=== PATIENT | male | born 1975 | race Caucasian/White ===

== ENCOUNTER → 2017-11-20 16:45 | Outpatient (CLI) | payer OTHER, SELFPAY ==
[2017-11-20 16:48] LABS: Microscopic, Urine URINE MICROSCOPIC (MICROSCOPIC)
[2017-11-20 17:12] LABS: Appearance,Urine CLEAR (Clear); Bilirubin,Urine Negative (Negative); Blood, Urine TRACE-L (Negative); Color,Urine YELLOW (Yellow); Glucose,Urine (UA) TRACE (Negative); Ketones,Urine Negative (Negative); Leukocyte Esterase,Urine 1+ (Negative); Nitrate,Urine Negative (Negative); Protein,Urine Negative (Negative); Specific Gravity, Urine 1.025 (1.005-1.030); Urobilinogen,Urine 0.2 EU/dl (0.2)
[2017-11-20 18:12] LABS: Bacteria,Urine 1+ /lpf
== END ==
PROVIDERS: PCP Family Medicine; Visit Provider Family Medicine
DX: R30.0 Dysuria (principal)
CPT/HCPCS: 81001; 87086

== ENCOUNTER → 2018-11-13 09:45 | Outpatient (CLI) | payer OTHER, SELFPAY ==
--- NOTE | 2018-11-13 | ECG_ITS ---
APPROVED REPORT Exam: Resting ECG HR:80 bpm ECG Measurements Heart Rate 80 AXES WV 170 P 9 QRSd 92 QRS 219 QT 378 T 0 QTc 435 <Conclusion> Normal sinus rhythm Right superior axis deviation Isolated q in iii Abnormal ECG Electronically signed by : Chris Abarca, 11/13/2018 17:39:16
--- NOTE | 2018-11-13 09:54 | CT_ITS ---
PROCEDURE: CT ABDOMEN PELVIS WO/W CON CLINICAL INDICATION: NEOPLASM LT KIDNEY Possible left renal mass COMPARISON: CT ABDOMEN PELVIS W CON from 11/08/2018 TECHNIQUE: IV Contrast: 75ML OPTIRAY 350 Oral Contrast none Axial images obtained with sagittal and coronal reformats. All CT scans at the facility use one or more dose reduction, viz: automated exposure control, ma/kV adjustment per patient size (including targeted exams where dose is matched to indication, i.e. head), or iterative reconstruction technique. FINDINGS: Patient came back for repeat scanning with delayed imaging for possible left renal mass. Once again there is noted some cortical lobularity of the left kidney with some faint calcification along the lower pole laterally and at least 2 stones in the lower pole of the left kidney measuring 7 and 8 mm. The exam is somewhat limited secondary to patient's body habitus. The there is contour deformity involving the left kidney that may only be secondary to scarring. A definite renal mass is not demonstrated. There is some scattered areas of decreased attenuation within the lower pole of the left kidney secondary to some mild caliectasis which does fill in on the delayed images. IMPRESSION: There is some scarring of the left kidney with some cortical calcification laterally and left nephrolithiasis. Low-density changes present in the lower pole of the left kidney are somewhat felt to be related to caliectasis. Would recommend a 3 month follow-up without and with contrast with delayed images to confirm short term stability. Dictated by: Rico Brown MD 11/13/2018 11:04 Signed by: <Electronically signed by Rico Brown MD in [facility]> 11/19/2018 07:27
[2018-11-13 10:45] LABS: Basophils # 0.1 K/mm3 (0-0.2); Basophils % 0.9 % (0.1-2.0); Eosinophils # 0.1 K/mm3 (0.0-0.4); Hematocrit 48.6 % (42.0-52.0); Hemoglobin 16.2 g/dL (14.1-18.0); Lymphocytes % 28.1 % (10-50); Mean Corpuscular HGB Conc 33.4 g/dL (31.8-35.4); Mean Corpuscular Volume 92.6 fl (80-94); Mean Platelet Volume 7.7 fl (7.4-10.4); Monocytes # 0.4 K/mm3 (0.1-1.0); Neutrophils # 4.5 K/mm3 (1.8-7.8); Neutrophils % 64.1 % (37.0-80.0); Platelet Count 271 K/mm3 (142-424); Red Blood Count 5.24 M/mm3 (4.60-6.20); Red Cell Distribution Width 13.9 % (11.5-17.5); White Blood Count 7.1 K/mm3 (4.8-10.8)
[2018-11-13 11:47] LABS: Alanine Aminotransferase 49 U/L (12-78); Albumin Level 3.5 gm/dL (3.4-5.0); Albumin/Globulin Ratio 0.9 (1.1-1.8); Alkaline Phosphatase 85 U/L (46-116); Anion Gap 11.4 mEq/L (5-15); Aspartate Amino Transferase 34 U/L (15-37); Blood Urea Nitrogen 17 mg/dL (7-18); Calcium 9.1 mg/dL (8.5-10.1); Carbon Dioxide 27 mmol/L (21.0-32.0); Chloride 98 mmol/L (98-107); Creatinine,Serum 0.93 mg/dL (0.70-1.30); Estimated Glomerular Filt Rate 88 ml/min (>60); GFR (African American) 107 ML/MIN (>60); Globulin 3.9 gm/dl (1.3-3.2); Glucose 228 mg/dL (74-106); Potassium 4.4 mmoL/L (3.5-5.1); Sodium 132 mmol/L (136-145); Total Protein,Serum 7.4 gm/dL (6.4-8.2)
== END ==
PROVIDERS: Otolaryngology; PCP Family Medicine; Visit Provider Family Medicine
DX: Z01.818 Encounter for other preprocedural examination (principal); D41.02 Neoplasm of uncertain behavior of left kidney
CPT/HCPCS: 36415; 74178; 80053; 85025; 93005; Q9967

== ENCOUNTER → 2018-11-26 14:32 | Outpatient (CLI) | payer OTHER, SELFPAY ==
--- NOTE | 2018-11-26 14:42 | CT_ITS ---
PROCEDURE: CT SOFT TISSUE NECK W CON CLINICAL HISTORY: lipoma- left neck Soft tissue mass behind the left ear at the base of the skull enlarging. Lip cancer COMPARISON: No exams were available for comparison TECHNIQUE: Oral Contrast: None IV Contrast: 75 mL Optiray 350 Axial images obtained with sagittal and coronal reformats. All CT scans at the facility use one or more dose reduction, viz: automated exposure control, ma/kV adjustment per patient size (including targeted exams where dose is matched to indication, i.e. head), or iterative reconstruction technique. FINDINGS: A BB is placed along the lateral aspect of the left neck posterior in inferior to the external ear. This velez the area of clinical concern. At this region there is some asymmetric prominence of the subcutaneous fat suggesting lipomatosis involvement. A discrete mass which is well outlined however is not identified. No adenopathy evident at this region. No soft tissue mass. There are some scattered small nodes in the neck. No abscess. The visualized parotid and submandibular glands are prominent but symmetric with no obvious mass. The epiglottis and glottic region have an unremarkable appearance. The nasopharynx is unremarkable. IMPRESSION: 1. Asymmetric prominence of the subcutaneous fat corresponding to the area of clinical concern in the left neck below and posterior to the ear suggesting lipomatosis involvement without discrete margin. 2. No dominant adenopathy, mass or abscess. Dictated by: Rico Brown MD 11/27/2018 08:03 Electronically signed by Rico Brown MD in [facility] 11/27/2018 08:03
[2018-11-26 15:18] LABS: Blood Urea Nitrogen 12 mg/dL (7-18); Creatinine,Serum 1.04 mg/dL (0.70-1.30); Estimated Glomerular Filt Rate 78 ml/min (>60); GFR (African American) 94 ML/MIN (>60)
== END ==
PROVIDERS: PCP Family Medicine; Visit Provider Otolaryngology
DX: Z01.818 Encounter for other preprocedural examination (principal); D17.0 Benign lipomatous neoplasm of skin and subcutaneous tissue of head, face and neck
CPT/HCPCS: 36415; 70491; 82565; 84520; Q9967

== ENCOUNTER → 2019-09-24 13:21 | Outpatient (CLI) | payer OTHER, SELFPAY ==
[2019-09-24 13:52] LABS: Blood Urea Nitrogen 10 mg/dl (9-20); Estimated Glomerular Filt Rate 122 ml/min (>60); GFR (African American) 148 ML/MIN (>60)
== END ==
PROVIDERS: Visit Provider Otolaryngology
DX: I89.0 Lymphedema, not elsewhere classified (principal)
CPT/HCPCS: 36415; 82565; 84520

== ENCOUNTER → 2019-09-24 13:29 | Outpatient (CLI) | payer OTHER, SELFPAY ==
--- NOTE | 2019-09-24 13:30 | CT_ITS ---
PROCEDURE: CT SOFT TISSUE NECK W CON CLINICAL HISTORY: hx malignant neoplasm Soft tissue nodule left neck, history of lip cancer COMPARISON: CT SOFT TISSUE NECK W CON from 11/26/2018 TECHNIQUE: Oral Contrast: None IV Contrast: 75 mL Optiray 350 Axial images obtained with sagittal and coronal reformats. All CT scans at the facility use one or more dose reduction, viz: automated exposure control, ma/kV adjustment per patient size (including targeted exams where dose is matched to indication, i.e. head), or iterative reconstruction technique. FINDINGS: The nasopharynx has an unremarkable appearance. There is mild prominence of the soft tissues of the hypopharynx possibly due to nondistention. This did have a similar appearance on the previous exam. Direct visualization suggested. The epiglottis and glottic region has an unremarkable appearance. There is a 3.2 x 2 cm lobulated the lesion in the left submandibular region. This is anterior to the submandibular gland. The internal density approaches that of water. There is a thin peripheral capsule/rim. This may represent a necrotic lymph node.. No other areas of adenopathy are identified. The thyroid gland has an unremarkable appearance. The lung apices are clear. There is mild mucosal thickening of the left maxillary sinus. There is a lucency in the right maxilla at the alveolar ridge measuring 7 mm and an additional lucency in the left maxilla at the alveolar ridge measuring 4 mm. These may be due to small periapical abscesses. An additional small lucency noted in the left maxilla at 3 mm. There are multiple caries IMPRESSION: Palpable abnormality corresponds to a 3 x 2 cm lobulated lesion in the left submandibular gland with internal hypodensity and a thin peripheral capsule/rim. This may represent a necrotic lymph node. Mild prominence of the soft tissues of the hypopharynx possibly due to nondistention and may be better evaluated with direct visualization. Suspect periapical abscesses of the maxilla with multiple caries Dictated by: Rico Brown MD 09/25/2019 10:56 Electronically signed by Rico Brown MD in [place] 09/25/2019 10:56
== END ==
PROVIDERS: PCP Family Medicine; Visit Provider Otolaryngology
DX: K11.20 Sialoadenitis, unspecified (principal)
CPT/HCPCS: 70491; Q9967

== ENCOUNTER → 2019-10-13 09:23 | Outpatient (CLI) | payer OTHER, SELFPAY ==
--- NOTE | 2019-10-13 09:55 | ECG_ITS ---
APPROVED REPORT Exam: Resting ECG HR:92 bpm ECG Measurements Heart Rate 92 AXES AL 162 P 20 QRSd 92 QRS 205 QT 380 T 2 QTc 469 <Conclusion> Normal sinus rhythm Right superior axis deviation Incomplete right bundle branch block Abnormal ECG Electronically signed by : Shahram Epperson, 10/15/2019 20:09:23
[2019-10-13 10:24] LABS: Basophils # 0.1 K/mm3 (0-0.2); Basophils % 1.6 % (0.1-2.0); Eosinophils # 0.2 K/mm3 (0.0-0.4); Eosinophils % 2.3 % (0.1-12.0); Hematocrit 50.2 % (42.0-52.0); Hemoglobin 17.7 g/dL (14.1-18.0); Lymphocytes # 2.3 K/mm3 (0.7-4.5); Lymphocytes % 28.5 % (10-50); Mean Corpuscular HGB Conc 35.3 g/dL (31.8-35.4); Mean Corpuscular Hemoglobin 32.2 pg (27.0-31.2); Mean Corpuscular Volume 91.3 fl (80-94); Mean Platelet Volume 8.6 fl (7.4-10.4); Monocytes # 0.4 K/mm3 (0.1-1.0); Monocytes % 4.7 % (1.7-9.3); Neutrophils # 5.2 K/mm3 (1.8-7.8); Neutrophils % 62.9 % (37.0-80.0); Platelet Count 271 K/mm3 (142-424); Red Cell Distribution Width 14.1 % (11.5-17.5); White Blood Count 8.2 K/mm3 (4.8-10.8)
[2019-10-13 11:19] LABS: Chloride 100 mmol/L (98-107); Potassium 4.2 mmoL/L (3.5-5.1); Sodium 135 mmol/L (136-145)
[2019-10-13 11:22] LABS: Anion Gap 16.2 mEq/L (5-15); Blood Urea Nitrogen 13 mg/dl (9-20); Calcium 9.5 mg/dl (8.4-10.2); Carbon Dioxide 23 mmol/L (22.0-30.0); Estimated Glomerular Filt Rate 91 ml/min (>60); GFR (African American) 110 ML/MIN (>60); Glucose 162 mg/dl (74-100)
[2019-10-13 12:53] LABS: Coronavirus 19 IgG Antibody Negative (Negative); Coronavirus 19 IgM Antibody Negative (Negative)
== END ==
LOC: LAB 09:28 → RT 09:41
PROVIDERS: PCP Family Medicine; Visit Provider Otolaryngology
DX: Z01.818 Encounter for other preprocedural examination (principal); C79.9 Secondary malignant neoplasm of unspecified site
CPT/HCPCS: 36415; 80048; 85025; 86328; 93005

== ENCOUNTER 2019-10-14 11:02 | Observation (INO) | payer OTHER, SELFPAY ==
[2019-10-12 10:13] VITALS: BMI 53.4
[2019-10-14] VITALS (19 sets, daily range): BP systolic 101–175; BP diastolic 58–88; PULSE 78–104; RESP 10–20; TEMP 36.4–36.7; O2SAT 89–98
[2019-10-14 08:19] LABS: POC Glucose,Bedside 174 (70-110)
--- NOTE | 2019-10-14 09:31 | P.PN_ITS ---
[facility] Anesthesia Checklist - Structural Data Admitted From: Home Planned Operative Procedure/s: excision neoplasm neck Consent for Planned Operative Procedure(s) Verified: Yes - Additional verifications Anesthesia Reactions: No Hx Blood Transfusions: No Blood Transfusion Reaction: No - Airway Assessment C-Spine Mobility Assessed: Yes TMJ Mobility Assessed: Yes Dentition: Poor Dentition - Neurological Assessment Level of Consciousness: Awake, Alert, Appropriate - Anesthesia Plan Anesthesia Risk discussed: Yes Anesthesia Plan: Verified ASA Class: III Anesthesia Type: General [facility] History I have reviewed the patient's past medical history: Yes Medical History: Reports:: Diabetes Mellitus Type 2, Hyperlipidemia, Hypertension, Kidney Stones Denies:: Cancer, Diabetes Mellitus Type 1, Internal Pacemaker, MRSA, Seizures *Have you ever received a pneumonia vaccine?: No *Have you received a flu vaccine this season?: No Other Medical History: Denies: Blood Transfusion Reaction Anesthesia experience/problems:: none Other Surgeries: Yes: Hernia Repair, Skin Cancer Excision, Other. No: Pacemaker Amputation: No Fractures: No - *Social History Last grade of school completed: 9th or 10th Smoking Status: Never smoker Alcohol Intake: never Substance Use Type: denies use *Occupational Status:: employed Housing: house Household Members: spouse *Travel in the last 8 weeks: None Family Hx:: Hyperlipidemia, Hypertension, No significant family history
--- NOTE | 2019-10-14 10:43 | HMH.ANESI ---
[facility] Anesthesia Record Part I Intake, IV Amount: 1,800 Estimated blood loss (mL): 0 Urine output (mL): 0 Blood Pressure: 101/62 SaO2: 92 Pulse Rate: 92 Respiratory Rate: 18 Temperature: 98 F Patient is:: Awake, Stable Stable to PACU at:: 10:40
--- NOTE | 2019-10-14 11:59 | HMH.HP ---
*Admission Date: 10/14/19 <Saadia Rees 10/14/19 12:02> *Chief complaint: left neck mass removal <Saadia Rees 10/14/19 12:02> *History of present illness: Mr. 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 He subsequently developed a swollen left submandibular gland that was concerning d/t his history of cancer of the lip. Dr. Meyers removed this gland today and pathology is pending. He wanted him admitted overnight for monitoring. <Saadia Rees 10/14/19 13:08> [facility] History I have reviewed the patient's past medical history: Yes <Saadia Rees 10/14/19 12:02> Medical History: Reports:: Cancer (squamous cell carcinoma of the lip), Diabetes Mellitus Type 2, Hyperlipidemia, Hypertension, Kidney Stones Denies:: Diabetes Mellitus Type 1, Internal Pacemaker, MRSA, Seizures <Saadia Rees 10/14/19 12:02> *Have you ever received a pneumonia vaccine?: No <Saadia Rees 10/14/19 12:02> *Have you received a flu vaccine this season?: No <Saadia Rees 10/14/19 12:02> Other Medical History: Denies: Blood Transfusion Reaction <Saadia Rees 10/14/19 12:02> Anesthesia experience/problems:: none <Saadia Rees 10/14/19 12:02> Other Surgeries: Yes: Hernia Repair, Skin Cancer Excision, Other. No: Pacemaker <Saadia Rees 10/14/19 12:02> Amputation: No <Saadia Rees 10/14/19 12:02> Fractures: No <Saadia Rees 10/14/19 12:02> - *Social History Last grade of school completed: 9th or 10th <Saadia Rees 10/14/19 12:02> Smoking Status: Never smoker <Saadia Rees 10/14/19 12:02> Alcohol Intake: never <Saadia Rees 10/14/19 12:02> Substance Use Type: denies use <Saadia Rees 10/14/19 12:02> *Occupational Status:: employed <Saadia Rees 10/14/19 12:02> Housing: house <Saadia Rees 10/14/19 12:02> Household Members: spouse <NegritaSaadia 10/14/19 12:02> *Travel in the last 8 weeks: None <BenrigoSaadia 10/14/19 12:02> Family Hx:: Hyperlipidemia, Hypertension <NegritaSaadia 10/14/19 12:02> Review of Systems - Constitutional Denies fever(s), Denies weakness <BenrigoSaadia 10/14/19 13:08> - Eyes Denies blurry vision, Denies double vision <NegritaSaadia 10/14/19 13:08> - ENT Denies nasal congestion, Denies sore throat <NegritaSaadia 10/14/19 13:08> - *Cardiovascular Denies chest pain, Denies shortness of breath, Denies rapid, pounding, or irregular heartbeat <NegritaSaadia 10/14/19 13:08> - *Respiratory Denies cough, Denies shortness of breath <NegritaSaadia 10/14/19 13:08> - *Gastrointestinal Reports nausea, Reports vomiting, Denies abdominal pain, Denies loose stools <NegritaSaadia 10/14/19 13:08> - *Genitourinary Denies difficulty urinating, Denies painful urination <NegritaSaadia 10/14/19 13:08> - *Musculoskeletal Denies joint pain <NegritaSaadia 10/14/19 13:08> - *Neurologic Denies headache(s), Denies dizziness, Denies weakness <NegritaSaadia 10/14/19 13:08> Meds Home Medications Medication Instructions Recorded Confirmed Type Glimepiride 4 mg PO DAILY 11/08/18 10/12/19 History Lisinopril/Hydrochlorothiazide 1 tab PO DAILY 11/08/18 10/14/19 History [Lisinopril-Hctz 20-25 mg Tab] Metformin HCl [Metformin HCl ER] 2,000 mg PO DAILY 11/08/18 10/14/19 History Ertugliflozin Pidolate [Steglatro] 15 mg PO DAILY 10/14/19 10/14/19 History <PatriceCarson - 10/14/19 17:20> Allergies Allergy/AdvReac Type Severity Reaction Status Date / Time Penicillins Allergy Verified 10/14/19 08:02 <Carson Ibrahim - 10/14/19 17:20> Exam Vital signs and Labs for Last 24 Hours: Temp Pulse Resp BP Pulse Ox 97.6 F 91 H 20 160/88 H 96 10/14/19 14:25 10/14/19 14:25 10/14/19 14:25 10/14/19 14:25 10/14/19 14:25 Laboratory Results - last 24 hr 10/14/19 08:10: POC Glucose 174 H 10/14/19 16:29: POC Glucose 243 H
--- NOTE | 2019-10-14 12:42 | P.OP_ITS ---
Date of procedure: 10/14/19 Pre-op Diagnosis:: 1. Morbid obesity 2. 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 Left submandibular triangle swelling 4. Diabetes type 2 5. Hypertension Post-op Diagnosis:: Same Procedure performed:: Left submandibular gland excision Surgeon:: Ramírez Meyers MD SUPERVISOR BLAST FURNACE:: Mike Najera Anesthesia: GETA Estimated blood loss (mL): 15 Operative findings:: Same Operative note:: With the patient under general anesthesia he was positioned so that access could be obtained to the left side of the neck and the left lower face. Given his morbid obesity he was very very difficult to position also extend his neck however it was done adequately and a left upper neck incision was marked out 3 cm below the mandible. The Tez was incised there was an extensive amount of adipose tissue overlying the lump in the left submandibular triangle. There was significant enlargement of the left submandibular gland as well. A lesion could be palpated in the left submandibular triangle and dissection was commenced lateral to the left submandibular gland. The anterior belly of the sternomastoid muscle was identified. The left facial artery was identified and ligated. The lump was contained within the submandibular gland and the gland was gradually mobilized. The mass was contained within the anterior middle portion of the gland. It was a cystic lesion and it was mobilized and resected along with the anterior and middle portions of the left submandibular gland. The lingual nerve was identified and preserved. All bleeding was stopped with bipolar cautery and/or ligation and blood loss was less than 20 cc. The specimen was removed and submitted. The wound was thoroughly irrigated. All the bleeding was stopped with cautery. Surgicel snow was placed in the anterior and deep component of the defect. The incision was then closed with 2-0 Vicryl on the platysma and subcutaneous layer. 2-0 Vicryl was used in a subcuticular fashion to close the subdermal area and a Dermabond dressing was applied. A 10 Tone-Jeff drain was placed before the final closure and hooked to suction. There was no active bleeding at the end of the procedure. Dressings were applied and the patient was sent to recovery in good general condition. The patient tolerated the procedure well and was sent to the floor for recovery. Condition: stable Disposition: PACU Complications:: None
--- NOTE | 2019-10-14 13:20 | HMH.PHAINT ---
HOME MEDICATION RECONCILIATION COMPLETED USING LIST FROM HOME PHARMACY
--- NOTE | 2019-10-14 13:21 | HMH.PHAVTE ---
[facility] Pharmacy VTE Monitoring - Patient Demographics Admission date: 10/14/19 Report Date: 10/14/19 Time: 13:21 Allergies/Adverse Reactions: Patient Allergies Penicillins Allergy (Verified 10/14/19 08:02) Height: 1.75 m Weight: 164.2 kg Patient Problems: Current Active Problems History of submandibular gland removal (Acute) Hypertension (Chronic) Hyperlipidemia (Chronic) Type 2 diabetes mellitus (Chronic) - VTE Risk Was VTE Risk Assessment Performed: No VTE Score: 4 VTE Risk Level: Low Risk Clinical Trial Participant: No - Prophylaxis VTE Prophylaxis Ordered?: Yes Types of VTE Prophylaxis: TEDS Knee High Location of Applied Device: Not Applicable
[2019-10-14 16:44] LABS: POC Glucose,Bedside 243 (70-110)
--- NOTE | 2019-10-14 17:23 | PC.NURSE ---
New admit today from PACU. Pt had a left resection of submandibular lymph gland. Dr. Meyers reports that it appears to be a benign cyst. Left neck RACHNA drain to high wall suction noted. Small amount of sanguenous drainage noted. Pain and nausea are his biggest issues. Pt has had 3 episodes of vomiting this shift. Attempted a full liquid diet but immediately got nauseated. Left neck dressing is CDI. LR infusing @ 25mL/hr. Will sit on side of bed to use urinal.
[2019-10-14 20:58] LABS: POC Glucose,Bedside 220 (70-110)
--- NOTE | 2019-10-14 22:20 | PC.NURSE ---
275 ML URINE OUTPUT NOTED DARK YELLOW AND CLEAR, PER URINAL. 200 ML GREEN EMESIS NOTED PER EMESIS BAG.
[2019-10-15] VITALS: BP 122/70; PULSE 100; RESP 16; TEMP 36.4; O2SAT 92
[2019-10-15 05:04] VITALS: BP 120/70; PULSE 92; RESP 18; TEMP 36.4; O2SAT 96
[2019-10-15 05:06] VITALS: BMI 52.2
--- NOTE | 2019-10-15 05:46 | HMH.ANESII ---
[facility] Anesthesia Record Part II Discharge Time: 11:10 Destination: Medical Surgical Department PACU nurse assessment reviewed?: Yes Patient Condition:: Good Anesthesia Complications:: None Swallowing reflex intact?: Yes Cyanosis?: No Blood Pressure: 111/67 Pulse Rate: 85 Temperature: 98 F Mental Status: Alert & Oriented Pain level:: 0 Nausea and/or vomitting:: None Intake, IV Amount: 0
[2019-10-15 05:47] VITALS: BP 111/67; PULSE 85; TEMP 36.6
--- NOTE | 2019-10-15 06:51 | PC.NURSE ---
0645-RACHNA drain pulled at this time. No bleeding noted. telfa/tegaderm dressing applied.
[2019-10-15 08:00] VITALS: BP 142/98; PULSE 90; RESP 20; TEMP 36.4; O2SAT 94
--- NOTE | 2019-10-15 08:17 | HMH.ACPN2 ---
<Saadia Rees - Last Filed: 10/15/19 08:17> Internal Medicine - PN: Subj *Date: 10/15/19 *Time: 08:17 Interval history: Patient is feeling better this morning. He slept decently last night after getting Phenergan. He states Phenergan works much better for nausea and vomiting than Zofran. His pain is controlled. His drain was removed this morning and is anxious to go home. Exam Vital signs and Labs for Last 24 Hours: Temp Pulse Resp BP Pulse Ox 98 F 85 18 111/67 96 10/15/19 05:47 10/15/19 05:47 10/15/19 05:04 10/15/19 05:47 10/15/19 05:04 Laboratory Results - last 24 hr 10/14/19 08:10: POC Glucose 174 H 10/14/19 16:29: POC Glucose 243 H 10/14/19 20:39: POC Glucose 220 H I & O for Last 24 hours: Intake & Output 10/12/19 10/13/19 10/14/19 10/15/19 11:59 11:59 11:59 11:59 Intake Total 1800 / 1800 413 / 413 Output Total 2481 / 2481 Balance 1800 / 1800 -2067 / -2067 Weight 362 lb 352 lb 6 oz - Constitutional no acute distress - *Routine Respiratory Exam Present: CTA bilaterally - *Routine Cardiovascular Exam Present: RRR - *Routine Abdominal Exam Present: soft, normoactive bowel sounds. Absent: tenderness - *Routine Skin Exam Present: warm. Absent: rash Comments: dressing in place on left side of neck, drain has been removed - *Routine Neurological Exam Present: alert, oriented X3 Assessment and Plan (1) History of submandibular gland removal Current visit: Yes Status: Acute Category: Surgical Code(s): Z98.890 - Other specified postprocedural states; Z90.89 - Acquired absence of other organs (2) Hypertension Current visit: Yes Status: Chronic Category: Medical Code(s): I10 - Essential (primary) hypertension (3) Hyperlipidemia Current visit: Yes Status: Chronic Category: Medical Code(s): E78.5 - Hyperlipidemia, unspecified (4) Type 2 diabetes mellitus Current visit: Yes Status: Chronic Category: Medical Code(s): E11.9 - Type 2 diabetes mellitus without complications (5) Morbid obesity Current visit: Yes Status: Acute Category: Medical Code(s): E66.01 - Morbid (severe) obesity due to excess calories (6) Vomiting Current visit: Yes Status: Acute Category: Medical Code(s): R11.10 - Vomiting, unspecified - Assessment and plan all Dx Assessment and Plan for all problems:: Patient has done well postop. Possible discharge home today. <Carson Ibrahim - Last Filed: 10/15/19 08:31> Internal Medicine - PN: Subj *Date: 10/15/19 *Time: 08:31 Exam Vital signs and Labs for Last 24 Hours: Temp Pulse Resp BP Pulse Ox 98 F 85 18 111/67 96 10/15/19 05:47 10/15/19 05:47 10/15/19 05:04 10/15/19 05:47 10/15/19 05:04 Laboratory Results - last 24 hr 10/14/19 16:29: POC Glucose 243 H 10/14/19 20:39: POC Glucose 220 H I & O for Last 24 hours: Intake & Output 10/12/19 10/13/19 10/14/19 10/15/19 23:59 23:59 23:59 23:59 Intake Total 1937 / 1937 276 / 276 Output Total 1579 / 1829 902 / 902 Balance 358 / 108 -626 / -626 Weight 362 lb 352 lb 6 oz Assessment and Plan (1) History of submandibular gland removal Current visit: Yes Status: Acute Category: Surgical Code(s): Z98.890 - Other specified postprocedural states; Z90.89 - Acquired absence of other organs (2) Hypertension Current visit: Yes Status: Chronic Category: Medical Code(s): I10 - Essential (primary) hypertension (3) Hyperlipidemia Current visit: Yes Status: Chronic Category: Medical Code(s): E78.5 - Hyperlipidemia, unspecified (4) Type 2 diabetes mellitus Current visit: Yes Status: Chronic Category: Medical Code(s): E11.9 - Type 2 diabetes mellitus without complications (5) Morbid obesity Current visit: Yes Status: Acute Category: Medical Code(s): E66.01 - Morbid (severe) obesity due to excess calories (6) Vomiting Current visit: Yes Status: Acute Naomi
--- NOTE | 2019-10-15 10:37 | HMH.DCSUM ---
General - General Admission date:: 10/14/19 Discharge date: 10/15/19 HPI HPI: Mr. 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 He subsequently developed a swollen left submandibular gland that was concerning d/t his history of cancer of the lip. Dr. Meyers removed this gland today and pathology is pending. He wanted him admitted overnight for monitoring. Hospital Course Hospital Course: The patient was initially started on Lortab for pain and began vomiting after taking this. He received some Zofran and was started on morphine. His pain improved. He was able to eat a full liquid diet without difficulty. He remained slightly nauseated and received some Phenergan. He stated this worked much better than the Zofran. He was kept overnight and his drain was removed on 10/15/2019. He was stable to be discharged home with a new prescription for Phenergan. He will follow-up with Dr. Meyers for pathology results. Objective Vital signs: Temp Pulse Resp BP Pulse Ox 97.5 F L 90 20 142/98 H 94 L 10/15/19 08:00 10/15/19 08:00 10/15/19 08:00 10/15/19 08:00 10/15/19 08:00 Narrative: - Constitutional no acute distress - *Routine HEENT Exam Head: Present: normocephalic Eye: Present: EOMI, PERRL ENT: Present: mucous membranes dry - *Routine Neck Exam Present: supple. Absent: lymphadenopathy Comments: clean dry dressing over the left side of the neck with drain tube in place - *Routine Respiratory Exam Present: CTA bilaterally - *Routine Cardiovascular Exam Present: RRR - *Routine Abdominal Exam Present: soft, normoactive bowel sounds. Absent: tenderness - *Routine Extremities Exam Absent: cyanosis, clubbing, edema - *Routine Skin Exam Present: warm. Absent: rash - *Routine Neurological Exam Present: alert, oriented X3 Results Labs on day of discharge: Labs from last 24 hours 10/14/19 10/14/19 20:39 16:29 POC Glucose 220 H 243 H DS: Diagnosis - Discharge Diagnosis (1) History of submandibular gland removal Status: Acute (2) Hypertension Status: Chronic (3) Hyperlipidemia Status: Chronic (4) Type 2 diabetes mellitus Status: Chronic (5) Morbid obesity Status: Acute (6) Vomiting Status: Acute Discharge Plan - Patient Discharge Instructions ACTIVITY: Continue current activity DIET: continue same diet Patient Instructions: How to Care for a Surgical Wound, High Cholesterol, Type 2 Diabetes, DI for Skin Lesion Removal, DI for High Blood Pressure, DI for Surgical Site Infection - Follow up Plan Follow up with: Ramírez Meyers MD [Staff Physician] - 10/21/19 3:15 pm Disposition: Home, Self-Half-Way Medications: Home Medications Medication Instructions Recorded Confirmed Type Glimepiride 4 mg PO DAILY 11/08/18 10/12/19 History Lisinopril/Hydrochlorothiazide 1 tab PO DAILY 11/08/18 10/14/19 History [Lisinopril-Hctz 20-25 mg Tab] Metformin HCl [Metformin HCl ER] 2,000 mg PO DAILY 11/08/18 10/14/19 History Ertugliflozin Pidolate [Steglatro] 15 mg PO DAILY 10/14/19 10/14/19 History Promethazine HCl 12.5 mg PO Q6HP PRN #12 tab 10/15/19 Rx Prescriptions/Medication Reconciliation: New Promethazine HCl 12.5 mg PO Q6HP PRN #12 tab PRN Reason: Nausea And Vomiting Continued Metformin HCl [Metformin HCl ER] 2,000 mg PO DAILY Lisinopril/Hydrochlorothiazide [Lisinopril-Hctz 20-25 mg Tab] 1 tab PO DAILY Glimepiride 4 mg PO DAILY Ertugliflozin Pidolate [Steglatro] 15 mg PO DAILY - Problem Reconciliation Problems Reviewed?: Yes
[2019-10-19 08:28] LABS: POC Glucose,Bedside 524 (70-110)
[2019-10-19 08:28] LABS: POC Glucose,Bedside 183 (70-110)
== END 2019-10-15 09:30 | disposition home or self-care (01) ==
LOC: 2ND 11:05
PROVIDERS: Admitting Provider Family Medicine; PCP Family Medicine; Visit Provider Otolaryngology
PROC: (CPT 42440; principal; 2019-10-14 08:45)
DX: C08.0 Malignant neoplasm of submandibular gland (principal); E11.9 Type 2 diabetes mellitus without complications; I10 Essential (primary) hypertension; E66.01 Morbid (severe) obesity due to excess calories; Z68.43 Body mass index [BMI] 50.0-59.9, adult
CPT/HCPCS: 42440; 82962; 96374; 96375; G0378; J2405

== ENCOUNTER → 2019-12-06 15:42 | Outpatient (CLI) | payer OTHER, SELFPAY ==
[2019-12-06 16:02] LABS: Basophils # 0.1 K/mm3 (0-0.2); Basophils % 1.3 % (0.1-2.0); Eosinophils # 0.3 K/mm3 (0.0-0.4); Eosinophils % 2.7 % (0.1-12.0); Hematocrit 52.2 % (42.0-52.0); Lymphocytes # 2.7 K/mm3 (0.7-4.5); Lymphocytes % 27.1 % (10-50); Mean Corpuscular HGB Conc 34.5 g/dL (31.8-35.4); Mean Corpuscular Hemoglobin 31.5 pg (27.0-31.2); Mean Corpuscular Volume 91.1 fl (80-94); Mean Platelet Volume 8.6 fl (7.4-10.4); Monocytes # 0.6 K/mm3 (0.1-1.0); Monocytes % 5.7 % (1.7-9.3); Neutrophils # 6.3 K/mm3 (1.8-7.8); Neutrophils % 63.2 % (37.0-80.0); Platelet Count 269 K/mm3 (142-424); Red Blood Count 5.74 M/mm3 (4.60-6.20)
[2019-12-06 17:27] LABS: Alanine Aminotransferase 55 U/L (12-78); Albumin Level 4.5 g/dl (3.5-5.0); Albumin/Globulin Ratio 1.3 (1.1-1.8); Alkaline Phosphatase 109 U/L (38-126); Anion Gap 17.9 mEq/L (5-15); Aspartate Amino Transferase 64 U/L (17-59); Bilirubin,Total 1.3 mg/dl (0.2-1.3); Blood Urea Nitrogen 12 mg/dl (9-20); Carbon Dioxide 25 mmol/L (22.0-30.0); Chloride 98 mmol/L (98-107); Estimated Glomerular Filt Rate 105 ml/min (>60); GFR (African American) 126 ML/MIN (>60); Globulin 3.6 g/dL (1.3-3.2); Glucose 114 mg/dl (74-100); Potassium 3.9 mmoL/L (3.5-5.1); Sodium 137 mmol/L (136-145); Total Protein,Serum 8.1 g/dl (6.3-8.2)
[2019-12-06 20:57] LABS: Hemoglobin 18.1 g/dL (14.1-18.0)
== END ==
PROVIDERS: Visit Provider Internal Medicine Medical Oncology
DX: Z85.828 Personal history of other malignant neoplasm of skin (principal)
CPT/HCPCS: 36415; 80053; 85025

== ENCOUNTER 2019-12-08 09:35 | Outpatient (CLI) | payer OTHER, SELFPAY ==
[2019-12-08] VITALS (13 sets, daily range): BP systolic 122–157; BP diastolic 70–89; PULSE 84–91; RESP 18; TEMP 36.2; O2SAT 97–98
== END 2019-12-08 16:47 | disposition home or self-care (01) ==
LOC: INF 09:39
PROVIDERS: Visit Provider Internal Medicine Medical Oncology
DX: C76.0 Malignant neoplasm of head, face and neck (principal)
CPT/HCPCS: 96413; 96415; J9060; Q0166

== ENCOUNTER → 2019-12-15 14:27 | Outpatient (CLI) | payer OTHER, SELFPAY ==
[2019-12-15 14:45] LABS: Basophils % 0.3 % (0.1-2.0); Eosinophils # 0.2 K/mm3 (0.0-0.4); Eosinophils % 1.5 % (0.1-12.0); Hematocrit 50.7 % (42.0-52.0); Lymphocytes # 1.9 K/mm3 (0.7-4.5); Lymphocytes % 16.5 % (10-50); Mean Corpuscular HGB Conc 35.5 g/dL (31.8-35.4); Mean Corpuscular Hemoglobin 31.9 pg (27.0-31.2); Mean Corpuscular Volume 89.8 fl (80-94); Mean Platelet Volume 8.7 fl (7.4-10.4); Monocytes # 0.4 K/mm3 (0.1-1.0); Monocytes % 3.1 % (1.7-9.3); Neutrophils % 78.5 % (37.0-80.0); Platelet Count 280 K/mm3 (142-424); Red Blood Count 5.65 M/mm3 (4.60-6.20); White Blood Count 11.5 K/mm3 (4.8-10.8)
[2019-12-15 15:30] LABS: Chloride 96 mmol/L (98-107); Potassium 3.7 mmoL/L (3.5-5.1); Sodium 130 mmol/L (136-145)
[2019-12-15 15:33] LABS: Alanine Aminotransferase 103 U/L (12-78); Albumin Level 3.9 g/dl (3.5-5.0); Albumin/Globulin Ratio 1.3 (1.1-1.8); Alkaline Phosphatase 85 U/L (38-126); Anion Gap 15.7 mEq/L (5-15); Aspartate Amino Transferase 59 U/L (17-59); Blood Urea Nitrogen 20 mg/dl (9-20); Carbon Dioxide 22 mmol/L (22.0-30.0); Estimated Glomerular Filt Rate 105 ml/min (>60); GFR (African American) 126 ML/MIN (>60); Total Protein,Serum 6.9 g/dl (6.3-8.2)
[2019-12-15 15:34] LABS: Calcium 9.8 mg/dl (8.4-10.2); Glucose 294 mg/dl (74-100)
== END ==
PROVIDERS: Visit Provider Internal Medicine Medical Oncology
DX: C76.0 Malignant neoplasm of head, face and neck (principal)
CPT/HCPCS: 36415; 80053; 85025

== ENCOUNTER → 2019-12-28 15:45 | Outpatient (CLI) | payer OTHER, SELFPAY ==
[2019-12-28 16:13] LABS: Basophils # 0.1 K/mm3 (0-0.2); Eosinophils # 0.2 K/mm3 (0.0-0.4); Eosinophils % 3.4 % (0.1-12.0); Hematocrit 50.9 % (42.0-52.0); Hemoglobin 17.2 g/dL (14.1-18.0); Lymphocytes # 1.4 K/mm3 (0.7-4.5); Lymphocytes % 29.6 % (10-50); Mean Corpuscular HGB Conc 33.8 g/dL (31.8-35.4); Mean Corpuscular Hemoglobin 31.4 pg (27.0-31.2); Mean Corpuscular Volume 92.8 fl (80-94); Mean Platelet Volume 7.7 fl (7.4-10.4); Monocytes # 0.5 K/mm3 (0.1-1.0); Monocytes % 9.9 % (1.7-9.3); Neutrophils # 2.6 K/mm3 (1.8-7.8); Platelet Count 218 K/mm3 (142-424); Red Blood Count 5.48 M/mm3 (4.60-6.20); White Blood Count 4.6 K/mm3 (4.8-10.8)
[2019-12-28 17:01] LABS: Chloride 99 mmol/L (98-107); Sodium 137 mmol/L (136-145)
[2019-12-28 17:04] LABS: Alanine Aminotransferase 81 U/L (12-78); Albumin Level 4.3 g/dl (3.5-5.0); Albumin/Globulin Ratio 1.3 (1.1-1.8); Alkaline Phosphatase 85 U/L (38-126); Aspartate Amino Transferase 79 U/L (17-59); Blood Urea Nitrogen 12 mg/dl (9-20); Carbon Dioxide 27 mmol/L (22.0-30.0); Estimated Glomerular Filt Rate 105 ml/min (>60); GFR (African American) 126 ML/MIN (>60); Globulin 3.2 g/dL (1.3-3.2); Total Protein,Serum 7.5 g/dl (6.3-8.2)
[2019-12-28 17:05] LABS: Calcium 9.6 mg/dl (8.4-10.2); Glucose 107 mg/dl (74-100)
== END ==
PROVIDERS: Visit Provider Internal Medicine Medical Oncology
DX: C00.1 Malignant neoplasm of external lower lip (principal); C00-D49 Neoplasms; K11.8 Other diseases of salivary glands
CPT/HCPCS: 36415; 80053; 85025

== ENCOUNTER 2019-12-29 09:25 | Outpatient (CLI) | payer OTHER, SELFPAY ==
[2019-12-29] VITALS (16 sets, daily range): BP systolic 98–124; BP diastolic 59–78; PULSE 70–81; RESP 18–20; TEMP 36.2; O2SAT 95
== END 2019-12-29 16:19 | disposition home or self-care (01) ==
LOC: INF 09:27
PROVIDERS: Visit Provider Internal Medicine Medical Oncology
DX: Z51.11 Encounter for antineoplastic chemotherapy (principal); C76.0 Malignant neoplasm of head, face and neck
CPT/HCPCS: 96413; 96415; J9060; Q0166

== ENCOUNTER → 2020-01-06 11:30 | Outpatient (CLI) | payer OTHER, SELFPAY ==
[2020-01-06 11:49] LABS: Basophils # 0.1 K/mm3 (0-0.2); Basophils % 1.5 % (0.1-2.0); Eosinophils # 0.1 K/mm3 (0.0-0.4); Eosinophils % 1.2 % (0.1-12.0); Hematocrit 50.8 % (42.0-52.0); Hemoglobin 17.3 g/dL (14.1-18.0); Lymphocytes # 1.3 K/mm3 (0.7-4.5); Lymphocytes % 18.3 % (10-50); Mean Corpuscular Hemoglobin 31.2 pg (27.0-31.2); Mean Corpuscular Volume 91.9 fl (80-94); Mean Platelet Volume 8.5 fl (7.4-10.4); Monocytes # 0.4 K/mm3 (0.1-1.0); Monocytes % 6.2 % (1.7-9.3); Neutrophils # 5.2 K/mm3 (1.8-7.8); Neutrophils % 72.8 % (37.0-80.0); Platelet Count 223 K/mm3 (142-424); Red Blood Count 5.53 M/mm3 (4.60-6.20); Red Cell Distribution Width 13.9 % (11.5-17.5); White Blood Count 7.1 K/mm3 (4.8-10.8)
[2020-01-06 11:56] LABS: Potassium 3.6 mmoL/L (3.5-5.1); Sodium 136 mmol/L (136-145)
[2020-01-06 11:58] LABS: Blood Urea Nitrogen 48 mg/dl (9-20)
[2020-01-06 11:59] LABS: Alanine Aminotransferase 122 U/L (12-78); Albumin Level 4.6 g/dl (3.5-5.0); Albumin/Globulin Ratio 1.4 (1.1-1.8); Alkaline Phosphatase 72 U/L (38-126); Aspartate Amino Transferase 81 U/L (17-59); Bilirubin,Total 1.3 mg/dl (0.2-1.3); Carbon Dioxide 22 mmol/L (22.0-30.0); Estimated Glomerular Filt Rate 31 ml/min (>60); GFR (African American) 37 ML/MIN (>60); Globulin 3.3 g/dL (1.3-3.2); Glucose 86 mg/dl (74-100); Total Protein,Serum 7.9 g/dl (6.3-8.2)
[2020-01-06 13:43] LABS: Anion Gap 18.6 mEq/L (5-15); Chloride 99 mmol/L (98-107)
== END ==
PROVIDERS: Visit Provider Internal Medicine Medical Oncology
DX: C76.0 Malignant neoplasm of head, face and neck (principal)
CPT/HCPCS: 36415; 80053; 85025

== ENCOUNTER 2020-01-07 11:25 | Outpatient (CLI) | payer OTHER, SELFPAY ==
[2020-01-07 11:45] VITALS: BP 105/67; PULSE 78; RESP 18; TEMP 35.8; O2SAT 100
[2020-01-07 12:45] VITALS: BP 114/64; PULSE 74; RESP 20
== END 2020-01-07 12:50 | disposition home or self-care (01) ==
LOC: INF 11:26
PROVIDERS: Visit Provider Internal Medicine Medical Oncology
DX: C76.0 Malignant neoplasm of head, face and neck (principal)
CPT/HCPCS: 96360

== ENCOUNTER 2020-01-10 11:34 | Outpatient (CLI) | payer OTHER, SELFPAY ==
[2020-01-10 11:36] VITALS: BMI 48.4
[2020-01-10 11:55] VITALS: BP 110/65; PULSE 79; RESP 18; TEMP 36.6; O2SAT 97
[2020-01-10 12:06] LABS: Chloride 94 mmol/L (98-107); Potassium 3.8 mmoL/L (3.5-5.1); Sodium 130 mmol/L (136-145)
[2020-01-10 12:09] LABS: Blood Urea Nitrogen 35 mg/dl (9-20); Creatinine Clearance Estimated 82 mL/min (50-200); Estimated Glomerular Filt Rate 72 ml/min (>60); GFR (African American) 88 ML/MIN (>60)
[2020-01-10 12:10] LABS: Anion Gap 18.8 mEq/L (5-15); Calcium 9.7 mg/dl (8.4-10.2); Carbon Dioxide 21 mmol/L (22.0-30.0); Glucose 141 mg/dl (74-100)
[2020-01-10 12:25] VITALS: BP 105/68; PULSE 80; RESP 16; O2SAT 97
[2020-01-10 12:55] VITALS: BP 112/64; PULSE 74; RESP 16; TEMP 36.6; O2SAT 98
== END 2020-01-10 13:00 | disposition home or self-care (01) ==
LOC: INF 11:34
PROVIDERS: Visit Provider Internal Medicine Medical Oncology
DX: C76.0 Malignant neoplasm of head, face and neck (principal)
CPT/HCPCS: 80048; 96360

== ENCOUNTER → 2020-02-02 15:28 | Outpatient (CLI) | payer OTHER, SELFPAY ==
[2020-02-02 16:00] LABS: Basophils % 0.7 % (0.1-2.0); Eosinophils # 0.1 K/mm3 (0.0-0.4); Eosinophils % 2.2 % (0.1-12.0); Hemoglobin 13.4 g/dL (14.1-18.0); Lymphocytes % 25.4 % (10-50); Mean Corpuscular HGB Conc 33.4 g/dL (31.8-35.4); Mean Corpuscular Hemoglobin 30.4 pg (27.0-31.2); Monocytes # 0.2 K/mm3 (0.1-1.0); Neutrophils # 2.6 K/mm3 (1.8-7.8); Neutrophils % 65.7 % (37.0-80.0); Platelet Count 188 K/mm3 (142-424); Red Blood Count 4.39 M/mm3 (4.60-6.20); Red Cell Distribution Width 16.2 % (11.5-17.5)
[2020-02-02 17:00] LABS: Alanine Aminotransferase 58 U/L (12-78); Albumin/Globulin Ratio 1.3 (1.1-1.8); Alkaline Phosphatase 73 U/L (38-126); Anion Gap 13.7 mEq/L (5-15); Aspartate Amino Transferase 47 U/L (17-59); Blood Urea Nitrogen 15 mg/dl (9-20); Calcium 9.7 mg/dl (8.4-10.2); Carbon Dioxide 24 mmol/L (22.0-30.0); Chloride 104 mmol/L (98-107); Estimated Glomerular Filt Rate 72 ml/min (>60); GFR (African American) 88 ML/MIN (>60); Glucose 124 mg/dl (74-100); Potassium 3.7 mmoL/L (3.5-5.1); Sodium 138 mmol/L (136-145)
== END ==
PROVIDERS: Visit Provider Internal Medicine Medical Oncology
DX: C76.0 Malignant neoplasm of head, face and neck (principal)
CPT/HCPCS: 36415; 80053; 85025

== ENCOUNTER → 2020-03-30 11:32 | Outpatient (CLI) | payer OTHER, SELFPAY ==
[2020-03-30 12:02] LABS: Basophils # 0.1 K/mm3 (0-0.2); Basophils % 1.4 % (0.1-2.0); Eosinophils # 0.2 K/mm3 (0.0-0.4); Hematocrit 40.7 % (42.0-52.0); Hemoglobin 12.9 g/dL (14.1-18.0); Lymphocytes # 1.2 K/mm3 (0.7-4.5); Lymphocytes % 25.2 % (10-50); Mean Corpuscular HGB Conc 31.6 g/dL (31.8-35.4); Mean Corpuscular Hemoglobin 31.1 pg (27.0-31.2); Mean Corpuscular Volume 98.5 fl (80-94); Mean Platelet Volume 7.2 fl (7.4-10.4); Monocytes # 0.2 K/mm3 (0.1-1.0); Monocytes % 4.3 % (1.7-9.3); Neutrophils # 2.9 K/mm3 (1.8-7.8); Neutrophils % 64.1 % (37.0-80.0); Platelet Count 362 K/mm3 (142-424); Red Blood Count 4.13 M/mm3 (4.60-6.20); Red Cell Distribution Width 16.2 % (11.5-17.5); White Blood Count 4.6 K/mm3 (4.8-10.8)
[2020-03-30 12:32] LABS: Alanine Aminotransferase 22 U/L (12-78); Albumin Level 3.9 g/dl (3.5-5.0); Albumin/Globulin Ratio 1.2 (1.1-1.8); Alkaline Phosphatase 75 U/L (38-126); Anion Gap 11.7 mEq/L (5-15); Aspartate Amino Transferase 35 U/L (17-59); Bilirubin,Total 1.2 mg/dl (0.2-1.3); Blood Urea Nitrogen 8 mg/dl (9-20); Calcium 9.2 mg/dl (8.4-10.2); Carbon Dioxide 26 mmol/L (22.0-30.0); Chloride 103 mmol/L (98-107); Estimated Glomerular Filt Rate 104 ml/min (>60); GFR (African American) 126 ML/MIN (>60); Globulin 3.3 g/dL (1.3-3.2); Glucose 130 mg/dl (74-100); Potassium 3.7 mmoL/L (3.5-5.1); Sodium 137 mmol/L (136-145); Total Protein,Serum 7.2 g/dl (6.3-8.2)
== END ==
PROVIDERS: Visit Provider Internal Medicine Medical Oncology
DX: C76.0 Malignant neoplasm of head, face and neck (principal)
CPT/HCPCS: 36415; 80053; 85025

== ENCOUNTER 2020-05-11 15:00 | Outpatient (RCR) | payer OTHER, SELFPAY ==
--- NOTE | 2020-04-06 15:22 | HMH.PTOPWND ---
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 He reports no c/o pain currently, but does have intermittent sharp, shooting pains in the L side of his jaw . He reports 28 radiation treatments, and 2 chemo treatments. He reports no c/o difficulty with swallowing or breathing. Subjective Subjective No tenderness to palpation at this time, but noticable puffy edema to L side of the jaw line and chin. Lymphedema Eval Classification of Lymphedema Secondary Lymphedema Yes Stemmer's sign Stemmer's Sign no Stage of Lymphedema Lymphedema stages Stage I (Pitting edema, reduces w/ elevation, no fibrosis) Skin Changes Dry Skin Yes Redness Yes Other Changes Yes: decreased hair growth Radiation Therapy Has received radiation therapy yes Chemo Therapy Has received chemo therapy yes Affected Extremities Areas Affected by Lymphedema/Edema Head/Neck Manual Lymphatic Drainage Treatment Area MLD Treatment Area Head/Neck Wound Problems/Impairments Impairments Problems/Impairmments Increased Edema,Lymphedema Present,Subjective C/O Pain, Impaired Self Care/Self Management Prognosis Rehab Potential Good Clinical Impression Consistent with Diagnosis Yes Short Term Goals Number of Weeks 4 Decrease Edema Yes Patient to Understand Lymphedema Yes Treatment and Exercises [employer] Goals Number of Weeks 8 Decrease Lymphedema Yes Decrease Subjective C/O Pain Yes: 0/10 Patient to be Ind w/ HEP Yes Patient to be Ind w/ [place] Yes Compression Garments Patient to Adhere Lymphedema Precautions Yes Outpatient Therapy Plan of Care Treatment Plan May Include Therapeutic Exercise Including Home Yes
== END 2020-05-11 15:05 | disposition home or self-care (01) ==
LOC: PT 15:00
PROVIDERS: PCP Family Medicine; Visit Provider Internal Medicine Medical Oncology
DX: C76.0 Malignant neoplasm of head, face and neck (principal)
CPT/HCPCS: 97110; 97140; 97162; 97760

== ENCOUNTER → 2020-06-08 13:20 | Outpatient (CLI) | payer OTHER, SELFPAY ==
[2020-06-08 13:56] LABS: Basophils # 0.1 K/mm3 (0-0.2); Eosinophils # 0.2 K/mm3 (0.0-0.4); Eosinophils % 2.2 % (0.1-12.0); Hematocrit 49.1 % (42.0-52.0); Hemoglobin 16.7 g/dL (14.1-18.0); Lymphocytes # 1.6 K/mm3 (0.7-4.5); Lymphocytes % 23.3 % (10-50); Mean Corpuscular Hemoglobin 30.8 pg (27.0-31.2); Mean Corpuscular Volume 90.6 fl (80-94); Mean Platelet Volume 8.4 fl (7.4-10.4); Monocytes # 0.3 K/mm3 (0.1-1.0); Monocytes % 4.9 % (1.7-9.3); Neutrophils # 4.8 K/mm3 (1.8-7.8); Neutrophils % 68.5 % (37.0-80.0); Platelet Count 205 K/mm3 (142-424); Red Blood Count 5.42 M/mm3 (4.60-6.20); Red Cell Distribution Width 13.9 % (11.5-17.5)
[2020-06-08 14:34] LABS: Alanine Aminotransferase 22 U/L (12-78); Albumin Level 4.4 g/dl (3.5-5.0); Albumin/Globulin Ratio 1.3 (1.1-1.8); Alkaline Phosphatase 91 U/L (38-126); Anion Gap 14.2 mEq/L (5-15); Aspartate Amino Transferase 27 U/L (17-59); Bilirubin,Total 0.9 mg/dl (0.2-1.3); Blood Urea Nitrogen 13 mg/dl (9-20); Calcium 9.8 mg/dl (8.4-10.2); Carbon Dioxide 24 mmol/L (22.0-30.0); Chloride 101 mmol/L (98-107); Estimated Glomerular Filt Rate 104 ml/min (>60); GFR (African American) 126 ML/MIN (>60); Globulin 3.3 g/dL (1.3-3.2); Glucose 235 mg/dl (74-100); Potassium 4.2 mmoL/L (3.5-5.1); Sodium 135 mmol/L (136-145); Total Protein,Serum 7.7 g/dl (6.3-8.2)
[2020-06-08 15:03] LABS: Thyroid Stimulating Hormone 1.84 uIU/mL (0.465-4.68)
[2020-06-08 15:38] LABS: Vitamin B12 403 pg/mL (239-931)
== END ==
PROVIDERS: Visit Provider Internal Medicine Medical Oncology
DX: C76.0 Malignant neoplasm of head, face and neck (principal)
CPT/HCPCS: 36415; 80053; 82607; 82746; 84443; 85025

== ENCOUNTER → 2020-09-04 10:22 | Outpatient (CLI) | payer OTHER, SELFPAY ==
[2020-09-04 10:35] LABS: Basophils # 0.1 K/mm3 (0-0.2); Basophils % 0.9 % (0.1-2.0); Eosinophils # 0.2 K/mm3 (0.0-0.4); Eosinophils % 2.4 % (0.1-12.0); Hematocrit 49.4 % (42.0-52.0); Hemoglobin 17.2 g/dL (14.1-18.0); Lymphocytes # 1.5 K/mm3 (0.7-4.5); Lymphocytes % 17.2 % (10-50); Mean Corpuscular HGB Conc 34.8 g/dL (31.8-35.4); Mean Corpuscular Hemoglobin 31.3 pg (27.0-31.2); Mean Platelet Volume 8.4 fl (7.4-10.4); Monocytes # 0.4 K/mm3 (0.1-1.0); Monocytes % 4.8 % (1.7-9.3); Neutrophils # 6.4 K/mm3 (1.8-7.8); Neutrophils % 74.7 % (37.0-80.0); Platelet Count 238 K/mm3 (142-424); Red Blood Count 5.48 M/mm3 (4.60-6.20); Red Cell Distribution Width 14.8 % (11.5-17.5); White Blood Count 8.5 K/mm3 (4.8-10.8)
[2020-09-04 10:45] LABS: Chloride 103 mmol/L (98-107); Potassium 4.4 mmoL/L (3.5-5.1); Sodium 135 mmol/L (136-145)
[2020-09-04 10:47] LABS: Blood Urea Nitrogen 15 mg/dl (9-20)
[2020-09-04 10:48] LABS: Alanine Aminotransferase 46 U/L (12-78); Albumin Level 4.6 g/dl (3.5-5.0); Albumin/Globulin Ratio 1.3 (1.1-1.8); Alkaline Phosphatase 97 U/L (38-126); Anion Gap 14.4 mEq/L (5-15); Aspartate Amino Transferase 44 U/L (17-59); Carbon Dioxide 22 mmol/L (22.0-30.0); Estimated Glomerular Filt Rate 80 ml/min (>60); GFR (African American) 97 ML/MIN (>60); Globulin 3.5 g/dL (1.3-3.2); Total Protein,Serum 8.1 g/dl (6.3-8.2)
[2020-09-04 10:49] LABS: Calcium 9.3 mg/dl (8.4-10.2); Glucose 181 mg/dl (74-100)
--- NOTE | 2020-09-04 11:05 | CT_ITS ---
PROCEDURE: CT CHEST W CON CT soft tissue neck with IV contrast CLINCAL INDICATION: MAGLINANT NEOPLASM HEAD,FACE AND NECK COMPARISON: CT CT SOFT TISSUE NECK W CON from 09/24/2019 and 11/26/2018 TECHNIQUE: IV Contrast: 75ml Isovue 370 Axial images obtained with sagittal and coronal reformats. All CT scans at the facility use one or more dose reduction, viz: automated exposure control, ma/kV adjustment per patient size (including targeted exams where dose is matched to indication, i.e. head), or iterative reconstruction technique. FINDINGS: CT soft tissue neck shows a few small nonspecific bilateral cervical chain lymph nodes. The previously noted cystic lesion in the left submandibular region has substantially decreased in size, now measuring about 1.3 centimeters x 7 millimeters. No other areas of adenopathy are noted. Skull base is normal. Mastoid air cells are patent. No intracranial abnormality. Orbits and globes are normal. Paranasal sinuses are patent. Salivary glands are normal. Epiglottis and aryepiglottic fold regions are normal. No evidence of peritonsillar or retropharyngeal fluid collection to suggest abscess. Thyroid gland is normal. Lung apices are normal. Mild diffuse degenerative changes of the cervical spine are noted. CT chest shows a few small non-specific middle mediastinal lymph nodes not pathologically enlarged. Hilar regions grossly appear normal. No enlarged axillary nodes. Thoracic inlet is normal. Thoracic aorta is normal. No pleural effusion or pneumothorax. Heart is not enlarged. No pericardial effusion or thickening. There is a small sub centimeter partially calcified nodule in the left lung base. There is a small subcentimeter pulmonary nodule along the left major fissure. No other discrete pulmonary nodules are noted. Repeat chest CT in 6 months recommended for close follow-up. Images of the upper abdomen show some diffuse fatty infiltration of the visualized liver. No adrenal mass. Several small calcifications noted in the spleen. There are some diffuse degenerative changes of the thoracic spine. No acute bony abnormality. IMPRESSION: Substantial interval decrease in size of the cystic lesion in the left submandibular region now measuring 1.3 centimeters x 7 millimeters. No new areas of lymphadenopathy noted. A few small subcentimeter bilateral cervical chain lymph nodes similar to prior CT. A few small non-specific middle mediastinal lymph nodes. Small subcentimeter pulmonary nodule along the left major fissure. Small partially calcified subcentimeter nodule in the left lung base. Repeat chest CT in 6 months recommended for close follow-up. No adrenal mass. Diffuse fatty infiltration of the visualized liver. Dictated by: Vickey Cintron 09/04/2020 12:19 Vickey Cintron in [facility] 09/04/2020 12:19
== END ==
PROVIDERS: PCP Family Medicine; Visit Provider Internal Medicine Medical Oncology
DX: C76.0 Malignant neoplasm of head, face and neck (principal); C08.0 Malignant neoplasm of submandibular gland
CPT/HCPCS: 36415; 70491; 71260; 80053; 85025; Q9967

== ENCOUNTER → 2021-02-16 11:51 | Outpatient (CLI) | payer OTHER, SELFPAY ==
[2021-02-16 12:07] LABS: Basophils # 0.1 K/mm3 (0-0.2); Basophils % 1.1 % (0.1-2.0); Eosinophils # 0.2 K/mm3 (0.0-0.4); Eosinophils % 2.3 % (0.1-12.0); Hematocrit 49.3 % (42.0-52.0); Hemoglobin 17.3 g/dL (14.1-18.0); Lymphocytes # 1.6 K/mm3 (0.7-4.5); Lymphocytes % 24.5 % (10-50); Mean Corpuscular HGB Conc 35.1 g/dL (31.8-35.4); Mean Corpuscular Hemoglobin 31.8 pg (27.0-31.2); Mean Corpuscular Volume 90.7 fl (80-94); Mean Platelet Volume 8.8 fl (7.4-10.4); Monocytes # 0.3 K/mm3 (0.1-1.0); Monocytes % 5.1 % (1.7-9.3); Neutrophils # 4.4 K/mm3 (1.8-7.8); Neutrophils % 66.9 % (37.0-80.0); Platelet Count 239 K/mm3 (142-424); Red Blood Count 5.44 M/mm3 (4.60-6.20); Red Cell Distribution Width 14.4 % (11.5-17.5); White Blood Count 6.6 K/mm3 (4.8-10.8)
--- NOTE | 2021-02-16 12:11 | CT_ITS ---
PROCEDURE: CT HEAD/BRAIN WO/W CON CLINICAL INDICATION: HEAD AND NECK CANCER COMPARISON: No exams were available for comparison TECHNIQUE: IV Contrast: 100ML Isovue 370 Axial images obtained. All CT scans at the facility use one or more dose reduction, viz: automated exposure control, ma/kV adjustment per patient size (including targeted exams where dose is matched to indication, i.e. head), or iterative reconstruction technique. FINDINGS: No midline shift, mass effect, intracranial hemorrhage, hydrocephalus, or extra-axial fluid collection is evident. No enhancing lesions. The calvarium has an unremarkable appearance. No mastoid effusion or sinus air-fluid level. A BB is placed along the area of palpable concern along the left neck laterally posterior to the ear. No discrete mass evident deep to the BB. In this general region within the deep subcutaneous fat there is a 3 mm nodular density. This is of uncertain clinical significance. Other small nodular densities also present in the neck not at this region possibly due to small lymph nodes.. IMPRESSION: Negative CT head without and with contrast. Dictated by: Rico Brown MD 02/16/2021 14:40 Rico Brown MD in [facility] 02/16/2021 14:40
--- NOTE | 2021-02-16 12:11 | CT_ITS ---
PROCEDURE INFORMATION: Exam: CT Chest Without and With Contrast; Diagnostic Exam date and time: 02/16/2021 12:11 PM Age: 46 years old Clinical indication: Abnormal findings; Lung mass or nodule; Single or solitary nodule; Patient HX: Lt lung nodule 6 months ago; Additional info: Head and neck cancer TECHNIQUE: Imaging protocol: Diagnostic computed tomography of the chest without and with contrast. Radiation optimization: All CT scans at this facility use at least one of these dose optimization techniques: automated exposure control; mA and/or kV adjustment per patient size (includes targeted exams where dose is matched to clinical indication); or iterative reconstruction. Contrast material: ISOVUE; Contrast volume: 75 ml; Contrast route: IV; COMPARISON: CT CHEST W CON 09/04/2020 11:18 AM FINDINGS: Lungs: No pulmonary nodule identified. Calcified granuloma in the left lower lobe Pleural spaces: Unremarkable. No pneumothorax. No pleural effusion. Heart: Unremarkable. No cardiomegaly. No pericardial effusion. Aorta: Unremarkable. No aortic aneurysm. Lymph nodes: Unremarkable. No enlarged lymph nodes. Liver: There is a diffuse increase in hepatic parenchymal echogenicity, consistent with fatty infiltration. Bones/joints: Unremarkable. No acute fracture. Soft tissues: Unremarkable. IMPRESSION: No pulmonary nodule identified.
[2021-02-16 12:25] LABS: Chloride 103 mmol/L (98-107)
[2021-02-16 12:26] LABS: Potassium 4.2 mmoL/L (3.5-5.1); Sodium 136 mmol/L (136-145)
[2021-02-16 12:28] LABS: Alanine Aminotransferase 43 U/L (12-78); Alkaline Phosphatase 106 U/L (38-126); Anion Gap 11.2 mEq/L (5-15); Aspartate Amino Transferase 44 U/L (17-59); Bilirubin,Total 0.9 mg/dl (0.2-1.3); Blood Urea Nitrogen 14 mg/dl (9-20); Carbon Dioxide 26 mmol/L (22.0-30.0); Estimated Glomerular Filt Rate 72 ml/min (>60); GFR (African American) 87 ML/MIN (>60)
[2021-02-16 12:29] LABS: Albumin Level 4.2 g/dl (3.5-5.0); Albumin/Globulin Ratio 1.4 (1.1-1.8); Calcium 9.3 mg/dl (8.4-10.2); Globulin 3.1 g/dL (1.3-3.2); Glucose 304 mg/dl (74-100); Total Protein,Serum 7.3 g/dl (6.3-8.2)
== END ==
PROVIDERS: PCP Family Medicine; Visit Provider Internal Medicine Medical Oncology
DX: C76.0 Malignant neoplasm of head, face and neck (principal)
CPT/HCPCS: 36415; 70470; 71270; 80053; 85025; Q9967

== ENCOUNTER 2024-06-29 11:37 | Emergency (ER) | payer OTHER, SELFPAY ==
[2024-06-29] VITALS (15 sets, daily range): BP systolic 110–136; BP diastolic 47–97; PULSE 67–114; RESP 14–24; TEMP 36.6–36.8; O2SAT 96–98; BMI 29.8
--- NOTE | 2024-06-29 11:45 | PC.NURSE ---
DR CESAR AT BEDSIDE
--- NOTE | 2024-06-29 11:52 | CT_ITS ---
FINAL REPORT TECHNIQUE: Noncontrast exam This study was performed with techniques to keep radiation doses as low as reasonably achievable, (ALARA). Individualized dose reduction techniques using automated exposure control or adjustment of mA and/or kV according to the patient''s size were employed. CLINICAL HISTORY: R flank/low back pain, h/o cancer, h/o stones FINDINGS: Abdomen: There is elevation of the left hemidiaphragm. Mild left basilar atelectasis is identified. There is a small right effusion. Liver, spleen, pancreas and adrenal glands have a normal CT appearance in their limited unenhanced state. Nonobstructing left renal stones are noted, largest measures up to 7 mm. There is mild left renal scarring. No obvious renal mass is present. No ureteral stones are present. There is fluid-filled mildly distended large and small bowel which may be seen with enterocolitis. There is a malpositioned PEG tube. PEG tube is within the abdominal wall. Fibrous track is seen extending from the PEG tube towards the stomach. There is no free air or free fluid. There are surgical changes from lower abdominal hernia repair. Trace free fluid is identified. Pelvis: No distal ureteral stones are seen. The bladder is unremarkable. There is a nonvisualized appendix. IMPRESSION: Mildly distended large and small bowel with fluid and air, may represent enterocolitis or ileus. Malpositioned PEG tube within the abdominal wall. Reviewed, Interpreted and Dictated by Lynn Cha MD Transcribed by Jessica Wharton Authenticated and [facility]
--- NOTE | 2024-06-29 11:52 | CT_ITS ---
FINAL REPORT CLINICAL HISTORY: R flank/low back pain, h/o cancer, h/o stones FINDINGS: CT LUMBAR SPINE TECHNIQUE: Thin section noncontrast axial CT with sagittal reconstructions No fracture is present. Alignment is normal. T12-L1: No canal stenosis. L1-L2: Mild annular disc bulge without canal stenosis. Mild neuroforaminal narrowing. L2-L3: Unremarkable. L3-L4: Mild annular disc bulge. Moderate facet arthropathy. Borderline central canal stenosis and moderate bilateral neuroforaminal narrowing. L4-L5: Moderate annular disc bulge. Advanced facet overgrowth. Severe central canal stenosis and severe neuroforaminal narrowing. L5-S1: Moderate annular disc bulge, partially calcified. Mild central canal stenosis and severe bilateral neuroforaminal narrowing. IMPRESSION: No fracture. Degenerative changes with canal stenosis and neuroforaminal narrowing at L4-5 and L5-S1. This study was performed using automated techniques to achieve radiation exposure as low as reasonably achievable Reviewed, Interpreted and Dictated by Lynn Cha MD Transcribed by Jessica Wharton Authenticated and [facility]
--- NOTE | 2024-06-29 11:59 | ED_ITS ---
Discharge Plan Disposition Patient Disposition: Home, Self-Care Prescriptions Prescriptions: New methocarbamol 500 mg tablet 1,000 mg PO Q8H PRN (Reason: muscle pain and spasm) Qty: 30 0RF levofloxacin 750 mg tablet 750 mg PO DAILY 5 Days Qty: 5 0RF No Action gabapentin 400 mg capsule 400 mg feeding tube TID Qty: 90 2RF docusate sodium 50 mg/5 mL liquid 50 mg PO DAILY Qty: 150 4RF famotidine 20 mg tablet 20 mg PO BID Qty: 60 2RF Trijardy XR 12.5-2.5-1,000 mg tablet, IR - ER, biphasic 24hr PO zolpidem [Ambien] 5 mg tablet 5 mg PO HS PRN (Reason: insomnia) Qty: 30 1RF oxycodone 5 mg tablet See Rx Instructions feeding tube Q6H PRN (Reason: pain) Qty: 60 0RF Rx Instructions: 1-2 via feeding tube every 6 hours PRN; lisinopril-hydrochlorothiazide 1 EACH tablet 1 tab PO DAILY Referrals Follow up/Referrals: Provider,Referral, MD [Referring] - See instructions Activity Restrictions/Add. Instructions Additional Instructions/Restrictions: At this time it was felt you are safe to be discharged home. If new or worsening symptoms please do not hesitate to return the emergency department. You have a possible urinary tract infection which we are treating with an antibiotic called levofloxacin. If you do not pass gas tomorrow presented for continued evaluation. Otherwise please call and schedule appoint with Dr. Ibrahim tell them that you were seen in the emergency department any close follow-up on Friday if possible and Friday at the latest. Please take your medications as prescribed. Clinical Impressions Clinical Impression: Dilated bowel, Acute UTI, PEG tube malfunction Print Language Print Language: Arabic Discharge ED Provider: Mara Schofield General Adult HPI <Mara Schofield DO - Last Filed: 06/29/24 15:08> General Chief complaint: PAIN Stated complaint: BACK PAIN Time Seen by Provider: 06/29/24 11:45 Mode of Arrival: EMS Source of Information: Patient and EMS Description of Symptoms (Recalled from ER Triage Doc. by RN): PT REPORTS LOW BACK PAIN/RIGHT SIDED INTERMITTENTLY X 1 WEEK. EVALUATED BY PCP ON 06/23/24, RECEIVED MUSCLE RELAXER BUT HAS NOT HAD ANY RELIEF. History of Present Illness HPI narrative: This patient is a 49-year-old male with a history of head neck cancer status post resection and radiation, not currently on treatment, PEG tube in place but he has not used it since February, hypertension, hyperlipidemia, type 2 diabetes presenting to the emergency department for evaluation with concern for right- sided low back/flank pain. Patient reports that is been going on for about a week intermittently, and he saw his PCP for this 06/23/2024 and got a muscle relaxer but has not been helping. He notes that he is also had a poor appetite and has been eating or drinking very much. He notes that he cannot use his PEG tube because anytime he put something in it, it comes on around the tube. He notes that he told his doctor that this a long time ago, as it has been going on since February, but he notes that nothing has been done about this. He states that the right flank pain is intermittent, not changed by movement. He notes that he thinks it might be a kidney stone, as it feels similar to when he had a kidney stone in the past. No fevers, nausea, vomiting, changes bowel movements, or urinary symptoms noted. No falls or injuries, no new numbness, tingling, saddle anesthesia, or incontinence. Related Data Home Medications ?Medication ?Instructions ?Recorded ?Confirmed lisinopril 20 1 tab PO DAILY High blood pressure 11/08/18 02/12/24 mg-hydrochlorothiazide 25 mg tablet empagliflozin 12.5 mg-linaglipt PO 11/13/23 02/12/24 2.5 mg-metform ER 1,000 mg tablet,24hr (Trijardy XR) Previous Rx's ?Medication ?Instructions ?Recorded gabapentin 400 mg capsule 400 mg feeding tube TID #90 caps 02/12/24 docusate sodium 50 mg/5 mL oral 50 mg (5 mL) PO DAILY #150 mL 02/13/24 liquid famotidine 20 mg tablet 20 mg PO BID #60 tabs 02/13/24 zolpidem 5 mg tablet (Ambien) 5 mg PO HS PRN insomnia #30 tabs 02/17/24 oxycodone 5 mg tablet See Rx Instructions feeding tube 03/19/24 Q6H PRN pain #60 tabs levofloxacin 750 mg tablet 750 mg PO DAILY UTI 5 days #5 tabs 06/29/24 methocarbamol 500 mg tablet 1,000 mg (2 x 500 mg) PO Q8H PRN 06/29/24 muscle pain and spasm #30 tabs Allergies Allergy/AdvReac Type Severity Reaction Status Date / Time Penicillins Allergy Unknown Verified 06/29/24 11:47 allergy reaction PFSH <Mara Schofield DO - Last Filed: 06/29/24 15:08> [facility] Disclaimer: The information contained in this section may have been updated after the patient was seen, as this information can be updated by other users. 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 current occupational exposures/hazards: No caffeine: Yes Have you lived/traveled outside [place] in past 30 days?: No Contact w/someone who lives/traveled outside US past 30 days?: No Exposure to someone with infectious disease in past 14 days?: No Do you have a fever (greater than 100.4 F or 38 C)?: No Have you tested positive for COVID-19: No Exposed to someone with COVID-19 in past 14 days?: No Do you have a sore throat?: No Do you have a cough?: No Do you have any weakness?: No Do you have any diarrhea?: No Are you experiencing any unusual bleeding?: No Do you have any muscle aches/pain?: No Do you have any abdominal pain?: No Are you experiencing loss of taste or smell?: No Other Medical History Have you received the Flu Vaccine for this season: No Have you received the Pneumonia Vaccine: No <Mara Schofield DO - Last Filed: 06/29/24 15:08> ROS Obtained: Yes All systems reviewed & no additional complaints except as documented Physical Exam <Mara Schofield DO - Last Filed: 06/29/24 15:08> General General appearance: alert and in no apparent distress Head Head exam: atraumatic and normocephalic Eye Eye exam: Present normal appearance, PERRL and EOMI ENT ENT exam: Present normal exam, normal oropharynx, mucous membranes moist and normal external ear exam Neck Neck exam: Present normal inspection, full ROM and trachea midline; Absent tenderness Chest Chest inspection: Present normal inspection and symmetric chest wall rise; Absent tenderness Respiratory Respiratory exam: Present normal lung sounds bilaterally; Absent respiratory distress, wheezes, stridor or accessory muscle use Cardiovascular Cardiovascular exam: Present regular rate and normal rhythm Abdominal Exam Abdominal exam: Present distention and tenderness (mild generalized); Absent guarding or rebound Comment: PEG tube in place with no significant skin changes around site Extremities Exam Extremities exam: Present normal inspection, full ROM and normal capillary refill; Absent tenderness or edema Back Exam Back exam: Present full ROM and CVA tenderness (R) Neurological Exam Neurological exam: Present alert, oriented X3, CN II-XII intact and normal gait; Absent motor sensory deficit Psychiatric Psychiatric exam: Present normal affect and normal mood Skin Skin exam: Present warm and dry Medical Decision Making <Mara Schofield, DO - Last Filed: 06/29/24 15:08> Medical Records Medical records reviewed: Yes I reviewed the patient's medical records. Screening: Per USPSTF and CDC recommendations, given the prevalence of disease in our region, it is our hospital?s policy to screen for HIV and viral Hepatitis for all patients aged 18 and over and those with ongoing risk factors. Sebastien Inquiry Pt receiving controlled substance: No Vital Signs: 06/29/24 11:37 06/29/24 12:35 06/29/24 14:05 Temperature 98.2 F Temperature Source Oral Pulse Rate 82 67 Pulse Rate [Radial] 114 H Respiratory Rate 18 Blood Pressure 114/67 110/92 H Blood Pressure [Right Arm] 121/73 Blood Pressure Mean Blood Pressure Mean [Right Arm] 89 Blood Pressure Source [Right Arm] Automatic Cuff Blood Pressure Position [Right Arm] Sitting 02 Sat by Pulse Oximetry 98 96 98 Oxygen Delivery Method Room Air Room Air Room Air 06/29/24 14:30 06/29/24 15:00 06/29/24 15:30 Temperature Temperature Source Pulse Rate 88 Pulse Rate [Radial] Respiratory Rate 24 14 Blood Pressure 133/87 116/60 112/74 Blood Pressure [Right Arm] Blood Pressure Mean 79 Blood Pressure Mean [Right Arm] Blood Pressure Source [Right Arm] Blood Pressure Position [Right Arm] 02 Sat by Pulse Oximetry 96 97 96 Oxygen Delivery Method Room Air Room Air Room Air 06/29/24 16:01 06/29/24 17:00 06/29/24 17:31 Temperature Temperature Source Pulse Rate Pulse Rate [Radial] Respiratory Rate 18 Blood Pressure 119/61 116/63 119/73 Blood Pressure [Right Arm] Blood Pressure Mean 84 93 100 Blood Pressure Mean [Right Arm] Blood Pressure Source [Right Arm] Blood Pressure Position [Right Arm] 02 Sat by Pulse Oximetry 96 Oxygen Delivery Method Room Air Lab Data Lab results reviewed: Yes I reviewed the patient's lab results. Lab Results 06/29/24 12:05: WBC 10.2, RBC 4.23 L, Hgb 12.0 L, Hct 35.6 L, MCV 84.2, MCH 28.4, MCHC 33.7, RDW 19.0 H, Plt Count 468 H, MPV 10.4, Neut % (Auto) 86.1 H, L ymph % (Auto) 6.2 L, [place] % (Auto) 5.6, Eos % (Auto) 0.5, Baso % (Auto) 0.5, N eut # (Auto) 8.8 H, Lymph # (Auto) 0.6 L, [place] # (Auto) 0.6, Eos # (Auto) 0.1, Baso # (Auto) 0.1, Sodium 134 L, Potassium 3.1 L, Chloride 92 L, Carbon Dioxide 33 H, Anion Gap 12.1, BUN 13, Creatinine 0.70, Estimated Creat Clear 168, Estimated GFR 119, Est GFR ( Amer) 144, Glucose 164 H, Lactate 1.1, Calcium 8.9, Total Bilirubin 1.2, AST 38, ALT 24, Alkaline Phosphatase 75, C- Reactive Protein 180.7 H, Total Protein 7.8, Albumin 3.3 L, Globulin 4.5 H, A lbumin/Globulin Ratio 0.7 L, Lipase 38, Procalcitonin 0.235, HCV Ab HANSA w/Rflx PCR Qn Negative, HIV Ag/Ab Combo Qual Negative 06/29/24 14:05: Urine Color Yellow, Urine Appearance Clear, Urine pH 6.0, Ur Specific Normal 1.020, Urine Protein 1+ A, Urine Glucose (UA) Negative, Urine Ketones 1+, Urine Blood Trace-i, Urine Nitrate Negative, Urine Bilirubin 1+ A, Urine Urobilinogen 0.2, Ur Leukocyte Esterase 2+ A, Urine RBC Occasional, Urine WBC 10-20, Ur Squamous Epith Cells 3-5, Amorphous Sediment Trace, Urine Bacteria Trace 06/29/24 12:05 06/29/24 12:05 Orders (Tests/Meds): ED MEDICATIONS Generic Name Dose Route Start Last Admin Trade Name Frelisbeth PRN Reason Stop Dose Admin Sodium Chloride 10 ml 06/29/24 16:36 06/29/24 16:37 Sodium Chloride 0.9% 10ml Syr (Rad Only) IV 07/29/24 16:35 10 ml NEEDED PRN Administration Maintain IV Site Discontinued Medications Generic Name Dose Route Start Last Admin Trade Name Freq PRN Reason Stop Dose Admin Diatrizoate Meglum/Diatrizoate Sod 30 ml 06/29/24 14:19 06/29/24 14:30 Diatrizoate Flor 66% & Diatrizoate Na 10% 30ml Udc PO 06/29/24 14:20 30 ml ONCE ONE Administration Lactated Ringer's 1,000 mls @ 999 mls/hr 06/29/24 11:52 06/29/24 12:06 Lactated Ringer's 1000 Ml Bag IV 06/29/24 12:52 999 mls/hr .Q1H1M ONE Administration Potassium Chloride/Water 100 mls @ 100 mls/hr 06/29/24 12:41 06/29/24 13:31 Potassium Chloride 10meq/100ml Ivpb IV 06/29/24 13:40 100 mls/hr ONCE ONE Administration Levofloxacin/Dextrose 750 mg in 150 mls @ 100 mls/hr 06/29/24 14:47 06/29/24 15:17 Levofloxacin 750mg/150ml Premix IV 06/29/24 16:16 100 mls/hr ONCE ONE Administration Iopamidol 75 ml 06/29/24 16:36 06/29/24 16:37 Iopamidol-370 (76%);100ml Bottle IV 06/29/24 16:37 75 ml ONCE ONE Administration Ketorolac Tromethamine 15 mg 06/29/24 11:52 06/29/24 12:06 Ketorolac 30mg/Ml Vial IV 06/29/24 11:53 15 mg ONCE ONE Administration Morphine Sulfate 4 mg 06/29/24 11:52 06/29/24 12:07 Morphine 4mg/Ml Syringe IV 06/29/24 11:53 4 mg ONCE ONE Administration Morphine Sulfate 4 mg 06/29/24 15:14 06/29/24 15:17 Morphine 4mg/Ml Syringe IV 06/29/24 15:15 4 mg ONCE ONE Administration Ondansetron HCl 4 mg 06/29/24 11:52 06/29/24 12:06 Ondansetron 4mg/2ml Vial IV 06/29/24 11:53 4 mg ONCE ONE Administration Potassium Chloride 40 meq 06/29/24 12:41 06/29/24 13:30 Potassium Chloride 20meq Tab PO 06/29/24 12:42 40 meq ONCE ONE Administration ORDERS Category Date Time Status CT abdomen pelvis w con Stat Cat Scan 06/29/24 14:[address] abdomen pelvis wo con Stat Cat Scan 06/29/24 11:[address] lumbar spine wo con Stat Cat Scan 06/29/24 11:52 Completed General Surgery Consult [Consult to General Surgery] [ Cons 06/29/24 13:56 Ordered CONS] Stat CRP [C-Reactive Protein] Stat Lab 06/29/24 12:05 Completed Complete Blood Count Auto Diff Stat Lab 06/29/24 12:05 Completed Comprehensive Metabolic Panel Stat Lab 06/29/24 12:05 Completed HIV Combo Stat Lab 06/29/24 12:05 Completed Hepatitis C Ab Qual. W/ RFX Stat Lab 06/29/24 12:05 Completed Lactic Acid Stat Lab 06/29/24 12:05 Completed Lipase Stat Lab 06/29/24 12:05 Completed Procalcitonin Stat Lab 06/29/24 12:05 Completed UA [Urinalysis and Microscopic] Stat Lab 06/29/24 14:05 Completed Blood Culture Stat Micro 06/29/24 15:26 Received Urine Culture Stat Micro 06/29/24 14:10 Received Medical Decision Narrative: In summary, this patient is a 49-year-old male presenting to the Emergency Department for evaluation of right-sided low back pain, poor appetite. Differential diagnoses considered include but are not limited to ureterolithiasis, malignancy, metastatic disease, bowel obstruction, colitis, constipation, intra-abdominal fluid collection musculoskeletal strain/sprain, disc herniation. Ruling out the most morbid conditions drove assessment. It should be noted patient's history includes head and neck cancer as well as hypertension and hyperlipidemia which may not be at goal therapy. This complicates all aspects of care by increasing patient's risk for morbidity. I reviewed patient's past medical records and noted previous oncology evaluations for head neck cancer in the past. I reviewed patient's medical records from and noted he had PEG placed at in January endoscopically by general surgery. On exam, the patient is sitting upright in no acute distress. He notes issues with his PEG tube, but he states that his issues are chronic. He has right CVA tenderness, mild abdominal distention and tenderness, remainder of exam is benign. He is mildly tachycardic but vitals are otherwise reassuring on cardiac telemetry, he is afebrile and nontoxic-appearing. He arrives by EMS who notes that he was stable en route. Workup included CBC, CMP, lipase, CRP, procalcitonin, lactic acid, urinalysis, CT lumbar spine, CT abdomen pelvis without contrast. He was given IV morphine, Zofran, Toradol, and a bolus of IV fluids. I independently interpreted CT scan prior to the radiologist read and noted significant bowel dilatation and distention concerning for possible obstruction. His PEG tube is in his abdominal wall. Please see their read for final interpretation. On further questioning, the patient states that has been having liquid bowel movements every day for the past week. He notes his last solid bowel movement was about 3 to 4 days ago. He notes that he feels like he is bloated with a lot of gas, but he states he is still passing gas. No nausea or vomiting. Labs were obtained that demonstrated reassuring CBC with no significant leukocytosis. He does have very mild anemia but not transfuse well. Chemistry demonstrates mild hyponatremia, hypokalemia with a potassium of 3.1, hypochloremia, elevated CO2. He has a significant elevated CRP. IV potassium repletion was ordered as well as oral potassium. He also was given a bolus of IV fluids. Urinalysis is concerning for infection, so he was given IV Rocephin. Urine culture and blood cultures pending. On reassessment, he is lying in bed in no acute distress. Overall, I was concerned for obstructive process on CT scan with significant bowel dilatation, as well as his passage of only liquid stools, abdominal distention, right flank pain. I also am concerned about his dislodged PEG tube. I had extensive discussion with the patient regarding this, and I advised that complications of procedures are typically managed by the team who performed the procedure, but he adamantly does not want another feeding tube placed and does not want transfer to . He states he would like to have this dealt with here and would just like the tube removed. He has feeding difficulties with decreased oral intake secondary to difficulty swallowing after all of his treatments for head and neck cancer, but he is adamant against no feeding tube and wishes for removal of the feeding tube. I had an interactive discussion with Dr. Gordon who came and pulled the PEG tube at bedside. He recommended CT with oral and IV contrast for follow-through to see if he has an acute obstructive process given the bowel dilatation. This was ordered. Patient care signed out to the oncoming provider, Dr. Rodriguez, pending CT and dispo. <Leander Rodriguez MD - Last Filed: 06/29/24 19:41> Vital Signs: 06/29/24 11:37 06/29/24 12:35 06/29/24 14:05 Temperature 98.2 F Temperature Source Oral Pulse Rate 82 67 Pulse Rate [Radial] 114 H Respiratory Rate 18 Blood Pressure 114/67 110/92 H Blood Pressure [Right Arm] 121/73 Blood Pressure Mean Blood Pressure Mean [Right Arm] 89 Blood Pressure Source [Right Arm] Automatic Cuff Blood Pressure Position [Right Arm] Sitting 02 Sat by Pulse Oximetry 98 96 98 Oxygen Delivery Method Room Air Room Air Room Air 06/29/24 14:30 06/29/24 15:00 06/29/24 15:30 Temperature Temperature Source Pulse Rate 88 Pulse Rate [Radial] Respiratory Rate 24 14 Blood Pressure 133/87 116/60 112/74 Blood Pressure [Right Arm] Blood Pressure Mean 79 Blood Pressure Mean [Right Arm] Blood Pressure Source [Right Arm] Blood Pressure Position [Right Arm] 02 Sat by Pulse Oximetry 96 97 96 Oxygen Delivery Method Room Air Room Air Room Air 06/29/24 16:01 06/29/24 17:00 06/29/24 17:31 Temperature Temperature Source Pulse Rate Pulse Rate [Radial] Respiratory Rate 18 Blood Pressure 119/61 116/63 119/73 Blood Pressure [Right Arm] Blood Pressure Mean 84 93 100 Blood Pressure Mean [Right Arm] Blood Pressure Source [Right Arm] Blood Pressure Position [Right Arm] 02 Sat by Pulse Oximetry 96 Oxygen Delivery Method Room Air Lab Data Lab Results 06/29/24 12:05: WBC 10.2, RBC 4.23 L, Hgb 12.0 L, Hct 35.6 L, MCV 84.2, MCH 28.4, MCHC 33.7, RDW 19.0 H, Plt Count 468 H, MPV 10.4, Neut % (Auto) 86.1 H, L ymph % (Auto) 6.2 L, [place] % (Auto) 5.6, Eos % (Auto) 0.5, Baso % (Auto) 0.5, N eut # (Auto) 8.8 H, Lymph # (Auto) 0.6 L, [place] # (Auto) 0.6, Eos # (Auto) 0.1, Baso # (Auto) 0.1, Sodium 134 L, Potassium 3.1 L, Chloride 92 L, Carbon Dioxide 33 H, Anion Gap 12.1, BUN 13, Creatinine 0.70, Estimated Creat Clear 168, Estimated GFR 119, Est GFR ( Amer) 144, Glucose 164 H, Lactate 1.1, Calcium 8.9, Total Bilirubin 1.2, AST 38, ALT 24, Alkaline Phosphatase 75, C- Reactive Protein 180.7 H, Total Protein 7.8, Albumin 3.3 L, Globulin 4.5 H, A lbumin/Globulin Ratio 0.7 L, Lipase 38, Procalcitonin 0.235, HCV Ab HANSA w/Rflx PCR Qn Negative, HIV Ag/Ab Combo Qual Negative 06/29/24 14:05: Urine Color Yellow, Urine Appearance Clear, Urine pH 6.0, Ur Specific Normal 1.020, Urine Protein 1+ A, Urine Glucose (UA) Negative, Urine Ketones 1+, Urine Blood Trace-i, Urine Nitrate Negative, Urine Bilirubin 1+ A, Urine Urobilinogen 0.2, Ur Leukocyte Esterase 2+ A, Urine RBC Occasional, Urine WBC 10-20, Ur Squamous Epith Cells 3-5, Amorphous Sediment Trace, Urine Bacteria Trace Orders (Tests/Meds): ED MEDICATIONS Generic Name Dose Route Start Last Admin Trade Name Freq PRN Reason Stop Dose Admin Sodium Chloride 10 ml 06/29/24 16:36 06/29/24 16:37 Sodium Chloride 0.9% 10ml Syr (Rad Only) IV 07/29/24 16:35 10 ml NEEDED PRN Administration Maintain IV Site Discontinued Medications Generic Name Dose Route Start Last Admin Trade Name Boyq PRN Reason Stop Dose Admin Diatrizoate Meglum/Diatrizoate Sod 30 ml 06/29/24 14:19 06/29/24 14:30 Diatrizoate Flor 66% & Diatrizoate Na 10% 30ml Udc PO 06/29/24 14:20 30 ml ONCE ONE Administration Lactated Ringer's 1,000 mls @ 999 mls/hr 06/29/24 11:52 06/29/24 12:06 Lactated Ringer's 1000 Ml Bag IV 06/29/24 12:52 999 mls/hr .Q1H1M ONE Administration Potassium Chloride/Water 100 mls @ 100 mls/hr 06/29/24 12:41 06/29/24 13:31 Potassium Chloride 10meq/100ml Ivpb IV 06/29/24 13:40 100 mls/hr ONCE ONE Administration Levofloxacin/Dextrose 750 mg in 150 mls @ 100 mls/hr 06/29/24 14:47 06/29/24 15:17 Levofloxacin 750mg/150ml Premix IV 06/29/24 16:16 100 mls/hr ONCE ONE Administration Iopamidol 75 ml 06/29/24 16:36 06/29/24 16:37 Iopamidol-370 (76%);100ml Bottle IV 06/29/24 16:37 75 ml ONCE ONE Administration Ketorolac Tromethamine 15 mg 06/29/24 11:52 06/29/24 12:06 Ketorolac 30mg/Ml Vial IV 06/29/24 11:53 15 mg ONCE ONE Administration Morphine Sulfate 4 mg 06/29/24 11:52 06/29/24 12:07 Morphine 4mg/Ml Syringe IV 06/29/24 11:53 4 mg ONCE ONE Administration Morphine Sulfate 4 mg 06/29/24 15:14 06/29/24 15:17 Morphine 4mg/Ml Syringe IV 06/29/24 15:15 4 mg ONCE ONE Administration Ondansetron HCl 4 mg 06/29/24 11:52 06/29/24 12:06 Ondansetron 4mg/2ml Vial IV 06/29/24 11:53 4 mg ONCE ONE Administration Potassium Chloride 40 meq 06/29/24 12:41 06/29/24 13:30 Potassium Chloride 20meq Tab PO 06/29/24 12:42 40 meq ONCE ONE Administration ORDERS Category Date Time Status CT abdomen pelvis w con Stat Cat Scan 06/29/24 14:[address] abdomen pelvis wo con Stat Cat Scan 06/29/24 11:[address] lumbar spine wo con Stat Cat Scan 06/29/24 11:52 Completed General Surgery Consult [Consult to General Surgery] [ Cons 06/29/24 13:56 Ordered CONS] Stat CRP [C-Reactive Protein] Stat Lab 06/29/24 12:05 Completed Complete Blood Count Auto Diff Stat Lab 06/29/24 12:05 Completed Comprehensive Metabolic Panel Stat Lab 06/29/24 12:05 Completed HIV Combo Stat Lab 06/29/24 12:05 Completed Hepatitis C Ab Qual. W/ RFX Stat Lab 06/29/24 12:05 Completed Lactic Acid Stat Lab 06/29/24 12:05 Completed Lipase Stat Lab 06/29/24 12:05 Completed Procalcitonin Stat Lab 06/29/24 12:05 Completed UA [Urinalysis and Microscopic] Stat Lab 06/29/24 14:05 Completed Blood Culture Stat Micro 06/29/24 15:26 Received Urine Culture Stat Micro 06/29/24 14:10 Received Medical Decision Narrative: In summary, this patient is a 49-year-old male presenting to the Emergency Department for evaluation of right-sided low back pain, poor appetite. Differential diagnoses considered include but are not limited to ureterolithiasis, malignancy, metastatic disease, bowel obstruction, colitis, constipation, intra-abdominal fluid collection musculoskeletal strain/sprain, disc herniation. Ruling out the most morbid conditions drove assessment. It should be noted patient's history includes head and neck cancer as well as hypertension and hyperlipidemia which may not be at goal therapy. This complicates all aspects of care by increasing patient's risk for morbidity. I reviewed patient's past medical records and noted previous oncology evaluations for head neck cancer in the past. I reviewed patient's medical records from and noted he had PEG placed at in January endoscopically by general surgery. On exam, the patient is sitting upright in no acute distress. He notes issues with his PEG tube, but he states that his issues are chronic. He has right CVA tenderness, mild abdominal distention and tenderness, remainder of exam is benign. He is mildly tachycardic but vitals are otherwise reassuring on cardiac telemetry, he is afebrile and nontoxic-appearing. He arrives by EMS who notes that he was stable en route. Workup included CBC, CMP, lipase, CRP, procalcitonin, lactic acid, urinalysis, CT lumbar spine, CT abdomen pelvis without contrast. He was given IV morphine, Zofran, Toradol, and a bolus of IV fluids. I independently interpreted CT scan prior to the radiologist read and noted significant bowel dilatation and distention concerning for possible obstruction. His PEG tube is in his abdominal wall. Please see their read for final interpretation. On further questioning, the patient states that has been having liquid bowel movements every day for the past week. He notes his last solid bowel movement was about 3 to 4 days ago. He notes that he feels like he is bloated with a lot of gas, but he states he is still passing gas. No nausea or vomiting. Labs were obtained that demonstrated reassuring CBC with no significant leukocytosis. He does have very mild anemia but not transfuse well. Chemistry demonstrates mild hyponatremia, hypokalemia with a potassium of 3.1, hypochloremia, elevated CO2. He has a significant elevated CRP. IV potassium repletion was ordered as well as oral potassium. He also was given a bolus of IV fluids. Urinalysis is concerning for infection, so he was given IV Rocephin. Urine culture and blood cultures pending. On reassessment, he is lying in bed in no acute distress. Overall, I was concerned for obstructive process on CT scan with significant bowel dilatation, as well as his passage of only liquid stools, abdominal distention, right flank pain. I also am concerned about his dislodged PEG tube. I had extensive discussion with the patient regarding this, and I advised that complications of procedures are typically managed by the team who performed the procedure, but he adamantly does not want another feeding tube placed and does not want transfer to . He states he would like to have this dealt with here and would just like the tube removed. He has feeding difficulties with decreased oral intake secondary to difficulty swallowing after all of his treatments for head and neck cancer, but he is adamant against no feeding tube and wishes for removal of the feeding tube. I had an interactive discussion with Dr. Gordon who came and pulled the PEG tube at bedside. He recommended CT with oral and IV contrast for follow-through to see if he has an acute obstructive process given the bowel dilatation. This was ordered. Patient care signed out to the oncoming provider, Dr. Rodriguez, pending CT and dispo. Leander Rodriguez: Upon assumption of care patient was hemodynamically stable. Workup reviewed by me, patient has elevated CRP in the setting of previous cancer and nonfunctioning PEG tube that has been evaluated and removed by surgery. No significant leukocytosis, mild anemia, no critical electrolyte abnormality however he does have hypokalemia which is have been repleted. Patient does not have any significant dysuria and urinalysis is equivocal but can be indicative of ascending ureteritis where his location of pain is on his right flank which will be treated with levofloxacin on an outpatient basis. CT imaging patient has distended large and small bowel oral contrast in the mid to distal small bowel without contrast in the terminal ileum or large bowel at this time, differential includes enterocolitis versus ileus. Given that patient has diarrhea I would favor enteric colitis. Upon repeat evaluation patient underwent p.o. multiple rounds and was successful. Given this he is appropriate for discharge at this time was given multiple return precautions and verbalized understanding. With respect to his right back pain it seems that he pulled his left back while lifting something that it extended into his right back recently and given that he does not have any other significant findings on his CT scan that could represent this other than referred pain from his bowels I think that essentially all emergent conditions have been ruled out and he is appropriate for outpatient management. He was given a muscle relaxer here will be discharged with a course of muscle relaxers will follow-up with Dr. Ibrahim 48 hours to make sure things are headed in the right direction. Critical Care <Mara Schofield, DO - Last Filed: 06/29/24 15:08> Critical Care Time Critical Care Time: No
[2024-06-29] MEDS: KETOROLAC 30MG/ML VIAL 15 MG IV (12:06)
[2024-06-29] MEDS: ONDANSETRON 4MG/2ML VIAL 4 MG IV (12:06)
[2024-06-29] MEDS: LACTATED RINGERS 1000ML 1,000 ML 999 ML IV (12:06)
[2024-06-29] MEDS: MORPHINE 4MG/ML SYRINGE 4 MG IV ×2 (12:07→15:17)
--- NOTE | 2024-06-29 12:15 | PC.NURSE ---
PT MEDICATED PER EMAR, UPDATED ON PC. NO NEEDS AT THIS TIME. CALL LIGHT WITHIN REACH
[2024-06-29 12:18] LABS: Basophils # 0.1 K/mm3 (0-0.2); Basophils % 0.5 % (0.1-2.0); Eosinophils # 0.1 K/mm3 (0.0-0.4); Eosinophils % 0.5 % (0.1-12.0); Hematocrit 35.6 % (42.0-52.0); Lymphocytes # 0.6 K/mm3 (0.7-4.5); Lymphocytes % 6.2 % (10-50); Mean Corpuscular HGB Conc 33.7 g/dL (31.8-35.4); Mean Corpuscular Hemoglobin 28.4 pg (27.0-31.2); Mean Corpuscular Volume 84.2 fl (80-94); Mean Platelet Volume 10.4 fl (7.4-10.4); Monocytes # 0.6 K/mm3 (0.1-1.0); Monocytes % 5.6 % (1.7-9.3); Neutrophils # 8.8 K/mm3 (1.8-7.8); Neutrophils % 86.1 % (37.0-80.0); Platelet Count 468 K/mm3 (142-424); Red Blood Count 4.23 M/mm3 (4.60-6.20); White Blood Count 10.2 K/mm3 (4.8-10.8)
[2024-06-29 12:27] LABS: Alanine Aminotransferase 24 U/L (12-78); Albumin Level 3.3 g/dl (3.5-5.0); Albumin/Globulin Ratio 0.7 (1.1-1.8); Alkaline Phosphatase 75 U/L (38-126); Anion Gap 12.1 mEq/L (5-15); Aspartate Amino Transferase 38 U/L (17-59); Bilirubin,Total 1.2 mg/dl (0.2-1.3); Blood Urea Nitrogen 13 mg/dl (9-20); Calcium 8.9 mg/dl (8.4-10.2); Carbon Dioxide 33 mmol/L (22.0-30.0); Chloride 92 mmol/L (98-107); Creatinine Clearance Estimated 168 mL/min (50-200); Estimated Glomerular Filt Rate 119 ml/min (>60); GFR (African American) 144 ML/MIN (>60); Globulin 4.5 g/dL (1.3-3.2); Glucose 164 mg/dl (74-100); Lactic Acid 1.1 mmol/L (0.7-2.1); Lipase 38 U/L (23-300); Potassium 3.1 mmoL/L (3.5-5.1); Sodium 134 mmol/L (136-145); Total Protein,Serum 7.8 g/dl (6.3-8.2)
[2024-06-29 12:32] LABS: C-Reactive Protein 180.7 mg/L (0-4)
[2024-06-29 12:45] LABS: Procalcitonin 0.235 ng/mL (0.0-2.0)
[2024-06-29] MEDS: POTASSIUM CHLORIDE 20MEQ TAB 40 MEQ PO (13:30)
[2024-06-29] MEDS: KCl 10mEq/100ml 100 ML 100 MEQ IV (13:31)
[2024-06-29 13:40] LABS: HIV Combo NEGATIVE (Negative)
[2024-06-29 13:47] LABS: Hepatitis C Ab Qual. W/ RFX NEGATIVE (Negative)
[2024-06-29 14:12] LABS: Microscopic, Urine URINE MICROSCOPIC (MICROSCOPIC)
--- NOTE | 2024-06-29 14:19 | CT_ITS ---
PROCEDURE INFORMATION: Exam: CT Abdomen And Pelvis With Contrast Exam date and time: 06/29/2024 4:30 PM Age: 49 years old Clinical indication: Abdominal pain; Additional info: Gen abd pain/distension, poor po, R flank pain TECHNIQUE: Imaging protocol: Computed tomography of the abdomen and pelvis with contrast. Radiation optimization: All CT scans at this facility use at least one of these dose optimization techniques: automated exposure control; mA and/or kV adjustment per patient size (includes targeted exams where dose is matched to clinical indication); or iterative reconstruction. Contrast material: ISOVUE; Contrast volume: 75 ml; Contrast route: IV; COMPARISON: CT ABDOMEN PELVIS WO CON 06/29/2024 1:04 PM FINDINGS: Tubes, catheters and devices: Peg tube has been intervally removed. Lungs: [id number]-right atelectasis/scarring. Pleural spaces: Small right pleural effusion is again seen. Heart: Base of heart is unremarkable as visualized. Coronary arteries: Heavy coronary calcified atherosclerotic disease. Diaphragm: Left diaphragm eventration. Liver: Normal. No mass. Gallbladder and biliary ducts: Normal. No calcified stones. No ductal dilation. Pancreas: Atrophy without ductal prominence. Spleen: Normal. No splenomegaly. Adrenal glands: Normal. No mass. Kidneys and ureters: Left nephrolithiasis without obstruction. Peripherally calcified left renal masses are again seen. Stable appearance of the bilateral kidneys with notable regions of cortical non enhancement/atrophy. Right lower renal pole cyst. Stomach and bowel: Oral contrast is noted in the mid to distal small bowel. No oral contrast is present within the terminal ileum or large bowel. Large bowel and demonstrates dilation by predominantly gas. A few notable air-fluid levels are again seen. Appendix: Multiple appendicoliths are seen. No evidence for appendicitis. Intraperitoneal space: Scattered partially calcified omental infarcts. Vasculature: Mild atherosclerotic disease of the distal abdominal aorta. Lymph nodes: Unremarkable. No enlarged lymph nodes. Urinary bladder: Unremarkable as visualized. Reproductive: Unremarkable as visualized. Bones/joints: Diffuse degenerative change of the visualized osseous structures. Soft tissues: Anterior abdominal wall postsurgical change with mesh placement. IMPRESSION: Again demonstrated distended large and small bowel with notable oral contrast in the mid to distal small bowel. No contrast is seen within the terminal ileum or of the large bowel at this time. Differentials include enterocolitis/ileus. Resident COMMENTS: Consistent with the [employer]'s Incidental Findings Committee white paper (J Am Jace Radiol 2018): Any incidental renal lesion less than 1 cm or classified as too small to characterize, or any incidental cystic renal lesion characterized as simple-appearing, is likely benign. No follow-up imaging is recommended for these lesions per consensus recommendations based on imaging criteria.
[2024-06-29 14:20] LABS: Appearance,Urine CLEAR (Clear); Blood, Urine TRACE-I (Negative); Color,Urine YELLOW (Yellow); Glucose,Urine (UA) Negative (Negative); Ketones,Urine 1+ (Negative); Leukocyte Esterase,Urine 2+ (Negative); Nitrate,Urine Negative (Negative); Protein,Urine 1+ (Negative); Urobilinogen,Urine 0.2 EU/dl (0.2)
--- NOTE | 2024-06-29 14:21 | PC.NURSE ---
DR ALMEIDA AT BEDSIDE
[2024-06-29] MEDS: DIATRIZOATE MEG 66% & DIATRIZOATE NA 10% 30ML UDC 30 ML PO (14:30)
[2024-06-29 14:36] LABS: Bilirubin,Urine 1+ (Negative)
--- NOTE | 2024-06-29 14:37 | PC.NURSE ---
Oral contrast finished @ 1435. Rad made aware.
[2024-06-29 14:40] LABS: RBC,Urine Occasional #/hpf (0-3)
[2024-06-29 14:41] LABS: Amorphous Sediment,Urine Trace /lpf; Bacteria,Urine Trace /lpf
--- NOTE | 2024-06-29 14:47 | P.CONS_ITS ---
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 He did undergo traditional pull- type PEG tube placement at [facility] in late January. Patient states that he has had trouble with it being dysfunctional since February. He has stated that it has occasionally become clogged . He has had leakage of any flush around the site. He denies becoming snagged and dislodged knowingly. He presented to the emergency department today with some complaints of right posterior flank pain. He wondered if he had a kidney stone. He had a noncontrast CT performed which revealed mildly distended large and small bowel which was felt to represent either enterocolitis or ileus. There was malpositioned PEG tube within the abdominal wall. Surgical consultation was obtained. [facility] Disclaimer: The information contained in this section may have been updated after the patient was seen, as this information can be updated by other users. 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 current occupational exposures/hazards: No caffeine: Yes Have you lived/traveled outside [place] in past 30 days?: No Contact w/someone who lives/traveled outside US past 30 days?: No Exposure to someone with infectious disease in past 14 days?: No Do you have a fever (greater than 100.4 F or 38 C)?: No Have you tested positive for COVID-19: No Exposed to someone with COVID-19 in past 14 days?: No Do you have a sore throat?: No Do you have a cough?: No Do you have any weakness?: No Do you have any diarrhea?: No Are you experiencing any unusual bleeding?: No Do you have any muscle aches/pain?: No Do you have any abdominal pain?: No Are you experiencing loss of taste or smell?: No Meds Home Medications and Allergies Home Medications ?Medication ?Instructions ?Recorded ?Confirmed ?Type lisinopril 20 1 tab PO DAILY High blood pressure 11/08/18 02/12/24 History mg-hydrochlorothiazide 25 mg tablet empagliflozin 12.5 mg-linaglipt PO 11/13/23 02/12/24 History 2.5 mg-metform ER 1,000 mg tablet,24hr (Trijardy XR) gabapentin 400 mg capsule 400 mg feeding tube TID #90 caps 02/12/24 02/12/24 Rx docusate sodium 50 mg/5 mL oral 50 mg (5 mL) PO DAILY #150 mL 02/13/24 02/13/24 Rx liquid famotidine 20 mg tablet 20 mg PO BID #60 tabs 02/13/24 02/13/24 Rx zolpidem 5 mg tablet (Ambien) 5 mg PO HS PRN insomnia #30 tabs 02/17/24 Rx oxycodone 5 mg tablet See Rx Instructions feeding tube 03/19/24 Rx Q6H PRN pain #60 tabs New Prescriptions to Start Prescriptions: Allergies Allergy/AdvReac Type Severity Reaction Status Date / Time Penicillins Allergy Unknown Verified 06/29/24 11:47 allergy reaction Exam (Inpt) Vital signs and Labs for Last 24 Hours: Temp Pulse Resp BP Pulse Ox O2 Del Method 98.2 F 67 18 110/92 H 98 Room Air 06/29/24 11:37 06/29/24 14:05 06/29/24 11:37 06/29/24 14:05 06/29/24 14:05 06/29/24 14:05 Laboratory Results - last 24 hr 06/29/24 12:05: WBC 10.2, RBC 4.23 L, Hgb 12.0 L, Hct 35.6 L, MCV 84.2, MCH 28.4, MCHC 33.7, RDW 19.0 H, Plt Count 468 H, MPV 10.4, Neut % (Auto) 86.1 H, L ymph % (Auto) 6.2 L, [place] % (Auto) 5.6, Eos % (Auto) 0.5, Baso % (Auto) 0.5, N eut # (Auto) 8.8 H, Lymph # (Auto) 0.6 L, [place] # (Auto) 0.6, Eos # (Auto) 0.1, Baso # (Auto) 0.1, Sodium 134 L, Potassium 3.1 L, Chloride 92 L, Carbon Dioxide 33 H, Anion Gap 12.1, BUN 13, Creatinine 0.70, Estimated Creat Clear 168, Estimated GFR 119, Est GFR ( Amer) 144, Glucose 164 H, Lactate 1.1, Calcium 8.9, Total Bilirubin 1.2, AST 38, ALT 24, Alkaline Phosphatase 75, C- Reactive Protein 180.7 H, Total Protein 7.8, Albumin 3.3 L, Globulin 4.5 H, A lbumin/Globulin Ratio 0.7 L, Lipase 38, Procalcitonin 0.235, HCV Ab HANSA w/Rflx PCR Qn Negative, HIV Ag/Ab Combo Qual Negative 06/29/24 14:05: Urine Color Yellow, Urine Appearance Clear, Urine pH 6.0, Ur Specific [place] 1.020, Urine Protein 1+ A, Urine Glucose (UA) Negative, Urine Ketones 1+, Urine Blood Trace-i, Urine Nitrate Negative, Urine Bilirubin 1+ A, Urine Urobilinogen 0.2, Ur Leukocyte Esterase 2+ A, Urine RBC Occasional, Urine WBC 10-20, Ur Squamous Epith Cells 3-5, Amorphous Sediment Trace, Urine Bacteria Trace I & O for Labs for Last 24 Hours: Intake & Output 06/27/24 06/28/24 06/29/24 06/30/24 11:59 11:59 11:59 11:59 Weight 208 lb Constitutional: no acute distress GI: Present soft; Absent tenderness Comments:: Pull-type gastrostomy tube left upper abdomen. Immobile and unable to advance consistent with distal gastrostomy tube in the soft tissues of the abdominal wall. Results Labs 06/29/24 12:05 06/29/24 12:05 Labs: Laboratory Results - last 24 hr 06/29/24 12:05: WBC 10.2, RBC 4.23 L, Hgb 12.0 L, Hct 35.6 L, MCV 84.2, MCH 28.4, MCHC 33.7, RDW 19.0 H, Plt Count 468 H, MPV 10.4, Neut % (Auto) 86.1 H, L ymph % (Auto) 6.2 L, [place] % (Auto) 5.6, Eos % (Auto) 0.5, Baso % (Auto) 0.5, N eut # (Auto) 8.8 H, Lymph # (Auto) 0.6 L, [place] # (Auto) 0.6, Eos # (Auto) 0.1, Baso # (Auto) 0.1, Sodium 134 L, Potassium 3.1 L, Chloride 92 L, Carbon Dioxide 33 H, Anion Gap 12.1, BUN 13, Creatinine 0.70, Estimated Creat Clear 168, Estimated GFR 119, Est GFR ( Amer) 144, Glucose 164 H, Lactate 1.1, Calcium 8.9, Total Bilirubin 1.2, AST 38, ALT 24, Alkaline Phosphatase 75, C- Reactive Protein 180.7 H, Total Protein 7.8, Albumin 3.3 L, Globulin 4.5 H, A lbumin/Globulin Ratio 0.7 L, Lipase 38, Procalcitonin 0.235, HCV Ab HANSA w/Rflx PCR Qn Negative, HIV Ag/Ab Combo Qual Negative 06/29/24 14:05: Urine Color Yellow, Urine Appearance Clear, Urine pH 6.0, Ur Specific [place] 1.020, Urine Protein 1+ A, Urine Glucose (UA) Negative, Urine Ketones 1+, Urine Blood Trace-i, Urine Nitrate Negative, Urine Bilirubin 1+ A, Urine Urobilinogen 0.2, Ur Leukocyte Esterase 2+ A, Urine RBC Occasional, Urine WBC 10-20, Ur Squamous Epith Cells 3-5, Amorphous Sediment Trace, Urine Bacteria Trace Assessment and Plan *Assessment and plan (1) Gastrostomy tube dysfunction: Status: Acute Category: Medical Code(s): K94.23 - Gastrostomy malfunction Plan Gastrostomy tube has been dislodged from the gastric lumen with the distal end in the abdominal wall subcutaneous tissues. This was confirmed on CT imaging and on clinical examination. With minimal gentle traction this was able to be removed the remaining bit as the umbrella of the tube was in the superficial abdominal wall subcutaneous tissues. Nursing instructed on dressings. Unclear as to the etiology of the patient's findings on imaging consistent with ileus. Would recommend CT with oral contrast.
[2024-06-29] MEDS: LEVOFLOXACIN/D5W 750 MG/150 ML 750 MG/150 ML PIGGYBACK 100 MG IV (15:17)
[2024-06-29] MEDS: SODIUM CHLORIDE 0.9% 10ML SYR (RAD ONLY) 10 ML IV (16:37)
[2024-06-29] MEDS: IOPAMIDOL-370 (76%);100ML BOTTLE 75 ML IV (16:37)
--- NOTE | 2024-06-29 18:24 | PC.NURSE ---
PT PROVIDED ICE CREAM
[2024-06-29] MEDS: METHOCARBAMOL 500MG TABLET 1000 MG PO (19:53)
--- NOTE | 2024-06-30 14:57 | PC.NURSE ---
Dr. Schofield consulted pt on positive blood cultures and the need to have labs redrawn.
--- NOTE | 2024-06-30 14:58 | PC.NURSE ---
Dr Schofield called pt to review preliminary blood culture results and recommended to pt that he return to ER for re-evaluation and possible admission/treatment of bacteremia. Pt educated on risks of not returning to ER for evaluation and treatment. He also reports he has not picked up his ABX yet. He was encouraged to pick these up if he choose not to return to ER.
== END 2024-06-29 20:18 | disposition home or self-care (01) ==
PROVIDERS: Emergency Provider Emergency Medicine; PCP Family Medicine
DX: N39.0 Urinary tract infection, site not specified (principal); K94.23 Gastrostomy malfunction; K59.89 Other specified functional intestinal disorders; M54.50 Low back pain, unspecified; R63.8 Other symptoms and signs concerning food and fluid intake; C76.0 Malignant neoplasm of head, face and neck
CPT/HCPCS: 72131; 74176; 74177; 80053; 81001; 83605; 83690; 84145; 85025; 86140; 86803; 87040; 87077; 87086; 87186; 87389; 96361; 96365; 96366; 96367; 96374; 96375; 96376; 99285; J1885; J1956; J2270; J2405; J3480; J7120; Q9963; Q9967

== ENCOUNTER 2024-06-30 16:11 | Emergency (ER) | payer OTHER, SELFPAY ==
--- NOTE | 2024-06-30 16:14 | XR_ITS ---
PROCEDURE INFORMATION: Exam: XR Chest Exam date and time: 06/30/2024 4:38 PM Age: 49 years old Clinical indication: Fever; Additional info: Fevers, positve cultures TECHNIQUE: Imaging protocol: Radiologic exam of the chest. Views: 1 view. COMPARISON: PT P.E.T./CT SKULL BASE TO MID-THIGH 11/07/2023 9:30 AM FINDINGS: Lungs: Mild left basilar discoid and subsegmental atelectasis. Lungs otherwise clear. Pleural spaces: Unremarkable. No pleural effusion. No pneumothorax. Heart/Mediastinum: Unremarkable. No cardiomegaly. Bones/joints: Unremarkable. IMPRESSION: Mild left basilar atelectasis.
[2024-06-30 16:21] VITALS: BP 138/81; PULSE 107; RESP 20; TEMP 36.9; O2SAT 100; BMI 29.8
--- NOTE | 2024-06-30 16:33 | HMH.EDGENADL ---
Discharge Plan Disposition Patient Disposition: Home, Self-Care Chief Complaint: Recheck/Abnormal Lab/Rx Prescriptions Prescriptions: No Action gabapentin 400 mg capsule 400 mg feeding tube TID Qty: 90 2RF docusate sodium 50 mg/5 mL liquid 50 mg PO DAILY Qty: 150 4RF famotidine 20 mg tablet 20 mg PO BID Qty: 60 2RF Trijardy XR 12.5-2.5-1,000 mg tablet, IR - ER, biphasic 24hr PO zolpidem [Ambien] 5 mg tablet 5 mg PO HS PRN (Reason: insomnia) Qty: 30 1RF oxycodone 5 mg tablet See Rx Instructions feeding tube Q6H PRN (Reason: pain) Qty: 60 0RF Rx Instructions: 1-2 via feeding tube every 6 hours PRN; methocarbamol 500 mg tablet 1,000 mg PO Q8H PRN (Reason: muscle pain and spasm) Qty: 30 0RF levofloxacin 750 mg tablet 750 mg PO DAILY 5 Days Qty: 5 0RF lisinopril-hydrochlorothiazide 1 EACH tablet 1 tab PO DAILY Referrals Follow up/Referrals: Carson Ibrahim MD [Primary Care Provider] - See instructions Activity Restrictions/Add. Instructions Additional Instructions/Restrictions: Call your family doctor to establish care for this visit to the emergency department and schedule follow-up within 48 hours to ensure improvement. If you have any worsening of your condition or any other concerning signs or symptoms, return to the emergency department or your primary care doctor for further evaluation. Begin taking Levaquin once daily either tonight or tomorrow morning. You will be contacted if blood cultures are positive again. Clinical Impressions Clinical Impression: Encounter for medical assessment, Blood bacterial culture positive Print Language Print Language: Irish Discharge ED Provider: Fernando Fuller General Adult HPI General Chief complaint: Recheck/Abnormal Lab/Rx Stated complaint: labs where bad Time Seen by Provider: 06/30/24 16:13 Mode of Arrival: Ambulatory Source of Information: Patient Description of Symptoms (Recalled from ER Triage Doc. by RN): pt was called by ER MD for positive cultures,plus he had not picked up any antiobiotics that he was prescribed for urine infection two days ago History of Present Illness HPI narrative: Please note that above description of symptoms, in this electronic medical record under categorization of recalled from ER triage doctor by RN are reflective of an initial nursing assessment, however, is not reflective of my full history and physical exam that was personally taken and clarified. Consequentially, this preceding description of symptoms, which may include the patient's categorized chief complaint in the EMR, do not reflect my personal clinical impression, and the ultimate description of history of present illness and patient stated complaints should be deferred to this section of the note. Unless stated otherwise or congruent with this section of the note, additional signs, symptoms, or incongruence should be interpreted as inaccurate with my clinical impression. Related Data Home Medications ?Medication ?Instructions ?Recorded ?Confirmed lisinopril 20 1 tab PO DAILY High blood pressure 11/08/18 02/12/24 mg-hydrochlorothiazide 25 mg tablet empagliflozin 12.5 mg-linaglipt PO 11/13/23 02/12/24 2.5 mg-metform ER 1,000 mg tablet,24hr (Trijardy XR) Previous Rx's ?Medication ?Instructions ?Recorded gabapentin 400 mg capsule 400 mg feeding tube TID #90 caps 02/12/24 docusate sodium 50 mg/5 mL oral 50 mg (5 mL) PO DAILY #150 mL 02/13/24 liquid famotidine 20 mg tablet 20 mg PO BID #60 tabs 02/13/24 zolpidem 5 mg tablet (Ambien) 5 mg PO HS PRN insomnia #30 tabs 02/17/24 oxycodone 5 mg tablet See Rx Instructions feeding tube 03/19/24 Q6H PRN pain #60 tabs levofloxacin 750 mg tablet 750 mg PO DAILY UTI 5 days #5 tabs 06/29/24 methocarbamol 500 mg tablet 1,000 mg (2 x 500 mg) PO Q8H PRN 06/29/24 muscle pain and spasm #30 tabs Allergies Allergy/AdvReac Type Severity Reaction Status Date / Time Penicillins Allergy Unknown Verified 06/29/24 11:47 allergy reaction PFSH [facility] Disclaimer: The information contained in this section may have been updated after the patient was seen, as this information can be updated by other users. 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 current occupational exposures/hazards: No caffeine: Yes Have you lived/traveled outside US in past 30 days?: No Contact w/someone who lives/traveled outside US past 30 days?: No Exposure to someone with infectious disease in past 14 days?: No Do you have a fever (greater than 100.4 F or 38 C)?: No Have you tested positive for COVID-19: No Exposed to someone with COVID-19 in past 14 days?: No Do you have a sore throat?: No Do you have a cough?: No Do you have any weakness?: No Do you have any diarrhea?: No Are you experiencing any unusual bleeding?: No Do you have any muscle aches/pain?: No Do you have any abdominal pain?: No Are you experiencing loss of taste or smell?: No Other Medical History Have you received the Flu Vaccine for this season: No Have you received the Pneumonia Vaccine: No ROS Obtained: Yes All systems reviewed & no additional complaints except as documented Physical Exam General General appearance: alert and in no apparent distress Head Head exam: atraumatic and normocephalic Eye Eye exam: Present normal appearance, PERRL and EOMI Neck Neck exam: Present normal inspection, full ROM and trachea midline Respiratory Respiratory exam: Absent respiratory distress, wheezes, stridor, accessory muscle use or prolonged expiratory phase Cardiovascular Cardiovascular exam: Present other (Pulses equal symmetric in upper and lower extremities) Abdominal Exam Abdominal exam: Present soft; Absent distention, tenderness or pulsatile mass Extremities Exam Extremities exam: Absent edema Neurological Exam Neurological exam: Present alert, oriented X3 and CN II-XII intact; Absent motor sensory deficit Skin Skin exam: Present warm and dry; Absent diaphoresis or erythema Medical Decision Making Medical Records Medical records reviewed: Yes I reviewed the patient's medical records. Screening: Per USPSTF and CDC recommendations, given the prevalence of disease in our region, it is our hospital?s policy to screen for HIV and viral Hepatitis for all patients aged 18 and over and those with ongoing risk factors. Sebastien Inquiry Pt receiving controlled substance: No Sebastien was queried for this patient: No Vital Signs: 06/30/24 16:21 Temperature 98.5 F Temperature Source Oral Pulse Rate [Left Radial] 107 H Respiratory Rate 20 Blood Pressure [Right Arm] 138/81 Blood Pressure Mean [Right Arm] 100 02 Sat by Pulse Oximetry 100 Oxygen Delivery Method Room Air Lab Data Lab Results 06/30/24 16:38: WBC 7.7, RBC 4.01 L, Hgb 11.3 L, Hct 34.1 L, MCV 85.0, MCH 28.2, MCHC 33.1, RDW 18.8 H, Plt Count 461 H, MPV 10.1, Neut % (Auto) 78.0, Lymph % (Auto) 13.3, Cl[place] % (Auto) 6.3, Eos % (Auto) 0.8, Baso % (Auto) 0.6, Neut # (Auto) 6.0, Lymph # (Auto) 1.0, Clinch # (Auto) 0.5, Eos # (Auto) 0.1, Baso # (Auto) 0.1, PT 11.8, INR 1.06, APTT 26.6, VBG pH 7.45 H, VBG pCO2 42.2, VBG pO2 34.2, VBG HCO3 28.7, VBG Total CO2 30.0 H, VBG O2 Saturation 65.7, VBG Base Excess 4.8 H, VBG Lactic Acid 2.1 H, Sodium 135 L, Potassium 3.2 L, Chloride 94 L, Carbon Dioxide 30, Anion Gap 14.2, BUN 11, Creatinine 0.60 L, Estimated Creat Clear 197, Estimated GFR 143, Est GFR ( Amer) 173 D, Glucose 103 H, Calcium 9.1, Total Bilirubin 1.2, AST 36, ALT 24, Alkaline Phosphatase 79, Total Protein 8.3 H, Albumin 3.6, Globulin 4.7 H, Albumin/Globulin Ratio 0.8 L, Procalcitonin 0.187 06/30/24 18:00: Urine Color Yellow, Urine Appearance Clear, Urine pH 6.0, Ur Specific [place] 1.015, Urine Protein Negative, Urine Glucose (UA) Negative, Urine Ketones 1+, Urine Blood Negative, Urine Nitrate Negative, Urine Bilirubin Negative, Urine Urobilinogen 0.2, Ur Leukocyte Esterase 1+ A, Urine RBC 10-20, Urine WBC Tntc, Ur Squamous Epith Cells 5-10, Urine Bacteria 4+, Urine Mucus 4+, Urine Yeast 1+ 06/30/24 16:38 06/30/24 16:38 Orders (Tests/Meds): ED MEDICATIONS Discontinued Medications Generic Name Dose Route Start Last Admin Trade Name Margie PRN Reason Stop Dose Admin Ceftriaxone Sodium 1 gm/ 50 mls @ 100 mls/hr 06/30/24 16:25 06/30/24 17:42 Sodium Chloride IV 06/30/24 16:54 100 mls/hr ONCE ONE Administration ORDERS Category Date Time Status XR chest portable Stat Exams 06/30/24 16:14 Completed Complete Blood Count Auto Diff Stat Lab 06/30/24 16:38 Completed Comprehensive Metabolic Panel Stat Lab 06/30/24 16:38 Completed Lactic Acid Stat Lab 06/30/24 16:14 Ordered PT INR [Prothrombin Time INR] Stat Lab 06/30/24 16:38 Completed PTT [Activated Partial Thrombo Time] Stat Lab 06/30/24 16:38 Completed Procalcitonin Stat Lab 06/30/24 16:38 Completed Urinalysis and Microscopic Stat Lab 06/30/24 18:00 Completed Blood Culture Stat Micro 06/30/24 16:30 Received Urine Culture Stat Micro 06/30/24 18:00 Received Venous Blood Gas Stat RT 06/30/24 16:38 Completed Medical Decision Narrative: This is a 49-year-old male history of hypertension, hyperlipidemia, obesity, type 2 diabetes, 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 Patient was seen yesterday, seen for right flank pain. Diagnosed with urinary tract infection. States that he did not crab picker his antibiotics for the urinary tract infection. States that he does not think he has been having fevers or chills. No night sweats. No abdominal pain, nausea, vomiting, chest pain, cough, shortness of breath, weakness, or any other concerns. Back pain is about the same as it was with no change. No neurologic deficits, urinary or bowel incontinence, or saddle anesthesia. History was obtained via conversation with patient and chart review, discussion with previous provider. On arrival, patient hemodynamically stable, alert, oriented x4, appropriate, GCS 15, moving all extremities spontaneously, pupils equal and reactive to light. Full physical exam performed and significant for chronically ill-appearing male no acute distress. Abdomen is soft, nontender, nondistended. Dressing overlying previous PEG tube removal appears normal and nontender. No drainage. Nontachycardic on my exam, normotensive. No lower extremity edema. Pulses equal and symmetric in upper and lower extremities. Speaking full sentences and clinically well. Differential includes contamination, bacteremia, sepsis, urinary tract infection, pyelonephritis, among others. Patient placed on continuous cardiac monitoring and continuous pulse ox with initial blood pressure 138/81, heart rate 107, saturation 100% on room air.Patient was given Rocephin 1 g for symptomatic management and correction of underlying abnormalities. Workup independently interpreted and significant for nonactionable CBC with downtrending white count. Patient's neutrophils have also normalized. Patient's VBG nonactionable, lactate falsely elevated in the setting of VBG not being transported on ice. Chemistry with improving potassium, urinalysis with improved signs of infection. I had a conversation with patient regarding need for admission versus home-going, patient agreeable for home-going. Appropriate on Levaquin, he picked it up on his way to the hospital today. Given patient presentation, workup, history, this most likely represents likely contaminated blood cultures. Because patient's blood culture still could be positive, close return precautions were discussed and patient is agreeable to home-going given that he is feeling better and his labs are improving. Because patient at baseline without signs or symptoms of clinical decompensation, deemed appropriate for discharge. Results were relayed to patient who voiced understanding and were agreeable to outpatient management and follow up. I discussed my clinical impression with patient and answered all questions. At this time, the evidence for any other entities in the differential is insufficient to warrant any further testing or ED observation. This was explained as well. Advisory was given that persistent or worsening symptoms require further evaluation. I confirmed the understanding of this discussion. Synthetic Plasterer disclaimer Much of this encounter note is an electronic electric organ inspector and repairer spoken language to printed text. Electronic electric organ inspector and repairer of the spoken language may permit errors. Although I have reviewed the note, some errors may still exist. Critical Care Critical Care Time Critical Care Time: No
[2024-06-30 16:53] LABS: Basophils # 0.1 K/mm3 (0-0.2); Basophils % 0.6 % (0.1-2.0); Eosinophils # 0.1 K/mm3 (0.0-0.4); Eosinophils % 0.8 % (0.1-12.0); Hematocrit 34.1 % (42.0-52.0); Hemoglobin 11.3 g/dL (14.1-18.0); Lymphocytes % 13.3 % (10-50); Mean Corpuscular HGB Conc 33.1 g/dL (31.8-35.4); Mean Corpuscular Hemoglobin 28.2 pg (27.0-31.2); Mean Platelet Volume 10.1 fl (7.4-10.4); Monocytes # 0.5 K/mm3 (0.1-1.0); Monocytes % 6.3 % (1.7-9.3); Nucleated Red Blood Cells # 0 10^3/uL; Nucleated Red Blood Cells % 0 %; Platelet Count 461 K/mm3 (142-424); Red Blood Count 4.01 M/mm3 (4.60-6.20); Red Cell Distribution Width 18.8 % (11.5-17.5); Red Cell Distribution Width-SD 58.4 fL; VBG Base Excess 4.8 mmol/L (-2.4-2.3); VBG HCO3 28.7 mmol/L (23-30); VBG Oxygen Saturation 65.7 % (50-70); VBG PCO2 42.2 mmol/L (35-51); VBG PH 7.45 mmol/L (7.31-7.41); VBG PO2 34.2 mmol/L (28-40); White Blood Count 7.7 K/mm3 (4.8-10.8)
[2024-06-30 16:57] LABS: Lactate Venous 2.1 mmol/L (0.4-2.0)
[2024-06-30 17:00] LABS: Alanine Aminotransferase 24 U/L (12-78); Albumin Level 3.6 g/dl (3.5-5.0); Albumin/Globulin Ratio 0.8 (1.1-1.8); Alkaline Phosphatase 79 U/L (38-126); Anion Gap 14.2 mEq/L (5-15); Aspartate Amino Transferase 36 U/L (17-59); Bilirubin,Total 1.2 mg/dl (0.2-1.3); Blood Urea Nitrogen 11 mg/dl (9-20); Calcium 9.1 mg/dl (8.4-10.2); Carbon Dioxide 30 mmol/L (22.0-30.0); Chloride 94 mmol/L (98-107); Creatinine Clearance Estimated 197 mL/min (50-200); Estimated Glomerular Filt Rate 143 ml/min (>60); GFR (African American) 173 ML/MIN (>60); Globulin 4.7 g/dL (1.3-3.2); Glucose 103 mg/dl (74-100); Potassium 3.2 mmoL/L (3.5-5.1); Sodium 135 mmol/L (136-145); Total Protein,Serum 8.3 g/dl (6.3-8.2)
[2024-06-30 17:01] LABS: Activated Partial Thrombo Time 26.6 seconds (22.8-30.6); INR 1.06 (0.9-1.1); Prothrombin Time 11.8 seconds (10.1-12.5)
[2024-06-30 17:16] LABS: Procalcitonin 0.187 ng/mL (0.0-2.0)
[2024-06-30] MEDS: CEFTRIAXONE 1 GM 1 GM in 0.9 % SODIUM CHLORIDE 50 ML IV (17:42)
[2024-06-30 18:01] LABS: Microscopic, Urine URINE MICROSCOPIC (MICROSCOPIC)
[2024-06-30 18:08] LABS: Appearance,Urine CLEAR (Clear); Bilirubin,Urine Negative (Negative); Blood, Urine Negative (Negative); Color,Urine YELLOW (Yellow); Glucose,Urine (UA) Negative (Negative); Ketones,Urine 1+ (Negative); Leukocyte Esterase,Urine 1+ (Negative); Nitrate,Urine Negative (Negative); Protein,Urine Negative (Negative); Specific Gravity, Urine 1.015 (1.005-1.030); Urobilinogen,Urine 0.2 EU/dl (0.2)
[2024-06-30 18:41] LABS: Bacteria,Urine 4+ /lpf; Mucus,Urine 4+ /lpf; WBC,Urine TNTC #/hpf (0-3); Yeast,Urine 1+ /lpf
--- NOTE | 2024-06-30 19:51 | PC.NURSE ---
shift change report given to barry hernandez
[2024-06-30 20:17] VITALS: BP 135/87; PULSE 89; RESP 20; TEMP 36.9; O2SAT 100
--- NOTE | 2024-07-01 22:37 | PC.NURSE ---
this RN made aware of positive blood cultures, MD notified. MD requested to call patient. This RN attempted to reach the patient, a message was left. Patient did call back, this RN spoke with the patient and informed him of the results and encouraged him to come back in. Patient stated he would be coming back in [facility].
== END 2024-06-30 20:14 | disposition home or self-care (01) ==
PROVIDERS: Emergency Provider Emergency Medicine; PCP Family Medicine
DX: R78.81 Bacteremia (principal)
CPT/HCPCS: 71045; 80053; 81001; 82803; 84145; 85025; 85610; 85730; 87040; 87077; 87086; 87186; 96365; 99283; J0696

== ENCOUNTER 2024-07-01 14:16 | Outpatient (RCR) | payer OTHER, SELFPAY | END 2024-07-01 23:59 | disposition home or self-care (01) | LOC: PT 14:16 | DX: M43.6 Torticollis (principal); C44.42 Squamous cell carcinoma of skin of scalp and neck; C00.1 Malignant neoplasm of external lower lip | CPT/HCPCS: 97110; 97163; 97530 ==

== ENCOUNTER 2024-07-01 23:50 | Inpatient (IN) | payer OTHER, SELFPAY ==
[2024-07-01 23:59] VITALS: BP 130/75; PULSE 50; RESP 20; TEMP 36.8; O2SAT 99; BMI 29.4
[2024-07-02] VITALS (10 sets, daily range): BP systolic 113–149; BP diastolic 57–95; PULSE 55–94; RESP 16–18; TEMP 36.8–37.1; O2SAT 97–100; BMI 29.9
--- NOTE | 2024-07-02 00:22 | HMH.EDGENADL ---
Discharge Plan Disposition Patient Disposition: Admitted Clinical Impressions Clinical Impression: MRSA bacteremia Discharge ED Provider: Danny Butcher General Adult HPI General Chief complaint: Recheck/Abnormal Lab/Rx Stated complaint: positive blood culture for infection Time Seen by Provider: 07/01/24 23:54 Mode of Arrival: Ambulatory Source of Information: Patient Description of Symptoms (Recalled from ER Triage Doc. by RN): Patient presents to ED after being called to come back to the ED since blood cultures were positive for MRSA. Pt denies fever/chills. Patient states some pain to right lower leg and neck. Wound vac in place to the lower right leg. History of Present Illness HPI narrative: 49-year-old male with history of head neck cancer status post reconstructive surgery in December of last year presents for positive blood cultures. He was seen here on June 29 and diagnosed with a urinary tract infection. His blood cultures at that time grew MRSA within about a day. He returned and was seen on the in the ER but was well-appearing, repeat cultures were ordered and patient was again discharged. One of his repeat cultures is again positive for MRSA. Patient was called back and he returns to the ER. He has a wound on the right lower extremity from where his bone graft was obtained. The wound is being managed with a wound VAC and home health. He denies any recent changes or worsening pain or redness. He denies any significant changes around his mandible where he had the reconstructive surgery performed. Overall, patient reports he just feels generally weak and ill but denies fever at home. Related Data Home Medications ?Medication ?Instructions ?Recorded ?Confirmed lisinopril 20 1 tab PO DAILY High blood pressure 11/08/18 02/12/24 mg-hydrochlorothiazide 25 mg tablet empagliflozin 12.5 mg-linaglipt PO 11/13/23 02/12/24 2.5 mg-metform ER 1,000 mg tablet,24hr (Trijardy XR) Previous Rx's ?Medication ?Instructions ?Recorded gabapentin 400 mg capsule 400 mg feeding tube TID #90 caps 02/12/24 docusate sodium 50 mg/5 mL oral 50 mg (5 mL) PO DAILY #150 mL 02/13/24 liquid famotidine 20 mg tablet 20 mg PO BID #60 tabs 02/13/24 zolpidem 5 mg tablet (Ambien) 5 mg PO HS PRN insomnia #30 tabs 02/17/24 oxycodone 5 mg tablet See Rx Instructions feeding tube 03/19/24 Q6H PRN pain #60 tabs levofloxacin 750 mg tablet 750 mg PO DAILY UTI 5 days #5 tabs 06/29/24 methocarbamol 500 mg tablet 1,000 mg (2 x 500 mg) PO Q8H PRN 06/29/24 muscle pain and spasm #30 tabs Allergies Allergy/AdvReac Type Severity Reaction Status Date / Time Penicillins Allergy Unknown Verified 06/29/24 11:47 allergy reaction PFSH [facility] Disclaimer: The information contained in this section may have been updated after the patient was seen, as this information can be updated by other users. 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 current occupational exposures/hazards: No caffeine: Yes Have you lived/traveled outside US in past 30 days?: No Contact w/someone who lives/traveled outside US past 30 days?: No Exposure to someone with infectious disease in past 14 days?: No Do you have a fever (greater than 100.4 F or 38 C)?: No Have you tested positive for COVID-19: No Exposed to someone with COVID-19 in past 14 days?: No Do you have a sore throat?: No Do you have a cough?: No Do you have any weakness?: No Do you have any diarrhea?: No Are you experiencing any unusual bleeding?: No Do you have any muscle aches/pain?: No Do you have any abdominal pain?: No Are you experiencing loss of taste or smell?: No Other Medical History Have you received the Flu Vaccine for this season: No Have you received the Pneumonia Vaccine: No ROS Obtained: Yes All systems reviewed & no additional complaints except as documented Physical Exam General General appearance: alert and in no apparent distress Head Head exam: atraumatic and other (Status post reconstructive head neck surgery, no evidence of soft tissue infection on exam) Eye Eye exam: Present normal appearance, PERRL and EOMI ENT ENT exam: Present normal oropharynx and normal external ear exam Neck Neck exam: Present normal inspection and full ROM Chest Chest inspection: Present normal inspection and symmetric chest wall rise; Absent tenderness Respiratory Respiratory exam: Present normal lung sounds bilaterally; Absent respiratory distress Cardiovascular Cardiovascular exam: Present regular rate and normal rhythm Abdominal Exam Abdominal exam: Present soft; Absent distention, tenderness or guarding Extremities Exam Extremities exam: Present other (Right lower extremity wound VAC in place, no significant surrounding erythema or tenderness) Back Exam Back exam: Present normal inspection; Absent tenderness Neurological Exam Neurological exam: Present alert and oriented X3; Absent motor sensory deficit Psychiatric Psychiatric exam: Present normal affect and normal mood Skin Skin exam: Present warm, dry and normal color Lymphatic Lymphatic Findings: no adenopathy Medical Decision Making Medical Records Medical records reviewed: Yes I reviewed the patient's medical records. Screening: Per USPSTF and CDC recommendations, given the prevalence of disease in our region, it is our hospital?s policy to screen for HIV and viral Hepatitis for all patients aged 18 and over and those with ongoing risk factors. Sebastien Inquiry Pt receiving controlled substance: No Sebastien was queried for this patient: No Vital Signs: 07/01/24 23:59 07/02/24 00:10 07/02/24 00:46 Temperature 98.3 F Temperature Source Oral Pulse Rate 83 83 Pulse Rate [Right Brachial] 50 L Respiratory Rate 20 Blood Pressure 149/95 H 125/85 Blood Pressure [Right Arm] 130/75 Blood Pressure Mean Blood Pressure Mean [Right Arm] 93 Blood Pressure Source [Right Arm] Automatic Cuff Blood Pressure Position [Right Arm] Supine 02 Sat by Pulse Oximetry 99 98 99 Oxygen Delivery Method Room Air 07/02/24 01:15 07/02/24 01:30 07/02/24 02:09 Temperature 98.4 F Temperature Source Pulse Rate 81 80 88 Pulse Rate [Right Brachial] Respiratory Rate 16 Blood Pressure 140/88 134/80 131/82 Blood Pressure [Right Arm] Blood Pressure Mean 105 103 Blood Pressure Mean [Right Arm] Blood Pressure Source [Right Arm] Blood Pressure Position [Right Arm] 02 Sat by Pulse Oximetry 100 100 Oxygen Delivery Method Room Air Lab Data Lab results reviewed: Yes I reviewed the patient's lab results. Lab Results 07/02/24 00:34: WBC 8.1, RBC 3.49 L, Hgb 9.9 L, Hct 29.8 L, MCV 85.4, MCH 28.4, MCHC 33.2, RDW 18.8 H, Plt Count 352, MPV 9.9, Neut % (Auto) 79.0, Lymph % (Auto) 11.1, [place] % (Auto) 8.1, Eos % (Auto) 0.5, Baso % (Auto) 0.4, Neut # (Auto) 6.4, Lymph # (Auto) 0.9, [place] # (Auto) 0.7, Eos # (Auto) 0.0, Baso # (Auto) 0.0, Sodium 132 L, Potassium 3.3 L, Chloride 93 L, Carbon Dioxide 31 H, Anion Gap 11.3, BUN 12, Creatinine 0.70, Estimated Creat Clear 166, Estimated GFR 119, Est GFR ( Amer) 144, Glucose 102 H, Calcium 8.8, Total Bilirubin 1.1, AST 25 D, ALT 17 D, Alkaline Phosphatase 63, Total Protein 7.2, Albumin 3.0 L D, Globulin 4.2 H, Albumin/Globulin Ratio 0.7 L 07/02/24 00:34 07/02/24 00:34 Orders (Tests/Meds): ED MEDICATIONS Generic Name Dose Route Start Last Admin Trade Name Freq PRN Reason Stop Dose Admin Acetaminophen 650 mg 07/02/24 01:38 Acetaminophen 325mg Tab PO 08/01/24 01:37 Q6HP PRN Fever or Mild Pain (1-3) Vancomycin HCl 2,250 mg/ 250 mls @ 125 mls/hr 07/02/24 00:30 07/02/24 00:50 Sodium Chloride IV 07/02/24 02:29 125 mls/hr ONCE ONE Administration Miscellaneous 1 each 07/02/24 00:30 07/02/24 00:50 Vancomycin Consult Request NOTAPPLIC 08/01/24 00:29 Not Given CONSULT PHARMACY [facility] ORDERS Category Date Time Status CBC w/Auto Diff [Complete Blood Count Auto Diff] Stat Lab 07/02/24 00:34 Completed CMP [Comprehensive Metabolic Panel] Stat Lab 07/02/24 00:34 Completed UA [Urinalysis and Microscopic] Stat Lab 07/02/24 00:20 Ordered Blood Culture Stat Micro 07/02/24 00:20 Received Medical Decision Narrative: 49-year-old male with history of head neck reconstructive surgery in December, recent ED visit for urinary tract infection, returns to the ER after positive blood cultures. History was obtained via interactive discussion with patient, chart review. On arrival, patient is [afebrile, hemodynamically stable, satting appropriately, alert, oriented x4, GCS 15], moving all extremities spontaneously. Full physical exam performed and significant for no obvious skin source of infection. Differential includes but is not limited to MRSA bacteremia, urinary tract infection, blood culture contaminant. Patient was given vancomycin for symptomatic management and correction of underlying abnormalities. Workup initiated including CBC CMP blood cultures urinalysis. On re-evaluation, patient [remains afebrile, HD stable.] Laboratory workup independently interpreted by me and significant for no significant leukocytosis, mild anemia, mild hyponatremia and hypokalemia. Urinalysis not yet back. Given patient history, exam and workup, patient's presentation most likely represents MRSA bacteremia. Interactive discussion was had with Dr. Vazquez who accepted the patient on behalf of of Dr. Ibrahim. Procedures Risk/Benefits of Procedure(s) Were Explained: Yes Critical Care Critical Care Time Critical Care Time: No
[2024-07-02] MEDS: VANCOMYCIN HCL 2,250 MG in 0.9 % SODIUM CHLORIDE 250 ML 125 MG IV (00:50)
[2024-07-02 00:56] LABS: Alanine Aminotransferase 17 U/L (12-78); Albumin/Globulin Ratio 0.7 (1.1-1.8); Alkaline Phosphatase 63 U/L (38-126); Anion Gap 11.3 mEq/L (5-15); Aspartate Amino Transferase 25 U/L (17-59); Bilirubin,Total 1.1 mg/dl (0.2-1.3); Blood Urea Nitrogen 12 mg/dl (9-20); Calcium 8.8 mg/dl (8.4-10.2); Carbon Dioxide 31 mmol/L (22.0-30.0); Chloride 93 mmol/L (98-107); Creatinine Clearance Estimated 166 mL/min (50-200); Estimated Glomerular Filt Rate 119 ml/min (>60); GFR (African American) 144 ML/MIN (>60); Globulin 4.2 g/dL (1.3-3.2); Glucose 102 mg/dl (74-100); Potassium 3.3 mmoL/L (3.5-5.1); Sodium 132 mmol/L (136-145); Total Protein,Serum 7.2 g/dl (6.3-8.2)
[2024-07-02 01:08] LABS: Basophils % 0.4 % (0.1-2.0); Eosinophils % 0.5 % (0.1-12.0); Hematocrit 29.8 % (42.0-52.0); Hemoglobin 9.9 g/dL (14.1-18.0); Lymphocytes # 0.9 K/mm3 (0.7-4.5); Lymphocytes % 11.1 % (10-50); Mean Corpuscular HGB Conc 33.2 g/dL (31.8-35.4); Mean Corpuscular Hemoglobin 28.4 pg (27.0-31.2); Mean Corpuscular Volume 85.4 fl (80-94); Mean Platelet Volume 9.9 fl (7.4-10.4); Monocytes # 0.7 K/mm3 (0.1-1.0); Monocytes % 8.1 % (1.7-9.3); Neutrophils # 6.4 K/mm3 (1.8-7.8); Nucleated Red Blood Cells # 0 10^3/uL; Nucleated Red Blood Cells % 0 %; Platelet Count 352 K/mm3 (142-424); Red Blood Count 3.49 M/mm3 (4.60-6.20); Red Cell Distribution Width 18.8 % (11.5-17.5); Red Cell Distribution Width-SD 58.4 fL; White Blood Count 8.1 K/mm3 (4.8-10.8)
[2024-07-02] MEDS: OXYCODONE 5MG IMMEDIATE RELEASE TABLET 10 MG PO ×4 (03:16→20:41)
--- NOTE | 2024-07-02 04:31 | PC.NURSE ---
Alert and oriented. Ambulates to restroom independently. Wound vac in place to RLE, home health nurse cares for this, patient brought supplies, states it is due for a dressing change tomorrow. Small dressing noted to lower right extremity, patient states this was blister that opened and home health nurse covered. PEG tube removed per patient, scab noted, dressing in place. Room air. Complained of pain one time, treated per may. Call light in reach.
[2024-07-02 07:27] LABS: Microscopic, Urine URINE MICROSCOPIC (MICROSCOPIC)
[2024-07-02 07:53] LABS: Appearance,Urine CLEAR (Clear); Bilirubin,Urine Negative (Negative); Blood, Urine Negative (Negative); Color,Urine YELLOW (Yellow); Glucose,Urine (UA) Negative (Negative); Ketones,Urine Negative (Negative); Leukocyte Esterase,Urine TRACE (Negative); Nitrate,Urine Negative (Negative); Protein,Urine Negative (Negative); Specific Gravity, Urine 1.025 (1.005-1.030)
--- NOTE | 2024-07-02 08:05 | HMH.PHAINT1 ---
Pharmacy Intervention Comments: home medication list verified using list from outpatient pharmacy
[2024-07-02 08:37] LABS: Bacteria,Urine Trace /lpf; Yeast,Urine Occasional /lpf
--- NOTE | 2024-07-02 08:38 | EXP.HP ---
History of Present Illness *Admission Date: 07/01/24 *Reason for visit:: bacteremia *History of present illness: 49-year-old male with history of head neck cancer status post reconstructive surgery in December of last year presents for positive blood cultures. He was seen here on June 29 and diagnosed with a urinary tract infection. His blood cultures at that time grew MRSA within about a day. He returned and was seen on the in the ER but was well-appearing, repeat cultures were ordered and patient was again discharged. One of his repeat cultures is again positive for MRSA. Patient was called back and he returns to the ER. He has a wound on the right lower extremity from where his bone graft was obtained. The wound is being managed with a wound VAC and home health. He denies any recent changes or worsening pain or redness. He denies any significant changes around his mandible where he had the reconstructive surgery performed. Overall, patient reports he just feels generally weak and ill but denies fever at home. (above as per ER physician) [facility] Disclaimer: The information contained in this section may have been updated after the patient was seen, as this information can be updated by other users. 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 Hypertension Hyperlipidemia Type 2 diabetes mellitus Open wound of right lower leg Kidney stones Hernia, umbilical Surgical History (Updated 07/02/24 @ 11:07 by Carson Ibrahim MD) Status post skin graft History of radical dissection of left side of neck S/P partial glossectomy Status post tracheostomy History of submandibular gland removal History of ureter stent Family History (Updated 07/02/24 @ 08:40 by LUL Plunkett) Other Coronary artery disease Social History (Updated 07/02/24 @ 02:49 by Debora Davidson RN) Smoking Status: Never smoker second hand exposure: No alcohol intake: never substance use type: denies use current occupational status: employed Travel in the last 8 weeks: None household members: spouse housing: house 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 current occupational exposures/hazards: No caffeine: Yes Have you lived/traveled outside [place] in past 30 days?: No Contact w/someone who lives/traveled outside US past 30 days?: No Exposure to someone with infectious disease in past 14 days?: No Do you have a fever (greater than 100.4 F or 38 C)?: No Have you tested positive for COVID-19: No Exposed to someone with COVID-19 in past 14 days?: No Do you have a sore throat?: No Do you have a cough?: No Do you have any weakness?: No Are you experiencing any nausea/vomitting?: No Do you have any diarrhea?: No Are you experiencing any unusual bleeding?: No Do you have any muscle aches/pain?: No Do you have any abdominal pain?: No Are you experiencing loss of taste or smell?: No Other Medical History Have you received the Flu Vaccine for this season: No Have you received the Pneumonia Vaccine: No Review of Systems Constitutional Constitutional: Denies fatigue, Denies headache(s) and Reports weakness Eyes Eyes: Denies blurry vision and Denies diplopia ENT Ears, Nose, Mouth, and Throat: Denies headache(s), Denies nasal congestion, Denies sore throat and Denies vertigo *Cardiovascular Cardiovascular: Denies chest pain, Denies dyspnea and Denies leg edema *Respiratory Respiratory: Denies cough and Denies dyspnea *Gastrointestinal Gastrointestinal: Reports abdominal pain, Reports loose stools, Denies nausea and Denies vomiting *Genitourinary Genitourinary: Denies difficulty urinating and Denies dysuria *Musculoskeletal Musculoskeletal: Denies arthralgias and Denies myalgias *Neurologic Neurologic: Denies headache(s), Denies vertigo and Reports weakness Endocrine Endocrine: Denies fatigue Meds Home Medications and Allergies Home Medications ?Medication ?Instructions ?Recorded ?Confirmed ?Type famotidine 20 mg tablet 20 mg PO HSP PRN Heartburn 07/02/24 07/02/24 History gabapentin 600 mg tablet 600 mg PO TID 07/02/24 07/02/24 History oxycodone 10 mg tablet 10 mg PO Q4HP PRN Severe Pain 07/02/24 07/02/24 History (Scale Score 7-10) polyethylene glycol 3350 17 17 g PO DAILY 07/02/24 07/02/24 History gram/dose oral powder trazodone 100 mg tablet 100 mg PO HS 07/02/24 07/02/24 History New Prescriptions to Start Prescriptions: Allergies Allergy/AdvReac Type Severity Reaction Status Date / Time Penicillins Allergy Unknown Verified 06/29/24 11:47 allergy reaction Exam Data for Last 24 hours Vital signs and Labs for Last 24 Hours: Temp Pulse Resp BP Pulse Ox O2 Del Method 98.2 F 57 L 16 143/69 H 97 Room Air 07/02/24 04:00 07/02/24 04:00 07/02/24 04:00 07/02/24 04:00 07/02/24 04:00 07/02/24 06:43 Laboratory Results - last 24 hr 07/02/24 00:34: WBC 8.1, RBC 3.49 L, Hgb 9.9 L, Hct 29.8 L, MCV 85.4, MCH 28.4, MCHC 33.2, RDW 18.8 H, Plt Count 352, MPV 9.9, Neut % (Auto) 79.0, Lymph % (Auto) 11.1, [place] % (Auto) 8.1, Eos % (Auto) 0.5, Baso % (Auto) 0.4, Neut # (Auto) 6.4, Lymph # (Auto) 0.9, [place] # (Auto) 0.7, Eos # (Auto) 0.0, Baso # (Auto) 0.0, Sodium 132 L, Potassium 3.3 L, Chloride 93 L, Carbon Dioxide 31 H, Anion Gap 11.3, BUN 12, Creatinine 0.70, Estimated Creat Clear 166, Estimated GFR 119, Est GFR ( Amer) 144, Glucose 102 H, Calcium 8.8, Total Bilirubin 1.1, AST 25 D, ALT 17 D, Alkaline Phosphatase 63, Total Protein 7.2, Albumin 3.0 L D, Globulin 4.2 H, Albumin/Globulin Ratio 0.7 L 07/02/24 07:20: Urine Color Yellow, Urine Appearance Clear, Urine pH 6.0, Ur Specific [place] 1.025, Urine Protein Negative, Urine Glucose (UA) Negative, Urine Ketones Negative, Urine Blood Negative, Urine Nitrate Negative, Urine Bilirubin Negative, Urine Urobilinogen 1.0, Ur Leukocyte Esterase Trace, Urine RBC None, Urine WBC 5-10, Ur Squamous Epith Cells 3-5, Urine Bacteria Trace, Urine Yeast Occasional I & O for Last 24 hours: Intake & Output 06/29/24 06/30/24 07/01/2425 11:59 11:59 11:59 11:59 Weight 209 lb 9.6 oz Constitutional Constitutional: no acute distress *Routine HEENT Exam Head: Present normocephalic and atraumatic Eye: Present EOMI and PERRL ENT: Present mucous membranes dry *Routine Neck Exam Neck: Present supple and full ROM *Routine Respiratory Exam Respiratory: Present CTA bilaterally *Routine Cardiovascular Exam Cardiovascular: Present RRR *Routine Abdominal Exam Abdominal: Present soft and normoactive bowel sounds; Absent tenderness *Routine Rectal Exam Rectal:: deferred *Routine Genitalia Exam Genitalia:: deferred *Routine Extremities Exam Extremities: Absent cyanosis, clubbing or edema *Routine Skin Exam Skin: Present intact; Absent erythema *Routine Neurological Exam Neurological: Present alert and oriented X3 Assessment and Plan *Assessment and plan (1) MRSA bacteremia: Status: Acute Category: Medical Code(s): R78.81 - Bacteremia; B95.62 - Methicillin resistant Staphylococcus aureus infection as the cause of diseases classified elsewhere (2) Diarrhea: Status: Acute Category: Medical Code(s): R19.7 - Diarrhea, unspecified (3) History of head or neck cancer: Status: Acute Category: Medical Code(s): Z85.89 - Personal history of malignant neoplasm of other organs and systems (4) Type 2 diabetes mellitus: Status: Chronic Category: Medical Code(s): E11.9 - Type 2 diabetes mellitus without complications (5) Hyperlipidemia: Status: Chronic Category: Medical Code(s): E78.5 - Hyperlipidemia, unspecified (6) Hypertension: Status: Chronic Category: Medical Code(s): I10 - Essential (primary) hypertension (7) Acute UTI: Status: Acute Category: Medical Code(s): N39.0 - Urinary tract infection, site not specified (8) Open wound of right lower leg: Status: Acute Category: Medical Code(s): S81.801A - Unspecified open wound, right lower leg, initial encounter Plan Patient has been started on IV abx. Will get a stool panel and discuss further care with Dr. Ibrahim. Dr. Ibrahim entry - Saw patient, agree with above note. Continue antibiotics as started in the ER, consult PT for wound vac change, await stool panel results.
--- NOTE | 2024-07-02 09:01 | EXP.PHA.CONS ---
Pharmacy Consult Date: 07/02/24 Time: 09:02 Referring provider: DR LOPEZ Reason for Consult:: VANCOMYCIN DOSING CONSULT Allergies Allergy/AdvReac Type Severity Reaction Status Date / Time Penicillins Allergy Unknown Verified 06/29/24 11:47 allergy reaction Home Medications ?Medication ?Instructions ?Recorded ?Confirmed ?Type famotidine 20 mg tablet 20 mg PO HSP PRN Heartburn 07/02/24 07/02/24 History gabapentin 600 mg tablet 600 mg PO TID 07/02/24 07/02/24 History oxycodone 10 mg tablet 10 mg PO Q4HP PRN Severe Pain 07/02/24 07/02/24 History (Scale Score 7-10) polyethylene glycol 3350 17 17 g PO DAILY 07/02/24 07/02/24 History gram/dose oral powder trazodone 100 mg tablet 100 mg PO HS 07/02/24 07/02/24 History New Prescriptions to Start Prescriptions: Height: 1.78 m Weight: 95.073 kg Laboratory Results:: Laboratory Results - last 24 hr 07/02/24 00:34: WBC 8.1, RBC 3.49 L, Hgb 9.9 L, Hct 29.8 L, MCV 85.4, MCH 28.4, MCHC 33.2, RDW 18.8 H, Plt Count 352, MPV 9.9, Neut % (Auto) 79.0, Lymph % (Auto) 11.1, [place] % (Auto) 8.1, Eos % (Auto) 0.5, Baso % (Auto) 0.4, Neut # (Auto) 6.4, Lymph # (Auto) 0.9, [place] # (Auto) 0.7, Eos # (Auto) 0.0, Baso # (Auto) 0.0, Sodium 132 L, Potassium 3.3 L, Chloride 93 L, Carbon Dioxide 31 H, Anion Gap 11.3, BUN 12, Creatinine 0.70, Estimated Creat Clear 166, Estimated GFR 119, Est GFR ( Amer) 144, Glucose 102 H, Calcium 8.8, Total Bilirubin 1.1, AST 25 D, ALT 17 D, Alkaline Phosphatase 63, Total Protein 7.2, Albumin 3.0 L D, Globulin 4.2 H, Albumin/Globulin Ratio 0.7 L 07/02/24 07:20: Urine Color Yellow, Urine Appearance Clear, Urine pH 6.0, Ur Specific [place] 1.025, Urine Protein Negative, Urine Glucose (UA) Negative, Urine Ketones Negative, Urine Blood Negative, Urine Nitrate Negative, Urine Bilirubin Negative, Urine Urobilinogen 1.0, Ur Leukocyte Esterase Trace, Urine RBC None, Urine WBC 5-10, Ur Squamous Epith Cells 3-5, Urine Bacteria Trace, Urine Yeast Occasional Medical History: Medical History (Updated 07/02/24 @ 08:43 by LUL Plunkett) Kidney stones Hernia, umbilical Cancer of jaw bone Assessment and Plan Assessment and plan all Dx Assessment and Plan for all problems:: Pharmacokinetic dosing service Objective: Age: 49 yo Serum creatinine: 0.7 mg/dL Height: 70.1 Inches Weight (kg): 95.073 Diagnosis: BACTEREMIA Assessment: IBW (kg): 73.23 Dosing wt(kg): 95.073 Estimated Creatinine clearance (ml/min): 130 Clearance limited to 130 ml/min to reduce risk of overdosing. CRCL method: Cockcroft and Gault using ibw(default). Drug selected: Vancomycin Loading dose (mg): 2250 MG Vd (liters): 61.8 (factor used: 0.65 L/kg) Kartik (hr-1): 0.112 Half life (hrs): 6.19 CLvanco=?? 6.922 L/hr Recommended dose: 1750 mg Interval: 12 hrs Infusion time (hrs): 2.0 Predicted peak (mcg/mL): 34.3 Predicted trough (mcg/mL): 11.19 Total body weight is being used for vancomycin dosing. Recommendations: Give Vancomycin 1750 mg q 12 hrs with an expected Cpeak of 34.3 mcg/ml and an expected Ctrough of 11.19 mcg/ml AUC 0-24 /SABINA Data: SABINA 0.5 mcg/mL:?? AUC/SABINA:? 1011.3 SABINA 1.0 mcg/mL:?? AUC/SABINA:? 505.6 --------- SABINA 1.5 mcg/mL:?? AUC/SABINA:? 337.1 SABINA 2.0 mcg/mL:?? AUC/SABINA:? 252.8 Thank you for the consult
--- NOTE | 2024-07-02 09:03 | SW/DCPLANNER ---
Addendum entered by Dee Mcneal 07/05/24 13:33: Per [facility] patient does not have an out of pocket expense and medication will be delivered to patient's home this evening. I will update MD and patient. Addendum entered by Dee Mcneal 07/05/24 10:39: Per [facility] services will begin tomorrow morning at 8AM. I am waiting to hear back from [facility] regarding IV medication. Addendum entered by Dee Mcneal 07/05/24 08:40: Patient will require IV Vanc Q12 at time of discharge. Patient stated that he is currently established / [facility]. Patient prefers to return home and administer IV antibiotics w/ [facility] to follow three days a week. I will fax patient information to [facility] for IV antibiotics. I will follow up w/ patient once I know out of pocket expense for IV antibiotic. Patient will discharge home today. Original Note: This patient is currently established [facility]. I will follow up w/ [facility] once patient is medically stable for discharge. Discharge date is unknown at this time.
[2024-07-02 09:48] LABS: Hepatitis C Ab Qual. W/ RFX NEGATIVE (Negative)
[2024-07-02] MEDS: VANCOMYCIN/WATER FOR INJ (PEG) 1.75 GM/350 ML PIGGYBACK IV (12:49)
[2024-07-02] MEDS: GABAPENTIN 600MG TABLET 600 MG PO ×2 (12:49→20:41)
--- NOTE | 2024-07-02 13:03 | HMH.PTWOUND ---
Rehab Inpt Wound Evaluation Rehab IP Wound Evaluation Start: 07/02/24 08:59 Freq: ONCE Status: Active Protocol: Document 07/02/24 12:52 JESSICA (Rec: 07/02/24 13:03 PHOSARIAH [id number]) Rehab PT Wound Assessment Subjective Subjective 49-year-old male with history of head neck cancer status post reconstructive surgery in December of last year presents for positive blood cultures. He was seen here on June 29 and diagnosed with a urinary tract infection. His blood cultures at that time grew MRSA within about a day. He returned and was seen on the in the ER but was well- appearing, repeat cultures were ordered and patient was again discharged. One of his repeat cultures is again positive for MRSA. Patient was called back and he returns to the ER. He has a wound on the right lower extremity from where his bone graft was obtained. The wound is being managed with a wound VAC and home health. He denies any recent changes or worsening pain or redness. He denies any significant changes around his mandible where he had the reconstructive surgery performed. Overall, patient reports he just feels generally weak and ill but denies fever at home. He reports wound VAC dressing changes were being performed -- via home health prior to adm. Wound Right Lateral Calf Wound Type graft removal site Is This a Chronic Wound Yes Wound Length (cm) 10.9 Wound Width (cm) 7.0 Wound Depth (cm) 0.1 Wound Bed Appearance Beefy Red Percentage Granulated (%) 100 Wound Margins Description Well Defined Surrounding Tissue Appearance [place] Wound Drainage Description Serosanguineous Drainage Amount Scant Drainage Odor No Odor Packing Type Woundvac Sponge Primary Dressing Transparent Drape Wound Debridement Method Gauze,Mechanical Wound Debridement Amount of Tissue None Removed Dressing Change Patient Tolerance Tolerated Well Plan/Recommendation Comment Will continue wound VAC dressing change 3 days per week as indicate until pt is ready for d/c. Eval Complexity Eval Charge Codes 65320 - High Complexity PHYSICIAN CERTIFICATION: I certify the specified therapy services for Henny Daniels JR are required, authorized, and reviewed every 30 days.
--- NOTE | 2024-07-02 17:42 | PC.NURSE ---
patient is alert and oriented x4, remains on room air tolerating well. wound vac changed this shift per PT. has c/o lower back pain and states that the pain is from the bed. treated per MAY. new IV placed in the right wrist due to previous IV leaking. patient has not had a BM this shift but it aware that a sample is needed, hat placed in toilet. continuing IV abx. call light within reach, no further requests at this time.
[2024-07-02] MEDS: TRAZODONE 50MG TABLET 100 MG PO (20:41)
[2024-07-02] MEDS: MORPHINE 2MG/ML SYRINGE 2 MG IV (22:29)
[2024-07-03] MEDS: VANCOMYCIN/WATER FOR INJ (PEG) 1.75 GM/350 ML PIGGYBACK IV ×2 (01:26→13:01)
[2024-07-03] MEDS: OXYCODONE 5MG IMMEDIATE RELEASE TABLET 10 MG PO ×4 (01:31→19:26)
--- NOTE | 2024-07-03 02:02 | PC.NURSE ---
notified Yonis SANCHEZ of positive blood cultures at this time.
[2024-07-03 04:00] VITALS: BP 118/74; PULSE 58; RESP 18; TEMP 36.7; O2SAT 92; BMI 30.2
[2024-07-03] MEDS: MORPHINE 2MG/ML SYRINGE 2 MG IV (06:19)
--- NOTE | 2024-07-03 06:35 | PC.NURSE ---
Pt A&OX4 and has tolerated room air. Lung sounds clear and bowel sounds active. Pt has received Iv abx. Wound vac has remained in place. Pt has complained of lower back pain multiple times and was medicated per MAY. Pt still unable to produce stool sample. He is aware needed sample. Currently resting with call light within reach.
[2024-07-03 07:24] LABS: Alanine Aminotransferase 12 U/L (12-78); Albumin Level 2.6 g/dl (3.5-5.0); Albumin/Globulin Ratio 0.7 (1.1-1.8); Alkaline Phosphatase 64 U/L (38-126); Anion Gap 9.4 mEq/L (5-15); Aspartate Amino Transferase 24 U/L (17-59); Bilirubin,Total 0.9 mg/dl (0.2-1.3); Blood Urea Nitrogen 5 mg/dl (9-20); Calcium 8.4 mg/dl (8.4-10.2); Carbon Dioxide 30 mmol/L (22.0-30.0); Chloride 99 mmol/L (98-107); Creatinine Clearance Estimated 239 mL/min (50-200); Estimated Glomerular Filt Rate 176 ml/min (>60); GFR (African American) 213 ML/MIN (>60); Globulin 3.9 g/dL (1.3-3.2); Glucose 104 mg/dl (74-100); Potassium 3.4 mmoL/L (3.5-5.1); Sodium 135 mmol/L (136-145); Total Protein,Serum 6.5 g/dl (6.3-8.2)
[2024-07-03 08:00] VITALS: BP 111/65; PULSE 87; RESP 18; TEMP 37.1; O2SAT 95
[2024-07-03] MEDS: GABAPENTIN 600MG TABLET 600 MG PO ×3 (08:10→20:27)
--- NOTE | 2024-07-03 08:54 | P.PN_ITS ---
Subjective *Date: 07/03/24 *Time: 08:54 Interval history: Patient reports increased low back pain overnight. He thinks it may be due to the bed. He has not had a bowel movement. Medical Exam Vital signs and Labs for Last 24 Hours: Vital Signs Temp Pulse Resp BP Pulse Ox O2 Del Method 07/03/24 08:00 98.8 F 87 18 111/65 95 Room Air 07/03/24 08:00 Room Air 07/03/24 06:55 Room Air 07/03/24 05:00 Room Air 07/03/24 04:00 98.1 F 58 L 18 118/74 92 L Room Air 07/03/24 03:00 Room Air 07/03/24 01:00 Room Air 07/02/24 23:00 Room Air 07/02/24 21:00 Room Air 07/02/24 20:00 Room Air 07/02/24 20:00 98.6 F 81 17 136/87 100 Room Air 07/02/24 18:41 Room Air 07/02/24 17:00 Room Air 07/02/24 16:00 98.3 F 55 L 18 113/57 L 98 Room Air 07/02/24 15:00 Room Air 07/02/24 13:00 Room Air 07/02/24 09:00 Room Air Intake and Output 07/02/24 07/03/24 07/03/24 23:59 07:59 15:59 Intake Total 730 / 1680 350 / 710 360 / 710 Output Total 275 / 1425 1250 / 1625 375 / 1625 Balance 455 / 255 -900 / -915 -15 / -915 Intake: Intake, Oral Amount 480 / 1080 360 / 360 Intake, Total IV Amount 250 / 600 350 / 350 Vancomycin/Water For Inj (Peg) 250 / 600 350 / 350 1.75 gm In 350 ml @ 175 mls/hr IV Q12H [facility] Rx#:[id number] Output: Output, Urine Amount 275 / 1425 1250 / 1625 375 / 1625 Other: Number of Unmeasured Voids 0 Weight 211 lb 1.6 oz Patient Weight 07/03/24 23:59 Weight 211 lb 1.6 oz Laboratory Results - last 24 hr 07/02/24 00:34: HCV Ab HANSA w/Rflx PCR Qn Negative 07/03/24 06:25: Sodium 135 L, Potassium 3.4 L, Chloride 99, Carbon Dioxide 30, Anion Gap 9.4, BUN 5 L D, Creatinine 0.50 L D, Estimated Creat Clear 239, Estimated GFR 176, Est GFR ( Amer) 213 D, Glucose 104 H, Calcium 8.4, Total Bilirubin 0.9, AST 24, ALT 12 D, Alkaline Phosphatase 64, Total Protein 6.5, Albumin 2.6 L D, Globulin 3.9 H, Albumin/Globulin Ratio 0.7 L I & O for Labs for Last 24 Hours: Intake & Output 06/30/24 07/01/24 07/02/24 07/03/24 23:59 23:59 23:59 23:59 Intake Total 1330 / 1680 710 / 710 Output Total 1025 / 1425 1625 / 1625 Balance 305 / 255 -915 / -915 Weight 205 lb 209 lb 9.6 oz 211 lb 1.6 oz Microbiology Reports for the Last 24 Hours: Microbiology 07/02/24 01:09 Blood Blood Culture - Preliminary NO GROWTH AFTER 24 HOURS 07/02/24 00:34 Blood Blood Culture - Preliminary NO GROWTH AFTER 24 HOURS Constitutional: Present no acute distress Respiratory: Present normal respiratory effort Cardiac: Present Reg Rate and Rhythm GI: Present normal bowel sounds; Absent tenderness Extremities: Present normal inspection and full ROM Skin: Present wounds (right lateral leg, wound vac in place); Absent erythema Neuro: Present Grossly Intact and moves all extremities Assessment and Plan *Assessment and plan (1) MRSA bacteremia: Status: Acute Category: Medical Code(s): R78.81 - Bacteremia; B95.62 - Methicillin resistant Staphylococcus aureus infection as the cause of diseases classified elsewhere (2) Diarrhea: Status: Acute Category: Medical Code(s): R19.7 - Diarrhea, unspecified (3) History of head or neck cancer: Status: Acute Category: Medical Code(s): Z85.89 - Personal history of malignant neoplasm of other organs and systems (4) Type 2 diabetes mellitus: Status: Chronic Category: Medical Code(s): E11.9 - Type 2 diabetes mellitus without complications (5) Hyperlipidemia: Status: Chronic Category: Medical Code(s): E78.5 - Hyperlipidemia, unspecified (6) Hypertension: Status: Chronic Category: Medical Code(s): I10 - Essential (primary) hypertension (7) Acute UTI: Status: Acute Category: Medical Code(s): N39.0 - Urinary tract infection, site not specified (8) Open wound of right lower leg: Status: Acute Category: Medical Code(s): S81.801A - Unspecified open wound, right lower leg, initial encounter Plan Continue current treatment, OK to resume MiraLax. H/H is pending.
[2024-07-03 09:36] LABS: Adenovirus F 40/41, stool Not Detected (NotDetected); Astrovirus Not Detected (NotDetected); Campylobacter Not Detected (NotDetected); Cryptosporidium Not Detected (NotDetected); Cyclospora Cayetanesis Not Detected (NotDetected); Entamoeba histolytica Not Detected (NotDetected); Enteroaggregative E coli Not Detected (NotDetected); Enteropathogenic E coli Not Detected (NotDetected); Enterotoxigenic E coli Not Detected (NotDetected); Giardia lamblia Not Detected (NotDetected); Norovirus Not Detected (NotDetected); Plesimonas Shigalloides, PCR Not Detected (NotDetected); Rotavirus A Not Detected (NotDetected); Salmonella, PCR Not Detected (NotDetected); Sapovirus Not Detected (NotDetected); Shiga-like toxin E coli Not Detected (NotDetected); Shigella Enterovasive E coli Not Detected (NotDetected); Vibrio Cholerae Not Detected (NotDetected); Vibrio, PCR Not Detected (NotDetected); Yersinia Entercolitica, PCR Not Detected (NotDetected)
[2024-07-03 11:52] LABS: Clostridium Difficile A/B, PCR Detected (NotDetected)
[2024-07-03] MEDS: METRONIDAZ/SOD CHL 500 MG/100 ML PIGGYBACK 100 MG IV ×2 (12:29→20:27)
[2024-07-03 12:38] LABS: Vancomycin,Trough 15.5 ug/mL (5.0-10.0)
[2024-07-03 16:00] VITALS: BP 137/68; PULSE 77; RESP 18; TEMP 36.5; O2SAT 98
--- NOTE | 2024-07-03 16:48 | PC.NURSE ---
a&ox4. resting supine in bed. wound vac in place to RLE. dressing to R tai and abdomen changed this shift. IV abx given per may. pt stool collected this shift and tested positive for C.Diff. notified and verbal order for IV Flagyl TID given and order sent to pharmacy. pt placed in contact enteric precautions and educated on the diagnosis. pt treated per may for back/neck pain this shift. no needs at this time. call light within reach.
[2024-07-03 17:40] LABS: Vancomycin,Peak 32.1 ug/ml (11-39)
[2024-07-03 19:39] VITALS: BP 130/70; PULSE 84; RESP 17; TEMP 36.5; O2SAT 99
[2024-07-03] MEDS: TRAZODONE 50MG TABLET 100 MG PO (20:27)
[2024-07-04] MEDS: MORPHINE 2MG/ML SYRINGE 2 MG IV (00:13)
[2024-07-04] MEDS: VANCOMYCIN/WATER FOR INJ (PEG) 1.75 GM/350 ML PIGGYBACK IV ×2 (00:13→13:01)
[2024-07-04] MEDS: METRONIDAZ/SOD CHL 500 MG/100 ML PIGGYBACK 100 MG IV ×3 (03:46→20:29)
[2024-07-04 04:00] VITALS: BP 119/79; PULSE 74; RESP 16; TEMP 36.6; O2SAT 94
[2024-07-04] MEDS: OXYCODONE 5MG IMMEDIATE RELEASE TABLET 10 MG PO ×5 (04:50→20:58)
[2024-07-04 08:00] VITALS: BP 123/76; PULSE 108; RESP 18; TEMP 36.4; O2SAT 98
[2024-07-04 08:14] VITALS: BMI 29.9
--- NOTE | 2024-07-04 08:36 | EXP.PHA.CONS ---
Pharmacy Consult Date: 07/04/24 Time: 08:36 Referring provider: DR. IBRAHIM Reason for Consult:: VANCOMYCIN LEVELS Allergies Allergy/AdvReac Type Severity Reaction Status Date / Time Penicillins Allergy Unknown Verified 06/29/24 11:47 allergy reaction Home Medications ?Medication ?Instructions ?Recorded ?Confirmed ?Type famotidine 20 mg tablet 20 mg PO HSP PRN Heartburn 07/02/24 07/02/24 History gabapentin 600 mg tablet 600 mg PO TID 07/02/24 07/02/24 History oxycodone 10 mg tablet 10 mg PO Q4HP PRN Severe Pain 07/02/24 07/02/24 History (Scale Score 7-10) polyethylene glycol 3350 17 17 g PO DAILY 07/02/24 07/02/24 History gram/dose oral powder trazodone 100 mg tablet 100 mg PO HS 07/02/24 07/02/24 History New Prescriptions to Start Prescriptions: Height: 1.78 m Weight: 95 kg Laboratory Results:: Laboratory Results - last 24 hr 07/02/24 09:21: Stl Aeromonas (PCR) Not detected, Stl C. cayetanensis PCR Not detected, Stool Rotavirus (PCR) Not detected, Stl Adenov F 40/41 PCR Not detected, Stool Astrovirus (PCR) Not detected, Stool Campylobacter PCR Not detected, Stl C.difficile Tox PCR Detected A, Stool Cryptosporidium PCR Not detected, Stl E.coli Shiga Tox PCR Not detected, Stool E coli O157 PCR Not detected, Stl Enterotoxigenic E PCR Not detected, Stool EPEC (PCR) Not detected, Stool EAEC (PCR) Not detected, Stl E. histolytica PCR Not detected, Stool Giardia Lamblia PCR Not detected, Stool Salmonella PCR Not detected, Stool Sapovirus (PCR) Not detected, Stl P. 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 PHARMACY WILL CONTINUE TO MONITOR AND WILL ADJUST DOSE APPROPRIATE. -GAMA MASON, DEVIND
[2024-07-04] MEDS: GABAPENTIN 600MG TABLET 600 MG PO ×3 (08:45→20:30)
[2024-07-04] MEDS: POTASSIUM CHLORIDE 10MEQ CAPSULE.ER 10 MEQ PO (08:45)
[2024-07-04] MEDS: POLYETHYLENE GLYCOL 3350 17 GM PACKET PO (08:46)
--- NOTE | 2024-07-04 08:48 | EXP.ACUTE.PN ---
Subjective *Date: 07/04/24 *Time: 08:48 Interval history: Patient reports more right sided back pain today. Rates it at 10/10 in intensity. Stool was positive for C. diff. Medical Exam Vital signs and Labs for Last 24 Hours: Vital Signs Temp Pulse Resp BP Pulse Ox O2 Del Method 07/04/24 08:00 97.5 F L 108 H 18 123/76 98 Room Air 07/04/24 06:47 Room Air 07/04/24 05:00 Room Air 07/04/24 04:00 97.8 F 74 16 119/79 94 L Room Air 07/04/24 03:00 Room Air 07/04/24 01:00 Room Air 07/03/24 23:00 Room Air 07/03/24 21:00 Room Air 07/03/24 20:00 Room Air 07/03/24 19:39 97.7 F 84 17 130/70 99 Room Air 07/03/24 18:52 Room Air 07/03/24 17:00 Room Air 07/03/24 16:00 97.7 F 77 18 137/68 98 Room Air 07/03/24 15:00 Room Air 07/03/24 13:00 Room Air 07/03/24 11:00 Room Air 07/03/24 09:00 Room Air Intake and Output 07/03/24 07/04/24 07/04/24 23:59 07:59 15:59 Intake Total 360 / 2380 500 / 740 240 / 740 Output Total 300 / 2145 1300 / 1575 275 / 1575 Balance 60 / 235 -800 / -835 -35 / -835 Intake: Intake, Oral Amount 360 / 1080 240 / 240 Intake, Total IV Amount 500 / 500 Metronidaz/Sod Chl 500 mg In 200 / 200 100 ml @ 100 mls/hr IV Q8H [facility] Rx#:[id number] Vancomycin/Water For Inj (Peg) 300 / 300 1.75 gm In 350 ml @ 175 mls/hr IV Q12H [facility] Rx#:[id number] Output: Output, Urine Amount 300 / 2145 1300 / 1575 275 / 1575 Other: Number of Unmeasured Voids 1 0 0 Weight 209 lb 12.8 oz 209 lb 7.026 oz Patient Weight 07/04/24 23:59 Weight 209 lb 7.026 oz Laboratory Results - last 24 hr 07/02/24 09:21: Stl Aeromonas (PCR) Not detected, Stl C. cayetanensis PCR Not detected, Stool Rotavirus (PCR) Not detected, Stl Adenov F 40/41 PCR Not detected, Stool Astrovirus (PCR) Not detected, Stool Campylobacter PCR Not detected, Stl C.difficile Tox PCR Detected A, Stool Cryptosporidium PCR Not detected, Stl E.coli Shiga Tox PCR Not detected, Stool E coli O157 PCR Not detected, Stl Enterotoxigenic E PCR Not detected, Stool EPEC (PCR) Not detected, Stool EAEC (PCR) Not detected, Stl E. histolytica PCR Not detected, Stool Giardia Lamblia PCR Not detected, Stool Salmonella PCR Not detected, Stool Sapovirus (PCR) Not detected, Stl P. shigelloides PCR Not detected, Stl Shigella/EIEC PCR Not detected, St Y.enterocolitica PCR Not detected, Stool Vibrio (PCR) Not detected, Stl Vibrio cholerae PCR Not detected, Stl Norovirus GI/GII PCR Not detected 07/03/24 12:06: Vancomycin Trough 15.5 H 07/03/24 16:55: Vancomycin Peak 32.1 I & O for Labs for Last 24 Hours: Intake & Output 07/01/24 07/02/24 07/03/24 07/04/24 23:59 23:59 23:59 23:59 Intake Total 1330 / 1680 1880 / 2380 740 / 740 Output Total 1025 / 1425 2145 / 2145 1575 / 1575 Balance 305 / 255 -265 / 235 -835 / -835 Weight 205 lb 209 lb 9.6 oz 211 lb 1.6 oz 209 lb 7.026 oz Microbiology Reports for the Last 24 Hours: Microbiology 07/02/24 01:09 Blood Blood Culture - Preliminary NO GROWTH AFTER 48 HOURS 07/02/24 00:34 Blood Blood Culture - Preliminary NO GROWTH AFTER 48 HOURS Constitutional: Present no acute distress Comment:: Uncomfortable to due back pain Respiratory: Present normal respiratory effort Cardiac: Present Reg Rate and Rhythm GI: Present normal bowel sounds; Absent tenderness Extremities: Present normal inspection and full ROM Skin: Present wounds (right lateral leg, wound vac in place); Absent erythema Neuro: Present Grossly Intact and moves all extremities Assessment and Plan *Assessment and plan (1) MRSA bacteremia: Status: Acute Category: Medical Code(s): R78.81 - Bacteremia; B95.62 - Methicillin resistant Staphylococcus aureus infection as the cause of diseases classified elsewhere (2) Diarrhea: Status: Acute Category: Medical Code(s): R19.7 - Diarrhea, unspecified (3) History of head or neck cancer: Status: Acute Category: Medical Code(s): Z85.89 - Personal history of malignant neoplasm of other organs and systems (4) Type 2 diabetes mellitus: Status: Chronic Category: Medical Code(s): E11.9 - Type 2 diabetes mellitus without complications (5) Hyperlipidemia: Status: Chronic Category: Medical Code(s): E78.5 - Hyperlipidemia, unspecified (6) Hypertension: Status: Chronic Category: Medical Code(s): I10 - Essential (primary) hypertension (7) Acute UTI: Status: Acute Category: Medical Code(s): N39.0 - Urinary tract infection, site not specified (8) Open wound of right lower leg: Status: Acute Category: Medical Code(s): S81.801A - Unspecified open wound, right lower leg, initial encounter (9) Low back pain: Status: Acute Category: Medical Code(s): M54.50 - Low back pain, unspecified (10) Lumbar degenerative disc disease: Status: Acute Category: Medical Code(s): M51.369 - Other intervertebral disc degeneration, lumbar region without mention of lumbar back pain or lower extremity pain (11) Lumbar facet arthropathy: Status: Acute Category: Medical Code(s): M47.816 - Spondylosis without myelopathy or radiculopathy, lumbar region (12) Lumbar spinal stenosis: Status: Acute Category: Medical Code(s): M48.061 - Spinal stenosis, lumbar region without neurogenic claudication Plan IV flagyl started for C. diff, will add Flexeril for back pain, am labs pending.
[2024-07-04] MEDS: CYCLOBENZAPRINE 10MG TABLET 10 MG PO ×2 (09:34→20:30)
[2024-07-04 09:35] LABS: Basophils % 0.7 % (0.1-2.0); Eosinophils # 0.1 K/mm3 (0.0-0.4); Eosinophils % 2.2 % (0.1-12.0); Hematocrit 33.2 % (42.0-52.0); Hemoglobin 10.8 g/dL (14.1-18.0); Lymphocytes # 0.6 K/mm3 (0.7-4.5); Lymphocytes % 9.4 % (10-50); Mean Corpuscular HGB Conc 32.5 g/dL (31.8-35.4); Mean Corpuscular Hemoglobin 28.1 pg (27.0-31.2); Mean Corpuscular Volume 86.5 fl (80-94); Mean Platelet Volume 9.4 fl (7.4-10.4); Monocytes # 0.4 K/mm3 (0.1-1.0); Monocytes % 6.8 % (1.7-9.3); Neutrophils # 4.7 K/mm3 (1.8-7.8); Neutrophils % 80.2 % (37.0-80.0); Nucleated Red Blood Cells # 0 10^3/uL; Nucleated Red Blood Cells % 0 %; Platelet Count 458 K/mm3 (142-424); Red Blood Count 3.84 M/mm3 (4.60-6.20); Red Cell Distribution Width 18.4 % (11.5-17.5); Red Cell Distribution Width-SD 58.4 fL; White Blood Count 5.9 K/mm3 (4.8-10.8)
[2024-07-04 09:38] LABS: Anion Gap 10.7 mEq/L (5-15); Blood Urea Nitrogen 6 mg/dl (9-20); Calcium 8.5 mg/dl (8.4-10.2); Carbon Dioxide 28 mmol/L (22.0-30.0); Chloride 101 mmol/L (98-107); Creatinine Clearance Estimated 198 mL/min (50-200); Estimated Glomerular Filt Rate 143 ml/min (>60); GFR (African American) 173 ML/MIN (>60); Glucose 158 mg/dl (74-100); Potassium 3.7 mmoL/L (3.5-5.1); Sodium 136 mmol/L (136-145)
[2024-07-04 16:00] VITALS: BP 137/71; PULSE 72; RESP 18; TEMP 36.4; O2SAT 97
--- NOTE | 2024-07-04 17:19 | PC.NURSE ---
a&ox4. resting supine in bed. wound vac in place to RLE. IV abx given per may. pt remains in contact enteric precautions for c. diff. pt treated per mar for back/neck pain this shift. no needs at this time. call light within reach.
[2024-07-04 19:54] VITALS: BP 134/67; PULSE 53; RESP 17; TEMP 36.6; O2SAT 99
[2024-07-04] MEDS: TRAZODONE 50MG TABLET 100 MG PO (20:30)
[2024-07-05] MEDS: OXYCODONE 5MG IMMEDIATE RELEASE TABLET 10 MG PO ×3 (01:48→10:42)
[2024-07-05] MEDS: VANCOMYCIN/WATER FOR INJ (PEG) 1.75 GM/350 ML PIGGYBACK IV ×2 (01:48→16:04)
[2024-07-05] MEDS: CYCLOBENZAPRINE 10MG TABLET 10 MG PO (03:49)
[2024-07-05] MEDS: METRONIDAZ/SOD CHL 500 MG/100 ML PIGGYBACK 100 MG IV ×2 (03:49→12:36)
[2024-07-05 04:00] VITALS: BP 137/81; PULSE 74; RESP 16; TEMP 36.6; O2SAT 99; BMI 30.4
--- NOTE | 2024-07-05 04:35 | PC.NURSE ---
Pt A&OX4 and has tolerated room air. Lung sounds clear air bowel sounds active. Wound vac has remained in place to right lower extremity. Pt was assisted in emptying wound vac container. He has complained of lower back pain multiple times this shift and was medicated per May. He has received IV antibiotics. Currently resting in bed with call light within reach.
[2024-07-05 08:00] VITALS: BP 123/69; PULSE 80; RESP 16; TEMP 36.7; O2SAT 95
[2024-07-05] MEDS: POLYETHYLENE GLYCOL 3350 17 GM PACKET PO (08:16)
[2024-07-05] MEDS: POTASSIUM CHLORIDE 10MEQ CAPSULE.ER 10 MEQ PO (08:16)
[2024-07-05] MEDS: GABAPENTIN 600MG TABLET 600 MG PO (08:16)
--- NOTE | 2024-07-05 08:33 | EXP.PHA.PN ---
Subjective *Date: 07/05/24 *Time: 08:33 Medical Exam Vital signs and Labs for Last 24 Hours: Vital Signs Temp Pulse Resp BP Pulse Ox O2 Del Method 07/05/24 06:54 Room Air 07/05/24 05:00 Room Air 07/05/24 04:00 97.9 F 74 16 137/81 99 Room Air 07/05/24 03:00 Room Air 07/05/24 01:00 Room Air 07/04/24 23:00 Room Air 07/04/24 21:00 Room Air 07/04/24 20:00 Room Air 07/04/24 19:54 97.8 F 53 L 17 134/67 99 07/04/24 18:47 Room Air 07/04/24 16:56 Room Air 07/04/24 16:00 97.6 F 72 18 137/71 97 Room Air 07/04/24 15:00 Room Air 07/04/24 13:00 Room Air 07/04/24 11:00 Room Air 07/04/24 09:00 Room Air Intake and Output 07/04/24 07/05/24 07/05/24 23:59 07:59 15:59 Intake Total 690 / 1890 100 / 100 Output Total 300 / 1875 400 / 400 Balance 390 / 15 -300 / -300 Intake: Intake, Oral Amount 240 / 840 Intake, Total IV Amount 450 / 1050 100 / 100 Metronidaz/Sod Chl 500 mg In 100 / 400 100 / 100 100 ml @ 100 mls/hr IV Q8H [facility] Rx#:[id number] Vancomycin/Water For Inj (Peg) 350 / 650 1.75 gm In 350 ml @ 175 mls/hr IV Q12H [facility] Rx#:[id number] Output: Output, Urine Amount 300 / 1875 400 / 400 Other: Number of Unmeasured Voids 0 0 Weight 96.479 kg Patient Weight 07/05/24 23:59 Weight 96.479 kg Laboratory Results - last 24 hr 07/04/24 09:20: WBC 5.9 D, RBC 3.84 L, Hgb 10.8 L, Hct 33.2 L, MCV 86.5, MCH 28.1, MCHC 32.5, RDW 18.4 H, Plt Count 458 H D, MPV 9.4, Neut % (Auto) 80.2 H, Lymph % (Auto) 9.4 L, [place] % (Auto) 6.8, Eos % (Auto) 2.2, Baso % (Auto) 0.7, Neut # (Auto) 4.7, Lymph # (Auto) 0.6 L, [place] # (Auto) 0.4, Eos # (Auto) 0.1, Baso # (Auto) 0.0, Sodium 136, Potassium 3.7, Chloride 101, Carbon Dioxide 28, Anion Gap 10.7, BUN 6 L, Creatinine 0.60 L, Estimated Creat Clear 198, Estimated GFR 143, Est GFR ( Amer) 173, Glucose 158 H, Calcium 8.5 I & O for Labs for Last 24 Hours: Intake & Output 07/02/24 07/03/24 07/04/24 07/05/24 23:59 23:59 23:59 23:59 Intake Total 1330 / 1680 1880 / 2380 1790 / 1890 100 / 100 Output Total 1025 / 1425 2145 / 2145 1875 / 1875 400 / 400 Balance 305 / 255 -265 / 235 -85 / 15 -300 / -300 Weight 95.073 kg 95.753 kg 95 kg 96.479 kg The patient's infection will respond to the chosen ABx?: Yes (REPEAT BLOOD AND URINE CX = NO GROWTH, INITIAL WAS MRSA, AFEBRILE OVER 24HR) Is the patient receiving the right drug, dose, and route?: Yes Could a more targeted ABx be ordered?: No How long ABx needed (days)?: 7
--- NOTE | 2024-07-05 08:47 | XR_ITS ---
FINAL REPORT CLINICAL HISTORY: Confirm PICC line placement COMPARISON: 06/30/2024 FINDINGS: A single view of the chest was obtained. The heart is at the upper limits of normal in size. The lungs are underinflated. There is no acute pulmonary abnormality. There has been interval placement of a left PICC line. Several images were obtained. Earlier images demonstrate the PICC tip directed superiorly the later images show the PICC tip to be directed inferiorly and in proper position. Surgical clips are noted at the base of the neck. IMPRESSION: Interval placement of left PICC line in proper position. Reviewed, Interpreted and Dictated by Luis F Mccauley MD Transcribed by Iesha Centeno Authenticated and . [facility]
--- NOTE | 2024-07-05 09:05 | EXP.ACUTE.PN ---
Subjective *Date: 07/05/24 *Time: 09:05 Interval history: Back pain is better today, no diarrhea overnight. Medical Exam Vital signs and Labs for Last 24 Hours: Vital Signs Temp Pulse Resp BP Pulse Ox O2 Del Method 07/05/24 08:00 98.1 F 80 16 123/69 95 Room Air 07/05/24 06:54 Room Air 07/05/24 05:00 Room Air 07/05/24 04:00 97.9 F 74 16 137/81 99 Room Air 07/05/24 03:00 Room Air 07/05/24 01:00 Room Air 07/04/24 23:00 Room Air 07/04/24 21:00 Room Air 07/04/24 20:00 Room Air 07/04/24 19:54 97.8 F 53 L 17 134/67 99 07/04/24 18:47 Room Air 07/04/24 16:56 Room Air 07/04/24 16:00 97.6 F 72 18 137/71 97 Room Air 07/04/24 15:00 Room Air 07/04/24 13:00 Room Air 07/04/24 11:00 Room Air Intake and Output 07/04/24 07/05/24 07/05/24 23:59 07:59 15:59 Intake Total 690 / 1890 100 / 100 Output Total 300 / 1875 400 / 675 275 / 675 Balance 390 / 15 -300 / -575 -275 / -575 Intake: Intake, Oral Amount 240 / 840 Intake, Total IV Amount 450 / 1050 100 / 100 Metronidaz/Sod Chl 500 mg In 100 / 400 100 / 100 100 ml @ 100 mls/hr IV Q8H [facility] Rx#:[id number] Vancomycin/Water For Inj (Peg) 350 / 650 1.75 gm In 350 ml @ 175 mls/hr IV Q12H [facility] Rx#:[id number] Output: Output, Urine Amount 300 / 1875 400 / 675 275 / 675 Other: Number of Unmeasured Voids 0 0 Weight 212 lb 11.2 oz Patient Weight 07/05/24 23:59 Weight 212 lb 11.2 oz Laboratory Results - last 24 hr 07/04/24 09:20: WBC 5.9 D, RBC 3.84 L, Hgb 10.8 L, Hct 33.2 L, MCV 86.5, MCH 28.1, MCHC 32.5, RDW 18.4 H, Plt Count 458 H D, MPV 9.4, Neut % (Auto) 80.2 H, Lymph % (Auto) 9.4 L, [place] % (Auto) 6.8, Eos % (Auto) 2.2, Baso % (Auto) 0.7, Neut # (Auto) 4.7, Lymph # (Auto) 0.6 L, [place] # (Auto) 0.4, Eos # (Auto) 0.1, Baso # (Auto) 0.0, Sodium 136, Potassium 3.7, Chloride 101, Carbon Dioxide 28, Anion Gap 10.7, BUN 6 L, Creatinine 0.60 L, Estimated Creat Clear 198, Estimated GFR 143, Est GFR ( Amer) 173, Glucose 158 H, Calcium 8.5 I & O for Labs for Last 24 Hours: Intake & Output 07/02/24 07/03/24 07/04/24 07/05/24 23:59 23:59 23:59 23:59 Intake Total 1330 / 1680 1880 / 2380 1790 / 1890 100 / 100 Output Total 1025 / 1425 2145 / 2145 1875 / 1875 675 / 675 Balance 305 / 255 -265 / 235 -85 / 15 -575 / -575 Weight 209 lb 9.6 oz 211 lb 1.6 oz 209 lb 7.026 oz 212 lb 11.2 oz Constitutional: Present no acute distress Respiratory: Present normal respiratory effort Cardiac: Present Reg Rate and Rhythm GI: Present normal bowel sounds; Absent tenderness Extremities: Present normal inspection and full ROM Skin: Present wounds (right lateral leg, wound vac in place); Absent erythema Neuro: Present Grossly Intact and moves all extremities Assessment and Plan *Assessment and plan (1) MRSA bacteremia: Status: Acute Category: Medical Code(s): R78.81 - Bacteremia; B95.62 - Methicillin resistant Staphylococcus aureus infection as the cause of diseases classified elsewhere (2) Diarrhea: Status: Acute Category: Medical Code(s): R19.7 - Diarrhea, unspecified (3) History of head or neck cancer: Status: Acute Category: Medical Code(s): Z85.89 - Personal history of malignant neoplasm of other organs and systems (4) Type 2 diabetes mellitus: Status: Chronic Category: Medical Code(s): E11.9 - Type 2 diabetes mellitus without complications (5) Hyperlipidemia: Status: Chronic Category: Medical Code(s): E78.5 - Hyperlipidemia, unspecified (6) Hypertension: Status: Chronic Category: Medical Code(s): I10 - Essential (primary) hypertension (7) Acute UTI: Status: Acute Category: Medical Code(s): N39.0 - Urinary tract infection, site not specified (8) Open wound of right lower leg: Status: Acute Category: Medical Code(s): S81.801A - Unspecified open wound, right lower leg, initial encounter (9) Low back pain: Status: Acute Category: Medical Code(s): M54.50 - Low back pain, unspecified (10) Lumbar degenerative disc disease: Status: Acute Category: Medical Code(s): M51.369 - Other intervertebral disc degeneration, lumbar region without mention of lumbar back pain or lower extremity pain (11) Lumbar facet arthropathy: Status: Acute Category: Medical Code(s): M47.816 - Spondylosis without myelopathy or radiculopathy, lumbar region (12) Lumbar spinal stenosis: Status: Acute Category: Medical Code(s): M48.061 - Spinal stenosis, lumbar region without neurogenic claudication (13) C. difficile diarrhea: Status: Acute Category: Medical Code(s): A04.72 - Enterocolitis due to Clostridium difficile, not specified as recurrent Plan Patient has improved, will order a PICC line today, possible discharge home later today on IV Vanc and oral Flagyl.
--- NOTE | 2024-07-06 10:01 | SW/DCPLANNER ---
Spoke with patient on the phone. Patient stated that he is doing ok. Patient stated that he was able to get his medicine picked up from [facility]. Patient stated that he is aware of his upcoming appointment. Patient stated that he has no concerns or questions at this time. Serafin Rao
[2024-07-07 02:14] LABS: POC Glucose,Bedside 159 (70-110)
--- NOTE | 2024-07-14 08:29 | P.DS_ITS ---
General Admission date:: 07/02/24 Discharge date: 07/05/24 HPI HPI HPI: 49-year-old male with history of head neck cancer status post reconstructive surgery in December of last year presents for positive blood cultures. He was seen here on June 29 and diagnosed with a urinary tract infection. His blood cultures at that time grew MRSA within about a day. He returned and was seen on the in the ER but was well-appearing, repeat cultures were ordered and patient was again discharged. One of his repeat cultures is again positive for MRSA. Patient was called back and he returns to the ER. He has a wound on the right lower extremity from where his bone graft was obtained. The wound is being managed with a wound VAC and home health. He denies any recent changes or worsening pain or redness. He denies any significant changes around his mandible where he had the reconstructive surgery performed. Overall, patient reports he just feels generally weak and ill but denies fever at home. (above as per ER physician) Hospital Course Hospital Course Hospital Course: Patient was started on antibiotics and a stool panel was ordered. He continued to complain of some back pain. His stool was positive for C. difficile. His blood culture showed no growth. He was started on IV Flagyl and Flexeril was added for his back pain. By, he was feeling better. His back pain had improved and he had no further diarrhea. A PICC line was ordered and he was discharged home on IV Vanco and oral Flagyl Exam Data for Last 24 hours Vital signs and Labs for Last 24 Hours: Temp Pulse Resp BP Pulse Ox O2 Del Method 98.1 F 80 16 123/69 95 Room Air 07/05/24 08:00 07/05/24 08:00 07/05/24 08:00 07/05/24 08:00 07/05/24 08:00 07/05/24 17:00 Narrative: Constitutional Constitutional: no acute distress *Routine HEENT Exam Head: Present normocephalic and atraumatic Eye: Present EOMI and PERRL ENT: Present mucous membranes dry *Routine Neck Exam Neck: Present supple and full ROM *Routine Respiratory Exam Respiratory: Present CTA bilaterally *Routine Cardiovascular Exam Cardiovascular: Present RRR *Routine Abdominal Exam Abdominal: Present soft and normoactive bowel sounds; Absent tenderness *Routine Rectal Exam Rectal:: deferred *Routine Genitalia Exam Genitalia:: deferred *Routine Extremities Exam Extremities: Absent cyanosis, clubbing or edema *Routine Skin Exam Skin: Present intact; Absent erythema *Routine Neurological Exam Neurological: Present alert and oriented X3 DS: Diagnosis Discharge Diagnosis (1) MRSA bacteremia: Status: Acute Code(s): R78.81 - Bacteremia; B95.62 - Methicillin resistant Staphylococcus aureus infection as the cause of diseases classified elsewhere (2) Diarrhea: Status: Acute Code(s): R19.7 - Diarrhea, unspecified (3) History of head or neck cancer: Status: Acute Code(s): Z85.89 - Personal history of malignant neoplasm of other organs and systems (4) Type 2 diabetes mellitus: Status: Chronic Code(s): E11.9 - Type 2 diabetes mellitus without complications (5) Hyperlipidemia: Status: Chronic Code(s): E78.5 - Hyperlipidemia, unspecified (6) Hypertension: Status: Chronic Code(s): I10 - Essential (primary) hypertension (7) Acute UTI: Status: Acute Code(s): N39.0 - Urinary tract infection, site not specified (8) Open wound of right lower leg: Status: Acute Code(s): S81.801A - Unspecified open wound, right lower leg, initial encounter (9) Low back pain: Status: Acute Code(s): M54.50 - Low back pain, unspecified (10) Lumbar degenerative disc disease: Status: Acute Code(s): M51.369 - Other intervertebral disc degeneration, lumbar region without mention of lumbar back pain or lower extremity pain (11) Lumbar facet arthropathy: Status: Acute Code(s): M47.816 - Spondylosis without myelopathy or radiculopathy, lumbar region (12) Lumbar spinal stenosis: Status: Acute Code(s): M48.061 - Spinal stenosis, lumbar region without neurogenic claudication (13) C. difficile diarrhea: Status: Acute Code(s): A04.72 - Enterocolitis due to Clostridium difficile, not specified as recurrent Meds Home Medications and Allergies Home Medications ?Medication ?Instructions ?Recorded ?Confirmed ?Type famotidine 20 mg tablet 20 mg PO HSP PRN Heartburn 07/02/24 07/02/24 History gabapentin 600 mg tablet 600 mg PO TID 07/02/24 07/02/24 History oxycodone 10 mg tablet 10 mg PO Q4HP PRN Severe Pain 07/02/24 07/02/24 History (Scale Score 7-10) polyethylene glycol 3350 17 17 g PO DAILY 07/02/24 07/02/24 History gram/dose oral powder trazodone 100 mg tablet 100 mg PO HS 07/02/24 07/02/24 History cyclobenzaprine 10 mg tablet 10 mg PO TIDP PRN Back Pain #30 07/05/24 Rx tabs metronidazole 500 mg tablet 500 mg PO Q8H #30 tabs 07/05/24 Rx vancomycin 1.75 gram/350 mL in 1.75 g (350 mL) IV Q12H #1 mL 07/05/24 Rx diluent combination IV piggyback New Prescriptions to Start Prescriptions: cyclobenzaprine Mine Ibrahimian metronidazole Patrice,Carson vancomycin-diluent combo no.1 Carson Ibrahim Allergies Allergy/AdvReac Type Severity Reaction Status Date / Time Penicillins Allergy Unknown Verified 06/29/24 11:47 allergy reaction Discharge Plan Disposition Patient Disposition: Home Health Service Condition: Fair Discharge Order Discharge Orders: Discharge Order (Routine); Ordered 07/05/24 Ordered By: Carsno Ibrahim Follow up Plan Follow up with: Carson Ibrahim MD [Primary Care Provider] - 07/19/24 9:30 am Prescriptions/Medication Reconciliation: New cyclobenzaprine 10 mg Tablet 10 mg PO TIDP PRN (Reason: Back Pain) Qty: 30 0RF vancomycin-diluent combo no.1 1.75 gram/350 mL Piggyback 1.75 g IV Q12H Qty: 1 0RF metronidazole 500 mg tablet 500 mg PO Q8H Qty: 30 0RF Continued trazodone 100 mg tablet 100 mg PO HS Patient Comments: TAKE 1 TABLET BY MOUTH ONCE DAILY AT NIGHT polyethylene glycol 3350 17 gram/dose powder 17 g PO DAILY famotidine 20 mg tablet 20 mg PO HSP PRN (Reason: Heartburn) Rx Instructions: Patient states he only takes this medication when he feels heart burn gabapentin 600 mg tablet 600 mg PO TID Patient Comments: TAKE 1 TABLET BY MOUTH IN THE MORNING. THEN TAKE 1 TABLET BY MOUTH IN THE EVENING. THEN TAKE 1 TABLET BY MOUTH AT BEDTIME. oxycodone 10 mg tablet 10 mg PO Q4HP PRN (Reason: Severe Pain (Scale Score 7-10)) Patient Comments: TAKE 1 TO 2 TABLETS BY MOUTH EVERY 4 HOURS NEEDED FOR SEVERE PAIN Problem Reconciliation Problems Reviewed?: Yes Patient Discharge Instructions ACTIVITY: Limited activity DIET: continue same diet Additional Instructions: Home health for antibiotics and PICC line care, pharmacy to dose Vancomycin Patient Instructions: DI for Bacteremia-Adult Print Language: New Zealander Providers Primary Care Provider: Carson Ibrahim Admit Provider: Chris Abarca Attending Provider: Carson Ibrahim
== END 2024-07-05 18:14 | disposition home health service (06) | DRG 920 ==
LOC: ER 23:56 → 2ND 07-02 02:10
PROVIDERS: Physician Assistant; Admitting Provider Internal Medicine Adolescent Medicine; Emergency Provider Emergency Medicine; PCP Family Medicine; Visit Provider Family Medicine
DX: T86.832 Bone graft infection (principal); A04.72 Enterocolitis due to Clostridium difficile, not specified as recurrent; R78.81 Bacteremia; N39.0 Urinary tract infection, site not specified; B95.62 Methicillin resistant Staphylococcus aureus infection as the cause of diseases classified elsewhere; I10 Essential (primary) hypertension; S81.801A Unspecified open wound, right lower leg, initial encounter; E11.9 Type 2 diabetes mellitus without complications; R53.1 Weakness; M51.369 Other intervertebral disc degeneration, lumbar region without mention of lumbar back pain or lower extremity pain; E78.5 Hyperlipidemia, unspecified; M47.816 Spondylosis without myelopathy or radiculopathy, lumbar region; M43.6 Torticollis; C44.42 Squamous cell carcinoma of skin of scalp and neck; C00.1 Malignant neoplasm of external lower lip; Z85.89 Personal history of malignant neoplasm of other organs and systems; Z79.899 Other long term (current) drug therapy; Z79.891 Long term (current) use of opiate analgesic; Z82.49 Family history of ischemic heart disease and other diseases of the circulatory system; Z88.0 Allergy status to penicillin
CPT/HCPCS: 36410; 36415; 36569; 71045; 80048; 80053; 80202; 81001; 82962; 85025; 86803; 87040; 87507; 99285; C1751; J1836; J2270; J3370; J3372; J7050

== ENCOUNTER 2024-08-25 07:26 | Outpatient (CLI) | payer OTHER, SELFPAY ==
--- NOTE | 2024-08-25 | CA_ITS ---
APPROVED REPORT Exam: Pharmacologic Technologist: Tamia Avalos Ht: 5 ft 10 in Wt: 197 lbs BSA: 2.07 m2 Medical History Medications: cyclobenzaprine, daptomycin, famotidine, metoprolol succinate ER, metronidazile, oxycodone, polyethylene glycol, trazodone Stress Test Details Test: Lexiscan Reason for pharmacologic stress test: physical limitation. HR Resting HR: 83 bpm Max Heart Rate (APMHR): 170.554994 bpm Max HR Achieved: 99 bpm Target HR (85% APMHR): 144.107313 bpm % of APMHR: 58.24 Recovery HR: 92 bpm BP Resting BP: 112.0/66.0 mmHg Max BP: 123.0/82.0 mmHg Recovery BP: 119.0/79.0 mmHg ECG Stress ECG Conclusion Symptoms: None. Arrhythmias/Ectopy: Rare PVC. ST-T Changes: Nondiagnostic-Nichole Electronically signed by : Mildred Martin MD 08/29/2024 20:54:26
--- NOTE | 2024-08-25 07:30 | NM_ITS ---
APPROVED REPORT Exam: Nuclear Stress Test Indication: Family history, Heart Failure, Abnromal EKG Patient Location: Outpatient Stress Tech: Tamia Ram [place] Tech:Kourtney Solitario, ARRT, RT (R)(N) Ht: 5 ft 10 in Wt: 195 lbs HR: 84 bpm BP: 112/66 mmHg BSA: 2.07 m2 TID: 1.11 BMI: 27.9 History: Family history, Heart Failure, Abnromal EKG Procedure: Patient received 0.4 mg of intravenous Lexiscan, resting heart rate 84 bpm, resting blood pressure 112/66 mmHg, with Lexiscan maximum heart rate achieved was 100 bpm which is % of the maximum predicted heart rate and blood pressure was 123/82 mmHg. With Lexiscan, patient denied any complaint of chest pain. Cardiac Stress and Resting SPECT Images: Cardiac Stress and Resting SPECT images were obtained using technetium 99m Myoview 30.0 mCi stress and 10.09 mCi at rest. Resting and stress imaging in supine and prone positions demonstrate no evidence of fixed or reversible perfusion defects. Gated imaging demonstrates severe global hypokinesis. LVEF is calculated at 22%. Note, however, that the LVEF may be inaccurate due to technical difficulties. Correlation with new or recent TTE is suggested. Conclusion: no evidence of fixed or reversible perfusion defects. Gated imaging demonstrates severe global hypokinesis. LVEF is calculated at 22%. Note, however, that the LVEF may be inaccurate due to technical difficulties. Correlation with new or recent TTE is suggested. Electronically signed by : Mildred Martin MD 08/25/2024 13:27:14
--- NOTE | 2024-08-25 08:08 | CA_ITS ---
APPROVED REPORT EXAM: Comprehensive 2D, Doppler, and color-flow Echocardiogram Cloth Edge Singer: Yelitza Stephens RT(R) Ht: 5 ft 10 in Wt: 195lbs BSA: 2.07 BP: 148/98 mmHg Indications: HFrEF seen on echo at outside hospital. Ordered with definity. Echo Enhancing Agent Indication: Endocardial border delineation Agent(s) / Amount(s) Used: Definity 2 cc 2D Dimensions LVEF (Yanez's) 50.50 % M: 52 - 72 LV Volume 174.50 mL M: 62 - 150 LV Volume Index 84.3 mL/m2 M: 34 - 74 LA Volume 42.60 mL LA Volume Index 20.58 mL/m2 (M/F) 16-34 EF AP4 61.20 % EF AP2 40.2 % EF BP 50.5 % GL Strain -17.2 % M-Mode Dimensions RVDd 2.55 cm (0.9-2.6) LA Diam 5.11 cm (1.9-4.0) LVDd 5.49 cm (3.5-5.7) LVDs 4.47 cm (3.5-5.7) IVSd 0.94 cm (0.6-1.1) PWd 0.94 cm (0.6-1.1) EF (Teich) 38.00% FS 18.60% EDV (Teich) 146.80 mL ESV (Teich) 91.00 mL LV Diastology E Decel Time 260 (160-240 msec) E/A Ratio 0.7 Mitral Valve MV E Max Roland. 68.0 (40-130 cm/s) MV A Velocity 96.0 (40-130 cm/s) E/A Ratio 0.70 MV PHT 76.0 ms Left Ventricle The left ventricle is normal size. Left ventricular systolic function is mildly decreased. There is increased LV wall thickness. There is mild global hypokinesis present. Diastolic function is indeterminate. LVEF is 45%. Right Ventricle The right ventricle is mildly dilated. The right ventricular systolic function is normal. Atria Left atrium is mildly dilated. Right atrium is mildly dilated. There is no Doppler evidence of interatrial shunt. Aortic Valve The aortic valve is mildly thickened. There is no aortic valvular stenosis. Trace aortic regurgitation. Mitral Valve The mitral valve is normal in structure. No evidence of mitral valve stenosis. Mild mitral regurgitation. Tricuspid Valve Tricuspid valve is grossly normal in structure and function. Trace tricuspid regurgitation. There is insufficient TR jet to estimate RVSP. Pulmonic Valve The pulmonary valve is normal in structure. Mild pulmonic regurgitation. Great Vessels The aortic root is normal in size. Pericardium There is no pericardial effusion. Incidental finding of anechoic echodensity in the vicinity of the liver. This likely represents either hepatic cyst vs dilated mesenteric lumen. Other Information Study Quality: Fair Conclusion Mild reduction in LV systolic function (LVEF 45%). Mild RV dilation with normal RV function. Biatrial dilation. Mild MR, mild CO. Incidental finding of anechoic echodensity in the vicinity of the liver. This likely represents either hepatic cyst vs dilated mesenteric lumen. Correlation with your recent CT abdomen/pelvis is suggested. Electronically signed by : Mildred Martin MD 09/01/2024 23:34:24
[2024-08-25] MEDS: ISOTOPE MYOVIEW (PER STUDY) 1 DOSE IV (09:17)
[2024-08-25] MEDS: REGADENOSON 0.4MG/5ML SYRINGE 0.4 MG IV (09:17)
[2024-08-25] MEDS: SODIUM CHLORIDE 0.9% 10ML SYR (RAD ONLY) 10 ML IV ×2 (09:17)
[2024-08-25] MEDS: DEFINITY US ECHO CONTRAST 2ML INJ 2 MG IV (10:02)
[2024-08-25 11:03] LABS: Basophils # 0.1 K/mm3 (0-0.2); Basophils % 0.9 % (0.1-2.0); Eosinophils # 0.1 Kmm3 (0.0-0.4); Eosinophils % 1.6 % (0.1-12.0); Hematocrit 39.3 % (42.0-52.0); Immature Granulocytes # 0.01 10^3uL; Immature Granulocytes % 0.2 %; Lymphocytes # 1.2 K/mm3 (0.7-4.5); Lymphocytes % 18.8 % (10-50); Mean Corpuscular HGB Conc 33.1 g/dL (31.8-35.4); Mean Corpuscular Hemoglobin 29.1 pg (27.0-31.2); Mean Corpuscular Volume 88.1 fl (80-94); Mean Platelet Volume 10.3 fl (7.4-10.4); Monocytes # 0.5 K/mm3 (0.1-1.0); Monocytes % 7.5 % (1.7-9.3); Neutrophils # 4.5 K/mm3 (1.8-7.8); Nucleated Red Blood Cells # 0 10^3/uL; Nucleated Red Blood Cells % 0 %; Platelet Count 263 K/mm3 (142-424); Red Blood Count 4.46 M/mm3 (4.60-6.20); Red Cell Distribution Width 13.7 % (11.5-17.5); Red Cell Distribution Width-SD 44.1 fL; White Blood Count 6.4 K/mm3 (4.8-10.8)
[2024-08-25 11:37] LABS: Albumin Level 4.4 g/dl (3.5-5.0); Chloride 101 mmol/L (98-107); Potassium 4.3 mmoL/L (3.5-5.1); Sodium 138 mmol/L (136-145)
[2024-08-25 11:39] LABS: Blood Urea Nitrogen 20 mg/dl (9-20); Estimated Glomerular Filt Rate 119 ml/min (>60); GFR (African American) 144 ML/MIN (>60)
[2024-08-25 11:40] LABS: Alanine Aminotransferase 14 U/L (12-78); Alkaline Phosphatase 79 U/L (38-126); Anion Gap 12.3 mEq/L (5-15); Aspartate Amino Transferase 30 U/L (17-59); Bilirubin,Direct 0.4 mg/dl (0.0-0.4); Bilirubin,Indirect 0.9 mg/dL (0.0-0.9); Bilirubin,Total 1.3 mg/dl (0.2-1.3); Bilirubin,Unconjugated 0.9 mg/dL (0.0-1.1); Calcium 9.7 mg/dl (8.4-10.2); Carbon Dioxide 29 mmol/L (22.0-30.0); Cholesterol 203 mg/dl (140-200); Glucose 107 mg/dl (74-100); Total Protein,Serum 8.2 g/dl (6.3-8.2); Triglycerides 116 mg/dl (30-150); VLDL Cholesterol 23 mg/dL (0-40)
[2024-08-25 11:41] LABS: Chol/HDL Ratio 5.6 (1-3.5); HDL Cholesterol 36 mg/dl (40-60)
[2024-08-25 11:50] LABS: NT Pro Brain Natriuretic Pep. 1060 pg/mL (0-125)
[2024-08-25 11:52] LABS: Direct LDL Cholesterol 129.25 mg/dL (100-129)
[2024-08-25 11:56] LABS: Free T4 (Free Thyroxine) 0.77 ng/dl (0.78-2.19)
[2024-08-25 12:11] LABS: Thyroid Stimulating Hormone 0.93 uIU/mL (0.465-4.68)
== END 2024-08-25 23:59 | disposition home or self-care (01) ==
LOC: RAD 07:27
PROVIDERS: PCP Family Medicine; Visit Provider Internal Medicine
DX: I08.8 Other rheumatic multiple valve diseases (principal); I49.3 Ventricular premature depolarization; I11.0 Hypertensive heart disease with heart failure; I50.20 Unspecified systolic (congestive) heart failure; E78.5 Hyperlipidemia, unspecified; R93.2 Abnormal findings on diagnostic imaging of liver and biliary tract; R94.31 Abnormal electrocardiogram [ECG] [EKG]; Z85.89 Personal history of malignant neoplasm of other organs and systems
CPT/HCPCS: 36415; 78452; 80048; 80061; 80076; 83880; 84439; 84443; 85025; 93017; 93018; 93306; A9502; J2785; Q9957

== ENCOUNTER 2024-09-15 10:59 | Outpatient (POV) | payer OTHER, SELFPAY ==
--- OUTSIDE RECORDS SUMMARY | 2024-07-07 16:00 | XMS_ITS | Encounter Summary ---
Author Organization Healthcare Address [address] [place] [address] Care Team Providers Care Retort Firer Name Role Phone Carson Ibrahim MD Primary Care Provider + [phone] Imer Sevilla MD Unavailable Viky Menon MD Unavailable [phone] Amelia Freeman RN Unavailable Unavailable Reason for Referral * Consultation (Routine) - Authorized Specialty Diagnoses / Procedures Referred By Contact Referred To Contact Prosthodontics / Dentistry Diagnoses Edentulism Virgie Ortega DMD [address] [place] [address] Phone: tel: fax: [facility] [address] [address] Phone: tel: fax: Referral ID Status Reason Start Date Expiration Date Visits Requested Visits Authorized [id number] Authorized Specialty Services Required 07/07/2024 01/06/2026 1 1 Encounter Details Date Type Department Care Team (Late st Contact Info) Description 07/07/2024 4:00 PM EDT [facility] [address] [place] [address] Yayo Stone A [address] [phone] Edentulism (Primary Dx) Social History Tobacco Use Types Packs/Day Years Used Date Smoking Tobacco: Never Passive Smoke Exposure: Never Smokeless Tobacco: Never Alcohol Use Standard Drinks/Week Comments Yes 0 (1 standard drink = 0.6 oz pur e alcohol) social. Humiliation, Afraid, Rape, and Kick questionnair e Answer Date Recorded Within the last year, have y ou been afraid of your partner or ex-partner? No 01/08/2024 Within the last year, have y ou been humiliated or emotionally abused in other ways by your partner or ex-partner? No Within the last year, have y ou been kicked, hit, slapped, or otherwise physically hurt by your partner or ex-partner? No 01/08/2024 Within the last year, have y ou been raped or forced to have any kind of sexual activity by your partner or ex-partner? No 01/08/2024 PHQ-2 Answer Date Recorded Patient Health Questionnaire-2 Score 0 05/13/2024 Hunger Vital Sign Answer Date Recorded Within the past 12 months, y ou worried that your food would run out before you got the money to buy more. Never true 01/08/20 24 Within the past 12 months, t he food you bought just didn't last and you didn't have money to get more. Never true 01/08/2024 PRAPARE - Transportation Answer Date Re corded In the past 12 months, has l ack of transportation kept you from medical appointments or from getting medications? No 12/22 In the past 12 months, has l ack of transportation kept you from meetings, work, or from getting things needed for daily living? No 01/08/2024 Housing Stability Vital Sign Answer Preet e Recorded In the last 12 months, was t here a time when you were not able to pay the mortgage or rent on time? No 01/08/2024 In the last 12 months, how many places have you lived? 1 01/08/2024 In the last 12 months, was t here a time when you did not have a steady place to sleep or slept in a long term (including now)? No 01/08/2024 CAGE ASSESSMENT Answer Date Recorded Cage unable to access Not on file 07/22/2024 Maximum number of drinks you had on a given occasion in the last month? 0 drinks 07/22/2024 How many alcoholic Beverages do you typically drink in a week? 0 - 7 per week 07/22/2024 Have you ever felt you should CUT down on your d rinking? 0 07/22/2024 Have you been ANNOYED by peo ple criticizing your drinking? 0 07/22/2024 Have you felt GUILTY about your drinking? 0 07/22/2024 Have you had a drink first t idalia in the morning (EYE-BRUSH [employer] BROOM CLIPPER) to steady your nerves or to get rid of a hangover? 0 07/22/2024 CAGE Questionnaire Score 0 025 Utilities Answer Date Recorded In the past 12 months has th e electric, gas, oil, or water company threatened to shut off services in your home? No 01/08/2024 Sex and Gender Information Value Date Recorded Sex Assigned at Male 01/06/2024 6:14 AM EDT Legal Sex Male 7:47 PM EDT Gender Identity Male 01/06/2024 6:14 AM EDT Sexual Orientation Not on file documented as of this encounter Miscellaneous Notes * Progress Notes - Yayo Stone - 07/07/2024 4:00 PM EDT Adult Dentistry [facility] Subjective: 49 y.o. male presents to clinic for for upper lower CD fabrication. Pt last dose of radiation was two months ago. 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 In September2019, he was found to have a left submandibular node that was positive for SCCa without evidence ofprimary site recurrence or distant metastasis. Objective: Visit Vitals Smoking Status Never Medical and dental hx reviewed. No changes Medications Ordered Prior to Encounter[1] Medical History[2] Surgical History[3] Social Drivers of Health Food Insecurity: No Food Insecurity (01/08/2024) Hunger Vital Sign Worried About Running Out of Food in the Last Year: Never true Ran Out of Food in the Last Year: Never true Alcohol Use: Low Risk (02/16/2024) CAGE ASSESSMENT Cage unable to access: Not on file Cage max number of drinks: 3 drinks Cage Beverages a week: 0 - 7 per week Cage Questionnaire cut down: 0 Cage questionnaire annoyed: 0 Cage questionnaire guilty: 0 Cage questionnaire eye fruit room hand: 0 Cage Overall score: 0 Housing Stability: Low Risk (01/08/2024) Housing Stability Vital Sign Unable to Pay for Housing in the Last Year: No Number of Places Lived in the Last Year: 1 Unstable Housing in the Last Year: No Tobacco Use: Low Risk (06/17/2024) Patient History Smoking Tobacco Use: Never Smokeless Tobacco Use: Never Passive Exposure: Never Transportation Needs: No Transportation Needs (01/08/2024) PRAPARE - Transportation Lack of Transportation (Medical): No Lack of Transportation (Non-Medical): No Depression: Not at risk (05/13/2024) PHQ-2 PHQ-2 Score: 0 Recent Concern: Depression - At risk (04/22/2024) PHQ-2 PHQ-2 Score: 6 Utilities: Not At Risk (01/08/2024) Utilities Threatened with loss of utilities: No Stress: Not on file Intimate Partner Violence: Not At Risk (01/08/2024) Humiliation, Afraid, Rape, and Kick questionnaire Fear of Current or Ex-Partner: No Emotionally Abused: No Physically Abused: No Sexually Abused: No Physical Activity: Not on file Social Connections: Low Risk (11/07/2023) [facility] Family and Community Support Help with Day to Day Activities: Not on file Feeling Lonely or Isolated: Not on file Financial Resource Strain: Not on file Allergies[4] Edentulous pt Panorex: No teeth present Lower left side ridge reconstruction with fixation pins and wire Assessment: ASA Class: ASA 3 - Patient with moderate systemic disease with functional limitations Edentulous Tx-Rendered today: Completed limited oral exam. Panorex acquired and reviewed. Findings documented in objective and assessment sections above. Findings discussed with patient, radiographs reviewed. Procedure, risks, benefits, alternatives andcomplications discussed. Opportunity was given for patient to ask questions. All questions answeredto patients apparent satisfaction. Explained to the patient the extension of their dental diseases.and having dentures at this time isnot recommended, 6 months at least after last radiation dose,also due to the reconstruction surgerythat he had dentures fabrication is recommended to be done by a specialist,due to lack of ridge support and retention. Patient agreed to the proposed tx plan Pt was referred to pros department for eval for dentures. NV: RTC for prn [1] Current Outpatient Medications on File Prior to Visit Medication Sig Dispense Refill gabapentin (Neurontin) 600 MG tablet Take 1 tablet (600 mg) by mouth in the morning and 1 tablet (600 mg) in the evening and 1 tablet (600 mg) before bedtime. 45 tablet 2 ondansetron ODT (Zofran-ODT) 8 MG disintegrating tablet Take 1 tablet (8 mg) by mouth every 8 hoursas needed for nausea or vomiting. 30 tablet 3 oxyCODONE (Roxicodone) 10 MG immediate release tablet Take 1-2 tablets by mouth every 4 (four) hours as needed for severe pain (g89.3). 180 tablet 0 polyethylene glycol (Miralax) 17 GM/SCOOP powder MIX 17 GRAMS OF POWDER IN 8 OUNCES OF LIQUID AND DRINK ONCE DAILY 510 g 0 [DISCONTINUED] oxyCODONE (Roxicodone) 10 MG immediate release tablet Take 1-2 tablets (10-20 mg) bymouth every 4 (four) hours as needed for severe pain (g89.3). 180 tablet 0 No current facility-administered medications on file prior to visit. [2] Past Medical History: Diagnosis Date Diabetes ([facility]) High blood pressure Lip cancer Morbid obesity ([facility]) 01/07/2024 PONV (postoperative nausea and vomiting) Type 2 diabetes mellitus ([facility]) 01/07/2024 UTI (urinary tract infection) 01/07/2024 [3] Past Surgical History: Procedure Laterality Date HERNIA REPAIR 1999 umbilical KIDNEY STONE SURGERY ORAL SURGERY Left 01/06/2024 left composite resection of L FOM, left 1A, left 1B OTHER SURGICAL HISTORY 2019 lip surgery SALIVARY GLAND SURGERY 2019 [4] Allergies Allergen Reactions Penicillins Rash and Swelling A CHILD Cosigned by Virgie Ortega DMD at 07/22/2024 9:42 PM EDT Associated attestation - Yin Ortegalamont Guevara DMD - 07/22/2024 9:42 PM EDT I have reviewed the resident's dental note. I was physically present in the clinic and immediately available throughout the entire procedure to provide direct supervision. documented in this encounter Plan of Treatment Upcoming Encounters Date Type Department Care Team (Late st Contact Info) Description 09/23/2024 1:45 PM EDT Evaluation [facility] [address] [facility] [address] [place] [phone] Kelsey Cerda, DMD [address] [facility] [address] [place] [address] 10/06/2024 11:45 AM EDT Office Visit [facility] [address] [facility]nd [place] [phone] Matias Eldridge MD [address] [facility] [address] [place] [address] 12/13/2024 10:00 AM EDT Office Visit [facility] [address] [facility]nd [place] [phone] Viky Menon MD [address] [facility] [address] [place] [address] 12/13/2024 1:00 PM EDT Appointment [facility] Radiation [address] [id number] [place] [phone] Imer Sevilla MD [address] [facility] [address] [place] [address] Scheduled Procedures Name Priority Associated Diagnoses Date/Ti me APPLICATION, GRAFT, SKIN, SPLIT-THICKNESS Wound of right lower extremity PREPARATION, WOUND, PRIOR TO SKIN GRAFT APPLICATION Wound of right lower extremity Scheduled Referrals Name Type Priority Associated Diagnoses Order Schedule Ambulatory referral to Dentistry Outpatient Referral Routine Edentulism Expected: 07/07/2024 (Approximate), Expires: 01/06/2026 documented as of this encounter Procedures Procedure Name Priority Date/Time Associated Diagnosis Comments LIMITED ORAL EVALUATION - PROBLEM FOCUSED Routine 07/07/2024 4:00 PM EDT Edentulism documented in this encounter Visit Diagnoses Diagnosis Edentulism- Primary documented in this encounter Additional Health Concerns Infection Onset Date 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 02/19/2024 Assessment Noted Time A fall risk assessment has been complete d for the patient 06/17/2024 9:31 AM EDT A Body Mass Index follow-up plan has been documented for the patient 07/15/2024 2:51 PM EDT documented as of this encounter Care Teams Retort Firer Relationship Specialty Start Date End Date Carson Ibrahim MD [address] [place] [address] PCP - General 11/20/23 Imer Sevilla MD [address] [facility] [address] [place] [address] Consulting Physician Radiation Oncology 02/27/24 Viky Menon MD [address] [facility] [address] [place] [address] Consulting Physician Medical Oncology 04/21/24 Amelia Freeman, RN Registered Nurse Hematology and Oncology 05/13/24 documented as of this encounter
--- OUTSIDE RECORDS SUMMARY | 2024-07-19 05:30 | XMS_ITS ---
Author Organization [facility] Address [address] [place], [place] [id number] Care Team Providers Care Instructional Support Services Director Name Role Phone WaxahachieMine funesian Primary Care Provider Allergies Allergen (clinical drug ingredient) Drug/Non Drug Allergy documented on EMR Reaction Allergy Type Onset Date Status Penicillin Rash Drug Allergy Active Results Component Value Reference Range Notes CBC Venipuncture (in house) Reviewed date:07/20/2024 09:38:09 AM Interpretation:Normal Performing Lab: Notes/Report: Normal wbc 6.1 3.5 - 10 lymph 14.8% 15 - 50 mid 6.5% 2 - 15 gran 78.7% 35 - 80 rbc 4.37 3.5 - 5.5 hgb 12.7 11.5 - 16.5 hct 38.5 35 - 55 mcv 88.1 75 - 100 mch 29.2 25 - 35 mchc 33.1 31 - 38 platlet 446 100 - 400 P-Comprehensive Metabolic Pa emani (CMP) Reviewed date:07/22/2024 11:07:25 AM Interpretation:glu 143, leslee 8.2, a/g 0.9 Performing Lab: Notes/Report: Test performed by [employer] [facility] , [address], [place] [address] Calos Chacon MD, Sheet Music Salesperson CLIA: [id number] Sodium 139 135-145 mmol/L Potassium 4.5 3.5-5.3 mmol/L Chloride 99 97-108 mmol/L CO2 30 22-32 mmol/L Glucose 143 65-99 mg/dL BUN 12 6-20 mg/dL Creatinine 0.75 0.70-1.30 mg/dL Calcium 8.2 8.6-10.4 mg/dL eGFR by Creatinine 110 >59 mL/min/1.73m2 Protein 7.6 6.0-8.3 g/dL Albumin 3.6 3.5-5.3 g/dL Alkaline Phosphatase 66 40-129 IU/L ALT (SGPT) <5 <5-55 IU/L AST (SGOT) 13 <5-46 IU/L Bilirubin, Total 0.5 <0.2-1.2 mg/dL A/G Ratio 0.9 1.1-2.5 P-Culture, Blood Reviewed date:07/26/2024 05:35:40 PM Interpretation:No Growth Performing Lab: Notes/Report: Test performed by [facility] [address] [place], [place] [address] [employer] , [address], [place] [address] Calos Chacon MD, Sheet Music Salesperson CLIA: [id number] Specimen Source Blood Culture, Blood See Below No Growth at 24 hours No Growth at 5 Days P-TSH reflex to FT4 Reviewed date:07/22/2024 11:07:25 AM Interpretation:Normal Performing Lab: Notes/Report: Test performed by [facility] [address] [place] [address] , [address], [place] [address] Calos Chacon MD, Sheet Music Salesperson CLIA: [id number] TSH reflex to FT4 1.59 0.43-5.25 mU/L REASON FOR VISIT f/u from [facility] Medications Medication SIG (Take, Route, Frequency, Duration) Notes Start Date End Date Status oxyCODONE HCl 15 MG 1 tablet Orally every 4 hrs Active Gabapentin 400 MG 1 capsule Orally Onc e a day for 30 day(s) Active Wheelchair - as directed 01/28/2024 Acti ve Famotidine 20 MG 1 tablet at bedtime as needed Orally Twice a day for 30 day(s) Active Cyclobenzaprine HCl 5 MG 1 tablet as nee ded Orally Three times a day 06/23/2024 Active Problems Problem Type SNOMED Code ICD Code Onset Dates Problem Status W/U Status Risk Notes Problem 625048707 Anemia, unspecified type (D64.9) Active confirmed Vital Signs Blood pressure systolic 110 mm Hg 07/20/19 25 Blood pressure diastolic 66 mm Hg 025 Heart Rate 78 /min 07/19/2024 Height 69.5 in 07/19/2024 Weight 204 lbs 07/19/2024 BMI 29.69 kg/m2 07/19/2024 Encounters Encounter Location Date Provider Diagnosis [facility] [address] [facility] [address] [facility] [address] [place], [place] [id number] 07/19/2024 Carsontitus MeléndezWaxahachie Bacteremia R78.81 ; Methicillin resistant Staphylococcus aureus infection as the cause of diseases classified elsewhere B95.62 ; Acute UTI N39.0 ; C. difficile colitis A04.72 ; Generalized weakness R53.1 ; Anemia, unspecified type D64.9 and Right-sided low back pain without sciatica, unspecified chronicity M54.50 Assessments Encounter Date Diagnosis (ICD Code) Assessment Notes Treatment Notes Treatment Clinical Notes Section Notes 07/19/2024 Bacteremia (ICD-10 - R78.81) Patient has completed his IV antibiotics 07/19/2024 Methicillin resistant Staphylococcus aureus infection as the cause of diseases classified elsewhere (ICD-10 - B95.62) 07/19/2024 Acute UTI (ICD-10 - N39.0) 07/19/2024 C. difficile colitis (ICD-10 - A04.72) 07/19/2024 Generalized weakness (ICD-10 - R53.1) 07/19/2024 Anemia, unspecified type (ICD-10 - D64.9) 07/19/2024 Right-sided low back pain without sciatica, unspecified chronicity (ICD-10 - M54.50) Plan Of Treatment Medication Medication Name Sig Start Date Stop Date Notes Cyclobenzaprine HCl 5 MG 1 tablet as nee ded Orally Three times a day 06/23/2024 Treatment Notes Assessment Notes Bacteremia Patient has complete d his IV antibiotics Next Appt Details Follow Up: via phone to repo rt test results, Reason: Provider Name:Carson Esteban ry, 12/02/2024 09:30:00 AM, [address] [facility] [address] [facility], [address], [place], [id number], Progress Notes * NOE DANIELSOB:1975 (49 yo M)Acc No.[id number]:07/19/2024 Progress Notes Patient: PERRY JOHNSON Provider: Mila Ibrahim M.D. :1975 A ge:49 Y S ex:Male Date:07/19/2024 Address:[address] [place] [address], [place] [address] Subjective: * Chief Complaints: * 1 . f/u from [facility]. * HPI: H PI: 49 year old male presents with c/o Here for follow up on: 0 07/02- [facility] hospitalization. Pt was admitted for positive MRSA blood cultures. Pt states he is doing well . * ROS: D ERMATOLOGY: no R elaine. n o H donald. G ASTROENTEROLOGY: no N ausea. n o V omiting. U ROLOGY: no D ifficulty urinating. n o B lood in urine. 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 * Hospitalization/Major Diagno stic Procedure: k idney stone surgery , [facility] ER - UTI 11/08/2018, [facility] - Neck Surgery 10/13-. * Family History: F ather: 62 yrs, diagnosed with Heart Disease. M other: alive, diagnosed with Mental Illness. S iblings: alive, family history unknown . C hildren: alive. 1 sister(s) . 3 son(s) - healthy. . COPD,. * Social History: C URRENT TOBACCO USE S moking Status: P atient does NOT smoke, F ormer Smoker:?Yes, Q uit smoking: a ge 25 started smoking at age 15. * Medications: T aking oxyCODONE HCl 15 MG Tablet 1 tablet Orally every 4 hrs , Taking Gabapentin 400 MG Capsule 1 capsule Orally Once a day , Taking Wheelchair - Miscellaneous as directed , Taking Famotidine 20 MG Tablet 1 tablet at bedtime as needed Orally Twice a day , Taking Cyclobenzaprine HCl 5 MG Tablet 1 tablet as needed Orally Three times a day , Medication List reviewed and reconciled with the patient * Allergies: P enicillin: Rash. Objective: * Vitals: W t: 204, Temp: 97.8, BP: 110/66, HR: 78, Nurse: jovanny, Ht: 69.5, BMI:29.69. * Examination: G eneral Examination: General Appearance: N AD. Heart: R SR. Lungs: c lear to auscultation. Abdomen: b owel sounds present , soft and nontender. Skin: w ound vac in place over right lower leg site. Extremities: n o leg edema. Assessment: * Assessment: 1. B acteremia - R78.81 (Primary) 2 . M ethicillin resistant Staphylococcus aureus infection as the cause of diseases classified elsewhere - B95.62 3 . A cute UTI - N39.0 4 . C . difficile colitis - A04.72 5 . G eneralized weakness - R53.1 6 . A nemia, unspecified type - D64.9 7 . R ight-sided low back pain without sciatica, unspecified chronicity - M54.50 Plan: * Treatment: Value Reference Range C ulture, Blood See Below - * S pecimen Source Blood - * Liz Jaimes 07/26/2024 05:3 5:29 PM > See phone encounter Notes: Patient has completed his IV antibiotics??2.?Generalized weakness?LAB: P-Comprehensive Metabolic Panel (CMP) (Collection Date & Time - 07/19/2024 09:06 AM)?glu 143, leslee 8.2, a/g 0.9* Value Reference Range A /G Ratio 0.9 L 1.1-2.5 - * A lbumin 3.6 3.5-5.3 - g/dL * A lkaline Phosphatase 66 40-129 - IU/L * A LT (SGPT) <5 <5-55 - IU/L * A ST (SGOT) 13 <5-46 - IU/L * B ilirubin, Total 0.5 <0.2-1.2 - mg/dL * B UN 12 6-20 - mg/dL * C alcium 8.2 L 8.6-10.4 - mg/dL * C hloride 99 97-108 - mmol/L * C O2 30 22-32 - mmol/L * C reatinine 0.75 0.70-1.30 - mg/dL * G lucose 143 H 65-99 - mg/dL * P otassium 4.5 3.5-5.3 - mmol/L * S odium 139 135-145 - mmol/L * P rotein 7.6 6.0-8.3 - g/dL * e GFR by Creatinine 110 >59 - mL/min/1.73m2 * Liz Jaimes 07/20/2024 01: 21:52 PM > awaiting blood culture results Liz Jaimes 07/22/2024 10:54:53 AM > See phone encounter ?LAB: P-TSH reflex to FT4 (Collection Date & Time - 07/19/2024 09:06 AM)? Normal* Value Reference Range T SH reflex to FT4 1.59 0.43-5.25 - mU/L * Liz Jaimes 07/20/2024 01: 21:52 PM > awaiting blood culture results Liz Jaimes 07/22/2024 10:54:53 AM > See phone encounter 3.?Anemia, unspecified type?LAB: CBC Venipuncture (in house) (Collection Date & Time - 07/19/2024)? Normal* Value Reference Range w bc 6.1 3.5 - 10 * l ymph 14.8% 15 - 50 * m id 6.5% 2 - 15 * g ran 78.7% 35 - 80 * r bc 4.37 3.5 - 5.5 * h gb 12.7 11.5 - 16.5 * h ct 38.5 35 - 55 * m cv 88.1 75 - 100 * m ch 29.2 25 - 35 * m chc 33.1 31 - 38 * p latlet 446 100 - 400 * Mavis William 07/19/2024 12:48: 15 PM > 4.?Right-sided low back pain without sciatica, unspecified chronicity? Refill Cyclobenzaprine HCl Tablet, 5 MG, 1 tablet as needed, Orally, Three times a day, 30, Refills1.?? * Procedure Codes: 8 5025 CBC WITH AUTO DIFF, 3074F SYST BP LT 130 MM HG, 3078F DIAST BP < 80 MM HG * Follow Up: v ia phone to report test results * Billing Information: * Visit Code: 21130 Office Visit, Est Pt., Level 4. * Procedure Codes: 77408 CBC WITH AUTO DIFF. 3074F SYST BP LT 130 MM HG. 3078F DIAST BP < 80 MM HG. * Electronic signature of Alia Ibrahim MD on 09/15/2024 at 11:17 AM EDT Sign off status: Pending * Provider: Mila Ibrahim M.D. Date: 0 07/19/2024 Generated for Cristhian louis/Constanza/Dipakitting on: 0 09/15/2024 11:17 AM EDT History and Physical Notes * HPI (History of Present Illness) Category Sub-Category Detail Notes Category Not es HPI Here for follow up on: 07/02-[address] [facility] hospitalization. Pt was admitted for positive MRSA blood cultures. Pt states he is doing well Examination Category Sub-Category Detail Notes Category Not es General Examination Heart: RSR Lungs: clear to auscultatio n Abdomen: bowel sounds present , soft and nontender Extremities: no leg edema General Appearance: NAD Skin: wound vac in place o niru right lower leg site
--- OUTSIDE RECORDS SUMMARY | 2024-07-21 14:02 | XMS_ITS | Encounter Summary ---
Author Organization [facility] Address 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, face and neck (CMS/HCC) Dysphagia, oropharyngeal phase Procedures CT Soft Tissue Neck w IV Contrast Willie Penaloza MD [address] [address] Phone: tel: fax: Referral ID Status Reason Start Date Expiration Date Visits Re quested Visits Authorized [id number] Closed 04/27/2024 10/27/2025 1 1 * Imaging (Routine) - Closed Specialty Diagnoses / Procedures Referred By Kameron Referred To Contact Radiology Diagnoses Squamous cell carcinoma, 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, face and neck (CMS/HCC) Dysphagia, oropharyngeal phase Procedures CT Chest w IV Contrast Willie Penaloza MD [address] [address] Phone: tel: fax: Referral ID Status Reason Start Date Expiration Date Visits Re quested Visits Authorized [id number] Closed 04/27/2024 10/27/2025 1 1 Reason for Visit * Auth/Cert (Routine) Specialty Diagnoses / Procedures Referred By Contac t Referred To Contact Diagnoses Squamous cell carcinoma, lip Acute osteomyelitis of sternum (CMS/HCC) Secondary malignant neoplasm lymph nodes of head, face and neck (CMS/HCC) Acute osteomyelitis of left clavicle (CMS/HCC) ostemoyelitis, bacteremia, [facility] Reji Daly MD [address] [place] [address] Phone: tel: fax: [facility] Inpatient [address] [place] [address] Phone: tel: Referral ID Status Reason Start Date Expiration Date Visits Re quested Visits Authorized [id number] 1 1 Encounter Details Date Type Department Care Team (Latest Contact Info) Description 07/21/2024 2:02 PM EDT - 07/21/2024 11:59 PM EDT Hospital Encounter [facility] Radiology [address] [place] [address] Squamous cell carcinoma, lip; Secondary malignant neoplasm lymph nodes of head, face and neck (CMS/HCC); Dysphagia, oropharyngeal phase Discharge Disposition: Home or Self Care Social History Tobacco Use Types Packs/Day Years Used Date Smoking Tobacco: Never Passive Smoke Exposure: Never Smokeless Tobacco: Never Alcohol Use Standard Drinks/Week Comments Yes 0 (1 standard drink = 0.6 oz pur e alcohol) social. Humiliation, Afraid, Rape, and Kick questionnair e Answer Date Recorded Within the last year, have y ou been afraid of your partner or ex-partner? No 07/28/2024 Within the last year, have y ou been humiliated or emotionally abused in other ways by your partner or ex-partner? No Within the last year, have y ou been kicked, hit, slapped, or otherwise physically hurt by your partner or ex-partner? No 07/28/2024 Within the last year, have y ou been raped or forced to have any kind of sexual activity by your partner or ex-partner? No 07/28/2024 PHQ-2 Answer Date Recorded Patient Health Questionnaire-2 Score 0 05/13/2024 Hunger Vital Sign Answer Date Recorded Within the past 12 months, y ou worried that your food would run out before you got the money to buy more. Sometimes true Within the past 12 months, t he food you bought just didn't last and you didn't have money to get more. Sometimes true 09/2024 PRAPARE - Transportation Answer Date Re corded In the past 12 months, has l ack of transportation kept you from medical appointments or from getting medications? Yes 09/2024 In the past 12 months, has l ack of transportation kept you from meetings, work, or from getting things needed for daily living? Yes 07/28/2024 Housing Stability Vital Sign Answer Preet e [...] place to sleep or slept in a correction (including now)? No 01/08/2024 Housing Stability Vital Sign Answer Preet e Recorded In the last 12 months, was t here a time when you were not able to pay the mortgage or rent on time? No 07/28/2024 In the past 12 months, how m any times have you moved where you were living? 1 07/28/2024 At any time in the past 12 m [facility], were you homeless or living in a correction (including now)? No 07/28/2024 CAGE ASSESSMENT Answer Date Recorded Cage unable [...] drink first t idalia in the morning ([employer]) to steady your nerves or to get rid of a hangover? 0 07/22/2024 CAGE Questionnaire Score 0 025 Utilities Answer Date Recorded In the past 12 months has e [employer], [employer], oil, or water [employer] threatened to shut off services in your home? No 07/28/2024 Sex and Gender Information Value Date Recorded Sex Assigned at Male 01/06/2024 6:14 AM EDT Legal Sex Male 7:47 PM EDT Gender Identity Male 01/06/2024 6:14 AM EDT Sexual Orientation Not on file documented as of this encounter Functional Status * Calculated C-SSRS Risk Score (Lifetime/Recent) Answer Date of Assessment Author No Risk Indicated 07/27/2024 8:00 PM EDT Corie Andersen RN * Question Answer Date of Assessment Author 1. Wish to be (Past 1 Month) No 025 8:00 PM EDT Corie Andersen RN 2. Non-Specific Active Suici luis m Thoughts (Past 1 Month) No 07/27/2024 8:00 PM EDT Arielle Andersen RN 6. Suicidal Behavior (Lifetime) No 5 8:00 PM EDT Corie Andersen RN documented as of this encounter Medications at Time of Discharge methocarbamol (Robaxin) 500 MG tablet TAKE 2 TABLETS BY MOUTH EVERY 8 HOURS NEEDED FOR MUSCLE PAIN AND SPASM 06/30/2024 metroNIDAZOLE (Flagyl) 500 MG tablet 07/05/2024 ondansetron ODT (Zofran-ODT) 8 MG disintegrating tablet Take 1 tablet (8 mg) by mouth every 8 hours as needed for nausea or vomiting. 30 tablet 3 05/13/2024 sodium chloride 0.9 % solution 07/05/2024 vancomycin (Vancocin) 10 g reconstituted solution 07/05/2024 gabapentin (Neurontin) 600 MG tablet Take 1 tablet (600 mg) by mouth in the morning and 1 tablet (600 mg) in the evening and 1 tablet (600 mg) before bedtime. 45 tablet 2 06/09/2024 metroNIDAZOLE (Flagyl) 500 MG tablet Take 1 tablet by mouth every 8 hours. 07/05/2024 5 oxyCODONE (Roxicodone) 10 MG immediate release tablet Take 1-2 tablets by mouth every 4 (four) hours as needed for severe pain (g89.3). 180 tablet 07/06/2024 5 polyethylene glycol (Miralax) 17 GM/SCOOP powder MIX 17 GRAMS OF POWDER IN 8 OUNCES OF LIQUID AND DRINK ONCE DAILY 510 g 06/21/2024 5 documented as of this encounter Miscellaneous Notes * Progress Notes - Aundrea Collazo - 07/21/2024 2:50 PM EDT Date and Time of Extravasation: 07/21/24 1440 Patient Contact Number(s):[phone] Location/Modality: PAV A CT Intravascular (IV) Access Gauge and Site: 22g LAC Age of IV: a few hours Angle/Position of Site During Extravasation (Example: Arm Bent During Injection):arm down by side Was a [place] used to obtain a photo of the affected area? Yes If No, reason: Was the affected area marked with a skin marker? Yes If No, reason: What are the dimensions (shape/size/measurement) of the affected area? 7x5 inches Estimated Amount of Contrast Extravasated: 10 mL Name of Contrast : Iohexol 300 Name of Technologist Injecting:Crystal Collazo Physician who Assessed the Patient:Jaylen Deng Patient Disposition prior to Leaving Department:[facility] Physician Initial Note: Cosigned by Jaylen Deng DO at 07/21/2024 3:48 PM EDT Associated attestation - Jaylen Deng DO - 07/21/2024 3:48 PM EDT Called to CT room for extravasation of contrast to patients left antecubital region. Patient reported pain when the extravasation initially occurred but reported that the pain has improved at the time of exam. He denies any numbness or tingling of his left arm. On physical exam, patient lying on CT table. There is a focal area of swelling above the IV site in the left antecubital soft tissues. Sensation and movement of left upper extremity is intact. Radial and pulses are 2+. Hand is well perfused with capillary refill less than 2 seconds. No change in skin color or ulceration.No concern for compartment syndrome at this time. Patient counseled to return to the Emergency Room if develops any increased pain or develops any numbness or tingling of left upper extremity, or any skin color changes. Recommended to apply a warm or cool compress to the area and elevate left upper extremity to help with the swelling. Patient agrees to plan and any questions were answered. * Progress Notes - Avril Hallman RN - 07/21/2024 2:50 PM EDT Document condition of area affected after Extravasation, noting any increased or decreased swelling, blisters, pain, temperature, sensation in extremity, and/or decreased mobility in extremity. Any concerning issues or decline in condition identified during this call shall be discussed with a Radiology Physician. 24-Hour Follow Up: calling to follow up on patient's LAC IV extravasation site; pt has some swelling to site but it has improved from yesterday; pt denies any issues with redness, pain, or ROM. * Progress Notes - Avril Hallman RN - 07/21/2024 2:50 PM EDT Document condition of area affected after Extravasation, noting any increased or decreased swelling, blisters, pain, temperature, sensation in extremity, and/or decreased mobility in extremity. Any concerning issues or decline in condition identified during this call shall be discussed with a Radiology Physician. 4-5 Day Follow Up: calling to follow up on patient's LAC IV extravasation site; pt denies any issues with redness, swelling, pain, or ROM. * Kristin Degroot - Juan C Thomson T - 07/21/2024 2:11 PM EDT Images from the original note were not included. 1639 Caring for Yourself after Contrast Imaging If you had ORAL contrast: ?? You can go back to your normal diet and activities as tolerated. ?? Drink plenty of fluids, unless told otherwise. If you had IV contrast: ?? You can go back to your normal diet and activities as tolerated. ?? Drink plenty of fluids, unless told otherwise. ?? Leave a bandage on the site for 30 minutes (where the IV was inserted or blood was drawn). If you had Intravesical (bladder) contrast: ?? Return to normal diet and activity. What you need to know about delayed reaction to IV contrast What is IV Contrast? ?? Contrast is a dye that is put into your body through an IV. ?? It is used for imaging scans such as CT scans and MRIs. ?? The contrast makes blood vessels, organs and other parts of your body show up better on the scan. What do I need to do after IV contrast? ?? Drink lots of fluids. This will help flush the contrast out of your system. ?? Drink 2-3 extra glasses or bottles of water within 4 hours of your scan. What is a contrast reaction? ?? A contrast reaction is a bad side effect from the contrast dye. ?? It is rare but it does happen. ?? They can be mild - such as sneezing, itching, or hives. ?? They can be severe - such as trouble breathing, throat swelling, and irregular heart beat. When do these reactions happen? ?? They often happen right after the contrast is injected. ?? Some happen hours after going home. Go to the nearest Emergency Department right away if you have any of these symptoms after you leavethe clinic or hospital. ?? Sneezing ?? Itching in your mouth, throat, eyes, ears, or skin ?? Rash or hives ?? Throwing up or stomach sickness ?? High heart rate or ?racing? of your heart ?? Feeling dizzy or woozy ?? Feeling short of breath or like you can?t take a deep breath ?? Feeling very anxious for no other reason It is very important that these reactions be treated. Tell the doctor or nurse that you are having a reaction to IV contrast dye. Do not ignore any sign of a reaction! All reactions must be assessed by a doctor. Call 911 if you are alone and your reaction is more than mild sneezing or itching. If you have a mild reaction, call to speak with a Radiologist, explain that you havehad a contrast reaction, as this needs to be added to your medical record. documented in this encounter Plan of Treatment Upcoming Encounters Date Type Department Care Team (Late st Contact Info) Description 09/23/2024 1:45 PM EDT Evaluation [facility] [address] [facility] [address] [place] [phone] Kelsey Cerda, DMD [address] [facility] [address] [place] [address] 10/06/2024 11:45 AM EDT Office Visit [facility] [address] [facility]nd [place] [phone] Matias Eldridge MD [address] [facility] [address] [place] [phone] 12/13/2024 10:00 AM EDT Office Visit [facility] [address] [facility], [address]nd [place] [address] Willie Penaloza MD [address] [facility] [address] [place] [phone] 12/13/2024 1:00 PM EDT Appointment [facility] Radiation [address] 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, face and neck (CMS/HCC) Dysphagia, oropharyngeal phase CT SOFT TISSUE NECK W IV CONTRAST Routine 07/21/2024 2:39 PM EDT Squamous cell carcinoma, 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 No new masses are identified in the neck soft tissues. Mural thickening in the pharynx and larynx is consistent with treatment effects. Stable distortion of the posterior oral tongue and left tongue base, also attributed to treatment. Superficial enhancement in the left tongue base defect likely represents post-surgical/treatment changes; correlation with direct visualization is recommended. No significant cervical adenopathy. Multiple nonspecific small mediastinal lymph nodes are present. Erosive osseous changes of the left sternoclavicular joint are compatible with treated osteomyelitis. RECOMMENDATIONS: Clinical Correlation with Direct Visualization: recommend correlation of the superficial enhancement in the left tongue base defect with direct visualization to assess for any signs of residual or recurrent disease. Review Chest CT: Review the separate chest CT report for a comprehensive evaluation of the mediastinal lymph nodes and overall assessment of thoracic treatment response. Consider PET/CT if Clinically Indicated: If clinical suspicion for recurrence is high or if the mediastinal lymph nodes are concerning on the chest CT, a PET/CT scan may be beneficial to evaluate for metabolically active disease. Continue Clinical Follow-up: Ongoing clinical follow-up is essential to monitor for any signs or symptoms of recurrence. CRITICAL RESULT: No. COMMUNICATION: Per this written report. Drafted by Jamir Sow MD on 07/28/2024 10:54 AM Final report signed by Jamir Sow MD on 07/28/2024 11:12 AM Narrative 07/28/2024 11:12 AM EDT CLINICAL INDICATION: Head/neck cancer, assess treatment response TECHNIQUE: Helical images were obtained through the neck, and reconstructed in the axial plane on bone and soft tissue algorithm at multiple slice thicknesses. Coronal and sagittal reformatted images were created. 100 mL of Omnipaque 300 were administered intravenously. Total DLP (Dose-Length Product): 1549.04 mGy.cm. Please note: The reported value represents the total of one or more individual components during the CT acquisition on this date and at this time, and as such, the same value may appear in more than one CT report depending on the interpreting/reporting physicians. COMPARISON: Prior CT exam from December 10, 2023. FINDINGS: Diagnostic Quality: Adequate. Soft Tissues: The patient is status post left mandibulectomy with flap reconstruction, resection of previously noted necrotic cystic mass in the left submandibular space and the adjacent soft tissues of the neck. There are also the expected postoperative/treatment changes in bilateral neck dissections. No new masses are present within the soft tissues of the neck. Lymph Nodes: No significant cervical adenopathy is present. There are clusters of multiple small mediastinal lymph nodes. Pharynx/Larynx: There is mural thickening in the pharynx and larynx compatible with treatment effects. There is unchanged appearance of the distortion of the posterior oral tongue and the left tongue base thought to be treatment effects. There is superficial enhancement within the defect in the left tongue base that is thought to postsurgical or treatment related but can be be correlated with direct visualization. There is adduction of the true vocal folds that limits evaluation of the glottis. No definite laryngeal masses are present. Oral Cavity: No large masses are present within the oral cavity within the limitations of the study. Parapharyngeal Space: No lesions are present within the parapharyngeal space. Salivary Glands: The submandibular glands are surgically absent. There are also noted postoperative changes of the left parotid gland. The right parotid gland is normal in size without definite focal lesions. Thyroid: No focal thyroid lesions are present, within the limitations of the study. Orbits/Paranasal Sinuses/Skull Base/Posterior Fossa: No orbital masses are present within the visualized portions of the orbits. The visualized paranasal sinuses are grossly clear. Within the skull base, there is no focal lesion or destructive process. No abnormality is identified within the posterior fossa. Bones/Spine: Mild spondylotic change of the visualized spine. Status post left mandibulectomy and flap reconstruction. Erosive changes of the bones of the left sternoclavicular joint is compatible with treated osteomyelitis (image 17, series 3). Thoracic Inlet and Lung Apices: Within the limitations of the study, no large masses are present at the thoracic inlet. The lung apices are grossly clear. Please see the separate report for the chest CT scan for further discussion of intrathoracic findings. Other Findings: None. Procedure Note Jamir Sow MD - 07/28/2024 CLINICAL INDICATION: Head/neck cancer, assess treatment response TECHNIQUE: Helical images were obtained through the neck, and reconstructed in theaxial plane on bone and soft tissue algorithm at multiple slicethicknesses. Coronal and sagittal reformatted images were created. 100 mLof Omnipaque 300 were administered intravenously. Total DLP (Dose-Length Product): 1549.04 mGy.cm. Please note: The reportedvalue represents the total of one or more individual components during theCT acquisition on this date and at this time, and as such, the same valuemay appear in more than one CT report depending on theinterpreting/reporting physicians. COMPARISON: Prior CT exam from December 10, 2023. FINDINGS: Diagnostic Quality: Adequate. Soft Tissues: The patient is status post left mandibulectomy with flapreconstruction, resection of previously noted necrotic cystic mass in theleft submandibular space and the adjacent soft tissues of the neck. Thereare also the expected postoperative/treatment changes in bilateral neckdissections. No new masses are present within the soft tissues of theneck. Lymph Nodes: No significant cervical adenopathy is present. There areclusters of multiple small mediastinal lymph nodes. Pharynx/Larynx: There is mural thickening in the pharynx and larynxcompatible with treatment effects. There is unchanged appearance of thedistortion of the posterior oral tongue and the left tongue base thoughtto be treatment effects. There is superficial enhancement within thedefect in the left tongue base that is thought to postsurgical ortreatment related but can be be correlated with direct visualization.There is adduction of the true vocal folds that limits evaluation of theglottis. No definite laryngeal masses are present. Oral Cavity: No large masses are present within the oral cavity within thelimitations of the study. Parapharyngeal Space: No lesions are present within the parapharyngealspace. Salivary Glands: The submandibular glands are surgically absent. There arealso noted postoperative changes of the left parotid gland. The rightparotid gland is normal in size without definite focal lesions. Thyroid: No focal thyroid lesions are present, within the limitations ofthe study. Orbits/Paranasal Sinuses/Skull Base/Posterior Fossa: No orbital masses arepresent within the visualized portions of the orbits. The visualizedparanasal sinuses are grossly clear. Within the skull base, there is nofocal lesion or destructive process. No abnormality is identified withinthe posterior fossa. Bones/Spine: Mild spondylotic change of the visualized spine. Status postleft mandibulectomy and flap reconstruction. Erosive changes of the bonesof the left sternoclavicular joint is compatible with treatedosteomyelitis (image 17, series 3). Thoracic Inlet and Lung Apices: Within the limitations of the study, nolarge masses are present at the thoracic inlet. The lung apices aregrossly clear. Please see the separate report for the chest CT scan forfurther discussion of intrathoracic findings. Other Findings: None. IMPRESSION: Stable post-treatment changes in the neck following left mandibulectomywith flap reconstruction, resection of a left submandibular cystic mass,and bilateral neck dissections. No new masses are identified in the necksoft tissues. Mural thickening in the pharynx and larynx is consistent with treatmenteffects. Stable distortion of the posterior oral tongue and left tonguebase, also attributed to treatment. Superficial enhancement in the lefttongue base defect likely represents post-surgical/treatment changes;correlation with direct visualization is recommended. No significant cervical adenopathy. Multiple nonspecific small mediastinallymph nodes are present. Erosive osseous changes of the left sternoclavicular joint are compatiblewith treated osteomyelitis. RECOMMENDATIONS: Clinical Correlation with Direct Visualization: recommend correlation ofthe superficial enhancement in the left tongue base defect with directvisualization to assess for any signs of residual or recurrent disease. Review Chest CT: Review the separate chest CT report for a comprehensiveevaluation of the mediastinal lymph nodes and overall assessment ofthoracic treatment response. Consider PET/CT if Clinically Indicated: If clinical suspicion forrecurrence is high or if the mediastinal lymph nodes are concerning on thechest CT, a PET/CT scan may be beneficial to evaluate for metabolicallyactive disease. Continue Clinical Follow-up: Ongoing clinical follow-up is essential tomonitor for any signs or symptoms of recurrence. CRITICAL RESULT: No. COMMUNICATION: Per this written report. Drafted by Jamir Sow MD on 07/28/2024 10:54 AM Final report signed by Jamir Sow MD on 07/28/2024 11:12 AM us Willie Penaloza MD IMG CT PROCEDURES Final Resu lt * CT Chest w IV Contrast (07/21/2024 2:39 PM EDT) Anatomical Region Laterality Modality Chest Computed Tomogra phy Impressions 07/21/2024 3:14 PM EDT No acute pulmonary process. No new focal consolidation Interval development of asymmetric soft tissue thickening and inflammation adjacent to the left sternoclavicular joint along with new small lytic changes in the medial head of the left clavicle and left side of the manubrium. The constellation of findings concerning for soft tissue infection/osteomyelitis with septic arthritis. Clinical correlation and joint aspiration is recommended. CRITICAL RESULT: Yes COMMUNICATION: These findings were discussed via secure chat with WILLIE PENALOZA on 07/21/2024 3:10 PM by Elise Adams MD with acknowledgment of the results. Drafted by Elise Adams MD on 07/21/2024 3:04 PM Final report signed by Elise Adams MD on 07/21/2024 3:14 PM Narrative 07/21/2024 3:14 PM EDT CLINICAL INDICATION: Aspiration TECHNIQUE: Multiple CT helical images were obtained from thoracic inlet through upper abdomen without administration of IV contrast. Total DLP (Dose-Length Product): 1549.04 mGy.cm. Please note: The reported value represents the total of one or more individual components during the CT acquisition on this date and at this time, and as such, the same value may appear in more than one CT report depending on the interpreting/reporting physicians. COMPARISON: 12/18/2023 FINDINGS: Mediastinum and Pleura: Coronary arteriosclerosis. No pericardial or pleural effusion. No enlarged mediastinal or hilar lymph nodes. Lungs: Central airways are patent. No focal consolidation. A 4 mm right lower lobe nodule (series 2 image 52) is stable. Cluster of tiny nodules in the left lower lobe are stable (series 2 image 58). Upper Abdomen: Stable tiny hypodensity in the right hepatic lobe. Musculoskeletal: There is asymmetric soft tissue thickening and inflammation surrounding the left sternoclavicular joint with small lytic changes in the medial head of the left clavicle as well as the posterior aspect of the left manubrium. Procedure Note Elise Adams MD - 07/21/2024 CLINICAL INDICATION: Aspiration TECHNIQUE: Multiple CT helical images were obtained from thoracic inlet through upperabdomen without administration of IV contrast. Total DLP (Dose-Length Product): 1549.04 mGy.cm. Please note: The reportedvalue represents the total of one or more individual components during theCT acquisition on this date and at this time, and as such, the same valuemay appear in more than one CT report depending on theinterpreting/reporting physicians. COMPARISON: 12/18/2023 FINDINGS: Mediastinum and Pleura: Coronary arteriosclerosis. No pericardial orpleural effusion. No enlarged mediastinal or hilar lymph nodes. Lungs: Central airways are patent. No focal consolidation. A 4 mm rightlower lobe nodule (series 2 image 52) is stable. Cluster of tiny nodulesin the left lower lobe are stable (series 2 image 58). Upper Abdomen: Stable tiny hypodensity in the right hepatic lobe. Musculoskeletal: There is asymmetric soft tissue thickening andinflammation surrounding the left sternoclavicular joint with small lyticchanges in the medial head of the left clavicle as well as the posterioraspect of the left manubrium. IMPRESSION: No acute pulmonary process. No new focal consolidation Interval development of asymmetric soft tissue thickening and inflammationadjacent to the left sternoclavicular joint along with new small lyticchanges in the medial head of the left clavicle and left side of themanubrium. The constellation of findings concerning for soft tissueinfection/osteomyelitis with septic arthritis. Clinical correlation andjoint aspiration is recommended. CRITICAL RESULT: Yes COMMUNICATION: These findings were discussed via secure chat with WILLIE PENALOZA on07/21/2024 3:10 PM by Elise Adams MD with acknowledgment of theresults. 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, face and neck (CMS/HCC) Dysphagia, oropharyngeal phase documented in this encounter Administered Medications Inactive Administered Medications - up to 3 most recent administrations Medication Order MAR Action Action Date Dose Rate Site iohexol (OMNIPaque) 300 MG/ML injection 100 mL 100 mL, Intravenous, Once in imaging, 1 dose, Starting on Fri07/21/24 at 1411, Until Fri07/21/24 at 1428, Routine, Imaging Protocol Orders Given 07/21/2024 2:28 PM EDT 100 mL documented in this encounter Additional Health Concerns Infection Onset Date 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 02/19/2024 Assessment Noted Time A fall risk assessment has been complete d for the patient 06/17/2024 9:31 AM EDT A Body Mass Index follow-up plan has been documented for the patient 07/20/2024 12:57 PM EDT documented as of this encounter Care Teams Oracle Business Intelligence Developer Relationship Specialty Start Date End Date Carson Ibrahim MD [address] [facility] [address] [place] [address] PCP - General 11/20/23 Imer Sevilla MD [address] [facility] [address] [place] [phone] Consulting Physician Radiation Oncology 02/27/24 Willie Penaloza MD [address] [facility] [address] [place] [address] Consulting Physician Medical Oncology 04/21/24 Amelia Freeman, RN Registered Nurse Hematology and Oncology 05/13/24 documented as of this encounter
--- OUTSIDE RECORDS SUMMARY | 2024-07-22 09:15 | XMS_ITS | Encounter Summary ---
Author Organization Healthcare Address [address] [place] [address] Care Team Providers Care Market President Name Role Phone Carson Ibrahim MD Primary Care Provider + [phone] Imer Sevilla MD Unavailable Viky Menon MD Unavailable +[phone] Amelia Freeman RN Unavailable Unavailable Reason for Visit * Reason Comments Labs * Auth/Cert (Routine) Specialty Diagnoses / Procedures Referred By Kameron santana Referred To Contact Diagnoses Squamous cell carcinoma, lip Acute osteomyelitis of sternum (CMS/HCC) Secondary malignant neoplasm lymph nodes of head, face and neck (CMS/HCC) Acute osteomyelitis of left clavicle (CMS/HCC) ostemoyelitis, bacteremia, [facility] Reji Daly MD [address] [place] [address] Phone: tel: fax: P[facility] H Inpatient [address] [place] [address] Phone: tel: Referral ID Status Reason Start Date Expiration Date Visits Re quested Visits Authorized [id number] 1 1 Encounter Details Date Type Department Care Team (Latest Contact Info) Description 07/22/2024 9:15 AM EDT Clinical Support Pav [facility] Head, Neck & Respiratory [address] [facility] [place] [address] Squamous cell carcinoma, lip; Secondary malignant neoplasm lymph nodes of head, face and neck (CMS/HCC); Dysphagia, oropharyngeal phase Social History Tobacco Use Types Packs/Day Years [...] place to sleep or slept in a retirement (including now)? 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 Wish to be (Past 1 Month) No 025 8:50 AM EDT [place], [place] R 2. Non-Specific Active Suici luis m Thoughts (Past 1 Month) No 07/22/2024 8:50 AM EDT Torrey Halina enix R 6. Suicidal Behavior (Lifetime) No 8:50 AM EDT [place], [place] R documented as of this encounter Plan of Treatment Upcoming Encounters Date Type Department Care Team (Late st Contact Info) Description 09/23/2024 1:45 PM EDT Evaluation [facility] [address] [place] [address] Kelsey Cerda, DMD [address] [place] [phone] 10/06/2024 11:45 AM EDT Office Visit [facility] Head[facility] Ne[facility] Res[facility] [address] [facility] [place] [phone] Matias Eldridge MD [address] [facility] [address] [place] [address] 12/13/2024 10:00 AM EDT Office Visit [facility] Head[facility] Neck [facility] Res[facility] [address] [facility] [place] [phone] Viky Menon MD [address] [facility] [address] [place] [address] 12/13/2024 1:00 PM EDT Appointment [facility] CC Radiation [address] 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, face and neck (CMS/HCC) Dysphagia, oropharyngeal phase TSH Routine 07/22/2024 8:57 AM EDT Squamous cell carcinoma, 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, face and neck (CMS/HCC) Dysphagia, oropharyngeal phase COMPREHENSIVE METABOLIC PANEL, PLASMA Routine 07/22/2024 8:57 AM EDT Squamous cell carcinoma, 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, face and neck (CMS/HCC) Dysphagia, oropharyngeal phase documented in this encounter Results * (ABNORMAL) CBC and Differential (07/22/2024 8:57 AM EDT) WBC Count 4.71 3.70 - 10.30 10*3/uL LAB HEMATOLOGY METHOD 07/22/2024 9:15 AM EDT [facility] RBC Count 3.93(L) 4.60 - 6.10 10*6/uL LAB HEMATOLOGY METHOD 07/22/2024 9:15 AM EDT [facility] HGB 11.4(L) 13.7 - 17.5 g/dL LAB HEMATOLOGY METHOD 07/22/2024 9:15 AM EDT [facility] HCT 35.1(L) 40.0 - 51.0 % LAB HEMATOLOGY METHOD 07/22/2024 9:15 AM EDT [facility] Platelet Count 327 155 - 369 10*3/uL LAB HEMATOLOGY METHOD 07/22/2024 9:15 AM EDT [facility] MCV 89 79 - 98 fL LAB HEMATOLOGY METHOD 07/22/2024 9:15 AM EDT [facility] MCH 29.0 26.0 - 32.0 pg LAB HEMATOLOGY METHOD 07/22/2024 9:15 AM EDT [facility] MCHC 32.5 30.7 - 35.5 g/dL LAB HEMATOLOGY METHOD 07/22/2024 9:15 AM EDT [facility] RDW 17.0(H) 11.5 - 14.5 % LAB HEMATOLOGY METHOD 07/22/2024 9:15 AM EDT [facility] MPV 10.1 8.8 - 12.5 fL LAB HEMATOLOGY METHOD 07/22/2024 9:15 AM EDT [facility] nRBC 0.0 <=0.0 per 100 WBCs LAB HEMATOLOGY METHOD 07/22/2024 9:15 AM EDT [facility] Differential Type Automated LAB HEMATOLOGY METHOD 07/22/2024 9:15 AM EDT [facility] Neutrophils % 69 % LAB HEMATOLOGY METHOD 07/22/2024 9:15 AM EDT [facility] Lymphocytes % 16 % LAB HEMATOLOGY METHOD 07/22/2024 9:15 AM EDT [facility] Monocytes % 11 % LAB HEMATOLOGY METHOD 07/22/2024 9:15 AM EDT [facility] Eosinophils % 3 % LAB HEMATOLOGY METHOD 07/22/2024 9:15 AM EDT [facility] Basophils % 1 % LAB HEMATOLOGY METHOD 07/22/2024 9:15 AM EDT [facility] Immature Granulocytes % 0 % LAB HEMATOLOGY METHOD 07/22/2024 9:15 AM EDT [facility] Neutrophils Absolute 3.22 1.60 - 6.10 10*3/uL LAB HEMATOLOGY METHOD 07/22/2024 9:15 AM EDT [facility] Lymphocytes Absolute 0.77(L) 1.20 - 3.90 10*3/uL LAB HEMATOLOGY METHOD 07/22/2024 9:15 AM EDT [facility] Monocytes Absolute 0.51 0.30 - 0.90 10*3/uL LAB HEMATOLOGY METHOD 07/22/2024 9:15 AM EDT [facility] Eosinophils Absolute 0.16 0.00 - 0.50 10*3/uL LAB HEMATOLOGY METHOD 07/22/2024 9:15 AM EDT [facility] Basophils Absolute 0.04 0.00 - 0.10 10*3/uL LAB HEMATOLOGY METHOD 07/22/2024 9:15 AM EDT [facility] Immature Granulocytes Absolute 0.01 0.00 - 0.06 10*3/uL LAB HEMATOLOGY METHOD 07/22/2024 9:15 AM EDT [facility] Blood Venous blood specimen / Unknown Venipuncture / Unknown 07/22/2024 8:57 AM EDT 07/22/2024 9:06 AM EDT Narrative [facility] - 07/22/2024 9:15 AM EDT Therapeutic decision making should be based on absolute values, rather than percentages. us Viky Menon MD LAB BLOOD ORDERABLES Final R esult [facility] [address] [place] [address] * (ABNORMAL) Comprehensive Metabolic Panel, Plasma (07/22/2024 8:57 AM EDT) Glucose, Plasma 109(H) 74 - 99 mg/dL 07/22/2024 9:45 AM EDT [facility] BUN, Plasma 10 7 - 21 mg/dL 07/22/2024 9:45 AM EDT [facility] Creatinine, Plasma 0.75 0.70 - 1.20 mg/dL 07/22/2024 9:45 AM EDT [facility] BUN/Creatinine Ratio 13 07/22/2024 9:45 AM EDT [facility] Sodium, Plasma 134(L) 136 - 145 mmol/L 07/22/2024 9:45 AM EDT [facility] Potassium, Plasma 3.9 3.6 - 4.9 mmol/L 07/22/2024 9:45 AM EDT [facility] Chloride, Plasma 99 97 - 107 mmol/L 07/22/2024 9:45 AM EDT [facility] CO2, Plasma 24 22 - 29 mmol/L 07/22/2024 9:45 AM EDT [facility] Anion Gap 11 6 - 16 mmol/L 07/22/2024 9:45 AM EDT [facility] Total Calcium, Plasma 9.3 8.9 - 10.2 mg/dL 07/22/2024 9:45 AM EDT [facility] Total Protein 7.9 6.3 - 7.9 g/dL 07/22/2024 9:45 AM EDT [facility] Albumin, Plasma 3.3(L) 3.5 - 5.2 g/dL 07/22/2024 9:45 AM EDT [facility] AST, Plasma 25 10 - 50 U/L 07/22/2024 9:45 AM EDT [facility] Comment:Hemolyzed, result ma y be falsely increased. ALT, Plasma 7(L) 10 - 50 U/L 07/22/2024 9:45 AM EDT [facility] Alkaline Phosphatase, Plasma 57 40 - 115 U/L 07/22/2024 9:45 AM EDT [facility] Total Bilirubin, Plasma 0.6 0.2 - 1.1 mg/dL 07/22/2024 9:45 AM EDT [facility] eGFRcr 109.9 mL/min/1.7 3m*2 07/22/2024 9:45 AM EDT [facility] Comment:Reported eGFRcr in m L/min/1.73m2 is based the CKD-EPI 2020 equation that does not use a race coefficient. Blood Venous blood specimen / Unknown Venipuncture / Unknown 07/22/2024 8:57 AM EDT 07/22/2024 9:05 AM EDT Viky Menon MD LAB BLOOD ORDERABLES Final R esult Performing Organization Address City/[facility]/ZIP Co de Phone Number [facility] [address] [place] [address] * Thyroid Stimulating Hormone, Plasma (07/22/2024 8:57 AM EDT) Thyroid Stimulating Hormone, Plasma 2.46 0.40 - 4.20 uIU/mL 07/22/2024 9:45 AM EDT [facility] Blood Venous blood specimen / Unknown Venipuncture / Unknown 07/22/2024 8:57 AM EDT 07/22/2024 9:05 AM EDT Viky Menon MD LAB BLOOD ORDERABLES Final R esult Performing Organization Address City/[facility]/ZIP Co de Phone Number [facility] [address] [place] [phone] documented in this encounter Visit Diagnoses Diagnosis Squamous cell carcinoma, 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, face and neck (CMS/HCC) Dysphagia, oropharyngeal phase documented in this encounter Additional Health Concerns Infection Onset Date 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 02/19/2024 Assessment Noted Time A fall risk assessment has been complete d for the patient 07/22/2024 8:50 AM EDT A Body Mass Index follow-up plan has been documented for the patient 07/28/2024 3:32 PM EDT documented as of this encounter Care Teams Market President Relationship Specialty Start Date End Date Carson Ibrahim MD [address] [facility] [address] [place] [address] PCP - General 11/20/23 Imer Sevilla MD [address] [address] Consulting Physician Radiation Oncology 02/27/24 Viky Menon MD [address] [facility] [address] [phone] Consulting Physician Medical Oncology 04/21/24 Amelia Freeman, RN Registered Nurse Hematology and Oncology 05/13/24 documented as of this encounter
--- OUTSIDE RECORDS SUMMARY | 2024-07-22 09:30 | XMS_ITS | Encounter Summary ---
Author Organization Healthcare Address [address] [place] [id number] Care Team Providers Care Dress Operator Name Role Phone Carson Ibrahim MD Primary Care Provider + [phone] Imer Sevilla MD Unavailable Viky Menon MD Unavailable [phone] Amelia Freeman RN Unavailable Unavailable Reason for Referral * Consultation (Urgent) - Closed Specialty Diagnoses / Procedures Referred By Contac t Referred To Contact Infectious Diseases Diagnoses Bacteremia Other acute osteomyelitis, other site ([facility]) Viky Menon MD [address] [address] Phone: tel: fax: Referral ID Status Reason Start Date Expiration Date V isits Requested Visits Authorized [id number] Closed Specialty Services Required 07/22/2024 01/21/2026 1 1 * Imaging (Routine) - Authorized Specialty Diagnoses / Procedures Referred By Contmartin t Referred To Contact Cardiology Diagnoses Bacteremia Procedures Echo, Adult Transthoracic Complete Viky Menon MD [address] [address] Phone: tel: fax: Referral ID Status Reason Start Date Expiration Date Visits Requested Visits Authorized [id number] Authorized Perform Procedure 07/22/2024 01/21/2026 1 3 Reason for Visit * Reason Comments Follow-up * Auth/Cert (Routine) Specialty Diagnoses / Procedures Referred By Contmartin t Referred To Contact Diagnoses Squamous cell carcinoma, lip Acute osteomyelitis of sternum (CMS/HCC) Secondary malignant neoplasm lymph nodes of head, face and neck (CMS/HCC) Acute osteomyelitis of left clavicle (CMS/HCC) ostemoyelitis, bacteremia, [facility] Reji Daly MD [address] [place] [address] Phone: tel: fax: P[facility] H Inpatient [address] [place] [address] Phone: tel: Referral ID Status Reason Start Date Expiration Date Visits Re quested Visits Authorized [id number] 1 1 Encounter Details Date Type Department Care Team ([facility] st Contact Info) Description 07/22/2024 9:30 AM EDT Office Visit Pav CC Head, Neck & Respiratory [address] [facility], [address] [place] [address] Viky Menon MD 800 [facility] [address] [place] [address] Bacteremia (Primary Dx); Malignant neoplasm of external lower lip; Other acute osteomyelitis, other site (CMS/HCC); Cancer related pain; CINV (chemotherapy-induce d nausea and vomiting) Social History Tobacco Use Types Packs/Day Years Used Date Smoking Tobacco: Never Passive Smoke Exposure: Never Smokeless Tobacco: Never Tobacco Cessation:Counseling Given: Not Answered Alcohol Use Standard Drinks/Week Comments Yes 0 [...] place to sleep or slept in a penitentiary (including now)? No 01/08/2024 CAGE ASSESSMENT Answer [...] drink first t idalia in the morning ([employer]) to steady your nerves or to get [...] on file documented as of this encounter Last Filed Vital Signs Vital Sign Reading Time Taken Comments Blood Pressure 117/81 07/22/2024 8:48 AM EDT Pulse 62 07/22/2024 8:48 AM EDT Temperature 36.3 C (97.4 F) 07/22/2024 8:48 AM EDT Respiratory Rate 16 07/22/2024 8:48 AM EDT Oxygen Saturation 99% 07/22/2024 8:48 AM EDT Inhaled Oxygen Concentration - - Weight 90.5 kg (199 lb 8.3 oz) 07/22/2024 8:48 A M EDT Height - - Body Mass Index 29.46 07/14/2024 8:57 AM EDT documented in this encounter Functional Status * Calculated C-SSRS Risk Score (Lifetime/Recent) Answer Date of Assessment Author No Risk Indicated 07/22/2024 12:46 PM EDT Amelia Rocha RN * Question Answer Date of Assessment Author 1. Wish to be (Past 1 Month) No 025 12:46 PM EDT Amelia Vazquez RN 2. Non-Specific Active Suici luis m Thoughts (Past 1 Month) No 07/22/2024 12:46 PM EDT Dulce Vazquez RN 6. Suicidal Behavior (Lifetime) No 12:46 PM EDT Amelia Vazquez RN documented as of this encounter Miscellaneous Notes * Progress Notes - Viky Menon MD - 07/22/2024 9:30 AM EDT MEDICAL ONCOLOGY FOLLOW-UP NOTE Patient Information Patient Name: Henny Daniels Jr. 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 is a 49 y.o. 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 he returns for followup after treatment of head and neck cancer. He recently was admitted to [facility] after 3 ER visits for MRSA bacteremia, MSSA UTI and also c. Difficile colitis. Francisco Javier presents with worsening Oncology History Overview Note His oncologic history is as follows: History of early stage left lower lip cancer in 2019, resected by Dr. Meyers. In 2019, he developed a left neck mass, and underwent a thyroidectomy and neck dissection with post-operative chemotherapy given by [place] by Dr. Cruz and radiation therapy given in [place]. CT Neck and Face 12-10-23 CT face with contrast: Infiltrating dominant necrotic/cystic soft tissue process centered in the left submandibular space and directly involving the floor of the mouth region and portions of the intrinsic tongue musculature on the left concerning for localized disease recurrence given reported history. Multiple concerning lymph nodes. Please corroborate these with most recent PET CT results.mmAt this time, the above described cystic abnormality extends along the inferior margin of the patient's left mandibular body. I do not see gross bony destruction or periosteal reaction on this study. CT neck with contrast: Multiple concerning cervical lymph nodes. Please correl ate these with most recent PET CT imaging results. CT Chest on 12/18/23 - NO EVIDENCE OF Distant DISEASE On January 06, 2024 he underwent composite resection of oral cavity malignancy with fibular free flap reconstruction, by Dr. Eldridge. Pathology has returned demonstrating metastatic squamous cell carcinoma within the left composite resection. The patient demonstrated extranodal extension, lymphovascular invasion, and perineural invasion. He underwent esophagram on 01/28/24 which revealed: Dysfunctional swallow with aspiration of thin barium. Apparent esophageal narrowing with minimal contrast passage through the esophagus. Within the limits of this incomplete evaluation, there is questionable linear opacity at the left proximal hypopharynx, didn't change or increase with time during the exam, could be artifactual or less likely a contained leak. Recommend repeat/follow-up exam after improvement of the patient's ability to swallow and tolerate larger sips of contrast. Delayed initiation of chemotherapy-radiation therapy due to right leg wound. Initiated weekly cisplatin and radiation therapy on 03/31/24. Developed tinnitus and slow wound healing and was switched to weekly carboplatin.Completed radiation therapy on 05/17/24 Squamous cell carcinoma, lip 01/01/2024 Initial Diagnosis Squamous cell carcinoma, lip 01/06/2024 Cancer Staged Staging form: Oral Cavity, AJCC 8th Edition, Pathologic stage from 01/06/2024: Stage IVB (rpTX, pN3b, cM0) - Signed by Viky Menon MD on 02/02/2024 03/31/2024 - 04/15/2024 Chemotherapy CISplatin (Platinol) 90 mg in sodium chloride 0.9 % 500 mL chemo IV, 40 mg/m2 = 90 mg, Intravenous,Once, 2 of 6 cycles Dose modification: 30 mg/m2 (original dose 40 mg/m2, Cycle 4) Administration: 90 mg (03/31/2024), 90 mg (04/08/2024) aprepitant (Cinvanti) 130 MG/18ML IV 130 mg, 130 mg, Intravenous, Once, 3 of 7 cycles Administration: 130 mg (03/31/2024), 130 mg (04/08/2024) 04/29/2024 - Chemotherapy CARBOplatin (Paraplatin) 300 mg in sodium chloride 0.9 % 500 mL chemo IVPB, 300 mg, Intravenous, Once, 1 of 1 cycle Administration: 300 mg (04/29/2024), 300 mg (05/06/2024), 300 mg (05/13/2024) Squamous cell carcinoma of neck 01/06/2024 Initial Diagnosis Squamous cell carcinoma of neck 03/10/2024 - Radiation Therapy The patient saw Imer Sevilla MD for radiation treatment. This is the current list of radiation treatment: No treatments are associated with the selected episodes (VMAT: Left Neck). Malignant neoplasm of external lower lip 03/18/2024 Initial Diagnosis Malignant neoplasm of external lower lip 03/18/2024 - Radiation Therapy The patient saw Imer Sevilla MD for radiation treatment. This is the current list of radiation treatment: VMAT: Bilateral Head and neck Treatment Period Fraction Dose Fractions Total Dose Course IMRT QA 03/26/2024-03/26/2024 (days elapsed: 0) Plans Planned H&N A1A4 03/26/2024-03/26/2024 200 cGy 0 / 1 200 cGy Reference Points Delivered Verification 03/26/2024-03/26/2024 -- -- 0 cGy Course C2 03/31/2024-05/17/2024 (days elapsed: 47) Plans Planned H&N A1A4 03/31/2024-05/17/2024 200 cGy 33 / 33 6,600 cGy Reference Points Delivered H&N 03/31/2024-05/17/2024 -- -- 6,600 cGy Secondary malignant neoplasm lymph nodes of head, face and neck (CMS/HCC) 03/18/2024 - Radiation Therapy The patient saw Imer Sevilla MD for radiation treatment. This is the current list of radiation treatment: VMAT: Bilateral Head and neck Treatment Period Fraction Dose Fractions Total Dose Course IMRT QA 03/26/2024-03/26/2024 (days elapsed: 0) Plans Planned H&N A1A4 03/26/2024-03/26/2024 200 cGy 0 / 1 200 cGy Reference Points Delivered Verification 03/26/2024-03/26/2024 -- -- 0 cGy Course C2 03/31/2024-05/17/2024 (days elapsed: 47) Plans Planned H&N A1A4 03/31/2024-05/17/2024 200 cGy 33 / 33 6,600 cGy Reference Points Delivered H&N 03/31/2024-05/17/2024 -- -- 6,600 cGy 03/18/2024 Initial Diagnosis Secondary malignant neoplasm lymph nodes of head, face and neck (CMS/HCC) Currently, he denies fever, or chills, nausea, vomiting, but it has increased debility suddenly over the last few days, left anterior chest pain, and has some erythema and swelling of left clavicularhead, as well as dry mouth, throat pain, dysphagia, and some tinnitus. Pertinent outside records are reviewed today from recent hospitalization - see scanned media. Problem List and Medications Reviewed and updated in this encounter by me personally Objective Performance Status 2: Ambulatory and capable of all self-care but unable to work. Up & about >50% waking hours Blood pressure 117/81, pulse 62, temperature 36.3 ??C (97.4 ??F), temperature source Axillary, resp. rate 16, weight 90.5 kg (199 lb 8.3 oz), SpO2 99%. EXAM Physical Exam Constitutional: General: He is not in acute distress. Appearance: He is ill-appearing. HENT: Head: Normocephalic and atraumatic. Comments: Left neck radiation induced stage 1-2 skin breakdown with scabbing Right Ear: External ear normal. Left Ear: External ear normal. Nose: Nose normal. Eyes: Extraocular Movements: Extraocular movements intact. Pupils: Pupils are equal, round, and reactive to light. Cardiovascular: Rate and Rhythm: Normal rate and regular rhythm. Heart sounds: No murmur heard. No friction rub. No gallop. Pulmonary: Effort: Pulmonary effort is normal. No respiratory distress. Breath sounds: Normal breath sounds. No stridor. No wheezing, rhonchi or rales. Abdominal: General: Bowel sounds are normal. There is no distension. Palpations: There is no mass. Tenderness: There is no abdominal tenderness. Musculoskeletal: Cervical back: Tenderness (lef clavicular head) present. Right lower leg: Edema present. Left lower leg: No edema. Lymphadenopathy: Cervical: No cervical adenopathy. Skin: Findings: Lesion present. Neurological: Mental Status: He is alert and oriented to person, place, and time. Cranial Nerves: No cranial nerve deficit (subjective tinnitus) or dysarthria. Sensory: No sensory deficit. Psychiatric: Mood and Affect: Mood normal. Behavior: Behavior normal. LABORATORIES STUDIES: reviewed by me personally today to monitor for cancer related drug toxicity and treatment related medical terminologist toxicity CBC WBC 4.71 Hgb 11.4 PLT 327 HCT 35.1 Lab Results Component Value Date NEUTROABS 3.22 07/22/2024 BMPL Na 134 Cl 99 BUN 10 Gluc 109 K 3.9 Co2 24 Creat 0.75 LIVER FUNCTION TESTING Tot Prot 7.9 AST 25 Tot bili 0.6 ALT 7 Alkphos 57 Ca 9.3 Mg 1.8 Phos 1.8 Lab Results Component Value Date TSH 2.46 07/22/2024 RADIOLOGY: I independently visualized the recent imaging below based on the patient's symptoms and oncologic history. CT Chest w IV Contrast Result Date: 07/21/2024 Impression: No acute pulmonary process. No new focal consolidation Interval development of asymmetric soft tissue thickening and inflammation adjacent to the left sternoclavicular joint along with new small lytic changes in the medial head of the left clavicle and left side of the manubrium. The constellation of findings concerning for soft tissue infection/osteomyelitis with septic arthritis. Clinical correlation and joint aspiration is recommended. Final report signed by Elise Adams MD on 07/21/2024 3:[address] neck pending reading by radiology, but reviewed by me and shows good response to treatment, no adenopathy but a new left clavicular head with erosive changes and soft tissue swelling, c/w possibleseptic arthritis and less likely metastatic disease. Assessment/Plan Cancer management: Cancer Staging Squamous cell carcinoma, lip Staging form: Oral Cavity, AJCC 8th Edition - Pathologic stage from 01/06/2024: Stage IVB (rpTX, rpN3b, rcM0) - Signed by Viky Menon MDon 02/02/2024 locally advanced recurrent lip cancer s/p resection followed by adjuvant chemotherapy and reirradiation therapy w/weekly cisplatin with re-irradiation C1 03/31/24 completed 05/17/24. - I reviewed liver and renal function as well as bone marrow function in relationship to this patient's ability to tolerate systemic cancer treatment. - I independently visualized the recent imaging given the patient's symptoms and oncologic history and discussed the current radiology findings with the patient in detail and answered all questions. I agree that this shows left clavicular head osteomyelitis. No evidence of active cancer. - Due to the clavicular head infection, will admit in discussions with Dr. Ibrahim, (PCP), Dr. Eldridge, this is likely going to need multidisciplinary care. See below. - RTC in 4.5M with labs/scans; RTC in 6W to see ENT with PET and/or after hospitalization 2. Recent admisstion to [facility] for MRSA bacteremia MSSA UTI and C. Diff, and now with osteomyelitis seen on CT, as well as slowly healing right LE skin graft site. - He developed symptoms of a urinary tract infection June 29 with blood cultures that day that werepositive for MRSA . He had several repeat blood cultures but eventually was admitted and received vancomycin intravenously from July 02 to a total of 10 days of IV antibiotics according to his primary care doctor. He was also given oral Flagyl for his C difficile colitis but it is unclear the length of time that he had Flagyl. Repeat cultures have been obtained on July 19 and it is unknown ifhe has cleared his bloodstream infection. - received 2 weeks of an unknown AB, and now presents with worsening left clavicular pain, osteomyelitis and slowly healing right leg wound Admit with the plans as follows: - Consult CT surgery for possible debridement and/or clavicular head resection - Consult Dr. Eldridge to manage the RLE flap issues - ECHO - Consult ID for appropriate antibiotics, and length of these. (I have drawn blood cultures today) 3. Pain related to neoplasm: - I have evaluated the prescription pain medications currently in use and recommended continuing the current regimen gabapentin 600 and oxycodone. 4. 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 Monitoring for the emergence of hypothyroidism - TSH is WITHIN NORMAL LIMITS at recent check - This will be periodically monitored as we continue therapy, due to the potential for worsening ofthyroid function from radiation and systemic cancer therapy. 6. Chemotherapy Induced Nausea: - ondansetron, compazine and close monitoring for nausea and vomiting. 7. Wound healing - wearing a wound vac and planned for skin graft next week - likely will have to delay this, but please consult Dr. Eldridge for this decision-making Viky Menon MD Orders Placed This Encounter Procedures Blood Culture (Aerobic/Anaerobet Set) Ambulatory referral to Infectious Disease Echo, Adult Transthoracic Complete * Progress Notes - Amelia Freeman RN - 07/22/2024 9:30 AM EDT I called report to Liss the ED charge nurse. documented in this encounter Plan of Treatment Upcoming Encounters Date Type Department Care Team (Late st Contact Info) Description 09/23/2024 1:45 PM EDT Evaluation [facility] [address] [facility] [address] [place] [address] Kelsey Cerda, DMD [address] [place] [address] 10/06/2024 11:45 AM EDT Office Visit Pav CC Head, Neck & Respiratory [address] [facility] [place] [address] Matisa Eldridge MD 800 [facility] [address] [place] [address] 12/13/2024 10:00 AM EDT Office Visit Pav CC Head, Neck & Respiratory [address] [facility], [address] [place] [address] Viky Menon MD [address] [facility] [address] [place] [address] 12/13/2024 1:00 PM EDT Appointment PAV CC Radiation [address] [facility]. [id number] [place] [phone] Imer Sevilla MD [address] [facility] [address] [place] [address] Scheduled Orders Name Type Priority Associated Diagnoses Order Schedule Echo, Adult Transthoracic Complete Echocardiography Routine Bacteremia Expected: 07/22/2024 (Approximate), Expires: 07/22/2026 Blood Culture (Aerobic/Anaerobet Set) Microbiology Routine Bacteremia Other acute osteomyelitis, other site ([facility]/HCC) Expected: 07/22/2024 (Approximate), Expires: 01/22/2026 Scheduled Procedures Name Priority Associated Diagnoses Date/Ti me APPLICATION, GRAFT, SKIN, SPLIT-THICKNESS Wound of right lower extremity PREPARATION, WOUND, PRIOR TO SKIN GRAFT APPLICATION Wound of right lower extremity Scheduled Referrals Name Type Priority Associated Diagnoses Order Schedule Ambulatory referral to Infectious Disease Outpatient Referral Routine Bacteremia Other acute osteomyelitis, other site ([facility]) Expected: 07/22/2024 (Approximate), Expires: 01/22/2026 documented as of this encounter Visit Diagnoses Diagnosis Bacteremia- Primary Malignant neoplasm of external lower lip Malignant neoplasm of lower lip, vermil[place] border Other acute osteomyelitis, other site (CMS/HCC) Cancer related pain CINV (chemotherapy-induced nausea and vomiting) documented in this encounter Additional Health Concerns Infection Onset Date 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 02/19/2024 Assessment Noted Time A fall risk assessment has been complete d for the patient 07/22/2024 8:50 AM EDT A Body Mass Index follow-up plan has been documented for the patient 07/28/2024 3:32 PM EDT documented as of this encounter Care Teams Dress Operator Relationship Specialty Start Date End Date Carson Ibrahim MD [facility] [address] [address] PCP - General 11/20/23 Imer Sevilla MD 800 [facility] [address] [place] [phone] Consulting Physician Radiation Oncology 02/27/24 Viky Menon MD [address] [facility] [address] [place] [address] Consulting Physician Medical Oncology 04/21/24 Amelia Freeman, RN Registered Nurse Hematology and Oncology 05/13/24 documented as of this encounter
--- OUTSIDE RECORDS SUMMARY | 2024-07-22 12:28 | XMS_ITS | Encounter Summary ---
Author Organization [facility] Address [address] [id number] Care Team Providers Care Polishing Machine Tender Name Role Phone Carson Ibrahim MD Primary Care Provider + [phone] Imer Sevilla MD Unavailable Viky Menon MD Unavailable [phone] Amelia Freeman RN Unavailable Unavailable Reason for Referral * Consultation (Routine) - Authorized Specialty Diagnoses / Procedures Referred By Contac t Referred To Contact Family Medicine Diagnoses HFrEF (heart failure with reduced ejection fraction) (CMS/HCC) Jennifer Vallejo MD [address] [place] [address] Phone: tel: fax: Referral ID Status Reason Start Date Expiration Date V isits Requested Visits Authorized [id number] Authorized 07/28/2024 01/27/2026 1 1 * Home Health (Routine) - Authorized Specialty Diagnoses / Procedures Referred By Contac t Referred To Contact Home Health Services / Case Management Diagnoses Acute osteomyelitis of sternum (CMS/HCC) Jennifer Vallejo MD [address] [place] [address] Phone: tel: fax: Referral ID Status Reason Start Date Expiration Date Visits Requested Visits Authorized [id number] Authorized Specialty Services Required 07/28/2024 01/27/2026 999 999 * Consultation (Routine) - Authorized Specialty Diagnoses / Procedures Referred By Kameron santana Referred To Contact Cardiology Diagnoses HFrEF (heart failure with reduced ejection fraction) (CMS/HCC) Jennifer Vallejo MD [address] [place] [address] Phone: tel: fax: Referral ID Status Reason Start Date Expiration Date Visits Requested Visits Authorized [id number] Authorized Specialty Services Required 07/28/2024 01/27/2026 1 1 Reason for Visit * Reason Comments Shoulder Pain * Auth/Cert (Routine) Specialty Diagnoses / Procedures Referred By Kameron santana Referred To Contact Diagnoses Squamous cell carcinoma, lip Acute osteomyelitis of sternum (CMS/HCC) Secondary malignant neoplasm lymph nodes of head, face and neck (CMS/HCC) Acute osteomyelitis of left clavicle (CMS/HCC) ostemoyelitis, bacteremia, [facility] Susannah Arevalo MD [address] [place] [address] Phone: tel: fax: [facility] Inpatient [address] [place] [address] Phone: tel: Referral ID Status Reason Start Date Expiration Date Visits Re quested Visits Authorized [id number] 1 1 Encounter Details Date Type Department Care Team (Late st Contact Info) Description 07/22/2024 12:28 PM EDT - 07/28/2024 4:19 PM EDT Hospital Encounter [facility] [address] [place] [address] Tripp Avalos MD [address] [place] [address] Susannah Arevalo MD [address] [place] [address] Dedrick So MD [address] [place] [address] Jennifer Vallejo MD [address] [place] [address] Acute osteomyelitis of sternum (CMS/HCC) (Primary Dx); Squamous cell carcinoma, lip; Secondary malignant neoplasm lymph nodes of head, face and neck (CMS/HCC); Acute osteomyelitis of left clavicle (CMS/HCC); HFrEF (heart failure with reduced ejection fraction) (CMS/HCC) Discharge Disposition: Home-Health Care c Social History Tobacco Use Types Packs/Day Years [...] place to sleep or slept in a intermediate (including now)? No 01/08/2024 Housing Stability Vital Sign Answer Preet e Recorded In the last 12 months, was t here a time when you were not able to pay the mortgage or rent on time? No 07/28/2024 In the past 12 months, how m any times have you moved where you were living? 1 07/28/2024 At any time in the past 12 m [facility], were you homeless or living in a intermediate (including now)? No 07/28/2024 CAGE ASSESSMENT Answer [...] drink first t idalia in the morning (EYE-INVASIVE MANAGER) to steady your nerves or to get [...] Sign Reading Time Taken Comments Blood Pressure 131/81 07/28/2024 4:03 PM EDT Pulse 68 07/28/2024 4:03 PM EDT Temperature 36.4 C (97.5 F) 07/28/2024 4:03 PM EDT Respiratory Rate 16 07/28/2024 12:24 AM EDT Oxygen Saturation 97% 07/28/2024 4:03 PM EDT Inhaled Oxygen Concentration - - Weight 90.3 kg (199 lb) 07/22/2024 11:31 AM EDT Height 177.8 cm (5' 10 ) 07/22/2024 11:31 AM EDT Body Mass Index 28.55 07/22/2024 11:31 AM EDT documented in this encounter Functional [...] Andersen RN 6. Suicidal Behavior (Lifetime) No 8:00 PM EDT Corie Andersen RN documented as of this encounter Discharge Instructions * Discharge Instructions* Brad Kerr MD - 07/28/2024 12:34 PM EDT -Call primary care doctor for a followup appointment regarding newly diagnosed heart failure and local cardiology referral . documented in this encounter Medications at Time of Discharge acetaminophen (Tylenol) 500 MG tablet Take 2 tablets by mouth every 6 hours as needed for pain. cyclobenzaprine (Flexeril) 5 MG tablet Take 1 tablet by mouth 3 times a day as needed for muscle spasms. famotidine (Pepcid) 20 MG tablet Take 1 tablet by mouth at night as needed for heartburn. methocarbamol (Robaxin) 500 MG tablet TAKE 2 TABLETS BY MOUTH EVERY 8 HOURS NEEDED FOR MUSCLE PAIN AND SPASM 06/30/2024 metoprolol succinate XL (Toprol-XL) 25 MG 24 hr tablet Take 1 tablet by mouth daily. Do not crush or chew. 90 tablet 3 07/28/2024 metroNIDAZOLE (Flagyl) 500 MG tablet 07/05/2024 Multiple Vitamin (multivitamin) tablet Take 1 tablet by mouth daily. ondansetron ODT (Zofran-ODT) 8 MG disintegrating tablet Take 1 tablet (8 mg) by mouth every 8 hours as needed for nausea or vomiting. 30 tablet 3 05/13/2024 sodium chloride 0.9 % solution 07/05/2024 traZODone (Desyrel) 100 MG tablet Take 1 tablet by mouth nightly. vancomycin (Vancocin) 10 g reconstituted solution 07/05/2024 DAPTOmycin (Cubicin) injectionIndication s:Acute osteomyelitis of left clavicle (CMS/HCC) Infuse 18 mL into a venous catheter 1 (one) time each day at the same time over 3 minutes. Inpatient/[place] specific directions only. Mix and deliver per institution/fac ility policy. 1 each 07/28/2024 5 oxyCODONE (Roxicodone) 10 MG immediate release tablet Take 1-2 tablets by mouth every 4 (four) hours as needed for severe pain (g89.3). 180 tablet 07/06/2024 polyethylene glycol (Miralax) 17 GM/SCOOP powder MIX 17 GRAMS OF POWDER IN 8 OUNCES OF LIQUID AND DRINK ONCE DAILY 510 g 06/21/2024 5 documented as of this encounter Miscellaneous Notes * Progress Notes - Mary Kate Hodges RN - 07/28/2024 1:12 PM EDT Case Management Discharge Note Henny Daniels 49 y.o. male CSN: [id number] Admission: 07/22/2024 12:28 PM Primary Problem: Acute osteomyelitis of left clavicle (CMS/HCC) Primary Temperature Inspector: Primary Caregiver: Self Assistance Available at Discharge: Current Outpatient/Agency/Support Group: homecare agency Availability of Care Givers (#Hours): No assistance available Housing Circumstances-Z Codes: Housing Circumstances (select all that apply): Low Income (101-300% Federal Poverty Guidlines) - Z596 Patient Referred to Financial or Community Resources: Community Resources: Transportation/Parking Discharge Facility/Level of Care Needs: Discharge Facility/Level of Care Needs: 2-Qdyl-[facility]epft[facility] [place]'s Choice of Community Agency(s): Patient's Choice of Community Agency(s): [facility] Patient/Family Anticipated Services at Transition: Patient/Family Anticipated Services at Transition: home health care DME/Equipment Needed after Discharge: Equipment Needed After Discharge: none Readmission Within the Last 30 Days: Readmission Within the Last 30 Days: no previous admission in last 30 days Medicare Documentation: Follow-up: [facility] [address] [place] [address] Follow up Home IV abx [facility] [address] [facility] [address] Follow up Discharge Transportation: Transportation Anticipated: health plan transportation Transportation Home at Discharge: Public Transportation Has discharge transport been arranged?: Yes What day is the transport expected?: 07/28/24 Follow Up Transport: Transportation Needed to Follow up Appoinments: Public Transportation Additional Comments: Patient to be discharged home today. He has wound vac in place. He will be receiving IV abx at home. [facility] to provide services. Patient is current with [facility]. Cm sent updated notes and orders. Patient states he receives food stamps and attempting to obtain disability. He uses [employer] transportation. Patient meets the 300% FPG for assistance. Patient will return home via Uber. Mary Kate Hodges RN * Discharge Summary - Brad Kerr MD - 07/28/2024 11:46 AM EDT Hospitalization Admit Date/Time: 07/22/2024 12:28 PM Admitting Attending: Susannah Arevalo Discharge Date: 07/28/2024 Discharge Attending Physician: Jennifer Vallejo MD PCP name and Address: Carson Ibrahim MD [address] [facility] [address] / [place] [address] Referring provider name and address: Viky Menon MD [address] [facility] [address] [place] [address] Chief Concern, Brief History of Present Illness, and Hospital Course Henny Daniels Jr. is a 49 y.o. 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 Had clinic visit with oncology on 07/22 for follow up of squamous cell cancer of lip s/p and had staging CT scan which showed osteomyelitis vs septic arthritis of L sternoclavicular joint. He was sent as direct admission for further management. Osteomyelitis and septic arthritis of L sternoclavicular joint -Patient reports 3 weeks of worsening L arm pain with movement he attributed to post-operative painafter head and neck surgery -Recently completed 14 days of IV vancomycin for uncomplicated MRSA bacteremia found at OSH. -Found to have L clavicle and manubrium osteomyelitis vs. septic arthritis on CT scan for cancer staging -Blood cultures drawn in clinic on day of admission -Echo performed on 07/26 showed no signs of valvular vegetations but did show LVEF 25-40% -ID consulted for appropriate abx and treatment duration -IR consulted for CT guided joint aspiration, no organism growth on aspirate. Switched to daptomycin on 07/27 - PICC line placed -Continue daptomycin IV until 09/02. Weekly labs ordered on daptomycin -Follow up in ID clinic Poor wound healing -S/p debridement of fibular wound graft site. Underwent debridement w/ Dr. Eldridge 02/16/2024 -Has wound vac, last changed 2 weeks ago at [facility] -Had revision and flap formation scheduled with Dr. Eldridge on 07/27 -ENT consulted. Wound vac changed. They deferred surgical management of chronic wound until acute infection is resolved Plan: -Weekly wound vac change while inpatient -Outpatient follow up with ENT in 09/2024 HFrEF (EF 25-40%) -Echo 07/26 showed reduced LVEF 25-40% -NO previous diagnosis of HFrEF -Patient denies any symptoms including dyspnea on exertion, edema. -Was previously on ACEi but did not tolerate d/t hypotension -Initiated metoprolol tartrate and tolerated. Will DC on metoprolol succinate 25. 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 Showed aspiration of thin liquids. Patient also reports difficulty eating solid foods -Patient has loss of muscle mass, bitemporal wasting, bmi <19 indicating malnutrition, moderate -Had PEG tube but it was dislodged about 2 weeks ago -Reports he has been drinking Ensure at home and soft foods since PEG tube fell out -Initially NPO pending surgical recs -BUSINESS IMPROVEMENT MANAGER consulted, recommended MBS -Nutrition consulted per oncology recs. Decided not to do MBS as patient had one 06/2024 which showed aspiration but patient declined soft diet. 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 Eldridge. Pathology showed metastatic carcinoma w/ extranodal extension, lymphovascular invasion, perineural invasion -Chemotherapy delayed due to R leg wound. Underwent cisplatin and radiation from 03/31/2024-05/17/24 -Per oncology and radiology interpretation of staging CT scan 07/22, there is not concern for recurrence of cancer. Plan: -Continue to follow with oncology outpatient Surgeries and Procedures Procedures performed in this encounter Procedures Wound Vac Placement Proximal;Right Pretibial Medication List .. acetaminophen 500 MG tablet Commonly known as: Tylenol Take 2 tablets by mouth every 6 hours as needed for pain. cyclobenzaprine 5 MG tablet Commonly known as: Flexeril Take 1 tablet by mouth 3 times a day as needed for muscle spasms. DAPTOmycin injection Commonly known as: Cubicin Infuse 18 mL into a venous catheter 1 (one) time each day at the same time over 3 minutes. Inpatient/[place] specific directions only. Mix and deliver per institution/facility policy. famotidine 20 MG tablet Commonly known as: Pepcid Take 1 tablet by mouth at night as needed for heartburn. metoprolol succinate XL 25 MG 24 hr tablet Commonly known as: Toprol-XL Take 1 tablet by mouth daily. Do not crush or chew. multivitamin tablet Take 1 tablet by mouth daily. ondansetron ODT 8 MG disintegrating tablet Commonly known as: Zofran-ODT Take 1 tablet (8 mg) by mouth every 8 hours as needed for nausea or vomiting. oxyCODONE 10 MG immediate release tablet Commonly known as: Roxicodone Take 1-2 tablets by mouth every 4 (four) hours as needed for severe pain (g89.3). polyethylene glycol 17 GM/SCOOP powder Commonly known as: Miralax MIX 17 GRAMS OF POWDER IN 8 OUNCES OF LIQUID AND DRINK ONCE DAILY traZODone 100 MG tablet Commonly known as: Desyrel Take 1 tablet by mouth nightly. . methocarbamol 500 MG tablet Commonly known as: Robaxin TAKE 2 TABLETS BY MOUTH EVERY 8 HOURS NEEDED FOR MUSCLE PAIN AND SPASM Where to Get Your Medications These medications were sent to [facility] [place] [address] [facility] [address] [facility] [address] DAPTOmycin injection These medications were sent to [facility] [address] [place] [id number] metoprolol succinate XL 25 MG 24 hr tablet Discharge Diagnosis Medical Problems Active and Resolved Hospital Problems Hospital * (Principal) Acute osteomyelitis of left clavicle (CMS/HCC) Post Discharge Instructions Continue IV antibiotics through 09/02/2024. You will need to get labs every Friday while on IV antibiotics. You will be scheduled for a follow up with the Infectious Disease clinic. We have also referred you to the Cardiology clinic to follow up on the new findings seen on your echocardiogram. Outpatient Follow-Up Future Appointments Date Time Provider Department Center [facility] [place] 08/10/2024 2:30 PM [facility] [place] 08/12/2024 8:30 AM Brittney Johnson MD IDBCCLX [place] 08/12/2024 10:00 AM Imer Sevilla MD [place] [facility] [place] 09/02/2024 9:30 AM Brittney Johnson MD IDBCCLX [place] 09/08/2024 10:40 AM Matias Eldridge MD [facility] [place] Test Results Pending At Discharge Pending Labs Order Current Status Body Fluid Culture and Gram Stain Preliminary result Fungal Culture, Sterile Body Fluid (NOT CSF) and JESUS Preliminary result Pertinent Physical Exam At Time of Discharge Physical Exam Constitutional: General: He is not in acute distress. Appearance: Normal appearance. HENT: Head: Normocephalic and atraumatic. Eyes: Conjunctiva/sclera: Conjunctivae normal. Pulmonary: Effort: Pulmonary effort is normal. Comments: Breathing comfortably on room air Musculoskeletal: General: Normal range of motion. Cervical back: Normal range of motion. Skin: General: Skin is warm and dry. Neurological: General: No focal deficit present. Mental Status: He is alert and oriented to person, place, and time. Psychiatric: Mood and Affect: Mood normal. Behavior: Behavior normal. Discharge Disposition/Condition Disposition: Home with Home Health Condition: Stable (s/sx potential problems absent or manageable) Cosigned by Jennifer Vallejo MD at 07/28/2024 7:15 PM EDT Associated attestation - Jennifer Vallejo MD - 07/28/2024 7:15 PM EDT I saw and evaluated the patient with the resident/fellow. I discussed the case with the resident/fellow and agree with the findings and plan as documented. I spent >30 minutes of patient care and instruction time in preparation for this discharge. * Procedures - Garcia Lan RN - 07/28/2024 10:31 AM EDTAssociated Order(s): Insert PICC line Insert PICC line Date/Time: 07/28/2024 10:31 AM Performed by: Garcia Lan RN Authorized by: Jennifer Vallejo MD [place] Protocol: Written consent obtained?: Yes Risks and benefits: Risks, benefits and alternatives were discussed Consent given by: Patient Patient states understanding of procedure being performed: Yes Patient's understanding of procedure matches consent: Yes Procedure consent matches procedure scheduled: Yes Relevant documents present and verified: Yes Test results available and properly labeled: Yes Site marked: Yes Imaging studies available: Yes Patient identity confirmed: Verbally with patient Time out: Immediately prior to the procedure a time out was called Indications: Vascular access Local anesthetic: Lidocaine 1% without epinephrine Sedation: Patient sedated: No Preparation: Skin prepped with 2% chlorhexidine Skin prep agent dried: Skin prep agent completely dried prior to procedure Sterile barriers: All five maximal sterile barriers used - gloves, gown, cap, mask and large sterile sheet Hand hygiene: Hand hygiene performed prior to catheter insertion Orientation: Right Location (Adult): Basilic vein Site selection rationale: Previous PICC on left arm. Removed about 2 weeks ago. Left clavicle infection Patient position: Supine Catheter Lot #: [id number] Catheter manager pricing: HiConversion Catheter placed: Single lumen Catheter size: 4 Fr Catheter trimmed length: 44 Catheter threaded length: 43 Vein placed in: SVC Catheter cm indwellin Catheter cm outside: 1 Placement confirmed by: Kaitlin 3CG technology Pre-procedure: Landmarks identified Ultrasound guidance: Yes Sterile ultrasound techniques: Sterile gel and sterile probe covers were used Number of attempts: 1 Post-procedure: Adhesive securement device and sterile access caps placed on each lumen Dressing applied: CHG tegaderm Assessment: Blood return through all ports and free fluid flow Patient tolerated the procedure well with no immediate complications.: Yes PICC kit educational material was given to the patient.: Yes Comments: All images downloaded to and verified in PACS. Limb alert bracelet applied to right wrist. * Consults - Jodi Lainez RD - 07/28/2024 9:24 AM EDT Adult Nutrition Evaluation Note Henny Daniels Jr. 49 y.o. male CSN: [id number] Room/Bed 208/208D Nutrition evaluation type: follow-up Reason for evaluation: Hospital course: 49 y.o. male presents with worsening left clavicular pain, osteomyelitis, and slowly healing right leg wound. BUSINESS IMPROVEMENT MANAGER has signed off, as pt not agreeable to any diet modifications despite aspiration concerns with thin liquids. 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 Discussed wanting to stay on Regular diet, but difficulty eating meat- discussed adding gravy to all meats to prevent dryness. Did have boost pile at bedside, drinking occasionally whenthey are cold. Vitals and Basic Assessment: BP: (!) 139/92 Temp: 36.3 ??C (97.4 ??F) Oxygen Therapy: None (Room air) Justo Coma Scale Score: 15 Sumanth Scale Score: 20 Tone/Cubbin Pressure Risk Score: 43 Most Recent BM Date: 07/26/24 Allergies: NKFA Medications: Meds were reviewed: Yes Labs: Lab Results Component Value Date GLUCOSE 89 07/28/2024 CALCIUM 9.7 07/28/2024 NA 137 07/28/2024 K 3.8 07/28/2024 CO2 26 07/28/2024 CL 102 07/28/2024 BUN 9 07/28/2024 CREATININE 0.71 07/28/2024 PHOS 1.8 (L) 02/23/2024 MG 1.8 (L) 05/13/2024 HGBA1C 5.3 07/22/2024 POCT Glu: 101, 133, 105, 94, 76, 153 Anthropometrics: Height: 177.8 cm (5' 10 ) Weight: 90.3 kg (199 lb) BMI (Calculated): 28.55 Weight Evaluation: Overweight (BMI 25-29.9) Newton Body Weight (kg): 75.5 Percent Newton Body Weight: 120 Wt Readings from Last 10 Encounters: 07/22/24 90.3 kg (199 lb) 07/22/24 90.5 kg (199 lb 8.3 oz) 07/14/24 95.4 kg (210 lb 5.1 oz) 06/17/24 98.5 kg (217 lb 2.5 oz) 06/10/24 100 kg (221 lb 5.5 oz) 06/10/24 101 kg (222 lb 3.6 oz) 05/17/24 101 kg (223 lb 12.3 oz) 05/13/24 104 kg (229 lb 0.9 oz) 05/13/24 103 kg (227 lb 15.3 oz) 05/07/24 105 kg (230 lb 9.6 oz) 11/20/23 141 kg (311 lb 1.1 oz) EMR reflects 36% wt loss in the past 1 year. Estimated Needs: Current Nutrition Intake: Diet Supplements: Boost Glucose Control Diet Order: Adult Diet Diet Texture: Soft and Bite Sized 6 Adult Carbohydrate Restriction: Consistent CHO 2 ([id number] Brett, 80 g/meal) Percent Meals Eaten (%): avg 50% of meals Diet Experience and Nutrition History: Diet Education Provided: Will monitor Pertinent home medications: Miralax Alevism needs: Nutrition Focused Physical Exam: Physical exam performed on (date): 07/23/2024 Temples (muscles): Mild Clavicle (muscle): None Shoulder (muscle): Mild Interosseous (muscle): Mild Thigh (muscle): Moderate Calf (muscle): Mild Orbital (fat): Mild Triceps (fat): Mild Weight Loss: 35% wt loss in 1 year Assessment of Malnutrition: Malnutrition Identified: Yes Meets Criteria For: Moderate malnutrition In Context Of: Chronic illness/ injury Based On: Severe weight loss, Mild muscle mass loss Present on Admission: Yes Nutrition Problem: Increased nutrient needs protein, calories related to acute osteomyelitis as evidenced by increasedmetabolic demands of wound healing. Status of Nutrition Diagnosis: Ongoing Nutrition Interventions and Recommendations: Continue Regular diet with no modifications per pt Continue Boost Glucose Control BID Recommend obtaining weight weekly Please document meal intake in flowsheet Nutrition Monitoring and Goals: - Will monitor PO intake/EN infusion, weight, skin, labs, nutrition status - Pt will consume >75% of meal intake - Pt will maintain body weight throughout hospital admission Acuity Level: [address] [1] Past Medical History: Diagnosis Date Blood infection hospitalized from 07/01/24 to 07/05/24, UTI, last IV antibiotic 07/15/24, PO antbiotics Diabetes (CMS/HCC) High blood pressure Lip cancer Morbid obesity (CMS/HCC) 01/07/2024 PONV (postoperative nausea and vomiting) Type 2 diabetes mellitus 01/07/2024 UTI (urinary tract infection) 01/07/2024 [2] Past Surgical History: Procedure Laterality Date HERNIA REPAIR 1999 umbilical KIDNEY STONE SURGERY ORAL SURGERY Left 01/06/2024 left composite resection of L FOM, left 1A, left 1B OTHER SURGICAL HISTORY 2019 lip surgery SALIVARY GLAND SURGERY 2019 * Care Plan - Corie Andersen RN - 07/27/2024 9:43 PM EDT Problem: Adult Inpatient Plan of Care Goal: Plan of Care Review Outcome: Ongoing, Progressing Flowsheets (Taken 07/26/20242013) Progress: no change Plan of Care Reviewed With: patient Goal: Patient-Specific Goal (Individualized) Outcome: Ongoing, Progressing Goal: Absence of Hospital-Acquired Illness or Injury Outcome: Ongoing, Progressing Goal: Optimal Comfort and Wellbeing Outcome: Ongoing, Progressing Goal: Readiness for Transition of Care Outcome: Ongoing, Progressing Problem: Infection Goal: Absence of Infection Signs and Symptoms Outcome: Ongoing, Progressing * Progress Notes - Fatoumata Wayne RN - 07/27/2024 5:32 PM EDT OPAT Enrollment Progress Note Patient: Henny Daniels Jr. : 1975 Referring ID Team: Transplant ID Indications for Use: Osteoarticular Infection, non-prosthetic (Additional Indications for Use comments may be attached to the order. To view those comments, please review the order in Chart Review) Evaluation Start Date: 07/27/24 Evaluation Status: Complete Enrollment Status: Standard OPAT Appropriate Standard Enrollment Plan: Home Infusion Number of IV Medications: 1 Delivery Method: IV Push OPAT Nurse Navigator Eligibility and Assessment Note(Standard OPAT) Patient has met all established OPAT criteria to safely and successfully administer IV antibiotics at home via a central venous access device. It is the opinion of the ID team that the patient can bedischarged home to complete their IV antibiotic course. Patient Name: Henny Daniels Jr. Primary ID Diagnosis: Osteoarticular Infection, non-prosthetic Referring ID Provider: Brittney Johnson MD IV Antimicrobial Therapy Plan: See OPAT MD intake note for final recommendations IV Access:Single Lumen PICC Pending Patient Specific Outpatient Circumstances: [address] [facility] [id number] Family Support: Extended Emergency Contact Information Primary Emergency Contact: Ed Daniels Mobile Relation: Son Preferred language: [place] Linen Room Attendant needed? No Contact information: Henny Daniels Jr. [phone] (home) Outpatient services (including home infusion, home health, facility referral: See recent case management/social work note for finalization of services ID follow up appointment: Future Appointments Date Time Provider Department Center 08/10/2024 1:30 PM [facility] 08/10/2024 2:30 PM [facility] PET [facility] 08/12/2024 8:30 AM Brittney Johnson MD [facility] [place] 08/12/2024 10:00 AM Imer Sevilla MD [facility] 09/02/2024 9:30 AM Brittney Johnson MD [facility] [place] 09/08/2024 10:40 AM [facility] Patient Assessment I spoke with patient at bedside and completed an initial assessment with regards to OPAT eligibility. I explained the OPAT program and its service (IV antimicrobial management, lab monitoring, followup appointments reminders, etc.) to the patient and son. Patient states Ed Daniels (Son)[phone] can help with IV antimicrobial administration at home. I have reached out to the patients' recognized support and son confirmed he will be able to assist this patient in IV antimicrobial administration when the patient is discharged home. Patient is able to self-administer. Transportation was also identified and confirmed with help of [facility] transportation . After this discussion, the patient appeared to be a good candidate for the Standard OPAT program. Patient was re-educated about how PICC line is placed, s/s of infection at the PICC line insertion site, how to keep the PICC line dressing dry while bathing, weight lifting limitations of 10 pounds or more, avoiding intense physical work and any repetitive motion within arm the PICC line was placed and how the PICC line dressing must be changed each week, weekly lab monitoring, and OPAT availability. Patient was given information about IV antimicrobials including possible administration options (continuous infusion, IV push, number of infusions, [place] Method and IV Pump ) and estimated duration of therapy. Treatment of medications and delivery method may change based on culture results. Patient verbalized understanding and provide teachback on assessment discussion stated above. Patient was provided the PICC agreement and signed prior to ending the discussion by the nurse navigator.Patient agreed for the OPAT team to leave messages on their cell phone. OPAT program packet including contacts were left with patient in the event they would have questions or concerns. The OPAT nurse navigator will continue to follow the patient peripherally for any changes in the discharge plan. Please direct questions to myself, another member of the OPAT team, or the ID consulting provider via secure chat or staff messaging in [employer]. Thank you for allowing us to participate in this patient's care. This note is not the final recommendations from the infectious diseases team, please refer to the most recent note for this information. *If patient is discharged Home, [facility] needs to Educate patient/ spouse/family/friend/significant other, prior to discharge.* Fatoumata COLBY, RN 07/27/2024 * Clinician Note - Delfina Lobato - 07/27/2024 10:49 AM EDT Speech Language Pathology Spoke w/ pt re: MBS. Pt completed MBS 06/10/24 w/ aspiration of thin liquids and pt elected to continue thin liquids at that time despite aspiration and possible risks. Pt noted choice to again continue thin liquid despite potential findings from a repeat MBS that could be done today. He has been consuming thin liquids since MBS 06/10 w/ WNL WBC, no O2 needs, and CT chest 07/21 w/ no acute pulmonary process. Will cancel MBS and sign off at this time. Please re-consult pending any change or concern. * Care Plan - Tamy Hoff RN - 07/27/2024 9:26 AM EDT Problem: Adult Inpatient Plan of Care Goal: Plan of Care Review Outcome: Ongoing, Progressing Problem: Adult Inpatient Plan of Care Goal: Absence of Hospital-Acquired Illness or Injury Outcome: Ongoing, Progressing Problem: Adult Inpatient Plan of Care Goal: Optimal Comfort and Wellbeing Outcome: Ongoing, Progressing * Significant Event - Brittney Johnson MD - 07/27/2024 8:46 AM EDT ID OPAT INTAKE NOTE: Transitions of Care Summary OPAT Category: Standard OPAT, pending nurse navigator evaluation If patient enrolled into Modified OPAT Program list reason (ONLY if no Nurse Navigator assessment required): Not applicable Patient lives out of state: No If yes, is ID provider able to provide orders in destination state: No Referring ID Physician (Fellow/Attending): Brittney Johnson MD Diagnosis: Osteoarticular Infection, non-prosthetic IV Access: Single Lumen PICC Antimicrobial Regimen: Antimicrobials (including doses): IV daptomycin 10mg/kg every 24 hours (950mg) Start date: 07/22/24 Projected End Date: 09/02/24 Transition to oral therapy: No Future Imaging: No; Lab Monitoring (weekly, preferably on Mondays unless otherwise specified): CBC w/ differential *CRP for patients with bone/joint infections and endocarditis or endovascular infections Antimicrobial specific labs: Daptomycin: BUN, SrCr, LFTs, and CPK Please fax all labs to: ID OPAT Team Attn: Brittney Johnson MD (insert ID provider) Fax #: [phone] Appointments: (Brittney Johnson MD - 08/12/24 and 09/02/24) at: [facility]: [address] [place] [address] (Select Option 3 for IV Antibiotic / PICC line related issues) For questions regarding OPAT prior to discharge, reach out to the OPAT team via Play[employer] Secure Chat (Group: OPAT Referral Team). For all questions regarding OPAT after discharge should be directed to the OPAT Team at (Select Option 3 for IV Antibiotics/PICC Issues) between 8am-5pm. After 5 pm, or during weekends/[place] holidays, please call the paging flaring machine operator at to reach the on-call ID fellow. PLEASE NOTIFY THE ID CONSULTING SERVICE OF ANY QUESTIONS REGARDING THESE RECOMMENDATIONS OR WITH ANY ANTIMICROBIAL CHANGES THAT OCCUR AFTER THE DATE/TIME OF THIS OPAT INTAKE NOTE. * Progress Notes - Brittney Johnson MD - 07/27/2024 8:38 AM EDT Images from the original note were not included. Infectious Diseases Follow-up Note Chief Complaint: Left clavicle pain Subjective/IE: Pt notes clavicular pain is stable but persistent. Tolerating antibiotics well. TTE without concerning findings. Planned for OPAT evaluation today Abx: Vancomycin 07/22-date Completed 14 day course of IV therapy (? Vancomycin) 07/01-07/15/24 MEDICATIONS: Current Medications[1] Visit Vitals BP (!) 145/78 Pulse 75 Temp 36.4 ??C (97.6 ??F) Resp 18 Ht 1.778 m (5' 10 ) Wt 90.3 kg (199 lb) SpO2 98% BMI 28.55 kg/m?? Smoking Status Never BSA 2.11 m?? EXAM: Physical Exam Vitals and nursing note reviewed. Constitutional: General: He is not in acute distress. Appearance: Normal appearance. He is not ill-appearing. HENT: Head: Normocephalic and atraumatic. Nose: Nose normal. Eyes: General: No scleral icterus. Right eye: No discharge. Left eye: No discharge. Conjunctiva/sclera: Conjunctivae normal. Pulmonary: Effort: Pulmonary effort is normal. No respiratory distress. Musculoskeletal: General: Normal range of motion. Comments: Dressing over clavicular aspiration site Skin: General: Skin is warm and dry. Neurological: Mental Status: He is alert. Mental status is at baseline. Psychiatric: Mood and Affect: Mood normal. Behavior: Behavior normal. Thought Content: Thought content normal. Judgment: Judgment normal. LABS Labs in last 18 hours CBC WBC ?? Hb ?? Plt ?? Hct ?? ANC ?? INR ??, PTT ??, Anti-Xa ?? BMP Na ?? Cl ?? BUN ?? Glu ?? K ?? Co2 ?? Cr ?? Ca ?? iCa ?? Mg ??, Phos ?? Lactate ?? LFT AST ?? AlkPhos ?? T Prot ?? ALK ?? Bili ?? Alb ?? D.Bili ?? MICRO Antimicrobials Glycopeptides Disp Start End Vancomycin HCl in NaCl (Vancocin) IVPB 1,000 mg -- 07/24/2024 -- 1,000 mg, Intravenous, Every 12 hours @ 250 mL/hr IMAGING: Reviewed 07/21 CT Chest with IV contrast IMPRESSION: No acute pulmonary process. No new focal consolidation Interval development of asymmetric soft tissue thickening and inflammation adjacent to the left sternoclavicular joint along with new small lytic changes in the medial head of the left clavicle and left side of the manubrium. The constellation of findings concerning for soft tissue infection/osteomyelitis with septic arthritis. Clinical correlation and joint aspiration is recommended. ASSESSMENT: Henny Daniels Jr. is a 49 y.o. 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 Patient recently admitted at [facility] from 07/01 -> 07/08 for MRSA bacteremia, where he notes left clavicle/shoulder pain first started. Patient presented to his appointment with Oncology on 07/22; imaging showed asymmetric soft tissue thickening and inflammation adjacent to the left sternoclavicular joint along with new small lytic changes in the medial head of the left clavicle and left side of the manubrium. Patient was admitted for further management of left SCJ septic arthritis and adjacent osteomyelitis. Underwent IR-guided aspiration 07/26, cultures NGTD. Etiology of current osteoarticular infection likely from seeding duringrecent MRSA bacteremia Problem List - Left supraclavicular joint septic arthritis, adjacent osteomyelitis - Recent MRSA bloodstream infection - History of neck SCC Recommendations: - Can transition IV Vancomycin to IV daptomycin 10mg/kg every 24 hours (susceptibilities confirmed from OSH; will ask to have copy uploaded for our records) - Noted admission blood cultures are NGTD - TTE without evidence of vegetations - Plan for a 6-week duration of therapy given findings of osteomyelitis adjacent to the supraclavicular joint septic arthritis. Planned end-date is 09/02/24 - OPAT enrollment orders placed. Clinic follow-ups scheduled - Can plan for PICC placement today if admission blood cultures remain negative We will sign off at this time Brittney Johnson MD Pager [phone] [facility] attestation - Today, I am treating the patient for septic arthritis/osteomyelitis which can cause sepsis in theshort-term future in the absence of appropriate treatment, as described in the note. - Discussed management of septic arthritis/osteomyelitis with primary team and consulting services. - Discussed test interpretation of imaging, culture data with primary team - Reviewed notes by primary team and consulting services to determine appropriate plan of care as in the note. - Estimated Creatinine Clearance: 125 mL/min (A) (by C-G formula based on SCr of 0.6 mg/dL (L)).reviewed; antibiotics recommended above are dosed accordingly. - The patient is being intensively monitored for antimicrobial toxicity from vancomycin with the following tests: CBC, CMP. The following complex inpatient infectious disease services were performed today: Complex antimicrobial therapy counseling and treatment [1] Current Facility-Administered Medications: acetaminophen (Tylenol) tablet 650 mg, 650 mg, Oral, q6h [facility], Cassie Luevano MD, 650 mg at 07/27/24 0531 cyclobenzaprine (Flexeril) tablet 5 mg, 5 mg, Oral, TID PRN, Clemente Sears MD, 5 mg at 07/26/24 210 enoxaparin (Lovenox) syringe 40 mg, 40 mg, Subcutaneous, Daily, Cassie Luevano MD, 40 mg at 07/27/24 0819 famotidine (Pepcid) tablet 20 mg, 20 mg, Oral, Nightly PRN, Clemente Sears MD ondansetron ODT (Zofran-ODT) disintegrating tablet 4 mg, 4 mg, Oral, q6h PRN OR ondansetron (Zofran) injection 4 mg, 4 mg, Intravenous, q6h PRN, Cassie Luevano MD oxyCODONE (Roxicodone) immediate release tablet 20 mg, 20 mg, Oral, q4h PRN, Clemente Sears MD,20 mg at 07/27/24 0819 polyethylene glycol (Miralax) packet 17 g, 17 g, Oral, Daily, Cassie Luevano MD, 17 g at 0 Insert peripheral IV, , , Once AND Saline lock IV, , , Once AND sodium chloride 0.9 % flush10 mL, 10 mL, Intravenous, q12h, 10 mL at 07/27/24 0820 AND sodium chloride 0.9 % flush 10 mL, 10 mL, Intravenous, PRN, Cassie Luevano MD traZODone (Desyrel) tablet 100 mg, 100 mg, Oral, Nightly, Zacarias Dietrich MD, 100 mg at 07/26/247 Vancomycin HCl in NaCl (Vancocin) IVPB 1,000 mg, 1,000 mg, Intravenous, q12h, Susannah Arevalo MD, 1,000 mg at 07/27/24 0419 * Progress Notes - Cassie Luevano MD - 07/27/2024 7:59 AM EDT Subjective Patient reports feeling ok this morning. Has some pain at site of shoulder aspiration but generallycontrolled with PRN oxycodone. Would like to switch to regular diet as he does not like the soft diet food. He is curious about when he will be able to leave the hospital. No other acute concerns Objective Last Recorded Vitals Blood pressure (!) 145/78, pulse 75, temperature 36.4 ??C (97.6 ??F), resp. rate 18, height 1.778 m(5' 10 ), weight 90.3 kg (199 lb), SpO2 98%. Physical Exam Vitals reviewed. Constitutional: General: He is not in acute distress. Appearance: He is not ill-appearing or diaphoretic. HENT: Head: Comments: L lower lip s/p surgical resection. 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 Eyes: General: No scleral icterus. Conjunctiva/sclera: Conjunctivae normal. Cardiovascular: Comments: Bandage on aspiration site is clean and dry Pulmonary: Effort: Pulmonary effort is normal. Abdominal: General: Abdomen is flat. Palpations: Abdomen is soft. Musculoskeletal: Right lower leg: No edema. Left lower leg: No edema. Comments: No erythema, warmth, or fluctuance to L sternoclavicular joint Skin: General: Skin is warm and dry. Comments: RLE with wound vac in place Neurological: General: No focal deficit present. Mental Status: He is alert and oriented to person, place, and time. Echo 07/26: Left Ventricle The left ventricle is normal size. There is normal left ventricular myocardial thickness and mass. No left ventricular mass or thrombus is seen. The LVEF is variable due to arrhythmia but is visually estimated at 25 - 40%. The diastolic function is abnormal but cannot be graded. The septal motion is most consistent with a conduction abnormality. Right Ventricle The right ventricle is normal in size. The right ventricular systolic function is normal. The spectral Doppler envelope of TR is not adequate for calculating the right ventricular systolic pressure (RVSP). Based upon other 2D and Doppler features, the RVSP is probably normal or at most mildly elevated. Left Atrium The left atrial size is normal with an indexed volume of 16-34 mL/m2. The interatrial septum is intact with no evidence for an atrial septal defect. Right Atrium The right atrial size is normal. Aortic Valve The aortic valve appears to be trileaflet. There is calcification of the aortic valve leaflets. There is no aortic valve vegetation. There is no valvular regurgitation. There is no hemodynamically significant valvular aortic stenosis. Mitral Valve The mitral valve leaflets are normal in appearance with no evidence of mitral valve prolapse. There is no mitral valve vegetation. There is mild mitral regurgitation. There is no mitral stenosis. Tricuspid Valve The tricuspid valve is normal in appearance. There is no tricuspid valve vegetation. There is trace tricuspid regurgitation. There is no tricuspid stenosis. Pulmonic Valve The pulmonic valve is grossly normal. There is no pulmonic valve vegetation. There is trace pulmonic regurgitation. There is no pulmonic stenosis. Great Vessels The aortic root is normal in size. The main pulmonary artery is normal in size. IVC/SVC Based on the IVC size and respiratory variation, the estimated right atrial pressure is 3mmHg. Pericardium No pericardial effusion. Assessment/Plan Principal Problem: Acute osteomyelitis of left clavicle (CMS/HCC) Henny Daniels Jr. is a 49 y.o. 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 Septic arthritis and osteomyelitis of L sternoclavicular joint - Recent admission at OSH for MRSA bacteremia completed 14 day course of IV vanc. Presented to Med Onc clinic for routine follow-up. CT findings concerning for L sternoclavicular septic arthritis vs OM. - Afebrile. Hemodynamically stable. No leukocytosis. - Bcx NGTD > 48 hrs - Thoracic Surgery consulted, no plan for surgical intervention/debridement - ID consulted, appreciate recs - CT guided aspiration of L sternoclavicular joint 07/26, fluid cell diff and culture pending -Echo showed no signs of valvular vegetations concerning for endocarditis PLAN: - Continuing home oxycodone 20 mg q4 PRN + Tylenol q6 - Continue IV vanc, anticipate several weeks of IV abx - Vascular access consulted for PICC line placement given negative Bcs > 48 hours -Follow up joint aspirate cultures, ID recs for final abx plan HFrEF (EF 25-40%) -Echo 07/26 showed reduced LVEF 25-40% -NO previous diagnosis of HFrEF -Patient denies any symptoms including dyspnea on exertion, edema. -Was previously on ACEi but did not tolerate d/t hypotension Plan: -initiate Toprol 12.5 mg BID -Will consider adding additional GDMT prior to discharge -Follow up with cardiology for further evaluation/ possible cath Chronic Non-healing RLE Wound - L neck dissection with fibular free flap 12/2023 c/b RLE non-healing wound and infection s/p surgical debridement and wound vac. 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 Recurrence with mets s/p surgery, chemo, radiation. Completed chemoradiation 04/2024. Currently on active surveillance. - Opioid tolerant. Continue home opioids. - Prior PEG, removed within past 1 month. Unsure at this time if intentional or unintentional removal - Currently on PO diet. BUSINESS IMPROVEMENT MANAGER following -MBS canceled as patient had one 06/2024 which showed aspiration. Patient declined to change diet. Plan: -Monitor for signs of aspiration Chronic Medical Conditions: HTN- not currently on medication. Monitoring BP T2DM- A1c 5.3, has not required correction dose insulin this admission, will discontinue Diet: Regular VTE ppx: pLov Dispo: Awaiting final antimicrobial regimen and duration. Anticipate several weeks IV abx. Cassie Luevano, PGY1 Internal Medicine/Pediatrics Cosigned by Jennifer Vallejo MD at 07/27/2024 9:09 PM EDT Associated attestation - Jennifer Vallejo MD - 07/27/2024 9:09 PM EDT I saw and evaluated the patient. I discussed the case with the resident/fellow and agree with the findings and plan as documented. Additional documentation for billing/coding: -Switching vancomycin to daptomycin in anticipation of discharge on long-term IV antibiotics. Daptomycin will require CK monitoring * Fatoumata Ojeda RN - 07/27/2024 7:22 AM EDT Images from the original note were not included. [id number] * Kristin Degroot Xavi Fatoumata Wayne RN - 07/27/2024 7:22 AM EDT Images from the original note were not included. [id number] Frequently Asked Questions about OPAT - Outpatient Parental Antimicrobial Therapy What is OPAT? Antibiotics are used to treat infections. They are often given either as pill to take by mouth or as a fluid to inject into a vein. Injecting medicines is called IV (intravenous) therapy or parenteral therapy. When IV antibiotic therapy is given at home, it?s called OPAT (Outpatients Parental Antibiotic therapy). To qualify for OPAT, you must: (1) be ready to leave the hospital, and (2) still need antibiotics. The OPAT team will also need to make sure you?ll be safe at home. What types of long-term IV lines are there? Peripherally Inserted Central Catheter (PICC)/Midline Central Venous Catheter (CVC) Port-a-Cath (PORT) After I leave the hospital, who will give me the IV antibiotics and care for my central line? 1. Before you leave the hospital, an OPAT Nurse Navigator will assess you. Then the nurse will teach you or a caregiver how to safely give IV antibiotics and care for the line. 2. You will receive supplies from the infusion company. The company will teach you about the IV antibiotics and delivery system. 3. At least once a week, you will need labs and PICC line care (dressing change). This will be doneby a home health nurse at your house or a medical facility. The rehabilitation case coordinator/addiction social worker will setthat up based on your insurance. Your infectious disease provider will check these labs. 4. The OPAT team may call to review your lab results. It?s important to answer your phone or returnthe phone call within 24 hours. How long will my antibiotic treatment last? This will depend on your infection and your infectious disease provider. Is it important to show up for OPAT clinic follow-up appointments? Yes. It is very important. During your appointment, the infectious disease provider will go over your labs and check for responses to the antibiotics. The provider will make sure the PICC line is safe and the antibiotics are working. What if I have questions or concerns about OPAT treatment? ?? Call the OPAT team at (Select Option 3 for IV Antibiotics/PICC Issues) between 8 a.m.-5 p.m. ?? After 5 p.m. or during weekends/ holidays, call the paging flaring machine operator at . Ask forthe infectious disease fellow immigration associate. Call the clinic if you have any of these: ?? Fevers greater than 100.5??F ?? An allergic reaction, such as rash ?? Nausea, vomiting, or diarrhea ?? New or returning redness near the IV line ?? Redness, pain, swelling, or pus around the IV line * Kristin Degroot - Fatoumata Wayne RN - 07/27/2024 7:21 AM EDT Images from the original note were not included. [id number] Discharge Instructions: Caring for Your Peripherally Inserted Central Catheter (PICC) You are going home with a peripherally inserted central catheter (PICC). This small, soft tube has been placed in a vein in your arm. The tube was passed through a vein that leads to a larger vein near the heart (superior vena cava). A PICC is often used when treatment needs I.V. medicines, fluids,or nutrition for weeks or months. At home, you need to take care of your PICC to keep it working. APICC line has a high infection risk. So take extra care washing your hands and preventing the spread of germs. This sheet will help you remember what to do to care for your PICC at home. Understanding your role A nurse or other health care provider will teach you and your caregivers how to care for the PICC. Before leaving the hospital, make sure you understand what to do at home. Also ask how long you may need the PICC and when to have a follow- up visit. Write down important details about caring for your PICC, including: Follow-up visit date: PICC dressing change due date: Health care provider in charge of PICC care and their phone number: Who to contact with concerns about your PICC line and their phone number: Any other important information: Protecting the PICC If the PICC gets damaged, it won?t work right and could raise your chance of infection. Contact your care team right away if any damage occurs. To protect the PICC at home: ?? Prevent infection. Use good hand hygiene by following the guidelines on this sheet. Don?t touch the catheter or dressing unless you need to. Always clean your hands before and after you come in contact with any part of the PICC. Your caregivers, family members, and any visitors should use good hand hygiene, too. ?? Keep the PICC dry. The catheter and dressing must stay dry. Don?t take baths, go swimming, use ahot tub, or do other things that could get the PICC wet. Take a sponge bath to prevent getting yourcatheter wet, unless your health care provider tells you otherwise. Ask your provider about the best way to keep your catheter dry when bathing or showering. If the dressing does get wet, change it only if you have been shown how. Otherwise, contact your care team right away for help. ?? Don't damage the catheter. Don?t use any sharp or pointy objects around the catheter. This includes scissors, pins, knives, razors, or anything else that could cut it or put a hole in it (punctureit). Also, don?t let anything pull or rub on the catheter, such as clothing. Keep pets away from the PICC catheter. ?? Watch for signs of problems. Pay attention to how much of the catheter sticks out from your skin. If this changes at all, let your provider know. Also watch for cracks, leaks, or other damage. If the dressing becomes dirty, loose, or wet, change it (if you have been directed to). Or contact yourcare team right away. ?? Tell your care team if you vomit or have severe coughing. Although uncommon, coughing or vomiting may move your catheter from its place. If a catheter moves, it may need to be inserted again. Protecting your arm The arm with the PICC is at risk for developing blood clots (thrombosis). This is a serious problem. To help prevent it: ?? As much as possible, use the arm with the PICC in it for normal daily activities. Lack of movement can lead to blood clots. It?s important to move your arm as you normally would. Your care team may suggest light arm exercises. ?? Don't do activities or exercises that need major use of your arm, such as sports, unless your health care provider says it?s OK. ?? Don't do any activities that cause pain in your arm. Talk to your care team if you have concernsabout pain or range of motion. ?? Don?t lift anything heavier than 10 pounds with the affected arm. ?? Drink plenty of water. Staying hydrated helps keep clots from forming. Prevent infection with good hand hygiene A PICC can let germs into your body. This can lead to serious and sometimes deadly infections. To prevent infection, you, your caregivers, and others around you must practice good hand hygiene. This means washing your hands well with soap and water and cleaning them with an alcohol-based hand gel as directed. Never touch the PICC or dressing without first using one of these methods. To wash your hands with soap and water: ?? Wet your hands with clean water. (Don't use hot water. It can irritate your skin when you wash your hands often.) ?? Apply enough soap to cover the whole surface of your hands, including your fingers. ?? Rub your hands together vigorously (using a lot of energy) for at least 20 seconds. Make sure torub the front and back of each hand up to the wrist. Also rub your fingers and fingernails, betweenthe fingers, and each thumb. ?? Rinse your hands with clean water. ?? Dry your hands completely with a new, unused paper towel. Don?t use a cloth towel or other reusable towel. These can harbor germs. ?? Use the paper towel to turn off the faucet. Then throw it away. If you are in a bathroom, also use a paper towel to open the door instead of touching the handle. When you don?t have access to soap and water: Use an alcohol-based hand gel to clean your hands. The gel should have at least 60% alcohol. Let the alcohol fully dry. Follow the directions on the package. Your care team can answer any questions you have about when to use hand gel, or when it?s better to wash with soap and water. When to contact your doctor Contact your health care provider right away if you have: ?? Pain or burning in your shoulder, chest, back, arm, or leg. ?? A fever of 100.4??F ( 38??C) or higher, or as directed by your provider. ?? Chills. ?? Signs of infection at the catheter site (pain, redness, drainage, burning, or stinging). ?? Coughing, wheezing, or shortness of breath. ?? A racing or irregular heartbeat. ?? Muscle stiffness or trouble moving. ?? Tightness in your arm, above the catheter site. ?? Gurgling noises coming from the catheter. ?? A catheter that falls out, breaks, cracks, leaks, or has other damage. Last Reviewed Date: 2024 00:00:00 ?? [id number] [employer]. All rights reserved. This information is not intended as a substitute for professional medical care. Always follow your healthcare professional's instructions. * Kristin Degroot - Fatoumata Wayne RN - 07/27/2024 7:21 AM EDT Images from the original note were not included. 13224 Central Line Infections You need a central line as part of your treatment. It?s also called a central venous access device (CVAD) or central venous catheter (CVC). A small, soft tube called a catheter is put in a vein that leads to your heart. The central line is used instead of a standard IV (intravenous) line. It does not need to be replaced as often as a standard IV. This means less pain and fewer needlesticks duringtreatment. But central lines come with a risk of infection. This sheet tells you more about centralline infections and what hospitals are doing to prevent them. And it explains how an infection is treated if one occurs. Types of central lines With a central line, a catheter is inserted into your body through a vein that leads to the large vein near the heart (vena cava). Types of central lines and their risk of infection are listed below.Which type is best for you depends on your needs and your overall health. Your healthcare provider will talk with you which type of line you need, and why. ?? Peripherally inserted central catheter (PICC). This is placed in a large vein in the upper arm, or near the bend of the elbow. ?? Subclavian line. This is placed in a vein that runs behind the collarbone. ?? Internal jugular line. This is placed in a large vein in the neck. Infection risk is higher thanwith a PICC or subclavian line, but lower than with a femoral line. ?? Femoral line. This may be placed in a large vein in the groin. This site is generally not used because of an increased risk for infection. ?? Tunneled catheter. This is run through the soft tissue under the skin before it enters a vein. Asmall cuff helps hold the catheter in place. Both the tunnel and the cuff help lower your chances for infection. This type of catheter may be placed in any of the above locations. ?? Port. This small device is placed completely under the skin on the arm or chest. It?s connected to a catheter that is threaded into the vena cava. Types of infections A central line provides a direct path into your bloodstream. This gives germs possible access into your body. All types of central lines are associated with some risk of infection. Often, the germs that cause a central line infection come from your own skin. There are two possible types of infection: ?? Local infection. This can occur where the central line enters your body. Symptoms include redness, pain, or swelling at or near the catheter site. This is the area where the catheter enters your body. You may also have pain or tenderness along the path of the catheter, and drainage from the skinaround the catheter. ?? Systemic infection (also called bacteremia). This can occur if germs get into the bloodstream. This is very serious and can be fatal. Symptoms include sudden fever, shaking chills, a racing heartbeat, confusion, changes in behavior, and a skin rash. Risk factors for infection Anyone who has a central line can get an infection. Your risk is higher if you: ?? Are in the intensive care unit (ICU) ?? Have a weak immune system or serious illness ?? Are getting bone marrow or chemotherapy ?? Have the line in for an extended time ?? Have a central line in your neck or groin ?? Have the catheter used often to draw blood or give you medicines How central line infections are treated Treatment depends on the type of central line placed, how severe the infection is, and your overallhealth. Your healthcare provider will prescribe antibiotics to fight the infection. The line may also need to be removed. In some cases, the line may be flushed with high doses of antibiotics. This may kill the germs causing the infection, so the line doesn?t have to be removed. What hospitals do to prevent infection Hospitals have a plan to reduce central line infections. This plan includes: ?? Using good hand hygiene. Hospital staff clean their hands before and after touching the line. They wash their hands with soap and water. Or they use an alcohol-based hand tobacco cloth reclaimer containing at least 60% alcohol. ?? Using sterile practices during placement. The healthcare provider who places the line wears germ-free (sterile) clothing including a long-sleeved gown, a mask, hat, and gloves. Before the line is placed, your skin is cleaned with an antiseptic solution. During placement, you are fully covered with a large sterile sheet (a sterile drape). Only the spot where the line is being placed is exposed.After placement, the site where the line enters the body is covered with a sterile bandage (dressing). Whenever the dressing is soiled or loose, they change it right away. ?? Choosing a lower-risk vein. Whenever possible, the line is placed in a vein that's right for your treatment and has the lowest infection risk. Some hospitals use lines coated with an antimicrobialsubstance to reduce the chance of infection. An antibiotic patch may also be placed over the line. ?? Limiting how often blood is drawn from your central line. Each time your line is used, the risk for infection increases. ?? Scrubbing the cap (hub) of your catheter vigorously with an antiseptic, such as a 70% alcohol swab, before each use. ?? Checking for infection. The line is checked often for infection. It's removed as soon as you no longer need it. ?? Cleaning your body every day with a soap called chlorhexidine gluconate (CHG). This soap helps reduce the risk for infection. What you can do to prevent infection Good handwashing helps prevent central line infections. Before you get a central line, ask questions. Find out why you need the line and where it will be placed. Learn what steps the hospital is taking to reduce your infection risk. Once the line has beenplaced, you, your caregivers, and any visitors can help prevent infection by doing the following: ?? Use good hand hygiene. Wash your hands often with soap and clean, running water (warm or cold), and use alcohol-based hand tobacco cloth reclaimer with at least 60% alcohol as directed. To clean your hands well, follow the guidelines on this sheet. Visitors should wash their hands well when they arrive and when they leave. ?? Make sure healthcare staff and your visitors clean their hands. They should use soap and clean, running water or an alcohol-based hand tobacco cloth reclaimer before and after checking the line. Don?t be afraidto remind them. ?? Follow your hospital team's personal hygiene instructions. This may include bathing every day with CHG soap. ?? Talk with your healthcare team about how often your line needs to be used for drawing blood. If possible, have them draw blood from lower risk veins in your arm. ?? Keep the line dry. Follow your healthcare provider?s guidelines for bathing. If the dressing does get wet, tell your healthcare provider right away. ?? Limit touching your line. Even when your hands are clean, try not to touch the catheter or dressing. Remind visitors not to touch your line. ?? Learn the sterile dressing technique. This is important if you will be caring for the line at home. Your healthcare team will show you how to use sterile method to change your dressing. Tell your healthcare team if the dressing or area around it gets wet, dirty, or if the bandage is loose. ?? At home, follow all instructions from your healthcare team about how to care for your line and dressing. Change your dressing right away if it's loose or gets dirty. Risk for blood clot If a blood clot forms, it can block blood flow through the vein where the catheter is placed. Signsof a blood clot include pain or swelling in the neck, face, chest, or arm. If you have any of thesesymptoms, call your healthcare provider right away. You may need an ultrasound exam to locate the blood clot and receive treatment. Handwashing To protect the central line from germs, it?s very important to wash your hands often and clean themwell. You and anyone who comes in contact with you should follow these steps: ?? Wet your hands with clean, running water (cold or warm). Don't use hot water. It can cause skin irritation when you wash your hands often. ?? Apply enough soap to cover the entire surface of your hands, including your fingers. ?? Rub your hands together briskly for at least 20 seconds. Make sure to rub the front and back of each hand up to the wrist, your fingers and fingernails, between the fingers, and each thumb. ?? Rinse your hands with clean, running water. ?? Dry your hands completely with a new, unused paper towel. Don?t use a cloth towel or other reusable towel. These can harbor germs. ?? Use the paper towel to turn off the faucet, then throw it away. If you?re in a bathroom, also use a paper towel to open the door instead of touching the handle. When you can't use soap and water, alcohol-based hand sanitizers are a good choice for cleaning your hands. The tobacco cloth reclaimer should have at least 60% alcohol. Note that some germs can't be killed by alcohol. Your healthcare team can answer any questions you have about when to use a hand tobacco cloth reclaimer, or when it?s better to wash with soap and water. Follow these steps: ?? Spread the hand tobacco cloth reclaimer in the palm of one hand. (Check the package for specific guidelines.) ?? Rub your hands together briskly. Clean the backs of your hands, the palms, between your fingers,and up your wrists. ?? Rub until the tobacco cloth reclaimer is gone and your hands are completely dry. When to seek medical care Call your healthcare provider right away if you have a central line and develop any of the following: ?? Pain or burning in your shoulder, chest, back, arm, or leg ?? Fever of 100.4?? F ( 38??C) or higher, or as advised by your healthcare provider ?? Chills ?? Pain, redness, drainage, burning, or stinging at the catheter site ?? Coughing, wheezing, or shortness of breath ?? A racing or irregular heartbeat ?? Muscle stiffness or trouble moving ?? Gurgling noises coming from the catheter ?? Catheter falling out, breaking, cracking, leaking, or other damage ?? Bleeding from the catheter or where it enters the skin Last Reviewed Date: 2022 00:00:00 ?? [id number] [employer]. All rights reserved. This information is not intended as a substitute for professional medical care. Always follow your healthcare professional's instructions. * Kristin Degroot - Fatoumata Wayne RN - 07/27/2024 7:21 AM EDT Images from the original note were not included. [id number] PICC Line Care PICC stands for peripherally inserted central catheter. This is a short-term (temporary) tube that's used instead of a regular I.V. (intravenous) line. Reasons for using a PICC line A PICC line may be used because: ?? It reduces the discomfort of putting in a new I.V. every time it's needed. ?? Medicine or nutrition needs to be given over a period of weeks or even months. ?? A PICC can stay in place longer than an I.V., so it reduces needle sticks. ?? It reduces damage to small veins, where an I.V. is normally inserted. This can allow some substances that damage small veins to be infused safely and comfortably. ?? A PICC may have more than one channel, so different fluids or medicines can be given at the sametime. ?? A PICC line allows for home therapy. Your PICC will need some care to keep it clean and working. This care includes: ?? Changing the bandage (dressing). ?? Flushing the catheter with fluids. ?? Changing the cap on the end of the catheter. A nurse or other health care provider will teach you how to do each of these things. If you have any questions, contact your care team. Home care The following are general care guidelines that will help you care for your PICC line at home: ?? You can use your arm. But stay away from any activity that causes pain. ?? Don't pick at it or pull on the tubing. ?? Don?t lift anything heavier than 10 pounds with the arm on the side of the PICC line. ?? The PICC line and dressing should not get wet. When you bathe or shower, tape plastic wrap over the site to keep it dry. ?? Don't put the PICC site under water. No swimming or hot tubs. If the dressing gets wet, change it right away if you've been trained to do so. If not, contact your care team. ?? Always wash your hands with soap and clean, running water before and after touching any part of your PICC. ?? Don't allow the tubing to hang freely. Make sure to keep the tubing covered and secured to your arm to prevent the PICC line from being pulled out by accident. ?? Don?t use any sharp or pointy objects around the catheter. This includes scissors, pins, knives,and razors. The following tips will help you with dressing changes: ?? Change the dressing over the site as directed. This is usually once a week. Change it sooner if the dressing gets wet or soiled. Check the dressing daily. ?? You or a family member may be able to do the dressing change at home. Or you may be instructed to return to the office or clinic for dressing changes. ?? Sterile technique must be used for PICC dressing change. If your dressing is changed at home, besure you or your family member knows the sterile dressing technique. Contact your health care provider for instructions if you need them. Follow-up care Follow up as advised by your health care provider. When to get medical care Contact your health care provider right away if any of these occur: ?? Fever of 100.4??F (38??C) or higher, or as advised by your provider ?? Drainage from the PICC site ?? Swelling or bulging around the PICC site, or anywhere above the insertion site ?? Bleeding from the PICC site ?? Skin pulling away from the PICC site ?? Redness, warmth, or pus at the PICC site ?? Tubing breaks, splits, or leaks ?? More exposed tubing (tubing seems longer), or the tubing is pulled out completely ?? Medicine or fluids don't drain from the bag into your PICC ?? Coughing, wheezing, or shortness of breath ?? A racing or irregular heartbeat ?? Muscle stiffness or trouble moving the arm Last Reviewed Date: 2024 00:00:00 ?? [id number] [employer]. All rights reserved. This information is not intended as a substitute for professional medical care. Always follow your healthcare professional's instructions. * Kristin Degroot - Fatoumata Wayne RN - 07/27/2024 7:20 AM EDT Images from the original note were not included. 09001 Flushing Your PICC Line at Home Your peripherally inserted central catheter (PICC) line is used to deliver medicine or feedings. It?s a long, flexible tube (catheter) that goes into your vein, runs into larger veins, and ends up with the tip near where the superior vena cava enters your heart. To care for your PICC line, you willneed to flush it. This means you?ll need to clean it with a solution as directed by your health care provider. This keeps it from getting clogged or blocked. A clogged or blocked PICC line will need to be taken out and replaced. When to flush your PICC line You?ll need to flush your PICC line as often as directed by your health care provider. You may needto flush it after each use. If the PICC line is not in active use, you may need to flush it once a day. Or you may only need to flush it once a week. Talk with your provider about how often you should do this. What you?ll need ?? Flushing solution. This is the liquid that you will send through the PICC line. Your health careprovider will tell you what kind to use. In most cases, it is saline solution. This is a sterile mix of water and a tiny amount of salt. Your provider will also tell you how much to use. You may alsoneed to flush with a heparin solution after the saline. Heparin is a medicine that thins the blood.It helps prevent blood from clotting in and around the catheter. ?? A syringe. This is the device used to give an injection, or shot. A syringe is used to flush your PICC line with the solution. You will probably use prefilled syringes. ?? Alcohol wipes or rubbing alcohol and cotton balls. You?ll use these to clean some of the tools used to flush your line. This helps to prevent germs from going into your PICC line. ?? Clean medical gloves. How to flush your PICC line Repeat these steps as often as your health care provider has instructed. Skip steps 2 and 3 if you are using prefilled syringes. Step 1. Wash your hands ?? Wash your hands well with soap and clean running water for at least 20 seconds. Scrub them well,including the backs of your hands and between your fingers. ?? If you don?t have access to soap and water, use an alcohol-based hand tobacco cloth reclaimer. The gel should have at least 60% alcohol. Let the hands dry. ?? Put on clean medical gloves. ?? Only touch your PICC line with clean hands and when wearing clean gloves. This is to protect youfrom infection and to keep the line free from germs. Step 2. Fill the syringe ?? Open a new bottle of the flushing solution. If you?re using a bottle that?s already open, use the alcohol to clean the top of the bottle. ?? Remove the cap from the needle or tip of the syringe. Push the plunger of the syringe down all the way. ?? Put the needle or tip of the syringe into the flushing solution. ?? Pull the syringe plunger out. Stop when you have the right amount of flushing solution in the syringe. Your health care provider will tell you how much to use. Step 3. Remove air from the syringe ?? Hold the syringe with the tip pointing up. ?? Flick or tap the syringe with your finger. This will cause any large air bubbles to rise into the tip. ?? Slowly push on the plunger until a tiny drop of flushing solution comes out of the needle or tip. ?? Put the cap back on the needle or tip of the syringe. This will keep it germ- free until you use it. Step 4. Inject the flushing solution ?? Scrub the top and sides of the port (end of the catheter) with an alcohol wipe for 15 seconds. Scrub using a twisting motion as if juicing an orange. Let it dry completely. Prevent it from touching anything while drying. Don't blow on it. Don't reuse the alcohol wipe. Keep the port from touchinganything until you connect the syringe. If you accidentally touch the port, clean it again. ?? Open the clamp, if there is one. ?? Take the cap off the needle or tip of the syringe. Insert the needle or tip into the port. Make sure you know if your PICC has a needleless connector. Ask your health care provider if you aren't sure. ?? Push the plunger in slowly and smoothly. Don?t force the plunger. You shouldn?t feel any pressure when you push the fluid into the PICC line. If you do, stop and call your provider right away. Step 5. Finish flushing ?? If there is a clamp, close it just before the syringe is empty. This stops blood from flowing back into the catheter. ?? Remove the needle or tip of the syringe from the port. ?? Put the syringe into a special container (sharps container). When to contact your doctor Contact your health care provider right away if you have: ?? A fever of 100.4??F (38??C) or higher, or as directed by your provider. ?? Chills during or after flushing your line. ?? Swelling, redness, drainage, or pain around the PICC site. ?? Bleeding from the PICC site. ?? Tubing that leaks or is pulling out. ?? A feeling of new resistance when flushing the PICC line, or you can't flush it at all. ?? Medicine or fluids that don't drain from the bag into your PICC. Last Reviewed Date: 2024 00:00:00 ?? 4304-5200 [employer]. All rights reserved. This information is not intended as a substitute for professional medical care. Always follow your healthcare professional's instructions. * Kristin Degroot - Fatoumata Wayne RN - 07/27/2024 7:19 AM EDT Images from the original note were not included. Flushing Your Peripherally Inserted Central Catheter - Video Watch how regularly and safely cleaning your PICC line helps to keep your device working properly and prevent infection. To view the video go to this web address: https://bit.ly/[email or web address] Or, scan this QR code with your smart phone ?? [facility] * Fatoumata Ojeda RN - 07/27/2024 7:19 AM EDT Images from the original note were not included. Living With Your Peripherally Inserted Central Catheter - Video Watch these tips to keeping your long-term PICC line infection-free and in good working order, and how to recognize infections and serious health complications. To view the video go to this web address: https://bit.ly/4bphfmv Or, scan this QR code with your smart phone ?? [facility] * Fatoumata Ojeda RN - 07/27/2024 7:18 AM EDT Images from the original note were not included. What is a Peripherally Inserted Central Catheter? - Video Learn how a peripherally inserted central catheter device is used to safely deliver long-term medications and draw blood samples. To view the video go to this web address: https://bit.ly/3UPNVjA Or, scan this QR code with your smart phone ?? [facility] * Care Plan - Corie Andersen RN - 07/26/2024 8:14 PM EDT Problem: Adult Inpatient Plan of Care Goal: Plan of Care Review Outcome: Ongoing, Progressing Flowsheets (Taken 07/26/20242013) Progress: no change Plan of Care Reviewed With: patient Goal: Patient-Specific Goal (Individualized) Outcome: Ongoing, Progressing Goal: Absence of Hospital-Acquired Illness or Injury Outcome: Ongoing, Progressing Goal: Optimal Comfort and Wellbeing Outcome: Ongoing, Progressing Goal: Readiness for Transition of Care Outcome: Ongoing, Progressing Problem: Infection Goal: Absence of Infection Signs and Symptoms Outcome: Ongoing, Progressing * Care Plan - Chidi Munguia RN - 07/26/2024 5:50 PM EDT Problem: Adult Inpatient Plan of Care Goal: Plan of Care Review Outcome: Ongoing, Progressing Goal: Patient-Specific Goal (Individualized) Outcome: Ongoing, Progressing Goal: Absence of Hospital-Acquired Illness or Injury Outcome: Ongoing, Progressing Goal: Optimal Comfort and Wellbeing Outcome: Ongoing, Progressing Goal: Readiness for Transition of Care Outcome: Ongoing, Progressing Problem: Infection Goal: Absence of Infection Signs and Symptoms Outcome: Ongoing, Progressing * Post-Procedure Note - Jennifer Clemens MD - 07/26/2024 9:23 AM EDT Radiology Brief Postprocedure Note Attending: Dr. Clemens Analog Circuit Designer: Jolie Technologist: Sudeep Bueno Pre-operative Diagnosis: left sternoclavicular joint infection Post-operative Diagnosis: same Technical/Surgical Procedures Used: CT-guided aspiration of the left sternoclavicular joint. Scant serosanguinous fluid and clot was aspirated and diluted in 1.5-2 mL of sterile saline. Complications: None Estimated Blood Loss: none Medications As of 07/26/24 0923 oxyCODONE (Roxicodone) immediate release tablet 10 mg (mg) Total dose: 50 mg Dosing weight: 90.3 Date/Time Rate/Dose/Volume Action 07/22/24 1255 10 mg Given 1629 10 mg Given 2103 10 mg Given 07/23/24 0412 10 mg Given 0840 10 mg Given oxyCODONE (Roxicodone) immediate release tablet 20 mg (mg) Total dose: 180 mg Dosing weight: 90.3 Date/Time Rate/Dose/Volume Action 07/24/24 1311 20 mg Given 1823 20 mg Given 2233 20 mg Given 07/25/24 0350 20 mg Given 0921 20 mg Given 1340 20 mg Given 1727 20 mg Given 2142 20 mg Given 07/26/24 0333 20 mg Given sodium chloride 0.9 % flush 10 mL (mL) Total volume: 50 mL Dosing weight: 90.3 Date/Time Rate/Dose/Volume Action 07/22/24 1624 10 mL Given 07/23/24 Canceled Entry 0843 10 mL Given Canceled Entry 07/24/24 0848 10 mL Given Canceled Entry 07/25/24 0921 10 mL Given 214 10 mL Given polyethylene glycol (Miralax) packet 17 g (g) Total dose: 68 g Dosing weight: 90.3 Date/Time Rate/Dose/Volume Action 07/22/24 1629 17 g Given 07/23/24 0840 17 g Given 07/24/24 0847 17 g Given 07/25/24 0921 17 g Given vancomycin IVPB 1750 mg in 250 mL NS IVPB (mL/hr) Total volume: Not documented* Dosing weight: 90.3 *Total volume has not been documented. View each administration to see the amount administered. Date/Time Rate/Dose/Volume Action 07/22/24 1624 1,750 mg - 167.4 mL/hr (over 105 min) New Bag 1840 (over 105 min) Stopped vancomycin in NS (Vancocin) IVPB 1,500 mg (mL/hr) Total dose: 1,500 mg* Dosing weight: 90.3 *From user-documented volume Date/Time Rate/Dose/Volume Action 07/23/24 0404 1,500 mg - 166.7 mL/hr (over 90 min) - 250 mL New Bag 1750 1,500 mg - 166.7 mL/hr (over 90 min) New Bag 07/24/24 0448 1,500 mg - 166.7 mL/hr (over 90 min) New Bag traZODone (Desyrel) tablet 100 mg (mg) Total dose: 400 mg Dosing weight: 90.3 Date/Time Rate/Dose/Volume Action 07/22/242103 100 mg Given 07/23/242053 100 mg Given 07/24/242018 100 mg Given 05/04/25 2059 100 mg Given insulin lispro (Admelog) 100 units/mL injection - Correction - Standard Dose (Units) Total dose: Cannot be calculated* Dosing weight: 90.3 *Administration dose not documented Date/Time Rate/Dose/Volume Action 07/23/24 0939 *Not included in total Missed 1226 *Not included in total Missed 1748 *Not included in total Missed 07/24/24 0848 *Not included in total Missed 1300 *Not included in total Missed insulin lispro (Admelog) injection - Correction - Nighttime Dose (Units) Total dose: Cannot be calculated* Dosing weight: 90.3 *Administration dose not documented Date/Time Rate/Dose/Volume Action 07/22/242023 *Not included in total Missed 07/23/24 Canceled Entry 2051 *Not included in total Missed 07/24/24 Canceled Entry mupirocin (Bactroban) 2 % ointment 1 Application (Application) Total dose: 7 Application Dosing weight: 90.3 Date/Time Rate/Dose/Volume Action 07/22/242103 1 Application Given 07/23/24 0840 1 Application Given 2053 1 Application Given 07/24/24 0847 1 Application Given 2018 1 Application Given 07/25/24 0921 1 Application Given 2104 1 Application Given enoxaparin (Lovenox) syringe 40 mg (mg) Total dose: 120 mg Dosing weight: 90.3 Date/Time Rate/Dose/Volume Action 07/23/24 0840 40 mg Given 07/24/24 0847 40 mg Given 07/25/24 0921 40 mg Given 1200 *Not included in total Held by provider 07/26/24 0900 *Not included in total Automatically Held acetaminophen (Tylenol) tablet 650 mg (mg) Total dose: 5,850 mg* Dosing weight: 90.3 *Administration not included in total Date/Time Rate/Dose/Volume Action 07/23/24 1114 650 mg Given 1747 650 mg Given 07/24/24 0107 *650 mg Missed 0515 650 mg Given 1300 650 mg Given 1823 650 mg Given 07/25/24 0106 *650 mg Missed 0500 *650 mg Missed 1253 650 mg Given 1727 650 mg Given 07/26/24 0011 650 mg Given 0510 650 mg Given HYDROmorphone (Dilaudid) injection 1 mg (mg) Total dose: 1 mg Dosing weight: 90.3 Date/Time Rate/Dose/Volume Action 07/23/24 1147 1 mg Given oxyCODONE (Roxicodone) immediate release tablet 15 mg (mg) Total volume: Not documented* Dosing weight: 90.3 *Total volume has not been documented. View each administration to see the amount administered. Date/Time Rate/Dose/Volume Action 07/23/24 1241 15 mg Given 1747 15 mg Given 2205 15 mg Given 07/24/24 0344 15 mg Given 0847 15 mg Given lidocaine (Lidoderm) 5 % patch 1 patch (patch) Total dose: 2 patch* Dosing weight: 90.3 *Administration not included in total Date/Time Rate/Dose/Volume Action 07/23/24 1747 *1 patch (over 720 min) Missed 07/24/24 1613 1 patch (over 720 min) Medication Applied 07/25/24 0327 (over 720 min) Medication Removed 1615 1 patch (over 720 min) Medication Applied 07/26/24 0335 (over 720 min) Medication Removed potassium chloride CR (Klor-Con) ER tablet 40 mEq (mEq) Total dose: 40 mEq Dosing weight: 90.3 Date/Time Rate/Dose/Volume Action 07/24/24 0515 40 mEq Given Vancomycin HCl in NaCl (Vancocin) IVPB 1,000 mg (mL/hr) Total dose: 1,000 mg* Dosing weight: 90.3 *From user-documented volume Date/Time Rate/Dose/Volume Action 07/24/24 1613 1,000 mg - 250 mL/hr (over 60 min) Given 07/25/24 0322 1,000 mg - 250 mL/hr (over 60 min) - 250 mL Given 1630 1,000 mg - 250 mL/hr (over 60 min) Given 07/26/24 0400 1,000 mg - 250 mL/hr (over 60 min) Given cyclobenzaprine (Flexeril) tablet 5 mg (mg) Total dose: 5 mg Dosing weight: 90.3 Date/Time Rate/Dose/Volume Action 07/25/24 2059 5 mg Given lidocaine PF (Xylocaine) 1 % injection 300 mg (mL) Total volume: 2 mL Dosing weight: 90.3 Date/Time Rate/Dose/Volume Action 07/26/24 0849 2 mL Given See detailed result report with images in PACS. The patient tolerated the procedure well without incident or complication and is in stable condition. * Progress Notes - Brittney Johnson MD - 07/26/2024 9:21 AM EDT Infectious Diseases Follow-up Note Chief Complaint: Left clavicle pain Subjective/IE: Planned for a CT-guided left sternoclavicular joint aspiration today. Maintained on IV vancomycin at present. Admission blood cultures remain negative. Pt notes clavicular pain is stable but persistent. Notes pain initially started around the same time as the bloodstream infection but continued afterwards. No systemic complaints at present Abx: Vancomycin 07/22-date Completed 14 day course of IV therapy (? Vancomycin) 07/01-07/15/24 MEDICATIONS: Current Medications[1] Visit Vitals BP 126/85 Pulse 58 Temp 36.4 ??C (97.6 ??F) Resp 18 Ht 1.778 m (5' 10 ) Wt 90.3 kg (199 lb) SpO2 97% BMI 28.55 kg/m?? Smoking Status Never BSA 2.11 m?? EXAM: Physical Exam Vitals and nursing note reviewed. Constitutional: General: He is not in acute distress. Appearance: Normal appearance. He is not ill-appearing. HENT: Head: Normocephalic and atraumatic. Nose: Nose normal. Eyes: General: No scleral icterus. Right eye: No discharge. Left eye: No discharge. Conjunctiva/sclera: Conjunctivae normal. Pulmonary: Effort: Pulmonary effort is normal. No respiratory distress. Musculoskeletal: General: Normal range of motion. Comments: Dressing over clavicular aspiration site Skin: General: Skin is warm and dry. Neurological: Mental Status: He is alert. Mental status is at baseline. Psychiatric: Mood and Affect: Mood normal. Behavior: Behavior normal. Thought Content: Thought content normal. Judgment: Judgment normal. LABS Labs in last 18 hours CBC WBC 4.16 Hb 11.1 (L) Plt 253 Hct 32.9 (L) ANC 2.25 INR ??, PTT ??, Anti-Xa ?? BMP Na 139 Cl 103 BUN 8 Glu 96 K 3.7 Co2 26 Cr 0.60 (L) Ca 9.1 iCa ?? Mg ??, Phos ?? Lactate ?? LFT AST ?? AlkPhos ?? T Prot ?? ALK ?? Bili ?? Alb ?? D.Bili ?? MICRO Antimicrobials Glycopeptides Disp Start End Vancomycin HCl in NaCl (Vancocin) IVPB 1,000 mg -- 07/24/2024 -- 1,000 mg, Intravenous, Every 12 hours @ 250 mL/hr IMAGING: Reviewed 07/21 CT Chest with IV contrast IMPRESSION: No acute pulmonary process. No new focal consolidation Interval development of asymmetric soft tissue thickening and inflammation adjacent to the left sternoclavicular joint along with new small lytic changes in the medial head of the left clavicle and left side of the manubrium. The constellation of findings concerning for soft tissue infection/osteomyelitis with septic arthritis. Clinical correlation and joint aspiration is recommended. ASSESSMENT: Henny Daniels Jr. is a 49 y.o. 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 Patient recently admitted at [facility] from 07/01 -> 07/08 for MRSA bacteremia, where he notes left clavicle/shoulder pain first started. Patient presented to his appointment with Oncology on 07/22; imaging showed asymmetric soft tissue thickening and inflammation adjacent to the left sternoclavicular joint along with new small lytic changes in the medial head of the left clavicle and left side of the manubrium. Patient was admitted for further management of left SCJ septic arthritis and adjacent osteomyelitis. Underwent IR-guided aspiration today. Etiology of current osteoarticular infection likely from seeding during recent MRSA bacteremia Problem List - Left supraclavicular joint septic arthritis, adjacent osteomyelitis - Recent MRSA bloodstream infection - History of neck SCC Recommendations: - Continue IV Vancomycin PTD at present - Noted admission blood cultures are NGTD - TTE ordered, will follow results - Likely plan for a 6-week duration of therapy given findings of osteomyelitis adjacent to the supraclavicular joint finding of septic arthritis - Tentatively, will plan for an eventual transition to IV daptomycin 10mg/kg q24 hours for ease of OPAT administration - Will place OPAT enrollment orders - Can plan for PICC placement tomorrow if admission blood cultures remain negative ID will follow Brittney Johnson MD Pager [phone] [facility] attestation - Today, I am treating the patient for septic arthritis/osteomyelitis which can cause sepsis in theshort-term future in the absence of appropriate treatment, as described in the note. - Discussed management of septic arthritis/osteomyelitis with primary team and consulting services. - Discussed test interpretation of imaging, culture data with primary team - Reviewed notes by primary team and consulting services to determine appropriate plan of care as in the note. - Estimated Creatinine Clearance: 125 mL/min (A) (by C-G formula based on SCr of 0.6 mg/dL (L)).reviewed; antibiotics recommended above are dosed accordingly. - The patient is being intensively monitored for antimicrobial toxicity from vancomycin with the following tests: CBC, CMP. The following complex inpatient infectious disease services were performed today: Complex antimicrobial therapy counseling and treatment [1] Current Facility-Administered Medications: acetaminophen (Tylenol) tablet 650 mg, 650 mg, Oral, q6h [facility], Cassie Luevano MD, 650 mg at 07/26/24 0510 cyclobenzaprine (Flexeril) tablet 5 mg, 5 mg, Oral, TID PRN, Clemente Sears MD, 5 mg at 07/25/242058 [Held by provider] enoxaparin (Lovenox) syringe 40 mg, 40 mg, Subcutaneous, Daily, Cassie Luevano MD, 40 mg at 07/25/24 0921 famotidine (Pepcid) tablet 20 mg, 20 mg, Oral, Nightly PRN, Clemente Sears MD lidocaine (Lidoderm) 5 % patch 1 patch, 1 patch, Apply externally, q24h, Cassie Luevano MD, 1 patch at 07/25/24 1615 mupirocin (Bactroban) 2 % ointment 1 Application, 1 Application, Each Nostril, BID, Susannah Arevalo MD, 1 Application at 07/25/24 2105 ondansetron ODT (Zofran-ODT) disintegrating tablet 4 mg, 4 mg, Oral, q6h PRN OR ondansetron (Zofran) injection 4 mg, 4 mg, Intravenous, q6h PRN, Cassie Luevano MD oxyCODONE (Roxicodone) immediate release tablet 20 mg, 20 mg, Oral, q4h PRN, Clemente Sears MD,20 mg at 07/26/24 0333 polyethylene glycol (Miralax) packet 17 g, 17 g, Oral, Daily, Cassie Luevano MD, 17 g at 1 Insert peripheral IV, , , Once AND Saline lock IV, , , Once AND sodium chloride 0.9 % flush10 mL, 10 mL, Intravenous, q12h, 10 mL at 07/25/242141 AND sodium chloride 0.9 % flush 10 mL, 10 mL, Intravenous, PRN, Cassie Luevano MD traZODone (Desyrel) tablet 100 mg, 100 mg, Oral, Nightly, Zacarias Dietrich MD, 100 mg at 07/25/242058 Vancomycin HCl in NaCl (Vancocin) IVPB 1,000 mg, 1,000 mg, Intravenous, q12h, Susannah Arevalo MD, 1,000 mg at 07/26/24 040 * Progress Notes - Herb-Dee Prabhakar, PharmD - 07/26/2024 8:09 AM EDT Pharmacokinetic Consult - Therapeutic Drug Monitoring HPI and Hospital Course: Henny Daniels Jr. is a 49 y.o. male admitted for acute osteomyelitis of L clavicle. Pharmacy consulted to assist with management of vancomycin therapy for osteomyelitis. Creatinine, Plasma (mg/dL) Date/Time Value 07/26/2024 0326 0.60 (L) Vancomycin Pharmacokinetic Evaluation: Current vancomycin dose (mg): 1000 mg Current vancomycin frequency (hr): 12 hr Current vancomycin administer over (min): 60 min Date of the most recent dose: 07/26/24 Start time of the most recent dose: 399 C1 random (ug/mL): 24.3 mcg/mL C2 trough (ug/mL): 17.5 mcg/mL Vancomycin ke (hr ^-1): 0.0374 Vancomycin half-life (hr): 18.5 Cmax, actual (ug/mL): 25.83 Ctrough, actual (ug/mL): 17.12 Vancomycin AUC 24hr (mg??hr/L): 509 Vancomycin Vd (L): Steady state Vd : 105.086 Vancomycin Vd (L/kg): Steady state Vd : 1.164 AUC goal (24 hr): 500 mg??hr/L Assessment and Recommendations: 1. Levels drawn appropriately 2. Recommend to continue with current regimen of vancomycin 1000 mg every 12 hours. 3) Monitor renal function (SCr and BUN) and UOP at least 2-3x/week or more frequently if renal function changes. 4) Obtain repeat AUC levels within 7 days or sooner if renal function changes. Pharmacy will continue to follow, Submitted by: Dee Patterson PharmD 8:07 AM * H&P - Jennifer Clemens MD - 07/26/2024 7:39 AM EDT Images from the original note were not included. Chief Concern & History Of Present Illness Henny Daniels Jr. is a 49 y.o. male presenting with findings concerning for left sternoclavicular septic arthritis. [facility] radiology was consulted for image-guided aspiration. Past Medical History He has a past medical history of Blood infection, Diabetes ([facility]), High blood pressure, Lip cancer, Morbid obesity (CMS/HCC) (01/07/2024), PONV (postoperative nausea and vomiting), Type 2 diabetesmellitus (01/07/2024), and UTI (urinary tract infection) (01/07/2024). He has no past medical history of Malignant hyperthermia or Pseudocholinesterase deficiency. Surgical History He has a past surgical history that includes Kidney stone surgery; Hernia repair (1999); Other surgical history (2018); Salivary gland surgery; and oral surgery (Left, 01/06/2024). Family History Family History[1] Social History He reports that he has never smoked. He has never been exposed to tobacco smoke. He has never used smokeless tobacco. He reports current alcohol use. He reports that he does not use drugs. Occupational History Occupational history[2] Employer: [employer] Travel History Relevant International Travel History: Travel Screening Question Response Have you been in contact with someone who was sick? No / Unsure Do you have any of the following new or worsening symptoms? None of these Have you traveled internationally or domestically in the last month? No Travel History Travel since 06/26/24 No documented travel since 06/26/24 Relevant Domestic Travel History: N/A Immunizations not reviewed VACCINE/DOSE DATE Flu 01/11/2020 Tetanus Pneumovax Shingles Allergies Penicillins Medications Current Medications[3] Review of Systems Negative except for HPI Physical Exam GEN: NAD. HEENT: EOMI, MMM. Trachea midline. Neck supple CVS: Regular rate PULM: Non-labored breathing ABD: Soft, non-tender, non-distended MSK: spontaneous movement x4; No CCE NEURO: CN grossly intact PSYCH: Euthymic. Full affect Last Recorded Vitals Blood pressure 126/85, pulse 58, temperature 36.4 ??C (97.6 ??F), resp. rate 18, height 1.778 m (5'10 ), weight 90.3 kg (199 lb), SpO2 97%. Relevant Results Relevant imaging reviewed. Assessment/Plan Principal Problem: Acute osteomyelitis of left clavicle (CMS/HCC) Will perform CT-guided left sternoclavicular aspiration. Medically Ready for Discharge: per primary team [1] Family History Problem Relation Name Age of Onset Lung cancer Mother Cancer Other Brain cancer Cousin Lung cancer Father's Brother Stomach cancer Mother's Brother Anesthesia problems Neg Hx Malig Hyperthermia Neg Hx [2] [3] Current Facility-Administered Medications Medication Dose Route Frequency Provider Last Rate Last Admin acetaminophen (Tylenol) tablet 650 mg 650 mg Oral q6h [facility] Cassie Luevano MD 650 mg at 07/26/24509 cyclobenzaprine (Flexeril) tablet 5 mg 5 mg Oral TID PRN Clemente Sears MD 5 mg at 07/25/242058 [Held by provider] enoxaparin (Lovenox) syringe 40 mg 40 mg Subcutaneous Daily Cassie Luevano MD 40 mg at 07/25/24 0921 famotidine (Pepcid) tablet 20 mg 20 mg Oral Nightly PRN Clemente Sears MD lidocaine (Lidoderm) 5 % patch 1 patch 1 patch Apply externally q24h Cassie Luevano MD 1 patch at07/25/24 1615 mupirocin (Bactroban) 2 % ointment 1 Application 1 Application Each Nostril BID Susannah Arevalo MD 1 Application at 07/25/24 2105 ondansetron ODT (Zofran-ODT) disintegrating tablet 4 mg 4 mg Oral q6h PRN Cassie Luevano MD Or ondansetron (Zofran) injection 4 mg 4 mg Intravenous q6h PRN Cassie Luevano MD oxyCODONE (Roxicodone) immediate release tablet 20 mg 20 mg Oral q4h PRN Clemente Sears MD 20 mg at 07/26/24 0333 polyethylene glycol (Miralax) packet 17 g 17 g Oral Daily Cassie Luevano MD 17 g at 07/25/24 0921 sodium chloride 0.9 % flush 10 mL 10 mL Intravenous q12h Cassie Luevano MD 10 mL at 07/25/24 2142 And sodium chloride 0.9 % flush 10 mL 10 mL Intravenous PRN Cassie Luevano MD traZODone (Desyrel) tablet 100 mg 100 mg Oral Nightly Zacarias Dietrich MD 100 mg at 07/25/242058 Vancomycin HCl in NaCl (Vancocin) IVPB 1,000 mg 1,000 mg Intravenous q12h Susannah Arevalo MD 1,000 mg at 07/26/24 0400 * Progress Notes - Cassie Luevano MD - 07/26/2024 7:39 AM EDT Subjective NAEO. Patient reports L shoulder pain is tolerable with current pain management regiment. He is scheduled for CT guided IR aspiration of the left sternoclavicular joint, for which he was NPO and his lovenox was held. Pt denies fever, chills, N/V/D/C, chest pain, SOB. Checked in after procedure and patient reported he was feeling well. Has some back pain but no painat aspiration site. Denies any other new symptoms. Objective Last Recorded Vitals Blood pressure 126/85, pulse 58, temperature 36.4 ??C (97.6 ??F), resp. rate 18, height 1.778 m (5'10 ), weight 90.3 kg (199 lb), SpO2 97%. Physical Exam Vitals reviewed. Constitutional: General: He is not in acute distress. Appearance: He is not ill-appearing or diaphoretic. HENT: Head: Comments: L lower lip s/p surgical resection. 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 Eyes: General: No scleral icterus. Conjunctiva/sclera: Conjunctivae normal. Cardiovascular: Rate and Rhythm: Normal rate and regular rhythm. Pulmonary: Effort: Pulmonary effort is normal. No respiratory distress. Breath sounds: Normal breath sounds. Musculoskeletal: Right lower leg: No edema. Left lower leg: No edema. Comments: No erythema, warmth, or fluctuance to L sternoclavicular joint Skin: General: Skin is warm and dry. Comments: RLE with wound vac in place Neurological: General: No focal deficit present. Mental Status: He is alert and oriented to person, place, and time. Assessment/Plan Principal Problem: Acute osteomyelitis of left clavicle (CMS/HCC) Henny Daniels Jr. is a 49 y.o. 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 Suspected septic arthritis vs osteomyelitis of L sternoclavicular joint - Recent admission at OSH for MRSA bacteremia completed 14 day course of IV vanc. Presented to Med Onc clinic for routine follow-up. CT findings concerning for L sternoclavicular septic arthritis vs OM. - Afebrile. Hemodynamically stable. No leukocytosis. - Bcx NGTD > 48 hrs - Thoracic Surgery consulted, no plan for surgical intervention/debridement - ID consulted, appreciate recs - CT guided aspiration of L sternoclavicular joint 07/26, fluid cell diff and culture pending PLAN: - Continuing home oxycodone 20 mg q4 PRN + Tylenol q6 - Echo ordered, pending - Continue IV vanc, anticipate several weeks of IV abx - Plan for PICC placement given negative Bcs -Follow up joint aspirate cultures for final abx plan Chronic Non-healing RLE Wound - L neck dissection with fibular free flap 12/2023 c/b RLE non-healing wound and infection s/p surgical debridement and wound vac. 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 Recurrence with mets s/p surgery, chemo, radiation. Completed chemoradiation 04/2024. Currently on active surveillance. - Opioid tolerant. Continue home opioids. - Prior PEG, removed within past 1 month. Unsure at this time if intentional or unintentional removal - Currently on PO diet. BUSINESS IMPROVEMENT MANAGER following Plan: -MBS per BUSINESS IMPROVEMENT MANAGER recs Chronic Medical Conditions: HTN- not currently on medication. Monitoring BP T2DM- A1c 5.3, has not required correction dose insulin this admission, will discontinue Diet: Regular VTE ppx: pLov Dispo: Awaiting final antimicrobial regimen and duration. Anticipate several weeks IV abx. Radha Browning MS3 07/26/2024 I saw and evaluated the patient with the medical student. I discussed the case with the medical student and agree with the findings and plan as documented. I personally performed the Exam and MedicalDecision Making. Cosigned by Susannah Arevalo MD at 07/26/2024 11:19 AM EDT Associated attestation - Susannah Arevalo MD - 07/26/2024 11:19 AM EDT I saw and evaluated the patient with the resident/fellow. I discussed the case with the resident/fellow and agree with the findings and plan as documented. * Significant Event - Karine Estevez MD - 07/25/2024 6:38 PM EDT ENT contacted that patients wound vac had blockage. Attempted to use different machine and new canister, but blockage remained. Decision was made to replace wound vac foam. Patient was in agreement with plan. VAC Indication: Other: post surgical infection right lower extremity donor site requiring prolong wound management Consent Obtained: Yes Patient Hand Hygiene: Hand hygiene performed. Clean prep and drape was performed per hospital policy. Sedation: was not administered Local Anesthetic: was not administered Foam Removed: 1 Piece(s) Wound Appearance: clean, good granulation tissue, healing Wound Dimensions: 10 cm x 5 cm x .25 cm Foam Applied: Silver Foam Therapy: continuous negative pressure at 125 mmHg. Disposition: Procedure completed without difficulty Patient tolerated the procedure well no complications Karine Estevez MD Otolaryngology Resident, PGY-1 Pager: [phone] * Care Plan - Chidi Munguia RN - 07/25/2024 5:23 PM EDT Problem: Adult Inpatient Plan of Care Goal: Plan of Care Review Outcome: Ongoing, Progressing Goal: Patient-Specific Goal (Individualized) Outcome: Ongoing, Progressing Goal: Absence of Hospital-Acquired Illness or Injury Outcome: Ongoing, Progressing Goal: Optimal Comfort and Wellbeing Outcome: Ongoing, Progressing Goal: Readiness for Transition of Care Outcome: Ongoing, Progressing Problem: Infection Goal: Absence of Infection Signs and Symptoms Outcome: Ongoing, Progressing * Progress Notes - Karine Estevez MD - 07/25/2024 9:49 AM EDT Otolaryngology-Head and Neck Surgery Progress Note Hospital Day: 4 Subjective NAEON. Doing well this AM. Reports his leg is not painful and feels it is healing with wound vac. Objective Physical Exam GEN: no apparent distress, well appearing male HEAD: Normocephalic, atraumatic EYES: No scleral icterus, no conjunctival injection EARS: Pinnae without laceration or deformity, no drainage NOSE: Nares patent, no drainage MOUTH: Mucous membranes pink and moist, tongue with full ROM NECK: Soft, supple, no palpable masses RESP: Symmetric chest rise, unlabored breathing CV: no cyanosis, no edema MSK/EXT: RLE wound dressed with continuous wound vac appliance, no surrounding erythema or erythema. TTP of the left clavicle and sternum SKIN: Warm, well perfused NEURO: alert and oriented, no focal deficits PSYCH: Appropriate mood and affect Edited by: Karine Estevez MD at 07/25/2024 0949 Vitals: Temp: [36.3 ??C (97.3 ??F)-36.5 ??C (97.7 ??F)] 36.3 ??C (97.3 ??F) Heart Rate: [61-84] 76 Resp: [15-17] 17 BP: (133-158)/(88-108) 138/88 Temp (24hrs), Av.4 ??C (97.5 ??F), Min:36.3 ??C (97.3 ??F), Max:36.5 ??C (97.7 ??F) Wt Readings from Last 1 Encounters: 07/22/24 90.3 kg (199 lb) I/O: Intake/Output Summary (Last 24 hours) at 07/25/2024 0949 Last data filed at 07/25/2024 0924 Gross per 24 hour Intake 1390 ml Output 2900 ml Net -1510 ml Diagnostic Studies Reviewed: Results Procedure Component Value Units Date/Time Sheri auris Surveillance by PCR [[id number]] (Normal) Collected: 07/22/242109 Order Status: Completed Specimen: Swab from Axilla and Groin Updated: 07/25/24818 Sheri auris PCR Result Not Detected Narrative: This PCR assay was developed and its performance characteristics determined by [facility] as appropriate for clinical purposes. This assay has not been cleared or approved bythe FDA, but is performed in a CLIA regulated laboratory that is qualified to perform high-complexity testing. Blood Culture (Aerobic/Anaerobet Set) [[id number]] Collected: 07/22/24 1523 Order Status: Completed Specimen: Blood from Hand, Right Updated: 07/24/24 1602 Culture No growth at day 2 Narrative: Low blood volume submitted, results may be compromised Body Fluid Culture and Gram Stain [[id number]] Order Status: Sent Specimen: Joint Fluid (specify site) Fungal Culture, Sterile Body Fluid (NOT CSF) and JESUS [[id number]] Order Status: Sent Specimen: Joint Fluid (specify site) Blood Culture (Aerobic/Anaerobet Set) [[id number]] Collected: 07/22/24 1300 Order Status: Completed Specimen: Blood from Wrist, Right Updated: 07/24/24 1402 Culture No growth at day 2 Narrative: Low blood volume submitted, results may be compromised Multi Drug Resistance Test [[id number]] Collected: 07/22/24 1630 Order Status: Completed Specimen: Swab from Nares and Jannette Rectal Updated: 07/23/24 1323 Culture No growth at day 1 Medications: acetaminophen, 650 mg, Oral, q6h MARLENA enoxaparin, 40 mg, Subcutaneous, Daily lidocaine, 1 patch, Apply externally, q24h mupirocin, 1 Application, Each Nostril, BID polyethylene glycol, 17 g, Oral, Daily sodium chloride, 10 mL, Intravenous, q12h traZODone, 100 mg, Oral, Nightly vancomycin, 1,000 mg, Intravenous, q12h PRN Meds: PRN medications: cyclobenzaprine, famotidine, ondansetron ODT OR ondansetron, oxyCODONE, Insert peripheral IV AND Saline lock IV AND sodium chloride AND sodium chloride Results: No new labs. Assessment/Plan Henny Daniels Jr. is a 49 y.o. male with PMHx notable for recurrent SCC of lip s/p chemotherapy, resection, fibula free flap reconstruction (01/06/24) c/b RLE donor site wound infection s/p debridement and wound vac placement, T2DM, HTN, obesity who presented to [facility] 07/22/24 with concern for L SCM arthritis vs osteomyelitis. ENT/HNS is consulted for management of RLE wound. - Continue wound vac changes weekly while inpatient > next wound vac change 07/30/24 w/ silver sponge > We can change this weekly while inpatient, and he can switch back to MWF black sponge changes at home when discharged > We will hold off on any plans to skin graft the right leg wound until current infection abx are completed - outpatient follow up re-scheduled for Anabella - IV antibiotics per primary team Edited by: Karine Estevez MD at 07/25/2024 0955 Karine Estevez MD Otolaryngology Resident, PGY-1 Pager: [phone] Cosigned by Matias Eldridge MD at 07/27/2024 8:47 PM EDT Associated attestation - Matias Eldridge MD - 07/27/2024 8:47 PM EDT I saw and evaluated the patient with the resident/fellow. I discussed the case with the resident/fellow and agree with the findings and plan as documented. Will forego skin grafting as the defect given infection of the sternoclavicular joint and the lowerextremity donor site defect appears to be healing well with the wound vac in place. This was discussed at length with Shannan Jeremiah and he verbalized understanding and agreement with the plan. Matias Eldridge MD, FACS Head & Neck Surgical Oncology, Transoral Robotic Surgery (TORS), Thyroid & Parathyroid Surgery and Microvascular Reconstruction Department of Otolaryngology-Head & Neck Surgery [facility] Head, Neck, [facility] Respiratory [facility] * Progress Notes - Cassie Luevano MD - 07/25/2024 7:55 AM EDT Subjective Patient reports L shoulder pain well controlled with 20 mg oxycodone q4 PRN. Refused scheduled Tylenol this morning. Discussed importance of multimodal pain control. His appetite is good. Had BM yesterday. Objective Last Recorded Vitals Blood pressure 138/88, pulse 76, temperature 36.3 ??C (97.3 ??F), temperature source Oral, resp. rate 17, height 1.778 m (5' 10 ), weight 90.3 kg (199 lb), SpO2 97%. Physical Exam Vitals reviewed. Constitutional: General: He is not in acute distress. Appearance: He is not ill-appearing or diaphoretic. HENT: Head: Comments: L lower lip s/p surgical resection. 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 Eyes: General: No scleral icterus. Conjunctiva/sclera: Conjunctivae normal. Cardiovascular: Rate and Rhythm: Normal rate and regular rhythm. Pulmonary: Effort: Pulmonary effort is normal. No respiratory distress. Breath sounds: Normal breath sounds. Musculoskeletal: Right lower leg: No edema. Left lower leg: No edema. Comments: No erythema, warmth, or fluctuance to L sternoclavicular joint Skin: General: Skin is warm and dry. Comments: RLE with wound vac in place Neurological: General: No focal deficit present. Mental Status: He is alert and oriented to person, place, and time. Assessment/Plan Principal Problem: Acute osteomyelitis of left clavicle (CMS/HCC) Henny Daniels Jr. is a 49 y.o. male with recurrent head and neck cancer s/p surgery, chemo, and radiation, chronic RLE wound from poorly healed donor graft, and recent hospitalization for MRSA bacteremia direct admit from Med Onc clinic for suspected septic arthritis vs osteomyelitis. Suspected septic arthritis vs osteomyelitis of L sternoclavicular joint - Recent admission at OSH for MRSA bacteremia completed 14 day course of IV vanc. Presented to Med Onc clinic for routine follow-up. CT findings concerning for L sternoclavicular septic arthritis vs OM. - Afebrile. Hemodynamically stable. No leukocytosis. - Bcx NGTD > 48 hrs - Thoracic Surgery consulted, no plan for surgical intervention/debridement PLAN: -Continuing home oxycodone 20 mg q4 PRN + Tylenol q6 - ID consulted, recommend continuing vanc and IR consult for joint sampling - Echo ordered, pending - Continue IV vanc, anticipate several weeks of IV abx - Plan for PICC placement given negative Bcs - Plan for CT guided aspiration of L sternoclavicular joint 07/26 @ 8am. Will hold lovenox Chronic Non-healing RLE Wound - L neck dissection with fibular free flap 12/2023 c/b RLE non-healing wound and infection s/p surgical debridement and wound vac. Follows with ENT, considering split thickness skin graft - Head and Neck Surgery consulted, managing RLE wound, currently has wound vac Recurrent Metastatic Head and Neck SCC - Initial dx 2019 s/p surgical resection. Recurrence with mets s/p surgery, chemo, radiation. Completed chemoradiation 04/2024. Currently on active surveillance. - Opioid tolerant. Continue home opioids. - Prior PEG, removed within past 1 month. Unsure at this time if intentional or unintentional removal - Currently on PO diet. BUSINESS IMPROVEMENT MANAGER following Chronic Medical Conditions: HTN- not currently on medication. BP is normal on admission T2DM- A1c 5.3, has not required correction dose insulin this admission, will discontinue Diet: Regular VTE ppx: pLov Dispo: Awaiting final antimicrobial regimen and duration. Anticipate several weeks IV abx. Cassie Luevano, PGY1 Internal Medicine/Pediatrics Cosigned by Susannah Arevalo MD at 07/25/2024 10:25 AM EDT Associated attestation - Susannah Arevalo MD - 07/25/2024 10:25 AM EDT I saw and evaluated the patient with the resident/fellow. I discussed the case with the resident/fellow and agree with the findings and plan as documented. * Care Plan - Tripp Palacio RN - 07/24/2024 8:05 PM EDT Problem: Adult Inpatient Plan of Care Goal: Plan of Care Review Outcome: Ongoing, Progressing Goal: Patient-Specific Goal (Individualized) Outcome: Ongoing, Progressing Goal: Absence of Hospital-Acquired Illness or Injury Outcome: Ongoing, Progressing Goal: Optimal Comfort and Wellbeing Outcome: Ongoing, Progressing Goal: Readiness for Transition of Care Outcome: Ongoing, Progressing Problem: Infection Goal: Absence of Infection Signs and Symptoms Outcome: Ongoing, Progressing * Consults - Jennifer Clemens MD - 07/24/2024 2:51 PM EDT Will plan for CT-guided aspiration of left sternoclavicular joint on FridayJuly 26 at 8:00am. Do not give morning dose of lovenox prior to procedure. Jennifer Clemens MD MDK Radiology [facility] * Progress Notes - Clemente Sears MD - 07/24/2024 1:29 PM EDT Subjective No acute events overnight. Patient reports pain in L sternoclavicular and shoulder region. Tolerating PO intake. Having regular bowel movements. Denies chest pain or dyspnea. Objective Last Recorded Vitals Blood pressure (!) 141/94, pulse 62, temperature 36.3 ??C (97.4 ??F), resp. rate 16, height 1.778 m(5' 10 ), weight 90.3 kg (199 lb), SpO2 99%. Physical Exam Vitals reviewed. Constitutional: General: He is not in acute distress. Appearance: He is not ill-appearing or diaphoretic. HENT: Head: Comments: L lower lip s/p surgical resection. 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 Eyes: General: No scleral icterus. Conjunctiva/sclera: Conjunctivae normal. Cardiovascular: Rate and Rhythm: Normal rate and regular rhythm. Pulmonary: Effort: Pulmonary effort is normal. No respiratory distress. Abdominal: General: There is no distension. Palpations: Abdomen is soft. Tenderness: There is no abdominal tenderness. There is no guarding or rebound. Musculoskeletal: Right lower leg: No edema. Left lower leg: No edema. Comments: No erythema, warmth, or fluctuance to L sternoclavicular joint Skin: General: Skin is warm and dry. Neurological: Mental Status: He is alert. Assessment/Plan Principal Problem: Acute osteomyelitis of left clavicle (CMS/HCC) Henny Daniels Jr. is a 49 y.o. male with recurrent head and neck cancer s/p surgery, chemo, and radiation, chronic RLE wound from poorly healed donor graft, and recent hospitalization for MRSA bacteremia direct admit from Med Onc clinic for suspected septic arthritis vs osteomyelitis. Suspected septic arthritis vs osteomyelitis of L sternoclavicular joint - Recent admission at OSH for MRSA bacteremia completed 14 day course of IV vanc. Presented to Med Onc clinic for routine follow-up. CT findings concerning for L sternoclavicular septic arthritis vs OM. - Afebrile. Hemodynamically stable. No leukocytosis. - Bcx NGTD PLAN: - Thoracic Surgery consulted, no plan for surgical intervention/debridement - ID consulted, recommend continuing vanc and IR consult for joint sampling - Echo ordered, pending - Will consult [facility] IR for consideration of joint aspirate or bone biopsy - Continue IV vanc, anticipate several weeks of IV abx - Defer PICC until Bcx NG 48h Chronic Non-healing RLE Wound - L neck dissection with fibular free flap 12/2023 c/b RLE non-healing wound and infection s/p surgical debridement and wound vac. 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 Recurrence with mets s/p surgery, chemo, radiation. Completed chemoradiation 04/2024. Currently on active surveillance. - Opioid tolerant. Continue home opioids. - Prior PEG, removed within past 1 month. Unsure at this time if intentional or unintentional removal - Currently on PO diet. BUSINESS IMPROVEMENT MANAGER following Chronic Medical Conditions: HTN- not currently on medication. BP is normal on admission T2DM- A1c 5.3, has not required correction dose insulin this admission, will discontinue Diet: Regular VTE ppx: pLov Dispo: Awaiting final antimicrobial regimen and duration. Anticipate several weeks IV abx. Clemente Sears MD Internal Medicine PGY-3 Cosigned by Susannah Arevalo MD at 07/25/2024 10:25 AM EDT Associated attestation - Susannah Arevalo MD - 07/25/2024 10:25 AM EDT I saw and evaluated the patient with the resident/fellow. I discussed the case with the resident/fellow and agree with the findings and plan as documented. * Progress Notes - Fredy Carlos PharmD - 07/24/2024 10:01 AM EDT Pharmacokinetic Consult - Therapeutic Drug Monitoring HPI and Hospital Course: Henny Daniels Jr. is a 49 y.o. male admitted for Acute osteomyelitis of left clavicle ([facility]). Pharmacy consulted to assist with management of vancomycin therapy for MRSA bacteremia/SCJ septic arthritis /OM Serum creatinine: 0.62 mg/dL (L) 07/24/24 0339 Estimated creatinine clearance: 125 mL/min (A) Vancomycin, Trough, Plasma (ug/mL) Date/Time Value 07/24/2024 0339 20.5 (H) Vancomycin, Peak, Plasma (ug/mL) Date/Time Value 07/24/2024 0903 28.1 Vancomycin Pharmacokinetic Evaluation: Current dosing regimen: 1500 mg IV Q12hr Ke:0.048 T1/2 (hr): 14.5 C max, actual ( micrograms/ml): 31.6 C trough, actual (micrograms/ml) : 18.6 VD (L): 104.7 AUC: 600 New dosing regimen: 1000 mg IV Q12hr Assessment and Recommendations: 1. With a goal AUC of 400-600, AUC of 600 is Supratherapeutic - Pharmacy will decrease the dose to 1000 mg IV Q12hr with an anticipated AUC of 400 and trough of 12.9 mcg/ml 2) Recommend to repeat 2 level kinetics on Wednesday 07/26 to assess the need for dosage adjustments 3) Monitor renal function including SCr, BUN and UOP at least 2-3x/week in addition to clinical status. Pharmacy will continue to follow, Fredy Carlos PharmD, RACHEL, BCPS,BCGP Internal Medicine Clinical Pharmacist Available via [employer] secure chat * Care Plan - Tripp Palacio RN - 07/23/2024 9:33 PM EDT Problem: Adult Inpatient Plan of Care Goal: Plan of Care Review Outcome: Ongoing, Progressing Goal: Patient-Specific Goal (Individualized) Outcome: Ongoing, Progressing Goal: Absence of Hospital-Acquired Illness or Injury Outcome: Ongoing, Progressing Goal: Optimal Comfort and Wellbeing Outcome: Ongoing, Progressing Goal: Readiness for Transition of Care Outcome: Ongoing, Progressing Problem: Infection Goal: Absence of Infection Signs and Symptoms Outcome: Ongoing, Progressing * Progress Notes - Cassie Luevano MD - 07/23/2024 12:59 PM EDT Images from the original note were not included. Hospital Medicine Progress Note Subjective Length of stay: 1 day Brief Patient Summary: Henny Daniels Jr. is a 49 y.o. male with a PMH of recurrent squamous cell carcinoma of lip s/p chemotherapy, resection and skin grafting, chronic infection of RLE wound, T2DM, HTN, obesity who presented to the ED on 07/[address] imaging at his oncologist's office showed concerns for septic arthritisvs osteomyelitis of left clavicular pain. Subjective NAEO. On interview he states that his shoulder pain is still present and is not being well managed with the current pain regiment. Takes 20 mg oxycodone at home for pain. Other than that pt is doing well. ENT is following with wound care. CT surgery states no surgical intervention warranted. Deniedfever, chills, N/V/D/C, CP/SOB. Review of Systems Review of Systems ROS negative unless otherwise specified above. Objective Objective Last Recorded Vitals Blood pressure 127/76, pulse 53, temperature 36.6 ??C (97.9 ??F), temperature source Oral, resp. rate 18, height 1.778 m (5' 10 ), weight 90.3 kg (199 lb), SpO2 100%. Physical Exam Vitals reviewed. Constitutional: General: He is not in acute distress. Appearance: Normal appearance. He is not toxic-appearing. HENT: Head: Normocephalic and atraumatic. Mouth/Throat: Mouth: Mucous membranes are moist. Pharynx: Oropharynx is clear. Eyes: Extraocular Movements: Extraocular movements intact. Conjunctiva/sclera: Conjunctivae normal. Pupils: Pupils are equal, round, and reactive to light. Cardiovascular: Rate and Rhythm: Normal rate and regular rhythm. Pulses: Normal pulses. Pulmonary: Effort: Pulmonary effort is normal. No respiratory distress. Abdominal: General: Abdomen is flat. Palpations: Abdomen is soft. Tenderness: There is no abdominal tenderness. Comments: Has well healed scar at the location of his previous PEG tube. Musculoskeletal: Cervical back: Normal range of motion. Comments: Left shoulder has no pain on palpation, no erythema, no swelling. Pt has decreased ROM ofleft arm where he cannot lift the arm above 90 degrees, limited by pain. Has wound vac on lateral aspect of his right lower extremity. Wound site is non- erythematous, has no edema, no pain on palpation. Skin: General: Skin is warm and dry. Capillary Refill: Capillary refill takes less than 2 seconds. Neurological: General: No focal deficit present. Mental Status: He is alert and oriented to person, place, and time. Psychiatric: Mood and Affect: Mood normal. Behavior: Behavior normal. Relevant Results Labs in last 18 hours CBC WBC ?? Hb ?? Plt ?? Hct ?? ANC ?? INR ??, PTT ??, Anti-Xa ?? BMP Na ?? Cl ?? BUN ?? Glu ?? K ?? Co2 ?? Cr ?? Ca ?? iCa ?? Mg ??, Phos ?? Lactate ?? LFT AST ?? AlkPhos ?? T Prot ?? ALK ?? Bili ?? Alb ?? D.Bili ?? - A1c 5.3 (norm) - Blood culture in lab, pending results - Multidrug resistance test in process - Sheri PCR in process IMAGING (past 24h): No new imaging in the past 24 hrs. Assessment/Plan Assessment & Plan Henny Daniels Jr. is a 49 y.o. male with PMH as per above who presents with L clavicle and manubriumosteomyelitis vs septic arthritis found incidentally on staging CT scan for squamous cell carcinomaof head and neck. Principal Problem: Acute osteomyelitis of left clavicle (CMS/HCC) Osteomyelitis vs SSTI of clavicle and manubrium -Patient reports 3 weeks of worsening L arm pain with movement he attributed to post-operative painafter head and neck surgery -Recent completed 14 days of IV vancomycin for uncomplicated MRSA bacteremia found at OSH. -Found to have L clavicle and manubrium osteomyelitis vs. septic arthritis on CT scan for cancer staging -No erythema, tenderness, or swelling of L clavicle/shoulder -No signs of sepsis. No leukocytosis. Mildly elevated ESR/CRP -No hx of valvular heart disease. No exam findings suggestive of endocarditis. - Blood culture in lab, pending results - CT surgery consulted, no indication for surgical intervention at this time Plan: - Continue Vancomycin - Echo ordered, pending - Transplant ID consulted today, appreciate recs Pain related to neoplasm - On oxycodone 10-20 mg q4 at home - Previously on gabapentin but not taking - on interview 07/23 pt endorsed continued pain Plan: -Pain escalated to scheduled Tylenol 650 q6, 5% lidocaine patch daily, & Oxycodone 15 mg q4 PRN -Miralax daily Poor wound healing -S/p debridement of fibular wound graft site. Underwent debridement w/ Dr. Eldridge 02/16/2024, Had revision and flap formation scheduled with Dr. Eldridge on 07/27 -Has wound vac, last change prior to admission was 07/21 Plan: - Head and neck surgery following, today exchanged wound vac to silver sponge, documenting wound progression in media tab Malnutrition secondary to cancer -Had swallow study 01/2025 due to dysphagia following oral surgery. Showed aspiration of thin liquids. 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 Eldridge. Pathology showed metastatic carcinoma w/ extranodal extension, lymphovascular invasion, perineural invasion -Chemotherapy delayed due to R leg wound. Underwent cisplatin and radiation from 03/31/2024-05/17/24 -Per oncology and radiology interpretation of staging CT scan 07/22, there is not concern for recurrence of cancer. Plan: -Continue to follow with oncology outpatient Chronic Medical Conditions: HTN- not currently on medication. BP is normal on admission T2DM- A1c 5.3, BG 119 today (07/23); pt on sliding scale insulin & diet carbohydrate restriction Fluids: PO DVT Ppx: SQH Diet: Regular diet, easy to chew diet w/ carbohydrate restriction Code status: Full Code Discharge Planning: Anticipated discharge to: Home with Home Health Anticipated discharge needs: None Family Contact: JeremiahEd Follow-up: PCP ENT Future Appointments Date Time Provider Department Center 08/04/2024 11:20 AM Matias Eldridge MD [facility] 08/10/2024 1:30 PM [facility] 08/10/2024 2:30 PM [facility] 08/12/2024 10:00 AM Imer Sevilla MD [facility] [place] Raymondamber Bellayadiranazia MS3 07/23/2024 I saw and evaluated the patient with the medical student. I discussed the case with the medical student and agree with the findings and plan as documented. I personally performed the Exam and MedicalDecision Making. Cosigned by Susannah Arevalo MD at 07/24/2024 9:15 AM EDT Associated attestation - Susannah Arevalo MD - 07/24/2024 9:15 AM EDT I saw and evaluated the patient with the resident/fellow. I discussed the case with the resident/fellow and agree with the findings and plan as documented. * Significant Event - Juani Jones PA - 07/23/2024 12:41 PM EDT Associated Order(s): Wound Vac Placement Proximal;Right Pretibial Henny Daniels : 1975 Wound Vac Placement Proximal;Right Pretibial Performed by: Juani Jones PA Authorized by: Juani Jones PA Associated wounds: Wound 02/23/24 Pretibial Proximal;Right Consent: Consent obtained: Verbal Consent given by: Patient Risks discussed: Yes Indications: 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 DME Vac: No Procedure details: Foam Removed (Pieces): 1 Foam Placed (Pieces): 0 Wound Appearance: Clean, good granulation tissue, small amount of serosanguinous drainage Length (cm): 11 Width (cm): 7 Depth (cm): 2 Calc Area (square cm): 77 Foam Applied: Silver Foam Therapy: Continuous Pressure (mmHg): 125 Patient tolerance of procedure: Tolerated well, no immediate complications Wound vac black sponge changed to silver 07/23/24, and will require weekly changes while inpatient. Juani Jones PA-C Otolaryngology Head & Neck Surgery * Consults - Jodi Gamboa MD - 07/23/2024 11:13 AM EDTAssociated Order(s): Inpatient consult to Infectious Diseases Inpatient consult to Infectious Diseases Consult performed by: Jodi Gamboa MD Consult ordered by: Susannah Arevalo MD Reason for consult: SCJ septic arthritis Requesting Service: MILTON Luque 4 Requested Date/Time: 07/23/2024 History Of Present Illness Henny Daniels Jr. is a 49 y.o. male with past medical history of SCC of neck status post composite resection of oral cavity with segmental mandibulectomy, left radical neck dissection, right modified neck dissection and superficial parotidectomy with right fibular free flap reconstruction on 01/06/2024. Patient follows with oncology for locally advanced recurrent lip cancer s/p resection followed by adjuvant chemotherapy and reirradiation therapy w/weekly cisplatin with re-irradiation C1 03/31/24 completed 05/17/24. Patient recently admitted at [facility] for MRSA bacteremia from 07/01 until 07/08, initially admitted with possible UTI, blood cultures were collected, they contacted him with positiveresults, repeated blood cultures on 07/02 were negative, he was started on Vancomycin and completed 14 day course, PICC line was removed last . Patient presented to his appointment with Oncology on 07/22, he had a CT chest with IV contrast showing no malignancy recurrence but asymmetric soft tissue thickening and inflammation adjacent to the left sternoclavicular joint along with new small lytic changes in the medial head of the left clavicle and left side of the manubrium. Patient was admitted for further management of left SCJ septic arthritis. Since admission, he has been afebrile, and stable, labs showed wbc 4.71, Hb 11.4, plt 327. CRP 24.4. repeated blood cultures remains negative. ID consulted for antibiotic recommendations Past Medical History He has a past medical history of Blood infection, Diabetes ([facility]), High blood pressure, Lip cancer, Morbid obesity ([facility]/HCC) (01/07/2024), PONV (postoperative nausea and vomiting), Type 2 diabetesmellitus (01/07/2024), and UTI (urinary tract infection) (01/07/2024). He has no past medical history of Malignant hyperthermia or Pseudocholinesterase deficiency. Surgical History He has a past surgical history that includes Kidney stone surgery; Hernia repair (1999); Other surgical history (2018); Salivary gland surgery; and oral surgery (Left, 01/06/2024). Family History Family History[1] Social History He reports that he has never smoked. He has never been exposed to tobacco smoke. He has never used smokeless tobacco. He reports current alcohol use. He reports that he does not use drugs. Allergies Penicillins Medications Current Medications[2] Review of Systems Review of Systems Constitutional: Positive for fatigue. Negative for fever. Respiratory: Negative. Cardiovascular: Negative. Gastrointestinal: Negative. Musculoskeletal: Positive for arthralgias and joint swelling. Skin: Positive for rash. Allergic/Immunologic: Positive for immunocompromised state. Neurological: Negative. Psychiatric/Behavioral: Negative. All other systems reviewed and are negative. Physical Exam Physical Exam Vitals and nursing note reviewed. Constitutional: Appearance: Normal appearance. He is obese. HENT: Head: Normocephalic and atraumatic. Right Ear: External ear normal. Left Ear: External ear normal. Nose: Nose normal. Mouth/Throat: Mouth: Mucous membranes are dry. Eyes: Conjunctiva/sclera: Conjunctivae normal. Cardiovascular: Rate and Rhythm: Normal rate. Pulmonary: Effort: Pulmonary effort is normal. No respiratory distress. Comments: trach Abdominal: General: Abdomen is flat. Comments: DHT Musculoskeletal: General: Swelling present. Normal range of motion. Cervical back: Normal range of motion. Skin: General: Skin is dry. Findings: Erythema (left SCJ) and lesion (wound covered - wound vac right leg - lateral aspect) present. Comments: Facial/neck surgical site with redness, swelling Neurological: General: No focal deficit present. Mental Status: He is alert and oriented to person, place, and time. Psychiatric: Mood and Affect: Mood normal. Behavior: Behavior normal. Thought Content: Thought content normal. Judgment: Judgment normal. Last Recorded Vitals Blood pressure 122/87, pulse 70, temperature 36.3 ??C (97.3 ??F), temperature source Oral, resp. rate 17, height 1.778 m (5' 10 ), weight 90.3 kg (199 lb), SpO2 98%. Relevant Results Labs in last 18 hours CBC WBC ?? Hb ?? Plt ?? Hct ?? ANC ?? INR ??, PTT ??, Anti-Xa ?? BMP Na ?? Cl ?? BUN ?? Glu ?? K ?? Co2 ?? Cr ?? Ca ?? iCa ?? Mg ??, Phos ?? Lactate ?? LFT AST ?? AlkPhos ?? T Prot ?? ALK ?? Bili ?? Alb ?? D.Bili ?? Results Procedure Component Value Units Date/Time Sheri auris Surveillance by PCR [[id number]] Collected: 07/22/24 2110 Order Status: Sent Specimen: Swab from Axilla and Groin Updated: 07/23/24 0028 Blood Culture (Aerobic/Anaerobet Set) [[id number]] Collected: 07/22/24 1523 Order Status: Completed Specimen: Blood from Hand, Right Updated: 07/22/24 1753 Culture Culture in lab Narrative: Low blood volume submitted, results may be compromised Multi Drug Resistance Test [[id number]] Collected: 07/22/24 1630 Order Status: Sent Specimen: Swab from Nares and Jannette Rectal Updated: 07/22/24 1652 Blood Culture (Aerobic/Anaerobet Set) [[id number]] Collected: 07/22/24 1300 Order Status: Completed Specimen: Blood from Wrist, Right Updated: 07/22/24 1522 Culture Culture in lab Narrative: Low blood volume submitted, results may be compromised Imaging: CT Chest w IV Contrast [[id number]] Resulted: 07/21/24 FINDINGS: Mediastinum and Pleura: Coronary arteriosclerosis. No pericardial or pleural effusion. No enlarged mediastinal or hilar lymph nodes. Lungs: Central airways are patent. No focal consolidation. A 4 mm right lower lobe nodule (series 2image 52) is stable. Cluster of tiny nodules [...] the posterior aspect of the left manubrium. Impression: No acute pulmonary process. No new focal consolidation Interval development of asymmetric soft tissue thickening and inflammation adjacent to the left sternoclavicular joint along with new small lytic changes in the medial head of the left clavicle and left side of the manubrium. The constellation of findings concerning for soft tissue infection/osteomyelitis with septic arthritis. Clinical correlation and joint aspiration is recommended. Antimicrobials- date Vancomycin 07/22 - c Assessment/Plan Principal Problem: Acute osteomyelitis of left clavicle (CMS/HCC) Henny Daniels Jr. is a 49 y.o. male with past medical history of SCC of neck status post composite resection of oral cavity with segmental mandibulectomy, left radical neck dissection, right modified neck dissection and superficial parotidectomy with right fibular free flap reconstruction on 01/06/2024. Patient follows with oncology for locally advanced recurrent lip cancer s/p resection followed by adjuvant chemotherapy and reirradiation therapy w/weekly cisplatin with re-irradiation C1 03/31/24 completed 05/17/24. Patient recently admitted at [facility] from 07/01 -> 07/08, repeated blood cultures on 07/02 were negative, completed 14 day course, PICC line was removed last . Patient presented to his appointment with Oncology on 07/22, he had a CT chest with IV contrast showing no malignancy recurrence but asymmetric soft tissue thickening and inflammation adjacent to the left sternoclavicular joint along with new small lytic changes in the medial head of the left clavicle and left side of the manubrium. Patient was admitted for further management of left SCJ septic arthritis. Since admission, he has been afebrile, and stable, labs showed wbc 4.71, Hb 11.4, plt 327. CRP 24.4. repeated blood cultures remains negative. # Recent MRSA bacteremia # Left SCJ septic arthritis /OM # history of SCC of neck Recommendations: - At this time, continue with IV vancomycin PTD, thoracic surgery recommend against debridement. - Recommend getting IR involved for possible sampling of the SCJ. - Called [facility] medical records, blood cultures positive on 06/30, repeated on 07/02 and 07/07, these ones were negative. Asked to get those records. - Please, obtain ECHO TTE for further evaluation of cardiac valves. - Monitor kidney function while patient receives high dose antibiotics Thank you for allowing us to participate in this patient's care. ID will follow. MDM attestation - Today, I am treating the patient for left SCJ septic arthritis which can cause multiorgan failurein the short-term future in the absence of appropriate treatment, as described in the note. - Assessment required an independent historian, additional information obtained from chart review - Reviewed notes by primary team and consulting services to determine appropriate plan of care as in the note. - Estimated Creatinine Clearance: 125 mL/min (by C-G formula based on SCr of 0.77 mg/dL).reviewed; antibiotics recommended above are dosed accordingly. - The patient is being intensively monitored for antimicrobial toxicity from Vancomycin with the following tests: CBC, CMP. The following complex inpatient infectious disease services were performed today: Complex antimicrobial therapy counseling and treatment [1] Family History Problem Relation Name Age of Onset Lung cancer Mother Cancer Other Brain cancer Cousin Lung cancer Father's Brother Stomach cancer Mother's Brother Anesthesia problems Neg Hx Malig Hyperthermia Neg Hx [2] Current Facility-Administered Medications Medication Dose Route Frequency Provider Last Rate Last Admin acetaminophen (Tylenol) tablet 650 mg 650 mg Oral q6h [facility] Cassie Luevano MD glucose (Glutose) 40 % oral gel 15 grams of glucose 15 grams of glucose Sublingual q15 min PRZacarias Mclain MD Or dextrose 50 % solution 12.5 g 12.5 g Intravenous q15 min PRZacarias Mclain MD Or glucagon (human recombinant) injection 1 mg 1 mg Intramuscular q15 min PRZacarias Mclain MD enoxaparin (Lovenox) syringe 40 mg 40 mg Subcutaneous Daily Cassie Luevano MD 40 mg at 07/23/24 0840 HYDROmorphone (Dilaudid) injection 1 mg 1 mg Intravenous Once Cassie Luevano MD insulin lispro (Admelog) 100 units/mL injection - Correction - Standard Dose 0-5 Units SubcutaneousTID with meals Zacarias Dietrich MD insulin lispro (Admelog) injection - Correction - Nighttime Dose 0-3 Units Subcutaneous Twice at night Zacarias Dietrich MD mupirocin (Bactroban) 2 % ointment 1 Application 1 Application Each Nostril BID Susannah Arevalo MD 1 Application at 07/23/24 0840 ondansetron ODT (Zofran-ODT) disintegrating tablet 4 mg 4 mg Oral q6h PRN Cassie Luevano MD Or ondansetron (Zofran) injection 4 mg 4 mg Intravenous q6h PRN Cassie Luevano MD oxyCODONE (Roxicodone) immediate release tablet 15 mg 15 mg Oral q4h PRN Cassie Luevano MD polyethylene glycol (Miralax) packet 17 g 17 g Oral Daily Cassie Luevano MD 17 g at 07/23/24 0840 sodium chloride 0.9 % flush 10 mL 10 mL Intravenous q12h Cassie Luevano MD 10 mL at 07/23/24 0843 And sodium chloride 0.9 % flush 10 mL 10 mL Intravenous PRN Cassie Luevano MD traZODone (Desyrel) tablet 100 mg 100 mg Oral Nightly Zacarias Dietrich MD 100 mg at 07/22/24 2104 vancomycin in NS (Vancocin) IVPB 1,500 mg 1,500 mg Intravenous q12h Susannah Arevalo MD 166.7 mL/hr at 07/23/24 0404 1,500 mg at 07/23/24 0404 * Progress Notes - Loren Maharaj CF-BUSINESS IMPROVEMENT MANAGER - 07/23/2024 10:00 AM EDT Speech Language Pathology Clinical Swallow Initial Evaluation Patient Name: Henny Daniels Jr. Age: 49 y.o. Today's Date: 07/23/2024 Recommendations: Pt verbally acknowledged risk factors for dysphagia / aspiration and politely declined safest diet recommendation of NPO at this time. OK for up to Easy to chew (IDDSI Level 7) diet w/ thin liquids (Level 0) and meds as able, per pt request and per MD's discretion. [place] [facility] function. History/Background Information Henny Daniels Jr. is a 49 y.o. male with PMHx significant for recurrent SCC of lip s/p chemotherapy,resection, fibula free flap reconstruction (01/06/24) c/b donor site wound infection s/p debridement and wound vac placement T2DM, HTN, obesity who presented to the [facility] on 07/22/2024 with worsening left clavicular pain and c/f septic arthritis versus osteomyelitis of the left sternoclavicular joint seen on imaging. Problem List[1] Medical History[2] Surgical History[3] Subjective Henny Daniels Jr. was alert and cooperative. Identified by name and . RN provided verbal consent for evaluation. Pt endorses decreased appetite and weight loss recently secondary to difficulty swallowing solid foods given edentulism. Pt reports his PEG tube was removed ~3 weeks ago. He reports drinking thin liquids and consuming regular diet w/o difficulty. He did report some difficulty w/ pills, requiring him to cough pills back up and re-swallow with liquid wash. Objective Current diet: Adult diet Diet texture: Soft & Bite Sized 6; Carbohydrate restriction: Consistent Carb 2 (80 gm max/meal) Respiratory Status: room air WBC: 4.42, WNL Relevant Imaging: CT Chest 07/21/24 IMPRESSION: No acute pulmonary process. No new focal consolidation Interval development of asymmetric soft tissue thickening and inflammation adjacent to the left sternoclavicular joint along with new small lytic changes in the medial head of the left clavicle and left side of the manubrium. The constellation of findings concerning for soft tissue infection/osteomyelitis with septic arthritis. Clinical correlation and joint aspiration is recommended. MBS 06/10/24: Henny Daniels Jr. presents with moderate oropharyngeal dysphagia. Overall, improvement of swallow safety and efficiency was noted when compared to his previous MBS on 03/05/2024. Reduced tongue base retraction resulted in a collection of vallecular residue across all consistencies. Patient required m ultiple swallows to clear the majority of the residue. Consistent penetration of thin and nectar thick liquids occurred during the swallow due to incoordination between timing of bolus flow and timing of maximum laryngeal vestibule closure. Penetrated material consistently eventually spilled to thelevel of the true vocal folds during subsequent swallows with thin liquids. Left head turn and effortful swallow did not improve swallow safety or efficiency. A left head turn resulted in silent aspiration of thin liquids. Scales: GCS: 15 Direction Following: Follows 1 step directions and Independently Oral Mechanism Report: Dentition: edentulous Oral hygiene: WFL Focused Cranial Nerve Exam: Trigeminal Nerve (V): mandible strength/ROM impaired and hyolaryngeal elevation seemingly impaired Facial Nerve (VII): asymmetrical retraction, impaired protrusion left, intact/symmetrical eyebrow raise, and buccinator strength seemingly impaired Vagus Nerve (X): intact palate elevation Spinal Accessory (XI): WFL Hypoglossal Nerve (XII): reduced lateralization, seemingly reduced strength and deviation Function Exam: Secretion Management: adequate Vocal Quality: adequate Cough: - Volitional adequate - Reflexive unable to elicit Oral Feeding Trials: Positionin degrees, upright Feeding assistance: independent, self-fed Consistencies Administered: thin liquid via cup, thin liquid via straw, puree via teaspoon, and drysolid consistency Risk Factors: GERD, hx oropharyngeal dysphagia w/ silent aspiration, squamous cell carcinoma of lipand neck, Subjective complaints of swallowing difficulties and severe protein-calorie malnutrition [place] Swallow Protocol (Monica and Olya, 2014) - 3 Oz water challenge: pass Assessment Pt presents w/ risk factors for aspiration vs. dysphagia, including GERD, hx oropharyngeal dysphagia w/ silent aspiration, squamous cell carcinoma of lip and neck, Subjective complaints of swallowingdifficulties and severe protein- calorie malnutrition. Oral phase c/b anterior loss of thin liquids and prolonged mastication of solids. Pharyngeal phase c/b no overt s/sx aspiration w/ trials presented at bedside, though throat clearing appreciated following thin via cup. Pt passed 3oz water test. Given risk factors, hx silent aspiration, and bedside presentation, safest diet recommendation is NPO pending instrumental assessment; however, pt politely declined recommendation and requested PO diet. Given GCS 15, pt on RA, unremarkable CT Chest, WBC/O2/Temp WNL, and pt report of tolerating regular diet, ok for up to Easy to chew (IDDSI Level 7) diet w/ thin liquids (Level 0) and meds as able, per MD's discretion. Recommend MBS to further assess swallow function. Prognosis: Good for improved function with skilled speech pathology services focusing on stated goals. Patient Education was provided via verbal instruction to patient regarding risk factors for dysphagia, clinical indicators of dysphagia following evaluation, and plan of care . Will continue to provide education in subsequent sessions as warranted. Results and recommendations of this evaluation were communicated to: RN/Team Plan / Recommendations Diet recommendations: Pt verbally acknowledged risk factors for dysphagia / aspiration and politelydeclined safest diet recommendation of NPO at this time. OK for up to Easy to chew (IDDSI Level 7) diet w/ thin liquids (Level 0) and meds as able, per pt request and per MD's discretion. Recommend MBS to further assess swallow function. Follow-up Assessment: MBS Goals Pt will tolerate PO diet w/o overt s/sx aspiration or aspiration-related pulmonary compromise. Pt will participate in MBS to further assess swallowing fx. [1] Patient Active Problem List Diagnosis Type 2 diabetes mellitus with hyperglycemia, without long-term current use of insulin (CMS/HCC) Squamous cell carcinoma, lip Class III obesity with body mass index (BMI) of 40.0 or higher ([facility]/HCC) Squamous cell carcinoma of neck Hypertension Frequent PVCs Electrolyte abnormality Feeding difficulties GERD (gastroesophageal reflux disease) Dysphagia, oropharyngeal Hyperlipidemia Right flank pain Vomiting Cancer related pain Severe obesity (BMI 35.0-39.9) with comorbidity (CMS/HCC) Severe protein-calorie malnutrition (CMS/HCC) CINV (chemotherapy-induced nausea and vomiting) Malignant neoplasm of external lower 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, face and neck (CMS/HCC) Acute osteomyelitis of left clavicle (CMS/HCC) [2] Past Medical History: Diagnosis Date Blood infection hospitalized from 07/01/24 to 07/05/24, UTI, last IV antibiotic 07/15/24, PO antbiotics Diabetes (CMS/HCC) High blood pressure Lip cancer Morbid obesity (CMS/HCC) 01/07/2024 PONV (postoperative nausea and vomiting) Type 2 diabetes mellitus 01/07/2024 UTI (urinary tract infection) 01/07/2024 [3] Past Surgical History: Procedure Laterality Date HERNIA REPAIR 1999 umbilical KIDNEY STONE SURGERY ORAL SURGERY Left 01/06/2024 left composite resection of L FOM, left 1A, left 1B OTHER SURGICAL HISTORY 2019 lip surgery [facility] 2019 * Progress Notes - Deanne Rosa RN - 07/23/2024 9:54 AM EDT New consult for wound vac with low battery, per chart review pt s/p fibula free flap reconstruction(01/06/24) c/b donor site wound infection s/p debridement and wound vac placement, last changed 07/21 at OSH, with Otolaryngology/[facility] planning to see pt today for vac dressing change and to manage vacwhile inpatient. Messaged primary RN Andrea Frye to advise to get a hospital vac from [employer] and a cannister from materials if not already done. Will defer to [facility], please re- consult with concerns. * Consults - Corie Wills RD - 07/23/2024 9:34 AM EDTAssociated Order(s): IP CONSULT TO NUTRITION SERVICES Adult Nutrition Evaluation Note Henny Daniels Jr. 49 y.o. male CSN: [id number] Room/Bed 208/208D Nutrition evaluation type: assessment Reason for evaluation: nurse consult Hospital course: 49 y.o. male presents with worsening left clavicular pain, osteomyelitis, and slowly healing right leg wound. Past medical/ surgical history: Medical History[1] Surgical History[2] Social history: Additional comments: Per chart review, consuming 100% of meals but patient expressed frustrations with diet texture, states they do not need chopped up foods. Diet advanced to EC7 today, patient states it has been better. Took order for dinner and breakfast. Vitals and Basic Assessment: BP: 122/87 Temp: 36.3 ??C (97.3 ??F) Oxygen Therapy: None (Room air) [place] Coma Scale Score: 15 Tone/Cubbin Pressure Risk Score: 39 Allergies: NKFA Medications: acetaminophen, 650 mg, Oral, q6h MARLENA enoxaparin, 40 mg, Subcutaneous, Daily HYDROmorphone, 1 mg, Intravenous, Once insulin lispro, 0-5 Units, Subcutaneous, TID with meals insulin lispro, 0-3 Units, Subcutaneous, Twice at night mupirocin, 1 Application, Each Nostril, BID polyethylene glycol, 17 g, Oral, Daily Insert peripheral IV, , , Once AND Saline lock IV, , , Once AND sodium chloride, 10 mL, Intravenous, q12h AND sodium chloride, 10 mL, Intravenous, PRN traZODone, 100 mg, Oral, Nightly vancomycin, 1,500 mg, Intravenous, q12h Meds were reviewed: Yes Labs: Lab Results Component Value Date GLUCOSE 103 (H) 07/22/2024 CALCIUM 9.7 07/22/2024 NA 132 (L) 07/22/2024 K 3.9 07/22/2024 CO2 27 07/22/2024 CL 97 07/22/2024 BUN 10 07/22/2024 CREATININE 0.77 07/22/2024 PHOS 1.8 (L) 02/23/2024 MG 1.8 (L) 05/13/2024 HGBA1C 5.3 07/22/2024 Anthropometrics: Height: 177.8 cm (5' 10 ) Weight: 90.3 kg (199 lb) BMI (Calculated): 28.55 Weight Evaluation: Overweight (BMI 25-29.9) Newton Body Weight (kg): 75.5 Percent Newton Body Weight: 120 Wt Readings from Last 10 Encounters: 07/22/24 90.3 kg (199 lb) 07/22/24 90.5 kg (199 lb 8.3 oz) 07/14/24 95.4 kg (210 lb 5.1 oz) 06/17/24 98.5 kg (217 lb 2.5 oz) 06/10/24 100 kg (221 lb 5.5 oz) 06/10/24 101 kg (222 lb 3.6 oz) 05/17/24 101 kg (223 lb 12.3 oz) 05/13/24 104 kg (229 lb 0.9 oz) 05/13/24 103 kg (227 lb 15.3 oz) 05/07/24 105 kg (230 lb 9.6 oz) 11/20/23 141 kg (311 lb 1.1 oz) EMR reflects 36% wt loss in the past 1 year. Estimated Needs: Metabolic Cart Study Results: Current Nutrition Intake: Diet Order: Adult Diet Diet Texture: Soft and Bite Sized 6 Adult Carbohydrate Restriction: Consistent CHO 2 ([id number] Brett, 80 g/meal) Diet Experience and Nutrition History: Diet Education Provided: Will monitor Pertinent home medications: Miralax Alevism needs: Nutrition Focused Physical Exam: Physical exam performed on (date): 07/23/2024 Assessment of Malnutrition: Nutrition Problem: Increased nutrient needs protein, calories related to acute osteomyelitis as evidenced by increasedmetabolic demands of wound healing. Status of Nutrition Diagnosis: New Nutrition Interventions and Recommendations: - Adjust current diet -EC7 -Change to CC3, monitor glucose - Continue Boost Glucose Control BID - Recommend obtaining weight weekly - Please document meal intake in flowsheet Nutrition Monitoring and Goals: - Will monitor PO intake/EN infusion, weight, skin, labs, nutrition status - Pt will consume >75% of meal intake - Pt will maintain body weight throughout hospital admission Acuity Level: [address] [1] Past Medical History: Diagnosis Date Blood infection hospitalized from 07/01/24 to 07/05/24, UTI, last IV antibiotic 07/15/24, PO antbiotics Diabetes ([facility]) High blood pressure Lip cancer Morbid obesity ([facility]) 01/07/2024 PONV (postoperative nausea and vomiting) Type 2 diabetes mellitus 01/07/2024 UTI (urinary tract infection) 01/07/2024 [2] Past Surgical History: Procedure Laterality Date HERNIA REPAIR 1999 umbilical KIDNEY STONE SURGERY ORAL SURGERY Left 01/06/2024 left composite resection of L FOM, left 1A, left 1B OTHER SURGICAL HISTORY 2019 lip surgery SALIVARY GL[facility] SURGERY 2019 * Care Plan - Tripp Palacio RN - 07/22/2024 10:41 PM EDT Problem: Adult Inpatient Plan of Care Goal: Plan of Care Review Outcome: Ongoing, Progressing Goal: Patient-Specific Goal (Individualized) Outcome: Ongoing, Progressing Goal: Absence of Hospital-Acquired Illness or Injury Outcome: Ongoing, Progressing Goal: Optimal Comfort and Wellbeing Outcome: Ongoing, Progressing Goal: Readiness for Transition of Care Outcome: Ongoing, Progressing Problem: Infection Goal: Absence of Infection Signs and Symptoms Outcome: Ongoing, Progressing * Consults - Zachary Finney MD - 07/22/2024 5:15 PM EDTAssociated Order(s): Inpatient consult to ENT Otolaryngology-Head and Neck Surgery History & Physical Note 07/22/24 Inpatient consult to ENT Consult performed by: Randolph Mahmood MD Consult ordered by: Susannah Arevalo MD Reason for consult: chronic fibula donor site wound Requesting Service: Hospital Medicine HISTORY OF PRESENT ILLNESS Henny Daniels Jr. is a 49 y.o. male with PMHx significant for recurrent SCC of lip s/p chemotherapy,resection, fibula free flap reconstruction (01/06/24) c/b donor site wound infection s/p debridement and wound vac placement T2DM, HTN, obesity who presented to the [facility] on 07/22/2024 with worsening left clavicular pain and c/f septic arthritis versus osteomyelitis of the left sternoclavicular joint seen imaging. Per chart review he was recently admitted to [facility] from 07/02-07/05after 3 ED visits for MRSA bacteremia, MSSA UTI and c diff colitis. Patient was sent from Dr. Menon's clinic today for concern for septic arthritis vs osteomyelitis of left SCM joint. In regards to h is right leg wound, his wound vac is changed MWF with a black foam (last changed yesterday, 07/21/24). He was tentatively scheduled to get a skin graft placement and removal of wound vac on 07/27/24. History Obtained From: Patient and Primary team PAST MEDICAL HISTORY Medical History[1] PAST SURGICAL HISTORY Surgical History[2] ALLERGIES Allergies[3] FAMILY HISTORY Reviewed and non-contributory Family History[4] SOCIAL HISTORY Alcohol: Denies Tobacco: Denies Illicit Drugs: Denies MEDICATIONS: Current Medications[5] Antithrombotic medications: Is this patient taking warfarin, new oral anti-coagulant, or anti-platelet medication? No If Yes, What Medication: N/A PHYSICAL EXAMINATION: Visit Vitals BP 127/86 (BP Location: Left arm, Patient Position: Sitting) Pulse 72 Temp 36.4 ??C (97.5 ??F) (Oral) Ht 1.778 m (5' 10 ) Wt 90.3 kg (199 lb) SpO2 99% BMI 28.55 kg/m?? BMI: Body mass index is 28.55 kg/m??. Physical Exam GEN: no apparent distress, well appearing male HEAD: Normocephalic, atraumatic EYES: No scleral icterus, no conjunctival injection EARS: Pinnae without laceration or deformity, no drainage NOSE: Nares patent, no drainage MOUTH: Mucous membranes pink and moist, tongue with full ROM NECK: Soft, supple, no palpable masses RESP: Symmetric chest rise, unlabored breathing CV: no cyanosis, no edema MSK/EXT: RLE wound dressed with continuous wound vac appliance, no surrounding erythema or erythema. TTP of the left clavicle and sternum SKIN: Warm, well perfused NEURO: alert and oriented, no focal deficits PSYCH: Appropriate mood and affect LABS CBC WBC 4.42 Hb 12.0 (L) Plt 338 Hct 36.7 (L) ANC 2.96 INR ??, PTT ??, Anti-Xa ?? BMP Na 132 (L) Cl 97 BUN 10 Glu 103 (H) K 3.9 Co2 27 Cr 0.77 Ca 9.7 iCa ?? Mg ??, Phos ?? Lactate ?? IMAGING Radiographic Interpretation: No relevant imaging to review ASSESSMENT/PLAN Henny Daniels JrShannan is a 49 y.o. male with PMHx notable for recurrent SCC of lip s/p chemotherapy, resection, fibula free flap reconstruction (01/06/24) c/b RLE donor site wound infection s/p debridement and wound vac placement, T2DM, HTN, obesity who presented to [facility] 07/22/24 with concern for L SCM arthritis vs osteomyelitis. ENT/HNS is consulted for management of RLE wound. - Please provide wound vac machine to supervisor char house to his current tubing, as his machine's battery is dying - HNS to exchange wound vac tomorrow (07/23/24) to silver sponge and take pictures to document the wound > We can change this weekly while inpatient, and he can switch back to MWF black sponge changes at home when discharged > We will hold off on any plans to skin graft the right leg wound until other infections are addressed - Thoracic Surgery consulted regarding left sternoclavicular osteomyelitis - IV antibiotics per primary team Dispo: per primary This Consult, Assessment, and Plan has been discussed with Dr. Eldridge, Attending Physician. Thank you for involving us in the care of this patient. Please call with any questions or concerns. Randolph Mahmood MD [1] Past Medical History: Diagnosis Date Blood infection hospitalized from 07/01/24 to 07/05/24, UTI, last IV antibiotic 07/15/24, PO antbiotics Diabetes (CMS/HCC) High blood pressure Lip cancer Morbid obesity (CMS/HCC) 01/07/2024 PONV (postoperative nausea and vomiting) Type 2 diabetes mellitus 01/07/2024 UTI (urinary tract infection) 01/07/2024 [2] Past Surgical History: Procedure Laterality Date HERNIA REPAIR 1999 umbilical KIDNEY STONE SURGERY ORAL SURGERY Left 01/06/2024 left composite resection of L FOM, left 1A, left 1B OTHER SURGICAL HISTORY 2018 lip surgery [facility] GL[facility] SURGERY 2019 [3] Allergies Allergen Reactions Penicillins Rash and Swelling A CHILD [4] Family History Problem Relation Name Age of Onset Lung cancer Mother Cancer Other Brain cancer Cousin Lung cancer Father's Brother Stomach cancer Mother's Brother Anesthesia problems Neg Hx Malig Hyperthermia Neg Hx [5] Current Facility-Administered Medications: ondansetron ODT (Zofran-ODT) disintegrating tablet 4 mg, 4 mg, Oral, q6h PRN OR ondansetron (Zofran) injection 4 mg, 4 mg, Intravenous, q6h PRN, Cassie Luevano MD oxyCODONE (Roxicodone) immediate release tablet 10 mg, 10 mg, Oral, q4h PRN, Cassie Luevano MD, 10 mg at 07/22/241628 polyethylene glycol (Miralax) packet 17 g, 17 g, Oral, Daily, Cassie Luevano MD, 17 g at 629 Insert peripheral IV, , , Once AND Saline lock IV, , , Once AND sodium chloride 0.9 % flush10 mL, 10 mL, Intravenous, q12h, 10 mL at 07/22/24 1624 AND sodium chloride 0.9 % flush 10 mL, 10 mL, Intravenous, PRN, Cassie Luevano MD [START ON 07/23/2024] vancomycin in NS (Vancocin) IVPB 1,500 mg, 1,500 mg, Intravenous, q12h, Susannah Arevalo MD vancomycin IVPB 1750 mg in 250 mL NS IVPB, 20 mg/kg, Intravenous, Once, Susannah Arevalo MD, Last Rate: 167.4 mL/hr at 07/22/24 1624, 1,750 mg at 07/22/24 1624 Current Outpatient Medications: ondansetron ODT (Zofran-ODT) 8 MG disintegrating tablet, Take 1 tablet (8 mg) by mouth every 8 hours as needed for nausea or vomiting. (Patient not taking: Reported on 07/22/2024), Disp: 30 tablet, Rfl: 3 oxyCODONE (Roxicodone) 10 MG immediate release tablet, Take 1-2 tablets by mouth every 4 (four) hours as needed for severe pain (g89.3)., Disp: 180 tablet, Rfl: 0 polyethylene glycol (Miralax) 17 GM/SCOOP powder, MIX 17 GRAMS OF POWDER IN 8 OUNCES OF LIQUID AND DRINK ONCE DAILY, Disp: 510 g, Rfl: 0 Cosigned by Matias Eldridge MD at 07/27/2024 8:56 PM EDT Associated attestation - Matias Eldridge MD - 07/27/2024 8:56 PM EDT I saw and evaluated the patient with the resident/fellow. I discussed the case with the resident/fellow and agree with the findings and plan as documented. Will assess donor site at next wound vac change to ensure no evidence of infection. Will confer with primary team and consulting services regarding management of likely osteomyelitis of the sternoclavicular joint and determine if he will still benefit from STSG to the right lower extremity donor site. Matias Eldridge MD, FACS Head & Neck Surgical Oncology, Transoral Robotic Surgery (TORS), Thyroid & Parathyroid Surgery and Microvascular Reconstruction Department of Otolaryngology-Head & Neck Surgery [facility] [place] [facility] * Hospital Course - [facility], Jennifer Raphael MD - 07/22/2024 4:58 PM EDT Henny Daniels Jr. is a 49 y.o. 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 Had clinic visit with oncology on 07/22 for follow up of squamous cell cancer of lip s/p and had staging CT scan which showed osteomyelitis vs septic arthritis of L sternoclavicular joint. He was sent as direct admission for further management. Osteomyelitis and septic arthritis of L sternoclavicular joint -Patient reports 3 weeks of worsening L arm pain with movement he attributed to post-operative painafter head and neck surgery -Recently completed 14 days of IV vancomycin for uncomplicated MRSA bacteremia found at OSH. -Found to have L clavicle and manubrium osteomyelitis vs. septic arthritis on CT scan for cancer staging -Blood cultures drawn in clinic on day of admission -Echo performed on 07/26 showed no signs of valvular vegetations but did show LVEF 25-40% -ID consulted for appropriate abx and treatment duration -IR consulted for CT guided joint aspiration, no organism growth on aspirate. Switched to daptomycin on 07/27 - PICC line placed -Continue daptomycin IV until 09/02. Weekly labs ordered on daptomycin -Follow up in ID clinic Poor wound healing -S/p debridement of fibular wound graft site. Underwent debridement w/ Dr. Eldridge 02/16/2024 -Has wound vac, last changed 2 weeks ago at [facility] -Had revision and flap formation scheduled with Dr. Eldridge on 07/27 -ENT consulted. Wound vac changed. They deferred surgical management of chronic wound until acute infection is resolved Plan: -Weekly wound vac change while inpatient -Outpatient follow up with ENT in 09/2024 HFrEF (EF 25-40%) -Echo 07/26 showed reduced LVEF 25-40% -NO previous diagnosis of HFrEF -Patient denies any symptoms including dyspnea on exertion, edema. -Was previously on ACEi but did not tolerate d/t hypotension -Initiated metoprolol tartrate and tolerated. Will DC on metoprolol succinate 25. 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 Showed aspiration of thin liquids. Patient also reports difficulty eating solid foods -Patient has loss of muscle mass, bitemporal wasting, bmi <19 indicating malnutrition, moderate -Had PEG tube but it was dislodged about 2 weeks ago -Reports he has been drinking Ensure at home and soft foods since PEG tube fell out -Initially NPO pending surgical recs -BUSINESS IMPROVEMENT MANAGER consulted, recommended MBS -Nutrition consulted per oncology recs. Decided not to do MBS as patient had one 06/2024 which showed aspiration but patient declined soft diet. 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 Eldridge. Pathology showed metastatic carcinoma w/ extranodal extension, lymphovascular invasion, perineural invasion -Chemotherapy delayed due to R leg wound. Underwent cisplatin and radiation from 03/31/2024-05/17/24 -Per oncology and radiology interpretation of staging CT scan 07/22, there is not concern for recurrence of cancer. Plan: -Continue to follow with oncology outpatient * Progress Notes - Catherine Shelby, PharmD - 07/22/2024 3:39 PM EDT PHARMACOKINETIC CONSULT: VANCOMYCIN Henny Daniels Jr. is a 49 y.o. male admitted with acute osteomyelitis of L clavicle. Pharmacist consulted for initiation and management of vancomycin therapy. Recent Vitals & Labs: Visit Vitals BP 127/86 (BP Location: Left arm, Patient Position: Sitting) Pulse 72 Temp 36.4 ??C (97.5 ??F) (Oral) Resp 20 Patient Weight 07/22/24 90.3 kg (199 lb) Newton body weight: 73 kg (160 lb 15 oz) Adjusted ideal body weight: 79.9 kg (176 lb 2.6 oz) Body mass index is 28.55 kg/m??. Recent Labs 07/22/24 0857 07/22/24 1225 WBC 4.71 4.42 BUN 10 10 CREATININE 0.75 0.77 CRP -- 24.4* Estimated Creatinine Clearance: 125 mL/min (by C-G formula based on SCr of 0.77 mg/dL). Antimicrobial History: Vancomycin: 07/22/24 - now Vancomycin Pharmacokinetic Evaluation: Goal: AUC24h: 400-600 mg.hr/L; Ctrough: 10-20 mcg/mL; Crandom: >10-20 mcg/mL Estimated creatinine clearance (mL/min): 125 mL/min Estimated vancomycin Vd (0.7 L/kg typically): 0.7 L/kg (Typical) Estimated Ke (hr ^-1): 0.1082 hr^-1 Estimated half-life (hr): 6.41 hr Estimated vancomycin CL (L/hr): 6.839 Enter vancomycin dose (mg): 1500 mg Choose frequency: q12h Predicted AUC 24hr (mg??hr/L): 439 mg??hr/L ASSESSMENT & PLAN Will initiate vancomycin therapy with 1750 mg (~20 mg/kg) IVPB x 1. Based on previous dosing and therapeutic monitoring, will schedule vancomycin 1500 mg (~17 mg/kg) IVPB every 12 hours to achieve a predicted 24h AUC of 439 mg.hr/L (goal 24h AUC: 400-600 mg.hr/L). If vancomycin therapy is continued, will plan on checking levels around the 4th or 5th dose. Monitor renal function (BUN, Scr, UOP) at least 2-3x/week. De-escalate therapy as guided by micro labs, source control, and clinical status. Pharmacy will continue to follow. Catherien Shelby, Tr[place], [facility] Clinical Pharmacist - Internal Medicine Available via SecureChat * Consults - Clemente Huang MD - 07/22/2024 2:43 PM EDTAssociated Order(s): Inpatient consult to Thoracic Surgery Images from the original note were not included. [facility] Department of Surgery Section of Thoracic Surgery History & Physical Note Reason for Consult: Left sternoclavicular joint septic arthritis Requesting Service: Emergency Department Consult Date and Time: 07/22/2024 Inpatient consult to Thoracic Surgery Consult performed by: Clemente Huang MD Consult ordered by: Susannah Arevalo MD History of Present Illness: Chief Complaint: Shoulder pain Henny Daniels Jr. is a 49 y.o. 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 Patient states that he was recently admitted to [facility] from 07/02-07/05 after 3 ED visits for MRSA bacteremia, MSSA UTI and c diff colitis. Patient was discharged on IV vanc and oral flagyl for 10 days. Patient was seen in Oncology clinic this am where routine follow up CT chest was obtained in regards to recurrent SCC of the lip which wasconcerning for soft tissue infection/osteomyelitis with septic arthritis of the left SCV joint . Oncology team instructed patient to be seen in ED. In the ED, patient was HDS with vitals all WNL, afebrile. Labs showed WBC of 4.42, CRP 24.4, and sed rate of 86. Patient has limited mobility of the left SVC joint with pain when he left shoulder is raised past 90 degrees. Review of Systems: Relevant review of systems was obtained as able and is negative unless stated above in HPI. Past Medical History: Medical History[1] Past Surgical History: Surgical History[2] Allergies And Reactions: Allergies[3] Family Medical History: Family History[4] Social History: Tobacco: Tobacco Use: Low Risk (07/22/2024) Patient History Smoking Tobacco Use: Never Smokeless Tobacco Use: Never Passive Exposure: Never Alcohol: None Illicit drug use: None Travel History: Travel Screening Question Response In the last 10 days, have you been in contact with someone who was confirmed or suspected to have Coronavirus/COVID-19? N/a Have you had a COVID-19 viral test in the last 10 days? N/a Do you have any of the following new or worsening symptoms? N/a Have you traveled internationally or domestically in the last month? N/a Immunizations: Immunization History Administered Date(s) Administered Influenza, injectable, quadrivalent 01/11/2020 Gurpreet COVID-19 Vaccine (Blue Cap) 18+ 06/27/2020 I have updated and confirmed the past medical, surgical, family and social history. Home Medications: Prior to Admission medications Medication Sig Start Date End Date Taking? Authorizing Provider ondansetron ODT (Zofran-ODT) 8 MG disintegrating tablet Take 1 tablet (8 mg) by mouth every 8 hoursas needed for nausea or vomiting. Patient not taking: Reported on 07/22/2024 05/13/24 Bonilla Soliman APRN oxyCODONE (Roxicodone) 10 MG immediate release tablet Take 1-2 tablets by mouth every 4 (four) hours as needed for severe pain (g89.3). 07/06/24 08/05/24 Viky Menon MD polyethylene glycol (Miralax) 17 GM/SCOOP powder MIX 17 GRAMS OF POWDER IN 8 OUNCES OF LIQUID AND DRINK ONCE DAILY 06/21/24 Viky Menon MD gabapentin (Neurontin) 600 MG tablet Take 1 tablet (600 mg) by mouth in the morning and 1 tablet (600 mg) in the evening and 1 tablet (600 mg) before bedtime. Patient not taking: Reported on 07/22/2024 06/09/24 07/22/24 Viky Menon MD Anti-Thrombotic Medications: Is this patient taking warfarin, new oral anti-coagulant, or anti-platelet medication? No If Yes, What Medication: N/A Current Hospital Medications: Current Medications[5] Objective: Visit Vitals BP 127/86 (BP Location: Left arm, Patient Position: Sitting) Pulse 72 Temp 36.4 ??C (97.5 ??F) (Oral) Ht 1.778 m (5' 10 ) Wt 90.3 kg (199 lb) SpO2 99% BMI 28.55 kg/m?? Physical Exam: GENERAL: WD, WN, NAD EYES: No scleral icterus or conjunctivitis HENT: Atraumatic, normocephalic, nares patent, mucus membranes moist NECK: Supple, no JVD, no evidence of bruit bilaterally RESP/CHEST: CTA bilaterally CARD: regular rate and rhythm, normal S1 and S2, no murmur, rub, or gallop Extremities: No lower extremity edema present. No cyanosis or clubbing. Pedal pulses palpable +2. Left SVC joint with increased edema compared to left GI: No organomegaly or masses. Soft, Nontender, nondistended. BS present and normoactive x 4 quadrants SKIN: No rash, sores, lesions or subcutaneous nodules. NEURO: AAOx4. Motor intact and no focal deficits PSYCH: Mood and affect congruent and appropriate to situation. Laboratory: CBC WBC 4.42 Hb 12.0 (L) Plt 338 Hct 36.7 (L) INR ??, PTT ?? BMP Na 132 (L) Cl 97 BUN 10 Glu 103 (H) K 3.9 Co2 27 Cr 0.77 Ca 9.7 Mg ??, Phos ?? Imaging: CT chest W IV contrast TECHNIQUE: Multiple CT helical images were obtained from thoracic inlet through upper abdomen without administration of IV contrast. Total DLP (Dose-Length Product): 1549.04 mGy.cm. Please note: The reported value represents the total of one or more individual components during the CT acquisition on this date and at this time, andas such, the same value may appear in more than one CT report depending on the interpreting/reporting physicians. COMPARISON: 12/18/2023 FINDINGS: Mediastinum and Pleura: Coronary arteriosclerosis. No pericardial or pleural effusion. No enlarged mediastinal or hilar lymph nodes. Lungs: Central airways are patent. No focal consolidation. A 4 mm right lower lobe nodule (series 2image 52) is stable. Cluster of tiny nodules [...] the posterior aspect of the left manubrium. IMPRESSION: No acute [...] Clinical correlation and joint aspiration is recommended. Assessment & Plan: Henny Daniels Jr. is a 49 y.o. 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 CT shows soft tissue infection/osteomyelitis with septic arthritis of left SVC joint. On exam, patient is non-tender over the left SVC joint. Labs are largely unremarkable. We recommend admission to for termite treater IV antibiotics per infectious disease, likely 6 weeks or greater. No surgical intervention indicated for infection given overall clinical picture. Please reach out to Thoracic surgery with any questions or concerns. Plan -No surgical intervention - admit and infectious disease consult for termite treater IV abx -Rest per primary team -Please reach out with any questions or concerns Dispo: Per the Emergency Department CODE STATUS: full code This Consult, Assessment, and Plan has been discussed with Dr. Wen, Attending Physician Clemente Huang MD 07/22/24 6:02 PM [1] Past Medical History: Diagnosis Date Blood infection hospitalized from 4/10/25 to 07/05/24, UTI, last IV antibiotic 07/15/24, PO antbiotics Diabetes ([facility]) High blood pressure Lip cancer Morbid obesity ([facility]) 01/07/2024 PONV (postoperative nausea and vomiting) Type 2 diabetes mellitus 01/07/2024 UTI (urinary tract infection) 01/07/2024 [2] Past Surgical History: Procedure Laterality Date HERNIA REPAIR 1999 umbilical KIDNEY STONE SURGERY ORAL SURGERY Left 01/06/2024 left composite resection of L FOM, left 1A, left 1B OTHER SURGICAL HISTORY 2019 lip surgery SALIVARY GLAND SURGERY 2019 [3] Allergies Allergen Reactions Penicillins Rash and Swelling A CHILD [4] Family History Problem Relation Name Age of Onset Lung cancer Mother Cancer Other Brain cancer Cousin Lung cancer Father's Brother Stomach cancer Mother's Brother Anesthesia problems Neg Hx Malig Hyperthermia Neg Hx [5] Current Facility-Administered Medications Medication Dose Route Frequency Provider Last Rate Last Admin ondansetron ODT (Zofran-ODT) disintegrating tablet 4 mg 4 mg Oral q6h PRN Cassie Luevano MD Or ondansetron (Zofran) injection 4 mg 4 mg Intravenous q6h PRN Cassie Luevano MD oxyCODONE (Roxicodone) immediate release tablet 10 mg 10 mg Oral q4h PRN Cassie Luevano MD 10 mg at 07/22/24 1629 polyethylene glycol (Miralax) packet 17 g 17 g Oral Daily Cassie Luevano MD 17 g at 07/22/24 1629 sodium chloride 0.9 % flush 10 mL 10 mL Intravenous q12h Cassie Luevano MD 10 mL at 07/22/24 1624 And sodium chloride 0.9 % flush 10 mL 10 mL Intravenous PRN Cassie Luevano MD [START ON 07/23/2024] vancomycin in NS (Vancocin) IVPB 1,500 mg 1,500 mg Intravenous q12h Susannah Arevalo MD vancomycin IVPB 1750 mg in 250 mL NS IVPB 20 mg/kg Intravenous Once Susannah Arevalo MD 167.4 mL/hr at 07/22/24 1624 1,750 mg at 07/22/24 1624 Current Outpatient Medications Medication Sig Dispense Refill ondansetron ODT (Zofran-ODT) 8 MG disintegrating tablet Take 1 tablet (8 mg) by mouth every 8 hoursas needed for nausea or vomiting. (Patient not taking: Reported on 07/22/2024) 30 tablet 3 oxyCODONE (Roxicodone) 10 MG immediate release tablet Take 1-2 tablets by mouth every 4 (four) hours as needed for severe pain (g89.3). 180 tablet 0 polyethylene glycol (Miralax) 17 GM/SCOOP powder MIX 17 GRAMS OF POWDER IN 8 OUNCES OF LIQUID AND DRINK ONCE DAILY 510 g 0 Cosigned by Elke Faria MD at 07/23/2024 10:25 AM EDT Associated attestation - Elke Faria MD - 07/23/2024 10:25 AM EDT Attending Addendum: Patient interviewed and examined personally and with the resident/fellow/SENIOR PRIVATE CLIENT ADVISOR. I reviewed the patient's history, exam, diagnosis, and the plan of treatment. I agree with the plan of care as follows: no indication for debridement given lack of abscess and sternoclavicular joint resection is quite morbid. We have seen good results with usp antibiotics, and therefore this would be my recommendation. Elke Wen MD paraprofessional education assistant Thoracic Surgery * H&P - Cassie Luevano MD - 07/22/2024 2:02 PM EDTAssociated Order(s): Consult to [facility] Images from the original note were not included. Hospital Medicine History & Physical Consult to [facility] Consult performed by: Cassie Luevano MD Consult ordered by: Yanira Farley PA Reason for consult: Osteomyelitis of L clavicle Subjective 07/22/2024 Chief Complaint: Chief Complaint Patient presents with Shoulder Pain History Of Present Illness Henny Daniels Jr. is a 49 y.o. 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 Patient has a hx of recurrent stage Ivb squamous cell carcinoma of lip. On January 06, 2024 he underwent composite resection of oral cavity malignancy with fibular free flap reconstruction with Dr. Eldridge complicated by wound infection of fibular graft site and underwent debridement on 02/15 followed by chemotherapy and radiation due to positive margins from 03/31/2024-05/17/2024. Patient was recently admitted at [facility] from 07/02-07/05 after 3 ED visits for MRSA bacteremia, MSSAUTI and also c. Difficile colitis. Completed 14 days IV vancomycin outpatient via PICC line for uncomplicated MRSA bacteremia. Discharged with home health for care of chronic leg wound. Wound vac waschanged at [facility]. He was scheduled to have revision with skin flap on 07/27. Patient endorses L shoulder and neck pain with elevation for past few weeks. Thought it was due to recent head and neck surgery. He saw oncologist (Dr. Menon) today for follow up of squamous cell cancer of lip s/p and had staging CT scan which showed osteomyelitis vs septic arthritis of L clavicleand L manubrium. Patient reports feeling well today and was surprised by CT findings. He endorses decreased appetite and weight loss recently secondary to difficulty swallowing solid foods in addition to shoulder pain. He denies any recent fever/chills, headaches, nausea, vomiting, chest pain, SOA,abdominal pain, changes in urination or bowel movements. Denies any numbness, tingling or weakness of L arm. ED labs notable for normal WBC count, Na 132, CRP 24.4, ESR 86. I reviewed prior records including his most recent discharge summary, most recent oncology social worker note, and operative note which documented hospital course at [facility], oncologic hx, surgical management of squamous cell carcinoma of lip and post-operative complications. Past Medical History Medical History[1] Surgical History Surgical History[2] Family History Family History[3] Social History Social History[4] Home Medications Current Outpatient Medications Medication Instructions ondansetron ODT (ZOFRAN-ODT) 8 mg, Oral, Every 8 hours PRN oxyCODONE (ROXICODONE) 10-20 mg, Oral, Every 4 hours PRN polyethylene glycol (Miralax) 17 GM/SCOOP powder MIX 17 GRAMS OF POWDER IN 8 OUNCES OF LIQUID AND DRINK ONCE DAILY Objective Blood pressure 127/86, pulse 72, temperature 36.4 ??C (97.5 ??F), temperature source Oral, resp. rate 20, height 1.778 m (5' 10 ), weight 90.3 kg (199 lb), SpO2 99%. Physical Exam Constitutional: General: He is not in acute distress. Appearance: Normal appearance. He is not ill-appearing. HENT: Head: Normocephalic and atraumatic. Nose: Nose normal. Eyes: Extraocular Movements: Extraocular movements intact. Conjunctiva/sclera: Conjunctivae normal. Cardiovascular: Rate and Rhythm: Normal rate and regular rhythm. Pulmonary: Effort: Pulmonary effort is normal. Chest: Chest wall: No tenderness. Abdominal: General: Abdomen is flat. There is no distension. Palpations: Abdomen is soft. Tenderness: There is no abdominal tenderness. Musculoskeletal: General: No tenderness or deformity. Normal range of motion. Cervical back: Normal range of motion and neck supple. No tenderness. Right lower leg: Edema present. Left lower leg: Edema present. Comments: Pain with elevation of L arm >90 degrees.Trace edema of BLE Lymphadenopathy: Cervical: No cervical adenopathy. Skin: General: Skin is warm and dry. Comments: R fibular wound vac in place Neurological: General: No focal deficit present. Mental Status: He is alert and oriented to person, place, and time. Cranial Nerves: No cranial nerve deficit. Motor: No weakness. Data Labs personally reviewed CBC WBC 4.42 Hb 12.0 (L) Plt 338 Hct 36.7 (L) ANC 2.96 INR ??, PTT ??, Anti-Xa ?? BMP Na 132 (L) Cl 97 BUN 10 Glu 103 (H) K 3.9 Co2 27 Cr 0.77 Ca 9.7 iCa ?? Mg ??, Phos ?? Lactate ?? LFT AST 25 AlkPhos 57 T Prot 7.9 ALK 7 (L) Bili 0.6 Alb ?? D.Bili ?? Imaging CT Soft Tissue neck and chest w/ IV contrast 07/21: Interval development of asymmetric soft tissue thickening and inflammation adjacent to the left sternoclavicular joint along with new small lytic changes in the medial head of the left clavicle and left side of the manubrium. The constellation of findings concerning for soft tissue infection/osteomyelitis with septic arthritis. Clinical correlation and joint aspiration is recommended Assessment/Plan Assessment/ Plan Principal Problem: Acute osteomyelitis of left clavicle (CMS/HCC) Henny Daniels Jr. is a 49 y.o. male with PMH as per above who presents with L clavicle and manubriumosteomyelitis vs septic arthritis found incidentally on staging CT scan for squamous cell carcinomaof head and neck. He was recently treated with 14 days of IV vancomycin for uncomplicated MRSA bacteremia which was likely secondary to osteomyelitis. He is hemodynamically stable and shows no signs of sepsis. This condition poses an acute threat to life/bodily function. Osteomyelitis vs SSTI of clavicle and manubrium -Patient reports 3 weeks of worsening L arm pain with movement he attributed to post-operative painafter head and neck surgery -Recent completed 14 days of IV vancomycin for uncomplicated MRSA bacteremia found at OSH. -Found to have L clavicle and manubrium osteomyelitis vs. septic arthritis on CT scan for cancer staging -No erythema, tenderness, or swelling of L clavicle/shoulder -No signs of sepsis. No leukocytosis. Mildly elevated ESR/CRP -No hx of valvular heart disease. No exam findings suggestive of endocarditis. -Blood cultures drawn in clinic today Plan: - Consult CT surgery for possible debridement and/or clavicular head resection - Restart vancomycin, pharmacy to dose - ECHO - Consult ID for appropriate antibiotics and treatment duration Poor wound healing -S/p debridement of fibular wound graft site. Underwent debridement w/ Dr. Eldridge 02/16/2024 -Has wound vac, last changed 2 weeks ago at [facility] -Had revision and flap formation scheduled with Dr. Eldridge on 07/27 Plan: - Consult head and neck surgery to manage the RLE flap issues Pain related to neoplasm -On oxycodone 10-20 mg q4 at home -Previously on gabapentin but not taking Plan: -Oxycodone 10 mg q4 PRN -Miralax daily -Will likely need more aggressive multimodal pain control pending surgical intervention Malnutrition secondary to cancer -Had swallow study 01/2025 due to dysphagia following oral surgery. Showed aspiration of thin liquids. 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 Eldridge. Pathology showed metastatic carcinoma w/ extranodal extension, lymphovascular invasion, perineural invasion -Chemotherapy delayed due to R leg wound. Underwent cisplatin and radiation from 03/31/2024-05/17/24 -Per oncology and radiology interpretation of staging CT scan 07/22, there is not concern for recurrence of cancer. Plan: -Continue to follow with oncology outpatient Chronic Medical Conditions: HTN-not currently on medication. BP is normal on admission T2DM- last A1c was 8.9 12/2023. Not currently on medication. BG 132 today. Will add sliding scale insulin if uncontrolled hyperglycemia Care today included: HIGHRISK: Discussion of management/test with another provider: CT surgery, ENT Diet: NPO pending CT surgery recs Anticoagulation: holding lovenox iso possible procedure Lines: PIV Dispo: Acute care Cassie Luevano MD PGY1, Internal Medicine/Pediatrics Electronically Signed by: Cassie Luevano MD - 07/22/2024 - 2:02 PM [1] Past Medical History: Diagnosis Date Blood infection hospitalized from 07/01/24 to 07/05/24, UTI, last IV antibiotic 07/15/24, PO antbiotics Diabetes (CMS/HCC) High blood pressure Lip cancer Morbid obesity (CMS/HCC) 01/07/2024 PONV (postoperative nausea and vomiting) Type 2 diabetes mellitus 01/07/2024 UTI (urinary tract infection) 01/07/2024 [2] Past Surgical History: Procedure Laterality Date HERNIA REPAIR 1999 umbilical KIDNEY STONE SURGERY ORAL SURGERY Left 01/06/2024 left composite resection of L FOM, left 1A, left 1B OTHER SURGICAL HISTORY 2018 lip surgery SALIVARY GLAND SURGERY 2019 [3] Family History Problem Relation Name Age of Onset Lung cancer Mother Cancer Other Brain cancer Cousin Lung cancer Father's Brother Stomach cancer Mother's Brother Anesthesia problems Neg Hx Malig Hyperthermia Neg Hx [4] Social History Tobacco Use Smoking status: Never Passive exposure: Never Smokeless tobacco: Never Vaping Use Vaping status: Never Used Substance Use Topics Alcohol use: Yes Comment: social. Drug use: Never Cosigned by Susannah Arevalo MD at 07/22/2024 5:05 PM EDT Associated attestation - Susannah Arevalo MD - 07/22/2024 5:05 PM EDT I saw and evaluated the patient with the resident/fellow. I discussed the case with the resident/fellow and agree with the findings and plan as documented. * ED Provider Notes - Yanira Farley PA - 07/22/2024 11:15 AM EDT Images from the original note were not included. - HPI Chief Complaint Patient presents with Shoulder Pain PIT Note Henny Daniels Jr. is a 49 y.o. male who presents to ED with Shoulder Pain. Pt states he was at oncologist today for follow up about oral cancer when he was informed about infection in left clavicle and possibly left shoulder. States recently admitted at [facility] for MRSA bacteremia. Sent from hem onc clinic for further workup today. Patient denies fever, chills, cough, chest pain, shortness of breath, nausea, vomiting, and diarrhea. Brody: Pt reports generalized weakness that has developed over the past few days, and pain withright shoulder movement for a few weeks, but did not know about the infection until the CT on Friday, during his hospital follow up visit. History provided by: Patient steel finisher used: No Patient History Medical History[1] Surgical History[2] Family History[3] Social History[4] Allergies: Allergies[5] Physical Exam ED Triage Vitals [07/22/24 1131] Temp Heart Rate Resp BP 36.4 ??C (97.5 ??F) 95 20 127/89 SpO2 Temp Source Heart Rate Source Patient Position 100 % Oral -- Sitting BP Location FiO2 (%) Left arm -- Physical Exam Vitals and nursing note reviewed. Constitutional: General: He is not in acute distress. Appearance: He is ill-appearing (chronically). HENT: Head: Normocephalic. Mouth/Throat: Mouth: Mucous membranes are moist. Comments: Mouth, lip, and left neck deformities consistent with surgical history Eyes: Extraocular Movements: Extraocular movements intact. Cardiovascular: Rate and Rhythm: Normal rate. Pulmonary: Effort: Pulmonary effort is normal. No respiratory distress. Breath sounds: Normal air entry. Comments: Speaking full sentences. Symmetric chest rise Abdominal: General: There is no distension. Musculoskeletal: General: Swelling (mild, over left sternoclavicular joint) and tenderness (over left sternoclavicular joint, diffusely to left shoulder) present. No deformity. Normal range of motion. Cervical back: Neck supple. Comments: Atraumatic, moves all extremities spontaneously Skin: General: Skin is warm and dry. Neurological: Mental Status: He is alert and oriented to person, place, and time. Comments: Awake Psychiatric: Mood and Affect: Mood normal. Behavior: Behavior normal. No data recorded ED Course & MDM PIT Date: 07/22/2024 Scribe Attestation: This note was dictated to me, Amparo Salguero, acting as a scribe for Dr. Carson Dykes. Attending Attestation: The documentation was recorded by Amparo Salguero acting as scribe in my presence at the time of the encounter and accurately reflects the service I personally performed. - Assessment: Henny Daniels Jr. is a 49 y.o. male with history of squamous cell carcinoma of the lip, status post multiple surgeries, adjuvant chemoradiation, as well as recent hospitalization for MRSA bacteremia presenting from oncology clinic for admission due to suspected septic arthritis and osteomyelitis of the left sternoclavicular joint, identified incidentally on CT imaging performed earlier this week at a follow up appointment. On initial exam, patient is hemodynamically stable, nontoxic in appearance, in no acute distress. Patient does have some tenderness over the area in question, but there are no overlying skin changes correlating, just some mild swelling. He was able to fully range his left shoulder, though it does cause pain. Differential Diagnosis: Acute versus chronic osteomyelitis, septic arthritis, occult fracture, metastatic disease, among others In order to fully explore the differential diagnosis the following treatments and tests were ordered: ED Medication Administration from 07/22/2024 1031 to 07/22/2024 1527 Date/Time Order Dose Route Action 07/22/2024 1255 EDT oxyCODONE (Roxicodone) immediate release tablet 10 mg 10 mg Oral Given All Other Orders Ordered Status Ordering Provider 07/22/24 1527 Vital Signs Every 4 hours Placed in And Linked Group Acknowledged CASSIE LUEVANO 07/22/24 1527 Pulse Oximetry Every 4 hours Placed in And Linked Group Acknowledged CASSIE LUEVANO 07/22/24 1527 BUSINESS IMPROVEMENT MANAGER eval and treat Until therapy completed Acknowledged CASSIE LUEVANO 07/22/24 1527 Sequential compression device Until discontinued Comments: SCDs must be in place and turned on EXCEPT when ACTIVELY ambulating. Acknowledged CASSIE LUEVANO 07/22/24 1527 Okay To Give Nicotine Replacement Until discontinued Acknowledged CASSIE LUEVANO 07/22/24 1527 Full code Continuous Acknowledged CASSIE LUEVANO 07/22/24 1527 NPO diet NPO except: Ice chips, Sips with meds, Sips of clear liquids Diet effective now Acknowledged CASSIE LUEVANO 07/22/24 1527 Mobility Orders Until discontinued Acknowledged CASSIE LUEVANO 07/22/24 1527 Notify physician (specify parameters) Until discontinued Acknowledged CASSIE LUEVANO 07/22/24 1527 Insert peripheral IV Once Placed in And Linked Group Acknowledged CASSIE LUEVANO 07/22/24 1527 Saline lock IV Once Placed in And Linked Group Acknowledged CASSIE LUEVANO 07/22/24 1527 Multi Drug Resistance Test Once Acknowledged CASSIE LUEVANO 07/22/24 1527 Admit to inpatient Once Acknowledged CASSIE LUEVANO 07/22/24 1408 Once Canceled YANIRA FARLEY 07/22/24 1407 Consult to [facility] Medicine [facility] Once Specialty: Internal Medicine Provider: (Not yet assigned) Acknowledged YANIRA FARLEY 07/22/24 1407 ED to floor bed request Once Completed YANIRA FARLEY 07/22/24 1215 Sed rate, automated STAT Final result TRIPP AVALOS 07/22/24 1215 Blood Culture (Aerobic/Anaerobet Set) STAT Preliminary result TRIPP AVALOS 07/22/24 1215 Blood Culture (Aerobic/Anaerobet Set) STAT In process TRIPP AVALOS 07/22/24 1215 BMP STAT Final result TRIPP AVALOS 07/22/24 1215 CBC w/diff STAT Final result TRIPP AVALOS 07/22/24 1215 C-Reactive protein STAT Final result TRIPP AVALOS Records reviewed from clinic visit earlier today, where Dr. Menon has written out recommendations for inpatient workup. I consulted Internal Medicine, who will admit to their service, as well as thoracic surgery, who will evaluate the patient for the suspected infection. Patient was agreeable to plan for admission. Clinical Impressions as of 07/22/24 1554 Acute osteomyelitis of sternum (CMS/HCC) Squamous cell carcinoma, 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, face and neck (CMS/HCC) Social Determinates of Health Risks (including Economic Stability, Education and level of understanding, Healthcare access and quality and concerning social factors): Lives far away Ultimately, this patient was Was admitted (Admission) The primary encounter diagnosis was Acute osteomyelitis of sternum (CMS/HCC). Diagnosesof Squamous cell carcinoma, lip and Secondary malignant neoplasm lymph nodes of head, face and neck(CMS/HCC) were also pertinent to this visit.. Patient believed to require admission for the listed diagnoses. The Internal Medicine service was consulted for admission and was agreeable to admit to Acute Floor (Med/Surg). ED Prescriptions None Disposition Admit Admitting/Attending Physician: SUSANNAH AREVALO [[id number]] Provider Care Team: MILTON LUQUE 4 [[id number]] Are they the primary team?: Yes [1] - [1] Past Medical History: Diagnosis Date Blood infection hospitalized from 07/01/24 to 07/05/24, UTI, last IV antibiotic 07/15/24, PO antbiotics Diabetes (CMS/HCC) High blood pressure Lip cancer Morbid obesity (CMS/HCC) 01/07/2024 PONV (postoperative nausea and vomiting) Type 2 diabetes mellitus 01/07/2024 UTI (urinary tract infection) 01/07/2024 [2] Past Surgical History: Procedure Laterality Date HERNIA REPAIR 1999 umbilical KIDNEY STONE SURGERY ORAL SURGERY Left 01/06/2024 left composite resection of L FOM, left 1A, left 1B OTHER SURGICAL HISTORY 2018 lip surgery SALIVARY GLAND SURGERY 2019 [3] Family History Problem Relation Name Age of Onset Lung cancer Mother Cancer Other Brain cancer Cousin Lung cancer Father's Brother Stomach cancer Mother's Brother Anesthesia problems Neg Hx Malig Hyperthermia Neg Hx [4] Tobacco Use Smoking status: Never Passive exposure: Never Smokeless tobacco: Never Vaping Use Vaping status: Never Used Substance Use Topics Alcohol use: Yes Comment: social. Drug use: Never [5] Allergies Allergen Reactions Penicillins Rash and Swelling A CHILD Yanira Farley PA 07/22/24 1554 Cosigned by Tripp Avalos MD at 07/26/2024 10:11 AM EDT Associated attestation - Tripp Avalos MD - 07/26/2024 10:11 AM EDT I attest to being involved in more than half the total time in patient care. * ED Triage Notes - Juan C Lei, RN - 07/22/2024 11:15 AM EDT Pt states he was at oncologist today for follow up about oral cancer when he was informed about infection in left clavicle and possibly left shoulder. documented in this encounter Plan of Treatment Upcoming Encounters Date Type Department Care Team (Late st Contact Info) Description 09/23/2024 1:45 PM EDT Evaluation [facility] [address] [facility] [address] [place] [id number] Kelsey Cerda, DMD [address] [place] [id number] 10/06/2024 11:45 AM EDT Office Visit [facility] [address] [facility] [place] [phone] Matias Eldridge MD [address] [facility] [address] [place] [address] 12/13/2024 10:00 AM EDT Office Visit [facility] [address] [place] [address] Viky Menon MD [address] [place] [address] 12/13/2024 1:00 PM EDT Appointment [facility] [id number] [place] [address] Imer Sevilla MD [id number] [place] [address] Scheduled Procedures Name Priority Associated Diagnoses Date/Ti me APPLICATION, GRAFT, SKIN, SPLIT-THICKNESS Wound of right lower extremity PREPARATION, WOUND, PRIOR TO SKIN GRAFT APPLICATION Wound of right lower extremity Scheduled Referrals Name Type Priority Associated Diagnoses Orde r Schedule Discharge Ambulatory referral to Cardiology Outpatient Referral Routine HFrEF (heart failure with reduced ejection fraction) ([facility]) 1 Occurrences starting 07/28/2024 until 01/28/2026 Discharge Ambulatory referral to [facility] Outpatient Referral Routine Acute osteomyelitis of sternum ([facility]) 1 Occurrences starting 07/28/2024 until 01/28/2026 Ambulatory referral to External PCP Outpatient Referral Routine HFrEF (heart failure with reduced ejection fraction) ([facility]) 1 Occurrences starting 07/28/2024 until 01/28/2026 documented as of this encounter Procedures Procedure Name Priority Date/Time Associated Diagnosis Comments POCT GLUCOSE METER UNSOLICITED RESULTS Routine 07/28/2024 11:38 AM EDT INSERT PICC LINE Routine 07/28/2024 10:3 1 AM EDT POCT GLUCOSE METER UNSOLICITED RESULTS Routine 07/28/2024 8:31 AM EDT POCT GLUCOSE METER UNSOLICITED RESULTS Routine 07/28/2024 7:31 AM EDT CREATINE KINASE, TOTAL, PLASMA Routine 07/28/2024 3:55 AM EDT CBC WITH AUTO DIFFERENTIAL Routine 07/28/2024 3:55 AM EDT BASIC METABOLIC PANEL, PLASMA Routine 07/28/2024 3:55 AM EDT POCT GLUCOSE METER UNSOLICITED RESULTS Routine 07/27/2024 8:12 PM EDT POCT GLUCOSE METER UNSOLICITED RESULTS Routine 07/27/2024 4:13 PM EDT POCT GLUCOSE METER UNSOLICITED RESULTS Routine 07/27/2024 11:38 AM EDT POCT GLUCOSE METER UNSOLICITED RESULTS Routine 07/27/2024 7:45 AM EDT POCT GLUCOSE METER UNSOLICITED RESULTS Routine 07/26/2024 8:10 PM EDT POCT GLUCOSE METER UNSOLICITED RESULTS Routine 07/26/2024 4:48 PM EDT ECHO, ADULT TRANSTHORACIC COMPLETE Routine 07/26/2024 3:28 PM EDT POCT GLUCOSE METER UNSOLICITED RESULTS Routine 07/26/2024 11:35 AM EDT FUNGAL CULTURE, STERILE BODY FLUID (NOT CSF) AND JESUS Routine 07/26/2024 9:25 AM EDT BODY FLUID CULTURE AND GRAM STAIN Routine 07/26/2024 9:[address] GUIDED INJ ASP INTERMEDIATE JOINT OR BURSA LEFT Routine 07/26/2024 9:16 AM EDT BODY FLUID CELL COUNT W/ MANUAL DIFFERENTIAL Routine 07/26/2024 7:56 AM EDT BODY FLUID, CYTOSPIN, PATHOLOGIST INTERPRETATION Routine 07/26/2024 7:56 AM EDT VANCOMYCIN, PEAK, PLASMA Timed 07/26/2024 6:38 AM EDT CBC WITH AUTO DIFFERENTIAL Routine 07/26/2024 3:26 AM EDT BASIC METABOLIC PANEL, PLASMA Routine 07/26/2024 3:26 AM EDT VANCOMYCIN, TROUGH, PLASMA Timed 07/26/2024 3:25 AM EDT POCT GLUCOSE METER UNSOLICITED RESULTS Routine 07/25/2024 7:55 PM EDT POCT GLUCOSE METER UNSOLICITED RESULTS Routine 07/25/2024 3:59 PM EDT POCT GLUCOSE METER UNSOLICITED RESULTS Routine 07/25/2024 11:14 AM EDT POCT GLUCOSE METER UNSOLICITED RESULTS Routine 07/25/2024 7:26 AM EDT POCT GLUCOSE METER UNSOLICITED RESULTS Routine 07/24/2024 7:25 PM EDT POCT GLUCOSE METER UNSOLICITED RESULTS Routine 07/24/2024 4:00 PM EDT POCT GLUCOSE METER UNSOLICITED RESULTS Routine 07/24/2024 11:20 AM EDT VANCOMYCIN, PEAK, PLASMA Timed 07/24/2024 9:03 AM EDT POCT GLUCOSE METER UNSOLICITED RESULTS Routine 07/24/2024 7:45 AM EDT MORPHOLOGY Routine 07/24/2024 3:39 AM EDT MANUAL DIFFERENTIAL Routine 07/24/2024 3 :39 AM EDT CBC WITH AUTO DIFFERENTIAL Routine 07/24/2024 3:39 AM EDT VANCOMYCIN, TROUGH, PLASMA Timed 07/24/2024 3:39 AM EDT BASIC METABOLIC PANEL, PLASMA Routine 07/24/2024 3:39 AM EDT POCT GLUCOSE METER UNSOLICITED RESULTS Routine 07/23/2024 7:44 PM EDT POCT GLUCOSE METER UNSOLICITED RESULTS Routine 07/23/2024 4:36 PM EDT MN NEG PRESSURE WOUND THERAPY NON DME >50 SQ CM Routine 07/23/2024 12:41 PM EDT POCT GLUCOSE METER UNSOLICITED RESULTS Routine 07/23/2024 11:47 AM EDT POCT GLUCOSE METER UNSOLICITED RESULTS Routine 07/23/2024 8:44 AM EDT POCT GLUCOSE METER UNSOLICITED RESULTS Routine 07/22/2024 9:35 PM EDT SHERI AURIS SURVEILLANCE BY PCR Routine 07/22/2024 9:10 PM EDT POCT GLUCOSE METER UNSOLICITED RESULTS Routine 07/22/2024 8:21 PM EDT WOUND OSTOMY EVAL AND TREAT Routine 07/22/2024 4:49 PM EDT MULTI DRUG RESISTANCE TEST Routine 07/22/2024 4:30 PM EDT BLOOD CULTURE (AEROBIC/ANAEROBIC SET) STAT 07/22/2024 3:23 PM EDT BLOOD CULTURE (AEROBIC/ANAEROBIC SET) STAT 07/22/2024 1:00 PM EDT SEDIMENTATION RATE, AUTOMATED STAT 07/22/2024 12:25 PM EDT CBC WITH AUTO DIFFERENTIAL STAT 07/22/2024 12:25 PM EDT C-REACTIVE PROTEIN, PLASMA STAT 07/22/2024 12:25 PM EDT HEMOGLOBIN A1C Add-On 07/22/2024 12:25 PM EDT BASIC METABOLIC PANEL, PLASMA STAT 07/22/2024 12:25 PM EDT documented in this encounter Results * (ABNORMAL) POCT glucose meter (07/28/2024 11:38 AM EDT) POCT Glucose 123(H) 74 - 99 mg/dL 07/28/2024 11:42 AM EDT [facility] Comment:Accuracy of a glucos e result obtained from a capillary whole blood specimen relies upon adequate, non-compromised capillary blood flow. If the capillary glucose result is not consistent with the patient's clinical signs and symptoms, glucose testing should be repeated with either an arterial or venous sample on the glucometer or sent to the main labortory for testing. Comment 07/28/2024 11:42 AM EDT [facility]ALTHCARE LAB Tour Sales Representative ID Gaye Hodges 07/28/2024 11:42 AM EDT [facility] Device ID [id number] 07/28/2024 11:42 AM EDT [facility] Specimen Type POC Capillary 07/28/2024 11:42 AM EDT [facility] Blood Capillary blood specimen / Unknown 07/28/2024 11:38 AM EDT 07/28/2024 11:42 AM EDT us Jennifer Vallejo MD LAB POINT OF CAR E TEST DOCKED DEVICE UNSOLICITED RESULTS Final Result [facility] [address] [place] [address] * PICC SINGLE LUMEN (SMARTFORM LINK) (07/28/2024 10:31 AM EDT) Narrative Garcia Lan RN - 07/28/2024 10:31 AM EDT Garcia Lan RN 07/28/2024 10:34 AM Insert PICC line Date/Time: 07/28/2024 10:31 AM Performed by: Garcia Lan RN Authorized by: Jennifer Vallejo MD [place] Protocol: Written consent obtained?: Yes Risks and benefits: Risks, benefits and alternatives were discussed Consent given by: Patient Patient states understanding of procedure being performed: Yes Patient's understanding of procedure matches consent: Yes Procedure consent matches procedure scheduled: Yes Relevant documents present and verified: Yes Test results available and properly labeled: Yes Site marked: Yes Imaging studies available: Yes Patient identity confirmed: Verbally with patient Time out: Immediately prior to the procedure a time out was called Indications: Vascular access Local anesthetic: Lidocaine 1% without epinephrine Sedation: Patient sedated: No Preparation: Skin prepped with 2% chlorhexidine Skin prep agent dried: Skin prep agent completely dried prior to procedure Sterile barriers: All five maximal sterile barriers used - gloves, gown, cap, mask and large sterile sheet Hand hygiene: Hand hygiene performed prior to catheter insertion Orientation: Right Location (Adult): Basilic vein Site selection rationale: Previous PICC on left arm. Removed about 2 weeks ago. Left clavicle infection Patient position: Supine Catheter Lot #: [id number] Catheter manager pricing: [employer] Catheter placed: Single lumen Catheter size: 4 Fr Catheter trimmed length: 44 Catheter threaded length: 43 Vein placed in: SVC Catheter cm indwellin Catheter cm outside: 1 Placement confirmed by: Kaitlin 3CG technology Pre-procedure: Landmarks identified Ultrasound guidance: Yes Sterile ultrasound techniques: Sterile gel and sterile probe covers were used Number of attempts: 1 Post-procedure: Adhesive securement device and sterile access caps placed on each lumen Dressing applied: CHG tegaderm Assessment: Blood return through all ports and free fluid flow Patient tolerated the procedure well with no immediate complications.: Yes PICC kit educational material was given to the patient.: Yes Comments: All images downloaded to and verified in PACS. Limb alert bracelet applied to right wrist. Jennifer Vallejo MD IV THERAPY ORDERABLES Fi nal Result * (ABNORMAL) POCT glucose meter (07/28/2024 8:31 AM EDT) POCT Glucose 153(H) 74 - 99 mg/dL 07/28/2024 8:33 AM EDT [facility] Comment:Accuracy of a glucos e result obtained from a capillary whole blood specimen relies upon adequate, non-compromised capillary blood flow. If the capillary glucose result is not consistent with the patient's clinical signs and symptoms, glucose testing should be repeated with either an arterial or venous sample on the glucometer or sent to the main labortory for testing. Comment 07/28/2024 8:33 AM EDT [facility] Tour Sales Representative ID Gaye Hodges 07/28/2024 8:33 AM EDT [facility] Device ID [id number] 07/28/2024 8:33 AM EDT [facility]ALTH[facility]ARE LAB Specimen Type POC Capillary 07/28/2024 8:33 AM EDT [facility] Blood Capillary blood specimen / Unknown 07/28/2024 8:31 AM EDT 07/28/2024 8:33 AM EDT us Jennifer Vallejo MD LAB POINT OF CAR E TEST DOCKED DEVICE UNSOLICITED RESULTS Final Result Performing Organization Address City/State/[facility] Co de Phone Number [facility] [address] [place] [address] * POCT glucose meter (07/28/2024 7:31 AM EDT) [facility] POCT Glucose 76 74 - 99 mg/dL 07/28/2024 8:11 AM EDT [facility] Comment:Accuracy of a glucos e result obtained from a capillary whole blood specimen relies upon adequate, non-compromised capillary blood flow. If the capillary glucose result is not consistent with the patient's clinical signs and symptoms, glucose testing should be repeated with either an arterial or venous sample on the glucometer or sent to the main labortory for testing. Comment 07/28/2024 8:11 AM EDT [facility] Tour Sales Representative ID Gaye Hodges 07/28/2024 8:11 AM EDT [facility] Device ID [id number] 07/28/2024 8:11 AM EDT [facility]ARE LAB Specimen Type POC Capillary 07/28/2024 8:11 AM EDT [facility] Blood Capillary blood specimen / Unknown 07/28/2024 7:31 AM EDT 07/28/2024 8:11 AM EDT us Jennifer Vallejo MD LAB POINT OF CAR E TEST DOCKED DEVICE UNSOLICITED RESULTS Final Result Performing Organization Address City/[facility]/ZIP Co de Phone Number [facility] [address] [place] [address] * (ABNORMAL) Creatine Kinase (CK), Total (07/28/2024 3:55 AM EDT) Creatine Kinase, Plasma 24(L) 49 - 320 U/L 07/28/2024 4:39 AM EDT [facility] Blood Venous blood specimen / Unknown Venipuncture / Unknown 07/28/2024 3:55 AM EDT 07/28/2024 4:06 AM EDT us Jennifer Vallejo MD LAB BLOOD ORDERABLES Fin al Result Performing Organization Address City/[facility] Co de Phone Number [facility] [address] [place] [address] * Basic metabolic panel (07/28/2024 3:55 AM EDT) Glucose, Plasma 89 74 - 99 mg/dL 07/28/2024 4:39 AM EDT [facility] BUN, Plasma 9 7 - 21 mg/dL 07/28/2024 4:39 AM EDT [facility] Creatinine, Plasma 0.71 0.70 - 1.20 mg/dL 07/28/2024 4:39 AM EDT [facility] BUN/Creatinine Ratio 13 07/28/2024 4:39 AM EDT [facility] Sodium, Plasma 137 136 - 145 mmol/L 07/28/2024 4:39 AM EDT [facility] Potassium, Plasma 3.8 3.6 - 4.9 mmol/L 07/28/2024 4:39 AM EDT [facility] Chloride, Plasma 102 97 - 107 mmol/L 07/28/2024 4:39 AM EDT [facility] CO2, Plasma 26 22 - 29 mmol/L 07/28/2024 4:39 AM EDT [facility] Anion Gap 9 6 - 16 mmol/L 07/28/2024 4:39 AM EDT [facility] Total Calcium, Plasma 9.7 8.9 - 10.2 mg/dL 07/28/2024 4:39 AM EDT [facility] eGFRcr 111.8 mL/min/1.7 3m*2 07/28/2024 4:39 AM EDT [facility] Comment:Reported eGFRcr in m L/min/1.73m2 is based the CKD-EPI 2020 equation that does not use a race coefficient. Blood Venous blood specimen / Unknown Venipuncture / Unknown 07/28/2024 3:55 AM EDT 07/28/2024 4:06 AM EDT us Jennifer Vallejo MD LAB BLOOD ORDERABLES Fin al Result [facility] [address] [place] [address] * (ABNORMAL) CBC and differential (07/28/2024 3:55 AM EDT) WBC Count 4.71 3.70 - 10.30 10*3/uL LAB HEMATOLOGY METHOD 07/28/2024 4:18 AM EDT [facility] RBC Count 4.08(L) 4.60 - 6.10 10*6/uL LAB HEMATOLOGY METHOD 07/28/2024 4:18 AM EDT [facility] HGB 11.8(L) 13.7 - 17.5 g/dL LAB HEMATOLOGY METHOD 07/28/2024 4:18 AM EDT [facility] HCT 36.2(L) 40.0 - 51.0 % LAB HEMATOLOGY METHOD 07/28/2024 4:18 AM EDT [facility] Platelet Count 289 155 - 369 10*3/uL LAB HEMATOLOGY METHOD 07/28/2024 4:18 AM EDT [facility] MCV 89 79 - 98 fL LAB HEMATOLOGY METHOD 07/28/2024 4:18 AM EDT [facility] MCH 28.9 26.0 - 32.0 pg LAB HEMATOLOGY METHOD 07/28/2024 4:18 AM EDT [facility] MCHC 32.6 30.7 - 35.5 g/dL LAB HEMATOLOGY METHOD 07/28/2024 4:18 AM EDT [facility] RDW 16.0(H) 11.5 - 14.5 % LAB HEMATOLOGY METHOD 07/28/2024 4:18 AM EDT [facility] MPV 10.3 8.8 - 12.5 fL LAB HEMATOLOGY METHOD 07/28/2024 4:18 AM EDT [facility] nRBC 0.0 <=0.0 per 100 WBCs LAB HEMATOLOGY METHOD 07/28/2024 4:18 AM EDT [facility] Differential Type Automated LAB HEMATOLOGY METHOD 07/28/2024 4:18 AM EDT [facility] Neutrophils % 58 % LAB HEMATOLOGY METHOD 07/28/2024 4:18 AM EDT [facility] Lymphocytes % 28 % LAB HEMATOLOGY METHOD 07/28/2024 4:18 AM EDT [facility] Monocytes % 8 % LAB HEMATOLOGY METHOD 07/28/2024 4:18 AM EDT [facility] Eosinophils % 5 % LAB HEMATOLOGY METHOD 07/28/2024 4:18 AM EDT [facility] Basophils % 1 % LAB HEMATOLOGY METHOD 07/28/2024 4:18 AM EDT [facility] Immature Granulocytes % 0 % LAB HEMATOLOGY METHOD 07/28/2024 4:18 AM EDT [facility] Neutrophils Absolute 2.77 1.60 - 6.10 10*3/uL LAB HEMATOLOGY METHOD 07/28/2024 4:18 AM EDT [facility] Lymphocytes Absolute 1.30 1.20 - 3.90 10*3/uL LAB HEMATOLOGY METHOD 07/28/2024 4:18 AM EDT [facility] Monocytes Absolute 0.36 0.30 - 0.90 10*3/uL LAB HEMATOLOGY METHOD 07/28/2024 4:18 AM EDT [facility] Eosinophils Absolute 0.21 0.00 - 0.50 10*3/uL LAB HEMATOLOGY METHOD 07/28/2024 4:18 AM EDT [facility] Basophils Absolute 0.05 0.00 - 0.10 10*3/uL LAB HEMATOLOGY METHOD 07/28/2024 4:18 AM EDT [facility] Immature Granulocytes Absolute 0.02 0.00 - 0.06 10*3/uL LAB HEMATOLOGY METHOD 07/28/2024 4:18 AM EDT [facility] Blood Venous blood specimen / Unknown Venipuncture / Unknown 07/28/2024 3:55 AM EDT 07/28/2024 4:08 AM EDT Narrative [facility] - 07/28/2024 4:18 AM EDT Therapeutic decision making should be based on absolute values, rather than percentages. us Jennifer Vallejo MD LAB BLOOD ORDERABLES Fin al Result Performing Organization Address City/[facility]/ZIP Co de Phone Number [facility] [address] [place] [address] * POCT glucose meter (07/27/2024 8:12 PM EDT) POCT Glucose 94 74 - 99 mg/dL 07/27/2024 8:14 PM EDT [facility] Comment:Accuracy of a glucos e result obtained from a capillary whole blood specimen relies upon adequate, non-compromised capillary blood flow. If the capillary glucose result is not consistent with the patient's clinical signs and symptoms, glucose testing should be repeated with either an arterial or venous sample on the glucometer or sent to the main labortory for testing. Comment 07/27/2024 8:14 PM EDT [facility]ARE LAB Tour Sales Representative ID Criselda Freitas 07/27/2024 8:14 PM EDT [facility] Device ID [id number] 07/27/2024 8:14 PM EDT [facility] Specimen Type POC Capillary 07/27/2024 8:14 PM EDT [facility] Blood Capillary blood specimen / Unknown 07/27/2024 8:12 PM EDT 07/27/2024 8:14 PM EDT us Jennifer Vallejo MD LAB POINT OF CAR E TEST DOCKED DEVICE UNSOLICITED RESULTS Final Result Performing Organization Address City/[facility]/ZIP Co de Phone Number [facility] [address] [place] [address] * (ABNORMAL) POCT glucose meter (07/27/2024 4:13 PM EDT) POCT Glucose 105(H) 74 - 99 mg/dL 07/27/2024 4:17 PM EDT [facility] Comment:Accuracy of a glucos e result obtained from a capillary whole blood specimen relies upon adequate, non-compromised capillary blood flow. If the capillary glucose result is not consistent with the patient's clinical signs and symptoms, glucose testing should be repeated with either an arterial or venous sample on the glucometer or sent to the main labortory for testing. Comment 07/27/2024 4:17 PM EDT [facility] Tour Sales Representative ID Gaye Hodges 07/27/2024 4:17 PM EDT [facility] Device ID [id number] 07/27/2024 4:17 PM EDT [facility] Specimen Type POC Capillary 07/27/2024 4:17 PM EDT [facility] Blood Capillary blood specimen / Unknown 07/27/2024 4:13 PM EDT 07/27/2024 4:17 PM EDT Jennifer Vallejo MD LAB POINT OF CAR E TEST DOCKED DEVICE UNSOLICITED RESULTS Final Result Performing Organization Address City/State/[facility] Co de Phone Number [facility] [address] [place] [address] * (ABNORMAL) POCT glucose meter (07/27/2024 11:38 AM EDT) [facility] POCT Glucose 133(H) 74 - 99 mg/dL 07/27/2024 11:40 AM EDT [facility] Comment:Accuracy of a glucos e result obtained from a capillary whole blood specimen relies upon adequate, non-compromised capillary blood flow. If the capillary glucose result is not consistent with the patient's clinical signs and symptoms, glucose testing should be repeated with either an arterial or venous sample on the glucometer or sent to the main labortory for testing. Comment 07/27/2024 11:40 AM EDT [facility] Tour Sales Representative ID Gaye Hodges 07/27/2024 11:40 AM EDT [facility] Device ID [id number] 07/27/2024 11:40 AM EDT [facility] Specimen Type POC Capillary 07/27/2024 11:40 AM EDT [facility] Blood Capillary blood specimen / Unknown 07/27/2024 11:38 AM EDT 07/27/2024 11:40 AM EDT us Jennifer Vallejo MD LAB POINT OF CAR E TEST DOCKED DEVICE UNSOLICITED RESULTS Final Result Performing Organization Address [facility] Co de Phone Number [facility] [address] [place] [address] * (ABNORMAL) POCT glucose meter (07/27/2024 7:45 AM EDT) POCT Glucose 101(H) 74 - 99 mg/dL 07/27/2024 7:48 AM EDT [facility] Comment:Accuracy of a glucos e result obtained from a capillary whole blood specimen relies upon adequate, non-compromised capillary blood flow. If the capillary glucose result is not consistent with the patient's clinical signs and symptoms, glucose testing should be repeated with either an arterial or venous sample on the glucometer or sent to the main labortory for testing. Comment 07/27/2024 7:48 AM EDT [facility] Tour Sales Representative ID Gaye Hodges 07/27/2024 7:48 AM EDT [facility] Device ID [id number] 07/27/2024 7:48 AM EDT [facility] Specimen Type POC Capillary 07/27/2024 7:48 AM EDT [facility] Blood Capillary blood specimen / Unknown 07/27/2024 7:45 AM EDT 07/27/2024 7:48 AM EDT us Susannah Arevalo MD LAB POINT OF CARE TE ST DOCKED DEVICE UNSOLICITED RESULTS Final Result Performing Organization Address City/[facility] Co de Phone Number [facility] [address] [place] [address] * (ABNORMAL) POCT glucose meter (07/26/2024 8:10 PM EDT) POCT Glucose 111(H) 74 - 99 mg/dL 07/26/2024 8:11 PM EDT [facility] Comment:Accuracy of a glucos e result obtained from a capillary whole blood specimen relies upon adequate, non-compromised capillary blood flow. If the capillary glucose result is not consistent with the patient's clinical signs and symptoms, glucose testing should be repeated with either an arterial or venous sample on the glucometer or sent to the main labortory for testing. Comment 07/26/2024 8:11 PM EDT [facility] Tour Sales Representative ID Kraen Victor 8:11 PM EDT [facility] Device ID [id number] 07/26/2024 8:11 PM EDT [facility] Specimen Type POC Capillary 07/26/2024 8:11 PM EDT [facility] Blood Capillary blood specimen / Unknown 07/26/2024 8:10 PM EDT 07/26/2024 8:11 PM EDT Susannah Arevalo MD LAB POINT OF CARE TE ST DOCKED DEVICE UNSOLICITED RESULTS Final Result Performing Organization Address City/[facility] Co de Phone Number [facility] [address] [place] [address] * (ABNORMAL) POCT glucose meter (07/26/2024 4:48 PM EDT) [facility] POCT Glucose 109(H) 74 - 99 mg/dL 07/26/2024 4:56 PM EDT [facility] Comment:Accuracy of a glucos e result obtained from a capillary whole blood specimen relies upon adequate, non-compromised capillary blood flow. If the capillary glucose result is not consistent with the patient's clinical signs and symptoms, glucose testing should be repeated with either an arterial or venous sample on the glucometer or sent to the main labortory for testing. Comment 07/26/2024 4:56 PM EDT [facility] Tour Sales Representative ID Meghann Davidson 07/27/19 4:56 PM EDT [facility] Device ID [id number] 07/26/2024 4:56 PM EDT [facility] Specimen Type POC Capillary 07/26/2024 4:56 PM EDT [facility] Blood Capillary blood specimen / Unknown 07/26/2024 4:48 PM EDT 07/26/2024 4:56 PM EDT us Susannah Arevalo MD LAB POINT OF CARE TE ST DOCKED DEVICE UNSOLICITED RESULTS Final Result Performing Organization Address City/[facility]/ZIP Co de Phone Number [facility] [address] [place] [address] * ECHO, ADULT TRANSTHORACIC COMPLETE (07/26/2024 3:28 PM EDT) BSA 2.08 m2 [facility] Height 177.8 [facility] Weight 90.3 [facility] PA acc time 100 msec [facility] mean PAP 34 mmHg [facility] PA MN(ACCEL) 36.2 mmHg [facility] PA acc slope 793.8 cm/s2 [facility] MV E Vmax 71.8 cm/s [facility] MV A Vmax 119.5 cm/s [facility] MV E/A 0.6 cm/s [facility] RV s' Roland 15.9 cm/s [facility] LAV(MOD-2ch) 77 mL [facility] LAV(MOD-bp) Indexed 32 mL/m2 [facility] LAV(MOD-4ch) 58 mL [facility] LVIDd 42 mm [facility] IVSd 12 mm [facility] LVPWd 9 mm [facility] LV MASS(C)D 146 g [facility] ISCV [facility] CV ECHO LV MASS INDEX 70 g/m2 [facility] LV RWT 0.50 mm [facility] ISCV LVIDs 38 mm [facility] LA dimension 41 mm [facility] Ao Root Diam 33 mm [facility] LV EDV(MOD-4ch) 120 mL [facility] LV ESV(MOD4ch) 76 mL [facility] EF(MOD-sp4) 37 % [facility] Anatomical Region Laterality Modality Echocardiography Narrative 07/26/2024 4:15 PM EDT The left ventricle is normal size. The LVEF is variable due to arrhythmia (frequent ectopy) but is visually estimated at 25 - 40%. The diastolic function is abnormal but cannot be graded. The septal motion is most consistent with a conduction abnormality. No pericardial effusion. All cardiac valves were reasonably well interrogated with 2D imaging and/or Doppler assessment and no significant valve regurgitation or stenosis is seen. There is no recent study available for direct [id number] comparison. Left Ventricle The left ventricle is normal size. There is normal left ventricular myocardial thickness and mass. No left ventricular mass or thrombus is seen. The LVEF is variable due to arrhythmia but is visually estimated at 25 - 40%. The diastolic function is abnormal but cannot be graded. The septal motion is most consistent with a conduction abnormality. Right Ventricle The right ventricle is normal in size. The right ventricular systolic function is normal. The spectral Doppler envelope of TR is not adequate for calculating the right ventricular systolic pressure (RVSP). Based upon other 2D and Doppler features, the RVSP is probably normal or at most mildly elevated. Left Atrium The left atrial size is normal with an indexed volume of 16-34 mL/m2. The interatrial septum is intact with no evidence for an atrial septal defect. Right Atrium The right atrial size is normal. IVC/SVC Based on the IVC size and respiratory variation, the estimated right atrial pressure is 3mmHg. Mitral Valve The mitral valve leaflets are normal in appearance with no evidence of mitral valve prolapse. There is no mitral valve vegetation. There is mild mitral regurgitation. There is no mitral stenosis. Tricuspid Valve The tricuspid valve is normal in appearance. There is no tricuspid valve vegetation. There is trace tricuspid regurgitation. There is no tricuspid stenosis. Aortic Valve The aortic valve appears to be trileaflet. There is calcification of the aortic valve leaflets. There is no aortic valve vegetation. There is no valvular regurgitation. There is no hemodynamically significant valvular aortic stenosis. Pulmonic Valve The pulmonic valve is grossly normal. There is no pulmonic valve vegetation. There is trace pulmonic regurgitation. There is no pulmonic stenosis. Pericardium No pericardial effusion. Great Vessels The aortic root is normal in size. The main pulmonary artery is normal in size. Study Details A complete transthoracic echocardiogram using two-dimensional (2D), m-mode, color and spectral flow Doppler imaging was performed. The study was technically difficult due to patient's clinical status. Height: 177.8 cm. Weight: 90.3 kg. BSA: 2.08 m2. Study Recommendation All cardiac valves were reasonably well interrogated with 2D imaging and/or Doppler assessment and no significant valve regurgitation or stenosis is seen. There is no recent study available for direct [id number] comparison. us Susannah Arevalo MD CV ECHO PROCEDURES Final Result * (ABNORMAL) POCT glucose meter (07/26/2024 11:35 AM EDT) [facility] POCT Glucose 105(H) 74 - 99 mg/dL 07/26/2024 11:41 AM EDT [facility] Comment:Accuracy of a glucos e result obtained from a capillary whole blood specimen relies upon adequate, non-compromised capillary blood flow. If the capillary glucose result is not consistent with the patient's clinical signs and symptoms, glucose testing should be repeated with either an arterial or venous sample on the glucometer or sent to the main labortory for testing. Comment 07/26/2024 11:41 AM EDT [facility] Tour Sales Representative ID Meghann Davidson 07/27/19 11:41 AM EDT [facility] LAB Device ID [id number] 07/26/2024 11:41 AM EDT [facility] Specimen Type POC Capillary 07/26/2024 11:41 AM EDT [facility] Blood Capillary blood specimen / Unknown 07/26/2024 11:35 AM EDT 07/26/2024 11:41 AM EDT us Susannah Arevalo MD LAB POINT OF CARE TE ST DOCKED DEVICE UNSOLICITED RESULTS Final Result Performing Organization Address City/[facility]/ZIP Co de Phone Number [facility] [address] [place] [address] * Fungal Culture, Sterile Body Fluid (NOT CSF) and JESUS (07/26/2024 9:25 AM EDT) Culture No Fungal Growth at 3 Weeks 08/17/2024 7:00 AM EDT [facility] JESUS No fungal elements seen 08/17/2024 7:00 AM EDT [facility] Joint Fluid Joint fluid specimen / Unknown Non-blood Collection / Unknown 07/26/2024 9:25 AM EDT 07/26/2024 9:25 AM EDT us Susannah Arevalo MD [facility] Final Result [facility] [address] [place] [address] * Body Fluid Culture and Gram Stain (07/26/2024 9:25 AM EDT) Culture No growth at day 4 2024 9:13 AM EDT [facility] Gram Stain Result Rare Polymorphonuclear leukocytes 07/29/2024 9:13 AM EDT [facility] Gram Stain Result No organisms seen 07/29/2024 9:13 AM EDT [facility] Joint Fluid Joint fluid specimen / Unknown Non-blood Collection / Unknown 07/26/2024 9:25 AM EDT 07/26/2024 9:25 AM EDT Susannah Arevalo MD LAB [facility] Final Result [facility] [address] [place] [address] * CT Guided Inj Asp Intermediate Joint or Bursa Left (07/26/2024 9:16 AM EDT) Anatomical Region Laterality Modality Left Computed Tomogra phy Impressions 07/26/2024 9:31 AM EDT Technically successful CT-guided aspiration of the left sternoclavicular joint. A scant amount of serosanguineous fluid and small clots were aspirated, and diluted with 1.5 to 2 mL of sterile saline. CRITICAL RESULT: No. COMMUNICATION: Per this written report. Drafted by Jennifer Clemens MD on 07/26/2024 9:27 AM Final report signed by Jennifer Clemens MD on 07/26/2024 9:31 AM Narrative 07/26/2024 9:31 AM EDT CLINICAL INDICATION: JOINT INFECTION COMPARISON: CT chest from 07/21/2024 FINDINGS: Irregularity of the left sternoclavicular joint with overlying mild soft tissue edema. Coronary calcifications. No acute finding the partially imaged lungs. PROCEDURE: Non Contrast CT guided aspiration of the left sternoclavicular joint. Potential benefits, alternatives and risks (including bleeding, infection and possible damage to the adjacent soft tissues) were explained to the patient. The patient voiced understanding and agreed to give verbal and written consent for the procedure to be completed. Informed consent was then signed and placed into the patient's medical chart. Appropriate time out was performed to confirm patient identity and planned procedure and side. 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 The patient was prepped and draped in the usual sterile fashion. Local anesthetic with 1% lidocaine was provided and the subcutaneous tissues were infiltrated. Under CT guidance, an 18-gauge guide needle was advanced to the left sternoclavicular joint. A scant amount of serosanguineous fluid and small clots were aspirated. Upon completion of the procedure, the needle was removed and hemostasis was achieved at the procedural site. The patient tolerated the procedure well, and was transferred to the recovery area in good condition. Total DLP (Dose-Length Product): 393.44 mGy.cm. Please note: The reported value represents the total of one or more individual components during the CT acquisition on this date and at this time, and as such, the same value may appear in more than one CT report depending on the interpreting/reporting physicians. Procedure Note Jennifer Clemens MD - 07/26/2024 CLINICAL INDICATION: JOINT INFECTION COMPARISON: CT chest from 07/21/2024 FINDINGS: Irregularity of the left sternoclavicular joint with overlying mild softtissue edema. Coronary calcifications. No acute finding the partiallyimaged lungs. PROCEDURE: Non Contrast CT guided aspiration of the left sternoclavicular joint.Potential benefits, alternatives and risks (including bleeding, infectionand possible damage to the adjacent soft tissues) were explained to thepatient. The patient voiced understanding and agreed to give verbal andwritten consent for the procedure to be completed. Informed consent wasthen signed and placed into the patient's medical chart. Appropriate timeout was performed to confirm patient identity and planned procedure andside. TECHNIQUE: The patient was placed on the CT table in the supine position, and scoutCT images were obtained to evaluate for planning. The patient was preppedand draped in the usual sterile fashion. Local anesthetic with 1%lidocaine was provided and the subcutaneous tissues were infiltrated.Under CT guidance, an 18-gauge guide needle was advanced to the leftsternoclavicular joint. A scant amount of serosanguineous fluid and smallclots were aspirated. Upon completion of the procedure, the needle wasremoved and hemostasis was achieved at the procedural site. The patient tolerated the procedure well, and was transferred to therecovery area in good condition. Total DLP (Dose-Length Product): 393.44 mGy.cm. Please note: The reportedvalue represents the total of one or more individual components during theCT acquisition on this date and at this time, and as such, the same valuemay appear in more than one CT report depending on theinterpreting/reporting physicians. IMPRESSION: Technically successful CT-guided aspiration of the left sternoclavicularjoint. A scant amount of serosanguineous fluid and small clots were aspirated,and diluted with 1.5 to 2 mL of sterile saline. CRITICAL RESULT: No. COMMUNICATION: Per this written report. 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 Recent MRSA bacteremia. Hx of SCC of neck s/p segmental mandibulectomy, left radical neck dissection LAB HEMATOLOGY METHOD 07/27/2024 5:59 PM EDT [facility] Interpretation , Body Fluid Bloody fluid with no evidence of malignancy. A resident was involved in the service. I attest I examined the relevant preparations for the specimens and confirmed the diagnosis or interpretation. 07/27/2024 5:59 PM EDT [facility] Pathologist Signature, Body Fluid 07/27/2024 5:59 PM EDT [facility] Comment:Reviewed by: Evangelista Sosa MD LAB CP ASR DISCLAIMER Yes 07/27/2024 5:59 PM EDT [facility] Joint Fluid Drainage fluid specimen / Unknown 07/26/2024 7:56 AM EDT 07/26/2024 9:18 AM EDT Susannah Arevalo MD LAB BODY FLUIDS AND STOOLS JIMENEZ VERMA Final Result [facility] [address] [place] [address] * (ABNORMAL) Body Fluid Cell Count w/ Diff (07/26/2024 7:56 AM EDT) Color, Body fluid Red LAB HEMATOLOGY METHOD 07/26/2024 3:16 PM EDT [facility] Appearance, Body fluid Cloudy(A) LAB HEMATOLOGY METHOD 07/26/2024 3:16 PM EDT [facility] Volume, Body fluid 0.2 cc LAB HEMATOLOGY METHOD 07/26/2024 3:16 PM EDT [facility] Fluid Container Specimen received in miscellaneous container LAB HEMATOLOGY METHOD 07/26/2024 3:16 PM EDT [facility] Red Blood Cell Count, Body fluid 36,000 uL LAB HEMATOLOGY METHOD 07/26/2024 3:16 PM EDT [facility] Total Nucleated Cell Count, Body fluid 79 uL LAB HEMATOLOGY METHOD 07/26/2024 3:16 PM EDT [facility] Neutrophils %, Body fluid 88 % LAB HEMATOLOGY METHOD 07/26/2024 3:16 PM EDT [facility] Lymphocytes %, Body fluid 5 % LAB HEMATOLOGY METHOD 07/26/2024 3:16 PM EDT [facility] Monocytes/Macr ophages %, Body fluid 5 % LAB HEMATOLOGY METHOD 07/26/2024 3:16 PM EDT [facility] Eosinophils %, Body fluid 2 % LAB HEMATOLOGY METHOD 07/26/2024 3:16 PM EDT [facility] Lining/Mesothe lial Cells %, Body fluid 0 % LAB HEMATOLOGY METHOD 07/26/2024 3:16 PM EDT [facility] Neutrophils Absolute (PMN), Body fluid 70 uL LAB HEMATOLOGY METHOD 07/26/2024 3:16 PM EDT [facility] Lymphocytes Absolute, Body fluid 4 uL LAB HEMATOLOGY METHOD 07/26/2024 3:16 PM EDT [facility] Monocytes/Macr ophages Absolute, Body fluid 4 uL LAB HEMATOLOGY METHOD 07/26/2024 3:16 PM EDT [facility] Eosinophils Absolute, Body fluid 2 uL LAB HEMATOLOGY METHOD 07/26/2024 3:16 PM EDT [facility] Basophils Absolute, Body fluid 0 uL LAB HEMATOLOGY METHOD 07/26/2024 3:16 PM EDT [facility] Lining/Mesothe lial Cells Absolute, Body fluid 0 uL LAB HEMATOLOGY METHOD 07/26/2024 3:16 PM EDT [facility] Comment, Body fluid None LAB HEMATOLOGY METHOD 07/26/2024 3:16 PM EDT [facility] Basophils %, Body fluid 0 % LAB HEMATOLOGY METHOD 07/26/2024 3:16 PM EDT [facility] Joint Fluid Drainage fluid specimen / Unknown 07/26/2024 7:56 AM EDT 07/26/2024 9:18 AM EDT Susannah Arevalo MD LAB BODY FLUIDS AND STOOLS ORDERABLES NO SPECIMEN TYPE/SOURCE Final Result Performing Organization Address City/[facility]/ZIP Co de Phone Number [facility] [address] [place] [address] * Vancomycin, Peak, Plasma Please draw ~2 hours after 0400 dose of vancomycin finishes infusing on Wednesday 07/26. Consider obtaining level via peripheral stick. If peripheral stick is not feasible, pleaseensure that line is flushed well prior to drawi... (07/26/2024 6:38 AM EDT) Vancomycin, Peak, Plasma 24.3 20.0 - 40.0 ug/mL 07/26/2024 7:17 AM EDT [facility] Blood Venous blood specimen / Unknown Venipuncture / Unknown 07/26/2024 6:38 AM EDT 07/26/2024 6:43 AM EDT Narrative [facility] - 07/26/2024 7:17 AM EDT Therapeutic Peak level: 20-40ug/mL Supra-therapeutic Peak level: >40 ug/mL us Susannah Arevalo MD LAB BLOOD ORDERABLES Final Resu lt [facility] [address] [place] [address] * (ABNORMAL) Basic metabolic panel (07/26/2024 3:26 AM EDT) Glucose, Plasma 96 74 - 99 mg/dL 07/26/2024 4:01 AM EDT [facility] BUN, Plasma 8 7 - 21 mg/dL 07/26/2024 4:01 AM EDT [facility] Creatinine, Plasma 0.60(L) 0.70 - 1.20 mg/dL 07/26/2024 4:01 AM EDT [facility] BUN/Creatinine Ratio 13 07/26/2024 4:01 AM EDT [facility] Sodium, Plasma 139 136 - 145 mmol/L 07/26/2024 4:01 AM EDT [facility] Potassium, Plasma 3.7 3.6 - 4.9 mmol/L 07/26/2024 4:01 AM EDT [facility] Chloride, Plasma 103 97 - 107 mmol/L 07/26/2024 4:01 AM EDT [facility] CO2, Plasma 26 22 - 29 mmol/L 07/26/2024 4:01 AM EDT [facility] Anion Gap 10 6 - 16 mmol/L 07/26/2024 4:01 AM EDT [facility] Total Calcium, Plasma 9.1 8.9 - 10.2 mg/dL 07/26/2024 4:01 AM EDT [facility] eGFRcr 117.6 mL/min/1.7 3m*2 07/26/2024 4:01 AM EDT [facility] Comment:Reported eGFRcr in m L/min/1.73m2 is based the CKD-EPI 2020 equation that does not use a race coefficient. Blood Venous blood specimen / Unknown Venipuncture / Unknown 07/26/2024 3:26 AM EDT 07/26/2024 3:32 AM EDT us Susannah Arevalo MD LAB BLOOD ORDERABLES Final Resu lt [facility] [address] [place] [address] * (ABNORMAL) CBC and differential (07/26/2024 3:26 AM EDT) WBC Count 4.16 3.70 - 10.30 10*3/uL LAB HEMATOLOGY METHOD 07/26/2024 3:43 AM EDT [facility] RBC Count 3.77(L) 4.60 - 6.10 10*6/uL LAB HEMATOLOGY METHOD 07/26/2024 3:43 AM EDT [facility] HGB 11.1(L) 13.7 - 17.5 g/dL LAB HEMATOLOGY METHOD 07/26/2024 3:43 AM EDT [facility] HCT 32.9(L) 40.0 - 51.0 % LAB HEMATOLOGY METHOD 07/26/2024 3:43 AM EDT [facility] Platelet Count 253 155 - 369 10*3/uL LAB HEMATOLOGY METHOD 07/26/2024 3:43 AM EDT [facility] MCV 87 79 - 98 fL LAB HEMATOLOGY METHOD 07/26/2024 3:43 AM EDT [facility] MCH 29.4 26.0 - 32.0 pg LAB HEMATOLOGY METHOD 07/26/2024 3:43 AM EDT [facility] MCHC 33.7 30.7 - 35.5 g/dL LAB HEMATOLOGY METHOD 07/26/2024 3:43 AM EDT [facility] RDW 16.2(H) 11.5 - 14.5 % LAB HEMATOLOGY METHOD 07/26/2024 3:43 AM EDT [facility] MPV 10.4 8.8 - 12.5 fL LAB HEMATOLOGY METHOD 07/26/2024 3:43 AM EDT [facility] nRBC 0.0 <=0.0 per 100 WBCs LAB HEMATOLOGY METHOD 07/26/2024 3:43 AM EDT [facility] Differential Type Automated LAB HEMATOLOGY METHOD 07/26/2024 3:43 AM EDT [facility] Neutrophils % 54 % LAB HEMATOLOGY METHOD 07/26/2024 3:43 AM EDT [facility] Lymphocytes % 27 % LAB HEMATOLOGY METHOD 07/26/2024 3:43 AM EDT [facility] Monocytes % 10 % LAB HEMATOLOGY METHOD 07/26/2024 3:43 AM EDT [facility] Eosinophils % 8 % LAB HEMATOLOGY METHOD 07/26/2024 3:43 AM EDT [facility] Basophils % 1 % LAB HEMATOLOGY METHOD 07/26/2024 3:43 AM EDT [facility] Immature Granulocytes % 0 % LAB HEMATOLOGY METHOD 07/26/2024 3:43 AM EDT [facility] Neutrophils Absolute 2.25 1.60 - 6.10 10*3/uL LAB HEMATOLOGY METHOD 07/26/2024 3:43 AM EDT [facility] Lymphocytes Absolute 1.11(L) 1.20 - 3.90 10*3/uL LAB HEMATOLOGY METHOD 07/26/2024 3:43 AM EDT [facility] Monocytes Absolute 0.43 0.30 - 0.90 10*3/uL LAB HEMATOLOGY METHOD 07/26/2024 3:43 AM EDT [facility] Eosinophils Absolute 0.33 0.00 - 0.50 10*3/uL LAB HEMATOLOGY METHOD 07/26/2024 3:43 AM EDT [facility] Basophils Absolute 0.03 0.00 - 0.10 10*3/uL LAB HEMATOLOGY METHOD 07/26/2024 3:43 AM EDT [facility] Immature Granulocytes Absolute 0.01 0.00 - 0.06 10*3/uL LAB HEMATOLOGY METHOD 07/26/2024 3:43 AM EDT [facility] Blood Venous blood specimen / Unknown Venipuncture / Unknown 07/26/2024 3:26 AM EDT 07/26/2024 3:32 AM EDT Narrative [facility] - 07/26/2024 3:43 AM EDT Therapeutic decision making should be based on absolute values, rather than percentages. us Susannah Arevalo MD LAB BLOOD ORDERABLES Final Resu lt [facility] [address] [place] [address] * Vancomycin, Trough, Plasma Please draw ~30 minutes prior to dose due at 0400 on Wednesday 07/26. Please do NOT hold dose awaiting level to return.Consider obtaining level via peripheral stick. If peripheral stick is not feasible, please ensure that li... (07/26/2024 3:25 AM EDT) Pathologist [facility] Vancomycin, Trough, Plasma 17.5 10.0 - 20.0 ug/mL 07/26/2024 4:10 AM EDT [facility] Blood Venous blood specimen / Unknown Venipuncture / Unknown 07/26/2024 3:25 AM EDT 07/26/2024 3:32 AM EDT Narrative [facility] - 07/26/2024 4:10 AM EDT Therapeutic Trough level: 10-20ug/mL Supra-therapeutic Trough level: >20 ug/mL us Susannah Arevalo MD LAB BLOOD ORDERABLES Final Resu lt Performing Organization Address City/[facility]/ZIP Co de Phone Number [facility] [address] [place] [address] * (ABNORMAL) POCT glucose meter (07/25/2024 7:55 PM EDT) POCT Glucose 102(H) 74 - 99 mg/dL 07/25/2024 7:57 PM EDT [facility] Comment:Accuracy of a glucos e result obtained from a capillary whole blood specimen relies upon adequate, non-compromised capillary blood flow. If the capillary glucose result is not consistent with the patient's clinical signs and symptoms, glucose testing should be repeated with either an arterial or venous sample on the glucometer or sent to the main labortory for testing. Comment 07/25/2024 7:57 PM EDT [facility]ALTH[facility]ARE LAB Tour Sales Representative ID Karen Victor 7:57 PM EDT [facility] Device ID [id number] 07/25/2024 7:57 PM EDT [facility]ALTH[facility]ARE LAB Specimen Type POC Capillary 07/25/2024 7:57 PM EDT [facility] Blood Capillary blood specimen / Unknown 07/25/2024 7:55 PM EDT 07/25/2024 7:57 PM EDT us Susannah Arevalo MD LAB POINT OF CARE TE ST DOCKED DEVICE UNSOLICITED RESULTS Final Result Performing Organization Address City/[facility]/ZIP Co de Phone Number [facility] [address] [place] [address] * (ABNORMAL) POCT glucose meter (07/25/2024 3:59 PM EDT) [facility] POCT Glucose 111(H) 74 - 99 mg/dL 07/25/2024 7:37 PM EDT [facility] Comment:Accuracy of a glucos e result obtained from a capillary whole blood specimen relies upon adequate, non-compromised capillary blood flow. If the capillary glucose result is not consistent with the patient's clinical signs and symptoms, glucose testing should be repeated with either an arterial or venous sample on the glucometer or sent to the main labortory for testing. Comment 07/25/2024 7:37 PM EDT [facility] Tour Sales Representative ID Anselmo Alvarez 07/26/19 7:37 PM EDT [facility]ALTH[facility]ARE LAB Device ID [id number] 07/25/2024 7:37 PM EDT [facility]ALTH[facility]ARE LAB Specimen Type POC Capillary 07/25/2024 7:37 PM EDT [facility] Blood Capillary blood specimen / Unknown 07/25/2024 3:59 PM EDT 07/25/2024 7:37 PM EDT Susannah Arevalo MD LAB POINT OF CARE TE ST DOCKED DEVICE UNSOLICITED RESULTS Final Result Performing Organization Address City/State/[facility] Co de Phone Number [facility] [address] [place] [address] * POCT glucose meter (07/25/2024 11:14 AM EDT) [facility] POCT Glucose 86 74 - 99 mg/dL 07/25/2024 7:34 PM EDT [facility] Comment:Accuracy of a glucos e result obtained from a capillary whole blood specimen relies upon adequate, non-compromised capillary blood flow. If the capillary glucose result is not consistent with the patient's clinical signs and symptoms, glucose testing should be repeated with either an arterial or venous sample on the glucometer or sent to the main labortory for testing. Comment 07/25/2024 7:34 PM EDT [facility] Tour Sales Representative ID Anselmo Alvarez 07/26/19 7:34 PM EDT [facility] Device ID [id number] 07/25/2024 7:34 PM EDT [facility] Specimen Type POC Capillary 07/25/2024 7:34 PM EDT [facility] Blood Capillary blood specimen / Unknown 07/25/2024 11:14 AM EDT 07/25/2024 7:34 PM EDT us Susannah Arevalo MD LAB POINT OF CARE TE ST DOCKED DEVICE UNSOLICITED RESULTS Final Result Performing Organization Address [facility] de Phone Number [facility] [address] [place] [address] * POCT glucose meter (07/25/2024 7:26 AM EDT) [facility] POCT Glucose 74 74 - 99 mg/dL 07/25/2024 7:18 PM EDT [facility] Comment:Accuracy of a glucos e result obtained from a capillary whole blood specimen relies upon adequate, non-compromised capillary blood flow. If the capillary glucose result is not consistent with the patient's clinical signs and symptoms, glucose testing should be repeated with either an arterial or venous sample on the glucometer or sent to the main labortory for testing. Comment 07/25/2024 7:18 PM EDT [facility]ALTH[facility]ARE LAB Tour Sales Representative ID Anselmo Alvarez 07/26/19 7:18 PM EDT HEALTH[facility]ARE LAB Device ID [id number] 07/25/2024 7:18 PM EDT [facility]ALTH[facility]ARE LAB Specimen Type POC Capillary 07/25/2024 7:18 PM EDT [facility] Blood Capillary blood specimen / Unknown 07/25/2024 7:26 AM EDT 07/25/2024 7:18 PM EDT us Susannah Arevalo MD LAB POINT OF CARE TE ST DOCKED DEVICE UNSOLICITED RESULTS Final Result Performing Organization Address [facility] [facility] Co de Phone Number [facility] [address] [place] [address] * POCT glucose meter (07/24/2024 7:25 PM EDT) [facility] POCT Glucose 93 74 - 99 mg/dL 07/24/2024 7:26 PM EDT [facility] Comment:Accuracy of a glucos e result obtained from a capillary whole blood specimen relies upon adequate, non-compromised capillary blood flow. If the capillary glucose result is not consistent with the patient's clinical signs and symptoms, glucose testing should be repeated with either an arterial or venous sample on the glucometer or sent to the main labortory for testing. Comment 07/24/2024 7:26 PM EDT [facility]ARE [facility] Tour Sales Representative ID Veronica Peralta 07/24/2024 7:26 PM EDT [facility]ALTH[facility]ARE LAB Device ID [id number] 07/24/2024 7:26 PM EDT [facility]ALTH[facility]ARE LAB Specimen Type POC Capillary 07/24/2024 7:26 PM EDT [facility]ALTH[facility] Blood Capillary blood specimen / Unknown 07/24/2024 7:25 PM EDT 07/24/2024 7:26 PM EDT us Susannah Arevalo MD LAB POINT OF CARE TE ST DOCKED DEVICE UNSOLICITED RESULTS Final Result Performing Organization Address City/[facility]/ZIP Co de Phone Number [facility] [address] [place] [address] * POCT glucose meter (07/24/2024 4:00 PM EDT) [facility] POCT Glucose 95 74 - 99 mg/dL 07/24/2024 4:06 PM EDT [facility] Comment:Accuracy of a glucos e result obtained from a capillary whole blood specimen relies upon adequate, non-compromised capillary blood flow. If the capillary glucose result is not consistent with the patient's clinical signs and symptoms, glucose testing should be repeated with either an arterial or venous sample on the glucometer or sent to the main labortory for testing. Comment 07/24/2024 4:06 PM EDT [facility]ALTH[facility]ARE LAB Tour Sales Representative ID Anselmo Alvarez 07/25/19 4:06 PM EDT [facility]ALTHCARE LAB Device ID [id number] 07/24/2024 4:06 PM EDT [facility]ALTH[facility]ARE LAB Specimen Type POC Capillary 07/24/2024 4:06 PM EDT [facility] Blood Capillary blood specimen / Unknown 07/24/2024 4:00 PM EDT 07/24/2024 4:06 PM EDT us Susannah Arevalo MD LAB POINT OF CARE TE ST DOCKED DEVICE UNSOLICITED RESULTS Final Result [facility] [address] [place] [address] * POCT glucose meter (07/24/2024 11:20 AM EDT) POCT Glucose 85 74 - 99 mg/dL 07/24/2024 11:24 AM EDT [facility] Comment:Accuracy of a glucos e result obtained from a capillary whole blood specimen relies upon adequate, non-compromised capillary blood flow. If the capillary glucose result is not consistent with the patient's clinical signs and symptoms, glucose testing should be repeated with either an arterial or venous sample on the glucometer or sent to the main labortory for testing. Comment 07/24/2024 11:24 AM EDT [facility]ALTHCARE [facility] Tour Sales Representative ID Anselmo Alvarez 07/25/19 11:24 AM EDT [facility]ALTHCARE LAB Device ID [id number] 07/24/2024 11:24 AM EDT [facility]ALTHCARE LAB Specimen Type POC Capillary 07/24/2024 11:24 AM EDT [facility] Blood Capillary blood specimen / Unknown 07/24/2024 11:20 AM EDT 07/24/2024 11:24 AM EDT us Susannah Arevalo MD LAB POINT OF CARE TE ST DOCKED DEVICE UNSOLICITED RESULTS Final Result [facility] [address] [place] [address] * Vancomycin, Peak, Plasma Level 2 of 2. Please draw ~2 hours after 07/24 0400 dose of vancomycin finishes infusing. Consider obtaining level via peripheral stick. If peripheral stick is not feasible, please ensure that line is flushed well prior to... (07/24/2024 9:03 AM EDT) Vancomycin, Peak, Plasma 28.1 20.0 - 40.0 ug/mL 07/24/2024 9:51 AM EDT [facility] Blood Venous blood specimen / Unknown Venipuncture / Unknown 07/24/2024 9:03 AM EDT 07/24/2024 9:12 AM EDT Narrative [facility] - 07/24/2024 9:51 AM EDT Therapeutic Peak level: 20-40ug/mL Supra-therapeutic Peak level: >40 ug/mL us Susannah Arevalo MD LAB BLOOD ORDERABLES Final Resu lt Performing Organization Address [facility] Co de Phone Number [facility] [address] [place] [address] * POCT glucose meter (07/24/2024 7:45 AM EDT) Pathologist [facility] POCT Glucose 81 74 - 99 mg/dL 07/24/2024 7:51 AM EDT [facility] Comment:Accuracy of a glucos e result obtained from a capillary whole blood specimen relies upon adequate, non-compromised capillary blood flow. If the capillary glucose result is not consistent with the patient's clinical signs and symptoms, glucose testing should be repeated with either an arterial or venous sample on the glucometer or sent to the main labortory for testing. Comment 07/24/2024 7:51 AM EDT [facility]ALTHCARE LAB Tour Sales Representative ID Anselmo Alvarez 07/25/19 7:51 AM EDT HEALTHCARE LAB Device ID [id number] 07/24/2024 7:51 AM EDT [facility] Specimen Type POC Capillary 07/24/2024 7:51 AM EDT [facility] Blood Capillary blood specimen / Unknown 07/24/2024 7:45 AM EDT 07/24/2024 7:51 AM EDT us Susannah Arevalo MD LAB POINT OF CARE TE ST DOCKED DEVICE UNSOLICITED RESULTS Final Result Performing Organization Address [facility] Co de Phone Number [facility] [address] [place] [address] * Morphology (07/24/2024 3:39 AM EDT) RBC Morphology RBC Morphology Consistent with Indices and RDW LAB HEMATOLOGY METHOD 07/24/2024 5:27 AM EDT [facility] Platelet Estimate Platelet smear estimate consistent with automated count LAB HEMATOLOGY METHOD 07/24/2024 5:27 AM EDT [facility] Blood Venous blood specimen / Unknown Venipuncture / Unknown 07/24/2024 3:39 AM EDT 07/24/2024 3:44 AM EDT us Susannah Arevalo MD LAB BLOOD ORDERABLES Final Resu lt [facility] [address] [place] [address] * (ABNORMAL) Manual Differential (07/24/2024 3:39 AM EDT) Blasts % 0 % LAB HEMATOLOGY METHOD 07/24/2024 5:27 AM EDT [facility] Promyelocytes % 0 % LAB HEMATOLOGY METHOD 07/24/2024 5:27 AM EDT [facility] Myelocytes % 0 % LAB HEMATOLOGY METHOD 07/24/2024 5:27 AM EDT [facility] Metamyelocytes % 0 % LAB HEMATOLOGY METHOD 07/24/2024 5:27 AM EDT [facility] Neutrophils % 58 % LAB HEMATOLOGY METHOD 07/24/2024 5:27 AM EDT [facility] Lymphocytes % 20 % LAB HEMATOLOGY METHOD 07/24/2024 5:27 AM EDT [facility] Reactive Lymphocytes % 1 % LAB HEMATOLOGY METHOD 07/24/2024 5:27 AM EDT [facility] Monocytes % 5 % LAB HEMATOLOGY METHOD 07/24/2024 5:27 AM EDT [facility] Eosinophils % 14 % LAB HEMATOLOGY METHOD 07/24/2024 5:27 AM EDT [facility] Basophils % 2 % LAB HEMATOLOGY METHOD 07/24/2024 5:27 AM EDT [facility] Blasts Absolute 0.00 10*3/UL LAB HEMATOLOGY METHOD 07/24/2024 5:27 AM EDT [facility] Promyelocytes Absolute 0.00 10*3/uL LAB HEMATOLOGY METHOD 07/24/2024 5:27 AM EDT [facility] Myelocytes Absolute 0.00 10*3/uL LAB HEMATOLOGY METHOD 07/24/2024 5:27 AM EDT [facility] Metamyelocytes Absolute 0.00 10*3/uL LAB HEMATOLOGY METHOD 07/24/2024 5:27 AM EDT [facility] Neutrophils Absolute 2.04 1.60 - 6.10 10*3/uL LAB HEMATOLOGY METHOD 07/24/2024 5:27 AM EDT [facility] Lymphocytes Absolute 0.70(L) 1.20 - 3.90 10*3/uL LAB HEMATOLOGY METHOD 07/24/2024 5:27 AM EDT [facility] Reactive Lymphocytes Absolute 0.04 10*3/uL LAB HEMATOLOGY METHOD 07/24/2024 5:27 AM EDT [facility] Monocytes Absolute 0.18(L) 0.30 - 0.90 10*3/uL LAB HEMATOLOGY METHOD 07/24/2024 5:27 AM EDT [facility] Eosinophils Absolute 0.49 0.00 - 0.50 10*3/uL LAB HEMATOLOGY METHOD 07/24/2024 5:27 AM EDT [facility] Basophils Absolute 0.07 0.00 - 0.10 10*3/uL LAB HEMATOLOGY METHOD 07/24/2024 5:27 AM EDT [facility] Blood Venous blood specimen / Unknown Venipuncture / Unknown 07/24/2024 3:39 AM EDT 07/24/2024 3:44 AM EDT us Susannah Arevalo MD LAB BLOOD ORDERABLES Final Resu lt [facility] [address] [place] [address] * (ABNORMAL) Vancomycin, Trough, Plasma Level 1 of 2. Please draw ~30 minutes prior to dose due at 0400 on 07/24/2024. Please do NOT hold dose awaiting level to return. Consider obtaining level via peripheral stick. If peripheral stick is not feasible, please en... (07/24/2024 3:39 AM EDT) Pathologist [facility] Vancomycin, Trough, Plasma 20.5(H) 10.0 - 20.0 ug/mL 07/24/2024 4:13 AM EDT [facility] Blood Venous blood specimen / Unknown Venipuncture / Unknown 07/24/2024 3:39 AM EDT 07/24/2024 3:44 AM EDT Narrative [facility] - 07/24/2024 4:13 AM EDT Therapeutic Trough level: 10-20ug/mL Supra-therapeutic Trough level: >20 ug/mL us Susannah Arevalo MD LAB BLOOD ORDERABLES Final Resu lt [facility] [address] [place] [address] * (ABNORMAL) Basic metabolic panel (07/24/2024 3:39 AM EDT) Glucose, Plasma 83 74 - 99 mg/dL 07/24/2024 4:14 AM EDT [facility] BUN, Plasma 8 7 - 21 mg/dL 07/24/2024 4:14 AM EDT [facility] Creatinine, Plasma 0.62(L) 0.70 - 1.20 mg/dL 07/24/2024 4:14 AM EDT [facility] BUN/Creatinine Ratio 13 07/24/2024 4:14 AM EDT [facility] Sodium, Plasma 137 136 - 145 mmol/L 07/24/2024 4:14 AM EDT [facility] Potassium, Plasma 3.6 3.6 - 4.9 mmol/L 07/24/2024 4:14 AM EDT [facility] Chloride, Plasma 102 97 - 107 mmol/L 07/24/2024 4:14 AM EDT [facility] CO2, Plasma 26 22 - 29 mmol/L 07/24/2024 4:14 AM EDT [facility] Anion Gap 9 6 - 16 mmol/L 07/24/2024 4:14 AM EDT [facility] Total Calcium, Plasma 8.9 8.9 - 10.2 mg/dL 07/24/2024 4:14 AM EDT [facility] eGFRcr 116.4 mL/min/1.7 3m*2 07/24/2024 4:14 AM EDT [facility] Comment:Reported eGFRcr in m L/min/1.73m2 is based the CKD-EPI 2020 equation that does not use a race coefficient. Blood Venous blood specimen / Unknown Venipuncture / Unknown 07/24/2024 3:39 AM EDT 07/24/2024 3:44 AM EDT us Susannah Arevalo MD LAB BLOOD ORDERABLES Final Resu lt [facility] [address] [place] [address] * (ABNORMAL) CBC and differential (07/24/2024 3:39 AM EDT) WBC Count 3.51(L) 3.70 - 10.30 10*3/uL LAB HEMATOLOGY METHOD 07/24/2024 5:27 AM EDT [facility] RBC Count 3.58(L) 4.60 - 6.10 10*6/uL LAB HEMATOLOGY METHOD 07/24/2024 5:27 AM EDT [facility] HGB 10.5(L) 13.7 - 17.5 g/dL LAB HEMATOLOGY METHOD 07/24/2024 5:27 AM EDT [facility] HCT 31.4(L) 40.0 - 51.0 % LAB HEMATOLOGY METHOD 07/24/2024 5:27 AM EDT [facility] Platelet Count 236 155 - 369 10*3/uL LAB HEMATOLOGY METHOD 07/24/2024 5:27 AM EDT [facility] MCV 88 79 - 98 fL LAB HEMATOLOGY METHOD 07/24/2024 5:27 AM EDT [facility] MCH 29.3 26.0 - 32.0 pg LAB HEMATOLOGY METHOD 07/24/2024 5:27 AM EDT [facility] MCHC 33.4 30.7 - 35.5 g/dL LAB HEMATOLOGY METHOD 07/24/2024 5:27 AM EDT [facility] RDW 16.4(H) 11.5 - 14.5 % LAB HEMATOLOGY METHOD 07/24/2024 5:27 AM EDT [facility] MPV 10.2 8.8 - 12.5 fL LAB HEMATOLOGY METHOD 07/24/2024 5:27 AM EDT [facility] nRBC 0.0 <=0.0 per 100 WBCs LAB HEMATOLOGY METHOD 07/24/2024 5:27 AM EDT [facility] Differential Type Manual LAB HEMATOLOGY METHOD 07/24/2024 5:27 AM EDT [facility] Blood Venous blood specimen / Unknown Venipuncture / Unknown 07/24/2024 3:39 AM EDT 07/24/2024 3:44 AM EDT Narrative [facility] - 07/24/2024 5:27 AM EDT Therapeutic decision making should be based on absolute values, rather than percentages. The previously reported component Neutrophils % is no longer being reported.The previously reported component Lymphocytes % is no longer being reported.The previously reported component Monocytes % is no longer being reported.The previously reported component Eosinophils % is no longer being reported.The previously reported component Basophils % is no longer being reported.The previously reported component Immature Granulocytes % is no longer being reported.The previously reported component Absolute Neutrophils is no longer being reported.The previously reported component Absolute Lymphocytes is no longer being reported.The previously reported component Absolute Monocytes is no longer being reported.The previously reported component Absolute Eosinophils is no longer being reported.The previously reported component Absolute Basophils is no longer being reported.The previously reported component Absolute Immature Granulocytes is no longer being reported. us Susannah Arevalo MD LAB BLOOD ORDERABLES Final Resu lt [facility] [address] [place] [address] * POCT glucose meter (07/23/2024 7:44 PM EDT) [facility] POCT Glucose 82 74 - 99 mg/dL 07/23/2024 7:46 PM EDT [facility] Comment:Accuracy of a glucos e result obtained from a capillary whole blood specimen relies upon adequate, non-compromised capillary blood flow. If the capillary glucose result is not consistent with the patient's clinical signs and symptoms, glucose testing should be repeated with either an arterial or venous sample on the glucometer or sent to the main labortory for testing. Comment 07/23/2024 7:46 PM EDT [facility] Tour Sales Representative ID Talisha Humphrey 07/23/2024 7:46 PM EDT [facility] Device ID [id number] 07/23/2024 7:46 PM EDT [facility] Specimen Type POC Capillary 07/23/2024 7:46 PM EDT [facility] Blood Capillary blood specimen / Unknown 07/23/2024 7:44 PM EDT 07/23/2024 7:46 PM EDT us Susannah Arevalo MD LAB POINT OF CARE TE ST DOCKED DEVICE UNSOLICITED RESULTS Final Result Performing Organization Address [facility] de Phone Number [facility] [address] [place] [address] * (ABNORMAL) POCT glucose meter (07/23/2024 4:36 PM EDT) POCT Glucose 106(H) 74 - 99 mg/dL 07/23/2024 4:38 PM EDT [facility] Comment:Accuracy of a glucos e result obtained from a capillary whole blood specimen relies upon adequate, non-compromised capillary blood flow. If the capillary glucose result is not consistent with the patient's clinical signs and symptoms, glucose testing should be repeated with either an arterial or venous sample on the glucometer or sent to the main labortory for testing. Comment 07/23/2024 4:38 PM EDT [facility] Tour Sales Representative ID Sonia Camacho 4:38 PM EDT [facility]ALTH[facility] LAB Device ID [id number] 07/23/2024 4:38 PM EDT [facility] Specimen Type POC Capillary 07/23/2024 4:38 PM EDT [facility] Blood Capillary blood specimen / Unknown 07/23/2024 4:36 PM EDT 07/23/2024 4:38 PM EDT us Susannah Arevalo MD LAB POINT OF CARE TE ST DOCKED DEVICE UNSOLICITED RESULTS Final Result Performing Organization Address [facility] de Phone Number [facility] [address] [place] [address] * [place] NEG PRESSURE WOUND THERAPY NON DME >50 SQ CM (07/23/2024 12:41 PM EDT) Narrative Juani Jones PA - 07/23/2024 12:41 PM EDT Juani Jones PA 07/23/2024 12:45 PM Wound Vac Placement Proximal;Right Pretibial Performed by: Juani Jones PA Authorized by: Juani Jones PA Associated wounds: Wound 02/23/24 Pretibial Proximal;Right Consent: Consent obtained: Verbal Consent given by: Patient Risks discussed: Yes Indications: 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 DME Vac: No Procedure details: Foam Removed (Pieces): 1 Foam Placed (Pieces): 0 Wound Appearance: Clean, good granulation tissue, small amount of serosanguinous drainage Length (cm): 11 Width (cm): 7 Depth (cm): 2 Calc Area (square cm): 77 Foam Applied: Silver Foam Therapy: Continuous Pressure (mmHg): 125 Patient tolerance of procedure: Tolerated well, no immediate complications us Juani MCCARTY IN CLINIC/BEDSIDE ORDER WHITNEY Final Result * (ABNORMAL) POCT glucose meter (07/23/2024 11:47 AM EDT) Pathologist [facility] POCT Glucose 119(H) 74 - 99 mg/dL 07/23/2024 11:48 AM EDT [facility] Comment:Accuracy of a glucos e result obtained from a capillary whole blood specimen relies upon adequate, non-compromised capillary blood flow. If the capillary glucose result is not consistent with the patient's clinical signs and symptoms, glucose testing should be repeated with either an arterial or venous sample on the glucometer or sent to the main labortory for testing. Comment 07/23/2024 11:48 AM EDT [facility]ALTH[facility]ARE [facility] Tour Sales Representative ID Sonia Camacho 11:48 AM EDT [facility]ALTH[facility] Device ID [id number] 07/23/2024 11:48 AM EDT [facility]ALTH[facility] Specimen Type POC Capillary 07/23/2024 11:48 AM EDT [facility] Blood Capillary blood specimen / Unknown 07/23/2024 11:47 AM EDT 07/23/2024 11:48 AM EDT us Susannah Arevalo MD LAB POINT OF CARE TE ST DOCKED DEVICE UNSOLICITED RESULTS Final Result [facility] [address] [place] [address] * POCT glucose meter (07/23/2024 8:44 AM EDT) Pathologist [facility] POCT Glucose 85 74 - 99 mg/dL 07/23/2024 8:46 AM EDT [facility] Comment:Accuracy of a glucos e result obtained from a capillary whole blood specimen relies upon adequate, non-compromised capillary blood flow. If the capillary glucose result is not consistent with the patient's clinical signs and symptoms, glucose testing should be repeated with either an arterial or venous sample on the glucometer or sent to the main labortory for testing. Comment 07/23/2024 8:46 AM EDT [facility] Tour Sales Representative ID Sonia Camacho 8:46 AM EDT [facility]ALTH[facility] LAB Device ID [id number] 07/23/2024 8:46 AM EDT [facility] Specimen Type POC Capillary 07/23/2024 8:46 AM EDT [facility] Blood Capillary blood specimen / Unknown 07/23/2024 8:44 AM EDT 07/23/2024 8:46 AM EDT Susannah Arevalo MD LAB POINT OF CARE TE ST DOCKED DEVICE UNSOLICITED RESULTS Final Result [facility] [address] [place] [address] * (ABNORMAL) POCT glucose meter (07/22/2024 9:35 PM EDT) [facility] POCT Glucose 128(H) 74 - 99 mg/dL 07/22/2024 9:37 PM EDT [facility] Comment:Accuracy of a glucos e result obtained from a capillary whole blood specimen relies upon adequate, non-compromised capillary blood flow. If the capillary glucose result is not consistent with the patient's clinical signs and symptoms, glucose testing should be repeated with either an arterial or venous sample on the glucometer or sent to the main labortory for testing. Comment 07/22/2024 9:37 PM EDT [facility] Tour Sales Representative ID Leti Calvillo 07/23/19 9:37 PM EDT [facility] Device ID [id number] 07/22/2024 9:37 PM EDT [facility] Specimen Type POC Capillary 07/22/2024 9:37 PM EDT [facility] Blood Capillary blood specimen / Unknown 07/22/2024 9:35 PM EDT 07/22/2024 9:37 PM EDT us Susannah Arevalo MD LAB POINT OF CARE TE ST DOCKED DEVICE UNSOLICITED RESULTS Final Result Performing Organization Address [facility] Co de Phone Number [facility] [address] [place] [address] * Sheri auris Surveillance by PCR (07/22/2024 9:10 PM EDT) [facility] Sheri auris PCR Result Not Detected Not Detected 07/25/2024 8:19 AM EDT [facility] Swab (Axilla and Groin) Non-blood Collection / Unknown 07/22/2024 9:10 PM EDT 07/23/2024 12:28 AM EDT Narrative [facility] - 07/25/2024 8:19 AM EDT This PCR assay was developed and its performance characteristics determined by [facility] as appropriate for clinical purposes. This assay has not been cleared or approved by the FDA, but is performed in a CLIA regulated laboratory that is qualified to perform high-complexity testing. us Susannah Arevalo MD LAB MICROBIOLOGY - GENERAL JIMENEZ VERMA Final Result Performing Organization Address [facility] Co de Phone Number [facility] [address] [place] [address] * POCT glucose meter (07/22/2024 8:21 PM EDT) [facility] POCT Glucose 76 74 - 99 mg/dL 07/22/2024 8:23 PM EDT [facility] Comment:Accuracy of a glucos e result obtained from a capillary whole blood specimen relies upon adequate, non-compromised capillary blood flow. If the capillary glucose result is not consistent with the patient's clinical signs and symptoms, glucose testing should be repeated with either an arterial or venous sample on the glucometer or sent to the main labortory for testing. Comment 07/22/2024 8:23 PM EDT [facility] Tour Sales Representative ID Tripp Palacio 07/23/19 8:23 PM EDT [facility] Device ID [id number] 07/22/2024 8:23 PM EDT [facility] Specimen Type POC Capillary 07/22/2024 8:23 PM EDT [facility] Blood Capillary blood specimen / Unknown 07/22/2024 8:21 PM EDT 07/22/2024 8:23 PM EDT us Susannah Arevalo MD LAB POINT OF CARE TE ST DOCKED DEVICE UNSOLICITED RESULTS Final Result [facility] [address] [place] [address] * Multi Drug Resistance Test (07/22/2024 4:30 PM EDT) Culture No growth at day 1 07/23/2024 1:23 PM EDT [facility] Swab (Nares and Jannette Rectal) Non-blood Collection / Unknown 07/22/2024 4:30 PM EDT 07/22/2024 4:52 PM EDT us Susannah Arevalo MD LAB MICROBIOLOGY - GENERAL ORDE RABLES Final Result Performing Organization Address City/[facility]/ZIP Co de Phone Number [facility] [address] [place] [address] * Blood Culture (Aerobic/Anaerobet Set) (07/22/2024 3:23 PM EDT) Culture No growth at day 5 07/27/2024 4:01 PM EDT [facility] Blood Structure of right hand / Unknown Venipuncture / Unknown 07/22/2024 3:23 PM EDT 07/22/2024 3:48 PM EDT Narrative [facility] - 07/27/2024 4:01 PM EDT Low blood volume submitted, results may be compromised us Tripp Avalos MD LAB MICROBIOLOGY - GENERAL ORDERABLES Final Result [facility] [address] [place] [address] * Blood Culture (Aerobic/Anaerobet Set) (07/22/2024 1:00 PM EDT) Culture No growth at day 5 07/27/2024 2:01 PM EDT [facility] Blood Structure of right wrist region / Unknown Venipuncture / Unknown 07/22/2024 1:00 PM EDT 07/22/2024 1:14 PM EDT Narrative [facility] - 07/27/2024 2:01 PM EDT Low blood volume submitted, results may be compromised us Tripp Avalos MD LAB MICROBIOLOGY - GENERAL ORDERABLES Final Result Performing Organization Address City/[facility]/ZIP Co de Phone Number [facility] [address] [place] [address] * Hemoglobin A1c (07/22/2024 12:25 PM EDT) Hemoglobin A1c 5.3 <5.7 % 07/22/2024 7:12 PM EDT [facility] Blood Venous blood specimen / Unknown Venipuncture / Unknown 07/22/2024 12:25 PM EDT 07/22/2024 12:27 PM EDT Narrative [facility] - 07/22/2024 7:12 PM EDT HA1C Interpretive Data: Diagnosis of Diabetes: Diabetic > or = 6.5% Pre-diabetic 5.7 to 6.4% Non-diabetic < or = 5.6% Glycemic Targets for Type I and Type II Diabetics: Non- Adults <7.0% Adults <6.0% Children and Adolescents <7.5% Source: [place] [employer]. Standards of medical care in diabetes,2017. Diabetes Care.2017:40 (suppl 1):S1-S135. us Susannah Arevalo MD LAB BLOOD ORDERABLES Final Resu lt Performing Organization Address City/[facility] Care [facility]/ZIP Co de Phone Number [facility] [address] [place] [address] * (ABNORMAL) Sed rate, automated (07/22/2024 12:25 PM EDT) Sedimentation Rate 86(H) <20 mm/hr 2024 1:19 PM EDT [facility] Blood Venous blood specimen / Unknown Venipuncture / Unknown 07/22/2024 12:25 PM EDT 07/22/2024 12:27 PM EDT Tripp Avalos MD LAB BLOOD ORDERABLES Final Result Performing Organization Address [facility]/ZIP Co de Phone Number [facility] [address] [place] [address] * (ABNORMAL) C-Reactive protein (07/22/2024 12:25 PM EDT) CRP, Plasma 24.4(H) <=8.0 mg/L 07/22/2024 12:49 PM EDT [facility] Blood Venous blood specimen / Unknown Venipuncture / Unknown 07/22/2024 12:25 PM EDT 07/22/2024 12:27 PM EDT Narrative [facility] - 07/22/2024 12:49 PM EDT This CRP test is appropriate for assessment of infection, systemic inflammation and/or tissue injury. To assess cardiovascular disease risk order high sensitivity CRP (CRPH). Tripp Avalos MD LAB BLOOD ORDERABLES Final Result Performing Organization Address [facility] Co de Phone Number [facility] [address] [place] [address] * (ABNORMAL) CBC w/diff (07/22/2024 12:25 PM EDT) WBC Count 4.42 3.70 - 10.30 10*3/uL LAB HEMATOLOGY METHOD 07/22/2024 12:31 PM EDT [facility] RBC Count 4.15(L) 4.60 - 6.10 10*6/uL LAB HEMATOLOGY METHOD 07/22/2024 12:31 PM EDT [facility] HGB 12.0(L) 13.7 - 17.5 g/dL LAB HEMATOLOGY METHOD 07/22/2024 12:31 PM EDT [facility] HCT 36.7(L) 40.0 - 51.0 % LAB HEMATOLOGY METHOD 07/22/2024 12:31 PM EDT [facility] Platelet Count 338 155 - 369 10*3/uL LAB HEMATOLOGY METHOD 07/22/2024 12:31 PM EDT [facility] MCV 88 79 - 98 fL LAB HEMATOLOGY METHOD 07/22/2024 12:31 PM EDT [facility] MCH 28.9 26.0 - 32.0 pg LAB HEMATOLOGY METHOD 07/22/2024 12:31 PM EDT [facility] MCHC 32.7 30.7 - 35.5 g/dL LAB HEMATOLOGY METHOD 07/22/2024 12:31 PM EDT [facility] RDW 17.1(H) 11.5 - 14.5 % LAB HEMATOLOGY METHOD 07/22/2024 12:31 PM EDT [facility] MPV 10.1 8.8 - 12.5 fL LAB HEMATOLOGY METHOD 07/22/2024 12:31 PM EDT [facility] nRBC 0.0 <=0.0 per 100 WBCs LAB HEMATOLOGY METHOD 07/22/2024 12:31 PM EDT [facility] Differential Type Automated LAB HEMATOLOGY METHOD 07/22/2024 12:31 PM EDT [facility] Neutrophils % 68 % LAB HEMATOLOGY METHOD 07/22/2024 12:31 PM EDT [facility] Lymphocytes % 18 % LAB HEMATOLOGY METHOD 07/22/2024 12:31 PM EDT [facility] Monocytes % 10 % LAB HEMATOLOGY METHOD 07/22/2024 12:31 PM EDT [facility] Eosinophils % 3 % LAB HEMATOLOGY METHOD 07/22/2024 12:31 PM EDT [facility] Basophils % 1 % LAB HEMATOLOGY METHOD 07/22/2024 12:31 PM EDT [facility] Immature Granulocytes % 0 % LAB HEMATOLOGY METHOD 07/22/2024 12:31 PM EDT [facility] Neutrophils Absolute 2.96 1.60 - 6.10 10*3/uL LAB HEMATOLOGY METHOD 07/22/2024 12:31 PM EDT [facility] Lymphocytes Absolute 0.81(L) 1.20 - 3.90 10*3/uL LAB HEMATOLOGY METHOD 07/22/2024 12:31 PM EDT [facility] Monocytes Absolute 0.46 0.30 - 0.90 10*3/uL LAB HEMATOLOGY METHOD 07/22/2024 12:31 PM EDT [facility] Eosinophils Absolute 0.14 0.00 - 0.50 10*3/uL LAB HEMATOLOGY METHOD 07/22/2024 12:31 PM EDT [facility] Basophils Absolute 0.04 0.00 - 0.10 10*3/uL LAB HEMATOLOGY METHOD 07/22/2024 12:31 PM EDT [facility] Immature Granulocytes Absolute 0.01 0.00 - 0.06 10*3/uL LAB HEMATOLOGY METHOD 07/22/2024 12:31 PM EDT [facility] Blood Venous blood specimen / Unknown Venipuncture / Unknown 07/22/2024 12:25 PM EDT 07/22/2024 12:27 PM EDT Narrative [facility] - 07/22/2024 12:31 PM EDT Therapeutic decision making should be based on absolute values, rather than percentages. us Tripp Avalos MD LAB BLOOD ORDERABLES Final Result [facility] [address] [place] [address] * (ABNORMAL) BMP (07/22/2024 12:25 PM EDT) Glucose, Plasma 103(H) 74 - 99 mg/dL 07/22/2024 12:49 PM EDT [facility] BUN, Plasma 10 7 - 21 mg/dL 07/22/2024 12:49 PM EDT [facility] Creatinine, Plasma 0.77 0.70 - 1.20 mg/dL 07/22/2024 12:49 PM EDT [facility] BUN/Creatinine Ratio 13 07/22/2024 12:49 PM EDT [facility] Sodium, Plasma 132(L) 136 - 145 mmol/L 07/22/2024 12:49 PM EDT [facility] Potassium, Plasma 3.9 3.6 - 4.9 mmol/L 07/22/2024 12:49 PM EDT [facility] Chloride, Plasma 97 97 - 107 mmol/L 07/22/2024 12:49 PM EDT [facility] CO2, Plasma 27 22 - 29 mmol/L 07/22/2024 12:49 PM EDT [facility] Anion Gap 8 6 - 16 mmol/L 07/22/2024 12:49 PM EDT [facility] Total Calcium, Plasma 9.7 8.9 - 10.2 mg/dL 07/22/2024 12:49 PM EDT [facility] eGFRcr 109.1 mL/min/1.7 3m*2 07/22/2024 12:49 PM EDT [facility] Comment:Reported eGFRcr in m L/min/1.73m2 is based the CKD-EPI 2020 equation that does not use a race coefficient. 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, face and neck (CMS/HCC) Acute osteomyelitis of left clavicle (CMS/HCC) HFrEF (heart failure with reduced ejection fraction) (CMS/HCC) documented in this encounter Admitting Diagnoses Diagnosis Acute osteomyelitis of left clavicle (CMS/HCC) documented in this encounter Administered Medications Inactive Administered Medications - up to 3 most recent administrations Medication Order MAR Action Action Date Dose Rate Site acetaminophen (Tylenol) tablet 1,000 mg 1,000 mg, Oral, Once, 1 dose, On Fri07/28/24 at 0000, Routine Given 07/28/2024 12:04 AM EDT 1,000 mg acetaminophen (Tylenol) tablet 650 mg 650 mg, Oral, Every 6 hours scheduled, First dose on Fri07/23/24 at 1200, Until Discontinued, Routine Given 07/28/2024 12:06 PM EDT 650 mg Given 07/28/2024 5:21 AM EDT 650 mg Given 07/27/2024 5:06 PM EDT 650 mg cyclobenzaprine (Flexeril) tablet 5 mg 5 mg, Oral, 3 times daily PRN, Starting on 07/24/24 at 1601, Until 07/28/24 at 1819, Routine, muscle spasms Given 07/26/2024 9:07 PM EDT 5 mg Given 07/26/2024 12:18 PM EDT 5 mg Given 07/25/2024 8:59 PM EDT 5 mg DAPTOmycin (Cubicin) 950 mg in sodium chloride 0.9 % 100 mL IVPB 950 mg (rounded from 903 mg = 10 mg/kg 90.3 kg), Intravenous, Every 24 hours, First dose on Fri07/27/24 at 2100, Until Discontinued, Routine New Bag 07/27/2024 8:49 PM EDT 950 mg 258 mL/hr enoxaparin (Lovenox) syringe 40 mg 40 mg, Subcutaneous, Daily, First dose on Fri07/23/24 at 0900, Until Discontinued, Routine Given 07/28/2024 9:31 AM EDT 40 mg Left Lower Abdomen Given 07/27/2024 8:19 AM EDT 40 mg Le ft Lower Abdomen Given 07/25/2024 9:21 AM EDT 40 mg Le ft Lower Abdomen HYDROmorphone (Dilaudid) injection 1 mg 1 mg, Intravenous, Once, 1 dose, On Fri07/23/24 at 1145, Routine Given 07/23/2024 11:47 AM EDT 1 mg lidocaine (Lidoderm) 5 % patch 1 patch 1 patch, Apply externally, Every 24 hours, First dose on Fri07/23/24 at 1515, Until Discontinued, Administer over 12 Hours, Routine Medication Applied 07/25/2024 4:15 PM EDT 1 patch Left Arm Medication Applied 07/24/2024 4:13 PM EDT 1 patch Left Arm lidocaine PF (Xylocaine) 1 % injection 300 mg 300 mg (30 mL), Injection, Once, 1 dose, On Fri07/26/24 at 0845, Routine, Imaging Protocol OrdersIndications:Local Anesthesia Given 07/26/2024 8:49 AM EDT 2 mL metoprolol tartrate (Lopressor) split tablet 12.5 mg 12.5 mg, Oral, 2 times daily, First dose on Fri07/27/24 at 1415, Until Discontinued, Routine Given 07/28/2024 9:31 AM EDT 12.5 mg Given 07/27/2024 8:49 PM EDT 12.5 mg Given 07/27/2024 1:22 PM EDT 12.5 mg mupirocin (Bactroban) 2 % ointment 1 Application Each Nostril, 2 times daily, 10 doses, First dose on Fri07/22/24 at 2115, Last dose on Fri07/27/24 at 0900, Routine Given 07/27/2024 8:20 AM EDT 1 Applic ation Given 07/26/2024 9:07 PM EDT 1 Application Given 07/26/2024 9:51 AM EDT 1 Application ondansetron (Zofran) injection 4 mg 4 mg, Intravenous, Every 6 hours PRN, Starting on Fri07/22/24 at 1510, Until Fri07/28/24 at 1819, Routine, If unable to tolerate PO ondansetron ODT (Zofran-ODT) disintegrating tablet 4 mg 4 mg, Oral, Every 6 hours PRN, Starting on Fri07/22/24 at 1510, Until Fri07/28/24 at 1819, Routine, nausea, vomiting oxyCODONE (Roxicodone) immediate release tablet 10 mg 10 mg, Oral, Once, 1 dose, On Fri07/22/24 at 1220, STAT Given 07/22/2024 12:55 PM EDT 10 mg oxyCODONE (Roxicodone) immediate release tablet 10 mg 10 mg, Oral, Every 4 hours PRN, Starting on Fri07/22/24 at 1527, Until Fri07/23/24 at 1051, Routine, moderate pain Given 07/23/2024 8:40 AM EDT 10 mg Given 07/23/2024 4:12 AM EDT 10 mg Given 07/22/2024 9:03 PM EDT 10 mg oxyCODONE (Roxicodone) immediate release tablet 15 mg 15 mg, Oral, Every 4 hours PRN, Starting on Fri07/23/24 at 1050, Until Fri07/24/24 at 1230, Routine, moderate pain Given 07/24/2024 8:47 AM EDT 15 mg Given 07/24/2024 3:44 AM EDT 15 mg Given 07/23/2024 10:05 PM EDT 15 mg oxyCODONE (Roxicodone) immediate release tablet 20 mg 20 mg, Oral, Every 4 hours PRN, Starting on 07/24/24 at 1230, Until Fri07/28/24 at 1819, Routine, moderate pain Given 07/28/2024 2:21 PM EDT 20 mg Given 07/28/2024 9:32 AM EDT 20 mg Given 07/28/2024 3:47 AM EDT 20 mg polyethylene glycol (Miralax) packet 17 g 17 g, Oral, Daily, First dose on Phuong 07/22/24 at 1530, Until Discontinued, Routine Given 07/28/2024 9:31 AM EDT 17 g Given 07/27/2024 8:20 AM EDT 17 g Given 07/26/2024 9:50 AM EDT 17 g potassium chloride CR (Klor-Con) ER tablet 40 mEq 40 mEq, Oral, Once, 1 dose, On 07/24/24 at 0545, Routine Given 07/24/2024 5:15 AM EDT 40 mEq sodium chloride 0.9 % flush 10 mL 10 mL, Intravenous, Every 12 hours, First dose on Fri07/22/24 at 1530, Until Discontinued, Routine Given 07/28/2024 9:31 AM EDT 10 mL Given 07/27/2024 8:49 PM EDT 10 mL Given 07/27/2024 8:20 AM EDT 10 mL sodium chloride 0.9 % flush 10 mL 10 mL, Intravenous, As needed, Starting on Phuong 07/22/24 at 1505, Until Fri07/28/24 at 1819, Routine, line care sodium chloride 0.9 % flush 10 mL 10 mL, Intravenous, Every 12 hours, First dose on Fri07/28/24 at 1130, Until Discontinued, Routine Given 07/28/2024 12:07 PM EDT 10 mL sodium chloride 0.9 % flush 10 mL 10 mL, Intravenous, Every 1 hour PRN, Starting on Fri07/28/24 at 1035, Until Fri07/28/24 at 181, Routine, Flush Before and After EVERY dose of medication. sodium chloride 0.9 % flush 20 mL 20 mL, Intravenous, Every 1 hour PRN, Starting on Fri07/28/24 at 1035, Until Fri07/28/24 at 1819, Routine, After blood draws and if any blood seen in tubing. traZODone (Desyrel) tablet 100 mg 100 mg, Oral, Nightly, First dose on Fri07/22/24 at 2100, Until Discontinued, Routine Given 07/27/2024 8:49 PM E DT 100 mg Given 07/26/2024 9:07 PM EDT 100 mg Given 07/25/2024 8:59 PM EDT 100 mg Vancomycin HCl in NaCl (Vancocin) IVPB 1,000 mg 1,000 mg, Intravenous, Every 12 hours, First dose (after last modification) on Fri07/24/24 at 1600, Until Discontinued, at 250 mL/hr, Routine Given 07/27/2024 4:19 AM EDT 1,000 mg 250 mL/hr Given 07/26/2024 4:13 PM EDT 1,000 mg 250 mL/hr Given 07/26/2024 4:00 AM EDT 1,000 mg 250 mL/hr vancomycin in NS (Vancocin) IVPB 1,500 mg 1,500 mg, Intravenous, Every 12 hours, First dose on Fri07/23/24 at 0400, Until Discontinued, at 166.7 mL/hr, Routine New Bag 07/24/2024 4:48 AM EDT 1,500 mg 166.7 mL/h r New Bag 07/23/2024 5:50 PM EDT 1,500 mg 166.7 mL/hr New Bag 07/23/2024 4:04 AM EDT 1,500 mg 166.7 mL/hr vancomycin IVPB 1750 mg in 250 mL NS IVPB 1,750 mg (rounded from 1,806 mg = 20 mg/kg 90.3 kg), Intravenous, Once, 1 dose, On Fri07/22/24 at 1540, at 167.4 mL/hr, STAT New Bag 07/22/2024 4:24 PM EDT 1,750 mg 167.4 mL/hr documented in this encounter Active and Recently Administered Medications Times are shown in EDT. Scheduled Medication Order 07/26/2024 07/27/2024 07/28/2024 acetaminophen (Tylenol) tablet 1,000 mg (COMPLETED) 1,000 mg, Oral, Once, 1 dose, On Fri07/28/24 at 0000, Routine 0004 (Given - Provid er: Corie Andersen, DANIEL) acetaminophen (Tylenol) tablet 650 mg 650 mg, Oral, Every 6 hours scheduled, First dose on Fri07/23/24 at 1200, Until Discontinued, Routine 0011 (Given - Provider: Jessica Magdaleno RN)0510 (Given - Provider: Jessica Magdaleno, RN)1217 (Given - Provider: Chidi Munguia, DANIEL)1839 (Given - Provider: Chidi Munguia, DANIEL)2313 (Given - Provider: Corie Andersen, DANIEL) 0531 (Given - Provider: Corie Andersen, DANIEL)1158 (Given - Provider: Tamy Hoff, DANIEL)1706 (Given - Provider: Tamy Hoff, DANIEL)2336 (Not Given - Provider: Corie Andersen RN - Reason: Order changed) 0521 (Given - Provider: Corie Andersen RN)1206 (Given - Provider: Tamy Hoff RN)1800 (Canceled Entry - Provider: Automatic Discharge Provider - Comment: Automatically canceled at discontinue of medication order) DAPTOmycin (Cubicin) 950 mg in sodium chloride 0.9 % 100 mL IVPB 950 mg (rounded from 903 mg = 10 mg/kg 90.3 kg), Intravenous, Every 24 hours, First dose on Fri07/27/24 at 2100, Until Discontinued, Routine 204 (New Bag - Provider: Corie Andersen RN) enoxaparin (Lovenox) syringe 40 mg 40 mg, Subcutaneous, Daily, First dose on Fri07/23/24 at 0900, Until Discontinued, Routine 0900 (Dose Auto Held - Provider: Clemente Sears MD)1026 (Unheld by provider - Provider: Cassie Luevano MD) 0819 (Given - Provider: Tamy Hoff, DANIEL) 0931 (Given - Provider: Beverly Frye RN) lidocaine PF (Xylocaine) 1 % injection 300 mg (COMPLETED) 300 mg (30 mL), Injection, Once, 1 dose, On Fri07/26/24 at 0845, Routine, Imaging Protocol Orders 0849 (Given - Provider: Jennifer Clemens MD) metoprolol tartrate (Lopressor) split tablet 12.5 mg 12.5 mg, Oral, 2 times daily, First dose on Fri07/27/24 at 1415, Until Discontinued, Routine 1322 (Given - Provider: Tamy Hoff RN)204 (Given - Provider: Corie Andersen, DANIEL) 0931 (Given - Provider: Beverly Frye RN) mupirocin (Bactroban) 2 % ointment 1 Application (COMPLETED) Each Nostril, 2 times daily, 10 doses, First dose on Fri07/22/24 at 2115, Last dose on Fri07/27/24 at 0900, Routine 0951 (Given - Provider: Chidi Munguia RN)210 (Given - Provider: Corie Andersen RN) 0820 (Given - Provider: Tamy Hoff, DANIEL) polyethylene glycol (Miralax) packet 17 g 17 g, Oral, Daily, First dose on Fri07/22/24 at 1530, Until Discontinued, Routine 0950 (Given - Provider: Chidi Munguia RN) 0820 (Given - Provider: Tamy Hoff, DANIEL) 0931 (Given - Provider: Beverly Frye RN) sodium chloride 0.9 % flush 10 mL(Linked Group 1) 10 mL, Intravenous, Every 12 hours, First dose on Fri07/22/24 at 1530, Until Discontinued, Routine 0954 (Given - Provider: Chidi Munguia RN)210 (Given - Provider: Corie Andersen RN) 0820 (Given - Provider: Tamy Hoff, DANIEL)2048 (Given - Provider: Corie Andersen RN) 0931 (Given - Provider: Beverly Frye RN) sodium chloride 0.9 % flush 10 mL 10 mL, Intravenous, Every 12 hours, First dose on Fri07/28/24 at 1130, Until Discontinued, Routine 1207 (Given - Provid er: Tamy Hoff RN) traZODone (Desyrel) tablet 100 mg 100 mg, Oral, Nightly, First dose on Fri07/22/24 at 2100, Until Discontinued, Routine 210 (Given - Provider: Corie Andersen, DANIEL) 2048 (Given - Provider: Corie Andersen, DANIEL) Vancomycin HCl in NaCl (Vancocin) IVPB 1,000 mg (CANCELED) 1,000 mg, Intravenous, Every 12 hours, First dose (after last modification) on 07/24/24 at 1600, Until Discontinued, at 250 mL/hr, Routine 0400 (Given - Provider: Jessica Magdaleno RN)1613 (Given - Provider: Chidi Munguia RN) 0419 (Given - Provider: Corie Andersen RN) PRN Medication Order 07/26/2024 07/27/2024 07/28/2024 cyclobenzaprine (Flexeril) tablet 5 mg 5 mg, Oral, 3 times daily PRN, Starting on 07/24/24 at 1601, Until 07/28/24 at 1819, Routine, muscle spasms 1218 (Given - Provider: Chidi Munguia, DANIEL)2107 (Given - Provider: Corie Andersen RN) 0932 (Not Given - Provider: Beverly Frye RN - Reason: Patient/family refused) famotidine (Pepcid) tablet 20 mg 20 mg, Oral, Nightly PRN, Starting on 07/24/24 at 1601, Until Fri07/28/24 at 1819, Routine, heartburn ondansetron (Zofran) injection 4 mg(Linked Group 2) 4 mg, Intravenous, Every 6 hours PRN, Starting on Phuong 07/22/24 at 1510, Until Fri07/28/24 at 1819, Routine, If unable to tolerate PO ondansetron ODT (Zofran-ODT) disintegrating tablet 4 mg(Linked Group 2) 4 mg, Oral, Every 6 hours PRN, Starting on Phuong 07/22/24 at 1510, Until Fri07/28/24 at 1819, Routine, nausea, vomiting oxyCODONE (Roxicodone) immediate release tablet 20 mg 20 mg, Oral, Every 4 hours PRN, Starting on 07/24/24 at 1230, Until Fri07/28/24 at 1819, Routine, moderate pain 0333 (Given - Provider: Jessica Magdaleno RN)0951 (Given - Provider: Chidi Munguia, DANIEL)1426 (Given - Provider: Awais Meehan)1838 (Given - Provider: Chidi Munguia, RN)2313 (Given - Provider: Corie Andersen, DANIEL) 0415 (Given - Provider: Corie Andersen, DANIEL)0819 (Given - Provider: Tamy Hoff, RN)1320 (Given - Provider: Tamy Hoff, RN)1809 (Given - Provider: Tamy Hoff, RN)2211 (Given - Provider: Corie Andersen, DANIEL) 0347 (Given - Provider: Corie Andersen, DANIEL)0932 (Given - Provider: Beverly Frye RN)1421 (Given - Provider: Beverly Frye RN) sodium chloride 0.9 % flush 10 mL(Linked Group 1) 10 mL, Intravenous, As needed, Starting on Phuong 07/22/24 at 1505, Until 07/28/24 at 1819, Routine, line care sodium chloride 0.9 % flush 10 mL 10 mL, Intravenous, Every 1 hour PRN, Starting on 07/28/24 at 1035, Until 07/28/24 at 1819, Routine, Flush Before and After EVERY dose of medication. sodium chloride 0.9 % flush 20 mL 20 mL, Intravenous, Every 1 hour PRN, Starting on 07/28/24 at 1035, Until 07/28/24 at 1819, Routine, After blood draws and if any blood seen in tubing. Linked Groups Order Group 1: Insert peripheral IV (CANCELED) Once, On Phuong 07/22/24 at 1506, For 1 occurrence And Saline lock IV (CANCELED) Once, On Phuong 07/22/24 at 1506, For 1 occurrence And sodium chloride 0.9 % flush 10 mLJump to med 10 mL, Intravenous, Every 12 hours, First dose on Phuong 07/22/24 at 1530, Until Discontinued, Routine And sodium chloride 0.9 % flush 10 mLJump to med 10 mL, Intravenous, As needed, Starting on Phuong 07/22/24 at 1505, Until Fri07/28/24 at 1819, Routine, line care Group 2: ondansetron ODT (Zofran-ODT) disintegrating tablet 4 mgJump to med 4 mg, Oral, Every 6 hours PRN, Starting on Phuong 07/22/24 at 1510, Until 07/28/24 at 1819, Routine, nausea, vomiting Or ondansetron (Zofran) injection 4 mgJump to med 4 mg, Intravenous, Every 6 hours PRN, Starting on Phuong 07/22/24 at 1510, Until 07/28/24 at 1819, Routine, If unable to tolerate PO documented in this encounter Additional Health Concerns Infection Onset Date 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 02/19/2024 Assessment Noted Time A fall risk assessment has been complete d for the patient 07/22/2024 8:50 AM EDT A Body Mass Index follow-up plan has been documented for the patient 07/28/2024 3:32 PM EDT documented as of this encounter Care Teams 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
--- OUTSIDE RECORDS SUMMARY | 2024-08-04 06:15 | XMS_ITS ---
Author Organization [facility] Address [address] [facility] [address] [place] [phone] Care Team Providers Care Lining Maker Hand Name Role Phone Carson Ibrahim Primary Care Provider Allergies Allergen (clinical drug ingredient) Drug/Non Drug Allergy documented on EMR Reaction Allergy Type Onset Date Status Penicillin Rash Drug Allergy Active Reason For Referral Reason Echo done at Diagnosis 1 HFrEF (heart failure with reduced ejection fraction) (I50.20) Referral Organization [facility] Referring Provider First Name Carson Referring Provider Last Name Patrice Referring Provider Speciality Family Pra ctice Referred Provider Mildred Martin Referred Provider Specialty Cardiovascul ar Disease General Notes Eliana Najera 2024 01:16:57 PM > faxed to [facility] Scheduling, Eliana Najera 08/06/2024 03:35:45 PM > 08/17/2024 at 02:15pm Referral Priority Routine REASON FOR VISIT Discharge Follow Up from Medications Medication SIG (Take, Route, Frequency, Duration) Notes Start Date End Date Status Cyclobenzaprine HCl 5 MG 1 tablet as nee ded Orally Three times a day 06/23/2024 Not-Taking Famotidine 20 MG 1 tablet at bedtime as needed Orally Twice a day for 30 day(s) Active Wheelchair - as directed 01/28/2024 Acti ve Gabapentin 400 MG 1 capsule Orally Onc e a day for 30 day(s) Not-Taking oxyCODONE HCl 15 MG 1 tablet Orally ever y 4 hrs Active Metoprolol Succinate 25 MG 1 capsule Ora lly Once a day Active Problems Problem Type SNOMED Code ICD Code Onset Dates Problem Status W/U Status Risk Notes Problem [id number] HFrEF (heart failure with reduced ejection fraction) (I50.20) Active confirmed Vital Signs Blood pressure systolic 124 mm Hg 08/05/19 25 Blood pressure diastolic 82 mm Hg 025 Heart Rate 68 /min 08/04/2024 Height 69.5 in 08/04/2024 Weight 200.6 lbs 08/04/2024 BMI 29.2 kg/m2 08/04/2024 Encounters Encounter Location Date Provider Diagnosis [facility] [address] [facility] [address] [facility] [address] [place] [phone] 08/04/2024 Carson Ibrahim Infection of clavicl e M86.9 ; HFrEF (heart failure with reduced ejection fraction) I50.20 and BMI 29.0-29.9,adult Z68.29 Assessments Encounter Date Diagnosis (ICD Code) Assessment Notes Treatment Notes Treatment Clinical Notes Section Notes 08/04/2024 Infection of clavicle (ICD-10 - M86.9) Continue IV Daptomycin, keep f/u appt. with ID at 08/04/2024 HFrEF (heart failure with reduced ejection fraction) (ICD-10 - I50.20) 08/04/2024 BMI 29.0-29.9,adult (ICD-10 - Z68.29) Plan Of Treatment Treatment Notes Assessment Notes Infection of clavicle Continue IV Daptom ycin, keep f/u appt. with ID at Referrals Referral Date Details 08/04/2024 08/04/2024, Echo don e at , Mildred Martin Next Appt Details Follow Up: 4 Weeks, Reason: Provider Name:Carson Esteban ry, 12/02/2024 09:30:00 AM, [address] [facility] [address] [facility], [address], [place], [phone], Progress Notes * NOE DANIELSOB:1975 (49 yo M)Acc No.[id number]:08/04/2024 Patient: PERRY JOHNSON Provider: Mila Ibrahim M.D. :1975 A ge:49 Y S ex:Male Date:08/04/2024 Address:[address] [place] [address], [id number] Subjective: * Chief Complaints: * 1 . Discharge Follow Up from . * HPI: H PI: 49 year old male presents with c/o Here for follow up on: h ospitalization at due to an abscess around his left clavicle. He states the abscess was aspirated and drained with a needle and he was started on IV antibiotics and now has a PICC line in his right arm. Pt states he is doing about the same. Pt states he is needing a referral to cardiology due to a new diagnosis of heart failure that was seen on an echo done while at . Pt denies any chest pain or shortness of breath. * ROS: D ERMATOLOGY: no R elaine. n o H donald. G ASTROENTEROLOGY: no N ausea. n o V omiting. n o D iarrhea.? U ROLOGY: no D ifficulty urinating. n o B lood in urine. 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 * Hospitalization/Major Diagno stic Procedure: aiyana crow stone surgery , [facility] ER - UTI 11/08/2018, [facility] - Neck Surgery 10/13-. * Family [...] at age 15. * Medications: T aking Metoprolol Succinate 25 MG Capsule ER 24 Hour Sprinkle 1 capsule Orally Once a day , Taking oxyCODONE HCl 15 MG Tablet 1 tablet Orally every 4 hrs , Taking Wheelchair - Miscellaneous as directed , Taking Famotidine 20 MG Tablet 1 tablet at bedtime as needed Orally Twice a day , Not-Taking Gabapentin 400 MG Capsule 1 capsule Orally Once a day , Not-Taking Cyclobenzaprine HCl 5 MG Tablet 1 tablet as needed Orally Three times a day , Medication List reviewed and reconciled with the patient * Allergies: P enicillin: Rash. Objective: * Vitals: W t: 200.6, Temp: 98.2, BP: 124/82, HR: 68, Nurse: FERNIE, Ht: 69.5, BMI:29.2. * Examination: G eneral Examination: General Appearance: N AD. Heart: R SR. Lungs: c lear to auscultation. Skin: w ound vac in place over right lower leg site. Extremities: n o leg edema, PICC line in right upper extremity. Assessment: * Assessment: 1. I nfection of clavicle - M86.9 (Primary) 2 . H FrEF (heart failure with reduced ejection fraction) - I50.20 3 . B SC 29.0-29.9,adult - Z68.29 Plan: * Treatment: 2. H FrEF (heart failure with reduced ejection fraction) Referral To:[facility] Martin [facility] Reason:Echo done at * Procedure Codes: 3 074F SYST BP LT 130 MM HG, 3079F DIAST BP 80-89 MM HG * Follow Up: 4 Weeks * Billing Information: * Visit Code: 73631 Office Visit, Est Pt., Level 3. * Procedure Codes: 3074F SYST BP LT 130 MM HG. 3079F DIAST BP 80-89 MM HG. * Electronic signature of Alia Ibrahim MD on 09/15/2024 at 11:17 AM EDT Sign off status: Pending * Provider: Mila Ibrahim M.D. Date: 08/04/2024 Generated for Cristhian louis/Constanza/[place] on: 09/15/2024 11:17 AM EDT History and Physical Notes * HPI (History of Present Illness) Category Sub-Category Detail Notes Category Not es HPI Here for follow up on: hospitali blanca at due to an abscess around his left clavicle. He states the abscess was aspirated and drained with a needle and he was started on IV antibiotics and now has a PICC line in his right arm. Pt states he is doing about the same. Pt states he is needing a referral to cardiology due to a new diagnosis of heart failure that was seen on an echo done while at . Pt denies any chest pain or shortness of breath Examination Category Sub-Category Detail Notes Category Not es General Examination Heart: RSR Lungs: clear to auscultatio n Extremities: no leg edema, PICC l ine in right upper extremity General Appearance: NAD Skin: wound vac in place o niru right lower leg site Consultation Request Notes Referral Date Referring Provider Referred Provider Not es 08/04/2024 Carson Ibrahim Yaz Echo done at
--- OUTSIDE RECORDS SUMMARY | 2024-08-10 11:48 | XMS_ITS | Encounter Summary ---
Author Organization [facility] Address [address] 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 Procedures PET/CT FDG Skull Base To Mid Thigh PET/CT FDG Skull Base To Mid Thigh Matias Eldrdige MD 800 [facility] [address] [address] Phone: tel: fax: Referral ID Status Reason Start Date Expiration Date Visits Re quested Visits Authorized [id number] Closed 06/10/2024 12/10/2025 2 2 Encounter Details Date Type Department Care Team (Latest Contact Info) Description 08/10/2024 11:48 AM EDT - 08/10/2024 11:59 PM EDT Hospital Encounter [facility] PET Scan 800 [place] [phone] Discharge Disposition: Home or Self Care Social [...] place to sleep or slept in a fci (including now)? No 01/08/2024 Housing Stability Vital Sign Answer Preet e Recorded In the last 12 months, was t here a time when you were not able to pay the mortgage or rent on time? No 07/28/2024 In the past 12 months, how m any times have you moved where you were living? 1 07/28/2024 At any time in the past 12 m [facility], were you homeless or living in a fci (including now)? No 07/28/2024 CAGE ASSESSMENT Answer [...] drink first t idalia in the morning (EYE-DOBIE MAN) to steady your nerves or to get rid of a hangover? 0 07/22/2024 CAGE Questionnaire Score 0 025 Utilities Answer Date Recorded In the past 12 months has th e [employer], gas, oil, or water [employer] threatened to shut off services in your [...] Description 09/23/2024 1:45 PM EDT Evaluation [facility] 800 [facility] [address] [place] [address] Kelsey Cerda, DMD [address] [facility] [address] [place] [address] 10/06/2024 11:45 AM EDT Office Visit Pav CC Head, Neck & Respiratory 800 [facility], 2nd [place] [address] Matias Eldridge MD 800 [facility] [address] [place] [address] 12/13/2024 10:00 AM EDT Office Visit Pav CC Head, Neck & Respiratory 800 [facility], 2nd [place] [address] Viky Menon MD 800 [facility] Liz Hester [facility] [address] [place] [address] 12/13/2024 1:00 PM EDT Appointment PAV CC Radiation [address] [place] [address] Imer Sevilla MD [address] [facility] [address] [place] [address] Scheduled Procedures Name Priority Associated [...] scanner: Siemens Biograph 40 mCT. PET/CT acquisition: Upycfc-kb-hbr-thighs, plus magnification (zoomed) neck. Standardized uptake value (SUV): Corrected for body weight only. CT: Low-dose, oyn-wjjxna-jyzv, without intravenous contrast. TOTAL DLP (Dose Length [...] scanner: Siemens Biograph 40 mCT. PET/CT acquisition: Msysxv-ji-qqj-thighs, plus magnification (zoomed)neck. Standardized uptake value (SUV): Corrected for body weight only. CT: Low-dose, zft-yeemhg-qxam, without intravenous contrast. TOTAL DLP (Dose Length [...] documented as of this encounter Care Teams Grease Worker Relationship Specialty Start Date End Date Carson Ibrahim MD [address] [facility] [address] [address] PCP - General 11/20/23 Imer Sevilla MD [address] [facility] [address] [place] [phone] Consulting Physician Radiation Oncology 02/27/24 Viky Menon MD [address] [facility] [address] [place] [address] Consulting Physician Medical Oncology 04/21/24 Amelia Freeman, RN Registered Nurse Hematology and Oncology 05/13/24 documented as of this encounter
--- OUTSIDE RECORDS SUMMARY | 2024-08-10 11:48 | XMS_ITS | Encounter Summary ---
Author Organization [facility] Address 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 Procedures PET/CT FDG Skull Base To Mid Thigh PET/CT FDG Skull Base To Mid Thigh Matias Eldridge MD [address] [address] Phone: tel: fax: Referral ID Status Reason Start Date Expiration Date Visits Re quested Visits Authorized [id number] Closed 06/10/2024 12/10/2025 2 2 Reason for Visit * Imaging (Routine) - Closed Specialty Diagnoses / Procedures Referred By Kameron santana Referred To Contact Radiology Diagnoses 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 No 01/08/2024 Housing Stability Vital [...] time in the past 12 m [facility], were you homeless or living in a long-term (including now)? No 07/28/2024 CAGE ASSESSMENT Answer [...] drink first t idalia in the morning (EYE-LEADERSHIP INTERN) to steady your nerves or to get rid of a hangover? 0 07/22/2024 CAGE Questionnaire Score 0 025 Utilities Answer Date Recorded In the past 12 months has th e [employer], gas, oil, or water [employer] threatened to shut off services in your [...] specific directions only. Mix and deliver per institution/[facility] ility policy. 1 each 07/28/2024 5 oxyCODONE [...] Description 09/23/2024 1:45 PM EDT Evaluation [facility] [address] [place] [address] Kelsey Cerda, DMD [address] [place] [address] 10/06/2024 11:45 AM EDT Office Visit Pav CC Head, Neck & Respiratory 800 [facility], 2nd [place] [phone] Matias Eldridge MD 800 [facility] 2nd [place] [phone] 12/13/2024 10:00 AM EDT Office Visit Pav CC Head, Neck & Respiratory 800 [facility], 2nd [place] [phone] Viky Menon MD 800 [facility] K[address] [place] [phone] 12/13/2024 1:00 PM EDT Appointment PAV CC Radiation 800 [facility]. [address] [place] [address] Imer Sevilla MD 800 [facility] [address] [place] [phone] Scheduled Procedures Name Priority Associated Diagnoses Date/Ti [...] sides for neck scan. PET/CT scanner: Siemens PE INTERNATIONALgraph 40 mCT. PET/CT acquisition: Vxuims-fa-eaz-thighs, plus magnification (zoomed) neck. Standardized uptake value (SUV): Corrected for body weight only. CT: Low-dose, fhs-spctel-tqbf, without intravenous contrast. TOTAL DLP (Dose Length [...] scanner: Siemens Biograph 40 mCT. PET/CT acquisition: Jjxqky-ml-kkl-thighs, plus magnification (zoomed)neck. Standardized uptake value (SUV): Corrected for body weight only. CT: Low-dose, nbf-octyad-mzhl, without intravenous contrast. TOTAL DLP (Dose Length [...] signing this report, I, the attending physician, attestthat I have personally reviewed the images/data for [...] 10 millicurie, Intravenous, Once, 1 dose, On Fri08/10/24 at 1415, Routine, Imaging NM Protocol Orders [...] documented as of this encounter Care Teams Sas Programmer Analyst Relationship Specialty Start Date End Date Carson Ibrahim MD 1210 [facility] [address] [place] [address] PCP - General 11/20/23 Imer Sevilla MD 800 [facility] [address] [place] [address] Consulting Physician Radiation Oncology 02/27/24 Viky Menon MD 800 [facility] [address] [place] [address] Consulting Physician Medical Oncology 04/21/24 Amelia Freeman, RN Registered Nurse Hematology and Oncology 05/13/24 documented as of this encounter
--- OUTSIDE RECORDS SUMMARY | 2024-08-12 08:30 | XMS_ITS | Encounter Summary ---
Author Organization [facility] Address [address] [place] [address] Care Team Providers Care Sped Teacher Name Role Phone Carson Ibrahim MD Primary Care Provider + [phone] Imer Sevilla MD Unavailable iVky Menon MD Unavailable [phone] Amelia Freeman RN Unavailable Unavailable Reason for Visit * Reason Comments Osteomyelitis * Consultation (Urgent) - Closed Specialty Diagnoses / Procedures Referred By Kameron santana Referred To Contact Infectious Diseases Diagnoses Bacteremia Other acute osteomyelitis, other site ([facility] Viky Menon MD [address] [place] [address] [address] [place] [address] Phone: tel: fax: Referral ID Status Reason Start Date Expiration Date V isits Requested Visits Authorized [id number] Closed Specialty Services Required 07/22/2024 01/21/2026 1 1 Encounter Details Date Type Department Care Team (Late st Contact Info) Description 08/12/2024 8:30 AM EDT Office Visit [address] [address] [place] [address] [place] [address] [address] [place] [address] Acute osteomyelitis of left clavicle (CMS/HCC) (Primary Dx); Squamous cell carcinoma, lip; MRSA bacteremia; Bacteremia; Other acute osteomyelitis, other site ([facility]) Social History Tobacco Use Types Packs/Day Years [...] place to sleep or slept in a alf (including now)? No 01/08/2024 Housing Stability Vital Sign Answer Preet e Recorded In the last 12 months, was t here a time when you were not able to pay the mortgage or rent on time? No 07/28/2024 In the past 12 months, how m any times have you moved where you were living? 1 07/28/2024 At any time in the past 12 m [facility], were you homeless or living in a alf (including now)? 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) to steady your nerves or to get [...] Sign Reading Time Taken Comments Blood Pressure 138/82 08/12/2024 8:06 AM EDT man ual Pulse 63 08/12/2024 8:06 AM EDT Temperature 36.6 C (97.9 F) 08/12/2024 8:06 AM EDT Respiratory Rate 16 08/12/2024 8:06 AM EDT Oxygen Saturation 96% 08/12/2024 8:06 AM EDT Inhaled Oxygen Concentration - - Weight 90.7 kg (199 lb 15.3 oz) 08/12/2024 8:06 AM EDT Height 177.8 cm (5' 10 ) 08/12/2024 8:06 AM EDT Body Mass Index 28.69 08/12/2024 8:06 AM EDT documented in this encounter Miscellaneous Notes * Patient Instructions - Brittney Johnson MD - 08/12/2024 8:30 AM EDT - Start topical diclofenac (brand name: Voltaren) twice a day to the affected area * Progress Notes - Brittney Johnson MD - 08/12/2024 8:30 AM EDT Infectious Diseases Outpatient Follow-Up Chief Complaint: MRSA bacteremia, sternoclavicular joint pain and osteomyelitis HPI Henny Daniels Jr. is a 49 y.o. male presenting for ID follow-up. History notable for neck SCC of neck s/p composite resection of oral cavity with segmental mandibulectomy, left radical neck dissection, right modified neck dissection and superficial parotidectomy with right fibular free flap reconstruction on 01/06/2024. 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 Patient recently admitted at [facility] from 07/01 -> 07/08 for MRSA [...] adjacent osteomyelitis. Underwent IR-guided aspiration 07/26, cultures negative. Etiology of current osteoarticular infection likely from seeding during recent MRSA bacteremia for which an appropriate duration of therapy was planned. Pt was discharged 07/28 on IV daptomycin to complete a 6-week duration of therapy, ending 09/02/24 Interval history: Reports pain to the chest has overall lessened, rates it an 8/10 from a 10/10 previously. His regular oxycodone PRN has helped, as have local patches. PICC line working well. Has a wound vac to the RLE wound which is also regressing in size. ROS 14 point review of symptoms negative except as documented in the HPI. Objective Vitals: 08/12/24 0806 BP: 138/82 Pulse: 63 Resp: 16 Temp: 36.6 ??C (97.9 ??F) SpO2: 96% Physical Exam Constitutional: General: He is not in acute distress. Appearance: Normal appearance. He is not ill-appearing. HENT: Head: Normocephalic and atraumatic. Mouth/Throat: Mouth: Mucous membranes are moist. Eyes: General: No scleral icterus. Right eye: No discharge. Left eye: No discharge. Conjunctiva/sclera: Conjunctivae normal. Cardiovascular: Rate and Rhythm: Normal rate and regular rhythm. Pulmonary: Effort: Pulmonary effort is normal. Breath sounds: Normal breath sounds. Abdominal: General: Bowel sounds are normal. Palpations: Abdomen is soft. Musculoskeletal: Cervical back: Normal range of motion. Skin: General: Skin is warm and dry. Neurological: General: No focal deficit present. Mental Status: He is alert and oriented to person, place, and time. Psychiatric: Mood and Affect: Mood normal. Labs: Lab Results Component Value Date WBC 3.6 (A) 08/09/2024 HGB 11.10 (A) 08/09/2024 HCT 36.2 (L) 07/28/2024 MCV 89 07/28/2024 PLT 315 08/09/2024 Chemistry Lab Results Component Value Date/Time NA 137 07/28/2024 0355 K 3.8 07/28/2024 0355 CL 102 07/28/2024 0355 CO2 26 07/28/2024 0355 BUN 15 08/09/2024 0000 BUN 9 07/28/2024 0355 CREATININE 0.71 08/09/2024 0000 CREATININE 0.71 07/28/2024 0355 Lab Results Component Value Date/Time CALCIUM 9.7 07/28/2024 0355 ALKPHOS 73 08/09/2024 0000 ALKPHOS 57 07/22/2024 0857 AST 18 08/09/2024 0000 AST 25 07/22/2024 0857 ALT 11 (A) 08/09/2024 0000 ALT 7 (L) 07/22/2024 0857 BILITOT 0.6 08/09/2024 0000 BILITOT 0.6 07/22/2024 0857 06/29 BCX MRSA (OSH, see Media) 07/22 Bcx, 07/26 Bcx no growth 07/21 CT Chest with IV contrast IMPRESSION: [...] Clinical correlation and joint aspiration is recommended. Assessment/Plan Henny Daniels Jr. is a 49 y.o. male presenting for ID follow-up. History notable for neck SCC of neck s/p composite resection of oral cavity with segmental mandibulectomy, left radical neck dissection, right modified neck dissection and superficial parotidectomy with right fibular free flap reconstruction on 01/06/2024. 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 Thereafter admitted to [facility] for further management after a 07/21 CT Chest showed concern for left clavicular head OM, and adjacent potential septic arthritis/soft tissue infection. Ultimately discharged on IV daptomycin to complete a 6-week duration of therapy Problem List - Left supraclavicular joint septic arthritis, adjacent osteomyelitis - Recent MRSA bloodstream infection - History of neck SCC Plan - Continue IV daptomycin 10mg/kg q24 hours as dosed. End date is 09/02/24 - OPAT labs reviewed and without concerns at this time - Sent script for topical Voltaren twice daily to the affected joint given the ongoing pain. Discussed that some pain is expected given the joint destruction and adjacent osteomyelitis/soft tissue infection - Will plan for PICC removal after completion of IV therapy at next appt Return to clinic on 09/02/24 as scheduled Brittney Johnson MD I spent 35 minutes in this encounter, including time for history taking, physical exam, counseling,coordination of care documented in this encounter Plan of Treatment Upcoming Encounters Date Type Department Care Team (Late st Contact Info) Description 09/23/2024 1:45 PM EDT Evaluation [facility] operator [facility] 800 [facility] [address] [place] [address] Kelsey Cerda, DMD [address] [facility] [address] [place] [address] 10/06/2024 11:45 AM EDT Office Visit Pav CC Head, Neck & Respiratory 800 [facility], 2nd [place] [address] Matias Eldridge MD 800 [facility] [address] [place] [address] 12/13/2024 10:00 AM EDT Office Visit Pav CC Head, Neck & Respiratory 800 [facility], [address]nd [place] [address] Viky Menon MD 800 [facility] [address] [place] [address] 12/13/2024 1:00 PM EDT Appointment PAV CC Radiation 800 [id number] [place] [address] Imer Sevilla MD [address] [facility] [address] [place] [address] Scheduled Procedures Name Priority Associated Diagnoses Date/Ti me APPLICATION, GRAFT, SKIN, SPLIT-THICKNESS Wound of right lower extremity PREPARATION, WOUND, PRIOR TO SKIN GRAFT APPLICATION Wound of right lower extremity documented as of this encounter Visit Diagnoses Diagnosis Acute osteomyelitis of left clavicle (CMS/HCC)- Primary Squamous cell carcinoma, lip Other malignant neoplasm of skin of lip MRSA bacteremia Bacteremia Other acute osteomyelitis, other site (CMS/HCC) documented in this encounter Additional Health Concerns Infection Onset Date 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 02/19/2024 Assessment Noted Time A fall risk assessment has been complete d for the patient 08/12/2024 9:47 AM EDT A Body Mass Index follow-up plan has been documented for the patient 08/12/2024 8:35 AM EDT documented as of this encounter Care Teams Sped Teacher Relationship Specialty Start Date End Date Carson Ibrahim MD [address] [facility] [address] [place] [address] PCP - General 11/20/23 Imer Sevilla MD [address] [facility] [address] [place] [phone] Consulting Physician Radiation Oncology 02/27/24 Viky Menon MD 800 [facility] Liz Hester [facility] [address] [place] [phone] Consulting Physician Medical Oncology 04/21/24 Amelia Freeman, RN Registered Nurse Hematology and Oncology 05/13/24 documented as of this encounter
--- OUTSIDE RECORDS SUMMARY | 2024-08-12 08:53 | XMS_ITS | Encounter Summary ---
Author Organization [facility] Address [address] [place] [address] Care Team Providers Care Bridge Maintenance Worker Name Role Phone Carson Ibrahim MD Primary Care Provider + [phone] Imer Sevilla MD Unavailable Viky Menon MD Unavailable +[phone] Amelia Freeman RN Unavailable Unavailable Reason for Referral * Consultation (Routine) - Authorized Specialty Diagnoses / Procedures Referred By Kameron santana Referred To Contact Oral Surgery Diagnoses Malignant neoplasm of external lower lip Imer Sevilla MD [address] [place] [address] Phone: tel: fax: [facility] [address] [place] [address] [address] [place] [address] Phone: tel: Referral ID Status Reason Start Date Expiration Date Visits Requested Visits Authorized [id number] Authorized Specialty Services Required 08/12/2024 02/11/2026 1 1 Reason for Visit * Reason Comments Follow-up Encounter Details Date Type Department Care Team (Latest Contact Info) Description 08/12/2024 8:53 AM EDT - 08/12/2024 11:59 PM EDT Hospital Encounter [facility] Radiation [id number] [place] [address] Imer Sevlila MD [address] [place] [address] Malignant neoplasm of external lower lip (Primary [...] any time in the past 12 m [facility], were you homeless or living [...] drink first t idalia in the morning (EYE-CLOTHES SHAKER) to steady your nerves or to get [...] Gastelum MD - 08/12/2024 10:00 AM EDT [facility] RADIATION MEDICINE RADIATION ONCOLOGY HOME SERVICE DIRECTOR FOLLOW UP NOTE Henny Daniels Jr. is [...] ill-appearing. HENT: Nose: Nose normal. Mouth/Throat: Lips: [place]. No lesions. Mouth: Mucous membranes are dry. [...] 09/02/2024 9:30 AM Abel Johnson MD [id number] Felicity 09/08/2024 10:40 AM Matias Eldridge MD HNRCHROACH [...] II, MD, PGY-5 Resident Physician, Radiation Oncology [facility] Pager: [phone] [1] Social History Tobacco Use Smoking status: [...] Description 09/23/2024 1:45 PM EDT Evaluation [facility] [address] [place] [phone] Kelsey Cerda, DMD [address] [place] [address] 10/06/2024 11:45 AM EDT Office Visit [facility] Head, Neck & Respiratory [address] [facility], 2nd [place] [address] Matias Eldridge MD [address] [facility] 2nd [place] [address] 12/13/2024 10:00 AM EDT Office Visit [facility] Head, Neck & Respiratory [address] [facility], 2nd [place] [address] Viky Menon MD [address] [facility] [address] [place] [address] 12/13/2024 1:00 PM EDT Appointment [facility] Radiation [address] [facility]. [id number] [place] [address] Imer Sevilla MD [address] [facility] [address] [place] [address] Scheduled Procedures Name Priority Associated [...] documented as of this encounter Care Teams Bridge Maintenance Worker Relationship Specialty Start Date End Date Carson Ibrahim MD [address] [facility] [address] [place] [address] PCP - General 11/20/23 Imer Sevilla MD [address] [facility] [address] [place] [id number] Consulting Physician Radiation Oncology 02/27/24 Viky Menon MD [address] [facility] [address] [facility] [address] [place] [address] Consulting Physician Medical Oncology 04/21/24 Amelia Freeman, RN Registered Nurse Hematology and Oncology 05/13/24 documented as of this encounter
--- OUTSIDE RECORDS SUMMARY | 2024-09-01 06:30 | XMS_ITS ---
Author [facility] Address [address] [facility] [address] [address] [facility] [address] [place] [phone] Care Team Providers Care Data Control Clerk Supervisor Name Role Phone Carson Ibrahim Primary Care Provider Allergies Allergen (clinical drug ingredient) Drug/Non Drug Allergy documented on EMR Reaction Allergy Type Onset Date Status Penicillin Rash Drug Allergy Active Reason For Referral Diagnosis 1 Foraminal stenosis o f lumbar region (M48.061) Diagnosis 2 Lumbar facet arthrop athy (M47.816) Diagnosis 3 Spinal stenosis of l umbar region without neurogenic claudication (M48.061) Diagnosis 4 Degeneration of inte rvertebral disc of lumbar region with discogenic back pain (M51.360) Diagnosis 5 Bulging lumbar disc (M51.369) Diagnosis 6 Low back pain, unspe cified (M54.50) Referral Organization [facility] Referring Provider First Name Carson Referring Provider Last Name Patrice Referring Provider Speciality Family Pra ctice Referred Provider Jarvis Dasilva Referred Provider Specialty Pain Managem ent General Notes Eliana Najera 2024 11:09:01 AM > faxed to [facility] Pain Management Referral Priority Routine REASON FOR VISIT 4 weeks Medications Medication SIG (Take, Route, Fr equency, Duration) Notes Start Date End Date Status oxyCODONE HCl 15 MG 1 tablet Orally every 4 hrs Active Wheelchair - as directed 01/28/2024 Acti ve Famotidine 20 MG 1 tablet at bedtime as needed Orally Twice a day for 30 day(s) Active Problems Problem Type SNOMED Code ICD Code Onset Dates Problem Status W/U Status Risk Notes Problem 93224492 Other chronic pain (G89.29) Active confirmed Problem 121681656 Lumbar foraminal stenosis (M48.061) Active confirmed Problem 49128298 Spinal stenosis of lumbar region without neurogenic claudication (M48.061) Active confirmed Vital Signs Blood pressure systolic 130 mm Hg 09/02/19 25 Blood pressure diastolic 80 mm Hg 025 Heart Rate 64 /min 09/01/2024 Height 69.5 in 09/01/2024 Weight 197 lbs 09/01/2024 BMI 28.67 kg/m2 09/01/2024 Encounters Encounter Location Date Provider Diagnosis [facility] [address] [place], [place] [phone] 09/01/2024 Carson Ibrahim HFrEF (heart failure with reduced ejection fraction) I50.20 ; Other chronic pain G89.29 ; Low back pain, unspecified M54.50 ; 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 ; Lumbar foraminal stenosis M48.061 ; Spinal stenosis of lumbar region without neurogenic claudication M48.061 ; Bulging lumbar disc M51.369 and BMI 28.0-28.9,adult Z68.28 Assessments Encounter Date Diagnosis (ICD Code) Assessment Notes Treatment Notes Treatment Clinical Notes Section Notes 09/01/2024 HFrEF (heart failure with reduced ejection fraction) (ICD-10 - I50.20) Recent Echo from and stress test from [facility] reviewed with patient in office today. Patient is asymptomatic at this point. He stopped metoprolol due to bradycardia. He with keep follow up with cardiology in a few weeks 09/01/2024 Other chronic pain (ICD-10 - G89.29) 09/01/2024 Low back pain, unspecified (ICD-10 - M54.50) 09/01/2024 Degeneration of intervertebral disc of lumbar region with discogenic back pain (ICD-10 - M51.360) 09/01/2024 Lumbar foraminal stenosis (ICD-10 - M48.061) 09/01/2024 Spinal stenosis of lumbar region without neurogenic claudication (ICD-10 - M48.061) 09/01/2024 Bulging lumbar disc (ICD-10 - M51.369) 09/01/2024 BMI 28.0-28.9,adult (ICD-10 - Z68.28) Plan Of Treatment Treatment Notes Assessment Notes HFrEF (heart failure with re duced ejection fraction) Recent Echo from and stress test from [facility] reviewed with patient in office today. Patient is asymptomatic at this point. He stopped metoprolol due to bradycardia. He with keep follow up with cardiology in a few weeks Referrals Referral Date Details 09/01/2024 09/01/2024, Jarvis Elizondo x Next Appt Details Follow Up: 3 Months fasting, Reason: Provider Name:Carson Esteban ry, 12/02/2024 09:30:00 AM, [address], [place], [place], [id number], Progress Notes * NOE DANIELSOB:1975 (49 yo M)Acc No.[id number]:09/01/2024 Progress Notes Patient: PERRY JOHNSON Provider: Mila Ibrahim M.D. :1975 A ge:49 Y S ex:Male Date:09/01/2024 Address:[address] [place] [address], [place] [address] Subjective: * Chief Complaints: * 1 . 4 weeks. * HPI: H PI: 49 year old male presents with c/o Here for follow up on: o n CHF. He recently had an Echo and stress test. Pt states he is doing well and does not have any concerns today. * ROS: D ERMATOLOGY: no R elaine. [...] and bilateral neck dissection and tracheostomy - 2023, Congestive Heart Failure, Dx: 2024. 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 * Hospitalization/Major Diagno stic Procedure: aiyana crow stone surgery , [facility] ER - UTI 11/08/2018, [facility] - Neck Surgery 10/13-. * Family History: F ather: 62 yrs, diagnosed with Heart Disease. M other: alive, diagnosed with Mental Illness. S iblings: alive, family history unknown . C daniel: alive. 1 sister(s) . 3 son(s) - [...] as needed Orally Twice a day , Discontinued Metoprolol Succinate 25 MG Capsule ER 24 Hour Sprinkle 1 capsule Orally Once a day , Discontinued Gabapentin 400 MG Capsule 1 capsule Orally Once a day , Discontinued Cyclobenzaprine HCl 5 MG Tablet 1 tablet as needed Orally Three times a day , Medication List reviewed and reconciled with the patient * Allergies: P enicillin: Rash. Objective: * Vitals: W t: 197, Temp: 98.0, BP: 130/80, HR: 64, Nurse: jovanny, Ht: 69.5, BMI:28.67. * Examination: G eneral Examination: General Appearance: N AD. Heart: R SR. Lungs: c lear to auscultation. Skin: w ound vac in place over right lower leg site. Extremities: n o leg edema, PICC line in right upper extremity. Assessment: * Assessment: 1. H FrEF (heart failure with reduced ejection fraction) - I50.20 (Primary) 2 .?Other chronic pain - G89.29 3 . L ow back pain, unspecified - M54.50 ? 4 . D egeneration of intervertebral disc of lumbar region with discogenic back pain - M51.360 5 . L umbar foraminal stenosis - M48.061 6 . S lalita stenosis of lumbar region without neurogenic claudication - M48.061 7 . B ulging lumbar disc - M51.369 8 . B WI 28.0-28.9,adult - Z68.28 Plan: * Treatment: 2. L ow back pain, unspecified Referral To:[facility] Reason: 3. D egeneration of intervertebral disc of lumbar region with discogenic back pain Referral To:[facility] Reason: 4. S lalita stenosis of lumbar region without neurogenic claudication Referral To:[facility] Reason: 5. B ulging lumbar disc Referral To:[facility] Reason: 6. O thers Referral To:[facility] Reason: * Procedure Codes: 1 036F TOBACCO NON-USER, G8420 BMI<30 AND >=22 CALC & DOCU, G8783 BP SCR PRFRM RCMDD DEFIND SCR INTVL, G8752 MOST RECENT SYSTOLIC BP < 140MM HG, G8754 MOST RECENT DIASTOLIC BP < 90MM HG * Follow Up: 3 Months fasting * Billing Information: * Visit Code: 27973 Office Visit, Est Pt., Level 4. * Procedure Codes: 1036F TOBACCO NON-USER. G8420 BMI<30 AND >=22 CALC & DOCU. G8783 BP SCR PRFRM RCMDD DEFIND SCR INTVL. G8752 MOST RECENT SYSTOLIC BP < 140MM HG. G8754 MOST RECENT DIASTOLIC BP < 90MM HG. * Electronic signature of Alia Ibrahim MD on 09/15/2024 at 11:14 AM EDT Sign off status: Pending * Provider: Mila Ibrahim M.D. Date: 0 09/01/2024 Generated for Cristhian louis/Constanza/Karinsmitting on: 0 09/15/2024 11:14 AM EDT History and Physical Notes * HPI (History of Present Illness) Category Sub-Category Detail Notes Category Not es HPI Here for follow up on: on CHF. H e recently had an Echo and stress test. Pt states he is doing well and does not have any concerns today Examination Category Sub-Category Detail Notes Category Not es General Examination Heart: RSR Lungs: clear to auscultatio n Extremities: no leg edema, PICC l ine in right upper extremity General Appearance: NAD Skin: wound vac in place o niru right lower leg site Consultation Request Notes Referral Date Referring Provider Referred Provider Not es 09/01/2024 Carson Ibrahim Anjum
--- OUTSIDE RECORDS SUMMARY | 2024-09-02 09:30 | XMS_ITS | Encounter Summary ---
Author Organization Healthcare Address [address] [place] [address] Care Team Providers Care Car Mechanic Name Role Phone Carson Ibrahim MD Primary Care Provider + [phone] Imer Sevilla MD Unavailable Viky Menon MD Unavailable [phone] Amelia Freeman RN Unavailable Unavailable Encounter Details Date Type Department Care Team (Late st Contact Info) Description 09/02/2024 9:30 AM EDT Office Visit [facility] [address] [place] [address] Abel Johnson MD 3101 [facility] [address] [place] [address] MRSA bacteremia (Primary Dx); Acute [...] in a fci (including now)? No 01/08/2024 PHQ-9 Answer Date [...] time in the past 12 m [facility], were you homeless or living [...] drink first t idalia in the morning (EYE-PERCOLATOR OPERATOR) to steady your nerves or to get rid of a hangover? 0 07/22/2024 CAGE Questionnaire Score 0 025 Utilities Answer Date Recorded In the past 12 months has e [employer], gas, oil, or water [employer] threatened to shut off services in your [...] Notes * Progress Notes - Michael Bailey, CONTROL ROOM AGENT - 09/02/2024 9:30 AM EDT Infectious Diseases [...] chemotherapy and XRT. Patient recently admitted at [facility] from 07/01 -> 07/08 for MRSA [...] and XRT and was recently admitted at [facility] from 07/01 -> 07/08 for MRSA bacteremia, where he notes left clavicle/shoulder pain first started. Thereafter admitted to [facility] for further management after a [...] to clinic as needed Michael Bailey APRN [address] [address] Cosigned by Abel Johnson MD at 09/02/2024 [...] Description 09/23/2024 1:45 PM EDT Evaluation DSB control room agent Clinic [address] [facility] [address] [place] [address] Kelsey Cerda, DMD [address] [facility] [address] [place] [address] 10/06/2024 11:45 AM EDT Office Visit [facility] [address] [facility], 2nd [place] [phone] Matias Eldridge MD [address] [facility] [address] [place] [address] 12/13/2024 10:00 AM EDT Office Visit [facility] [address] [facility], 2nd [place] [address] Viky Menon MD [address] [facility] [address] [place] [address] 12/13/2024 1:00 PM EDT Appointment [facility] [address] [facility]. [address] [place] [phone] Imer Sevilla MD 800 [facility] [address] [place] [address] Scheduled Orders Name Type Priority Associated Diagnoses Orde r Schedule PICC Removal (Clinic-Performed) Procedures Routine Acute osteomyelitis of left clavicle (CMS/HCC) MRSA bacteremia 1 Occurrences starting 09/02/2024 until 03/06/2026 Scheduled Procedures Name Priority Associated Diagnoses Date/Ti [...] documented as of this encounter Care Teams Car Mechanic Relationship Specialty Start Date End Date Carson Ibrahim MD [address] [facility] [address] [place] [address] PCP - General 11/20/23 Imer Sevilla MD 800 [facility] [address] [place] [address] Consulting Physician Radiation Oncology 02/27/24 Viky Menon MD 800 [facility] [address] [place] [address] Consulting Physician Medical Oncology 04/21/24 Amelia Freeman, RN Registered Nurse Hematology and Oncology 05/13/24 documented as of this encounter
--- OUTSIDE RECORDS SUMMARY | 2024-09-08 10:45 | XMS_ITS | Encounter Summary ---
Author Organization Healthcare Address [address] [place] [address] Care Team Providers Care Pickle Maker Name Role Phone Carson Ibrahim MD Primary Care Provider + [phone] Imer Sevilla MD Unavailable Viky Menon MD Unavailable [phone] Amelia Freeman RN Unavailable Unavailable Reason for Visit * Reason Comments Follow-up Encounter Details Date Type Department Care Team (Latest Contact Info) Description 09/08/2024 10:45 AM EDT Office Visit [facility] Head[facility] Neck [facility] Respiratory [address] [facility], 2nd [place] [address] Matias Eldridge MD 800 [facility] [address] [place] [address] Squamous cell carcinoma, lip (Primary Dx); Malignant neoplasm of external lower lip; Dysphagia, oropharyngeal Social History Tobacco Use Types Packs/Day Years [...] place to sleep or slept in a halfway (including now)? No 01/08/2024 PHQ-9 Answer Date [...] any time in the past 12 m [facility], were you homeless or living in a halfway (including now)? No 07/28/2024 CAGE ASSESSMENT Answer [...] drink first t idalia in the morning (EYE-COKE WHEELER) to steady your nerves or to get rid of a hangover? 0 07/22/2024 CAGE Questionnaire Score 0 025 Utilities Answer Date Recorded In the past 12 months has th e [employer], gas, oil, or water company threatened to [...] Sign Reading Time Taken Comments Blood Pressure 118/73 09/08/2024 9:51 AM EDT Pulse 68 09/08/2024 9:51 AM EDT Temperature 36.6 C (97.8 F) 09/08/2024 9:51 AM EDT Respiratory Rate 16 09/08/2024 9:51 AM EDT Oxygen Saturation 96% 09/08/2024 9:51 AM EDT Inhaled Oxygen Concentration - - Weight 88.6 kg (195 lb 5.2 oz) 09/08/2024 9:51 A M EDT Height - - Body Mass Index 28.03 09/02/2024 8:45 AM EDT documented in this encounter Plan of Treatment Upcoming Encounters Date Type Department Care Team (Late st Contact Info) Description 09/23/2024 1:45 PM EDT Evaluation [facility] [address] [place] [address] Kelsey Cerda, DMD [address] [place] [address] 10/06/2024 11:45 AM EDT Office Visit [facility] Head[facility] Neck [facility] Respiratory [address] [facility], 2nd [place] [address] Matias Eldridge MD [address] [facility] 2nd [place] [address] 12/13/2024 10:00 AM EDT Office Visit [facility] Head[facility] Neck & Respiratory [address] [facility], 2nd [place] [address] Viky Menon MD [address] [facility] [address] [place] [address] 12/13/2024 1:00 PM EDT Appointment [facility] Radiation [address] [facility]. [address] [place] [address] Imer Sevilla MD [address] [facility] [address] [place] [address] Scheduled Procedures Name Priority Associated Diagnoses Date/Ti me APPLICATION, GRAFT, SKIN, SPLIT-THICKNESS Wound of right lower extremity PREPARATION, WOUND, PRIOR TO SKIN GRAFT APPLICATION Wound of right lower extremity documented as of this encounter Visit Diagnoses Diagnosis Squamous cell carcinoma, lip- Primary Other malignant neoplasm of skin of 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 Malignant neoplasm of lower lip, [place] border Dysphagia, oropharyngeal Dysphagia, oropharyngeal phase documented in this encounter Additional Health Concerns Infection Onset Date 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 02/19/2024 Assessment Noted Time PHQ-9 Depression Total Score: 0 09/03/19 25 8:44 AM EDT A fall risk assessment has been complete d for the patient 09/08/2024 9:52 AM EDT A Body Mass Index follow-up plan has been documented for the patient 09/02/2024 9:56 AM EDT documented as of this encounter Care Teams Pickle Maker Relationship Specialty Start Date End Date Carson Ibrahim MD [address] [facility] [place] [address] [place] [address] PCP - General 11/20/23 Imer Sevilla MD [address] [facility] [address] [place] [address] Consulting Physician Radiation Oncology 02/27/24 Viky Menon MD [address] [facility] [address] [place] [address] Consulting Physician Medical Oncology 04/21/24 Amelia Freeman, RN Registered Nurse Hematology and Oncology 05/13/24 documented as of this encounter
--- OUTSIDE RECORDS SUMMARY | 2024-09-10 09:13 | XMS_ITS | Encounter Summary ---
Author Organization [facility] Address [address] [id number] Care Team Providers Care Police Detention Attendant Name Role Phone Carson Ibrahim MD Primary Care Provider + [phone] Imer Sevilla MD Unavailable Viky Menon MD Unavailable +[phone] Amelia Freeman RN Unavailable Unavailable Reason for Referral * Imaging (Routine) - Pending Review Specialty Diagnoses / Procedures Referred By Contac t Referred To Contact Radiology Diagnoses Secondary malignant neoplasm lymph nodes of head, face and neck (CMS/HCC) Procedures CT Chest w IV Contrast Imer Sevilla MD [address] [address] Phone: tel: fax: Referral ID Status Reason Start Date Expiration Date V isits Requested Visits Authorized [id number] Pending Review 09/12/2024 03/14/2026 1 1 * Imaging (Routine) - Pending Review Specialty Diagnoses / Procedures Referred By Kameron t Referred To Contact Radiology Diagnoses Secondary malignant neoplasm lymph nodes of head, face and neck (CMS/HCC) Procedures CT Soft Tissue Neck w IV Contrast Imer Sevilla MD [address] [address] Phone: tel: fax: Referral ID Status Reason Start Date Expiration Date V isits Requested Visits Authorized [id number] Pending Review 09/12/2024 03/14/2026 1 1 Reason for Visit * Reason Comments Follow-up Encounter Details Date Type Department Care Team (Latest Contact Info) Description 09/10/2024 9:13 AM EDT Hospital Encounter [facility] Radiation [id number] [place] [address] Imer Sevilla MD [address] [place] [address] Secondary malignant neoplasm lymph nodes of head, face and neck (CMS/HCC) (Primary Dx) Social History Tobacco Use Types [...] a long term (including now)? No 01/08/2024 PHQ-9 Answer Date [...] any time in the past 12 m [facility], were you homeless or living in a long term (including now)? No 07/28/2024 CAGE ASSESSMENT Answer [...] first t idalia in the morning (EYE-SENIOR ADVISOR) to steady your nerves or to [...] Sign Reading Time Taken Comments Blood Pressure 108/69 09/10/2024 9:53 AM EDT Pulse 52 09/10/2024 9:53 AM EDT Temperature - - Respiratory Rate 18 09/10/2024 9:47 AM EDT Oxygen Saturation 97% 09/10/2024 9:53 AM EDT Inhaled Oxygen Concentration - - Weight 88.6 kg (195 lb 5.2 oz) 09/10/2024 9:47 A M EDT Height - - Body Mass Index 28.03 09/02/2024 8:45 AM EDT documented in this encounter Miscellaneous Notes * Progress Notes - Vickey Mehta MD - 09/10/2024 10:15 AM EDT [facility] RADIATION MEDICINE RADIATION ONCOLOGY SKI PATROL DIRECTOR FOLLOW UP NOTE Henny Daniels Jr. [...] unfortunately lost to follow-up after February 2021 untilJuly 2023 when he presented to medical oncology [...] managed medically and dysgeusia as well. He had skin toxicities managed with Aquaphor and xerostomia managed with magic mouthwash. Recently, Mr. 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 He recently completed a 6-week course of Daptomycin on 09/02/24. He had a repeat PET/CT on 08/11/24, which showed a small right station VIIb LN that was indeterminate. Additionally, there was some mild uptake in the left paraspinal muscle that was also indeterminate. Finally, there was intense uptake at the L clavicular head and at T10/T11. It was unclear whether the thoracic lesion represents malignancy or spread of his infection. Most recently, Mr. Daniels was seen by Dr. Eldridge on 09/09/24, who performed flexible laryngoscopy and found no evidence of mal ignancy. At our last evaluation 1 month ago, Mr. Daniels was planned to have his case discussed at tumor board to determine how to proceed. He presents today for his scheduled follow up. Interval History: Mr. Daniels returns to clinic in stable condition. He denies any new symptoms or medical conditions since his last evaluation a month ago. KPS: 80: Normal activity with effort, some [...] (FLEXERIL) 5 mg, 3 times daily PRN diclofenac (Voltaren) 1 % topical gel Transdermal, 2 times daily, Apply as directed to the chest atthe area of pain famotidine (PEPCID) 20 mg, Nightly PRN methocarbamol (Robaxin) 500 MG tablet TAKE 2 TABLETS BY MOUTH EVERY 8 HOURS NEEDED FOR MUSCLE PAIN AND SPASM metoprolol succinate XL (TOPROL-XL) 25 mg, Oral, Daily, Do not crush or chew. metroNIDAZOLE (Flagyl) 500 MG tablet Multiple Vitamin (multivitamin) tablet 1 tablet, Daily ondansetron ODT (ZOFRAN-ODT) 8 mg, Oral, Every 8 hours PRN oxyCODONE (ROXICODONE) 10-20 mg, Oral, Every 4 hours PRN polyethylene glycol (MIRALAX) 17 g, Oral, Daily PRN sodium chloride 0.9 % solution traZODone (DESYREL) 100 mg, Nightly vancomycin (Vancocin) 10 g reconstituted solution Allergies: Penicillins Physical Exam: There were no vitals taken for this visit. Wt Readings from Last 3 Encounters: 09/08/24 88.6 kg (195 lb 5.2 oz) 09/02/24 90 kg (198 lb 6.6 oz) 08/12/24 90.3 kg (199 lb 1.2 oz) Physical Exam Constitutional: Appearance: Normal appearance. He is not ill-appearing. HENT: Nose: Nose normal. Mouth/Throat: Lips: [place]. No lesions. Mouth: Mucous membranes are dry. [...] hyperpigmentation to xrt treatment area. RLE with clean, dry dressings Neurological: Mental Status: He is alert. DATA: [...] post resection and chemoradiation completed on 05/18/2024. Plan -RTC in 3-month with repeat CT Chest and Neck -Case to be discussed in multi-disciplinary tumor board Post-Radiation Therapy : Today he is stable though has continued weight . There are no signs of acute complications or radiation toxicities at this time. -Encouraged improved oral hygiene, use of salt/soda mouth wash in am with OTC mouth wash brand for dry mouth as needed. (Handout recipe provided) -Encouraged oral intake of water. -Brushing of tongue. ROM Neck: provided education on the importance [...] Future Appointments Date Time Provider Department Center 09/10/2024 10:15 AM [facility] 09/23/2024 1:45 PM Kelsey Cerda DMD [facility] 10/06/2024 11:45 AM Matias Eldridge MD [facility] 12/13/2024 10:00 AM Viky Menon MD [facility] Please coordinate Jazmyn or Sinan visit(s) with other Chidi visits and or imaging. A total of 30 minutes was spent preparing, performing an examination, counseling, educating the patient, and care coordination. Vickey Mehta II, MD, PGY-5 Resident Physician, Radiation Oncology [facility] Pager: [phone] [1] Social History Tobacco Use Smoking status: Never Passive exposure: Never Smokeless tobacco: Never Vaping Use Vaping status: Never Used Substance Use Topics Alcohol use: Yes Comment: social. Drug use: Never Cosigned by Imer Sevilla MD at 09/13/2024 9:14 AM EDT Associated attestation - Imer Sevilla MD - 09/13/2024 9:14 AM EDT I saw and evaluated the patient with the resident/fellow. I discussed the case with the resident/fellow and agree with the findings and plan as documented. documented in this encounter Plan of Treatment Upcoming Encounters Date Type Department Care Team (Late st Contact Info) Description 09/23/2024 1:45 PM EDT Evaluation [facility] [address] [address] Kelsey Cerda, DMD [address] [place] [address] 10/06/2024 11:45 AM EDT Office Visit [facility] Head[facility] Neck & Respiratory 800 [facility], 2nd [place] [address] Matias Eldridge MD 800 [facility] 2nd [place] [address] 12/13/2024 10:00 AM EDT Office Visit [facility] Head, Neck & Respiratory 800 [facility], 2nd [place] [address] Viky Menon MD 800 [facility] [address] [place] [address] 12/13/2024 1:00 PM EDT Appointment [facility] Radiation 800 [facility]. [id number] [place] [address] Imer Sevilla MD 800 [facility] [address] [place] [address] Scheduled Orders Name Type Priority Associated Diagnoses Orde r Schedule CT Soft Tissue Neck w IV Contrast Imaging Routine Secondary malignant neoplasm lymph nodes of head, face and neck (CMS/HCC) Expected: 12/13/2024 (Approximate), Expires: 03/16/2026 CT Chest w IV Contrast Imaging Routine Secondary malignant neoplasm lymph nodes of head, face and neck (CMS/HCC) Expected: 12/13/2024 (Approximate), Expires: 03/16/2026 Scheduled Procedures Name Priority Associated Diagnoses Date/Ti me APPLICATION, GRAFT, SKIN, SPLIT-THICKNESS Wound of right lower extremity PREPARATION, WOUND, PRIOR TO SKIN GRAFT APPLICATION Wound of right lower extremity documented as of this encounter Visit Diagnoses Diagnosis Secondary malignant neoplasm lymph nodes of head, face and neck (CMS/HCC)- Primary documented in this encounter Additional Health Concerns Infection Onset Date 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 02/19/2024 Assessment Noted Time PHQ-9 Depression Total Score: 0 09/03/19 8:44 AM EDT A fall risk assessment has been complete d for the patient 09/10/2024 9:52 AM EDT A Body Mass Index follow-up plan has been documented for the patient 09/02/2024 9:56 AM EDT documented as of this encounter Care Teams Police Detention Attendant Relationship Specialty Start Date End Date Carson Ibrahim MD [address] [address] PCP - General 11/20/23 Imer Sevilla MD 800 [facility] [address] [place] [address] Consulting Physician Radiation Oncology 02/27/24 Viky Menon MD 800 [facility] [address] [facility] [address] [place] [address] Consulting Physician Medical Oncology 04/21/24 Amelia Freeman, RN Registered Nurse Hematology and Oncology 05/13/24 documented as of this encounter
--- OUTSIDE RECORDS SUMMARY | 2024-09-15 11:15 | XMS_ITS | Encounter Summary ---
Author Organization [facility] Address 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, face and neck (CMS/HCC) Procedures CT Soft Tissue Neck w IV Contrast Viky Menon MD [address] [address] Phone: tel: fax: Referral ID Status Reason Start Date Expiration Date V isits Requested Visits Authorized [id number] Pending Review 07/26/2024 01/25/2026 1 1 * Imaging (Routine) - Pending Review Specialty Diagnoses / Procedures Referred By Kameron santana Referred To Contact Radiology Diagnoses 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, 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, face and neck (CMS/HCC) Procedures CT Chest w IV Contrast Viky Menon MD [address] [address] Phone: tel: fax: Referral ID Status Reason Start Date Expiration Date V isits Requested Visits Authorized [id number] Pending Review 07/26/2024 01/25/2026 1 1 Encounter Details Date Type Department Care Team (Late st Contact Info) Description 07/26/2024 Orders Only Pav CC Head, Neck & Respiratory 800 [facility], [address]nd [place] [address] Viky Menon MD 800 [facility] [address] [place] [address] 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); Squamous cell carcinoma, lip; Squamous cell carcinoma of neck; Secondary malignant neoplasm lymph nodes of head, face and neck (CMS/HCC) Social History Tobacco Use Types Packs/Day [...] place to sleep or slept in a care home (including now)? No 01/08/2024 Housing Stability [...] in the past 12 m [facility], were you homeless or living in a care home (including now)? No 07/28/2024 CAGE ASSESSMENT [...] drink first t idalia in the morning (EYE-ENVIRONMENTAL MAINTENANCE WORKER) to steady your nerves or to get rid of a hangover? 0 07/22/2024 CAGE Questionnaire Score 0 025 Utilities Answer Date Recorded In the past 12 months has th e adSage, gas, oil, or water company threatened to [...] Andersen RN documented as of this encounter Plan of Treatment Upcoming Encounters Date Type Department Care Team (Late st Contact Info) Description 09/23/2024 1:45 PM EDT Evaluation [facility] crop farmer [facility] 800 [facility] [address] [place] [address] Kelsey Cerda, DMD [address] [facility] [address] [place] [address] 10/06/2024 11:45 AM EDT Office Visit Pav [facility] Head, Neck & Respiratory 800 [facility], [address]nd [place] [address] Matias Eldridge MD 800 [facility] [address] [place] [address] 12/13/2024 10:00 AM EDT Office Visit [facility] Head, Neck & Respiratory 800 [facility], [address]nd [place] [address] Viky Menon MD 800 [facility] Liz Hester [facility] [address] [place] [address] 12/13/2024 1:00 PM EDT Appointment PAV CC Radiation [address] [place] [address] Imer Sevilla MD [address] [place] [address] Scheduled Orders Name Type Priority Associated Diagnoses Orde r Schedule CT Chest w IV Contrast Imaging Routine 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, 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, face and neck (CMS/HCC) Expected: 12/06/2024, Expires: 01/26/2026 CT Soft Tissue Neck w IV Contrast Imaging Routine 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, 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, face and neck (CMS/HCC) Expected: 12/06/2024, Expires: 01/26/2026 Thyroid Stimulating Hormone, Plasma Lab Routine 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, 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, face and neck (CMS/HCC) Expected: 12/06/2024, Expires: 07/26/2025 CBC and Differential Lab Routine 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, 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, face and neck (CMS/HCC) Expected: 12/06/2024, Expires: 01/26/2026 Comprehensive Metabolic Panel, Plasma Lab Routine 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, 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, face and neck (CMS/HCC) Expected: 12/06/2024, Expires: 01/26/2026 Scheduled Procedures Name Priority Associated Diagnoses Date/Ti me APPLICATION, GRAFT, SKIN, SPLIT-THICKNESS Wound of right lower extremity PREPARATION, WOUND, PRIOR TO SKIN GRAFT APPLICATION Wound of right lower extremity documented as of this encounter Visit Diagnoses Diagnosis Malignant neoplasm of external lower lip- Primary Malignant neoplasm of lower lip, vermilion border Squamous cell carcinoma, lip Other malignant neoplasm of skin of 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, face and neck (CMS/HCC) documented in this encounter Additional Health Concerns Infection Onset Date 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 02/19/2024 Assessment Noted Time A fall risk assessment has been complete d for the patient 07/22/2024 8:50 AM EDT A Body Mass Index follow-up plan has been documented for the patient 07/28/2024 3:32 PM EDT documented as of this encounter Care Teams Document Control Specialist Relationship Specialty Start Date End Date Carson Ibrahim MD [address] [address] PCP - General 11/20/23 Imer Sevilla MD 800 [facility] [address] [place] [address] Consulting Physician Radiation Oncology 02/27/24 Viky Menon MD 800 [facility] Liz Hester [facility] [address] [place] [address] Consulting Physician Medical Oncology 04/21/24 Amelia Freeman, RN Registered Nurse Hematology and Oncology 05/13/24 documented as of this encounter
--- OUTSIDE RECORDS SUMMARY | 2024-09-15 11:15 | XMS_ITS | Encounter Summary ---
Author Organization [facility] Address [address] [place] [address] Care Team Providers Care Flight Operation Coordinator Name Role Phone Carson Ibrahim MD Primary Care Provider + [phone] Imer Sevilla MD Unavailable Viky Menon MD Unavailable [phone] Amelia Freeman RN Unavailable Unavailable Encounter Details Date Type Department Care Team (Latest Contact Info) Description 07/22/2024 Travel Social History Tobacco Use Types Packs/Day Years [...] place to sleep or slept in a prison (including now)? No 01/08/2024 CAGE ASSESSMENT Answer [...] drink first t idalia in the morning (EYE-PICCOLO MECHANIC) to steady your nerves or to get [...] of Assessment Author No Risk Indicated 07/22/2024 8:00 PM EDT Rashad Palacio, DANIEL * Question Answer Date of Assessment Author 1. Wish to be (Past 1 Month) No 025 8:00 PM EDT Rashad Palacio, DANIEL 2. Non-Specific Active Suici luis m Thoughts (Past 1 Month) No 07/22/2024 8:00 PM EDT Santana Palacio RN 6. Suicidal Behavior (Lifetime) No 8:00 PM EDT Rashad Palacio, DANIEL documented as of this encounter Plan of Treatment Upcoming Encounters Date Type Department Care Team (Late st Contact Info) Description 09/23/2024 1:45 PM EDT Evaluation [facility] offset printer [facility] 800 [facility] [address] [place] [address] Kelsey Cerda, DMD [address] [facility] [address] [place] [address] 10/06/2024 11:45 AM EDT Office Visit Pav CC Head, Neck & Respiratory 800 [facility], 2nd [place] [address] Matias Eldridge MD 800 [facility] [address] [place] [address] 12/13/2024 10:00 AM EDT Office Visit Pav CC Head, Neck & Respiratory 800 [facility], [address]nd [place] [address] Viky Menon MD 800 [facility] [address] [place] [address] 12/13/2024 1:00 PM EDT Appointment PAV CC Radiation [address] [facility]. [id number] [place] [address] Imer Sevilla MD 800 [facility] [address] [place] [address] Scheduled Procedures Name Priority Associated Diagnoses Date/Ti me APPLICATION, GRAFT, SKIN, SPLIT-THICKNESS Wound of right lower extremity PREPARATION, WOUND, PRIOR TO SKIN GRAFT APPLICATION Wound of right lower extremity documented as of this encounter Visit Diagnoses Not on filedocumented [...] documented as of this encounter Care Teams Flight Operation Coordinator Relationship Specialty Start Date End Date Carson Ibrahim MD [facility] [place] [address] PCP - General 11/20/23 Imer Sevilla MD 800 [facility] [address] [place] [address] Consulting Physician Radiation Oncology 02/27/24 Viky Menon MD 800 [facility] [address] [place] [address] Consulting Physician Medical Oncology 04/21/24 Amelia Freeman, RN Registered Nurse Hematology and Oncology 05/13/24 documented as of this encounter
--- OUTSIDE RECORDS SUMMARY | 2024-09-15 11:15 | XMS_ITS | Encounter Summary ---
Author Organization [facility] Address [address] [place] [address] Care Team Providers Care Airplane Pilot Chief Name Role Phone Carson Ibrahim MD Primary Care Provider + [phone] Imer Sevilla MD Unavailable Viky Menon MD Unavailable [phone] Amelia Freeman RN Unavailable Unavailable Encounter Details Date Type Department Care Team (Latest Contact Info) Description 07/26/2024 Travel Social History Tobacco Use Types Packs/Day [...] place to sleep or slept in a fpc (including now)? No 01/08/2024 CAGE ASSESSMENT Answer [...] drink first t idalia in the morning (EYE-INSPECTION MANAGER) to steady your nerves or to [...] Date of Assessment Author No Risk Indicated 07/26/2024 8:00 PM EDT Corie Andersen RN * Question Answer Date of Assessment Author 1. Wish to be (Past 1 Month) No 025 8:00 PM EDT Corie Andersen, DANIEL 2. Non-Specific Active Suici luis m Thoughts (Past 1 Month) No 07/26/2024 8:00 PM EDT Arielle Andersen RN 6. Suicidal Behavior (Lifetime) No 8:00 PM EDT Corie Andersen RN documented as of this encounter Plan of Treatment Upcoming Encounters Date Type Department Care Team (Late st Contact Info) Description 09/23/2024 1:45 PM EDT Evaluation [facility] brim presser [facility] 800 [facility] [address] [place] [address] Kelsey Cerda, DMD [address] [place] [address] 10/06/2024 11:45 AM EDT Office Visit Pav CC Head, Neck & Respiratory 800 [facility], [address]nd [place] [address] Matias Eldridge MD 800 [facility] 2nd [place] [address] 12/13/2024 10:00 AM EDT Office Visit Pav CC Head, Neck & Respiratory 800 [facility], [address]nd [place] [address] Viky Menon MD 800 [facility] [address] [place] [address] 12/13/2024 1:00 PM EDT Appointment PAV CC Radiation 800 [facility]. [id number] [place] [address] Imer Sevilla MD 800 [facility] [address] [place] [address] Scheduled Procedures Name Priority Associated Diagnoses Date/Ti [...] documented as of this encounter Care Teams Airplane Pilot Chief Relationship Specialty Start Date End Date Carson Ibrahim MD [facility] [place] [address] PCP - General 11/20/23 Imer eSvilla MD 800 [facility] [address] [place] [address] Consulting Physician Radiation Oncology 02/27/24 Viky Menon MD 800 [facility] [address] [place] [address] Consulting Physician Medical Oncology 04/21/24 Amelia Freeman, RN Registered Nurse Hematology and Oncology 05/13/24 documented as of this encounter
--- OUTSIDE RECORDS SUMMARY | 2024-09-15 11:15 | XMS_ITS | Encounter Summary ---
Author Organization [facility] Address [address] [place] [address] Care Team Providers Care Farm Products Shipper Name Role Phone Carson Ibrahim MD Primary Care Provider + [phone] Imer Sevilla MD Unavailable Viky Menon MD Unavailable [phone] Amelia Freeman RN Unavailable Unavailable Encounter Details Date Type Department Care Team (Latest Contact Info) Description 08/12/2024 Travel Social History Tobacco Use Types Packs/Day [...] place to sleep or slept in a detention (including now)? No 01/08/2024 Housing Stability Vital Sign Answer Preet e Recorded In the last 12 months, was t here a time when you were not able to pay the mortgage or rent on time? No 07/28/2024 In the past 12 months, how m any times have you moved where you were living? 1 07/28/2024 At any time in the past 12 m [facility], were you homeless or living in a detention (including now)? No 07/28/2024 CAGE ASSESSMENT Answer [...] drink first t idalia in the morning (EYE-LAP MAKER) to steady your nerves or to get rid of a hangover? 0 07/22/2024 CAGE Questionnaire Score 0 025 Utilities Answer Date Recorded In the past 12 months has th e electric, gas, oil, or water [employer] threatened to shut off services in your home? No 07/28/2024 Sex and Gender Information Value Date Recorded Sex Assigned at Male 01/06/2024 6:14 AM EDT Legal Sex Male 7:47 PM EDT Gender Identity Male 01/06/2024 6:14 AM EDT Sexual Orientation Not on file documented as of this encounter Plan of Treatment Upcoming Encounters Date Type Department Care Team (Late st Contact Info) Description 09/23/2024 1:45 PM EDT Evaluation [facility] clinical support associate Clinic [address] [facility] [address] [place] [address] Kelsey Cerda, DMD [address] [place] [facility] [address] [place] [address] 10/06/2024 11:45 AM EDT Office Visit Pav CC Head, Neck & Respiratory [address] [facility], 2nd [place] [address] Matias Eldridge MD 800 [facility] [address] [place] [address] 12/13/2024 10:00 AM EDT Office Visit Pav CC Head, Neck & Respiratory [address] [facility], 2nd [place] [address] Viky Menon MD [address] [facility] Liz Hester [facility] [address] [place] [address] 12/13/2024 1:00 PM EDT Appointment PAV CC Radiation [address] [facility]. [id number] [place] [address] Imer Sevilla MD 800 [facility] [address] [place] [address] Scheduled Procedures Name Priority Associated Diagnoses Date/Ti [...] documented as of this encounter Care Teams Farm Products Shipper Relationship Specialty Start Date End Date Carson Ibrahim MD [address] [id number] PCP - General 11/20/23 Imer Sevilla MD 800 [facility] [address] [place] [address] Consulting Physician Radiation Oncology 02/27/24 Viky Menon MD [address] [facility] [address]ester [facility] [address] [place] [address] Consulting Physician Medical Oncology 04/21/24 Amelia Freeman, RN Registered Nurse Hematology and Oncology 05/13/24 documented as of this encounter
--- OUTSIDE RECORDS SUMMARY | 2024-09-15 11:15 | XMS_ITS | Encounter Summary ---
Author Organization [facility] Address [address] [place] [address] Care Team Providers Care Junior Electrical Engineer Name Role Phone Carson Ibrahim MD Primary Care Provider + [phone] Imer Sevilla MD Unavailable Viky Menon MD Unavailable [phone] Amelia Freeman RN Unavailable Unavailable Encounter Details Date Type Department Care Team (Late st Contact Info) Description 07/30/2024 External Documentati on Encounter [facility] [address] [place] [address] Tanya Hamilton, RN [facility] Social History Tobacco Use Types Packs/Day Years [...] any time in the past 12 m [facility], were you homeless or living [...] drink first t idalia in the morning (EYE-QUALITY LEAD) to steady your nerves or to get [...] Description 09/23/2024 1:45 PM EDT Evaluation [facility] commissioned defence force officer Clinic 800 [facility] [address] [place] [address] Kelsey Cerda, DMD [address] [facility] [address] [place] [address] 10/06/2024 11:45 AM EDT Office Visit Pav CC Head, Neck & Respiratory 800 [facility], [address]nd [place] [address] Matias Eldridge MD 800 [facility] [address] [place] [address] 12/13/2024 10:00 AM EDT Office Visit Pav CC Head, Neck & Respiratory 800 [facility], [address]nd [place] [address] Viky Menon MD 800 [facility] [address] [place] [address] 12/13/2024 1:00 PM EDT Appointment PAV CC Radiation [address] [facility]. [id number] [place] [address] Imer Sevilla MD 800 [facility] [address] [place] [address] Scheduled Procedures Name Priority Associated Diagnoses Date/Ti [...] documented as of this encounter Care Teams Junior Electrical Engineer Relationship Specialty Start Date End Date Carson Ibrahim MD [facility] [place] [address] PCP - General 11/20/23 Imer Sevilla MD 800 [facility] [address] [place] [address] Consulting Physician Radiation Oncology 02/27/24 Viky Menon MD 800 [facility] [address] [place] [address] Consulting Physician Medical Oncology 04/21/24 Amelia Freeman, RN Registered Nurse Hematology and Oncology 05/13/24 documented as of this encounter
--- OUTSIDE RECORDS SUMMARY | 2024-09-15 11:15 | XMS_ITS | Encounter Summary ---
Author Organization [facility] Address [address] [place] [address] Care Team Providers Care Refrigerating Oiler Name Role Phone Carson Ibrahim MD Primary Care Provider + [phone] Imer Sevilla MD Unavailable Viky Menon MD Unavailable [phone] Amelia Freeman RN Unavailable Unavailable Reason for Visit * Reason Comments Social Work/navigation Follow-up Encounter Details Date Type Department Care Team (Late st Contact Info) Description 07/22/2024 Social Work Psych Oncology [address] [place] [address] Tamar Cruz Social History Tobacco Use Types Packs/Day Years [...] drink first t idalia in the morning (EYE-HOTBED TRANSFER OPERATOR) to steady your nerves or to [...] encounter Miscellaneous Notes * Progress Notes - Tamar Cruz - 07/22/2024 3:03 PM EDT Encounter Type: Phone Call Disease Status: Established Patient Clinic Location: [facility] Disease Type: Head & Neck Services Provided: Psychosocial Monitoring Intervention Level: 2 Units (1 unit = 15 minutes): 1 Narrative: REPAIRER MAINTENANCE BUILDING received call from pt stating that he was currently in the ED for an infection in his shoulder.REPAIRER MAINTENANCE BUILDING empathized with pt and expressed well wishes. Pt stated he did not expect to be admitted today and did not bring anything with him and was worried about how long he would be in the hospital. REPAIRER MAINTENANCE BUILDING encouraged pt to inquire of typical length of stay for this type of infection and encouraged him to contact a family member to request they bring him some personal belongings. Pt was agreeable to thisplan and committed to contacting a family member. Pt stated that his surgery on 07/27 would be rescheduled. REPAIRER MAINTENANCE BUILDING expressed understanding and encouraged pt to follow up once new date was received if transportation assistance was needed. Pt was appreciative for the support and stated that he was going into triage at this time. REPAIRER MAINTENANCE BUILDING encouraged pt to follow up should he need anything. REPAIRER MAINTENANCE BUILDING remains available ongoing prn. Tamar Cruz MSW, REPAIRER MAINTENANCE BUILDING [phone] documented in this encounter Plan of Treatment Upcoming Encounters Date Type Department Care Team (Late st Contact Info) Description 09/23/2024 1:45 PM EDT Evaluation [facility] supervising architect Clinic 800 [facility] [address] [place] [address] Kelsey Cerda, DMD [address] [place] [address] 10/06/2024 11:45 AM EDT Office Visit Pav CC Head, Neck & Respiratory 800 [facility], 2nd [place] [address] Matias Eldridge MD 800 [facility] [address] [place] [address] 12/13/2024 10:00 AM EDT Office Visit Pav CC Head, Neck & Respiratory 800 [facility], 2nd [place] [address] Viky Menon MD 800 [facility] [address] [place] [address] 12/13/2024 1:00 PM EDT Appointment PAV CC Radiation 800 [facility]. [id number] [place] [address] Imer Sevilla MD 800 [facility] [address] [place] [address] Scheduled Procedures Name Priority Associated [...] documented as of this encounter Care Teams Refrigerating Oiler Relationship Specialty Start Date End Date Carson Ibrahim MD [address] [facility] [address] [place] [address] PCP - General 11/20/23 Imer Sevilla MD 800 [facility] [address] [place] [address] Consulting Physician Radiation Oncology 02/27/24 Viky Meonn MD 800 [facility] Liz Hester [facility] [address] [place] [address] Consulting Physician Medical Oncology 04/21/24 Amelia Freeman, RN Registered Nurse Hematology and Oncology 05/13/24 documented as of this encounter
--- OUTSIDE RECORDS SUMMARY | 2024-09-15 11:15 | XMS_ITS | Encounter Summary ---
Author Organization Healthcare Address [address] [id number] Care Team Providers Care Principal Technical Writer Name Role Phone Carson Ibrahim MD Primary Care Provider + [phone] Imer Sevilla MD Unavailable Viky Menon MD Unavailable [phone] Amelia Freeman RN Unavailable Unavailable Encounter Details Date Type Department Care Team (Late st Contact Info) Description 08/04/2024 Refill Pav CC Head, Neck & Respiratory 800 [facility], [address]nd [place] [id number] Viky Menon MD 800 [facility] [address] [place] [address] Social History Tobacco Use Types Packs/Day Years [...] drink first t idalia in the morning (EYE-GRIZZLY WORKER) to steady your nerves or to get rid of a hangover? 0 07/22/2024 CAGE Questionnaire Score 0 025 Utilities Answer Date Recorded In the past 12 months has th e [employer], gas, oil, or water company threatened to shut off services in your home? No 07/28/2024 Sex and Gender Information Value Date Recorded Sex Assigned at Male 01/06/2024 6:14 AM EDT Legal Sex Male 7:47 PM EDT Gender Identity Male 01/06/2024 6:14 AM EDT Sexual Orientation Not on file documented as of this encounter Miscellaneous Notes * Telephone Encounter - Fidelia Alexander - 08/04/2024 1:23 PM EDT Patient Phone Message Reason for Call:Patient called to talk to the nurse Best contact number and optimal time of day to reach caller:[phone] Note: Please do not reply to this message. Follow-up communication and further actions as a result of this message need to be communicated with the patient directly, if the patient is not active onMyChart. If the patient is active on MyChart, they will receive notification of the communication/outcome via MyChart. * Telephone Encounter - Altagracia Hogan - 08/04/2024 1:07 PM EDT Patient Phone Message Reason for Call: Per pt call to [facility], pt needs a refill of prescriptions. Preferred pharmacy is [facility]. Best contact number and optimal time of day to reach caller: [phone] Note: Please do not reply to this message. Follow-up communication and further actions as a result of this message need to be communicated with the patient directly, if the patient is not active onMyChart. If the patient is active on MyChart, they will receive notification of the communication/outcome via MyChart. documented in this encounter Plan of Treatment Upcoming Encounters Date Type Department Care Team (Late st Contact Info) Description 09/23/2024 1:45 PM EDT Evaluation [facility] [address] [facility] [address] [place] [address] Kelsey Cerda, DMD [address] [facility] [address] [place] [address] 10/06/2024 11:45 AM EDT Office Visit Pav CC Head, Neck & Respiratory [address] [facility], 2nd [place] [address] Matias Eldridge MD 800 [facility] [address] [place] [address] 12/13/2024 10:00 AM EDT Office Visit Pav CC Head, Neck & Respiratory [address] [facility], 2nd [place] [address] Viky Menon MD 800 [facility] [address] [place] [address] 12/13/2024 1:00 PM EDT Appointment PAV CC Radiation [address] [facility]. [id number] [place] [address] Imer Sevilla MD 800 [facility] [address] [place] [address] Scheduled Procedures Name Priority Associated [...] documented as of this encounter Care Teams Principal Technical Writer Relationship Specialty Start Date End Date Carson Ibrahim MD [address] [facility] [address] [place] [address] PCP - General 11/20/23 Imer Sevilla MD 800 [facility] [address] [place] [address] Consulting Physician Radiation Oncology 02/27/24 Viky Menon MD 800 [facility] [address] [place] [address] Consulting Physician Medical Oncology 04/21/24 Amelia Freeman, RN Registered Nurse Hematology and Oncology 05/13/24 documented as of this encounter
--- OUTSIDE RECORDS SUMMARY | 2024-09-15 11:15 | XMS_ITS | Encounter Summary ---
Author Organization Healthcare Address [address] [place] [address] Care Team Providers Care Character Actress Name Role Phone Carson Ibrahim MD Primary Care Provider + [phone] Imer Sevilla MD Unavailable Viky Menon MD Unavailable [phone] Amelia Freeman RN Unavailable Unavailable Reason for Visit * Reason Comments Resource Navigation Encounter Details Date Type Department Care Team (Late st Contact Info) Description 07/29/2024 Social Work Psych Oncology [address] [place] [address] Tamar Cruz Social History Tobacco Use Types [...] a long term (including now)? No 01/08/2024 Housing Stability Vital Sign Answer Preet e Recorded In the last 12 months, was t here a time when you were not able to pay the mortgage or rent on time? No 07/28/2024 In the past 12 months, how m any times have you moved where you were living? 1 07/28/2024 At any time in the past 12 m [facility], were you homeless or living [...] drink first t idalia in the morning (EYE-SITE RELIABILITY ENGINEER) to steady your nerves or to get [...] Notes * Progress Notes - Tamar Cruz Nik - 07/29/2024 10:23 AM EDT Encounter Type: Phone Call Disease Status: Established Patient Clinic Location: [facility] Disease Type: Head & Neck Services Provided: Transportation Assistance Education Provided: Transportation Community Referrals: Medicaid Travel Reimbursement Intervention Level: 3 Units (1 unit = 15 minutes): 2 Narrative: TRANSMISSION LINE ENGINEER received call from pt stating that he was now discharged from the hospital and home. Pt stated that he will be doing IV antibiotics over the next few weeks. Pt additionally stated that he was found to have concerns with his heart and will need to follow up with his PCP and cardiology over the next couple of weeks and would need assistance with scheduling medicaid transportation. TRANSMISSION LINE ENGINEER expressedunderstanding and was able to scheduled pt transportation for upcoming appts on 08/04 with PCP (pickup at 915AM/confirmation [id number]), 08/10 (lease picker 11AM/ confirmation [id number]), and 08/12 (lease picker 6AM/confirmation [id number]). TRANSMISSION LINE ENGINEER provided pt with confirmations and lease picker times. Pt was appreciative for the assistance. Pt disclosed that he most likely would not be moving forward with surgery on his leg as his provider was pleased with its healing. TRANSMISSION LINE ENGINEER expressed gladness in this and discussed with pt the positive aspect of not having to have a surgery. Pt was agreeable to this and glad. Pt expressed that he was anxious regarding his current heart complications and was unsure what was going on or what will happen. TRANSMISSION LINE ENGINEER validated pts feelings and discussed with pt the positive aspect that his providers are aware of what is going on and that he is taking steps to get it taken care of. Pt was understanding and agreeable of this. TRANSMISSION LINE ENGINEER offered ongoing support to pt and encouraged him to follow up should additional needs arise. TRANSMISSION LINE ENGINEER encouraged pt to be mindful of how he was feeling and to follow up with his providers as needed. Pt was appreciative for the support and denied additional questions or needs at this time and was agreeable to following up as needed. TRANSMISSION LINE ENGINEER remains available ongoing prn. Tamar Cruz VACUUM PLASTIC FORMING MACHINE OPERATOR, TRANSMISSION LINE ENGINEER [phone] documented in this encounter Plan of Treatment Upcoming Encounters Date Type Department Care Team (Late st Contact Info) Description 09/23/2024 1:45 PM EDT Evaluation [facility] compacting machine operator/tender Clinic 800 [facility] [address] [place] [address] Kelsey Cerda, DMD [address] [facility] [address] [place] [address] 10/06/2024 11:45 AM EDT Office Visit Pav CC Head, Neck & Respiratory 800 [facility], [address]nd [place] [phone] Matias Eldridge MD 800 [facility] Cancer [facility] 2nd [place] [address] 12/13/2024 10:00 AM EDT Office Visit Pav CC Head, Neck & Respiratory 800 [facility], [address]nd [place] [address] Viky Menon MD 800 [facility] [address] [place] [address] 12/13/2024 1:00 PM EDT Appointment PAV CC Radiation 800 [facility]. [id number] [place] [address] Imer Sevilla MD 800 [facility] [address] [place] [address] Scheduled Procedures Name Priority Associated Diagnoses Date/Ti [...] documented as of this encounter Care Teams Character Actress Relationship Specialty Start Date End Date Carson Ibrahim MD [address] [id number] PCP - General 11/20/23 Imer Sevilla MD 800 [facility] [address] [place] [phone] Consulting Physician Radiation Oncology 02/27/24 Viky Menon MD [address] [facility] [address] [place] [address] Consulting Physician Medical Oncology 04/21/24 Amelia Freeman, RN Registered Nurse Hematology and Oncology 05/13/24 documented as of this encounter
--- OUTSIDE RECORDS SUMMARY | 2024-09-15 11:15 | XMS_ITS | Encounter Summary ---
Author Organization Healthcare Address [address] [place] [address] Care Team Providers Care Lemon Picker Name Role Phone Carson Ibrahim MD Primary Care Provider + [phone] Imer Sevilla MD Unavailable Viky Menon MD Unavailable [phone] Amelia Freeman RN Unavailable Unavailable Encounter Details Date Type Department Care Team (Late st Contact Info) Description 07/29/2024 Clinical Support [facility] [address] [place] [address] Joe Sepulveda, PharmD [address] [facility] [address] [place] [address] Social History Tobacco Use Types Packs/Day Years [...] drink first t idalia in the morning (EYE-COMPLIANCE ENGINEER PRODUCTS) to steady your nerves or to get rid of a hangover? 0 07/22/2024 CAGE Questionnaire Score 0 025 Utilities Answer Date Recorded In the past 12 months has e electric, gas, oil, or water company [...] Description 09/23/2024 1:45 PM EDT Evaluation [facility] 800 [facility] [address] [place] [address] Kelsey Cerda, DMD [address] [place] [address] 10/06/2024 11:45 AM EDT Office Visit Pav CC Head, Neck & Respiratory 800 [facility], [address]nd [place] [address] Matias Eldridge MD 800 [facility] Cancer [address] [address] 12/13/2024 10:00 AM EDT Office Visit Pav CC Head, Neck & Respiratory 800 [facility], [address]nd [place] [address] Viky Menon MD 800 [facility] [address] [facility] [address] [place] [address] 12/13/2024 1:00 PM EDT Appointment PAV CC Radiation 800 [facility]. [id number] [place] [address] Imer Sevilla MD [id number] [place] [address] Scheduled Procedures Name Priority Associated Diagnoses Date/Ti [...] documented as of this encounter Care Teams Lemon Picker Relationship Specialty Start Date End Date Carson Ibrahim MD [address] [place] [address] PCP - General 11/20/23 Imer Sevilla MD [address] [phone] Consulting Physician Radiation Oncology 02/27/24 Viky Menon MD [address] [address] Consulting Physician Medical Oncology 04/21/24 Amelia Freeman, RN Registered Nurse Hematology and Oncology 05/13/24 documented as of this encounter
--- OUTSIDE RECORDS SUMMARY | 2024-09-15 11:16 | XMS_ITS | Encounter Summary ---
Author Organization [facility] Address [address] [place] [address] Care Team Providers Care Lean Six Sigma Senior Specialist Name Role Phone Carson Ibrahim MD Primary Care Provider + [phone] mIer Sevilla MD Unavailable Viky Menon MD Unavailable [phone] Amelia Freeman RN Unavailable Unavailable Encounter Details Date Type Department Care Team (Latest Contact Info) Description 07/21/2024 Travel Social History Tobacco Use Types Packs/Day [...] in a fci (including now)? No 01/08/2024 CAGE ASSESSMENT Answer [...] drink first t idalia in the morning (EYE-ACTING INSTRUCTOR) to steady your nerves or to [...] Upcoming Encounters Date Type Department Care Team (Sharri mittal Contact Info) Description 09/23/2024 1:45 PM EDT Evaluation [facility] donor relations officer Clinic 800 [facility] [address] [place] [address] Kelsey Cerda, DMD [address] [facility] [address] [place] [address] 10/06/2024 11:45 AM EDT Office Visit Pav CC Head, Neck & Respiratory 800 [facility], [address]nd [place] [address] Matias Eldridge MD 800 [facility] [address] [place] [address] 12/13/2024 10:00 AM EDT Office Visit Pav CC Head, Neck & Respiratory [address] [facility], [address]nd [place] [address] Viky Menon MD 800 [facility] [address] [place] [address] 12/13/2024 1:00 PM EDT Appointment PAV CC Radiation [address] [facility]. [id number] [place] [address] Imer Sevilla MD 800 [facility] [address] [place] [address] Scheduled Procedures Name Priority Associated [...] documented as of this encounter Care Teams Lean Six Sigma Senior Specialist Relationship Specialty Start Date End Date Carson Ibrahim MD [address] [facility] [address] [place] [address] PCP - General 11/20/23 Imer Sevilla MD 800 [facility] [address] [place] [address] Consulting Physician Radiation Oncology 02/27/24 Viky Menon MD [address] [facility] [address] [place] [address] Consulting Physician Medical Oncology 04/21/24 Amelia Freeman, RN Registered Nurse Hematology and Oncology 05/13/24 documented as of this encounter
--- OUTSIDE RECORDS SUMMARY | 2024-09-15 11:16 | XMS_ITS | Patient Health Record ---
Author Organization [facility] Address [address] [facility] [address] [facility] [address] [place] [phone] Care Team Providers Care Health Care Assistant Name Role Phone Mine Ibrahimian Primary Care Provider Allergies Allergen (clinical drug ingredient) Drug/Non Drug Allergy documented on EMR Reaction Allergy Type Onset Date Status Penicillin Rash Drug Allergy Active Results Component Value Reference Range Notes P-TSH reflex to FT4 Reviewed date:07/22/2024 11:07:25 AM Interpretation:Normal Performing Lab: Notes/Report: Test performed by [facility] [address] [place] [address] , [address], [place] [address] Calos Chacon MD, Ferris Wheel Operator CLIA: [id number] TSH reflex to FT4 1.59 0.43-5.25 mU/L P-Culture, Blood Reviewed date:07/26/2024 05:35:40 PM Interpretation:No Growth Performing Lab: Notes/Report: Test performed by [facility] [address] [place] [address] , [address], [place] [address] Calos Chacon MD, Ferris Wheel Operator CLIA: [id number] Specimen Source Blood Culture, Blood See Below No Growth at 24 hours No Growth at 5 Days P-Comprehensive Metabolic Pa emani (CMP) Reviewed date:07/22/2024 11:07:25 AM Interpretation:glu 143, leslee 8.2, a/g 0.9 Performing Lab: Notes/Report: Test performed by [facility] [address] [place] [address] , [address], [place] [address] Calos Chacon MD, Ferris Wheel Operator CLIA: [id number] Sodium 139 135-145 mmol/L Potassium 4.5 3.5-5.3 [...] 0.5 <0.2-1.2 mg/dL A/G Ratio 0.9 1.1-2.5 CBC Venipuncture (in house) Reviewed date:07/20/2024 09:38:09 [...] - 38 platlet 446 100 - 400 H-BMP Reviewed date:07/05/2024 03:03:52 PM Interpretation: Performing Lab: Notes/Report: NA 136 136-145 mmol/L K 3.7 3.5-5.1 mmoL/L CL 101 98-107 mmol/L CO2 28 22.0-30.0 mmol/L GAP 10.7 5-15 mEq/L BUN 6 9-20 mg/dl CREATT 0.60 0.66-1.25 mg/dl CRCLE 198 50-200 mL/min GFRAA 173 >60 ML/MIN EGFR 143 >60 ml/min GLU 158 74-100 mg/dl CA 8.5 8.4-10.2 mg/dl H-CBC Reviewed date:07/05/2024 03:03:52 PM Interpretation: Performing Lab: Notes/Report: WBC 5.9 4.8-10.8 K/mm3 Delta: 8.1 on 07/02/24 RBC 3.84 4.60-6.20 M/mm3 HGB 10.8 14.1-18.0 g/dL HCT 33.2 42.0-52.0 % MCV 86.5 80-94 fl MCH 28.1 27.0-31.2 pg MCHC 32.5 31.8-35.4 g/dL RDW-SD 58.4 RDW 18.4 11.5-17.5 % PLT 458 142-424 K/mm3 Delta: 352 on 07/02/24 MPV 9.4 7.4-10.4 fl NE% 80.2 37.0-80.0 % LY% 9.4 10-50 % MO% 6.8 1.7-9.3 % EO% 2.2 0.1-12.0 % BA% 0.7 0.1-2.0 % NRBC% 0 NE# 4.7 1.8-7.8 K/mm3 LY# 0.6 0.7-4.5 K/mm3 MO# 0.4 0.1-1.0 K/mm3 EO# 0.1 0.0-0.4 K/mm3 BA# 0.0 0-0.2 K/mm3 NRBC# 0 H-Vancomycin, Peak Reviewed date:07/05/2024 03:03:52 PM Interpretation: Performing Lab: Notes/Report: VANCP 32.1 11-39 ug/ml H-Vancomycin, Trough Reviewed date:07/05/2024 03:03:52 PM Interpretation: Performing Lab: Notes/Report: VANCT 15.5 5.0-10.0 ug/mL H-CMP Reviewed date:07/05/2024 03:03:52 PM Interpretation: Performing Lab: Notes/Report: NA 135 136-145 mmol/L K 3.4 3.5-5.1 mmoL/L CL 99 98-107 mmol/L CO2 30 22.0-30.0 mmol/L GAP 9.4 5-15 mEq/L BUN 5 9-20 mg/dl Delta: 12 on 07/02/24 CREATT 0.50 0.66-1.25 mg/dl Delta: 0.70 on 07/02/24 CRCLE 239 50-200 mL/min GFRAA 213 >60 ML/MIN Delta: 144 on 07/02/24 EGFR 176 >60 ml/min GLU 104 74-100 mg/dl CA 8.4 8.4-10.2 mg/dl BILIT 0.9 0.2-1.3 mg/dl AST 24 17-59 U/L ALT 12 12-78 U/L Delta: 17 on 07/02/24 TP 6.5 6.3-8.2 g/dl ALB 2.6 3.5-5.0 g/dl Delta: 3.0 on 07/02/24 GLOB 3.9 1.3-3.2 g/dL AGRATIO 0.7 1.1-1.8 ALP 64 38-126 U/L HCVAB Reviewed date:07/02/2024 02:34:15 PM Interpretation: Performing Lab: Notes/Report: HCVAB NEGATIVE Negative All initial positives will be confirmed by 2 retests, if still positive they will be confirmed by [facility] Sendout. H-DIARRHEA PANEL Reviewed date:07/05/2024 03:03:52 PM Interpretation: Performing Lab: Notes/Report: AEROMONAS Not Detected NotDetected CAMPYLOBACTER Not Detected NotDetected CLOSTR DIFFICIL Detected NotDetected NOTIFICATION RESULT Results called to: DAYNE on 07/03/24 at 1151 By MIREYA KaurT PLESIOMONAS Not Detected NotDetected SALMONELLA, PCR Not Detected NotDetected YERSINIA Not Detected NotDetected VIBRIO, PCR Not Detected NotDetected VIBRIO CHOLERAE Not Detected NotDetected ECOLI (EAEC) Not Detected NotDetected ECOLI (EPEC) Not Detected NotDetected ECOLI (ETEC) Not Detected NotDetected SHIGATOXIN Not Detected NotDetected ECOLI O157 Not Detected NotDetected SHIG-INVAS ECOL Not Detected NotDetected CRYPTO Not Detected NotDetected CYCLOSPORA Not Detected NotDetected EHISTOLYTICA Not Detected NotDetected GIARDIA Not Detected NotDetected ADENO STOOL Not Detected NotDetected ASTROVIRUS Not Detected NotDetected NOROVIRUS Not Detected NotDetected ROTOVIRUS A Not Detected NotDetected SAPOVIRUS Not Detected NotDetected Urinalysis - Inhouse Reviewed date:05/25/2024 02:35:18 PM Interpretation: Performing Lab: Notes/Report: Color/Clarity dark yellow/clear Leuk 2+ Nitrite Neg Urobili 3.2 Protein 2+ pH 6.0 Blood 1+ Sp. Gr. 1.015 Ketone Neg Bili Neg Gluc Neg Glucose (In-House) Reviewed date:05/25/2024 11:47:12 AM Interpretation: Performing Lab: Notes/Report: blood glucose 120 74 - 106 mg/dL Glycohemoglobin A1c (in hous e) Reviewed date:05/25/2024 11:47:41 AM Interpretation: Performing Lab: Notes/Report: glycohemoglobin 5.8% 5 - 6.5 % TEN-UTI panel Reviewed date:05/28/2024 11:11:02 AM Interpretation:Negative Performing Lab: Notes/Report: Negative Reason For Referral Reason Echo done at Diagnosis 1 HFrEF (heart failure with reduced ejection fraction) (I50.20) [facility] Referring Provider First Name Carson Referring Provider Last Name Patrice Referring Provider [facility] Referred Provider Mildred Martin Referred Provider Specialty Cardiovascul ar Disease General Notes Eliana Najera 2024 01:16:57 PM > faxed to [facility] Scheduling, Eliana Najera 08/06/2024 03:35:45 PM > 08/17/2024 at 02:15pm Referral Priority Routine Diagnosis 1 Foraminal stenosis o f lumbar [...] Referring Provider Last Name Patrice Referring Provider [facility] Referred Provider Jarvis Dasilva Referred Provider Specialty Pain Managem ent General Notes Eliana Najera 2024 11:09:01 AM > faxed to [facility] Pain Management Referral Priority Routine Medications Medication SIG (Take, Route, Fr equency, Duration) Notes Start Date End Date Status oxyCODONE HCl 15 MG 1 tablet Orally every 4 hrs Active Wheelchair - as directed 01/28/2024 Acti ve Famotidine 20 MG 1 tablet at bedtime as needed Orally Twice a day for 30 day(s) Active Immunizations Vaccine Route Administration Date Status Comme nts Fluzone Quad (6months&older) IM Intramuscular 01/11/2020 Administered COVID 19 Gurpreet Unknown 06/27/2020 Administered Problems Problem Type SNOMED Code ICD Code Onset Dates Problem Status W/U Status Risk Notes Problem 10970540 Essential hypertension (I10) Active confirmed Problem 155704523 Morbid obesity (E66.01) Active confirmed Problem 886409433 Lumbar facet arthropathy (M47.816) Active confirmed Problem 642519521 Other obesity du e to excess calories (E66.09) Active confirmed Problem 322091727 Mixed hyperlipidemia (E78.2) Active confirmed Problem 11727239 Other chronic pa in (G89.29) Active confirmed Problem 871785083 Anemia, unspecif ied type (D64.9) Active confirmed Problem 182600890 Type 2 diabetes mellitus without complication, without long-term current use of insulin (E11.9) Active confirmed Problem 06306871 Spinal stenosis of lumbar region without neurogenic claudication (M48.061) Active confirmed Problem 511086735 Lumbar foraminal stenosis (M48.061) Active confirmed Problem 399908209 Foraminal stenos is of lumbar region (M48.061) Active confirmed Problem 606872476 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) Active confirmed Problem 007769477 HFrEF (heart failure with reduced ejection fraction) (I50.20) Active confirmed Vital Signs Heart Rate 64 /min 09/01/2024 Blood pressure diastolic 80 mm Hg 09/01/2024 Height 69.5 in 09/01/2024 Blood pressure systolic 130 mm Hg 09/01/2024 Weight 197 lbs 09/01/2024 BMI 28.67 kg/m2 09/01/2024 Encounters Encounter Location Date Provider Diagnosis [facility] [address] [place] [id number] 01/23/2024 [place] 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 C79.89 [facility] [address] [place] [id number] 05/25/2024 Carson [place] Dysuria R30.0 ; Pyur ia R82.81 ; Heartburn R12 and Type 2 diabetes mellitus without complication, without long-term current use of insulin E11.9 [facility] [address] [place], [place] [id number] 06/23/2024 Carson [place] Acute bilateral low back pain without sciatica M54.50 and Muscle spasm of back M62.830 [facility] [address] [place], [place] [id number] 07/19/2024 Carson [place] Bacteremia R78.81 ; Methicillin resistant Staphylococcus aureus infection as the cause of diseases classified elsewhere B95.62 ; Acute UTI N39.0 ; C. difficile colitis A04.72 ; Generalized weakness R53.1 ; Anemia, unspecified type D64.9 and Right-sided low back pain without sciatica, unspecified chronicity M54.50 [facility] [address] [place], [place] [id number] 08/04/2024 Carson [place] Infection of clavicl e M86.9 ; HFrEF (heart failure with reduced ejection fraction) I50.20 and BMI 29.0-29.9,adult Z68.29 [facility] [address] [place] [id number] 09/01/2024 Carson [place] HFrEF (heart failure with reduced ejection fraction) I50.20 ; Other chronic pain G89.29 ; Low back pain, unspecified M54.50 ; 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 ; Lumbar foraminal stenosis M48.061 ; Spinal stenosis of lumbar region without neurogenic claudication M48.061 ; Bulging lumbar disc M51.369 and BMI 28.0-28.9,adult Z68.28 [facility] [address] [place], [place] [id number] 10/22/2023 Carson [place] [facility] [address] [place], [place] [id number] 01/19/2024 Carson [place] [facility] [address] [place], [place] [id number] 01/20/2024 Carson [place] [facility] [address] [place], [place] [id number] 01/28/2024 Carson [place] [facility] [address] [place], [place] [id number] 02/05/2024 Carson [place] [facility] [address] [place], [place] [id number] 03/04/2024 Carson [place] [facility] [address] [place], [place] [id number] 06/29/2024 Acrson [place] [facility] [address] [place], [place] [id number] 07/22/2024 Carson [place] [facility] [address] [place], [place] [id number] 09/09/2024 Carson [place] Assessments Encounter Date Diagnosis (ICD Code) Assessment Notes Treatment Notes Treatment Clinical Notes Section Notes 01/23/2024 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 (ICD-10 - C79.89) Need discharge summary from , keep follow up appt. next week at 05/25/2024 Dysuria (ICD-10 - R30.0) 05/25/2024 Pyuria (ICD-10 - R82.81) 06/23/2024 Muscle spasm of back (ICD-10 - M62.830) 06/23/2024 Acute bilateral low back pain without sciatica (ICD-10 - M54.50) Home exercise program provided to patient 07/19/2024 Methicillin resistant Staphylococcus aureus infection as the cause of diseases classified elsewhere (ICD-10 - B95.62) 07/19/2024 Bacteremia (ICD-10 - R78.81) Patient has completed his IV antibiotics 08/04/2024 HFrEF (heart failure with reduced ejection fraction) (ICD-10 - I50.20) 08/04/2024 Infection of clavicle (ICD-10 - M86.9) Continue IV Daptomycin, keep f/u appt. with ID at [facility] 09/01/2024 Other chronic pain (ICD-10 - G89.29) 09/01/2024 HFrEF (heart failure with reduced ejection fraction) (ICD-10 - I50.20) Recent Echo from and stress test from [facility] reviewed with patient in office today. Patient is asymptomatic at this point. He stopped metoprolol due to bradycardia. He with keep follow up with cardiology in a few weeks 07/19/2024 Acute UTI (ICD-10 - N39.0) 08/04/2024 BMI 29.0-29.9,adult (ICD-10 - Z68.29) 05/25/2024 Heartburn (ICD-10 - R12) 09/01/2024 Low back pain, unspecified (ICD-10 - M54.50) 09/01/2024 Degeneration of intervertebral disc of lumbar region with discogenic back pain (ICD-10 - M51.360) 05/25/2024 Type 2 diabetes mellitus without complication, without long-term current use of insulin (ICD-10 - E11.9) 07/19/2024 C. difficile colitis (ICD-10 - A04.72) 07/19/2024 Generalized weakness (ICD-10 - R53.1) 09/01/2024 Lumbar foraminal stenosis (ICD-10 - M48.061) 09/01/2024 Spinal stenosis of lumbar region without neurogenic claudication (ICD-10 - M48.061) 07/19/2024 Anemia, unspecified type (ICD-10 - D64.9) 07/19/2024 Right-sided low back pain without sciatica, unspecified chronicity (ICD-10 - M54.50) 09/01/2024 Bulging lumbar disc (ICD-10 - M51.369) 09/01/2024 BMI 28.0-28.9,adult (ICD-10 - Z68.28) Plan Of Treatment Next Appt Details Provider Name:Carson riley, 12/02/2024 09:30:00 AM, [address], [place], [id number], Insurance Providers Payer Name Payer Address Payer Phone Subscriber Number Group Number Insured Name Patient Relationship to Insured Coverage Start Date Coverage End Date [facility] [address] [place] [id number] [phone] [id number] PERRY DANIELS Self - patient is the insured Medical (General) History Medical History History ICD Code Hypertension, Dx: 2001 Type 2 Diabetes Hyperlipidemia Squamous cell carcinoma of l ower lip - 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 Cruz Kidney Stones Squamous cell carcinoma neck ,s/p oral cavity and bilateral neck dissection and tracheostomy - 2023 Congestive Heart Failure, Dx: 2024 Surgical History Surgery Date(Month/Year) Kidney stone removal umbilical hernia repair Kidney Stone Removal 03/12/2019 LT Lower Lip Squamous Cell Carcinoma Rem oval 10/2018 LT Salivary Gland Squamous Cell Carcinom a 10/14/2019 Hospitalization History Reason Date(Month/Year) [facility] - Neck Surgery 10/13- [facility] - UTI 11/08/2018 kidney stone surgery
--- OUTSIDE RECORDS SUMMARY | 2024-09-15 11:16 | XMS_ITS | Encounter Summary ---
Author Organization Healthcare Address [address] [place] [address] Care Team Providers Care Special Police Name Role Phone Carson Ibrahim MD Primary Care Provider + [phone] Imer Sevilla MD Unavailable Viky Menon MD Unavailable [phone] Amelia Freeman RN Unavailable Unavailable Reason for Visit * Reason Comments Social Work/navigation Follow-up Encounter Details Date Type Department Care Team (Late st Contact Info) Description 08/04/2024 Social Work Psych Oncology [address] [place] [address] Tamar Cruz Social History Tobacco Use Types [...] any time in the [facility], were you homeless or living [...] 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 Pt requested fax number for clinic. ANALYTICS DEVELOPER provided pt with fax number for [facility] and made provider RN aware of incoming paperwork. Pt was appreciative for the assistance. ANALYTICS DEVELOPER inquired further of pt wellbeing and additional needs. Pt stated he was doing well at this time and denied additional needs. ANALYTICS DEVELOPER encouraged pt to follow up should additional needs arise. ANALYTICS DEVELOPER remains available ongoing prn. Tamar Cruz CORN DETASSELER, ANALYTICS DEVELOPER [phone] documented in this encounter Plan of Treatment Upcoming Encounters Date Type Department Care Team ([facility] Contact Info) Description 09/23/2024 1:45 PM EDT Evaluation DSB service delivery analyst Clinic [address] [facility] [address] [place] [address] Kelsey Cerda, DMD [address] [place] [address] 10/06/2024 11:45 AM EDT Office Visit [facility] Head[facility] Neck [facility] Respiratory [address] [place] [address] Matias Eldridge MD [address] [facility] [address] [place] [address] 12/13/2024 10:00 AM EDT Office Visit [facility] Res[facility] [address] [facility], [address]nd [place] [address] Viky Menon MD [address] [facility] [address] [facility] [address] [place] [address] 12/13/2024 1:00 PM EDT Appointment [facility] Radiation [address] [facility]. [id number] [place] [address] Imer Sevilla MD [address] [facility] [address] [place] [address] Scheduled Procedures Name Priority Associated [...] documented as of this encounter Care Teams Special Police Relationship Specialty Start Date End Date Carson Ibrahim MD [facility] [address] [address] PCP - General 11/20/23 Imer Sevilla MD [address] [facility] [address] [place] [address] Consulting Physician Radiation Oncology 02/27/24 Viky Menon MD [address] [facility] Liz H[address] [address] Consulting Physician Medical Oncology 04/21/24 Amelia Freeman, RN Registered Nurse Hematology and Oncology 05/13/24 documented as of this encounter
--- OUTSIDE RECORDS SUMMARY | 2024-09-15 11:16 | XMS_ITS | Encounter Summary ---
Author Organization Healthcare Address [address] [place] [address] Care Team Providers Care Curing Supervisor Name Role Phone Carson Ibrahim MD Primary Care Provider + [phone] Imer Sevilla MD Unavailable Viky Menon MD Unavailable [phone] Amelia Freeman RN Unavailable Unavailable Encounter Details Date Type Department Care Team (Late st Contact Info) Description 06/30/2024 Orders Only External Location [address] [place] [address] Provider, External Social History Tobacco Use Types Packs/Day Years [...] in a mcc (including now)? No 01/08/2024 CAGE ASSESSMENT Answer Date Recorded Cage unable to access Not on file 02/16/2024 Maximum number of drinks you had on a given occasion in the last month? 3 drinks 02/16/2024 How many alcoholic Beverages do you typically drink in a week? 0 - 7 per week 02/16/2024 Have you ever felt you should CUT down on your d rinking? 0 02/16/2024 Have you been ANNOYED by peo ple criticizing your drinking? 0 02/16/2024 Have you felt GUILTY about your drinking? 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 0 02/16/2024 CAGE Questionnaire Score 0 024 Utilities Answer Date Recorded In the past 12 months has th e mAPPn, gas, oil, or water company threatened to [...] 09/23/2024 1:45 PM EDT Evaluation [facility]SB clinical informaticist Clinic 800 [facility] [address] [place] [phone] Kelsey Cerda, DMD [address] [facility] [address] [place] [address] 10/06/2024 11:45 AM EDT Office Visit [facility] Head[facility] Neck [facility] Respiratory [address] [facility], [address]nd [place] [address] Matias Eldridge MD [address] [facility] [address] [place] [address] 12/13/2024 10:00 AM EDT Office Visit [facility] Head[facility] Neck [facility] Respiratory [address] [facility], [address] [place] [phone] Viky Menon MD [address] [facility] [address] [place] [address] 12/13/2024 1:00 PM EDT Appointment [facility] CC Radiation [address] [facility]. [id number] [place] [address] Imer Sevilla MD [address] [facility] [address] [place] [address] Scheduled Procedures Name Priority Associated Diagnoses Date/Ti me APPLICATION, GRAFT, SKIN, SPLIT-THICKNESS Wound of right lower extremity PREPARATION, WOUND, PRIOR TO SKIN GRAFT APPLICATION Wound of right lower extremity documented as of this encounter Procedures Procedure Name Priority Date/Time Associated Diagnosis Comments XR OUTSIDE IMAGES 06/30/2024 4:38 PM EDT documented in this encounter Results * XR OUTSIDE IMAGES (06/30/2024 4:38 PM EDT) Anatomical Region Laterality Modality Radiographic Rebecca ging 06/30/2024 4:38 PM EDT us External Provider IMG XR PROCEDURES Final Result documented in this encounter Visit Diagnoses Not on filedocumented in this encounter Additional Health Concerns Infection Onset Date 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 02/19/2024 Assessment Noted Time A fall risk assessment has been complete d for the patient 06/17/2024 9:31 AM EDT A Body Mass Index follow-up plan has been documented for the patient 05/13/2024 11:53 AM EST documented as of this encounter Care Teams Curing Supervisor Relationship Specialty Start Date End Date Carson Ibrahim MD [address] [facility] [address], [place] [address] PCP - General 11/20/23 Imer Sevilla MD [address] [facility] [address] [place] [phone] Consulting Physician Radiation Oncology 02/27/24 Viky Menon MD 800 [facility] Liz Barkleyrickson [facility] [address] [place] [address] Consulting Physician Medical Oncology 04/21/24 Amelia Freeman, RN Registered Nurse Hematology and Oncology 05/13/24 documented as of this encounter
--- OUTSIDE RECORDS SUMMARY | 2024-09-15 11:16 | XMS_ITS | Encounter Summary ---
Author Organization Healthcare Address [address] [place] [address] Care Team Providers Care Lead Case Manager Name Role Phone Carson Ibrahim MD Primary Care Provider + [phone] Imer Sevilla MD Unavailable Viky Menon MD Unavailable +[phone] Amelia Freeman RN Unavailable Unavailable Reason for Visit * Reason Comments Social Work/navigation Follow-up Encounter Details Date Type Department Care Team (Late st Contact Info) Description 07/20/2024 Social Work Psych Oncology [address] [place] [address] Tamar Cruz Social History Tobacco Use Types [...] money to buy more. Never true 01/08/20 Within the past 12 months, t he [...] place to sleep or slept in a half-way (including now)? 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 Pt was pleasant and engaging and inquired of the location for his upcoming scan. LAY OUT WORKER briefly informed pt location of [facility]. Pt was understanding and appreciative for the information. LAY OUT WORKER inquired if pt had spoken with family members regarding transportation for upcoming procedure. Pt disclosed that his brother in law or sister should be able to bring him. LAY OUT WORKER expressed understanding and encouraged pt to follow up should plans change and transportation be needed. Pt stated that his provider previously informed him that he would have to weara boot for approximately 2 weeks following his procedure and inquired if he needed to bring the boot he already has. LAY OUT WORKER followed up with RN to inquire further and was informed that ideally pt shouldget a new boot following his procedure but encouraged he bring his old boot and keep it in the carejust incase. LAY OUT WORKER relayed information to pt. Pt was appreciative for the assistance and denied additional questions or needs at this time. LAY OUT WORKER encouraged pt to follow up should additional needs arise.LAY OUT WORKER remains available ongoing prn. KIMBERLY Romo [phone] documented in this encounter Plan of Treatment Upcoming Encounters Date Type Department Care Team (Late st Contact Info) Description 09/23/2024 1:45 PM EDT Evaluation [facility] [address] [place] [address] Kelsey Cerda, DMD [address] [place] [id number] 10/06/2024 11:45 AM EDT Office Visit [facility] [address] [facility] [place] [address] Matias Eldridge MD [address] [facility] [address] [place] [address] 12/13/2024 10:00 AM EDT Office Visit [facility] [address] [facility] [place] [address] Viky Menon MD [address] [facility] Liz Hester [facility] [address] [place] [address] 12/13/2024 1:00 PM EDT Appointment [facility] Radiation [address] [id number] [place] [address] Imer Sevilla MD [address] [facility] [id number] [place] [address] Scheduled Procedures Name Priority Associated [...] documented as of this encounter Care Teams Lead Case Manager Relationship Specialty Start Date End Date Carson Ibrahim MD [address] [address] PCP - General 11/20/23 Imer Sevilla MD [address] [facility] [id number] [place] [address] Consulting Physician Radiation Oncology 02/27/24 Viky Menon MD [address] [place] [phone] Consulting Physician Medical Oncology 04/21/24 Amelia Freeman, RN Registered Nurse Hematology and Oncology 05/13/24 documented as of this encounter
--- OUTSIDE RECORDS SUMMARY | 2024-09-15 11:16 | XMS_ITS | Data Portability ---
Author Organization [facility] Address [address] [place] [address] Assessment Encounter Date Assessment Date Assessment LastModified by Organization Details LastModified Time 02/06/2024 02/06/2024 7.4% a1c [email or web address] Not available 01/23 22:24:41 Plan of Treatment Reminders Order Date Submit Date Provider Last Modified By Organization Details Last Modified Time Details Appointments None recorded. Lab CMP, serum or plasma 2023 024 [facility], [address], [place] F, [place], [address], 4 10:08:33 CBC w/ auto diff 2023 024 [facility], [address], [place] F, [place], [address], 4 10:08:33 renal function panel, serum 2023 024 [facility], [address], [place] F, [place], [address], 4 07:37:54 urinalysis , dipstick 2023 024 [facility], [address] [place], [address], 4 18:22:36 urinalysis complete, reflex culture 2023 024 [facility], [address], [address] F, [place], [address], 4 06:37:31 surgical pathology study 2023 024 [email or web address], [address], [place], [place], [address], 4 14:07:02 urinalysis , dipstick [address], [address] [place], [address], 4 18:38:09 microalbum in/creatin ine, mass ratio, urine [address], [address] [place], [address], 4 18:38:09 culture, urine 2023 024 [facility], [address], Manuel F, [place], [address], 4 03:35:42 HbA1c (hemoglobi n A1c), blood [address], [address] [place], [address], 4 22:25:18 RPR (rapid plasma reagin), serum 2023 024 [facility], [address], [place] [address], [place], [address], 4 03:36:19 ferritin, serum or plasma 2023 024 [facility], [address], [place] F, [place], [address], 4 03:36:23 iron + total iron-cristal ng capacity (TIBC), serum 2023 [facility], [address], [place] F, [place], [address], 4 03:36:15 borrelia burgdorfer i IgG + IgM + total panel, IA, serum 2023 [facility], [address], [place] [address], [place], [address], 4 03:36:19 iga, quantitati ve, serum 2023 [facility], [address], [place] [address], [place], [address], 4 03:36:23 erythrocyt e sedimentat ion rate by westergren method 2023 [facility], [address], [place] [address], [place], [address], 4 03:36:22 ccp (cyclic citrullina obdulia peptide) iga+igg, serum 2023 024 [facility], [address], Manuel F, [place], [address], 4 03:36:20 unlisted lab - C-anca+P-a nca w/reflex 2023 [facility], [address], [place], [place], [address], 4 03:36:17 C reactive protein, QN, serum or plasma 2023 [facility], [address], [place] [address], [place], [address], 4 03:36:24 HIMA (antinucle ar antibodies ) screen, serum 2023 024 [facility], [address], [address] F, [place], [address], 4 03:36:21 CBC w/ auto diff 2023 [facility], [address], [place], [place], [address], 4 03:36:13 CMP, serum or plasma 2023 [facility], [address], [place] F, [place], [address], 4 03:36:14 C3 + C4 (complemen t), serum 2023 [facility], [address], [place] [address], [place], [address], 4 03:36:16 rf (rheumatoi d factor), serum 2023 [facility] [facility], [address], [place] [address], [place], [address], 4 03:36:18 PT/PTT, plasma 2023 [facility], [address], [place] [address], [place], [address], 4 03:36:15 Referral community health worker referral 2023 024 [email or web address] Not available 5 11:04:[address] referral 2023 024 [email or web address] Juan C Ferraro, [address] [place] [address] , [address], [place], [address], 5 15:17:02 Procedures None recorded. Surgeries None recorded. Imaging None recorded. Medication Orders insulin glargine (U-100) 100 unit/mL (3 mL) subcutaneo us pen 2023 024 [facility], [address] [place] [address], [place], [address], 4 14:50:37 prednisone 20 mg tablet 2023 [facility], [address] [place] [address], [place], [address], 4 14:50:37 doxycyclin e monohydrat e 100 mg tablet 2023 [facility], [address] [place] [address], [place], [address], 4 14:50:37 Patient TargetsNo targets recorded. Patient Instructions Encounter Date Encounter Id Patient Instructions Last Modified By Organization Details Last Modified Time 02/06/2024 [id number] learning about healthy weight [email or web address] Not available 02/06/2024 14:13:09 body mass index: care instructions [email or web address] Not available 02/06/2024 14:13:09 learning about type 2 diabetes Not available 02/06/2024 14:45:50 type 2 diabetes: care instructions [email or web address] Not available 02/06/2024 14:45:50 rash: care instructions [email or web address] Not available 02/06/2024 14:23:30 All questions answered and pt/guardian satisfied with treatment plan. Call with changes RTC or ED if symptoms change or worsen Keep next interval checkup Cont. chronic meds as prescribed Chronic conditions are stable Discussed natural and expected course of this diagnosis and need to alert the office if symptoms do not follow expected course or if any worsens [email or web address] Not available 02/15/2024 22:25:26 02/11/2024 [id number] learning about type 2 diabetes Not available 02/11/2024 13:25:32 type 2 diabetes: care instructions [email or web address] Not available 02/11/2024 13:25:32 acute kidney injury: care instructions Not available 02/11/2024 13:25:32 All questions answered and pt/guardian satisfied with treatment plan. Call with changes RTC or ED if symptoms change or worsen Keep next interval checkup Cont. chronic meds as prescribed Chronic conditions are stable Discussed natural and expected course of this diagnosis and need to alert the office if symptoms do not follow expected course or if any worsens [email or web address] Not available 02/15/2024 22:29:31 03/08/2024 [id number] learning about type 2 diabetes [email or web address] Not available 03/18/2024 20:35:20 type 2 diabetes: care instructions [email or web address] Not available 03/18/2024 20:35:20 acute kidney injury: care instructions [email or web address] Not available 03/08/2024 11:07:04 All questions answered and pt/guardian satisfied with treatment plan. Call with changes RTC or ED if symptoms change or worsen Keep next interval checkup Cont. 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 Referral for Ac dasha kidney injury Referring Physician: [facility], Encounter Date: 02/11/2024 Community Health Worker Refe rral for Lack of access to transportation Referring Physician: [facility], Encounter Date: 03/08/2024 Results Created Date Observation Date Name Description Value Unit Range Abnormal Flag Note LastModifiedBy Organization Detail LastModifiedTime 02/06/2002/07/2024 URINE CULTU REPOLA NE urine culture, routine Final report Not Available [facility] ([facility]) [address] [place], [address], 02/08/2024 03:35:41 02/06/2002/07/2024 URINE CULTU RE ROUTI NE result 1 COMMEN T Mixed uroge nital kavin 25,00 0-50, 000 colon y formi ng units per mL Not Available [facility] ([facility]) [address] [place], [address], 02/08/2024 03:35:41 02/06/2002/07/2024 CBC WITH DIFFE RENTI AL/PL ATELE T WBC 12.5 x10e3 /uL 3.4-10 .8 above high normal Not Available [facility] ([facility]) [address] [place], [address], 02/10/2024 03:36:13 02/06/20 24 02/07/2024 CBC WITH DIFFE RENTI AL/PL ATELE T RBC 4.59 x10e6 /uL 4.14-5 .80 normal Not Available [facility] ([facility]) [address] [place], [address], 02/10/2024 03:36:13 02/06/20 24 02/07/2024 CBC WITH DIFFE RENTI AL/PL ATELE T hemoglobin 13.2 g/dL 13.0-1 7.7 normal Not Available [facility] ([facility]) [address] [place], [address], 02/10/2024 03:36:13 02/06/20 24 02/07/2024 CBC WITH DIFFE RENTI AL/PL ATELE T hematocrit 40.2 % 37.5-5 1.0 normal Not Available [facility] ([facility]) [address] [place], [address], 02/10/2024 03:36:13 02/06/20 24 02/07/2024 CBC WITH DIFFE RENTI AL/PL ATELE T MCV 88 fL 79-97 normal Not Available [facility] ([facility]) [address] [place], [address], 02/10/2024 03:36:13 02/06/20 24 02/07/2024 CBC WITH DIFFE RENTI AL/PL ATELE T MCH 28.8 pg 26.6-3 3.0 normal Not Available [facility] ([facility]) [address] [place], [address], 02/10/2024 03:36:13 02/06/20 24 02/07/2024 CBC WITH DIFFE RENTI AL/PL ATELE T MCHC 32.8 g/dL 31.5-3 5.7 normal Not Available [facility] ([facility]) [address] [facility], [place], [address], 02/10/2024 03:36:13 02/06/20 24 02/07/2024 CBC WITH DIFFE RENTI AL/PL ATELE T RDW 13.1 % 11.6-1 5.4 Not Available [facility] ([facility]) [address] [facility], [place], [address], 02/10/2024 03:36:13 02/06/20 24 02/07/2024 CBC WITH DIFFE RENTI AL/PL ATELE T platelets 668 x10e3 /uL 150-45 0 above high normal Not Available [facility] ([facility]) [address] [facility], [place], [address], 02/10/2024 03:36:13 02/06/20 24 02/07/2024 CBC WITH DIFFE RENTI AL/PL ATELE T neutrophils 71 % not estab. normal Not Available [facility] ([facility]) [address] [facility], [place], [address], 02/10/2024 03:36:13 02/06/20 24 02/07/2024 CBC WITH DIFFE RENTI AL/PL ATELE T lymphs 17 % not estab. normal Not Available [facility] ([facility]) [address] [facility], [place], [address], 02/10/2024 03:36:13 02/06/20 24 02/07/2024 CBC WITH DIFFE RENTI AL/PL ATELE T monocytes 8 % not estab. normal Not Available [facility] ([facility]) [address] [facility], [place], [address], 02/10/2024 03:36:13 02/06/20 24 02/07/2024 CBC WITH DIFFE RENTI AL/PL ATELE T eos 2 % not estab. normal Not Available [facility] ([facility]) [address] [facility], [place], [address], 02/10/2024 03:36:13 02/06/20 24 02/07/2024 CBC WITH DIFFE RENTI AL/PL ATELE T basos 1 % not estab. normal Not Available [facility] ([facility]) [address] [facility], [place], [address], 02/10/2024 03:36:13 02/06/20 24 02/07/2024 CBC WITH DIFFE RENTI AL/PL ATELE T immature cells TELEMETRY REGISTERED NURSE Not Available [facility] ([facility]) [address] [facility], [place], [address], 02/10/2024 03:36:13 02/06/20 24 02/07/2024 CBC WITH DIFFE RENTI AL/PL ATELE T neutrophils (absolute) 9.1 x10e3 /uL 1.4-7. 0 above high normal Not Available [facility] ([facility]) [address] [place], [address], 02/10/2024 03:36:13 02/06/20 24 02/07/2024 CBC WITH DIFFE RENTI AL/PL ATELE T lymphs (absolute) 2.1 x10e3 /uL 0.7-3. 1 normal Not Available [facility] ([facility]) [address] [place], [address], 02/10/2024 03:36:13 02/06/20 24 02/07/2024 CBC WITH DIFFE RENTI AL/PL ATELE T monocytes(ab solute) 0.9 x10e3 /uL 0.1-0. 9 normal Not Available [facility] ([facility]) [address] [place], [address], 02/10/2024 03:36:13 02/06/20 24 02/07/2024 CBC WITH DIFFE RENTI AL/PL ATELE T eos (absolute) 0.2 x10e3 /uL 0.0-0. 4 normal Not Available [facility] ([facility]) [address] [facility], [place], [address], 02/10/2024 03:36:13 02/06/20 24 02/07/2024 CBC WITH DIFFE RENTI AL/PL ATELE T baso (absolute) 0.1 x10e3 /uL 0.0-0. 2 normal Not Available [facility] ([facility]) [address] [facility], [place], [address], 02/10/2024 03:36:13 02/06/20 24 02/07/2024 CBC WITH DIFFE RENTI AL/PL ATELE T immature granulocytes 1 % not estab. Not Available [facility] ([facility]) [address] [facility], [place], [address], 02/10/2024 03:36:13 02/06/20 24 02/07/2024 CBC WITH DIFFE RENTI AL/PL ATELE T immature grans (abs) 0.1 x10e3 /uL 0.0-0. 1 Not Available [facility] ([facility]) [address] [facility], [place], [address], 02/10/2024 03:36:13 02/06/20 24 02/07/2024 CBC WITH DIFFE RENTI AL/PL ATELE T NRBC TELEMETRY REGISTERED NURSE Not Available [facility] ([facility]) [address] [place], [address], 02/10/2024 03:36:13 02/06/20 24 02/07/2024 CBC WITH DIFFE RENTI AL/PL ATELE T hematology comments: TELEMETRY REGISTERED NURSE Not Available [facility] ([facility]) [address] [facility], [place], [address], 02/10/2024 03:36:13 02/06/20 24 02/07/2024 COMP. METAB OLIC PANEL (14) glucose 164 mg/dL 70-99 above high normal Not Available [facility] ([facility]) [address] [facility] [place], [address], 02/10/2024 03:36:14 02/06/20 24 02/07/2024 COMP. METAB OLIC PANEL (14) BUN 61 mg/dL 6-24 above high normal Not Available [facility] ([facility]) [address] [place], [address], 02/10/2024 03:36:14 02/06/20 24 02/07/2024 COMP. METAB OLIC PANEL (14) creatinine 2.18 mg/dL 0.76-1 .27 above high normal Not Available [facility] ([facility]) [address] [facility] [place], [address], 02/10/2024 03:36:14 02/06/20 24 02/07/2024 COMP. METAB OLIC PANEL (14) eGFR 36 mL/mi n/1.7 3 >59 below low normal Not Available [facility] ([facility]) [address] [place], [address], 02/10/2024 03:36:14 02/06/20 24 02/07/2024 COMP. METAB OLIC PANEL (14) BUN/creatini ne ratio 28 9-20 above high normal Not Available [facility] ([facility]) [address] [place], [address], 02/10/2024 03:36:14 02/06/20 24 02/07/2024 COMP. METAB OLIC PANEL (14) sodium 136 mmol/ L 134-14 4 normal Not Available [facility] ([facility]) [address] [place], [address], 02/10/2024 03:36:14 02/06/20 24 02/07/2024 COMP. METAB OLIC PANEL (14) potassium 4.6 mmol/ L 3.5-5. 2 normal Not Available [facility] ([facility]) [address] [place], [address], 02/10/2024 03:36:14 02/06/20 24 02/07/2024 COMP. METAB OLIC PANEL (14) chloride 94 mmol/ L 96-106 below low normal Not Available [facility] ([facility]) [address] [place], [address], 02/10/2024 03:36:14 02/06/20 24 02/07/2024 COMP. METAB OLIC PANEL (14) carbon dioxide, total 24 mmol/ L 20-29 normal Not Available [facility] ([facility]) [address] [place], [address], 02/10/2024 03:36:14 02/06/20 24 02/07/2024 COMP. METAB OLIC PANEL (14) calcium 9.9 mg/dL 8.7-10 .2 normal Not Available [facility] ([facility]) [address] [place], [address], 02/10/2024 03:36:14 02/06/20 24 02/07/2024 COMP. METAB OLIC PANEL (14) protein, total 8.0 g/dL 6.0-8. 5 normal Not Available [facility] ([facility]) [address] [place], [address], 02/10/2024 03:36:14 02/06/20 24 02/07/2024 COMP. METAB OLIC PANEL (14) albumin 3.9 g/dL 4.1-5. 1 below low normal Not Available [facility] ([facility]) [address] [place], [address], 02/10/2024 03:36:14 02/06/20 24 02/07/2024 COMP. METAB OLIC PANEL (14) globulin, total 4.1 g/dL 1.5-4. 5 Not Available [facility] ([facility]) [address] [facility] [place], [address], 02/10/2024 03:36:14 02/06/20 24 02/07/2024 COMP. METAB OLIC PANEL (14) bilirubin, total 0.7 mg/dL 0.0-1. 2 normal Not Available [facility] ([facility]) [address] [facility] [place], [address], 02/10/2024 03:36:14 02/06/20 24 02/07/2024 COMP. METAB OLIC PANEL (14) alkaline phosphatase 91 IU/L 44-121 normal Not Available [facility]) [address] [facility] [place], [address], 02/10/2024 03:36:14 02/06/20 24 02/07/2024 COMP. METAB OLIC PANEL (14) AST (SGOT) 23 IU/L 0-40 normal Not Available [facility] ([facility]) [address] [facility] [place], [address], 02/10/2024 03:36:14 02/06/20 24 02/07/2024 COMP. METAB OLIC PANEL (14) ALT (SGPT) 24 IU/L 0-44 normal Not Available [facility] ([facility]) [address] [place], [address], 02/10/2024 03:36:14 02/06/20 24 02/07/2024 IRON AND TIBC iron bind.cap.(TI BC) 212 ug/dL 250-45 0 below low normal Not Available [facility] ([facility]) [address] [place], [address], 02/10/2024 03:36:14 02/06/20 24 02/07/2024 IRON AND TIBC UIBC 179 ug/dL 111-34 3 normal Not Available [facility] ([facility]) [address] [place], [address], 02/10/2024 03:36:14 02/06/20 24 02/07/2024 IRON AND TIBC iron 33 ug/dL 38-169 below low normal Not Available [facility] ([facility]) [address] [place], [address], 02/10/2024 03:36:14 02/06/20 24 02/07/2024 IRON AND TIBC iron saturation 16 % 15-55 normal Not Available [facility]) [address] [place], [address], 02/10/2024 03:36:14 02/06/20 24 02/07/2024 PT AND PTT INR 1.0 0.9-1. 2 Refer ence inter jennifer is for non-a ntico agula obdulia patie nts. Sugge sted INR thera peuti c range for Vitam in K antag onist thera py: Stand kelley Dose (mode rate inten sity thera peuti c range ): 2.0 - 3.0 Highe r inten sity thera peuti c range 2.5 - 3.5 Not Available [facility] ([facility]) [address] [place], [address], 02/10/2024 03:36:15 02/06/20 24 02/07/2024 PT AND PTT prothrombin time 11.4 sec 9.1-12 .0 normal Not Available [facility] ([facility]) [address] [place], [address], 02/10/2024 03:36:15 02/06/20 24 02/07/2024 PT AND PTT APTT 29 sec 24-33 normal This test has not been valid ated for monit oring unfra ction ated hepar in thera py. aPTT- based thera peuti c range s for unfra ction ated hepar in thera py have not been estab thom cantrell For gener al guide lines on Hepar in monit oring , refer to the [facility] Servi carlo. Not Available [facility] ([facility]) [address] [facility], [place], [address], 02/10/2024 03:36:15 02/06/20 24 02/07/2024 C4+C3 complement C3, serum 194 mg/dL 82-167 above high normal Not Available [facility] ([facility]) [address] [facility], [place], [address], 02/10/2024 03:36:16 02/06/20 24 02/07/2024 C4+C3 complement C4, serum 33 mg/dL 12-38 Not Available [facility] ([facility]) [address] [facility], [place], [address], 02/10/2024 03:36:16 02/06/20 24 02/09/2024 C-ANC A+P-A NCA W/REF MELISSA cytoplasmic (C-anca) <1:20 titer neg:<1 :20 Not Available [facility] ([facility]) [address] [facility], [place], [address], 02/10/2024 03:36:17 02/06/20 24 02/09/2024 C-ANC A+P-A NCA W/REF MELISSA perinuclear (P-anca) <1:20 titer neg:<1 :20 The prese nce of posit nat fluor escen ce exhib iting P-ANC A or C-ANC A patte rns alone is not speci fic for the diagn osis of Wegen er's Granu lomat osis (WG) or micro scopi c polya ngiit is. Decis ions about treat ment shoul d not be based solel y on ANCA IFA resul ts. The Inter natio nal ANCA [employer] Conse nsus recom mends follo w up testi ng of posit nat sera with both MA-3 and MPO-A NCA enzym e immun oassa ys. As many as 5% serum sampl es are posit nat only by EIA. Ref. AM J Clin Patho l 1999; 111:5 07-51 3. Not Available [facility] ([facility]) [address] [facility], [place], [address], 02/10/2024 03:36:17 02/06/20 24 02/07/2024 RHEUM ATOID FACTO R (RF) rheumatoid factor (rf) 34.4 IU/mL <14.0 above high normal Not Available [facility] ([facility]) [address] [facility], [place], [address], 02/10/2024 03:36:18 02/06/20 24 02/07/2024 RPR, RFX QN RPR/C ONFIR M TP RPR Non Reacti ve non reacti ve Not Available [facility] ([facility]) [address] [facility], [place], [address], 02/10/2024 03:36:19 02/06/20 24 02/07/2024 LYME DISEA SE SEROL OGY W/REF MELISSA lyme total antibody jameel Negati ve negati ve Lyme antib odies not detec obdulia. Refle x testi ng is not indic ated. No labor atory evide nce of infec tion with B. burgd orfer i (Lyme disea se). Negat nat resul ts may occur in patie nts recen tly infec obdulia (less than or equal to 14 days) with B. burgd orfer i. If recen t infec tion is suspe cted, repea t testi ng on a new sampl e colle cted in 7 to 14 days is recom chantell d. Not Available [facility] ([facility]) [address] [facility], [place], [address], 02/10/2024 03:36:19 02/06/20 24 02/09/2024 CCP ANTIB ODIES IGG/I GA ccp antibodies IgG/IgA 10 units 0-19 Negat nat <20 Weak posit nat 20 - 39 Moder ate posit nat 40 - 59 Stron g posit nat >59 Value s above 250 units are repor obdulia at the reque st of the clien t. Such value s are beyon d the linea rity range of the assay . Not Available [facility] ([facility]) [address] [place], [address], 02/10/2024 03:36:20 02/06/20 24 02/09/2024 ANTIN UCLEA R AB MULTI PLEX RFX 9 HIMA direct Negati ve negati ve Not Available [facility] ([facility]) [address] [facility], [place], [address], 02/10/2024 03:36:21 02/06/20 24 02/07/2024 SEDIM ENTAT ION RATE- WESTE RGREN sedimentatio n rate-westerg michelle 119 mm/HR 0-30 above high normal Not Available [facility] ([facility]) [address] [facility], [place], [address], 02/10/2024 03:36:22 02/06/20 24 02/07/2024 IMMUN OGLOB ULIN A, QN, SERUM immunoglobul in A, qn, serum 743 mg/dL 90-386 above high normal Not Available [facility] ([facility]) [address] [place], [address], 02/10/2024 03:36:23 02/06/20 24 02/07/2024 MEL TIN ferritin 800 NG/mL 30-400 above high normal Not Available [facility] ([facility]) [address] [place], [address], 02/10/2024 03:36:23 02/06/20 24 02/07/2024 C-ALEAH CTIVE PROTE IN, QUANT C-reactive protein, quant 54 mg/L 0-10 above high normal Not Available [facility] ([facility]) [address] [place], [address], 02/10/2024 03:36:24 02/06/20 24 02/06/2024 micro album in/cr eatin ine, mass ratio , urine Microalbumin 80 Not Available [address] [place], [address], 02/06/2024 15:04:46 02/06/20 24 02/06/2024 micro album in/cr eatin ine, mass ratio , urine Creatinine 300 Not Available [address] [place], [address], 02/06/2024 15:04:46 02/06/20 24 02/06/2024 micro album in/cr eatin ine, mass ratio , urine Ratio 30-300 Not Available [address] [place], [address], 02/06/2024 15:04:46 02/06/20 24 02/06/2024 urina lysis , dipst ick Leukocytes Small Not Available [address] [place], [address], 02/06/2024 15:04:45 02/06/20 24 02/06/2024 urina lysis , dipst ick Nitrite negati ve Not Available [address] [place], [address], 02/06/2024 15:04:45 02/06/20 24 02/06/2024 urina lysis , dipst ick Urobilinogen .2 Not Available [address] [place], [address], 02/06/2024 15:04:45 02/06/20 24 02/06/2024 urina lysis , dipst ick Protein 30 Not Available [address] [place], [address], 02/06/2024 15:04:45 02/06/20 24 02/06/2024 urina lysis , dipst ick pH 5.5 Not Available [address] [place], [address], 02/06/2024 15:04:45 02/06/20 24 02/06/2024 urina lysis , dipst ick Blood Non-He molyze d: Trace Not Available [address] [place], [address], 02/06/2024 15:04:45 02/06/2002/06/2024 urina lysis , dipst ick Specific Williamson 1.020 Not Available [address] [place], [address], 02/06/2024 15:04:45 02/06/20 24 02/06/2024 urina lysis , dipst ick Ketone Negati ve Not Available [address] [place], [address], 02/06/2024 15:04:45 02/06/20 24 02/06/2024 urina lysis , dipst ick Bilirubin Small Not Available [address] [place], [address], 02/06/2024 15:04:45 02/06/20 24 02/06/2024 urina lysis , dipst ick Glucose Negati ve Not Available [address] [place], [address], 02/06/2024 15:04:45 02/06/20 24 02/06/2024 urina lysis , dipst ick Appearance Clear Not Available [address] [place], [address], 02/06/2024 15:04:45 02/06/20 24 02/06/2024 urina lysis , dipst ick Color Dark Yellow Not Available [facility] [address] [place], [address], 02/06/2024 15:04:45 02/11/20 24 02/12/2024 RENAL PANEL (10) glucose 198 mg/dL 70-99 above high normal Not Available [facility] ([facility]) [address] [place], [address], 02/12/2024 07:37:54 02/11/20 24 02/12/2024 RENAL PANEL (10) BUN 49 mg/dL 6-24 above high normal Not Available [facility] ([facility]) [address] [place], [address], 02/12/2024 07:37:54 02/11/20 24 02/12/2024 RENAL PANEL (10) creatinine 1.63 mg/dL 0.76-1 .27 above high normal Not Available [facility] ([facility]) [address] [place], [address], 02/12/2024 07:37:54 02/11/20 24 02/12/2024 RENAL PANEL (10) eGFR 51 mL/mi n/1.7 3 >59 below low normal Not Available [facility] ([facility]) [address] [place], [address], 02/12/2024 07:37:54 02/11/20 24 02/12/2024 RENAL PANEL (10) BUN/creatini ne ratio 30 9-20 above high normal Not Available [facility] ([facility]) [address] [place], [address], 02/12/2024 07:37:54 02/11/20 24 02/12/2024 RENAL PANEL (10) sodium 135 mmol/ L 134-14 4 normal Not Available [facility] ([facility]) [address] [facility] [place], [address], 02/12/2024 07:37:54 02/11/20 24 02/12/2024 RENAL PANEL (10) potassium 4.6 mmol/ L 3.5-5. 2 normal Not Available [facility] ([facility]) [address] [facility] [place], [address], 02/12/2024 07:37:54 02/11/20 24 02/12/2024 RENAL PANEL (10) chloride 98 mmol/ L 96-106 normal Not Available [facility] ([facility]) [address] [facility] [place], [address], 02/12/2024 07:37:54 02/11/20 24 02/12/2024 RENAL PANEL (10) carbon dioxide, total 20 mmol/ L 20-29 normal Not Available [facility] ([facility]) [address] [facility] [place], [address], 02/12/2024 07:37:54 02/11/20 24 02/12/2024 RENAL PANEL (10) calcium 9.6 mg/dL 8.7-10 .2 normal Not Available [facility] ([facility]) [address] [facility] [place], [address], 02/12/2024 07:37:54 02/11/20 24 02/12/2024 RENAL PANEL (10) phosphorus 2.8 mg/dL 2.8-4. 1 normal Not Available [facility] ([facility]) [address] [facility] [place], [address], 02/12/2024 07:37:54 02/11/20 24 02/12/2024 RENAL PANEL (10) albumin 3.9 g/dL 4.1-5. 1 below low normal Not Available [facility] ([facility]) [address] [place], [address], 02/12/2024 07:37:54 02/11/20 24 02/12/2024 UA/M W/RFL X CULTU RE, COMP specific gravity 1.028 1.005- 1.030 normal Not Available [facility] ([facility]) [address] [facility], [place], [address], 02/13/2024 06:37:31 02/11/20 24 02/12/2024 UA/M W/RFL X CULTU RE, COMP pH 5.5 5.0-7. 5 normal Not Available [facility] ([facility]) [address] [facility], [place], [address], 02/13/2024 06:37:31 02/11/20 24 02/12/2024 UA/M W/RFL X CULTU RE, COMP urine-color Yellow yellow Not Available [facility] ([facility]) [address] [facility], [place], [address], 02/13/2024 06:37:31 02/11/20 24 02/12/2024 UA/M W/RFL X CULTU RE, COMP appearance Cloudy clear abnormal Not Available [facility] ([facility]) [address] [facility], [place], [address], 02/13/2024 06:37:31 02/11/20 24 02/12/2024 UA/M W/RFL X CULTU RE, COMP WBC esterase 3+ negati ve abnormal Not Available [facility] ([facility]) [address] [place], [address], 02/13/2024 06:37:31 02/11/20 24 02/12/2024 UA/M W/RFL X CULTU RE, COMP protein 1+ negati ve/tra ce abnormal Not Available [facility] ([facility]) [address] [place], [address], 02/13/2024 06:37:31 02/11/20 24 02/12/2024 UA/M W/RFL X CULTU RE, COMP glucose Negati ve negati ve Not Available [facility] ([facility]) [address] [place], [address], 02/13/2024 06:37:31 02/11/20 24 02/12/2024 UA/M W/RFL X CULTU RE, COMP ketones Negati ve negati ve Not Available [facility] ([facility]) [address] [place], [address], 02/13/2024 06:37:31 02/11/20 24 02/12/2024 UA/M W/RFL X CULTU RE, COMP occult blood Negati ve negati ve Not Available [facility] ([facility]) [address] [place], [address], 02/13/2024 06:37:31 02/11/20 24 02/12/2024 UA/M W/RFL X CULTU RE, COMP bilirubin Negati ve negati ve Not Available [facility] ([facility]) [address] [place], [address], 02/13/2024 06:37:31 02/11/20 24 02/12/2024 UA/M W/RFL X CULTU RE, COMP urobilinogen ,semi-qn 0.2 mg/dL 0.2-1. 0 normal Not Available [facility] ([facility]) [address] [place], [address], 02/13/2024 06:37:31 02/11/20 24 02/12/2024 UA/M W/RFL X CULTU RE, COMP nitrite, urine Negati ve negati ve Not Available [facility] ([facility]) [address] [place], [address], 02/13/2024 06:37:31 02/11/20 24 02/12/2024 UA/M W/RFL X CULTU RE, COMP microscopic examination See below: Micro scopi c was indic ated and was perfo rmed. Not Available [facility] ([facility]) [address] [facility], [place], [address], 02/13/2024 06:37:31 02/11/20 24 02/12/2024 UA/M W/RFL X CULTU RE, COMP WBC >30 /hpf 0 - 5 abnormal Not Available [facility] ([facility]) [address] [facility], [place], [address], 02/13/2024 06:37:31 02/11/20 24 02/12/2024 UA/M W/RFL X CULTU RE, COMP RBC None seen /hpf 0 - 2 Not Available [facility] ([facility]) [address] [facility], [place], [address], 02/13/2024 06:37:31 02/11/20 24 02/12/2024 UA/M W/RFL X CULTU RE, COMP epithelial cells (non renal) None seen /hpf 0 - 10 Not Available [facility] ([facility]) [address] [facility], [place], [address], 02/13/2024 06:37:31 02/11/20 24 02/12/2024 UA/M W/RFL X CULTU RE, COMP epithelial cells (renal) TELEMETRY REGISTERED NURSE Not Available [facility] ([facility]) [address] [facility], [place], [address], 02/13/2024 06:37:31 02/11/20 24 02/12/2024 UA/M W/RFL X CULTU RE, COMP casts None seen /lpf none seen Not Available [facility] ([facility]) [address] [place], [address], 02/13/2024 06:37:31 02/11/20 24 02/12/2024 UA/M W/RFL X CULTU RE, COMP cast type TELEMETRY REGISTERED NURSE Not Available [facility] ([facility]) [address] [place], [address], 02/13/2024 06:37:31 02/11/20 24 02/12/2024 UA/M W/RFL X CULTU RE, COMP crystals TELEMETRY REGISTERED NURSE Not Available [facility] ([facility]) [address] [facility], [place], [address], 02/13/2024 06:37:31 02/11/20 24 02/12/2024 UA/M W/RFL X CULTU RE, COMP crystal type TELEMETRY REGISTERED NURSE Not Available [facility] ([facility]) [address] [facility], [place], [address], 02/13/2024 06:37:31 02/11/20 24 02/12/2024 UA/M W/RFL X CULTU RE, COMP mucus threads TELEMETRY REGISTERED NURSE Not Available [facility] ([facility]) [address] [facility], [place], [address], 02/13/2024 06:37:31 02/11/20 24 02/12/2024 UA/M W/RFL X CULTU RE, COMP bacteria None seen none seen/f ew Not Available [facility] ([facility]) [address] [facility], [place], [address], 02/13/2024 06:37:31 02/11/20 24 02/12/2024 UA/M W/RFL X CULTU RE, COMP yeast Presen t none seen abnormal Not Available [facility] ([facility]) [address] [facility], [place], [address], 02/13/2024 06:37:31 02/11/20 24 02/12/2024 UA/M W/RFL X CULTU RE, COMP trichomonas TELEMETRY REGISTERED NURSE Not Available [facility] ([facility]) [address] [facility], [place], [address], 02/13/2024 06:37:31 02/11/20 24 02/12/2024 UA/M W/RFL X CULTU RE, COMP comment TELEMETRY REGISTERED NURSE Not Available [facility] ([facility]) [address] [facility], [place], [address], 02/13/2024 06:37:31 02/11/20 24 02/12/2024 UA/M W/RFL X CULTU RE, COMP microscopic examination TELEMETRY REGISTERED NURSE Not Available [facility] ([facility]) [address] [facility], [place], [address], 02/13/2024 06:37:31 02/11/20 24 02/12/2024 UA/M W/RFL X CULTU RE, COMP urinalysis reflex Commen t This speci men has refle xed to a Urine Cultu re. Not Available [facility] ([facility]) [address] [facility], [place], [address], 02/13/2024 06:37:31 02/11/20 24 02/13/2024 UA/M W/RFL X CULTU RE, COMP urine culture,comp rehensive Final report Not Available [facility] ([facility]) [address] [facility], [place], [address], 02/13/2024 06:37:31 02/11/20 24 02/13/2024 UA/M W/RFL X CULTU RE, COMP result 1 COMMEN T Mixed uroge nital kavin 50,00 0-100 ,000 colon y formi ng units per mL Not Available [facility] ([facility]) [address] [facility], [place], [address], 02/13/2024 06:37:31 02/11/20 24 02/16/2024 PATHO LOGY REPOR T . Commen t Mater ial submi tted: . leg - LEFT LEG. Modif iers: left Not Available [facility] ([facility]) [address] [facility], [place], [address], 02/16/2024 12:36:42 02/11/20 24 02/16/2024 PATHO LOGY REPOR T . 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 SEE DESCR IPTIO N. BXS 02/15 0811 Local Not Available [facility] ([facility]) [address] [place], [address], 02/16/2024 12:36:42 02/11/20 24 02/16/2024 PATHO LOGY REPOR T . Commen t Elect jermaine goodwin d: . Garcia pereyra MD, [place] topat holog ist Not Available [facility] ([facility]) [address] [place], [address], 02/16/2024 12:36:42 02/11/20 24 02/16/2024 PATHO LOGY REPOR T . Commen t Gross descr iptio n: . RECEI LAVERN IN FORMA ASYA LABEL ED WITH THE PATIE NTS NAME AND LEFT LEG IS A 5 X 5 X 2 MM PORTI ON OF WHITE SKIN DISPL AYING A CENTR AL 2 X 2 MM BROWN PAPUL E. THE SAMUEL N IS INKED BLACK . KWAN FINN AND SONJA HARRINGTON SUBMI TTED IN ONE CASSE TTE. BCO/B XS 02/11 0843 Local Not Available [facility] ([facility]) [address] [place], [address], 02/16/2024 12:36:42 02/11/2002/16/2024 PATHO LOGY REPOR T . Commen t Micro scopi c: . THERE IS AN INTRA CORNE AL COLLE CTION OF SERUM , DYSKE RATOT IC CELLS AND CELLU LAR DEBRI S. GRAM AND PAS STAIN S ARE NEGAT NAT FOR BACTE CANDY AND FUNGA L ORGAN ISMS, RESPE CTIVE LY. DIREC TLY BENEA TH THIS AREA THERE IS SEPAR ATION OF THE EPIDE RMIS FROM THE DERMI S. THERE IS NO SIGNI FICAN T INFLA MMATI ON OR EVIDE NCE OF VASCU LITIS . THE HISTO LOGIC FINDI NGS SUGGE ST END-S TAGES OF RESOL UTION OF AN INTRA EPIDE RMAL/ INTRA CORNE AL VESIC ULAR DERMA TITIS . THE PRESE NCE OF DYSKE RATOT IC CELLS IN THE CRUST RAISE S THE POSSI BILIT Y OF A VIRAL EXANT HEM. CLINI PATTI CORRE LATIO N IS NEEDE D. Not Available [facility] ([facility]) [address] [facility], [place], [address], 02/16/2024 12:36:42 02/11/2002/16/2024 PATHO LOGY REPOR T . Commen t Patho logis t provi ded ICD-1 0: L30.9 Not Available [facility] ([facility]) [address] [facility], [place], [address], 02/16/2024 12:36:42 02/11/2002/16/2024 PATHO LOGY REPOR T . Commen t CPT . 44279 1, 69867 1, 47449 2 Not Available [facility] ([facility]) [address] [facility], [place], [address], 02/16/2024 12:36:42 02/11/20 24 02/11/2024 urina lysis , dipst ick Leukocytes Large Not Available [facility] [address] [place], [address], 02/11/2024 11:57:37 11/20/20 24 02/11/2024 urina lysis , dipst ick Nitrite negati ve Not Available [address] [place], [address], 02/11/2024 11:57:37 02/11/20 24 02/11/2024 urina lysis , dipst ick Urobilinogen 1 Not Available [address] [place], [address], 02/11/2024 11:57:37 02/11/2002/11/2024 urina lysis , dipst ick Protein 30 Not Available [address] [place], [address], 02/11/2024 11:57:37 02/11/2002/11/2024 urina lysis , dipst ick pH 5.5 Not Available [address] [place], [address], 02/11/2024 11:57:37 02/11/20 24 02/11/2024 urina lysis , dipst ick Blood Non-He molyze d: Trace Not Available [address] [place], [address], 02/11/2024 11:57:37 02/11/20 24 02/11/2024 urina lysis , dipst ick Specific Williamson 1.025 Not Available [address] [place], [address], 02/11/2024 11:57:37 02/11/20 24 02/11/2024 urina lysis , dipst ick Ketone Negati ve Not Available [address] [place], [address], 02/11/2024 11:57:37 02/11/20 24 02/11/2024 urina lysis , dipst ick Bilirubin Small Not Available [facility] [address] [place], [address], 02/11/2024 11:57:37 02/11/20 24 02/11/2024 urina lysis , dipst ick Glucose Negati ve Not Available [address] [place], [address], 02/11/2024 11:57:37 02/11/20 24 02/11/2024 urina lysis , dipst ick Appearance Clear Not Available [address] [place], [address], 02/11/2024 11:57:37 02/11/20 24 02/11/2024 urina lysis , dipst ick Color Dark Yellow Not Available [address] [place], [address], 02/11/2024 11:57:37 02/15/20 24 02/15/2024 HbA1c (hemo globi n A1c), blood HbA1C 7.4 % Not Available [address] [place], [address], 02/15/2024 22:25:01 03/08/20 24 03/09/2024 CBC WITH DIFFE RENTI AL/PL ATELE T WBC 4.9 x10e3 /uL 3.4-10 .8 normal Not Available [facility] ([facility]) [address] [facility], [place], [address], 03/09/2024 10:08:33 03/08/20 24 03/09/2024 CBC WITH DIFFE RENTI AL/PL ATELE T RBC 4.19 x10e6 /uL 4.14-5 .80 normal Not Available [facility] ([facility]) [address] [place], [address], 03/09/2024 10:08:33 03/08/20 24 03/09/2024 CBC WITH DIFFE RENTI AL/PL ATELE T hemoglobin 12.0 g/dL 13.0-1 7.7 below low normal Not Available [facility] ([facility]) [address] [place], [address], 03/09/2024 10:08:33 03/08/20 24 03/09/2024 CBC WITH DIFFE RENTI AL/PL ATELE T hematocrit 36.8 % 37.5-5 1.0 below low normal Not Available [facility] ([facility]) [address] [place], [address], 03/09/2024 10:08:33 03/08/20 24 03/09/2024 CBC WITH DIFFE RENTI AL/PL ATELE T MCV 88 fL 79-97 normal Not Available [facility] ([facility]) [address] [place], [address], 03/09/2024 10:08:33 03/08/20 24 03/09/2024 CBC WITH DIFFE RENTI AL/PL ATELE T MCH 28.6 pg 26.6-3 3.0 normal Not Available [facility] ([facility]) [address] [place], [address], 03/09/2024 10:08:33 03/08/20 24 03/09/2024 CBC WITH DIFFE RENTI AL/PL ATELE T MCHC 32.6 g/dL 31.5-3 5.7 normal Not Available [facility] ([facility]) [address] [place], [address], 03/09/2024 10:08:33 03/08/20 24 03/09/2024 CBC WITH DIFFE RENTI AL/PL ATELE T RDW 15.3 % 11.6-1 5.4 Not Available [facility] ([facility]) [address] [facility], [place], [address], 03/09/2024 10:08:33 03/08/20 24 03/09/2024 CBC WITH DIFFE RENTI AL/PL ATELE T platelets 462 x10e3 /uL 150-45 0 above high normal Not Available [facility] ([facility]) [address] [facility], [place], [address], 03/09/2024 10:08:33 03/08/20 24 03/09/2024 CBC WITH DIFFE RENTI AL/PL ATELE T neutrophils 65 % not estab. normal Not Available [facility] ([facility]) [address] [facility], [place], [address], 03/09/2024 10:08:33 03/08/20 24 03/09/2024 CBC WITH DIFFE RENTI AL/PL ATELE T lymphs 19 % not estab. normal Not Available [facility] ([facility]) [address] [facility], [place], [address], 03/09/2024 10:08:33 03/08/20 24 03/09/2024 CBC WITH DIFFE RENTI AL/PL ATELE T monocytes 12 % not estab. normal Not Available [facility] ([facility]) [address] [facility], [place], [address], 03/09/2024 10:08:33 03/08/20 24 03/09/2024 CBC WITH DIFFE RENTI AL/PL ATELE T eos 3 % not estab. normal Not Available [facility] ([facility]) [address] [facility], [place], [address], 03/09/2024 10:08:33 03/08/20 24 03/09/2024 CBC WITH DIFFE RENTI AL/PL ATELE T basos 1 % not estab. normal Not Available [facility] ([facility]) [address] [facility], [place], [address], 03/09/2024 10:08:33 03/08/20 24 03/09/2024 CBC WITH DIFFE RENTI AL/PL ATELE T immature cells TELEMETRY REGISTERED NURSE Not Available [facility] ([facility]) [address] [facility], [place], [address], 03/09/2024 10:08:33 03/08/20 24 03/09/2024 CBC WITH DIFFE RENTI AL/PL ATELE T neutrophils (absolute) 3.2 x10e3 /uL 1.4-7. 0 normal Not Available [facility] ([facility]) [address] [facility], [place], [address], 03/09/2024 10:08:33 03/08/20 24 03/09/2024 CBC WITH DIFFE RENTI AL/PL ATELE T lymphs (absolute) 0.9 x10e3 /uL 0.7-3. 1 normal Not Available [facility] ([facility]) [address] [place], [address], 03/09/2024 10:08:33 03/08/20 24 03/09/2024 CBC WITH DIFFE RENTI AL/PL ATELE T monocytes(ab solute) 0.6 x10e3 /uL 0.1-0. 9 normal Not Available [facility] ([facility]) [address] [place], [address], 03/09/2024 10:08:33 03/08/20 24 03/09/2024 CBC WITH DIFFE RENTI AL/PL ATELE T eos (absolute) 0.1 x10e3 /uL 0.0-0. 4 normal Not Available [facility] ([facility]) [address] [facility], [place], [address], 03/09/2024 10:08:33 03/08/20 24 03/09/2024 CBC WITH DIFFE RENTI AL/PL ATELE T baso (absolute) 0.0 x10e3 /uL 0.0-0. 2 normal Not Available [facility] ([facility]) [address] [facility], [place], [address], 03/09/2024 10:08:33 03/08/20 24 03/09/2024 CBC WITH DIFFE RENTI AL/PL ATELE T immature granulocytes 0 % not estab. Not Available [facility] ([facility]) [address] [facility], [place], [address], 03/09/2024 10:08:33 03/08/20 24 03/09/2024 CBC WITH DIFFE RENTI AL/PL ATELE T immature grans (abs) 0.0 x10e3 /uL 0.0-0. 1 Not Available [facility] ([facility]) [address] [facility], [place], [address], 03/09/2024 10:08:33 03/08/20 24 03/09/2024 CBC WITH DIFFE RENTI AL/PL ATELE T NRBC TELEMETRY REGISTERED NURSE Not Available [facility] ([facility]) [address] [facility], [place], [address], 03/09/2024 10:08:33 03/08/20 24 03/09/2024 CBC WITH DIFFE RENTI AL/PL ATELE T hematology comments: TELEMETRY REGISTERED NURSE Not Available [facility] ([facility]) [address] [facility], [place], [address], 03/09/2024 10:08:33 03/08/20 24 03/09/2024 COMP. METAB OLIC PANEL (14) glucose 63 mg/dL 70-99 below low normal Not Available [facility] ([facility]) [address] [facility], [place], [address], 03/09/2024 10:08:33 03/08/20 24 03/09/2024 COMP. METAB OLIC PANEL (14) BUN 9 mg/dL 6-24 normal Not Available [facility] ([facility]) [address] [place], [address], 03/09/2024 10:08:33 03/08/20 24 03/09/2024 COMP. METAB OLIC PANEL (14) creatinine 1.00 mg/dL 0.76-1 .27 normal Not Available [facility] ([facility]) [address] [place], [address], 03/09/2024 10:08:33 03/08/20 24 03/09/2024 COMP. METAB OLIC PANEL (14) eGFR 92 mL/mi n/1.7 3 >59 normal Not Available [facility] ([facility]) [address] [facility] [place], [address], 03/09/2024 10:08:33 03/08/20 24 03/09/2024 COMP. METAB OLIC PANEL (14) BUN/creatini ne ratio 9 9-20 normal Not Available [facility] ([facility]) [address] [facility] [place], [address], 03/09/2024 10:08:33 03/08/20 24 03/09/2024 COMP. METAB OLIC PANEL (14) sodium 135 mmol/ L 134-14 4 normal Not Available [facility] ([facility]) [address] [facility] [place], [address], 03/09/2024 10:08:33 03/08/20 24 03/09/2024 COMP. METAB OLIC PANEL (14) potassium 4.9 mmol/ L 3.5-5. 2 normal Not Available [facility] ([facility]) [address] [facility] [place], [address], 03/09/2024 10:08:33 03/08/20 24 03/09/2024 COMP. METAB OLIC PANEL (14) chloride 98 mmol/ L 96-106 normal Not Available [facility] ([facility]) [address] [facility], [place], [address], 03/09/2024 10:08:33 03/08/20 24 03/09/2024 COMP. METAB OLIC PANEL (14) carbon dioxide, total TNP mmol/ L Test not perfo rmed. Due to a lack of repro ducib ility with this patie nt sampl e, a valid resul t could not be obtai lani. Not Available [facility] ([facility]) [address] [place] [address], [place], [address], 03/09/2024 10:08:33 03/08/20 24 03/09/2024 COMP. METAB OLIC PANEL (14) calcium 9.1 mg/dL 8.7-10 .2 normal Not Available [facility] ([facility]) [address] [place], [address], 03/09/2024 10:08:33 03/08/20 24 03/09/2024 COMP. METAB OLIC PANEL (14) protein, total 6.8 g/dL 6.0-8. 5 normal Not Available [facility] ([facility]) [address] [place], [address], 03/09/2024 10:08:33 03/08/20 24 03/09/2024 COMP. METAB OLIC PANEL (14) albumin 3.7 g/dL 4.1-5. 1 below low normal Not Available [facility] ([facility]) [address] [facility] [place], [address], 03/09/2024 10:08:33 03/08/20 24 03/09/2024 COMP. METAB OLIC PANEL (14) globulin, total 3.1 g/dL 1.5-4. 5 Not Available [facility] ([facility]) [address] [facility] [place], [address], 03/09/2024 10:08:33 03/08/20 24 03/09/2024 COMP. METAB OLIC PANEL (14) bilirubin, total 1.5 mg/dL 0.0-1. 2 above high normal Not Available [facility] ([facility]) [address] [facility] [place], [address], 03/09/2024 10:08:33 03/08/20 24 03/09/2024 COMP. METAB OLIC PANEL (14) alkaline phosphatase 133 IU/L 44-121 above high normal Not Available [facility] ([facility]) [address] [facility] [place], [address], 03/09/2024 10:08:33 03/08/20 24 03/09/2024 COMP. METAB OLIC PANEL (14) AST (SGOT) 35 IU/L 0-40 normal Not Available [facility] ([facility]) [address] [facility] [place], [address], 03/09/2024 10:08:33 03/08/20 24 03/09/2024 COMP. METAB OLIC PANEL (14) ALT (SGPT) 12 IU/L 0-44 normal Not Available [facility] ([facility]) [address] [facility], [place], [address], 03/09/2024 10:08:33 03/08/20 24 03/09/2024 PLEAS E NOTE please note Commen t The date and/o r time of colle ction was not indic ated on the requi sitio n as requi red by state and erik al law. The date of recei pt of the speci men was used as the colle ction date if not suppl ied. Not Available [facility] ([facility]) [address] [facility] [facility], [place], [address], 03/09/2024 10:08:34 Result Notes None recorded. 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 024 Von Crawford PA-C [address], [place], [address], [place] - [facility] 11/15/202 4 14:07:50 Obesity 894359910 Active 024 Von Crawford PA-C [address], [place], [address], [place] - [facility] 4 14:10:09 Eruption 959710939 Active 024 Von Crawford PA-C [address], [place] , [place], [address], [place] [facility] 4 14:22:36 Petechiae of skin 047922364 Active 024 Von Crawford PA-C [address], [place], [address], [place] [facility] 4 14:23:11 Type 2 diabetes mellitus 63747960 Active 024 Von Crawford PA-C [address], [place], [address], [place] [facility] 4 14:30:44 Acute kidney injury 56434502 Active 024 Von Crawford PA-C [address], [place], [address], [place] [facility] 4 11:55:56 Nephrotic syndrome 75157486 Active 024 Von Crawford PA-C [address], [place], [address], [place] [facility] 4 11:56:09 Skin lesion 09299773 Active 024 Von Crawford PA-C [address], [place], [address], [place] [facility] 4 18:52:02 Leukocytes in urine 931185630 Active 024 Von Crawford PA-C [address], [place], [address], [place] [facility] 4 22:29:25 Problem Notes None recorded. Procedures Surgical History Date Name Laterality Status Provider Name and Address Organization Details Recorded Time 02/11/2024 Punch Biopsy completed Von Crawford PA-C [address], [place], [address], [place] [facility] 02/15/2024 22:28:42 Imaging Results None recorded. Procedure Notes None recorded. Medical Equipment None Reported. Allergies Allergen ID Allergen Name Allergen Category Reaction Reaction Severity Criticality Documentation Date Start Date Code Code System Note Provider Name and Address Organization Details Recorded Time 292896 Product containin g penicilli n (product) medicatio n rash moderate high 02/06/2024 94707 8001 SNOMED Leatha Arriaga [facility], [place] - [facility] 4 13:21:34 Medications Name Sig Start Date Stop Date Status Note LastModified by Organization Details LastModified Time prednisone 20 mg tablet Take one tablet 3 times daily for 5 days, then take one tablet 2 times daily for 5 days, then take one tablet 1 times daily for 5 days, then take 0.5 tablet once daily for 4 days 2023 active Not Available Not Available Not Avai lable doxycycline monohydrate 100 mg tablet Take 1 tablet twice a day by oral route for 10 days. 2023 active Not Available Not Available Not Avai lable insulin glargine (U-100) 100 unit/mL (3 mL) subcutaneous pen Inject 15 units every day by subcutaneou s route as directed, for can increase by 3 units every 2-3 days to acheive fasting blood sugars below target. 2023 active Not Available Not Available Not Avai lable Vitals Date Recorded Body weight Heart rate Oxygen saturation Oxygen saturation in Arterial blood by Pulse oximetry Systolic blood pressure Diastolic blood pressure Provider Name and Address Organization Details Last Updated DateTime 4 435168. 94 g 102 /min 95 % 95 % 118 mm[Hg] 72 mm[Hg] Leatha Arriaga [place] - [facility] 4 13:28:55 Date Recorded Body weight Body temperature Heart rate Oxygen saturation Oxygen saturation in Arterial blood by Pulse oximetry Systolic blood pressure Diastolic blood pressure Provider Name and Address Organization Details Last Updated DateTime 4 413863. 57 g 97.5 [degF] 90 /min 96 % 96 % 118 mm[Hg] 74 mm[Hg] Leatha Arriaga [place] - [facility] 4 10:52:34 Date Recorded Heart rate Oxygen saturation Oxygen saturation in Arterial blood by Pulse oximetry Provider Name and Address Organization Details Last Updated DateTime 03/08/2024 82 /min 96 % 96 % Leatha Hurley [facility] 03/08/2024 10:29:31 Social History Question Answer Notes LastModified by Organizat ion Details LastModified Time Tobacco Smoking Status Never Smoker KOMAL Medina [facility] 02/06/2024 13:22:04 What Was The Date Of Your Most Recent Tobacco Screening? 02/06/2024 [email or web address] Information not available 02/06/2024 What Is Your Relationship Status? [email or web address] Information not available 02/06/2024 Has Tobacco Cessation Counseling Been Provided? Yes [email or web address] Information not available 02/06/2024 On What Date Was Tobacco Cessation Counseling Provided? 02/06/2024 [email or web address] Information not available 02/06/2024 Sex: Male Functional Status None recorded. Mental Status None recorded. Family History Nothing Reported. Medical History No medical history recorded. Immunizations Vaccine Type Date Status Note Provider Nam e and Address Organization Details Recorded Time Influenza, split virus, quadrivalent, preservative 0 completed KOMAL Medina [facility] 02/06/2024 13:20:40 COVID-19 vaccine, vector-nr, rS-Ad26, PF, 0.5 mL 1 completed KOMAL Medina [facility] 02/06/2024 13:20:41 Past Encounters Encounter ID Performer Location Encounter Start Date Encounter Closed Date Diagnosis/Indication Diagnosis SNOMED-CT Code Diagnosis ICD10 Code Diagnosis Note [id number] Von Crawford PA-C [facility] [address] [place] [address] 02/06/2024 12:54:36 02/06/2024 15:12:49 Vasculitis of the skin 56697118 L95.9 Discussed supportive care with patient. Advised to drink plenty of fluids and fluids containing electrolyt es. Try to get plenty of rest. Can take OTC pain medication such as tylenol or ibuprofen (dosed based on weight for pediatric patients) as needed to relieve fever, headache, or body aches. If patient should get worse call clinic or go to emergency room. Discussed expected course and cautioned signs and sxs to seek further treatment. Obesity 287803020 E66.9 Eruption 646274993 R21 Petechiae of skin 604090 004 R23.3 Type 2 jace betes mellitus 13576518 E11.9 7.4% a1cPT instructed to watch for high and/or low blood sugars. Monitor fingerstic k BS at home and try to keep a log. Bring log of blood sugar readings to next appointmen t appointmen t if able. Any concerns please call. Cautioned symptoms of hypoglycem ia and advised to keep glucose on hand. Avoid excess carbs and sugary drinks. Attempt to get daily exercise or follow an exercise plan as discussed. Stressed the importance of taking medication s as prescribed . [id number] Von Crawford PA-C [facility] [address] [place] [address] 02/11/2024 10:35:05 02/11/2024 12:44:33 Petechiae of skin 065732372 R23.3 Vasculitis of the skin 54205176 L95.9 Type 2 jace betes mellitus 47988231 E11.9 PT instructed to watch for high and/or low blood sugars. Monitor fingerstic k BS at home and try to keep a log. Bring log of blood sugar readings to next appointmen t appointmen t if able. Any concerns please call. Cautioned symptoms of hypoglycem ia and advised to keep glucose on hand. Avoid excess carbs and sugary drinks. Attempt to get daily exercise or follow an exercise plan as discussed. Stressed the importance of taking medication s as prescribed . Acute kidney injury 1466 9001 N17.9 Discussed supportive care with patient. Discussed expected course and cautioned signs and sxs to seek further treatment. Nephrotic syndrome 31796 009 N04.9 Leukocytes in urine 2757 67093 R82.79 rflx to culture, prior culture negative [id number] Von Crawford PA-C [facility] [address] [place] [address] 03/08/2024 10:23:58 03/08/2024 11:21:25 Acute kidney injury 05172443 N17.9 --improved per hospital records Vasculitis of the skin 11667449 L95.9 --improved Lack of ac cess to transportation 379678354 Z59.82 Type 2 jace betes mellitus 45386889 E11.9 Controlled by diet (PEG tube feedings) Health Concerns Section Related Observation LastModified by Organization Detai ls LastModified Time None Recorded Concern Status LastModified by Organization Details LastModified Time None Recorded Advance Directives Directive None Recorded Payers Insurance Date Sequence Insurance Name Policy Number Policy [place] Covered Member ID Hargroev Member ID Guarantor Name 04/03/2024 [place] [facility] [place]MEDICAID[place] [id number] Henny Daniels [id number] Henny Daniels 03/01/2024 1 [facility] STANLEY Daniels [id number] Henny Daniels 06/21/2024 1 [place] [id number] 02 Henny Daniels [id number] Henny Daniels 03/19/2024 [facility] [place] STANLEY Daniels [id number] Henny Daniels 03/01/2024 [place] [facility] WR[place]ILLING (MEDICAID) STANLEY Daniels [id number] Henny Daniels 06/21/2024 1 [facility] (MEDICAID HMO) Henny Daniels [id number] Henny Daniels Notes Date Note Type Note Provider Name and Address Organization Details Recorded Time 02/06/2024 text/html Patient presents to office accompanied by friend as new patient to establish care. 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 Patient currently with NG tune for feedings. Patient current complaint of rash to bilateral lower extremities, upper extremities. Patient complains of itching and pain at sites of rash. Rash present for almost one week. Did see surgeon approximtely a week ago near onset of rash, surgeon did not recommend intervention for rash at that time. Reports has had insulin, blood pressure medication, and blood thinner stopped recently. no new medication initiated.Had been followed by Dr. Ibrahim but needing new provider due to insurance. Dr. Eldridge surgeon at [facility] has seen leg and did not recommend intervention currently. Original surgery was january 05 where bone graft taken from RLE to use in mandible (as well as artery), skin grafting of RLE performed at that time. Graft has not taken. Has FU with Dr. Eldridge Feb 22. Dr. Cole/Stephanie [facility] oncology Reports last CT scan done on leg was performed the week before surgery, at , no further CT performed. Pt denies chest pain, SOA, difficulty eating or drinking, changes in bathroom habits, syncope/presyncope, or any other concerns. Von Crawford PA-C [address], [place], [address], [facility] - [facility] 02/15/2024 22:25:33 02/11/2024 text/html Patient presents to office for one week follow up. Patient states has been compliant with abx and steroid prescribed. Patient states pain to lower extremities, no longer utilizing walker for ambulating. Patient states odor to lower extremities has improved. Patient denies any new issues/concerns this visit. BS at home: ~low 200s Dr. Eldridge surgeon at [facility] has seen leg and did not recommend intervention currently. Original surgery was january 05 where bone graft taken from RLE to use in mandible (as well as artery), skin grafting of RLE performed at that time. Graft has not taken. Has FU with Dr. Eldridge Feb 22. Dr. Cole/Stephanie [facility] oncology Reports last CT scan done on leg was performed the week before surgery, at , no further CT performed.No other symptoms or concerns reported. Von Crawford PA-C [address], [place], [address], [facility] - [facility] 02/18/2024 20:47:30 03/08/2024 text/html Patient presents to office for follow up. Patient was admitted 8 days at hospital. Patient with wound vac in place, has changed 3x/week. Patient to begin radiation at due to [place] unable to accommodate. PEG placed 02.17. Debridement of lower extremity 02/16/24Dr Jazmyn FU 03/05/24 scheduled.Plans for chemo in [facility] for swallow study planned for cchtzjUIs74/4/2024 Dorcas Phamc03/05/2024 Donna Gregory EEDMVVSNOF78/13/2024 Matias Eldridge PIOJTSXPJR74/2WBC 7.63RBC 2.82GFR 117.6Cr 0.6 Reprots does have social worker palliative care helping (from [facility])Taking amoxicillin and bactrimfinishing bactrim todayNo other symptoms or concerns reported. Von Crawford PA-C [address], [place], [address], [place] - [facility] 03/18/2024 20:35:23
--- OUTSIDE RECORDS SUMMARY | 2024-09-15 11:16 | XMS_ITS | Encounter Summary ---
Author Organization Healthcare Address [address] [place] [address] Care Team Providers Care Regulator Inspector Name Role Phone Carson Ibrahim MD Primary Care Provider [phone] Imer Sevilla MD Unavailable Viky Menon MD Unavailable [phone] Amelia Freeman RN Unavailable Unavailable Encounter Details Date Type Department Care Team (Late st Contact Info) Description 07/05/2024 Orders Only External Location [address] [place] [address] Carson Ibrahim MD [address] [facility] [address] [place] [address] Social History Tobacco Use Types Packs/Day Years [...] place to sleep or slept in a residential (including now)? No 01/08/2024 CAGE ASSESSMENT Answer [...] drink first t idalia in the morning (EYE-BILINGUAL NANNY) to steady your nerves or to get [...] Description 09/23/2024 1:45 PM EDT Evaluation [facility] fingernail [facility] [address] [facility] [address] [place] [address] Kelsey Cerda, DMD [address] [facility] [address] [place] [address] 10/06/2024 11:45 AM EDT Office Visit [facility] [address] [facility] [place] [address] Matias Eldridge MD [address] [facility] [address] [place] [address] 12/13/2024 10:00 AM EDT Office Visit [facility] [address] [facility] [place] [address] Viky Menon MD [address] [facility] [address] [place] [address] 12/13/2024 1:00 PM EDT Appointment [facility] Radiation [address] [facility] [place] [address] Imer Sevilla MD [address] [facility] [address] [place] [address] Scheduled Procedures Name Priority Associated Diagnoses Date/Ti me APPLICATION, GRAFT, SKIN, SPLIT-THICKNESS Wound of right lower extremity PREPARATION, WOUND, PRIOR TO SKIN GRAFT APPLICATION Wound of right lower extremity documented as of this encounter Procedures Procedure Name Priority Date/Time Associated Diagnosis Comments XR OUTSIDE IMAGES 07/05/2024 11:54 AM EDT documented in this encounter Results * XR OUTSIDE IMAGES (07/05/2024 11:54 AM EDT) Anatomical Region Laterality Modality Radiographic Rebecca ging 07/05/2024 11:5 4 AM EDT Carson Ibrahim MD IMG XR PROCEDURES Final Resu lt documented in this encounter Visit Diagnoses Not [...] documented as of this encounter Care Teams Regulator Inspector Relationship Specialty Start Date End Date Carson Ibrahim MD [address] [phone] PCP - General 11/20/23 Imer Sevilla MD [address] [facility] [address] [place] [address] Consulting Physician Radiation Oncology 02/27/24 Viky Menon MD [address] [facility] [address] [place] [address] Consulting Physician Medical Oncology 04/21/24 Amelia Freeman, RN Registered Nurse Hematology and Oncology 05/13/24 documented as of this encounter
--- OUTSIDE RECORDS SUMMARY | 2024-09-15 11:16 | XMS_ITS | Data Portability ---
Author Organization [facility] DARSHAN Cueto [place] CLOSED Address [address] [place] [address] Care Team Providers Care Flower Picker Name Role Phone DANIEL LOPEZ Primary Care Provider Assessment No assessment recorded. Plan of Treatment Reminders Order Date Submit Date Provider Last Modified By Organization Details Last Modified Time Details Appointments None record ed. Lab urinal ysis, dipsti ck, auto 020 04/19/19 20 [email or web address] [facility], [address] [address], [place], [address], 0 11:26:53 Referral None record ed. Procedures None record ed. Surgeries None record ed. Imaging None record ed. Medication Orders None record ed. Patient TargetsNo targets recorded. Patient Instructions Encounter Date Encounter Id Patient Instructions Last Modified By Organization Details Last Modified Time 03/19/2019 [id number] kidney stone: care instructions [email or web address] Not available 03/19/2019 09:34:18 learning about diet for kidney stone prevention Not available 03/19/2019 09:34:18 Reason for Referral None Reported. Results Created Date Observation Date Name Description Value Unit Range Abnormal Flag Note LastModifiedBy Organization Detail LastModifiedTime 04/19/19 20 04/19/2019 urina lysis , dipst ick, auto Unknown Analyte Yellow Not Available [facility] [address], [place], [address], 04/19/2019 11:15:00 04/19/19 20 04/19/2019 urina lysis , dipst ick, auto Unknown Analyte Clear Not Available [facility] [address] [facility] [facility] [address], [place], [address], 04/19/2019 11:15:00 04/19/19 20 04/19/2019 urina lysis , dipst ick, auto Unknown Analyte 1.020 Not Available [facility] [address] [place] [address] [address], [place], [address], 04/19/2019 11:15:00 04/19/19 20 04/19/2019 urina lysis , dipst ick, auto Unknown Analyte 1.003 - 1.035 Not Available [facility] [address] [facility] [address], [place], [address], 04/19/2019 11:15:00 04/19/19 20 04/19/2019 urina lysis , dipst ick, auto Unknown Analyte 5.0 Not Available [facility] [address] [place] [address] [address], [place], [address], 04/19/2019 11:15:00 04/19/19 20 04/19/2019 urina lysis , dipst ick, auto Unknown Analyte 5.0 - 8.0 Not Available [facility] [address] [place] [address] [address], [place], [address], 04/19/2019 11:15:00 04/19/19 20 04/19/2019 urina lysis , dipst ick, auto Unknown Analyte 75 Shawanda/ul (+) Not Available [facility] [address] [facility] [address], [place], [address], 04/19/2019 11:15:00 04/19/19 20 04/19/2019 urina lysis , dipst ick, auto Unknown Analyte Negati ve Not Available [facility] [address], [place], [address], 04/19/2019 11:15:00 04/19/19 20 04/19/2019 urina lysis , dipst ick, auto Unknown Analyte Negati ve Not Available [facility] [address], [place], [address], 04/19/2019 11:15:00 04/19/19 20 04/19/2019 urina lysis , dipst ick, auto Unknown Analyte Negati ve Not Available [facility] [address], [place], [address], 04/19/2019 11:15:00 04/19/19 20 04/19/2019 urina lysis , dipst ick, auto Unknown Analyte Negtiv e Not Available [facility] [address], [place], [address], 04/19/2019 11:15:00 04/19/19 20 04/19/2019 urina lysis , dipst ick, auto Unknown Analyte Negati ve - Trace Not Available [facility] [address], [place], [address], 04/19/2019 11:15:00 04/19/19 20 04/19/2019 urina lysis , dipst ick, auto Unknown Analyte 250 mg/dl Not Available [facility] [address], [place], [address], 04/19/2019 11:15:00 04/19/19 20 04/19/2019 urina lysis , dipst ick, auto Unknown Analyte Normal Not Available [facility] [address], [place], [address], 04/19/2019 11:15:00 04/19/19 20 04/19/2019 urina lysis , dipst ick, auto Unknown Analyte Negati ve Not Available [facility] [address], [place], [address], 04/19/2019 11:15:00 04/19/19 20 04/19/2019 urina lysis , dipst ick, auto Unknown Analyte Negati ve Not Available [facility] [address], [place], [address], 04/19/2019 11:15:00 04/19/19 20 04/19/2019 urina lysis , dipst ick, auto Unknown Analyte Normal Not Available [facility] [address], [place], [address], 04/19/2019 11:15:00 04/19/19 20 04/19/2019 urina lysis , dipst ick, auto Unknown Analyte Normal - 1mg/dl Not Available [facility] [address], [place], [address], 04/19/2019 11:15:00 04/19/19 20 04/19/2019 urina lysis , dipst ick, auto Unknown Analyte Negati ve Not Available [facility] [address], [place], [address], 04/19/2019 11:15:00 04/19/19 20 04/19/2019 urina lysis , dipst ick, auto Unknown Analyte Negati ve Not Available [facility] [address], [place], [address], 04/19/2019 11:15:00 04/19/19 20 04/19/2019 urina lysis , dipst ick, auto Unknown Analyte 50 Germain/ul Not Available [facility] [address], [place], [address], 04/19/2019 11:15:00 04/19/19 20 04/19/2019 urina lysis , dipst ick, auto Unknown Analyte Negati ve Not Available [facility] [address], [place], [address], 04/19/2019 11:15:00 04/19/19 20 04/19/2019 urina lysis , dipst ick, auto Unknown Analyte Clean Catch Not Available [facility] [address], [place], [address], 04/19/2019 11:15:00 04/19/19 20 04/19/2019 urina lysis , dipst ick, auto Unknown Analyte Automa obdulia Not Available [facility] [address], [place], [address], 04/19/2019 11:15:00 03/12/20 19 03/12/2019 fluor oscop y (PROC ) No observ ation record ed. [email or web address] [facility] [address], [place], [address], 03/15/2019 13:37:50 03/12/20 19 03/12/2019 elect alexis robertsongr am No observ ation record ed. [email or web address] [facility] [address], [place], [address], 03/15/2019 13:37:22 03/16/20 19 11/13/2018 CT, abdom en + pelvi s, w/wo contr ast No observ ation record ed. [facility] [address], [place], [address], 03/16/2019 12:09:04 Result Notes None recorded. Procedures Surgical History Date Name Laterality Status Provider Name and Address Organization Details Recorded Time Hernia Repair completed [facility] 03/19/2019 09:14:56 Kidney Stone Removal completed [facility] 03/19/2019 09:15:02 Imaging Results None recorded. Procedure Notes None recorded. Medical Equipment None Reported. Allergies Allergen ID Allergen Name Allergen Category Reaction Reaction Severity Criticality Documentation Date Start Date Code Code System Note Provider Name and Address Organization Details Recorded Time 744957 Product containin g penicilli n (product) medicatio n Not available Not available Not available 03/19/2019 35903 8001 SNOMED [facility] 9 09:12:39 Medications Name Sig Start Date Stop Date Status Note LastModified by Organization Details LastModified Time metformin 500 mg tablet Take 1 tablet twice a day by oral route. active Not Available Not Available No t Available glimepiride 4 mg tablet Take 1 tablet every day by oral route. active Not Available Not Available No t Available lisinopril 20 mg-hydrochlor othiazide 25 mg tablet Take 1 tablet every day by oral route. active Not Available Not Available No t Available Tylenol active Not Available Not Avail able Not Available Vitals Date Recorded Body height Body mass index (BMI) Body weight Heart rate Systolic blood pressure Diastolic blood pressure Provider Name and Address Organization Details Last Updated DateTime 0 172.72 cm 54.3 kg/m2 760670. 48 g 83 /min 127 mm[Hg] 88 mm[Hg] [facility] 0 11:14:40 Date Recorded Body height Body mass index (BMI) Body weight Provider Name and Address Organization Details Last Updated DateTime 03/19/2019 172.72 cm 54.7 kg/m2 342066.25 g Holley Fowler [facility] 03/19/2019 09:11:14 Social History Question Answer Notes LastModified by Organizat ion Details LastModified Time Tobacco Smoking Status Never Smoker Holley Fowler [facility] 03/19/2019 09:14:37 How Much Tobacco Do You Chew? None Information not available 03/19/2019 Marital Status Informatio n not available 03/19/2019 Sex: Unknown Functional Status Question Answer Note LastModified by Organizat ion Details LastModified Time What is your level of alcohol consumption? 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 Family History Relationship Description Onset Age of this Age Resolved Age Notes LastModified by Organization Details LastModified Time Father No current problems or disability Not available 03/19 09:14:32 Mother No current problems or disability Not available 03/19 09:14:32 Medical History Condition Response Diabetes Y Hypertension Y Kidney Stones Y Past Encounters Encounter ID Performer Location Encounter Start Date Encounter Closed Date Diagnosis/Indication Diagnosis SNOMED-CT Code Diagnosis ICD10 Code Diagnosis Note [id number] MD VANESA DIAZ [facility] [address] [place] [address] 03/19/2019 09:02:30 03/19/2019 09:30:22 Urethral stricture 79648903 N99.12 follow-up in one month ,hope that this will resolve his chronic prostatiti s. He will complete his Bactrim Kidney stone 74683772 N2 0.0 [id number] MD VANESA DIAZ [facility] [address] [place] [address] 04/19/2019 10:41:18 04/19/2019 11:26:07 Urethral stricture 77518271 N99.12 is chronic prostatiti s pain has completely resolved. Follow-up 6 weeks Primary er ectile dysfunction 917359362 N52.9 plan as above Health Concerns Section Related Observation LastModified by Organization Detai ls LastModified Time None Recorded Concern Status LastModified by Organization Details LastModified Time None Recorded Advance Directives Directive None Recorded Payers Insurance Date Sequence Insurance Name Policy Number Policy Hargrove Covered Member ID Hargrove Member ID Guarantor Name 05/28/2019 1 [facility] Henny Daniels [id number] Henny Daniels Notes Date Note Type Note Provider Name and Address Organization Details Recorded Time 03/19/2019 text/html patient is here 1 week postop from DVIU of bulbous urethral stricture disease as well as left flexible diagnostic nephroscopy. He had a 7 mm stone lower pole calyx which looked to be mostly intraparenchymal. It was accessible for treatment with laser. He has a ureteral stent in place as well and is here today for Prater catheter as well as enteral stent removal. Both were removed without difficulty. We discussed possibility of recurrence of stricture disease discussed that a recurrent problem that he may benefit from urethraplasty. CLAUS LIU MD [facility] [place], [address], [facility] 03/19/2019 09:34:43 04/19/2019 text/html patient's follow-up of DVIU 1 month ago. He states that he continues to void well. He has chronic issues with frequency and urgency but his nocturia is markedly improved and he go several hours without voiding. He still has a nice caliber and flow. We discussed again observation. If he has quick recurrence of stricture disease we will consider referring him for urethroplasty. He also has erectile dysfunction and is tried sildenafil 40 mg. Her exam to try to get better control of his diabetes. He will increase his dosage to 100 mg of sildenafil and he was given a new prescription[place], [address], [facility] 04/19/2019 11:27:22
--- OUTSIDE RECORDS SUMMARY | 2024-09-15 11:16 | XMS_ITS | Clinical Summary ---
Author Organization [employer] Address [address] [place] [address] Care Team Providers Care Station Cashier Name Role Phone Unavailable Primary Care Provider Unavailabl e Social History Tobacco Use Types Packs/Day Years Used Date Smoking Tobacco: Never Assessed Interpersonal Safety Answer Date Record ed Family or friends hurt you Not on file 11/06 Family or friends insult you Not on file Family or friends threaten you Not on file 0 11/07/2023 Family or friends scream or curse at you Not on file 11/07/2023 Food Insecurity Answer Date Recorded Food run out past 12 months Not on file 10/22 Food did not last past 12 months Not on file 11/07/2023 Employment Answer Date Recorded Help finding and keeping a job Not on file 0 11/07/2023 Family and Community Support Answer Preet e Recorded Help with Day to Day Activities Not on file 11/07/2023 Feeling Lonely or Isolated Not on file 11/06 Educational Attainment Answer Date Mckay rded Speak language other than Indonesian at home Not on file 11/07/2023 Want help with school or training Not on file 11/07/2023 Depression Answer Date Recorded PHQ-2 Risk Not on file 11/07/2023 Disabilities Answer Date Recorded Difficulty concentrating Not on file 024 Difficulty doing errands alone Not on file 0 11/07/2023 Substance Use Answer Date Recorded Used prescription meds for non-medical reasons N ot on file 11/07/2023 Used illegal drugs past 12 months Not on file 11/07/2023 Sex and Gender Information Value Date Recorded Sex Assigned at Not on file Legal Sex Male 4:11 PM CDT Gender Identity Not on file Sexual Orientation Not on file Plan of Treatment Health Maintenance Due Date Last Done Comments CT Colonography 1974 Colonoscopy 1974 Colorectal Cancer Screening 1974 FOBT/FIT 1974 Fit-DNA (Cologuard) 1974 Sigmoidoscopy 1974 Depression Screening (12+) 1986 Tobacco Cessation Counseling and Screening (12+) 02/03 HIV Screening 1989 Hepatitis C Screening 02/04/1992 DTAP/TDAP/TD VACCINES (1 - Tdap) 1993 Lipid Panel 2009 COVID-19 VACCINE (2 - season) 11/23/202308/2020 Pneumococcal 50+ years (1 of 1 - PCV) 02/04/2024 Shingles Vaccine (Zoster) (1 of 2) 02/04/2024 Influenza Vaccine (Season Ended) 2024
--- OUTSIDE RECORDS SUMMARY | 2024-09-15 11:16 | XMS_ITS | Referral Summary ---
Author Organization [employer] Address [address] [place] [address] Care Team Providers Care Self Rising Flour Mixer Name Role Phone Unavailable Primary Care Provider [...] Date Mckay rded Speak language other than Guinean at home Not on file 11/07/2023 Want [...] Orientation Not on file Plan of Treatment Not on file
--- OUTSIDE RECORDS SUMMARY | 2024-09-15 11:16 | XMS_ITS | Encounter Summary ---
Author Organization Healthcare Address [address] [place] [address] Care Team Providers Care Journeyman Welder Name Role Phone Carson Ibrahim MD Primary Care Provider + [phone] Imer Sevilla MD Unavailable Viky Menon MD Unavailable [phone] Amelia Freeman RN Unavailable Unavailable Encounter Details Date Type Department Care Team (Late st Contact Info) Description 08/09/2024 Telephone [facility] Radiation [id number] [place] [address] Imer Sevilla MD [address] [place] [address] Social History Tobacco Use Types Packs/Day Years [...] place to sleep or slept in a chcf (including now)? No 01/08/2024 Housing Stability Vital [...] time in the past 12 m [facility], were you homeless or living in a chcf (including now)? No 07/28/2024 CAGE ASSESSMENT Answer [...] drink first t idalia in the morning (EYE-SCOOTER MECHANIC) to steady your nerves or to [...] Description 09/23/2024 1:45 PM EDT Evaluation [facility] [address] [facility] [address] [place] [address] Kelsey Cerda, DMD [address] [facility] [address] [place] [address] 10/06/2024 11:45 AM EDT Office Visit Pav [facility] Head, Neck & Respiratory [address] [facility], 2nd [place] [address] Matias Eldridge MD [address] [facility] [address] [place] [address] 12/13/2024 10:00 AM EDT Office Visit [facility] Head[facility] Neck & Respiratory [address] [facility], 2nd [place] [address] Viky Menon MD [address] [facility] Liz Hester [facility] [address] [place] [address] 12/13/2024 1:00 PM EDT Appointment P[facility] CC Radiation [address] [facility]. [address] [place] [address] Imer Sevilla MD [address] [facility] [address] [place] [address] Scheduled Procedures Name Priority Associated Diagnoses Date/Ti [...] documented as of this encounter Care Teams Journeyman Welder Relationship Specialty Start Date End Date Carson Ibrahim MD [address] [address] PCP - General 11/20/23 Imer Sevilla MD [address] [facility] [address] [place] [address] Consulting Physician Radiation Oncology 02/27/24 Viky Menon MD [address] [facility] [address] [place] [address] Consulting Physician Medical Oncology 04/21/24 Amelia Freeman, RN Registered Nurse Hematology and Oncology 05/13/24 documented as of this encounter
--- OUTSIDE RECORDS SUMMARY | 2024-09-15 11:16 | XMS_ITS | Encounter Summary ---
Author Organization Healthcare Address [address] [place] [address] Care Team Providers Care Classifications Officer Cc/Cm Name Role Phone Carson Ibrahim MD Primary Care Provider + [phone] Imer Sevilla MD Unavailable Viky Menon MD Unavailable [phone] Amelia Freeman RN Unavailable Unavailable Encounter Details Date Type Department Care Team (Late st Contact Info) Description 06/29/2024 Orders Only External Location [address] [place] [address] Mara Schofield, DO [address] [place] [address] Social History Tobacco Use Types Packs/Day Years [...] in a assisted (including now)? No 01/08/2024 CAGE ASSESSMENT Answer [...] drink first t idalia in the morning (EYE-STORE STOCKER) to steady your nerves or to get [...] Description 09/23/2024 1:45 PM EDT Evaluation [facility] marketing analytics analyst [facility] [address] [facility] [address] [place] [address] Kelsey Cerda, DMD [address] [facility] [address] [place] [address] 10/06/2024 11:45 AM EDT Office Visit [facility] Head[facility] Neck & Respiratory [address] [facility], [address] [place] [address] Matias Eldridge MD [address] [facility] [address] [place] [address] 12/13/2024 10:00 AM EDT Office Visit [facility] Head[facility] Neck [facility] Respiratory [address] [facility], [address] [place] [address] Viky Menon MD [address] [facility] [address] [place] [address] 12/13/2024 1:00 PM EDT Appointment [facility] Radiation [address] [facility]. [id number] [place] [address] Imer Sevilla MD [address] [facility] [address] [place] [address] Scheduled Procedures Name Priority Associated Diagnoses Date/Ti me APPLICATION, GRAFT, SKIN, SPLIT-THICKNESS Wound of right lower extremity PREPARATION, WOUND, PRIOR TO SKIN GRAFT APPLICATION Wound of right lower extremity documented as of this encounter Procedures Procedure Name Priority Date/Time Associated Diagnosis Comments CT OUTSIDE IMAGES 06/29/2024 4:30 PM EDT documented in this encounter Results * CT OUTSIDE IMAGES (06/29/2024 4:30 PM EDT) Anatomical Region Laterality Modality Computed Tomogra phy 06/29/2024 4:30 PM EDT Mara Landas IMG CT PROCEDURES Final Result documented in this encounter [...] documented as of this encounter Care Teams Classifications Officer Cc/Cm Relationship Specialty Start Date End Date Carson Ibrahim MD [id number] PCP - General 11/20/23 Imer Sevilla MD [address] [facility] [address] [place] [address] Consulting Physician Radiation Oncology 02/27/24 Viky Menon MD [address] [facility] [address] [place] [address] Consulting Physician Medical Oncology 04/21/24 Amelia Freeman, RN Registered Nurse Hematology and Oncology 05/13/24 documented as of this encounter
--- OUTSIDE RECORDS SUMMARY | 2024-09-15 11:16 | XMS_ITS | Encounter Summary ---
Author Organization Healthcare Address [address] [place] [address] Care Team Providers Care Backing In Machine Tender Name Role Phone Carson Ibrahim MD Primary Care Provider + [phone] Imer Sevilla MD Unavailable Viky Menon MD Unavailable [phone] Amelia Freeman RN Unavailable Unavailable Reason for Visit * Reason Comments Resource Navigation Encounter Details Date Type Department Care Team (Late st Contact Info) Description 08/09/2024 Social Work Psych Oncology [address] [place] [address] Tamar Cruz Social History Tobacco Use Types [...] in a prison (including now)? No 01/08/2024 Housing Stability Vital Sign Answer Preet e Recorded In the last 12 months, was t here a time when you were not able to pay the mortgage or rent on time? No 07/28/2024 In the past 12 months, how m any times have you moved where you were living? 1 07/28/2024 At any time in the past 12 m [facility], were you homeless or living in a prison (including now)? No 07/28/2024 CAGE ASSESSMENT Answer [...] drink first t idalia in the morning (EYE-ARC WELDING MACHINE OPERATOR) to steady your nerves or to [...] * Progress Notes - Tamar Cruz - 08/09/2024 11:56 AM EDT Encounter Type: Phone Call Disease Status: Established Patient Clinic Location: [facility] Disease Type: Head & Neck Services Provided: Transportation Assistance Intervention Level: 2 Units (1 unit = 15 minutes): 2 Narrative: LABORATORY TECHNOLOGIST received call from pt stating that he received a call from clinic requesting he come to clinic earlier than originally planned. Pt stated new arrival time is 1230. LABORATORY TECHNOLOGIST was able to contact [employer] transportation and update pt arrival time and obtain new metal pickling equipment operator time at 1030AM. LABORATORY TECHNOLOGIST followed up with pt to confirm this change. Pt was appreciative for the assistance and denied additional questions or needs at this time. LABORATORY TECHNOLOGIST remains available ongoing prn. Tamar Cruz SPIKEMAKING SUPERVISOR, LABORATORY TECHNOLOGIST [phone] documented in this encounter Plan of Treatment Upcoming Encounters Date Type Department Care Team (Late st Contact Info) Description 09/23/2024 1:45 PM EDT Evaluation DSB criminal investigator customs Clinic 800 [facility] [address] [place] [address] Kelsey Cerda, DMD [address] [place] [address] 10/06/2024 11:45 AM EDT Office Visit Pav CC Head, Neck & Respiratory 800 [facility], 2nd [place] [address] Matias Eldridge MD 800 [facility] 2nd [place] [address] 12/13/2024 10:00 AM EDT Office Visit Pav CC Head, Neck & Respiratory 800 [facility], 2nd [place] [address] Viky Menon MD 800 [facility] [address] [place] [address] 12/13/2024 1:00 PM EDT Appointment PAV CC Radiation 800 [facility]. [id number] [place] [address] Imer Sevilla MD 800 [facility] [address] [place] [address] Scheduled Procedures Name Priority Associated [...] documented as of this encounter Care Teams Backing In Machine Tender Relationship Specialty Start Date End Date Carson Ibrahim MD [address] [address] PCP - General 11/20/23 Imer Sevilla MD [address] [phone] Consulting Physician Radiation Oncology 02/27/24 Viky Menon MD [address] [place] [address] [address] [address] Consulting Physician Medical Oncology 04/21/24 Amelia Freeman, RN Registered Nurse Hematology and Oncology 05/13/24 documented as of this encounter
--- OUTSIDE RECORDS SUMMARY | 2024-09-15 11:16 | XMS_ITS | Encounter Summary ---
Author Organization [facility] Address [address] [place] [address] Care Team Providers Care Manager Business Information Name Role Phone Carson Ibrahim MD Primary Care Provider + [phone] Imer Sevilla MD Unavailable Viky Menon MD Unavailable [phone] Amelia Freeman RN Unavailable Unavailable Encounter Details Date Type Department Care Team (Latest Contact Info) Description 08/10/2024 Travel Social History Tobacco Use Types Packs/Day [...] place to sleep or slept in a snf (including now)? No 01/08/2024 Housing Stability Vital Sign Answer Preet e Recorded In the last 12 months, was t here a time when you were not able to pay the mortgage or rent on time? No 07/28/2024 In the past 12 months, how m any times have you moved where you were living? 1 07/28/2024 At any time in the past 12 m [facility], were you homeless or living in a snf (including now)? No 07/28/2024 CAGE ASSESSMENT Answer [...] drink first t idalia in the morning (EYE-LANDSCAPE CREW LEADER) to steady your nerves or to get rid of a hangover? 0 07/22/2024 CAGE Questionnaire Score 0 025 Utilities Answer Date Recorded In the past 12 months has th e electric, gas, oil, or water [employer] threatened to shut off services in your [...] Description 09/23/2024 1:45 PM EDT Evaluation DSB crossing guard Clinic 800 [facility] [address] [place] [address] Kelsey Cerda, DMD [address] [facility] [address] [place] [address] 10/06/2024 11:45 AM EDT Office Visit Pav CC Head, Neck & Respiratory 800 [facility], 2nd [place] [address] Matias Eldridge MD 800 [facility] 2nd [place] [address] 12/13/2024 10:00 AM EDT Office Visit Pav CC Head, Neck & Respiratory 800 [facility], 2nd [place] [address] Viky Menon MD 800 [facility] Liz Hester [facility] [address] [place] [address] 12/13/2024 1:00 PM EDT Appointment PAV CC Radiation 800 [facility]. [id number] [place] [address] Imer Sevilla MD 800 [facility] [address] [place] [address] Scheduled Procedures Name Priority Associated Diagnoses Date/Ti [...] documented as of this encounter Care Teams Manager Business Information Relationship Specialty Start Date End Date Carson Ibrahim MD [address] [place] [id number] PCP - General 11/20/23 Imer Sevilla MD 800 [facility] [address] [place] [address] Consulting Physician Radiation Oncology 02/27/24 Viky Menon MD 800 [facility] Liz Hester [facility] [address] [place] [address] Consulting Physician Medical Oncology 04/21/24 Amelia Freeman, RN Registered Nurse Hematology and Oncology 05/13/24 documented as of this encounter
--- OUTSIDE RECORDS SUMMARY | 2024-09-15 11:17 | XMS_ITS | Encounter Summary ---
Author Organization Healthcare Address [address] [place] [address] Care Team Providers Care Quality Systems Engineer Name Role Phone Carson Ibrahim MD Primary Care Provider + [phone] Imer Sevilla MD Unavailable Viky Menon MD Unavailable [phone] Amelia Freeman RN Unavailable Unavailable Reason for Visit * Reason Comments Social Work/navigation Follow-up Encounter Details Date Type Department Care Team (Late st Contact Info) Description 09/10/2024 Social Work Psych Oncology [address] [place] [address] Tamar Cruz Social History Tobacco Use Types [...] in a residential (including now)? No 01/08/2024 PHQ-9 Answer Date [...] any time in the past 12 m [facility], were you homeless or living in a residential (including now)? No 07/28/2024 CAGE ASSESSMENT Answer [...] drink first t idalia in the morning (EYE-DISTANCE LEARNING PROGRAM COORDINATOR) to steady your nerves or to [...] * Progress Notes - Tamar Cruz - 09/10/2024 8:24 AM EDT Encounter Type: Phone Call Disease Status: Established Patient Clinic Location: [facility] Disease Type: Head & Neck Education Provided: Lodging, Financial Support/Aid Intervention Level: 2 Units (1 unit = 15 minutes): 2 Narrative: DOUGH MOLDER followed up on missed call from pt inquiring of his seed cone picker time for his appt today. DOUGH MOLDER followed up with pt to ensure that he had been picked up by medicaid transportation this morning. Pt was appreciative for the call back and informed DOUGH MOLDER that he was on his way. DOUGH MOLDER expressed gladness in this and further informed pt that Famliia Holman was able to provide assistance with requested bills. Pt was appreciative for the assistance and denied additional questions or needs at this time. DOUGH MOLDER encouraged pt to follow up should additional needs arise. DOUGH MOLDER remains available ongoing prn. Tamar Cruz ROUTE SALES PERSON, DOUGH MOLDER [phone] documented in this encounter Plan of Treatment Upcoming Encounters Date Type Department Care Team (Late st Contact Info) Description 09/23/2024 1:45 PM EDT Evaluation DSB petroleum analyst Clinic [address] [place] [address] Kelsey Cerda, DMD [address] [place] [address] 10/06/2024 11:45 AM EDT Office Visit Pav CC Head, Neck & Respiratory 800 [facility], 2nd [place] [address] Matias Eldridge MD 800 [facility] 2nd [place] [address] 12/13/2024 10:00 AM EDT Office Visit Pav CC Head, Neck & Respiratory 800 [facility], 2nd [place] [address] Viky Menon MD 800 [facility] [address] [place] [address] 12/13/2024 1:00 PM EDT Appointment PAV CC Radiation 800 [facility]. [id number] [place] [address] Imer Sevilla MD 800 [facility] [address] [place] [address] Scheduled Procedures Name Priority Associated Diagnoses Date/Ti [...] documented as of this encounter Care Teams Quality Systems Engineer Relationship Specialty Start Date End Date Carson Ibrahim MD 1210 [facility] [address] [place] [address] PCP - General 11/20/23 Imer Sevilla MD [address] [facility] [address] [place] [address] Consulting Physician Radiation Oncology 02/27/24 Viky Menon MD [address] [facility] [address] [place] [address] Consulting Physician Medical Oncology 04/21/24 Amelia Freeman, RN Registered Nurse Hematology and Oncology 05/13/24 documented as of this encounter
--- OUTSIDE RECORDS SUMMARY | 2024-09-15 11:17 | XMS_ITS | Encounter Summary ---
Author Organization [facility] Address [address] [place] [address] Care Team Providers Care Merchandise Presentation Manager Name Role Phone Carson Ibrahim MD Primary Care Provider + [phone] Imer Sevilla MD Unavailable Viky Menon MD Unavailable [phone] Amelia Fereman RN Unavailable Unavailable Encounter Details Date Type Department Care Team (Latest Contact Info) Description 09/08/2024 Travel Social History Tobacco Use Types Packs/Day [...] any time in the past 12 m [facility], were you homeless or living [...] drink first t idalia in the morning (EYE-MECHANICAL INTEGRITY ENGINEER) to steady your nerves or to [...] Description 09/23/2024 1:45 PM EDT Evaluation DSB chip crusher operator Clinic 800 [facility] [address] [place] [address] Kelsey Cerda, DMD [address] [place] [address] 10/06/2024 11:45 AM EDT Office Visit Pav CC Head, Neck & Respiratory 800 [facility], 2nd [place] [address] Matias Eldridge MD [address] [facility] 2[address] [place] [address] 12/13/2024 10:00 AM EDT Office Visit Pav CC Head, Neck & Respiratory 800 [facility], 2nd [place] [address] Viky Menon MD 800 [facility] [address] [place] [address] 12/13/2024 1:00 PM EDT Appointment PAV CC Radiation 800 [facility]. [id number] [place] [address] Imer Sevilla MD 800 [facility] [address] [place] [address] Scheduled Procedures Name Priority Associated Diagnoses Date/Ti [...] documented as of this encounter Care Teams Merchandise Presentation Manager Relationship Specialty Start Date End Date Carson Ibrahim MD [address] [address] PCP - General 11/20/23 Imer Sevilla MD 800 [facility] [address] [place] [address] Consulting Physician Radiation Oncology 02/27/24 Viky Menon MD 800 [facility] Liz Hester [facility] [address] [place] [address] Consulting Physician Medical Oncology 04/21/24 Amelia Freeman, RN Registered Nurse Hematology and Oncology 05/13/24 documented as of this encounter
--- OUTSIDE RECORDS SUMMARY | 2024-09-15 11:17 | XMS_ITS | Encounter Summary ---
Author Organization [facility] Address [address] [place] [address] Care Team Providers Care Digital Account Director Name Role Phone Carson Ibrahim MD Primary Care Provider + [phone] Imer Sevilla MD Unavailable Viky Menon MD Unavailable [phone] Amelia Freeman RN Unavailable Unavailable Encounter Details Date Type Department Care Team (Latest Contact Info) Description 09/02/2024 Travel Social History Tobacco Use Types Packs/Day [...] place to sleep or slept in a senior care (including now)? No 01/08/2024 PHQ-9 Answer Date [...] any time in the past 12 m [facility], were you homeless or living in a senior care (including now)? No 07/28/2024 CAGE ASSESSMENT Answer [...] drink first t idalia in the morning (EYE-AIR DEFENSE ARTILLERY SENIOR SERGEANT) to steady your nerves or to get [...] as of this encounter Functional Status * Over the past 2 weeks, how often have you been bothered by any of the following problems? Question Answer Date of Assessment Author Little interest or pleasure in doing things Not at all 09/02/2024 8:44 AM Juanpablo Oh Feeling down, depressed, or hopeless Not at all 09/02/2024 8:44 AM Juanpablo Oh Patient Health Questionnaire -2 Score 0 09/02/2024 [...] down Not at all 09/02/2024 8:44 AM EDT Juanpablo Jaimes Trouble concentrating on thi ngs, such as [...] Questionnaire -9 Score 0 09/02/2024 8:44 AM EDT Juanpablo Fowler * If you checked off any problems on this questionnaire so far, Question Answer Date of Assessment Author How difficult have these problems made it for you to do your work, take care of things at home, or get along with other people? Not difficult at all 09/02/2024 8:44 AM EDT Juanpablo Fowler documented as of this encounter Plan of Treatment Upcoming Encounters Date Type Department Care Team ([facility] st Contact Info) Description 09/23/2024 1:45 PM EDT Evaluation DSB sleep technologist Clinic 800 [facility] [address] [place] [address] Kelsey Cerda, DMD [address] [facility] [address] [place] [address] 10/06/2024 11:45 AM EDT Office Visit Pav CC Head, Neck & Respiratory 800 [facility], 2nd [place] [address] Matias Eldridge MD [address] [place] [address] Cancer Ctr 2nd [place] [address] 12/13/2024 10:00 AM EDT Office Visit Pav CC Head, Neck & Respiratory 800 [facility], 2nd [place] [address] Viky Menon MD [address] [place] [address] Liz Hester [facility] [address] [place] [address] 12/13/2024 1:00 PM EDT Appointment PAV CC Radiation 800 [facility]. [id number] [place] [address] Imer Sevilla MD [address] [place] [address] [address] [place] [address] Scheduled Procedures Name Priority Associated Diagnoses Date/Ti [...] documented as of this encounter Care Teams Digital Account Director Relationship Specialty Start Date End Date Carson Ibrahim MD [address] [address] PCP - General 11/20/23 Imer Sevilla MD 800 [facility] [address] [place] [address] Consulting Physician Radiation Oncology 02/27/24 Viky Menon MD 800 [facility] [address] [place] [address] Consulting Physician Medical Oncology 04/21/24 Amelia Freeman, RN Registered Nurse Hematology and Oncology 05/13/24 documented as of this encounter
--- OUTSIDE RECORDS SUMMARY | 2024-09-15 11:17 | XMS_ITS | Encounter Summary ---
Author Organization Healthcare Address [address] [place] [address] Care Team Providers Care Multi Punch Operator Name Role Phone Carson Ibrahim MD Primary Care Provider + [phone] Imer Sevilla MD Unavailable Viky Menon MD Unavailable [phone] Amelia Freeman RN Unavailable Unavailable Reason for Visit * Reason Comments Resource Navigation Encounter Details Date Type Department Care Team (Late st Contact Info) Description 08/31/2024 Social Work Psych Oncology [address] [place] [address] Tamar Cruz Social History Tobacco Use Types [...] in a residential (including now)? No 01/08/2024 Housing Stability Vital [...] time in the past 12 m [facility], were you homeless [...] drink first t idalia in the morning (EYE-UNIFORM ATTENDANT) to steady your nerves or to get [...] * Progress Notes - Tamar Cruz - 08/31/2024 3:24 PM EDT Encounter Type: Phone Call Disease Status: Established Patient Clinic Location: [facility] Disease Type: Head & Neck Services Provided: Transportation Assistance Education Provided: Transportation Community Referrals: Medicaid Transportation Program Intervention Level: 3 Units (1 unit = 15 minutes): 2 Narrative: HEMATOLOGY ONCOLOGY CONSULTANT received call from pt stating that he had an appt scheduled for 09/10 and is in need of transportation assistance for this date. HEMATOLOGY ONCOLOGY CONSULTANT was able to schedule medicaid transportation for 09/10 with 8AM turkey picker time (confirmation [id number]). HEMATOLOGY ONCOLOGY CONSULTANT informed pt of confirmation and turkey picker time. Pt was appreciative for the assistance and denied additional questions or needs at this time. HEMATOLOGY ONCOLOGY CONSULTANT remains available ongoing prn. Tamar Cruz RACE CAR DRIVER, HEMATOLOGY ONCOLOGY CONSULTANT [phone] documented in this encounter Plan of Treatment Upcoming Encounters Date Type Department Care Team (Late st Contact Info) Description 09/23/2024 1:45 PM EDT Evaluation DSB behavior support specialist Clinic 800 [facility] [address] [place] [address] Kelsey Cerda, DMD [address] [place] [address] 10/06/2024 11:45 AM EDT Office Visit Pav CC Head, Neck & Respiratory 800 [facility], 2nd [place] [address] Matias Eldridge MD 800 [facility] 2[address] [place] [address] 12/13/2024 10:00 AM EDT Office Visit Pav CC Head, Neck & Respiratory 800 [facility], 2nd [place] [address] Viky Menon MD 800 [facility] [address] [place] [address] 12/13/2024 1:00 PM EDT Appointment PAV CC Radiation 800 [facility]. [id number] [place] [address] Imer Sevilla MD 800 [facility] [address] [place] [address] Scheduled Procedures Name Priority Associated [...] documented as of this encounter Care Teams Multi Punch Operator Relationship Specialty Start Date End Date Carson Ibrahim MD 1210 [facility] [address] [place] [address] PCP - General 11/20/23 Imer Sevilla MD 800 [facility] [address] [place] [address] Consulting Physician Radiation Oncology 02/27/24 Viky Menon MD [address] [place] [address] St Liz Hester [facility] [address] [place] [address] Consulting Physician Medical Oncology 04/21/24 Amelia Freeman, RN Registered Nurse Hematology and Oncology 05/13/24 documented as of this encounter
--- OUTSIDE RECORDS SUMMARY | 2024-09-15 11:17 | XMS_ITS | Encounter Summary ---
Author Organization Healthcare Address [address] [place] [place] [id number] Care Team Providers Care Reference Investigator Name Role Phone Carson Ibrahim MD Primary Care Provider + [phone] Imer Sevilla MD Unavailable Viky Menon MD Unavailable [phone] Amelia Freeman RN Unavailable Unavailable Encounter Details Date Type Department Care Team (Late st Contact Info) Description 09/02/2024 Refill Pav CC Head, Neck & Respiratory 800 [facility], 2nd [place] [address] Viky Menon MD 800 [facility] [address] [place] [address] Social History Tobacco Use Types [...] place to sleep or slept in a [place] health care facility (including now)? No 01/08/2024 PHQ-9 Answer Date [...] any time in the past 12 m [facility], were you homeless or living in a [place] health care facility (including now)? No 07/28/2024 CAGE ASSESSMENT Answer [...] drink first t idalia in the morning (EYE-BUTCHER HEAD) to steady your nerves or to get rid of a hangover? 0 07/22/2024 CAGE Questionnaire Score 0 025 Utilities Answer Date Recorded In the past 12 months has th e [email or web address], gas, oil, or water [employer] threatened to shut off services in your [...] things Not at all 09/02/2024 8:44 AM SHANIT Juanpablo Fowler Feeling down, depressed, or hopeless Not at all 09/02/2024 8:44 AM SHANIT Juanpablo Fowler Patient Health Questionnaire -2 Score [...] usual. Not at all 09/02/2024 8:44 AM EDT Juanpablo Fowler Thoughts that you would be b rogers off or hurting yourself in some way Not at all 09/02/2024 8:44 AM EDT Juanpablo Fowler Patient Health Questionnaire -9 Score 0 09/02/2024 [...] Juanpablo Fowler documented as of this encounter Miscellaneous Notes * Telephone Encounter - Amelia Freeman RN - 09/02/2024 3:40 PM EDT He just needed refills on his meds, which I processed. * Telephone Encounter - Fidelia Alexander - 09/02/2024 1:29 PM EDT Patient Phone Message Reason for Call:Patient is needing to talk to the nurse about his medication Best contact number and optimal time of day to reach caller:[phone] Note: Please do not reply to this [...] Description 09/23/2024 1:45 PM EDT Evaluation DSB waiter and cashier Clinic [address] [address] Kelsey Cerda, DMD [address] [place] [address] 10/06/2024 11:45 AM EDT Office Visit Pav CC Head, Neck & Respiratory 800 [facility], 2nd [place] [address] Matias Eldridge MD 800 [facility] 2nd [place] [address] 12/13/2024 10:00 AM EDT Office Visit Pav CC Head, Neck & Respiratory 800 [facility], 2nd [place] [address] Viky Menon MD 800 [facility] [address] [place] [address] 12/13/2024 1:00 PM EDT Appointment PAV CC Radiation 800 [facility]. [id number] [place] [address] Imer Sevilla MD 800 [facility] [address] [place] [address] Scheduled Procedures Name Priority Associated [...] documented as of this encounter Care Teams Reference Investigator Relationship Specialty Start Date End Date Carson Ibrahim MD [address] [facility] [address] [place] [address] PCP - General 11/20/23 Imer Sevilla MD [address] [facility] [address] [place] [address] Consulting Physician Radiation Oncology 02/27/24 Viky Menon MD [address] Liz Hester [facility] [address] [place] [address] Consulting Physician Medical Oncology 04/21/24 Amelia Freeman, RN Registered Nurse Hematology and Oncology 05/13/24 documented as of this encounter
--- OUTSIDE RECORDS SUMMARY | 2024-09-15 11:17 | XMS_ITS | Encounter Summary ---
Author Organization Healthcare Address [address] [place] [address] Care Team Providers Care Church Supervisor Name Role Phone Carson Ibrahim MD Primary Care Provider + [phone] Imer Sevilla MD Unavailable Viky Menon MD Unavailable +[phone] Amelia Freeman RN Unavailable Unavailable Reason for Visit * Reason Comments Resource Navigation Encounter Details Date Type Department Care Team (Late st Contact Info) Description 08/23/2024 Social Work Psych Oncology [address] [place] [address] Tamar Cruz Social History Tobacco Use Types [...] in a retirement (including now)? No 01/08/2024 Housing Stability Vital Sign Answer Preet e Recorded In the last 12 months, was t here a time when you were not able to pay the mortgage or rent on time? No 07/28/2024 In the past 12 months, how m any times have you moved where you were living? 1 07/28/2024 At any time in the past 12 m [facility], were you homeless or living in a retirement (including now)? No 07/28/2024 CAGE ASSESSMENT Answer [...] drink first t idalia in the morning (EYE-SMT MACHINE OPERATOR) to steady your nerves or [...] Progress Notes - Tamar Cruz Nik - 08/23/2024 9:21 AM EDT Encounter Type: Phone Call Disease Status: Established Patient Clinic Location: [facility] Disease Type: Head & Neck Services Provided: Clinical Navigation, Transportation Assistance Education Provided: Transportation Community Referrals: Medicaid Transportation Program Intervention Level: 3 Units (1 unit = 15 minutes): 2 Narrative: LINE BUILDER contacted pt regarding scheduled transportation for 09/02 (7AM miner pick/confirmation [id number]) and 09/08 (830AM miner pick/confirmation [id number]). Pt was appreciative for the assistance. Pt stated that hissister might bring him to his appts on 09/08, however, requested to keep transportation scheduled until this was confirmed. LINE BUILDER expressed understanding and encouraged pt to follow up should changes beneeded. LINE BUILDER inquired of pt wellbeing. Pt stated he was doing ok and felt the same as he has been.Pt stated that his recent PET appt did not go as he anticipated and there were a couple places thatshowed up on his scan. Pt stated that he and his provider believed it could be from the infection in his body and would do a repeat scan after pt completed his 6 weeks of antibiotics. LINE BUILDER expressed understanding and encouraged pt to be mindful of how he was feeling and to discuss this with his providers as needed. Pt inquired of next steps to receive dentures. Pt stated that he was referred to general dentistry and was informed that they were unable to assist. LINE BUILDER informed pt that a referral tooral surgery was placed on 08/12 and that he should receive follow up soon for an appt. LINE BUILDER additionally committed to relaying this question to provider RN to ensure this is a topic of conversation for pts upcoming clinic appt. Pt was appreciative for the assistance. Pt denied additional questions or needs at this time. LINE BUILDER encouraged pt to follow up should additional needs arise. LINE BUILDER remains available ongoing prn. Tamar Cruz LINE INSTALLER REPAIRER, LINE BUILDER [phone] documented in this encounter Plan of Treatment Upcoming Encounters Date Type Department Care Team (Late st Contact Info) Description 09/23/2024 1:45 PM EDT Evaluation DSB case finishing machine adjuster Clinic 800 [facility] [address] [place] [phone] Kelsey Cerda, DMD [address] [facility] [address] [place] [address] 10/06/2024 11:45 AM EDT Office Visit Pav CC Head, Neck & Respiratory 800 [facility], 2nd [place] [phone] Matias Eldridge MD 800 [facility] 2nd [place] [address] 12/13/2024 10:00 AM EDT Office Visit Pav CC Head, Neck & Respiratory 800 [facility], 2nd [place] [phone] Viky Menon MD 800 [facility] Liz Hester [facility] [address] [place] [address] 12/13/2024 1:00 PM EDT Appointment PAV CC Radiation 800 [facility]. [id number] [place] [phone] Imer Sevilla MD [address] [place] [address] [address] [place] [phone] Scheduled Procedures Name Priority Associated Diagnoses Date/Ti [...] documented as of this encounter Care Teams Church Supervisor Relationship Specialty Start Date End Date Carson Ibrahim MD [facility] [address] [address] PCP - General 11/20/23 Imer Sevilla MD 800 [facility] [address] [place] [phone] Consulting Physician Radiation Oncology 02/27/24 Viky Menon MD 800 [facility] Liz Hester [facility] [address] [place] [address] Consulting Physician Medical Oncology 04/21/24 Amelia Freeman, RN Registered Nurse Hematology and Oncology 05/13/24 documented as of this encounter
--- OUTSIDE RECORDS SUMMARY | 2024-09-15 11:17 | XMS_ITS | Encounter Summary ---
Author Organization Healthcare Address [address] [place] [address] Care Team Providers Care Associate Attorney Name Role Phone Carson Ibrahim MD Primary Care Provider + [phone] Imer Sevilla MD Unavailable Viky Menon MD Unavailable [phone] Amelia Freeman RN Unavailable Unavailable Reason for Visit * Reason Comments Resource Navigation Encounter Details Date Type Department Care Team (Late st Contact Info) Description 09/07/2024 Social Work Psych Oncology [address] [place] [address] Tamar Cruz Social History Tobacco Use Types [...] in a snf (including now)? No 01/08/2024 PHQ-9 Answer Date [...] any time in the past 12 m [facility], were you homeless or living [...] drink first t idalia in the morning (EYE-SCRUBBER SYSTEM ATTENDANT) to steady your nerves or to [...] * Progress Notes - Tamar Cruz - 09/07/2024 2:03 PM EDT Encounter Type: Phone Call Disease Status: Established Patient Clinic Location: [facility] Disease Type: Head & Neck Services Provided: Transportation Assistance Education Provided: Transportation, SSDI/SSI, Financial Support/Aid Community Referrals: Medicaid Transportation Program, Second Sight Intervention Level: 3 Units (1 unit = 15 minutes): 2 Narrative: SHOPFITTER received call from pt requesting transportation assistance for upcoming appt. Pt disclosed thathe had an appt for 09/23 to see dentistry and would need medicaid transportation. SHOPFITTER was able to scheduled transportation for 09/23 with 11:30 AM poultry picking machine tender time (confirmation [id number]). SHOPFITTER relayed this information to the pt. Pt was appreciative for the assisitance. Pt disclosed that he recently was told he had heart failure. Pt stated that he planned to inform his provider of this during his appt tomorrow. SHOPFITTER encouraged pt to talk to his provider for additional guidance on how this may affect his care. Pt disclosed due to this dx he will not be able to return to work and has filed for SSDI. Pt stated he filed approximately 2 months ago and has yet to hear of his approval status. SHOPFITTER informed pt that sometimes individuals are denied and encouraged pt to appeal this if needed. SHOPFITTER encouraged pt to follow up should any documents be needed regarding his care. Pt was understanding and agreed to follow up as needed. Pt expressed that he was hopeful to get to go back to work and expressed sadness over not being able to. SHOPFITTER discussed prioritizing his health and care at this time. SHOPFITTER additionally highlighted some positive aspects in that he will be discussing dentures during his upcoming dental appt. Pt expressed gladness in this and was hopeful he could get them. Pt worried if his insurance would cover this. SHOPFITTER encouraged pt to work with his providers regarding the orders for his dentalcare. SHOPFITTER additionally educated pt of [facility] Living that he might be eligible for that could assist with dental care and dentures if needed. Pt was appreciative for the information. Pt lastly inquired offinancial assistance for bills until he is approved for SSDI. SHOPFITTER discussed with pt additional moes way referral and encouraged him to email bills he is needing assistance with. Pt emailed current bills to SHOPFITTER. SHOPFITTER was able to submit SW referral on pt behalf and SHOPFITTER committed to following up with updates as they are received. Pt was appreciative for the assistance and denied additional needs at this time. SHOPFITTER encouraged pt to follow up should needs or questions arise. SHOPFITTER remains available ongoing prn. Electronically Signed by: Tamar Cruz - 09/07/2024 - 4:49 PM documented in this encounter Plan of Treatment Upcoming Encounters Date Type Department Care Team (Late st Contact Info) Description 09/23/2024 1:45 PM EDT Evaluation DSB shade cutter Clinic [address] [phone] Kelsey Cerda, DMD [address] [facility] [address] [place] [phone] 10/06/2024 11:45 AM EDT Office Visit Pav CC Head, Neck & Respiratory 800 [facility], 2nd [place] [phone] Matias Eldridge MD 800 [facility] [address] [place] [phone] 12/13/2024 10:00 AM EDT Office Visit Pav CC Head, Neck & Respiratory 800 [facility], 2nd [place] [phone] Viky Menon MD 800 [facility] [address] [place] [address] 12/13/2024 1:00 PM EDT Appointment PAV CC Radiation 800 [facility]. [id number] [place] [address] Imer Sevilla MD 800 [facility] [address] [place] [address] Scheduled Procedures Name Priority Associated Diagnoses [...] documented as of this encounter Care Teams Associate Attorney Relationship Specialty Start Date End Date Carson Ibrahim MD [address] [place], [place] [phone] PCP - General 11/20/23 Imer Sevilla MD [address] [phone] Consulting Physician Radiation Oncology 02/27/24 Viky Menon MD 800 [facility] [address] [place] [phone] Consulting Physician Medical Oncology 04/21/24 Amelia Freeman, RN Registered Nurse Hematology and Oncology 05/13/24 documented as of this encounter
--- OUTSIDE RECORDS SUMMARY | 2024-09-15 11:18 | XMS_ITS | Encounter Summary ---
Author Organization Healthcare Address [address] [place] [address] Care Team Providers Care Picker Name Role Phone Carson Ibrahim MD Primary Care Provider + [phone] Imer Sevilla MD Unavailable Viky Menon MD Unavailable [phone] Amelia Freeman RN Unavailable Unavailable Encounter Details Date Type Department Care Team (Late st Contact Info) Description 09/14/2024 Telephone Pav CC Head, Neck & Respiratory 800 [facility], 2nd [place] [phone] Matias Eldridge MD 800 [facility] 2nd [place] [address] Social History Tobacco Use Types Packs/Day Years [...] place to sleep or slept in a custodial (including now)? No 01/08/2024 PHQ-9 Answer Date [...] time in the past 12 m [facility], were you homeless or living in a custodial (including now)? No 07/28/2024 CAGE ASSESSMENT Answer [...] drink first t idalia in the morning (EYE-RETORT LOADER) to steady your nerves or to get rid of a hangover? 0 07/22/2024 CAGE Questionnaire Score 0 025 Utilities Answer Date Recorded In the past 12 months has th e [employer], gas, oil, or water company threatened to shut off services in your home? No 07/28/2024 Sex and Gender Information Value Date Recorded Sex Assigned at Male 01/06/2024 6:14 AM EDT Legal Sex Male 7:47 PM EDT Gender Identity Male 01/06/2024 6:14 AM EDT Sexual Orientation Not on file documented as of this encounter Miscellaneous Notes * Telephone Encounter - Syl Isaac - 09/14/2024 4:08 PM EDT [employer] called to ask about a continuation prescription for a wound vac. [phone] ext [phone] documented in this encounter Plan of Treatment Upcoming Encounters Date Type Department Care Team (Late st Contact Info) Description 09/23/2024 1:45 PM EDT Evaluation DSB manager presentation Clinic [address] [phone] Kelsey Cerda, DMD [address] [place] [phone] 10/06/2024 11:45 AM EDT Office Visit Pav CC Head, Neck & Respiratory 800 [facility], 2nd [place] [phone] Matias Eldridge MD 800 [facility] [address] [place] [phone] 12/13/2024 10:00 AM EDT Office Visit Pav CC Head, Neck & Respiratory 800 [facility], 2nd [place] [phone] Viky Menon MD 800 [facility] Liz Hester [facility] [address] [place] [address] 12/13/2024 1:00 PM EDT Appointment PAV CC Radiation 800 [facility]. [id number] [place] [phone] Imer Sevilla MD [address] [address] Scheduled Procedures Name Priority Associated Diagnoses [...] documented as of this encounter Care Teams Picker Relationship Specialty Start Date End Date Carson Ibrahim MD [address] [place] [address] PCP - General 11/20/23 Imer Sevilla MD [address] [phone] Consulting Physician Radiation Oncology 02/27/24 Viky Menon MD 800 [facility] Liz Hester [facility] [address] [place] [address] Consulting Physician Medical Oncology 04/21/24 Amelia Freeman, RN Registered Nurse Hematology and Oncology 05/13/24 documented as of this encounter
--- OUTSIDE RECORDS SUMMARY | 2024-09-15 11:18 | XMS_ITS | Encounter Summary ---
Author Organization Healthcare Address [address] [place] [address] Care Team Providers Care Toll Line Inspector Name Role Phone Carson Ibrahim MD Primary Care Provider + [phone] Imer Sevilla MD Unavailable Viky Menon MD Unavailable [phone] Amelia Freeman RN Unavailable Unavailable Reason for Visit * Reason Comments Resource Navigation Encounter Details Date Type Department Care Team (Late st Contact Info) Description 09/13/2024 Social Work Psych Oncology [address] [place] [address] Tamar Cruz Social History Tobacco Use Types [...] place to sleep or slept in a skilled nursing (including now)? No 01/08/2024 PHQ-9 Answer Date [...] any time in the past 12 m [facility], were you homeless or living in a skilled nursing (including now)? No 07/28/2024 CAGE ASSESSMENT Answer [...] drink first t idalia in the morning (EYE-DENTAL PROFESSIONAL) to steady your nerves or to get [...] * Progress Notes - Tamar Cruz - 09/13/2024 11:38 AM EDT Encounter Type: Email / MyChart Disease Status: Established Patient Clinic Location: [facility] Disease Type: Head & Neck Services Provided: Financial Support Community Referrals: Gina Holman Intervention Level: 3 Units (1 unit = 15 minutes): 2 Narrative: DEPARTMENT STORE MANAGER received email from pt requesting financial assistance via lianet holman for an additional bill this month. DEPARTMENT STORE MANAGER submitted requested bill to lianet holman and will follow up as updates are received.There were no additional questions or needs at this time. DEPARTMENT STORE MANAGER remains available ongoing prn. Tamar Cruz SALES ATTENDANT, DEPARTMENT STORE MANAGER [phone] documented in this encounter Plan of Treatment Upcoming Encounters Date Type Department Care Team ([facility] st Contact Info) Description 09/23/2024 1:45 PM EDT Evaluation DSB global engineering manager Clinic 800 [facility] [address] [place] [address] Kelsey Cerda, DMD [address] [place] [phone] 10/06/2024 11:45 AM EDT Office Visit Pav CC Head, Neck & Respiratory 800 [facility], 2nd [place] [address] Matias Eldridge MD 800 [facility] 2nd [place] [address] 12/13/2024 10:00 AM EDT Office Visit Pav CC Head, Neck & Respiratory 800 [facility], 2nd [place] [address] Viky Menon MD 800 [facility] [address] [place] [address] 12/13/2024 1:00 PM EDT Appointment PAV CC Radiation 800 [facility]. [id number] [place] [address] Imer Sevilla MD 800 [facility] [address] [place] [address] Scheduled Procedures Name Priority Associated [...] documented as of this encounter Care Teams Toll Line Inspector Relationship Specialty Start Date End Date Carson Ibrahim MD [facility] [address] [address] PCP - General 11/20/23 Imer Sevilla MD 800 [facility] [address] [place] [address] Consulting Physician Radiation Oncology 02/27/24 Viky Menon MD 800 [facility] Liz Hester [address] [address] Consulting Physician Medical Oncology 04/21/24 Amelia Freeman, RN Registered Nurse Hematology and Oncology 05/13/24 documented as of this encounter
--- OUTSIDE RECORDS SUMMARY | 2024-09-15 11:18 | XMS_ITS | Encounter Summary ---
Author Organization [facility] Address [address] [place] [address] Care Team Providers Care Adult Basic Education Instructor Name Role Phone Carson Ibrahim MD Primary Care Provider + [phone] Imer Sevilla MD Unavailable Viky Menon MD Unavailable [phone] Amelia Freeman RN Unavailable Unavailable Encounter Details Date Type Department Care Team (Latest Contact Info) Description 09/10/2024 Travel Social History Tobacco Use Types Packs/Day [...] any time in the past 12 m [facility], were you homeless or living [...] drink first t idalia in the morning (EYE-DERMATOLOGY NURSE) to steady your nerves or to get [...] Description 09/23/2024 1:45 PM EDT Evaluation DSB public relations senior associate Clinic 800 [facility] [address] [place] [address] Kelsey Cerda, DMD [address] [place] [phone] 10/06/2024 11:45 AM EDT Office Visit Pav CC Head, Neck & Respiratory 800 [facility], 2nd [place] [phone] Matias Eldridge MD 800 [facility] 2nd [place] [address] 12/13/2024 10:00 AM EDT Office Visit Pav CC Head, Neck & Respiratory [address] [facility], 2nd [place] [phone] Viky Menon MD 800 [facility] [address] [place] [phone] 12/13/2024 1:00 PM EDT Appointment PAV CC Radiation [address] [facility]. [id number] [place] [phone] Imer Sevilla MD 800 [facility] [address] [place] [address] Scheduled Procedures Name Priority Associated Diagnoses Date/Ti [...] documented as of this encounter Care Teams Adult Basic Education Instructor Relationship Specialty Start Date End Date Carson Ibrahim MD [address] [address] PCP - General 11/20/23 Imer Sevilla MD 800 [facility] [address] [place] [phone] Consulting Physician Radiation Oncology 02/27/24 Viky Menon MD 800 [facility] Liz Hester [facility] [address] [place] [address] Consulting Physician Medical Oncology 04/21/24 Amelia Freeman, RN Registered Nurse Hematology and Oncology 05/13/24 documented as of this encounter
--- OUTSIDE RECORDS SUMMARY | 2024-09-15 11:18 | XMS_ITS ---
Author Organization [facility] Address [address] 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 CINV (chemotherapy-induced nausea and vomiting) 02/18/2024 Severe obesity (BMI 35.0-39.9) with comorbidity 02/17/2024 Severe protein-calorie malnutrition 02/17/2024 Dysphagia, oropharyngeal 02/02/2024 Hyperlipidemia 02/02/2024 Right flank pain 02/02/2024 Vomiting 02/02/2024 Cancer related pain 02/02/2024 Hypertension 01/07/2024 Overview (01/07/2024): SBP goal < 180 PRN hydralazine and labetalol Resume home medications as appropriate (Lisinopril 20 / hydrochlorothiazide 25mg) Frequent PVCs 01/07/2024 Overview (01/08/2024): Resolved, none noted in previous 12 hours EKG, Labs, CXR WNL No acute chest pain or s/sx distress Electrolyte abnormality 01/07/2024 Overview (01/07/2024): Replace per ICU sliding scale policy Continue close assessment Feeding difficulties 01/07/2024 Overview (01/07/2024): DHT in place from OR TF ongoing per dietary recs MEDICAL OFFICE ASSISTANT consulted GERD (gastroesophageal reflux disease) Overview (01/07/2024): Takes PRN at home Continue PPI 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 Past Treatment and Therapy Plans Oncology Treatment Plan Name Start Date Discontinue Date Treatment Medications Discontinue Reason Plan Provider Cycles CARBOplatin + XRT Every 7 Days 04/29/2024 07/22/2024 CARBOplatin (Paraplatin) chemo IVPB (by AUC: GOG-COCKCROFT GAULT) Therapy Complete Viky Menon MD 1 of 1 cycle started CISplatin + XRT Every 7 Days 03/31/2024 04/22/2024 CISplatin (Platinol)CISp latin (Platinol) IVPB Toxicity/Compl ication Viky Menon MD 3 of 7 cycles started Current Radiation Episodes * VMAT: Bilateral Head and neckOverview* First Treatment Date Latest Treatment Date Treatment Site Technique Goal Episode Provider 03/26/2024 05/17/2024 Bilateral Head and neck VMAT Prophylactic * Linked Problems Cancer of external lower 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, face and neck Treatment Courses* Course C2 03/31/2024 - 05/17/2024 Treatment Period Fraction Dose Fractions Total Dose Plans Planned H&N A1A4 03/31/2024 - 05/17/2024 200 cGy 33 / 33 6 ,600 cGy Reference Points Delivered H&N 03/31/2024 - 05/17/2024 6,600 cGy * Course IMRT QA 03/26/2024 - 03/26/2024 Treatment Period Fraction Dose Fractions Total Dose Plans Planned H&N A1A4 03/26/2024 - 03/26/2024 200 cGy 0 / 1 2 00 cGy Reference Points Delivered Verification 03/26/2024 - 03/26/2024 0 cGy Lifetime Dose Tracking * Chemical Lifetime Dose Automatic Entry Manual Entr y Fluoro Time 10.3 minutes 10.3 minutes 0 minutes Air Kerma 137.3 mGy 137.3 mGy 0 mGy Resolved Problems Problem Noted Date Diagnosed Date Resolved Date Wound infection after surgery 02/17/2024 02/23/2024 Morbid obesity 01/07/2024 01/07/2024 UTI (urinary tract infection) 01/07/2024 01/07/2024 Type 2 diabetes mellitus 01/07/2024 High blood pressure 01/01/2024 01/07/20 24
--- OUTSIDE RECORDS SUMMARY | 2024-09-15 11:18 | XMS_ITS | Clinical Summary ---
Author Organization [facility] Address [address] [place] [address] Care Team Providers Care Charge Nurse Name Role Phone Carson Ibrahim MD Primary Care Provider + [phone] Imer Sevilla MD Unavailable Willie Penaloza MD Unavailable +[phone] Amelia Freeman RN Unavailable Unavailable Allergies Active Allergy Reactions Criticality Noted Date Comments Penicillins Rash,Swelling High 03/12/2019 A CHILD Medications ondansetron ODT (Zofran-ODT) 8 MG disintegrating tablet Take 1 tablet (8 mg) by mouth every 8 hours as needed for nausea or vomiting. 30 tablet 3 05/13/19 25 Active Additional Information Patient not taking.Reported on 09/10/2024 cyclobenzaprine (Flexeril) 5 MG tablet Take 1 tablet by mouth 3 times a day as needed for muscle spasms. Active methocarbamol (Robaxin) 500 MG tablet TAKE 2 TABLETS BY MOUTH EVERY 8 HOURS NEEDED FOR MUSCLE PAIN AND SPASM 07/01/19 25 Active famotidine (Pepcid) 20 MG tablet Take 1 tablet by mouth at night as needed for heartburn. Active traZODone (Desyrel) 100 MG tablet Take 1 tablet by mouth nightly. Active Multiple Vitamin (multivitamin) tablet Take 1 tablet by mouth daily. Active acetaminophen (Tylenol) 500 MG tablet Take 2 tablets by mouth every 6 hours as needed for pain. Active metoprolol succinate XL (Toprol-XL) 25 MG 24 hr tablet Take 1 tablet by mouth daily. Do not crush or chew. 90 tablet 3 07/29/19 25 Active Additional Information Patient not taking.Reported on 09/10/2024 diclofenac (Voltaren) 1 % topical gel Place on the skin 2 times a day. Apply as directed to the chest at the area of pain 50 g 2 08/13/19 25 Active metroNIDAZOLE (Flagyl) 500 MG tablet 07/06/19 Active sodium chloride 0.9 % solution 07/06/19 Active vancomycin (Vancocin) 10 g reconstituted solution 07/06/19 Active oxyCODONE (Roxicodone) 10 MG immediate release tablet Take 1-2 tablets by mouth every 4 hours as needed for severe pain (g89.3). 180 tablet 09/03/19 25 025 Active polyethylene glycol (Miralax) 17 GM/SCOOP powder Take 17 g by mouth daily as needed (constipation) . 510 g 3 09/03/19 25 Active polyethylene glycol (Miralax) 17 GM/SCOOP powder MIX 17 GRAMS OF POWDER IN 8 OUNCES OF LIQUID AND DRINK ONCE DAILY 510 g 06/22/19 25 025 Discontinu ed(Reorder ) DAPTOmycin (Cubicin) injectionIndicatio ns:Acute osteomyelitis of left clavicle (CMS/HCC) Infuse 18 mL into a venous catheter 1 (one) time each day at the same time over 3 minutes. Inpatient/[place] specific directions only. Mix and deliver per institution/ cility policy. 1 each 07/29/19 25 025 Additional Information Patient not taking.Reported on 09/10/2024 oxyCODONE (Roxicodone) 10 MG immediate release tablet Take 1-2 tablets by mouth every 4 hours as needed for severe pain (g89.3). 180 tablet 08/05/19 25 025 Discontinu ed(Reorder ) Active Problems Problem Noted Date Diagnosed Date [...] from OR TF ongoing per dietary recs [employer] consulted GERD (gastroesophageal reflux disease) Overview (01/07/2024): [...] 01/06/2024:Stage IVB(rpTX, rpN3b, rcM0) - Signed by Willie Penaloza MD on 02/02/2024 Resolved Problems Problem Noted Date Diagnosed Date Resolved Date Wound infection after surgery 02/17/2024 02/23/2024 Morbid obesity 01/07/2024 01/07/2024 UTI (urinary tract infection) 01/07/2024 01/07/2024 Type 2 diabetes mellitus 01/07/2024 High blood pressure 01/01/2024 01/07/20 Encounters Date Type Department Care Team Description 09/14/2024 Telephone [facility] [address] [facility], 2nd [place] [address] Matias Eldridge MD 09/13/2024 Social Work Psych Oncology [address] [place] [phone] Cruz, Tamar L 09/10/2024 9:13 AM EDT Hospital Encounter [facility] Radiation [address] [id number] [place] [phone] Imer Sevilla MD Secondary malignant neoplasm lymph nodes of head, face and neck (CMS/HCC) (Primary Dx) 09/10/2024 Travel 09/10/2024 Social Work Psych Oncology [address] [place] [phone] Cruz, Tamar L 09/08/2024 10:45 AM EDT Office Visit [facility] Neck [facility] Res[facility] [address] [facility] 2nd [place] [phone] Matias Eldridge MD Squamous cell carcinoma, lip (Primary Dx); Malignant neoplasm of external lower lip; Dysphagia, oropharyngeal 09/08/2024 Travel 09/07/2024 Social Work Psych Oncology [address] [place] [phone] Cruz, Tamar L 09/02/2024 9:30 AM EDT Office Visit [facility] [address] [place] [phone] Susana Johnson MD MRSA bacteremia (Primary Dx); Acute osteomyelitis of left clavicle (CMS/HCC) 09/02/2024 Refill [facility] Head[facility] Neck [facility] Respiratory [address] [facility]nd [place] [phone] Willie Penaloza MD 09/02/2024 Travel 08/31/2024 Social Work Psych Oncology [address] [place] [phone] Cruz, Tamar L 08/23/2024 Social Work Psych Oncology [address] [place] [phone] Cruz, Tamar L 08/12/2024 8:53 AM EDT - 08/12/2024 11:59 PM EDT Hospital Encounter [facility] Radiation [address] [place] [phone] Imer Sevilla MD 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) Discharge Disposition: Still a Patient 08/12/2024 8:30 AM EDT Office Visit [facility] [address] [place] [phone] Susana Johnson MD Acute osteomyelitis of left clavicle (CMS/HCC) (Primary Dx); Squamous cell carcinoma, lip; MRSA bacteremia; Bacteremia; Other acute osteomyelitis, other site (CMS/HCC) 08/12/2024 Travel 08/10/2024 11:48 AM EDT - 08/10/2024 11:59 PM EDT Hospital Encounter [facility] PET Scan [address] [place] [phone] Discharge Disposition: Home or Self Care 08/10/2024 11:48 AM EDT - 08/10/2024 11:59 PM EDT Hospital Encounter [facility] PET Scan [address] [place] [phone] Squamous cell carcinoma of neck; Malignant neoplasm of external lower lip Discharge Disposition: Home or Self Care 08/10/2024 Travel 08/09/2024 Telephone [facility] Radiation [address] [place] [phone] Imer Sevilla MD 08/09/2024 Social Work Psych Oncology [address] [place] [phone] Cruz, Tamar L 08/04/2024 Social Work Psych Oncology [address] [place] [phone] Tamar Cruz 08/04/2024 Refill [facility] Res[facility] [address] [phone] Willie Penaloza MD 07/30/2024 External Documentation Encounter [address] [address] Tanya Hamilton, DANIEL 07/29/2024 Social Work Psych Oncology [address] [place] [phone] Tamar Cruz Nik 07/29/2024 Clinical Support [address] [address] Joe Sepulveda, PharmD 07/26/2024 Orders Only [facility] Respiratory [address] [place] [phone] Willie Penaloza MD 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); Squamous cell carcinoma, lip; Squamous cell carcinoma of neck; Secondary malignant neoplasm lymph nodes of head, face and neck (CMS/HCC) 07/26/2024 Travel 07/22/2024 12:28 PM EDT - 07/28/2024 4:19 PM EDT Hospital Encounter [facility] Inpatient [address] [place] [address] Rashad Avalos MD Dweik, Anass G, MD Humphries, Roger L, MD Wimberly, Katherine E, MD Acute osteomyelitis of sternum (CMS/HCC) (Primary Dx); Squamous cell carcinoma, lip; Secondary malignant neoplasm lymph nodes of head, face and neck (CMS/HCC); Acute osteomyelitis of left clavicle (CMS/HCC); HFrEF (heart failure with reduced ejection fraction) (CMS/HCC) Discharge Disposition: Home-Health Care [facility] 07/22/2024 9:30 AM EDT Office Visit [facility] Ne[facility] Respiratory [address] [phone] Willie Penaloza MD Bacteremia (Primary Dx); Malignant neoplasm of external lower lip; Other acute osteomyelitis, other site (CMS/HCC); Cancer related pain; CINV (chemotherapy-induce d nausea and vomiting) 07/22/2024 9:15 AM EDT Clinical Support [facility]ck [facility] Respiratory [address] [facility]nd [place] [address] Squamous cell carcinoma, lip; Secondary malignant neoplasm lymph nodes of head, face and neck (CMS/HCC); Dysphagia, oropharyngeal phase 07/22/2024 Social Work Psych Oncology [address] [place] [address] Tamar Cruz 07/22/2024 Travel 07/21/2024 2:02 PM EDT - 07/21/2024 11:59 PM EDT Hospital Encounter [facility] Radiology [address] [place] [address] Squamous cell carcinoma, lip; Secondary malignant neoplasm lymph nodes of head, face and neck (CMS/HCC); Dysphagia, oropharyngeal phase Discharge Disposition: Home or Self Care 07/21/2024 Travel 07/20/2024 Social Work Psych Oncology [address] [place] [address] Tamar Cruz 07/16/2024 3:15 PM EDT Pre-Admission Testing [facility] Pre-op Clinic [address], [address] [place] [address] 07/16/2024 Travel 07/14/2024 9:10 AM EDT Consult [facility] Otolaryngology [address] [place] [address] Charmaine Romo MD Subjective tinnitus of left ear (Primary Dx) 07/14/2024 8:30 AM EDT Office Visit [facility] Audiology [address] [place] [address] Holley Bonilla AuD Sensorineural hearing loss (SNHL) of both ears (Primary Dx); Tinnitus of left ear 07/14/2024 Travel 07/12/2024 Social Work Psych Oncology [address] [place] [phone] Cruz, Tamar L 07/08/2024 Social Work Psych Oncology [address] [place] [phone] Cruz, Tamar L 07/07/2024 4:00 PM EDT Office Visit [facility] Adult Dentistry [address] [place], [place] [phone] Yayo Stone A Edentulism (Primary Dx) 07/07/2024 Travel 07/07/2024 Social Work Psych Oncology [address] [place] [address] Cruz, Tamar L 07/06/2024 Social Work Psych Oncology [address] [place] [address] Cruz, Tamar L 07/06/2024 Refill [facility] [address] [phone] Amelia Freeman RN 07/05/2024 Orders Only External Location [address] [place] [address] Carson Ibrahim MD 07/05/2024 Social Work Psych Oncology [address] [place] [address] Julieta Price 07/05/2024 Telephone [facility] Res[facility] [address] [phone] Willie Penaloza MD 07/05/2024 Telephone [facility] Res[facility] [address] [phone] Matias Eldridge MD 07/02/2024 Social Work Psych Oncology [address] [place] [address] Cruz, Tamar L 07/02/2024 Telephone [facility] Res[facility] [address] [phone] Matias Eldridge MD 06/30/2024 Orders Only External Location [address] [place] [address] Provider, External 06/29/2024 Orders Only External Location [address] [place] [phone] Mara Schofield, 06/29/2024 Orders Only External Location [address] [place] [phone] Provider, External 06/29/2024 Orders Only External Location [address] [place] [phone] Provider, External 06/22/2024 Social Work Psych Oncology [address] [place] [phone] Cruz, Tamar L 06/21/2024 Refill [facility] [address] [phone] Willie Penaloza MD 06/18/2024 Social Work Psych Oncology [address] [place] [phone] Cruz, Tamar L 06/17/2024 10:00 AM EDT Office Visit [facility] [address] [phone] Matias Eldridge MD 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); Secondary malignant neoplasm lymph nodes of head, face and neck (CMS/HCC); Squamous cell carcinoma of neck; Stiffness of neck; Squamous cell carcinoma, lip 06/17/2024 Social Work Psych Oncology [address] [place] [phone] Cruz, Tamar L 06/17/2024 Travel 06/16/2024 Telephone [facility] Respiratory [address] [phone] Matias Eldridge MD 06/16/2024 Social Work Psych Oncology [address] [place] [phone] Cruz, Tamar L 06/15/2024 Social Work Psych Oncology [address] [place] [phone] Cruz, Tamar L from Last 3 Months Immunizations Immunization Administration Dates Next Due Influenza, injectable, quadrivalent 01/11/2020 Family History Medical History Relation Name Comments Brain cancer Cousin Lung cancer Father's Brother Lung cancer Mother Stomach cancer Mother's Brother Cancer Other Anesthesia problems Neg Hx Malig Hyperthermia Neg Hx Relation Name Status Comments Cousin Alive Father's Brother Alive Mother Mother's Brother Alive Other Social History Tobacco Use Types Packs/Day Years [...] place to sleep or slept in a usp (including now)? No 01/08/2024 PHQ-9 Answer Date [...] any time in the past 12 m [facility], were you homeless or living in a usp (including now)? No 07/28/2024 CAGE ASSESSMENT Answer [...] drink first t idalia in the morning (EYE-DRILLER BRAKE LINING) to steady your nerves or to get [...] AM EDT Sexual Orientation Not on file Last Filed Vital Signs Vital Sign Reading Time Taken Comments Blood Pressure 108/69 09/10/2024 9:53 AM EDT Pulse 52 09/10/2024 9:53 AM EDT Temperature 36.6 C (97.8 F) 09/08/2024 9:51 AM EDT Respiratory Rate 18 09/10/2024 9:47 AM EDT Oxygen Saturation 97% 09/10/2024 9:53 AM EDT Inhaled Oxygen Concentration - - Weight 88.6 kg (195 lb 5.2 oz) 09/10/2024 9:47 A M EDT Height 177.8 cm (5' 10 ) 09/02/2024 8:45 AM EDT Body Mass Index 28.03 09/02/2024 8:45 AM EDT Plan of Treatment Upcoming Encounters Date Type Department Care Team (Late st Contact Info) Description 09/23/2024 1:45 PM EDT Evaluation [facility] [address] [facility] [address] [place] [phone] Kelsey Cerda, DMD [address] [facility] [address] [place] [address] 10/06/2024 11:45 AM EDT Office Visit [facility] Head[facility] Neck [facility] Respiratory [address] [facility]nd [place] [phone] Matias Eldridge MD [address] [facility] 2nd [place] [phone] 12/13/2024 10:00 AM EDT Office Visit [facility] Head[facility] Neck [facility] Respiratory [address] [facility]nd [place] [phone] Willie Penaloza MD [address] [facility] [address] [place] [phone] 12/13/2024 1:00 PM EDT Appointment [facility] Radiation [address] [facility] [place] [phone] Imer Sevilla MD [address] [facility] [address] [place] [phone] Scheduled Procedures Name Priority Associated Diagnoses Date/Ti me APPLICATION, GRAFT, SKIN, SPLIT-THICKNESS Wound of right lower extremity PREPARATION, WOUND, PRIOR TO SKIN GRAFT APPLICATION Wound of right lower extremity Health Maintenance Due Date Last Done Comments Dental Oral Exam 1974 Dental Prophylaxis 1974 Dental X-Ray: Bitewings 1974 Dental X-Ray: Full Mouth 1974 [facility]-Infant/Child/Adol SDOH Screenings 1974 Diabetes: Dental Exam 02/04/1984 [facility]-DTaP,Tdap,and Td Vaccines (1 - Tdap) 1993 [facility]-Hepatitis B Vaccines (1 of 3 - 19+ 3-dose series) 1993 [facility]-Pneumococcal Vaccine: 50+ Years (1 of 2 - PCV) 1993 [facility]-Zoster Vaccines (1 of 2) 1993 CT Colonography 2019 Colonoscopy 2019 FIT-DNA 2019 FIT 2019 FOBT 2019 Sigmoidoscopy 2019 [facility]-Colorectal Cancer Screening 2019 [id number] Vaccine (2 - Gurpreet risk series) 07/25/2020 06/27/2020 [facility]-Influenza Vaccine (Season Ended) 2024 01/11/2020 [facility]-Diabetes: Hemoglobin A1C 01/19/2025 07/22/2024, 01/07/2024 [facility]- SDOH Screenings 01/28/2025 [facility]-Adult SDOH Screenings 01/28/2025 07/28/2024 [facility]-Depression Screening 09/02/2025 09/02/2024, 08/22 [facility]-HIV Screening Completed 01/16/2024 [facility]-Hepatitis C Screening Completed 01/16/2024 [facility]-Obesity Intervention Completed 025, 08/12/2024, 07/29/2024, Additional history exists HPV Vaccines Aged Out No longer eligi ble based on patient's age to complete this topic [facility]-HIB Vaccines Aged Out No longer e ligible based on patient's age to complete this topic [facility]-Hepatitis A Vaccines Aged Out No longer eligible based on patient's age to complete this topic [facility]-IPV Vaccines Aged Out No longer e ligible based on patient's age to complete this topic [facility]-Rotavirus Vaccines Aged Out No lo nger eligible based on patient's age to complete this topic Medical Devices Implanted Type Area Motorcycle Sales Associate Device Identifier Shelf Expiration Date Model / Serial / Lot Model Anatomical Mandible White - [id number] Implanted:Qty: 1 on 01/06/2024 by Jyothi Vega MD at [facility]01/05/2025 [id number] / / Plate Ti Pspc Matrixmand Ang Recon 7x23h/2mm Lt - [id number] Implanted:Qty: 1 on 01/06/2024 by Jyothi Vega MD at [id number] 01/05/2025 [id number] / / Screw 2.0mm Matrix[employer] St 8mm - [id number] Implanted:Qty: 3 on 01/06/2024 by Jyothi Vega MD at [facility]01/05/2025 [id number] .01 / / Screw 2.0mm [employer] [address] 6mm - [id number] Implanted:Qty: 2 on 01/06/2024 by Jyothi Vega MD at [facility]01/05/2025 [id number] .01 / / Screw 2.4mm [employer] St 8mm - [id number] Implanted:Qty: 2 on 01/06/2024 by Jyothi Vega MD at [facility]01/05/2025 [id number] .01 / / Screw 2.4mm [employer] St 10mm - [id number] Implanted:Qty: 2 on 01/06/2024 by Jyothi Vega MD at [facility]01/05/2025 [id number] .01 / / Screw 2.4mm [employer] St 12mm - [id number] Implanted:Qty: 2 on 01/06/2024 by Jyothi Vega MD at [facility]01/05/2025 [id number] .01 / / Screw 2.4mm [employer] St 14mm - [id number] Implanted:Qty: 2 on 01/06/2024 by Jyothi Vega MD at [facility]01/05/2025 [id number] .01 / / Procedures Procedure Name Priority Date/Time Associated Diagnosis Comments PICC REMOVAL (CLINIC-PERFORMED) Routine 09/02/2024 9:05 AM EDT Acute osteomyelitis of left clavicle (CMS/HCC) MRSA bacteremia CK Routine 08/30/2024 CBC WITH AUTO DIFFERENTIAL Routine 08/30/2024 C-REACTIVE PROTEIN, PLASMA Routine 08/30/2024 UREA NITROGEN, PLASMA Routine 08/30/2024 CREATININE, PLASMA Routine 08/30/2024 HEPATIC FUNCTION PANEL Routine 08/30/2024 CK Routine 08/23/2024 CBC WITH AUTO DIFFERENTIAL Routine 08/23/2024 COMPREHENSIVE METABOLIC PANEL, PLASMA Routine 08/23/2024 C-REACTIVE PROTEIN, PLASMA Routine 08/23/2024 CK Routine 08/18/2024 CBC WITH AUTO DIFFERENTIAL Routine 08/18/2024 C-REACTIVE PROTEIN, PLASMA Routine 08/18/2024 UREA NITROGEN, PLASMA Routine 08/18/2024 CREATININE, PLASMA Routine 08/18/2024 HEPATIC FUNCTION PANEL Routine 08/18/2024 PET/CT FDG SKULL BASE TO MID THIGH Routine 08/10/2024 2:07 PM EDT 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 CK Routine 08/09/2024 CBC WITH AUTO DIFFERENTIAL Routine 08/09/2024 C-REACTIVE PROTEIN, PLASMA Routine 08/09/2024 UREA NITROGEN, PLASMA Routine 08/09/2024 CREATININE, PLASMA Routine 08/09/2024 HEPATIC FUNCTION PANEL Routine 08/09/2024 CK Routine 08/02/2024 CBC WITH AUTO DIFFERENTIAL Routine 08/02/2024 C-REACTIVE PROTEIN, PLASMA Routine 08/02/2024 UREA NITROGEN, PLASMA Routine 08/02/2024 CREATININE, PLASMA Routine 08/02/2024 HEPATIC FUNCTION PANEL Routine 08/02/2024 POCT GLUCOSE METER UNSOLICITED RESULTS Routine 07/28/2024 11:38 AM EDT INSERT PICC LINE Routine 07/28/2024 10:3 1 AM EDT POCT GLUCOSE METER UNSOLICITED RESULTS Routine 07/28/2024 8:31 AM EDT POCT GLUCOSE METER UNSOLICITED RESULTS Routine 07/28/2024 7:31 AM EDT CREATINE KINASE, TOTAL, PLASMA Routine 07/28/2024 3:55 AM EDT BASIC METABOLIC PANEL, PLASMA Routine 07/28/2024 3:55 AM EDT CBC WITH AUTO DIFFERENTIAL Routine 07/28/2024 3:55 AM EDT POCT GLUCOSE [...] LEFT Routine 07/26/2024 9:16 AM EDT BODY FLUID, CYTOSPIN, PATHOLOGIST INTERPRETATION Routine 07/26/2024 7:56 AM EDT BODY FLUID CELL COUNT W/ MANUAL DIFFERENTIAL Routine 07/26/2024 7:56 AM EDT VANCOMYCIN, PEAK, PLASMA Timed 07/26/2024 6:38 AM EDT BASIC METABOLIC PANEL, PLASMA Routine 07/26/2024 3:26 AM EDT CBC WITH AUTO DIFFERENTIAL Routine 07/26/2024 3:26 AM EDT VANCOMYCIN, TROUGH, [...] DIFFERENTIAL Routine 07/24/2024 3 :39 AM EDT VANCOMYCIN, TROUGH, PLASMA Timed 07/24/2024 3:39 AM EDT BASIC METABOLIC PANEL, PLASMA Routine 07/24/2024 3:39 AM EDT CBC WITH AUTO DIFFERENTIAL Routine 07/24/2024 3:39 AM EDT POCT GLUCOSE METER UNSOLICITED RESULTS Routine 07/23/2024 7:44 PM EDT POCT GLUCOSE METER UNSOLICITED RESULTS Routine 07/23/2024 4:36 PM EDT IA NEG PRESSURE WOUND THERAPY NON DME >50 SQ CM Routine 07/23/2024 12:41 PM EDT POCT GLUCOSE METER UNSOLICITED RESULTS Routine 07/23/2024 11:47 AM EDT POCT GLUCOSE METER UNSOLICITED RESULTS Routine 07/23/2024 8:44 AM EDT POCT GLUCOSE METER UNSOLICITED RESULTS Routine 07/22/2024 9:35 PM EDT CHARLEEN AURIS SURVEILLANCE BY PCR Routine 07/22/2024 9:10 PM EDT POCT GLUCOSE METER UNSOLICITED RESULTS Routine 07/22/2024 8:21 PM EDT WOUND OSTOMY EVAL AND TREAT Routine 07/22/2024 4:49 PM EDT MULTI DRUG RESISTANCE TEST Routine 07/22/2024 4:30 PM EDT BLOOD CULTURE (AEROBIC/ANAEROBIC SET) STAT 07/22/2024 3:23 PM EDT BLOOD CULTURE (AEROBIC/ANAEROBIC SET) STAT 07/22/2024 1:00 PM EDT HEMOGLOBIN A1C Add-On 07/22/2024 12:25 PM EDT SEDIMENTATION RATE, AUTOMATED STAT 07/22/2024 12:25 PM EDT C-REACTIVE PROTEIN, PLASMA STAT 07/22/2024 12:25 PM EDT CBC WITH AUTO DIFFERENTIAL STAT 07/22/2024 12:25 PM EDT BASIC METABOLIC PANEL, PLASMA STAT 07/22/2024 12:25 PM EDT CBC WITH AUTO DIFFERENTIAL Routine 07/22/2024 8:57 [...] and neck (CMS/HCC) Dysphagia, oropharyngeal phase CT CHEST W IV CONTRAST Routine 2:39 PM EDT Squamous cell carcinoma, 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, face and neck (CMS/HCC) Dysphagia, oropharyngeal phase LIMITED ORAL EVALUATION - PROBLEM FOCUSED Routine 07/07/2024 4:00 PM EDT Edentulism XR OUTSIDE IMAGES 07/05/2024 11: 54 AM EDT XR OUTSIDE IMAGES 06/30/2024 4:[address] OUTSIDE IMAGES 06/29/2024 4:[address] MSK OUTSIDE IMAGES 06/29/2024 1:[address] NEURO OUTSIDE IMAGES 06/30/19 1:00 PM EDT HEPATITIS C ANTIBODY - ED W/REFLEX TO HCV QUANT PCR STAT 01/16/2024 1:23 AM EDT ED HIV 1/2 ANTIBODY/ANTIGEN SCREEN WITH REFLEX TO HIV I/II DIFFERENTIATION STAT 01/16/2024 1:23 AM EDT from Last 3 Months or Most Recently Relevant to Health Maintenance Results * PICC Removal (Clinic-Performed) (09/02/2024 9:05 [...] take BP meds today. Patient ambulated independently. Result [facility] Abel Johnson MD IN CLINIC/BEDSIDE O RDERABLES Final Result * Creatinine, Plasma (08/30/2024) Only the most recent of4 resultswithin the time period is included. Pathologist [facility] External Creatinine Blood 0.71 mg/dL Blood Venous blood specimen / Unknown 08/30/2024 Result [facility] Provider LAB BLOOD ORDERABLES Neda l Result * CBC and Differential (08/30/2024) Only the most recent of10 resultswithin the time period is included. Pathologist [facility] External WBC 6.2 4.5 - 13.0 10e3/uL External Red Blood Cell (RBC) 4.26 External Hemoglobin (Hgb) 12.50 External Hematocrit (Hct) 36.7 External Platelet Count (Plt) 260 External Neutrophil Abs 4.44 External Lymphocyte-Absol levelock 1.08 External Monocyte Absolute 0.35 External Eos-Absolute 0.22 0.00 - 0.50 x1000/uL Blood Venous blood specimen / Unknown 08/30/2024 Result [facility] Provider LAB BLOOD ORDERABLES Neda l Result * C-Reactive Protein, Plasma (08/30/2024) Only the most recent of6 resultswithin the time period is included. Pathologist [facility] External C-Reactive Protein(CRP) 11.6 <5.0 mg/L Blood Venous blood specimen / Unknown 08/30/2024 Result [facility] Provider MD LAB BLOOD ORDERABLES Neda l Result * Urea Nitrogen, Plasma (08/30/2024) Only the most recent of4 resultswithin the time period is included. External BUN 15 Blood Venous blood specimen / Unknown 08/30/2024 Result [facility] MD LAB BLOOD ORDERABLES Neda l Result * CK (08/30/2024) Only the most recent of5 resultswithin the time period is included. External Creatine Kinase 63 39 - 308 U/L Blood Venous blood specimen / Unknown 08/30/2024 Result [facility] MD LAB BLOOD ORDERABLES Neda l Result * Hepatic Function Panel (08/30/2024) Only the most recent of4 resultswithin the time period is included. External Alkaline Phosphatase 78 External Bilirubin Total 0.9 mg/dL External ALT (SGPT) 14 External AST (SGOT) 18 Blood Venous blood specimen / Unknown 08/30/2024 Result [facility] MD LAB BLOOD ORDERABLES Neda l Result * Comprehensive Metabolic Panel, Plasma (08/23/2024) Only the most recent of2 resultswithin the time period is included. External BUN 20 External Creatinine Blood 0.95 mg/dL External AST (SGOT) 19 External ALT (SGPT) 16 External Alkaline Phosphatase 77 External Bilirubin Total 0.9 mg/dL Blood Venous blood specimen / Unknown 08/23/2024 Result [facility] MD LAB BLOOD ORDERABLES Neda l Result * PET/CT FDG Skull Base To Mid [...] scanner: Siemens Biograph 40 mCT. PET/CT acquisition: Jieiog-pi-ucy-thighs, plus magnification (zoomed) neck. Standardized uptake value (SUV): Corrected for body weight only. CT: Low-dose, gzz-qhecdp-zrlz, without intravenous contrast. TOTAL DLP (Dose Length [...] scanner: Siemens Biograph 40 mCT. PET/CT acquisition: Corcgs-oa-wzo-thighs, plus magnification (zoomed)neck. Standardized uptake value (SUV): Corrected for body weight only. CT: Low-dose, zmr-pvuezj-tdnq, without intravenous contrast. TOTAL DLP (Dose Length [...] activity is unchanged from prior PET/CT dated 11/07/2023nd of uncertain significance. Postoperative changes are seen [...] Eldridge MD IMG NM PROCEDURES Final Result * (ABNORMAL) POCT glucose meter (07/28/2024 11:38 AM EDT) Only the most recent of24 resultswithin the time period is included. POCT Glucose 123(H) 74 - 99 mg/dL [...] Comment 07/28/2024 11:42 AM EDT [facility] Corporate Law Assistant ID Gaye Hodges 07/28/2024 11:42 AM EDT [facility] Device ID [id number] 07/28/2024 11:42 AM EDT [facility] Specimen Type POC Capillary 07/28/2024 11:42 AM EDT [facility] Blood Capillary blood specimen / Unknown 07/28/2024 11:38 AM EDT 07/28/2024 11:42 AM EDT us Jennifer Vallejo MD LAB POINT OF CAR E TEST DOCKED DEVICE UNSOLICITED RESULTS Final Result [facility] [address] [place] [address] * PICC SINGLE LUMEN (SMARTFORM LINK) (07/28/2024 10:31 AM EDT) Narrative Garcia Lan RN - 07/28/2024 10:31 AM EDT Garcia Lan RN 07/28/2024 10:34 AM Insert PICC line Date/Time: 07/28/2024 10:31 AM Performed by: Garcia Lan RN Authorized by: Jennifer Vallejo MD [place] Protocol: Written consent obtained?: Yes Risks and [...] infection Patient position: Supine Catheter Lot #: [id number] Catheter 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 us Jennifer Vallejo MD IV THERAPY ORDERABLES Fi nal Result * (ABNORMAL) Creatine Kinase (CK), Total (07/28/2024 3:55 AM EDT) Creatine Kinase, Plasma 24(L) 49 - 320 U/L 07/28/2024 4:39 AM EDT [facility] Blood Venous blood specimen / Unknown Venipuncture / Unknown 07/28/2024 3:55 AM EDT 07/28/2024 4:06 AM EDT us Jennifer Vallejo MD LAB BLOOD ORDERABLES Fin al Result [facility] [address] [place] [address] * Basic metabolic panel (07/28/2024 3:55 AM EDT) Only the most recent of4 resultswithin the time period is included. Glucose, Plasma 89 74 - 99 mg/dL 07/28/2024 4:39 AM EDT [facility] BUN, Plasma 9 7 - 21 mg/dL 07/28/2024 4:39 AM EDT [facility] Creatinine, Plasma 0.71 0.70 - 1.20 mg/dL 07/28/2024 4:39 AM EDT [facility] BUN/Creatinine Ratio 13 07/28/2024 4:39 AM EDT [facility] Sodium, Plasma 137 136 - 145 mmol/L 07/28/2024 4:39 AM EDT [facility] Potassium, Plasma 3.8 3.6 - 4.9 mmol/L 07/28/2024 4:39 AM EDT [facility] Chloride, Plasma 102 97 - 107 mmol/L 07/28/2024 4:39 AM EDT [facility] CO2, Plasma 26 22 - 29 mmol/L 07/28/2024 4:39 AM EDT [facility] Anion Gap 9 6 - 16 mmol/L 07/28/2024 4:39 AM EDT [facility] Total Calcium, Plasma 9.7 8.9 - 10.2 mg/dL 07/28/2024 4:39 AM EDT [facility] eGFRcr 111.8 mL/min/1.7 3m*2 07/28/2024 4:39 AM EDT [facility] Comment:Reported eGFRcr in m L/min/1.73m2 is based the CKD-EPI 2020 equation that does not use a race coefficient. Blood Venous blood specimen / Unknown Venipuncture / Unknown 07/28/2024 3:55 AM EDT 07/28/2024 4:06 AM EDT us Jennifer Vallejo MD LAB BLOOD ORDERABLES Fin al Result [facility] [address] [place] [address] * ECHO, ADULT TRANSTHORACIC COMPLETE (07/26/2024 3:28 PM EDT) BSA 2.08 m2 JHON ISCV Height 177.8 JHON ISCV Weight 90.3 JHON ISCV PA acc time 100 msec JHON ISCV mean PAP 34 mmHg JHON ISCV PA IA(ACCEL) 36.2 mmHg JHON ISCV PA acc slope [...] ISCV LV MASS(C)D 146 g JHON ISCV [facility] CV ECHO LV MASS INDEX 70 g/m2 [...] is no recent study available for direct byde-hd-rszf comparison. Left Ventricle The left ventricle is [...] is no recent study available for direct pdgc-hf-kiql comparison. us Reji Daly MD CV ECHO PROCEDURES Final Result * Fungal Culture, Sterile Body Fluid (NOT CSF) and JESUS (07/26/2024 9:25 AM EDT) Culture No Fungal Growth at 3 Weeks 08/17/2024 7:00 AM EDT [facility] JESUS No fungal elements seen 08/17/2024 7:00 AM EDT [facility] Joint Fluid Joint fluid specimen / Unknown Non-blood Collection / Unknown 07/26/2024 9:25 AM EDT 07/26/2024 9:25 AM EDT us Reji Daly MD LAB MICROBIOLOGY - GENERAL JIMENEZ VERMA Final Result Performing Organization Address [facility] Co de Phone Number [facility] [address] [place] [address] * Body Fluid Culture and Gram Stain (07/26/2024 9:25 AM EDT) Culture No growth at day 4 2024 9:13 AM EDT [facility] Gram Stain Result Rare Polymorphonuclear leukocytes 07/29/2024 9:13 AM EDT [facility] Gram Stain Result No organisms seen 07/29/2024 9:13 AM EDT [facility] Joint Fluid Joint fluid specimen / Unknown Non-blood Collection / Unknown 07/26/2024 9:25 AM EDT 07/26/2024 9:25 AM EDT us Reji Daly MD LAB MICROBIOLOGY - GENERAL JIMENEZ VERMA Final Result Performing Organization Address [facility] Co de Phone Number [facility] [address] [place] [address] * CT Guided Inj Asp Intermediate Joint [...] CT table in the supine position, and programmer developer CT images were obtained to evaluate for [...] procedure well, and was transferred to the rehabilitation institute in good condition. Total DLP (Dose-Length Product): [...] Jennifer Clemens MD on 07/26/2024 9:31 AM Reji Daly MD [facility] [place]EDURES Final Result * (ABNORMAL) Body Fluid Cell Count w/ Diff (07/26/2024 7:56 AM EDT) Color, Body fluid Red LAB HEMATOLOGY METHOD 07/26/2024 3:16 PM EDT [facility] Appearance, Body fluid Cloudy(A) LAB HEMATOLOGY METHOD 07/26/2024 3:16 PM EDT [facility] Volume, Body fluid 0.2 cc LAB HEMATOLOGY METHOD 07/26/2024 3:16 PM EDT [facility] Fluid Container Specimen received in miscellaneous container LAB HEMATOLOGY METHOD 07/26/2024 3:16 PM EDT [facility] Red Blood Cell Count, Body fluid 36,000 uL LAB HEMATOLOGY METHOD 07/26/2024 3:16 PM EDT [facility] Total Nucleated Cell Count, Body fluid 79 uL LAB HEMATOLOGY METHOD 07/26/2024 3:16 PM EDT [facility] Neutrophils %, Body fluid 88 % LAB HEMATOLOGY METHOD 07/26/2024 3:16 PM EDT [facility] Lymphocytes %, Body fluid 5 % LAB HEMATOLOGY METHOD 07/26/2024 3:16 PM EDT [facility] Monocytes/Macr ophages %, Body fluid 5 % LAB HEMATOLOGY METHOD 07/26/2024 3:16 PM EDT [facility] Eosinophils %, Body fluid 2 % LAB HEMATOLOGY METHOD 07/26/2024 3:16 PM EDT [facility] Lining/Mesothe lial Cells %, Body fluid 0 % LAB HEMATOLOGY METHOD 07/26/2024 3:16 PM EDT [facility] Neutrophils Absolute (PMN), Body fluid 70 uL LAB HEMATOLOGY METHOD 07/26/2024 3:16 PM EDT [facility] Lymphocytes Absolute, Body fluid 4 uL LAB HEMATOLOGY METHOD 07/26/2024 3:16 PM EDT [facility] Monocytes/Macr ophages Absolute, Body fluid 4 uL LAB HEMATOLOGY METHOD 07/26/2024 3:16 PM EDT [facility] Eosinophils Absolute, Body fluid 2 uL LAB HEMATOLOGY METHOD 07/26/2024 3:16 PM EDT [facility] Basophils Absolute, Body fluid 0 uL LAB HEMATOLOGY METHOD 07/26/2024 3:16 PM EDT [facility] Lining/Mesothe lial Cells Absolute, Body fluid 0 uL LAB HEMATOLOGY METHOD 07/26/2024 3:16 PM EDT [facility] Comment, Body fluid None LAB HEMATOLOGY METHOD 07/26/2024 3:16 PM EDT [facility] Basophils %, Body fluid 0 % LAB HEMATOLOGY METHOD 07/26/2024 3:16 PM EDT [facility] Joint Fluid Drainage fluid specimen / Unknown 07/26/2024 7:56 AM EDT 07/26/2024 9:18 AM EDT Reji Daly MD LAB BODY FLUIDS AND STOOLS ORDERABLES NO SPECIMEN TYPE/SOURCE Final Result Performing Organization Address [facility] Co de Phone Number [facility] [address] [place] [address] * Body fluid, cytospin, pathologist interpretation (07/26/2024 7:56 AM EDT) Specimen Type Joint Fluid LAB HEMATOLOGY METHOD 07/27/2024 5:59 PM EDT [facility] Specimen Source, Body Fluid Drainage Fluid LAB HEMATOLOGY METHOD 07/27/2024 5:59 PM EDT [facility] Clinical Diagnosis, Body Fluid Concern for left sternoclavicular septic arthritis and adjacent osteomyelitis. Recent MRSA bacteremia. Hx of SCC of neck s/p segmental mandibulectomy, left radical neck dissection LAB HEMATOLOGY METHOD 07/27/2024 5:59 PM EDT [facility] Interpretation , Body Fluid Bloody fluid with no evidence of malignancy. A resident was involved in the service. I attest I examined the relevant preparations for the specimens and confirmed the diagnosis or interpretation. 07/27/2024 5:59 PM EDT [facility] Pathologist Signature, Body Fluid 07/27/2024 5:59 PM EDT [facility] Comment:Reviewed by: Evangelista Sosa MD LAB CP ASR DISCLAIMER Yes 07/27/2024 5:59 PM EDT [facility] Joint Fluid Drainage fluid specimen / Unknown 07/26/2024 7:56 AM EDT 07/26/2024 9:18 AM EDT Reji Daly MD LAB BODY FLUIDS AND STOOLS ORDE RABLES Final Result Performing Organization Address [facility]/ZIP Co de Phone Number [facility] [address] [place] [address] * Vancomycin, Peak, Plasma Please draw ~2 hours after 0400 dose of vancomycin finishes infusing on Wednesday 07/26. Consider obtaining level via peripheral stick. If peripheral stick is not feasible, pleaseensure that line is flushed well prior to drawi... (07/26/2024 6:38 AM EDT) Only the most recent of2 resultswithin the time period is included. Vancomycin, Peak, Plasma 24.3 20.0 - 40.0 ug/mL 07/26/2024 7:17 AM EDT [facility] Blood Venous blood specimen / Unknown Venipuncture / Unknown 07/26/2024 6:38 AM EDT 07/26/2024 6:43 AM EDT Narrative [facility] - 07/26/2024 7:17 AM EDT Therapeutic Peak level: 20-40ug/mL Supra-therapeutic Peak level: >40 ug/mL us Reji Daly MD LAB BLOOD ORDERABLES Final Resu lt [facility] [address] [place] [address] * Vancomycin, Trough, Plasma Please draw ~30 minutes prior to dose due at 0400 on Wednesday 07/26. Please do NOT hold dose awaiting level to return.Consider obtaining level via peripheral stick. If peripheral stick is not feasible, please ensure that li... (07/26/2024 3:25 AM EDT) Only the most recent of2 resultswithin the time period is included. Vancomycin, Trough, Plasma 17.5 10.0 - 20.0 ug/mL 07/26/2024 4:10 AM EDT [facility] Blood Venous blood specimen / Unknown Venipuncture / Unknown 07/26/2024 3:25 AM EDT 07/26/2024 3:32 AM EDT Narrative [facility] - 07/26/2024 4:10 AM EDT Therapeutic Trough level: 10-20ug/mL Supra-therapeutic Trough level: >20 ug/mL us Reji Daly MD LAB BLOOD ORDERABLES Final Resu lt [facility] [address] [place] [address] * Morphology (07/24/2024 3:39 AM EDT) RBC Morphology RBC Morphology Consistent with Indices and RDW LAB HEMATOLOGY METHOD 07/24/2024 5:27 AM EDT [facility] Platelet Estimate Platelet smear estimate consistent with automated count LAB HEMATOLOGY METHOD 07/24/2024 5:27 AM EDT [facility] Blood Venous blood specimen / Unknown Venipuncture / Unknown 07/24/2024 3:39 AM EDT 07/24/2024 3:44 AM EDT us Reji Daly MD LAB BLOOD ORDERABLES Final Resu lt Performing Organization Address City/[facility]/ZIP Co de Phone Number [facility] [address] [place] [address] * (ABNORMAL) Manual Differential (07/24/2024 3:39 AM EDT) Blasts % 0 % LAB HEMATOLOGY METHOD 07/24/2024 5:27 AM EDT [facility] Promyelocytes % 0 % LAB HEMATOLOGY METHOD 07/24/2024 5:27 AM EDT [facility] Myelocytes % 0 % LAB HEMATOLOGY METHOD 07/24/2024 5:27 AM EDT [facility] Metamyelocytes % 0 % LAB HEMATOLOGY METHOD 07/24/2024 5:27 AM EDT [facility] Neutrophils % 58 % LAB HEMATOLOGY METHOD 07/24/2024 5:27 AM EDT [facility] Lymphocytes % 20 % LAB HEMATOLOGY METHOD 07/24/2024 5:27 AM EDT [facility] Reactive Lymphocytes % 1 % LAB HEMATOLOGY METHOD 07/24/2024 5:27 AM EDT [facility] Monocytes % 5 % LAB HEMATOLOGY METHOD 07/24/2024 5:27 AM EDT [facility] Eosinophils % 14 % LAB HEMATOLOGY METHOD 07/24/2024 5:27 AM EDT [facility] Basophils % 2 % LAB HEMATOLOGY METHOD 07/24/2024 5:27 AM EDT [facility] Blasts Absolute 0.00 10*3/UL LAB HEMATOLOGY METHOD 07/24/2024 5:27 AM EDT [facility] Promyelocytes Absolute 0.00 10*3/uL LAB HEMATOLOGY METHOD 07/24/2024 5:27 AM EDT [facility] Myelocytes Absolute 0.00 10*3/uL LAB HEMATOLOGY METHOD 07/24/2024 5:27 AM EDT [facility] Metamyelocytes Absolute 0.00 10*3/uL LAB HEMATOLOGY METHOD 07/24/2024 5:27 AM EDT [facility] Neutrophils Absolute 2.04 1.60 - 6.10 10*3/uL LAB HEMATOLOGY METHOD 07/24/2024 5:27 AM EDT [facility] Lymphocytes Absolute 0.70(L) 1.20 - 3.90 10*3/uL LAB HEMATOLOGY METHOD 07/24/2024 5:27 AM EDT [facility] Reactive Lymphocytes Absolute 0.04 10*3/uL LAB HEMATOLOGY METHOD 07/24/2024 5:27 AM EDT [facility] Monocytes Absolute 0.18(L) 0.30 - 0.90 10*3/uL LAB HEMATOLOGY METHOD 07/24/2024 5:27 AM EDT [facility] Eosinophils Absolute 0.49 0.00 - 0.50 10*3/uL LAB HEMATOLOGY METHOD 07/24/2024 5:27 AM EDT [facility] Basophils Absolute 0.07 0.00 - 0.10 10*3/uL LAB HEMATOLOGY METHOD 07/24/2024 5:27 AM EDT [facility] Blood Venous blood specimen / Unknown Venipuncture / Unknown 07/24/2024 3:39 AM EDT 07/24/2024 3:44 AM EDT us Reji Daly MD LAB BLOOD ORDERABLES Final Resu lt [facility] [address] [place] [address] * IA NEG PRESSURE WOUND THERAPY NON DME >50 [...] IN CLINIC/BEDSIDE ORDER WHITNEY Final Result * Charleen auris Surveillance by PCR (07/22/2024 9:10 PM EDT) Charleen auris PCR Result Not Detected Not Detected 07/25/2024 8:19 AM EDT [facility] Swab (Axilla and Groin) Non-blood Collection / Unknown 07/22/2024 9:10 PM EDT 07/23/2024 12:28 AM EDT Narrative [facility] - 07/25/2024 8:19 AM EDT This PCR assay was developed and its performance characteristics determined by [facility] as appropriate for clinical purposes. This assay has not been cleared or approved by the FDA, but is performed in a CLIA regulated laboratory that is qualified to perform high-complexity testing. us Reji Daly MD LAB MICROBIOLOGY - GENERAL JIMENEZ VERMA Final Result [facility] [address] [place] [address] * Multi Drug Resistance Test (07/22/2024 4:30 PM EDT) Culture No growth at day 1 07/23/2024 1:23 PM EDT [facility] Swab (Nares and Jannette Rectal) Non-blood Collection / Unknown 07/22/2024 4:30 PM EDT 07/22/2024 4:52 PM EDT us Reji Daly MD LAB MICROBIOLOGY - GENERAL ORDE RABLES Final Result Performing Organization Address City/[facility]/ZIP Co de Phone Number [facility] [address] [place] [address] * Blood Culture (Aerobic/Anaerobet Set) (07/22/2024 3:23 PM EDT) Only the most recent of2 resultswithin the time period is included. Culture No growth at day 5 07/27/2024 4:01 PM EDT [facility] Blood Structure of right hand / Unknown Venipuncture / Unknown 07/22/2024 3:23 PM EDT 07/22/2024 3:48 PM EDT Narrative [facility] - 07/27/2024 4:01 PM EDT Low blood volume submitted, results may be compromised us Rashad Avalos MD LAB MICROBIOLOGY - GENERAL ORDERABLES Final Result Performing Organization Address [facility] [place] [address] * (ABNORMAL) Sed rate, automated (07/22/2024 12:25 PM EDT) Sedimentation Rate 86(H) <20 mm/hr 2024 1:19 PM EDT [facility] Blood Venous blood specimen / Unknown Venipuncture / Unknown 07/22/2024 12:25 PM EDT 07/22/2024 12:27 PM EDT us Rashad Avalos MD LAB BLOOD ORDERABLES Final Result Performing Organization Address City/[facility]/ZIP Co de Phone Number [facility] [address] [place] [address] * Hemoglobin A1c (07/22/2024 12:25 PM EDT) Hemoglobin A1c 5.3 <5.7 % 07/22/2024 7:12 PM EDT [facility] Blood Venous blood specimen / Unknown Venipuncture / Unknown 07/22/2024 12:25 PM EDT 07/22/2024 12:27 PM EDT Narrative [facility] - 07/22/2024 7:12 PM EDT [facility] Interpretive Data: Diagnosis of Diabetes: Diabetic > or = 6.5% Pre-diabetic 5.7 to 6.4% Non-diabetic < or = 5.6% Glycemic Targets for Type I and Type II Diabetics: Non- Adults <7.0% Adults <6.0% Children and Adolescents <7.5% Source: [place] [employer]. Standards of medical care in diabetes,2017. Diabetes Care.2017:40 (suppl 1):S1-S135. us Reji Daly MD LAB BLOOD ORDERABLES Final Resu lt Performing Organization Address City/[facility]/ZIP Co de Phone Number [facility] [address] [place] [address] * Thyroid Stimulating Hormone, Plasma (07/22/2024 8:57 AM EDT) Thyroid Stimulating Hormone, Plasma 2.46 0.40 - 4.20 uIU/mL 07/22/2024 9:45 AM EDT [facility] Blood Venous blood specimen / Unknown Venipuncture / Unknown 07/22/2024 8:57 AM EDT 07/22/2024 9:05 AM EDT us Willie Penaloza MD LAB BLOOD ORDERABLES Final R esult Performing Organization Address City/[facility]/[place] [address] * CT Chest w IV Contrast (07/21/2024 [...] Elise Adams MD on 07/21/2024 3:14 PM us Willie Penaloza MD IMG CT PROCEDURES Final Resu lt * CT Soft Tissue Neck w IV [...] Jamir Sow MD on 07/28/2024 11:12 AM Willie Penaloza MD IMG CT PROCEDURES Final Resu lt * XR OUTSIDE IMAGES (07/05/2024 11:54 AM EDT) Only the most recent of2 resultswithin the time period is included. Anatomical Region Laterality Modality Radiographic Rebecca ging 07/05/2024 11:5 4 AM EDT Carson Ibrahim MD IMG XR PROCEDURES Final Resu lt * CT OUTSIDE IMAGES (06/29/2024 4:30 PM EDT) Anatomical Region Laterality Modality Computed Tomogra phy 06/29/2024 4:30 PM EDT us Mara N Schofield DO IMG CT PROCEDURES Final Result * CT MSK OUTSIDE IMAGES (06/29/2024 1:04 PM EDT) Anatomical Region Laterality Modality Computed Tomogra phy 06/29/2024 1:04 PM EDT us External Provider IMG CT PROCEDURES Final Result * CT NEURO OUTSIDE IMAGES (06/29/2024 1:00 PM EDT) Anatomical Region Laterality Modality Computed Tomogra phy 06/29/2024 1:00 PM EDT us External Provider IMG CT PROCEDURES Final Result * ED HIV 1/2 Antibody/Antigen Screen w/Reflex to HIV 1/2 Differentiation (01/16/2024 1:23 AM EDT) Pathologist [facility] HIV 1 & 2 Antibody/Antigen Screen Non Reactive Non Reactive 01/16/2024 2:23 AM EDT [facility] Comment:Screening for HIV 1 & 2 antibodies, and P24 antigen is NONREACTIVE. No confirmatory testing is required. Blood Venous blood specimen / Unknown Venipuncture / Unknown 01/16/2024 1:23 AM EDT 01/16/2024 1:42 AM EDT us Leon Bob MD LAB BLOOD ORDERABLES Final Re sult [facility] [address] [place] [address] * Hepatitis C Antibody - ED (01/16/2024 1:23 AM EDT) Hepatitis C Antibody Negative Negative 01/16/2024 2:23 AM EDT [facility] Blood Venous blood specimen / Unknown Venipuncture / Unknown 01/16/2024 1:23 AM EDT 01/16/2024 1:42 AM EDT us Leon Bob MD LAB BLOOD ORDERABLES Final Re sult [facility] [address] [place] [address] from Last 3 Months or Most Recently Relevant to Health Maintenance Additional Health Concerns Infection Onset Date Last Indicated 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 02/19/2024 Insurance [employer] [facility] MEDICAID [facility] MEDICAID DENTAL Advance Directives * Full Code (Latest Code Status on File) Date Activated Date Inactivated Comments 07/22/2024 3:27 PM 07/28/2024 6:19 PM Question Answer Comments I have reviewed the capacity from the link above and, if needed, have updated to appropriate status: Yes * Full Code Date Activated Date Inactivated Comments 02/17/2024 12:25 AM 02/24/2024 8:16 PM Question Answer Comments Patient has decision-making capacity? Yes * Full Code Date Activated Date Inactivated Comments 01/06/2024 8:48 PM 01/15/2024 4:11 PM Question Answer Comments Patient has decision-making capacity? Yes Care Teams Charge Nurse Relationship Specialty Start Date End Date Carson Ibrahim MD [address] [facility] [address] [place] [address] PCP - General 11/20/23 Imer Sevilla MD [address] [facility] [id number] [place] [id number] Consulting Physician Radiation Oncology 02/27/24 Willie Penaloza MD [address] [facility] [address] [facility] [address] [place] [phone] Consulting Physician Medical Oncology 04/21/24 Amelia Freeman, RN Registered Nurse Hematology and Oncology 05/13/24
[2024-09-15 11:27] VITALS: BP 119/74; PULSE 54; RESP 18; O2SAT 100; BMI 27.2
--- NOTE | 2024-09-15 11:33 | EXP.PAIN.OV ---
HPI Data of Consult Patient: new to practice Consult date: 09/15/24 Requesting Physician: Mara Blandon APRN Primary Care Provider: Carson Ibrahim MD Reason for consult: Low back pain History of present illness: Mr. Daniels is a 49 year old male who presents today as a new patient. Patient rates his pain today as a 8 out of 10. Patient states all of his spine is related to his low back on the right side. He states this started a few months ago from lifting a hitch and it is continued since. Patient has tried oral medications, heat and ice and topicals such as Aspercreme with no additional improvement. Patient does state that he does have oxycodone for his ongoing head and neck cancer however it is not touching the low back pain. Patient states that it is a constant throbbing sensation and denies any radiating symptoms into his legs. Patient also denies any symptoms on the left side. Patient states that today is a little bit better however last week he had lifted his granddaughter and seem like it just was much more extreme. Patient denies any prior surgery or injection history. He is interested in any options we may be able to provide. His Sebastien has been reviewed and is appropriate. Pain at rest (0-10 scale): 8 Has patient had previous pain injection?: No Conservative treatment options previously tried: Home exercise plan (Longer than 12 weeks) cc:: CC: Mara Blandon APRN [facility] Disclaimer: The information contained in this section may have been updated after the patient was seen, as this information can be updated by other users. 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 Hypertension Hyperlipidemia Type 2 diabetes mellitus Open wound of right lower leg Kidney stones Hernia, umbilical Surgical History Status post skin graft History of radical dissection of left side of neck S/P partial glossectomy Status post tracheostomy History of submandibular gland removal History of ureter stent Family History Other Coronary artery disease Social History (Updated 09/15/24 @ 11:29 by Dahiana Cesar RN) Smoking Status: Never smoker second hand exposure: No alcohol intake: never substance use type: denies use current occupational status: employed Travel in the last 8 weeks?: None household members: spouse housing: house 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 current occupational exposures/hazards: No caffeine: Yes Review of Systems Review of Systems Review of systems:: pertinent systems reviewed and negative unless documented below Review of systems (narrative): Review of Systems: General: No recent weight changes, no fever, no sleep disturbances Respiratory: No cough, no shortness of air, no recurring pulmonary infections Cardiovascular/peripheral vascular: No chest pain, no palpitations, no edema, no shortness of breath Gastrointestinal: No new onset incontinence, normal bowel movements reported Genitourinary: No new onset incontinence Musculoskeletal: Low back pain Psychiatric: [Normal mood/affect] Neurological: [Denies weakness in extremities], [denies balance issues] Meds Home Medications and Allergies Home Medications ?Medication ?Instructions ?Recorded ?Confirmed ?Type famotidine 20 mg tablet 20 mg PO HSP PRN Heartburn 07/02/24 08/17/24 History oxycodone 10 mg tablet 10 mg PO Q4HP PRN Severe Pain 07/02/24 08/17/24 History (Scale Score 7-10) polyethylene glycol 3350 17 17 g PO DAILY 07/02/24 08/17/24 History gram/dose oral powder trazodone 100 mg tablet 100 mg PO HS 07/02/24 08/17/24 History cyclobenzaprine 10 mg tablet 10 mg PO TIDP PRN Back Pain #30 07/05/24 08/17/24 Rx tabs metronidazole 500 mg tablet 500 mg PO Q8H #30 tabs 07/05/24 08/17/24 Rx vancomycin 1.75 gram/350 mL in 1.75 g (350 mL) IV Q12H #1 mL 07/05/24 08/17/24 Rx diluent combination IV piggyback daptomycin 500 mg intravenous 500 mg IV DAILY 08/17/24 08/17/24 History solution metoprolol succinate 25 mg 25 mg PO DAILY 08/17/24 08/17/24 History tablet,extended release 24 hr New Prescriptions to Start Prescriptions: Allergies Allergy/AdvReac Type Severity Reaction Status Date / Time Penicillins Allergy Unknown Verified 06/29/24 11:47 allergy reaction Objective Narrative: Physical Exam: General: Alert and oriented x3, no acute distress, pleasant and cooperative Lungs: Respirations even and unlabored, symmetrical chest expansion Eyes: PERRL Musculoskeletal: Flexion and extension of lumbar [spine] somewhat guarded secondary to pain, [antalgic gait noted] positive Kemps test Neurological: Speech clear, no gross sensory deficit Additional findings Additional findings: FINDINGS: CT LUMBAR SPINE TECHNIQUE: Thin section noncontrast axial CT with sagittal reconstructions No fracture is present. Alignment is normal. T12-L1: No canal stenosis. L1-L2: Mild annular disc bulge without canal stenosis. Mild neuroforaminal narrowing. L2-L3: Unremarkable. L3-L4: Mild annular disc bulge. Moderate facet arthropathy. Borderline central canal stenosis and moderate bilateral neuroforaminal narrowing. L4-L5: Moderate annular disc bulge. Advanced facet overgrowth. Severe central canal stenosis and severe neuroforaminal narrowing. L5-S1: Moderate annular disc bulge, partially calcified. Mild central canal stenosis and severe bilateral neuroforaminal narrowing. IMPRESSION: No fracture. Degenerative changes with canal stenosis and neuroforaminal narrowing at L4-5 and L5-S1. This study was performed using automated techniques to achieve radiation exposure as low as reasonably achievable Reviewed, Interpreted and Dictated by Lynn Cha MD Transcribed by Jessica Wharton Authenticated and [facility] Assessment and Plan *Assessment and plan (1) Lumbar facet arthropathy: Status: Acute Category: Medical Code(s): M47.816 - Spondylosis without myelopathy or radiculopathy, lumbar region (2) Lumbar degenerative disc disease: Status: Acute Category: Medical Code(s): M51.369 - Other intervertebral disc degeneration, lumbar region without mention of lumbar back pain or lower extremity pain (3) Low back pain: Status: Acute Category: Medical Code(s): M54.50 - Low back pain, unspecified Plan Patient is experiencing significant pain in his low back that is worse with bending, twisting or lifting. Patient did have limited range of motion of his lumbar spine with a positive right Kemps test during today's visit. I did discuss with the patient that I do believe he would benefit from a lumbar medial branch block. Risk and benefits were discussed with the patient and he would like to proceed forward with this plan of care. Patient has tried and failed conservative therapy including oral medications, heat and ice, topicals, at home stretching exercise for longer than 12 weeks. Patient has had back pain for the last 3 months related to a lifting injury. Patient was counseled that if he does get significant relief with his first lumbar medial branch block that we will plan on repeating it with the plan to progress forward to a lumbar RFA at a later date. Patient agrees with this plan of care. Patient will be scheduled for his first diagnostic lumbar medial branch block bilaterally L2-L3 and L3-L4 under fluoroscopy. I will also order the patient compounded cream. Patient is not a candidate currently for therapy due to ongoing comorbidities. Patient has been instructed to contact the clinic with any concerns before the next appointment. Dr. Dasilva has reviewed this note and agrees with this plan of care. This note was dictated using voice recognition software and make contain errors or omissions. All injections are used with Lidocaine, Bupivacaine and dexamethasone unless diagnostic in which there is no steroids injected. Occasionally urine drug screen is needed to verify patient's compliance with our office pain contract. This is ordered based off specific treatments related to chronic pain with the potential to abuse certain medications.
== END 2024-09-15 23:59 | disposition home or self-care (01) ==
LOC: SC.PAIN 11:01
PROVIDERS: PCP Family Medicine; Visit Provider Nurse Practitioner Family
DX: M51.360 Other intervertebral disc degeneration, lumbar region with discogenic back pain only (principal); M47.816 Spondylosis without myelopathy or radiculopathy, lumbar region; Z79.891 Long term (current) use of opiate analgesic
CPT/HCPCS: 99202; G0463

== ENCOUNTER 2024-09-27 10:32 | Outpatient (CLI) | payer OTHER, SELFPAY ==
--- OUTSIDE RECORDS SUMMARY | 2024-07-19 05:30 | XMS_ITS ---
Author Organization [facility] Address [address] [place], [place] [id number] Care Team Providers Care Risk Control Director Name Role Phone SumnerMine funesian Primary Care Provider Allergies Allergen (clinical [...] 0.9 Performing Lab: Notes/Report: Test performed by [email or web address] [facility] , [address], [place] [address] Calos Chacon MD, Commercial Helicopter Pilot CLIA: [id number] Sodium 139 135-145 mmol/L Potassium 4.5 3.5-5.3 [...] Growth Performing Lab: Notes/Report: Test performed by [employer] [address] [place], [place] [address] [place] , [address], [place] [address] Calos Chacon MD, Commercial Helicopter Pilot CLIA: [id number] Specimen Source Blood Culture, Blood See Below No Growth at 24 hours No Growth at 5 Days P-TSH reflex to FT4 Reviewed date:07/22/2024 11:07:25 AM Interpretation:Normal Performing Lab: Notes/Report: Test performed by [employer] [address] [place] [address] , [address], [place] [address] Calos Chacon MD, Commercial Helicopter Pilot CLIA: [id number] TSH reflex to FT4 1.59 0.43-5.25 mU/L REASON FOR VISIT f/u from [facility] Medications Medication SIG (Take, Route, Frequency, Duration) Notes Start Date End Date Status oxyCODONE HCl 15 MG 1 tablet Orally every 4 hrs Active Gabapentin 400 MG 1 capsule Orally Onc e a day; Duration: 30 day(s) Active Wheelchair - as directed 01/28/2024 Acti ve Famotidine 20 MG 1 tablet at bedtime as needed Orally Twice a day; Duration: 30 day(s) Active Cyclobenzaprine HCl 5 MG 1 tablet as nee ded Orally Three times a day 06/23/2024 Active Problems Problem Type SNOMED Code ICD Code Onset Dates Problem Status W/U Status Risk Notes Problem Anemia (792638374) Anemia, unspecified type (D64.9) Active confirmed Vital Signs Blood pressure systolic 110 mm Hg 07/20/19 25 Blood pressure diastolic 66 mm Hg 025 Heart Rate 78 /min 07/19/2024 Height 69.5 in 07/19/2024 Weight 204 lbs 07/19/2024 BMI 29.69 kg/m2 07/19/2024 Encounters Encounter Location Date Provider Diagnosis [facility] [facility] [address] [facility] [address] [place] [id number] 07/19/2024 Carson Ibrahim Bacteremia R78.81 ; Methicillin resistant Staphylococcus aureus [...] repo rt test results, Reason: Provider Name:Carson riley, 12/02/2024 09:30:00 AM, [address] [facility] [address] [facility], [address], [place], [id number], Progress Notes * NOE DANIELSOB:1975 (49 yo M)Acc No.[id number]:07/19/2024 Progress Notes Patient: PERRY JOHNSON Provider: Mila Ibrahim M.D. :1975 A ge:49 Y S ex:Male Date:07/19/2024 Address:[address] [place] [address], [place] [address] Subjective: * Chief Complaints: * 1 . f/u from [facility]. * HPI: H PI: 49 year old male presents with c/o Here for follow up on: 0 07/02- [facility] hospitalization. Pt was admitted for positive [...] stic Procedure: k idney stone surgery , [facility] ER - UTI 11/08/2018, [facility] - Neck Surgery 10/13-. * Family [...] G eneral Examination: General Appearance: N AD. H eart: R SR. L ungs:?clear to auscultation. A bdomen: b owel sounds present , soft and nontender. S kin: w ound vac in place over right lower leg site. E xtremities: n o leg edema. Assessment: * Assessment: [...] * S pecimen Source Blood - * FionaLiz 07/26/2024 05:3 5:29 PM > See phone [...] ia phone to report test results * Images: Billing Information: * Visit Code: 67820 Office Visit, Est Pt., Level 4. * Procedure Codes: 05108 CBC WITH AUTO DIFF. 3074F SYST BP LT 130 MM HG. 3078F DIAST BP < 80 MM HG. * Electronic signature of Alia Ibrahim MD on 09/27/2024 at 10:49 AM EDT Sign off status: Pending * Provider: Mila Ibrahim M.D. Date: 0 07/19/2024 Generated for Cristhian louis/Constanza/[place] on: 0 09/27/2024 10:49 AM EDT History and Physical Notes * HPI (History of Present Illness) Category Sub-Category Detail Notes Category Not es HPI Here for follow up on: 07/02-2024 [facility] hospitalization. Pt was admitted for positive [...]
--- OUTSIDE RECORDS SUMMARY | 2024-08-10 11:48 | XMS_ITS | Encounter Summary ---
Author Organization [facility] Address 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 Procedures PET/CT FDG Skull Base To Mid Thigh PET/CT FDG Skull Base To Mid Thigh Matias Eldridge MD [address] [address] Phone: tel: fax: Referral ID Status Reason Start Date Expiration Date Visits Re quested Visits Authorized [id number] Closed 06/10/2024 12/10/2025 2 2 Reason for Visit * Imaging (Routine) - Closed Specialty Diagnoses / Procedures Referred By Kameron santana Referred To Contact Radiology Diagnoses 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 Procedures PET/CT FDG Skull Base To Mid Thigh PET/CT FDG Skull Base To Mid Thigh Matias Eldridge MD [address] [address] Phone: tel: fax: Referral ID Status Reason Start Date Expiration Date Visits Re quested Visits Authorized [id number] Closed 06/10/2024 12/10/2025 2 2 Encounter Details Date Type Department Care Team (Latest Contact Info) Description 08/10/2024 11:48 AM EDT - 08/10/2024 11:59 PM EDT Hospital Encounter [facility] PET Scan [address] [place] [address] Squamous cell carcinoma of neck; Malignant neoplasm of external lower lip Discharge Disposition: Home or Self Care Social [...] place to sleep or slept in a longterm (including now)? No 01/08/2024 Housing Stability Vital Sign Answer Preet e Recorded In the last 12 months, was t here a time when you were not able to pay the mortgage or rent on time? No 07/28/2024 In the past 12 months, how m any times have you moved where you were living? 1 07/28/2024 At any time in the past 12 m [place], were you homeless or living in a longterm (including now)? 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 0 07/22/2024 CAGE Questionnaire Score 0 025 Utilities Answer Date Recorded In the past 12 months has th e Equivalent DATA, gas, oil, or water [employer] threatened to shut off services in your home? No 07/28/2024 Sex and Gender Information Value Date Recorded Sex Assigned at Male 01/06/2024 6:14 AM EDT Legal Sex Male 7:47 PM EDT Gender Identity Male 01/06/2024 6:14 AM EDT Sexual Orientation Not on file documented as of this encounter Medications at [...] Take 1-2 tablets by mouth every 4 hours as needed for severe pain (g89.3). 180 tablet 08/04/2024 5 polyethylene glycol (Miralax) 17 GM/SCOOP powder MIX 17 GRAMS OF POWDER IN 8 OUNCES OF LIQUID AND DRINK ONCE DAILY 510 g 06/21/2024 5 documented as of this encounter Plan of Treatment Upcoming Encounters Date Type Department Care Team (Late st Contact Info) Description 10/06/2024 11:45 AM EDT Office Visit [facility] Res[facility] [address] [facility], [address]nd [place] [address] Matias Eldridge MD 800 [facility] [address] [place] [address] 12/13/2024 10:00 AM EDT Office Visit [facility] [address] [place] [phone] Viky Menon MD [address] [place] [address] 12/13/2024 1:00 PM EDT Appointment [facility] Radiation 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 Small lymph node measures below 1 cm short axis diameter showing mild FDG activity into right VII b location posterior to right sternocleido mastoid muscle. This is indeterminate. Clinical correlation and attention on follow-up is recommended. 2. Moderate increased activity in the vocal cords and posterior commissure SUV max up to 4.2 without underlying significant soft tissue abnormality. This is nonspecific and attention on follow-up and or clinical correlation can be obtained. 3. Extensive postsurgical changes throughout the left neck and mandible with low-grade hypermetabolic activity in the face, which may reflect posttreatment changes. 4. Intense FDG activity at the left sternoclavicular joint region, consistent with known osteomyelitis and recent biopsy. 5. Intense FDG activity at anterior T10/11 with a subtle new lytic changes and partial height loss, concerning for hematogenous spread of osteomyelitis. However, cannot entirely exclude metastatic disease. MRI with and without intravenous contrast correlation is recommended for further evaluation. 6. Small amount of soft tissue stranding of the subcutaneous tissues adjacent to the sacrum with mild hypermetabolic activity, this may be posttraumatic in nature or represent infectious/inflammatory etiology. Recommend clinical correlation. CRITICAL RESULT: No. COMMUNICATION: Per this written report. By electronically signing this report, I, the attending physician, attest that I have personally reviewed the images/data for the above examination(s) and agree with the final edited report. 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 He underwent a composite resection of oral cavity with segmental mandibulectomy, left radical neck dissection, right modified neck dissection and superficial parotidectomy with right fibular free flap reconstruction on 01/06/2024, complicated by infection, debrided with wound vac placement. He began Chemoradiation in Mar 2024, completed on 05/17/2024. TECHNIQUE: Preparation: Last oral intake (except water) on 08/09/2024 at 10:00 PM. Diabetic: No. Blood glucose at time of FDG administration: 106 mg/dL. Radiopharmaceutical: 14.39 mCi of F-18 FDG administered intravenously at central venous catheter at 12:48 PM. Incubation interval: 60 minutes. Oral contrast: Not applicable. Positioning: Arms raised for torso scan, by sides for neck scan. PET/CT scanner: Siemens Biograph 40 mCT. PET/CT acquisition: [id number]-[id number]-thighs, plus magnification (zoomed) neck. Standardized uptake value (SUV): Corrected for body weight only. CT: Low-dose, [id number], without intravenous contrast. TOTAL DLP (Dose Length Product): 1080.50 mGy.cm mGy cm. COMPARISON/CORRELATION: PET/CT on 11/07/2023 was used for comparison. Correlative imaging CT guided biopsy on 07/26/2024. FINDINGS: Technical quality: Diagnostic. Measurements: Unless otherwise specified, all SUVs refer to maximum value in the target (mSUV). Reference: Mean SUV liver: 2.3. SUV max of prior study from outside hospital is difficult to be used for comparison of mean SUV of the liver due to different technique. CT linear measurements performed on axial images. Head and Neck: Post surgical changes throughout the face, neck with left mandibular hardware without underlying focal FDG uptake above background. Evaluation is somewhat limited due to heterogenous soft tissue uptake. The region of left sternoclavicular joint showing heterogenous FDG uptake with maximum SUV of 6.9, consistent with known osteomyelitis and recent biopsy of 07/26/2024 (series 3 image 113). No underlying osseous significant changes. A linear increased FDG activity within the left prevertebral space without definitive CT correlate maximum SUV of 4.0 (series 4 image 71). Linear increased activity within the left paraspinal musculature with a maximum SUV of 3.2, which may represent muscular strain (series 4 image 79). No focal abnormal uptake within thyroid gland. Moderate increased activity in the vocal cords and posterior commissure SUV max up to 4.2 without underlying significant soft tissue abnormality. Small lymph node measures below 1 cm short axis diameter showing mild FDG activity SUV max 2.2 into right VII b location posterior to right sternocleido mastoid muscle. Clear paranasal sinuses and mastoid air-cells. Chest: No suspicious metabolically active lesions within the chest. No suspicious metabolically active or pathologically enlarged hilar or mediastinal adenopathy. 3 mm right lower lobe nodule without focal FDG activity is too small to be reliably characterized by PET (series 11 image 47). Sequelae of prior granulomatous insult. Normal caliber of the thoracic aorta. Aortic and coronary calcifications. No pleural effusion, pericardial effusion or pneumothorax. Abdomen and Pelvis: No suspicious metabolically active lesions within the abdomen and pelvis. No suspicious metabolically active or pathologically enlarged retroperitoneal or pelvic adenopathy. Solid Abdominal Organs: No suspicious focal hypermetabolic lesions in the liver significantly greater than the heterogeneous physiologic uptake. Unremarkable noncontrast appearance of the liver. Unremarkable gallbladder. No biliary dilatation. Calcified splenic granulomas, otherwise unremarkable noncontrast appearance of the spleen. No renal calculus. Unchanged appearance of the left renal lower pole cortical calcifications and pelviectasis. Unremarkable right kidney. No hydronephrosis. No suspicious adrenal masses. No suspicious pancreatic findings. Physiologic bowel activity, without suspicious focal FDG uptake. The large and small bowel appear normal in caliber. No suspicious peritoneal/mesenteric findings. Well defined soft tissue and fat density along the anterior abdominal mesentery with focal hyperdensity (series 11 image 138) without significant FDG activity is unchanged from prior PET/CT dated 11/07/2023 and of uncertain significance. Postoperative changes are seen abdomen without focal abnormal activity. Pelvic Viscera: No pelvic masses Distended urinary bladder causing scatter artifact and limiting evaluation of FDG uptake of pelvic organs and decreased sensitivity for detecting small hypermetabolic pelvic lesions. Vasculature: Normal caliber of the abdominal aorta Calcified atherosclerotic changes of the abdominal aorta. Free Fluid: No ascites or drainable fluid collection Skeleton and Soft Tissues: Small amount of soft tissue stranding within the subcutaneous tissues adjacent to the sacrum without underlying soft tissue abnormality with a maximum SUV of 3.8, may be inflammatory. Partially visualized right upper extremity PICC with catheter tip terminating within the right atrium. No aggressive osseous lytic or sclerotic lesions. Multilevel degenerative changes of the spine. Focus of hypermetabolic activity within the left facet of L4/L5 a maximum SUV of 5.3, may be degenerative facet disease (series 11 image 143). Intense FDG activity at anterior T10/11 with a subtle new lytic changes and partial height loss with a maximum SUV of 8.0. Of note, FDG activity are lateralizing more to the right paraspinal region with no definitive paraspinal collection. (Series 13 image 81). Procedure Note Brayden Berger MD - 08/11/2024 CLINICAL INDICATION: Lower lip squamous cell carcinoma diagnosed 2019 has had primary siteresection and metastatic left submandibular lymph node s/p excision andradiation on 2019. He underwent a composite resection of oral cavity withsegmental mandibulectomy, left radical neck dissection, right modifiedneck dissection and superficial parotidectomy with right fibular free flapreconstruction on 01/06/2024, complicated by infection, debrided withwound vac placement. He began Chemoradiation in Mar 2024, completed on05/17/2024. TECHNIQUE: Preparation: Last oral intake (except water) on 08/09/2024 at 10:00 PM. Diabetic: No. Blood glucose at time of FDG administration: 106 mg/dL. Radiopharmaceutical: 14.39 mCi of F-18 FDG administered intravenously atcentral venous catheter at 12:48 PM. Incubation interval: 60 minutes. Oral contrast: Not applicable. Positioning: Arms raised for torso scan, by sides for neck scan. PET/CT scanner: Siemens Biograph 40 mCT. PET/CT acquisition: Fsebvr-lm-yfe-thighs, plus magnification (zoomed)neck. Standardized uptake value (SUV): Corrected for body weight only. CT: Low-dose, [id number]-nwnk, without intravenous contrast. TOTAL DLP (Dose Length Product): 1080.50 mGy.cm mGy cm. COMPARISON/CORRELATION: PET/CT on 11/07/2023 was used for comparison. Correlative imaging CT guidedbiopsy on 07/26/2024. FINDINGS: Technical quality: Diagnostic. Measurements: Unless otherwise specified, all SUVs refer to maximum valuein the target (mSUV). Reference: Mean SUV liver: 2.3. SUV max of prior study from outsidehospital is difficult to be used for comparison of mean SUV of the liverdue to different technique. CT linear measurements performed on axial images. Head and Neck: Post surgical changes throughout the face, neck with left mandibularhardware without underlying focal FDG uptake above background. Evaluationis somewhat limited due to heterogenous soft tissue uptake. The region of left sternoclavicular joint showing heterogenous FDG uptakewith maximum SUV of 6.9, consistent with known osteomyelitis and recentbiopsy of 07/26/2024 (series 3 image 113). No underlying osseous significantchanges. A linear increased FDG activity within the left prevertebralspace without definitive CT correlate maximum SUV of 4.0 (series 4 image71). Linear increased activity within the left paraspinal musculature with amaximum SUV of 3.2, which may represent muscular strain (series 4 image79). No focal abnormal uptake within thyroid gland. Moderate increased activity in the vocal cords and posterior commissureSUV max up to 4.2 without underlying significant soft tissueabnormality. Small lymph node measures below 1 cm short axis diameter showing mild FDGactivity SUV max 2.2 into right VII b location posterior to rightsternocleido mastoid muscle. Clear paranasal sinuses and mastoid air-cells. Chest: No suspicious metabolically active lesions within the chest. No suspicious metabolically active or pathologically enlarged hilar ormediastinal adenopathy. 3 mm right lower lobe nodule without focal FDG activity is too small to bereliably characterized by PET (series 11 image 47). Sequelae of prior granulomatous insult. Normal caliber of the thoracic aorta. Aortic and coronarycalcifications. No pleural effusion, pericardial effusion or pneumothorax. Abdomen and Pelvis: No suspicious metabolically active lesions within the abdomen andpelvis. No suspicious metabolically active or pathologically enlargedretroperitoneal or pelvic adenopathy. Solid Abdominal Organs: No suspicious focal hypermetabolic lesions in the liver significantlygreater than the heterogeneous physiologic uptake. Unremarkablenoncontrast appearance of the liver. Unremarkable gallbladder. No biliary dilatation. Calcified splenic granulomas, otherwise unremarkable noncontrastappearance of the spleen. No renal calculus. Unchanged appearance of the left renal lower polecortical calcifications and pelviectasis. Unremarkable right kidney. Nohydronephrosis. No suspicious adrenal masses. No suspicious pancreatic findings. Physiologic bowel activity, without suspicious focal FDG uptake. The large and small bowel appear normal in caliber. No suspicious peritoneal/mesenteric findings. Well defined soft tissue and fat density along the anterior abdominalmesentery with focal hyperdensity (series 11 image 138) withoutsignificant FDG activity is unchanged from prior PET/CT dated 4and of uncertain significance. Postoperative changes are seen abdomenwithout focal abnormal activity. Pelvic Viscera: No pelvic masses Distended urinary bladder causing scatter artifact and limiting evaluationof FDG uptake of pelvic organs and decreased sensitivity for detectingsmall hypermetabolic pelvic lesions. Vasculature: Normal caliber of the abdominal aorta Calcified atherosclerotic changes of the abdominal aorta. Free Fluid: No ascites or drainable fluid collection Skeleton and Soft Tissues: Small amount of soft tissue stranding within the subcutaneous tissuesadjacent to the sacrum without underlying soft tissue abnormality with amaximum SUV of 3.8, may be inflammatory. Partially visualized right upperextremity PICC with catheter tip terminating within the right atrium. No aggressive osseous lytic or sclerotic lesions. Multilevel degenerative changes of the spine. Focus of hypermetabolicactivity within the left facet of L4/L5 a maximum SUV of 5.3, may bedegenerative facet disease (series 11 image 143). Intense FDG activity atanterior T10/11 with a subtle new lytic changes and partial height losswith a maximum SUV of 8.0. Of note, FDG activity are lateralizing more tothe right paraspinal region with no definitive paraspinal collection.(Series 13 image 81). IMPRESSION: 1.Small lymph node measures below 1 cm short axis diameter showing mildFDG activity into right VII b location posterior to right sternocleidomastoid muscle. This is indeterminate. Clinical correlation and attentionon follow-up is recommended. 2.Moderate increased activity in the vocal cords and posterior commissureSUV max up to 4.2 without underlying significant soft tissue abnormality.This is nonspecific and attention on follow-up and or clinical correlationcan be obtained. 3.Extensive postsurgical changes throughout the left neck and mandiblewith low- grade hypermetabolic activity in the face, which may reflectposttreatment changes. 4.Intense FDG activity at the left sternoclavicular joint region,consistent with known osteomyelitis and recent biopsy. 5.Intense FDG activity at anterior T10/11 with a subtle new lytic changesand partial height loss, concerning for hematogenous spread ofosteomyelitis. However, cannot entirely exclude metastatic disease. MRIwith and without intravenous contrast correlation is recommended forfurther evaluation. 6.Small amount of soft tissue stranding of the subcutaneous tissuesadjacent to the sacrum with mild hypermetabolic activity, this may beposttraumatic in nature or represent infectious/inflammatory etiology.Recommend clinical correlation. CRITICAL RESULT: No. COMMUNICATION: Per this written report. By electronically signing this report, I, the attending physician, purvi I have personally reviewed the images/data for the aboveexamination(s) and agree with the final edited report. 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 neoplasm of lower lip, vermilion border documented in this encounter Administered Medications Inactive Administered Medications - up to 3 most recent administrations Medication Order MAR Action Action Date Dose Rate Site Fludeoxyglucose F 18 (FDG 18) radio-isotope injection 10 millicurie 10 millicurie, Intravenous, Once, 1 dose, On Tu08/10/24 at 1415, Routine, Imaging NM Protocol Orders Given 08/10/2024 12:48 PM EDT 14.39 millicuries Other documented in this encounter Additional Health Concerns Infection Onset Date 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 02/19/2024 Assessment Noted Time A fall risk assessment has been complete d for the patient 07/22/2024 8:50 AM EDT A Body Mass Index follow-up plan has been documented for the patient 07/29/2024 9:08 AM EDT documented as of this encounter Care Teams Dealer Development Manager Relationship Specialty Start Date End Date Carson Ibrahim MD [address] [address] PCP - General 11/20/23 Imer Sevilla MD 800 [facility] [address] [place] [address] Consulting Physician Radiation Oncology 02/27/24 Viky Menon MD 800 [facility] [address] [place] [address] Consulting Physician Medical Oncology 04/21/24 Amelia Freeman, RN Registered Nurse Hematology and Oncology 05/13/24 documented as of this encounter
--- OUTSIDE RECORDS SUMMARY | 2024-08-10 11:48 | XMS_ITS | Encounter Summary ---
Author Organization [facility] Address [address] 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 Procedures PET/CT FDG Skull Base To Mid Thigh PET/CT FDG Skull Base To Mid Thigh Matias Eldridge MD 800 [facility] [address] [address] Phone: tel: fax: Referral ID Status Reason Start Date Expiration Date Visits Re quested Visits Authorized [id number] Closed 06/10/2024 12/10/2025 2 2 Encounter Details Date Type Department Care Team (Latest Contact Info) Description 08/10/2024 11:48 AM EDT - 08/10/2024 11:59 PM EDT Hospital Encounter [facility] PET Scan 800 [place] [phone] Discharge Disposition: Home or Self Care Social [...] place to sleep or slept in a group home (including now)? No 01/08/2024 Housing Stability Vital [...] time in the past 12 m [facility], were you homeless or living in a group home (including now)? 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 0 07/22/2024 CAGE Questionnaire Score 0 025 Utilities Answer Date Recorded In the past 12 months has th e [employer], gas, oil, or water [employer] threatened to shut off services in your [...] for severe pain (g89.3). 180 tablet 08/04/2024 polyethylene glycol (Miralax) 17 GM/SCOOP powder MIX 17 GRAMS OF POWDER IN 8 OUNCES OF LIQUID AND DRINK ONCE DAILY 510 g 06/21/2024 5 documented as of this encounter Plan of Treatment Upcoming Encounters Date Type Department Care Team (Late st Contact Info) Description 10/06/2024 11:45 AM EDT Office Visit Pav CC Head, Neck & Respiratory 800 [facility], 2nd [place] [address] Matias Eldridge MD 800 [facility] [address] [place] [phone] 12/13/2024 10:00 AM EDT Office Visit Pav CC Head, Neck & Respiratory 800 [facility], 2nd [place] [phone] Viky Menon MD 800 [facility] Liz Hester [facility] [address] [place] [phone] 12/13/2024 1:00 PM EDT Appointment PAV CC Radiation 800 [facility]. [id number] [place] [phone] Imer Sevilla MD 800 [facility] [address] [place] [phone] documented as of this encounter Procedures Procedure [...] scanner: Siemens Biograph 40 mCT. PET/CT acquisition: Acltwx-cl-okd-thighs, plus magnification (zoomed) neck. Standardized uptake value (SUV): Corrected for body weight only. CT: Low-dose, uzv-ipycqx-skvb, without intravenous contrast. TOTAL DLP (Dose Length [...] scanner: Siemens Biograph 40 mCT. PET/CT acquisition: Fwpuvq-hn-fox-thighs, plus magnification (zoomed)neck. Standardized uptake value (SUV): Corrected for body weight only. CT: Low-dose, xxr-qyasxz-mpfm, without intravenous contrast. TOTAL DLP (Dose Length [...] by Brayden Berger on 08/11/2024 3:35 PM Matias Eldridge MD IMG NM PROCEDURES Final Result documented in this encounter Visit Diagnoses Not on filedocumented in this encounter Additional Health Concerns Infection Onset Date 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 02/19/2024 Assessment Noted Time A fall risk assessment has been complete d for the patient 07/22/2024 8:50 AM EDT A Body Mass Index follow-up plan has been documented for the patient 07/29/2024 9:08 AM EDT documented as of this encounter Care Teams Process Engineering Intern Relationship Specialty Start Date End Date Carson Ibrahim MD [facility] [address] [place] [address] PCP - General 11/20/23 Imer Sevilla MD [address] [facility] [address] [place] [phone] Consulting Physician Radiation Oncology 02/27/24 Viky Menon MD [address] Kacie [facility] [address] [place] [address] Consulting Physician Medical Oncology 04/21/24 Amelia Freeman RN Registered Nurse Hematology and Oncology 05/13/24 documented as of this encounter
--- OUTSIDE RECORDS SUMMARY | 2024-08-12 08:30 | XMS_ITS | Encounter Summary ---
Author Organization Healthcare Address [address] [place] [address] Care Team Providers Care Carpet Jack Name Role Phone Carson Ibrahim MD Primary Care Provider + [phone] Imer Sevilla MD Unavailable Viky Menon MD Unavailable +[phone] Amelia Freeman RN Unavailable Unavailable Reason for Visit * Reason Comments Osteomyelitis * Consultation (Urgent) - Closed Specialty Diagnoses / Procedures Referred By Kameron santana Referred To Contact Infectious Diseases Diagnoses Bacteremia Other acute osteomyelitis, other site ([facility]/HCC) Viky Menon MD [address] [place] [address] [address] [place] [address] Phone: tel: fax: Referral ID Status Reason Start Date Expiration Date V isits Requested Visits Authorized [id number] Closed Specialty Services Required 07/22/2024 01/21/2026 1 1 Encounter Details Date Type Department Care Team (Late st Contact Info) Description 08/12/2024 8:30 AM EDT Office Visit [address] [address] [place] [address] [place] [address] [address] [place] [address] Acute osteomyelitis of left clavicle (CMS/HCC) (Primary Dx); Squamous cell carcinoma, lip; MRSA bacteremia; Bacteremia; Other acute osteomyelitis, other site ([facility]) Social History Tobacco Use Types Packs/Day Years [...] place to sleep or slept in a jail (including now)? No 01/08/2024 Housing Stability Vital [...] were you homeless or living in a jail (including now)? No 07/28/2024 CAGE ASSESSMENT Answer [...] drink first t idalia in the morning (EYE-LEAD PHP DEVELOPER) to steady your nerves or to get [...] chemotherapy and XRT. Patient recently admitted at [facility] from 07/01 -> 07/08 for MRSA bacteremia, [...] and XRT and was recently admitted at [facility] from 07/01 -> 07/08 for MRSA bacteremia, where he notes left clavicle/shoulder pain first started. Thereafter admitted to [facility] for further management after a 07/21 [...] Pav [facility] Head, Neck & Respiratory [address] [facility], [address]nd [place] [address] Matias Eldridge MD [address] [facility] [address] [place] [phone] 12/13/2024 10:00 AM EDT Office Visit Pav [facility] Head[facility] Neck [facility] Respiratory [address] [facility], [address]nd [place] [phone] Viky Menon MD [address] [facility] [address] [facility] [address] [place] [address] 12/13/2024 1:00 PM EDT Appointment P[facility] CC Radiation [address] [id number] [place] [address] Imer Sevilla MD [address] [facility] [address] [place] [address] documented as of this encounter Visit Diagnoses [...] documented as of this encounter Care Teams Carpet Jack Relationship Specialty Start Date End Date Carson Ibrahim MD [address] [facility] [address] [place] [address] PCP - General 11/20/23 Imer Sevilla MD [address] [facility] [address] [place] [address] Consulting Physician Radiation Oncology 02/27/24 Viky Menon MD [address] [facility] [address] [place] [address] Consulting Physician Medical Oncology 04/21/24 Amelia Freeman, RN Registered Nurse Hematology and Oncology 05/13/24 documented as of this encounter
--- OUTSIDE RECORDS SUMMARY | 2024-08-12 08:53 | XMS_ITS | Encounter Summary ---
Author Organization [facility] Address [address] [place] [address] Care Team Providers Care Wheel Braider Name Role Phone Carson Ibrahim MD Primary Care Provider + [phone] Imer Sevilla MD Unavailable Viky Menon MD Unavailable [phone] Amelia Freeman RN Unavailable Unavailable Reason for Referral * Consultation (Routine) - Closed Specialty Diagnoses / Procedures Referred By Kameron santana Referred To Contact Oral Surgery Diagnoses Malignant neoplasm of external lower lip Imer Sevilla MD [address] [place] [address] Phone: tel: fax: [facility] [address] [place] [address] [address] [place] [address] Phone: tel: Referral ID Status Reason Start Date Expiration Date V isits Requested Visits Authorized [id number] Closed Specialty Services Required 08/12/2024 02/11/2026 1 1 Reason for Visit * Reason Comments Follow-up Encounter Details Date Type Department Care Team (Latest Contact Info) Description 08/12/2024 8:53 AM EDT - 08/12/2024 11:59 PM EDT Hospital Encounter P[facility] CC Radiation [id number] [place] [address] Imer Sevilla MD [address] [place] [address] 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) Discharge Disposition: Still a Patient Social History Tobacco Use Types Packs/Day Years [...] place to sleep or slept in a mcc (including now)? No 01/08/2024 Housing Stability Vital Sign Answer Preet e Recorded In the last 12 months, was t here a time when you were not able to pay the mortgage or rent on time? No 07/28/2024 In the past 12 months, how m any times have you moved where you were living? 1 07/28/2024 At any time in the past 12 m [facility], were you homeless or living in a mcc (including now)? No 07/28/2024 CAGE ASSESSMENT Answer [...] drink first t idalia in the morning (EYE-AUTO RENTAL CLERK) to steady your nerves or to get [...] Sign Reading Time Taken Comments Blood Pressure 130/87 08/12/2024 9:46 AM EDT Pulse 57 08/12/2024 9:46 AM EDT Temperature - - Respiratory Rate 16 08/12/2024 9:46 AM EDT Oxygen Saturation 95% 08/12/2024 9:46 AM EDT Inhaled Oxygen Concentration - - Weight 90.3 kg (199 lb 1.2 oz) 08/12/2024 9:46 A M EDT Height - - Body Mass Index 28.56 08/12/2024 8:06 AM EDT documented in this encounter Medications at Time of Discharge acetaminophen (Tylenol) 500 MG tablet Take 2 tablets by mouth every 6 hours as needed for pain. cyclobenzaprine (Flexeril) 5 MG tablet Take 1 tablet by mouth 3 times a day as needed for muscle spasms. diclofenac (Voltaren) 1 % topical gel Place on the skin 2 times a day. Apply as directed to the chest at the area of pain 50 g 2 08/12/2024 famotidine (Pepcid) 20 MG tablet Take 1 [...] encounter Miscellaneous Notes * Progress Notes - Wan Gastelum MD - 08/12/2024 10:00 AM EDT [facility] RADIATION MEDICINE RADIATION ONCOLOGY CHILD NEUROLOGIST FOLLOW UP NOTE Henny Daniels Jr. is a 49 y.o. male with a diagnosis of oral cancer who returns today for scheduled follow-up. Cancer Staging Squamous cell carcinoma, lip Staging form: Oral Cavity, AJCC 8th Edition - Pathologic stage from 01/06/2024: Stage IVB (rpTX, rpN3b, rcM0) - Signed by Viky Menon MDon 02/02/2024 Referring Physician: Viky Menon MD Radiation Oncologist: Imer Sevilla MD RADIATION THERAPY (XRT): Treatment Site: head and neck Total Dose: 6600cGy in 33 fractions of 200cGy daily VMAT Date XRT completed: 03/31-05/17/2024 HISTORY OF PRESENT ILLNESS: Henny Daniels Jr. Is a 49 y.o. male with PMH of obesity, PONV (postoperative nausea and vomiting), and Type 2 diabetes mellitus. Oncologic History: includes lower lip SCCa diagnosed in 2018, for which he underwent resection without further therapy. In September 2019, he was found to have a left submandibular node that was positive for SCCa without evidence of primary site recurrence or distant metastasis. The patient reports his left submandibular gland was excised at that time with positive margins and he subsequently underwent chemoradiotherapy with Cisplatin, completed in December 2019. He was then treated with postoperative radiation therapy to the left neck in the tumor bed of the left submandibular gland covering the left neck nodes treated by 6 mV photon beam with 4 oblique hallman total of 4500 cGy delivered by 25 fractions between 12/08/2019 and 02/14/2020 this was followed by a boost to the tumor bed In the left submandibular resected area for an additional 540 cGy given by 2 oblique hallman by 3 fractions between 01/17/2020 and 01/19/2020 this was also given concurrent chemotherapy under care of Dr. Cruz. He was unfortunately lost to follow-up after February 2021 untilJu2023 when he presented to medical oncology with a painful left submandibular area mass that had been increasing in size for approximately 1 year. Repeat PET/CT was demonstrated metastic disease. He underwent a composite resection of oral cavity with segmental mandibulectomy, left radical neck dissection, right modified neck dissection and superficial parotidectomy with right fibular free flap reconstruction on 01/06/2024, complicated by infection, debrided with wound vac placement. - Gary (01/06/2024): PROCEDURE PERFORMED: Tracheostomy Wide local excision, left neck skin Composite resection oral cavity with segmental mandibulectomy including skin, and floor of mouth Left neck dissection levels I-IV Right modified neck dissection levels I-III Superficial parotidectomy without identification of the facial nerve Jazmyn (02/18/2024): Procedure(s): Irrigation and debridement of right lower extremity skin graft site Intraoperative wound vac placement (15 x 8 x 1 cm) Mr. Daniels's current systemic therapy CARBOplatin + XRT Every 7 Days He began Chemoradiation in Mar 2024, completed on 05/17/2024. He had radiation induced pain which was managed medically and dysgeusia as well. He has skin toxicities managed with Aquaphor and xerostomia managed with magic mouthwash. He presents today for his scheduled follow up. Interval History: Today, he shares he is ok . He was recently admitted to the hospital from 07/22- 07/28/24 for osteomyelitis of left clavicle/SCM joint. He remains on IV daptomycin until 09/02/24 and is following with ID.He notes continued pain in this area. He also notes some back pain that has been present since June. He denies any bowel incontinence, urinary retention, lower extremity weakness, nor numbness. He reports some difficulty swallowing and he has lost 24-lbs since his last dose of radiation (3-months ago). He would like to be evaluated for dentures. HE reports xerostomia, but is not using any mouthwash. KPS: 80: Normal activity with effort, some symptoms/signs Past Medical, Surgical, and Family History: I have reviewed Mr. Daniels's medical, surgical and otherpertinent history; unchanged from most recent clinic visit or updated as indicated in HPI. Social History[1] The patient has been counseled on tobacco cessation: No Medications: Current Outpatient Medications Medication Instructions acetaminophen (TYLENOL) 1,000 mg, Every 6 hours PRN cyclobenzaprine (FLEXERIL) 5 mg, 3 times daily PRN DAPTOmycin (CUBICIN) 10 mg/kg, Intravenous, Every 24 hours, Inpatient/[place] specific directions only. Mix and deliver per institution/facility policy. diclofenac (Voltaren) 1 % topical gel Transdermal, 2 times daily, Apply as directed to the chest atthe area of pain famotidine (PEPCID) 20 mg, Nightly PRN methocarbamol (Robaxin) 500 MG tablet TAKE 2 TABLETS BY MOUTH EVERY 8 HOURS NEEDED FOR MUSCLE PAIN AND SPASM metoprolol succinate XL (TOPROL-XL) 25 mg, Oral, Daily, Do not crush or chew. Multiple Vitamin (multivitamin) tablet 1 tablet, Daily ondansetron ODT (ZOFRAN-ODT) 8 mg, Oral, Every 8 hours PRN oxyCODONE (ROXICODONE) 10-20 mg, Oral, Every 4 hours PRN polyethylene glycol (Miralax) 17 GM/SCOOP powder MIX 17 GRAMS OF POWDER IN 8 OUNCES OF LIQUID AND DRINK ONCE DAILY traZODone (DESYREL) 100 mg, Nightly Allergies: Penicillins Physical Exam: Visit Vitals BP 130/87 Pulse 57 SpO2 95% Wt Readings from Last 3 Encounters: 08/12/24 90.3 kg (199 lb 1.2 oz) 08/12/24 90.7 kg (199 lb 15.3 oz) 07/22/24 90.3 kg (199 lb) Physical Exam Constitutional: Appearance: Normal appearance. He is not ill-appearing. HENT: Nose: Nose normal. Mouth/Throat: Lips: [place]. No lesions. Mouth: Mucous membranes are dry. No oral lesions. Tongue: No lesions. Palate: No mass. Pharynx: No oropharyngeal exudate or posterior oropharyngeal erythema. Eyes: Extraocular Movements: Extraocular movements intact. Pupils: Pupils are equal, round, and reactive to light. 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 Well healed surgical scar. Slight reduction in ROM Cardiovascular: Rate and Rhythm: Normal rate and regular rhythm. Pulses: Normal pulses. Heart sounds: No murmur heard. No friction rub. No gallop. Pulmonary: Effort: Pulmonary effort is normal. Musculoskeletal: Comments: No point tenderness along spine Lymphadenopathy: Cervical: No cervical adenopathy. Skin: General: Skin is warm and dry. Comments: Mild hyperpigmentation to xrt treatment area. RLE with wound vac, wound covered by dressing. Neurological: Mental Status: He is alert. DATA: Radiographic Studies: CT SOFT TISSUE NECK W IV CONTRAST 07/21/2024 IMPRESSION: Stable post-treatment changes in the neck [...] PET/CT scan may be beneficial to evaluate formetabolically active disease. Continue Clinical Follow-up: Ongoing clinical follow-up is essential to monitor for any signs or symptoms of recurrence. CT CHEST W IV CONTRAST 07/21/2024 IMPRESSION: No acute pulmonary process. No new focal consolidation Interval development of asymmetric soft tissue thickening and inflammation adjacent to the left sternoclavicular joint along with new small lytic changes in the medial head of the left clavicle and left side of the manubrium. The constellation of findings concerning for soft tissue infection/osteomyelitis with septic arthritis. Clinical correlation and joint aspiration is recommended. PET/CT 08/11/24 COMPARISON/CORRELATION: PET/CT on 11/07/2023 was used for [...] showing mild FDG activity SUV max 2.2 intoright VII b location posterior to right sternocleido [...] changes and partial height loss with a maximumSUV of 8.0. Of note, FDG activity are lateralizing more to the right paraspinal region with no definitive paraspinal collection. (Series 13 image 81). IMPRESSION: 1.Small lymph node measures below 1 cm short axis diameter showing mild FDG activity into right VIIb location posterior to right sternocleido mastoid muscle. This is indeterminate. Clinical correlation and attention on follow-up is recommended. 2.Moderate increased activity in the vocal cords and posterior commissure SUV max up to 4.2 withoutunderlying significant soft tissue abnormality. This is nonspecific and attention on follow-up and or clinical correlation can be obtained. 3.Extensive postsurgical changes throughout the left neck and mandible with low- grade hypermetabolic activity in the face, which may reflect posttreatment changes. 4.Intense FDG activity at the left sternoclavicular joint region, consistent with known osteomyelitis and recent biopsy. 5.Intense FDG activity at anterior T10/11 with a subtle new lytic changes and partial height loss, concerning for hematogenous spread of osteomyelitis. However, cannot entirely exclude metastatic disease. MRI with and without intravenous contrast correlation is recommended for further evaluation. 6.Small amount of soft tissue stranding [...] by Brayden Berger on 08/11/2024 3:35 PM PATHOLOGY: no new Laboratory studies: ASSESSMENT AND PLAN In summary, Henny Daniels Jr. is a 49 y.o. male with who had LEFT external lip SCC status post resection along, followed by destiny recurrence status post resection with LND (pt had CURT), followed by 50.4Gy of radiation with concurrent chemotherapy in 2019. He subsequently had another destiny recurrencein 2023, now status post resection and chemoradiation completed on 05/18/2024. Recently, he was hospitalized in June 2024 for MRSA bacteremia and again from 07/22-07/28/24 with concern for L clavicular osteomyelitis. He is currently on Daptomycin with an end date of 09/02/24. He had a repeat PET/CT yesterday 08/11/24, which showed a small right station VIIb LN that is indeterminate. Additionally, there is some mild uptake in the left paraspinal muscle that is also indeterminate.Finally, there is intense uptake at the L clavicular head as well as at T10/T11. It is unclear whether the thoracic lesion represents malignancy or spread of his infection. We will plan to follow-up in 1-month after he completes IV antibiotics to reassess and will plan for tumor board around that time to best determine how to proceed. Plan -RTC in 1-month -repeat CT-chest and neck in 3-months -will consider MRI-Tspine after completion of antibiotics Post-Radiation Therapy : Today he is stable though has continued weight . There are no signs of acute complications or radiation toxicities at this time. -Encouraged improved oral hygiene, use of salt/soda mouth wash in am with OTC mouth wash brand for dry mouth as needed. (Handout recipe provided) -Encouraged oral intake of water. -Brushing of tongue. -referral placed to OMFS Consult /referral to Social Work regarding financial concerns. ROM Neck: provided education on the importance of and rational for neck exercises. (Direction/handout provided) Follow-up plan: Reviewed that we will have have him return in 1 month. He is in agreement with thisplan. I believe all of his questions were answered. He knows to call with questions or concerns. No orders of the defined types were placed in this encounter. Future Appointments Date Time Provider Department Center 09/02/2024 9:30 AM Abel Johnson MD [id number] [place] 09/08/2024 10:40 AM Matias Eldridge MD [facility] 12/13/2024 10:00 AM Viky Menon MD [facility] Please coordinate Jazmyn or Sinan visit(s) with other Chidi visits and or imaging. A total of 30 minutes was spent preparing, performing an examination, counseling, educating the patient, and care coordination. Wan Gastelum MD Hematology/Oncology Fellow, PGY4 08/12/2024 Vickey Mehta II, MD, PGY-5 Resident Physician, Radiation Oncology [facility] Pager: [phone] [1] Social History Tobacco Use Smoking status: Never Passive exposure: Never Smokeless tobacco: Never Vaping Use Vaping status: Never Used Substance Use Topics Alcohol use: Yes Comment: social. Drug use: Never Cosigned by Imer Sevilla MD at 08/12/2024 11:54 AM EDT Associated attestation - Imer Sevilla MD - 08/12/2024 11:54 AM EDT I saw and evaluated the patient with the resident/fellow. I discussed the case with the resident/fellow and agree with the findings and plan as documented. documented in this encounter Plan of Treatment Upcoming Encounters Date Type Department Care Team ([facility] Contact Info) Description 10/06/2024 11:45 AM EDT Office Visit Pav CC Head, Neck & Respiratory [address] [place] [phone] Matias Eldridge MD [address] [facility] [address] [place] [address] 12/13/2024 10:00 AM EDT Office Visit Pav CC Head, Neck & Respiratory [address] [facility], [address] [place] [address] Viky Menon MD [address] [facility] [address] [facility] [address] [place] [address] 12/13/2024 1:00 PM EDT Appointment PAV CC Radiation [address] [id number] [place] [address] Imer Sevilla MD [address] [facility] [address] [place] [address] Scheduled Referrals Name Type Priority Associated Diagnoses Order Schedule Ambulatory referral to Oral Maxillofacial Surgery Outpatient Referral Routine Malignant neoplasm of external lower lip 1 Occurrences starting 08/12/2024 until 02/12/2026 documented as of this encounter Visit Diagnoses Diagnosis Malignant neoplasm of external lower lip- Primary Malignant neoplasm of lower lip, [place]mil[place] border documented in this encounter Additional Health Concerns Infection Onset Date 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 02/19/2024 Assessment Noted Time A fall risk assessment has been complete d for the patient 08/12/2024 9:47 AM EDT A Body Mass Index follow-up plan has been documented for the patient 08/12/2024 8:35 AM EDT documented as of this encounter Care Teams Wheel Braider Relationship Specialty Start Date End Date Carson Ibrahim MD [address] [facility] [address] [place] [address] PCP - General 11/20/23 Imer Sevilla MD [address] [facility] [address] [place] [address] Consulting Physician Radiation Oncology 02/27/24 Viky Menon MD [address] [facility] [address] [phone] Consulting Physician Medical Oncology 04/21/24 Amelia Freeman, RN Registered Nurse Hematology and Oncology 05/13/24 documented as of this encounter
--- OUTSIDE RECORDS SUMMARY | 2024-09-01 06:30 | XMS_ITS ---
[facility] [address] [facility] [address] [facility] [address] [place] [phone] Care Team Providers Care Steel Worker Name Role Phone Carson Ibrahim Primary Care [...] Najera 2024 11:09:01 AM > faxed to [facility] Pain Management Referral Priority Routine REASON FOR VISIT 4 weeks Medications Medication SIG (Take, Route, Fr equency, Duration) Notes Start Date End Date Status oxyCODONE HCl 15 MG 1 tablet Orally every 4 hrs Active Wheelchair - as directed 01/28/2024 Acti ve Famotidine 20 MG 1 tablet at bedtime as needed Orally Twice a day; Duration: 30 day(s) Active Problems Problem Type SNOMED Code ICD Code Onset Dates Problem Status W/U Status Risk Notes Problem Chronic pain (11846533) Other chronic pain (G89.29) Active confirmed Problem Lumbar foraminal stenosis (M48.061) Active confirmed Problem Spinal stenosis of lumbar region without neurogenic claudication (M48.061) Active confirmed Vital Signs Blood pressure systolic 130 mm Hg 09/02/19 25 Blood pressure diastolic 80 mm Hg 025 Heart Rate 64 /min 09/01/2024 Height 69.5 in 09/01/2024 Weight 197 lbs 09/01/2024 BMI 28.67 kg/m2 09/01/2024 Encounters Encounter Location Date Provider Diagnosis [facility] [address] [place], [place] [phone] 09/01/2024 Carson Ibrahim HFrEF (heart failure with [...] Recent Echo from and stress test from [facility] reviewed with patient in office today. Patient [...] Recent Echo from and stress test from [facility] reviewed with patient in office today. Patient is asymptomatic at this point. He stopped metoprolol due to bradycardia. He with keep follow up with cardiology in a few weeks Referrals Referral Date Details 09/01/2024 09/01/2024, Jarvis Elizondo x Next Appt Details Follow Up: 3 Months fasting, Reason: Provider Name:Carson Esteban ry, 12/02/2024 09:30:00 AM, [address], [place], [place], [phone], Progress Notes * NOE DANIELSOB:1975 (49 yo M)Acc No.[id number]:09/01/2024 Progress Notes Patient: PERRY JOHNSON Provider: Mila Ibrahim M.D. :1975 A ge:49 Y S ex:Male Date:09/01/2024 Address:[address] [place] [address], [place] [address] Subjective: * Chief Complaints: * 1 . [...] Procedure: aiyana crow stone surgery , [facility] ER - UTI 11/08/2018, [facility] - Neck Surgery 10/13-. * Family History: F ather: 62 yrs, diagnosed with Heart Disease. M other: alive, diagnosed with Mental Illness. S iblings: alive, family history unknown . C hilen: alive. 1 sister(s) . 3 son(s) - [...] eart: R SR. L ungs:?clear to auscultation. S kin: w ound vac in place over right lower leg site. E xtremities: n o leg edema, PICC line in [...] lumbar disc - M51.369 8 . B CO 28.0-28.9,adult - Z68.28 Plan: * Treatment: 2. [...] * Follow Up: 3 Months fasting * Images: Billing Information: * Visit Code: 87957 Office Visit, Est Pt., Level 4. * Procedure Codes: 1036F TOBACCO NON-USER. G8420 BMI<30 AND >=22 CALC & DOCU. G8783 BP SCR PRFRM RCMDD DEFIND SCR INTVL. G8752 MOST RECENT SYSTOLIC BP < 140MM HG. G8754 MOST RECENT DIASTOLIC BP < 90MM HG. * Electronic signature of Alia Ibrahim MD on 09/27/2024 at 10:46 AM EDT Sign off status: Pending * Provider: Mila Ibrahim M.D. Date: 09/01/2024 Generated for Cristhian louis/Constanza/eTbridgersmitting on: 0 09/27/2024 10:46 AM EDT History and Physical Notes * [...]
--- OUTSIDE RECORDS SUMMARY | 2024-09-02 09:30 | XMS_ITS | Encounter Summary ---
Author Organization Healthcare Address [address] [place] [address] Care Team Providers Care Ems Coordinator Name Role Phone Carson Ibrahim MD Primary Care Provider + [phone] Imer Sevilla MD Unavailable Viky Menon MD Unavailable [phone] Amelia Freeman RN Unavailable Unavailable Encounter Details Date Type Department Care Team (Late st Contact Info) Description 09/02/2024 9:30 AM EDT Office Visit [facility] [address] [place] [address] Abel Johnson MD [facility] [address] [place] [address] MRSA bacteremia (Primary Dx); Acute [...] in a jail (including now)? No 01/08/2024 PHQ-9 Answer Date [...] any time in the past 12 m [facility], were you homeless or living in [...] drink first t idalia in the morning (EYE-DEMO COORDINATOR) to steady your nerves or to get rid of a hangover? 0 07/22/2024 CAGE Questionnaire Score 0 025 Utilities Answer Date Recorded In the past 12 months has e [employer], gas, oil, or water [employer] threatened to shut off services in your [...] Notes * Progress Notes - Michael Bailey, AIRPLANE DISPATCHER - 09/02/2024 9:30 AM EDT Infectious Diseases [...] chemotherapy and XRT. Patient [facility] for MRSA bacteremia, [...] and XRT and was recently admitted at [facility] from [facility] -> 07/08 for MRSA bacteremia, where he notes left clavicle/shoulder pain first started. Thereafter admitted to [facility] for further management after a 07/21 CT [...] to clinic as needed Michael Bailey APRN [address] [address] Cosigned by Abel Johnson MD at 09/02/2024 [...] Upcoming Encounters Date Type Department Care Team ([facility] st Contact Info) Description 10/06/2024 11:45 AM EDT Office Visit [facility] [address] [facility], 2nd [place] [phone] Matias Eldridge MD [address] [facility] [address] [place] [address] 12/13/2024 10:00 AM EDT Office Visit [facility] [address] [facility], 2nd [place] [address] Viky Menon MD 800 [facility] [address] [place] [address] 12/13/2024 1:00 PM EDT Appointment [facility] [address] [facility]. [address] [place] [address] Imer Sevilla MD 800 [facility] [address] [place] [address] Scheduled Orders Name Type Priority Associated Diagnoses [...] documented as of this encounter Care Teams Ems Coordinator Relationship Specialty Start Date End Date Carson Ibrahim MD [address] [place] [address] PCP - General 11/20/23 Imer Sevilla MD [address] [facility] [address] [place] [address] Consulting Physician Radiation Oncology 02/27/24 Viky Menon MD [address] [facility] [address] [place] [address] Consulting Physician Medical Oncology 04/21/24 Amelia Freeman, RN Registered Nurse Hematology and Oncology 05/13/24 documented as of this encounter
--- OUTSIDE RECORDS SUMMARY | 2024-09-08 10:45 | XMS_ITS | Encounter Summary ---
Author Organization Healthcare Address [address] [place] [address] Care Team Providers Care Maintenance And Engineering Manager Name Role Phone Carson Ibrahim MD Primary Care Provider + [phone] Imer Sevilla MD Unavailable Viky Menon MD Unavailable [phone] Amelia Freeman RN Unavailable Unavailable Reason for Visit * Reason Comments Follow-up Encounter Details Date Type Department Care Team (Latest Contact Info) Description 09/08/2024 10:45 AM EDT Office Visit [facility] Head, Neck & Respiratory [address] [facility], 2nd [place] [address] Matias Eldridge MD 800 [facility] [address] [place] [address] Squamous cell carcinoma, lip (Primary Dx); Malignant [...] a group home (including now)? No 01/08/2024 PHQ-9 Answer Date [...] any time in the past 12 m [facility], were you homeless or living in [...] drink first t idalia in the morning (EYE-CLINICAL ADVISOR) to steady your nerves or to get rid of a hangover? 0 07/22/2024 CAGE Questionnaire Score 0 025 Utilities Answer Date Recorded In the past 12 months has th [employer], gas, oil, or water [employer] threatened to shut off services in your [...] 8:45 AM EDT documented in this encounter Miscellaneous Notes * Progress Notes - Ampaor Mackenzie MD - 09/08/2024 10:45 AM EDT I had the pleasure of seeing Mr. Henny Daniels Jr. in [facility] at the [facility]. Henny Daniels Jr. is a 49 y.o. male who presents to our clinic today for follow up evaluation. His history includes lower lip SCCa diagnosed in 2018, [...] chemoradiotherapy with Cisplatin, completed in December 2019. Post-treatment PET in early 2020 was negative for disease. He was unfortunately lost to follow-up after February 2021 until September of 2023 when he presented to medical oncology with a painful left submandibular area mass that had been increasing in size for approximately 1 year. Repeat PET/CT was ordered and and performed on 11/03/23 which revealed a 1 cm lymph node posterior to the left parotid gland with mild hypermetabolic activity with a maximumSUV of 3.6, a large cystic/necrotic lesion in the anterior left submandibular/submental region measuring 3.4 x 2.6 cm that was mildly hypermetabolic along the anterior medial aspect with a maximum SUV of 5.0, and a rounded area of hypermetabolism which appears to correspond with a 1.6 cm nodular lesion with a maximum SUV of 7.4 in the left submental space. He adjuvant radiation therapy due to positive margin on submandibular gland excision completing in December 2019. The patient developed infection in right lower extremity donor site requiring prolonged wound management. He was admitted on 07/22/24 for osteomyelitis of the left supraclavicular joint. Plan was initially made prior to this for a split thickness skin graft but decision was made to continue with wound vac as the area was healing well. He completed 6 weeks of IV daptomycin therapy following discharge and had his PICC line removed on 09/02. He states his shoulder and neck pain has improved dramatically. He has been having wound vac changes to his right lower extremity three times a week but states insurance ran out and the wound vac was removed yesterday. He is now doing wet to dry dressings with homehealth twice weekly. He feels the area is healing well. There is a small staple that is beginning to extrude in his lower extremity. He otherwise has no new concerns at this time. The patient's complete review of system from 09/08/24 was performed today. All systems were negative except for those mentioned in the HPI. Radiographs: - CT scan of the neck: . 07/21/24: Stable post-treatment changes in the neck following [...] sternoclavicular joint are compatible with treated osteomyelitis. - CT scan of the chest: . 07/21/24: No acute pulmonary process. No new focal consolidation Interval development of asymmetric soft tissue thickening and inflammation adjacent to the left sternoclavicular joint along with new small lytic changes in the medial head of the left clavicle and left side of the manubrium. The constellation of findings concerning for soft tissue infection/osteomyelitis with septic arthritis. Clinical correlation and joint aspiration is recommended. - PET CT scan: . 08/10/24: 1.Small lymph node measures below 1 cm [...] or represent infectious/inflammatory etiology. Recommend clinical correlation. - Ultrasound of the thyroid: . N/a I independently reviewed the images and discussed them with the patient. I do agree with the interpretation. Surgeries: - PEG tube placement 20F Jazmyn (02/18/2024): Procedure(s): Irrigation and debridement of right lower extremity skin graft site Intraoperative wound vac placement (15 x 8 x 1 cm) - Jazmyn (01/06/2024), Recon Procedures Performed 1.) Mil-osteofascial right fibular free flap 2.) Adjacent tissue transfer neck, 35cm2 3.) Adjacent tissue transfer oral cavity, 18cm2 4.) ORIF mandible 5.) STSG from right thigh to right lower extremity donor site - Gary (01/06/2024): PROCEDURE PERFORMED: Tracheostomy Wide local excision, left neck skin Composite resection oral cavity with segmental mandibulectomy including skin, and floor of mouth Left neck dissection levels I-IV Right modified neck dissection levels I-III Superficial parotidectomy without identification of the facial nerve Pathology/Labs: - Final Diagnosis A. LEFT SUBMANDIBULAR MASS, SUPERFICIAL FINE NEEDLE ASPIRATE: - RARE MARKEDLY ATYPICAL CELLS MORPHOLOGICALLY MOST COMPATIBLE WITH SQUAMOUS CELL CARCINOMA, SEE COMMENT The smears show a background of cyst fluid with rare markedly atypical single cells and admixed macrophages. One pass demonstrates a few markedly atypical cell groups which are morphologically consistent with tumor. Given the clinical history and the cytologic findings, the aspirate is morphologically most compatible with recurrent / metastatic squamous cell carcinoma. (01/06/24): L. LEFT COMPOSITE RESECTION WITH LEVELS IA AND IB: - METASTATIC SQUAMOUS CELL CARCINOMA WITHIN SOFT TISSUE, SEE COMMENT. - AT LEAST TWO OF THREE LYMPH NODES WITH METASTATIC SQUAMOUS CELL CARCINOMA, (AT LEAST 2/3). - EXTRANODAL EXTENSION PRESENT. - LYMPHOVASCULAR INVASION PRESENT. - PERINEURAL INVASION INVOLVING NERVES AT LEAST 0.5 MILLIMETERS IN CALIBER. - MARGINS NEGATIVE FOR TUMOR (0.3 MILLIMETERS FROM DEEP MARGIN). Tumor Board recommendations: - Pending tumor board discussion Videostroboscopy: Performed by our Speech and Language Pathologist - N/a Allergies: Allergies[1] Past medical history: As in history of present illness Past surgical history: As described above Family history: reviewed and noncontributory Social history: never smoker, does not drink or use any illicit drugs. PHYSICAL EXAMINATION: Visit Vitals BP 118/73 (BP Location: Left arm, Patient Position: Sitting) Pulse 68 Temp 36.6 ??C (97.8 ??F) (Oral) Wt 88.6 kg (195 lb 5.2 oz) SpO2 96% BMI 28.03 kg/m?? General: alert and oriented x3; no acute distress Psychiatric evaluation: Normal mood and affect; pleasant and cooperative. Nasal cavity examination: No visible polyps, masses, or purulence Oral cavity examination: The buccal mucosa, lips, gingiva, retromolar trigone, alveolar ridge, floor of mouth, tongue and palate unremarkable. No visible mass lesions. Well-healed incision of the floor of mouth. Loss of left lower lip from prior operation. Oropharynx: Tonsils are unremarkable bilaterally. Neck: Supple; no palpable cervical lymphadenopathy Eyes: Extraocular movements are intact bilaterally. Neurological examination: Cranial nerves II-XII are grossly intact. Skin of the neck and face: no evidence of significant rashes, suspicious appearing nevi or other concerning lesions. Post operative changes with tightened neck skin. Endocrine examination: No palpable thyroid nodules or thyromegaly. Respiratory: No increased work of breathing, dyspnea, or use of accessory muscles of respiration Extremities: Right lower extremity with well healing donor site with healthy granulation tissue evident, with wet to dry dressing in place PROCEDURE PERFORMED: FLEXIBLE FIBEROPTIC LARYNGOSCOPY (CPT 72121) FINDINGS: NASAL CAVITY/NASOPHARYNX: No masses/lesions/polyposis/mucosal ulceration. Bilateral eustachian tubeorifices non-obstructed. OROPHARYNX: BOT, vallecula, posterior tonsillar pillars w/o masses/lesions/mucosal ulceration. No RP bulging. HYPOPHARYNX: No masses/lesions/mucosal ulceration of piriform sinuses or post- cricoid region. Mild pooling of secretions. GLOTTIS/SUPRAGLOTTIS: Lingual & laryngeal surface of epiglottis, AE folds, arytenoids, false vocal folds w/o masses/lesions/mucosal ulceration. True vocal folds freely mobile without significant glottic gap. IMPRESSION/PLAN: His right lower extremity is starting to heal well and I think it is reasonable to discontinue the wound vac and transition to wet-to-dry dressings twice weekly for him. He recently underwent PET-CT on 08/11/24 described above which showed an indeterminate right station VIIb LN as well as some uptake in left clavicular head and T10/T11 that is indeterminate and increased uptake in the glottis. Flexible laryngoscopy was performed today and was without concern for malignancy. He is going to see radiation oncology this month and plan is to discuss his case at tumor board. I will see him back in 1month or sooner if any concerns or questions arise. Matias Eldridge MD, FACS Print Binding Worker Head & Neck Surgical Oncology, Thyroid/Parathyroid Surgery, Transoral Robotic Surgery, and Microvascular Reconstruction Department of Otolaryngology - Division of Head & Neck Surgery [facility] - Head, Neck, & Respiratory Clinic [facility] [1] Allergies Allergen Reactions Penicillins Rash and Swelling A CHILD Cosigned by Matias Eldridge MD at 09/19/2024 4:18 PM EDT Associated attestation - Matias Eldridge MD - 09/19/2024 4:18 PM EDT I saw and evaluated the patient with the resident/fellow. I discussed the case with the resident/fellow and agree with the findings and plan as documented. I was present, supervised the performance of FFL, and am in agreement with the documented findings. Matias Eldridge MD, FACS Head & Neck Surgical Oncology, Transoral Robotic Surgery (TORS), Thyroid & Parathyroid Surgery and Microvascular Reconstruction Department of Otolaryngology-Head & Neck Surgery [facility] Head, Neck, & Respiratory Clinic [facility] documented in this encounter Plan of Treatment Upcoming Encounters Date Type Department Care Team (Late st Contact Info) Description 10/06/2024 11:45 AM EDT Office Visit [facility] Head, Neck & Respiratory [address] [facility], 2nd [place] [address] Matias Eldridge MD 800 [facility] [address] [address] 12/13/2024 10:00 AM EDT Office Visit [facility] Head, Neck & Respiratory [address]nd [place] [address] Viky Menon MD [address] [facility] [address] [facility] [address] [place] [address] 12/13/2024 1:00 PM EDT Appointment P[facility] CC Radiation [id number] [place] [address] Imer Sevilla MD [id number] [place] [address] documented as of this encounter Visit Diagnoses [...] Time PHQ-9 Depression Total Score: 0 09/03/19 8:44 AM EDT A fall risk assessment has been complete d for the patient 09/08/2024 9:52 AM EDT A Body Mass Index follow-up plan has been documented for the patient 09/16/2024 9:46 AM EDT documented as of this encounter Care Teams Maintenance And Engineering Manager Relationship Specialty Start Date End Date Carson Ibrahim MD [address] [place] [address] PCP - General 11/20/23 Imer Sevilla MD [address] [phone] Consulting Physician Radiation Oncology 02/27/24 Viky Menon MD [address] [facility] [address] [facility] [address] [place] [address] Consulting Physician Medical Oncology 04/21/24 Amelia Freeman, RN Registered Nurse Hematology and Oncology 05/13/24 documented as of this encounter
--- OUTSIDE RECORDS SUMMARY | 2024-09-10 09:13 | XMS_ITS | Encounter Summary ---
Author Organization [facility] Address [address] [id number] Care Team Providers Care Outsole Tacker Name Role Phone Carson Ibrahim MD Primary Care Provider + [phone] Imer Sevilla MD Unavailable Viky Menon MD Unavailable [phone] Amelia Freeman RN Unavailable Unavailable Reason for Referral * Imaging (Routine) - Pending Review Specialty Diagnoses / Procedures Referred By Contac t Referred To Contact Radiology Diagnoses Secondary malignant neoplasm lymph nodes of head, face and neck (CMS/HCC) Procedures CT Chest w IV Contrast Imer Sevilla MD [address] [address] Phone: tel: fax: Referral ID Status Reason Start Date Expiration Date V isits Requested Visits Authorized [id number] Pending Review 09/12/2024 03/14/2026 1 1 * Imaging (Routine) - Pending Review Specialty Diagnoses / Procedures Referred By Kameron t Referred To Contact Radiology Diagnoses Secondary malignant neoplasm lymph nodes of head, face and neck (CMS/HCC) Procedures CT Soft Tissue Neck w IV Contrast Imer Sevilla MD [address] [address] Phone: tel: fax: Referral ID Status Reason Start Date Expiration Date V isits Requested Visits Authorized [id number] Pending Review 09/12/2024 03/14/2026 1 1 Reason for Visit * Reason Comments Follow-up Encounter Details Date Type Department Care Team (Latest Contact Info) Description 09/10/2024 9:13 AM EDT - 09/10/2024 11:59 PM EDT Hospital Encounter [facility] CC Radiation [id number] [place] [address] Imer Sevilla MD [address] [place] [address] Secondary malignant neoplasm lymph nodes of head, [...] place to sleep or slept in a assisted (including now)? No 01/08/2024 PHQ-9 Answer Date [...] any time in the past 12 m [facility], were you homeless or living in a assisted (including now)? No 07/28/2024 CAGE ASSESSMENT Answer [...] drink first t idalia in the morning (EYE-ADVERTISING STRATEGIST) to steady your nerves or to get [...] nausea or vomiting. 30 tablet 3 05/13/2024 oxyCODONE (Roxicodone) 10 MG immediate release tablet Take 1-2 tablets by mouth every 4 hours as needed for severe pain (g89.3). 180 tablet 09/02/2024 polyethylene glycol (Miralax) 17 GM/SCOOP powder Take 17 g by mouth daily as needed (constipation) . 510 g 3 09/02/2024 sodium chloride 0.9 % solution 07/05/2024 traZODone (Desyrel) 100 MG tablet Take 1 tablet by mouth nightly. vancomycin (Vancocin) 10 g reconstituted solution 07/05/2024 documented as of this encounter Miscellaneous Notes * Progress Notes - Vickey Mehta MD - 09/10/2024 10:15 AM EDT [facility] RADIATION MEDICINE RADIATION ONCOLOGY SLIDER ASSEMBLER FOLLOW UP NOTE Henny Daniels Jr. is [...] ill-appearing. HENT: Nose: Nose normal. Mouth/Throat: Lips: [place]. No lesions. Mouth: Mucous membranes are dry. [...] 09/10/2024 10:15 AM Imer Sevilla MD RO RADON [facility]ney 09/23/2024 1:45 PM Kelsey Cerda D[facility] 10/06/2024 11:45 AM Matias Eldridge MD [facility] 12/13/2024 10:00 AM Viky Menon MD [facility] [place] Please coordinate Jazmyn or Sinan visit(s) with other Chidi visits and or imaging. A total of 30 minutes was spent preparing, performing an examination, counseling, educating the patient, and care coordination. Vickey Mehta II, MD, PGY-5 Resident Physician, Radiation Oncology [facility] Pager: [phone] [1] Social History Tobacco Use Smoking status: [...] Pav CC Head, Neck & Respiratory 800 [facility], 2nd [place] [address] Matias Eldridge MD [address] [facility] [address] [place] [address] 12/13/2024 10:00 AM EDT Office Visit Pav CC Head, Neck & Respiratory 800 [facility], 2nd [place] [address] Viky Menon MD [address] [facility] [address] [facility] [address] [place] [address] 12/13/2024 1:00 PM EDT Appointment [facility] CC Radiation [address] [facility]. [id number] [place] [address] Imer Sevilla MD 800 [facility] [address] [place] [address] Scheduled Orders Name Type Priority [...] documented as of this encounter Care Teams Outsole Tacker Relationship Specialty Start Date End Date Carson Ibrahim MD 12[address] [facility] [address] [place] [address] PCP - General 11/20/23 Imer Sevilla MD 800 [facility] [address] [place] [address] Consulting Physician Radiation Oncology 02/27/24 Viky Menon MD 800 [facility] [address] [phone] Consulting Physician Medical Oncology 04/21/24 Amelia Freeman, RN Registered Nurse Hematology and Oncology 05/13/24 documented as of this encounter
--- OUTSIDE RECORDS SUMMARY | 2024-09-23 13:45 | XMS_ITS | Encounter Summary ---
Author Organization [facility] Address [address] [place] [address] Care Team Providers Care Corporate Financial Analyst Name Role Phone Carson Ibrahim MD Primary Care Provider + [phone] Imer Sevilla MD Unavailable Viky Menon MD Unavailable [phone] Amelia Freeman RN Unavailable Unavailable Reason for Visit * Consultation (Routine) - Closed Specialty Diagnoses / Procedures Referred By Kameron santana Referred To Contact Oral Surgery Diagnoses Malignant neoplasm of external lower lip Imer Sevilla MD [address] [facility] [address] [place] [address] Phone: tel: fax: [facility] school traffic supervisor Faculty Clinic [address] [facility] [address] [place] [address] Phone: tel: Referral ID Status Reason Start Date Expiration Date V isits Requested Visits Authorized [id number] Closed Specialty Services Required 08/12/2024 02/11/2026 1 1 Encounter Details Date Type Department Care Team (Late st Contact Info) Description 09/23/2024 1:45 PM EDT Evaluation DSB principal engineer Clinic [address] [facility] [address] [place] [address] Kelsey Cerda, DMD [address] [facility] [address] [place] [address] Edentulism (Primary Dx) Social History [...] in a longterm (including now)? No 01/08/2024 PHQ-9 Answer Date [...] time in the past 12 m [facility], were you homeless or living in a [...] drink first t idalia in the morning (EYE-SUPERVISOR SULFURIC ACID PLANT) to steady your nerves or to get [...] 1:25 PM EDT documented in this encounter Miscellaneous Notes * Progress Notes - Kelsey Cerda, DMD - 09/23/2024 1:45 PM EDT Subjective: 49 y.o. male presents to clinic for Comprehensive exam & Evaluation for dentures Objective: Medical and dental hx reviewed. Vitals: 09/23/24 1325 BP: 105/70 Pulse: 57 Temp: 36.8 ??C (98.2 ??F) SpO2: 98% Medications Ordered Prior to Encounter[1] Past Medical History[2] Allergies[3] Assessment: ASA Class: ASA 3 Radiographs: Radiographic Exam findings: Clinical Exam findings: Pt is edentulous. Pt has a history right lower lip resection. Pt has a slightly atrophic ru. ridge Discussed with patient that history of H&N [...] 07/15/24, PO antbiotics Congestive heart failure (CHF) ([facility] Diabetes ([facility]) High blood pressure Lip cancer Morbid obesity ([facility]) 01/07/2024 PONV (postoperative nausea and vomiting) Type 2 diabetes mellitus 01/07/2024 UTI (urinary tract infection) 01/07/2024 [3] Allergies Allergen Reactions Penicillins Rash and Swelling A CHILD documented in this encounter Plan of Treatment Upcoming Encounters Date Type Department Care Team ([facility] st Contact Info) Description 10/06/2024 11:45 AM EDT Office Visit [facility] [address] [facility] 2nd [place] [address] Matias Eldridge MD [address] [facility] 2[address] [place] [address] 12/13/2024 10:00 AM EDT Office Visit [facility] [address] [facility]nd [place] [address] Viky Menon MD [address] [facility] [address] [facility] [address] [place] [address] 12/13/2024 1:00 PM EDT Appointment [facility] Radiation [address] [facility] [place] [address] Imer Sevilla MD [address] [facility] [address] [place] [address] documented as of this encounter [...] documented as of this encounter Care Teams Corporate Financial Analyst Relationship Specialty Start Date End Date Carson Ibrahim MD [facility] [address] [address] PCP - General 11/20/23 Imer Sevilla MD [address] [facility] [address] [place] [address] Consulting Physician Radiation Oncology 02/27/24 Viky Menon MD [address] [facility] [address] [place] [address] Consulting Physician Medical Oncology 04/21/24 Amelia Freeman, RN Registered Nurse Hematology and Oncology 05/13/24 documented as of this encounter
--- NOTE | 2024-09-27 10:30 | MR_ITS ---
APPROVED REPORT Household Manager: CLINICAL INDICATION HFrEF evaluation TECHNIQUE Image Acquisition: Cardiac magnetic resonance (CMR) was performed on Siemens Espree MRI 1.5T scanner. Software platform sequences were performed using the Siemens Optimum Pumping Technology MR B19 platform. A set of three-plane, low-resolution, large [id number] localizers were initially acquired. Then axial, coronal, sagittal TrueFISP, as well as axial HASTE images, were obtained. These were followed by gated TrueFISP breathold cinematic sequences obtained in the short axis with 8 mm slices and 2 mm gaps, 2-chamber (vertical long axis), 3-chamber, 4-chamber (horizontal long axis). A bolus of contrast was injected intravenously with first-pass sequences obtained in the short axis and four-chamber planes. After approximately 10 minutes, a TI rail switchman sequence was performed to determine the optimal TI time. Using the optimized TI time, delayed contrast enhancement segmented inversion???recovery TurboFLASH sequences were obtained in the short axis, 2-chamber, 3-chamber, and 4-chamber projections. 2D-velocity phase mapping was performed. Functional parameters were calculated by offline analysis on an independent workstation (QFPay Imaging Platform, [employer]). Contrast: ProHance??? (Gadoteridol) FINDINGS MORPHOLOGY AND FUNCTION Left ventricle: The left ventricle is severely dilated. The indexed left ventricular end-diastolic volume (LVEDVi) is 132 ml/m2 (reference range 57-105 ml/m2 in males, 56-96 ml/m2 in females). Mld reduction in left ventricular systolic function is present. There is normal left ventricular wall thickness. There is mild global hypokinesis present. There are no regional wall motion abnormalities noted. LVEF is calculated at 46.3% (reference range 57-77%). Right ventricle: The right ventricle is severely dilated. The indexed right ventricular end-diastolic volume (RVEDVi) is 100 ml/m2 (reference range 61-121 ml/m2 in males, 48-112 ml/m2 in females). Mild reduction in right ventricular systolic function is present. RVEF is calculated at 44.5% (reference range 52-72% in males, 51-71% in females). Atria: The left atrium is severely dilated. The maximum indexed left atrial volume is 57 ml/m2 (reference range 26-52 ml/m2 in males, 27-53 ml/m2 in females). The right atrium is severely dilated. The maximum indexed right atrial volume is 54 ml/m2 (reference range 18-90 ml/m2). Aorta: The diameter of the aortic annulus is normal, measuring 25 mm (coronal view reference range 21-30 mm in males, 19-27 mm in females). The diameter of the aortic sinus is normal, measuring 35 mm (coronal view reference range 25-42 mm in males, 24-36 mm in females). The diameter of the sinotubular junction is normal, measuring 30 mm (coronal view reference range 18-32 mm in males, 18-28 mm in females). The diameters of the ascending and descending thoracic aorta are normal. Main pulmonary artery: The main pulmonary artery diameter increased, measuring 35 mm in diameter. Pericardium: The pericardial thickness is normal. The pericardial thickness measures 1.8 mm (normal < 4.0 mm). Trivial circumferential pericardial effusion is present. VALVES Mild mitral regurgitation is present. Systolic anterior motion of the mitral valve is not visualized. Ratio of pulmonary to systemic flow, Qp:Qs ratio = 1.0 (normal < or = 1.2, hemodynamically significant shunt > 1.5), demonstrating no evidence of hemodynamically significant shunt. TISSUE CHARACTERIZATION Resting Perfusion: Normal myocardial blood flow at rest. No evidence of resting hypoperfusion. Myocardial Fibrosis and/or edema: Normal gadolinium kinetics are present. No evidence of late gadolinium enhancement is noted, consistent with absence of myocardial scarring, infarction, or necrosis. T2-weighted imaging demonstrates no evidence of myocardial edema or inflammation. OTHER No other significant findings are noted. However, this exam is focused on the cardiac structure and function. IMPRESSION Severe LV dilation with mild reduction in LV systolic function. LVEDVi= 132 ml/m2 and LVEF= 46.3%. Severe RV dilation with mild reduction in RV systolic function. RVEDVi= 100 ml/m2 and RVEF= 44.5%. Biatrial enlargement. Mild MR is present. No CMR evidence of myocardial scarring, infarction, or necrosis. No evidence of myocardial edema or inflammation. Perfusion analysis demonstrates normal blood flow at rest with no evidence of resting hypoperfusion. Ratio of pulmonary to systemic flow, Qp:Qs ratio = 1.0 (normal < or = 1.2, hemodynamically significant shunt > 1.5), demonstrating no evidence of hemodynamically significant shunt. Trivial circumferential pericardial effusion is present. Mildly dilated pulmonary artery (PA). This CMR demonstrates severe biventricular dilation with mild biventricular reduction in systolic function (LVEF 46.3%). There is no evidence of myocardial scarring, infarct, or myocardial fibrosis. No evidence of infiltrative cardiomyopathy. The above findings are consistent with idiopathic, dilated, non-ischemic cardiomyopathy. GDMT is recommended. COMPARISON None CRITICAL RESULT None COMMUNICATION As above. The findings of this cardiac MR were reviewed, reported, and signed by Saqib Martin MD (Configuration Management Advisor). Conclusion Electronically signed by : Mildred Martin MD 10/18/2024 14:11:08
--- OUTSIDE RECORDS SUMMARY | 2024-09-27 10:46 | XMS_ITS | Encounter Summary ---
Author Organization Healthcare Address [address] [id number] Care Team Providers Care Evaluation Assistant Name Role Phone Carson Ibrahim MD Primary Care Provider + [phone] Imer Sevilla MD Unavailable Viky Menon MD Unavailable [phone] Amelia Freeman RN Unavailable Unavailable Encounter Details Date Type Department Care Team (Late st Contact Info) Description 08/04/2024 Refill Pav [facility] Head, Neck & Respiratory [address] [facility], 2nd [place] [phone] Viky Menon MD 800 [facility] [address] [place] [address] Social History Tobacco Use Types [...] any time in the past 12 m [facility], were you homeless or living [...] drink first t idalia in the morning (EYE-WATER MAIN PIPE LAYER) to steady your nerves or to get rid of a hangover? 0 07/22/2024 CAGE Questionnaire Score 0 025 Utilities Answer Date Recorded In the past 12 months has th e [employer], gas, oil, or water company threatened to [...] and optimal time of day to reach caller:[phone] Note: Please do not reply to this [...] Reason for Call: Per pt call to [facility], pt needs a refill of prescriptions. Preferred pharmacy is [facility]. Best contact number and optimal time of day to reach caller: [phone] Note: Please do not reply to this [...] Pav CC Head, Neck & Respiratory [address] [facility], 2nd [place] [address] Matias Eldridge MD [address] [facility] 2nd [place] [address] 12/13/2024 10:00 AM EDT Office Visit Pav CC Head, Neck & Respiratory [address] [facility], 2nd [place] [address] Viky Menon MD [address] [facility] Liz Hester [facility] [address] [place] [address] 12/13/2024 1:00 PM EDT Appointment PAV CC Radiation [address] [facility]. [id number] [place] [phone] Imer Sevilla MD 800 [facility] [address] [place] [address] documented as of this encounter [...] documented as of this encounter Care Teams Evaluation Assistant Relationship Specialty Start Date End Date Carson Ibrahim MD [address] [address] PCP - General 11/20/23 Imer Sevilla MD 800 [facility] [address] [place] [address] Consulting Physician Radiation Oncology 02/27/24 Viky Menon MD [address] [address] Consulting Physician Medical Oncology 04/21/24 Amelia Freeman, RN Registered Nurse Hematology and Oncology 05/13/24 documented as of this encounter
--- OUTSIDE RECORDS SUMMARY | 2024-09-27 10:46 | XMS_ITS | Encounter Summary ---
Author Organization [facility] Address [address] [id number] Care Team Providers Care Director Of Physical Education Name Role Phone Carson Ibrahim MD Primary Care Provider + [phone] Imer Sevilla MD Unavailable Viky Menon MD Unavailable [phone] Amelia Freeman RN Unavailable Unavailable Reason for [...] Contrast Viky Menon MD [address] [address] Phone: tel: fax: Referral ID Status Reason Start Date Expiration Date V isits Requested Visits Authorized [id number] Pending Review 07/26/2024 01/25/2026 1 1 * Imaging (Routine) - Pending Review Specialty Diagnoses / Procedures Referred By Kameron santana Referred To Contact Radiology Diagnoses 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, 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, face and neck (CMS/HCC) Procedures CT Chest w IV Contrast Viky Menon MD [address] [address] Phone: tel: fax: Referral ID Status Reason Start Date Expiration Date V isits Requested Visits Authorized [id number] Pending Review 07/26/2024 01/25/2026 1 1 Encounter Details Date Type Department Care Team (Late st Contact Info) Description 07/26/2024 Orders Only Pav CC Head, Neck & Respiratory 800 [facility], [address]nd [place] [address] Viky Menon MD 800 [facility] Liz Hester dg [address] [place] [address] Malignant neoplasm of external lower [...] a senior care (including now)? No 01/08/2024 Housing Stability Vital Sign Answer Preet e Recorded In the last 12 months, was t here a time when you were not able to pay the mortgage or rent on time? No 07/28/2024 In the past 12 months, how m any times have you moved where you were living? 1 07/28/2024 At any time in the past 12 m [facility], were you homeless or living [...] drink first t idalia in the morning (EYE-TROUBLE OPERATOR) to steady your nerves or to get rid of a hangover? 0 07/22/2024 CAGE Questionnaire Score 0 025 Utilities Answer Date Recorded In the past 12 months has th e [email or web address], gas, oil, or water company threatened to [...] Month) No 07/27/2024 8:00 PM EDT Arielle Andersne RN 6. Suicidal Behavior (Lifetime) No 8:00 PM EDT Corie Andersen RN documented as of this encounter Plan of Treatment Upcoming Encounters Date Type Department Care Team (Late st Contact Info) Description 10/06/2024 11:45 AM EDT Office Visit Pav CC Head, Neck & Respiratory 800 [facility], 2nd [place] [address] Matias Eldridge MD 800 [facility] 2nd [place] [address] 12/13/2024 10:00 AM EDT Office Visit Pav CC Head, Neck & Respiratory [address] [facility], 2nd [place] [address] Viky Menon MD 800 [facility] [address] [place] [address] 12/13/2024 1:00 PM EDT Appointment P[facility] CC Radiation [id number] [place] [address] Imer Sevilla MD [address] [facility] [address] [place] [address] Scheduled Orders Name Type Priority Associated Diagnoses [...] and neck (CMS/HCC) Expected: 12/06/2024, Expires: 01/26/2026 documented as of this encounter Visit Diagnoses [...] documented as of this encounter Care Teams Director Of Physical Education Relationship Specialty Start Date End Date Carson Ibrahim MD [address] [place] [address] PCP - General 11/20/23 Imer Sevilla MD [address] [facility] [address] [place] [address] Consulting Physician Radiation Oncology 02/27/24 Viky Menon MD [address] Liz Hester [facility] [address] [place] [address] Consulting Physician Medical Oncology 04/21/24 Amelia Freeman, RN Registered Nurse Hematology and Oncology 05/13/24 documented as of this encounter
--- OUTSIDE RECORDS SUMMARY | 2024-09-27 10:46 | XMS_ITS | Encounter Summary ---
Author Organization Healthcare Address [address] [place] [address] Care Team Providers Care Clarity Developer Name Role Phone Carson Ibrahim MD Primary Care Provider + [phone] Imer Sevilla MD Unavailable Viky Menon MD Unavailable [phone] Amelia Freeman RN Unavailable Unavailable Encounter Details Date Type Department Care Team (Late st Contact Info) Description 07/29/2024 Clinical Support [facility] [address] [place] [address] Joe Sepulveda, PharmD 3101 [facility] [address] [place] [address] Social History Tobacco Use Types [...] in a half-way (including now)? No 01/08/2024 Housing Stability Vital Sign Answer Preet e Recorded In the last 12 months, was t here a time when you were not able to pay the mortgage or rent on time? No 07/28/2024 In the past 12 months, how m any times have you moved where you were living? 1 07/28/2024 At any time in the past 12 m [facility], were you homeless or living in a half-way (including now)? No 07/28/2024 CAGE ASSESSMENT Answer [...] drink first t idalia in the morning (EYE-HIDE AND SKIN FLESHING MACHINE OPERATOR) to steady your nerves or [...] Upcoming Encounters Date Type Department Care Team ([facility] st Contact Info) Description 10/06/2024 11:45 AM EDT Office Visit Pav CC Head, Neck & Respiratory 800 [facility], 2nd [place] [address] Matias Eldridge MD 800 [facility] [address] [place] [address] 12/13/2024 10:00 AM EDT Office Visit Pav CC Head, Neck & Respiratory [address] [facility], 2nd [place] [address] Viky Menon MD 800 [facility] [address] [place] [address] 12/13/2024 1:00 PM EDT Appointment P[facility] CC Radiation [address] [facility]. [id number] [place] [address] Imer Sevilla MD 800 [facility] [address] [place] [address] documented as of this encounter [...] documented as of this encounter Care Teams Clarity Developer Relationship Specialty Start Date End Date Carson Ibrahim MD [address] [facility] [address] [place] [address] PCP - General 11/20/23 Imer Sevilla MD 800 [facility] [address] [place] [address] Consulting Physician Radiation Oncology 02/27/24 Viky Menon MD 800 [facility] [address] [place] [address] Consulting Physician Medical Oncology 04/21/24 Amelia Freeman, RN Registered Nurse Hematology and Oncology 05/13/24 documented as of this encounter
--- OUTSIDE RECORDS SUMMARY | 2024-09-27 10:46 | XMS_ITS | Encounter Summary ---
Author Organization Healthcare Address [address] [place] [address] Care Team Providers Care Finisher Fine Diamond Dies Name Role Phone Carson Ibrahim MD Primary Care Provider + [phone] Imer Sevilla MD Unavailable Viky Menon MD Unavailable [phone] Amelia Freeman RN Unavailable Unavailable Encounter Details Date Type Department Care Team (Late st Contact Info) Description 07/30/2024 External Documentati on Encounter [facility] [address] [place] [address] Tanya Hamilton, RN [facility] Social History Tobacco Use Types [...] in a usp (including now)? No 01/08/2024 Housing Stability Vital Sign Answer Preet e Recorded In the last 12 months, was t here a time when you were not able to pay the mortgage or rent on time? No 07/28/2024 In the past 12 months, how m any times have you moved where you were living? 1 07/28/2024 At any time in the past 12 m [facility], were you homeless or living in a [...] drink first t idalia in the morning (EYE-SECURITIES AND REAL ESTATE DIRECTOR) to steady your nerves or to get [...] Upcoming Encounters Date Type Department Care Team ([facility] st Contact Info) Description 10/06/2024 11:45 AM EDT Office Visit Pav CC Head, Neck & Respiratory 800 [facility], 2nd [place] [address] Matias Eldridge MD 800 [facility] [address] [place] [address] 12/13/2024 10:00 AM EDT Office Visit Pav CC Head, Neck & Respiratory [address] [facility], 2nd [place] [address] Viky Menon MD 800 [facility] [address] [place] [address] 12/13/2024 1:00 PM EDT Appointment PAV CC Radiation [address] [facility]. [id number] [place] [address] Imer Sevilla MD 800 [facility] [address] [place] [address] documented as of this encounter Visit Diagnoses [...] documented as of this encounter Care Teams Finisher Fine Diamond Dies Relationship Specialty Start Date End Date Carson Ibrahim MD 1210 [facility] [address] [place] [address] PCP - General 11/20/23 Imer Sevilla MD 800 [facility] [address] [place] [address] Consulting Physician Radiation Oncology 02/27/24 Viky Menon MD 800 [facility] [address] [place] [address] Consulting Physician Medical Oncology 04/21/24 Amelia Freeman, RN Registered Nurse Hematology and Oncology 05/13/24 documented as of this encounter
--- OUTSIDE RECORDS SUMMARY | 2024-09-27 10:46 | XMS_ITS | Encounter Summary ---
Author Organization Healthcare Address [address] [place] [address] Care Team Providers Care Deputy Grand Jury Name Role Phone Carson Ibrahim MD Primary Care Provider + [phone] Imer Sevilla MD Unavailable Viky Menon MD Unavailable [phone] Amelia Freeman RN Unavailable Unavailable Reason for Visit * Reason Comments Resource Navigation Encounter Details Date Type Department Care Team (Late st Contact Info) Description 07/29/2024 Social Work Psych Oncology [address] [place] [address] Tamar Cruz Social History Tobacco Use Types [...] in a fpc (including now)? No 01/08/2024 Housing Stability Vital Sign Answer Preet e Recorded In the last 12 months, was t here a time when you were not able to pay the mortgage or rent on time? No 07/28/2024 In the past 12 months, how m any times have you moved where you were living? 1 07/28/2024 At any time in the past 12 m [facility], were you homeless or living in a fpc (including now)? No 07/28/2024 CAGE ASSESSMENT Answer [...] drink first t idalia in the morning (EYE-HADOOP ANALYST) to steady your nerves or to get [...] Call Disease Status: Established Patient Clinic Location: [facility] Disease Type: Head & Neck Services Provided: Transportation Assistance Education Provided: Transportation Community Referrals: Medicaid Travel Reimbursement Intervention Level: 3 Units (1 unit = 15 minutes): 2 Narrative: COLD STRIP FEEDER received call from pt stating that he [...] would need assistance with scheduling medicaid transportation. COLD STRIP FEEDER expressedunderstanding and was able to scheduled pt transportation for upcoming appts on 08/04 with PCP (pickup at 915AM/confirmation [id number]), 08/10 (picker packer 11AM/ confirmation [phone]), and 08/12 (picker packer 6AM/confirmation [id number]). COLD STRIP FEEDER provided pt with confirmations and picker packer times. Pt was appreciative for the assistance. Pt disclosed that he most likely would not be moving forward with surgery on his leg as his provider was pleased with its healing. COLD STRIP FEEDER expressed gladness in this and discussed with pt the positive aspect of not having to have a surgery. Pt was agreeable to this and glad. Pt expressed that he was anxious regarding his current heart complications and was unsure what was going on or what will happen. COLD STRIP FEEDER validated pts feelings and discussed with pt the positive aspect that his providers are aware of what is going on and that he is taking steps to get it taken care of. Pt was understanding and agreeable of this. COLD STRIP FEEDER offered ongoing support to pt and encouraged him to follow up should additional needs arise. COLD STRIP FEEDER encouraged pt to be mindful of how he was feeling and to follow up with his providers as needed. Pt was appreciative for the support and denied additional questions or needs at this time and was agreeable to following up as needed. COLD STRIP FEEDER remains available ongoing prn. Tamar Cruz LINUX ADMINISTRATOR, COLD STRIP FEEDER [phone] documented in this encounter Plan of Treatment Upcoming Encounters Date Type Department Care Team (Late st Contact Info) Description 10/06/2024 11:45 AM EDT Office Visit Pav CC Head, Neck & Respiratory 800 [facility], 2nd [place] [phone] Matias Eldridge MD 800 [facility] [address] [place] [address] 12/13/2024 10:00 AM EDT Office Visit Pav CC Head, Neck & Respiratory 800 [facility], 2nd [place] [address] Viky Menon MD 800 [facility] [address] [place] [address] 12/13/2024 1:00 PM EDT Appointment PAV CC Radiation 800 [facility]. [id number] [place] [address] Imer Sevilla MD 800 [facility] [address] [place] [address] documented as of this encounter Visit Diagnoses [...] documented as of this encounter Care Teams Deputy Grand Jury Relationship Specialty Start Date End Date Carson Ibrahim MD [address] [facility] [address] [place] [address] PCP - General 11/20/23 Imer Sevilla MD 800 [facility] [address] [place] [address] Consulting Physician Radiation Oncology 02/27/24 Viky Menon MD 800 [facility] Kacie [facility] [address] [place] [address] Consulting Physician Medical Oncology 04/21/24 Amelia Freeman, RN Registered Nurse Hematology and Oncology 05/13/24 documented as of this encounter
--- OUTSIDE RECORDS SUMMARY | 2024-09-27 10:47 | XMS_ITS | Encounter Summary ---
Author Organization [facility] Address [address] [place] [address] Care Team Providers Care Ski Lift Operator Name Role Phone Carson Ibrahim MD Primary Care Provider + [phone] Imer Sevilla MD Unavailable Viky Menon MD Unavailable [phone] Amelia Freeman RN Unavailable Unavailable Encounter Details [...] any time in the past 12 m [facility], were you homeless or living in a [...] drink first t idalia in the morning (EYE-MERCHANDISE MANAGER) to steady your nerves or to get rid of a hangover? 0 07/22/2024 CAGE Questionnaire Score 0 025 Utilities Answer Date Recorded In the past 12 months has th e electric, gas, oil, or water [employer] threatened to shut off services in your [...] Respiratory 800 [facility], 2nd [place] [address] Matias Eldridge MD 800 [facility] [address] [place] [address] 12/13/2024 10:00 AM EDT Office Visit Pav CC Head, Neck & Respiratory 800 [facility], 2nd [place] [address] Viky Menon MD 800 [facility] [address] [place] [address] 12/13/2024 1:00 PM EDT Appointment PAV CC Radiation 800 [facility]. [id number] [place] [address] Imer Sevilla MD 800 [facility] [address] [place] [address] documented as of this encounter Visit Diagnoses [...] documented as of this encounter Care Teams Ski Lift Operator Relationship Specialty Start Date End Date Carson Ibrahim MD 1210 [facility] [address] [place] [address] PCP - General 11/20/23 Imer Sevilla MD 800 [facility] [address] [place] [address] Consulting Physician Radiation Oncology 02/27/24 Viky Menon MD 800 [facility] [address] [place] [address] Consulting Physician Medical Oncology 04/21/24 Amelia Freeman, RN Registered Nurse Hematology and Oncology 05/13/24 documented as of this encounter
--- OUTSIDE RECORDS SUMMARY | 2024-09-27 10:47 | XMS_ITS | Clinical Summary ---
Author Organization [employer] ([place], [place], [place], [place]) Address [address] [place] [address] Care Team Providers Care Sale Professional Digital Marketing Name Role Phone Unavailable Primary Care Provider Unavailabl e Social History Tobacco Use Types Packs/Day Years Used Date Smoking Tobacco: Never Assessed Food Insecurity Answer Date Recorded Food run [...] Date Mckay rded Speak language other than Yoruba at home Not on file 11/07/2023 Want help with school or training Not on file 11/07/2023 Substance Use Answer Date Recorded Used [...] Tdap) 1993 Lipid Panel 2009 COVID-19 VACCINE ( season) 11/23/202308/2020 Pneumococcal 50+ years (1 of 1 - PCV) 02/04/2024 Shingles Vaccine (Zoster) (1 of 2) 02/04/2024 Influenza Vaccine (#1) 2024
--- OUTSIDE RECORDS SUMMARY | 2024-09-27 10:47 | XMS_ITS | Patient Health Record ---
Author Organization [facility] Address [address] [facility] 36 [facility] [address] [place] [phone] Care Team Providers Care Media Intern Name Role Phone Mine Ibrahimian Primary Care Provider Allergies Allergen (clinical drug ingredient) Drug/Non Drug Allergy documented on EMR Reaction Allergy Type Onset Date Status Penicillin Rash Drug Allergy Active Results Component Value Reference Range Notes P-TSH reflex to FT4 Reviewed date:07/22/2024 11:07:25 AM Interpretation:Normal Performing Lab: Notes/Report: Test performed by [facility] [address] [place] [address] , [address], [place] [address] Calos Chacon MD, Director College CLIA: [id number] TSH reflex to FT4 1.59 0.43-5.25 mU/L P-Culture, Blood Reviewed date:07/26/2024 05:35:40 PM Interpretation:No Growth Performing Lab: Notes/Report: Test performed by [facility] [address] [place] [address] , [address], [place] [address] Calos Chacon MD, Director College CLIA: [id number] Specimen Source Blood Culture, Blood See Below No Growth at 24 hours No Growth at 5 Days P-Comprehensive Metabolic Pa emani (CMP) Reviewed date:07/22/2024 11:07:25 AM Interpretation:glu 143, leslee 8.2, a/g 0.9 Performing Lab: Notes/Report: Test performed by [facility] [address] [place] [address] , [address], [place] [address] Calos Chacon MD, Director College CLIA: [id number] Sodium 139 135-145 mmol/L Potassium 4.5 3.5-5.3 [...] - 38 platlet 446 100 - 400 Urinalysis - Inhouse Reviewed date:05/25/2024 02:35:18 PM [...] 11:11:02 AM Interpretation:Negative Performing Lab: Notes/Report: Negative H-DIARRHEA PANEL Reviewed date:07/05/2024 03:03:52 PM Interpretation: Performing Lab: Notes/Report: AEROMONAS Not Detected NotDetected CAMPYLOBACTER Not Detected NotDetected CLOSTR DIFFICIL Detected NotDetected NOTIFICATION RESULT Results called to: DAYNE on 07/03/24 at 1151 By Greg Arceo MLT PLESIOMONAS Not Detected NotDetected SALMONELLA, PCR Not [...] Not Detected NotDetected SAPOVIRUS Not Detected NotDetected HCVAB Reviewed date:07/02/2024 02:34:15 PM Interpretation: Performing Lab: Notes/Report: HCVAB NEGATIVE Negative All initial positives will be confirmed by 2 retests, if still positive they will be confirmed by [facility] Sendout. H-CMP Reviewed date:07/05/2024 03:03:52 PM Interpretation: Performing [...] AGRATIO 0.7 1.1-1.8 ALP 64 38-126 U/L H-Vancomycin, Trough Reviewed date:07/05/2024 03:03:52 PM Interpretation: Performing Lab: Notes/Report: VANCT 15.5 5.0-10.0 ug/mL H-Vancomycin, Peak Reviewed date:07/05/2024 03:03:52 PM Interpretation: Performing Lab: Notes/Report: VANCP 32.1 11-39 ug/ml H-CBC Reviewed date:07/05/2024 03:03:52 PM Interpretation: Performing [...] K/mm3 BA# 0.0 0-0.2 K/mm3 NRBC# 0 H-BMP Reviewed date:07/05/2024 03:03:52 PM Interpretation: Performing Lab: Notes/Report: NA 136 136-145 mmol/L K 3.7 3.5-5.1 mmoL/L CL 101 98-107 mmol/L CO2 28 22.0-30.0 mmol/L GAP 10.7 5-15 mEq/L BUN 6 9-20 mg/dl CREATT 0.60 0.66-1.25 mg/dl CRCLE 198 50-200 mL/min GFRAA 173 >60 ML/MIN EGFR 143 >60 ml/min GLU 158 74-100 mg/dl CA 8.5 8.4-10.2 mg/dl Reason For Referral Reason Echo done at Diagnosis 1 HFrEF (heart failure with reduced ejection fraction) (I50.20) Referral Organization [facility] Referring Provider First Name Carson Referring Provider Last Name Patrice Referring Provider [facility] Referred Provider Mildred Martin Referred Provider Specialty Cardiovascul ar Disease General Notes Eliana Najera 2024 01:16:57 PM > faxed to [facility] Scheduling, Eliana Najera 08/06/2024 03:35:45 PM > [...] back pain, unspe cified (M54.50) Referral Organization [facility] Referring Provider First Name Carson Referring Provider Last Name Patrice Referring Provider [facility] ctice Referred Provider Jarvis Dasilva Referred Provider Specialty Pain Managem ent General Notes Eliana Najera 2024 11:09:01 AM > faxed to [facility] Pain Management Referral Priority Routine Medications Medication SIG (Take, Route, Fr equency, Duration) Notes Start Date End Date Status oxyCODONE HCl 15 MG 1 tablet Orally every 4 hrs Active Wheelchair - as directed 01/28/2024 Acti ve Famotidine 20 MG 1 tablet at bedtime as needed Orally Twice a day; Duration: 30 day(s) Active Immunizations Vaccine Route Administration Date Status Comme nts COVID 19 Gurpreet Unknown 06/27/2020 Administered Fluzone Quad (6months&older) IM Intramuscular 01/11/2020 Administered Problems Problem Type SNOMED Code ICD Code Onset Dates Problem Status W/U Status Risk Notes Problem Essential hypertension (90391623) Essential hypertension (I10) Active confirmed Problem Morbid obesity (676248967) Morbid obesity (E66.01) Active confirmed Problem Arthropathy of lumbar facet joint (447242949) Lumbar facet arthropathy (M47.816) Active confirmed Problem Obesity due to excess calories (536542727) Other obesity due to excess calories (E66.09) Active confirmed Problem Mixed hyperlipidemia (811269773) Mixed hyperlipidemia (E78.2) Active confirmed Problem Chronic pain (63689418) Other chronic pain (G89.29) Active confirmed Problem Anemia (570646411) Anemia, unspecified type (D64.9) Active confirmed Problem Type II diabetes mellitus without complication (381055780) Type 2 diabetes mellitus without complication, without long-term current use of insulin (E11.9) Active confirmed Problem Spinal stenosis of lumbar region (10503547) Spinal stenosis of lumbar region without neurogenic claudication (M48.061) Active confirmed Problem Lumbar spinal stenosis (10123936) Lumbar foraminal stenosis (M48.061) Active confirmed Problem Spinal stenosis of lumbar region (66200213) Foraminal stenosis of lumbar region (M48.061) Active confirmed Problem Secondary malignant neoplastic disease (708867193) 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) Active confirmed Problem Systolic heart failure (703322580) HFrEF (heart failure with reduced ejection fraction) (I50.20) Active confirmed Vital Signs Heart Rate 64 /min 09/01/2024 Blood pressure diastolic 80 mm Hg 09/01/2024 Height 69.5 in 09/01/2024 Blood pressure systolic 130 mm Hg 09/01/2024 Weight 197 lbs 09/01/2024 BMI 28.67 kg/m2 09/01/2024 Encounters Encounter Location Date Provider Diagnosis [facility] [address] [place] [id number] 01/23/2024 Carson Du Pont 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 C79.89 [facility] [facility] [address] [place] [id number] 05/25/2024 Carson Du Pont Dysuria R30.0 ; Pyur ia R82.81 ; Heartburn R12 and Type 2 diabetes mellitus without complication, without long-term current use of insulin E11.9 [facility] [address] [place] [id number] 06/23/2024 Carson Du Pont Acute bilateral low back pain without sciatica M54.50 and Muscle spasm of back M62.830 [facility] [address] [place] [id number] 07/19/2024 Carson Du Pont Bacteremia R78.81 ; Methicillin resistant Staphylococcus aureus infection as the cause of diseases classified elsewhere B95.62 ; Acute UTI N39.0 ; C. difficile colitis A04.72 ; Generalized weakness R53.1 ; Anemia, unspecified type D64.9 and Right-sided low back pain without sciatica, unspecified chronicity M54.50 [facility] 0 [facility] [address] [place] [id number] 08/04/2024 Carson Du Pont Infection of clavicl e M86.9 ; HFrEF (heart failure with reduced ejection fraction) I50.20 and BMI 29.0-29.9,adult Z68.29 [facility] [address] [facility] [address] [place] [id number] 09/01/2024 Carson Du Pont HFrEF (heart failure with reduced ejection fraction) I50.20 ; Other chronic pain G89.29 ; Low back pain, unspecified M54.50 ; 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 ; Lumbar foraminal stenosis M48.061 ; Spinal stenosis of lumbar region without neurogenic claudication M48.061 ; Bulging lumbar disc M51.369 and BMI 28.0-28.9,adult Z68.28 [facility] [address] [place], [place] [id number] 10/22/2023 Carson Du Pont [facility] [address] [place], [place] [id number] 01/19/2024 Carson Du Pont [facility] [address] [place], [place] [id number] 01/20/2024 Carson Du Pont [facility] [address] [place], [place] [id number] 01/28/2024 Carson Du Pont [facility] [address] [place], [place] [id number] 02/05/2024 Carson Du Pont [facility] [address] [place], [place] [id number] 03/04/2024 Carson Du Pont [facility] [address] [place], [place] [id number] 06/29/2024 Carson Du Pont [facility] [address] [place], [place] [id number] 07/22/2024 Carson Du Pont [facility] [address] [place], [place] [id number] 09/09/2024 Carson Du Pont Assessments Encounter Date Diagnosis (ICD Code) Assessment [...] Daptomycin, keep f/u appt. with ID at 09/01/2024 Other chronic pain (ICD-10 - G89.29) 09/01/2024 HFrEF (heart failure with reduced ejection fraction) (ICD-10 - I50.20) Recent Echo from and stress test from [facility] reviewed with patient in office today. Patient [...] [address], [place], [id number], Insurance Providers Payer Name Payer Address Payer Phone Subscriber Number Group Number Insured Name Patient Relationship to Insured Coverage Start Date Coverage End Date [employer] [facility] [address] [place], [place] [id number] PERRY DANIELS Self - patient is the [...] Carcinom a 10/14/2019 Hospitalization History Reason Date(Month/Year) [facility] - Neck Surgery 10/13- [facility] ER - UTI 11/08/2018 kidney stone surgery
--- OUTSIDE RECORDS SUMMARY | 2024-09-27 10:47 | XMS_ITS | Encounter Summary ---
Author Organization Healthcare Address [address] [place] [address] Care Team Providers Care Industrial Hygienist Name Role Phone Carson Ibrahim MD Primary Care Provider + [phone] Imer Sevilla MD Unavailable Viky Menon MD Unavailable [phone] Amelia Freeman RN Unavailable Unavailable Reason for Visit * Reason Comments Social Work/navigation Follow-up Encounter Details Date Type Department Care Team (Late st Contact Info) Description 08/04/2024 Social Work Psych Oncology [address] [place] [address] Tamar Cruz Social History Tobacco Use Types [...] drink first t idalia in the morning (EYE-SWIMMING POOL SERVICER) to steady your nerves or to get [...] Disease Status: Established Patient Clinic Location: [facility] Disease Type: Head & Neck Services Provided: Insurance Assistance Intervention Level: 2 Units (1 unit = 15 minutes): 2 Narrative: PROCESS STEWARD received call from pt stating that he was needing paperwork completed by his provider for his insurance. Pt requested fax number for clinic. PROCESS STEWARD provided pt with fax number for [facility] ENT and made provider RN aware of incoming paperwork. Pt was appreciative for the assistance. PROCESS STEWARD inquired further of pt wellbeing and additional needs. Pt stated he was doing well at this time and denied additional needs. PROCESS STEWARD encouraged pt to follow up should additional needs arise. PROCESS STEWARD remains available ongoing prn. Tamar Cruz OFFICE COMMUNICATION PROFESSOR, PROCESS STEWARD [phone] documented in this encounter Plan of Treatment Upcoming Encounters Date Type Department Care Team ([facility] st Contact Info) Description 10/06/2024 11:45 AM EDT Office Visit Pav CC Head, Neck & Respiratory 800 [facility], 2nd [place] [address] Matias Eldridge MD 800 [facility] [address] [place] [phone] 12/13/2024 10:00 AM EDT Office Visit Pav [facility] Head, Neck & Respiratory 800 [facility], 2nd [place] [address] Viky Menon MD 800 [facility] Liz Hester [facility] [address] [place] [address] 12/13/2024 1:00 PM EDT Appointment PAV CC Radiation 800 [facility]. [id number] [place] [address] Imer Sevilla MD 800 [facility] [address] [place] [address] documented as of this encounter [...] documented as of this encounter Care Teams Industrial Hygienist Relationship Specialty Start Date End Date Carson Ibrahim MD [facility] [place] [phone] PCP - General 11/20/23 Imer Sevilla MD [address] [phone] Consulting Physician Radiation Oncology 02/27/24 Viky Menon MD 800 [facility] Liz Hester [facility] 134 [place] [phone] Consulting Physician Medical Oncology 04/21/24 Amelia Freeman, RN Registered Nurse Hematology and Oncology 05/13/24 documented as of this encounter
--- OUTSIDE RECORDS SUMMARY | 2024-09-27 10:47 | XMS_ITS | Encounter Summary ---
Author Organization Healthcare Address [address] [place] [address] Care Team Providers Care Airline Pilot Name Role Phone Carson Ibrahim MD Primary Care Provider [phone] Imer Sevilla MD Unavailable Viky Menon MD Unavailable [phone] Amelia Freeman RN Unavailable Unavailable Encounter Details Date Type Department Care Team (Late st Contact Info) Description 07/05/2024 Orders Only External Location [address] [place] [address] Carson Ibrahim MD 1210 [facility] [address] [place] [address] Social History Tobacco Use Types [...] in a longterm (including now)? No 01/08/2024 CAGE ASSESSMENT Answer [...] drink first t idalia in the morning (EYE-ORTHOPAEDIC PHYSICIAN ASSISTANT) to steady your nerves or to get [...] Upcoming Encounters Date Type Department Care Team ([facility] st Contact Info) Description 10/06/2024 11:45 AM EDT Office Visit Pav CC Head, Neck & Respiratory 800 [facility], 2nd [place] [phone] Matias Eldridge MD 800 [facility] 2nd [place] [address] 12/13/2024 10:00 AM EDT Office Visit Pav CC Head, Neck & Respiratory 800 [facility], 2nd [place] [phone] Viky Menon MD 800 [facility] [address] [place] [phone] 12/13/2024 1:00 PM EDT Appointment P[facility] CC Radiation 800 [facility]. [id number] [place] [address] Imer Sevilla MD 800 [facility] [address] [place] [address] documented as of this encounter Procedures Procedure [...] documented as of this encounter Care Teams Airline Pilot Relationship Specialty Start Date End Date Carson Ibrahim MD [address] [phone] PCP - General 11/20/23 Imer Sevilla MD 800 [facility] [address] [place] [phone] Consulting Physician Radiation Oncology 02/27/24 Viky Menon MD 800 [facility] Liz Hester [facility] [address] [place] [address] Consulting Physician Medical Oncology 04/21/24 Amelia Freeman, RN Registered Nurse Hematology and Oncology 05/13/24 documented as of this encounter
--- OUTSIDE RECORDS SUMMARY | 2024-09-27 10:47 | XMS_ITS | Encounter Summary ---
Author Organization Healthcare Address [address] [place] [address] Care Team Providers Care Rubber Stamp Die Inspector Name Role Phone Carson Ibrahim MD Primary Care Provider + [phone] Imer Sevilla MD Unavailable Viky Menon MD Unavailable [phone] Amelia Freeman RN Unavailable Unavailable Encounter Details Date Type Department Care Team (Late st Contact Info) Description 06/30/2024 Orders Only External Location [address] [place] [address] Provider, External Social History Tobacco Use Types [...] to sleep or slept in a senior living (including now)? No 01/08/2024 CAGE ASSESSMENT Answer [...] drink first t idalia in the morning (EYE-WATERPROOFING MIXER) to steady your nerves or to get rid of a hangover? 0 02/16/2024 CAGE Questionnaire Score 0 024 Utilities Answer Date Recorded In the past 12 months has th e [employer], gas, oil, or water company threatened to [...] Pav CC Head, Neck & Respiratory 800 [facility], 2nd [place] [phone] Matias Eldridge MD 800 [facility] [address] [place] [address] 12/13/2024 10:00 AM EDT Office Visit Pav CC Head, Neck & Respiratory 800 [facility], 2nd [place] [address] Viky Menon MD 800 [facility] [address] [place] [address] 12/13/2024 1:00 PM EDT Appointment P[facility] CC Radiation 800 [facility]. [id number] [place] [phone] Imer Sevilla MD 800 [facility] [address] [place] [address] documented as of this encounter Procedures Procedure [...] documented as of this encounter Care Teams Rubber Stamp Die Inspector Relationship Specialty Start Date End Date [place], Carson T, MD 1210 [facility] [address] [place] [address] PCP - General 11/20/23 Imer Sevilla MD 800 [facility] [address] [place] [address] Consulting Physician Radiation Oncology 02/27/24 Viky Menon MD [address] [facility] [address] [place] [address] Consulting Physician Medical Oncology 04/21/24 Amelia Freeman, RN Registered Nurse Hematology and Oncology 05/13/24 documented as of this encounter
--- OUTSIDE RECORDS SUMMARY | 2024-09-27 10:47 | XMS_ITS | Encounter Summary ---
Author Organization Healthcare Address [address] [place] [address] Care Team Providers Care Yacht Rigger Name Role Phone Carson Ibrahim MD Primary Care Provider + [phone] Imer Sevilla MD Unavailable Viky Menon MD Unavailable [phone] Amelia Freeman RN Unavailable Unavailable Encounter Details Date Type Department Care Team (Late st Contact Info) Description 08/09/2024 Telephone [facility] CC Radiation [id number] [place] [address] Imer Sevilla MD [address] [place] [address] Social History Tobacco Use Types [...] any time in the past 12 m [facility], were you homeless or living in a [...] drink first t idalia in the morning (EYE-SECURITY GUARDS DISPATCHER) to steady your nerves or to get [...] Upcoming Encounters Date Type Department Care Team ([facility] st Contact Info) Description 10/06/2024 11:45 AM EDT Office Visit Pav CC Head, Neck & Respiratory 800 [facility], 2nd [place] [address] Matias Eldridge MD 800 [facility] [address] [place] [address] 12/13/2024 10:00 AM EDT Office Visit Pav [facility] Head, Neck & Respiratory 800 [facility], 2nd [place] [phone] Viky Menon MD 800 [facility] [address] [place] [address] 12/13/2024 1:00 PM EDT Appointment P[facility] CC Radiation 800 [facility]. [id number] [place] [address] Imer Sevilla MD 800 [facility] [address] [place] [address] documented as of this encounter Visit Diagnoses [...] documented as of this encounter Care Teams Yacht Rigger Relationship Specialty Start Date End Date Carson Ibrahim MD 1210 [facility] [address] [place] [address] PCP - General 11/20/23 Imer Sevilla MD 800 [facility] [address] [place] [phone] Consulting Physician Radiation Oncology 02/27/24 Viky Menon MD 800 [facility] Liz Hester [facility] [address] [place] [address] Consulting Physician Medical Oncology 04/21/24 Amelia Freeman, RN Registered Nurse Hematology and Oncology 05/13/24 documented as of this encounter
--- OUTSIDE RECORDS SUMMARY | 2024-09-27 10:47 | XMS_ITS | Referral Summary ---
Author Organization [employer] ([place], [place], [place], [place]) Address [address] [place] [address] Care Team Providers Care Plunger Scoop Operator Name Role Phone Unavailable Primary Care Provider [...] Date Mckay rded Speak language other than Jamaican at home Not on file 11/07/2023 Want [...]
--- OUTSIDE RECORDS SUMMARY | 2024-09-27 10:47 | XMS_ITS | Encounter Summary ---
Author Organization [facility] Address [address] [place] [address] Care Team Providers Care Order Dispatcher Name Role Phone Carson Ibrahim MD Primary Care Provider + [phone] Imer Sevilla MD Unavailable Viky Menon MD Unavailable [phone] Amelia Freeman RN Unavailable Unavailable Encounter Details [...] time in the past 12 m [facility], were you homeless or living [...] drink first t idalia in the morning (EYE-TRADE EMBALMER) to steady your nerves or to get rid of a hangover? 0 07/22/2024 CAGE Questionnaire Score 0 025 Utilities Answer Date Recorded In the past 12 months has th e electric, gas, oil, or water [employer] threatened to shut off services in your [...] Pav CC Head, Neck & Respiratory 800 [facility], 2nd [place] [address] Matias Eldridge MD 800 [facility] [address] [place] [phone] 12/13/2024 10:00 AM EDT Office Visit Pav CC Head, Neck & Respiratory 800 [facility], 2nd [place] [address] Viky Menon MD 800 [facility] [address] [place] [address] 12/13/2024 1:00 PM EDT Appointment P[facility] CC Radiation 800 [facility]. [id number] [place] [address] Imer Sevilla MD [address] [facility] [address] [place] [address] documented as of this encounter Visit Diagnoses [...] documented as of this encounter Care Teams Order Dispatcher Relationship Specialty Start Date End Date Carson Ibrahim MD 1210 [facility] [address] [place] [address] PCP - General 11/20/23 Imer Sevilla MD 800 [facility] [address] [place] [address] Consulting Physician Radiation Oncology 02/27/24 Viky Menon MD 800 [facility] [address] [place] [address] Consulting Physician Medical Oncology 04/21/24 Amelia Freeman, RN Registered Nurse Hematology and Oncology 05/13/24 documented as of this encounter
--- OUTSIDE RECORDS SUMMARY | 2024-09-27 10:47 | XMS_ITS | Encounter Summary ---
Author Organization Healthcare Address [address] [place] [address] Care Team Providers Care Interactive Designer Name Role Phone Carson Ibrahim MD Primary Care Provider + [phone] Imer Sevilla MD Unavailable Viky Menon MD Unavailable [phone] Amelia Freeman RN Unavailable Unavailable Reason for Visit * Reason Comments Resource Navigation Encounter Details Date Type Department Care Team (Late st Contact Info) Description 08/09/2024 Social Work Psych Oncology [address] [place] [address] Tamar Cruz Social History Tobacco Use Types [...] a senior living (including now)? No 01/08/2024 Housing Stability Vital Sign Answer Preet e Recorded In the last 12 months, was t here a time when you were not able to pay the mortgage or rent on time? No 07/28/2024 In the past 12 months, how m any times have you moved where you were living? 1 07/28/2024 At any time in the past 12 m [facility], were you homeless or living in a senior living (including now)? No 07/28/2024 CAGE ASSESSMENT Answer [...] drink first t idalia in the morning (EYE-LEATHER WHITENER) to steady your nerves or to get [...] Call Disease Status: Established Patient Clinic Location: [facility] Disease Type: Head & Neck Services Provided: Transportation Assistance Intervention Level: 2 Units (1 unit = 15 minutes): 2 Narrative: PICKING MACHINE OPERATOR HELPER received call from pt stating that he received a call from clinic requesting he come to clinic earlier than originally planned. Pt stated new arrival time is 1230. PICKING MACHINE OPERATOR HELPER was able to contact [employer] and update pt arrival time and obtain new merchandise pickup/receiving associate time at 1030AM. PICKING MACHINE OPERATOR HELPER followed up with pt to confirm this change. Pt was appreciative for the assistance and denied additional questions or needs at this time. PICKING MACHINE OPERATOR HELPER remains available ongoing prn. Tamar Cruz CHICK GRADER, PICKING MACHINE OPERATOR HELPER [phone] documented in this encounter Plan of Treatment Upcoming Encounters Date Type Department Care Team (Late st Contact Info) Description 10/06/2024 11:45 AM EDT Office Visit Pav CC Head, Neck & Respiratory 800 [facility], 2nd [place] [phone] Matias Eldridge MD 800 [facility] [address] [place] [phone] 12/13/2024 10:00 AM EDT Office Visit [facility] Head, Neck & Respiratory 800 [facility], [address]nd [place] [address] Viky Menon MD 800 [facility] Liz Hester [facility] [address] [place] [address] 12/13/2024 1:00 PM EDT Appointment [facility] [id number] [place] [address] Imer Sevilla MD [address] [phone] documented as of this encounter Visit Diagnoses [...] documented as of this encounter Care Teams Interactive Designer Relationship Specialty Start Date End Date Carson Ibrahim MD [address] [place] [address] PCP - General 11/20/23 Imer Sevilla MD [address] [phone] Consulting Physician Radiation Oncology 02/27/24 Viky Menon MD 800 [facility] Liz [address]ester [facility] [address] [place] [address] Consulting Physician Medical Oncology 04/21/24 Amelia Freeman, RN Registered Nurse Hematology and Oncology 05/13/24 documented as of this encounter
--- OUTSIDE RECORDS SUMMARY | 2024-09-27 10:47 | XMS_ITS | Encounter Summary ---
Author Organization Healthcare Address [address] [place] [address] Care Team Providers Care Cash Office Worker Name Role Phone Carson Ibrahim MD Primary Care Provider + [phone] Imer Sevilla MD Unavailable Viky Menon MD Unavailable [phone] Amelia Freeman RN Unavailable Unavailable Encounter Details Date Type Department Care Team (Late st Contact Info) Description 06/29/2024 Orders Only External Location [address] [place] [address] Mara Schofield, DO [address] [place] [address] Social History Tobacco Use Types [...] a senior care (including now)? No 01/08/2024 CAGE ASSESSMENT Answer [...] first t idalia in the morning (EYE-CLINICAL RN LIAISON) to steady your nerves or to get [...] Respiratory 800 [facility], [address]nd [place] [phone] Matias Eldridge MD 800 [facility] [address] [place] [address] 12/13/2024 10:00 AM EDT Office Visit [facility] Head, Neck & Respiratory 800 [facility], [address]nd [place] [phone] Viky Menon MD 800 [facility] [address] [place] [phone] 12/13/2024 1:00 PM EDT Appointment P[facility] Radiation [address] [facility]. [id number] [place] [phone] Imer Sevilla MD 800 [facility] [address] [place] [phone] documented as of this encounter Procedures Procedure Name Priority Date/Time Associated Diagnosis Comments CT OUTSIDE IMAGES 06/29/2024 4:30 PM EDT documented in this encounter Results * CT OUTSIDE IMAGES (06/29/2024 4:30 PM EDT) Anatomical Region Laterality Modality Computed Tomogra phy 06/29/2024 4:30 PM EDT us Mara LAMB CT PROCEDURES Final Result documented in this [...] documented as of this encounter Care Teams Cash Office Worker Relationship Specialty Start Date End Date Carson Ibrahim MD [address] [facility] [address] [place] [address] PCP - General 11/20/23 Imer Sevilla MD 800 [facility] [address] [place] [phone] Consulting Physician Radiation Oncology 02/27/24 Viky Menon MD 800 [facility] Liz Hester [facility] [address] [place] [phone] Consulting Physician Medical Oncology 04/21/24 Amelia Freeman, RN Registered Nurse Hematology and Oncology 05/13/24 documented as of this encounter
--- OUTSIDE RECORDS SUMMARY | 2024-09-27 10:48 | XMS_ITS | Encounter Summary ---
Author Organization [facility] Address [address] [place] [address] Care Team Providers Care Epidemiology Internship Name Role Phone Carson Ibrahim MD Primary Care Provider + [phone] Imer Sevilla MD Unavailable Viky Menon MD Unavailable [phone] Amelia Freeman RN Unavailable Unavailable Encounter Details Date Type Department Care Team (Latest Contact Info) Description 09/23/2024 Travel Social History Tobacco Use Types Packs/Day [...] drink first t idalia in the morning (EYE-FACING GRINDER) to steady your nerves or to get [...] Pav [facility] Head, Neck & Respiratory 800 [facility], [address]nd [place] [phone] Matias Eldridge MD 800 [facility] [address]nd [place] [address] 12/13/2024 10:00 AM EDT Office Visit Pav [facility] Head, Neck & Respiratory [address] [facility], [address]nd [place] [phone] Viky Menon MD 800 [facility] [address] [place] [phone] 12/13/2024 1:00 PM EDT Appointment P[facility] CC Radiation [address] [facility]. [id number] [place] [phone] Imer Sevilla MD 800 [facility] [address] [place] [phone] documented as of this encounter Visit Diagnoses [...] documented as of this encounter Care Teams Epidemiology Internship Relationship Specialty Start Date End Date Carson Ibrahim MD [address] [facility] [address] [place] [address] PCP - General 11/20/23 Imer Sevilla MD 800 [facility] [address] [place] [phone] Consulting Physician Radiation Oncology 02/27/24 Viky Menon MD 800 [facility] Kacie [facility] [address] [place] [address] Consulting Physician Medical Oncology 04/21/24 Amelia Freeman, RN Registered Nurse Hematology and Oncology 05/13/24 documented as of this encounter
--- OUTSIDE RECORDS SUMMARY | 2024-09-27 10:48 | XMS_ITS | Data Portability ---
Author Organization [facility] Address [address] [place] [address] Assessment Encounter Date Assessment Date Assessment LastModified by Organization Details LastModified Time 02/06/2024 02/06/2024 7.4% a1c [email or web address] Not available 01/23 22:24:41 Plan of Treatment Reminders Order Date Submit Date Provider Last Modified By Organization Details Last Modified Time Details Appointments None recorded. Lab CMP, serum or plasma 2023 024 [facility], [address], [address], [place], [address], 4 10:08:33 CBC w/ auto diff 2023 024 [facility], [address], [place] [address], [place], [address], 4 10:08:33 renal function panel, serum 2023 024 [facility], [address], [place] [address], [place], [address], 4 07:37:54 urinalysis , dipstick 2023 024 [facility], [address] [place], [address], 4 18:22:36 urinalysis complete, reflex culture 2023 024 [facility], [address], [address], [place], [address], 4 06:37:31 surgical pathology study 2023 024 [email or web address], [address], [place] [address], [place], [address], 4 14:07:02 urinalysis , dipstick [address], [address] [place], [address], 4 18:38:09 microalbum in/creatin ine, mass ratio, urine [address], [address] [place], [address], 4 18:38:09 culture, urine 2023 024 [facility], [address], [place] [address], [place], [address], 4 03:35:42 HbA1c (hemoglobi n A1c), blood [address], [address] [place], [address], 4 22:25:18 RPR (rapid plasma reagin), serum 2023 024 [facility], [address], [address], [place], [address], 4 03:36:19 ferritin, serum or plasma 2023 024 [facility], [address], [place] [address], [place], [address], 4 03:36:23 iron + total iron-cristal ng capacity (TIBC), serum 2023 [facility], [address], [place] [address], [place], [address], 4 03:36:15 borrelia burgdorfer i IgG + IgM + total panel, IA, serum 2023 [facility], [address], [place] [address], [place], [address], 4 03:36:19 iga, quantitati ve, serum 2023 [facility], [address], [place] [address], [place], [address], 4 03:36:23 erythrocyt e sedimentat ion rate by westergren method 2023 [facility], [address], [place] [address], [place], [address], 4 03:36:22 ccp (cyclic citrullina obdulia peptide) iga+igg, serum 2023 024 [facility], [address], [place] [address], [place], [address], 4 03:36:20 unlisted lab - C-anca+P-a nca w/reflex 2023 [facility], [address], [place] [address], [place], [address], 4 03:36:17 C reactive protein, QN, serum or plasma 2023 [facility], [address], [place] [address], [place], [address], 4 03:36:24 HIMA (antinucle ar antibodies ) screen, serum 2023 024 [facility], [address], [place] [address], [place], [address], 4 03:36:21 CBC w/ auto diff 2023 [facility], [address], [place] [address], [place], [address], 4 03:36:13 CMP, serum or plasma 2023 [facility], [address], [place] [address], [place], [address], 4 03:36:14 C3 + C4 (complemen t), serum 2023 [facility], [address], [place] [address], [place], [address], 4 03:36:16 rf (rheumatoi d factor), serum 2023 [facility], [address], [place] [address], [place], [address], 4 03:36:18 PT/PTT, plasma 2023 [facility], [address], [place] [address], [place], [address], 4 03:36:15 Referral community health worker referral 2023 024 [email or web address] Not available 5 11:04:[address] referral 2023 024 Juan C Ferraro, [address] [place] [address] , [address], [place], [address], 5 15:17:02 Procedures None recorded. Surgeries None recorded. Imaging None recorded. Medication Orders insulin glargine (U-100) 100 unit/mL (3 mL) subcutaneo us pen 2023 024 [facility], [address] [place] [address], [place], [address], 4 14:50:37 prednisone 20 mg tablet 2023 [facility], [address] [place] [address], [place], [address], 4 14:50:37 doxycyclin e monohydrat e 100 mg tablet 2023 [facility], [address] [place] [address], [place], [address], 4 14:50:37 Patient TargetsNo targets recorded. Patient Instructions Encounter Date Encounter Id Patient Instructions Last Modified By Organization Details Last Modified Time 02/06/2024 [id number] learning about healthy weight [email or web address] Not available 02/06/2024 14:13:09 body mass index: care instructions Not available 02/06/2024 14:13:09 learning about type 2 diabetes [email or web address] Not available 02/06/2024 14:45:50 type 2 diabetes: care instructions Not available 02/06/2024 14:45:50 rash: care instructions [email or web address] Not available 02/06/2024 14:23:30 All questions answered and pt/guardian satisfied with treatment plan. Call with changes RTC or ED if symptoms change or worsen Keep next interval checkup Cont. chronic meds as prescribed Chronic conditions are stable Discussed natural and expected course of this diagnosis and need to alert the office if symptoms do not follow expected course or if any worsens [email or web address] Not available 02/15/2024 22:25:26 02/11/2024 [id number] learning about type 2 diabetes [email or web address] Not available 02/11/2024 13:25:32 type 2 diabetes: care instructions [email or web address] Not available 02/11/2024 13:25:32 acute kidney injury: care instructions [email or web address] Not available 02/11/2024 13:25:32 All questions answered and pt/guardian satisfied with treatment plan. Call with changes RTC or ED if symptoms change or worsen Keep next interval checkup Cont. chronic meds as prescribed Chronic conditions are stable Discussed natural and expected course of this diagnosis and need to alert the office if symptoms do not follow expected course or if any worsens Not available 02/15/2024 22:29:31 03/08/2024 [id number] learning about type 2 diabetes [email or web address] Not available 03/18/2024 20:35:20 type 2 diabetes: care instructions Not available 03/18/2024 20:35:20 acute kidney injury: care instructions [email or web address] Not available 03/08/2024 11:07:04 All questions answered and pt/guardian satisfied with treatment plan. Call with changes RTC or ED if symptoms change or worsen Keep next interval checkup Cont. 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 Referral for [place] kidney injury Referring Physician: [facility], Encounter Date: 02/11/2024 Community Health Worker Refe rral for Lack of access to transportation Referring Physician: [facility], Encounter Date: 03/08/2024 Results Created Date Observation Date Name Description Value Unit Range Abnormal Flag Note LastModifiedBy Organization Detail LastModifiedTime 02/06/2002/07/2024 URINE CULTU REPOLA NE urine culture, routine Final report Not Available [facility] ([facility]) [address] [place], [address], 02/08/2024 03:35:41 02/06/2002/07/2024 URINE CULTU RE ROUTI NE result 1 COMMEN T Mixed uroge nital kavin 25,00 0-50, 000 colon y formi ng units per mL Not Available [facility] ([facility]) [address] [place], [address], 02/08/2024 03:35:41 02/06/2002/07/2024 CBC WITH DIFFE RENTI AL/PL ATELE T WBC 12.5 x10e3 /uL 3.4-10 .8 above high normal Not Available [facility] ([facility]) [address] [place], [address], 02/10/2024 03:36:13 02/06/20 24 02/07/2024 CBC WITH DIFFE RENTI AL/PL ATELE T RBC 4.59 x10e6 /uL 4.14-5 .80 normal Not Available [facility] ([facility]) [address] [place], [address], 02/10/2024 03:36:13 02/06/20 24 02/07/2024 CBC WITH DIFFE RENTI AL/PL ATELE T hemoglobin 13.2 g/dL 13.0-1 7.7 normal Not Available [facility] ([facility]) [address] [place], [address], 02/10/2024 03:36:13 02/06/20 24 02/07/2024 CBC WITH DIFFE RENTI AL/PL ATELE T hematocrit 40.2 % 37.5-5 1.0 normal Not Available [facility] ([facility]) [address] [place], [address], 02/10/2024 03:36:13 02/06/20 24 02/07/2024 CBC WITH DIFFE RENTI AL/PL ATELE T MCV 88 fL 79-97 normal Not Available [facility] ([facility]) [address] [place], [address], 02/10/2024 03:36:13 02/06/20 24 02/07/2024 CBC WITH DIFFE RENTI AL/PL ATELE T MCH 28.8 pg 26.6-3 3.0 normal Not Available [facility] ([facility]) [address] [place], [address], 02/10/2024 03:36:13 02/06/20 24 02/07/2024 CBC WITH DIFFE RENTI AL/PL ATELE T MCHC 32.8 g/dL 31.5-3 5.7 normal Not Available [facility] ([facility]) [address] [facility], [place], [address], 02/10/2024 03:36:13 02/06/20 24 02/07/2024 CBC WITH DIFFE RENTI AL/PL ATELE T RDW 13.1 % 11.6-1 5.4 Not Available [facility] ([facility]) [address] [facility], [place], [address], 02/10/2024 03:36:13 02/06/20 24 02/07/2024 CBC WITH DIFFE RENTI AL/PL ATELE T platelets 668 x10e3 /uL 150-45 0 above high normal Not Available [facility] ([facility]) [address] [facility], [place], [address], 02/10/2024 03:36:13 02/06/20 24 02/07/2024 CBC WITH DIFFE RENTI AL/PL ATELE T neutrophils 71 % not estab. normal Not Available [facility] ([facility]) [address] [facility], [place], [address], 02/10/2024 03:36:13 02/06/20 24 02/07/2024 CBC WITH DIFFE RENTI AL/PL ATELE T lymphs 17 % not estab. normal Not Available [facility] ([facility]) [address] [facility], [place], [address], 02/10/2024 03:36:13 02/06/20 24 02/07/2024 CBC WITH DIFFE RENTI AL/PL ATELE T monocytes 8 % not estab. normal Not Available [facility] ([facility]) [address] [facility], [place], [address], 02/10/2024 03:36:13 02/06/20 24 02/07/2024 CBC WITH DIFFE RENTI AL/PL ATELE T eos 2 % not estab. normal Not Available [facility] ([facility]) [address] [facility], [place], [address], 02/10/2024 03:36:13 02/06/20 24 02/07/2024 CBC WITH DIFFE RENTI AL/PL ATELE T basos 1 % not estab. normal Not Available [facility] ([facility]) [address] [facility], [place], [address], 02/10/2024 03:36:13 02/06/20 24 02/07/2024 CBC WITH DIFFE RENTI AL/PL ATELE T immature cells TREE FELLER Not Available [facility] ([facility]) [address] [facility], [place], [address], 02/10/2024 03:36:13 02/06/20 24 02/07/2024 CBC WITH DIFFE RENTI AL/PL ATELE T neutrophils (absolute) 9.1 x10e3 /uL 1.4-7. 0 above high normal Not Available [facility] ([facility]) [address] [place], [address], 02/10/2024 03:36:13 02/06/20 24 02/07/2024 CBC WITH DIFFE RENTI AL/PL ATELE T lymphs (absolute) 2.1 x10e3 /uL 0.7-3. 1 normal Not Available [facility] ([facility]) [address] [place], [address], 02/10/2024 03:36:13 02/06/20 24 02/07/2024 CBC WITH DIFFE RENTI AL/PL ATELE T monocytes(ab solute) 0.9 x10e3 /uL 0.1-0. 9 normal Not Available [facility] ([facility]) [address] [place], [address], 02/10/2024 03:36:13 02/06/20 24 02/07/2024 CBC WITH DIFFE RENTI AL/PL ATELE T eos (absolute) 0.2 x10e3 /uL 0.0-0. 4 normal Not Available [facility] ([facility]) [address] [facility], [place], [address], 02/10/2024 03:36:13 02/06/20 24 02/07/2024 CBC WITH DIFFE RENTI AL/PL ATELE T baso (absolute) 0.1 x10e3 /uL 0.0-0. 2 normal Not Available [facility] ([facility]) [address] [facility], [place], [address], 02/10/2024 03:36:13 02/06/20 24 02/07/2024 CBC WITH DIFFE RENTI AL/PL ATELE T immature granulocytes 1 % not estab. Not Available [facility] ([facility]) [address] [facility], [place], [address], 02/10/2024 03:36:13 02/06/20 24 02/07/2024 CBC WITH DIFFE RENTI AL/PL ATELE T immature grans (abs) 0.1 x10e3 /uL 0.0-0. 1 Not Available [facility] ([facility]) [address] [facility], [place], [address], 02/10/2024 03:36:13 02/06/20 24 02/07/2024 CBC WITH DIFFE RENTI AL/PL ATELE T NRBC TREE FELLER Not Available [facility] ([facility]) [address] [place], [address], 02/10/2024 03:36:13 02/06/20 24 02/07/2024 CBC WITH DIFFE RENTI AL/PL ATELE T hematology comments: TREE FELLER Not Available [facility] ([facility]) [address] [facility], [place], [address], 02/10/2024 03:36:13 02/06/20 24 02/07/2024 COMP. METAB OLIC PANEL (14) glucose 164 mg/dL 70-99 above high normal Not Available [facility] ([facility]) [address] [facility] [place], [address], 02/10/2024 03:36:14 02/06/20 24 02/07/2024 COMP. METAB OLIC PANEL (14) BUN 61 mg/dL 6-24 above high normal Not Available [facility] ([facility]) [address] [place], [address], 02/10/2024 03:36:14 02/06/20 24 02/07/2024 COMP. METAB OLIC PANEL (14) creatinine 2.18 mg/dL 0.76-1 .27 above high normal Not Available [facility] ([facility]) [address] [facility] [place], [address], 02/10/2024 03:36:14 02/06/20 24 02/07/2024 COMP. METAB OLIC PANEL (14) eGFR 36 mL/mi n/1.7 3 >59 below low normal Not Available [facility] ([facility]) [address] [place], [address], 02/10/2024 03:36:14 02/06/20 24 02/07/2024 COMP. METAB OLIC PANEL (14) BUN/creatini ne ratio 28 9-20 above high normal Not Available [facility] ([facility]) [address] [place], [address], 02/10/2024 03:36:14 02/06/20 24 02/07/2024 COMP. METAB OLIC PANEL (14) sodium 136 mmol/ L 134-14 4 normal Not Available [facility] ([facility]) [address] [place], [address], 02/10/2024 03:36:14 02/06/20 24 02/07/2024 COMP. METAB OLIC PANEL (14) potassium 4.6 mmol/ L 3.5-5. 2 normal Not Available [facility] ([facility]) [address] [place], [address], 02/10/2024 03:36:14 02/06/20 24 02/07/2024 COMP. METAB OLIC PANEL (14) chloride 94 mmol/ L 96-106 below low normal Not Available [facility] ([facility]) [address] [place], [address], 02/10/2024 03:36:14 02/06/20 24 02/07/2024 COMP. METAB OLIC PANEL (14) carbon dioxide, total 24 mmol/ L 20-29 normal Not Available [facility] ([facility]) [address] [place], [address], 02/10/2024 03:36:14 02/06/20 24 02/07/2024 COMP. METAB OLIC PANEL (14) calcium 9.9 mg/dL 8.7-10 .2 normal Not Available [facility] ([facility]) [address] [place], [address], 02/10/2024 03:36:14 02/06/20 24 02/07/2024 COMP. METAB OLIC PANEL (14) protein, total 8.0 g/dL 6.0-8. 5 normal Not Available [facility] ([facility]) [address] [place], [address], 02/10/2024 03:36:14 02/06/20 24 02/07/2024 COMP. METAB OLIC PANEL (14) albumin 3.9 g/dL 4.1-5. 1 below low normal Not Available [facility] ([facility]) [address] [place], [address], 02/10/2024 03:36:14 02/06/20 24 02/07/2024 COMP. METAB OLIC PANEL (14) globulin, total 4.1 g/dL 1.5-4. 5 Not Available [facility] ([facility]) [address] [facility] [place], [address], 02/10/2024 03:36:14 02/06/20 24 02/07/2024 COMP. METAB OLIC PANEL (14) bilirubin, total 0.7 mg/dL 0.0-1. 2 normal Not Available [facility] ([facility]) [address] [facility] [place], [address], 02/10/2024 03:36:14 02/06/20 24 02/07/2024 COMP. METAB OLIC PANEL (14) alkaline phosphatase 91 IU/L 44-121 normal Not Available [facility] [address] [facility] [place], [address], 02/10/2024 03:36:14 02/06/20 24 02/07/2024 COMP. METAB OLIC PANEL (14) AST (SGOT) 23 IU/L 0-40 normal Not Available [facility] ([facility]) [address] [facility] [place], [address], 02/10/2024 03:36:14 02/06/20 24 02/07/2024 COMP. METAB OLIC PANEL (14) ALT (SGPT) 24 IU/L 0-44 normal Not Available [facility] ([facility]) [address] [place], [address], 02/10/2024 03:36:14 02/06/20 24 02/07/2024 IRON AND TIBC iron bind.cap.(TI BC) 212 ug/dL 250-45 0 below low normal Not Available [facility] ([facility]) [address] [place], [address], 02/10/2024 03:36:14 02/06/20 24 02/07/2024 IRON AND TIBC UIBC 179 ug/dL 111-34 3 normal Not Available [facility] ([facility]) [address] [place], [address], 02/10/2024 03:36:14 02/06/20 24 02/07/2024 IRON AND TIBC iron 33 ug/dL 38-169 below low normal Not Available [facility] ([facility]) [address] [place], [address], 02/10/2024 03:36:14 02/06/20 24 02/07/2024 IRON AND TIBC iron saturation 16 % 15-55 normal Not Available [facility]) [address] [place], [address], 02/10/2024 03:36:14 02/06/20 24 02/07/2024 PT AND [...] range 2.5 - 3.5 Not Available [facility] ([facility]) [address] [place], [address], 02/10/2024 03:36:15 02/06/20 24 02/07/2024 PT AND PTT prothrombin time 11.4 sec 9.1-12 .0 normal Not Available [facility] ([facility]) [address] [place], [address], 02/10/2024 03:36:15 02/06/20 24 02/07/2024 PT AND [...] laney of Servi carlo. Not Available [facility] ([facility]) [address] [facility], [place], [address], 02/10/2024 03:36:15 02/06/20 24 02/07/2024 C4+C3 complement C3, serum 194 mg/dL 82-167 above high normal Not Available [facility] ([facility]) [address] [facility], [place], [address], 02/10/2024 03:36:16 02/06/20 24 02/07/2024 C4+C3 complement C4, serum 33 mg/dL 12-38 Not Available [facility]) [address] [facility], [place], [address], 02/10/2024 03:36:16 02/06/20 24 02/09/2024 C-ANC A+P-A NCA W/REF MELISSA cytoplasmic (C-anca) <1:20 titer neg:<1 :20 Not Available [facility] ([facility]) [address] [facility], [place], [address], 02/10/2024 03:36:17 02/06/20 24 02/09/2024 C-ANC A+P-A [...] ng of posit nat sera with both DC-3 and MPO-A NCA enzym e immun oassa ys. As many as 5% serum sampl es are posit nat only by EIA. Ref. AM J Clin Patho l 1999; 111:5 07-51 3. Not Available [facility] ([facility]) [address] [facility], [place], [address], 02/10/2024 03:36:17 02/06/20 24 02/07/2024 RHEUM ATOID FACTO R (RF) rheumatoid factor (rf) 34.4 IU/mL <14.0 above high normal Not Available [facility] ([facility]) [address] [facility], [place], [address], 02/10/2024 03:36:18 02/06/20 24 02/07/2024 RPR, RFX QN RPR/C ONFIR M TP RPR Non Reacti ve non reacti ve Not Available [facility] ([facility]) [address] [facility], [place], [address], 02/10/2024 03:36:19 02/06/20 24 02/07/2024 LYME DISEA [...] is recom chantell d. Not Available [facility] ([facility]) [address] [facility], [place], [address], 02/10/2024 03:36:19 02/06/20 24 02/09/2024 CCP ANTIB [...] of the assay . Not Available [facility] ([facility]) [address] [place], [address], 02/10/2024 03:36:20 02/06/20 24 02/09/2024 ANTIN UCLEA R AB MULTI PLEX RFX 9 HIMA direct Negati ve negati ve Not Available [facility] ([facility]) [address] [facility], [place], [address], 02/10/2024 03:36:21 02/06/20 24 02/07/2024 SEDIM ENTAT ION RATE- WESTE RGREN sedimentatio n rate-westerg michelle 119 mm/HR 0-30 above high normal Not Available [facility] ([facility]) [address] [facility], [place], [address], 02/10/2024 03:36:22 02/06/20 24 02/07/2024 IMMUN OGLOB ULIN A, QN, SERUM immunoglobul in A, qn, serum 743 mg/dL 90-386 above high normal Not Available [facility] ([facility]) [address] [place], [address], 02/10/2024 03:36:23 02/06/20 24 02/07/2024 MEL TIN ferritin 800 NG/mL 30-400 above high normal Not Available [facility] ([facility]) [address] [place], [address], 02/10/2024 03:36:23 02/06/20 24 02/07/2024 C-ALEAH CTIVE PROTE IN, QUANT C-reactive protein, quant 54 mg/L 0-10 above high normal Not Available [facility] ([facility]) [address] [place], [address], 02/10/2024 03:36:24 02/06/20 24 02/06/2024 micro album in/cr eatin ine, mass ratio , urine Microalbumin 80 Not Available [address] [place], [address], 02/06/2024 15:04:46 02/06/20 24 02/06/2024 micro album in/cr eatin ine, mass ratio , urine Creatinine 300 Not Available [address] [place], [address], 02/06/2024 15:04:46 02/06/20 24 02/06/2024 micro album in/cr eatin ine, mass ratio , urine Ratio 30-300 Not Available [address] [place], [address], 02/06/2024 15:04:46 02/06/20 24 02/06/2024 urina lysis , dipst ick Leukocytes Small Not Available [address] [place], [address], 02/06/2024 15:04:45 02/06/20 24 02/06/2024 urina lysis , dipst ick Nitrite negati ve Not Available [address] [place], [address], 02/06/2024 15:04:45 02/06/20 24 02/06/2024 urina lysis , dipst ick Urobilinogen .2 Not Available [address] [place], [address], 02/06/2024 15:04:45 02/06/20 24 02/06/2024 urina lysis , dipst ick Protein 30 Not Available [address] [place], [address], 02/06/2024 15:04:45 02/06/20 24 02/06/2024 urina lysis , dipst ick pH 5.5 Not Available [address] [place], [address], 02/06/2024 15:04:45 02/06/20 24 02/06/2024 urina lysis , dipst ick Blood Non-He molyze d: Trace Not Available [address] [place], [address], 02/06/2024 15:04:45 02/06/2002/06/2024 urina lysis , dipst ick Specific [place] 1.020 Not Available [address] [place], [address], 02/06/2024 15:04:45 02/06/20 24 02/06/2024 urina lysis , dipst ick Ketone Negati ve Not Available [address] [place], [address], 02/06/2024 15:04:45 02/06/20 24 02/06/2024 urina lysis , dipst ick Bilirubin Small Not Available [address] [place], [address], 02/06/2024 15:04:45 02/06/20 24 02/06/2024 urina lysis , dipst ick Glucose Negati ve Not Available [address] [place], [address], 02/06/2024 15:04:45 02/06/20 24 02/06/2024 urina lysis , dipst ick Appearance Clear Not Available [address] [place], [address], 02/06/2024 15:04:45 02/06/20 24 02/06/2024 urina lysis , dipst ick Color Dark Yellow Not Available [facility] [address] [place], [address], 02/06/2024 15:04:45 02/11/20 24 02/12/2024 RENAL PANEL (10) glucose 198 mg/dL 70-99 above high normal Not Available [facility] ([facility]) [address] [place], [address], 02/12/2024 07:37:54 02/11/20 24 02/12/2024 RENAL PANEL (10) BUN 49 mg/dL 6-24 above high normal Not Available [facility] ([facility]) [address] [place], [address], 02/12/2024 07:37:54 02/11/20 24 02/12/2024 RENAL PANEL (10) creatinine 1.63 mg/dL 0.76-1 .27 above high normal Not Available [facility] ([facility]) [address] [place], [address], 02/12/2024 07:37:54 02/11/20 24 02/12/2024 RENAL PANEL (10) eGFR 51 mL/mi n/1.7 3 >59 below low normal Not Available [facility] ([facility]) [address] [place], [address], 02/12/2024 07:37:54 02/11/20 24 02/12/2024 RENAL PANEL (10) BUN/creatini ne ratio 30 9-20 above high normal Not Available [facility] ([facility]) [address] [place], [address], 02/12/2024 07:37:54 02/11/20 24 02/12/2024 RENAL PANEL (10) sodium 135 mmol/ L 134-14 4 normal Not Available [facility] ([facility]) [address] [facility] [place], [address], 02/12/2024 07:37:54 02/11/20 24 02/12/2024 RENAL PANEL (10) potassium 4.6 mmol/ L 3.5-5. 2 normal Not Available [facility] ([facility]) [address] [facility] [place], [id number], 02/12/2024 07:37:54 02/11/20 24 02/12/2024 RENAL PANEL (10) chloride 98 mmol/ L 96-106 normal Not Available [facility] ([facility]) [address] [facility] [place], [address], 02/12/2024 07:37:54 02/11/20 24 02/12/2024 RENAL PANEL (10) carbon dioxide, total 20 mmol/ L 20-29 normal Not Available [facility] ([facility]) [address] [facility] [place], [address], 02/12/2024 07:37:54 02/11/20 24 02/12/2024 RENAL PANEL (10) calcium 9.6 mg/dL 8.7-10 .2 normal Not Available [facility] ([facility]) [address] [facility] [place], [address], 02/12/2024 07:37:54 02/11/20 24 02/12/2024 RENAL PANEL (10) phosphorus 2.8 mg/dL 2.8-4. 1 normal Not Available [facility] ([facility]) [address] [facility] [place], [address], 02/12/2024 07:37:54 02/11/20 24 02/12/2024 RENAL PANEL (10) albumin 3.9 g/dL 4.1-5. 1 below low normal Not Available [facility] ([facility]) [address] [place], [address], 02/12/2024 07:37:54 02/11/20 24 02/12/2024 UA/M W/RFL X CULTU RE, COMP specific gravity 1.028 1.005- 1.030 normal Not Available [facility] ([facility]) [address] [facility], [place], [address], 02/13/2024 06:37:31 02/11/20 24 02/12/2024 UA/M W/RFL X CULTU RE, COMP pH 5.5 5.0-7. 5 normal Not Available [facility] ([facility]) [address] [facility], [place], [address], 02/13/2024 06:37:31 02/11/20 24 02/12/2024 UA/M W/RFL X CULTU RE, COMP urine-color Yellow yellow Not Available [facility] ([facility]) [address] [facility], [place], [address], 02/13/2024 06:37:31 02/11/20 24 02/12/2024 UA/M W/RFL X CULTU RE, COMP appearance Cloudy clear abnormal Not Available [facility] ([facility]) [address] [facility], [place], [address], 02/13/2024 06:37:31 02/11/20 24 02/12/2024 UA/M W/RFL X CULTU RE, COMP WBC esterase 3+ negati ve abnormal Not Available [facility] ([facility]) [address] [place], [address], 02/13/2024 06:37:31 02/11/20 24 02/12/2024 UA/M W/RFL X CULTU RE, COMP protein 1+ negati ve/tra ce abnormal Not Available [facility] ([facility]) [address] [place], [address], 02/13/2024 06:37:31 02/11/20 24 02/12/2024 UA/M W/RFL X CULTU RE, COMP glucose Negati ve negati ve Not Available [facility] ([facility]) [address] [place], [address], 02/13/2024 06:37:31 02/11/20 24 02/12/2024 UA/M W/RFL X CULTU RE, COMP ketones Negati ve negati ve Not Available [facility] ([facility]) [address] [place], [address], 02/13/2024 06:37:31 02/11/20 24 02/12/2024 UA/M W/RFL X CULTU RE, COMP occult blood Negati ve negati ve Not Available [facility] ([facility]) [address] [place], [address], 02/13/2024 06:37:31 02/11/20 24 02/12/2024 UA/M W/RFL X CULTU RE, COMP bilirubin Negati ve negati ve Not Available [facility] ([facility]) [address] [place], [address], 02/13/2024 06:37:31 02/11/20 24 02/12/2024 UA/M W/RFL X CULTU RE, COMP urobilinogen ,semi-qn 0.2 mg/dL 0.2-1. 0 normal Not Available [facility] ([facility]) [address] [place], [address], 02/13/2024 06:37:31 02/11/20 24 02/12/2024 UA/M W/RFL X CULTU RE, COMP nitrite, urine Negati ve negati ve Not Available [facility] ([facility]) [address] [place], [address], 02/13/2024 06:37:31 02/11/20 24 02/12/2024 UA/M W/RFL X CULTU RE, COMP microscopic examination See below: Micro scopi c was indic ated and was perfo rmed. Not Available [facility] ([facility]) [address] [facility], [place], [address], 02/13/2024 06:37:31 02/11/20 24 02/12/2024 UA/M W/RFL X CULTU RE, COMP WBC >30 /hpf 0 - 5 abnormal Not Available [facility] ([facility]) [address] [facility], [place], [address], 02/13/2024 06:37:31 02/11/20 24 02/12/2024 UA/M W/RFL X CULTU RE, COMP RBC None seen /hpf 0 - 2 Not Available [facility] ([facility]) [address] [facility], [place], [address], 02/13/2024 06:37:31 02/11/20 24 02/12/2024 UA/M W/RFL X CULTU RE, COMP epithelial cells (non renal) None seen /hpf 0 - 10 Not Available [facility] ([facility]) [address] [facility], [place], [address], 02/13/2024 06:37:31 02/11/20 24 02/12/2024 UA/M W/RFL X CULTU RE, COMP epithelial cells (renal) TREE FELLER Not Available [facility] ([facility]) [address] [facility], [place], [address], 02/13/2024 06:37:31 02/11/20 24 02/12/2024 UA/M W/RFL X CULTU RE, COMP casts None seen /lpf none seen Not Available [facility] ([facility]) [address] [place], [address], 02/13/2024 06:37:31 02/11/20 24 02/12/2024 UA/M W/RFL X CULTU RE, COMP cast type TREE FELLER Not Available [facility] ([facility]) [address] [place], [address], 02/13/2024 06:37:31 02/11/20 24 02/12/2024 UA/M W/RFL X CULTU RE, COMP crystals TREE FELLER Not Available [facility] ([facility]) [address] [facility], [place], [address], 02/13/2024 06:37:31 02/11/20 24 02/12/2024 UA/M W/RFL X CULTU RE, COMP crystal type TREE FELLER Not Available [facility] ([facility]) [address] [facility], [place], [address], 02/13/2024 06:37:31 02/11/20 24 02/12/2024 UA/M W/RFL X CULTU RE, COMP mucus threads TREE FELLER Not Available [facility] ([facility]) [address] [facility], [place], [address], 02/13/2024 06:37:31 02/11/20 24 02/12/2024 UA/M W/RFL X CULTU RE, COMP bacteria None seen none seen/f ew Not Available [facility] ([facility]) [address] [facility], [place], [address], 02/13/2024 06:37:31 02/11/20 24 02/12/2024 UA/M W/RFL X CULTU RE, COMP yeast Presen t none seen abnormal Not Available [facility] ([facility]) [address] [facility], [place], [address], 02/13/2024 06:37:31 02/11/20 24 02/12/2024 UA/M W/RFL X CULTU RE, COMP trichomonas TREE FELLER Not Available [facility] ([facility]) [address] [facility], [place], [address], 02/13/2024 06:37:31 02/11/20 24 02/12/2024 UA/M W/RFL X CULTU RE, COMP comment TREE FELLER Not Available [facility] ([facility]) [address] [facility], [place], [address], 02/13/2024 06:37:31 02/11/20 24 02/12/2024 UA/M W/RFL X CULTU RE, COMP microscopic examination TREE FELLER Not Available [facility] ([facility]) [address] [facility], [place], [address], 02/13/2024 06:37:31 02/11/20 24 02/12/2024 UA/M W/RFL X CULTU RE, COMP urinalysis reflex Commen t This speci men has refle xed to a Urine Cultu re. Not Available [facility] ([facility]) [address] [facility], [place], [address], 02/13/2024 06:37:31 02/11/20 24 02/13/2024 UA/M W/RFL X CULTU RE, COMP urine culture,comp rehensive Final report Not Available [facility] ([facility]) [address] [facility], [place], [address], 02/13/2024 06:37:31 02/11/20 24 02/13/2024 UA/M W/RFL X CULTU RE, COMP result 1 COMMEN T Mixed uroge nital kavin 50,00 0-100 ,000 colon y formi ng units per mL Not Available [facility] ([facility]) [address] [facility], [place], [address], 02/13/2024 06:37:31 02/11/20 24 02/16/2024 PATHO LOGY REPOR T . Commen t Mater ial submi tted: . leg - LEFT LEG. Modif iers: left Not Available [facility] ([facility]) [address] [facility], [place], [address], 02/16/2024 12:36:42 02/11/20 24 02/16/2024 PATHO LOGY REPOR T . 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 SEE DESCR IPTIO N. BXS 02/15 0811 Local Not Available [facility] ([facility]) [address] [place], [address], 02/16/2024 12:36:42 02/11/20 24 02/16/2024 PATHO LOGY REPOR T . Commen t Elect jermaine goodwin d: . Garcia pereyra MD, Rumsey topat holog ist Not Available [facility] ([facility]) [address] [place], [address], 02/16/2024 12:36:42 02/11/20 24 02/16/2024 PATHO LOGY [...] XS 02/11 0843 Local Not Available [facility] ([facility]) [address] [place], [address], 02/16/2024 12:36:42 02/11/2002/16/2024 PATHO LOGY REPOR T [...] N IS NEEDE D. Not Available [facility] ([facility]) [address] [facility], [place], [address], 02/16/2024 12:36:42 02/11/2002/16/2024 PATHO LOGY REPOR T . Commen t Patho logis t provi ded ICD-1 0: L30.9 Not Available [facility] ([facility]) [address] [facility], [place], [address], 02/16/2024 12:36:42 02/11/2002/16/2024 PATHO LOGY REPOR T . Commen t CPT . 44957 1, 02828 1, 42782 2 Not Available [facility] ([facility]) [address] [facility], [place], [address], 02/16/2024 12:36:42 02/11/20 24 02/11/2024 urina lysis , dipst ick Leukocytes Large Not Available [facility] [address] [place], [address], 02/11/2024 11:57:37 11/20/20 24 02/11/2024 urina lysis , dipst ick Nitrite negati ve Not Available [address] [place], [address], 02/11/2024 11:57:37 02/11/20 24 02/11/2024 urina lysis , dipst ick Urobilinogen 1 Not Available [address] [place], [address], 02/11/2024 11:57:37 02/11/2002/11/2024 urina lysis , dipst ick Protein 30 Not Available [address] [place], [address], 02/11/2024 11:57:37 02/11/2002/11/2024 urina lysis , dipst ick pH 5.5 Not Available [address] [place], [address], 02/11/2024 11:57:37 02/11/20 24 02/11/2024 urina lysis , dipst ick Blood Non-He molyze d: Trace Not Available [address] [place], [address], 02/11/2024 11:57:37 02/11/20 24 02/11/2024 urina lysis , dipst ick Specific [place] 1.025 Not Available [address] [place], [address], 02/11/2024 11:57:37 02/11/20 24 02/11/2024 urina lysis , dipst ick Ketone Negati ve Not Available [address] [place], [address], 02/11/2024 11:57:37 02/11/20 24 02/11/2024 urina lysis , dipst ick Bilirubin Small Not Available [place] [address] [place], [address], 02/11/2024 11:57:37 02/11/20 24 02/11/2024 urina lysis , dipst ick Glucose Negati ve Not Available [address] [place], [address], 02/11/2024 11:57:37 02/11/20 24 02/11/2024 urina lysis , dipst ick Appearance Clear Not Available [address] [place], [address], 02/11/2024 11:57:37 02/11/20 24 02/11/2024 urina lysis , dipst ick Color Dark Yellow Not Available [address] [place], [address], 02/11/2024 11:57:37 02/15/20 24 02/15/2024 HbA1c (hemo globi n A1c), blood HbA1C 7.4 % Not Available [address] [place], [address], 02/15/2024 22:25:01 03/08/20 24 03/09/2024 CBC WITH DIFFE RENTI AL/PL ATELE T WBC 4.9 x10e3 /uL 3.4-10 .8 normal Not Available [facility] ([facility]) [address] [facility], [place], [address], 03/09/2024 10:08:33 03/08/20 24 03/09/2024 CBC WITH DIFFE RENTI AL/PL ATELE T RBC 4.19 x10e6 /uL 4.14-5 .80 normal Not Available [facility] ([facility]) [address] [place], [address], 03/09/2024 10:08:33 03/08/20 24 03/09/2024 CBC WITH DIFFE RENTI AL/PL ATELE T hemoglobin 12.0 g/dL 13.0-1 7.7 below low normal Not Available [facility] ([facility]) [address] [place], [address], 03/09/2024 10:08:33 03/08/20 24 03/09/2024 CBC WITH DIFFE RENTI AL/PL ATELE T hematocrit 36.8 % 37.5-5 1.0 below low normal Not Available [facility] ([facility]) [address] [place], [address], 03/09/2024 10:08:33 03/08/20 24 03/09/2024 CBC WITH DIFFE RENTI AL/PL ATELE T MCV 88 fL 79-97 normal Not Available [facility] ([facility]) [address] [place], [address], 03/09/2024 10:08:33 03/08/20 24 03/09/2024 CBC WITH DIFFE RENTI AL/PL ATELE T MCH 28.6 pg 26.6-3 3.0 normal Not Available [facility] ([facility]) [address] [place], [address], 03/09/2024 10:08:33 03/08/20 24 03/09/2024 CBC WITH DIFFE RENTI AL/PL ATELE T MCHC 32.6 g/dL 31.5-3 5.7 normal Not Available [facility] ([facility]) [address] [place], [address], 03/09/2024 10:08:33 03/08/20 24 03/09/2024 CBC WITH DIFFE RENTI AL/PL ATELE T RDW 15.3 % 11.6-1 5.4 Not Available [facility] ([facility]) [address] [facility], [place], [address], 03/09/2024 10:08:33 03/08/20 24 03/09/2024 CBC WITH DIFFE RENTI AL/PL ATELE T platelets 462 x10e3 /uL 150-45 0 above high normal Not Available [facility] ([facility]) [address] [facility], [place], [address], 03/09/2024 10:08:33 03/08/20 24 03/09/2024 CBC WITH DIFFE RENTI AL/PL ATELE T neutrophils 65 % not estab. normal Not Available [facility] ([facility]) [address] [facility], [place], [address], 03/09/2024 10:08:33 03/08/20 24 03/09/2024 CBC WITH DIFFE RENTI AL/PL ATELE T lymphs 19 % not estab. normal Not Available [facility] ([facility]) [address] [facility], [place], [address], 03/09/2024 10:08:33 03/08/20 24 03/09/2024 CBC WITH DIFFE RENTI AL/PL ATELE T monocytes 12 % not estab. normal Not Available [facility] ([facility]) [address] [facility], [place], [address], 03/09/2024 10:08:33 03/08/20 24 03/09/2024 CBC WITH DIFFE RENTI AL/PL ATELE T eos 3 % not estab. normal Not Available [facility] ([facility]) [address] [facility], [place], [address], 03/09/2024 10:08:33 03/08/20 24 03/09/2024 CBC WITH DIFFE RENTI AL/PL ATELE T basos 1 % not estab. normal Not Available [facility] ([facility]) [address] [facility], [place], [address], 03/09/2024 10:08:33 03/08/20 24 03/09/2024 CBC WITH DIFFE RENTI AL/PL ATELE T immature cells TREE FELLER Not Available [facility] ([facility]) [address] [facility], [place], [address], 03/09/2024 10:08:33 03/08/20 24 03/09/2024 CBC WITH DIFFE RENTI AL/PL ATELE T neutrophils (absolute) 3.2 x10e3 /uL 1.4-7. 0 normal Not Available [facility] ([facility]) [address] [facility], [place], [address], 03/09/2024 10:08:33 03/08/20 24 03/09/2024 CBC WITH DIFFE RENTI AL/PL ATELE T lymphs (absolute) 0.9 x10e3 /uL 0.7-3. 1 normal Not Available [facility] ([facility]) [address] [place], [address], 03/09/2024 10:08:33 03/08/20 24 03/09/2024 CBC WITH DIFFE RENTI AL/PL ATELE T monocytes(ab solute) 0.6 x10e3 /uL 0.1-0. 9 normal Not Available [facility] ([facility]) [address] [place], [address], 03/09/2024 10:08:33 03/08/20 24 03/09/2024 CBC WITH DIFFE RENTI AL/PL ATELE T eos (absolute) 0.1 x10e3 /uL 0.0-0. 4 normal Not Available [facility] ([facility]) [address] [facility], [place], [address], 03/09/2024 10:08:33 03/08/20 24 03/09/2024 CBC WITH DIFFE RENTI AL/PL ATELE T baso (absolute) 0.0 x10e3 /uL 0.0-0. 2 normal Not Available [facility] ([facility]) [address] [facility], [place], [address], 03/09/2024 10:08:33 03/08/20 24 03/09/2024 CBC WITH DIFFE RENTI AL/PL ATELE T immature granulocytes 0 % not estab. Not Available [facility] ([facility]) [address] [facility], [place], [address], 03/09/2024 10:08:33 03/08/20 24 03/09/2024 CBC WITH DIFFE RENTI AL/PL ATELE T immature grans (abs) 0.0 x10e3 /uL 0.0-0. 1 Not Available [facility] ([facility]) [address] [facility], [place], [address], 03/09/2024 10:08:33 03/08/20 24 03/09/2024 CBC WITH DIFFE RENTI AL/PL ATELE T NRBC TREE FELLER Not Available [facility] ([facility]) [address] [facility], [place], [address], 03/09/2024 10:08:33 03/08/20 24 03/09/2024 CBC WITH DIFFE RENTI AL/PL ATELE T hematology comments: TREE FELLER Not Available [facility] ([facility]) [address] [facility], [place], [address], 03/09/2024 10:08:33 03/08/20 24 03/09/2024 COMP. METAB OLIC PANEL (14) glucose 63 mg/dL 70-99 below low normal Not Available [facility] ([facility]) [address] [facility], [place], [address], 03/09/2024 10:08:33 03/08/20 24 03/09/2024 COMP. METAB OLIC PANEL (14) BUN 9 mg/dL 6-24 normal Not Available [facility] ([facility]) [address] [place], [address], 03/09/2024 10:08:33 03/08/20 24 03/09/2024 COMP. METAB OLIC PANEL (14) creatinine 1.00 mg/dL 0.76-1 .27 normal Not Available [facility] ([facility]) [address] [place], [address], 03/09/2024 10:08:33 03/08/20 24 03/09/2024 COMP. METAB OLIC PANEL (14) eGFR 92 mL/mi n/1.7 3 >59 normal Not Available [facility] ([facility]) [address] [facility] [place], [address], 03/09/2024 10:08:33 03/08/20 24 03/09/2024 COMP. METAB OLIC PANEL (14) BUN/creatini ne ratio 9 9-20 normal Not Available [facility] ([facility]) [address] [facility] [place], [address], 03/09/2024 10:08:33 03/08/20 24 03/09/2024 COMP. METAB OLIC PANEL (14) sodium 135 mmol/ L 134-14 4 normal Not Available [facility] ([facility]) [address] [facility] [place], [address], 03/09/2024 10:08:33 03/08/20 24 03/09/2024 COMP. METAB OLIC PANEL (14) potassium 4.9 mmol/ L 3.5-5. 2 normal Not Available [facility] ([facility]) [address] [facility] [place], [address], 03/09/2024 10:08:33 03/08/20 24 03/09/2024 COMP. METAB OLIC PANEL (14) chloride 98 mmol/ L 96-106 normal Not Available [facility] ([facility]) [address] [facility], [place], [address], 03/09/2024 10:08:33 03/08/20 24 03/09/2024 COMP. METAB OLIC PANEL (14) carbon dioxide, total TNP mmol/ L Test not perfo rmed. Due to a lack of repro ducib ility with this patie nt sampl e, a valid resul t could not be obtai lani. Not Available [facility] ([facility]) [address], [place], [address], 03/09/2024 10:08:33 03/08/20 24 03/09/2024 COMP. METAB OLIC PANEL (14) calcium 9.1 mg/dL 8.7-10 .2 normal Not Available [facility] ([facility]) [address] [place], [address], 03/09/2024 10:08:33 03/08/20 24 03/09/2024 COMP. METAB OLIC PANEL (14) protein, total 6.8 g/dL 6.0-8. 5 normal Not Available [facility] ([facility]) [address] [place], [address], 03/09/2024 10:08:33 03/08/20 24 03/09/2024 COMP. METAB OLIC PANEL (14) albumin 3.7 g/dL 4.1-5. 1 below low normal Not Available [facility] ([facility]) [address] [facility] [place], [address], 03/09/2024 10:08:33 03/08/20 24 03/09/2024 COMP. METAB OLIC PANEL (14) globulin, total 3.1 g/dL 1.5-4. 5 Not Available [facility] ([facility]) [address] [facility] [place], [address], 03/09/2024 10:08:33 03/08/20 24 03/09/2024 COMP. METAB OLIC PANEL (14) bilirubin, total 1.5 mg/dL 0.0-1. 2 above high normal Not Available [facility] ([facility]) [address] [facility] [place], [address], 03/09/2024 10:08:33 03/08/20 24 03/09/2024 COMP. METAB OLIC PANEL (14) alkaline phosphatase 133 IU/L 44-121 above high normal Not Available [facility] ([facility]) [address] [facility] [place], [address], 03/09/2024 10:08:33 03/08/20 24 03/09/2024 COMP. METAB OLIC PANEL (14) AST (SGOT) 35 IU/L 0-40 normal Not Available [facility] ([facility]) [address] [facility] [place], [address], 03/09/2024 10:08:33 03/08/20 24 03/09/2024 COMP. METAB OLIC PANEL (14) ALT (SGPT) 12 IU/L 0-44 normal Not Available [facility] ([facility]) [address] [facility], [place], [address], 03/09/2024 10:08:33 03/08/20 24 03/09/2024 PLEAS E NOTE please note Commen t The date and/o r time of colle ction was not indic ated on the requi sitio n as requi red by state and erik al law. The date of recei pt of the speci men was used as the colle ction date if not suppl ied. Not Available [facility] ([facility]) [address] [facility], [place], [address], 03/09/2024 10:08:34 Result Notes None recorded. 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 024 Von Crawford PA-C [address], [place], [address], [place] - [facility] 11/15/202 4 14:07:50 Obesity 931313788 Active 024 Von Crawford PA-C [address], [place], [address], [place] - [facility] 4 14:10:09 Eruption 644452650 Active 024 Von Crawford PA-C [address], [place], [address], [place] [facility] 4 14:22:36 Petechiae of skin 791382057 Active 024 Von Crawford PA-C [address], [place], [address], [place] [facility] 4 14:23:11 Type 2 diabetes mellitus 78307007 Active 024 Von Crawford PA-C [address], [place], [address], [place] [facility] 4 14:30:44 Acute kidney injury 32422753 Active 024 Von Crawford PA-C [address], [place], [address], [place] [facility] 4 11:55:56 Nephrotic syndrome 10664440 Active 024 Von Crawford PA-C [address], [place], [address], [place] [facility] 4 11:56:09 Skin lesion 86258480 Active 024 Von Crawford PA-C [address], [place], [address], [place] [facility] 4 18:52:02 Leukocytes in urine 913045059 Active 024 Von Crawford PA-C [address], [place], [address], [place] [facility] 4 22:29:25 Problem Notes None recorded. Procedures Surgical History Date Name Laterality Status Provider Name and Address Organization Details Recorded Time 02/11/2024 Punch Biopsy completed Von Crawford PA-C [address], [place], [address], [place] [facility] 02/15/2024 22:28:42 Imaging Results None recorded. Procedure Notes None recorded. Medical Equipment None Reported. Allergies Allergen ID Allergen Name Allergen Category Reaction Reaction Severity Criticality Documentation Date Start Date Code Code System Note Provider Name and Address Organization Details Recorded Time 709156 Product containin g penicilli n (product) medicatio n rash moderate high 02/06/2024 70756 8001 SNOMED Leatha Arriaga [facility], [place] - [facility] 4 13:21:34 Medications [...] in Arterial blood by Pulse oximetry Systolic And Diastolic Provider Name and Address Organization Details Last Updated DateTime 4 547001. 94 g 102 /min 95 % 95 % 118/72 mm[Hg] Leatha Arriaga [place] - [facility] 4 13:28:55 Date Recorded Body weight Body temperature Heart rate Oxygen saturation Oxygen saturation in Arterial blood by Pulse oximetry Systolic And Diastolic Provider Name and Address Organization Details Last Updated DateTime 4 387685. 57 g 97.5 [degF] 90 /min 96 % 96 % 118/74 mm[Hg] Leatha Arriaga [place] - [facility] 4 10:52:34 Date Recorded Heart rate Oxygen saturation Oxygen saturation in Arterial blood by Pulse oximetry Provider Name and Address Organization Details Last Updated DateTime 03/08/2024 82 /min 96 % 96 % Leatha SAUCEDA - [facility] 03/08/2024 10:29:31 Social History Question Answer Notes LastModified by Organizat ion Details LastModified Time Tobacco Smoking Status Never Smoker KOMAL Medina [facility] 02/06/2024 13:22:04 What Was The Date Of Your Most Recent Tobacco Screening? 02/06/2024 Information not available 02/06/2024 What Is Your Relationship Status? [email or web address] Information not available 02/06/2024 Has Tobacco Cessation Counseling Been Provided? Yes [email or web address] Information not available 02/06/2024 On What Date Was Tobacco Cessation Counseling Provided? 02/06/2024 [email or web address] Information not available 02/06/2024 Sex: Male Functional Status None recorded. Mental Status None recorded. Family History Nothing Reported. Medical History No medical history recorded. Immunizations Vaccine Type Date Status Note Provider Nam e and Address Organization Details Recorded Time Influenza, split virus, quadrivalent, preservative 0 completed [facility] 02/06/2024 13:20:40 COVID-19 vaccine, vector-nr, rS-Ad26, PF, 0.5 mL 1 completed [facility] 02/06/2024 13:20:41 Past Encounters Encounter ID Performer Location Encounter Start Date Encounter Closed Date Diagnosis/Indication Diagnosis SNOMED-CT Code Diagnosis ICD10 Code Diagnosis Note [id number] Von Crawford PA-C [facility] [address] [address] [place] [id number] 02/06/2024 12:54:36 02/06/2024 15:12:49 Vasculitis of the skin 31286232 L95.9 Discussed supportive care with patient. Advised [...] and sxs to seek further treatment. Obesity 120663606 E66.9 Eruption [id number] R21 Petechiae of skin 054029 004 R23.3 Type 2 jace betes mellitus 76703428 E11.9 7.4% a1cPT instructed to watch for [...] of taking medication s as prescribed . [id number] Von Crawford PA-C [facility] [address] [place] [address] 02/11/2024 10:35:05 02/11/2024 12:44:33 Petechiae of skin 111398316 R23.3 Vasculitis of the skin 50639553 L95.9 Type 2 jace betes mellitus 57394452 E11.9 PT instructed to watch for high [...] sxs to seek further treatment. Nephrotic syndrome 22483 009 N04.9 Leukocytes in urine 2757 44270 R82.79 rflx to culture, prior culture negative [id number] JOSH Kc [facility] [address] [facility] [place] [address] 03/08/2024 10:23:58 03/08/2024 11:21:25 Acute kidney injury 14342741 N17.9 --improved per hospital records Vasculitis of the skin 16491982 L95.9 --improved Lack of ac cess to transportation 700137163 Z59.82 Type 2 jace betes mellitus 30845575 E11.9 Controlled by diet (PEG tube feedings) Health Concerns Section Related Observation LastModified by Organization Detai ls LastModified Time None Recorded Concern Status LastModified by Organization Details LastModified Time None Recorded Advance Directives Directive None Recorded Payers Insurance Date Sequence Insurance Name Policy Number Policy Hargrove Covered Member ID Hargrove Member ID Guarantor Name 04/03/2024 [place] [id number] Henny Daniels [id number] Henny Daniels 03/01/2024 1 [facility] STANLEY Daniels [id number] Henny Daniels 06/21/2024 1 [place] [id number] Henny Daniels [id number] Henny Daniels 03/19/2024 [facility] [place] STANLEY Daniels [id number] Henny Daniels 03/01/2024 [place] STANLEY Daniels [id number] Henny Daniels 06/21/2024 1 [facility] [facility] (MEDICAID HMO) Henny Daniels [id number] Henny Daniels Notes Date Note Type Note [...] due to insurance. Dr. Eldridge surgeon at [facility] has seen leg and did not recommend intervention currently. Original surgery was january 05 where bone graft taken from RLE to use in mandible (as well as artery), skin grafting of RLE performed at that time. Graft has not taken. Has FU with Dr. Eldridge Feb 22. Dr. Cole/Stephanie [facility] oncology Reports last CT scan done on leg was performed the week before surgery, at , no further CT performed. Pt denies chest pain, SOA, difficulty eating or drinking, changes in bathroom habits, syncope/presyncope, or any other concerns. Von Crawford PA-C [address], [place], [address], [place] - [facility] 02/15/2024 22:25:33 02/11/2024 text/html Patient presents to office for one week follow up. Patient states has been compliant with abx and steroid prescribed. Patient states pain to lower extremities, no longer utilizing walker for ambulating. Patient states odor to lower extremities has improved. Patient denies any new issues/concerns this visit. BS at home: ~low 200s Dr. Eldridge surgeon at [facility] has seen leg and did not recommend intervention currently. Original surgery was january 05 where bone graft taken from RLE to use in mandible (as well as artery), skin grafting of RLE performed at that time. Graft has not taken. Has FU with Dr. Eldridge Feb 22. Dr. Cole/Stephanie [facility] oncology Reports last CT scan done on leg was performed the week before surgery, at , no further CT performed.No other symptoms or concerns reported. Von Crawford PA-C [address], [place], [address], [place] - [facility] 02/18/2024 20:47:30 03/08/2024 text/html Patient presents to office for follow up. Patient was admitted 8 days at hospital. Patient with wound vac in place, has changed 3x/week. Patient to begin radiation at due to [employer] unable to accommodate. PEG placed 02.17. Debridement of lower extremity 02/16/24Dr Eldridge FU 03/05/24 scheduled.Plans for chemo in [facility] for swallow study planned for ovyalsBGx29/4/2024 Dorcas Phamc03/05/2024 Donna Gregory JGGTDDOCVW31/13/2024 Matias Eldridge HZKWTMFMSF04/2WBC 7.63RBC 2.82GFR 117.6Cr 0.6 Reprots does have social science research assistant helping (from [employer])Taking amoxicillin and bactrimfinishing bactrim todayNo other symptoms or concerns reported. Von Crawford PA-C [address], [place], [address], [place] - [facility] 03/18/2024 20:35:23
--- OUTSIDE RECORDS SUMMARY | 2024-09-27 10:49 | XMS_ITS | Encounter Summary ---
Author Organization Healthcare Address [address] [place] [address] Care Team Providers Care Successfactors Consultant Name Role Phone Carson Ibrahim MD Primary Care Provider + [phone] Imer Sevilla MD Unavailable Viky Menon MD Unavailable [phone] Amelia Freeman RN Unavailable Unavailable Encounter Details Date Type Department Care Team (Late st Contact Info) Description 09/14/2024 Telephone Pav CC Head, Neck & Respiratory [address] [facility], 2nd [place] [phone] Matias Eldridge MD 800 [facility] [address] [place] [address] Social History Tobacco Use Types [...] any time in the past 12 m [facility], were you homeless or [...] first t 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 0 07/22/2024 CAGE Questionnaire Score 0 025 Utilities Answer Date Recorded In the past 12 months has th e [employer], gas, oil, or water company threatened to shut off services in your home? No 07/28/2024 Sex and Gender Information Value Date Recorded Sex Assigned at Male 01/06/2024 6:14 AM EDT Legal Sex Male 7:47 PM EDT Gender Identity Male 01/06/2024 6:14 AM EDT Sexual Orientation Not on file documented as of this encounter Miscellaneous Notes * Telephone Encounter - Amelia Pearson RN - 09/27/2024 9:43 AM EDT Issue addressed. * Telephone Encounter - Syl Isaac - 09/14/2024 4:08 PM EDT [employer] called to ask about a continuation prescription for a wound vac. [phone] ext [phone] documented in this encounter Plan of Treatment Upcoming Encounters Date Type Department Care Team (Late st Contact Info) Description 10/06/2024 11:45 AM EDT Office Visit Pav [facility] Head, Neck & Respiratory [address] [facility], [address]nd [place] [address] Matias Eldridge MD [address] [facility] [address] [place] [address] 12/13/2024 10:00 AM EDT Office Visit Pav [facility] Head, Neck & Respiratory [address] [facility], [address]nd [place] [address] Viky Menon MD [address] [facility] [address] [place] [address] 12/13/2024 1:00 PM EDT Appointment PAV CC Radiation [id number] [place] [address] Imer Sevilla MD 800 [facility] [address] [place] [phone] documented as of this encounter Visit Diagnoses [...] documented as of this encounter Care Teams Successfactors Consultant Relationship Specialty Start Date End Date Carson Ibrahim MD [address] [address] PCP - General 11/20/23 Imer Sevilla MD [address] [address] Consulting Physician Radiation Oncology 02/27/24 Viky Menon MD [address] [facility] [address] [place] [address] Consulting Physician Medical Oncology 04/21/24 Amelia Freeman, RN Registered Nurse Hematology and Oncology 05/13/24 documented as of this encounter
--- OUTSIDE RECORDS SUMMARY | 2024-09-27 10:49 | XMS_ITS | Encounter Summary ---
Author Organization Healthcare Address [address] [place] [address] Care Team Providers Care Medical Staff Services Manager Name Role Phone Crason Ibrahim MD Primary Care Provider + [phone] Imer Sevilla MD Unavailable Vkiy Menon MD Unavailable [phone] Amelia Freeman RN Unavailable Unavailable Reason for Visit * Reason Comments Resource Navigation Encounter Details Date Type Department Care Team (Late st Contact Info) Description 08/23/2024 Social Work Psych Oncology [address] [place] [address] Tamar Cruz Social History Tobacco Use Types [...] in a custodial (including now)? No 01/08/2024 Housing Stability Vital Sign Answer Preet e Recorded In the last 12 months, was t here a time when you were not able to pay the mortgage or rent on time? No 07/28/2024 In the past 12 months, how m any times have you moved where you were living? 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 Pt was appreciative for the assistance. Pt stated that hissister might bring him to his appts on 09/08, however, requested to keep transportation scheduled until this was confirmed. INSTRUCTOR PHYSICAL expressed understanding and encouraged pt to follow up should changes beneeded. INSTRUCTOR PHYSICAL inquired of pt wellbeing. Pt stated he [...] pt completed his 6 weeks of antibiotics. INSTRUCTOR PHYSICAL expressed understanding and encouraged pt to be mindful of how he was feeling and to discuss this with his providers as needed. Pt inquired of next steps to receive dentures. Pt stated that he was referred to general dentistry and was informed that they were unable to assist. INSTRUCTOR PHYSICAL informed pt that a referral tooral surgery was placed on 08/12 and that he should receive follow up soon for an appt. INSTRUCTOR PHYSICAL additionally committed to relaying this question to provider RN to ensure this is a topic of conversation for pts upcoming clinic appt. Pt was appreciative for the assistance. Pt denied additional questions or needs at this time. INSTRUCTOR PHYSICAL encouraged pt to follow up should additional needs arise. INSTRUCTOR PHYSICAL remains available ongoing prn. Tamar Cruz BREAST PULLER, INSTRUCTOR PHYSICAL [phone] documented in this encounter Plan of Treatment Upcoming Encounters Date Type Department Care Team (Late st Contact Info) Description 10/06/2024 11:45 AM EDT Office Visit Pav CC Head, Neck & Respiratory [address] [facility], 2nd [place] [address] Matias Eldridge MD 800 [facility] [address]nd [place] [address] 12/13/2024 10:00 AM EDT Office Visit Pav CC Head, Neck & Respiratory [address] [facility], [address]nd [place] [phone] Viky Menon MD 800 [facility] [address] [place] [address] 12/13/2024 1:00 PM EDT Appointment PAV CC Radiation [id number] [place] [phone] Imer Sevilla MD [address] [facility] [address] [place] [phone] documented as of this encounter Visit Diagnoses [...] documented as of this encounter Care Teams Medical Staff Services Manager Relationship Specialty Start Date End Date Carson Ibrahim MD [id number] [place] [address] PCP - General 11/20/23 Imer Sevilla MD 800 [facility] [address] [place] [address] Consulting Physician Radiation Oncology 02/27/24 Viky Menon MD 800 [facility] [address] [facility] [address] [place] [address] Consulting Physician Medical Oncology 04/21/24 Amelia Freeman, RN Registered Nurse Hematology and Oncology 05/13/24 documented as of this encounter
--- OUTSIDE RECORDS SUMMARY | 2024-09-27 10:49 | XMS_ITS | Encounter Summary ---
Author Organization Healthcare Address [address] [place] [address] Care Team Providers Care Barbed Wire Machine Operator Name Role Phone Carson Ibrahim MD Primary Care Provider + [phone] Imer Sevilla MD Unavailable Viky Menon MD Unavailable [phone] Amelia Freeman RN Unavailable Unavailable Reason for Visit * Reason Comments Resource Navigation Encounter Details Date Type Department Care Team (Late st Contact Info) Description 09/07/2024 Social Work Psych Oncology [address] [place] [address] Tamar Cruz Social History Tobacco Use Types [...] a senior living (including now)? 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 Pt disclosed thathe had an appt for 09/23 to see dentistry and would need medicaid transportation. MOLD COOLER was able to scheduled transportation for 09/23 with 11:30 AM worm picker time (confirmation [id number]). MOLD COOLER relayed this information to the pt. Pt was appreciative for the assisitance. Pt disclosed that he recently was told he had heart failure. Pt stated that he planned to inform his provider of this during his appt tomorrow. MOLD COOLER encouraged pt to talk to his provider for additional guidance on how this may affect his care. Pt disclosed due to this dx he will not be able to return to work and has filed for SSDI. Pt stated he filed approximately 2 months ago and has yet to hear of his approval status. MOLD COOLER informed pt that sometimes individuals are denied and encouraged pt to appeal this if needed. MOLD COOLER encouraged pt to follow up should any documents be needed regarding his care. Pt was understanding and agreed to follow up as needed. Pt expressed that he was hopeful to get to go back to work and expressed sadness over not being able to. MOLD COOLER discussed prioritizing his health and care at this time. MOLD COOLER additionally highlighted some positive aspects in that he will be discussing dentures during his upcoming dental appt. Pt expressed gladness in this and was hopeful he could get them. Pt worried if his insurance would cover this. MOLD COOLER encouraged pt to work with his providers regarding the orders for his dentalcare. MOLD COOLER additionally educated pt of [facility] that he might be eligible for that could assist with dental care and dentures if needed. Pt was appreciative for the information. Pt lastly inquired offinancial assistance for bills until he is approved for SSDI. MOLD COOLER discussed with pt additional moes way referral and encouraged him to email bills he is needing assistance with. Pt emailed current bills to MOLD COOLER. MOLD COOLER was able to submit SW referral on pt behalf and MOLD COOLER committed to following up with updates as they are received. Pt was appreciative for the assistance and denied additional needs at this time. MOLD COOLER encouraged pt to follow up should needs or questions arise. MOLD COOLER remains available ongoing prn. Electronically Signed by: Tamar Cruz - 09/07/2024 - 4:49 PM documented in this encounter Plan of Treatment Upcoming Encounters Date Type Department Care Team (Late st Contact Info) Description 10/06/2024 11:45 AM EDT Office Visit Pav CC Head, Neck & Respiratory [address] [facility], 2nd [place] [address] Matias Eldridge MD [address] [facility] [address]nd [place] [address] 12/13/2024 10:00 AM EDT Office Visit Pav CC Head, Neck & Respiratory [address] [facility], [address]nd [place] [phone] Viky Menon MD 800 [facility] [address] [place] [address] 12/13/2024 1:00 PM EDT Appointment P[facility] CC Radiation [id number] [place] [address] Imer Sevilla MD [address] [place] [address] documented as of this encounter Visit Diagnoses [...] documented as of this encounter Care Teams Barbed Wire Machine Operator Relationship Specialty Start Date End Date Carson Ibrahim MD [address] [place] [address] PCP - General 11/20/23 Imer Sevilla MD [address] [phone] Consulting Physician Radiation Oncology 02/27/24 Viky Menon MD [address] [place] [address] Consulting Physician Medical Oncology 04/21/24 Amelia Freeman, RN Registered Nurse Hematology and Oncology 05/13/24 documented as of this encounter
--- OUTSIDE RECORDS SUMMARY | 2024-09-27 10:49 | XMS_ITS | Clinical Summary ---
Author Organization [facility] Address [address] 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 GERD (gastroesophageal reflux disease) Overview (01/07/2024): [...] 01/07/2024 High blood pressure 01/01/2024 01/07/20 24 Encounters Date Type Department Care Team Description 09/23/2024 1:45 PM EDT Evaluation [facility] [address] [address] Kelsey Cerda, MARQUEZ Edentulism (Primary Dx) 09/23/2024 Travel 09/20/2024 Social Work Psych Oncology [address] [place] [phone] Cruz, Tamar L 09/14/2024 Telephone [facility] Head[facility] Neck & Respiratory 800 [facility], [address]nd [place] [address] Matias Eldridge MD 09/13/2024 Social Work Psych Oncology [address] [place] [phone] Cruz, Tamar L 09/10/2024 9:13 AM EDT - 09/10/2024 11:59 PM EDT Hospital Encounter [facility] Radiation 800 [facility] [place]. [id number] [address] Imer Sevilla MD Secondary malignant neoplasm lymph nodes of head, face and neck (CMS/HCC) (Primary Dx) Discharge Disposition: Still a Patient 09/10/2024 Travel 09/10/2024 Social Work Psych Oncology [address] [place] [address] Cruz, Tamar L 09/08/2024 10:45 AM EDT Office Visit [facility] Head[facility] Neck & Respiratory 800 [facility], [address] [place] [address] Matias Eldridge MD Squamous cell carcinoma, lip (Primary Dx); Malignant neoplasm of external lower lip; Dysphagia, oropharyngeal 09/08/2024 Travel 09/07/2024 Social Work Psych Oncology [address] [place] [address] Cruz, Tamar L 09/02/2024 9:30 AM EDT Office Visit [facility] [address] [place] [phone] Emil Johnson MD MRSA bacteremia (Primary Dx); Acute osteomyelitis of left clavicle (CMS/HCC) 09/02/2024 Refill [facility] Head[facility] Neck & Respiratory 800 [facility], [address] [place] [address] Willie Penaloza MD 09/02/2024 Travel 08/31/2024 Social Work Psych Oncology [address] [place] [address] Cruz, Tamar L 08/23/2024 Social Work Psych Oncology [address] [place] [address] Cruz, Tamar L 08/12/2024 8:53 AM EDT - 08/12/2024 11:59 PM EDT Hospital Encounter [facility] Radiation 800 [facility]. 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) Discharge Disposition: Still a Patient 08/12/2024 8:30 AM EDT Office Visit [address] [address] Emil Johnson MD Acute osteomyelitis of left clavicle (CMS/HCC) (Primary Dx); Squamous cell carcinoma, lip; MRSA bacteremia; Bacteremia; Other acute osteomyelitis, other site (CMS/HCC) 08/12/2024 Travel 08/10/2024 11:48 AM EDT - 08/10/2024 11:59 PM EDT Hospital Encounter [facility] PET Scan [address] [place] [phone] Discharge Disposition: Home or Self Care 08/10/2024 11:48 AM EDT - 08/10/2024 11:59 PM EDT Hospital Encounter [facility] PET Scan [address] Squamous cell carcinoma of neck; Malignant neoplasm of external lower lip Discharge Disposition: Home or Self Care 08/10/2024 Travel 08/09/2024 Telephone [facility] Radiation 800 [facility]. [id number] [address] Imer Sevilla MD 08/09/2024 Social Work Psych Oncology [address] [place] [address] Cruz, Tamar L 08/04/2024 Social Work Psych Oncology [address] Cruz, Tamar L 08/04/2024 Refill [facility] Head, Neck & Respiratory 800 [facility], 2nd Floor [address] Willie Penaloza MD 07/30/2024 External Documentation Encounter [facility] [address] [place] [phone] Tanya Hamilton RN 07/29/2024 Social Work Psych Oncology [address] [place] [phone] Cruz, Tamar L 07/29/2024 Clinical Support [facility] [address] [place] [phone] Joe Sepulveda, PharmD 07/26/2024 Orders Only [facility] Head, Neck & Respiratory 800 [facility], [address] [place] [address] Willie Penaloza MD 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); Squamous cell carcinoma, lip; Squamous cell carcinoma of neck; Secondary malignant neoplasm lymph nodes of head, face and neck ([facility]/HCC) 07/26/2024 Travel 07/22/2024 12:28 PM EDT - 07/28/2024 4:19 PM EDT Hospital Encounter PAV H Inpatient 800 [place] [address] Rashad Avalos MD Dweik, MD Judah Esteban Roger L, MD Wimberly, Katherine E, MD Acute osteomyelitis of sternum (CMS/HCC) (Primary Dx); Squamous cell carcinoma, lip; Secondary malignant neoplasm lymph nodes of head, face and neck (CMS/HCC); Acute osteomyelitis of left clavicle (CMS/HCC); HFrEF (heart failure with reduced ejection fraction) (CMS/HCC) Discharge Disposition: Home-Health Care [facility] 07/22/2024 9:30 AM EDT Office Visit [facility] Head[facility] Neck & Respiratory 800 [facility], [address] [place] [address] Willie Penaloza MD Bacteremia (Primary Dx); Malignant neoplasm of external lower lip; Other acute osteomyelitis, other site (CMS/HCC); Cancer related pain; CINV (chemotherapy-induc ed nausea and vomiting) 07/22/2024 9:15 AM EDT Clinical Support [facility] Head[facility] Neck [facility] Respiratory [address] [address] Squamous cell carcinoma, lip; Secondary malignant neoplasm lymph nodes of head, face and neck (CMS/HCC); Dysphagia, oropharyngeal phase 07/22/2024 Social Work Psych Oncology [address] [place] [address] Tamar Cruz L 07/22/2024 Travel 07/21/2024 2:02 PM EDT - 07/21/2024 11:59 PM EDT Hospital Encounter [facility] A Radiology [address] [place] [address] Squamous cell carcinoma, lip; Secondary malignant neoplasm lymph nodes of head, face and neck (CMS/HCC); Dysphagia, oropharyngeal phase Discharge Disposition: Home or Self Care 07/21/2024 Travel 07/20/2024 Social Work Psych Oncology [address] [place] [address] Tamar Cruz L 07/16/2024 3:15 PM EDT Pre-Admission Testing [facility] [address], [address] [place] [address] 07/16/2024 Travel 07/14/2024 9:10 AM EDT Consult [facility] Otolaryngology [address], [address] [place] [address] Charmaine Romo MD Subjective tinnitus of left ear (Primary Dx) 07/14/2024 8:30 AM EDT Office Visit [facility] Audiology [address], [address]rd [place] [address] Holley Bonilla, AuD Sensorineural hearing loss (SNHL) of both ears (Primary Dx); Tinnitus of left ear 07/14/2024 Travel 07/12/2024 Social Work Psych Oncology [address] [place] [address] Cruz, Tamar L 07/08/2024 Social Work Psych Oncology [address] [place] [address] Cruz, Tamar L 07/07/2024 4:00 PM EDT Office Visit [facility] Adult Dentistry [address] [address] Yayo Stone A Edentulism (Primary Dx) 07/07/2024 Travel 07/07/2024 Social Work Psych Oncology [address] [place] [address] Cruz, Tamar L 07/06/2024 Social Work Psych Oncology [address] [place] [address] Cruz, Tamar L 07/06/2024 Refill [facility] Head[facility] Neck [facility] Respiratory [address] [address] Amelia Freeman RN 07/05/2024 Orders Only External Location [address] [place] [address] Carson Ibrahim MD 07/05/2024 Social Work Psych Oncology [address] [place] [address] Julieta Price 07/05/2024 Telephone [facility] Head[facility] Neck [facility] Respiratory [address] [address] Willie Penaloza MD 07/05/2024 Telephone [facility] Head[facility] Neck [facility] Respiratory [address] [address] Matias Eldridge MD 07/02/2024 Social Work Psych Oncology [address] [place] [address] Tamar Cruz 07/02/2024 Telephone [facility] Head, Neck & Respiratory 800 [facility], [address] [place] [address] Matias Eldridge MD 06/30/2024 Orders Only External Location [address] [place] [address] Provider, External 06/29/2024 Orders Only External Location [address] [place] [address] Mara Schofield, DO 06/29/2024 Orders Only External Location [address] [place] [address] Provider, External 06/29/2024 Orders Only External Location [address] [place] [address] Provider, External from Last 3 Months Immunizations Immunization Administration [...] any time in the past 12 [facility], were you homeless or living in [...] drink first t idalia in the morning (EYE-BUDGET EXAMINER) to steady your nerves or to get [...] F) 09/23/2024 1:25 PM EDT Respiratory Rate 18 09/10/2024 9:47 AM EDT Oxygen Saturation 98% 09/23/2024 1:25 PM EDT Inhaled Oxygen Concentration - - Weight 87.5 kg (192 lb 14.4 oz) 09/23/2024 1:25 PM EDT Height 177.8 cm (5' 10 ) 09/23/2024 1:25 PM EDT Body Mass Index 27.68 09/23/2024 1:25 PM EDT Plan of Treatment Upcoming Encounters Date Type Department Care Team (Late st Contact Info) Description 10/06/2024 11:45 AM EDT Office Visit [facility] Head[facility] Neck & Respiratory 800 [facility], [address]nd [place] [address] Matias Eldridge MD 800 [facility] [address] [place] [address] 12/13/2024 10:00 AM EDT Office Visit [facility] Head, Neck & Respiratory 800 [facility], [address] [place] [address] Willie Penaloza MD 800 [facility] [address] [place] [address] 12/13/2024 1:00 PM EDT Appointment [facility] Radiation [id number] [place] [address] Imer Sevilla MD [address] [place] [address] Health Maintenance Due Date Last Done Comments Dental Prophylaxis 1974 Dental X-Ray: Bitewings 1974 [...] 2019 Sigmoidoscopy 2019 [facility]-Colorectal Cancer Screening 2019 [id number] Vaccine (2 - Gurpreet risk series) 07/25/2020 06/27/2020 [facility]-Influenza Vaccine (#1) 2024 01/11/2020 [facility]-Diabetes: Hemoglobin A1C 01/19/2025 07/22/2024, 01/07/2024 [facility]- SDOH Screenings 01/28/2025 [facility]-Adult SDOH Screenings 01/28/2025 07/28/2024 Dental Oral Exam 03/27/2025 09/23/2024 [facility]-Depression Screening 09/02/2025 09/02/2024, 08/22 [facility]-HIV Screening Completed 01/16/2024 [facility]-Hepatitis C Screening Completed 01/16/2024 [facility]-Obesity Intervention Completed 025, 09/02/2024, 08/12/2024, Additional history exists HPV Vaccines Aged Out [...] this topic Medical Devices Implanted Type Area Rice Milling Supervisor Device Identifier Shelf Expiration Date Model / Serial / Lot Model Anatomical Mandible White - [id number] Implanted:Qty: 1 on 01/06/2024 by Jyothi Vega MD at [facility]01/05/2025 [id number] / / Plate Ti Pspc Matrixmand Ang Recon 7x23h/2mm Lt - [id number] Implanted:Qty: 1 on 01/06/2024 by Jyothi Vega MD at [facility]01/05/2025 [id number] / / Screw 2.0mm Matrixmandible St 8mm - [id number] Implanted:Qty: 3 on 01/06/2024 by Jyothi Vega MD at [facility]01/05/2025 [id number] .01 / / Screw 2.0mm [employer] [address] 6mm - [id number] Implanted:Qty: 2 on 01/06/2024 by Jyothi Vega MD at [facility]01/05/2025 [id number] .01 / / Screw 2.4mm [employer] St 8mm - [id number] Implanted:Qty: 2 on 01/06/2024 by Jyothi Vega MD at [facility]01/05/2025 [id number] .01 / / Screw 2.4mm [employer] St 10mm - [id number] Implanted:Qty: 2 on 01/06/2024 by Jyothi Vega MD at [facility]01/05/2025 [id number] .01 / / Screw 2.4mm Matrixmandible St 12mm - [id number] Implanted:Qty: 2 on 01/06/2024 by Jyothi Vega MD at [facility]-[id number] 01/05/2025503.442 .01 / / Screw 2.4mm Matrixmandible St 14mm - [id number] Implanted:Qty: 2 on 01/06/2024 by Jyothi Vega MD at [facility]-[id number] 01/05/2025503.444 . / / Procedures Procedure Name Priority Date/Time Associated Diagnosis Comments COMPREHENSIVE ORAL EVALUATION - NEW OR ESTABLISHED PATIENT Routine 09/23/2024 1:45 PM EDT Edentulism PICC REMOVAL (CLINIC-PERFORMED) Routine 09/02/2024 9:05 AM [...] UNSOLICITED RESULTS Routine 07/23/2024 4:36 PM EDT WI NEG PRESSURE WOUND THERAPY NON DME >50 [...] resultswithin the time period is included. Pathologist [facility] External Creatinine Blood 0.71 mg/dL Blood Venous blood specimen / Unknown 08/30/2024 Historical Provider LAB BLOOD ORDERABLES Neda l Result * CBC and Differential (08/30/2024) Only the most recent of10 resultswithin the time period is included. External WBC 6.2 4.5 - 13.0 10e3/uL External Red Blood Cell (RBC) 4.26 External Hemoglobin (Hgb) 12.50 External Hematocrit (Hct) 36.7 External Platelet Count (Plt) 260 External Neutrophil Abs 4.44 External Lymphocyte-Absol dasha 1.08 External Monocyte Absolute 0.35 External Eos-Absolute 0.22 0.00 - 0.50 x1000/uL Blood Venous blood specimen / Unknown 08/30/2024 Result [facility] MD LAB BLOOD ORDERABLES Neda l Result * C-Reactive Protein, Plasma (08/30/2024) Only the most recent of6 resultswithin the time period is included. External C-Reactive Protein(CRP) 11.6 <5.0 mg/L Blood Venous blood specimen / Unknown 08/30/2024 Result [facility] MD LAB BLOOD ORDERABLES Neda l Result * Urea Nitrogen, Plasma (08/30/2024) Only the most recent of4 resultswithin the time period is included. Pathologist [facility] External BUN 15 Blood Venous blood specimen / Unknown 08/30/2024 Result [facility] MD LAB BLOOD ORDERABLES Neda l Result * CK (08/30/2024) Only the most recent of5 resultswithin the time period is included. Pathologist [facility] External Creatine Kinase 63 39 - 308 U/L Blood Venous blood specimen / Unknown 08/30/2024 Result [facility] MD LAB BLOOD ORDERABLES Neda l Result * Hepatic Function Panel (08/30/2024) Only the most recent of4 resultswithin the time period is included. External Alkaline Phosphatase 78 External Bilirubin Total 0.9 mg/dL External ALT (SGPT) 14 External AST (SGOT) 18 Blood Venous blood specimen / Unknown 08/30/2024 Result [facility] MD LAB BLOOD ORDERABLES Neda l Result * Comprehensive Metabolic Panel, Plasma (08/23/2024) Only the most recent of2 resultswithin the time period is included. External BUN 20 External Creatinine Blood 0.95 mg/dL External AST (SGOT) 19 External ALT (SGPT) 16 External Alkaline Phosphatase 77 External Bilirubin Total 0.9 mg/dL Blood Venous blood specimen / Unknown 08/23/2024 us Historical Provider LAB BLOOD ORDERABLES Neda l Result [...] scanner: Siemens Biograph 40 mCT. PET/CT acquisition: Hxgvcl-sc-rdz-thighs, plus magnification (zoomed) neck. Standardized uptake value (SUV): Corrected for body weight only. CT: Low-dose, qds-pfgdih-nxfj, without intravenous contrast. TOTAL DLP (Dose Length [...] scanner: Siemens Biograph 40 mCT. PET/CT acquisition: Udayum-fa-ldx-thighs, plus magnification (zoomed)neck. Standardized uptake value (SUV): Corrected for body weight only. CT: Low-dose, nla-miqlxr-smxv, without intravenous contrast. TOTAL DLP (Dose Length [...] signing this report, I, the attending physician, atttiaraat I have personally reviewed the images/data for [...] - 99 mg/dL 07/28/2024 11:42 AM EDT [facility] Comment:Accuracy of a glucos e [...] for testing. Comment 07/28/2024 11:42 AM EDT [facility] Boiler Tube Blower ID Gaye Hodges 07/28/2024 11:42 AM EDT [facility] Device ID [id number] 07/28/2024 11:42 AM EDT [facility] Specimen Type POC Capillary 07/28/2024 11:42 AM EDT [facility] Blood Capillary blood specimen / Unknown 07/28/2024 11:38 AM EDT 07/28/2024 11:42 AM EDT us Jennifer Vallejo MD LAB POINT OF CAR E TEST DOCKED DEVICE UNSOLICITED RESULTS Final Result [facility] [address] [place] [address] * PICC SINGLE LUMEN (SMARTFORM LINK) (07/28/2024 10:31 AM EDT) Narrative Garcia Lan RN - 07/28/2024 10:31 AM EDT Garcia Lan RN 07/28/2024 10:34 AM Insert PICC line Date/Time: 07/28/2024 10:31 AM Performed by: Garcia Lan RN Authorized by: Jennifer Vallejo MD [place] Protocol: Written consent obtained?: Yes Risks and [...] infection Patient position: Supine Catheter Lot #: [id number] Catheter bowling floor manager: Bard Catheter placed: Single lumen Catheter size: 4 Fr Catheter trimmed length: 44 Catheter threaded length: 43 Vein placed in: SVC Catheter cm indwellin Catheter cm outside: 1 Placement confirmed by: Kaitlin De Los SantosG technology Pre-procedure: Landmarks identified Ultrasound guidance: Yes [...] - 320 U/L 07/28/2024 4:39 AM EDT [facility] Blood Venous blood specimen / Unknown Venipuncture / Unknown 07/28/2024 3:55 AM EDT 07/28/2024 4:06 AM EDT us Jennifer Vallejo MD LAB BLOOD ORDERABLES Fin al Result [facility] [address] [place] [address] * Basic metabolic panel (07/28/2024 3:55 AM EDT) Only the most recent of4 resultswithin the time period is included. Glucose, Plasma 89 74 - 99 mg/dL 07/28/2024 4:39 AM EDT [facility] BUN, Plasma 9 7 - 21 mg/dL 07/28/2024 4:39 AM EDT [facility] Creatinine, Plasma 0.71 0.70 - 1.20 mg/dL 07/28/2024 4:39 AM EDT [facility] BUN/Creatinine Ratio 13 07/28/2024 4:39 AM EDT [facility] Sodium, Plasma 137 136 - 145 mmol/L 07/28/2024 4:39 AM EDT [facility] Potassium, Plasma 3.8 3.6 - 4.9 mmol/L 07/28/2024 4:39 AM EDT [facility] Chloride, Plasma 102 97 - 107 mmol/L 07/28/2024 4:39 AM EDT [facility] CO2, Plasma 26 22 - 29 mmol/L 07/28/2024 4:39 AM EDT [facility] Anion Gap 9 6 - 16 mmol/L 07/28/2024 4:39 AM EDT [facility] Total Calcium, Plasma 9.7 8.9 - 10.2 mg/dL 07/28/2024 4:39 AM EDT [facility] eGFRcr 111.8 mL/min/1.7 3m*2 07/28/2024 4:39 AM EDT [facility] Comment:Reported eGFRcr in m L/min/1.73m2 is based the CKD-EPI 2020 equation that does not use a race coefficient. Blood Venous blood specimen / Unknown Venipuncture / Unknown 07/28/2024 3:55 AM EDT 07/28/2024 4:06 AM EDT us Jennifer Vallejo MD LAB BLOOD ORDERABLES Fin al Result [facility] [address] [place] [address] * ECHO, ADULT TRANSTHORACIC COMPLETE (07/26/2024 3:28 PM EDT) BSA 2.08 m2 JHON ISCV Height 177.8 JHON ISCV Weight 90.3 JHON ISCV PA acc time 100 msec JHON ISCV mean PAP 34 mmHg JHON ISCV PA WI(ACCEL) 36.2 mmHg JHON ISCV PA acc slope [...] ISCV LV MASS(C)D 146 g JHON ISCV UK CV ECHO LV MASS INDEX 70 g/m2 [...] is no recent study available for direct vlry-vx-ibhn comparison. Left Ventricle The left ventricle is [...] is no recent study available for direct ukru-zy-twgj comparison. us Reji Daly MD CV ECHO PROCEDURES Final Result * Fungal Culture, Sterile Body Fluid (NOT CSF) and JESUS (07/26/2024 9:25 AM EDT) Culture No Fungal Growth at 3 Weeks 08/17/2024 7:00 AM EDT [facility] JESUS No fungal elements seen 08/17/2024 7:00 AM EDT [facility] Joint Fluid Joint fluid specimen / Unknown Non-blood Collection / Unknown 07/26/2024 9:25 AM EDT 07/26/2024 9:25 AM EDT us Reji Daly MD LAB MICROBIOLOGY - [facility] Final Result [facility] [address] [place] [address] * Body Fluid Culture and Gram Stain (07/26/2024 9:25 AM EDT) Culture No growth at day 4 2024 9:13 AM EDT [facility] Gram Stain Result Rare Polymorphonuclear leukocytes 07/29/2024 9:13 AM EDT [facility] Gram Stain Result No organisms seen 07/29/2024 9:13 AM EDT [facility] Joint Fluid Joint fluid specimen / Unknown Non-blood Collection / Unknown 07/26/2024 9:25 AM EDT 07/26/2024 9:25 AM EDT us Reji Daly MD [facility] Final Result [facility] [address] [place] [address] * CT Guided Inj Asp Intermediate Joint [...] CT table in the supine position, and shuttle repairer CT images were obtained to evaluate for [...] the procedure well, [facility]. Total DLP (Dose-Length [...] on 07/26/2024 9:31 AM Reji Daly MD [facility] PROCEDURES Final Result * (ABNORMAL) Body Fluid Cell Count w/ Diff (07/26/2024 7:56 AM EDT) Color, Body fluid Red LAB HEMATOLOGY METHOD 07/26/2024 3:16 PM EDT [facility] Appearance, Body fluid Cloudy(A) LAB HEMATOLOGY METHOD 07/26/2024 3:16 PM EDT [facility] Volume, Body fluid 0.2 cc LAB HEMATOLOGY METHOD 07/26/2024 3:16 PM EDT [facility] Fluid Container Specimen received in miscellaneous container LAB HEMATOLOGY METHOD 07/26/2024 3:16 PM EDT [facility] Red Blood Cell Count, Body fluid 36,000 uL LAB HEMATOLOGY METHOD 07/26/2024 3:16 PM EDT [facility] Total Nucleated Cell Count, Body fluid 79 uL LAB HEMATOLOGY METHOD 07/26/2024 3:16 PM EDT [facility] Neutrophils %, Body fluid 88 % LAB HEMATOLOGY METHOD 07/26/2024 3:16 PM EDT [facility] Lymphocytes %, Body fluid 5 % LAB HEMATOLOGY METHOD 07/26/2024 3:16 PM EDT [facility] Monocytes/Macr ophages %, Body fluid 5 % LAB HEMATOLOGY METHOD 07/26/2024 3:16 PM EDT [facility] Eosinophils %, Body fluid 2 % LAB HEMATOLOGY METHOD 07/26/2024 3:16 PM EDT [facility] Lining/Mesothe lial Cells %, Body fluid 0 % LAB HEMATOLOGY METHOD 07/26/2024 3:16 PM EDT [facility] Neutrophils Absolute (PMN), Body fluid 70 uL LAB HEMATOLOGY METHOD 07/26/2024 3:16 PM EDT [facility] Lymphocytes Absolute, Body fluid 4 uL LAB HEMATOLOGY METHOD 07/26/2024 3:16 PM EDT [facility] Monocytes/Macr ophages Absolute, Body fluid 4 uL LAB HEMATOLOGY METHOD 07/26/2024 3:16 PM EDT [facility] Eosinophils Absolute, Body fluid 2 uL LAB HEMATOLOGY METHOD 07/26/2024 3:16 PM EDT [facility] Basophils Absolute, Body fluid 0 uL LAB HEMATOLOGY METHOD 07/26/2024 3:16 PM EDT [facility] Lining/Mesothe lial Cells Absolute, Body fluid 0 uL LAB HEMATOLOGY METHOD 07/26/2024 3:16 PM EDT [facility] Comment, Body fluid None LAB HEMATOLOGY METHOD 07/26/2024 3:16 PM EDT [facility] Basophils %, Body fluid 0 % LAB HEMATOLOGY METHOD 07/26/2024 3:16 PM EDT [facility] Joint Fluid Drainage fluid specimen / Unknown 07/26/2024 7:56 AM EDT 07/26/2024 9:18 AM EDT us Reji Daly MD LAB BODY FLUIDS AND STOOLS ORDERABLES NO SPECIMEN TYPE/SOURCE Final Result [facility] [address] [place] [address] * Body fluid, cytospin, pathologist interpretation (07/26/2024 7:56 AM EDT) Specimen Type Joint Fluid LAB HEMATOLOGY METHOD 07/27/2024 5:59 PM EDT [facility] Specimen Source, Body Fluid Drainage Fluid LAB HEMATOLOGY METHOD 07/27/2024 5:59 PM EDT [facility] Clinical Diagnosis, Body Fluid Concern for left sternoclavicular septic arthritis and adjacent osteomyelitis. Recent MRSA bacteremia. Hx of SCC of neck s/p segmental mandibulectomy, left radical neck dissection LAB HEMATOLOGY METHOD 07/27/2024 5:59 PM EDT [facility] Interpretation , Body Fluid Bloody fluid with no evidence of malignancy. A resident was involved in the service. I attest I examined the relevant preparations for the specimens and confirmed the diagnosis or interpretation. 07/27/2024 5:59 PM EDT [facility] Pathologist Signature, Body Fluid 07/27/2024 5:59 PM EDT [facility] Comment:Reviewed by: Evangelista Sosa MD LAB CP ASR DISCLAIMER Yes 07/27/2024 5:59 PM EDT [facility] Joint Fluid Drainage fluid specimen / Unknown 07/26/2024 7:56 AM EDT 07/26/2024 9:18 AM EDT us Reji Daly MD LAB BODY FLUIDS AND STOOLS ORDE [place] Final Result Performing Organization Address [facility] Co de Phone Number [facility] [address] [place] [address] * Vancomycin, Peak, Plasma Please draw ~2 [...] - 40.0 ug/mL 07/26/2024 7:17 AM EDT [facility] Blood Venous blood specimen / Unknown Venipuncture / Unknown 07/26/2024 6:38 AM EDT 07/26/2024 6:43 AM EDT Narrative [facility] - 07/26/2024 7:17 AM EDT Therapeutic Peak level: 20-40ug/mL Supra-therapeutic Peak level: >40 ug/mL us Reji Daly MD LAB BLOOD ORDERABLES Final Resu lt Performing Organization Address [facility]/ZIP Co de Phone Number [facility] [address] [place] [address] * Vancomycin, Trough, Plasma Please draw ~30 [...] - 20.0 ug/mL 07/26/2024 4:10 AM EDT [facility] Blood Venous blood specimen / Unknown Venipuncture / Unknown 07/26/2024 3:25 AM EDT 07/26/2024 3:32 AM EDT Narrative [facility] - 07/26/2024 4:10 AM EDT Therapeutic Trough level: 10-20ug/mL Supra-therapeutic Trough level: >20 ug/mL us Reji Daly MD LAB BLOOD ORDERABLES Final Resu lt [facility] [address] [place] [address] * Morphology (07/24/2024 3:39 AM EDT) RBC Morphology RBC Morphology Consistent with Indices and RDW LAB HEMATOLOGY METHOD 07/24/2024 5:27 AM EDT [facility] Platelet Estimate Platelet smear estimate consistent with automated count LAB HEMATOLOGY METHOD 07/24/2024 5:27 AM EDT [facility] Blood Venous blood specimen / Unknown Venipuncture / Unknown 07/24/2024 3:39 AM EDT 07/24/2024 3:44 AM EDT us Reji Daly MD LAB BLOOD ORDERABLES Final Resu lt [facility] [address] [place] [address] * (ABNORMAL) Manual Differential (07/24/2024 3:39 AM EDT) Blasts % 0 % LAB HEMATOLOGY METHOD 07/24/2024 5:27 AM EDT [facility] Promyelocytes % 0 % LAB HEMATOLOGY METHOD 07/24/2024 5:27 AM EDT [facility] Myelocytes % 0 % LAB HEMATOLOGY METHOD 07/24/2024 5:27 AM EDT [facility] Metamyelocytes % 0 % LAB HEMATOLOGY METHOD 07/24/2024 5:27 AM EDT [facility] Neutrophils % 58 % LAB HEMATOLOGY METHOD 07/24/2024 5:27 AM EDT [facility] Lymphocytes % 20 % LAB HEMATOLOGY METHOD 07/24/2024 5:27 AM EDT [facility] Reactive Lymphocytes % 1 % LAB HEMATOLOGY METHOD 07/24/2024 5:27 AM EDT [facility] Monocytes % 5 % LAB HEMATOLOGY METHOD 07/24/2024 5:27 AM EDT [facility] Eosinophils % 14 % LAB HEMATOLOGY METHOD 07/24/2024 5:27 AM EDT [facility] Basophils % 2 % LAB HEMATOLOGY METHOD 07/24/2024 5:27 AM EDT [facility] Blasts Absolute 0.00 10*3/UL LAB HEMATOLOGY METHOD 07/24/2024 5:27 AM EDT [facility] Promyelocytes Absolute 0.00 10*3/uL LAB HEMATOLOGY METHOD 07/24/2024 5:27 AM EDT [facility] Myelocytes Absolute 0.00 10*3/uL LAB HEMATOLOGY METHOD 07/24/2024 5:27 AM EDT [facility] Metamyelocytes Absolute 0.00 10*3/uL LAB HEMATOLOGY METHOD 07/24/2024 5:27 AM EDT [facility] Neutrophils Absolute 2.04 1.60 - 6.10 10*3/uL LAB HEMATOLOGY METHOD 07/24/2024 5:27 AM EDT [facility] Lymphocytes Absolute 0.70(L) 1.20 - 3.90 10*3/uL LAB HEMATOLOGY METHOD 07/24/2024 5:27 AM EDT [facility] Reactive Lymphocytes Absolute 0.04 10*3/uL LAB HEMATOLOGY METHOD 07/24/2024 5:27 AM EDT [facility] Monocytes Absolute 0.18(L) 0.30 - 0.90 10*3/uL LAB HEMATOLOGY METHOD 07/24/2024 5:27 AM EDT [facility] Eosinophils Absolute 0.49 0.00 - 0.50 10*3/uL LAB HEMATOLOGY METHOD 07/24/2024 5:27 AM EDT [facility] Basophils Absolute 0.07 0.00 - 0.10 10*3/uL LAB HEMATOLOGY METHOD 07/24/2024 5:27 AM EDT [facility] Blood Venous blood specimen / Unknown Venipuncture / Unknown 07/24/2024 3:39 AM EDT 07/24/2024 3:44 AM EDT us Reji Daly MD LAB BLOOD ORDERABLES Final Resu lt [facility] [address] [place] [address] * [place] NEG PRESSURE WOUND THERAPY NON DME >50 [...] Detected Not Detected 07/25/2024 8:19 AM EDT [facility] Swab (Axilla and Groin) Non-blood Collection / Unknown 07/22/2024 9:10 PM EDT 07/23/2024 12:28 AM EDT Narrative [facility] - 07/25/2024 8:19 AM EDT This PCR assay was developed and its performance characteristics determined by [facility] as appropriate for clinical purposes. This assay has not been cleared or approved by the FDA, but is performed in a CLIA regulated laboratory that is qualified to perform high-complexity testing. us Reji Daly MD LAB MICROBIOLOGY - GENERAL ORDE RABLES Final Result Performing Organization Address City/[facility]/ZIP Co de Phone Number [facility] [address] [place] [address] * Multi Drug Resistance Test (07/22/2024 4:30 PM EDT) Culture No growth at day 1 07/23/2024 1:23 PM EDT [facility] Swab (Nares and Jannette Rectal) Non-blood Collection / Unknown 07/22/2024 4:30 PM EDT 07/22/2024 4:52 PM EDT us eRji Daly MD LAB MICROBIOLOGY - GENERAL ORDE RABLES Final Result Performing Organization Address City/[facility]/ZIP Co de Phone Number [facility] [address] [place] [address] * Blood Culture (Aerobic/Anaerobet Set) (07/22/2024 3:23 PM EDT) Only the most recent of2 resultswithin the time period is included. Culture No growth at day 5 07/27/2024 4:01 PM EDT [facility] Blood Structure of right hand / Unknown Venipuncture / Unknown 07/22/2024 3:23 PM EDT 07/22/2024 3:48 PM EDT Narrative [facility] - 07/27/2024 4:01 PM EDT Low blood volume submitted, results may be compromised us Rashad Avalos MD LAB MICROBIOLOGY - GENERAL ORDERABLES Final Result Performing Organization Address City/[facility]/ZIP Co de Phone Number [facility] [address] [place] [address] * (ABNORMAL) Sed rate, automated (07/22/2024 12:25 PM EDT) Sedimentation Rate 86(H) <20 mm/hr 2024 1:19 PM EDT [facility] Blood Venous blood specimen / Unknown Venipuncture / Unknown 07/22/2024 12:25 PM EDT 07/22/2024 12:27 PM EDT us Rashad Avalos MD LAB BLOOD ORDERABLES Final Result [facility] [address] [place] [address] * Hemoglobin A1c (07/22/2024 12:25 PM EDT) Hemoglobin A1c 5.3 <5.7 % 07/22/2024 7:12 PM EDT [facility] Blood Venous blood specimen / Unknown Venipuncture / Unknown 07/22/2024 12:25 PM EDT 07/22/2024 12:27 PM EDT Narrative [facility] - 07/22/2024 7:12 PM EDT HA1C Interpretive Data: Diagnosis of Diabetes: Diabetic > or = 6.5% Pre-diabetic 5.7 to 6.4% Non-diabetic < or = 5.6% Glycemic Targets for Type I and Type II Diabetics: Non- Adults <7.0% Adults <6.0% Children and Adolescents <7.5% Source: [place] [employer]. Standards of medical care in diabetes,2017. Diabetes Care.2017:40 (suppl 1):S1-S135. us Reji Daly MD LAB BLOOD ORDERABLES Final Resu lt Performing Organization Address City/[facility]/ZIP Co de Phone Number [facility] [address] [place] [address] * Thyroid Stimulating Hormone, Plasma (07/22/2024 8:57 AM EDT) Thyroid Stimulating Hormone, Plasma 2.46 0.40 - 4.20 uIU/mL 07/22/2024 9:45 AM EDT [facility] Blood Venous blood specimen / Unknown Venipuncture / Unknown 07/22/2024 8:57 AM EDT 07/22/2024 9:05 AM EDT us Willie Penaloza MD LAB BLOOD ORDERABLES Final R esult [facility] [address] [place] [id number] * CT Chest w IV Contrast (07/21/2024 [...] Rebecca ging 07/05/2024 11:5 4 AM EDT us Carson Ibrahim MD IMG XR PROCEDURES Final Resu lt * CT OUTSIDE IMAGES (06/29/2024 4:30 PM EDT) Anatomical Region Laterality Modality Computed Tomogra phy 06/29/2024 4:30 PM EDT us Mara Schofield DO IMG CT PROCEDURES Final Result [...] HIV 1/2 Differentiation (01/16/2024 1:23 AM EDT) HIV 1 & 2 Antibody/Antigen Screen Non Reactive Non Reactive 01/16/2024 2:23 AM EDT [facility] Comment:Screening for HIV 1 & 2 antibodies, and P24 antigen is NONREACTIVE. No confirmatory testing is required. Blood Venous blood specimen / Unknown Venipuncture / Unknown 01/16/2024 1:23 AM EDT 01/16/2024 1:42 AM EDT Leon Bob MD LAB BLOOD ORDERABLES Final Re sult [facility] [address] [place] [address] * Hepatitis C Antibody - ED (01/16/2024 1:23 AM EDT) Hepatitis C Antibody Negative Negative 01/16/2024 2:23 AM EDT [facility] Blood Venous blood specimen / Unknown Venipuncture / Unknown 01/16/2024 1:23 AM EDT 01/16/2024 1:42 AM EDT Leon Bob MD LAB BLOOD ORDERABLES Final Re sult Performing Organization Address City/[facility]/ZIP Co de Phone Number [facility] [address] [place] [address] from Last 3 Months or Most Recently Relevant to Health Maintenance Additional Health Concerns Infection Onset Date Last Indicated 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 02/19/2024 Insurance [facility] [facility] [place] [facility] [place] Advance Directives * Full Code [...] Patient has decision-making capacity? Yes Care Teams Rouge Sifter Relationship Specialty Start Date End Date Carson Ibrahim MD [address] [facility] [address] [place] [address] PCP - General 11/20/23 Imer Sevilla MD [address] [facility] [address] [place] [address] Consulting Physician Radiation Oncology 02/27/24 Willie Penaloza MD [address] [place] [address] Consulting Physician Medical Oncology 04/21/24 Amelia Freeman, RN Registered Nurse Hematology and Oncology 05/13/24
--- OUTSIDE RECORDS SUMMARY | 2024-09-27 10:49 | XMS_ITS | Encounter Summary ---
Author Organization Healthcare Address [address] [place] [address] Care Team Providers Care Harvest Contractor Name Role Phone Carson Ibrahim MD Primary Care Provider + [phone] Imer Sevilla MD Unavailable Viky Menon MD Unavailable [phone] Amelia Freeman RN Unavailable Unavailable Reason for Visit * Reason Comments Social Work/navigation Follow-up Encounter Details Date Type Department Care Team (Late st Contact Info) Description 09/10/2024 Social Work Psych Oncology [address] [place] [address] Tamar Cruz Social History Tobacco Use Types [...] in the past 12 m [facility], were you homeless or [...] drink first t idalia in the morning (EYE-ACCOUNT EXECUTIVE SALES REPRESENTATIVE) to steady your nerves or to get [...] Call Disease Status: Established Patient Clinic Location: [facility] Disease Type: Head & Neck Education Provided: Lodging, Financial Support/Aid Intervention Level: 2 Units (1 unit = 15 minutes): 2 Narrative: SKIP TENDER followed up on missed call from pt inquiring of his pick up worker time for his appt today. SKIP TENDER followed up with pt to ensure that he had been picked up by medicaid transportation this morning. Pt was appreciative for the call back and informed SKIP TENDER that he was on his way. SKIP TENDER expressed gladness in this and further informed pt that Familia Holman was able to provide assistance with requested bills. Pt was appreciative for the assistance and denied additional questions or needs at this time. SKIP TENDER encouraged pt to follow up should additional needs arise. SKIP TENDER remains available ongoing prn. Tamar Cruz CATERING SERVICE MANAGER, SKIP TENDER [phone] documented in this encounter Plan of Treatment Upcoming Encounters Date Type Department Care Team (Late st Contact Info) Description 10/06/2024 11:45 AM EDT Office Visit Pav CC Head, Neck & Respiratory [address] [facility], 2nd [place] [address] Matias Eldridge MD [address] [facility] [address] [place] [address] 12/13/2024 10:00 AM EDT Office Visit Pav [facility] Head, Neck & Respiratory [address] 2[address] [place] [address] Viky Menon MD [address] [facility] [address] [facility] [address] [place] [phone] 12/13/2024 1:00 PM EDT Appointment PAV CC Radiation [id number] [place] [phone] Imer Sevilla MD [address] [facility] [address] [place] [address] documented as of this encounter [...] documented as of this encounter Care Teams Harvest Contractor Relationship Specialty Start Date End Date Carson Ibrahim MD [address] [place] [address] PCP - General 11/20/23 Imer Sevilla MD [address] [phone] Consulting Physician Radiation Oncology 02/27/24 Viky Menon MD [address] [facility] [address] [facility] [address] [place] [address] Consulting Physician Medical Oncology 04/21/24 Amelia Freeman RN Registered Nurse Hematology and Oncology 05/13/24 documented as of this encounter
--- OUTSIDE RECORDS SUMMARY | 2024-09-27 10:49 | XMS_ITS | Encounter Summary ---
Author Organization [facility] Address [address] [place] [address] Care Team Providers Care Pediatric Urologist Name Role Phone Carson Ibrahim MD Primary Care Provider + [phone] Imer Sevilla MD Unavailable Viky Menon MD Unavailable [phone] Amelia Freeman RN Unavailable Unavailable Encounter Details [...] drink first t idalia in the morning (EYE-RN TRAUMA) to steady your nerves or to get [...] & Respiratory [address] [facility], 2nd [place] [phone] Matias Eldridge MD [address] [facility] [address] [place] [address] 12/13/2024 10:00 AM EDT Office Visit Pav CC Head, Neck & Respiratory [address] [facility], 2nd [place] [address] Viky Menon MD [address] [facility] [address] [place] [phone] 12/13/2024 1:00 PM EDT Appointment PAV CC Radiation [address] [facility]. [id number] [place] [address] Imer Sevilla MD [address] [facility] [address] [place] [address] documented as of this encounter Visit Diagnoses [...] documented as of this encounter Care Teams Pediatric Urologist Relationship Specialty Start Date End Date Carson Ibrahim MD [address] [facility] [address] [place] [address] PCP - General 11/20/23 Imer Sevilla MD [address] [facility] [address] [place] [phone] Consulting Physician Radiation Oncology 02/27/24 Viky Menon MD [address] [facility] [address] [facility] [address] [place] [address] Consulting Physician Medical Oncology 04/21/24 Amelia Freeman, RN Registered Nurse Hematology and Oncology 05/13/24 documented as of this encounter
--- OUTSIDE RECORDS SUMMARY | 2024-09-27 10:49 | XMS_ITS | Encounter Summary ---
Author Organization Healthcare Address [address] [place] [address] Care Team Providers Care Cargo Checker Name Role Phone Carson Ibrahim MD Primary Care Provider + [phone] Imer Sevilla MD Unavailable Viky Menon MD Unavailable [phone] Amelia Freeman RN Unavailable Unavailable Reason for Visit * Reason Comments Resource Navigation Encounter Details Date Type Department Care Team (Late st Contact Info) Description 09/20/2024 Social Work Psych Oncology [address] [place] [address] Tamar Cruz Social History Tobacco Use Types [...] any time in the past 12 m [facility], were you homeless or living in a [...] drink first t idalia in the morning (EYE-MEDICINAL PLANT PICKER) to steady your nerves or to get [...] * Progress Notes - Tamar Cruz - 09/20/2024 11:30 AM EDT Encounter Type: Phone Call Disease Status: Established Patient Clinic Location: [facility] Disease Type: Head & Neck Services Provided: Transportation Assistance Education Provided: Transportation, Financial Support/Aid Community Referrals: Medicaid Transportation Program Intervention Level: 3 Units (1 unit = 15 minutes): 2 Narrative: REGIONAL FACILITIES MANAGER received call from pt stating he had an appt added on for 10/06 and is in need of transportation. REGIONAL FACILITIES MANAGER expressed understanding and committed to following up with pt once transportation is confirmed. Pt additionally inquired if Familia Holman was able to assist with most recent bill. REGIONAL FACILITIES MANAGER committed to following up for updates to determine if they were able to assist. Pt was appreciative and denied additional questions or needs at this time. REGIONAL FACILITIES MANAGER remains available ongoing prn. Tamar Cruz DIRECT MARKETING COORDINATOR, REGIONAL FACILITIES MANAGER [phone] * Progress Notes - Tamar Cruz - 09/20/2024 11:30 AM EDT Encounter Type: Phone Call Disease Status: Established Patient Clinic Location: [facility] Disease Type: Head & Neck Services Provided: Transportation Assistance Education Provided: Transportation, Financial Support/Aid Community Referrals: Medicaid Transportation Program Intervention Level: 3 Units (1 unit = 15 minutes): 2 Narrative: Pt was confirmed for transportation on 10/06 with 945AM worm picker time (confirmation [id number]). REGIONAL FACILITIES MANAGER followed up with pt to provide confirmation. REGIONAL FACILITIES MANAGER additionally informed pt that Familia Holman submitted payment for most recent bill on 09/15. Pt was understanding and appreciative for the assistance. Pt landry ed additional questions or needs at this time. REGIONAL FACILITIES MANAGER remains available ongoing. Tamar Cruz DIRECT MARKETING COORDINATOR, REGIONAL FACILITIES MANAGER [phone] documented in this encounter Plan of Treatment Upcoming Encounters Date Type Department Care Team (Late st Contact Info) Description 10/06/2024 11:45 AM EDT Office Visit Pav CC Head, Neck & Respiratory [address] [facility], 2nd [place] [address] Matias Eldridge MD 800 [facility] [address] [place] [phone] 12/13/2024 10:00 AM EDT Office Visit Pav CC Head, Neck & Respiratory [address] [facility], [address]nd [place] [address] Viky Menon MD [address] [facility] [address] [place] [address] 12/13/2024 1:00 PM EDT Appointment PAV CC Radiation [address] [facility]. [id number] [place] [address] Imer Sevilla MD [address] [facility] [address] [place] [address] documented as of this encounter Visit Diagnoses [...] documented as of this encounter Care Teams Cargo Checker Relationship Specialty Start Date End Date Carson Ibrahim MD [address] [facility] [address] [place] [address] PCP - General 11/20/23 Imer Sevilla MD [address] [facility] [address] [place] [phone] Consulting Physician Radiation Oncology 02/27/24 Viky Menon MD [address] [facility] [address] [facility] [address] [place] [address] Consulting Physician Medical Oncology 04/21/24 Amelia Freeman, RN Registered Nurse Hematology and Oncology 05/13/24 documented as of this encounter
--- OUTSIDE RECORDS SUMMARY | 2024-09-27 10:49 | XMS_ITS | Encounter Summary ---
Author Organization Healthcare Address [address] [place] [address] Care Team Providers Care Elementary School Tutor Name Role Phone Carson Ibrahim MD Primary Care Provider + [phone] Imer Sevilla MD Unavailable Viky Menon MD Unavailable [phone] Amelia Freeman RN Unavailable Unavailable Reason for Visit * Reason Comments Resource Navigation Encounter Details Date Type Department Care Team (Late st Contact Info) Description 08/31/2024 Social Work Psych Oncology [address] [place] [address] Tamar Cruz Social History Tobacco Use Types [...] drink first t idalia in the morning (EYE-ECONOMICS INSTRUCTOR) to steady your nerves or to [...] Call Disease Status: Established Patient Clinic Location: [facility] Disease Type: Head & Neck Services Provided: Transportation Assistance Education Provided: Transportation Community Referrals: Medicaid Transportation Program Intervention Level: 3 Units (1 unit = 15 minutes): 2 Narrative: COAL MINER received call from pt stating that he had an appt scheduled for 09/10 and is in need of transportation assistance for this date. COAL MINER was able to schedule medicaid transportation for 09/10 with 8AM steel pickler time (confirmation [id number]). COAL MINER informed pt of confirmation and steel pickler time. Pt was appreciative for the assistance and denied additional questions or needs at this time. COAL MINER remains available ongoing prn. Tamar Cruz BODY REPAIRER, COAL MINER [phone] documented in this encounter Plan of Treatment Upcoming Encounters Date Type Department Care Team (Late st Contact Info) Description 10/06/2024 11:45 AM EDT Office Visit Pav CC Head, Neck & Respiratory [address] [facility], 2nd [place] [address] Matias Eldridge MD 800 [facility] [address] [place] [address] 12/13/2024 10:00 AM EDT Office Visit Pav CC Head, Neck & Respiratory [address] [facility], [address]nd [place] [address] Viky Menon MD [address] [facility] [address] [place] [phone] 12/13/2024 1:00 PM EDT Appointment PAV CC Radiation [id number] [place] [phone] Imer Sevilla MD 800 [facility] [address] [place] [address] documented as of this encounter [...] documented as of this encounter Care Teams Elementary School Tutor Relationship Specialty Start Date End Date Carson Ibrahim MD [address] [address] PCP - General 11/20/23 Imer Sevilla MD [address] [phone] Consulting Physician Radiation Oncology 02/27/24 Viky Menon MD [address] [facility] [address] [place] [address] Consulting Physician Medical Oncology 04/21/24 Amelia Freeman, RN Registered Nurse Hematology and Oncology 05/13/24 documented as of this encounter
--- OUTSIDE RECORDS SUMMARY | 2024-09-27 10:49 | XMS_ITS ---
Author Organization [facility] Address [address] 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
--- OUTSIDE RECORDS SUMMARY | 2024-09-27 10:49 | XMS_ITS | Encounter Summary ---
Author Organization [facility] Address [address] [place] [address] Care Team Providers Care Bolt Loader Name Role Phone Carson Ibrahim MD Primary Care Provider + [phone] Imer Sevilla MD Unavailable Viky Menon MD Unavailable [phone] Amelia Freeman RN Unavailable Unavailable Encounter Details [...] in a fpc (including now)? No 01/08/2024 PHQ-9 Answer Date [...] any time in the past 12 m [facility], were you homeless or living in [...] drink first t idalia in the morning (EYE-COMPUTER CONSULTANT) to steady your nerves or to get [...] 0 09/02/2024 8:44 AM EDT Juanpablo Fowler N * If you checked off any problems [...] Upcoming Encounters Date Type Department Care Team ([facility] st Contact Info) Description 10/06/2024 11:45 AM EDT Office Visit Pav CC Head, Neck & Respiratory [address] [facility], 2nd [place] [phone] Matias Eldridge MD [address] [facility] [address] [place] [address] 12/13/2024 10:00 AM EDT Office Visit Pav CC Head, Neck & Respiratory [address] [facility], 2nd [place] [phone] Viky Menon MD [address] [facility] [address] [place] [address] 12/13/2024 1:00 PM EDT Appointment PAV CC Radiation [address] [facility]. [id number] [place] [phone] Imer Sevilla MD [address] [facility] [address] [place] [address] documented as of this encounter [...] documented as of this encounter Care Teams Bolt Loader Relationship Specialty Start Date End Date Carson Ibrahim MD [address] [facility] [address] [place] [address] PCP - General 11/20/23 Imer Sevilla MD 800 [facility] [address] [place] [address] Consulting Physician Radiation Oncology 02/27/24 Viky Menon MD [address] [facility] [address] [facility] [address] [place] [address] Consulting Physician Medical Oncology 04/21/24 Amelia Freeman, RN Registered Nurse Hematology and Oncology 05/13/24 documented as of this encounter
--- OUTSIDE RECORDS SUMMARY | 2024-09-27 10:49 | XMS_ITS | Encounter Summary ---
Author Organization Healthcare Address [address] [place] [id number] Care Team Providers Care Regulatory Affairs Strategy Specialist Name Role Phone Carson Ibrahim MD Primary Care Provider + [phone] Imer Sevilla MD Unavailable Viky Menon MD Unavailable [phone] Amelia Freeman RN Unavailable Unavailable Encounter Details Date Type Department Care Team (Late st Contact Info) Description 09/02/2024 Refill Pav CC Head, Neck & Respiratory [address] [facility], [address]nd [place] [phone] Viky Menon MD 800 [facility] [address] [place] [address] Social History Tobacco Use Types [...] in a retirement (including now)? No 01/08/2024 PHQ-9 Answer Date [...] drink first t idalia in the morning (EYE-LEASE OUT WORKER) to steady your nerves or to get rid of a hangover? 0 07/22/2024 CAGE Questionnaire Score 0 025 Utilities Answer Date Recorded In the past 12 months has th e [employer], gas, oil, or water [employer] threatened to shut off services in your [...] and optimal time of day to reach caller:[phone] Note: Please do not reply to this [...] Pav CC Head, Neck & Respiratory [address] [facility], 2nd [place] [address] Matias Eldridge MD [address] [facility] [address] [place] [phone] 12/13/2024 10:00 AM EDT Office Visit Pav CC Head, Neck & Respiratory [address] [facility], [address]nd [place] [address] Viky Mneon MD [address] [facility] [address] [facility] [address] [place] [address] 12/13/2024 1:00 PM EDT Appointment PAV CC Radiation [address] [facility]. [id number] [place] [address] Imer Sevilla MD 800 [facility] [address] [place] [address] documented as of this encounter [...] documented as of this encounter Care Teams Regulatory Affairs Strategy Specialist Relationship Specialty Start Date End Date Carson Ibrahim MD [address] [place] [address] PCP - General 11/20/23 Imer Sevilla MD [address] [facility] [address] [place] [address] Consulting Physician Radiation Oncology 02/27/24 Viky Menon MD [address] [facility] [address] [facility] [address] [place] [address] Consulting Physician Medical Oncology 04/21/24 Amelia Freeman RN Registered Nurse Hematology and Oncology 05/13/24 documented as of this encounter
--- OUTSIDE RECORDS SUMMARY | 2024-09-27 10:50 | XMS_ITS | Encounter Summary ---
Author Organization [facility] Address [address] [place] [address] Care Team Providers Care Roustabout Crew Name Role Phone Carson Ibrahim MD Primary Care Provider + [phone] Imer Sevilla MD Unavailable Viky Menon MD Unavailable [phone] Amelia Freeman RN Unavailable Unavailable Encounter Details [...] in a detention (including now)? No 01/08/2024 PHQ-9 Answer Date [...] time in the past 12 m [facility], were you homeless or living in [...] Have you had a drink first t idaila in the morning (EYE-PHARMACY GRAD INTERN) to steady your nerves or to [...] Respiratory [address] [facility], 2nd [place] [phone] Matias Eldridge MD 800 [facility] 2nd [place] [address] 12/13/2024 10:00 AM EDT Office Visit Pav CC Head, Neck & Respiratory [address] [facility], 2nd [place] [address] Viky Menon MD [address] [facility] [address] [place] [phone] 12/13/2024 1:00 PM EDT Appointment PAV CC Radiation [address] [facility]. [id number] [place] [address] Imer Sevilla MD 800 [facility] [address] [place] [phone] documented as of this encounter Visit Diagnoses [...] documented as of this encounter Care Teams Roustabout Crew Relationship Specialty Start Date End Date Carson Ibrahim MD [address] [facility] [address] [place] [address] PCP - General 11/20/23 Imer Sevilla MD [address] [facility] [address] [place] [phone] Consulting Physician Radiation Oncology 02/27/24 Viky Menon MD 800 [facility] [address] [facility] [address] [place] [address] Consulting Physician Medical Oncology 04/21/24 Amelia Freeman, RN Registered Nurse Hematology and Oncology 05/13/24 documented as of this encounter
--- OUTSIDE RECORDS SUMMARY | 2024-09-27 10:50 | XMS_ITS | Encounter Summary ---
Author Organization Healthcare Address [address] [place] [address] Care Team Providers Care Scrapper Name Role Phone Carson Ibrahim MD Primary Care Provider + [phone] Imer Sevilla MD Unavailable Viky Menon MD Unavailable [phone] Amelia Freeman RN Unavailable Unavailable Reason for Visit * Reason Comments Resource Navigation Encounter Details Date Type Department Care Team (Late st Contact Info) Description 09/13/2024 Social Work Psych Oncology [address] [place] [address] Tamar Cruz Social History Tobacco Use Types [...] any time in the past 12 m [facility], were you homeless or living [...] drink first t idalia in the morning (EYE-SAFE DEPOSIT BOX RENTAL CLERK) to steady your nerves or [...] MyChart Disease Status: Established Patient Clinic Location: [facility] Disease Type: Head & Neck Services Provided: Financial Support Community Referrals: Gina Holman Intervention Level: 3 Units (1 unit = 15 minutes): 2 Narrative: IT PROJECT LEAD received email from pt requesting financial assistance via lianet holman for an additional bill this month. IT PROJECT LEAD submitted requested bill to lianet holman and will follow up as updates are received.There were no additional questions or needs at this time. IT PROJECT LEAD remains available ongoing prn. Tamar Cruz DB2 DEVELOPER, IT PROJECT LEAD [phone] documented in this encounter Plan of Treatment Upcoming Encounters Date Type Department Care Team ([facility] st Contact Info) Description 10/06/2024 11:45 AM EDT Office Visit Pav CC Head, Neck & Respiratory [address] [facility], 2nd [place] [phone] Matias Eldridge MD 800 [facility] [address] [place] [phone] 12/13/2024 10:00 AM EDT Office Visit Pav CC Head, Neck & Respiratory [address] [facility], [address]nd [place] [phone] Viky Menon MD [address] [facility] [address] [place] [address] 12/13/2024 1:00 PM EDT Appointment PAV CC Radiation [id number] [place] [address] Imer Sevilla MD 800 [facility] [address] [place] [address] documented as of this encounter Visit Diagnoses [...] documented as of this encounter Care Teams Scrapper Relationship Specialty Start Date End Date Carson Ibrahim MD [facility] [address] [address] PCP - General 11/20/23 Imer Sevilla MD [address] [facility] [address] [place] [address] Consulting Physician Radiation Oncology 02/27/24 Viky Menon MD [address] [facility] [address] [place] [address] Consulting Physician Medical Oncology 04/21/24 Amelia Freeman, RN Registered Nurse Hematology and Oncology 05/13/24 documented as of this encounter
[2024-09-27] MEDS: SODIUM CHLORIDE 0.9% 10ML SYR (RAD ONLY) 10 ML IV (12:38)
[2024-09-27] MEDS: GADOTERIDOL INJ 20ML SYRINGE 20 ML IV (12:38)
[2024-09-27] MEDS: 0.9 % SODIUM CHLORIDE 50 ML VIAL 10 ML IV (12:38)
== END 2024-09-27 23:59 | disposition home or self-care (01) ==
LOC: RAD 10:33
PROVIDERS: PCP Family Medicine; Visit Provider Internal Medicine
DX: I34.0 Nonrheumatic mitral (valve) insufficiency (principal); I28.1 Aneurysm of pulmonary artery; I42.0 Dilated cardiomyopathy; I11.0 Hypertensive heart disease with heart failure; I50.23 Acute on chronic systolic (congestive) heart failure; R93.1 Abnormal findings on diagnostic imaging of heart and coronary circulation
CPT/HCPCS: 75561; A9576

== ENCOUNTER 2024-10-12 10:37 | Day surgery (SDC) | payer OTHER, SELFPAY ==
[2024-10-12 10:42] VITALS: BP 99/55; PULSE 62; RESP 18; O2SAT 97; BMI 27.2
[2024-10-12 11:00] VITALS: BP 119/83; PULSE 63; RESP 18; O2SAT 97
[2024-10-12] MEDS: LIDOCAINE 1% 5ML PF VIAL 5 ML (11:00)
[2024-10-12] MEDS: BUPIVACAINE 0.25% 10ML INJ 25 MG IJ (11:00)
[2024-10-12 11:06] VITALS: BP 119/83; PULSE 63; RESP 18; O2SAT 97
--- NOTE | 2024-10-12 11:09 | EXP.PAIN.PRO ---
Procedure Date: 10/12/24 Time: 11:00 Anesthesiologist:: Sánchez Crook CRNA Complications:: None Pre-procedure Diagnosis:: Degenerative disc lumbar spine multilevels. Lumbar radiculopathy. Disc bulge multilevel lumbar spine. Multilevel lower lumbar facet arthropathy. Lumbar spondylosis. Post-procedure Diagnosis:: Same. Indications for Procedure:: Patient is a very pleasant 49-year-old male that comes to clinic today for round 1 diagnostic left L2-3, L3-4 medial branch block/facet injection. Patient describes left lumbar back pain as well as left radicular symptoms into the left side and abdomen. He describes the pain as constant, dull, aching. He rates his pain 7/10. Procedure Details:: Details of the procedure were explained to the patient. The patient was taken to the procedure room placed in the prone position on the fluoroscopy table. The area over the lumbar spine was cleaned using chlorhexidine as a cleansing solution. Using a 22-gauge 3-1/2 inch needle the left L2-3 and 3 4 facet joint was accessed with ease. After negative aspiration 1 cc of 1% lidocaine was injected at each level. Patient tolerated procedure without difficulty. There are no complications. Plan and Disposition:: Patient was discharged without incident.
[2024-10-12 11:11] VITALS: BP 122/64; PULSE 71; RESP 18; O2SAT 100
== END 2024-10-12 11:11 | disposition home or self-care (01) ==
PROVIDERS: PCP Family Medicine; Visit Provider Nurse Anesthetist, Certified Registered
DX: M47.816 Spondylosis without myelopathy or radiculopathy, lumbar region (principal); M51.369 Other intervertebral disc degeneration, lumbar region without mention of lumbar back pain or lower extremity pain; M48.061 Spinal stenosis, lumbar region without neurogenic claudication; M54.50 Low back pain, unspecified; M54.16 Radiculopathy, lumbar region; I10 Essential (primary) hypertension; E78.5 Hyperlipidemia, unspecified; E11.9 Type 2 diabetes mellitus without complications; C76.0 Malignant neoplasm of head, face and neck; C77.0 Secondary and unspecified malignant neoplasm of lymph nodes of head, face and neck; Z88.0 Allergy status to penicillin; Z79.899 Other long term (current) drug therapy
CPT/HCPCS: 64493; 64494; J0665; J2003

== ENCOUNTER 2024-10-27 10:38 | Outpatient (POV) | payer OTHER, SELFPAY ==
--- OUTSIDE RECORDS SUMMARY | 2024-09-02 09:30 | XMS_ITS | Encounter Summary ---
Author Organization Healthcare Address [address] [place] [address] Care Team Providers Care Licensed Master Social Worker Name Role Phone Carson Ibrahim MD Primary Care Provider + [phone] Imer Sevilla MD Unavailable Viky Menon MD Unavailable +-[phone] Amelia Freeman RN Unavailable Unavailable Encounter Details Date Type Department Care Team (Late st Contact Info) Description 09/02/2024 9:30 AM EDT Office Visit [facility] [address] [place] [address] Abel Johnson MD [address] [facility] [address] [place] [address] MRSA bacteremia (Primary Dx); Acute osteomyelitis of left clavicle (CMS/HCC) Social History Tobacco Use Types Packs/Day Years [...] Date Recorded Patient Health Questionnaire-2 Score 0 09/02/2024 Hunger Vital Sign Answer Date Recorded Within [...] in a correction (including now)? No 01/08/2024 PHQ-9 Answer Date Recorded Patient Health Questionnaire-9 Score 0 09/02/2024 Housing Stability Vital Sign Answer Preet e Recorded In the last 12 months, was t here a time when you were not able to pay the mortgage or rent on time? No 07/28/2024 In the past 12 months, how m any times have you moved where you were living? 1 07/28/2024 At any time in the past 12 m [facility], were you homeless or living in a [...] drink first t idalia in the morning (EYE-OYSTERMAN) to steady your nerves or to get rid of a hangover? 0 07/22/2024 CAGE Questionnaire Score 0 025 Utilities Answer Date Recorded In the past 12 months has e [employer], gas, oil, or water [employer] threatened to shut off services in your home? No 07/28/2024 Sex and Gender Information Value Date Recorded Sex Assigned at Male 01/06/2024 6:14 AM EDT Legal Sex Male 7:47 PM EDT Gender Identity Male 01/06/2024 6:14 AM EDT Sexual Orientation Not on file documented as of this encounter Last Filed Vital Signs Vital Sign Reading Time Taken Comments Blood Pressure 158/96 09/02/2024 9:31 AM EDT Patient did not take Metoprolol this am. Pulse 70 09/02/2024 9:31 AM EDT Temperature 36.6 C (97.9 F) 09/02/2024 8:45 AM EDT Respiratory Rate - - Oxygen Saturation 98% 09/02/2024 9:3 1 AM EDT Inhaled Oxygen Concentration - - Weight 90 kg (198 lb 6.6 oz) 09/02/2024 8:45 AM EDT Height 177.8 cm (5' 10 ) 09/02/2024 8:4 5 AM EDT Body Mass Index 28.47 09/02/2024 8:45 AM EDT documented in this encounter Functional Status * Over the past 2 weeks, how often have you been bothered by any of the following problems? Question Answer Date of Assessment Author Little interest or pleasure in doing things Not at all 09/02/2024 8:44 AM EDT Juanpablo Fowler Feeling down, depressed, or hopeless Not at all 09/02/2024 8:44 AM EDT Juanpablo Fowler Patient Health Questionnaire -2 Score 0 09/02/2024 8:44 AM Juanpablo Oh * Question Answer Date of Assessment Author Trouble falling or staying asleep, or sleeping too much Not at all 09/02/2024 8:44 AM Juanpablo Oh Feeling tired or having maricruz le energy Not at all 09/02/2024 8:44 AM Juanpablo Oh Poor appetite or overeating Not at all 09/02/2024 8: 44 AM Juanpablo Oh Feeling bad about yourself - or that you are a failure or have let yourself or your family down Not at all 09/02/2024 8:44 AM Juanpablo Li Trouble concentrating on thi ngs, such as reading the newspaper or watching television Not at all 09/02/2024 8:44 AM Juanpablo Oh Moving or speaking so slowly that other people could have noticed? Or the opposite - being so fidgety or restless that you have been moving around a lot more than usual. Not at all 09/02/2024 8:44 AM Juanpablo Oh Thoughts that you would be b rogers off or hurting yourself in some way Not at all 09/02/2024 8:44 AM Juanpablo Oh Patient Health Questionnaire -9 Score 0 09/02/2024 8:44 AM Juanpablo Oh * If you checked off any problems on this questionnaire so far, Question Answer Date of Assessment Author How difficult have these problems made it for you to do your work, take care of things at home, or get along with other people? Not difficult at all 09/02/2024 8:44 AM Juanpablo Oh documented as of this encounter Miscellaneous Notes * Progress Notes - Michael Bailey, BRAID CUTTER - 09/02/2024 9:30 AM EDT Infectious Diseases Outpatient Follow-Up Chief [...] chemotherapy and XRT. Patient recently admitted at [facility] from 07/01 -> 07/08 for MRSA bacteremia, [...] duration of therapy, ending 09/02/24 Interval history: Feels like the pain has improved. Is able to move his arms and shoulders more than before. Now painis 2/10 pain. At rest, he usually doesn't have much pain, only during certain motions now. No longer throbbing like a toothache. Still been taking 10mg oxycodone about 3 times a day. Not using patches or diclofenac gel as it was not covered by his insurance. PICC line working well. Has a wound vac to the RLE wound which is also regressing in size. Will be going for follow with his surgeon next week. Did OK on his IV abx. Denies any missed doses. Denies f/c, sweats, new pain, n/v/d, abd pain, rashes, CP, SOA, cough, myalgias. ROS 14 point review of symptoms negative except as documented in the HPI. Objective Vitals: 09/02/24 0931 BP: (!) 158/96 Pulse: 70 Temp: SpO2: 98% Physical Exam Constitutional: General: He is not [...] Skin is warm and dry. Comments: R PICC in place with dressing C/D/I. RLE Wound VAC in place with black foam on lateral aspect of leg above ankle. Neurological: General: No focal deficit present. Mental Status: He is alert and oriented to person, place, and time. Psychiatric: Mood and Affect: Mood normal. Labs: Lab Results Component Value Date WBC 6.2 08/30/2024 HGB 12.50 08/30/2024 HCT 36.7 08/30/2024 MCV 89 07/28/2024 PLT 260 08/30/2024 Chemistry Lab Results Component Value Date/Time NA 137 07/28/2024 0355 K 3.8 07/28/2024 0355 CL 102 07/28/2024 0355 CO2 26 07/28/2024 0355 BUN 15 08/30/2024 0000 BUN 9 07/28/2024 0355 CREATININE 0.71 08/30/2024 0000 CREATININE 0.71 07/28/2024 0355 Lab Results Component Value Date/Time CALCIUM 9.7 07/28/2024 0355 ALKPHOS 78 08/30/2024 0000 ALKPHOS 57 07/22/2024 0857 AST 18 08/30/2024 0000 AST 25 07/22/2024 0857 ALT 14 08/30/2024 0000 ALT 7 (L) 07/22/2024 0857 BILITOT 0.9 08/30/2024 0000 BILITOT 0.6 07/22/2024 0857 06/29 BCX [...] and XRT and was recently admitted at [facility] from 07/01 -> 07/08 for MRSA bacteremia, where he notes left clavicle/shoulder pain first started. Thereafter admitted to [facility] for further management after a 07/21 CT Chest showed concern for left clavicular head OM, and adjacent potential septic arthritis/soft tissue infection. Ultimately discharged on IV daptomycin to complete a 6-week duration of therapy. He tolerated IV antibiotics well with significant clinical improved after course of therapy. Problem List - Left supraclavicular joint septic arthritis, adjacent osteomyelitis - Recent MRSA bloodstream infection - History of neck SCC Plan - OPAT labs reviewed and without concerns at this time - 6 week course of IV daptomycin completed today. No need for further antibiotics at this time. Discontinue/remove PICC orders placed. - Continue to follow up with Surgery and Oncology as scheduled. Return to clinic as needed Michael Bailey APRN [address] [address] Cosigned by Abel Johnson MD at 09/02/2024 9:55 AM EDT Associated attestation - Abel Johnson MD - 09/02/2024 9:55 AM EDT I attest to being involved in more than half the total time in patient care. * Progress Notes - Saniya Flores RN - 09/02/2024 9:30 AM EDTAssociated Order(s): PICC Removal (Clinic-Performed) Patient ID: Henny Daniels Jr. is a 49 y.o. male. Encounter Diagnoses Name Primary? Acute osteomyelitis of left clavicle (CMS/HCC) MRSA bacteremia Yes PICC Removal (Clinic-Performed) Date/Time: 09/02/2024 9:05 AM Performed by: Saniya Flores RN Authorized by: Abel Johnson MD Indications: vascular access Patient position: flat Catheter type: single lumen Post-procedure: dressing applied Patient tolerance: patient tolerated the procedure well with no immediate complications Comments: After 30 minutes, no complaints of pain, dizziness or shortness of air. BP 158/96 HR 64 O2 sats 98. Patient did not take BP meds today. Patient ambulated independently. * Kristin Zane - Saniya Flores RN - 09/02/2024 9:25 AM EDT Images from the original note were not included. 810 After PICC Line Removal How do I care for myself at home? Before you go home. When the PICC is out, we will put pressure at the insertion site. This helps prevent bleeding. We may put antibiotic ointment on the site. We will tape dry, sterile gauze over thesite. Leave this dressing on for 24 hours. Cleaning the site. After the 24 hours is up, you may remove the dressing. The PICC site is very small. A small scab may form at the site. It is okay to wash the site gently with soap and water. Do not remove or pick the scab off. After washing, gently pat the site dry. You do not need to put another dressing on after you wash it. Activity. Avoid hard physical activity for 24 hours. This includes things like: ? Weight lifting ? Hard yard work ? Any physical activity with repeated arm movements When do I call my doctor? Call or see your caregiver if you have any of these problems in the arm that had the PICC: ? Swelling or puffiness ? Tenderness or pain that gets worse When should I go to the Emergency Room? Go to the nearest ER if you have any of these problems in the arm that had the PICC: ? Numbness or tingling in your fingers, hand, or arm ? Arm has a blue color and feels cold to the touch ? Redness around the insertion site or a red-streak goes up your arm ? Any type of drainage from the PICC insertion site - including: o Bleeding - (If so, use a clean towel to put firm, direct pressure to the site.) o Drainage that is yellow or muhammad in color ? You have temperature by mouth above 102??F (38.9?? C) that is not helped by medicine * Kristin Degroot - Saniya Flores RN - 09/02/2024 9:25 AM EDT Images from the original note were not included. 810 After PICC Line Removal How do I care for myself at home? Before you go home. When the PICC is out, we will put pressure at the insertion site. This helps prevent bleeding. We may put antibiotic ointment on the site. We will tape dry, sterile gauze over thesite. Leave this dressing on for 24 hours. Cleaning the site. After the 24 hours is up, you may remove the dressing. The PICC site is very small. A small scab may form at the site. It is okay to wash the site gently with soap and water. Do not remove or pick the scab off. After washing, gently pat the site dry. You do not need to put another dressing on after you wash it. Activity. Avoid hard physical activity for 24 hours. This includes things like: ? Weight lifting ? Hard yard work ? Any physical activity with repeated arm movements When do I call my doctor? Call or see your caregiver if you have any of these problems in the arm that had the PICC: ? Swelling or puffiness ? Tenderness or pain that gets worse When should I go to the Emergency Room? Go to the nearest ER if you have any of these problems in the arm that had the PICC: ? Numbness or tingling in your fingers, hand, or arm ? Arm has a blue color and feels cold to the touch ? Redness around the insertion site or a red-streak goes up your arm ? Any type of drainage from the PICC insertion site - including: o Bleeding - (If so, use a clean towel to put firm, direct pressure to the site.) o Drainage that is yellow or muhammad in color ? You have temperature by mouth above 102??F (38.9?? C) that is not helped by medicine documented in this encounter Plan of Treatment Upcoming Encounters Date Type Department Care Team (Late st Contact Info) Description 11/08/2024 11:15 AM EDT Office Visit [facility] [address] [place] [address] Kelsey Cerda, DMD [address] [place] [address] 11/18/2024 10:00 AM EDT Office Visit [facility] [address] [place] [address] Abel Johnson MD [address] [place] [address] [address] [place] [address] 11/23/2024 9:15 AM EDT Office Visit [facility] [address] [place] [address] Kelsey Cerda, DMD [address] [place] [address] 12/07/2024 11:15 AM EDT Office Visit [facility] [address] [place] [address] Kelsey Cerda, DMD [address] [place] [address] 12/13/2024 8:00 AM EDT Appointment [facility] [address] [place] [address] 12/13/2024 10:00 AM EDT Office Visit [facility] [address] [facility], 2nd [place] [address] Viky Menon MD [address] [facility] [address] [place] [address] 12/13/2024 1:00 PM EDT Appointment [facility] [address] [place] [phone] Imer Sevilla MD [address] [facility] [address] [place] [address] 12/13/2024 2:45 PM EDT Office Visit [facility] [address] [facility], 2nd [place] [address] Matias Eldridge MD [address] [facility] [address] [place] [address] 12/21/2024 10:15 AM EDT Office Visit [facility] [address] [place] [address] Kelsey Cerda, DMD [address] [facility] [address] [place] [address] Scheduled Orders Name Type Priority Associated Diagnoses Orde r Schedule PICC Removal (Clinic-Performed) Procedures Routine Acute osteomyelitis of left clavicle (CMS/HCC) MRSA bacteremia 1 Occurrences starting 09/02/2024 until 03/06/2026 documented as of this encounter Procedures Procedure Name Priority Date/Time Associated Diagnosis Comments PICC REMOVAL (CLINIC-PERFORMED) Routine 09/02/2024 9:05 AM EDT Acute osteomyelitis of left clavicle (CMS/HCC) MRSA bacteremia documented in this encounter Results * PICC Removal (Clinic-Performed) (09/02/2024 9:05 AM EDT) Narrative Saniya Flores RN - 09/02/2024 9:05 AM EDT Saniya Flores RN 09/02/2024 9:56 AM PICC Removal (Clinic-Performed) Date/Time: 09/02/2024 9:05 AM Performed by: Saniya Flores RN Authorized by: Abel Johnson MD Indications: vascular access Patient position: flat Catheter type: single lumen Post-procedure: dressing applied Patient tolerance: patient tolerated the procedure well with no immediate complications Comments: After 30 minutes, no complaints of pain, dizziness or shortness of air. BP 158/96 HR 64 O2 sats 98. Patient did not take BP meds today. Patient ambulated independently. Abel Johnson MD IN CLINIC/BEDSIDE O RDERABLES Final Result documented in this encounter Visit Diagnoses Diagnosis MRSA bacteremia- Primary Acute osteomyelitis of left clavicle (CMS/HCC) documented in this encounter Additional Health Concerns Infection Onset Date 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 02/19/2024 Assessment Noted Time PHQ-9 Depression Total Score: 0 09/03/19 25 8:44 AM EDT A fall risk assessment has been complete d for the patient 08/12/2024 9:47 AM EDT A Body Mass Index follow-up plan has been documented for the patient 09/02/2024 9:56 AM EDT documented as of this encounter Care Teams Licensed Master Social Worker Relationship Specialty Start Date End Date Carson Ibrahim MD [facility] [address] [address] PCP - General 11/20/23 Imer Sevilla MD [address] [facility] [address] [place] [address] Consulting Physician Radiation Oncology 02/27/24 Viky Menon MD [address] [address] Consulting Physician Medical Oncology 04/21/24 Amelia Freeman, RN Registered Nurse Hematology and Oncology 05/13/24 documented as of this encounter
--- OUTSIDE RECORDS SUMMARY | 2024-09-08 10:45 | XMS_ITS | Encounter Summary ---
Author Organization Healthcare Address [address] [place] [address] Care Team Providers Care Interlocking And Signal Mechanic Name Role Phone Carson Ibrahim MD Primary Care Provider + [phone] Imer Sevilla MD Unavailable Viky Menon MD Unavailable [phone] Amelia Freeman RN Unavailable Unavailable Reason for Visit * Reason Comments Follow-up Encounter Details Date Type Department Care Team (Latest Contact Info) Description 09/08/2024 10:45 AM EDT Office Visit [facility] Head, Neck & Respiratory 800 [facility], 2nd [place] [address] Matias Eldridge MD 800 [facility] [address] [place] [address] Squamous cell carcinoma, lip (Primary Dx); Malignant [...] in a alf (including now)? No 01/08/2024 PHQ-9 Answer Date [...] any time in the past 12 m [facility], were you homeless or living in [...] drink first t idalia in the morning (EYE-EXTRUSION DIE TEMPLATE MAKER) to steady your nerves or to get rid of a hangover? 0 07/22/2024 CAGE Questionnaire Score 0 025 Utilities Answer Date Recorded In the past 12 months has th [employer], gas, oil, or water [employer] threatened to shut off services in your [...] encounter Miscellaneous Notes * Progress Notes - Amparo Mackenzie MD - 09/08/2024 10:45 AM EDT I had the pleasure of seeing Mr. Henny Daniels Jr. in [facility] at the [facility]. Henny Daniels Jr. is a 49 y.o. [...] place PROCEDURE PERFORMED: FLEXIBLE FIBEROPTIC LARYNGOSCOPY (CPT 54829) FINDINGS: NASAL CAVITY/NASOPHARYNX: No masses/lesions/polyposis/mucosal ulceration. Bilateral [...] or questions arise. Matias Eldridge MD, FACS Cutting Room Supervisor Head & Neck Surgical Oncology, Thyroid/Parathyroid Surgery, Transoral Robotic Surgery, and Microvascular Reconstruction Department of Otolaryngology - Division of Head & Neck Surgery [facility] - Head, Neck, & Respiratory Clinic [facility] [1] Allergies Allergen Reactions Penicillins Rash and [...] Care Services Head, Neck, & Respiratory Clinic [facility] documented in this encounter Plan of Treatment Upcoming Encounters Date Type Department Care Team (Late st Contact Info) Description 11/08/2024 11:15 AM EDT Office Visit [facility] [address] [place] [address] Kelsey Cerda, DMD [address] [place] [address] 11/18/2024 10:00 AM EDT Office Visit [facility] [address] [place] [phone] AlexAbel rudolph MD [address] [facility] [address] [place] [address] 11/23/2024 9:15 AM EDT Office Visit [facility] [address] [place] [address] Kelsey Cerda, DMD [address] [place] [address] 12/07/2024 11:15 AM EDT Office Visit [facility] [address] [place] [address] Kelsey Cerda, DMD [address] [place] [address] 12/13/2024 8:00 AM EDT Appointment [facility] Radiology [address] [place] [phone] 12/13/2024 10:00 AM EDT Office Visit [facility] Head, Neck & Respiratory 800 [facility], 2nd [place] [address] Viky Menon MD [address] [facility] [address] [place] [address] 12/13/2024 1:00 PM EDT Appointment [facility] CC Radiation [address] [place] [address] Imer Sevilla MD [address] [place] [address] 12/13/2024 2:45 PM EDT Office Visit [facility] Head[facility] Neck & Respiratory [address], [address]nd [place] [address] Matias Eldridge MD [address] [facility] [address] [place] [address] 12/21/2024 10:15 AM EDT [facility] [address] [place] [address] Kelsey Cerda, DMD [address] [place] [address] documented as of this encounter Visit Diagnoses [...] documented as of this encounter Care Teams Interlocking And Signal Mechanic Relationship Specialty Start Date End Date Carson Ibrahim MD [facility] [address] [address] PCP - General 11/20/23 Imer Sevilla MD [address] [facility] [address] [place] [address] Consulting Physician Radiation Oncology 02/27/24 Viky Menon MD [address] [facility] [address] [place] [address] Consulting Physician Medical Oncology 04/21/24 Amelia Freeman, RN Registered Nurse Hematology and Oncology 05/13/24 documented as of this encounter
--- OUTSIDE RECORDS SUMMARY | 2024-09-10 09:13 | XMS_ITS | Encounter Summary ---
Author Organization Address [address] [id number] Care Team Providers Care Laundry Machine Tender Name Role Phone Carson Ibrahim MD Primary Care Provider + [phone] Imer Sevilla MD Unavailable Viky Menon MD Unavailable [phone] Amelia Freeman RN Unavailable Unavailable Reason for Referral * Imaging (Routine) - Pending Review Specialty Diagnoses / Procedures Referred By Contac t Referred To Contact Radiology Diagnoses Secondary malignant neoplasm lymph nodes of head, face and neck (CMS/HCC) Procedures CT Chest w IV Contrast Imer Sevilla MD [address] [address] Phone: tel: fax: Referral ID Status Reason Start Date Expiration Date V isits Requested Visits Authorized [id number] Pending Review 09/12/2024 03/14/2026 1 1 * Imaging (Routine) - Pending Review Specialty Diagnoses / Procedures Referred By Kameron t Referred To Contact Radiology Diagnoses Secondary malignant neoplasm lymph nodes of head, face and neck (CMS/HCC) Procedures CT Soft Tissue Neck w IV Contrast Imer Sevilla MD [address] [address] Phone: tel: fax: Referral ID Status Reason Start Date Expiration Date V isits Requested Visits Authorized [id number] Pending Review 09/12/2024 03/14/2026 1 1 Reason for Visit * Reason Comments Follow-up Encounter Details Date Type Department Care Team (Latest Contact Info) Description 09/10/2024 9:13 AM EDT - 09/10/2024 11:59 PM EDT Hospital Encounter [facility] Radiation [id number] [place] [address] Imer Sevilla MD [address] [place] [address] Secondary malignant neoplasm lymph nodes of head, face and neck (CMS/HCC) (Primary Dx) Discharge Disposition: Still a Patient [...] place to sleep or slept in a nursing home (including now)? No 01/08/2024 PHQ-9 Answer [...] time in the past 12 m [facility], were you homeless or living in a nursing home (including now)? No 07/28/2024 CAGE ASSESSMENT [...] drink first t idalia in the morning (EYE-DIRECTOR PRODUCT MANAGEMENT) to steady your nerves or to get [...] 8:45 AM EDT documented in this encounter Medications [...] nausea or vomiting. 30 tablet 3 05/13/2024 polyethylene glycol (Miralax) 17 GM/SCOOP powder Take 17 g by mouth daily as needed (constipation) . 510 g 3 09/02/2024 sodium chloride 0.9 % solution 07/05/2024 traZODone (Desyrel) 100 MG tablet Take 1 tablet by mouth nightly. vancomycin (Vancocin) 10 g reconstituted solution 07/05/2024 oxyCODONE (Roxicodone) 10 MG immediate release tablet Take 1-2 tablets by mouth every 4 hours as needed for severe pain (g89.3). 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 is [...] ill-appearing. HENT: Nose: Nose normal. Mouth/Throat: Lips: [place]. No lesions. Mouth: Mucous membranes are dry. [...] Center 09/10/2024 10:15 AM Imer Sevilla MD RO [facility] 09/23/2024 1:45 PM Kelsey Cerda, MARQUEZ OMSURCHDSB [facility] 10/06/2024 11:45 AM Matias Eldridge MD [facility] 12/13/2024 10:00 AM Viky Menon MD [facility] Please coordinate Jazmyn or Sinan visit(s) with other Chidi visits and or imaging. A total of 30 minutes was spent preparing, performing an examination, counseling, educating the patient, and care coordination. Vickey Mehta II, MD, PGY-5 Resident Physician, Radiation Oncology [facility] Pager: [phone] [1] Social History Tobacco Use Smoking status: [...] Description 11/08/2024 11:15 AM EDT Office Visit [facility] [address] [place] [address] Kelsey Cerda DMD [address] [place] [address] 11/18/2024 10:00 AM EDT Office Visit [facility] [address] [facility] [place] [address] Abel Johnson MD [address] [facility] [address] [place] [address] 11/23/2024 9:15 AM EDT Office Visit [facility] [address] [place] [address] Kelsey Cerda, DMD [address] [place] [address] 12/07/2024 11:15 AM EDT Office Visit [facility] [address] [place] [address] Kelsey Cerda, DMD [address] [place] [address] 12/13/2024 8:00 AM EDT Appointment [facility] G Radiology [address] [place] [address] 12/13/2024 10:00 AM EDT Office Visit [facility] Head, Neck & Respiratory 800 [facility], [address] [place] [address] Viky Menon MD [address] [facility] [address] [place] [address] 12/13/2024 1:00 PM EDT Appointment [facility] CC Radiation [id number] [place] [address] Imer Sevilla MD [address] [place] [address] 12/13/2024 2:45 PM EDT Office Visit [facility] Head[facility] Neck & Respiratory [address] [place] [address] aMtias Eldridge MD [address] [facility] 2[address] [place] [address] 12/21/2024 10:15 AM EDT Office Visit [facility] [address] [place] [address] Kelsey Cerda, DMD [address] [place] [address] Scheduled Orders Name Type Priority Associated Diagnoses Orde r Schedule CT Soft Tissue Neck w IV Contrast Imaging Routine Secondary malignant neoplasm lymph nodes of head, face and neck (CMS/HCC) Expected: 12/13/2024 (Approximate), Expires: 03/16/2026 CT Chest w IV Contrast Imaging Routine Secondary malignant neoplasm lymph nodes of head, face and neck (CMS/HCC) Expected: 12/13/2024 (Approximate), Expires: 03/16/2026 documented as of this encounter Visit Diagnoses [...] documented as of this encounter Care Teams Laundry Machine Tender Relationship Specialty Start Date End Date Carson Ibrahim MD 1210 [facility] [address] [place] [address] PCP - General 11/20/23 Imer Sevilla MD [address] [place] [address] Consulting Physician Radiation Oncology 02/27/24 Viky Menon MD 800 [facility] [address] [address] Consulting Physician Medical Oncology 04/21/24 Amelia Freeman, RN Registered Nurse Hematology and Oncology 05/13/24 documented as of this encounter
--- OUTSIDE RECORDS SUMMARY | 2024-09-23 13:45 | XMS_ITS | Encounter Summary ---
Author Organization [facility] Address [address] [place] [address] Care Team Providers Care Credit Balance Specialist Name Role Phone Carson Ibrahim MD Primary Care Provider [phone] Imer Sevilla MD Unavailable Viky Menon MD Unavailable [phone] Amelia Freeman RN Unavailable Unavailable Reason for Visit * Consultation (Routine) - Closed Specialty Diagnoses / Procedures Referred By Kameron santana Referred To Contact Oral Surgery Diagnoses Malignant neoplasm of external lower lip Imer Sevilla MD [address] [facility] [id number] [place] [address] Phone: tel: fax: [facility] housekeeping worker Faculty Clinic [address] [facility] [address] [place] [address] Phone: tel: Referral ID Status Reason Start Date Expiration Date V isits Requested Visits Authorized [id number] Closed Specialty Services Required 08/12/2024 02/11/2026 1 1 Encounter Details Date Type Department Care Team (Late st Contact Info) Description 09/23/2024 1:45 PM EDT Evaluation DSB partner marketing intern Clinic [address] [facility] [address] [place] [address] Kelsey Cerda, DMD [address] [facility] [address] [place] [address] Edentulism (Primary Dx) Social History Tobacco Use [...] Date Recorded Patient Health Questionnaire-2 Score 0 10/06/2024 Hunger Vital Sign Answer Date Recorded Within [...] in a prison (including now)? No 01/08/2024 PHQ-9 Answer Date [...] any time in the past 12 m [facility], were you homeless or living in [...] drink first t idalia in the morning (EYE-HOT KNIFE CUTTER) to steady your nerves or to get [...] Sign Reading Time Taken Comments Blood Pressure 105/70 09/23/2024 1:25 PM EDT Pulse 57 09/23/2024 1:25 PM EDT Temperature 36.8 C (98.2 F) 09/23/2024 1:25 PM EDT Respiratory Rate - - Oxygen Saturation 98% 09/23/2024 1:25 PM EDT Inhaled Oxygen Concentration - - Weight 87.5 kg (192 lb 14.4 oz) 09/23/2024 1:25 PM EDT Height 177.8 cm (5' 10 ) 09/23/2024 1:25 PM EDT Body Mass Index 27.68 09/23/2024 1:25 PM EDT documented in this encounter Functional Status * Over the past 2 weeks, how often have you been bothered by any of the following problems? Question Answer Date of Assessment Author Little interest or pleasure in doing things Not at all 10/06/2024 11:13 AM Jaycee Wiley Feeling down, depressed, or hopeless Not at all 10/06/2024 11:13 AM Jaycee Wiley Patient Health Questionnaire -2 Score 0 10/06/2024 11:13 AM Jaycee Wiley * Question Answer Date of Assessment Author Feeling tired or having maricruz le energy Not at all 10/06/2024 11:13 AM Jaycee Wiley Poor appetite or overeating Not at all 10/06/2024 11 :13 AM Joya Wiley Feeling bad about yourself - or that you are a failure or have let yourself or your family down Not at all 10/06/2024 11:13 AM Jaycee Wiley Trouble concentrating on things, such as reading the newspaper or watching television Not at all 10/06/2024 11:13 AM Jaycee Wiley Moving or speaking so slowly that other people could have noticed? Or the opposite - being so fidgety or restless that you have been moving around a lot more than usual. Not at all 10/06/2024 11:13 AM Joya Wiley Thoughts that you would be better off or hurting yourself in some way Not at all 10/06/2024 11:13 AM Mariangel Wiley documented as of this encounter Miscellaneous Notes * Progress Notes - Kelsey Cerda, MARQUEZ - 09/23/2024 1:45 PM EDT Subjective: 49 y.o. male presents to clinic for Comprehensive exam & Evaluation for dentures Objective: Medical and dental hx reviewed. Vitals: 09/23/24 1325 BP: 105/70 Pulse: 57 Temp: 36.8 ??C (98.2 ??F) SpO2: 98% Medications Ordered Prior to Encounter[1] Past Medical History[2] Allergies[3] Assessment: ASA Class: ASA 3 Clinical Exam findings: Pt is edentulous. Pt has a history right lower lip resection. Pt has a atrophic ridge on the LL where there was a resection. There is a stairstep defect at the anterior siteof the mandibular resection. The tongue also deviates to the left upon extrusion. This may allow ofenhanced retention of the prosthesis. Discussed with patient that history of H&N radiation makes him a poor candidate for dental implant placement and recommended CD/Cd construction with the expectation of using dental adhesives for retention. Pt states Dr. Eldridge had also suggested a left lip split to attempt to rebuild the right sided defect Discussed with patient we could construct the CD and see if the procedure would be beneficial from a functional or esthetic perspective [1] Current Outpatient Medications on File Prior to Visit Medication Sig Dispense Refill acetaminophen (Tylenol) 500 MG tablet Take 2 tablets by mouth every 6 hours as needed for pain. (Patient not taking: Reported on 09/10/2024) cyclobenzaprine (Flexeril) 5 MG tablet Take 1 tablet by mouth 3 times a day as needed for muscle spasms. (Patient not taking: Reported on 09/10/2024) diclofenac (Voltaren) 1 % topical gel Place on the skin 2 times a day. Apply as directed to the chest at the area of pain 50 g 2 famotidine (Pepcid) 20 MG tablet Take 1 tablet by mouth at night as needed for heartburn. methocarbamol (Robaxin) 500 MG tablet TAKE 2 TABLETS BY MOUTH EVERY 8 HOURS NEEDED FOR MUSCLE PAIN AND SPASM (Patient not taking: Reported on 09/10/2024) metoprolol succinate XL (Toprol-XL) 25 MG 24 hr tablet Take 1 tablet by mouth daily. Do not crush or chew. (Patient not taking: Reported on 09/10/2024) 90 tablet 3 metroNIDAZOLE (Flagyl) 500 MG tablet (Patient not taking: Reported on 09/10/2024) Multiple Vitamin (multivitamin) tablet Take 1 tablet by mouth daily. (Patient not taking: Reported on 09/10/2024) ondansetron ODT (Zofran-ODT) 8 MG disintegrating tablet Take 1 tablet (8 mg) by mouth every 8 hoursas needed for nausea or vomiting. (Patient not taking: Reported on 09/10/2024) 30 tablet 3 oxyCODONE (Roxicodone) 10 MG immediate release tablet Take 1-2 tablets by mouth every 4 hours as needed for severe pain (g89.3). 180 tablet 0 polyethylene glycol (Miralax) 17 GM/SCOOP powder Take 17 g by mouth daily as needed (constipation).510 g 3 sodium chloride 0.9 % solution (Patient not taking: Reported on 09/10/2024) traZODone (Desyrel) 100 MG tablet Take 1 tablet by mouth nightly. (Patient not taking: Reported on 09/10/2024) vancomycin (Vancocin) 10 g reconstituted solution (Patient not taking: Reported on 09/10/2024) No current facility-administered medications on file prior to visit. [2] Past Medical History: Diagnosis Date Blood infection hospitalized from 07/01/24 to 07/05/24, UTI, last IV antibiotic 07/15/24, PO antbiotics Congestive heart failure (CHF) ([facility] Diabetes ([facility]) High blood pressure Lip cancer Morbid obesity ([facility]) 01/07/2024 PONV (postoperative nausea and vomiting) Type 2 diabetes mellitus 01/07/2024 UTI (urinary tract infection) 01/07/2024 [3] Allergies Allergen Reactions Penicillins Rash and Swelling A CHILD documented in this encounter Plan of Treatment Upcoming Encounters Date Type Department Care Team (Late st Contact Info) Description 11/08/2024 11:15 AM EDT Office Visit [facility] [address] [place] [address] Kelsey Cerda DMD [address] [place] [address] 11/18/2024 10:00 AM EDT Office Visit [facility] [address] [place] [address] Abel Johnson MD [address] [facility] [address] [place] [address] 11/23/2024 9:15 AM EDT Office Visit [facility] [address] [place] [address] Kelsey Cerda, DMD [address] [place] [address] 12/07/2024 11:15 AM EDT Office Visit [facility] [address] [place] [address] Kelsey Cerda, DMD [address] [facility] [address] [place] [address] 12/13/2024 8:00 AM EDT Appointment [facility] Radiology [address] [place] [phone] 12/13/2024 10:00 AM EDT Office Visit [facility] [address] [facility] [place] [id number] Viky Menon MD [address] [facility] [address] [place] [address] 12/13/2024 1:00 PM EDT Appointment [facility] Radiation [id number] [place] [address] Imer Sevilla MD [address] [facility] [address] [place] [address] 12/13/2024 2:45 PM EDT Office Visit [facility] [address] [facility]nd [place] [address] Matias Eldridge MD [address] [facility] 2[address] [place] [address] 12/21/2024 10:15 AM EDT [facility] Visit [facility] [address] [place] [address] Prashant Kelsey Mila, DMD [address] [place] [address] documented as of this encounter Procedures Procedure Name Priority Date/Time Associated Diagnosis Comments COMPREHENSIVE ORAL EVALUATION - NEW OR ESTABLISHED PATIENT Routine 09/23/2024 1:45 PM EDT Edentulism documented in this encounter [...] documented as of this encounter Care Teams Credit Balance Specialist Relationship Specialty Start Date End Date Carson Ibrahim MD [address] [address] PCP - General 11/20/23 Imer Sevilla MD [address] [facility] [address] [place] [address] Consulting Physician Radiation Oncology 02/27/24 Viky Menon MD [address] [place] [phone] Consulting Physician Medical Oncology 04/21/24 Amelia Freeman, RN Registered Nurse Hematology and Oncology 05/13/24 documented as of this encounter
--- OUTSIDE RECORDS SUMMARY | 2024-10-06 11:45 | XMS_ITS | Encounter Summary ---
Author Organization [facility] Address 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, face and neck (CMS/HCC) Procedures MR Thoracic Spine w and wo IV Contrast Adilene Ha MD [address] [facility] [address] [address] Phone: tel: fax: Referral ID Status Reason Start Date Expiration Date Visits Re quested Visits Authorized [id number] Closed 10/08/2024 04/09/2026 1 1 Reason for Visit * Reason Comments Follow-up Encounter Details Date Type Department Care Team (Latest Contact Info) Description 10/06/2024 11:45 AM EDT Office Visit [facility] Head, Neck & Respiratory [address] [facility], [address]nd [place] [id number] Adilene Ha MD [address] [facility] [address] [address] Acute osteomyelitis of left clavicle (CMS/HCC) (Primary Dx); Squamous cell carcinoma, lip; Malignant neoplasm of external lower lip; Dysphagia, oropharyngeal; Squamous cell carcinoma of neck; Secondary malignant [...] in the past 12 [facility], were you homeless or living in [...] drink first t idalia in the morning ([employer]ISING 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 0 07/22/2024 CAGE Questionnaire Score 0 025 Utilities Answer Date Recorded In the past 12 months has e [employer], gas, oil, or water [employer] threatened to shut off services in your home? No 07/28/2024 Sex and Gender Information Value Date Recorded Sex Assigned at Male 01/06/2024 6:14 AM EDT Legal Sex Male 7:47 PM EDT Gender Identity Male 01/06/2024 6:14 AM EDT Sexual Orientation Not on file documented as of this encounter Last Filed Vital Signs Vital Sign Reading Time Taken Comments Blood Pressure 91/66 10/06/2024 11:13 AM EDT Pulse 69 10/06/2024 11:13 AM EDT Temperature 36.4 C (97.5 F) 10/06/2024 11:13 AM EDT Respiratory Rate 16 10/06/2024 11:13 AM EDT Oxygen Saturation 97% 10/06/2024 11:13 AM EDT Inhaled Oxygen Concentration - - Weight 86 kg (189 lb 9.5 oz) 10/06/2024 11:13 AM EDT Height 177.8 cm (5' 10 ) 10/06/2024 11:13 AM EDT Body Mass Index 27.2 10/06/2024 11:13 AM EDT documented in this encounter Functional [...] as of this encounter Miscellaneous Notes * Addendum Note - Amelia Pearson RN - 10/06/2024 11:45 AM EDTAddended by: AMELIA PEARSON on: 10/06/2024 04:20 PM Modules accepted: Orders * Addendum Note - Amelia Pearson RN - 10/06/2024 11:45 AM EDTAddended by: AMELIA PEARSON on: 10/08/2024 07:49 AM Modules accepted: Orders * Progress Notes - Rodriguez Frias PA - 10/06/2024 11:45 AM EDT Chief Complaint Patient presents with Follow-up Henny Daniels Jr. is a 49 y.o. [...] donor site requiring prolonged wound management. He underwent a PET-CTscan in July 2024 which demonstrated hypermetabolic activity within the larynx and T10/11. Mr. Daniels returns for clinic today for re-evaluation. He states that he is doing well at this time.His symptoms are stable since his last clinic visit. The patient notes that he is no longer applying the wound VAC to the right lower extremity wound in his now performing damp to dry dressing changes. The patient's case was discussed at multidisciplinary tumor board in which he was recommended to undergo an MRI of the thoracic spine to further assess hypermetabolic activity seen on PET-CT scan. His height is 1.778 m (5' 10 ) and weight is 86 kg (189 lb 9.5 oz). His skin temperature is 36.4 ??C (97.5 ??F). His blood pressure is 91/66 and his pulse is 69. His respiration is 16 and oxygen saturation is 97%. Past Medical History[1] Oncology History Overview Note His oncologic history is as follows: History of early stage left lower lip cancer in 2019, resected by Dr. Meyers. In 2019, he developed a left neck mass, and underwent a thyroidectomy and neck dissection with post-operative chemotherapy given by Mitch by Dr. Cruz and radiation therapy given in [place]. CT Neck and Face 12-10-23 CT face [...] with fibular free flap reconstruction, by Dr. Ha. Pathology has returned demonstrating metastatic squamous cell [...] mg (03/31/2024), 130 mg (04/08/2024) 04/29/2024 - 05/13/2024 Chemotherapy CARBOplatin (Paraplatin) 300 mg in sodium [...] nodes of head, face and neck (CMS/HCC) He has a past surgical history that includes Kidney stone surgery; Hernia repair (1999); Other surgical history (2018); Salivary gland surgery; and oral surgery (Left, 01/06/2024). His family history includes Brain cancer in his cousin; Cancer in an other family member; Lung cancer in his father's brother and mother; Stomach cancer in his mother's brother. He reports that he has never smoked. He has never been exposed to tobacco smoke. He has never used smokeless tobacco. He reports current alcohol use. Nutrition Assessment Anthropometrics: Wt Readings from Last 3 Encounters: 10/06/24 86 kg (189 lb 9.5 oz) 09/23/24 87.5 kg (192 lb 14.4 oz) 09/10/24 88.6 kg (195 lb 5.2 oz) Ht Readings from Last 1 Encounters: 10/06/24 1.778 m (5' 10 ) BMI Readings from Last 1 Encounters: 10/06/24 27.20 kg/m?? Biochemical: Lab Results Component Value Date GLUCOSE 89 07/28/2024 CALCIUM 9.7 07/28/2024 NA 137 07/28/2024 K 3.8 07/28/2024 CO2 26 07/28/2024 CL 102 07/28/2024 BUN 15 08/30/2024 CREATININE 0.71 08/30/2024 PHYSICAL EXAMINATION: General: Healthy-appearing 49 y.o. patient, alert and oriented x3, in no acute distress, well nourished, well developed. Psychiatric evaluation: Normal mood and affect, very pleasant and cooperative. Nasal cavity examination: Septum is midline. Oral cavity examination: The oral cavity is evaluated without concerning ulceration or lesion. Postsurgical changes to the oral commissure. The tongue demonstrates full range of motion. Neck: soft and supple. I did not feel any enlarged lymphadenopathy. Eyes: Extraocular movements are intact bilaterally. PERRLA. Neurological examination: Cranial nerves II-XII are grossly intact. Skin of the scalp, neck and face: did not reveal any evidence of significant rashes or suspicious appearing nevi or other concerning lesions. Endocrine examination: I do not feel any thyroid nodules. No thyromegaly. Respiratory: chest is symmetrical, breathing comfortably without effort. Extremities: Well granulating wound of the right lower extremity without concern for cellulitis. The patient has been counseled on tobacco cessation: Not Applicable Diagnosis Plan 1. Squamous cell carcinoma, lip Clinic Appointment Request Follow up; ADILENE HA 2. Malignant neoplasm of external lower lip Clinic Appointment Request Follow up; ADILENE HA 3. Dysphagia, oropharyngeal Clinic Appointment Request Follow up; ADILENE HA IMPRESSION/PLAN: Mr. Daniels returns for clinic today doing well. The patient's right lower extremity wound is healingas expected at this time. The patient has healthy granulation tissue without concern for infection.The patient will continue his damp to dry dressing changes as scheduled. The patient will be scheduled return to our clinic with an MRI of the thoracic spine with and without contrast to further excess hypermetabolic activity seen on PET-CT imaging. The patient will return to our clinic following his MRI. The patient will contact us sooner if there is any additional questions or concerns. The patient is advised that he may return to work at this time without restrictions. LUL [employer] Digital speech recognition software was used to dictate this note and, despite all efforts to proofread, some dictation errors may occur. If you have any questions, please do not hesitate to contact me. [1] Past Medical History: Diagnosis Date Blood infection hospitalized from 07/01/24 to 07/05/24, UTI, last IV antibiotic 07/15/24, PO antbiotics Congestive heart failure (CHF) ([facility] Diabetes ([facility]) High blood pressure Lip cancer Morbid obesity ([facility]) 01/07/2024 PONV (postoperative nausea and vomiting) Type 2 diabetes mellitus 01/07/2024 UTI (urinary tract infection) 01/07/2024 documented in this encounter Plan of Treatment Upcoming Encounters Date Type Department Care Team (Late st Contact Info) Description 11/08/2024 11:15 AM EDT Office Visit [facility] [address] [place] [address] Kelsey Cerda, DMD [address] [place] [address] 11/18/2024 10:00 AM EDT Office Visit [facility] [address] [place] [phone] Abel Johnson MD [address] [facility] [address] [place] [address] 11/23/2024 9:15 AM EDT Office Visit [facility] [address] [place] [address] Kelsey Cerda, DMD [address] [place] [address] 12/07/2024 11:15 AM EDT Office Visit [facility] [address] [place] [address] Kelsey Cerda, DMD [address] [facility] [address] [place] [address] 12/13/2024 8:00 AM EDT Appointment [facility] Radiology [address] [place] [phone] 12/13/2024 10:00 AM EDT Office Visit [facility] [address] [facility] [place] [phone] Viky Menon MD [address] [facility] [address] [place] [address] 12/13/2024 1:00 PM EDT Appointment [facility] Radiation [address] [facility] [place] [phone] Imer Sevilla MD [address] [facility] [address] [place] [address] 12/13/2024 2:45 PM EDT Office Visit [facility] Res[facility] [address] [facility] [place] [phone] Adilene Ha MD [address] [facility] [address] [place] [phone] 12/21/2024 10:15 AM EDT Office Visit [facility] [address] [place] [address] Kelsey Cerda, DMD [address] [place] [address] documented as of this encounter Results * MR Thoracic Spine w and wo IV Contrast (10/11/2024 12:42 PM EDT) Anatomical Region Laterality Modality T-spine Magnetic Resonan ce Impressions 10/15/2024 9:03 AM EDT 1. Multilevel degenerative disc disease without high-grade cord compression or spinal stenosis. 2. T10-11 discitis/osteomyelitis with adjacent phlegmon extending from upper T9 to lower T12 and with localized epidural phlegmon about the T10-11 level. No discrete abscess. Secondary focal kyphosis. CRITICAL RESULT: No. COMMUNICATION: Report sent to Dr. Salcedo via [employer] at 9:05 AM on October 15.. Drafted by Roberto Flores on 10/15/2024 8:33 AM Final report signed by Roberto Flores on 10/15/2024 9:03 AM Narrative 10/15/2024 9:03 AM EDT CLINICAL INDICATION: Metastatic disease evaluation. 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 Recent MRSA sepsis and left SCJ septic arthritis with adjacent osteomyelitis. TECHNIQUE: Multiplanar multiecho sequences were obtained through the thoracic spine utilizing T1 and T2 weighting with and without the administration of intravenous contrast. 15 series were obtained including localizer series. 8.6mL Gadavist. COMPARISON: CT chest of July 21. None. FINDINGS: Diagnostic Quality: Adequate. Alignment: Focal lower thoracic kyphosis centered at T10-11. Marrow: The marrow signal is generally normal, but high signal within T10 and T11 vertebral bodies is present.. Vertebrae and Intervertebral Discs: Vertebral body heights are generally normal. However, there is endplate irregularity with Schmorl's node formation at the T10-11 interspace with superior endplate collapse of T11 of approximately 30%. Ligaments: The anterior and posterior longitudinal ligaments and interspinous ligaments are intact. Spinal Cord and Spinal Canal: The spinal cord is of normal caliber without abnormal intrinsic signal. No abnormal enhancement is present within the spinal canal. High fluid signal within the T10-11 disc, with adjacent bony endplate erosion, disc enhancement, paraspinal and subligamentous prespinal infiltrate also present in the epidural space and within the local foramina with diffuse enhancement is seen on axial /15. No superior or inferior epidural expansion beyond the T10 or T12 is present. Prevertebral and paravertebral phlegmon without apparent abscess extends from the to the T11-12 levels. Significant findings by level: T1-2: Superior endplate of T2 Schmorl's node of long-standing, of approximately 10%. T6-7: Central HNP with ventral cord indentation but without significant neural compression. T7-8: Degenerative disc with loss of disc height and concentric disc osteophyte with superimposed central disc extrusion indenting the canal but without significant central stenosis. Foramina patent. T8-9: Right-sided disc osteophyte with slight ventral sac compression. T9-10: Discitis osteomyelitis as described above with areas of endplate destruction and partial vertebral collapse as described. T11-12: Degenerative disc disease with Schmorl's node formation but without active osteomyelitis. No significant protrusion. T12-L1: Degenerative disc with concentric disc bulging and osteophyte but without significant neural compression. The foramina do not show severe neural compression at any level. Prevertebral and Paraspinal Soft Tissues: There is no prevertebral or paraspinal soft tissue swelling or mass. Other Findings: None. Procedure Note Roberto Flores MD - 10/15/2024 CLINICAL INDICATION: Metastatic disease evaluation. Metastatic squamous cell cancer of the oralcavity post composite mandibular resection and chemotherapy RT. RecentMRSA sepsis and left SCJ septic arthritis with adjacent osteomyelitis. TECHNIQUE: Multiplanar multiecho sequences were obtained through the thoracic spineutilizing T1 and T2 weighting with and without the administration ofintravenous contrast. 15 series were obtained including localizer series.8.6mL Gadavist. COMPARISON: CT chest of July 21. None. FINDINGS: Diagnostic Quality: Adequate. Alignment: Focal lower thoracic kyphosis centered at T10-11. Marrow: The marrow signal is generally normal, but high signal within T10and T11 vertebral bodies is present.. Vertebrae and Intervertebral Discs: Vertebral body heights are generallynormal. However, there is endplate irregularity with Schmorl's nodeformation at the T10- 11 interspace with superior endplate collapse of T11of approximately 30%. Ligaments: The anterior and posterior longitudinal ligaments andinterspinous ligaments are intact. Spinal Cord and Spinal Canal: The spinal cord is of normal caliber withoutabnormal intrinsic signal. No abnormal enhancement is present within thespinal canal. High fluid signal within the T10-11 disc, with adjacent bony endplateerosion, disc enhancement, paraspinal and subligamentous prespinalinfiltrate also present in the epidural space and within the localforamina with diffuse enhancement is seen on axial 9/15. No superior orinferior epidural expansion beyond the T10 or T12 is present. Prevertebraland paravertebral phlegmon without apparent abscess extends from the tothe T11-12 levels. Significant findings by level: T1-2: Superior endplate of T2 Schmorl's node of long-standing, ofapproximately 10%. T6-7: Central HNP with ventral cord indentation but without significantneural compression. T7-8: Degenerative disc with loss of disc height and concentric discosteophyte with superimposed central disc extrusion indenting the canalbut without significant central stenosis. Foramina patent. T8-9: Right-sided disc osteophyte with slight ventral sac compression. T9-10: Discitis osteomyelitis as described above with areas of endplatedestruction and partial vertebral collapse as described. T11-12: Degenerative disc disease with Schmorl's node formation butwithout active osteomyelitis. No significant protrusion. T12-L1: Degenerative disc with concentric disc bulging and osteophyte butwithout significant neural compression. The foramina do not show severe neural compression at any level. Prevertebral and Paraspinal Soft Tissues: There is no prevertebral orparaspinal soft tissue swelling or mass. Other Findings: None. IMPRESSION: 1. Multilevel degenerative disc disease without high-grade cordcompression or spinal stenosis. 2. T10-11 discitis/osteomyelitis with adjacent phlegmon extending fromupper T9 to lower T12 and with localized epidural phlegmon about [id number] level. No discrete abscess. Secondary focal kyphosis. CRITICAL RESULT: No. COMMUNICATION: Report sent to Dr. Salcedo via [employer] at 9:05 AM on October 15.. 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, face and neck (CMS/HCC) Squamous cell carcinoma, lip Other malignant neoplasm of skin of 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 Malignant neoplasm of lower lip, vermilion border Acute osteomyelitis of left clavicle (CMS/HCC) 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, face and neck (CMS/HCC) documented in this encounter Additional Health Concerns Infection Onset Date 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 02/19/2024 Assessment Noted Time PHQ-9 Depression Total Score: 0 09/03/19 25 8:44 AM EDT A fall risk assessment has been complete d for the patient 10/06/2024 11:14 AM EDT A Body Mass Index follow-up plan has been documented for the patient 09/16/2024 9:46 AM EDT documented as of this encounter Care Teams Brake Operator Helper Relationship Specialty Start Date End Date Carson Ibrahim MD [address] [facility] [facility] [address] [place] [address] PCP - General 11/20/23 Imer Sevilla MD [address] [place], [place] [address] [place] [address] Consulting Physician Radiation Oncology 02/27/24 Viky Menon MD [address] [address] Consulting Physician Medical Oncology 04/21/24 Amelia Freeman, RN Registered Nurse Hematology and Oncology 05/13/24 documented as of this encounter
--- OUTSIDE RECORDS SUMMARY | 2024-10-11 11:04 | XMS_ITS | Encounter Summary ---
Author Organization [facility] Address [address] [id number] Care Team Providers Care Trapper Bird Name Role Phone Carson Ibrahim MD Primary Care Provider + [phone] Imer Sevilla MD Unavailable Viky Menon MD Unavailable +[phone] Amelia Freeman RN Unavailable Unavailable Reason for [...] Thoracic Spine w and wo IV Contrast Matias Eldridge MD [address] [place] [phone] Phone: tel: fax: Referral ID Status Reason Start Date Expiration Date Visits Re quested Visits Authorized [id number] Closed 10/08/2024 04/09/2026 1 1 Reason for Visit * Imaging (Urgent) - Closed Specialty Diagnoses / Procedures Referred By Kameron santana Referred To Contact Radiology Diagnoses Squamous cell carcinoma, 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 of left clavicle (CMS/HCC) 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, face and neck (CMS/HCC) Procedures MR Thoracic Spine w and wo IV Contrast Matias Eldridge MD [address] [place] [address] [place] [phone] Phone: tel: fax: Referral ID Status Reason Start Date Expiration Date Visits Re quested Visits Authorized [id number] Closed 10/08/2024 04/09/2026 1 1 Encounter Details Date Type Department Care Team (Latest Contact Info) Description 10/11/2024 11:04 AM EDT - 10/11/2024 11:59 PM EDT Hospital Encounter [facility] [address] [place] [address] Squamous cell carcinoma, lip; Malignant neoplasm of external lower lip; Acute osteomyelitis of left clavicle (CMS/HCC); Squamous cell carcinoma of neck; Secondary malignant neoplasm lymph nodes of head, face and neck (CMS/HCC) Discharge Disposition: Home or Self Care Social [...] drink first t idalia in the morning ([employer]) to steady your nerves or to get [...] needed for severe pain (g89.3). 180 tablet 09/30/2024 documented as of this encounter Plan of Treatment Upcoming Encounters Date Type Department Care Team (Late st Contact Info) Description 11/08/2024 11:15 AM EDT Office Visit [facility] [address] [place] [address] Kelsey Cerda, DMD [address] [place] [address] 11/18/2024 10:00 AM EDT Office Visit [facility] [address] [place] [address] Abel Johnson MD [address] [facility] [address] [place] [address] 11/23/2024 9:15 AM EDT Office Visit [facility] [address] [place] [address] Kelsey Cerda, DMD [address] [facility] [address] [place] [address] 12/07/2024 11:15 AM EDT Office Visit [facility] [address] [place] [address] Kelsey Cerda, DMD [address] [facility] [address] [place] [address] 12/13/2024 8:00 AM EDT Appointment [facility] [address] [place] [phone] 12/13/2024 10:00 AM EDT Office Visit [facility] [address] [place] [address] Viky Menon MD [address] [facility] [address] [place] [address] 12/13/2024 1:00 PM EDT Appointment [facility] [address] [facility] [place] [address] Imer Sevilla MD [address] [facility] [address] [place] [address] 12/13/2024 2:45 PM EDT Office Visit [facility] [address] [facility], 2nd [place] [address] Matias Eldridge MD [address] [facility] [address] [place] [address] 12/21/2024 10:15 AM EDT Office Visit [facility] [address] [place] [address] Kelsey Cerda, DMD [address] [place] [address] documented as of this encounter Procedures Procedure Name Priority Date/Time Associated Diagnosis Comments MR THORACIC SPINE W AND WO IV CONTRAST Routine 10/11/2024 12:42 PM EDT Squamous cell carcinoma, 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 Salcedo via [email or web address] at 9:05 AM on October 15.. Drafted [...] with diffuse enhancement is seen on axial 15. No superior or inferior epidural expansion beyond [...] with diffuse enhancement is seen on axial 12/06. No superior orinferior epidural expansion beyond the [...] T12 and with localized epidural phlegmon about [id number] level. No discrete abscess. Secondary focal kyphosis. CRITICAL RESULT: No. COMMUNICATION: Report sent to Dr. Salcedo via [email or web address] at 9:05 AM on October 15.. Drafted by Roberto Flores on 10/15/2024 8:33 AM Final report signed by Roberto Flores on 10/15/2024 9:03 AM Matias Eldridge MD IMG MRI PROCEDURES Final Resul t [...] and neck (CMS/HCC) documented in this encounter Administered Medications Inactive Administered Medications - up to 3 most recent administrations Medication Order MAR Action Action Date Dose Rate Site gadobutrol (Gadavist) injection 8.6 mL 8.6 mL (0.1 mL/kg 86 kg), Intravenous, Once in imaging, 1 dose, Starting on Fri10/11/24 at 1226, Until Fri10/11/24 at 1233, Routine, Imaging Protocol Orders Given 10/11/2024 12:33 PM EDT 8.6 mL Right Forearm documented in this encounter Additional Health Concerns [...] documented as of this encounter Care Teams Trapper Bird Relationship Specialty Start Date End Date Carson Ibrahim MD [id number] [place] [address] PCP - General 11/20/23 Imer Sevilla MD [address] [facility] [address] [place] [address] Consulting Physician Radiation Oncology 02/27/24 Viky Menon MD [address] [facility] [address] [place] [address] Consulting Physician Medical Oncology 04/21/24 Amelia Freeman, RN Registered Nurse Hematology and Oncology 05/13/24 documented as of this encounter
--- OUTSIDE RECORDS SUMMARY | 2024-10-13 10:00 | XMS_ITS ---
Author Organization [facility] Address [address] [facility] [address] [place] [phone] Care Team Providers Care Custom Ski Maker Name Role Phone Carson Ibrahim Primary Care Provider [phone] Allergies Allergen (clinical drug ingredient) Drug/Non Drug Allergy documented on EMR Reaction Allergy Type Onset Date Status Penicillin Rash Drug Allergy Active Results Component Value Reference Range Notes Urinalysis - Inhouse Reviewed date:10/13/2024 10:22:05 PM Interpretation: Performing Lab: Notes/Report: Color/Clarity Yellow/Clear Leuk 2+ Nitrite Neg Urobili 3.2 Protein Neg pH 5.5 Blood 1+ Sp. Gr. <=1.005 Ketone Neg Bili Neg Gluc Neg Glycohemoglobin A1c (in hous e) Reviewed date:10/20/2024 04:06:50 PM Interpretation:5.4 Performing Lab: Notes/Report: 5.4 glycohemoglobin 5.4 5 - 6.5 % P-Culture, Urine Reviewed date:10/15/2024 12:21:19 PM Interpretation:No growth Performing Lab: Notes/Report: Test performed by [employer] [address] [place] [address] , [address], [place] [address] Calos Chacon MD, Live Study Manager CLIA: [id number] Specimen Source Urine - Void Culture, Urine See Below Final Report : No growth REASON FOR VISIT possible UTI Medications Medication SIG (Take, Route, Fr equency, Duration) Notes Start Date End Date Status Carvedilol 6.25 MG 1 tablet with food O rally Twice a day Active Macrobid 100 MG 1 capsule with food Orally every 12 hrs; Duration: 5 days 10/13/2024 Active Vital Signs Weight 195 lbs 10/13/2024 Blood pressure systolic 108 mm Hg 10/14/19 25 Blood pressure diastolic 72 mm Hg 025 Heart Rate 75 /min 10/13/2024 Height 69.5 in 10/13/2024 BMI 28.38 kg/m2 10/13/2024 Encounters Encounter Location Date Provider Diagnosis [facility] [facility] [address] [facility] [address] [place] [phone] 10/13/2024 Carson Ibrahim Acute UTI N39.0 and Type 2 diabetes mellitus without complication, without long-term current use of insulin E11.9 Assessments Encounter Date Diagnosis (ICD Code) Assessment Notes Treatment Notes Treatment Clinical Notes Section Notes 10/13/2024 Acute UTI (ICD-10 - N39.0) 10/13/2024 Type 2 diabetes mellitus without complication, without long-term current use of insulin (ICD-10 - E11.9) Plan Of Treatment Medication Medication Name Sig Start Date Stop Date Notes Macrobid 100 MG 1 capsule with food Orally every 12 hrs; Duration: 5 days 10/13/2024 Next Appt Details Follow Up: prn, Reason: Provider Name:Carson Esteban ry, 12/02/2024 09:30:00 AM, [address] [facility] [address] [facility], [address], [place], [phone], Progress Notes * RAYMOND DANIELSPELONOB:1975 (49 yo M)Acc No.[id number]:10/13/2024 Progress Notes Patient: PERRY JOHNSON Provider: Mila Ibrahim M.D. :1975 A ge:49 Y S ex:Male Date:10/13/2024 Address:[address] [place], [place] [phone] Subjective: * Chief Complaints: * 1 . possible UTI. 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 * ROS: C ARDIOLOGY: no D izziness. n o C hest pain. D ERMATOLOGY: no R elaine. n o H donald. G ASTROENTEROLOGY: no N ausea. n o V omiting. * Medical History: H ypertension, Dx: 2001, [...] stic Procedure: k idney stone surgery , [facility] ER - UTI 11/08/2018, [facility] - Neck Surgery 10/13-. * Family [...] at age 15. * Medications: T aking Carvedilol 6.25 MG Tablet 1 tablet with food Orally Twice a day , Medication List reviewed and reconciled with the patient * Allergies: P enicillin: Rash. Objective: * Vitals: W t: 195, Temp: 97.8, BP: 108/72, HR: 75, Nurse: jovanny, Ht: 69.5, BMI:28.38. Assessment: * Assessment: 1. A cute UTI - N39.0 (Primary) 2 . T ype 2 diabetes mellitus without complication, without long-term current use of insulin - E11.9 Plan: * Treatment: Value Reference Range C ulture, Urine See Below - * S pecimen Source Urine - Void - * Patt Lawrence 10/15/2024 10:1 4:32 AM EDT >pt started on MacrobidKingMavis 10/15/2024 12:20:51 PM EDT > Pt informed ?LAB: Urinalysis - Inhouse (Collection Date & Time - 10/13/2024)* Value Reference Range C olor/Clarity Yellow/Clear * L euk 2+ * N itrite Neg * U robili 3.2 * P rotein Neg * p H 5.5 * B lood 1+ * S p. Gr. <=1.005 * K etone Neg * B daljit Neg * G bob Neg * Mavis William 10/13/2024 03:08: 03 PM EDT > Provider reviewed results while patient in office.Carson Ibrahim 10/13/2024 10:22:01 PM EDT > 2.?Type 2 diabetes mellitus without complication, without long-term current use of insulin?LAB: Glycohemoglobin A1c (in house) (Collection Date & Time - 10/13/2024)? 5.4* Value Reference Range g lycohemoglobin 5.4 5 - 6.5 % * Patt Lawrence 10/20/2024 04:0 6:35 PM EDT >see duplicate order * Procedure Codes: 8 1002 Urinalysis, no micro, [address] GLYCATED HEMOGLOBIN TEST, Modifiers: QW , 3044F HG A1C LEVEL LT 7.0% * Follow Up: p rn * Images: Billing Information: * Visit Code: 68805 Office Visit, Est Pt., Level 3. * Procedure Codes: 48790 Urinalysis, [place] micro. [address] GLYCATED HEMOGLOBIN TEST. Modifiers: QW 3044F HG A1C LEVEL LT 7.0%. * Electronic signature of Alia Ibrahim MD on 10/27/2024 at 10:43 AM EDT Sign off status: Pending * Provider: Mila Ibrahim M.D. Date: 0 10/13/2024 Generated for Scotti ng/Fadalig/eTransmitting on: 0 10/27/2024 10:43 AM EDT
--- OUTSIDE RECORDS SUMMARY | 2024-10-13 10:00 | XMS_ITS ---
Author Organization [facility] Address [address] [facility] [address] [place] [phone] Care Team Providers Care Wheel Cutter Name Role Phone Carson Ibrahim Primary Care Provider [phone] Allergies Allergen (clinical drug ingredient) Drug/Non Drug Allergy documented on EMR Reaction Allergy Type Onset Date Status Penicillin Rash Drug Allergy Active Results Component Value Reference Range Notes Urinalysis - Inhouse Reviewed date:10/13/2024 10:22:33 PM Interpretation: Performing Lab: Notes/Report: Color/Clarity Yellow/Clear Leuk 2+ Nitrite Neg Urobili 3.2 Protein Neg pH 5.5 Blood 1+ Sp. Gr. 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 Medications Medication SIG (Take, Route, Fr equency, Duration) Notes Start Date End Date Status Carvedilol 6.25 MG 1 tablet with food O rally Twice a day Active Vital Signs Weight 195 lbs 10/13/2024 Blood pressure systolic 108 mm Hg 10/14/19 25 Blood pressure diastolic 72 mm Hg 025 Heart Rate 75 /min 10/13/2024 Height 69.5 in 10/13/2024 BMI 28.38 kg/m2 10/13/2024 Encounters Encounter Location Date Provider Diagnosis [facility] [address] [facility] [address] [place] [phone] 10/13/2024 Carson Ibrahim Encounter 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 Depart ment 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 [place] license Z02.4 and Type 2 diabetes mellitus without complication, without long-term current use of insulin E11.9 Assessments Encounter Date Diagnosis (ICD Code) Assessment Notes Treatment Notes Treatment Clinical Notes Section Notes 10/13/2024 Encounter for Department 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 [place] license (ICD-10 - Z02.4) 10/13/2024 Type 2 diabetes mellitus without complication, without long-term current use of insulin (ICD-10 - E11.9) Plan Of Treatment Next Appt Details Follow Up: prn, Reason: Provider Name:Carson Esteban ry, 12/02/2024 09:30:00 AM, [address], [place], [place], [phone], Progress Notes * RAYMOND DANIELSPELONOB:1975 (49 yo M)Acc No.[id number]:10/13/2024 Physical Patient: PERRY JOHNSON Provider: Mila Ibrahim M.D. :1975 A ge:49 Y S ex:Male Date:10/13/2024 Address:[address] [place] [address] Subjective: * Chief Complaints: * 1 . 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 * ROS: D ERMATOLOGY: no R elaine. [...] stic Procedure: aiyana crow stone surgery , [facility] - UTI 11/08/2018, [facility] - Neck Surgery 10/13-. * Family History: [...] with food Orally Twice a day , Discontinued oxyCODONE HCl 15 MG Tablet 1 tablet Orally every 4 hrs , Discontinued Wheelchair - Miscellaneous as directed , Discontinued Famotidine 20 MG Tablet 1 tablet at bedtime as needed Orally Twice a day , Medication List reviewed and reconciled with the patient * Allergies: P enicillin: Rash. Objective: * Vitals: W t: 195, Temp: 97.8, BP: 108/72, HR: 75, Nurse: jovanny, Ht: 69.5, Visual Acuity: Left eye:20/20, Right eye:20/20, Both eyes:20/20, Color:Pass, BMI:28.38. * Examination: G eneral Examination: General Appearance: N AD. H EENT: u nremarkable.?Oral cavity: n o lesions, mucosa moist and WNL, no erythema. N ping: s upple, no lymphadenopathy. C hest: n ormal shape and expansion. H eart: R SR. L ungs: c lear to auscultation. A bdomen: b owel sounds present, soft and nontender. N eurologic Exam: I ntact, gait normal. S kin: w ell healed surgical scars on neck and legs. P eripheral pulses: n ormal (2+) bilaterally. E xtremities: n o leg edema. ? Assessment: * Assessment: 1. E ncounter for Department 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 [place] license - Z02.4 (Primary) 2 . T ype 2 diabetes mellitus without complication, without long-term current use of insulin - E11.9 Plan: * Treatment: Value Reference Range C olor/Clarity Yellow/Clear * L euk 2+ * N itrite Neg * U robili 3.2 * P rotein Neg * p H 5.5 * B lood 1+ * S p. Gr. <=1.005 * K etone Neg * B daljit Neg * G bob Neg * Mavis William 10/13/2024 02:36: 19 PM EDT > Provider reviewed results while patient in office.Carson Ibrahim 10/13/2024 10:22:29 PM EDT > 2.?Type 2 diabetes mellitus without complication, without long-term current use of insulin?LAB: Glycohemoglobin A1c (in house) (Collection Date & Time - 10/13/2024)? 5.4* Value Reference Range g lycohemoglobin 5.4% 5 - 6.5 % * Emma Pizarro 10/13/2024 0 3:14:01 PM EDT > Provider reviewed results while patient in office.Carson Ibrahim 10/13/2024 10:22:16 PM EDT > * Procedure Codes: 9 9173 VISUAL ACUITY SCREEN, [address] Urinalysis, no micro * Follow Up: p rn * Images: Billing Information: * Visit Code: 33728 Preventive Care Est Pt Age 40-64. * Procedure Codes: 43962 VISUAL ACUITY SCREEN. 53610 Urinalysis, no micro. * Electronic signature of Alia Ibrahim MD on 10/27/2024 at 10:42 AM EDT Sign off status: Pending * Provider: Mila Ibrahim M.D. 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
--- OUTSIDE RECORDS SUMMARY | 2024-10-18 14:45 | XMS_ITS | Encounter Summary ---
Author Organization [facility] Address [address] [place] [id number] Care Team Providers Care Canoe Inspector Final Name Role Phone Carson Ibrahim MD Primary Care Provider [phone] Imer Sevilla MD Unavailable Viky Menon MD Unavailable [phone] Amelia Freeman RN Unavailable Unavailable Reason for Referral * Imaging (Routine) - Pending Review Specialty Diagnoses / Procedures Referred By Contac t Referred To Contact Radiology Diagnoses Squamous cell carcinoma, lip Procedures CT Soft Tissue Neck w IV Contrast Adilene Ha MD 800 [facility] Cancer [address] [address] Phone: tel: fax: Referral ID Status Reason Start Date Expiration Date V isits Requested Visits Authorized [id number] Pending Review 10/18/2024 04/19/2026 1 1 * Imaging (Routine) - Pending Review Specialty Diagnoses / Procedures Referred By Contac t Referred To Contact Radiology Diagnoses Squamous cell carcinoma, lip Procedures CT Chest w IV Contrast Adilene Ha MD [address] [address] Phone: tel: fax: Referral ID Status Reason Start Date Expiration Date V isits Requested Visits Authorized [id number] Pending Review 10/18/2024 04/19/2026 1 1 * Consultation (Urgent) - Closed Specialty Diagnoses / Procedures Referred By Kameron santana Referred To Contact Infectious Diseases Diagnoses Osteomyelitis of spine (CMS/HCC) Adilene Ha MD 800 [facility] Cancer [address] [address] Phone: tel: fax: Referral ID Status Reason Start Date Expiration Date V isits Requested Visits Authorized [id number] Closed Specialty Services Required 10/18/2024 04/19/2026 1 1 Scheduling Instructions Patient known to Dr. Johnson Reason for Visit * Reason Comments Follow-up Encounter Details Date Type Department Care Team (Latest Contact Info) Description 10/18/2024 2:45 PM EDT Office Visit [facility] Res[facility] 800 [facility], 2nd [place] [address] Adilene Ha MD 800 [facility] Cancer [address] [address] Osteomyelitis of spine (CMS/HCC) (Primary [...] any time in the past [address] [facility], were you homeless or living in [...] drink first t idalia in the morning (EYE-VOLUNTEER ASSISTANT) to steady your nerves or to get rid of a hangover? 0 07/22/2024 CAGE Questionnaire Score 0 025 Utilities Answer Date Recorded In the past 12 months has th e [employer], gas, oil, or water [employer] threatened to shut off services in your [...] Dr. Cruz and radiation therapy given in [place]. CT Neck and Face 12-10-23 CT face [...] Applicable Diagnosis Plan 1. Osteomyelitis of spine ([facility]) Ambulatory referral to Infectious Disease 2. Squamous [...] IMPRESSION/PLAN: 49 YO CM initially presenting with [id number] SCCa of the left submandibular gland/FoM/mandible s/p resection and re-irradiation with concurrent chemotherapy (completed 04/2024). First post treatment PET/CT AURY recurrence but with uptake in the spine. Subsequent MRI demonstrates osteomyelitis without abscess formation. He is already established with ID due to prior septic sternoclavicular joint. Will place urgent ambulatory referral to Dr. Johnson for evaluation and treatment. Follow up with pr in2 months with CT neck and chest [...] 07/15/24, PO antbiotics Congestive heart failure (CHF) ([facility] Diabetes ([facility]) High blood pressure Lip cancer Morbid obesity ([facility]) 01/07/2024 PONV (postoperative nausea and vomiting) Type 2 diabetes mellitus 01/07/2024 UTI (urinary tract infection) 01/07/2024 documented in this encounter Plan of Treatment Upcoming Encounters Date Type Department Care Team (Late st Contact Info) Description 11/08/2024 11:15 AM EDT Office Visit [facility] [address] [place] [address] Kelsey Cerda, DMD [address] [phone] 11/18/2024 10:00 AM EDT Office Visit [address] [address] Abel Johnson MD [address] [place] [address] [address] [place] [address] 11/23/2024 9:15 AM EDT Office Visit [facility] [address] [place] [address] Kelsey Cerda, DMD [address] [facility] [address] [place] [address] 12/07/2024 11:15 AM EDT Office Visit [facility] [address] [place] [address] Kelsey Cerda, DMD [address] [facility] [address] [place] [address] 12/13/2024 8:00 AM EDT Appointment [facility] Radiology [address] [place] [address] 12/13/2024 10:00 AM EDT Office Visit [facility] [address] [facility], [address] [place] [address] Viky Menon MD [address] [facility] [address] [place] [address] 12/13/2024 1:00 PM EDT Appointment [facility] Radiation [address] [facility]. [address] [place] [address] Imer Sevilla MD [address] [facility] [address] [place] [address] 12/13/2024 2:45 PM EDT Office Visit [facility] [address] [facility], [address] [place] [address] Adilene Ha MD 800 [facility] [address] [place] [address] 12/21/2024 10:15 AM EDT Office Visit [facility] [address] [address] Kelsey Cerda, DMD [address] [facility] [address] [place] [address] Scheduled Orders Name Type Priority Associated Diagnoses Orde r Schedule CT Chest w IV Contrast Imaging Routine Squamous cell carcinoma, lip Expected: 12/19/2024 (Approximate), Expires: 04/21/2026 CT Soft Tissue Neck w IV Contrast Imaging Routine Squamous cell carcinoma, lip Expected: 12/19/2024 (Approximate), Expires: 04/21/2026 Scheduled Referrals Name Type Priority Associated Diagnoses [...] documented as of this encounter Care Teams Canoe Inspector Final Relationship Specialty Start Date End Date Carson Ibrahim MD [address] [address] PCP - General 11/20/23 Imer Sevilla MD [address] [place] [facility] [address] [place] [address] Consulting Physician Radiation Oncology 02/27/24 Viky Menon MD [address] [place] [address] Consulting Physician Medical Oncology 04/21/24 Amelia Freeman, RN Registered Nurse Hematology and Oncology 05/13/24 documented as of this encounter
--- OUTSIDE RECORDS SUMMARY | 2024-10-19 06:15 | XMS_ITS ---
Author Organization [facility] Address 1210 [facility] [address] [id number] Care Team Providers Care Irrigation Foreman Name Role Phone Carson Ibrahim Primary Care Provider [phone] Allergies Allergen (clinical drug ingredient) Drug/Non Drug [...] Encounter Location Date Provider Diagnosis [facility] 12[facility] [address] [place] [id number] 10/19/2024 Carson Ibrahim Thoracic discitis M46.44 and [...] rt progress, Reason: Provider Name:Carson Esteban ry, 12/02/2024 09:30:00 AM, [address], [place], [id number], Progress Notes * NOE DANIELSOB:1975 (49 yo M)Acc No.[id number]:10/19/2024 Progress Notes Patient: PERRY JOHNSON Provider: Mila Ibrahim M.D. :1975 A ge:49 Y S ex:Male Date:10/19/2024 Address:[address] [place] [address], [id number] Subjective: * Chief Complaints: * 1 . [...] k idney stone surgery , [facility] ER - UTI 11/08/2018, [facility] - Neck Surgery 10/13-. * Family [...] * Images: Billing Information: * Visit Code: 00511 Office Visit, Est Pt., Level 3. * Procedure Codes: 1036F TOBACCO NON-USER. 3074F SYST BP LT 130 MM HG. 3078F DIAST BP < 80 MM HG. * Electronic signature of Alia Ibrahim MD on 10/27/2024 at 10:42 AM EDT Sign off status: Pending * Provider: Mila Ibrahim M.D. Date: 0 10/19/2024 Generated for Cristhian louis/Constanza/Dipakitting on: 0 10/27/2024 10:42 AM EDT History [...]
--- OUTSIDE RECORDS SUMMARY | 2024-10-21 08:30 | XMS_ITS | Encounter Summary ---
Author Organization Healthcare Address [address] [place] [address] Care Team Providers Care Political Advisor Name Role Phone Carson Ibrahim MD Primary Care Provider + [phone] Imer Sevilla MD Unavailable Viky Menon MD Unavailable +[phone] Amelia Freeman RN Unavailable Unavailable Reason for Referral * Imaging (Routine) - Pending Review Specialty Diagnoses / Procedures Referred By Kameron t Referred To Contact Radiology Diagnoses Osteomyelitis of thoracic spine (CMS/HCC) MRSA bacteremia Procedures CT Guided Biopsy Bone Superficial (Ilium, Sternum, Spinous Process, Rib) Consult to Interventional Radiology Brittney Johnson MD [address] [place] [phone] Phone: tel: fax: Referral ID Status Reason Start Date Expiration Date V isits Requested Visits Authorized [id number] Pending Review 10/21/2024 04/22/2026 1 1 * Imaging (Routine) - Pending Review Specialty Diagnoses / Procedures Referred By Kameron santana Referred To Contact Radiology Diagnoses Osteomyelitis of thoracic spine (CMS/HCC) MRSA bacteremia Lumbar back pain Procedures MR Lumbar Spine w and wo IV Contrast Brittney Johnson MD [address] [place] [phone] Phone: tel: fax: Referral ID Status Reason Start Date Expiration Date V isits Requested Visits Authorized [id number] Pending Review 10/21/2024 04/22/2026 1 1 * Consultation (Routine) - Authorized Specialty Diagnoses / Procedures Referred By Contac t Referred To Contact Diagnoses Osteomyelitis of thoracic spine (CMS/HCC) Brittney Johnson MD [address] [place] [phone] Phone: tel: fax: Referral ID Status Reason Start Date Expiration Date V isits Requested Visits Authorized [id number] Authorized 10/21/2024 04/22/2026 1 1 Reason for Visit * Consultation (Urgent) - Closed Specialty Diagnoses / Procedures Referred By Contac t Referred To Contact Infectious Diseases Diagnoses Osteomyelitis of spine (CMS/HCC) Matias Eldridge MD [address] [place] [address] [address] Phone: tel: fax: Referral ID Status Reason Start Date Expiration Date V isits Requested Visits Authorized [id number] Closed Specialty Services Required 10/18/2024 04/19/2026 1 1 Encounter Details Date Type Department Care Team (Late st Contact Info) Description 10/21/2024 8:30 AM EDT Office Visit [address] [phone] Brittney Johnson MD [address] [place] [phone] Osteomyelitis of thoracic spine (CMS/HCC) (Primary Dx); MRSA bacteremia; Lumbar back pain [...] any time in the past 12 m [facility], were you homeless or living in a [...] drink first t idalia in the morning (EYE-SEPTIC TANK SERVICE TECHNICIAN) to steady your nerves or to get rid of a hangover? 0 07/22/2024 CAGE Questionnaire Score 0 025 Utilities Answer Date Recorded In the past 12 months has th [employer], gas, oil, or water company threatened to [...] chemotherapy and XRT. Patient recently admitted at [facility] from 07/01 -> 07/08 for MRSA [...] 0857 06/29 BCX MRSA (OSH, see Media) 5/ Bcx, 07/26 Bcx no growth 07/21 CT [...] and XRT and was recently admitted at [facility] from 07/01 -> 07/08 for MRSA bacteremia, where he notes left clavicle/shoulder pain first started. Thereafter admitted to [facility] for further management after a 07/21 [...] Description 11/08/2024 11:15 AM EDT Office Visit [facility] Adult [facility]istry [address] [place] [address] Kelsey Cerda, DMD [address] [facility] [place] [phone] 11/18/2024 10:00 AM EDT Office Visit [facility] [address] [place] [address] Brittney Johnson MD [address] [place] [phone] 11/23/2024 9:15 AM EDT Office Visit [facility] Adult Dentistry [address] [place] [phone] Kelsey Cerda, DMD [address] [place] [phone] 12/07/2024 11:15 AM EDT Office Visit [facility] Adult [facility]istry [address] [place] [address] Kelsey Cerda, DMD [address] [place] [address] 12/13/2024 8:00 AM EDT Appointment [facility] [address] [place] [phone] 12/13/2024 10:00 AM EDT Office Visit [facility] [address] [place] [phone] Viky Menon MD [address] [place] [address] 12/13/2024 1:00 PM EDT Appointment [facility] [id number] [place] [phone] Imer Sevilla MD [address] [place] [address] 12/13/2024 2:45 PM EDT Office Visit [facility] [address] [place] [address] Matias Eldridge MD [address] [facility] [address] [place] [address] 12/21/2024 10:15 AM EDT Office Visit [facility] [address] [place] [address] Kelsey Cerda, DMD [address] [facility] [address] [place] [address] Scheduled Orders Name Type Priority Associated Diagnoses Orde r Schedule Tissue Culture and Gram Stain Microbiology Routine Osteomyelitis of thoracic spine ([facility]) Expected: 10/21/2024 (Approximate), Expires: 04/24/2026 AFB Culture, Non Repiratory Source and Acid Fast Stain Microbiology Routine Osteomyelitis of thoracic spine ([facility]) Expected: 10/21/2024 (Approximate), Expires: 04/24/2026 Fungal Culture, Tissue and JESUS Microbiology Routine Osteomyelitis of thoracic spine ([facility]) Expected: 10/21/2024 (Approximate), Expires: 04/24/2026 MR Lumbar Spine w and wo IV Contrast Imaging Routine Osteomyelitis of thoracic spine ([facility]) MRSA bacteremia Lumbar back pain Expected: 10/21/2024 (Approximate), Expires: 04/24/2026 CT Guided Biopsy Bone Superficial (Ilium, Sternum, Spinous Process, Rib) Imaging Routine Osteomyelitis of thoracic spine ([facility]) MRSA bacteremia Expected: 10/21/2024, Expires: 04/24/2026 Scheduled Referrals Name Type Priority Associated Diagnoses Orde r Schedule Follow Up ID Outpatient Referral Routine Osteomyelitis of thoracic spine ([facility]) Expected: 11/18/2024, Expires: 11/21/2025 documented as of this encounter Results * (ABNORMAL) C-reactive protein (10/21/2024 9:26 AM EDT) CRP, Plasma 36.2(H) <=8.0 mg/L 10/21/2024 1:07 PM EDT [facility] Blood Venous blood specimen / Unknown Venipuncture / Unknown 10/21/2024 9:26 AM EDT 10/21/2024 9:29 AM EDT Narrative [facility] - 10/21/2024 1:07 PM EDT This CRP test is appropriate for assessment of infection, systemic inflammation and/or tissue injury. To assess cardiovascular disease risk order high sensitivity CRP (CRPH). Brittney Johnson MD LAB BLOOD ORDERABLE S Final Result [facility] [address] [place] [address] * (ABNORMAL) Comprehensive Metabolic Panel, Plasma (10/21/2024 9:26 AM EDT) Glucose, Plasma 95 74 - 99 mg/dL 10/21/2024 1:07 PM EDT [facility] BUN, Plasma 19 7 - 21 mg/dL 10/21/2024 1:07 PM EDT [facility] Creatinine, Plasma 0.92 0.70 - 1.20 mg/dL 10/21/2024 1:07 PM EDT [facility] BUN/Creatinine Ratio 21 10/21/2024 1:07 PM EDT [facility] Sodium, Plasma 135(L) 136 - 145 mmol/L 10/21/2024 1:07 PM EDT [facility] Potassium, Plasma 4.5 3.6 - 4.9 mmol/L 10/21/2024 1:07 PM EDT [facility] Chloride, Plasma 98 97 - 107 mmol/L 10/21/2024 1:07 PM EDT [facility] CO2, Plasma 25 22 - 29 mmol/L 10/21/2024 1:07 PM EDT [facility] Anion Gap 12 6 - 16 mmol/L 10/21/2024 1:07 PM EDT [facility] Total Calcium, Plasma 9.7 8.9 - 10.2 mg/dL 10/21/2024 1:07 PM EDT [facility] Total Protein 7.8 6.3 - 7.9 g/dL 10/21/2024 1:07 PM EDT [facility] Albumin, Plasma 3.6 3.5 - 5.2 g/dL 10/21/2024 1:07 PM EDT [facility] AST, Plasma 15 10 - 50 U/L 10/21/2024 1:07 PM EDT [facility] ALT, Plasma 7(L) 10 - 50 U/L 10/21/2024 1:07 PM EDT [facility] Alkaline Phosphatase, Plasma 87 40 - 115 U/L 10/21/2024 1:07 PM EDT [facility] Total Bilirubin, Plasma 0.5 0.2 - 1.1 mg/dL 10/21/2024 1:07 PM EDT [facility] eGFRcr 101.3 mL/min/1.7 3m*2 10/21/2024 1:07 PM EDT [facility] Comment:Reported eGFRcr in m L/min/1.73m2 is based the CKD-EPI 2020 equation that does not use a race coefficient. Blood Venous blood specimen / Unknown Venipuncture / Unknown 10/21/2024 9:26 AM EDT 10/21/2024 9:29 AM EDT Brittney Johnson MD LAB BLOOD ORDERABLE S Final Result [facility] [address] [place] [address] * (ABNORMAL) CBC and Differential (10/21/2024 9:26 AM EDT) WBC Count 6.05 3.70 - 10.30 10*3/uL LAB HEMATOLOGY METHOD 10/21/2024 12:51 PM EDT [facility] RBC Count 4.45(L) 4.60 - 6.10 10*6/uL LAB HEMATOLOGY METHOD 10/21/2024 12:51 PM EDT [facility] HGB 12.3(L) 13.7 - 17.5 g/dL LAB HEMATOLOGY METHOD 10/21/2024 12:51 PM EDT [facility] HCT 38.2(L) 40.0 - 51.0 % LAB HEMATOLOGY METHOD 10/21/2024 12:51 PM EDT [facility] Platelet Count 349 155 - 369 10*3/uL LAB HEMATOLOGY METHOD 10/21/2024 12:51 PM EDT [facility] MCV 86 79 - 98 fL LAB HEMATOLOGY METHOD 10/21/2024 12:51 PM EDT [facility] MCH 27.6 26.0 - 32.0 pg LAB HEMATOLOGY METHOD 10/21/2024 12:51 PM EDT [facility] MCHC 32.2 30.7 - 35.5 g/dL LAB HEMATOLOGY METHOD 10/21/2024 12:51 PM EDT [facility] RDW 13.4 11.5 - 14.5 % LAB HEMATOLOGY METHOD 10/21/2024 12:51 PM EDT [facility] MPV 10.5 8.8 - 12.5 fL LAB HEMATOLOGY METHOD 10/21/2024 12:51 PM EDT [facility] nRBC 0.0 <=0.0 per 100 WBCs LAB HEMATOLOGY METHOD 10/21/2024 12:51 PM EDT [facility] Differential Type Automated LAB HEMATOLOGY METHOD 10/21/2024 12:51 PM EDT [facility] Neutrophils % 65 % LAB HEMATOLOGY METHOD 10/21/2024 12:51 PM EDT [facility] Lymphocytes % 20 % LAB HEMATOLOGY METHOD 10/21/2024 12:51 PM EDT [facility] Monocytes % 11 % LAB HEMATOLOGY METHOD 10/21/2024 12:51 PM EDT [facility] Eosinophils % 3 % LAB HEMATOLOGY METHOD 10/21/2024 12:51 PM EDT [facility] Basophils % 1 % LAB HEMATOLOGY METHOD 10/21/2024 12:51 PM EDT [facility] Immature Granulocytes % 0 % LAB HEMATOLOGY METHOD 10/21/2024 12:51 PM EDT [facility] Neutrophils Absolute 3.93 1.60 - 6.10 10*3/uL LAB HEMATOLOGY METHOD 10/21/2024 12:51 PM EDT [facility] Lymphocytes Absolute 1.22 1.20 - 3.90 10*3/uL LAB HEMATOLOGY METHOD 10/21/2024 12:51 PM EDT [facility] Monocytes Absolute 0.64 0.30 - 0.90 10*3/uL LAB HEMATOLOGY METHOD 10/21/2024 12:51 PM EDT [facility] Eosinophils Absolute 0.18 0.00 - 0.50 10*3/uL LAB HEMATOLOGY METHOD 10/21/2024 12:51 PM EDT [facility] Basophils Absolute 0.06 0.00 - 0.10 10*3/uL LAB HEMATOLOGY METHOD 10/21/2024 12:51 PM EDT [facility] Immature Granulocytes Absolute 0.02 0.00 - 0.06 10*3/uL LAB HEMATOLOGY METHOD 10/21/2024 12:51 PM EDT [facility] Blood Venous blood specimen / Unknown Venipuncture / Unknown 10/21/2024 9:26 AM EDT 10/21/2024 9:29 AM EDT [facility] - 10/21/2024 12:51 PM EDT Therapeutic decision making should be based on absolute values, rather than percentages. us Brittney Johnson MD LAB BLOOD ORDERABLE S Final Result [facility] [address] [place] [address] documented in this encounter Visit Diagnoses Diagnosis Osteomyelitis of thoracic spine (CMS/HCC)- Primary MRSA bacteremia Lumbar back pain Lumbago documented in this encounter Additional Health Concerns Infection Onset Date 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 02/19/2024 C. difficile 10/20/2024 10/20/2024 Assessment Noted Time PHQ-9 Depression Total Score: 0 10/22/19 8:33 AM EDT A fall risk assessment has been complete d for the patient 10/18/2024 2:30 PM EDT A Body Mass Index follow-up plan has been documented for the patient 10/21/2024 9:09 AM EDT documented as of this encounter Care Teams Political Advisor Relationship Specialty Start Date End Date Carson Ibrahim MD [address] [place], [place] [address] [place] [address] PCP - General 11/20/23 Imer Sevilla MD [address] [facility] [address] [place] [address] Consulting Physician Radiation Oncology 02/27/24 Viky Menon MD 800 [facility] [address] [facility] [address] [place] [address] Consulting Physician Medical Oncology 04/21/24 Amelia Freeman, RN Registered Nurse Hematology and Oncology 05/13/24 documented as of this encounter
--- OUTSIDE RECORDS SUMMARY | 2024-10-22 10:15 | XMS_ITS | Encounter Summary ---
Author Organization Healthcare Address [address] [place] [address] Care Team Providers Care Rotary Veneer Machine Operator Name Role Phone Carson Ibrahim MD Primary Care Provider + [phone] Imer Sevilla MD Unavailable Viky Menon MD Unavailable [phone] Amelia Freeman RN Unavailable Unavailable Encounter Details Date Type Department Care Team (Late st Contact Info) Description 10/22/2024 10:15 AM EDT Office Visit [facility] [address] [place] [address] Kelsey Cerda, DMD [address] [place] [address] Edentulism (Primary Dx) Social History [...] drink first t idalia in the morning (EYE-TURNING SANDER OPERATOR) to steady your nerves or to get rid of a hangover? 0 07/22/2024 CAGE Questionnaire Score 0 025 Utilities Answer Date Recorded In the past 12 months has e [employer], gas, oil, or water [employer] threatened to shut off services in your home? No 07/28/2024 Sex and Gender Information Value Date Recorded Sex Assigned at Male 01/06/2024 6:14 AM EDT Legal Sex Male 7:47 PM EDT Gender Identity Male 01/06/2024 6:14 AM EDT Sexual Orientation Not on file documented as of this encounter Last Filed Vital Signs Vital Sign Reading Time Taken Comments Blood Pressure 128/85 10/22/2024 10:09 AM EDT Pulse 63 10/22/2024 10:09 AM EDT Temperature - - Respiratory Rate - - Oxygen Saturation - - Inhaled Oxygen Concentration - - Weight - - Height - - Body Mass Index - - documented in this encounter Miscellaneous Notes * Progress Notes - Kelsey Cerda DMD - 10/22/2024 10:15 AM EDT Pt presents for initial impressions for construction of CD/Cd Alginate impressions taken of max and ru arches. Impressions were scanned and send to lab for baseplates and occlusion rim constriction. NV: Jaw relation records. documented in this encounter Plan of Treatment Upcoming Encounters Date Type Department Care Team (Late st Contact Info) Description 11/08/2024 11:15 AM EDT Office Visit [facility] Adult Dentistry [address] [place] [address] Kelsey Cerda DMD [address] [place] [address] 11/18/2024 10:00 AM EDT Office Visit [facility] [address] [facility] [place] [address] Abel Johnson MD [address] [facility] [address] [place] [address] 11/23/2024 9:15 AM EDT Office Visit [facility] Adult Dentistry [address] [place] [address] Kelsey Cerda, DMD [address] [place] [address] 12/07/2024 11:15 AM EDT Office Visit [facility] Adult [facility]istry [address] [place] [address] Kelsey Cerda, DMD [address] [place] [address] 12/13/2024 8:00 AM EDT Appointment [facility] [address] [place] [phone] 12/13/2024 10:00 AM EDT Office Visit [facility] [address] [facility]nd [place] [phone] Viky Menon MD 800 [facility] [address] [place] [phone] 12/13/2024 1:00 PM EDT Appointment [facility] [address] [id number] [place] [phone] Imer Sevilla MD [address] [facility] [address] [place] [phone] 12/13/2024 2:45 PM EDT Office Visit [facility] [address] [place] [address] Matias Eldridge MD [address] [facility] [address] [place] [address] 12/21/2024 10:15 AM EDT Office Visit [facility] [address] [place] [address] Kelsey Cerda, DMD [address] [place] [address] Scheduled Orders Name Type Priority Associated Diagnoses Orde r Schedule DENTAL LAB Dental Routine Edentulism Ordered: 10/24/2024 documented as of this encounter Procedures Procedure Name Priority Date/Time Associated Diagnosis Comments COMPLETE DENTURE -MANDIBULAR- IN PROCESS Routine 10/22/2024 10:15 AM EDT Edentulism COMPLETE DENTURE - MAXILLARY IN PROCESS Routine 10/22/2024 10:15 AM EDT Edentulism documented in this encounter Visit Diagnoses Diagnosis Edentulism- Primary documented in this encounter Additional Health Concerns Infection Onset Date 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 02/19/2024 C. difficile 10/20/2024 10/20/2024 Assessment Noted Time PHQ-9 Depression Total Score: 0 10/22/19 25 8:33 AM EDT A fall risk assessment has been complete d for the patient 10/18/2024 2:30 PM EDT A Body Mass Index follow-up plan has been documented for the patient 10/24/2024 12:39 PM EDT documented as of this encounter Care Teams Rotary Veneer Machine Operator Relationship Specialty Start Date End Date Carson Ibrahim MD [address] [facility] [address] [place] [address] PCP - General 11/20/23 Imer Sevilla MD [address] [place] [address] Consulting Physician Radiation Oncology 02/27/24 Viky Menon MD [address] [phone] Consulting Physician Medical Oncology 04/21/24 Amelia Freeman, RN Registered Nurse Hematology and Oncology 05/13/24 documented as of this encounter
--- OUTSIDE RECORDS SUMMARY | 2024-10-27 10:42 | XMS_ITS | Encounter Summary ---
Author Organization Healthcare Address [address] [place] [address] Care Team Providers Care Marine Mechanic Name Role Phone Carson Ibrahim MD Primary Care Provider + [phone] Imer Sevilla MD Unavailable Viky Menon MD Unavailable [phone] Amelia Freeman RN Unavailable Unavailable Reason for Visit * Reason Comments Social Work/navigation Follow-up Encounter Details Date Type Department Care Team (Late st Contact Info) Description 09/10/2024 Social Work Psych Oncology [address] [place] [address] Tamar Cruz Social History Tobacco Use Types [...] in a mcc (including now)? No 01/08/2024 PHQ-9 Answer Date [...] any time in the past 12 m [facility], were you homeless or living in [...] drink first t idalia in the morning (EYE-MECHATRONICS TECHNICIAN) to steady your nerves or to [...] Disease Status: Established Patient Clinic Location: [facility] Disease Type: Head & Neck Education Provided: Lodging, Financial Support/Aid Intervention Level: 2 Units (1 unit = 15 minutes): 2 Narrative: PROFESSIONAL SOCCER PLAYER followed up on missed call from pt inquiring of his picker and packer time for his appt today. PROFESSIONAL SOCCER PLAYER followed up with pt to ensure that he had been picked up by medicaid transportation this morning. Pt was appreciative for the call back and informed PROFESSIONAL SOCCER PLAYER that he was on his way. PROFESSIONAL SOCCER PLAYER expressed gladness in this and further informed pt that Familia Holman was able to provide assistance with requested bills. Pt was appreciative for the assistance and denied additional questions or needs at this time. PROFESSIONAL SOCCER PLAYER encouraged pt to follow up should additional needs arise. PROFESSIONAL SOCCER PLAYER remains available ongoing prn. Tamar Cruz CULTURAL HISTORIAN, PROFESSIONAL SOCCER PLAYER [phone] documented in this encounter Plan of Treatment Upcoming Encounters Date Type Department Care Team (Late st Contact Info) Description 11/08/2024 11:15 AM EDT Office Visit [facility] Adult Dentistry [address] [place] [address] Kelsey Cerda, DMD [address] [place] [address] 11/18/2024 10:00 AM EDT Office Visit [facility] [address] [facility] [place] [address] Abel Johnson MD [address] [facility] [address] [place] [address] 11/23/2024 9:15 AM EDT Office Visit [facility] Adult Dentistry [address] [place] [address] Kelsey Cerda, DMD [address] [place] [address] 12/07/2024 11:15 AM EDT Office Visit [facility] Adult Dentistry [address] [place] [address] Kelsey Cerda, DMD [address] [place] [address] 12/13/2024 8:00 AM EDT Appointment [facility] G Radiology [address] [place] [address] 12/13/2024 10:00 AM EDT Office Visit [facility] Res[facility] [address] [place] [address] Viky Menon MD [address] [facility] [address] [place] [address] 12/13/2024 1:00 PM EDT Appointment [facility] CC Radiation [address] [place] [address] Imer Sevilla MD [address] [place] [address] 12/13/2024 2:45 PM EDT Office Visit [facility] Res[facility] [address] [facility], 2nd [place] [address] Matias Eldridge MD [address] [facility] [address] [place] [address] 12/21/2024 10:15 AM EDT Office Visit [place] [facility] [address] [place] [address] Kelsey Cerda, DMD [address] [facility] [address] [place] [address] documented as of this encounter [...] documented as of this encounter Care Teams Marine Mechanic Relationship Specialty Start Date End Date Carson Ibrahim MD [facility] [address] [address] PCP - General 11/20/23 Imer Sevilla MD [address] [facility] [address] [place] [address] Consulting Physician Radiation Oncology 02/27/24 Viky Meonn MD [address] [facility] [address] [place] [address] Consulting Physician Medical Oncology 04/21/24 Lydia, Jeannie, RN Registered Nurse Hematology and Oncology 05/13/24 documented as of this encounter
--- OUTSIDE RECORDS SUMMARY | 2024-10-27 10:42 | XMS_ITS | Encounter Summary ---
Author Organization [facility] [place] Address [address] [place] [address] Care Team Providers Care Custom Studio Coordinator Name Role Phone Carson Ibrahim MD Primary Care Provider + [phone] Imer Sevilla MD Unavailable Viky Menon MD Unavailable [phone] Amelia Freeman RN Unavailable Unavailable Encounter Details [...] in a intermediate (including now)? No 01/08/2024 PHQ-9 Answer Date [...] any time in the past 12 m [facility], were you homeless or [...] drink first t idalia in the morning (EYE-INDUSTRIAL STAFF NURSE) to steady your nerves or to [...] Description 11/08/2024 11:15 AM EDT Office Visit [facility] Adult Dentistry [address] [place] [address] Kelsey Cerda, DMD [address] [facility] [address] [place] [address] 11/18/2024 10:00 AM EDT Office Visit [facility] [address] [place] [address] [place] [address] [place] [address] [address] [place] [address] 11/23/2024 9:15 AM EDT Office Visit [facility] Adult Dentistry [address] [place] [address] Kelsey Cerda, DMD [address] [facility] [address] [place] [address] 12/07/2024 11:15 AM EDT Office Visit [facility] Adult Dentistry [address] [place] [address] Kelsey Cerda, DMD [address] [facility] [address] [place] [address] 12/13/2024 8:00 AM EDT Appointment [facility] G Radiology [address] [place] [address] 12/13/2024 10:00 AM EDT Office Visit [facility] [address] 2nd [place] [address] Viky Menon MD [address] [facility] [address] [place] [address] 12/13/2024 1:00 PM EDT Appointment [facility] CC Radiation [id number] [place] [address] Imer Sevilla MD [address] [facility] [address] [place] [address] 12/13/2024 2:45 PM EDT Office Visit [facility] [address] [facility], 2nd [place] [address] Matias Eldridge MD [address] [facility] 2[address] [place] [address] 12/21/2024 10:15 AM EDT Office Visit [place] [facility] [address] [place] [address] Kelsey Cerda, DMD [address] [facility] [address] [place] [address] documented as of this encounter [...] documented as of this encounter Care Teams Custom Studio Coordinator Relationship Specialty Start Date End Date Carson Ibrahim MD [address] [facility] [address] [place] [address] PCP - General 11/20/23 Imer Sevilla MD [address] [facility] [address] [place] [address] Consulting Physician Radiation Oncology 02/27/24 Viky Menon MD [address] [facility] [address] [facility] [address] [place] [address] Consulting Physician Medical Oncology 04/21/24 Amelia Freeman, RN Registered Nurse Hematology and Oncology 05/13/24 documented as of this encounter
--- OUTSIDE RECORDS SUMMARY | 2024-10-27 10:42 | XMS_ITS | Clinical Summary ---
Author Organization [facility] ([place], [place], [place], [place]) Address [address] [place] [address] Care Team Providers Care Press Set Up Person Name Role Phone Unavailable Primary Care Provider [...] Date Mckay rded Speak language other than Maldivian at home Not on file 11/07/2023 Want [...]
--- OUTSIDE RECORDS SUMMARY | 2024-10-27 10:42 | XMS_ITS | Clinical Summary ---
Author Organization [facility] Address [address] [place] [address] Care Team Providers Care Route Returner Name Role Phone Carson Ibrahim MD Primary Care Provider + [phone] Allergies Active Allergy Reactions Criticality Noted Date Comments Penicillins Rash Low 03/12/2019 A CHILD Medications metFORMIN (GLUCOPHAGE) 500 MG tablet Take 500 mg by mouth 4 (Four) Times a Day. Active lisinopril-hydr ochlorothiazide (PRINZIDE,ZESTO RETIC) 20-25 MG per tablet Take 1 tablet by mouth Daily. Active glimepiride (AMARYL) 4 MG tablet Take 4 mg by mouth Every Morning Before Breakfast. Active HYDROcodone-alexander taminophen (NORCO) 7.5-325 MG per tablet Take 1 tablet by mouth Every 6 (Six) Hours As Needed for pain 20 tablet 03/12/2019 11:29 AM EST 03/12/2019 Active sulfamethoxazol e-trimethoprim (BACTRIM DS,SEPTRA DS) 800-160 MG per tablet Take 1 tablet by mouth 2 (Two) Times a Day. 30 tablet 03/12/2019 11:29 AM EST 03/12/2019 Active phenazopyridine (PYRIDIUM) 200 MG tablet Take 1 tablet by mouth 3 (Three) Times a Day. 30 tablet 03/12/2019 11:29 AM EST 03/12/2019 Active Active Problems No known active problems Social History Tobacco Use Types Packs/Day Years Used Date Smoking Tobacco: Former Cigarettes Q uit: 1993 Smokeless Tobacco: Never Comments:smoked in his teens Alcohol Use Standard Drinks/Week Comments Yes 0 (1 standard drink = 0.6 oz pur e alcohol) occasional AUDIT-C Answer Date Recorded Frequency of Alcohol Consumption Never 03/12/2019 Average Number of Drinks Not on file 019 Frequency of Binge Drinking Not on file 02/22 Abuse Screen Answer Date Recorded Unsafe at Home or Work/School Not on file Feels Threatened by Someone? Not on file 11/2022 Does Anyone Keep You from Co ntacting Others or Doint Things Outside the Home? Not on file 12/30/2022 Physical Sign of Abuse Present Not on file 1 Housing Stability Answer Date Recorded Current Living Arrangements Not on file 11/2022 Potentially Unsafe Housing Conditions Not on ebnny e 12/30/2022 Family and Community Support Answer Preet e Recorded Help with Day-to-Day Activities Not on file 12/30/2022 Lonely or Isolated Not on file 12/30/2022 Employment Answer Date Recorded Do you want help finding or keeping work or a pho[place] b? Not on file 12/30/2022 Disabilities Answer Date Recorded Concentrating, Remembering, or Making Decisions Difficulty Not on file 12/30/2022 Doing Errands Independently Difficulty Not on fi le 12/30/2022 Education Answer Date Recorded Help with school or training? Not on file Preferred Language Not on file 12/30/2022 Sex and Gender Information Value Date Recorded Sex Assigned at Not on file Legal Sex Male 4:06 PM EDT Gender Identity Not on file Sexual Orientation Not on file Last Filed Vital Signs Vital Sign Reading Time Taken Comments Blood Pressure 111/66 03/12/2019 1:00 PM EST Pulse 94 03/12/2019 1:00 PM EST Temperature 36.1 C (97 F) 03/12/2019 10:56 AM EST Respiratory Rate 19 03/12/2019 1:00 PM EST Oxygen Saturation 96% 03/12/2019 1:00 PM EST Inhaled Oxygen Concentration - - Weight 158 kg (349 lb) 03/12/2019 7:44 AM EST Height 174 cm (5' 8.5 ) 03/12/2019 7:44 AM EST Body Mass Index 52.29 03/12/2019 7:44 AM EST Plan of Treatment Health Maintenance Due Date Last Done Comments ANNUAL PHYSICAL 1974 HEPATITIS C SCREENING 1974 TDAP/TD VACCINES (1 - Tdap) 1993 COLOGUARD 2019 COLON CANCER SCREENING 5 YEAR SIGMOIDOSCOPY 2019 COLONOSCOPY [address] CANCER SCREENING 2019 CT COLONOGRAPHY 2019 FECAL OCCULT BLOOD TEST 2019 FIT Testing (1 year) 2019 COVID-19 Vaccine (1 - 2023- season) 2023 Pneumococcal Vaccine 50+ (1 of 1 - PCV) 02/04/2024 ZOSTER VACCINE (1 of 2) 02/04/2024 INFLUENZA VACCINE 12/22/2024 Medical Devices Implanted Type Area Tandem Mill Roller Device Identifier Shelf Expiration Date Model / Serial / Lot Stent Percuflx No Gw 4.8x26 - [id number] Implanted:Qty: 1 on 03/12/2019 by Abrahan Dykes MD at [facility] Stent Left: [employer] YENI 11/24/2021 [id number] / / [id number] Insurance Care Teams Route Returner Relationship Specialty Start Date End Date Carson Ibrahim MD [address] [facility] [address] [place] [address] PCP - General Family Medicine 03/12/19
--- OUTSIDE RECORDS SUMMARY | 2024-10-27 10:42 | XMS_ITS | Patient Health Record ---
Author Organization [facility] Address [address] [facility] 36 [facility] [address] [place] [phone] Care Team Providers Care Canal Boat Operator Name Role Phone Carson Ibrahim Primary Care Provider [phone] Allergies Allergen (clinical drug ingredient) Drug/Non Drug Allergy documented on EMR Reaction Allergy Type Onset Date Status Penicillin Rash Drug Allergy Active Results Component Value Reference Range Notes H-BMP Reviewed date:07/05/2024 03:03:52 PM Interpretation: Performing [...] WBC 5.9 4.8-10.8 K/mm3 Delta: 8.1 on 07/02/24-33 RBC 3.84 4.60-6.20 M/mm3 HGB 10.8 14.1-18.0 [...] Not Detected NotDetected SAPOVIRUS Not Detected NotDetected Glycohemoglobin A1c (in hous e) Reviewed date:10/20/2024 04:06:50 PM Interpretation:5.4 Performing Lab: Notes/Report: 5.4 glycohemoglobin 5.4 5 - 6.5 % P-Culture, Urine Reviewed date:10/15/2024 12:21:19 PM Interpretation:No growth Performing Lab: Notes/Report: Test performed by [employer] [address] [place] [address] , [address], [place] [id number] Calos Chacon MD, [employer] CLIA: [id number] Specimen Source Urine - Void Culture, Urine See Below Final Report : No growth Urinalysis - Inhouse Reviewed date:05/25/2024 02:35:18 PM [...] 11:11:02 AM Interpretation:Negative Performing Lab: Notes/Report: Negative CBC Venipuncture (in house) Reviewed date:07/20/2024 09:38:09 [...] 0.9 Performing Lab: Notes/Report: Test performed by [employer] [address] [place] [address] , [address], [place] [address] Calos Chacon MD, [employer] CLIA: [id number] Sodium 139 135-145 mmol/L Potassium 4.5 3.5-5.3 [...] Growth Performing Lab: Notes/Report: Test performed by [employer] [address] [place] [address] , [address], [place] [address] Calos Chacon MD, [employer] CLIA: [id number] Specimen Source Blood Culture, Blood See Below No Growth at 24 hours No Growth at 5 Days P-TSH reflex to FT4 Reviewed date:07/22/2024 11:07:25 AM Interpretation:Normal Performing Lab: Notes/Report: Test performed by [employer] [address] [place] [address] , [address], [place] [address] Calos Chacon MD, [employer] CLIA: [id number] TSH reflex to FT4 1.59 0.43-5.25 mU/L Urinalysis - Inhouse Reviewed date:10/13/2024 10:22:33 PM Interpretation: Performing Lab: Notes/Report: Color/Clarity Yellow/Clear Leuk 2+ Nitrite Neg Urobili 3.2 Protein Neg pH 5.5 Blood 1+ Sp. Gr. <=1.005 Ketone Neg Bili Neg Gluc Neg Glycohemoglobin A1c (in hous e) Reviewed date:10/13/2024 10:22:21 PM Interpretation:5.4 Performing Lab: Notes/Report: 5.4 glycohemoglobin 5.4% 5 - 6.5 % Urinalysis - Inhouse Reviewed date:10/13/2024 10:22:05 PM Interpretation: Performing Lab: Notes/Report: Color/Clarity Yellow/Clear Leuk 2+ Nitrite Neg Urobili 3.2 Protein Neg pH 5.5 Blood 1+ Sp. Gr. <=1.005 Ketone Neg Bili Neg Gluc Neg Reason For Referral Reason Echo done at Diagnosis 1 HFrEF (heart failure with reduced ejection fraction) (I50.20) [facility]erral [facility] Referring Provider First Name Carson Referring Provider Last Name Patrice Referring Provider [facility] ctice Referred Provider Mildred Martin Referred Provider Specialty Cardiovascul ar Disease General Notes Eliana Najera 2024 01:16:57 PM > faxed to [facility] Scheduling, Eliana Najera 08/06/2024 03:35:45 PM [...] back pain, unspe cified (M54.50) Referral Organization [facility] Referring Provider First Name Carson Referring Provider Last Name Patrice Referring Provider [facility] ctice Referred Provider Jarvis Dasilva Referred Provider Specialty Pain Managem ent General Notes Eliana Najera 2024 11:09:01 AM > faxed to [facility] Pain Management Referral Priority Routine Medications Medication SIG (Take, Route, Fr equency, Duration) Notes Start Date End Date Status Carvedilol 6.25 MG 1 tablet with food O rally Twice a day Active oxyCODONE HCl 10 MG 1 tablet as needed O rally every 6 hrs Active Immunizations Vaccine Route Administration Date Status Comme nts Fluzone Quad (6months&older) IM Intramuscular 01/11/2020 Administered COVID 19 Gurpreet Unknown 06/27/2020 Administered Problems Problem Type SNOMED Code ICD Code Onset Dates Problem Status W/U Status Risk Notes Problem Essential hypertension (20934777) Essential hypertension (I10) Active confirmed Problem Morbid obesity (054264376) Morbid obesity (E66.01) Active confirmed Problem Arthropathy of lumbar facet joint (431797703) Lumbar facet arthropathy (M47.816) Active confirmed Problem Obesity due to excess calories (261057764) Other obesity due to excess calories (E66.09) Active confirmed Problem Mixed hyperlipidemia (771935351) Mixed hyperlipidemia (E78.2) Active confirmed Problem Chronic pain (61632681) Other chronic pain (G89.29) Active confirmed Problem Anemia (002839321) Anemia, unspecified type (D64.9) Active confirmed Problem Type II diabetes mellitus without complication (644568895) Type 2 diabetes mellitus without complication, without long-term current use of insulin (E11.9) Active confirmed Problem Spinal stenosis of lumbar region (23569374) Spinal stenosis of lumbar region without neurogenic claudication (M48.061) Active confirmed Problem Lumbar spinal stenosis (16811326) Lumbar foraminal stenosis (M48.061) Active confirmed Problem Spinal stenosis of lumbar region (08005922) Foraminal stenosis of lumbar region (M48.061) Active confirmed Problem Secondary malignant neoplastic disease (735464489) 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) Active confirmed Problem Systolic heart failure (708310239) HFrEF (heart failure with reduced ejection fraction) (I50.20) Active confirmed Vital Signs Heart Rate 72 /min 10/19/2024 Blood pressure diastolic 70 mm Hg 10/19/2024 Height 69.5 in 10/19/2024 Blood pressure systolic 110 mm Hg 10/19/2024 Weight 187 lbs 10/19/2024 BMI 27.22 kg/m2 10/19/2024 Encounters Encounter Location Date Provider Diagnosis [facility] [address] [facility] [address] [place], [place] [id number] 01/23/2024 Carson Florence 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 C79.89 [facility] [address] [facility] [address] [place], [place] [id number] 05/25/2024 Carson Florence Dysuria R30.0 ; Pyur ia R82.81 ; Heartburn R12 and Type 2 diabetes mellitus without complication, without long-term current use of insulin E11.9 [facility] [address] [facility] [address] [place], [place] [id number] 06/23/2024 Carson Florence Acute bilateral low back pain without sciatica M54.50 and Muscle spasm of back M62.830 [facility] [address] [place] [facility] [address] [place] [id number] 07/19/2024 Carson Florence Bacteremia R78.81 ; Methicillin resistant Staphylococcus aureus infection as the cause of diseases classified elsewhere B95.62 ; Acute UTI N39.0 ; C. difficile colitis A04.72 ; Generalized weakness R53.1 ; Anemia, unspecified type D64.9 and Right-sided low back pain without sciatica, unspecified chronicity M54.50 [facility] [address] [facility] [address] [place] [id number] 08/04/2024 Carson Florence Infection of clavicl e M86.9 ; HFrEF (heart failure with reduced ejection fraction) I50.20 and BMI 29.0-29.9,adult Z68.29 [facility] [address] [facility] [address] [place] [id number] 09/01/2024 Carson Florence HFrEF (heart failure with reduced ejection fraction) I50.20 ; Other chronic pain G89.29 ; Low back pain, unspecified M54.50 ; 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 ; Lumbar foraminal stenosis M48.061 ; Spinal stenosis of lumbar region without neurogenic claudication M48.061 ; Bulging lumbar disc M51.369 and BMI 28.0-28.9,adult Z68.28 [facility] [address] [facility] [address] [place] [id number] 10/13/2024 Carson Florence Encounter for Depart ment 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 [place] license Z02.4 and Type 2 diabetes mellitus without complication, without long-term current use of insulin E11.9 [facility] [address] [facility] [address] [place] [id number] 10/13/2024 Carson Florence Acute UTI N39.0 and Type 2 diabetes mellitus without complication, without long-term current use of insulin E11.9 [facility] 121 [facility] [address] [place] [id number] 10/19/2024 Carson Florence Thoracic discitis M4 6.44 and Pain in thoracic spine M54.6 [facility] [address] [place], [place] [id number] 10/26/2024 Carson Florence [facility] [address] [place], [place] [id number] 01/19/2024 Carson Florence [facility] [address] [place], [place] [id number] 01/20/2024 Carson Florence [facility] [address] [place], [place] [id number] 01/28/2024 Carson Florence [facility] [address] [place], [place] [id number] 02/05/2024 Carson Florence [facility] [address] [place], [place] [id number] 03/04/2024 Carson Florence [facility] [address] [place], [place] [id number] 06/29/2024 Carson Florence [facility] [address] [place], [place] [id number] 07/22/2024 Carson Florence [facility] [address] [place], [place] [id number] 09/09/2024 Carson Florence Assessments Encounter Date Diagnosis (ICD Code) Assessment [...] Recent Echo from and stress test from [facility] reviewed with patient in office today. Patient is asymptomatic at this point. He stopped metoprolol due to bradycardia. He with keep follow up with cardiology in a few weeks 10/13/2024 Type 2 diabetes mellitus without complication, without long-term current use of insulin (ICD-10 - E11.9) 10/13/2024 Encounter for Department 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 [place] license (ICD-10 - Z02.4) 10/13/2024 Acute UTI (ICD-10 - N39.0) 10/19/2024 Pain in thoracic spine (ICD-10 - M54.6) 10/19/2024 Thoracic discitis (ICD-10 - M46.44) Patient has appointment with infectious disease doctor in 2 days 10/13/2024 Type 2 diabetes mellitus without complication, without long-term current use of insulin (ICD-10 - E11.9) 09/01/2024 Low back pain, unspecified (ICD-10 - M54.50) 07/19/2024 Acute UTI (ICD-10 - N39.0) 08/04/2024 BMI 29.0-29.9,adult (ICD-10 - Z68.29) 05/25/2024 Heartburn (ICD-10 - R12) 05/25/2024 Type 2 diabetes mellitus without complication, without long-term current use of insulin (ICD-10 - E11.9) 07/19/2024 C. difficile colitis (ICD-10 - A04.72) 09/01/2024 Degeneration of intervertebral disc of lumbar region with discogenic back pain (ICD-10 - M51.360) 09/01/2024 Lumbar foraminal stenosis (ICD-10 - M48.061) 07/19/2024 Generalized weakness (ICD-10 - R53.1) 09/01/2024 Spinal stenosis of lumbar region without neurogenic claudication (ICD-10 - M48.061) 07/19/2024 Anemia, unspecified type (ICD-10 - D64.9) 07/19/2024 Right-sided low back pain without sciatica, unspecified chronicity (ICD-10 - M54.50) 09/01/2024 Bulging lumbar disc (ICD-10 - M51.369) 09/01/2024 BMI 28.0-28.9,adult (ICD-10 - Z68.28) Plan Of Treatment Next Appt Details Provider Name:Carson riley, 12/02/2024 09:30:00 AM, [address], [place], [place], [id number], Insurance Providers Payer Name Payer Address Payer Phone Subscriber Number Group Number Insured Name Patient Relationship to Insured Coverage Start Date Coverage End Date [employer] [facility] [address] [place], [place] [id number] [phone] [id number] PERRY DANIELS Self - patient is the [...] Carcinom a 10/14/2019 Hospitalization History Reason Date(Month/Year) [facility] - Neck Surgery 10/13- [facility] ER - UTI 11/08/2018 kidney stone surgery
--- OUTSIDE RECORDS SUMMARY | 2024-10-27 10:42 | XMS_ITS | Referral Summary ---
Author Organization [employer] ([place], [place], [place], [place]) Address [address] [place] [address] Care Team Providers Care Weight Loss Sales Consultant Name Role Phone Unavailable Primary Care Provider [...] on file 11/06 Educational Attainment Answer Date Mkcay rded Speak language other than Vietnamese at home Not on file 11/07/2023 Want [...]
--- OUTSIDE RECORDS SUMMARY | 2024-10-27 10:43 | XMS_ITS | Encounter Summary ---
Author Organization Healthcare Address [address] [place] [address] Care Team Providers Care As400 Consultant Name Role Phone Carson Ibrahim MD Primary Care Provider + [phone] Imer Sevilla MD Unavailable Viky Menon MD Unavailable [phone] Amelia Freeman RN Unavailable Unavailable Encounter Details Date Type Department Care Team (Late st Contact Info) Description 06/30/2024 Orders Only External Location [address] [place] [address] Provider, External Social History Tobacco Use Types [...] first t idalia in the morning (EYE-INDUSTRIAL CUSTODIAN) to steady your nerves or to get rid of a hangover? 0 02/16/2024 CAGE Questionnaire Score 0 024 Utilities Answer Date Recorded In the past 12 months has th e [employer], gas, oil, or water company threatened to [...] Description 11/08/2024 11:15 AM EDT Office Visit [facility] [address] [place] [phone] Kelsey Cerda, DMD [address] [facility] [address] [place] [address] 11/18/2024 10:00 AM EDT Office Visit [facility] [address] [place] [address] Abel Johnson MD [address] [facility] [address] [place] [address] 11/23/2024 9:15 AM EDT Office Visit [facility] [address] [place] [address] Kelsey Cerda, DMD [address] [facility] [address] [place] [address] 12/07/2024 11:15 AM EDT Office Visit [facility] [address] [place] [address] Kelsey Cerda, DMD [address] [facility] [address] [place] [address] 12/13/2024 8:00 AM EDT Appointment [facility] [address] [place] [address] 12/13/2024 10:00 AM EDT Office Visit [facility] [address] [place] [address] Viky Menon MD [address] [place] [address] 12/13/2024 1:00 PM EDT Appointment [facility] [address] [facility]. [id number] [place] [address] Imer Sevilla MD [address] [facility] [address] [place] [address] 12/13/2024 2:45 PM EDT Office Visit [facility] [address] [facility], 2nd [place] [address] Matias Eldridge MD [address] [facility] 2[address] [place] [address] 12/21/2024 10:15 AM EDT Office Visit [facility] [address] [place] [address] Kelsey Cerda, DMD [address] [place] [address] documented as of this encounter [...] C. difficile 10/20/2024 10/20/2024 Assessment Noted Time A fall risk assessment has been complete d for the patient 06/17/2024 9:31 AM EDT A Body Mass Index follow-up plan has been documented for the patient 05/13/2024 11:53 AM EST documented as of this encounter Care Teams As400 Consultant Relationship Specialty Start Date End Date Carson Ibrahim MD [address] [facility] [address] [place] [address] PCP - General 11/20/23 Imer Sevilla MD [address] [facility] [address] [place] [address] Consulting Physician Radiation Oncology 02/27/24 Viky Menon MD 800 [facility] [address]ie [facility] [address] [place] [address] Consulting Physician Medical Oncology 04/21/24 Amelia Freeman, RN Registered Nurse Hematology and Oncology 05/13/24 documented as of this encounter
--- OUTSIDE RECORDS SUMMARY | 2024-10-27 10:43 | XMS_ITS | Encounter Summary ---
Author Organization [facility] Address [address] [place] [address] Care Team Providers Care Autocad Electrical Designer Name Role Phone Carson Ibrahim MD Primary Care Provider + [phone] Imer Sevilla MD Unavailable Viky Menon MD Unavailable [phone] Amelia Freeman RN Unavailable Unavailable Encounter Details [...] time in the past 12 m [facility], were you homeless or living in [...] drink first t idalia in the morning (EYE-NETWORK ENGINEERING ADVISOR) to steady your nerves or to [...] 11/08/2024 11:15 AM EDT Office Visit [facility] [address] [place] [address] Kelsey Cerda, DMD [address] [place] [address] 11/18/2024 10:00 AM EDT Office Visit [facility] [address] [facility] [place] [address] Abel Johnson MD [address] [facility] [address] [place] [address] 11/23/2024 9:15 AM EDT Office [facility] [address] [place] [address] Kelsey Cerda, DMD [address] [place] [address] 12/07/2024 11:15 AM EDT Office [facility] [address] [place] [address] Kelsey Cerda, DMD [address] [place] [address] 12/13/2024 8:00 AM EDT Appointment [facility] [address] [place] [address] 12/13/2024 10:00 AM EDT Office Visit [facility] [address] [facility], 2nd [place] [address] Viky Menon MD [address] [facility] [address] [place] [address] 12/13/2024 1:00 PM EDT Appointment [facility] [address] [place] [address] Imer Sevilla MD [address] [facility] [address] [place] [address] 12/13/2024 2:45 PM EDT Office Visit [facility] [address] [facility], [address] [place] [address] Matias Eldridge MD [address] [facility] [address] [place] [address] 12/21/2024 10:15 AM EDT Office Visit [facility] [address] [address] Kelsey Cerda, DMD [address] [facility] [address] [place] [address] documented as of this encounter [...] documented as of this encounter Care Teams Autocad Electrical Designer Relationship Specialty Start Date End Date Carson Ibrahim MD [address] [facility] [address] [place] [address] PCP - General 11/20/23 Imer Sevilla MD 800 [facility] [address] [place] [address] Consulting Physician Radiation Oncology 02/27/24 Viky Menon MD [address] [facility] [address] [facility] [address] [place] [address] Consulting Physician Medical Oncology 04/21/24 Amelia Freeman, RN Registered Nurse Hematology and Oncology 05/13/24 documented as of this encounter
--- OUTSIDE RECORDS SUMMARY | 2024-10-27 10:43 | XMS_ITS | Encounter Summary ---
Author Organization Healthcare Address [address] [place] [address] Care Team Providers Care Hairspring Ii Inspector Name Role Phone Carson Ibrahim MD Primary Care Provider + [phone] Imer Sevilla MD Unavailable Viky Menon MD Unavailable [phone] Amelia Freeman RN Unavailable Unavailable Encounter Details Date Type Department Care Team (Late st Contact Info) Description 09/14/2024 Telephone [facility] [address] [facility], 2nd [place] [address] Matias Eldridge MD 800 [facility] [address] [place] [address] Social History Tobacco Use Types [...] time in the past 12 m [facility], were you homeless or living in a [...] drink first t idalia in the morning (EYE-MEDICAL ADMINISTRATIVE) to steady your nerves or to get rid of a hangover? 0 07/22/2024 CAGE Questionnaire Score 0 025 Utilities Answer Date Recorded In the past 12 months has th e [employer], gas, oil, or water company threatened to [...] a continuation prescription for a wound vac. [phone] ext [phone] documented in this encounter Plan of Treatment Upcoming Encounters Date Type Department Care Team (Late st Contact Info) Description 11/08/2024 11:15 AM EDT Office Visit [facility] [address] [place] [address] Kelsey Cerda, DMD [address] [place] [address] 11/18/2024 10:00 AM EDT Office Visit [facility] [address] [place] [phone] Abel Johnson MD [address] [facility] [address] [place] [address] 11/23/2024 9:15 AM EDT Office Visit [facility] [address] [place] [address] Kelsey Cerda, DMD [address] [place] [address] 12/07/2024 11:15 AM EDT Office Visit [facility] [address] [place] [address] Kelsey Cerda, DMD [address] [facility] [address] [place] [address] 12/13/2024 8:00 AM EDT Appointment [facility] [address] [place] [address] 12/13/2024 10:00 AM EDT Office Visit [facility] [address] [facility], 2nd [place] [address] Viky Menon MD 800 [facility] [address] [place] [address] 12/13/2024 1:00 PM EDT Appointment [facility] [address] [place] [address] Imer Sevilla MD [address] [facility] [address] [place] [address] 12/13/2024 2:45 PM EDT Office Visit [facility] [address] [facility], 2nd [place] [address] Matias Eldridge MD [address] [facility] 2[address] [place] [address] 12/21/2024 10:15 AM EDT Office Visit [facility] [address] [place] [address] Prashant Kelsey Mila, DMD [address] [place] [address] documented as of this encounter [...] documented as of this encounter Care Teams Hairspring Ii Inspector Relationship Specialty Start Date End Date Carson Irbahim MD [address] [place] [address] [place] [address] PCP - General 11/20/23 Imer Sevilla MD 800 [facility] [address] [place] [address] Consulting Physician Radiation Oncology 02/27/24 Viky Menon MD 800 [facility] [address] [place] [address] Consulting Physician Medical Oncology 04/21/24 Amelia Freeman, RN Registered Nurse Hematology and Oncology 05/13/24 documented as of this encounter
--- OUTSIDE RECORDS SUMMARY | 2024-10-27 10:43 | XMS_ITS | Encounter Summary ---
Author Organization Healthcare Address [address] [place] [address] Care Team Providers Care Animal Husbandry Manager Name Role Phone Carson Ibrahim MD Primary Care Provider + [phone] Imer Sevilla MD Unavailable Viky Menon MD Unavailable [phone] Amelia Freeman RN Unavailable Unavailable Encounter Details Date Type Department Care Team (Late st Contact Info) Description 06/29/2024 Orders Only External Location [address] [place] [address] Mara Schofield, DO [address] [place] [address] Social History Tobacco Use Types [...] drink first t idalia in the morning (EYE-BUSINESS AFFAIRS MANAGER) to steady your nerves or to [...] Description 11/08/2024 11:15 AM EDT Office Visit [facility] [address] [place] [address] Kelsey Cerda, DMD [address] [place] [address] 11/18/2024 10:00 AM EDT Office Visit [facility] [address] [place] [address] Abel Johnson MD [address] [facility] [address] [place] [address] 11/23/2024 9:15 AM EDT Office Visit [facility] [address] [place] [address] Kelsey Cerda, DMD [address] [facility] [address] [place] [address] 12/07/2024 11:15 AM EDT Office Visit [facility] [address] [place] [address] Kelsey Cerda, DMD [address] [facility] [address] [place] [address] 12/13/2024 8:00 AM EDT Appointment [facility] [address] [place] [address] 12/13/2024 10:00 AM EDT Office Visit [facility] [address] [place] [address] Viky Menon MD [address] [facility] [address] [place] [address] 12/13/2024 1:00 PM EDT Appointment [facility] [address] [facility] [id number] [place] [address] Imer Sevilla MD [address] [facility] [address] [place] [address] 12/13/2024 2:45 PM EDT Office Visit [facility] [address] [facility]nd [place] [address] Matias Eldridge MD [address] [facility] [address] [place] [phone] 12/21/2024 10:15 AM EDT Office Visit [facility] [address] [place] [address] Kelsey Cerda, DMD [address] [facility] [address] [place] [address] documented as of this encounter [...] documented as of this encounter Care Teams Animal Husbandry Manager Relationship Specialty Start Date End Date Carson Ibrahim MD [address] [facility] [address] [place] [address] PCP - General 11/20/23 Imer Sevilla MD [address] [facility] [address] [place] [phone] Consulting Physician Radiation Oncology 02/27/24 Viky Menon MD 800 [facility] [address] [place] [phone] Consulting Physician Medical Oncology 04/21/24 Amelia Freeman, RN Registered Nurse Hematology and Oncology 05/13/24 documented as of this encounter
--- OUTSIDE RECORDS SUMMARY | 2024-10-27 10:43 | XMS_ITS ---
Author Organization [facility] Address [address] [place] [address] Care Team Providers Care Digital Media Buyer Name Role Phone Carson Ibrahim MD Primary Care Provider + [phone] Imer Sevilla MD Unavailable Viky Menon MD Unavailable [phone] Amelia Freeman RN Unavailable Unavailable Active Problems Problem Noted Date Diagnosed Date Arthropathy of lumbar facet joint 10/20/2024 Chronic systolic (congestive) heart failure 07/23 Osteomyelitis, unspecified 08/12/2024 Pyogenic arthritis, unspecified 08/12/2024 Localized enlarged lymph nodes 08/10/2024 Abnormal cytological finding s in specimens from other organs, systems and tissues 07/26/2024 Arthritis due to other bacteria, left shoulder 0 07/26/2024 Cardiac arrhythmia, unspecified 07/26/2024 Nonrheumatic mitral (valve) insufficiency 2024 Acute osteomyelitis of left clavicle 07/22/2024 Bacteremia 07/22/2024 Enterocolitis due to Clostri dium difficile, not specified as recurrent 07/22/2024 Unspecified open wound, right lower leg, initial encounter 07/22/2024 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 07/21/2024 Other nonspecific abnormal finding of lung field 07/21/2024 Anemia 07/19/2024 Weakness 07/19/2024 Sensorineural hearing loss, bilateral 07/14/2024 Tinnitus, left ear 07/14/2024 Lumbar foraminal stenosis 07/02/2024 Atelectasis 06/30/2024 Calculus of kidney 06/29/2024 Torticollis 06/17/2024 Disturbances of salivary secretion 06/10/2024 Other foreign object in resp iratory tract, part unspecified in causing asphyxiation, initial encounter 06/10/2024 Dysuria 05/25/2024 Heartburn 05/25/2024 Pyuria 05/25/2024 Oral mucositis (ulcerative), unspecified 025 Insomnia, unspecified 04/15/2024 Malignant neoplasm of external lower lip 024 Secondary malignant neoplasm lymph nodes of head, 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 CINV (chemotherapy-induced nausea and vomiting) 02/18/2024 Severe obesity (BMI 35.0-39.9) with comorbidity 02/17/2024 Severe protein-calorie malnutrition 02/17/2024 Leukocytes in urine 02/15/2024 Acute kidney injury 02/11/2024 Nephrotic syndrome 02/11/2024 Dermatitis, unspecified 02/11/2024 Spontaneous ecchymoses 02/11/2024 Dysphagia, oropharyngeal 02/02/2024 Hyperlipidemia 02/02/2024 Right flank pain 02/02/2024 Vomiting 02/02/2024 Cancer related pain 02/02/2024 Adverse effect of glucocorti coids and synthetic analogues, initial encounter 01/12/2024 Other malaise 01/12/2024 Hypertension 01/07/2024 Overview (01/07/2024): SBP goal < [...] from OR TF ongoing per dietary recs RETAIL ROUTE SUPERVISOR consulted GERD (gastroesophageal reflux disease) Overview (01/07/2024): [...] Signed by Viky Menon MD on 02/02/2024 Atherosclerosis of cachil dehe ar teries of extremities with intermittent claudication, bilateral legs 12/18/2023 Localized swelling, mass and lump, neck 12/10/19 24 Abnormal findings on diagnos tic imaging of skull and head, not elsewhere classified 11/07/2023 Current Treatment and Therapy Plans (ONC) Med Onc Outpatient Electrolyte Replacement Protocol* Plan Start Date: 05/13/2024 Plan Provider:Viky Menon MD Linked Problems Malignant neoplasm of supervisor wheel shop al lower lip Treatment Medications No medications [...]
--- OUTSIDE RECORDS SUMMARY | 2024-10-27 10:43 | XMS_ITS | Encounter Summary ---
Author Organization Healthcare Address [address] [place] [address] Care Team Providers Care Fitter Mechanic Name Role Phone Carson Ibrahim MD Primary Care Provider + [phone] Imer Sevilla MD Unavailable Viky Menon MD Unavailable [phone] Amelia Freeman RN Unavailable Unavailable Reason for Visit * Reason Comments Resource Navigation Encounter Details Date Type Department Care Team (Late st Contact Info) Description 09/13/2024 Social Work Psych Oncology [address] [place] [address] Tamar Cruz Social History Tobacco Use Types [...] any time in the past 12 m [facility], were you homeless or [...] drink first t idalia in the morning (EYE-VALVE STEAMER) to steady your nerves or to get [...] MyChart Disease Status: Established Patient Clinic Location: [facility] Disease Type: Head & Neck Services Provided: Financial Support Community Referrals: Gina Holman Intervention Level: 3 Units (1 unit = 15 minutes): 2 Narrative: CALL CENTER PROFESSIONAL received email from pt requesting financial assistance via lianet holman for an additional bill this month. CALL CENTER PROFESSIONAL submitted requested bill to lianet holman and will follow up as updates are received.There were no additional questions or needs at this time. CALL CENTER PROFESSIONAL remains available ongoing prn. Tamar Cruz CREATIVE RECRUITER, CALL CENTER PROFESSIONAL [phone] documented in this encounter Plan of Treatment Upcoming Encounters Date Type Department Care Team (Late st Contact Info) Description 11/08/2024 11:15 AM EDT Office Visit [facility] [address] [place] [address] Kelsey Cerda, DMD [address] [place] [address] 11/18/2024 10:00 AM EDT Office Visit [facility] [address] [place] [address] Abel Johnosn MD [address] [facility] [address] [place] [address] 11/23/2024 9:15 AM EDT Office Visit [facility] [address] [place] [address] Kelsey Cerda, DMD [address] [place] [address] 12/07/2024 11:15 AM EDT Office Visit [facility] [address] [place] [address] Kelsey Cerda, DMD [address] [place] [address] 12/13/2024 8:00 AM EDT Appointment [facility] [address] [place] [phone] 12/13/2024 10:00 AM EDT Office Visit [facility] [address] [place] [id number] Viky Menon MD [address] [facility] [address] [place] [address] 12/13/2024 1:00 PM EDT Appointment [facility] [id number] [place] [phone] Imer Sevilla MD [address] [place] [address] 12/13/2024 2:45 PM EDT Office Visit [facility] [address] [place] [address] Matias Eldridge MD [address] [facility] [address] [place] [address], [place] [address] 12/21/2024 10:15 AM EDT Office Visit [facility] [address] [place] [address] [place] Kelsey Mila, DMD [address] [place] [address] documented as of this encounter [...] documented as of this encounter Care Teams Fitter Mechanic Relationship Specialty Start Date End Date Carson Ibrahim MD [address] [address] PCP - General 11/20/23 Imer Sevilla MD [address] [facility] [address] [place] [address] Consulting Physician Radiation Oncology 02/27/24 Viky Menon MD [address] [place] [address] Consulting Physician Medical Oncology 04/21/24 Amelia Freeman, RN Registered Nurse Hematology and Oncology 05/13/24 documented as of this encounter
--- OUTSIDE RECORDS SUMMARY | 2024-10-27 10:43 | XMS_ITS | Clinical Summary ---
Author Organization [facility] Address [address] [place] [address] Care Team Providers Care Spice Mixer Name Role Phone Carson Ibrahim MD Primary Care Provider + [phone] Imer Sevilla MD Unavailable Viky Menon MD Unavailable [phone] Amelia Freeman RN Unavailable Unavailable Allergies Active Allergy Reactions Criticality Noted Date Comments Penicillins Rash,Swelling High 03/12/2019 A CHILD Medications ondansetron ODT (Zofran-ODT) 8 MG disintegrating tablet Take 1 tablet (8 mg) by mouth every 8 hours as needed for nausea or vomiting. 30 tablet 3 05/13/19 25 Active Additional Information Patient not taking.Reported on 10/21/2024 cyclobenzaprine (Flexeril) 5 MG tablet Take 1 [...] crush or chew. 90 tablet 3 07/29/19 Active Additional Information Patient not taking.Reported on 10/21/2024 diclofenac (Voltaren) 1 % topical gel Place on the skin 2 times a day. Apply as directed to the chest at the area of pain 50 g 2 08/13/19 Active Additional Information Patient not taking.Reported on 10/21/2024 metroNIDAZOLE (Flagyl) 500 MG tablet 07/06/19 Active sodium chloride 0.9 % solution 07/06/19 Active vancomycin (Vancocin) 10 g reconstituted solution 07/06/19 Active polyethylene glycol (Miralax) 17 GM/SCOOP powder Take 17 g by mouth daily as needed (constipation). 510 g 3 09/03/19 Active carvedilol (Coreg) 6.25 MG tablet every 12 hours. Active oxyCODONE (Roxicodone) 10 MG immediate release tablet Take 1-2 tablets by mouth every 4 hours as needed for severe pain (g89.3). 180 tablet 10/23/19 25 Active fentaNYL (Duragesic) 50 MCG/HR Place 1 patch on the skin every 3rd day over 72 hours. 10 patch 10/23/19 25 025 Active gabapentin (Neurontin) 600 MG tablet Take 1 tablet by mouth 3 times a day. 90 tablet 2 10/23/19 25 Active oxyCODONE (Roxicodone) 10 MG immediate release tablet Take 1-2 tablets by mouth every 4 hours as needed for severe pain (g89.3). 180 tablet 09/03/19 25 025 Discontin ued(Reord er) oxyCODONE (Roxicodone) 10 MG immediate release tablet Take 1-2 tablets by mouth every 4 hours as needed for severe pain (g89.3). 180 tablet 10/01/19 25 025 Discontin ued(Reord er) gabapentin (Neurontin) 600 MG tablet Take 1 tablet by mouth 3 times a day. 90 tablet 2 10/23/19 25 025 Discontin ued(Reord er) oxyCODONE (Roxicodone) 10 MG immediate release tablet Take 1-2 tablets by mouth every 4 hours as needed for severe pain (g89.3). 180 tablet 10/23/19 25 025 Discontin ued(Reord er) fentaNYL (Duragesic) 50 MCG/HR Place 1 patch on the skin every 3rd day over 72 hours. 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 07/21/2024 Other [...] from OR TF ongoing per dietary recs [employer] consulted GERD (gastroesophageal reflux disease) Overview (01/07/2024): [...] Viky Menon MD on 02/02/2024 Atherosclerosis of minto ar teries of extremities with intermittent claudication, bilateral legs 12/18/2023 Localized swelling, mass and lump, neck 12/10/19 Abnormal findings on diagnos tic imaging of skull and head, not elsewhere classified 11/07/2023 Resolved Problems Problem Noted Date Diagnosed Date Resolved Date Wound infection after surgery 02/17/2024 02/23/2024 Morbid obesity 01/07/2024 01/07/2024 UTI (urinary tract infection) 01/07/2024 01/07/2024 Type 2 diabetes mellitus 01/07/2024 High blood pressure 01/01/2024 01/07/20 24 Encounters Date Type Department Care Team Description 10/22/2024 10:15 AM EDT Office Visit [facility] [address] [place] [address] Kelsey Cerda, DMD Edentulism (Primary Dx) 10/22/2024 Telephone [facility] [address] [place] [phone] Nabil Gaitan, PharmD Prior-authorization /insurance Verification 10/22/2024 Travel 10/22/2024 Telephone [facility] [address] [address] Viky Menon MD 10/22/2024 Orders Only [facility] [address] [facility] [place] [address] Viky Menon MD 10/21/2024 8:30 AM EDT Office Visit [address] [address] Emil Johnson MD Osteomyelitis of thoracic spine ([facility]/HCC) (Primary Dx); MRSA bacteremia; Lumbar back pain 10/21/2024 Telephone [facility] [address] [facility] [place] [address] Viky Menon MD 10/21/[address] [address] Emil Johnson MD 10/21/[address] [address] Emil Johnson MD 10/21/2024 Travel 10/19/2024 Social Work Psych Oncology [address] [place] [address] Julieta Price 10/18/2024 2:45 PM EDT Office Visit [facility] [address] [facility] [address] [place] [address] Matias Eldridge MD Osteomyelitis of spine ([facility]/HCC) (Primary Dx); Squamous cell carcinoma, lip; Malignant neoplasm of external lower lip; Dysphagia, oropharyngeal 10/18/[address] [address] Emil Johnson MD 10/18/2024 Travel 10/12/2024 Telephone [facility] [address] [facility]. [address] [place] [address] Edith Prater, RN CT SCAN 10/12/2024 Social Work Psych Oncology [address] [place] [address] Tamar Cruz 10/11/2024 11:04 AM EDT - 10/11/2024 11:59 PM EDT Hospital Encounter [facility] [address] [place] [address] Squamous cell carcinoma, lip; Malignant neoplasm of external lower lip; Acute osteomyelitis of left clavicle (CMS/HCC); Squamous cell carcinoma of neck; Secondary malignant neoplasm lymph nodes of head, face and neck (CMS/HCC) Discharge Disposition: Home or Self Care 10/11/2024 Travel 10/08/2024 Telephone [facility] [address] [address] Matias Eldridge MD 10/06/2024 11:45 AM EDT Office Visit [facility] [address] [address] Matias Eldridge MD Acute osteomyelitis of left clavicle (CMS/HCC) (Primary Dx); Squamous cell carcinoma, lip; Malignant neoplasm of external lower lip; Dysphagia, oropharyngeal; Squamous cell carcinoma of neck; Secondary malignant neoplasm lymph nodes of head, face and neck (CMS/HCC) 10/06/2024 Travel 10/04/2024 Social Work Psych Oncology [address] [place] [address] Cruz, Tamar L 09/30/2024 Refill [facility] [address] [address] Viky Menon MD 09/23/2024 1:45 PM EDT Evaluation [facility] [address] [address] Kelsey Cerda, DMD Edentulism (Primary Dx) 09/23/2024 Travel 09/20/2024 Social Work Psych Oncology [address] [place] [address] Cruz, Tamar L 09/14/2024 Telephone [facility] [address] [address] Matias Eldridge MD 09/13/2024 Social Work Psych Oncology [address] [place] [address] Cruz, Tamar L 09/10/2024 9:13 AM EDT - 09/10/2024 11:59 PM EDT Hospital Encounter [facility] [address] [phone] Imer Sevilla MD Secondary malignant neoplasm lymph nodes of head, face and neck (CMS/HCC) (Primary Dx) Discharge Disposition: Still a Patient 09/10/2024 Travel 09/10/2024 Social Work Psych Oncology [address] [place] [phone] Cruz, Tamar L 09/08/2024 10:45 AM EDT Office Visit [facility] 800 [facility], [address]nd [place] [phone] Matias Eldridge MD Squamous cell carcinoma, lip (Primary Dx); Malignant neoplasm of external lower lip; Dysphagia, oropharyngeal 09/08/2024 Travel 09/07/2024 Social Work Psych Oncology [address] [place] [address] Cruz, Tamar L 09/02/2024 9:30 AM EDT Office Visit [facility] [address] [place] [address] Emil Johnson MD MRSA bacteremia (Primary Dx); Acute osteomyelitis of left clavicle (CMS/HCC) 09/02/2024 Refill [facility] [address] [facility] [place] [phone] Viky Menon MD 09/02/2024 Travel 08/31/2024 Social Work Psych Oncology [address] [place] [address] Cruz, Tamar L 08/23/2024 Social Work Psych Oncology [address] [place] [address] Cruz, Tamar L 08/12/2024 8:53 AM EDT - 08/12/2024 11:59 PM EDT Hospital Encounter [facility] [address] [phone] Imer Sevilla MD 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) Discharge Disposition: Still a Patient 08/12/2024 8:30 AM EDT Office Visit [facility] [address] [place] [address] Emil Johnson MD Acute osteomyelitis of left clavicle (CMS/HCC) (Primary Dx); Squamous cell carcinoma, lip; MRSA bacteremia; Bacteremia; Other acute osteomyelitis, other site (CMS/HCC) 08/12/2024 Travel 08/10/2024 11:48 AM EDT - 08/10/2024 11:59 PM EDT Hospital Encounter [facility] PET Scan [address] [place] [phone] Discharge Disposition: Home or Self Care 08/10/2024 11:48 AM EDT - 08/10/2024 11:59 PM EDT Hospital Encounter [facility] PET Scan [address] [place] [address] Squamous cell carcinoma of neck; Malignant neoplasm of external lower lip Discharge Disposition: Home or Self Care 08/10/2024 Travel 08/09/2024 Telephone [facility] [address] [facility]. [id number] [place] [address] Imer Sevilla MD 08/09/2024 Social Work Psych Oncology [address] [place] [address] Cruz, Tamar L 08/04/2024 Social Work Psych Oncology [address] [place] [address] Cruz, Tamar L 08/04/2024 Refill [facility] [address] [facility] [place] [address] Viky Menon MD 07/30/2024 External Documentation Encounter [facility] [address] [place] [address] Tanya Hamilton, RN 07/29/2024 Social Work Psych Oncology [address] [place] [address] Cruz, Tamar L 07/29/2024 Clinical Support [facility] [address] [place] [address] Joe Sepulveda, PharmD 07/22/2024 12:28 PM EDT - 07/28/2024 4:19 PM EDT Hospital Encounter [facility] Inpatient [address] [place] [address] Rashad Avalos MD Dweik, MD Judah Esteban Roger L, MD Wimberly, Katherine E, MD Acute osteomyelitis of sternum (CMS/HCC) (Primary Dx); Squamous cell carcinoma, lip; Secondary malignant neoplasm lymph nodes of head, face and neck (CMS/HCC); Acute osteomyelitis of left clavicle (CMS/HCC); HFrEF (heart failure with reduced ejection fraction) (CMS/HCC) Discharge Disposition: Home-Health Care c from Last 3 Months Immunizations Immunization Administration [...] in a penitentiary (including now)? No 01/08/2024 PHQ-9 Answer Date [...] were you homeless or living in a penitentiary (including now)? No 07/28/2024 CAGE ASSESSMENT Answer [...] first t idalia in the morning (EYE-BUSINESS PERFORMANCE ADVISOR) to steady your nerves or to [...] Pulse 63 10/22/2024 10:09 AM EDT Temperature 36.7 C (98 F) 10/21/2024 8:33 AM EDT Respiratory Rate 20 10/21/2024 8:33 AM EDT Oxygen Saturation 96% 10/21/2024 8:33 AM EDT Inhaled Oxygen Concentration - - Weight 86.5 kg (190 lb 11.2 oz) 10/21/2024 8:33 AM EDT Height 177.8 cm (5' 10 ) 10/21/2024 8:33 AM EDT Body Mass Index 27.36 10/21/2024 8:33 AM EDT Plan of Treatment Upcoming Encounters Date Type Department Care Team (Late st Contact Info) Description 11/08/2024 11:15 AM EDT Office Visit [facility] [address] [place] [phone] Kelsey Cerda, DMD [address] [place] [phone] 11/18/2024 10:00 AM EDT Office Visit [facility] [address] [place] [address] Abel Johnson MD [address] [facility] [address] [place] [address] 11/23/2024 9:15 AM EDT Office Visit [facility] [address] [place] [address] Kelsey Cerda, DMD [address] [place] [address] 12/07/2024 11:15 AM EDT Office Visit [facility] [address] [place] [address] Kelsey Cerda, DMD [address] [place] [address] 12/13/2024 8:00 AM EDT Appointment [facility] [address] [place] [phone] 12/13/2024 10:00 AM EDT Office Visit [facility] [address] [facility] [place] [phone] Viky Menon MD [address] [facility] [address] [place] [address] 12/13/2024 1:00 PM EDT Appointment [facility] [id number] [place] [phone] Imer Sevilla MD [address] [facility] [address] [place] [phone] 12/13/2024 2:45 PM EDT Office Visit [facility] [address] [place] [phone] Matias Eldridge MD [address] [facility] [address] [place] [phone] 12/21/2024 10:15 AM EDT Office Visit [facility] [address] [place] [address] Kelsey Cerda, DMD [address] [place] [address] Health Maintenance Due Date Last Done Comments [...] 2019 Sigmoidoscopy 2019 [facility]-Colorectal Cancer Screening 2019 [id number] Vaccine (2 - Gurpreet risk series) 07/25/2020 06/27/2020 [facility]-Influenza Vaccine (#1) 2024 01/11/2020 [facility]-Diabetes: Hemoglobin A1C 01/19/2025 07/22/2024, 01/07/2024 [facility]- SDOH Screenings 01/28/2025 [facility]-Adult SDOH Screenings 01/28/2025 07/28/2024 Dental Oral Exam 03/27/2025 09/23/2024 [facility]-Depression Screening 10/21/2025 10/21/2024, 0703/2024 [facility]-HIV Screening Completed 01/16/2024 [facility]-Hepatitis C Screening Completed 01/16/2024 [facility]-Obesity Intervention Completed 025, 10/21/2024, 09/08/2024, Additional history exists HPV Vaccines Aged Out [...] this topic Medical Devices Implanted Type Area Carbonation Tester Device Identifier Shelf Expiration Date Model / Serial / Lot Model Anatomical Mandible White - [id number] Implanted:Qty: 1 on 01/06/2024 by Jyothi Vega MD at [facility]01/05/2025 [id number] / / Plate Ti Pspc Matrixmand Ang Recon 7x23h/2mm Lt - [id number] Implanted:Qty: 1 on 01/06/2024 by Jyothi Vega MD at [facility]01/05/2025 [id number] / / Screw 2.0mm Matrixmandible St 8mm - [id number] Implanted:Qty: 3 on 01/06/2024 by Jyothi Vega MD at [facility]01/05/2025 [id number] .[id number] / / Screw 2.0mm Matrixmandible St 6mm - [id number] Implanted:Qty: 2 on 01/06/2024 by Jyothi Vega MD at [facility]01/05/2025 [id number] .[id number] / / Screw 2.4mm Matrixmandible St 8mm - [id number] Implanted:Qty: 2 on 01/06/2024 by Jyothi Vega MD at [facility]01/05/2025 [id number] .[id number] / / Screw 2.4mm Matrixmandible St 10mm - [id number] Implanted:Qty: 2 on 01/06/2024 by Jyothi Vega MD at [facility]01/05/2025 [id number] .[id number] / / Screw 2.4mm Matrixmandible St 12mm - [id number] Implanted:Qty: 2 on 01/06/2024 by Jyothi Vega MD at [facility]01/05/2025 [id number] .[id number] / / Screw 2.4mm Matrixmandible St 14mm - [id number] Implanted:Qty: 2 on 01/06/2024 by Jyothi Vega MD at [facility]-[id number] 01/05/[id number] .01 / / Procedures Procedure Name Priority Date/Time Associated Diagnosis Comments COMPLETE DENTURE -MANDIBULAR- IN PROCESS Routine 10/22/2024 10:15 AM EDT Edentulism COMPLETE DENTURE - MAXILLARY IN PROCESS Routine 10/22/2024 10:15 AM EDT Edentulism CBC WITH AUTO DIFFERENTIAL Routine 10/21/2024 9:26 AM EDT Osteomyelitis of thoracic spine (CMS/HCC) MRSA bacteremia COMPREHENSIVE METABOLIC PANEL, PLASMA Routine 10/21/2024 9:26 AM EDT Osteomyelitis of thoracic spine (CMS/HCC) MRSA bacteremia C-REACTIVE PROTEIN, PLASMA Routine 10/21/2024 9:26 AM EDT Osteomyelitis of thoracic spine (CMS/HCC) MRSA bacteremia MR THORACIC SPINE W AND WO IV CONTRAST Routine 10/11/2024 12:42 PM EDT Squamous cell carcinoma, 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 of left clavicle (CMS/HCC) 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 WBC Count 6.05 3.70 - 10.30 10*3/uL LAB HEMATOLOGY METHOD 10/21/2024 12:51 PM EDT [facility] RBC Count 4.45(L) 4.60 - 6.10 10*6/uL LAB HEMATOLOGY METHOD 10/21/2024 12:51 PM EDT [facility] HGB 12.3(L) 13.7 - 17.5 g/dL LAB HEMATOLOGY METHOD 10/21/2024 12:51 PM EDT [facility] HCT 38.2(L) 40.0 - 51.0 % LAB HEMATOLOGY METHOD 10/21/2024 12:51 PM EDT [facility] Platelet Count 349 155 - 369 10*3/uL LAB HEMATOLOGY METHOD 10/21/2024 12:51 PM EDT [facility] MCV 86 79 - 98 fL LAB HEMATOLOGY METHOD 10/21/2024 12:51 PM EDT [facility] MCH 27.6 26.0 - 32.0 pg LAB HEMATOLOGY METHOD 10/21/2024 12:51 PM EDT [facility] MCHC 32.2 30.7 - 35.5 g/dL LAB HEMATOLOGY METHOD 10/21/2024 12:51 PM EDT [facility] RDW 13.4 11.5 - 14.5 % LAB HEMATOLOGY METHOD 10/21/2024 12:51 PM EDT [facility] MPV 10.5 8.8 - 12.5 fL LAB HEMATOLOGY METHOD 10/21/2024 12:51 PM EDT [facility] nRBC 0.0 <=0.0 per 100 WBCs LAB HEMATOLOGY METHOD 10/21/2024 12:51 PM EDT [facility] Differential Type Automated LAB HEMATOLOGY METHOD 10/21/2024 12:51 PM EDT [facility] Neutrophils % 65 % LAB HEMATOLOGY METHOD 10/21/2024 12:51 PM EDT [facility] Lymphocytes % 20 % LAB HEMATOLOGY METHOD 10/21/2024 12:51 PM EDT [facility] Monocytes % 11 % LAB HEMATOLOGY METHOD 10/21/2024 12:51 PM EDT [facility] Eosinophils % 3 % LAB HEMATOLOGY METHOD 10/21/2024 12:51 PM EDT [facility] Basophils % 1 % LAB HEMATOLOGY METHOD 10/21/2024 12:51 PM EDT [facility] Immature Granulocytes % 0 % LAB HEMATOLOGY METHOD 10/21/2024 12:51 PM EDT [facility] Neutrophils Absolute 3.93 1.60 - 6.10 10*3/uL LAB HEMATOLOGY METHOD 10/21/2024 12:51 PM EDT [facility] Lymphocytes Absolute 1.22 1.20 - 3.90 10*3/uL LAB HEMATOLOGY METHOD 10/21/2024 12:51 PM EDT [facility] Monocytes Absolute 0.64 0.30 - 0.90 10*3/uL LAB HEMATOLOGY METHOD 10/21/2024 12:51 PM EDT [facility] Eosinophils Absolute 0.18 0.00 - 0.50 10*3/uL LAB HEMATOLOGY METHOD 10/21/2024 12:51 PM EDT [facility] Basophils Absolute 0.06 0.00 - 0.10 10*3/uL LAB HEMATOLOGY METHOD 10/21/2024 12:51 PM EDT [facility] Immature Granulocytes Absolute 0.02 0.00 - 0.06 10*3/uL LAB HEMATOLOGY METHOD 10/21/2024 12:51 PM EDT [facility] Blood Venous blood specimen / Unknown Venipuncture / Unknown 10/21/2024 9:26 AM EDT 10/21/2024 9:29 AM EDT [facility] - 10/21/2024 12:51 PM EDT Therapeutic decision making should be based on absolute values, rather than percentages. Abel Johnson MD LAB BLOOD ORDERABLE S Final Result [facility] [address] [place] [address] * (ABNORMAL) C-reactive protein (10/21/2024 9:26 AM EDT) Only the most recent of6 resultswithin the time period is included. Pathologist [facility] CRP, Plasma 36.2(H) <=8.0 mg/L 10/21/2024 1:07 PM EDT [facility] Blood Venous blood specimen / Unknown Venipuncture / Unknown 10/21/2024 9:26 AM EDT 10/21/2024 9:29 AM EDT Narrative [facility] - 10/21/2024 1:07 PM EDT This CRP test is appropriate for assessment of infection, systemic inflammation and/or tissue injury. To assess cardiovascular disease risk order high sensitivity CRP (CRPH). Abel Johnson MD LAB BLOOD ORDERABLE S Final Result [facility] [address] [place] [address] * (ABNORMAL) Comprehensive Metabolic Panel, Plasma (10/21/2024 9:26 AM EDT) Only the most recent of2 resultswithin the time period is included. [facility] [address] [facility] Glucose, Plasma 95 74 - 99 mg/dL 10/21/2024 1:07 PM EDT [facility] BUN, Plasma 19 7 - 21 mg/dL 10/21/2024 1:07 PM EDT [facility] Creatinine, Plasma 0.92 0.70 - 1.20 mg/dL 10/21/2024 1:07 PM EDT [facility] BUN/Creatinine Ratio 21 10/21/2024 1:07 PM EDT [facility] Sodium, Plasma 135(L) 136 - 145 mmol/L 10/21/2024 1:07 PM EDT [facility] Potassium, Plasma 4.5 3.6 - 4.9 mmol/L 10/21/2024 1:07 PM EDT [facility] Chloride, Plasma 98 97 - 107 mmol/L 10/21/2024 1:07 PM EDT [facility] CO2, Plasma 25 22 - 29 mmol/L 10/21/2024 1:07 PM EDT [facility] Anion Gap 12 6 - 16 mmol/L 10/21/2024 1:07 PM EDT [facility] Total Calcium, Plasma 9.7 8.9 - 10.2 mg/dL 10/21/2024 1:07 PM EDT [facility] Total Protein 7.8 6.3 - 7.9 g/dL 10/21/2024 1:07 PM EDT [facility] Albumin, Plasma 3.6 3.5 - 5.2 g/dL 10/21/2024 1:07 PM EDT [facility] AST, Plasma 15 10 - 50 U/L 10/21/2024 1:07 PM EDT [facility] ALT, Plasma 7(L) 10 - 50 U/L 10/21/2024 1:07 PM EDT [facility] Alkaline Phosphatase, Plasma 87 40 - 115 U/L 10/21/2024 1:07 PM EDT [facility] Total Bilirubin, Plasma 0.5 0.2 - 1.1 mg/dL 10/21/2024 1:07 PM EDT [facility] eGFRcr 101.3 mL/min/1.7 3m*2 10/21/2024 1:07 PM EDT [facility] Comment:Reported eGFRcr in m L/min/1.73m2 is based the CKD-EPI 2020 equation that does not use a race coefficient. Blood Venous blood specimen / Unknown Venipuncture / Unknown 10/21/2024 9:26 AM EDT 10/21/2024 9:29 AM EDT us Abel Johnson MD LAB BLOOD ORDERABLE S Final Result [facility] [address] [place] [address] * MR Thoracic Spine w and wo [...] COMMUNICATION: Report sent to Dr. Salcedo via [employer] at 9:05 AM on October 15.. Drafted [...] is seen on axial 12/06. No superior or inferior epidural expansion beyond [...] T12 and with localized epidural phlegmon about [id number] level. No discrete abscess. Secondary focal kyphosis. CRITICAL RESULT: No. COMMUNICATION: Report sent to Dr. Salcedo via [employer] at 9:05 AM on October 15.. Drafted by Roberto Flores on 10/15/2024 8:33 AM Final report signed by Roberto Flores on 10/15/2024 9:03 AM us Matias Eldridge MD IMG MRI PROCEDURES Final Resul t * PICC Removal (Clinic-Performed) (09/02/2024 9:05 AM [...] BP meds today. Patient ambulated independently. Result [facility] Abel Johnson MD IN CLINIC/BEDSIDE O RDERABLES Final Result * Creatinine, Plasma (08/30/2024) Only the most recent of4 resultswithin the time period is included. External Creatinine Blood 0.71 mg/dL Blood Venous blood specimen / Unknown 08/30/2024 Result [facility] Provider LAB BLOOD ORDERABLES Neda l Result * Urea Nitrogen, Plasma (08/30/2024) Only the most recent of4 resultswithin the time period is included. External BUN 15 Blood Venous blood specimen / Unknown 08/30/2024 Result [facility] Provider LAB BLOOD ORDERABLES Neda l Result * CK (08/30/2024) Only the most recent of5 resultswithin the time period is included. External Creatine Kinase 63 39 - 308 U/L Blood Venous blood specimen / Unknown 08/30/2024 Result [facility] Provider LAB BLOOD ORDERABLES Neda l Result * Hepatic Function Panel (08/30/2024) Only the most recent of4 resultswithin the time period is included. External Alkaline Phosphatase 78 External Bilirubin Total 0.9 mg/dL External ALT (SGPT) 14 External AST (SGOT) 18 Blood Venous blood specimen / Unknown 08/30/2024 us Historical Provider LAB BLOOD ORDERABLES Neda zaragoza Result * PET/CT FDG Skull Base To [...] scanner: Siemens Biograph 40 mCT. PET/CT acquisition: [id number], plus magnification (zoomed) neck. Standardized uptake value (SUV): Corrected for body weight only. CT: Low-dose, [id number], without intravenous contrast. TOTAL DLP (Dose Length [...] scanner: Siemens Biograph 40 mCT. PET/CT acquisition: Sweafr-ss-glc-thighs, plus magnification (zoomed)neck. Standardized uptake value (SUV): Corrected for body weight only. CT: Low-dose, [id number], without intravenous contrast. TOTAL DLP (Dose Length [...] 11:38 AM EDT) Only the most recent of7 resultswithin the time period is included. POCT Glucose 123(H) 74 - 99 mg/dL 07/28/2024 11:42 AM EDT [facility] Comment:Accuracy of a glucos e result [...] for testing. Comment 07/28/2024 11:42 AM EDT [facility] Sld Educational Aide ID Gaye Hodges 07/28/2024 11:42 AM EDT [facility] Device ID [id number] 07/28/2024 11:42 AM EDT [facility] Specimen Type POC Capillary 07/28/2024 11:42 AM EDT [facility] Blood Capillary blood specimen / Unknown 07/28/2024 11:38 AM EDT 07/28/2024 11:42 AM EDT us Jennifer Vallejo MD LAB POINT OF CAR E TEST DOCKED DEVICE UNSOLICITED RESULTS Final Result [facility] [address] [place] [address] * PICC SINGLE LUMEN (SMARTFORM LINK) (07/28/2024 10:31 AM EDT) Narrative Garcia Lan RN - 07/28/2024 10:31 AM EDT Garcia Lan RN 07/28/2024 10:34 AM Insert PICC line Date/Time: 07/28/2024 10:31 AM Performed by: Garcia Lan RN Authorized by: Jennifer Vallejo MD [place] Protocol: Written consent obtained?: Yes Risks and [...] infection Patient position: Supine Catheter Lot #: [id number] Catheter secretary to the vice president: [employer] Catheter placed: Single lumen Catheter size: 4 [...] - 320 U/L 07/28/2024 4:39 AM EDT [facility] Blood Venous blood specimen / Unknown Venipuncture / Unknown 07/28/2024 3:55 AM EDT 07/28/2024 4:06 AM EDT Jennifer Vallejo MD LAB BLOOD ORDERABLES Fin al Result [facility] [address] [place] [address] * Basic metabolic panel (07/28/2024 3:55 AM EDT) Pathologist [facility] Glucose, Plasma 89 74 - 99 mg/dL 07/28/2024 4:39 AM EDT [facility] BUN, Plasma 9 7 - 21 mg/dL 07/28/2024 4:39 AM EDT [facility] Creatinine, Plasma 0.71 0.70 - 1.20 mg/dL 07/28/2024 4:39 AM EDT [facility] BUN/Creatinine Ratio 13 07/28/2024 4:39 AM EDT [facility] Sodium, Plasma 137 136 - 145 mmol/L 07/28/2024 4:39 AM EDT [facility] Potassium, Plasma 3.8 3.6 - 4.9 mmol/L 07/28/2024 4:39 AM EDT [facility] Chloride, Plasma 102 97 - 107 mmol/L 07/28/2024 4:39 AM EDT [facility] CO2, Plasma 26 22 - 29 mmol/L 07/28/2024 4:39 AM EDT [facility] Anion Gap 9 6 - 16 mmol/L 07/28/2024 4:39 AM EDT [facility] Total Calcium, Plasma 9.7 8.9 - 10.2 mg/dL 07/28/2024 4:39 AM EDT [facility] eGFRcr 111.8 mL/min/1.7 3m*2 07/28/2024 4:39 AM EDT [facility] Comment:Reported eGFRcr in m L/min/1.73m2 is based the CKD-EPI 2020 equation that does not use a race coefficient. Blood Venous blood specimen / Unknown Venipuncture / Unknown 07/28/2024 3:55 AM EDT 07/28/2024 4:06 AM EDT us Jennifer Vallejo MD LAB BLOOD ORDERABLES Fin al Result Performing Organization Address [facility]/ZIP Co de Phone Number [facility] [address] [place] [address] * Hemoglobin A1c (07/22/2024 12:25 PM EDT) Hemoglobin A1c 5.3 <5.7 % 07/22/2024 7:12 PM EDT [facility] Blood Venous blood specimen / Unknown Venipuncture / Unknown 07/22/2024 12:25 PM EDT 07/22/2024 12:27 PM EDT Narrative [facility] - 07/22/2024 7:12 PM EDT HA1C Interpretive Data: Diagnosis of Diabetes: Diabetic > or = 6.5% Pre-diabetic 5.7 to 6.4% Non-diabetic < or = 5.6% Glycemic Targets for Type I and Type II Diabetics: Non- Adults <7.0% Adults <6.0% Children and Adolescents <7.5% Source: [place] [employer]. Standards of medical care in diabetes,2017. Diabetes Care.2017:40 (suppl 1):S1-S135. us Reji Daly MD LAB BLOOD ORDERABLES Final Resu lt Performing Organization Address [facility]/ZIP Co de Phone Number [facility] [address] [place] [address] * ED HIV 1/2 Antibody/Antigen Screen w/Reflex to HIV 1/2 Differentiation (01/16/2024 1:23 AM EDT) HIV 1 & 2 Antibody/Antigen Screen Non Reactive Non Reactive 01/16/2024 2:23 AM EDT [facility] Comment:Screening for HIV 1 & 2 antibodies, and P24 antigen is NONREACTIVE. No confirmatory testing is required. Blood Venous blood specimen / Unknown Venipuncture / Unknown 01/16/2024 1:23 AM EDT 01/16/2024 1:42 AM EDT Leon Bob MD LAB BLOOD ORDERABLES Final Re sult Performing Organization Address City/[facility] Co de Phone Number [facility] [address] [place] [address] * Hepatitis C Antibody - ED (01/16/2024 1:23 AM EDT) Hepatitis C Antibody Negative Negative 01/16/2024 2:23 AM EDT [facility] Blood Venous blood specimen / Unknown Venipuncture / Unknown 01/16/2024 1:23 AM EDT 01/16/2024 1:42 AM EDT Leon Bob MD LAB BLOOD ORDERABLES Final Re sult Performing Organization Address [facility] Co de Phone Number [facility] [address] [place] [address] from Last 3 Months or Most Recently Relevant to Health Maintenance Additional Health Concerns Infection Onset Date Last Indicated 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 02/19/2024 C. difficile 10/20/2024 10/20/2024 Insurance [employer] [facility] MEDICAID [facility] MEDICAID DENTAL Advance Directives * Full [...] Patient has decision-making capacity? Yes Care Teams Spice Mixer Relationship Specialty Start Date End Date Carson Ibrahim MD [address] [facility] [address] [place] [address] PCP - General 11/20/23 Imer Sevilla MD 800 [facility] [address] [place] [phone] Consulting Physician Radiation Oncology 02/27/24 Viky Menon MD [address] [facility] [address] [place] [address] Consulting Physician Medical Oncology 04/21/24 Amelia Freeman, RN Registered Nurse Hematology and Oncology 05/13/24
--- OUTSIDE RECORDS SUMMARY | 2024-10-27 10:43 | XMS_ITS | Encounter Summary ---
Author Organization Healthcare Address [address] [place] [address] Care Team Providers Care Maternal Fetal Physician Name Role Phone Carson Ibrahim MD Primary Care Provider + [phone] Imer Sevilla MD Unavailable Viky Menon MD Unavailable [phone] Amelia Freeman RN Unavailable Unavailable Reason for Visit * Reason Comments Resource Navigation Encounter Details Date Type Department Care Team (Late st Contact Info) Description 09/07/2024 Social Work Psych Oncology [address] [place] [address] Tamar Cruz Social History Tobacco Use Types [...] drink first t idalia in the morning (EYE-DESKTOP ANALYST) to steady your nerves or to [...] Disease Status: Established Patient Clinic Location: [facility] Disease Type: Head & Neck Services Provided: Transportation Assistance Education Provided: Transportation, SSDI/SSI, Financial Support/Aid Community Referrals: Medicaid Transportation Program, [employer] Intervention Level: 3 Units (1 unit = 15 minutes): 2 Narrative: BEHAVIORAL HEALTH RN received call from pt requesting transportation assistance for upcoming appt. Pt disclosed thathe had an appt for 09/23 to see dentistry and would need medicaid transportation. BEHAVIORAL HEALTH RN was able to scheduled transportation for 09/23 with 11:30 AM picker and sorter load and unload time (confirmation [id number]). BEHAVIORAL HEALTH RN relayed this information to the pt. Pt was appreciative for the assisitance. Pt disclosed that he recently was told he had heart failure. Pt stated that he planned to inform his provider of this during his appt tomorrow. BEHAVIORAL HEALTH RN encouraged pt to talk to his provider for additional guidance on how this may affect his care. Pt disclosed due to this dx he will not be able to return to work and has filed for SSDI. Pt stated he filed approximately 2 months ago and has yet to hear of his approval status. BEHAVIORAL HEALTH RN informed pt that sometimes individuals are denied and encouraged pt to appeal this if needed. BEHAVIORAL HEALTH RN encouraged pt to follow up should any documents be needed regarding his care. Pt was understanding and agreed to follow up as needed. Pt expressed that he was hopeful to get to go back to work and expressed sadness over not being able to. BEHAVIORAL HEALTH RN discussed prioritizing his health and care at this time. BEHAVIORAL HEALTH RN additionally highlighted some positive aspects in that he will be discussing dentures during his upcoming dental appt. Pt expressed gladness in this and was hopeful he could get them. Pt worried if his insurance would cover this. BEHAVIORAL HEALTH RN encouraged pt to work with his providers regarding the orders for his dentalcare. BEHAVIORAL HEALTH RN additionally educated pt of [facility] that he might be eligible for that could assist with dental care and dentures if needed. Pt was appreciative for the information. Pt lastly inquired offinancial assistance for bills until he is approved for SSDI. BEHAVIORAL HEALTH RN discussed with pt additional meos way referral and encouraged him to email bills he is needing assistance with. Pt emailed current bills to BEHAVIORAL HEALTH RN. BEHAVIORAL HEALTH RN was able to submit SW referral on pt behalf and BEHAVIORAL HEALTH RN committed to following up with updates as they are received. Pt was appreciative for the assistance and denied additional needs at this time. BEHAVIORAL HEALTH RN encouraged pt to follow up should needs or questions arise. BEHAVIORAL HEALTH RN remains available ongoing prn. Electronically Signed by: Tamar Cruz - 09/07/2024 - 4:49 PM documented in this encounter Plan of Treatment Upcoming Encounters Date Type Department Care Team (Late st Contact Info) Description 11/08/2024 11:15 AM EDT Office Visit [facility] [address] [place] [address] Kelsey Cerda, DMD [address] [place] [address] 11/18/2024 10:00 AM EDT Office Visit [facility] [address] [place] [address] Abel Johnson MD [address] [facility] [address] [place] [address] 11/23/2024 9:15 AM EDT Office Visit [facility] [address] [place] [address] Kelsey Cerda, DMD [address] [place] [address] 12/07/2024 11:15 AM EDT Office Visit [facility] [address] [place] [address] Kelsey Cerda, DMD [address] [place] [address] 12/13/2024 8:00 AM EDT Appointment [facility] [address] [place] [phone] 12/13/2024 10:00 AM EDT Office Visit [facility] [address] [facility] [place] [address] Viky Menon MD [address] [facility] [address] [place] [address] 12/13/2024 1:00 PM EDT Appointment [facility] [id number] [place] [address] Imer Sevilla MD [address] [facility] [address] [place] [address] 12/13/2024 2:45 PM EDT Office Visit [facility] [address] [facility], 2nd [place] [address] Matias Eldridge MD [address] [facility] [address] [place] [address] 12/21/2024 10:15 AM EDT Office Visit [facility] [address] [place] [address] Kelsey Cerda, DMD [address] [place] [address] documented as of this encounter [...] documented as of this encounter Care Teams Maternal Fetal Physician Relationship Specialty Start Date End Date Carson Ibrahim MD [address] [place] [address] PCP - General 11/20/23 Imer Sevilla MD 800 [facility] [address] [place] [address] Consulting Physician Radiation Oncology 02/27/24 Viky Menon MD [address] [facility] [address] [place] [address] Consulting Physician Medical Oncology 04/21/24 Amelia Freeman, RN Registered Nurse Hematology and Oncology 05/13/24 documented as of this encounter
--- OUTSIDE RECORDS SUMMARY | 2024-10-27 10:43 | XMS_ITS | Encounter Summary ---
Author Organization Healthcare Address [address] [place] [address] Care Team Providers Care Waste Salvager Name Role Phone Carson Ibrahim MD Primary Care Provider + [phone] Imer Sevilla MD Unavailable Viky Menon MD Unavailable [phone] Amelia Freeman RN Unavailable Unavailable Reason for Visit * Reason Comments Resource Navigation Encounter Details Date Type Department Care Team (Late st Contact Info) Description 08/31/2024 Social Work Psych Oncology [address] [place] [address] Tamar Cruz Social History Tobacco Use Types [...] a nursing home (including now)? No 01/08/2024 Housing Stability [...] any time in the past 12 m [facility], were you homeless or [...] drink first t idalia in the morning (EYE-BOTTLE LABEL INSPECTOR) to steady your nerves or to [...] Call Disease Status: Established Patient Clinic Location: [facility] Disease Type: Head & Neck Services Provided: Transportation Assistance Education Provided: Transportation Community Referrals: Medicaid Transportation Program Intervention Level: 3 Units (1 unit = 15 minutes): 2 Narrative: TURF AND GROUNDS SUPERVISOR received call from pt stating that he had an appt scheduled for 09/10 and is in need of transportation assistance for this date. TURF AND GROUNDS SUPERVISOR was able to schedule medicaid transportation for 09/10 with 8AM corn picker time (confirmation [id number]). TURF AND GROUNDS SUPERVISOR informed pt of confirmation and corn picker time. Pt was appreciative for the assistance and denied additional questions or needs at this time. TURF AND GROUNDS SUPERVISOR remains available ongoing prn. Tamar Cruz ADJUSTMENT CLERK, TURF AND GROUNDS SUPERVISOR [phone] documented in this encounter Plan of Treatment Upcoming Encounters Date Type Department Care Team (Late st Contact Info) Description 11/08/2024 11:15 AM EDT Office Visit [facility] [address] [place] [address] Kelsey Cerda, DMD [address] [place] [address] 11/18/2024 10:00 AM EDT Office Visit [facility] [address] [place] [address] Abel Johnson MD [address] [facility] [address] [place] [address] 11/23/2024 9:15 AM EDT Office Visit [facility] Adult [facility] [address] [place] [address] Kelsey Cerda, DMD [address] [place] [address] 12/07/2024 11:15 AM EDT Office Visit [facility] Adult [facility] [address] [place] [address] Kelsey Cerda, DMD [address] [place] [address] 12/13/2024 8:00 AM EDT Appointment [facility] [address] [place] [address] 12/13/2024 10:00 AM EDT Office Visit [facility] [address] [facility], [address] [place] [address] Viky Menon MD [address] [facility] [address] [place] [address] 12/13/2024 1:00 PM EDT Appointment [facility] [id number] [place] [address] Imer Sevilla MD [address] [place] [address] 12/13/2024 2:45 PM EDT Office Visit [facility] [address] [place] [address] Matias Eldridge MD [address] [facility] [address] [place] [address] 12/21/2024 10:15 AM EDT Office Visit [facility] [address] [place] [address] Kelsey Cerda, DMD [address] [place] [address] documented as of this encounter [...] documented as of this encounter Care Teams Waste Salvager Relationship Specialty Start Date End Date Carson Ibrahim MD [address] [facility] [address] [place] [address] PCP - General 11/20/23 Imer Sevilla MD [address] [facility] [address] [place] [address] Consulting Physician Radiation Oncology 02/27/24 Viky Menon MD [address] [facility] [address] [place] [address] Consulting Physician Medical Oncology 04/21/24 Amelia Freeman, RN Registered Nurse Hematology and Oncology 05/13/24 documented as of this encounter
--- OUTSIDE RECORDS SUMMARY | 2024-10-27 10:43 | XMS_ITS | Encounter Summary ---
Author Organization [facility] Address [address] [place] [address] Care Team Providers Care Property Claims Manager Name Role Phone Carson Ibrahim MD Primary Care Provider + [phone] Imer Sevilla MD Unavailable Viky Menon MD Unavailable [phone] Amelia Freeman RN Unavailable Unavailable Encounter Details [...] place to sleep or slept in a mcfp (including now)? No 01/08/2024 PHQ-9 Answer Date [...] were you homeless or living in a mcfp (including now)? No 07/28/2024 CAGE ASSESSMENT Answer [...] drink first t idalia in the morning (EYE-BEAM DYER) to steady your nerves or to get [...] Description 11/08/2024 11:15 AM EDT Office Visit [facility] Adult Dentistry [address] [place] [address] Kelsey Cerda, DMD [address] [facility] [address] [place] [address] 11/18/2024 10:00 AM EDT Office Visit [facility] [address] [place] [address] [place] [address] [place] [address] [address] [place] [address] 11/23/2024 9:15 AM EDT Office Visit [facility] Adult [facility] [address] [place] [address] Kelsey Cerda, DMD [address] [facility] [address] [place] [address] 12/07/2024 11:15 AM EDT Office Visit [facility] Adult [facility] [address] [place] [address] Kelsey Cerda, DMD [address] [facility] [address] [place] [address] 12/13/2024 8:00 AM EDT Appointment [facility] [address] [place] [address] 12/13/2024 10:00 AM EDT Office Visit [facility] [address]nd [place] [address] Viky Menon MD [address] [facility] [address] [place] [address] 12/13/2024 1:00 PM EDT Appointment [facility] [id number] [place] [address] Imer Sevilla MD [address] [facility] [address] [place] [address] 12/13/2024 2:45 PM EDT Office Visit [facility] [address] [facility], 2nd [place] [address] Matias Eldridge MD [address] [facility] [address] [place] [address] 12/21/2024 10:15 AM EDT Office Visit [place] [facility] [address] [place] [address] Kelsey Cerda, DMD [address] [facility] [address] [place] [address] documented as of this encounter [...] documented as of this encounter Care Teams Property Claims Manager Relationship Specialty Start Date End Date Carson Ibrahim MD [address] [facility] [address] [place] [address] PCP - General 11/20/23 Imer Sevilla MD [address] [facility] [address] [place] [address] Consulting Physician Radiation Oncology 02/27/24 Viky Menon MD [address] [facility] [address] [facility] [address] [place] [address] Consulting Physician Medical Oncology 04/21/24 Amelia Freeman, RN Registered Nurse Hematology and Oncology 05/13/24 documented as of this encounter
--- OUTSIDE RECORDS SUMMARY | 2024-10-27 10:43 | XMS_ITS | Encounter Summary ---
Author Organization Healthcare Address [address] [place] [address] Care Team Providers Care Form Presser Name Role Phone Carson Ibrahim MD Primary Care Provider [phone] Imer Sevilla MD Unavailable Viky Menon MD Unavailable [phone] Amelia Freeman RN Unavailable Unavailable Encounter Details Date Type Department Care Team (Late st Contact Info) Description 07/05/2024 Orders Only External Location [address] [place] [address] Carson Ibrahim MD [address] [facility] [address] [place] [address] Social History Tobacco Use Types [...] first t idalia in the morning (EYE-MANAGER CULTURE) to steady your nerves or to get [...] Description 11/08/2024 11:15 AM EDT Office Visit [facility] Adult Dentistry [address] [place] [address] Kelsey Cerda, DMD [address] [place] [address] 11/18/2024 10:00 AM EDT Office Visit [facility] [address] [place] [address] Abel Johnson MD [address] [facility] [address] [place] [address] 11/23/2024 9:15 AM EDT Office Visit [facility] Adult [facility] [address] [place] [address] Kelsey Cerda, DMD [address] [facility] [address] [place] [address] 12/07/2024 11:15 AM EDT Office Visit [facility] Adult [facility] [address] [place] [address] Kelsey Cerda, DMD [address] [facility] [address] [place] [address] 12/13/2024 8:00 AM EDT Appointment [facility] [address] [place] [address] 12/13/2024 10:00 AM EDT Office Visit [facility] [address]nd [place] [address] Viky Menon MD 800 [facility] [address] [place] [address] 12/13/2024 1:00 PM EDT Appointment [facility] Radiation [address] [id number] [place] [address] Imer Sevilla MD [address] [facility] [address] [place] [address] 12/13/2024 2:45 PM EDT Office Visit [facility] [address] [facility], [address]nd [place] [address] Matias Eldridge MD [address] [facility] [address] [place] [address] 12/21/2024 10:15 AM EDT Office Visit [place] [facility] [address] [place] [address] Kelsey Cerda, DMD [address] [facility] [address] [place] [address] documented as of this encounter [...] documented as of this encounter Care Teams Form Presser Relationship Specialty Start Date End Date Carson Ibrahim MD [address] [facility] [address] [place] [address] PCP - General 11/20/23 Imer Sevilla MD [address] [facility] [address] [place] [address] Consulting Physician Radiation Oncology 02/27/24 Viky Menon MD 800 [facility] [address] [facility] [address] [place] [address] Consulting Physician Medical Oncology 04/21/24 Amelia Freeman, RN Registered Nurse Hematology and Oncology 05/13/24 documented as of this encounter
--- OUTSIDE RECORDS SUMMARY | 2024-10-27 10:43 | XMS_ITS | Encounter Summary ---
Author Organization Healthcare Address [address] [id number] Care Team Providers Care Production Operations Inspector Name Role Phone Carson Ibrahim MD Primary Care Provider + [phone] Imer Sevilla MD Unavailable Viky Menon MD Unavailable [phone] Amelia Freeman RN Unavailable Unavailable Encounter Details Date Type Department Care Team (Late st Contact Info) Description 09/02/2024 Refill Pav [facility] Head, Neck & Respiratory [address] [facility], 2nd [place] [address] Viky Menon MD 800 [facility] 134 [place] [address] Social History Tobacco Use Types [...] any time in the past 12 m [facility], were you homeless or [...] drink first t idalia in the morning (EYE-PRODUCTION ENGINEER) to steady your nerves or to get rid of a hangover? 0 07/22/2024 CAGE Questionnaire Score 0 025 Utilities Answer Date Recorded In the past 12 months has th e [employer], gas, oil, or water [employer] threatened to shut off services in your [...] and optimal time of day to reach caller:[phone] Note: Please do not reply to this [...] [facility] [address] [place] [address] Kelsey Cerda, DMD [address] [place] [address] 11/18/2024 10:00 AM EDT Office Visit [facility] [address] [facility] [place] [address] Abel Johnson MD [facility] [facility] [address] [place] [address] 11/23/2024 9:15 AM EDT Office Visit [facility] [address] [place] [address] Kelsey Cerda, DMD [address] [facility] [address] [place] [address] 12/07/2024 11:15 AM EDT Office Visit [facility] [address] [place] [address] Kelsey Cerda, DMD [address] [facility] [address] [place] [address] 12/13/2024 8:00 AM EDT Appointment PAV G Radiology [address] [place] [address] 12/13/2024 10:00 AM EDT Office Visit Pav [facility] Head, Neck & Respiratory [address] 2nd [place] [address] Viky Menon MD [address] [facility] [address] [place] [address] 12/13/2024 1:00 PM EDT Appointment PAV CC Radiation [address] [id number] [place] [address] Imer Sevilla MD [address] [facility] [address] [place] [address] 12/13/2024 2:45 PM EDT Office Visit [facility] Head, Neck & Respiratory [address] [facility], 2nd [place] [address] Matias Eldridge MD [address] [facility] 2nd [place] [address] 12/21/2024 10:15 AM EDT Office Visit [facility] [address] [place] [address] Kelsey Cerda, DMD [address] [facility] [address] [place] [address] documented as of this encounter [...] documented as of this encounter Care Teams Production Operations Inspector Relationship Specialty Start Date End Date Carson Ibrahim MD [address] [place] [address] PCP - General 11/20/23 Imer Sevilla MD 800 [facility] [address] [place] [address] Consulting Physician Radiation Oncology 02/27/24 Viky Menon MD [address] [facility] [address] [place] [address] Consulting Physician Medical Oncology 04/21/24 Amelia Freeman RN Registered Nurse Hematology and Oncology 05/13/24 documented as of this encounter
--- OUTSIDE RECORDS SUMMARY | 2024-10-27 10:43 | XMS_ITS | Encounter Summary ---
Author Organization [facility] Address [address] [place] [address] Care Team Providers Care Fitness Technician Name Role Phone Carson Ibrahim MD Primary Care Provider + [phone] Imer Sevilla MD Unavailable Viky Menon MD Unavailable [phone] Amelia Freeman RN Unavailable Unavailable Encounter Details [...] in the past 12 m [facility], were you homeless or living in a [...] drink first t idalia in the morning (EYE-SUPPORT GROUP MANAGER) to steady your nerves or to [...] Description 11/08/2024 11:15 AM EDT Office Visit [facility] [address] 2[address] [place] [address] Kelsey Cerda, DMD [address] [facility] [address] [place] [address] 11/18/2024 10:00 AM EDT Office Visit [facility] [address] [place] [address] [place] [address] [place] [address] 100 [place] [address] 11/23/2024 9:15 AM EDT Office Visit [facility] [address] [place] [address] Kelsey Cerda, DMD [address] [facility] [address] [place] [address] 12/07/2024 11:15 AM EDT Office Visit [facility] [address] 2nd [place] [address] Kelsey Cerda, DMD [address] [facility] [address] [place] [address] 12/13/2024 8:00 AM EDT Appointment PAV G Radiology [address] [place] [address] 12/13/2024 10:00 AM EDT Office Visit Pav [facility] Head, Neck & Respiratory [address], 2nd [place] [address] Viky Menon MD 800 [facility] [address] [place] [address] 12/13/2024 1:00 PM EDT Appointment PAV CC Radiation [id number] [place] [address] Imer Sevilla MD 800 [facility] [address] [place] [address] 12/13/2024 2:45 PM EDT Office Visit Pav [facility] Head, Neck & Respiratory 800 [facility], 2nd [place] [address] Matias Eldridge MD 800 [facility] 2nd [place] [address] 12/21/2024 10:15 AM EDT Office Visit [facility] [address] [place] [address] Kelsey Cerda, DMD [address] [facility] [address] [place] [address] documented as of this encounter [...] documented as of this encounter Care Teams Fitness Technician Relationship Specialty Start Date End Date Carson Ibrahim MD 1210 [facility] [address] [place] [address] PCP - General 11/20/23 Imer Sevilla MD 800 [facility] [address] [place] [address] Consulting Physician Radiation Oncology 02/27/24 Viky Menon MD 800 [facility] Liz Kacie [facility] 134 [place] [address] Consulting Physician Medical Oncology 04/21/24 Amelia Freeman, RN Registered Nurse Hematology and Oncology 05/13/24 documented as of this encounter
--- OUTSIDE RECORDS SUMMARY | 2024-10-27 10:43 | XMS_ITS | Encounter Summary ---
Author Organization Healthcare Address [address] [place] [address] Care Team Providers Care Creative Services Director Name Role Phone Carson Ibrahim MD Primary Care Provider + [phone] Imer Sevilla MD Unavailable Viky Menon MD Unavailable [phone] Amelia Freeman RN Unavailable Unavailable Reason for Visit * Reason Comments Resource Navigation Encounter Details Date Type Department Care Team (Late st Contact Info) Description 09/20/2024 Social Work Psych Oncology [address] [place] [address] Tamar Cruz Social History Tobacco Use Types [...] time in the past 12 m [facility], were you homeless or living [...] drink first t idalia in the morning (EYE-PRODUCT SAFETY AND STANDARDS ENGINEER) to steady your nerves or to [...] Disease Status: Established Patient Clinic Location: [facility] Disease Type: Head & Neck Services Provided: Transportation Assistance Education Provided: Transportation, Financial Support/Aid Community Referrals: Medicaid Transportation Program Intervention Level: 3 Units (1 unit = 15 minutes): 2 Narrative: CUSTOM HOME INSTALLER received call from pt stating he had an appt added on for 10/06 and is in need of transportation. CUSTOM HOME INSTALLER expressed understanding and committed to following up with pt once transportation is confirmed. Pt additionally inquired if Familia Holman was able to assist with most recent bill. CUSTOM HOME INSTALLER committed to following up for updates to determine if they were able to assist. Pt was appreciative and denied additional questions or needs at this time. CUSTOM HOME INSTALLER remains available ongoing prn. Tamar Cruz [employer] SOUNDINGS GROUP LEADER, CUSTOM HOME INSTALLER [phone] * Progress Notes - Tamar Cruz - 09/20/2024 11:30 AM EDT Encounter Type: Phone Call Disease Status: Established Patient Clinic Location: [facility] Disease Type: Head & Neck Services Provided: Transportation Assistance Education Provided: Transportation, Financial Support/Aid Community Referrals: Medicaid Transportation Program Intervention Level: 3 Units (1 unit = 15 minutes): 2 Narrative: Pt was confirmed for transportation on 10/06 with 945AM pickling tank operator time (confirmation [id number]). CUSTOM HOME INSTALLER followed up with pt to provide confirmation. CUSTOM HOME INSTALLER additionally informed pt that Familia Holman submitted payment for most recent bill on 09/15. Pt was understanding and appreciative for the assistance. Pt landry ed additional questions or needs at this time. CUSTOM HOME INSTALLER remains available ongoing. Tamar Cruz [employer] SOUNDINGS GROUP LEADER, CUSTOM HOME INSTALLER [phone] documented in this encounter Plan of Treatment Upcoming Encounters Date Type Department Care Team (Late st Contact Info) Description 11/08/2024 11:15 AM EDT Office Visit [facility] [address]nd [place] [address] Kelsey Cerda, DMD [address] [place] [address] 11/18/2024 10:00 AM EDT Office Visit [address] [place] [address] [place] [address] [place] [address] 100 [place] [address] 11/23/2024 9:15 AM EDT Office Visit [facility] [address]nd [place] [address] Kelsey Cerda, DMD [address] [place] [address] 12/07/2024 11:15 AM EDT Office Visit [facility] [address] [place] [address] Kelsey Cerda, DMD [address] [place] [address] 12/13/2024 8:00 AM EDT Appointment PAV G Radiology [address] [place] [address] 12/13/2024 10:00 AM EDT Office Visit Pav CC Head, Neck & Respiratory 800 [facility], 2nd [place] [address] Viky Menon MD 800 [facility] [address] [place] [address] 12/13/2024 1:00 PM EDT Appointment PAV CC Radiation [id number] [place] [address] Imer Sevilla MD 800 [facility] [address] [place] [address] 12/13/2024 2:45 PM EDT Office Visit Pav CC Head, Neck & Respiratory 800 [facility], 2nd [place] [address] Matias Eldridge MD 800 [facility] 2nd [place] [address] 12/21/2024 10:15 AM EDT Office [facility] [address] [place] [address] Kelsey Cerda, DMD [address] [facility] [address] [place] [address] documented as of this encounter [...] documented as of this encounter Care Teams Creative Services Director Relationship Specialty Start Date End Date Carson Ibrahim MD 1210 [facility] [address] [place] [address] PCP - General 11/20/23 Imer Sevilla MD 800 [facility] [address] [place] [address] Consulting Physician Radiation Oncology 02/27/24 Viky Menon MD 800 [facility] [address] [place] [address] Consulting Physician Medical Oncology 04/21/24 Amelia Freeman, RN Registered Nurse Hematology and Oncology 05/13/24 documented as of this encounter
--- OUTSIDE RECORDS SUMMARY | 2024-10-27 10:44 | XMS_ITS | Encounter Summary ---
Author Organization [facility] Address [address] [place] [address] Care Team Providers Care Patient Financial Representative Name Role Phone Carson Ibrahim MD Primary Care Provider + [phone] Imer Sevilla MD Unavailable Viky Menon MD Unavailable [phone] Amelia Freeman RN Unavailable Unavailable Encounter Details Date Type Department Care Team (Latest Contact Info) Description 10/21/2024 Travel Social History Tobacco Use Types Packs/Day [...] in the past 12 m [facility], were you homeless or living [...] energy Not at all 10/21/2024 8:33 AM SHANIT Burt Whitley Poor appetite or overeating Not at all 10/21/2024 8: 33 AM SHANIT Zakia Whitley Feeling bad about yourself - or that you are a failure or have let yourself or your family down Not at all 10/21/2024 8:33 AM Burt Norman Trouble concentrating on things, such as reading [...] Preston Whitley documented as of this encounter Plan of Treatment Upcoming Encounters Date Type Department Care Team (Late st Contact Info) Description 11/08/2024 11:15 AM EDT Office Visit [facility] [address] 2nd [place] [address] Kelsey Cerda, DMD [address] [place] [address] 11/18/2024 10:00 AM EDT Office Visit [facility] [address]01 [place] [address] Abel Johnson MD [address] [facility] 100 [place] [address] 11/23/2024 9:15 AM EDT Office Visit [facility] [address] [place] [address] Kelsey Cerda, DMD [address] [facility] [address] [place] [address] 12/07/2024 11:15 AM EDT Office Visit [facility] [address] [place] [address] Kelsey Cerda, DMD [address] [facility] [address] [place] [address] 12/13/2024 8:00 AM EDT Appointment PAV G Radiology [address] [place] [address] 12/13/2024 10:00 AM EDT Office Visit Pav CC Head, Neck & Respiratory 800 [facility], 2nd [place] [address] Viky Menon MD 800 [facility] [address] [place] [address] 12/13/2024 1:00 PM EDT Appointment PAV CC Radiation 800 [facility]. [address] [place] [address] Imer Sevilla MD 800 [facility] [address] [place] [address] 12/13/2024 2:45 PM EDT Office Visit Pav CC Head, Neck & Respiratory 800 [facility], 2nd [place] [address] Matias Eldridge MD 800 [facility] 2nd [place] [address] 12/21/2024 10:15 AM EDT Office Visit [facility] [address] [place] [address] Kelsey Cerda, DMD [address] [facility] [address] [place] [address] documented as of this encounter [...] documented as of this encounter Care Teams Patient Financial Representative Relationship Specialty Start Date End Date Carson Ibrahim MD [address] [facility] [address] [place] [address] PCP - General 11/20/23 Imer Sevilla MD 800 [facility] [address] [place] [address] Consulting Physician Radiation Oncology 02/27/24 Viky Menon MD [address] K[address]ie [facility] 134 [place] [address] Consulting Physician Medical Oncology 04/21/24 Amelia Freeman, RN Registered Nurse Hematology and Oncology 05/13/24 documented as of this encounter
--- OUTSIDE RECORDS SUMMARY | 2024-10-27 10:44 | XMS_ITS | Encounter Summary ---
Author Organization Healthcare Address [address] [id number] Care Team Providers Care Hollow Tile Partition Erector Name Role Phone Carson Ibrahim MD Primary Care Provider + [phone] Imer Sevilla MD Unavailable Viky Menon MD Unavailable [phone] Amelia Freeman RN Unavailable Unavailable Encounter Details Date Type Department Care Team (Late st Contact Info) Description 10/22/2024 Orders Only Pav CC Head, Neck & Respiratory 800 [facility], 2nd [place] [address] Viky Menon MD 800 [facility] 134 [place] [address] Social History Tobacco Use Types [...] drink first t idalia in the morning (EYE-FISH HATCHERY MANAGER) to steady your nerves or to get rid of a hangover? 0 07/22/2024 CAGE Questionnaire Score 0 025 Utilities Answer Date Recorded In the past 12 months has th e [employer], gas, oil, or water company threatened to [...] Description 11/08/2024 11:15 AM EDT Office Visit [facility] [address] [place] [address] Kelsey Cerda, DMD [address] [facility] [address] [place] [address] 11/18/2024 10:00 AM EDT Office Visit [facility] [address]01 [place] [address] [place] [address] [place] [address] 100 [place] [address] 11/23/2024 9:15 AM EDT Office Visit [facility] [address] [place] [address] Kelsey Cerda, DMD [address] [place] [address] 12/07/2024 11:15 AM EDT Office Visit [facility] Adult [facility] [address] [place] [address] Kelsey Cerda, DMD [address] [facility] [address] [place] [address] 12/13/2024 8:00 AM EDT Appointment PAV G Radiology [address] [place] [address] 12/13/2024 10:00 AM EDT Office Visit Pav CC Head, Neck & Respiratory 800 [facility], 2nd [place] [address] Viky Menon MD 800 [facility] [address] [place] [address] 12/13/2024 1:00 PM EDT Appointment PAV CC Radiation [id number] [place] [address] Imer Sevilla MD 800 [facility] [address] [place] [address] 12/13/2024 2:45 PM EDT Office Visit [facility] CC Head, Neck & Respiratory 800 [facility], 2nd [place] [address] Matias Eldridge MD 800 [facility] [address]nd [place] [address] 12/21/2024 10:15 AM EDT Office Visit [facility] Adult [facility] [address] [place] [address] Kelsey Cerda, DMD [address] [facility] [address] [place] [address] documented as of this encounter [...] documented as of this encounter Care Teams Hollow Tile Partition Erector Relationship Specialty Start Date End Date Carson Ibrahim MD 1210 [facility] [address] [id number] PCP - General 11/20/23 Imer Sevilla MD 800 [facility] [address] [place] [address] Consulting Physician Radiation Oncology 02/27/24 Viky Menon MD 800 [facility] Liz Hester [facility] 134 [place] [address] Consulting Physician Medical Oncology 04/21/24 Amelia Freeman, RN Registered Nurse Hematology and Oncology 05/13/24 documented as of this encounter
--- OUTSIDE RECORDS SUMMARY | 2024-10-27 10:44 | XMS_ITS | Encounter Summary ---
Author Organization Healthcare Address [address] [id number] Care Team Providers Care Cash On Delivery Clerk Name Role Phone Carson Ibrahim MD Primary Care Provider + [phone] Imer Sevilla MD Unavailable Viky Menon MD Unavailable [phone] Amelia Freeman RN Unavailable Unavailable Encounter Details Date Type Department Care Team (Late st Contact Info) Description 10/21/2024 Telephone Pav CC Head, Neck & Respiratory 800 [facility], 2nd [place] [address] Viky Menon MD 800 [facility] 134 [place] [address] Social History Tobacco Use Types [...] any time in the past 12 m [facility], were you homeless or living in [...] first t idalia in the morning (EYE-MEDICAL INFORMATION OFFICER) to steady your nerves or to get rid of a hangover? 0 07/22/2024 CAGE Questionnaire Score 0 025 Utilities Answer Date Recorded In the past 12 months has e [employer], gas, oil, or water [employer] threatened to shut off services in your [...] hopeless Not at all 10/21/2024 8:33 AM SHANIT Burt Whitley Patient Health Questionnaire-2 Score 0 [...] television Not at all 10/21/2024 8:33 AM Burt Norman Moving or speaking so slowly that other [...] encounter Miscellaneous Notes * Telephone Encounter - Asuncion Johnson RN - 10/22/2024 10:10 AM EDT Preauth approved for fentanyl per covermymeds. Patient informed * Telephone Encounter - Asuncion Johnson RN - 10/21/2024 4:01 PM EDT Patient has increased pain in back related to infection most likely. (See ID note). Patient has been taking 3 tablets of oxycodone every 4 hours and is still in incredible pain. Needing a refill or new med. Says ID told him that he would let you know what is going on and that you had to be the one to treat the pain. * Telephone Encounter - Douglas Calloway - 10/21/2024 3:00 PM EDT Patient has called back and requests a call back DENNIS. * Telephone Encounter - Fidelia Alexander - 10/21/2024 10:53 AM EDT Patient Phone Message Reason for Call:Patient called back again to talk to he nurse Best contact number and optimal time of day to reach caller:[phone] Note: Please do not reply to this message. Follow-up communication and further actions as a result of this message need to be communicated with the patient directly, if the patient is not active onMyChart. If the patient is active on MyChart, they will receive notification of the communication/outcome via MyChart. * Telephone Encounter - Caitlin Delaney - 10/21/2024 9:39 AM EDT Patient Phone Message Reason for Call: Pt requested call back from nurse as soon as possible please. There is an issue with his prescription Best contact number and optimal time of day to reach caller: [phone] Note: Please do not reply to this [...] Visit [facility] [address] [place] [address] Kelsey Cerda, DMD [address] [place] [address] 11/18/2024 10:00 AM EDT Office Visit [facility] [address] [place] [address] Abel Johnson MD 3101 [facility] [address] [place] [address] 11/23/2024 9:15 AM EDT Office Visit [facility] [address] [place] [address] Kelsey Cerda, DMD [address] [place] [address] 12/07/2024 11:15 AM EDT Office Visit [facility] [address] [place] [address] Kelsey Cerda, DMD [address] [place] [address] 12/13/2024 8:00 AM EDT Appointment PAV G Radiology [address] [place] [address] 12/13/2024 10:00 AM EDT Office Visit [facility] Head[facility] Neck & Respiratory 800 [facility], [address]nd [place] [address] Viky Menon MD 800 [facility] [address] [place] [address] 12/13/2024 1:00 PM EDT Appointment PAV CC Radiation [address] [place] [address] Imer Sevilla MD 800 [facility] [address] [place] [address] 12/13/2024 2:45 PM EDT Office Visit [facility] Head[facility] Neck & Respiratory [address] 2nd [place] [address] Matias Eldridge MD [address] [facility] 2nd [place] [address] 12/21/2024 10:15 AM EDT Office Visit [facility] [address] [place] [address] Kelsey Cerda, DMD [address] [place] [address] documented as of this encounter [...] as of this encounter Care Teams Cash On Delivery Clerk Relationship Specialty Start Date End Date Carson Ibrahim MD [address] [address] PCP - General 11/20/23 Imer Sevilla MD 800 [facility] [address] [place] [address] Consulting Physician Radiation Oncology 02/27/24 Viky Menon MD [address] [place] [address] Consulting Physician Medical Oncology 04/21/24 Amelia Freeman, RN Registered Nurse Hematology and Oncology 05/13/24 documented as of this encounter
--- OUTSIDE RECORDS SUMMARY | 2024-10-27 10:44 | XMS_ITS | Encounter Summary ---
Author Organization Healthcare Address [address] [place] [address] Care Team Providers Care Documentation Designer Name Role Phone Carson Ibrahim MD Primary Care Provider + [phone] Imer Sevilla MD Unavailable Viky Menon MD Unavailable [phone] Amelia Freeman RN Unavailable Unavailable Encounter Details Date Type Department Care Team (Late st Contact Info) Description 10/21/2024 Telephone [facility] [address] [place] [address] Abel Johnson MD 3101 [facility] 100 [place] [address] Social History Tobacco Use Types [...] any time in the past 12 m [facility], were you homeless or living [...] drink first t idalia in the morning (EYE-DETECTIVE AND INTELLIGENCE ANALYST) to steady your nerves or to get rid of a hangover? 0 07/22/2024 CAGE Questionnaire Score 0 025 Utilities Answer Date Recorded In the past 12 months has e [employer], gas, oil, or water [employer] threatened to shut off services in your [...] down Not at all 10/21/2024 8:33 AM SHANIT Burt Whitley Trouble concentrating on things, such as reading the newspaper or watching television Not at all 10/21/2024 8:33 AM SHANIT Burt Whitley Moving or speaking so slowly [...] Description 11/08/2024 11:15 AM EDT Office Visit [facility] Adult Dentistry [address] 2nd [place] [address] Kelsey Cerda, DMD [address] [facility] [address] [place] [address] 11/18/2024 10:00 AM EDT Office Visit [facility] [address] [place] [address] Abel Johnson MD 3101 [facility] 100 [place] [address] 11/23/2024 9:15 AM EDT Office Visit [facility] Adult Dentistry [address] 2nd [place] [address] Kelsey Cerda, DMD [address] [facility] [address] [place] [address] 12/07/2024 11:15 AM EDT Office Visit [facility] Adult Dentistry [address] 2nd [place] [address] Kelsey Cerda, DMD [address] [place] [address] 12/13/2024 8:00 AM EDT Appointment [facility] Radiology [address] [place] [address] 12/13/2024 10:00 AM EDT Office Visit [facility] 800 [facility], 2nd [place] [address] Viky Menon MD 800 [facility] [address] [place] [address] 12/13/2024 1:00 PM EDT Appointment [facility] Radiation [id number] [place] [address] Imer Sevilla MD 800 [facility] [address] [place] [address] 12/13/2024 2:45 PM EDT Office Visit [facility] 800 [facility], 2nd [place] [address] Matias Eldridge MD 800 [facility] [address] [place] [address] 12/21/2024 10:15 AM EDT Office Visit [facility] [address] [place] [address] Kelsey Cerda, DMD [address] [facility] [address] [place] [address] documented as of this encounter [...] documented as of this encounter Care Teams Documentation Designer Relationship Specialty Start Date End Date Carson Ibrahim MD [address] [address] PCP - General 11/20/23 Imer Sevilla MD 800 [facility] [address] [place] [address] Consulting Physician Radiation Oncology 02/27/24 Viky Menon MD 800 [facility] [address] [facility] [address] [place] [address] Consulting Physician Medical Oncology 04/21/24 Amelia Freeman, RN Registered Nurse Hematology and Oncology 05/13/24 documented as of this encounter
--- OUTSIDE RECORDS SUMMARY | 2024-10-27 10:44 | XMS_ITS | Encounter Summary ---
Author Organization [facility] Address [address] [place] [address] Care Team Providers Care Gathering Machine Feeder Name Role Phone Carson Ibrahim MD Primary Care Provider + [phone] Imer Sevilla MD Unavailable Viky Menon MD Unavailable [phone] Amelia Freeman RN Unavailable Unavailable Encounter Details Date Type Department Care Team (Latest Contact Info) Description 10/06/2024 Travel Social History Tobacco Use Types Packs/Day [...] any time in the past 12 m [facility], were you homeless or living [...] drink first t idalia in the morning (EYE-CLAY DIGGER) to steady your nerves or to get rid of a hangover? 0 07/22/2024 CAGE Questionnaire Score 0 025 Utilities Answer Date Recorded In the past 12 months has [employer], gas, oil, or water company [...] Mariangel Wiley documented as of this encounter Plan of Treatment Upcoming Encounters Date Type Department Care Team (Late st Contact Info) Description 11/08/2024 11:15 AM EDT Office Visit [facility] Adult Dentistry [address] 2nd [place] [address] Kelsey Cerda, DMD [address] [place] [address] 11/18/2024 10:00 AM EDT Office Visit [facility] 3101 [facility] [place] [address] Abel Johnson MD 3101 [facility] [address] [place] [address] 11/23/2024 9:15 AM EDT Office Visit [facility] Adult Dentistry [address] 2[address] [place] [address] Kelsey Cerda, DMD [address] [place] [address] 12/07/2024 11:15 AM EDT Office Visit [facility] Adult Dentistry [address] 2nd [place] [address] Kelsey Cerda, DMD [address] [facility] [address] [place] [address] 12/13/2024 8:00 AM EDT Appointment [facility] Radiology [address] [place] [address] 12/13/2024 10:00 AM EDT Office Visit [facility] 800 [facility], 2nd [place] [address] Viky Menon MD 800 [facility] [address] [facility] [address] [place] [address] 12/13/2024 1:00 PM EDT Appointment [facility] Radiation 800 [facility]. [address]B [place] [address] Imer Sevilla MD 800 [facility] [address] [place] [address] 12/13/2024 2:45 PM EDT Office Visit [facility] 800 [facility], 2nd [place] [address] Matias Eldridge MD 800 [facility] 2nd [place] [address] 12/21/2024 10:15 AM EDT Office Visit [facility] [address] 2nd [place] [address] Kelsey Cerda, DMD [address] [facility] [address] [place] [address] documented as of this encounter [...] documented as of this encounter Care Teams Gathering Machine Feeder Relationship Specialty Start Date End Date Carson Ibrahim MD [address] [address] PCP - General 11/20/23 Imer Sevilla MD 800 [facility] [address] [place] [address] Consulting Physician Radiation Oncology 02/27/24 Viky Menon MD 800 [facility] [address] [address] Consulting Physician Medical Oncology 04/21/24 Amelia Freeman, RN Registered Nurse Hematology and Oncology 05/13/24 documented as of this encounter
--- OUTSIDE RECORDS SUMMARY | 2024-10-27 10:44 | XMS_ITS | Encounter Summary ---
Author Organization Healthcare Address [address] [place] [address] Care Team Providers Care Workers Compensation Claims Adjuster Name Role Phone Carson Ibrahim MD Primary Care Provider + [phone] Imer Sevilla MD Unavailable Viky Menon MD Unavailable [phone] Amelia Freeman RN Unavailable Unavailable Encounter Details Date Type Department Care Team (Late st Contact Info) Description 10/08/2024 Telephone [facility] 800 [facility], 2nd [place] [address] Matias Eldridge MD 800 [facility] [address]nd [place] [address] Social History Tobacco Use Types [...] drink first t idalia in the morning (EYE-STREET ENGINEER) to steady your nerves or to get rid of a hangover? 0 07/22/2024 CAGE Questionnaire Score 0 025 Utilities Answer Date Recorded In the past 12 months has th e [employer], gas, oil, or water company threatened to shut off services in your home? No 07/28/2024 Sex and Gender Information Value Date Recorded Sex Assigned at Male 01/06/2024 6:14 AM EDT Legal Sex Male 7:47 PM EDT Gender Identity Male 01/06/2024 6:14 AM EDT Sexual Orientation Not on file documented as of this encounter Miscellaneous Notes * Telephone Encounter - Kourtney Moody - 10/08/2024 10:29 AM EDT BK spoke to patient about MRI and follow up with [place] appointment dates and times. documented in this encounter Plan of Treatment Upcoming Encounters Date Type Department Care Team (Late st Contact Info) Description 11/08/2024 11:15 AM EDT Office Visit [facility] Adult Dentistry [address] 2nd [place] [address] Kelsey Cerda, DMD [address] [place] [address] 11/18/2024 10:00 AM EDT Office Visit [facility] [address]01 [facility] [place] [address] Abel Johnson MD [address] [facility] [address] [place] [address] 11/23/2024 9:15 AM EDT Office Visit [facility] Adult Dentistry [address] [place] [address] Kelsey Cerda, DMD [address] [facility] [address] [place] [address] 12/07/2024 11:15 AM EDT Office Visit [facility] Adult Dentistry [address] [place] [address] Kelsey Cerda, DMD [address] [facility] [address] [place] [address] 12/13/2024 8:00 AM EDT Appointment [facility] Radiology [address] [place] [address] 12/13/2024 10:00 AM EDT Office Visit [facility] 800 [facility], [address]nd [place] [address] Viky Menon MD 800 [facility] [address] [place] [address] 12/13/2024 1:00 PM EDT Appointment [facility] Radiation 800 [facility]. [address]G [place] [address] Imer Sevilla MD 800 [facility] [address] [place] [address] 12/13/2024 2:45 PM EDT Office Visit [facility] 800 [facility], [address] [place] [address] Matias Eldridge MD 800 [facility] [address] [address] 12/21/2024 10:15 AM EDT Office Visit [facility] Adult Dentistry [address] [place] [address] Kelsey Cerda, DMD [address] [facility] [address] [place] [address] documented as of this encounter [...] documented as of this encounter Care Teams Workers Compensation Claims Adjuster Relationship Specialty Start Date End Date Carson Ibrahim MD [address] [address] PCP - General 11/20/23 Imer Sevilla MD 800 [facility] [address] [place] [address] Consulting Physician Radiation Oncology 02/27/24 Viky Menon MD 800 [facility] [address] [place] [address] Consulting Physician Medical Oncology 04/21/24 Amelia Freeman, RN Registered Nurse Hematology and Oncology 05/13/24 documented as of this encounter
--- OUTSIDE RECORDS SUMMARY | 2024-10-27 10:44 | XMS_ITS | Encounter Summary ---
Author Organization [facility] Address [address] [place] [address] Care Team Providers Care Head Animal Keeper Name Role Phone Carson Ibrahim MD Primary Care Provider + [phone] Imer Sevilla MD Unavailable Viky Menon MD Unavailable [phone] Amelia Freeman RN Unavailable Unavailable Encounter Details Date Type Department Care Team (Latest Contact Info) Description 10/11/2024 Travel Social History Tobacco Use Types Packs/Day [...] in the past 12 m [facility], were you homeless or living [...] drink first t idalia in the morning (EYE-UROLOGY PHYSICIAN) to steady your nerves or to get [...] Description 11/08/2024 11:15 AM EDT Office Visit [facility] Adult Dentistry [address] 2nd [place] [address] Kelsey Cerda, DMD [address] [facility] [address] [place] [address] 11/18/2024 10:00 AM EDT Office Visit [facility] [address] [place] [address] [place] [address] [place] [address] [address] [place] [address] 11/23/2024 9:15 AM EDT Office Visit [facility] Adult Dentistry [address] [place] [address] Kelsey Cerda, DMD [address] [facility] [address] [place] [address] 12/07/2024 11:15 AM EDT Office Visit [facility] Adult Dentistry [address] [place] [address] Kelsey Cerda, DMD [address] [facility] [address] [place] [address] 12/13/2024 8:00 AM EDT Appointment [facility] Radiology [address] [place] [address] 12/13/2024 10:00 AM EDT Office Visit [facility] [address], 2nd [place] [address] Viky Menon MD 800 [facility] [address] [place] [address] 12/13/2024 1:00 PM EDT Appointment [facility] Radiation [address] [place] [address] Imer Sevilla MD [address] [facility] [address] [place] [address] 12/13/2024 2:45 PM EDT Office Visit [facility] [address] [facility], 2nd [place] [address] Matias Eldridge MD [address] [facility] 2nd [place] [address] 12/21/2024 10:15 AM EDT Office Visit [facility] [address] [place] [address] Kelsey Cerda, DMD [address] [facility] [address] [place] [address] documented as of this encounter [...] documented as of this encounter Care Teams Head Animal Keeper Relationship Specialty Start Date End Date Carson Ibrahim MD 1210 [facility] [address] [place] [address] PCP - General 11/20/23 Imer Sevilla MD 800 [facility] [address] [place] [address] Consulting Physician Radiation Oncology 02/27/24 Viky Mneon MD 800 [facility] Liz [facility] 134 [place] [address] Consulting Physician Medical Oncology 04/21/24 Amelia Freeman, RN Registered Nurse Hematology and Oncology 05/13/24 documented as of this encounter
--- OUTSIDE RECORDS SUMMARY | 2024-10-27 10:44 | XMS_ITS | Encounter Summary ---
Author Organization Healthcare Address [address] [place] [address] Care Team Providers Care Club Licensee Name Role Phone Carson Ibrahim MD Primary Care Provider + [phone] Imer Sevilla MD Unavailable Viky Menon MD Unavailable [phone] Amelia Freeman RN Unavailable Unavailable Reason for Visit * Reason Comments Resource Navigation Encounter Details Date Type Department Care Team (Late st Contact Info) Description 10/04/2024 Social Work Psych Oncology [address] [place] [address] Tamar Cruz Social History Tobacco Use Types [...] any time in the past 12 m [facility], were you homeless or living in a [...] drink first t idalia in the morning (EYE-PIE CRUST MIXER) to steady your nerves or to [...] * Progress Notes - Tamar Cruz - 10/04/2024 11:13 AM EDT Encounter Type: Phone Call Disease Status: Established Patient Clinic Location: [facility] Disease Type: Head & Neck Services Provided: Transportation Assistance Education Provided: Transportation Community Referrals: Medicaid Transportation Program Intervention Level: 3 Units (1 unit = 15 minutes): 2 Narrative: ANALYTICS LEADER received call from pt requesting transportation assistance for upcoming appt on 10/22. ANALYTICS LEADER was able to schedule pt transportation via medicaid for 10/22 (milk pickup truck driver [id number]). ANALYTICS LEADER provided pt with milk pickup truck driver time and confirmation. Pt additionally inquired of financial assistance for bills this month. ANALYTICS LEADER informed pt they could try [employer] for one additional month and then additional resources would need to be identified for assistance. Pt was understanding and committed to sending bills once they are received. Pt was appreciative for the assistance and denied additional questions or needs at this time. ANALYTICS LEADER remains available ongoing prn. Tamar Cruz TECHNICAL SOLUTION ARCHITECT, ANALYTICS LEADER [phone] * Progress Notes - Tamar Cruz - 10/04/2024 11:13 AM EDT ANALYTICS LEADER received additional bill from pt to be submitted to [employer]. ANALYTICS LEADER submitted this bill on pts behalf for financial assistance. ANALYTICS LEADER to follow up with pt as updates are received regarding payment. ANALYTICS LEADER remains available ongoing prn. Tamar Cruz TECHNICAL SOLUTION ARCHITECT, ANALYTICS LEADER [phone] documented in this encounter Plan of Treatment Upcoming Encounters Date Type Department Care Team (Late st Contact Info) Description 11/08/2024 11:15 AM EDT Office Visit [facility] Adult Dentistry [address] [place] [address] Kelsey Cerda, DMD [address] [place] [address] 11/18/2024 10:00 AM EDT Office Visit [facility] [address]01 [place] [address] Abel Johnson MD [address] [place] [address] [address] [place] [address] 11/23/2024 9:15 AM EDT Office Visit [facility] Adult Dentistry [address] [place] [address] Kelsey Cerda, DMD [address] [place] [address] 12/07/2024 11:15 AM EDT Office Visit [facility] Adult Dentistry [address] [place] [address] Kelsey Cerda, DMD [address] [place] [address] 12/13/2024 8:00 AM EDT Appointment [facility] G Radiology [address] [place] [address] 12/13/2024 10:00 AM EDT Office Visit [facility] Res[facility] 800 [facility], 2nd [place] [address] Viky Menon MD 800 [facility] [address] [place] [address] 12/13/2024 1:00 PM EDT Appointment [facility] CC Radiation 800 [facility]. [id number] [place] [address] Imer Sevilla MD 800 [facility] [address] [place] [address] 12/13/2024 2:45 PM EDT Office Visit [facility] Res[facility] 800 [facility], 2nd [place] [address] Matias Eldridge MD 800 [facility] 2nd [place] [address] 12/21/2024 10:15 AM EDT Office Visit [facility] [address] [place] [address] Kelsey Cerda, DMD [address] [facility] [address] [place] [address] documented as of this encounter [...] documented as of this encounter Care Teams Club Licensee Relationship Specialty Start Date End Date Carson Ibrahim MD 1210 [facility] [address] [place] [address] PCP - General 11/20/23 Imer Sevilla MD [address] [facility] [address] [place] [address] Consulting Physician Radiation Oncology 02/27/24 Viky Menon MD [address] [facility] [address] [place] [address] Consulting Physician Medical Oncology 04/21/24 Amelia Freeman, RN Registered Nurse Hematology and Oncology 05/13/24 documented as of this encounter
--- OUTSIDE RECORDS SUMMARY | 2024-10-27 10:44 | XMS_ITS | Encounter Summary ---
Author Organization [facility] Address [address] [place] [address] Care Team Providers Care Supervisor Waterworks Name Role Phone Carson Ibrahim MD Primary Care Provider + [phone] Imer Sevilla MD Unavailable Viky Menon MD Unavailable [phone] Amelia Freeman RN Unavailable Unavailable Encounter Details Date Type Department Care Team (Latest Contact Info) Description 10/22/2024 Travel Social History Tobacco Use Types Packs/Day [...] drink first t idalia in the morning (EYE-WATER/WASTEWATER ENGINEER) to steady your nerves or to [...] Description 11/08/2024 11:15 AM EDT Office Visit [facility] Adult Dentistry [address] [place] [address] Kelsey Cerda, DMD [address] [facility] [address] [place] [address] 11/18/2024 10:00 AM EDT Office Visit [facility] [address] [place] [address] [place] [address] [place] [address] 100 [place] [address] 11/23/2024 9:15 AM EDT Office Visit [facility] Adult Dentistry [address] [place] [address] Kelsey Cerda, DMD [address] [facility] [address] [place] [address] 12/07/2024 11:15 AM EDT Office Visit [facility] Adult Dentistry [address] [place] [address] Kelsey Cerda, DMD [address] [facility] [address] [place] [address] 12/13/2024 8:00 AM EDT Appointment [facility] Radiology [address] [place] [address] 12/13/2024 10:00 AM EDT Office Visit [facility] [address], 2nd [place] [address] Viky Menon MD 800 [facility] [address] [place] [address] 12/13/2024 1:00 PM EDT Appointment [facility] Radiation [id number] [place] [address] Imer Sevilla MD 800 [facility] [address] [place] [address] 12/13/2024 2:45 PM EDT Office Visit [facility] 800 [facility], 2nd [place] [address] Matias Eldridge MD 800 [facility] 2nd [place] [address] 12/21/2024 10:15 AM EDT Office Visit [facility] [address] [address] Kelsey Cerda, DMD [address] [facility] [address] [place] [address] documented as of this encounter [...] documented as of this encounter Care Teams Supervisor Waterworks Relationship Specialty Start Date End Date Carson Ibrahim MD 1210 [facility] [address] [place] [address] PCP - General 11/20/23 Imer Sevilla MD 800 [facility] [address] [place] [address] Consulting Physician Radiation Oncology 02/27/24 Viky Menon MD 800 [facility] [address] [facility] [address] [place] [address] Consulting Physician Medical Oncology 04/21/24 Amelia Freeman, RN Registered Nurse Hematology and Oncology 05/13/24 documented as of this encounter
--- OUTSIDE RECORDS SUMMARY | 2024-10-27 10:44 | XMS_ITS | Encounter Summary ---
Author Organization Healthcare Address [address] [place] [address] Care Team Providers Care Fence Erector Supervisor Name Role Phone Carson Ibrahim MD Primary Care Provider + [phone] Imer Sevilla MD Unavailable Viky Menon MD Unavailable [phone] Amelia Freeman RN Unavailable Unavailable Encounter Details Date Type Department Care Team (Late st Contact Info) Description 10/21/2024 Telephone [facility] [address] [place] [address] Abel Johnson MD 3101 [facility] 100 [place] [address] Social History Tobacco Use Types [...] drink first t idalia in the morning (EYE-PROTECTIVE SERVICE SPECIALIST) to steady your nerves or to get rid of a hangover? 0 07/22/2024 CAGE Questionnaire Score 0 025 Utilities Answer Date Recorded In the past 12 months has e [employer], gas, oil, or water [employer] threatened to shut off services in your [...] Score 0 10/21/2024 8:33 AM EDT Preston Wihtley documented as of this encounter Plan of Treatment Upcoming Encounters Date Type Department Care Team (Late st Contact Info) Description 11/08/2024 11:15 AM EDT Office Visit [facility] [address]nd [place] [address] Kelsey Cerda, DMD [address] [facility] [address] [place] [address] 11/18/2024 10:00 AM EDT Office Visit [facility] [address] [place] [address] Abel Johnson MD 3101 [facility] 100 [place] [address] 11/23/2024 9:15 AM EDT Office Visit [facility] [address] 2nd [place] [address] Kelsey Cerda, DMD [address] [facility] [address] [place] [address] 12/07/2024 11:15 AM EDT Office Visit [facility] [address] [place] [address] Kelsey Cerda, DMD [address] [place] [address] 12/13/2024 8:00 AM EDT Appointment [facility] [address] [place] [address] 12/13/2024 10:00 AM EDT Office Visit [facility] 800 [facility], 2nd [place] [address] Viky Menon MD 800 [facility] [address] [place] [address] 12/13/2024 1:00 PM EDT Appointment [facility] [address] [place] [address] Imer Sevilla MD 800 [facility] [address] [place] [address] 12/13/2024 2:45 PM EDT Office Visit [facility] 800 [facility], 2nd [place] [address] Matias Eldridge MD 800 [facility] [address] [place] [address] 12/21/2024 10:15 AM EDT Office Visit [facility] [address] [place] [address] Kelsey Cerda, DMD 740 [address] [facility] [address] [place] [address] documented as of this encounter [...] documented as of this encounter Care Teams Fence Erector Supervisor Relationship Specialty Start Date End Date Carson Ibrahim MD [address] [address] PCP - General 11/20/23 Imer Sevilla MD 800 [facility] [address] [place] [address] Consulting Physician Radiation Oncology 02/27/24 Viky Menon MD 800 [facility] [address] [facility] 134 [place] [address] Consulting Physician Medical Oncology 04/21/24 Amelia Freeman, RN Registered Nurse Hematology and Oncology 05/13/24 documented as of this encounter
--- OUTSIDE RECORDS SUMMARY | 2024-10-27 10:44 | XMS_ITS | Encounter Summary ---
Author Organization [facility] Address [address] [place] [address] Care Team Providers Care Pershing Missile Crewmember Name Role Phone Carson Ibrahim MD Primary Care Provider + [phone] Imer Sevilla MD Unavailable Viky Menon MD Unavailable [phone] Amelia Freeman RN Unavailable Unavailable Encounter Details Date Type Department Care Team (Latest Contact Info) Description 10/18/2024 Travel Social History Tobacco Use Types Packs/Day [...] any time in the past 12 m [facility], were you homeless or [...] first t idalia in the morning (EYE-AUTO SERVICE INSTRUCTOR) to steady your nerves or to [...] Description 11/08/2024 11:15 AM EDT Office Visit [facility] [address] [place] [address] Kelsey Cerda, DMD [address] [facility] [address] [place] [address] 11/18/2024 10:00 AM EDT [facility] Visit [facility] [address] [place] [address] [place] [address] [place] [address] 100 [place] [address] 11/23/2024 9:15 AM EDT Office Visit [facility] [address] [place] [address] Kelsey Cerda, DMD [address] [facility] [address] [place] [address] 12/07/2024 11:15 AM EDT Office Visit [facility] [address] [place] [address] Kelsey Cerda, DMD [address] [facility] [address] [place] [address] 12/13/2024 8:00 AM EDT Appointment [facility] [address] [place] [address] 12/13/2024 10:00 AM EDT Office Visit [facility] 800 [facility], 2nd [place] [address] Viky Menon MD 800 [facility] [address] [place] [address] 12/13/2024 1:00 PM EDT Appointment [facility] [id number] [place] [address] Imer Sevilla MD 800 [facility] [address] [place] [address] 12/13/2024 2:45 PM EDT Office Visit [facility] 800 [facility], 2nd [place] [address] Matias Eldridge MD 800 [facility] 2nd [place] [address] 12/21/2024 10:15 AM EDT Office Visit [facility] [address] [place] [address] Kelsey Cerda, DMD [address] [facility] [address] [place] [address] documented as of this encounter [...] documented as of this encounter Care Teams Pershing Missile Crewmember Relationship Specialty Start Date End Date Carson Ibrahim MD 1210 [facility] [address] [place] [address] PCP - General 11/20/23 Imer Sevilla MD 800 [facility] [address] [place] [address] Consulting Physician Radiation Oncology 02/27/24 Viky Menon MD 800 [facility] Liz Kacie [facility] 134 [place] [address] Consulting Physician Medical Oncology 04/21/24 Amelia Freeman, RN Registered Nurse Hematology and Oncology 05/13/24 documented as of this encounter
--- OUTSIDE RECORDS SUMMARY | 2024-10-27 10:44 | XMS_ITS | Encounter Summary ---
Author Organization [facility] Address [address] [place] [address] Care Team Providers Care Physician Ophthalmologist Name Role Phone Carson Ibrahim MD Primary Care Provider + [phone] Imer Sevilla MD Unavailable Viky Menon MD Unavailable [phone] Amelia Freeman RN Unavailable Unavailable Reason for Visit * Reason Onset Date Comments Prior-authorization/insurance Verification 10/22 Encounter Details Date Type Department Care Team (Late st Contact Info) Description 10/22/2024 Telephone [facility] [address] [place] [address] Nabil Gaitan, PharmD Prior-authorization/ins urance Verification Social History Tobacco Use Types Packs/Day Years [...] in the past 12 m [facility], were you homeless or living in [...] drink first t idalia in the morning (EYE-CARGO MATE) to steady your nerves or to get [...] Description 11/08/2024 11:15 AM EDT Office Visit [facility] [address] 2nd [place] [address] Kelsey Cerda, DMD [address] [facility]41 [place] [address] 11/18/2024 10:00 AM EDT Office Visit [place] [address] [place] [address] Abel Johnson MD [address] [place] [address] 100 [place] [address] 11/23/2024 9:15 AM EDT Office Visit [facility] [address]nd [place] [address] Kelsey Cerda, DMD [address] [facility] [address] [place] [address] 12/07/2024 11:15 AM EDT Office Visit [facility] [address] 2nd [place] [address] Kelsey Cerda, DMD [address] [facility] [address] [place] [address] 12/13/2024 8:00 AM EDT Appointment [facility] [address] [place] [address] 12/13/2024 10:00 AM EDT Office Visit [facility] 800 [facility], 2nd [place] [address] Viky Menon MD 800 [facility] [address] [place] [address] 12/13/2024 1:00 PM EDT Appointment [facility] [id number] [place] [address] Iemr Sevilla MD 800 [facility] [address] [place] [address] 12/13/2024 2:45 PM EDT Office Visit [facility] 800 [facility], 2nd [place] [address] Matias Eldridge MD 800 [facility] [address]nd [place] [address] 12/21/2024 10:15 AM EDT Office Visit [facility] [address] [place] [address] Kelsey Cerda, DMD [address] [facility] [address] [place] [address] documented as of this encounter [...] documented as of this encounter Care Teams Physician Ophthalmologist Relationship Specialty Start Date End Date Carson Ibrahim MD [facility] [address] [address] PCP - General 11/20/23 Imer Sevilla MD 800 [facility] [address] [place] [address] Consulting Physician Radiation Oncology 02/27/24 Viky Menon MD 800 [facility] 134 [place] [address] Consulting Physician Medical Oncology 04/21/24 Amelia Freeman, RN Registered Nurse Hematology and Oncology 05/13/24 documented as of this encounter
--- OUTSIDE RECORDS SUMMARY | 2024-10-27 10:44 | XMS_ITS | Encounter Summary ---
Author Organization Healthcare Address [address] [place] [id number] Care Team Providers Care Employee Health Nurse Name Role Phone Carson Ibrahim MD Primary Care Provider + [phone] Imer Sevilla MD Unavailable Viky Menon MD Unavailable [phone] Amelia Freeman RN Unavailable Unavailable Encounter Details Date Type Department Care Team (Late st Contact Info) Description 10/22/2024 Telephone [facility] 800 [facility], 2nd [place] [address] Viky Menon MD 800 [facility] 134 [place] [address] Social History Tobacco Use Types [...] in the past 12 m [facility], were you homeless or living in a [...] drink first t idalia in the morning (EYE-BLACKSMITH HELPER) to steady your nerves or to get rid of a hangover? 0 07/22/2024 CAGE Questionnaire Score 0 025 Utilities Answer Date Recorded In the past 12 months has e [employer], gas, oil, or water [employer] threatened to shut off services in your home? No 07/28/2024 Sex and Gender Information Value Date Recorded Sex Assigned at Male 01/06/2024 6:14 AM EDT Legal Sex Male 7:47 PM EDT Gender Identity Male 01/06/2024 6:14 AM EDT Sexual Orientation Not on file documented as of this encounter Miscellaneous Notes * Telephone Encounter - Asuncion Johnson RN - 10/22/2024 10:13 AM EDT Meds sent to [facility] pharmacy as patient is here today. PA approved. * Telephone Encounter - Fidelia Alexander - 10/22/2024 9:52 AM EDT Patient Phone Message Reason for Call:[facility] pharmacy called said that the fentaNYL need a PA and they dont have them instock and may not have them until friday Best contact number and optimal time of day to reach caller:[phone] Note: Please do not reply to this message. Follow-up communication and further actions as a result of this message need to be communicated with the patient directly, if the patient is not active onMyChart. If the patient is active on MyChart, they will receive notification of the communication/outcome via [employer]. * Telephone Encounter - Fidelia Alexander - 10/22/2024 9:22 AM EDT Patient Phone Message Reason for Call:Patient called about getting his script fill for his pain med Best contact number and optimal time of day to reach caller:[phone] Note: Please do not reply to this message. Follow-up communication and further actions as a result of this message need to be communicated with the patient directly, if the patient is not active onMyChart. If the patient is active on MyChart, they will receive notification of the communication/outcome via [employer]. documented in this encounter Plan of Treatment Upcoming Encounters Date Type Department Care Team (Late st Contact Info) Description 11/08/2024 11:15 AM EDT Office Visit [facility] [address] [place] [phone] Kelsey Cerda, DMD [address] [facility] [address] [place] [address] 11/18/2024 10:00 AM EDT Office Visit [facility] [address] [place] [address] [place] [address] [place] [address] 100 [place] [address] 11/23/2024 9:15 AM EDT Office Visit [facility] [address] 2nd [place] [address] Kelsey Cerda, DMD [address] [facility] [address] [place] [address] 12/07/2024 11:15 AM EDT Office Visit [facility] [address]nd [place] [address] Kelsey Cerda, DMD [address] [place] [address] 12/13/2024 8:00 AM EDT Appointment [facility] [address] [place] [address] 12/13/2024 10:00 AM EDT Office Visit [facility] [address] [facility], 2nd [place] [address] Viky Menon MD [address] [facility] [address] [place] [address] 12/13/2024 1:00 PM EDT Appointment [facility] [id number] [place] [address] Imer Sevilla MD [address] [facility] [address] [place] [address] 12/13/2024 2:45 PM EDT Office Visit [facility] [address] [facility], 2nd [place] [address] Matias Eldridge MD [address] [facility] 2nd [place] [address] 12/21/2024 10:15 AM EDT [facility] [address] [place] [address] Kelsey Cerda, DMD [address] [facility] [address] [place] [address] documented as of this encounter [...] documented as of this encounter Care Teams Employee Health Nurse Relationship Specialty Start Date End Date Carson Ibrahim MD [address] [address] PCP - General 11/20/23 Imer Sevilla MD 800 [facility] [address] [place] [address] Consulting Physician Radiation Oncology 02/27/24 Viky Menon MD 800 [facility] 134 [place] [address] Consulting Physician Medical Oncology 04/21/24 Amelia Freeman, RN Registered Nurse Hematology and Oncology 05/13/24 documented as of this encounter
--- OUTSIDE RECORDS SUMMARY | 2024-10-27 10:44 | XMS_ITS | Encounter Summary ---
Author Organization Healthcare Address [address] [place] [address] Care Team Providers Care Cake Froster Name Role Phone Carson Ibrahim MD Primary Care Provider + [phone] Imer Sevilla MD Unavailable Viky Menon MD Unavailable [phone] Amelia Freeman RN Unavailable Unavailable Reason for Visit * Reason Comments Resource Navigation Encounter Details Date Type Department Care Team (Late st Contact Info) Description 10/19/2024 Social Work Psych Oncology [address] [place] [address] Julieta Price Social History Tobacco Use Types Packs/Day Years [...] drink first t idalia in the morning (EYE-CLOUD SYSTEMS ADMINISTRATOR) to steady your nerves or to get [...] encounter Miscellaneous Notes * Progress Notes - Julieta Price - 10/19/2024 10:07 AM EDT Encounter Type: Phone Call Disease Status: Established Patient Clinic Location: [facility] Disease Type: Head & Neck Services Provided: Clinical Navigation Intervention Level: 2 Units (1 unit = 15 minutes): 1 Narrative: SAWMILL MOULDER OPERATOR returned miss phone call from pt. Pt stated that pt in need of transportation to appt at ID clinic. SAWMILL MOULDER OPERATOR informed pt that SAWMILL MOULDER OPERATOR unable to arrange due to being out of 72 hour window and due to this not being at [facility]. SAWMILL MOULDER OPERATOR encouraged pt to reach out to ID clinic to see if they may be able to assist. Pt voiced understanding and appreciation for the assistance. No further needs identified. SAWMILL MOULDER OPERATOR to remain available for any ongoing needs or support. EUSEBIA Michelle, SAWMILL MOULDER OPERATOR [facility] Psych-Oncology Services documented in this encounter Plan of Treatment Upcoming Encounters Date Type Department Care Team (Late st Contact Info) Description 11/08/2024 11:15 AM EDT [facility] Visit [facility] [address] [place] [address] Kelsey Cerda, DMD [address] [place] [address] 11/18/2024 10:00 AM EDT Office Visit [facility] [address]01 [facility] [place] [address] Abel Johnson MD 3101 [facility] [address] [place] [address] 11/23/2024 9:15 AM EDT Office Visit [facility] [address] [place] [address] Kelesy Cerda, DMD [address] [place] [address] 12/07/2024 11:15 AM EDT Office Visit [facility] [address] [place] [address] Kelsey Cerda, DMD [address] [facility] [address] [place] [address] 12/13/2024 8:00 AM EDT Appointment [facility] [address] [place] [address] 12/13/2024 10:00 AM EDT Office Visit [facility] 800 [facility], 2nd [place] [address] Viky Menon MD [address] [place] [address] 12/13/2024 1:00 PM EDT Appointment [facility] [id number] [place] [address] Imer Sevilla MD [address] [place] [address] 12/13/2024 2:45 PM EDT Office Visit [facility] [address], 2nd [place] [address] Matias Eldridge MD [address] [facility] 2nd [place] [address] 12/21/2024 10:15 AM EDT [facility] [address] [place] [address] Kelsey Cerda, DMD [address] [place] [address] documented as of this encounter [...] documented as of this encounter Care Teams Cake Froster Relationship Specialty Start Date End Date Carson Ibrahim MD [address] [address] PCP - General 11/20/23 Imer Sevilla MD [address] [facility] [address] [place] [address] Consulting Physician Radiation Oncology 02/27/24 Viky Menon MD [address] [facility] [address] [place] [address] Consulting Physician Medical Oncology 04/21/24 Amelia Freeman, RN Registered Nurse Hematology and Oncology 05/13/24 documented as of this encounter
--- OUTSIDE RECORDS SUMMARY | 2024-10-27 10:44 | XMS_ITS | Encounter Summary ---
Author Organization Healthcare Address [address] [id number] Care Team Providers Care Wad Compressor Operator Adjuster Name Role Phone Carson Ibrahim MD Primary Care Provider + [phone] Imer Sevilla MD Unavailable Viky Menon MD Unavailable [phone] Amelia Freeman RN Unavailable Unavailable Encounter Details Date Type Department Care Team (Late st Contact Info) Description 09/30/2024 Refill [facility] Head[facility] Neck & Respiratory [address] [facility], 2nd [place] [address] Viky Menon MD 800 [facility] [address] [place] [address] Social History Tobacco Use Types [...] any time in the past 12 m [facility], were you homeless or living [...] drink first t idalia in the morning (EYE-GEOPHYSICAL LABORATORY SUPERVISOR) to steady your nerves or to get rid of a hangover? 0 07/22/2024 CAGE Questionnaire Score 0 025 Utilities Answer Date Recorded In the past 12 months has th e [employer], gas, oil, or water [employer] threatened to shut off services in your home? No 07/28/2024 Sex and Gender Information Value Date Recorded Sex Assigned at Male 01/06/2024 6:14 AM EDT Legal Sex Male 7:47 PM EDT Gender Identity Male 01/06/2024 6:14 AM EDT Sexual Orientation Not on file documented as of this encounter Miscellaneous Notes * Telephone Encounter - Rickey Hirsch - 09/30/2024 3:59 PM EDT Spoke with patient over the phone regarding oxycodone prescription. Patient was informed that prescription refill has been signed by physician and sent to preferred pharmacy for pickup. Patient stated no other needs at this time. * Telephone Encounter - Altagracia Hogan - 09/30/2024 9:40 AM EDT Per pt call to [facility], Sinan pt needs pain Rx's refilled, pt has enough pills to get through this coming Monday 10/02: Pt best number [phone] oxyCODONE (Roxicodone) 10 MG immediate release tablet , every 4 hrs PRN Preferred Pharmacy: Aysha Meyer ([id number]), 27 P: [phone] F: [phone] documented in this encounter Plan of Treatment Upcoming Encounters Date Type Department Care Team (Late st Contact Info) Description 11/08/2024 11:15 AM EDT Office Visit [facility] Adult Dentistry [address] [place] [address] Kelsey Cerda, DMD [address] [facility] [address] [place] [address] 11/18/2024 10:00 AM EDT Office Visit [facility] [address] [facility] [place] [address] Abel Johnson MD [address] [facility] [address] [place] [address] 11/23/2024 9:15 AM EDT Office Visit [facility] Adult Dentistry [address] [place] [address] Kelsey Cerda, DMD [address] [facility] [address] [place] [address] 12/07/2024 11:15 AM EDT Office Visit [facility] Adult Dentistry [address] [place] [address] Kelsey Cerda, DMD [address] [facility] [address] [place] [address] 12/13/2024 8:00 AM EDT Appointment [facility] Radiology [address] [place] [address] 12/13/2024 10:00 AM EDT Office Visit [facility] Head, Neck & Respiratory [address] [facility], 2nd [place] [address] Viky Menon MD [address] [facility] [address] [place] [address] 12/13/2024 1:00 PM EDT Appointment [facility] CC Radiation [address] [facility]. [id number] [place] [address] Imer Sevilla MD [address] [facility] [address] [place] [address] 12/13/2024 2:45 PM EDT Office Visit [facility] Head[facility] Neck & Respiratory [address] [facility], 2nd [place] [address] Matias Eldridge MD [address] [facility] 2nd [place] [address] 12/21/2024 10:15 AM EDT Office Visit [facility] [address] [place] [address] Kelsey Cerda, DMD [address] [place] [address] documented as of this encounter [...] documented as of this encounter Care Teams Wad Compressor Operator Adjuster Relationship Specialty Start Date End Date Carson Ibrahim MD [address] [address] PCP - General 11/20/23 Imer Sevilla MD 800 [facility] [address] [place] [address] Consulting Physician Radiation Oncology 02/27/24 Viky Menon MD [address] [facility] Liz Hester [facility] [address] [place] [address] Consulting Physician Medical Oncology 04/21/24 Amelia Freeman, RN Registered Nurse Hematology and Oncology 05/13/24 documented as of this encounter
--- OUTSIDE RECORDS SUMMARY | 2024-10-27 10:44 | XMS_ITS | Encounter Summary ---
Author Organization Healthcare Address [address] [place] [address] Care Team Providers Care Welfare Centre Manager Name Role Phone Carson Ibrahim MD Primary Care Provider + [phone] Imer Sevilla MD Unavailable Viky Menon MD Unavailable [phone] Amelia Freeman RN Unavailable Unavailable Encounter Details Date Type Department Care Team (Late st Contact Info) Description 10/18/2024 Telephone [facility] [address] [place] [address] Abel Johnson MD 3101 [facility] [address] [place] [address] Social History Tobacco Use Types [...] drink first t idalia in the morning (EYE-ROSE GRADER) to steady your nerves or to get rid of a hangover? 0 07/22/2024 CAGE Questionnaire Score 0 025 Utilities Answer Date Recorded In the past 12 months has th e [employer], gas, oil, or water [employer] threatened to shut off services in your home? No 07/28/2024 Sex and Gender Information Value Date Recorded Sex Assigned at Male 01/06/2024 6:14 AM EDT Legal Sex Male 7:47 PM EDT Gender Identity Male 01/06/2024 6:14 AM EDT Sexual Orientation Not on file documented as of this encounter Miscellaneous Notes * Telephone Encounter - Kristin Blanco - 10/18/2024 4:38 PM EDT ----- Message from Abel Johnson MD sent at 10/18/2024 4:19 PM EDT ----- Regarding: New referral Dawit Quintana is putting in a new referral for him, but this pt is known to me. If he is able to come in for a visit on 10/21, I think I have a 30 min open for him to be placed in. Telehealth is ok. Thanks! documented in this encounter Plan of Treatment Upcoming Encounters Date Type Department Care Team (Late st Contact Info) Description 11/08/2024 11:15 AM EDT Office Visit [facility] [address]nd [place] [address] Kelsey Cerda, DMD [address] [place] [address] 11/18/2024 10:00 AM EDT Office Visit [facility] [address] [place] [address] Abel Johnson MD [address] [facility] [address] [place] [address] 11/23/2024 9:15 AM EDT Office Visit [facility] Adult Dentistry [address] [place] [address] Kelsey Cerda, DMD [address] [place] [address] 12/07/2024 11:15 AM EDT Office Visit [facility] Adult Dentistry [address] [place] [address] Kelsey Cerda, DMD [address] [place] [address] 12/13/2024 8:00 AM EDT Appointment [facility] Radiology [address] [place] [address] 12/13/2024 10:00 AM EDT Office Visit [facility] Head, Neck & Respiratory 800 [facility], [address] [place] [address] Viky Menon MD 800 [facility] [address] [place] [address] 12/13/2024 1:00 PM EDT Appointment [facility] CC Radiation [address] [place] [address] Imer Sevilla MD [address] [place] [address] 12/13/2024 2:45 PM EDT Office Visit [facility] Head, Neck & Respiratory 800 [facility], 2nd [place] [address] Matias Eldridge MD [address] [facility] 2nd [place] [address] 12/21/2024 10:15 AM EDT Office Visit [facility] [address] [place] [address] Kelsey Cerda, DMD [address] [place] [address] documented as of this encounter [...] documented as of this encounter Care Teams Welfare Centre Manager Relationship Specialty Start Date End Date Carson Ibrahim MD 1210 [facility] [address] [place] [address] PCP - General 11/20/23 Imer Sevilla MD [address] [facility] [address] [place] [address] Consulting Physician Radiation Oncology 02/27/24 Viky Menon MD [address] [place] [address] Consulting Physician Medical Oncology 04/21/24 Amelia Freeman, RN Registered Nurse Hematology and Oncology 05/13/24 documented as of this encounter
--- OUTSIDE RECORDS SUMMARY | 2024-10-27 10:44 | XMS_ITS | Encounter Summary ---
Author Organization Healthcare Address [address] [place] [address] Care Team Providers Care Telecommunication Operator Name Role Phone Carson Ibrahim MD Primary Care Provider + [phone] Imer Sevilla MD Unavailable Viky Menon MD Unavailable [phone] Amelia Freeman RN Unavailable Unavailable Reason for Visit * Reason Comments Resource Navigation Encounter Details Date Type Department Care Team (Late st Contact Info) Description 10/12/2024 Social Work Psych Oncology [address] [place] [address] Tamar Cruz Social History Tobacco Use Types [...] drink first t idalia in the morning (EYE-REHABILITATION PROGRAM COORDINATOR) to steady your nerves or [...] * Progress Notes - Tamar Cruz - 10/12/2024 11:40 AM EDT Encounter Type: Phone Call Disease Status: Established Patient Clinic Location: [facility] Disease Type: Head & Neck Services Provided: Transportation Assistance Education Provided: Transportation Community Referrals: Medicaid Transportation Program Intervention Level: 3 Units (1 unit = 15 minutes): 2 Narrative: CUSHION SPRING ASSEMBLER received call from pt requesting transportation assistance for additional appts. CUSHION SPRING ASSEMBLER was able to schedule medicaid transport for pt on 10/18 (1230PM filler picker/#[id number]) and 11/08 ([id number]). CUSHION SPRING ASSEMBLER followed up and relayed confirmations to pt. Pt was appreciative for the assistance. Pt additionally disclosed that he is supposed to have a PET scan prior to his November appt with radiation and it has not been scheduled yet. CUSHION SPRING ASSEMBLER committed to following up with radiation for further evaluation and scheduling. Pt was appreciative for the assistance and denied additional questions or needs at this time. CUSHION SPRING ASSEMBLER encouraged pt to follow up should additional needs arise. CUSHION SPRING ASSEMBLER remains available ongoing prn. Tamar LAWS, KIMBERLY [phone] documented in this encounter Plan of Treatment Upcoming Encounters Date Type Department Care Team (Late st Contact Info) Description 11/08/2024 11:15 AM EDT Office Visit [facility] Adult Dentistry [address] [place] [address] Kelsey Cerda, DMD [address] [place] [address] 11/18/2024 10:00 AM EDT Office Visit [facility] [address] [facility] [place] [address] Abel Johnson MD [address] [facility] [address] [place] [address] 11/23/2024 9:15 AM EDT Office Visit [facility] Adult Dentistry [address] [place] [address] Kelsey Cerda, DMD [address] [place] [address] 12/07/2024 11:15 AM EDT Office Visit [facility] Adult Dentistry [address] [place] [address] Kelsey Cerda, DMD [address] [place] [address] 12/13/2024 8:00 AM EDT Appointment [facility] G Radiology [address] [place] [address] 12/13/2024 10:00 AM EDT Office Visit [facility] Head, Neck & Respiratory [address] 2nd [place] [address] Viky Menon MD [address] [facility] [address] [place] [address] 12/13/2024 1:00 PM EDT Appointment [facility] CC Radiation [id number] [place] [address] Imer Sevilla MD 800 [facility] [address] [place] [address] 12/13/2024 2:45 PM EDT Office Visit [facility] Head, Neck & Respiratory 800 [facility], 2nd [place] [address] Matias Eldridge MD 800 [facility] 2nd [place] [address] 12/21/2024 10:15 AM EDT Office Visit [facility] Adult [facility] [address] [place] [address] Kelsey Cerda, DMD [address] [facility] [address] [place] [address] documented as of this encounter [...] documented as of this encounter Care Teams Telecommunication Operator Relationship Specialty Start Date End Date Carson Ibrahim MD [address] [address] PCP - General 11/20/23 Imer Sevilla MD 800 [facility] [address] [place] [address] Consulting Physician Radiation Oncology 02/27/24 Viky Menon MD 800 [facility] Liz Hester [facility] [address] [place] [address] Consulting Physician Medical Oncology 04/21/24 Amelia Freeman, RN Registered Nurse Hematology and Oncology 05/13/24 documented as of this encounter
--- OUTSIDE RECORDS SUMMARY | 2024-10-27 10:44 | XMS_ITS | Encounter Summary ---
Author Organization Healthcare Address [address] [place] [address] Care Team Providers Care Buffing Wheel Inspector Name Role Phone Carson Ibrahim MD Primary Care Provider + [phone] Imer Sevilla MD Unavailable Viky Menon MD Unavailable [phone] Amelia Freeman RN Unavailable Unavailable Reason for Visit * Reason Onset Date Comments CT SCAN 10/12/2024 Encounter Details Date Type Department Care Team (Late st Contact Info) Description 10/12/2024 Telephone [facility] Radiation [id number] [place] [address] Edith Prater, RN AMB-CHEMO INFUSION SUITE CLINIC CT SCAN Social History Tobacco Use Types Packs/Day Years [...] place to sleep or slept in a fdc (including now)? No 01/08/2024 PHQ-9 Answer Date [...] were you homeless or living in a fdc (including now)? No 07/28/2024 CAGE ASSESSMENT Answer [...] drink first t idalia in the morning (EYE-LOSS PREVENTION RESEARCH ENGINEER) to steady your nerves or to [...] encounter Miscellaneous Notes * Telephone Encounter - Edith Prater RN - 10/12/2024 11:54 AM EDT Called patient and left detailed message regarding his CT SCAN that is now scheduled at 0800 at [facility]. Patient to not have anything to eat after 4 am, which is 4 hours prior to scan but to drinkplenty of water before scan. Patient left clinic phone number if he has further questions regarding. documented in this encounter Plan of Treatment Upcoming Encounters Date Type Department Care Team (Late st Contact Info) Description 11/08/2024 11:15 AM EDT Office Visit [facility] Adult Dentistry [address] [place] [address] Kelsey Cerda, DMD [address] [place] [address] 11/18/2024 10:00 AM EDT Office Visit [facility] [address] [place] [address] Abel Johnson MD 3101 [facility] [address] [place] [address] 11/23/2024 9:15 AM EDT Office Visit [facility] Adult Dentistry [address] [place] [address] Kelsey Cerda, DMD [address] [place] [address] 12/07/2024 11:15 AM EDT Office Visit [facility] Adult Dentistry [address] [place] [address] Kelsey Cerda, DMD [address] [facility] [address] [place] [address] 12/13/2024 8:00 AM EDT Appointment [facility] G Radiology [address] [place] [address] 12/13/2024 10:00 AM EDT Office Visit [facility] Head, Neck & Respiratory 800 [facility], 2nd [place] [address] Viky Menon MD 800 [facility] [address] [place] [address] 12/13/2024 1:00 PM EDT Appointment [facility] CC Radiation [id number] [place] [address] Imer Sevilla MD [address] [facility] [address] [place] [address] 12/13/2024 2:45 PM EDT Office Visit [facility] Head, Neck & Respiratory [address] 2nd [place] [address] Matias Eldridge MD [address] [facility] [address] [place] [address] 12/21/2024 10:15 AM EDT Office Visit [facility] Adult Dentistry [address] [place] [address] Kelsey Cerda, DMD [address] [place] [address] documented as of this encounter [...] documented as of this encounter Care Teams Buffing Wheel Inspector Relationship Specialty Start Date End Date Carson Ibrahim MD 1210 [facility] [address] [place] [address] PCP - General 11/20/23 Imer Sevilla MD 800 [facility] [address] [place] [address] Consulting Physician Radiation Oncology 02/27/24 Viky Menon MD [address] Hester [facility] [address] [place] [address] Consulting Physician Medical Oncology 04/21/24 Aemlia Freeman, RN Registered Nurse Hematology and Oncology 05/13/24 documented as of this encounter
[2024-10-27 12:06] VITALS: BP 107/56; PULSE 65; RESP 18; O2SAT 97; BMI 27.2
--- NOTE | 2024-10-27 12:20 | EXP.PAIN.SOA ---
[facility] Disclaimer: The information contained in this section may have been updated after the patient was seen, as this information can be updated by other users. 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 Hypertension Hyperlipidemia Type 2 diabetes mellitus Open wound of right lower leg Kidney stones Hernia, umbilical Surgical History Status post skin graft History of radical dissection of left side of neck S/P partial glossectomy Status post tracheostomy History of submandibular gland removal History of ureter stent Family History Other Coronary artery disease Social History Smoking Status: Never smoker second hand exposure: No alcohol intake: never substance use type: denies use current occupational status: employed Travel in the last 8 weeks?: None household members: spouse housing: house 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 Patient does state that he did notice some improvement however it was very short-lived. Patient states that he has also had a lot going on including having an updated MRI and that was told that there is the possibility that he has got active infection in his mid back. Patient has been having a lot more pain there at his low back that does radiate towards his abdomen on the left side. He does also state that he has chronic pain from his PEG tube scar that is still very tender. He does state that it can be very random when the pain comes and goes. He states in the past he was having more right-sided however in the last little bit it has been more left-sided. Patient does state with the updated MRI that they did want to order additional imaging due to the possibility of infection and he has not yet gotten this scheduled. Patient states that he was seeing a doctor at and then was sent to a infectious disease specialist there at as well. Patient does describe the pain that he is feeling a pinching almost pressure sensation that does pulsate. Patient does make mention that he is cancer doctor has previously prescribed him other medications including gabapentin and fentanyl but he is really not used days. He states the 1 time he attempted to use the fentanyl patch that it was applied to his back and it kept sliding down and he ended up wasting to patches. Patient states he has not really tried to use these any additional. Patient states that he really never tried the gabapentin because he had concerns of if this would bother him and cause worsening symptoms. Patient did get the compounded cream however he states he only applied it around his low back and did not notice much improvement. His Sebastien has been reviewed and is appropriate. Review of Systems: General: No recent weight changes, no fever, no sleep disturbances Respiratory: No cough, no shortness of air, no recurring pulmonary infections Cardiovascular/peripheral vascular: No chest pain, no palpitations, no edema, no shortness of breath Gastrointestinal: No new onset incontinence, normal bowel movements reported Genitourinary: No new onset incontinence Musculoskeletal: Low back pain, abdomen pain Psychiatric: [Normal mood/affect] Neurological: [Denies weakness in extremities], [denies balance issues] Pain at rest (0-10 scale): 10 Objective Objective:: Physical Exam: General: Alert and oriented x3, no acute distress, pleasant and cooperative Lungs: Respirations even and unlabored, symmetrical chest expansion Eyes: PERRL Musculoskeletal: Flexion and extension of lumbar [spine] somewhat guarded secondary to pain, [antalgic gait noted] Neurological: Speech clear, no gross sensory deficit Has patient had previous pain injection?: Yes Percent improvement in pain since last injection: Short-lived Conservative treatment options previously tried: Home exercise plan Length of treatment: Longer than 12 weeks Meds Home Medications and Allergies Home Medications ?Medication ?Instructions ?Recorded ?Confirmed ?Type famotidine 20 mg tablet 20 mg PO HSP PRN Heartburn 07/02/24 10/12/24 History oxycodone 10 mg tablet 10 mg PO Q4HP PRN Severe Pain 07/02/24 10/12/24 History (Scale Score 7-10) polyethylene glycol 3350 17 17 g PO DAILY 07/02/24 10/12/24 History gram/dose oral powder carvedilol 6.25 mg tablet 6.25 mg PO BID #60 tabs 09/16/24 10/12/24 Rx New Prescriptions to Start Prescriptions: Allergies Allergy/AdvReac Type Severity Reaction Status Date / Time Penicillins Allergy Unknown Verified 09/30/24 13:46 allergy reaction Assessment and Plan *Assessment and plan (1) Low back pain: Status: Acute Category: Medical Code(s): M54.50 - Low back pain, unspecified (2) Abdominal pain: Status: Acute Category: Medical Code(s): R10.9 - Unspecified abdominal pain Plan I did discuss regarding the patient's updated MRI that did show discitis osteomyelitis at the T9-T10 level as well as osteomyelitis however was not active at the T11-T12 level although that may be playing a role in his pain. We did discuss the possibility of injections in future however with the possibility that there may be active infection I did discuss that I would like to wait until after he is seen the specialist and confirmed there is no active issue. Patient agrees with this plan of care. I did discuss with him with his chronic pain and history of cancer that I do believe it would be very beneficial for him to try the gabapentin as well as would be beneficial to still try the fentanyl patches again as that may significantly improve his pain. Patient was counseled that he can apply these patches outside of his low back and that it may adhere better in a different location that does not have as much perspiration. Patient was counseled to make sure that he cleanses the skin and make sure it is completely dry before attaching the patch. I did also discuss with the patient that if he still has concerns or questions to go back and talk to his provider who prescribed these for additional advice. Patient does state that he will see that provider coming up in 1 month. We will continue to monitor this. I will send in a prescription of lidocaine 5% patches. Patient will return to clinic in 1 month for reevaluation of symptoms and plan of care. Patient has been instructed to contact the clinic with any concerns before the next appointment. Dr. Dasilva has reviewed this note and agrees with this plan of care. This note was dictated using voice recognition software and make contain errors or omissions. All injections are used with Lidocaine, Bupivacaine and dexamethasone. Occasionally urine drug screen is needed to verify patient's compliance with our office pain contract. This is ordered based off specific treatments related to chronic pain with the potential to abuse certain medications.
== END 2024-10-27 23:59 | disposition home or self-care (01) ==
PROVIDERS: PCP Family Medicine; Visit Provider Nurse Practitioner Family
DX: M54.50 Low back pain, unspecified (principal); R10.9 Unspecified abdominal pain
CPT/HCPCS: 99212; G0463

== ENCOUNTER 2024-12-16 09:08 | Outpatient (CLI) | payer OTHER, SELFPAY ==
--- OUTSIDE RECORDS SUMMARY | 2024-10-13 10:00 | XMS_ITS ---
Author Organization [facility] Address [address] [facility] [address] [place] [phone] Care Team Providers Care Quality Control Lab Technician Name Role Phone Carson Ibrahim Primary Care [...] growth Performing Lab: Notes/Report: Test performed by [employer] [address] [place] [address] , [address], [place] [address] Calos Chacon MD, Heel Sewer CLIA: [id number] Specimen Source Urine - Void Culture, Urine [...] Encounter Location Date Provider Diagnosis [facility] [facility] [address] [facility] [address] [place] [phone] 10/13/2024 Carson Ibrahim Acute UTI N39.0 and [...] Up: prn, Reason: Provider Name:Carson Esteban ry, 12/23/2024 09:45:00 AM, [address] [facility] [address] [facility], [address], [place], [phone], Progress Notes * RAYMOND DANIELSPELONOB:1975 (49 yo M)Acc No.[id number]:10/13/2024 Progress Notes Patient: PERRY JOHNSON Provider: Mila Ibrahim M.D. :1975 A ge:49 Y S ex:Male Date:10/13/2024 Address:[address] [place], [place] [phone] Subjective: * Chief Complaints: * 1 . [...] stic Procedure: k idney stone surgery , [facility] - UTI 11/08/2018, [facility] - Neck Surgery 10/13-. * Family [...] Procedure Codes: 8 1002 Urinalysis, no micro, [address] GLYCATED HEMOGLOBIN TEST, Modifiers: QW , 3044F HG A1C LEVEL LT 7.0% * Follow Up: p rn * Images: Billing Information: * Visit Code: 76275 Office Visit, Est Pt., Level 3. * Procedure Codes: 80671 Urinalysis, no micro. [address]85 GLYCATED HEMOGLOBIN TEST. Modifiers: QW 3044F HG A1C LEVEL LT 7.0%. * Electronic signature of Alia Ibrahim MD on 12/16/2024 at 09:12 AM EDT Sign off status: Pending * Provider: Mila Ibrahim M.D. Date: 0 10/13/2024 Generated for Scotti ng/Fadalig/eTransmitting on: 0 12/16/2024 09:12 AM EDT
--- OUTSIDE RECORDS SUMMARY | 2024-10-18 14:45 | XMS_ITS | Encounter Summary ---
Author Organization [facility] Address [address] [place] [id number] Care Team Providers Care Pitching Coach Name Role Phone Carson Ibrahim MD Primary Care Provider [phone] Imer Sevilla MD Unavailable Viky Menon MD Unavailable [phone] Amelia Freeman RN Unavailable Unavailable Reason for Referral * Imaging (Routine) - Pending Review Specialty Diagnoses / Procedures Referred By Kameron t Referred To Contact Radiology Diagnoses Squamous cell carcinoma, lip Procedures CT Soft Tissue Neck w IV Contrast Adilene Ha MD [address] [facility] [address] [place] [address] Phone: tel: fax: Referral ID Status Reason Start Date Expiration Date V isits Requested Visits Authorized [id number] Pending Review 10/18/2024 04/19/2026 1 1 * Imaging (Routine) - Pending Review Specialty Diagnoses / Procedures Referred By Kameron santana Referred To Contact Radiology Diagnoses Squamous cell carcinoma, lip Procedures CT Chest w IV Contrast Adilene Ha MD [address] [facility] [address] [place] [address] Phone: tel: fax: Referral ID Status Reason Start Date Expiration Date V isits Requested Visits Authorized [id number] Pending Review 10/18/2024 04/19/2026 1 1 * Consultation (Urgent) - Closed Specialty Diagnoses / Procedures Referred By Contmartin t Referred To Contact Infectious Diseases Diagnoses Osteomyelitis of spine (CMS/HCC) Adilene Ha MD [address] [place] [address] [address] Phone: tel: fax: Referral ID Status Reason Start Date Expiration Date V isits Requested Visits Authorized [id number] Closed Specialty Services Required 10/18/2024 04/19/2026 1 1 Scheduling Instructions Patient known to Dr. Johnson Reason for Visit * Reason Comments Follow-up Encounter Details Date Type Department Care Team (Latest Contact Info) Description 10/18/2024 2:45 PM EDT Office Visit [facility] [address] [place] [address], 2nd [place] [address] Adilene Ha MD [address] [facility] Cancer [address] [address] Osteomyelitis of spine (CMS/HCC) (Primary Dx); Squamous cell carcinoma, lip; [...] in a chcf (including now)? No 01/08/2024 PHQ-9 Answer Date [...] the past 12 m [facility], were you homeless or living in [...] drink first t idalia in the morning (EYE-SNUFF PACKING MACHINE OPERATOR) to steady your nerves or to get rid of a hangover? 0 07/22/2024 CAGE Questionnaire Score 0 025 Utilities Answer Date Recorded In the past 12 months has th [employer], gas, oil, or water company threatened to [...] Sign Reading Time Taken Comments Blood Pressure 98/66 10/18/2024 2:32 PM EDT Pulse 79 10/18/2024 2:32 PM EDT Temperature 36.4 C (97.5 F) 10/18/2024 2:32 PM EDT Respiratory Rate 16 10/18/2024 2:32 PM EDT Oxygen Saturation 98% 10/18/2024 2:32 PM EDT Inhaled Oxygen Concentration - - Weight 87 kg (191 lb 12.8 oz) 10/18/2024 2:32 PM EDT Height 177.8 cm (5' 10 ) 10/18/2024 2:32 PM EDT Body Mass Index 27.52 10/18/2024 2:32 PM EDT documented in this encounter Miscellaneous Notes * Progress Notes - Adilene Ha MD - 10/18/2024 2:45 PM EDT Chief Complaint Patient presents with Follow-up [...] assess hypermetabolic activity seen on PET-CT scan. 10/18/2024: Presents to clinic for follow up to discuss MRI results. Notes continued intermittent back pain without any extremity weakness. His height is 1.778 m (5' 10 ) and weight is 87 kg (191 lb 12.8 oz). His oral temperature is 36.4 ??C (97.5 ??F). His blood pressure is 98/66 and his pulse is 79. His respiration is 16 and oxygen saturation is 98%. Past Medical History[1] Oncology History Overview Note His oncologic history is as follows: History of early stage left lower lip cancer in 2019, resected by Dr. Meyers. In 2019, he developed a left neck mass, and underwent a thyroidectomy and neck dissection with post-operative chemotherapy given by Mitch by Dr. Cruz and radiation therapy given in [place]. CT Neck and Face 12-10-23 CT face [...] H&N A1A4 03/26/2024-03/26/2024 200 cGy 0 / 200 cGy Reference Points Delivered Verification 03/26/2024-03/26/2024 [...] Anthropometrics: Wt Readings from Last 3 Encounters: 10/18/24 87 kg (191 lb 12.8 oz) 10/11/24 86 kg (189 lb 9.5 oz) 10/06/24 86 kg (189 lb 9.5 oz) Ht Readings from Last 1 Encounters: 10/18/24 1.778 m (5' 10 ) BMI Readings from Last 1 Encounters: 10/18/24 27.52 kg/m?? Biochemical: Lab Results Component Value Date [...] I did not feel any enlarged lymphadenopathy. Incisions well-healed with extensive radiation changes and scarring Eyes: Extraocular movements are intact bilaterally. PERRLA. [...] tobacco cessation: Not Applicable Diagnosis Plan 1. Osteomyelitis of spine ([facility]) Ambulatory referral to Infectious Disease 2. Squamous cell carcinoma, lip Clinic Appointment Request Follow up; ADILENE HA 3. Malignant neoplasm of external lower lip Clinic Appointment Request Follow up; ADILENE HA 4. Dysphagia, oropharyngeal Clinic Appointment Request Follow up; ADILENE HA MRI Spine (10/11/2024): MPRESSION: 1. Multilevel degenerative disc disease without high-grade cord compression or spinal stenosis. 2. T10-11 discitis/osteomyelitis with adjacent phlegmon extending from upper T9 to lower T12 and with localized epidural phlegmon about the T10-11 level. No discrete abscess. Secondary focal kyphosis. 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 First post treatment PET/CT AURY recurrence but with uptake in the spine. Subsequent MRI demonstrates osteomyelitis without abscess formation. He is already established with ID due to prior septic sternoclavicular joint. Will place urgent ambulatory referral to Dr. Johnson for evaluation and treatment. Follow up with me in2 months with CT neck and chest with contrast for continued surveillance. Digital speech recognition software was used to dictate this note and, despite all efforts to proofread, some dictation errors may occur. If you have any questions, please do not hesitate to contact me. [1] Past Medical History: Diagnosis Date Blood infection hospitalized from 07/01/24 to 07/05/24, UTI, last IV antibiotic 07/15/24, PO antbiotics Congestive heart failure (CHF) ([facility]) Diabetes ([facility]) High blood pressure Lip cancer Morbid obesity ([facility]) 01/07/2024 PONV (postoperative nausea and vomiting) Type 2 diabetes mellitus 01/07/2024 UTI (urinary tract infection) 01/07/2024 documented in this encounter Plan of Treatment Upcoming Encounters Date Type Department Care Team (Late st Contact Info) Description 12/21/2024 10:15 AM EDT Office Visit [facility] [address]nd [place] [address] Kelsey Cerda, DMD [address] [place] [address] 02/10/2025 10:00 AM EST Office Visit [facility] [address] [facility] [place] [address] Abel Johnson MD [address] [facility] [address] [place] [address] 03/10/2025 10:00 AM EST Appointment [facility] Radiology [address] [place] [address] 03/10/2025 1:15 PM EST Clinical Support [facility] Res[facility] [address] [facility], 2nd [place] [address] 03/10/2025 2:00 PM EST Appointment [facility] Radiation [address] [facility]. [address] [place] [address] Imer Sevilla MD [address] [facility] [address] [place] [address] 03/14/2025 3:40 PM EST Office Visit [facility] [address] [facility], 2nd [place] [address] Viky Menon MD [address] [facility] [address] [place] [address] Scheduled Orders Name Type Priority Associated Diagnoses Orde r Schedule CT Chest w IV Contrast Imaging Routine Squamous cell carcinoma, lip Expected: 12/19/2024 (Approximate), Expires: 04/21/2026 CT Soft Tissue Neck w IV Contrast Imaging Routine Squamous cell carcinoma, lip Expected: 12/19/2024 (Approximate), Expires: 04/21/2026 Scheduled Procedures Name Priority Associated Diagnoses Date/Ti me WEDGE RESECTION, TRANSVERSE, LIP, WITH PRIMARY CLOSURE Squamous cell carcinoma, lip DILATION, ESOPHAGUS Squamous cell carcinoma, lip Scheduled Referrals Name Type Priority Associated Diagnoses Order Schedule Ambulatory referral to Infectious Disease Outpatient Referral Routine Osteomyelitis of spine (CMS/HCC) Expected: 10/18/2024 (Approximate), Expires: 04/21/2026 documented as of this encounter Visit Diagnoses Diagnosis Osteomyelitis of spine (CMS/HCC)- Primary Unspecified osteomyelitis, other specified site Squamous cell carcinoma, lip Other malignant neoplasm [...] has been complete d for the patient 10/18/2024 2:30 PM EDT A Body Mass Index follow-up plan has been documented for the patient 09/16/2024 9:46 AM EDT documented as of this encounter Care Teams Pitching Coach Relationship Specialty Start Date End Date Carson Ibrahim MD [address] [address] PCP - General 11/20/23 Imer Sevilla MD 800 [facility] [address] [place] [address] Consulting Physician Radiation Oncology 02/27/24 Viky Menon MD [address] [facility] [address] [place] [address] Consulting Physician Medical Oncology 04/21/24 Amelia Freeman, RN Registered Nurse Hematology and Oncology 05/13/24 documented as of this encounter
--- OUTSIDE RECORDS SUMMARY | 2024-10-19 06:15 | XMS_ITS ---
Author Organization [facility] Address [address] [facility] [address] [id number] Care Team Providers Care Mold Unloader Name Role Phone Carson Ibrahim Primary Care Provider [phone] Allergies Allergen (clinical drug ingredient) Drug/Non Drug Allergy documented on EMR Reaction Allergy Type Onset Date Status Penicillin Rash Drug Allergy Active REASON FOR VISIT back pain Medications Medication SIG (Take, Route, Fr equency, Duration) Notes Start Date End Date Status Carvedilol 6.25 MG 1 tablet with food O rally Twice a day Active oxyCODONE HCl 10 MG 1 tablet as needed O rally every 6 hrs Active Vital Signs Weight 187 lbs 10/19/2024 Blood pressure systolic 110 mm Hg 10/20/19 25 Blood pressure diastolic 70 mm Hg 025 Heart Rate 72 /min 10/19/2024 Height 69.5 in 10/19/2024 BMI 27.22 kg/m2 10/19/2024 Encounters Encounter Location Date Provider Diagnosis [facility] [address] [place] [id number] 10/19/2024 Carson Ibrahim Thoracic discitis M46.44 and Pain in thoracic spine M54.6 Assessments Encounter Date Diagnosis (ICD Code) Assessment Notes Treatment Notes Treatment Clinical Notes Section Notes 10/19/2024 Thoracic discitis (ICD-10 - M46.44) Patient has appointment with [facility] infectious disease doctor in 2 days 10/19/2024 Pain in thoracic spine (ICD-10 - M54.6) Plan Of Treatment Treatment Notes Assessment Notes Thoracic discitis Patient has appointm ent with infectious disease doctor in 2 days Next Appt Details Follow Up: via phone to repo rt progress, Reason: Provider Name:Carson Esteban ry, 12/23/2024 09:45:00 AM, [address], [place], [place], [id number], Progress Notes * NOE DANIELSOB:1975 (49 yo M)Acc No.[id number]:10/19/2024 Progress Notes Patient: PERRY JOHNSON Provider: Mila Ibrahim M.D. :1975 A ge:49 Y S ex:Male Date:10/19/2024 Address:[address] [place] [address], [id number] Subjective: * Chief Complaints: * 1 . Back pain. * HPI: M id Back: 49 year old male presents with c/o Left Side P t complains of back pain on the lt side of his back in the middle. Pt states he had an MRI last week and was given results yesterday. Pt states he was dx with infection and will see Infectious Disease on 10/21. * ROS: D ERMATOLOGY: no R elaine. [...] k idney stone surgery , [facility] ER - UTI 11/08/2018, [facility] - Neck Surgery 10/13-. * Family History: F ather: 62 yrs, diagnosed with Heart Disease. M other: alive, diagnosed with Mental Illness. S ibana: alive, family history unknown . Dago sanchez: alive. 1 sister(s) . 3 son(s) - healthy. . COPD,. * Social History: C URRENT TOBACCO USE S moking Status: P atient does NOT smoke, F ormer Smoker:?Yes, Q uit smoking: a ge 25 started smoking at age 15. * Medications: T aking oxyCODONE HCl 10 MG Tablet 1 tablet as needed Orally every 6 hrs , Taking Carvedilol 6.25 MG Tablet 1 tablet with food Orally Twice a day , Discontinued Macrobid 100 MG Capsule 1 capsule with food Orally every 12 hrs , Medication List reviewed and reconciled with the patient * Allergies: P enicillin: Rash. Objective: * Vitals: W t: 187, Temp: 98.0, BP: 110/70, HR: 72, Nurse: jovanny, Ht: 69.5, BMI:27.22. * Examination: G eneral Examination: General Appearance: N AD. T spine MRI report from reviewed with patient. Assessment: * Assessment: 1. T horacic discitis - M46.44 (Primary) 2 . P ain in thoracic spine - M54.6 Plan: * Treatment: * Procedure Codes: 1 036F TOBACCO NON-USER, 3074F SYST BP LT 130 MM HG, 3078F DIAST BP < 80 MM HG * Follow Up: v ia phone to report progress * Images: Billing Information: * Visit Code: 93139 Office Visit, Est Pt., Level 3. * Procedure Codes: 1036F TOBACCO NON-USER. 3074F SYST BP LT 130 MM HG. 3078F DIAST BP < 80 MM HG. * Electronic signature of Alia Ibrahim MD on 12/16/2024 at 09:12 AM EDT Sign off status: Pending * Provider: Mila Ibrahim M.D. Date: 10/19/2024 Generated for Cristhian louis/Constanza/Dipakitting on: 0 12/16/2024 09:12 AM EDT History and Physical Notes * HPI (History of Present Illness) Category Sub-Category Detail Notes Category Not es Mid Back Left Side Pt complains of back pain on the lt side of his back in the middle. Pt states he had an MRI last week and was given results yesterday. Pt states he was dx with infection and will see Infectious Disease on 10/21 Examination Category Sub-Category Detail Notes Category Not es General Examination General Appearance: NAD T spine MRI report from [facility] reviewed with patient.
--- OUTSIDE RECORDS SUMMARY | 2024-10-21 08:30 | XMS_ITS | Encounter Summary ---
Author Organization [facility] Address [address] [place] [address] Care Team Providers Care Card Cutter Name Role Phone Carson Ibrahim MD Primary Care Provider + [phone] Imer Sevilla MD Unavailable Viky Menon MD Unavailable [phone] Amelia Freeman RN Unavailable Unavailable Reason for Referral * Imaging (Routine) - Closed Specialty Diagnoses / Procedures Referred By Contac t Referred To Contact Radiology Diagnoses Osteomyelitis of thoracic spine (CMS/HCC) MRSA bacteremia Lumbar back pain Procedures MR Lumbar Spine w and wo IV Contrast Brittney Johnson MD [address] [place] [phone] Phone: tel: fax: Referral ID Status Reason Start Date Expiration Date Visits Re quested Visits Authorized [id number] Closed 10/21/2024 04/22/2026 1 1 * Consultation (Routine) - Closed Specialty Diagnoses / Procedures Referred By Contac t Referred To Contact Diagnoses Osteomyelitis of thoracic spine (CMS/HCC) Brittney Johnson MD [address] [place] [phone] Phone: tel: fax: Referral ID Status Reason Start Date Expiration Date Visits Re quested Visits Authorized [id number] Closed 10/21/2024 04/22/2026 1 1 Reason for Visit * Consultation (Urgent) - Closed Specialty Diagnoses / Procedures Referred By Contmartin t Referred To Contact Infectious Diseases Diagnoses Osteomyelitis of spine (CMS/HCC) Matias Eldridge MD [address] [facility] [address] [address] Phone: tel: fax: Referral ID Status Reason Start Date Expiration Date V isits Requested Visits Authorized [id number] Closed Specialty Services Required 10/18/2024 04/19/2026 1 1 Encounter Details Date Type Department Care Team (Late st Contact Info) Description 10/21/2024 8:30 AM EDT Office Visit [facility] [address] [place] [address] Brittney Johnson MD [address] [facility] [address] [place] [address] Osteomyelitis of thoracic spine ([facility]/HCC) (Primary Dx); MRSA bacteremia; Lumbar back pain Social History Tobacco Use Types Packs/Day Years [...] Date Recorded Patient Health Questionnaire-2 Score 0 10/21/2024 Hunger Vital Sign Answer Date Recorded Within [...] in a half-way (including now)? No 01/08/2024 PHQ-9 Answer Date Recorded Patient Health Questionnaire-9 Score 0 10/21/2024 Housing Stability Vital Sign Answer Preet e [...] drink first t idalia in the morning ([employer]) to steady your nerves or to get [...] Sign Reading Time Taken Comments Blood Pressure 103/69 10/21/2024 8:33 AM EDT Pulse 61 10/21/2024 8:33 AM EDT Temperature 36.7 C (98 F) 10/21/2024 8:33 AM EDT Respiratory Rate 20 10/21/2024 8:33 AM EDT Oxygen Saturation 96% 10/21/2024 8:33 AM EDT Inhaled Oxygen Concentration - - Weight 86.5 kg (190 lb 11.2 oz) 10/21/2024 8:33 AM EDT Height 177.8 cm (5' 10 ) 10/21/2024 8:33 AM EDT Body Mass Index 27.36 10/21/2024 8:33 AM EDT documented in this encounter Functional Status * Over the past 2 weeks, how often have you been bothered by any of the following problems? Question Answer Date of Assessment Author Little interest or pleasure in doing things Not at all 10/21/2024 8:33 AM EDT Burt Whitley Feeling down, depressed, or hopeless Not at all 10/21/2024 8:33 AM EDT Burt Whitley Patient Health Questionnaire-2 Score 0 10/21/2024 8:33 AM EDT Preston Whitley * Question Answer Date of Assessment Author Trouble falling or staying asleep, or sleeping too much Not at all 10/21/2024 8:33 AM EDT Zakia Jones Feeling tired or having little energy Not at all 10/21/2024 8:33 AM EDT Burt Whitley Poor appetite or overeating Not at all 10/21/2024 8: 33 AM EDT Zakia Whitley Feeling bad about yourself - or that you are a failure or have let yourself or your family down Not at all 10/21/2024 8:33 AM EDT Burt Whitley Trouble concentrating on things, such as reading the newspaper or watching television Not at all 10/21/2024 8:33 AM EDT Burt Whitley Moving or speaking so slowly that other people could have noticed? Or the opposite - being so fidgety or restless that you have been moving around a lot more than usual. Not at all 10/21/2024 8:33 AM EDT Zakia Torres Thoughts that you would be better off or hurting yourself in some way Not at all 10/21/2024 8:33 AM EDT Abhishek Whitley Patient Health Questionnaire-9 Score 0 10/21/2024 8:33 AM EDT Preston Whitley documented as of this encounter Miscellaneous Notes * Progress Notes - Brittney Johnson MD - 10/21/2024 8:30 AM EDT Infectious Diseases Outpatient Follow-Up [...] chemotherapy and XRT. Patient recently admitted at [facility] from 07/01 -> 07/08 for MRSA bacteremia, [...] Pt was discharged 07/28 on IV daptomycin and completed a 6-week duration of therapy, ending 09/02/24. Interval history: PET scan from 07/2024 showed intense FDG activity at anterior T10/11 with a subtle new lytic changesand partial height loss, concerning for hematogenous spread of osteomyelitis. Follow up MRI showed T10-11 discitis/osteomyelitis with adjacent phlegmon extending from upper T9 to lower T12 and with localized epidural phlegmon about the T10-11 level. He was re-referred to us for evaluation and treatment of new spinal osteomyelitis. Today he reports significant increase in mid-lumbar pain since the last ID evaluation, which was minimal at the last visit. Pain is continuous and radiates to the left paraspinal area. No current urinary symptoms of note. Of note, he has no symptoms at the thoracic spine region. No consitutional symptoms at present. He did receive a spinal injection (? Steroid) locally given the increasing lumbarback pain a few weeks prior. ROS 14 point review of symptoms negative except as documented in the HPI. Objective Vitals: 10/21/24 0833 BP: 103/69 Pulse: 61 Resp: 20 Temp: 36.7 ??C (98 ??F) SpO2: 96% Physical Exam Constitutional: General: He is not in acute distress. Appearance: Normal appearance. He is not ill-appearing. HENT: Head: Normocephalic and atraumatic. Mouth/Throat: Mouth: Mucous membranes are moist. Eyes: General: No scleral icterus. Right eye: No discharge. Left eye: No discharge. Conjunctiva/sclera: Conjunctivae normal. Cardiovascular: Rate and Rhythm: Normal rate and regular rhythm. Abdominal: General: Bowel sounds are normal. Palpations: [...] Clinical correlation and joint aspiration is recommended. MR THORACIC SPINE W AND WO IV CONTRAST 10/11/24 IMPRESSION: 1. Multilevel degenerative disc disease without high-grade cord compression or spinal stenosis. 2. T10-11 discitis/osteomyelitis with adjacent phlegmon extending from upper T9 to lower T12 and with localized epidural phlegmon about the T10-11 level. No discrete abscess. Secondary focal kyphosis. Assessment/Plan Henny Daniels Jr. is a 49 [...] and XRT and was recently admitted at [facility] from 07/01 -> 07/08 for MRSA bacteremia, where he notes left clavicle/shoulder pain first started. Thereafter admitted to [facility] for further management after a 07/21 CT Chest showed concern for left clavicular head OM, and adjacent potential septic arthritis/soft tissue infection. Ultimately discharged on IV daptomycin to complete a 6-week duration of therapy. He tolerated IV antibiotics well with essentially resolution of left shoulder/clavicle pain after course of therapy. Interval MRI T-spine (10/11/24) obtained as follow-up on PET findings (08/11/24) shows evidence of discitis/OM of T10-11 with adjacent phlegmon from T9-T12; epidural phlegmon T10-11. Exam today revealsno overlying tenderness to the region. He separately has mid-lumbar pain which is worse than baseline over the last 6-8 weeks. Problem List - New T10-T11 discitis/osteomyelitis with adjacent phlegmon - Left supraclavicular joint septic arthritis, adjacent osteomyelitis - Recent MRSA bloodstream infection - History of neck SCC Plan - Unclear if the phlegmon and spine findings represent resolving infection given pt has previously completed 6 weeks of MRSA coverage, which would be appropriate for spinal OM, especially given the absence of localized exam findings. However, the FDG avidity and the MR findings do warrant further workup - Discussed that a spine biopsy would be the most appropriate next step. Will place an IR referral for evaluation - Orders for routine, fungal and AFB tissue cultures placed - Discussed that the mid-lumbar pain is potentially a separate process, however give the acute increase in pain over the last few weeks, would recommend an MR lumbar spine w/wo contrast to further evaluate. Orders placed today - Will check a baseline CBC/diff, CMP, CRP - Red flag symptoms reviewed Return to clinic in 4 weeks Brittney Johnson MD documented in this encounter Plan of Treatment Upcoming Encounters Date Type Department Care Team (Late st Contact Info) Description 12/21/2024 10:15 AM EDT Office Visit [facility] [address] [place] [address] Kelsey Cerda, DMD [address] [place] [address] 02/10/2025 10:00 AM EST Office Visit [facility] [address] [facility] [place] [address] Brittney Johnson MD [address] [facility] [address] [place] [address] 03/10/2025 10:00 AM EST Appointment [facility] [address] [place] [phone] 03/10/2025 1:15 PM EST Clinical Support [facility] [address] [facility] [place] [phone] 03/10/2025 2:00 PM EST Appointment [facility] [address] [id number] [place] [phone] Imer Sevilla MD [address] [facility] [address] [place] [phone] 03/14/2025 3:40 PM EST Office Visit [facility] [address] [facility] [place] [phone] Viky Menon MD [address] [facility] [address] [place] [phone] Pending Results Name Type Priority Associated Diagnoses Date /Time AFB Culture, Non Repiratory Source and Acid Fast Stain Microbiology Routine Osteomyelitis of thoracic spine (CMS/HCC) 11/09/2024 4:35 PM EDT Scheduled Procedures Name Priority Associated Diagnoses Date/Ti me WEDGE RESECTION, TRANSVERSE, LIP, WITH PRIMARY CLOSURE Squamous cell carcinoma, lip DILATION, ESOPHAGUS Squamous cell carcinoma, lip Scheduled Referrals Name Type Priority Associated Diagnoses Orde r Schedule Follow Up ID Outpatient Referral Routine Osteomyelitis of thoracic spine (CMS/HCC) Expected: 11/18/2024, Expires: 11/21/2025 documented as of this encounter Results * Fungal Culture, Tissue and JESUS (11/09/2024 4:35 PM EDT) Culture Reading Mycological 4 Weeks No Fungal Growth at 4 Weeks 12/07/2024 8:28 AM EDT [facility] JESUS No fungal elements seen 12/07/2024 8:28 AM EDT [facility] Tissue Tissue specimen / Unknown Non-blood Collection / Unknown 11/09/2024 4:35 PM EDT 11/09/2024 5:17 PM EDT us Brittney Johnson MD LAB MICROBIOLOGY - GENERAL ORDERABLES Final Result Performing Organization Address City/[facility]/ZIP [place] [address] * Tissue Culture and Gram Stain (11/09/2024 4:35 PM EDT) Culture No growth at day 4 2024 6:11 AM EDT [facility] Gram Stain Result Rare Polymorphonuclear leukocytes 11/13/2024 6:11 AM EDT [facility] Gram Stain Result No organisms seen 11/13/2024 6:11 AM EDT [facility] Tissue Tissue specimen / Unknown Non-blood Collection / Unknown 11/09/2024 4:35 PM EDT 11/09/2024 5:17 PM EDT us Brittney Johnson MD LAB MICROBIOLOGY - GENERAL ORDERABLES Final Result Performing Organization Address City/[facility]/[place]IP [place] [address] * MR Lumbar Spine w and wo IV Contrast (11/01/2024 9:55 AM EDT) Anatomical Region Laterality Modality L-spine Magnetic Resonan ce Impressions 11/01/2024 9:42 PM EDT 1. Probable infection in the L4-L5 articular facets. Superior and inferior articular facets appear irregular and probably destroyed. Inflammatory appearing soft tissue fills the L4-L5 foramen. 2. Large disc extrusion on the left at L5-S1 resulting in severe foraminal stenosis and mass-effect on the left S1 nerve root Christina Lewis M.D. This report has been electronically signed and verified by the Radiologist whose name is printed above. This report contains privileged and confidential information and is intended solely for the use of the individual or entity to which it is addressed. If you are not the intended recipient of this report, you are hereby notified that any copying, distribution, dissemination or action taken in relation to the contents of this report is strictly prohibited and may be unlawful. If you have received this report in error, please notify the sender immediately at [phone] and permanently delete the original report and destroy any copies or printouts. Narrative 11/01/2024 9:42 PM EDT [facility] - Phone Outpatient NAME: Henny Daniels Jr DATE OF EXAM: 11/01/2024 Patient No: [id number] Physician: Alex^Brittney Date of : 1975 Past Medical/Surgical History (entered by technologist): Symptoms/Reason For Exam (entered by technologist): Low back pain, symptoms persist with > 6 wks treatment Tech Notes (entered by technologist): gadobutrol (Gadavist) injection 8.6 mL given IV via rt forearm; Dx: Osteomyelitis of thoracic spine; MRSA bacteremia; Lumbar back pain. 10/21/24...49 y.o. male presenting for ID follow-up. 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 Additional History (per [facility]): Low back pain, history of osteomyelitis of the thoracic spine Examination: MRI lumbar spine without and with IV contrast Technique: Multiplanar MR images were obtained through the lumbar spine without and with IV contrast Gadavist 8.6 mL administered intravenously Images obtained on 1.5 T magnet Comparison: Prior lumbar spine CT 06-29-2024 FINDINGS: Severe T2 hyperintensity around the left L3-L4 and L4-L5 articular facets with abnormal enhancement, especially at L4-L5. The changes are excessive for inflammatory facet degenerative change and given thoracic osteomyelitis a facet infection is favored. Inflammatory appearing soft tissue fills the L4-L5 and L5-S1 neural foramen around the exiting left L4 and L5 nerve roots. Vertebral body heights are normal. There is intervertebral disc space narrowing at T12-L1 and L5-S1. Abnormal T2 hyperintensity again seen in the T11 vertebral body. Conus appears normal. T12-L1: Left foraminal stenosis from disc protrusion. L1-L2 and L2-L3: Normal. L3-L4: Left foraminal protrusion with mass-effect on the foraminal left L3 nerve root. No lateral recess stenosis. L4-L5: Moderate central spinal stenosis from diffuse disc protrusion and facet and ligamentum arthropathy. Severe left foraminal stenosis from inflammatory and probably infectious debris extending into the foramen. L5-S1: Large disc extrusion eccentric to the left side with marked mass-effect on the left S1 nerve root. Extrusion extends into the caudal neural foramen. Severe left foraminal stenosis. Periarticular enhancement on the right at L3-L4 and L4-L5. Periarticular enhancement is not as severe as on the left at L4-L5. Procedure Note Marleny Lewis MD - 11/01/2024 [facility] - Phone Outpatient NAME: Henny Daniels Jr DATE OF EXAM: 11/01/2024 Patient No: [id number] Physician: Carlita Date of : 1975 Past Medical/Surgical History (entered by technologist): Symptoms/Reason For Exam (entered by technologist): Low back pain,symptoms persist with > 6 wks treatment Tech Notes (entered by technologist): gadobutrol (Gadavist) injection 8.6mL given IV via rt forearm; Dx: Osteomyelitis of thoracic spine; MRSAbacteremia; Lumbar back pain. 10/21/24...49 y.o. male presenting for IDfollow-up. 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 Additional History (per [facility]): Low back pain, history ofosteomyelitis of the thoracic spine Examination: MRI lumbar spine without and with IV contrast Technique: Multiplanar MR images were obtained through the lumbar spinewithout and with IV contrast Gadavist 8.6 mL administered intravenously Images obtained on 1.5 T magnet Comparison: Prior lumbar spine CT 06-29-2024 FINDINGS: Severe T2 hyperintensity around the left L3-L4 and L4-L5 articular facetswith abnormal enhancement, especially at L4-L5. The changes are excessive for inflammatory facet degenerative change andgiven thoracic osteomyelitis a facet infection is favored. Inflammatory appearing soft tissue fills the L4-L5 and L5-S1 neuralforamen around the exiting left L4 and L5 nerve roots. Vertebral body heights are normal. There is intervertebral disc space narrowing at T12-L1 and L5-S1. Abnormal T2 hyperintensity again seen in the T11 vertebral body. Conus appears normal. T12-L1: Left foraminal stenosis from disc protrusion. L1-L2 and L2-L3: Normal. L3-L4: Left foraminal protrusion with mass-effect on the foraminal left [id number] root. No lateral recess stenosis. L4-L5: Moderate central spinal stenosis from diffuse disc protrusion andfacet and ligamentum arthropathy. Severe left foraminal stenosis from inflammatory and probably infectiousdebris extending into the foramen. L5-S1: Large disc extrusion eccentric to the left side with markedmass-effect on the left S1 nerve root. Extrusion extends into the caudalneural foramen. Severe left foraminal stenosis. Periarticular enhancement on the right at L3-L4 and L4-L5. Periarticularenhancement is not as severe as on the left at L4-L5. IMPRESSION: 1. Probable infection in the L4-L5 articular facets. Superior andinferior articular facets appear irregular and probably destroyed. Inflammatory appearing soft tissue fills the L4-L5 foramen. 2. Large disc extrusion on the left at L5-S1 resulting in severeforaminal stenosis and mass-effect on the left S1 nerve root Christina Lewis M.D. This report has been electronically signed and verified by the Radiologistwhose name is printed above. This report contains privileged and confidential information and isintended solely for the use of the individual or entity to which it isaddressed. If you are not the intended recipient of this report, you arehereby notified that any copying, distribution, dissemination or actiontaken in relation to the contents of this report is strictly prohibitedand may be unlawful. If you have received this report in error, pleasenotify the sender immediately at [phone] and permanently delete theoriginal report and destroy any copies or printouts. Brittney Johnson MD IMG MRI PROCEDURES Final Result * (ABNORMAL) C-reactive protein (10/21/2024 9:26 AM EDT) CRP, Plasma 36.2(H) <=8.0 mg/L 10/21/2024 1:07 PM EDT [facility] Blood Venous blood specimen / Unknown Venipuncture / Unknown 10/21/2024 9:26 AM EDT 10/21/2024 9:29 AM EDT Narrative [facility] - 10/21/2024 1:07 PM EDT This CRP test is appropriate for assessment of infection, systemic inflammation and/or tissue injury. To assess cardiovascular disease risk order high sensitivity CRP (CRPH). us Brittney Johnson MD LAB BLOOD ORDERABLE S Final Result [facility] [address] [place] [address] * (ABNORMAL) Comprehensive Metabolic Panel, Plasma (10/21/2024 9:26 AM EDT) Glucose, Plasma 95 74 - 99 mg/dL 10/21/2024 1:07 PM EDT [facility] BUN, Plasma 19 7 - 21 mg/dL 10/21/2024 1:07 PM EDT [facility] Creatinine, Plasma 0.92 0.70 - 1.20 mg/dL 10/21/2024 1:07 PM EDT [facility] BUN/Creatinine Ratio 21 10/21/2024 1:07 PM EDT [facility] Sodium, Plasma 135(L) 136 - 145 mmol/L 10/21/2024 1:07 PM EDT [facility] Potassium, Plasma 4.5 3.6 - 4.9 mmol/L 10/21/2024 1:07 PM EDT [facility] Chloride, Plasma 98 97 - 107 mmol/L 10/21/2024 1:07 PM EDT [facility] CO2, Plasma 25 22 - 29 mmol/L 10/21/2024 1:07 PM EDT [facility] Anion Gap 12 6 - 16 mmol/L 10/21/2024 1:07 PM EDT [facility] Total Calcium, Plasma 9.7 8.9 - 10.2 mg/dL 10/21/2024 1:07 PM EDT [facility] Total Protein 7.8 6.3 - 7.9 g/dL 10/21/2024 1:07 PM EDT [facility] Albumin, Plasma 3.6 3.5 - 5.2 g/dL 10/21/2024 1:07 PM EDT [facility] AST, Plasma 15 10 - 50 U/L 10/21/2024 1:07 PM EDT [facility] ALT, Plasma 7(L) 10 - 50 U/L 10/21/2024 1:07 PM EDT [facility] Alkaline Phosphatase, Plasma 87 40 - 115 U/L 10/21/2024 1:07 PM EDT [facility] Total Bilirubin, Plasma 0.5 0.2 - 1.1 mg/dL 10/21/2024 1:07 PM EDT [facility] eGFRcr 101.3 mL/min/1.7 3m*2 10/21/2024 1:07 PM EDT [facility] Comment:Reported eGFRcr in m L/min/1.73m2 is based the CKD-EPI 2020 equation that does not use a race coefficient. Blood Venous blood specimen / Unknown Venipuncture / Unknown 10/21/2024 9:26 AM EDT 10/21/2024 9:29 AM EDT Brittney Johnson MD LAB BLOOD ORDERABLE S Final Result [facility] [address] [place] [address] * (ABNORMAL) CBC and Differential (10/21/2024 9:26 AM EDT) WBC Count 6.05 3.70 - 10.30 10*3/uL LAB HEMATOLOGY METHOD 10/21/2024 12:51 PM EDT [facility] RBC Count 4.45(L) 4.60 - 6.10 10*6/uL LAB HEMATOLOGY METHOD 10/21/2024 12:51 PM EDT [facility] HGB 12.3(L) 13.7 - 17.5 g/dL LAB HEMATOLOGY METHOD 10/21/2024 12:51 PM EDT [facility] HCT 38.2(L) 40.0 - 51.0 % LAB HEMATOLOGY METHOD 10/21/2024 12:51 PM EDT [facility] Platelet Count 349 155 - 369 10*3/uL LAB HEMATOLOGY METHOD 10/21/2024 12:51 PM EDT [facility] MCV 86 79 - 98 fL LAB HEMATOLOGY METHOD 10/21/2024 12:51 PM EDT [facility] MCH 27.6 26.0 - 32.0 pg LAB HEMATOLOGY METHOD 10/21/2024 12:51 PM EDT [facility] MCHC 32.2 30.7 - 35.5 g/dL LAB HEMATOLOGY METHOD 10/21/2024 12:51 PM EDT [facility] RDW 13.4 11.5 - 14.5 % LAB HEMATOLOGY METHOD 10/21/2024 12:51 PM EDT [facility] MPV 10.5 8.8 - 12.5 fL LAB HEMATOLOGY METHOD 10/21/2024 12:51 PM EDT [facility] nRBC 0.0 <=0.0 per 100 WBCs LAB HEMATOLOGY METHOD 10/21/2024 12:51 PM EDT [facility] Differential Type Automated LAB HEMATOLOGY METHOD 10/21/2024 12:51 PM EDT [facility] Neutrophils % 65 % LAB HEMATOLOGY METHOD 10/21/2024 12:51 PM EDT [facility] Lymphocytes % 20 % LAB HEMATOLOGY METHOD 10/21/2024 12:51 PM EDT [facility] Monocytes % 11 % LAB HEMATOLOGY METHOD 10/21/2024 12:51 PM EDT [facility] Eosinophils % 3 % LAB HEMATOLOGY METHOD 10/21/2024 12:51 PM EDT [facility] Basophils % 1 % LAB HEMATOLOGY METHOD 10/21/2024 12:51 PM EDT [facility] Immature Granulocytes % 0 % LAB HEMATOLOGY METHOD 10/21/2024 12:51 PM EDT [facility] Neutrophils Absolute 3.93 1.60 - 6.10 10*3/uL LAB HEMATOLOGY METHOD 10/21/2024 12:51 PM EDT [facility] Lymphocytes Absolute 1.22 1.20 - 3.90 10*3/uL LAB HEMATOLOGY METHOD 10/21/2024 12:51 PM EDT [facility] Monocytes Absolute 0.64 0.30 - 0.90 10*3/uL LAB HEMATOLOGY METHOD 10/21/2024 12:51 PM EDT [facility] Eosinophils Absolute 0.18 0.00 - 0.50 10*3/uL LAB HEMATOLOGY METHOD 10/21/2024 12:51 PM EDT [facility] Basophils Absolute 0.06 0.00 - 0.10 10*3/uL LAB HEMATOLOGY METHOD 10/21/2024 12:51 PM EDT [facility] Immature Granulocytes Absolute 0.02 0.00 - 0.06 10*3/uL LAB HEMATOLOGY METHOD 10/21/2024 12:51 PM EDT [facility] Blood Venous blood specimen / Unknown Venipuncture / Unknown 10/21/2024 9:26 AM EDT 10/21/2024 9:29 AM EDT [facility] - 10/21/2024 12:51 PM EDT Therapeutic decision making should be based on absolute values, rather than percentages. Brittney Johnson MD LAB BLOOD ORDERABLE S Final Result [facility] [address] [place] [address] documented in this encounter Visit Diagnoses Diagnosis Osteomyelitis of thoracic spine (CMS/HCC)- Primary MRSA bacteremia Lumbar back pain Lumbago Osteomyelitis of thoracic spine (CMS/HCC) MRSA bacteremia Lumbar back pain Lumbago documented in this encounter Additional Health Concerns Infection Onset Date 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 02/19/2024 C. difficile 10/20/2024 10/20/2024 11/09/2024 1:06 PM EDT Assessment Noted Time PHQ-9 Depression Total Score: 0 10/22/19 8:33 AM EDT A fall risk assessment has been complete d for the patient 10/18/2024 2:30 PM EDT A Body Mass Index follow-up plan has been documented for the patient 10/21/2024 9:09 AM EDT documented as of this encounter Care Teams Card Cutter Relationship Specialty Start Date End Date Carson Ibrahim MD [address] [place] [id number] PCP - General 11/20/23 Imer Sevilla MD [address] [facility] [address] [place] [address] Consulting Physician Radiation Oncology 02/27/24 Viky Menon MD 800 [facility] Liz [address] [facility] [address] [place] [address] Consulting Physician Medical Oncology 04/21/24 Amelia Freeman, RN Registered Nurse Hematology and Oncology 05/13/24 documented as of this encounter
--- OUTSIDE RECORDS SUMMARY | 2024-10-22 10:15 | XMS_ITS | Encounter Summary ---
Author Organization Healthcare Address [address] [place] [address] Care Team Providers Care Botany Laboratory Assistant Name Role Phone Carson Ibrahim MD Primary Care Provider + [phone] Imer Sevilla MD Unavailable Viky Menon MD Unavailable +[phone] Amelia Freeman RN Unavailable Unavailable Encounter Details Date Type Department Care Team (Late st Contact Info) Description 10/22/2024 10:15 AM EDT [facility] [address] [place] [address] Kelsey Cerda, DMD [address] [place] [address] Edentulism (Primary Dx) Social History [...] Answer Date Recorded Patient Health Questionnaire-2 Score 2 11/05/2024 Hunger Vital Sign Answer Date Recorded Within [...] Answer Date Recorded Patient Health Questionnaire-9 Score 9 11/05/2024 Housing Stability Vital Sign Answer Preet e [...] drink first t idalia in the morning (EYE-DRIER OPERATOR HELPER) to steady your nerves or to get rid of a hangover? 0 07/22/2024 CAGE Questionnaire Score 0 025 Utilities Answer Date Recorded In the past [address] [employer], gas, oil, or water [employer] threatened to shut off services in your [...] Index - - documented in this encounter Functional Status * Over the past 2 weeks, how often have you been bothered by any of the following problems? Question Answer Date of Assessment Author Little interest or pleasure in doing things Several days 11/05/2024 8:08 AM Bettie Barnes Feeling down, depressed, or hopeless Several days 11/05/2024 8:08 AM Bettie Barnes Patient Health Questionnaire -2 Score 2 11/05/2024 8:08 AM Bettie Barnes * Question Answer Date of Assessment Author Trouble falling or staying asleep, or sleeping too much Several days 11/05/2024 8:08 AM Bettie Barnes Feeling tired or having maricruz le energy Several days 11/05/2024 8:08 AM Bettie Barnes Poor appetite or overeating Several days 11/05/2024 8: 08 AM Bettie Barnes Feeling bad about yourself - or that you are a failure or have let yourself or your family down Several days 11/05/2024 8:08 AM Bettie Barnes Trouble concentrating on things, such as reading the newspaper or watching television Several days 11/05/2024 8:08 AM SHANIT Bettie Wayne Moving or speaking so slowly that other people could have noticed? Or the opposite - being so fidgety or restless that you have been moving around a lot more than usual. Several days 11/05/2024 8:08 AM Bettie Barnes Thoughts that you would be better off or hurting yourself in some way Several days 11/05/2024 8:08 AM Bettie Barens Patient Health Questionnaire -9 Score 9 11/05/2024 8:08 AM Bettie Barnes * Calculated C-SSRS Risk Score (Lifetime/Recent) Answer Date of Assessment Author No Risk Indicated 11/09/2024 1:45 PM EDT Perfecto Reyes * How difficult have these problems made it for you to do your work, take care of things at home, or get along with other people? Answer Date of Assessment Author Somewhat difficult 11/05/2024 8:08 AM EDT Bettie Olivera * How difficult have these problems made it for you to do your work, take care of things at home, or get along with other people? Answer Date of Assessment Author Somewhat difficult 11/05/2024 8:08 AM Bettie Toledo * Question Answer Date of Assessment Author 1. Wish to be (Past 1 Month) No 025 1:45 PM EDT Charmaine Reyes 2. Non-Specific Active Suici luis m Thoughts (Past 1 Month) No 11/09/2024 1:45 PM EDT Charmaine Reyes 6. Suicidal Behavior (Lifetime) No 5 1:45 PM EDT Charmaine Reyes documented as of this encounter Miscellaneous Notes [...] Description 12/21/2024 10:15 AM EDT [facility] [address] [place] [address] Kelsey Cerda, DMD [address] [facility] [address] [place] [address] 02/10/2025 10:00 AM EST Office Visit [facility] [address] [facility] [place] [address] Abel Johnson MD [address] [facility] [address] [place] [address] 03/10/2025 10:00 AM EST Appointment [facility] Radiology [address] [place] [phone] 03/10/2025 1:15 PM EST Clinical Support [facility] Res[facility] [address] [facility], 2nd [place] [address] 03/10/2025 2:00 PM EST Appointment [facility] Radiation [address] [facility]. [id number] [place] [address] Imer Sevilla MD [address] [facility] [address] [place] [address] 03/14/2025 3:40 PM EST Office Visit [facility] [address] [facility], 2nd [place] [address] Viky Menon MD [address] [facility] [address] [place] [address] Scheduled Procedures Name Priority Associated Diagnoses Date/Ti me WEDGE RESECTION, TRANSVERSE, LIP, WITH PRIMARY CLOSURE Squamous cell carcinoma, lip DILATION, ESOPHAGUS Squamous cell carcinoma, lip documented as of this encounter Procedures Procedure Name Priority Date/Time Associated Diagnosis Comments DENTAL LAB Routine 11/10/2024 9:17 AM EDT Edentulism COMPLETE DENTURE -MANDIBULAR- IN PROCESS Routine 10/22/2024 10:15 AM EDT Edentulism COMPLETE DENTURE - MAXILLARY IN PROCESS Routine 10/22/2024 10:15 AM EDT Edentulism documented in this encounter Results * DENTAL LAB (11/10/2024 9:17 AM EDT) Lobato 120.00 $ Comment:Triple Velma Inv# [phone] us Kelsey Cerda DMD DENTAL LAB ORDERABLES Final Result documented in this encounter Visit [...] documented as of this encounter Care Teams Botany Laboratory Assistant Relationship Specialty Start Date End Date Carson Ibrahim MD [facility] [address] [id number] PCP - General 11/20/23 Imer Sevilla MD [address] [facility] [address] [place] [address] Consulting Physician Radiation Oncology 02/27/24 Viky Menon MD [address] [place] [address] Consulting Physician Medical Oncology 04/21/24 Amelia Freeman RN Registered Nurse Hematology and Oncology 05/13/24 documented as of this encounter
--- OUTSIDE RECORDS SUMMARY | 2024-11-01 08:35 | XMS_ITS | Encounter Summary ---
Author Organization Healthcare Address [address] 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 Name Role Phone Carson Ibrahim MD Primary Care Provider + [phone] Imer Sevilla MD Unavailable Viky Menon MD Unavailable [phone] Amelia Freeman RN Unavailable Unavailable Reason for Referral * Imaging (Routine) - Closed Specialty Diagnoses / Procedures Referred By Contac t Referred To Contact Radiology Diagnoses Osteomyelitis of thoracic spine (CMS/HCC) MRSA bacteremia Lumbar back pain Procedures MR Lumbar Spine w and wo IV Contrast Brittney Johnson MD [address] [place] [address] Phone: tel: fax: Referral ID Status Reason Start Date Expiration Date Visits Re quested Visits Authorized [id number] Closed 10/21/2024 04/22/2026 1 1 Reason for Visit * Imaging (Routine) - Closed Specialty Diagnoses / Procedures Referred By Contac t Referred To Contact Radiology Diagnoses Osteomyelitis of thoracic spine (CMS/HCC) MRSA bacteremia Lumbar back pain Procedures MR Lumbar Spine w and wo IV Contrast Brittney Johnson MD [address] [place] [phone] Phone: tel: fax: Referral ID Status Reason Start Date Expiration Date Visits Re quested Visits Authorized [id number] Closed 10/21/2024 04/22/2026 1 1 Encounter Details Date Type Department Care Team (Latest Contact Info) Description 11/01/2024 8:35 AM EDT - 11/01/2024 11:59 PM EDT Hospital Encounter [facility] [address] [place] [address] Osteomyelitis of thoracic spine (CMS/HCC); MRSA bacteremia; Lumbar back pain Discharge Disposition: Home or Self Care Social [...] first t idalia in the morning ([employer]) to steady your nerves or to get [...] problems? Question Answer Date of Assessment Author Peace interest or pleasure in doing things Several [...] watching television Several days 11/05/2024 8:08 AM Bettie Barnes Moving or speaking so slowly that other people could have noticed? Or the opposite - being so fidgety or restless that you have been moving around a lot more than usual. Several days 11/05/2024 8:08 AM Bettie Barnes Thoughts that you would be better off or hurting yourself in some way Several days 11/05/2024 8:08 AM Bettie Barnes Patient Health Questionnaire -9 Score 9 11/05/2024 8:08 AM Bettie Barnes * How difficult have these problems made it for you to do your work, take care of things at home, or get along with other people? Answer Date of Assessment Author Somewhat difficult 11/05/2024 8:08 AM Bettie Toledo * How difficult have these problems made it for you to do your work, take care of things at home, or get along with other people? Answer Date of Assessment Author Somewhat difficult 11/05/2024 8:08 AM Bettie Toledo documented as of this encounter Medications at Time of Discharge acetaminophen (Tylenol) 500 MG tablet Take 2 tablets by mouth every 6 hours as needed for pain. carvedilol (Coreg) 6.25 MG tablet every 12 hours. nitrofurantoin, macrocrystal-monohyd rate, (Macrobid) 100 MG capsule 10/13/2024 traZODone (Desyrel) 100 MG tablet Take 1 tablet by mouth nightly. fentaNYL (Duragesic) 50 MCG/HR Place 1 patch on the skin every 3rd day over 72 hours. 10 patch 10/22/2024 5 amantadine (Symmetrel) 100 MG tablet 09/20/2024 5 cyclobenzaprine (Flexeril) 5 MG tablet Take 1 tablet by mouth 3 times a day as needed for muscle spasms. 5 diclofenac (Voltaren) 1 % topical gel Place on the skin 2 times a day. Apply as directed to the chest at the area of pain 50 g 2 08/12/2024 5 famotidine (Pepcid) 20 MG tablet Take 1 tablet by mouth at night as needed for heartburn. 5 gabapentin (Neurontin) 600 MG tablet Take 1 tablet by mouth 3 times a day. 90 tablet 2 10/22/2024 5 methocarbamol (Robaxin) 500 MG tablet TAKE 2 TABLETS BY MOUTH EVERY 8 HOURS NEEDED FOR MUSCLE PAIN AND SPASM 06/30/2024 5 metoprolol succinate XL (Toprol-XL) 25 MG 24 hr tablet Take 1 tablet by mouth daily. Do not crush or chew. 90 tablet 3 07/28/2024 5 metroNIDAZOLE (Flagyl) 500 MG tablet 07/05/2024 5 Multiple Vitamin (multivitamin) tablet Take 1 tablet by mouth daily. 5 ondansetron ODT (Zofran-ODT) 8 MG disintegrating tablet Take 1 tablet (8 mg) by mouth every 8 hours as needed for nausea or vomiting. 30 tablet 3 05/13/2024 5 oxyCODONE (Roxicodone) 10 MG immediate release tablet Take 1-2 tablets by mouth every 4 hours as needed for severe pain (g89.3). 180 tablet 10/22/2024 5 polyethylene glycol (Miralax) 17 GM/SCOOP powder Take 17 g by mouth daily as needed (constipation) . 510 g 3 09/02/2024 5 sodium chloride 0.9 % solution 07/05/2024 5 vancomycin (Vancocin) 10 g reconstituted solution 07/05/2024 5 documented as of this encounter Plan of Treatment Upcoming Encounters Date Type Department Care Team (Late st Contact Info) Description 12/21/2024 10:15 AM EDT Office Visit [facility] [address] [place] [address] Kelsey Cerda, DMD [address] [place] [address] 02/10/2025 10:00 AM EST Office Visit [facility] [address] [facility] [place] [address] Brittney Johnson MD [address] [facility] [address] [place] [address] 03/10/2025 10:00 AM EST Appointment [facility] [address] [place] [phone] 03/10/2025 1:15 PM EST [facility] Support [facility] [address] [place] [phone] 03/10/2025 2:00 PM EST Appointment [facility] [address] [place] [phone] Imer Sevilla MD [address] [place] [phone] 03/14/2025 3:40 PM EST Office Visit [facility] [address] [place] [phone] Viky Menon MD [address] [facility] [address] [facility] [address] [place] [phone] Scheduled Procedures Name Priority Associated Diagnoses Date/Ti me WEDGE RESECTION, TRANSVERSE, LIP, WITH PRIMARY CLOSURE Squamous cell carcinoma, lip DILATION, ESOPHAGUS Squamous cell carcinoma, lip documented as of this encounter Procedures Procedure Name Priority Date/Time Associated Diagnosis Comments MR LUMBAR SPINE W AND WO IV CONTRAST Routine 11/01/2024 9:55 AM EDT Osteomyelitis of thoracic spine (CMS/HCC) MRSA bacteremia Lumbar back pain documented in this encounter Results * MR Lumbar Spine w and wo [...] error, please notify the sender immediately at [phone] and permanently delete the original report and destroy any copies or printouts. Narrative 11/01/2024 9:42 PM EDT [facility] - Phone Outpatient NAME: Henny Daniels Jr DATE OF EXAM: 11/01/2024 Patient No: [id number] Physician: Carlita Date of : 1975 Past [...] Jr DATE OF EXAM: 11/01/2024 Patient No: [id number] Physician: Alex^Brittney Date of : 1975 Past [...] protrusion with mass-effect on the foraminal left F6llrph root. No lateral recess stenosis. L4-L5: Moderate [...] in error, pleasenotify the sender immediately at [phone] and permanently delete theoriginal report and destroy any copies or printouts. Brittney Johnson MD [facility] PROCEDURES Final Result documented in this encounter Visit Diagnoses Diagnosis Osteomyelitis of thoracic spine (CMS/HCC) MRSA bacteremia Lumbar back pain Lumbago documented in this encounter Administered Medications Inactive Administered Medications - up to 3 most recent administrations Medication Order MAR Action Action Date Dose Rate Site gadobutrol (Gadavist) injection 8.6 mL 8.6 mL (rounded from 8.62 mL = 0.1 mL/kg 86.2 kg), Intravenous, Once in imaging, 1 dose, Starting on Fri11/01/24 at 0939, Until Fri11/01/24 at 0941, Routine, Imaging Protocol Orders Given 11/01/2024 9:41 AM EDT 8.6 mL Ri ght Forearm documented in this encounter Additional Health [...] documented as of this encounter Care Teams 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
--- OUTSIDE RECORDS SUMMARY | 2024-11-02 07:30 | XMS_ITS ---
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 Name Role Phone Carson Ibrahim Primary Care Provider [phone] Allergies Allergen (clinical drug ingredient) Drug/Non Drug Allergy documented on EMR Reaction Allergy Type Onset Date Status Penicillin Rash Drug Allergy Active REASON FOR VISIT pain on left side, tests Medications Medication SIG (Take, Route, Fr equency, Duration) Notes Start Date End Date Status Carvedilol 6.25 MG 1 tablet with food O rally Twice a day Active oxyCODONE HCl 10 MG 1 tablet as needed O rally every 6 hrs Active Vital Signs Weight 189 lbs 11/02/2024 Blood pressure systolic 104 mm Hg 11/03/19 25 Blood pressure diastolic 70 mm Hg 025 Heart Rate 74 /min 11/02/2024 Height 69.5 in 11/02/2024 BMI 27.51 kg/m2 11/02/2024 Encounters Encounter Location Date Provider Diagnosis [facility] [address] [place] [phone] 11/02/2024 Carson Ibrahim Other chronic pain G89.29 ; Low back pain, unspecified M54.50 ; Abnormal MRI, lumbar spine R93.7 and BMI 27.0-27.9,adult Z68.27 Assessments Encounter Date Diagnosis (ICD Code) Assessment Notes Treatment Notes Treatment Clinical Notes Section Notes 11/02/2024 Other chronic pain (ICD-10 - G89.29) 11/02/2024 Low back pain, unspecified (ICD-10 - M54.50) 11/02/2024 Abnormal MRI, lumbar spine (ICD-10 - R93.7) Patient to follow with NOEMY Fleming at , by phone today. He has appt. at on 11/05/24 11/02/2024 BMI 27.0-27.9,adult (ICD-10 - Z68.27) Plan Of Treatment Treatment Notes Assessment Notes Abnormal MRI, lumbar spine Patient to [facility] with NOEMY Fleming at , by phone today. He has appt. at on 11/05/24 Next Appt Details Follow Up: 2 Months, Reason: Provider Name:Carson Esteban ry, 12/23/2024 09:45:00 AM, [address] [facility], [address], [place], [place], [id number], Progress Notes * NOE DANIELSOB:1975 (49 yo M)Acc No.[id number]:11/02/2024 Progress Notes Patient: PERRY JOHNSON Provider: Mila Ibrahim M.D. :1975 A ge:49 Y S ex:Male Date:11/02/2024 Address:[address] [place], [place] [phone] Subjective: * Chief Complaints: * 1 . Pain on left side, tests. * HPI: L ower back: 49 year old male presents with c/o Low Back Pain P t complains of ongoing, constant l ower lt back pain. Pt states he had MRI yesterday at , results printed . * ROS: D ERMATOLOGY: no R [...] Heart Failure, Dx: 2024. * Surgical History: Aiyana crow stone removal , umbilical hernia repair , Kidney Stone Removal 03/12/2019, LT Lower Lip Squamous Cell Carcinoma Removal 10/2018, LT Salivary Gland Squamous Cell Carcinoma 10/14/2019. * Hospitalization/Major Diagno stic Procedure: aiyana crow stone surgery , [facility] - UTI 11/08/2018, [facility] - Neck Surgery 10/13-. * Family History: F ather: 62 yrs, diagnosed with Heart Disease. M other: alive, diagnosed with Mental Illness. S iblings: alive, family history unknown . Dago sanchez: [...] enicillin: Rash. Objective: * Vitals: W t: 189, Temp: 97.9, BP: 104/70, HR: 74, Nurse: kk, Ht: 69.5, BMI:27.51. * Examination: G eneral Examination: General Appearance: N AD. B ack: s tands and moves slowly due to pain. Assessment: * Assessment: 1. L ow back pain, unspecified - M54.50 (Primary) 2 . O ther chronic pain - G89.29 3 . A bnormal MRI, lumbar spine - R93.7 4 . B NH 27.0-27.9,adult - Z68.27 Plan: * Treatment: * Procedure Codes: 1 036F TOBACCO NON-USER, 3074F SYST BP LT 130 MM HG, 3078F DIAST BP < 80 MM HG * Follow Up: 2 Months * Images: Billing Information: * Visit Code: 26335 Office Visit, Est Pt., Level 3. * Procedure Codes: 1036F TOBACCO NON-USER. 3074F SYST BP LT 130 MM HG. 3078F DIAST BP < 80 MM HG. * Electronic signature of Alia Ibrahim MD on 12/16/2024 at 09:12 AM EDT Sign off status: Pending * Provider: Mila Ibrahim M.D. Date: 0 11/02/2024 Generated for Cristhian louis/Constanza/[place]ina on: 0 12/16/2024 09:12 AM EDT History and Physical Notes * HPI (History of Present Illness) Category Sub-Category Detail Notes Category Not es Lower back Low Back Pain Pt complains of ongoing, constant lower lt back pain. Pt states he had MRI yesterday at , results printed Examination Category Sub-Category Detail Notes Category Not es General Examination General Appearance: NAD Back: stands and moves slo wly due to pain
--- OUTSIDE RECORDS SUMMARY | 2024-11-05 08:00 | XMS_ITS | Encounter Summary ---
Author Organization Healthcare Address [address] [place] [address] Care Team Providers Care Digital Commentator Name Role Phone Carson Ibrahim MD Primary Care Provider + [phone] Imer Sevilla MD Unavailable Vkiy Menon MD Unavailable [phone] Amelia Freeman RN Unavailable Unavailable Reason for Visit * Reason Comments Consult Encounter Details Date Type Department Care Team (Latest Contact Info) Description 11/05/2024 8:00 AM EDT Office Visit [facility] Vascular Interventional Radiology [address] [place] [address] Tessa Rockwell, TWO NEEDLE MACHINE OPERATOR [address] [place] [address] Arthritis due to other bacteria, left shoulder (CMS/HCC) (Primary Dx) Social History Tobacco Use [...] time in the past 12 m [facility], were you homeless or living in [...] drink first t idalia in the morning ([employer]) to steady your nerves or to get rid of a hangover? 0 07/22/2024 CAGE Questionnaire Score 0 025 Utilities Answer Date Recorded In the past 12 months has e [employer], gas, oil, or water [employer] threatened to shut off services in your home? No 07/28/2024 Sex and Gender Information Value Date Recorded Sex Assigned at Male 01/06/2024 6:14 AM EDT Legal Sex Male 7:47 PM EDT Gender Identity Male 01/06/2024 6:14 AM EDT Sexual Orientation Not on file documented as of this encounter Last Filed Vital Signs Vital Sign Reading Time Taken Comments Blood Pressure 87/55 11/05/2024 8:03 AM EDT Pulse 51 11/05/2024 8:12 AM EDT Temperature 36.1 C (97 F) 11/05/2024 8:03 AM EDT Respiratory Rate - - Oxygen Saturation 97% 11/05/2024 8:03 AM EDT Inhaled Oxygen Concentration - - Weight 86.2 kg (190 lb 0.6 oz) 11/05/2024 8:03 A M EDT Height 177.8 cm (5' 10 ) 11/05/2024 8:03 AM EDT Body Mass Index 27.27 11/05/2024 8:03 AM EDT documented in this encounter Functional Status * Over the past 2 weeks, how often have you been bothered by any of the following problems? Question Answer Date of Assessment Author Little interest or pleasure in doing things Several days 11/05/2024 8:08 AM EDT Bettie Wayne Feeling down, depressed, or hopeless Several days 11/05/2024 8:08 AM EDT Bettie Wayne Patient Health Questionnaire -2 Score 2 11/05/2024 8:08 AM EDT Bettie Wayne * Question Answer Date of Assessment Author [...] Bettie Toledo documented as of this encounter Miscellaneous Notes * H&P - Tessa Rockwell, KEVYN - 11/05/2024 8:00 AM EDT Images from the original note were not included. Hennypenny Daniels Jr. presents today for consultation as requested by MD Alex regarding assessment of bone lesion. Subjective History of Present Illness: HPI Henny Daniels Jr. is a 49 y.o. 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 He is being evaluated for concern of ongoing OM/discitis involving T10-T11. 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 Patient recently admitted at [facility] from 07/01 - 07/08 for MRSA bacteremia, secondary to left SCJ septic arthritis with adjacent OM. On 07/26/[address]-guided aspiration of the left sternoclavicular joint, cultures negative. He was discharged 07/28/24 on IV daptomycin and completed a 6- week duration of therapy, ending 09/02/24. Of not, he had a PET/CT on 08/11/24 that demonstrated evidence of discitis/OM of T10-11 with adjacent phlegmon from T9-T12; epidural phlegmon T10-11. Subsequent MR t-spine also demonstrating evidence of discitis/OM of T10-11. He has been followed by ID. They are requesting biopsy of T10-T11 discas patient has completed course of 6 weeks of MRSA coverage. Patient is presenting today to be evaluated prior to bone biopsy. He is alert, appropriate, and pleasant. He is on room air. He is nontoxic and views. He denies acute symptoms such as fever, abdominal pain, chest pain, shortness of breath. He is having some back pain more associated within the lumbar region. Able to ambulate independently. Allergies: Penicillins Medications: Current Medications[1] Past Surgical History: Henny has a past surgical history that includes Kidney stone surgery; Hernia repair (1999); Other surgical history (2018); Salivary gland surgery; and oral surgery (Left, 01/06/2024). Past Medical History: He has a past medical history of Blood infection, Congestive heart failure (CHF) ([facility]), Diabetes (CMS/[facility]), High blood pressure, Lip cancer, Morbid obesity (CMS/HCC) (01/07/2024), PONV (postoperative nausea and vomiting), Type 2 diabetes mellitus (01/07/2024), and UTI (urinary tract infection) (01/07/2024). He has no past medical history of Malignant hyperthermia or Pseudocholinesterase deficiency. Past Family History: Hisfamily history includes Brain cancer in his cousin; Cancer in an other family member; Lung cancer in his father's brother and mother; Stomach cancer in his mother's brother. Past Social History: He reports that he has never smoked. He has never been exposed to tobacco smoke. He has never used smokeless tobacco. He reports current alcohol use. He reports that he does not use drugs. Review of Systems: Review of Systems 14 point ROS negative except for above. Objective Physical Exam: There were no vitals filed for this visit. Physical Exam Visit Vitals BP 87/55 Pulse 51 Temp (!) 36.1 ??C (97 ??F) (Temporal) Ht 1.778 m (5' 10 ) Wt 86.2 kg (190 lb 0.6 oz) SpO2 97% BMI 27.27 kg/m?? Smoking Status Never BSA 2.06 m?? General Appearance: Alert, cooperative, no distress, appears stated age Head: Normocephalic, without obvious abnormality, atraumatic Eyes: PERRL, conjunctiva/corneas clear, EOM's intact, fundi benign, both eyes Ears: Normal TM's and external ear canals, both ears Nose: Nares normal, septum midline, mucosa normal, no drainage or sinus tenderness Throat: Lips, mucosa, and tongue normal; teeth and gums normal Neck: Supple, symmetrical, trachea midline, no adenopathy; thyroid: No enlargement/tenderness/nodules; no carotid bruit or JVD Back: Symmetric, no curvature, ROM normal, no CVA tenderness Lungs: Clear to auscultation bilaterally, respirations unlabored Chest wall: No tenderness or deformity Heart: Regular rate and rhythm, S1 and S2 normal, no murmur, rub or gallop Abdomen: Soft, non-tender, bowel sounds active all four quadrants, no masses, no organomegaly Extremities: Extremities normal, atraumatic, no cyanosis or edema Pulses: 2+ and symmetric all extremities Skin: Skin color, texture, turgor normal, no rashes or lesions Lymph nodes: Cervical, supraclavicular, and axillary nodes normal Neurologic: CNII-XII intact. Normal strength, sensation and reflexes throughout Imaging: MR Lumbar Spine w and wo IV Contrast Narrative: [facility] - Phone Outpatient NAME: Henny Daniels Jr DATE OF EXAM: 11/01/2024 Patient No: [id number] Physician: Alex^[id number]-Lsbgor Date of : 1975 Past Medical/Surgical History (entered by technologist): Symptoms/Reason For Exam (entered by technologist): Low back pain, symptoms persist with > 6 wkstreatment Tech Notes (entered by technologist): gadobutrol (Gadavist) [...] and L5-S1 neural foramen around the exiting leftL4 and L5 nerve roots. Vertebral body heights [...] with marked mass-effect on the left S1 nerveroot. Extrusion extends into the caudal neural foramen. Severe left foraminal stenosis. Periarticular enhancement on the right at L3-L4 and L4-L5. Periarticular enhancement is not as severe as on the left at L4-L5. Impression: 1. Probable infection in the L4-L5 articular facets. Superior and inferior articular facets appear irregular and probably destroyed. Inflammatory appearing soft tissue fills the L4-L5 foramen. 2. Large disc extrusion on the left at L5-S1 resulting in severe foraminal stenosis and mass-effecton the left S1 nerve root Christina Lewis [...] error, please notify the sender immediately at [phone] and permanently delete theoriginal report and destroy any copies or printouts. Labs: Labs in chart were reviewed. Lab Results Component Value Date WBC 6.05 10/21/2024 HGB 12.3 (L) 10/21/2024 HCT 38.2 (L) 10/21/2024 PLT 349 10/21/2024 Lab Results Component Value Date NA 135 (L) 10/21/2024 K 4.5 10/21/2024 CL 98 10/21/2024 CO2 25 10/21/2024 BUN 19 10/21/2024 CREATININE 0.92 10/21/2024 GLUCOSE 95 10/21/2024 Lab Results Component Value Date CALCIUM 9.7 10/21/2024 MG 1.8 (L) 05/13/2024 PHOS 1.8 (L) 02/23/2024 Lab Results Component Value Date AST 15 10/21/2024 ALT 7 (L) 10/21/2024 ALKPHOS 87 10/21/2024 No results found for: APTT , INR Assessment/Plan Concern for T10-T11 OM/discitis SCJ septic arthritis Hx of MRSA bacteremia Hx of Neck SCCa Locally advanced recurrent lip cancer -2019: SCCa of lip [s/p resection]. 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 -Lost to follow up --> Found to have disease with submandibular area when presenting during 2023. -01/06/24: s/p composite resection of oral cavity with segmental mandibulectomy, left radical neck dissection, right modified neck dissection and superficial parotidectomy with right fibular free flap reconstruction. -06/2024: Admitted with left clavicular/shoulder pain + for MRSA bacteremia with concerns of left SCJ septic arthritis and associated OM. 07/26/24: CT guided joint aspiration --> Cultures negative. Completed 6 weeks of IV daptomycin [completed 09/02/24]. -Personally reviewed PET CT on 08/10/24: Intense FDG activity at anterior T10/11 with a subtle new lytic changes and partial height loss. Intense FDG activity at the left sternoclavicular joint region. -Personally reviewed MR thoracic spine 11/01: T10-11 discitis/osteomyelitis with adjacent phlegmon. -Head and neck surgery following -ID following PLAN -Will perform biopsy of T10-T11 disc on 11/09/24. -Anticoagulation; denies -NPO per protocol. -Will obtain labs and consent today. -We discussed bone biopsy of vertebra. This will be done in the CT scanner, which helps us see exactly where we need to go. This will be completed utilizing local anesthetic and conscious sedation. We will use the CT images to guide a small needle into the bone to take a tissue sample. This sample will be sent to the lab so we can better understand what???s going on and how to treat it. Like any procedure, there are some risks. These include bleeding, infection, and injury to nearby nerves or the spinal cord, which could cause pain, weakness, or numbness. There???s also a small risk of a fracture in the bone we???re sampling, and some risks related to anesthesia, like breathing or heart issues. We???ll take every precaution to keep you safe throughout. Thank you for allowing me to participate in the care of Henny Daniels . Tessa Rockwell APRN Vascular & Interventional Radiology I spent >56 minutes on this encounter; including preparing to see the patient, which involved review/interpretation of diagnostics and reports; obtaining and/or reviewing separately obtained history; performing appropriate physical exam; communicating finding, reviewing labs/imaging, counseling/educating the patient; documentation in EMR; and formulating subsequent treatment plan. [1] Current Outpatient Medications: acetaminophen (Tylenol) 500 MG tablet, Take 2 tablets by mouth every 6 hours as needed for pain. (Patient not taking: Reported on 10/21/2024), Disp: , Rfl: carvedilol (Coreg) 6.25 MG tablet, every 12 hours., Disp: , Rfl: cyclobenzaprine (Flexeril) 5 MG tablet, Take 1 tablet by mouth 3 times a day as needed for muscle spasms. (Patient not taking: Reported on 10/21/2024), Disp: , Rfl: diclofenac (Voltaren) 1 % topical gel, Place on the skin 2 times a day. Apply as directed to the chest at the area of pain (Patient not taking: Reported on 10/21/2024), Disp: 50 g, Rfl: 2 famotidine (Pepcid) 20 MG tablet, Take 1 tablet by mouth at night as needed for heartburn., Disp: ,Rfl: fentaNYL (Duragesic) 50 MCG/HR, Place 1 patch on the skin every 3rd day over 72 hours., Disp: 10 patch, Rfl: 0 gabapentin (Neurontin) 600 MG tablet, Take 1 tablet by mouth 3 times a day., Disp: 90 tablet, Rfl: 2 methocarbamol (Robaxin) 500 MG tablet, TAKE 2 TABLETS BY MOUTH EVERY 8 HOURS NEEDED FOR MUSCLE PAIN AND SPASM (Patient not taking: Reported on 10/21/2024), Disp: , Rfl: metoprolol succinate XL (Toprol-XL) 25 MG 24 hr tablet, Take 1 tablet by mouth daily. Do not crush or chew. (Patient not taking: Reported on 10/21/2024), Disp: 90 tablet, Rfl: 3 metroNIDAZOLE (Flagyl) 500 MG tablet, , Disp: , Rfl: Multiple Vitamin (multivitamin) tablet, Take 1 tablet by mouth daily. (Patient not taking: Reportedon 10/21/2024), Disp: , Rfl: ondansetron ODT (Zofran-ODT) 8 MG disintegrating tablet, Take 1 tablet (8 mg) by mouth every 8 hours as needed for nausea or vomiting. (Patient not taking: Reported on 10/21/2024), Disp: 30 tablet, Rfl: 3 oxyCODONE (Roxicodone) 10 MG immediate release tablet, Take 1-2 tablets by mouth every 4 hours as needed for severe pain (g89.3)., Disp: 180 tablet, Rfl: 0 polyethylene glycol (Miralax) 17 GM/SCOOP powder, Take 17 g by mouth daily as needed (constipation)., Disp: 510 g, Rfl: 3 sodium chloride 0.9 % solution, , Disp: , Rfl: traZODone (Desyrel) 100 MG tablet, Take 1 tablet by mouth nightly. (Patient not taking: Reported on10/21/2024), Disp: , Rfl: vancomycin (Vancocin) 10 g reconstituted solution, , Disp: , Rfl: documented in this encounter Plan of Treatment Upcoming Encounters Date Type Department Care Team (Late st Contact Info) Description 12/21/2024 10:15 AM EDT [facility] [address] [place] [address] Kelsey Cerda, DMD [address] [facility] [address] [place] [address] 02/10/2025 10:00 AM EST Office Visit [facility] [address] [place] [phone] Abel Johnson MD [facility] [address] [place] [address] 03/10/2025 10:00 AM EST Appointment [facility] [address] [place] [phone] 03/10/2025 1:15 PM EST Clinical Support [facility] [address] [facility], [address]nd [place] [phone] 03/10/2025 2:00 PM EST Appointment [facility] Radiation [address] [facility]. [id number] [place] [phone] Imer Sevilla MD [address] [address] 03/14/2025 3:40 PM EST Office Visit [facility] [address] [facility], [address]nd [place] [phone] Viky Menon MD [address] [facility] [address] [facility] [address] [place] [phone] Scheduled Procedures Name Priority Associated Diagnoses Date/Ti me WEDGE RESECTION, TRANSVERSE, LIP, WITH PRIMARY CLOSURE Squamous cell carcinoma, lip DILATION, ESOPHAGUS Squamous cell carcinoma, lip documented as of this encounter Visit Diagnoses Diagnosis Arthritis due to other bacteria, left shoulder (CMS/HCC)- Primary documented in this encounter Additional Health Concerns Infection Onset Date 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 02/19/2024 C. difficile 10/20/2024 10/20/2024 11/09/2024 1:06 PM EDT Assessment Noted Time PHQ-9 Depression Total Score: 9 11/06/19 25 8:08 AM EDT A fall risk assessment has been complete d for the patient 11/05/2024 8:08 AM EDT A Body Mass Index follow-up plan has been documented for the patient 11/05/2024 8:31 AM EDT documented as of this encounter Care Teams Digital Commentator Relationship Specialty Start Date End Date Carson Ibrahim MD [facility] [address] [address] PCP - General 11/20/23 Imer Sevilla MD [address] [phone] Consulting Physician Radiation Oncology 02/27/24 Viky Menon MD [address] [facility] [address] [facility] [address] [place] [address] Consulting Physician Medical Oncology 04/21/24 Amelia Freeman, RN Registered Nurse Hematology and Oncology 05/13/24 documented as of this encounter
--- OUTSIDE RECORDS SUMMARY | 2024-11-09 11:15 | XMS_ITS | Encounter Summary ---
Author Organization Healthcare Address [address] [place] [address] Care Team Providers Care Adult Basic Education Teacher Name Role Phone Carson Ibrahim MD Primary Care Provider + [phone] Imer Sevilla MD Unavailable Viky Menon MD Unavailable [phone] Amelia Freeman RN Unavailable Unavailable Encounter Details Date Type Department Care Team (Late st Contact Info) Description 11/09/2024 11:15 AM EDT Office Visit [facility] [address] [place] [address] Kelsey Cerda, DMD [address] [place] [address] Edentulism (Primary Dx) Social History [...] any time in the past 12 m [facility], were you homeless or [...] first t idalia in the morning ([employer]) to steady your nerves or to get rid of a hangover? 0 07/22/2024 CAGE Questionnaire Score 0 025 Utilities Answer Date Recorded In the past 12 months has th e [employer], gas, oil, or water [employer] threatened to shut off services in your [...] 11/09/2024 1:45 PM EDT Perfecto Reyes * Question Answer Date of Assessment Author [...] Progress Notes - Kelsey Cerda DMD - 11/09/2024 11:15 AM EDT Pt presents for baseplates and occlusion rims for jaw relation records for CD/CD Adjustment made to max wax until adequate lip support and 2-4mm of teeth are showing the smiling. Vicente base plate adjusted and wax adjusted until occlusion was bilaterally balanced in CO and freeway speech was adequate. PVS adhesive added to max base plate and heavy body PVS wash taken Midline marked and ramin mousse bite registration taken. NV: digital try-in of CD/CD documented in this encounter Plan of Treatment Upcoming Encounters Date Type Department Care Team (Late st Contact Info) Description 12/21/2024 10:15 AM EDT Office Visit [facility] [address] [place] [address] Kelsey Cerda, DMD [address] [facility] [address] [place] [address] 02/10/2025 10:00 AM EST Office Visit [facility] [address] [place] [address] Abel Johnson MD [address] [facility] [address] [place] [address] 03/10/2025 10:00 AM EST Appointment [facility] [address] [place] [phone] 03/10/2025 1:15 PM EST Clinical Support [facility] [address] [facility], 2nd [place] [phone] 03/10/2025 2:00 PM EST Appointment [facility] Radiation [address] [facility]. [id number] [place] [phone] Imer Sevilla MD 800 [facility] [address] [place] [phone] 03/14/2025 3:40 PM EST Office Visit [facility] Res[facility] [address] [facility], [address]nd [place] [address] Viky Menon MD 800 [facility] [address] [place] [phone] Scheduled Procedures Name Priority Associated Diagnoses Date/Ti me WEDGE RESECTION, TRANSVERSE, LIP, WITH PRIMARY CLOSURE Squamous cell carcinoma, lip DILATION, ESOPHAGUS Squamous cell carcinoma, lip documented as of this encounter Procedures Procedure Name Priority Date/Time Associated Diagnosis Comments DENTAL LAB Routine 11/29/2024 3:40 PM EDT Edentulism COMPLETE DENTURE - MAXILLARY IN PROCESS Routine 11/09/2024 11:15 AM EDT Edentulism documented in this encounter Results * DENTAL LAB (11/29/2024 3:40 PM EDT) [place] 100.00 $ Comment:[facility] [place] Inv# [phone] Kelsey Cerda DMD DENTAL LAB ORDERABLES Final Result documented in this encounter Visit Diagnoses Diagnosis Edentulism- Primary documented in this encounter Additional Health Concerns Infection Onset Date 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 02/19/2024 C. difficile 10/20/2024 10/20/2024 11/09/2024 1:06 PM EDT Assessment Noted Time PHQ-9 Depression Total Score: 9 11/06/19 8:08 AM EDT A fall risk assessment has been complete d for the patient 11/05/2024 8:08 AM EDT A Body Mass Index follow-up plan has been documented for the patient 11/09/2024 4:58 PM EDT documented as of this encounter Care Teams Adult Basic Education Teacher Relationship Specialty Start Date End Date Carson Ibrahim MD [facility] [place] [phone] PCP - General 11/20/23 Imer Sevilla MD [address] [facility] [address] [place] [phone] Consulting Physician Radiation Oncology 02/27/24 Viky Menon MD [address] [place] [phone] Consulting Physician Medical Oncology 04/21/24 Amelia Freeman, RN Registered Nurse Hematology and Oncology 05/13/24 documented as of this encounter
--- OUTSIDE RECORDS SUMMARY | 2024-11-09 12:51 | XMS_ITS | Encounter Summary ---
Author Organization [facility] Address [address] [place] [address] Care Team Providers Care Yard Labor Supervisor Name Role Phone Carson Ibrahim MD Primary Care Provider + [phone] Imer Sevilla MD Unavailable Viky Menon MD Unavailable [phone] Amelia Freeman RN Unavailable Unavailable Reason for Visit * Imaging (Routine) - Closed Specialty Diagnoses / Procedures Referred By Kameron santana Referred To Contact Radiology Diagnoses Osteomyelitis of thoracic spine (CMS/HCC) MRSA bacteremia Procedures CT Guided Biopsy Muscle CT Guided Biopsy Bone Superficial (Ilium, Sternum, Spinous Process, Rib) Consult to Interventional Radiology Abel Johnson MD [address] [address] Phone: tel: fax: Referral ID Status Reason Start Date Expiration Date Visits Re quested Visits Authorized [id number] Closed 10/21/2024 04/22/2026 1 1 Encounter Details Date Type Department Care Team (Latest Contact Info) Description 11/09/2024 12:51 PM EDT - 11/09/2024 11:59 PM EDT Hospital Encounter [facility] Interventional Radiology [address] [place] [address] Charmaine Reyes Osteomyelitis of thoracic spine (CMS/HCC); MRSA bacteremia Discharge Disposition: Home or Self Care Social [...] drink first t idalia in the morning ([employer]) to steady your nerves or to get rid of a hangover? 0 07/22/2024 CAGE Questionnaire Score 0 025 Utilities Answer Date Recorded In the past 12 months has [employer], [employer], oil, or water [employer] threatened to shut off services in your home? No 07/28/2024 Sex and Gender Information Value Date Recorded Sex Assigned at Male 01/06/2024 6:14 AM EDT Legal Sex Male 7:47 PM EDT Gender Identity Male 01/06/2024 6:14 AM EDT Sexual Orientation Not on file documented as of this encounter Last Filed Vital Signs Vital Sign Reading Time Taken Comments Blood Pressure 126/71 11/09/2024 5:15 PM EDT Pulse 67 11/09/2024 5:30 PM EDT Temperature 36.6 C (97.8 F) 11/09/2024 1:30 PM EDT Respiratory Rate 14 11/09/2024 5:30 PM EDT Oxygen Saturation 96% 11/09/2024 5:30 PM EDT Inhaled Oxygen Concentration - - Weight 85.8 kg (189 lb 2.5 oz) 11/09/2024 1:30 P M EDT Height 177.8 cm (5' 10 ) 11/09/2024 1:30 PM EDT Body Mass Index 27.14 11/09/2024 1:30 PM EDT documented in this encounter Functional Status * Calculated C-SSRS Risk Score (Lifetime/Recent) Answer Date of Assessment Author No Risk Indicated 11/09/2024 1:45 PM EDT AmyPerfecto th * Question Answer Date of Assessment Author 1. Wish to be (Past 1 Month) No 025 1:45 PM EDT Charmaine Reyes 2. Non-Specific Active Suici luis m Thoughts (Past 1 Month) No 11/09/2024 1:45 PM EDT Charmaine Reyes 6. Suicidal Behavior (Lifetime) No 5 1:45 PM EDT Charmaine Reyes documented as of this encounter Medications at Time of Discharge acetaminophen (Tylenol) 500 MG tablet Take 2 tablets by mouth every 6 hours as needed for pain. carvedilol (Coreg) 6.25 MG tablet every 12 hours. lidocaine (Lidoderm) 5 % patch APPLY ONE PATCH TOPICALLY TO CLEAN, DRY SKIN. LEAVE ON FOR 12 HOURS THEN REMOVE. MUST WAIT AT LEAST 12 HOURS BEFORE APPLYING PATCH(ES) AGAIN. 11/05/2024 nitrofurantoin, macrocrystal-monohyd rate, (Macrobid) 100 MG capsule [...] for severe pain (g89.3). 180 tablet 10/22/2024 polyethylene glycol (Miralax) 17 GM/SCOOP powder Take 17 g by mouth daily as needed (constipation) . 510 g 3 09/02/2024 5 sodium chloride 0.9 % solution 07/05/2024 5 vancomycin (Vancocin) 10 g reconstituted solution 07/05/2024 5 documented as of this encounter Miscellaneous Notes * Charmaine Snow - 11/09/2024 4:58 PM EDT Images from the original note were not included. [address] Image-Guided Biopsy A biopsy is a small sample of tissue or fluid taken from your body. This sample is then studied in a lab. Image-guided biopsy lets your healthcare provider take a sample from an abnormal lump (mass) without using surgery. Image-guided biopsies use ultrasound, X-ray, CT scan, or MRI images to find exactly where to place the needle and do the biopsy. This procedure is done by a radiologist. It can also be done by a specially trained healthcare provider called an interventional radiologist. A needle is used to take a sample of tissue from inside the body. Before your procedure ? Tell your healthcare provider about any health conditions you have ? Tell your provider about all medicines you are taking. This includes all prescription and bmyp-hxn-wsamrwu medicines, vitamins, herbs, or supplements. This also includes any illegal drugs. ? Tell your provider if you're allergic to any medicines. ? Tell your provider if you're or think you may be . ? Follow all directions you're given for not eating or drinking before the procedure. ? Follow any other instructions from your provider. During your procedure ? You may be asked to change into a hospital gown and lie on a special table. The table that's usedwill depend on the type of imaging that will guide the biopsy. You may lie on your back, front, or side. Your position depends on where the biopsy is to be done. ? An IV (intravenous) line may be started. This will give you fluids and medicines. You may be given medicine through the IV to help you relax. ? The skin over the biopsy site is cleaned. Medicine will be injected through the skin.to numb the area. ? The radiologist will use CT scan, MRI, X-ray, or ultrasound images as a guide. They'll put a thin, hollow needle through the skin. It will be guided to the area where the biopsy will be done. ? The needle will take a sample of tissue or fluid from the area. The needle is then taken out. Thesample is sent to a lab. It will be checked under a microscope for cells that aren?t normal. After your procedure ? You'll most likely be able to go home either right away or in a few hours. This depends on what area was biopsied. ? You may need to have a friend or family member drive you home. ? Care for the insertion site as directed. Possible risks Possible risks and complications of an image-guided biopsy include: ? Bleeding inside your body ? Bruising or bleeding at the place where the needle was put in ? Damage to body areas along the path of the needle Last Reviewed Date: 2023 00:00:00 ?? [id number]. All rights reserved. This information is not intended as a substitute for professional medical care. Always follow your healthcare professional's instructions. * Post-Procedure Note - Dionte Stone MD - 11/09/2024 2:15 PM EDT Vascular and Interventional Radiology Brief Postprocedure Note Attending: Bertha Pocket Marker: RENARD Pre-operative Diagnosis: diskitis-osteomyelitis Post-operative Diagnosis: same Type of Anesthesia: Conscious Sedation Description of Findings/Technical/Surgical Procedures Used: Tissue bx for cultures at T10-T11 Specimen Obtained: Yes, culture Complications: None Estimated Blood Loss: none Procedure Events Event Event Time Sedation Start 11/09/2024 4:34 PM See detailed result report with images in PACS. The patient tolerated the procedure well without incident or complication and is in stable condition. * Pre-Procedure Note - Modesta Alcaraz DO - 11/09/2024 2:15 PM EDT Images from the original note were not included. INTERVENTIONAL RADIOLOGY SEDATION PRE-PROCEDURAL ASSESSMENT AND PLAN OF CARE Indication for procedure: Diagnoses of Osteomyelitis of thoracic spine (CMS/HCC) and MRSA bacteremia were pertinent to this visit. Planned Procedure: CT guided bone bx Relevant past medical history: None Previous problems with surgery, anesthesia or sedation: No Previous family history or problems with anesthesia or sedation: No History of tobacco use, alcohol use, or substance abuse: Tobacco Use History[1], Social History Substance and Sexual Activity Alcohol Use Yes Comment: social. , Social History Substance and Sexual Activity Drug Use Never Height and Weight: Visit Vitals BP 116/79 Pulse 63 Temp 36.6 ??C (97.8 ??F) (Temporal) Ht 1.778 m (5' 10 ) Wt 85.8 kg (189 lb 2.5 oz) SpO2 97% BMI 27.14 kg/m?? Allergies to medication: Penicillins Current medications: Current Medications[2] Relevant Labs: Lab Results Component Value Date CREATININE 0.79 11/05/2024 EGFR 108.2 11/05/2024 INR 1.1 11/05/2024 Planned Sedation/Anesthesia: Moderate Airway assessment: normal Mallampati Score: II (hard and soft palate, upper portion of tonsils anduvula visible) ASA: ASA 2 - Patient with mild systemic disease with no functional limitations Directed physical examination: Vitals: 11/09/24 1330 BP: 116/79 Pulse: 63 Resp: 13 Temp: 36.6 ??C (97.8 ??F) SpO2: 97% GENERAL: Awake, alert, NAD HEENT: NCAT NECK: No appreciable JVD CARDIAC: Regular rate, regular rhythm, normal S1/S2, no m/r/g, 2+ radial pulses bilaterally PULM: CTAB without increased work of breathing ABD: Soft, NT, ND EXT: Warm and well perfused, no LE edema SKIN: No rashes or lesions NEURO: A&Ox4, moving all extremities spontaneously Benefits, risks and alternatives of procedure and planned sedation have been discussed with the patient and/or their group sales representative. All questions answered and they agree to proceed. [1] Social History Tobacco Use Smoking Status Never Passive exposure: Never Smokeless Tobacco Never [2] Current Outpatient Medications Medication Sig Dispense Refill acetaminophen (Tylenol) 500 MG tablet Take 2 tablets by mouth every 6 hours as needed for pain. carvedilol (Coreg) 6.25 MG tablet every 12 hours. cyclobenzaprine (Flexeril) 5 MG tablet Take 1 tablet by mouth 3 times a day as needed for muscle spasms. fentaNYL (Duragesic) 50 MCG/HR Place 1 patch on the skin every 3rd day over 72 hours. 10 patch 0 oxyCODONE (Roxicodone) 10 MG immediate release tablet Take 1-2 tablets by mouth every 4 hours as needed for severe pain (g89.3). 180 tablet 0 polyethylene glycol (Miralax) 17 GM/SCOOP powder Take 17 g by mouth daily as needed (constipation).510 g 3 diclofenac (Voltaren) 1 % topical gel Place on the skin 2 times a day. Apply as directed to the chest at the area of pain (Patient not taking: No sig reported) 50 g 2 famotidine (Pepcid) 20 MG tablet Take 1 tablet by mouth at night as needed for heartburn. (Patient not taking: Reported on 11/09/2024) gabapentin (Neurontin) 600 MG tablet Take 1 tablet by mouth 3 times a day. (Patient not taking: Reported on 11/05/2024) 90 tablet 2 methocarbamol (Robaxin) 500 MG tablet TAKE 2 TABLETS BY MOUTH EVERY 8 HOURS NEEDED FOR MUSCLE PAIN AND SPASM (Patient not taking: Reported on 11/05/2024) metoprolol succinate XL (Toprol-XL) 25 MG 24 hr tablet Take 1 tablet by mouth daily. Do not crush or chew. (Patient not taking: Reported on 11/05/2024) 90 tablet 3 metroNIDAZOLE (Flagyl) 500 MG tablet (Patient not taking: Reported on 11/05/2024) Multiple Vitamin (multivitamin) tablet Take 1 tablet by mouth daily. (Patient not taking: Reported on 11/05/2024) ondansetron ODT (Zofran-ODT) 8 MG disintegrating tablet Take 1 tablet (8 mg) by mouth every 8 hoursas needed for nausea or vomiting. (Patient not taking: Reported on 11/05/2024) 30 tablet 3 sodium chloride 0.9 % solution (Patient not taking: Reported on 11/05/2024) traZODone (Desyrel) 100 MG tablet Take 1 tablet by mouth nightly. (Patient not taking: Reported on 11/05/2024) vancomycin (Vancocin) 10 g reconstituted solution (Patient not taking: Reported on 11/05/2024) Current Facility-Administered Medications Medication Dose Route Frequency Provider Last Rate Last Admin sodium chloride 0.9 % flush 10 mL 10 mL Intravenous q12h Dionte Stone MD And sodium chloride 0.9 % flush 10 mL 10 mL Intravenous PRN Dionte Stone MD sodium chloride 0.9 % flush 10 mL 10 mL Intravenous q12h Dointe Stone MD And sodium chloride 0.9 % flush 10 mL 10 mL Intravenous PRN Dionte Stone MD * Interval H&P Note - Modesta Alcaraz DO - 11/09/2024 2:15 PM EDT Same and H and P Source Note - Tessa Rockwell APRN - 11/05/2024 8:00 AM EDT Images from the original note were not included. Henny Daniels Jr. presents today for consultation as [...] chemotherapy and XRT. Patient recently admitted at [facility] from 07/01 - 07/08 for MRSA bacteremia, [...] of Blood infection, Congestive heart failure (CHF) ([facility]), Diabetes ([facility]), High blood pressure, Lip cancer, Morbid obesity ([facility]) (01/07/2024), PONV (postoperative nausea and vomiting), Type [...] Jr DATE OF EXAM: 11/01/2024 Patient No: [id number] Physician: Carlita Date of : 1975 Past [...] error, please notify the sender immediately at [phone] and permanently delete theoriginal report and destroy [...] Description 12/21/2024 10:15 AM EDT Office Visit [facility] [address] [place] [address] Kelsey Cerda, DMD [address] [facility] [address] [place] [phone] 02/10/2025 10:00 AM EST Office Visit [facility] [address] [place] [phone] Abel Johnson MD [address] [facility] [address] [place] [phone] 03/10/2025 10:00 AM EST Appointment [facility] Radiology [address] [place] [address] 03/10/2025 1:15 PM EST Clinical Support [facility] [address] [facility]nd [place] [phone] 03/10/2025 2:00 PM EST Appointment [facility] Radiation [address] [id number] [place] [phone] Imer Sevilla MD [address] [facility] [address] [place] [phone] 03/14/2025 3:40 PM EST Office Visit [facility] [address] [facility] [place] [phone] Viky Menon MD [address] [facility] [address] [place] [address] Pending Results Name Type Priority Associated Diagnoses [...] Name Priority Date/Time Associated Diagnosis Comments CT GUIDED BIOPSY MUSCLE Routine 11/09/2024 4:38 PM EDT Osteomyelitis of thoracic spine (CMS/HCC) MRSA bacteremia FUNGAL CULTURE, TISSUE AND JESUS Routine 11/09/2024 4:35 PM EDT Osteomyelitis of thoracic spine (CMS/HCC) AFB CULTURE, NON RESPIRATORY SOURCE AND ACID FAST STAIN Routine 11/09/2024 4:35 PM EDT Osteomyelitis of thoracic spine (CMS/HCC) TISSUE CULTURE AND GRAM STAIN Routine 11/09/2024 4:35 PM EDT Osteomyelitis of thoracic spine (CMS/HCC) documented in this encounter Results * CT Guided Biopsy Muscle (11/09/2024 4:38 PM EDT) Anatomical Region Laterality Modality Computed Tomogra phy Impressions 11/10/2024 8:07 PM EDT Technically successful CT-guided biopsy of T10-T11 paraspinal soft tissue biopsy. PLAN: Routine postbiopsy recovery, follow-up microbiology results in 3-5 days. CRITICAL RESULT: None COMMUNICATION: Per this written report. Drafted by Dionte Stone MD on 11/10/2024 8:05 PM Final report signed by Dionte Stone MD on 11/10/2024 8:07 PM Narrative 11/10/2024 8:07 PM EDT CLINICAL INDICATION: Henny Daniels Jr. is a 49 y.o. [...] chemotherapy and XRT. Patient recently admitted at [facility] from 07/01 - 07/08 for MRSA bacteremia, secondary to left SCJ septic arthritis with adjacent OM. On 07/26/[address]- guided aspiration of the left sternoclavicular joint, cultures negative. He was discharged 07/28/24 on IV daptomycin and completed a 6-week duration of therapy, ending 09/02/24. Of not, he had a PET/CT on 08/11/24 that demonstrated evidence of discitis/OM of T10-11 with adjacent phlegmon from T9-T12; epidural phlegmon T10-11. Subsequent MR t-spine also demonstrating evidence of discitis/OM of T10-11. He has been followed by ID. They are requesting biopsy of T10-T11 disc as patient has completed course of 6 weeks [...] the lumbar region. Able to ambulate independently. TECHNIQUE: Open Shank Coverer: Dionte Stone MD. Medications: IV conscious sedation with continuous physiologic monitoring provided by a qualified healthcare professional using Versed mg IV and Fentanyl dose mcg IV. 1% Lidocaine subcutaneous. Total DLP (Dose-Length Product): 1350.33 mGy.cm mGy-cm Antibiotics: not indicated. Duration of Conscious Sedation: Time out: 1634, close out: 1639. PROCEDURE: CT-GUIDED PARASPINAL SOFT TISSUE BIOPSY: After discussion of risks and benefits, informed written consent was obtained. Appropriate time out was performed to confirm patient identity and planned procedure and side. The patient was placed prone on the CT table and initial scanning carried out. A limited CT was done showing discitis osteomyelitis involving T10-T11 with paravertebral soft tissue extension. The skin overlying the planned tract was prepped and draped, and local anesthetic administered. The T10-T11 paraspinal soft tissue was accessed under CT guidance with a 17G needle and position confirmed. Via the needle several cores were taken with an 18G biopsy device. Once sampling was felt sufficient the needle was removed. Post scanning revealed No complications. A sterile dressing was applied to the puncture site. The patient tolerated the procedure well, and was transferred to the recovery area in good condition. COMPARISON: MRI thoracic spine 10/11/2024 FINDINGS: See procedure details for findings. COMPLICATION: None us Abel Johnson MD IMG CT PROCEDURES E dited Result - Final * Fungal Culture, Tissue and JESUS (11/09/2024 4:35 PM EDT) Culture Reading Mycological 4 Weeks No Fungal Growth at 4 Weeks 12/07/2024 8:28 AM EDT [facility] JESUS No fungal elements seen 12/07/2024 8:28 AM EDT [facility] Tissue Tissue specimen / Unknown Non-blood Collection / Unknown 11/09/2024 4:35 PM EDT 11/09/2024 5:17 PM EDT us Abel Johnson MD LAB MICROBIOLOGY - GENERAL ORDERABLES Final Result [facility] [address] [place] [address] * Tissue Culture and Gram Stain (11/09/2024 4:35 PM EDT) Culture No growth at day 4 2024 6:11 AM EDT [facility] Gram Stain Result Rare Polymorphonuclear leukocytes 11/13/2024 6:11 AM EDT [facility] Gram Stain Result No organisms seen 11/13/2024 6:11 AM EDT [facility] Tissue Tissue specimen / Unknown Non-blood Collection / Unknown 11/09/2024 4:35 PM EDT 11/09/2024 5:17 PM EDT Abel Johnson MD LAB MICROBIOLOGY - GENERAL ORDERABLES Final Result [facility] [address] [place] [address] documented in this encounter Visit Diagnoses Diagnosis Osteomyelitis of thoracic spine (CMS/HCC) MRSA bacteremia documented in this encounter Administered Medications Inactive Administered Medications - up to 3 most recent administrations Medication Order MAR Action Action Date Dose Rate Site fentaNYL (Sublimaze) injection Intravenous, As needed, Starting on Fri11/09/24 at 1634, Until 11/09/24 at 1634, Routine, Intraprocedure Given 11/09/2024 4:34 PM EDT 50 mcg lidocaine (Xylocaine) 1 % injection Intradermal, As needed, Starting on e 11/09/24 at 1634, Until 11/09/24 at 1634, Routine, Intraprocedure Given 11/09/2024 4:34 PM EDT 10 mL midazolam (Versed) injection Intravenous, As needed, Starting on e 11/09/24 at 1634, Until 11/09/24 at 1634, Routine, Intraprocedure Given 11/09/2024 4:34 PM EDT 1 mg documented in this encounter Additional Health Concerns [...] documented as of this encounter Care Teams Yard Labor Supervisor Relationship Specialty Start Date End Date Crason Ibrahim MD [address] [facility] [address] [address] PCP - General 11/20/23 Imer Sevilla MD [address] [facility] [address] [place] [phone] Consulting Physician Radiation Oncology 02/27/24 Viky Menon MD [address] [facility] [address] [facility] [address] [place] [phone] Consulting Physician Medical Oncology 04/21/24 Amelia Freeman, RN Registered Nurse Hematology and Oncology 05/13/24 documented as of this encounter
--- OUTSIDE RECORDS SUMMARY | 2024-11-18 10:00 | XMS_ITS | Encounter Summary ---
Author Organization [facility] Address [address] [place] [address] Care Team Providers Care Sulfur Burner Name Role Phone Carson Ibrahim MD Primary Care Provider + [phone] Imer Sevilla MD Unavailable Viky Menon MD Unavailable [phone] Amelia Freeman RN Unavailable Unavailable Reason for Referral * Imaging (Routine) - Pending Review Specialty Diagnoses / Procedures Referred By Contac t Referred To Contact Radiology Diagnoses Lumbar back pain Osteomyelitis of thoracic spine (CMS/HCC) Procedures MR Thoracic Spine w and wo IV Contrast Alvin Johnson MD [address] [place] [phone] Phone: tel: fax: Referral ID Status Reason Start Date Expiration Date V isits Requested Visits Authorized [id number] Pending Review 11/22/2024 05/24/2026 1 1 * Consultation (Routine) - Authorized Specialty Diagnoses / Procedures Referred By Contac t Referred To Contact Diagnoses MRSA bacteremia Lumbar back pain Alvin Johnson MD [address] [place] [phone] Phone: tel: fax: Referral ID Status Reason Start Date Expiration Date V isits Requested Visits Authorized [id number] Authorized 11/18/2024 05/20/2026 1 1 Reason for Visit * Reason Comments MRSA * Consultation (Routine) - Closed Specialty Diagnoses / Procedures Referred By Contac t Referred To Contact Diagnoses Osteomyelitis of thoracic spine (CMS/HCC) Alvin Johnson MD [address] [place] [phone] Phone: tel: fax: Referral ID Status Reason Start Date Expiration Date Visits Re quested Visits Authorized [id number] Closed 10/21/2024 04/22/2026 1 1 Encounter Details Date Type Department Care Team (Late st Contact Info) Description 11/18/2024 10:00 AM EDT Office Visit [address] [address] Alvin Johnson MD [address] [place] [phone] Osteomyelitis of thoracic spine (CMS/HCC) (Primary Dx); MRSA bacteremia; Lumbar back pain; Squamous cell carcinoma, lip; Acute osteomyelitis of left clavicle ([facility]/HCC) Social History Tobacco Use Types Packs/Day Years [...] drink first t idalia in the morning (EYE-SLAB INSTALLER) to steady your nerves or to get rid of a hangover? 0 07/22/2024 CAGE Questionnaire Score 0 025 Utilities Answer Date Recorded In the past 12 months has th e [employer], gas, oil, or water [employer] threatened to shut off services in your home? No 07/28/2024 Sex and Gender Information Value Date Recorded Sex Assigned at Male 01/06/2024 6:14 AM EDT Legal Sex Male 7:47 PM EDT Gender Identity Male 01/06/2024 6:14 AM EDT Sexual Orientation Not on file documented as of this encounter Last Filed Vital Signs Vital Sign Reading Time Taken Comments Blood Pressure 110/75 11/18/2024 9:20 AM EDT Pulse 60 11/18/2024 9:20 AM EDT Temperature 36.5 C (97.7 F) 11/18/2024 9:20 AM EDT Respiratory Rate 16 11/18/2024 9:20 AM EDT Oxygen Saturation 98% 11/18/2024 9:20 AM EDT RA Inhaled Oxygen Concentration - - Weight 86.9 kg (191 lb 9.3 oz) 11/18/2024 9:20 A M EDT Height - - Body Mass Index 27.49 11/09/2024 1:30 PM EDT documented in this encounter Miscellaneous Notes * Addendum Note - Alvin Johnson MD - 11/18/2024 10:00 AM EDT Addended by: ALVIN JOHNSON on: 11/22/2024 03:32 PM Modules accepted: Orders * Progress Notes - Addison Alcala PA - 11/18/2024 10:00 AM EDT Infectious Diseases Outpatient Follow-Up Chief Complaint: MRSA bacteremia, sternoclavicular joint pain and osteomyelitis HPI Henny Daniels Jr. is a 49 y.o. male presenting for ID follow-up. 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 Patient admitted at [facility] from 07/01 -> 07/08 for MRSA bacteremia, where he noted left clavicle/shoulder pain first started. Patient presented [...] a 6-week duration of therapy, ending 09/02/24. PET scan from 07/2024 showed intense FDG activity at anterior T10/11 with a subtle new lytic changesand partial height loss, concerning for hematogenous spread of osteomyelitis. Follow up MRI showed T10-11 discitis/osteomyelitis with adjacent phlegmon extending from upper T9 to lower T12 and with localized epidural phlegmon about the T10-11 level. He was re-referred to us for evaluation and treatment of new spinal osteomyelitis, seen on 10/21/24. At that time he reported significant increase in mid-lumbar pain which radiated to left paraspinal area, notably without pain in the T-spine. To ascertain if the T10-11 phlegmon and spine findings represented resolving infection (having previously completed 6 weeks of MRSA coverage) as opposed to new infection in setting of PET-CT demonstrating FDG avidity in this reason, decided to obtain a spine biopsy with orders for routine, fungal and AFB tissue cultures. At the time, did not believe the mid-lumbar pain patient was related to the T10-T11 d iscitis/osteomyelitis and phlegma. However given the acute increase in pain over the last few weeks, did order MR lumbar spine w/wo contrast to further evaluate with addition of CBC/diff, CMP, CRP which were within normal limits. Patient returns today with reported baseline low back pain. Notes this pain began in June 2024 andhas been persistentthen. Pain localized again to mid lumbar spine with radiating paraspinal pain primarily L sided with occasional R sided involvement. He denies recent fevers, chills, paresthesias, numbness, bowel or bladder incontinence. Since previous visit patient obtained L spine MRI 11/01 demonstrating significant inflammatory changes of L4-L5 facets and surrounding soft tissue, large L sided disc extrusion L5-S1 creating foraminal stenosis and mass effect on left S1 nerve root. Additionally, T10-T11 paraspinal soft tissue biopsy was performed by IR on 11/09 with no growth to date from int raoperative fungal, routine, and AFB tissue cultures. ROS 14 point review of symptoms negative except as documented in the HPI. Objective Vitals: 11/18/24 0920 BP: 110/75 Pulse: 60 Resp: 16 Temp: 36.5 ??C (97.7 ??F) SpO2: 98% Physical Exam Vitals and nursing note reviewed. Constitutional: General: He is not in acute distress. Appearance: Normal appearance. Eyes: Extraocular Movements: Extraocular movements intact. Conjunctiva/sclera: Conjunctivae normal. Cardiovascular: Rate and Rhythm: Normal rate. Pulses: Normal pulses. Heart sounds: Normal heart sounds. Pulmonary: Effort: Pulmonary effort is normal. No respiratory distress. Breath sounds: Normal breath sounds. Musculoskeletal: General: No swelling, tenderness or deformity. Comments: No midline or paraspinal tenderness to palpation of overlying T10-L5 spinous proceses. Nolumps or deformities on gross inspection or palpation. Skin: General: Skin is warm and dry. Neurological: Mental Status: He is alert and oriented to person, place, and time. Labs: Lab Results Component Value Date WBC 6.53 11/05/2024 HGB 12.4 (L) 11/05/2024 HCT 38.2 (L) 11/05/2024 MCV 85 11/05/2024 PLT 405 (H) 11/05/2024 Chemistry Lab Results Component Value Date/Time NA 140 11/05/2024 0845 K 4.4 11/05/2024 0845 CL 98 11/05/2024 0845 CO2 28 11/05/2024 0845 BUN 18 11/05/2024 0845 CREATININE 0.79 11/05/2024 0845 Lab Results Component Value Date/Time CALCIUM 9.8 11/05/2024 0845 ALKPHOS 106 11/05/2024 0845 AST 19 11/05/2024 0845 ALT 10 11/05/2024 0845 BILITOT 0.7 11/05/2024 0845 06/29 BCX MRSA (OSH, see Media) 07/22 [...] level. No discrete abscess. Secondary focal kyphosis. MR LUMBAR SPINE W and WO IV CONTRAST 11/01/24 1. Probable infection in the L4-L5 articular facets. Superior and inferior articular facets appear irregular and probably destroyed. Inflammatory appearing soft tissue fills the L4-L5 foramen. 2. Large disc extrusion on the left at L5-S1 resulting in severe foraminal stenosis and mass-effecton the left S1 nerve nilsa Assessment/Plan Henny Daniels is a 49 y.o. male presenting for [...] and was recently admitted at [facility] from 07/01 -> 07/08 for MRSA bacteremia, where he notes left clavicle/shoulder pain first started. Thereafter admitted to [facility] for further management after a 07/21 CT [...] adjacent phlegmon from T9-T12; epidural phlegmon T10-11. Additionally MRI Lspine revealed probable infection in the L4-L5 articular facets with inflammatory surrounding soft tissue. Large disc extrusion at L5-S1. Given T10-11 soft tissue cultures revealing no growth, labsfrom previous encounter with normal WBC count, renal function, overall stable CRP since July, absence of fevers or systemic symptoms, it is unlikely either of these findings represent true current infection, however may represent post-infectious changes from prior MRSA bacteremia. Would be advisableto repeat PET CT to consider metastatic source for inflammatory changes of T and L spine. Exam again today reveals no overlying tenderness to T and L spine. Patient may consider continued pain management evaluation for pain alleviating modalities. Problem List - T10-T11 discitis/osteomyelitis with adjacent phlegmon - Left supraclavicular joint septic arthritis, adjacent osteomyelitis - Recent MRSA bloodstream infection - History of neck SCC - Inflammatory changes L4-L5 articular facets - L5-S1 disc extrusion w/severe foraminal stenosis Plan - It is more likely that T10-T11 phlegmon and OM/diskitis findings represent resolving infection, given pt has previously completed 6 weeks of MRSA coverage, which would be appropriate for spinal OM,especially in the absence of localized exam findings and negative tissue biopsy. - Will contact Onc to discuss future imaging plans; if no imaging of the spine planned from an Onc standpoint, do think an MRI T-spine to follow-up on the phlegmon is most prudent - Would recommend follow up with PCP/pain management for symptomatic management of low back pain onaccount of foraminal stenosis, destruction of L4-L5 articular facets; this is potentially sequelae of resolved OM - Red flag symptoms reviewed Return to clinic in 3 months [facility] [address] [facility] [phone] Cosigned by Alvin Johnson MD at 11/22/2024 3:30 PM EDT Associated attestation - Alvin Johnson MD - 11/22/2024 3:30 PM EDT I attest to being involved in more than half the total time in patient care. I agree with the plan as noted, with edits where/as needed Discussed f/up imaging plan with Oncology for the T-spine phlegmonous change. Will plan for a repeat MR T-spine in 3 months for follow-up documented in this encounter Plan of Treatment Upcoming Encounters Date Type Department Care Team (Late st Contact Info) Description 12/21/2024 10:15 AM EDT Office Visit [facility] [address] [place] [address] Kelsey Cerda, DMD [address] [place] [address] 02/10/2025 10:00 AM EST Office Visit [address] [phone] Alvin Johnson MD [address] [facility] [address] [place] [address] 03/10/2025 10:00 AM EST Appointment [facility] [address] [place] [address] 03/10/2025 1:15 PM EST Clinical Support [facility] [address] [place] [address] 03/10/2025 2:00 PM EST Appointment [facility] Radiation [address] [facility] [place] [phone] Imer Sevilla MD [address] [facility] [address] [place] [address] 03/14/2025 3:40 PM EST Office Visit [facility] [address] [facility], [address]nd [place] [address] Viky Menon MD [address] [facility] [address] [place] [address] Scheduled Orders Name Type Priority Associated Diagnoses Orde r Schedule MR Thoracic Spine w and wo IV Contrast Imaging Routine Lumbar back pain Osteomyelitis of thoracic spine (CMS/HCC) Expected: 02/21/2025 (Approximate), Expires: 05/26/2026 Scheduled Procedures Name Priority Associated Diagnoses Date/Ti me WEDGE RESECTION, TRANSVERSE, LIP, WITH PRIMARY CLOSURE Squamous cell carcinoma, lip DILATION, ESOPHAGUS Squamous cell carcinoma, lip Scheduled Referrals Name Type Priority Associated Diagnoses Orde r Schedule Follow Up ID Outpatient Referral Routine MRSA bacteremia Lumbar back pain Expected: 02/18/2025, Expires: 12/19/2025 documented as of this encounter Visit Diagnoses Diagnosis Osteomyelitis of thoracic spine (CMS/HCC)- Primary MRSA bacteremia Lumbar back pain Lumbago Squamous cell carcinoma, lip Other malignant neoplasm of skin of lip Acute osteomyelitis of left clavicle (CMS/HCC) documented in this encounter Additional Health Concerns Infection Onset Date 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 02/19/2024 Assessment Noted Time PHQ-9 Depression Total Score: 9 11/06/19 25 8:08 AM EDT A fall risk assessment has been complete d for the patient 11/05/2024 8:08 AM EDT A Body Mass Index follow-up plan has been documented for the patient 11/19/2024 4:06 PM EDT documented as of this encounter Care Teams Sulfur Burner Relationship Specialty Start Date End Date Carson Ibrahim MD [address] [facility] [address], [place] [id number] PCP - General 11/20/23 Imer Sevilla MD [address] [facility] [address] [place] [phone] Consulting Physician Radiation Oncology 02/27/24 Viky Menon MD [address] [facility] [address] [place] [address] Consulting Physician Medical Oncology 04/21/24 Amelia Freeman, RN Registered Nurse Hematology and Oncology 05/13/24 documented as of this encounter
--- OUTSIDE RECORDS SUMMARY | 2024-11-26 10:45 | XMS_ITS | Encounter Summary ---
Author Organization [facility] Address [address] [place] [address] Care Team Providers Care Assistant Store Manager Sales Name Role Phone Carson Ibrahim MD Primary Care Provider [phone] Imer Sevilla MD Unavailable Viky Menon MD Unavailable [phone] Amelia Freeman RN Unavailable Unavailable Encounter Details Date Type Department Care Team (Late st Contact Info) Description 11/26/2024 10:45 AM EDT Office Visit [place] [facility] [address] [place] [address] Kelsey Cerda, DMD [address] [place] [address] Edentulism (Primary Dx) Social History [...] drink first t idalia in the morning (EYE-TECHNICAL SUPPORT ENGINEER) to steady your nerves or to get rid of a hangover? 0 07/22/2024 CAGE Questionnaire Score 0 025 Utilities Answer Date Recorded In the past 12 months has th e [employer], gas, oil, or water [employer] threatened to shut off services in your home? No 07/28/2024 Sex and Gender Information Value Date Recorded Sex Assigned at Male 01/06/2024 6:14 AM EDT Legal Sex Male 7:47 PM EDT Gender Identity Male 01/06/2024 6:14 AM EDT Sexual Orientation Not on file documented as of this encounter Miscellaneous Notes * Progress Notes - Kelsey Cerda DMD - 11/26/2024 10:45 AM EDT Pt presents for digital try-in Smile line is canted to the left on maxillary. Baseplates and occlusion rims redone Facial bulk added to the maxillary rim. Adjustmenst made to max wax until adequate lip support and 2-4mm of teeth are showing the smiling. Vicente base plate adjusted and wax adjusted until occlusion was bilaterally balanced in CO and freeway speech was adequate. Midline marked and ramin mousse bite registration taken. NV: new digital try-in of CD/CD documented in this encounter Plan of Treatment Upcoming Encounters Date Type Department Care Team (Late st Contact Info) Description 12/21/2024 10:15 AM EDT Office Visit [place] [facility] [address] [place] [address] Kelsey Cerda DMD [address] [place] [phone] 02/10/2025 10:00 AM EST Office Visit [facility] [address] [place] [address] Abel Johnson MD [address] [facility] [address] [place] [address] 03/10/2025 10:00 AM EST Appointment [facility] [address] [place] [address] 03/10/2025 1:15 PM EST Clinical Support [facility] [address] [place] [address] 03/10/2025 2:00 PM EST Appointment [facility] [address] [place] [address] Imer Sevilla MD [address] [place] [address] 03/14/2025 3:40 PM EST Office Visit [facility] [address] [place] [address] Viky Menon MD [address] [place] [address] Scheduled Procedures Name Priority Associated Diagnoses Date/Ti me WEDGE RESECTION, TRANSVERSE, LIP, WITH PRIMARY CLOSURE Squamous cell carcinoma, lip DILATION, ESOPHAGUS Squamous cell carcinoma, lip documented as of this encounter Procedures Procedure Name Priority Date/Time Associated Diagnosis Comments DENTAL LAB Routine 12/09/2024 2:24 PM EDT Edentulism COMPLETE DENTURE - MAXILLARY IN PROCESS Routine 11/26/2024 10:45 AM EDT Edentulism documented in this encounter Results * DENTAL LAB (12/09/2024 2:24 PM EDT) [place] 0.00 $ Comment:[place] [place] Inv# [phone] Kelsey Cerda DMD DENTAL LAB ORDERABLES Final [...] plan has been documented for the patient 11/28/2024 8:33 PM EDT documented as of this encounter Care Teams Assistant Store Manager Sales Relationship Specialty Start Date End Date Carson Ibrahim MD [address] [facility] [address], [place] [address] PCP - General 11/20/23 Imer Sevilla MD [address] [facility] [address] [place] [address] Consulting Physician Radiation Oncology 02/27/24 Viky Menon MD [address] [facility] [address] [place] [phone] Consulting Physician Medical Oncology 04/21/24 Amelia Freeman, RN Registered Nurse Hematology and Oncology 05/13/24 documented as of this encounter
--- OUTSIDE RECORDS SUMMARY | 2024-11-30 06:15 | XMS_ITS ---
Author Organization [facility] Address [address] [facility] [address] [place] [id number] Care Team Providers Care Manager Maritime Name Role Phone Carson Ibrahim Primary Care Provider [phone] Allergies Allergen (clinical drug ingredient) Drug/Non Drug Allergy documented on EMR Reaction Allergy Type Onset Date Status Penicillin Rash Drug Allergy Active REASON FOR VISIT Discuss Work Release Medications Medication SIG (Take, Route, Fr equency, Duration) Notes Start Date End Date Status oxyCODONE HCl 10 MG 1 tablet as needed O rally every 6 hrs Active Carvedilol 6.25 MG 1 tablet with food O rally Twice a day Active Problems Problem Type SNOMED Code ICD Code Onset Dates Problem Status W/U Status Risk Notes Problem Disorder of neck (945681361) Disorder of neck (M53.82) Active confirmed Vital Signs Weight 189.4 lbs 11/30/2024 Blood pressure systolic 112 mm Hg 12/01/19 25 Blood pressure diastolic 64 mm Hg 025 Heart Rate 73 /min 11/30/2024 Height 69.5 in 11/30/2024 BMI 27.57 kg/m2 11/30/2024 Encounters Encounter Location Date Provider Diagnosis [facility] [address] [place] [id number] 11/30/2024 Carson Ibrahim Low back pain, unspecified M54.50 ; Disorder of neck M53.82 and BMI 27.0-27.9,adult Z68.27 Assessments Encounter Date Diagnosis (ICD Code) Assessment Notes Treatment Notes Treatment Clinical Notes Section Notes 11/30/2024 Low back pain, unspecified (ICD-10 - M54.50) Improved 11/30/2024 Disorder of neck (ICD-10 - M53.82) 11/30/2024 BMI 27.0-27.9,adult (ICD-10 - Z68.27) Plan Of Treatment Treatment Notes Assessment Notes Low back pain, unspecified Improved Next Appt Details Follow Up: 2 Months, Reason: Provider Name:Carosn Esteban ry, 12/23/2024 09:45:00 AM, [address], [place], [place], [id number], Progress Notes * NOE DANIELSOB:1975 (49 yo M)Acc No.[id number]:11/30/2024 Progress Notes Patient: PERRY JOHNSON Provider: Mila Ibrahim M.D. :1975 A ge:49 Y S ex:Male Date:11/30/2024 Address:[address] [place] [address] [place] , [place] [address] Subjective: * Chief Complaints: * 1 . Discuss Work Release. * HPI: H PI: 49 year old male presents with c/o Patient is here today for?to discuss returning to work after surgery. Pt states he feels like he is good to go back to work. Pt states he has no new concerns at this time . * ROS: D ERMATOLOGY: no R [...] stic Procedure: aiyana crow stone surgery , [facility] ER - UTI 11/08/2018, [facility] - Neck Surgery 10/13-. * Family History: F ather: 62 yrs, diagnosed with Heart Disease. M other: alive, diagnosed with Mental Illness. S iblings: alive, family history unknown . Dago sanchez: alive. 1 sister(s) . 3 son(s) - healthy. . COPD,. * Social History: C URRENT TOBACCO USE: No S moking Status: P atient does NOT [...] enicillin: Rash. Objective: * Vitals: W t: 189.4, Temp: 98.1, BP: 112/64, HR: 73, Nurse: ROSE, Ht: 69.5, BMI:27.57. * Examination: G eneral Examination: General Appearance: N AD. B ack: s tands and moves slowly due to pain. Assessment: * Assessment: 1. L ow back pain, unspecified - M54.50 (Primary) 2 . D isorder of neck - M53.82 3 . B NC 27.0-27.9,adult - Z68.27 Plan: * Treatment: * Procedure Codes: 1 036F TOBACCO NON-USER, 3074F SYST BP LT 130 MM HG, 3078F DIAST BP < 80 MM HG * Follow Up: 2 Months * Images: Billing Information: * Visit Code: 92116 Office Visit, Est Pt., Level 3. * Procedure Codes: 1036F TOBACCO NON-USER. 3074F SYST BP LT 130 MM HG. 3078F DIAST BP < 80 MM HG. * Electronic signature of Alia Ibrahim MD on 12/16/2024 at 09:13 AM EDT Sign off status: Pending * Provider: Mila Ibrahim M.D. Date: 0 11/30/2024 Generated for Cristhian louis/Constanza/Dipakitting on: 0 12/16/2024 09:13 AM EDT History and Physical Notes * HPI (History of Present Illness) Category Sub-Category Detail Notes Category Not es HPI Patient is here today for to dis cuss returning to work after surgery. Pt states he feels like he is good to go back to work. Pt states he has no new concerns at this time Examination Category Sub-Category Detail Notes Category Not es General Examination General Appearance: NAD Back: stands and moves slo wly due to pain
--- OUTSIDE RECORDS SUMMARY | 2024-12-07 11:15 | XMS_ITS | Encounter Summary ---
Author Organization Healthcare Address [address] [place] [address] Care Team Providers Care Communications Programmer Name Role Phone Carson Ibrahim MD Primary Care Provider + [phone] Imer Sevilla MD Unavailable Viky Menon MD Unavailable +[phone] Amelia Freeman RN Unavailable Unavailable Encounter Details Date Type Department Care Team (Late st Contact Info) Description 12/07/2024 11:15 AM EDT [facility] Visit [facility] [address] [place] [address] Kelsey Cerda, DMD [address] [place] [address] Edentulism (Primary Dx) Social History [...] in the [facility] m [facility], were you homeless or living in [...] drink first t idalia in the morning (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 0 07/22/2024 CAGE Questionnaire Score 0 025 Utilities Answer Date Recorded In the past 12 months has th e [employer], gas, oil, or water Editorially threatened to shut off services in your home? No 07/28/2024 Sex and Gender Information Value Date Recorded Sex Assigned at Male 01/06/2024 6:14 AM EDT Legal Sex Male 7:47 PM EDT Gender Identity Male 01/06/2024 6:14 AM EDT Sexual Orientation Not on file documented as of this encounter Miscellaneous Notes * Progress Notes - Kelsey Cerda DMD - 12/07/2024 11:15 AM EDT Pt presents for digital try-in for CD/CD Minor adjustments mad to flange length as to not cause denture to dislodge with facial muscle movement. Vicente CD placed with adhesive. Bite is bilaterally balanced and even. Max arch is no longer canted with smiling. Pt is satisfied with esthetics. Home care instructions given verbally Pt is to contact office in 49-72 hour to given final approval for final processing of CD/CD documented in this encounter Plan of Treatment Upcoming Encounters Date Type Department Care Team (Late st Contact Info) Description 12/21/2024 10:15 AM EDT Office Visit [place] [facility] [address] [place] [id number] Kelsey Cerda DMD [address] [place] [phone] 02/10/2025 10:00 AM EST Office Visit [facility] [address] [place] [phone] Abel Johnson MD [address] [facility] [address] [place] [address] 03/10/2025 10:00 AM EST Appointment [facility] [address] [place] [phone] 03/10/2025 1:15 PM EST Clinical Support [facility] [address] [facility] [place] [phone] 03/10/2025 2:00 PM EST Appointment [facility] [address] [id number] [place] [phone] Imer Sevilla MD [address] [facility] [address] [place] [phone] 03/14/2025 3:40 PM EST Office Visit [facility] [address] [facility] [place] [phone] Viky Menon MD [address] [facility] [address] [facility] [address] [place] [phone] Scheduled Procedures Name Priority Associated Diagnoses Date/Ti me WEDGE RESECTION, TRANSVERSE, LIP, WITH PRIMARY CLOSURE Squamous cell carcinoma, lip DILATION, ESOPHAGUS Squamous cell carcinoma, lip documented as of this encounter Procedures Procedure Name Priority Date/Time Associated Diagnosis Comments COMPLETE DENTURE - MAXILLARY IN PROCESS Routine 12/07/2024 11:15 AM EDT Edentulism documented in this [...] plan has been documented for the patient 12/07/2024 1:48 PM EDT documented as of this encounter Care Teams Communications Programmer Relationship Specialty Start Date End Date Carson Ibrahim MD [address] [facility] [address] [place] [address] PCP - General 11/20/23 Imer Sevilla MD [address] [facility] [address] [place] [address] Consulting Physician Radiation Oncology 02/27/24 Viky Menon MD [address] [facility] [address] [facility] [address] [place] [address] Consulting Physician Medical Oncology 04/21/24 Amelia Freeman, RN Registered Nurse Hematology and Oncology 05/13/24 documented as of this encounter
--- OUTSIDE RECORDS SUMMARY | 2024-12-13 07:19 | XMS_ITS | Encounter Summary ---
Author Organization [facility] Address [address] [place] [address] Care Team Providers Care Evaluation Manager Name Role Phone Carson Ibrahim MD Primary Care Provider [phone] Imer Sevilla MD Unavailable Viky Menon MD Unavailable [phone] Amelia Freeman RN Unavailable Unavailable Reason for Referral * Imaging (Routine) - Closed Specialty Diagnoses / Procedures Referred By Kameron santana Referred To Contact Radiology Diagnoses Secondary malignant neoplasm lymph nodes of head, face and neck (CMS/HCC) Procedures CT Chest w IV Contrast Imer Sevilal MD [address] [address] Phone: tel: fax: Referral ID Status Reason Start Date Expiration Date Visits Re quested Visits Authorized [id number] Closed 09/12/2024 03/14/2026 1 1 * Imaging (Routine) - Closed Specialty Diagnoses / Procedures Referred By Kameron santana Referred To Contact Radiology Diagnoses Secondary malignant neoplasm lymph nodes of head, face and neck (CMS/HCC) Procedures CT Soft Tissue Neck w IV Contrast Imer Sevilla MD [address] [address] Phone: tel: fax: Referral ID Status Reason Start Date Expiration Date Visits Re quested Visits Authorized [id number] Closed 09/12/2024 03/14/2026 1 1 Reason for Visit * Imaging (Routine) - Closed Specialty Diagnoses / Procedures Referred By Contac t Referred To Contact Radiology Diagnoses Secondary malignant neoplasm lymph nodes of head, face and neck (CMS/HCC) Procedures CT Soft Tissue Neck w IV Contrast Imer Sevilla MD 800 [facility] [address] [place] [address] Phone: tel: fax: Referral ID Status Reason Start Date Expiration Date Visits Re quested Visits Authorized [id number] Closed 09/12/2024 03/14/2026 1 1 Encounter Details Date Type Department Care Team (Latest Contact Info) Description 12/13/2024 7:19 AM EDT - 12/13/2024 12:24 PM EDT Hospital Encounter [facility] [address] [place] [address] Secondary malignant neoplasm lymph nodes of head, [...] Date Recorded Patient Health Questionnaire-2 Score 0 12/13/2024 Hunger Vital Sign Answer Date Recorded Within [...] Date Recorded Patient Health Questionnaire-9 Score 0 12/13/2024 Housing Stability Vital Sign Answer Preet e Recorded In the last 12 months, was t here a time when you were not able to pay the mortgage or rent on time? No 07/28/2024 In the past 12 months, how m any times have you moved where you were living? 1 07/28/2024 At any time in the past [address] [facility], were you homeless or living [...] drink first t idalia in the morning (EYE-TAX ACCOUNTANT) to steady your nerves or to get rid of a hangover? 0 07/22/2024 CAGE Questionnaire Score 0 025 Utilities Answer Date Recorded In the past 12 months has th e electric, [employer], [employer], or water [employer] threatened to shut off services in your [...] HOURS BEFORE APPLYING PATCH(ES) AGAIN. 11/05/2024 nitrofurantoin, macrocrystal-mon ohydrate, (Macrobid) 100 MG capsule 10/13/2024 traZODone (Desyrel) 100 MG tablet Take 1 tablet by mouth nightly. documented as of this encounter Miscellaneous Notes * Rocio Bowles - 12/13/2024 7:24 AM EDT Images from the original note were not included. 1639 Caring for Yourself after Contrast Imaging If you had ORAL contrast: ? You can go back to your normal diet and activities as tolerated. ? Drink plenty of fluids, unless told otherwise. If you had IV contrast: ? You can go back to your normal diet and activities as tolerated. ? Drink plenty of fluids, unless told otherwise. ? Leave a bandage on the site for 30 minutes (where the IV was inserted or blood was drawn). If you had Intravesical (bladder) contrast: ? Return to normal diet and activity. What you need to know about delayed reaction to IV contrast What is IV Contrast? ? Contrast is a dye that is put into your body through an IV. ? It is used for imaging scans such as CT scans and MRIs. ? The contrast makes blood vessels, organs and other parts of your body show up better on the scan. What do I need to do after IV contrast? ? Drink lots of fluids. This will help flush the contrast out of your system. ? Drink 2-3 extra glasses or bottles of water within 4 hours of your scan. What is a contrast reaction? ? A contrast reaction is a bad side effect from the contrast dye. ? It is rare but it does happen. ? They can be mild - such as sneezing, itching, or hives. ? They can be severe - such as trouble breathing, throat swelling, and irregular heart beat. When do these reactions happen? ? They often happen right after the contrast is injected. ? Some happen hours after going home. Go to the nearest Emergency Department right away if you have any of these symptoms after you leavethe clinic or hospital. ? Sneezing ? Itching in your mouth, throat, eyes, ears, or skin ? Rash or hives ? Throwing up or stomach sickness ? High heart rate or ?racing? of your heart ? Feeling dizzy or woozy ? Feeling short of breath or like you can?t take a deep breath ? Feeling very anxious for no other reason [...] Description 12/21/2024 10:15 AM EDT Office Visit [facility] [address] [place] [address] Kelsey Cerda, DMD [address] [place] [address] 02/10/2025 10:00 AM EST Office Visit [facility] [address] [place] [address] Abel Johnson MD [address] [facility] [facility] [address] [place] [address] 03/10/2025 10:00 AM EST Appointment [facility] [address] [place] [phone] 03/10/2025 1:15 PM EST Clinical Support [facility] [address] [facility]nd [place] [phone] 03/10/2025 2:00 PM EST Appointment [facility] [address] [facility]. [id number] [place] [phone] Imer Sevilla MD 800 [facility] [address] [place] [phone] 03/14/2025 3:40 PM EST Office Visit [facility] [address] [facility], [address] [place] [phone] Viky Menon MD 800 [facility] [address] [place] [address] Scheduled Procedures Name Priority Associated Diagnoses Date/Ti me WEDGE RESECTION, TRANSVERSE, LIP, WITH PRIMARY CLOSURE Squamous cell carcinoma, lip DILATION, ESOPHAGUS Squamous cell carcinoma, lip documented as of this encounter Procedures Procedure Name Priority Date/Time Associated Diagnosis Comments CT CHEST W IV CONTRAST Routine 12/13/2024 7:52 AM EDT Secondary malignant neoplasm lymph nodes of head, face and neck (CMS/HCC) CT SOFT TISSUE NECK W IV CONTRAST Routine 12/13/2024 7:52 AM EDT Secondary malignant neoplasm lymph nodes of head, face and neck (CMS/HCC) documented in this encounter Results * CT Chest w IV Contrast (12/13/2024 7:52 AM EDT) Anatomical Region Laterality Modality Chest Computed Tomogra phy Impressions 12/13/2024 8:22 AM EDT 1. No evidence of metastatic disease. 2. Probable trace aspiration. 3. Improving effusion and bony erosion of the left sternoclavicular joint. CRITICAL RESULT: No. COMMUNICATION: Per this written report. Drafted by Douglas Schofield MD on 12/13/2024 8:15 AM Final report signed by Douglas Schofield MD on 12/13/2024 8:22 AM Narrative 12/13/2024 8:22 AM EDT CLINICAL INDICATION: sqcc head and neck TECHNIQUE: Multiple CT helical images were obtained from thoracic inlet through upper abdomen with administration of IV contrast. 100 mL of Omnipaque-300 were administered intravenously. The imaging protocol used in this examination was optimized to achieve diagnostic quality with the lowest possible radiation dose in accordance with the principles of ALARA (As Low As Reasonably Achievable). COMPARISON: July 21, 2024 FINDINGS: Mediastinum and Pleura: No mediastinal or hilar adenopathy. Pleural or pericardial effusion. Moderate coronary artery calcifications. Lungs: There is a stable 3 to 4 mm nodule in the right lower lobe image 44. There are some minimal peribronchial groundglass attenuation in both lung bases, most likely representing trace aspiration. No new or enlarging nodules are appreciated. Upper Abdomen: Multiple areas of cortical scarring and calcification in the left kidney, stable compared with abdominal CT A December 18, 2023. Musculoskeletal: No suspicious lytic or sclerotic lesion. Decreased fluid in the left sternoclavicular joint and decreased lytic changes in the adjacent left clavicle. Procedure Note Douglas Schofield MD - 12/13/2024 CLINICAL INDICATION: sqcc head and neck TECHNIQUE: Multiple CT helical images were obtained from thoracic inlet through upperabdomen with administration of IV contrast. 100 mL of Omnipaque-300 wereadministered intravenously. The imaging protocol used in this examination was optimized to achievediagnostic quality with the lowest possible radiation dose in accordancewith the principles of ALARA (As Low As Reasonably Achievable). COMPARISON: July 21, 2024 FINDINGS: Mediastinum and Pleura: No mediastinal or hilar adenopathy. Pleural orpericardial effusion. Moderate coronary artery calcifications. Lungs: There is a stable 3 to 4 mm nodule in the right lower lobe image44. There are some minimal peribronchial groundglass attenuation in bothlung bases, most likely representing trace aspiration. No new or enlargingnodules are appreciated. Upper Abdomen: Multiple areas of cortical scarring and calcification inthe left kidney, stable compared with abdominal CT A December 18, 2023. Musculoskeletal: No suspicious lytic or sclerotic lesion. Decreased fluidin the left sternoclavicular joint and decreased lytic changes in theadjacent left clavicle. IMPRESSION: 1. No evidence of metastatic disease. 2. Probable trace aspiration. 3. Improving effusion and bony erosion of the left sternoclavicularjoint. CRITICAL RESULT: No. COMMUNICATION: Per this written report. Drafted by Douglas Schofield MD on 12/13/2024 8:15 AM Final report signed by Douglas Schofield MD on 12/13/2024 8:22 AM Imer Sevilla MD IMG CT PROCEDURES Final Result * CT Soft Tissue Neck w IV Contrast (12/13/2024 7:52 AM EDT) Anatomical Region Laterality Modality Neck Computed Tomogra phy Impressions 12/14/2024 12:21 AM EDT Extensive posttreatment changes of the neck including left hemimandibulectomy with fibular reconstruction. Hardware appears intact. No solid fusion of the bone graft at either of its margins at this time. No bony resorption either. No new drainable pocket of fluid identified within the neck. No new or enlarging soft tissue mass. 1 lymph node mid right neck region appears stable in overall size. Decreasing soft tissue swelling and inflammation in the left manubrial clavicular region and around the first costochondral cartilage on the left. Decreasing left supraclavicular lymph node size. Case finalized on 12/14/24 00:21 GIANCARLO Blackwell MD This report has been electronically signed and [...] error, please notify the sender immediately at [phone] and permanently delete the original report and destroy any copies or printouts. Narrative 12/14/2024 12:21 AM EDT [facility] - Phone Outpatient NAME: Henny Daniels Jr DATE OF EXAM: 12/13/2024 Patient No: [id number] Physician: Apurva Date of : 1975 Examination: Soft tissue neck CT with contrast Symptoms/Reason For Exam (entered by technologist): [facility] head and neck Tech Notes (entered by technologist): iohexol (OMNIPaque) 300 MG/ML injection 100 mL Given: 100 mL Intravenous Dx: Secondary malignant neoplasm lymph nodes of head, face and neck (CMS/HCC) Technique: Axial contrast enhanced CT imaging of the neck was performed with multiplanar reformats generated and reviewed. Contrast Agent and Dose: 100 cc Omnipaque 300 Automated exposure control was used for radiation dose reduction. Total DLP 1092 mGycm Comparison: PET CT study dated 08/10/24. Soft tissue neck CT with contrast at 07/21/24. Soft tissue neck CT with contrast dated 12/10/23. FINDINGS: Redemonstration of posttreatment changes following left hemimandibulectomy with fibular reconstruction. Lateral plate and screw instrumentation. Hardware appears intact on this exam. No solid fusion of the bone graft at either surgical anastomosis at this time. No gross exposed hardware at the skin surface. No drainable pocket of fluid identified at the hardware. The stillaguamish remaining left mandibular ramus/angle region demonstrates no bony resorption or periosteal reaction. The stillaguamish left parasymphyseal mandible area also demonstrates no bony resorption or periosteal reaction since the previous exam. Volume loss and some atrophy in the oral tongue on the left and tongue base area. Stable configuration imaging appearance. Mild diffuse thickening of the epiglottis consistent with sequelae of posttreatment change at that level. Loss of tissue plane definition through the anterolateral left neck compatible with a combination of surgery and radiation therapy through that area. This test decreasing the sensitivity for localized disease recurrence in the treatment field. I see no discrete enhancing soft tissue mass in that area on today's exam. Extensive neck dissection also on the right. Again, there is no discrete soft tissue mass identified in that region. Anterior and posterior paraspinal musculature along the cervical spine appears overall unremarkable. Numerous mediastinal lymph nodes redemonstrated. Previously visualized soft tissue swelling around the left manubrial clavicular articulation decreased. No new bony resorption at its articular margins nor in the first costochondral cartilage region. No drainable pocket of fluid in that area. Lung apices aerated. Thyroid gland unremarkable. The vocal folds appear symmetric. I do not see discrete enhancing soft tissue mass along the patient's pharynx on this study. Images through the intracranial vault them straight no acute abnormality. Aerated mastoid air cells and middle ear cavities. Visualized paranasal sinuses unremarkable. Pterygoid musculature appears symmetric. Masseter and temporalis muscle regions appear symmetric. Parapharyngeal fat planes around the nasopharynx region unremarkable. Prominent cervical lymph node level 3-4 on the right image 340, series 3 stable in size imaging appearance about 1.2 x 0.9 cm orthogonal axial dimensions, unchanged. Enlarged left supraclavicular lymph node image 379, series 3 and 1.4 x 1.4 cm orthogonal axial dimensions, previously 2.0 x 1.6 cm. Minimal atherosclerosis each carotid bifurcation. Around 50% stenosis along the proximal cervical ICA segment on the left at its origin and again along its proximal cervical portion similar to the most recent contrast-enhanced neck CT. Vertebral arteries appear patent. Mild chronic superior endplate compression deformity of vertebra T2 with Schmorl's node formation reidentified. Procedure Note Da Blackwell MD - 12/14/2024 [facility] - Phone Outpatient NAME: Henny Daniels Jr DATE OF EXAM: 12/13/2024 Patient No: [id number] Physician: Apurva Date of : 1975 Examination: Soft tissue neck CT with contrast Symptoms/Reason For Exam (entered by technologist): cc head and neck Tech Notes (entered by technologist): iohexol (OMNIPaque) 300 MG/MLinjection 100 mL Given: 100 mL Intravenous Dx: Secondary malignant neoplasm lymph nodes of head, face and neck(CMS/HCC) Technique: Axial contrast enhanced CT imaging of the neck was performedwith multiplanar reformats generated and reviewed. Contrast Agent and Dose: 100 cc Omnipaque 300 Automated exposure control was used for radiation dose reduction. TotalDLP 1092 mGycm Comparison: PET CT study dated 08/10/24. Soft tissue neck CT with contrastat 07/21/24. Soft tissue neck CT with contrast dated 12/10/23. FINDINGS: Redemonstration of posttreatment changes following lefthemimandibulectomy with fibular reconstruction. Lateral plate and screwinstrumentation. Hardware appears intact on this exam. No solid fusionof the bone graft at either surgical anastomosis at this time. No grossexposed hardware at the skin surface. No drainable pocket of fluididentified at the hardware. The stillaguamish remaining left mandibular ramus/angle region demonstrates nobony resorption or periosteal reaction. The stillaguamish left parasymphysealmandible area also demonstrates no bony resorption or periosteal reactionsince the previous exam. Volume loss and some atrophy in the oral tongue on the left and tonguebase area. Stable configuration imaging appearance. Mild diffusethickening of the epiglottis consistent with sequelae of posttreatmentchange at that level. Loss of tissue plane definition through the anterolateral left neckcompatible with a combination of surgery and radiation therapy throughthat area. This test decreasing the sensitivity for localized diseaserecurrence in the treatment field. I see no discrete enhancing softtissue mass in that area on today's exam. Extensive neck dissection alsoon the right. Again, there is no discrete soft tissue mass identified inthat region. Anterior and posterior paraspinal musculature along the cervical spineappears overall unremarkable. Numerous mediastinal lymph nodes redemonstrated. Previously visualizedsoft tissue swelling around the left manubrial clavicular articulationdecreased. No new bony resorption at its articular margins nor in thefirst costochondral cartilage region. No drainable pocket of fluid inthat area. Lung apices aerated. Thyroid gland unremarkable. The vocal folds appearsymmetric. I do not see discrete enhancing soft tissue mass along thepatient's pharynx on this study. Images through the intracranial vault them straight no acuteabnormality. Aerated mastoid air cells and middle ear cavities. Visualized paranasal sinuses unremarkable. Pterygoid musculature appears symmetric. Masseter and temporalis muscleregions appear symmetric. Parapharyngeal fat planes around thenasopharynx region unremarkable. Prominent cervical lymph node level 3-4 on the right image 340, series 3stable in size imaging appearance about 1.2 x 0.9 cm orthogonal axialdimensions, unchanged. Enlarged left supraclavicular lymph node [id number], series 3 and 1.4 x 1.4 cm orthogonal axial dimensions, previously 2.0x 1.6 cm. Minimal atherosclerosis each carotid bifurcation. Around 50% stenosisalong the proximal cervical ICA segment on the left at its origin andagain along its proximal cervical portion similar to the most recentcontrast-enhanced neck CT. Vertebral arteries appear patent. Mild chronic superior endplate compression deformity of vertebra T2 withSchmorl's node formation reidentified. IMPRESSION: Extensive posttreatment changes of the neck including lefthemimandibulectomy with fibular reconstruction. Hardware appears intact.No solid fusion of the bone graft at either of its margins at this time.No bony resorption either. No new drainable pocket of fluid identified within the neck. No new orenlarging soft tissue mass. 1 lymph node mid right neck region appears stable in overall size. Decreasing soft tissue swelling and inflammation in the left manubrialclavicular region and around the first costochondral cartilage on theleft. Decreasing left supraclavicular lymph node size. Case finalized on 12/14/24 00:21 GIANCARLO Blackwell MD This report has been electronically signed and [...] in error, pleasenotify the sender immediately at [phone] and permanently delete theoriginal report and destroy any copies or printouts. Imer Sevilla MD IM CT PROCEDURES Final Result documented in this encounter Visit Diagnoses Diagnosis Secondary malignant neoplasm lymph nodes of head, face and neck (CMS/HCC) documented in this encounter Administered Medications Inactive Administered Medications - up to 3 most recent administrations Medication Order MAR Action Action Date Dose Rate Site iohexol (OMNIPaque) 300 MG/ML injection 100 mL 100 mL, Intravenous, Once in imaging, 1 dose, Starting on Fri12/13/24 at 0724, Until 12/13/24 at 0751, Routine, Imaging Protocol Orders Given 12/13/2024 7:51 AM EDT 100 mL documented in this encounter Additional Health Concerns Infection Onset Date 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 02/19/2024 Assessment Noted Time PHQ-9 Depression Total Score: 0 12/14/19 12:35 PM EDT A fall risk assessment has been complete d for the patient 11/05/2024 8:08 AM EDT A Body Mass Index follow-up plan has been documented for the patient 12/13/2024 3:07 PM EDT documented as of this encounter Care Teams Evaluation Manager Relationship Specialty Start Date End Date Carson Ibrahim MD [address] [facility] [address] [id number] PCP - General 11/20/23 Imer Sevilla MD 800 [facility] [address] [place] [phone] Consulting Physician Radiation Oncology 02/27/24 Viky Menon MD [address] [facility] [address] [place] [address] Consulting Physician Medical Oncology 04/21/24 Amelia Freeman, RN Registered Nurse Hematology and Oncology 05/13/24 documented as of this encounter
--- OUTSIDE RECORDS SUMMARY | 2024-12-13 09:00 | XMS_ITS | Encounter Summary ---
Author Organization Healthcare Address [address] [place] [address] Care Team Providers Care Operating Engineer Name Role Phone Carson Ibrahim MD Primary Care Provider + [phone] Imer Sevilla MD Unavailable Viky Menon MD Unavailable [phone] Amelia Freeman RN Unavailable Unavailable Encounter Details Date Type Department Care Team (Late st Contact Info) Description 12/13/2024 9:00 AM EDT Office Visit [facility] [address] [place] [address] Kelsey Cerda, DMD [address] [place] [address] Edentulism (Primary Dx) Social History [...] any time in the past 12 m [facility], were you homeless or [...] drink first t idalia in the morning (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 0 07/22/2024 CAGE Questionnaire Score 0 025 Utilities Answer Date Recorded In the past 12 months has th e [employer], gas, oil, or water company threatened to [...] pleasure in doing things Not at all 12/13/2024 12:35 PM Elaina Kong A Feeling down, depressed, or hopeless Not at all 12/13/2024 12:35 PM Elaina Kong A Patient Health Questionnaire -2 Score 0 12/13/2024 12:35 PM Elaina Kong A * Question Answer Date of Assessment Author Trouble falling or staying asleep, or sleeping too much Not at all 12/13/2024 12:35 PM Elaina Kong A Feeling tired or having maricruz le energy Not at all 12/13/2024 12:35 PM Elaina Kong A Poor appetite or overeating Not at all 12/13/2024 12 :35 PM Elaina Kong A Feeling bad about yourself - or that you are a failure or have let yourself or your family down Not at all 12/13/2024 12:35 PM Elaina Guzman A Trouble concentrating on thi ngs, such as reading the newspaper or watching television Not at all 12/13/2024 12:35 PM Elaina Kong A Moving or speaking so slowly that other people could have noticed? Or the opposite - being so fidgety or restless that you have been moving around a lot more than usual. Not at all 12/13/2024 12:35 PM EDT Elaina Frye Thoughts that you would be better off or hurting yourself in some way Not at all 12/13/2024 12:35 PM Elaina Kong Patient Health Questionnaire -9 Score 0 12/13/2024 12:35 PM EDT Elaina Frye * Calculated C-SSRS Risk Score (Lifetime/Recent) Answer Date of Assessment Author No Risk Indicated 12/13/2024 12:35 PM EDElaina Rea * How difficult have these problems made it for you to do your work, take care of things at home, or get along with other people? Answer Date of Assessment Author Not difficult at all 12/13/2024 12:35 PM EDT Elaina Cancino * How difficult have these problems made it for you to do your work, take care of things at home, or get along with other people? Answer Date of Assessment Author Not difficult at all 12/13/2024 12:35 PM EDT Elaina Cancino * Question Answer Date of Assessment Author 1. Wish to be (Past 1 Month) No 025 12:35 PM Elaina Kong 2. Non-Specific Active Suici luis m Thoughts (Past 1 Month) No 12/13/2024 12:35 PM EDT Alexey Frye 6. Suicidal Behavior (Lifetime) No 12:35 PM Elaina Kong documented as of this encounter Miscellaneous Notes * Progress Notes - Kelsey Cerda, MARQUEZ - 12/13/2024 9:00 AM EDT Pt presents for adjustment of interim CD/CD Pt states that dentures are too loose and cause him to salivate excessively. Discussed with patient that increase salivation is normal during adjustment to a new prosthesis andwill subside as patient becomes more comfortable with swallowing their own secretions. CD/CD is slightly loose Adhesive added to intaglio surface of CD's and PVS monophase wash completed with patient in [place] Material allowed to cure intraorally for 5 minutes with border molding manipulations CD/CD removed after full curing and excess labial material trimmed Suction is much improved after PVS wash Copy scans made of the interim CD/CD with wash and sent to lab for final processing. Pt states that ru CD is still mobil with speaking, Due to hemimandibulectomy, Fibula and flap recon there is no ridge or vestibule and any movement activates muscles to dislodge prosthesis Discussed this issue with patient. Pt is interested in implants in the mandible/fibula for enhanced retention in the future, but wishes to proceed with traditional CD/CD fabrication. NV: delivery of final CD/CD documented in this encounter Plan of Treatment Upcoming Encounters Date Type Department Care Team (Late st Contact Info) Description 12/21/2024 10:15 AM EDT Office Visit [facility] [address] [place] [address] Kelsey Cerda DMD [address] [facility] [address] [place] [address] 02/10/2025 10:00 AM EST Office Visit [facility] [address] [facility] [place] [address] Abel Johnson MD [address] [facility] [address] [place] [phone] 03/10/2025 10:00 AM EST Appointment [facility] [address] [place] [phone] 03/10/2025 1:15 PM EST Clinical Support [facility] [address] [place] [address] 03/10/2025 2:00 PM EST Appointment [facility] Radiation [address] [id number] [place] [address] Imer Sevilla MD [address] [place] [address] 03/14/2025 3:40 PM EST Office Visit [facility] [address] [place] [address] Viky Menon MD [address] [facility] [address] [place] [address] Scheduled Orders Name Type Priority Associated Diagnoses Orde r Schedule DENTAL LAB Dental Routine Edentulism Ordered: 12/13/2024 Scheduled Procedures Name Priority Associated Diagnoses Date/Ti me WEDGE RESECTION, TRANSVERSE, LIP, WITH PRIMARY CLOSURE Squamous cell carcinoma, lip DILATION, ESOPHAGUS Squamous cell carcinoma, lip documented as of this encounter Procedures Procedure Name Priority Date/Time Associated Diagnosis Comments COMPLETE DENTURE -MANDIBULAR- IN PROCESS Routine 12/13/2024 9:00 AM EDT Edentulism COMPLETE DENTURE - MAXILLARY IN PROCESS Routine 12/13/2024 9:00 AM EDT Edentulism documented in this encounter Visit Diagnoses Diagnosis Edentulism- Primary documented in this encounter Additional Health Concerns Infection Onset Date 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 02/19/2024 Assessment Noted Time PHQ-9 Depression Total Score: 0 12/14/19 25 12:35 PM EDT A fall risk assessment has been complete d for the patient 11/05/2024 8:08 AM EDT A Body Mass Index follow-up plan has been documented for the patient 12/13/2024 3:07 PM EDT documented as of this encounter Care Teams Operating Engineer Relationship Specialty Start Date End Date Carson Ibrahim MD [facility] [address] [address] PCP - General 11/20/23 Imer Sevilla MD [address] [facility] [address] [place] [address] Consulting Physician Radiation Oncology 02/27/24 Viky Menon MD [address] [facility] [address] [place] [address] Consulting Physician Medical Oncology 04/21/24 Amelia Freeman RN Registered Nurse Hematology and Oncology 05/13/24 documented as of this encounter
--- OUTSIDE RECORDS SUMMARY | 2024-12-13 12:25 | XMS_ITS | Encounter Summary ---
Author Organization [facility] Address [address] [place] [address] Care Team Providers Care Rn Ccu Name Role Phone Carson Ibrahim MD Primary Care Provider + [phone] Imer Sevilla MD Unavailable Viky Menon MD Unavailable +[phone] Amelia Freeman RN Unavailable Unavailable Reason for Referral * Imaging (Routine) - Pending Review Specialty Diagnoses / Procedures Referred By Kameron santana Referred To Contact Radiology Diagnoses Secondary malignant neoplasm lymph nodes of head, face and neck (CMS/HCC) Procedures CT Chest w IV Contrast Criselda Snow MD [address] [address] Phone: tel: fax: Referral ID Status Reason Start Date Expiration Date V isits Requested Visits Authorized [id number] Pending Review 12/13/2024 06/14/2026 1 1 Reason for Visit * Reason Comments Follow-up Encounter Details Date Type Department Care Team (Latest Contact Info) Description 12/13/2024 12:25 PM EDT Hospital Encounter [facility] Radiation 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 Not at all 12/13/2024 12:35 PM Elaina Kong A Thoughts that you would be better off or hurting yourself in some way Not at all 12/13/2024 12:35 PM Elaina Kong A Patient Health Questionnaire -9 Score 0 12/13/2024 12:35 PM Elaina Kong A * Calculated C-SSRS Risk Score (Lifetime/Recent) Answer Date of Assessment Author No Risk Indicated 12/13/2024 12:35 PM Elaina Kong A * How difficult have these problems made it for you to do your work, take care of things at home, or get along with other people? Answer Date of Assessment Author Not difficult at all 12/13/2024 12:35 PM Elaina Guzman * How difficult have these problems made it for you to do your work, take care of things at home, or get along with other people? Answer Date of Assessment Author Not difficult at all 12/13/2024 12:35 PM EDT Elaina Cancino * Question Answer Date of Assessment Author 1. Wish to be (Past 1 Month) No 025 12:35 PM EDT Elaina Frye 2. Non-Specific Active Suici luis m Thoughts (Past 1 Month) No 12/13/2024 12:35 PM EDT Alexey Frye 6. Suicidal Behavior (Lifetime) No 12:35 PM EDT Elaina Frye documented as of this encounter Miscellaneous Notes * Progress Notes - Criselda Snow MD - 12/13/2024 12:30 PM EDT [facility] RADIATION ONCOLOGY FOLLOW UP VISIT PATIENT NAME: Henny Daniels Jr. : 1975 DATE OF SERVICE: 12/13/2024 REFERRING PROVIDER: Dr. Eldridge, Dr. Menon DIAGNOSIS: 49 y.o. 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 Followed by adjuvant CLIP ON SUNGLASSES INSPECTOR (66 Gy/33 Fx + carboplatin completed 05/17/24) STAGE: Cancer Staging Squamous cell carcinoma, lip Staging form: Oral Cavity, AJCC 8th Edition - Pathologic stage from 01/06/2024: Stage IVB (rpTX, rpN3b, rcM0) - Signed by Viky Menon MDon 02/02/2024 Stage prefix: Recurrence Research Study patient: Yes: [] No: [x] Radiation Treatment History: Treatment Site: H&N Total Dose: 66 Gy/33 Fx Date RT completed: 03/31/24-05/17/24 Interval History: Mr. Daniels was last seen by Dr. Sevilla (treating physician) on 09/13/24. Doing well, reports feeling tired from a long day of clinic visits. Completed imaging today. Reports having Lt neck tightness, no neck cramps/spasm. His Lt ROM is restricted. States he is not open tophysical therapy as his insurance is running out soon. Taste is about 70% of normal on right side of tongue. Mouth is dry, carries water. Has to wash down foods except for certain foods. Occasional choking. No aspiration. No recent pneumonia. Saw Dentistry team here at this AM. Lower implants of concern per patient. Wants us to reach outto them to discuss further. Not smoking. 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 Has to take drug test before being able to return to work. Challenging since managing leg pain w/ oxycodone. Has been off medication for past 48 hours to try to take drug test. Imaging reviewed in [facility] (CT Chest and CT neck completed today before encounter). I have reviewed Mr. Daniels's medical, surgical and other pertinent history in detail, and have updated medication and allergy information in the computerized patient record. PHYSICAL EXAM: Vital Signs: Visit Vitals BP (!) 150/92 Pulse 67 Resp 18 Wt 88.9 kg (195 lb 15.8 oz) SpO2 100% BMI 28.12 kg/m?? Smoking Status Never BSA 2.1 m?? 80 - Normal activity with effort; some signs or symptoms of disease. CONSTITUTIONAL: Awake, alert, cooperative, no apparent distress, and appears stated age EYES: extra-ocular muscles intact and vision intact ENT: normocepalic, oral cavity mucous membrane dry, OPX within normal appearance NECK: skin normal and no stridor; no palpable lymphadenopathy, Lt neck tight and ROM <50% LUNGS: No increased work of breathing DATA Imaging, pathology, and laboratory reports reviewed in detail in [facility]. RADIATION TOXICITY ASSESSMENT (CTC v5.0): Taste: Grade 1 Xerostomia: Grade 1 Mucositis: Grade 0 ASSESSMENT AND PLAN: In summary, Mr. Henny Daniels Jr. is a 49 y.o. male with a history of: - SCC of lower lip (2019) s/p resection - Lt submandibular node (+CURT) with SCC w/o evidence of primary recurrence or DM s/p excision with R+ and adjuvant CLIP ON SUNGLASSES INSPECTOR (45 Gy/25 Fx + boost 540 cGy/3 Fx with concurrent cisplatin completed 12/2019) - Recurrence in same Lt submandibular region in 2023 s/p resection of oral cavity with segmental mandibulectomy, Lt radical neck dissection, Rt modified neck dissection and superficial parotidectomy w/ Rt fibular free flap reconstruction 01/05/25 c/b infection requiring wound vac. Followed by adjuvant CLIP ON SUNGLASSES INSPECTOR (66 Gy/33 Fx + carboplatin completed 05/17/24) Recovering from spring hospitalization (Bacteremia and Lt clavicular osteomyelitis). Imaging CT Chest and CT neck reviewed in detail, AURY and Lt clavicular osteomyelitis appears to be improving. CT chest w/ stable 4 mm nodule in RLL, continue to monitor. Will follow up in 3 [address] treating physician Dr. Imer Sevilla with ongoing surveillance scans (CT neck already placed by Med Onc, CT chest). 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 Menon and Dr. Eldridge. Will convey to Dr. Sevilla to discuss lower set implants with Dr. Cerda. Orders Placed This Encounter Procedures CT Chest w IV Contrast Future Appointments Date Time Provider Department Center 12/21/2024 10:15 AM Kelsey Cerda, DMD [email or web address] 02/10/2025 10:00 AM Abel Johnson MD [id number] [place] 03/10/2025 10:[address] 2 [facility] 03/10/2025 2:00 PM Imer Sevilla MD RO [facility] [place] The patient has been counseled on tobacco cessation: Not Applicable Thank you for allowing us to participate in the care of this very pleasant patient. Please do not hesitate to contact me should any questions arise. I spent approximately 30 minutes with the patient and with patient-related care coordination. Criselda Snow MD, MSc Ux Design Lead Radiation Oncology documented in this encounter Plan of Treatment Upcoming Encounters Date Type Department Care Team (Late st Contact Info) Description 12/21/2024 10:15 AM EDT Office Visit [facility] [address] [place] [address] Kelsey Cerda, DMD [address] [facility] [address] [place] [address] 02/10/2025 10:00 AM EST Office Visit [facility] [address] [facility] [place] [address] Abel Johnson MD [address] [facility] [address] [place] [address] 03/10/2025 10:00 AM EST Appointment [facility]iology [address] [place] [phone] 03/10/2025 1:15 PM EST Clinical Support Pav [facility] Res[facility] [address] [facility] [place] [address] 03/10/2025 2:00 PM EST Appointment [facility] Radiation [address] [id number] [place] [phone] Imer Sevilla MD [address] [facility] [address] [place] [phone] 03/14/2025 3:40 PM EST Office Visit [facility] [address] [facility] [place] [address] Viky Menon MD [address] [facility] [address] [place] [phone] Scheduled Orders Name Type Priority Associated Diagnoses Orde r Schedule CT Chest w IV Contrast Imaging Routine Secondary malignant neoplasm lymph nodes of head, face and neck (CMS/HCC) Expected: 03/14/2025 (Approximate), Expires: 06/16/2026 Scheduled Procedures Name Priority Associated Diagnoses Date/Ti [...] documented as of this encounter Care Teams Rn Ccu Relationship Specialty Start Date End Date Carson Ibrahim MD [facility] [address] [address] PCP - General 11/20/23 Imer Sevilla MD [address] [facility] [address] [place] [address] Consulting Physician Radiation Oncology 02/27/24 Viky Menon MD [address] [facility] [address] [place] [address] Consulting Physician Medical Oncology 04/21/24 Amelia Freeman, RN Registered Nurse Hematology and Oncology 05/13/24 documented as of this encounter
--- OUTSIDE RECORDS SUMMARY | 2024-12-13 14:30 | XMS_ITS | Encounter Summary ---
Author Organization Healthcare Address [address] [place] [address] Care Team Providers Care Tissue Recovery Technician Name Role Phone Carson Ibrahim MD Primary Care Provider + [phone] Imer Sevilla MD Unavailable Viky Menon MD Unavailable [phone] Amelia Freeman RN Unavailable Unavailable Reason for Visit * Reason Comments Labs Encounter Details Date Type Department Care Team (Latest Contact Info) Description 12/13/2024 2:30 PM EDT Clinical Support Pav [facility] Res[facility] [address] [place] [address] Malignant neoplasm of external lower lip; Squamous cell carcinoma, lip; Squamous cell carcinoma [...] time in the past 12 m [facility], were you homeless or [...] drink first t idalia in the morning (EYE-HOSE OPERATOR) to steady your nerves or to [...] way Not at all 12/13/2024 12:35 PM SHANIT Elaina Frye Patient Health Questionnaire -9 Score 0 12/13/2024 12:35 PM EDT Elaina Frye * Calculated C-SSRS Risk Score (Lifetime/Recent) Answer Date of Assessment Author No Risk Indicated 12/13/2024 12:35 PM EDT Elaina Frye * How difficult have these problems made [...] Not difficult at all 12/13/2024 12:35 PM SHANIT Elaina Cancino * Question Answer Date of Assessment Author 1. Wish to be (Past 1 Month) No 025 12:35 PM Elaina Kong 2. Non-Specific Active Suici luis m Thoughts (Past 1 Month) No 12/13/2024 12:35 PM SHANIT Alexey Frye 6. Suicidal Behavior (Lifetime) No 12:35 PM Elaina Kong documented as of this encounter Plan of Treatment Upcoming Encounters Date Type Department Care Team (Late st Contact Info) Description 12/21/2024 10:15 AM EDT Office Visit [facility] [address] [place] [address] Kelsey Cerda, DMD [address] [place] [address] 02/10/2025 10:00 AM EST [facility] Visit [facility] [address] [place] [address] Abel Johnson MD [address] [facility] [address] [place] [address] 03/10/2025 10:00 AM EST Appointment [facility] G Radiology [address] [place] [phone] 03/10/2025 1:15 PM EST Clinical Support [facility] Res[facility] [address] [facility], 2nd [place] [phone] 03/10/2025 2:00 PM EST Appointment [facility] Radiation [address] [place] [address] Imer Sevilla MD [address] [facility] [address] [place] [address] 03/14/2025 3:40 PM EST Office Visit [facility] Res[facility] [address] [facility], [address]nd [place] [phone] Viky Menon MD [address] [facility] [address] [place] [phone] Scheduled Procedures Name Priority Associated Diagnoses Date/Ti me WEDGE RESECTION, TRANSVERSE, LIP, WITH PRIMARY CLOSURE Squamous cell carcinoma, lip DILATION, ESOPHAGUS Squamous cell carcinoma, lip documented as of this encounter Procedures Procedure Name Priority Date/Time Associated Diagnosis Comments CBC WITH AUTO DIFFERENTIAL Routine 12/13/2024 1:31 PM EDT 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, 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, face and neck (CMS/HCC) TSH Routine 12/13/2024 1:31 PM EDT 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, 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, face and neck (CMS/HCC) COMPREHENSIVE METABOLIC PANEL, PLASMA Routine 12/13/2024 1:31 PM EDT 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, 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, face and neck (CMS/HCC) documented in this encounter Results * (ABNORMAL) Comprehensive Metabolic Panel, Plasma (12/13/2024 1:31 PM EDT) [facility] Glucose, Plasma 121(H) 74 - 99 mg/dL 12/13/2024 2:31 PM EDT [facility] BUN, Plasma 15 7 - 21 mg/dL 12/13/2024 2:31 PM EDT [facility] Creatinine, Plasma 0.72 0.70 - 1.20 mg/dL 12/13/2024 2:31 PM EDT [facility] BUN/Creatinine Ratio 21 12/13/2024 2:31 PM EDT [facility] Sodium, Plasma 137 136 - 145 mmol/L 12/13/2024 2:31 PM EDT [facility] Potassium, Plasma 3.9 3.6 - 4.9 mmol/L 12/13/2024 2:31 PM EDT [facility] Chloride, Plasma 102 97 - 107 mmol/L 12/13/2024 2:31 PM EDT [facility] CO2, Plasma 24 22 - 29 mmol/L 12/13/2024 2:31 PM EDT [facility] Anion Gap 11 6 - 16 mmol/L 12/13/2024 2:31 PM EDT [facility] Total Calcium, Plasma 9.2 8.9 - 10.2 mg/dL 12/13/2024 2:31 PM EDT [facility] Total Protein 7.3 6.3 - 7.9 g/dL 12/13/2024 2:31 PM EDT [facility] Albumin, Plasma 3.7 3.5 - 5.2 g/dL 12/13/2024 2:31 PM EDT [facility] AST, Plasma 24 10 - 50 U/L 12/13/2024 2:31 PM EDT [facility] ALT, Plasma 12 10 - 50 U/L 12/13/2024 2:31 PM EDT [facility] Alkaline Phosphatase, Plasma 90 40 - 115 U/L 12/13/2024 2:31 PM EDT [facility] Total Bilirubin, Plasma 0.9 0.2 - 1.1 mg/dL 12/13/2024 2:31 PM EDT [facility] eGFRcr 111.3 mL/min/1.7 3m*2 12/13/2024 2:31 PM EDT [facility] Comment:Reported eGFRcr in m L/min/1.73m2 is based the CKD-EPI 2020 equation that does not use a race coefficient. Blood Venous blood specimen / Unknown Venipuncture / Unknown 12/13/2024 1:31 PM EDT 12/13/2024 1:43 PM EDT us Viky Menon MD LAB BLOOD ORDERABLES Final R esult [facility] [address] [place] [address] * (ABNORMAL) CBC and Differential (12/13/2024 1:31 PM EDT) WBC Count 4.64 3.70 - 10.30 10*3/uL LAB HEMATOLOGY METHOD 12/13/2024 2:14 PM EDT [facility] RBC Count 4.50(L) 4.60 - 6.10 10*6/uL LAB HEMATOLOGY METHOD 12/13/2024 2:14 PM EDT [facility] HGB 12.9(L) 13.7 - 17.5 g/dL LAB HEMATOLOGY METHOD 12/13/2024 2:14 PM EDT [facility] HCT 38.3(L) 40.0 - 51.0 % LAB HEMATOLOGY METHOD 12/13/2024 2:14 PM EDT [facility] Platelet Count 209 155 - 369 10*3/uL LAB HEMATOLOGY METHOD 12/13/2024 2:14 PM EDT [facility] MCV 85 79 - 98 fL LAB HEMATOLOGY METHOD 12/13/2024 2:14 PM EDT [facility] MCH 28.7 26.0 - 32.0 pg LAB HEMATOLOGY METHOD 12/13/2024 2:14 PM EDT [facility] MCHC 33.7 30.7 - 35.5 g/dL LAB HEMATOLOGY METHOD 12/13/2024 2:14 PM EDT [facility] RDW 16.4(H) 11.5 - 14.5 % LAB HEMATOLOGY METHOD 12/13/2024 2:14 PM EDT [facility] MPV 11.5 8.8 - 12.5 fL LAB HEMATOLOGY METHOD 12/13/2024 2:14 PM EDT [facility] nRBC 0.0 <=0.0 per 100 WBCs LAB HEMATOLOGY METHOD 12/13/2024 2:14 PM EDT [facility] Differential Type Automated LAB HEMATOLOGY METHOD 12/13/2024 2:14 PM EDT [facility] Neutrophils % 69 % LAB HEMATOLOGY METHOD 12/13/2024 2:14 PM EDT [facility] Lymphocytes % 23 % LAB HEMATOLOGY METHOD 12/13/2024 2:14 PM EDT [facility] Monocytes % 5 % LAB HEMATOLOGY METHOD 12/13/2024 2:14 PM EDT [facility] Eosinophils % 2 % LAB HEMATOLOGY METHOD 12/13/2024 2:14 PM EDT [facility] Basophils % 1 % LAB HEMATOLOGY METHOD 12/13/2024 2:14 PM EDT [facility] Immature Granulocytes % 0 % LAB HEMATOLOGY METHOD 12/13/2024 2:14 PM EDT [facility] Neutrophils Absolute 3.21 1.60 - 6.10 10*3/uL LAB HEMATOLOGY METHOD 12/13/2024 2:14 PM EDT [facility] Lymphocytes Absolute 1.07(L) 1.20 - 3.90 10*3/uL LAB HEMATOLOGY METHOD 12/13/2024 2:14 PM EDT [facility] Monocytes Absolute 0.22(L) 0.30 - 0.90 10*3/uL LAB HEMATOLOGY METHOD 12/13/2024 2:14 PM EDT [facility] Eosinophils Absolute 0.09 0.00 - 0.50 10*3/uL LAB HEMATOLOGY METHOD 12/13/2024 2:14 PM EDT [facility] Basophils Absolute 0.04 0.00 - 0.10 10*3/uL LAB HEMATOLOGY METHOD 12/13/2024 2:14 PM EDT [facility] Immature Granulocytes Absolute 0.01 0.00 - 0.06 10*3/uL LAB HEMATOLOGY METHOD 12/13/2024 2:14 PM EDT [facility] Blood Venous blood specimen / Unknown Venipuncture / Unknown 12/13/2024 1:31 PM EDT 12/13/2024 1:43 PM EDT Narrative [facility] - 12/13/2024 2:14 PM EDT Therapeutic decision making should be based on absolute values, rather than percentages. Viky Menon MD LAB BLOOD ORDERABLES Final R esult Performing Organization Address City/[facility]/ZIP Co de Phone Number [facility] [address] [place] [address] * Thyroid Stimulating Hormone, Plasma (12/13/2024 1:31 PM EDT) Thyroid Stimulating Hormone, Plasma 1.00 0.40 - 4.20 uIU/mL 12/13/2024 2:31 PM EDT [facility] Blood Venous blood specimen / Unknown Venipuncture / Unknown 12/13/2024 1:31 PM EDT 12/13/2024 1:43 PM EDT Viky Menon MD LAB BLOOD ORDERABLES Final R esult Performing Organization Address City[facility]/ZIP Co de Phone Number [facility] [address] [place] [address] documented in this encounter Visit Diagnoses Diagnosis Malignant neoplasm of external lower lip Malignant [...] documented as of this encounter Care Teams Tissue Recovery Technician Relationship Specialty Start Date End Date Carson Ibrahim MD [address] [facility] [address] PCP - General 11/20/23 Imer Sevilla MD [address] [facility] [address] [place] [address] Consulting Physician Radiation Oncology 02/27/24 Viky Menon MD [address] [facility] [address] [place] [address] Consulting Physician Medical Oncology 04/21/24 Amelia Freeman, RN Registered Nurse Hematology and Oncology 05/13/24 documented as of this encounter
--- OUTSIDE RECORDS SUMMARY | 2024-12-13 14:45 | XMS_ITS | Encounter Summary ---
Author Organization [facility] Address [address] [place] [address] Care Team Providers Care Layer Off Name Role Phone Carson Ibrahim MD Primary Care Provider + [phone] Imer Sevilla MD Unavailable Viky Menon MD Unavailable [phone] Amelia Freeman RN Unavailable Unavailable Reason for Referral * Consultation (Routine) - Authorized Specialty Diagnoses / Procedures Referred By Kameron santana Referred To Contact Physical Therapy Diagnoses Stiffness of neck Adilene Ha MD [address] [facility] [address] [place] [address] Phone: tel: fax: Referral ID Status Reason Start Date Expiration Date Visits Requested Visits Authorized [id number] Authorized Consult and Treat 12/13/2024 06/14/2026 1 1 Scheduling Instructions PT in [place] for neck extension excersises * Imaging (Routine) - Pending Review Specialty Diagnoses / Procedures Referred By Kameron santana Referred To Contact Radiology Diagnoses Feeding difficulties Procedures [place] Modified Barium Swallow Adilene Ha MD [address] [facility] [address] [place] [address] Phone: tel: fax: Referral ID Status Reason Start Date Expiration Date Visits Requested Visits Authorized [id number] Pending Review Perform Procedure 12/13/2024 06/14/2026 1 1 Encounter Details Date Type Department Care Team (Late st Contact Info) Description 12/13/2024 2:45 PM EDT Office Visit Pav [facility] Head[facility] Neck [facility] Respiratory [address] [facility], [address]nd [place] [address] Adilene Ha MD [address] [facility] [address] [place] [address] Stiffness of neck (Primary Dx); Feeding difficulties Social History Tobacco Use Types Packs/Day Years [...] time in the past 12 m [facility], were you homeless or living in a [...] drink first t idalia in the morning (EYE-CLIENT RENEWAL SPECIALIST) to steady your nerves or to [...] all 12/13/2024 12:35 PM Elaina Guzman A * How difficult have these problems [...] Alexey Frye 6. Suicidal Behavior (Lifetime) No 5 12:35 PM EDT Elaina Frye documented as of this encounter Miscellaneous Notes * Progress Notes - Amparo Mackenzie MD - 12/13/2024 2:45 PM EDT Henny Daniels Jr. is a [...] chemoradiotherapy with Cisplatin, completed in December 2019. Post- treatment PET in early 2020 was negative for disease. He was unfortunately lost to follow-up after February 2021 until September of 2023 when hepresented to medical oncology with a painful left submandibular area mass that had been increasing in size for approximately 1 year. Repeat PET/CT was ordered and and performed on 11/03/23 which revealed a 1 cm lymph node posterior to the left parotid gland with mild hypermetabolic activity with a maximum SUV of 3.6, a large cystic/necrotic lesion in [...] excision completing in December 2019. The patient developedinfection in right lower extremity donor site requiring prolonged wound management. He underwent a PET-CT scan in July 2024 which demonstrated hypermetabolic activity [...] intermittent back pain without any extremity weakness. 12/13/24: Presents to clinic for follow up. Overall doing well. He continues to follow with infectious disease, he is not on any antibiotic therapy and is doing well. He continues daily dressing changes of his leg. He is having trouble swallowing and feels solids get stuck. He has some left neck tightness but otherwise no concerns at this time. His vitals were not taken for this visit. Past Medical History[1] Oncology History Overview Note His oncologic history is as follows: History of early stage left lower lip cancer in 2019, resected by Dr. Meyers. In 2019, he developed a left neck mass, and underwent a thyroidectomy and neck dissection with post-operative chemotherapy given by Mitch by Dr. Cruz and radiation therapy given in [place]. CT Neck and Face 12-10-23 CT face [...] Anthropometrics: Wt Readings from Last 3 Encounters: 12/13/24 88.9 kg (195 lb 15.8 oz) 11/18/24 86.9 kg (191 lb 9.3 oz) 11/09/24 85.8 kg (189 lb 2.5 oz) Ht Readings from Last 1 Encounters: 11/09/24 1.778 m (5' 10 ) BMI Readings from Last 1 Encounters: 12/13/24 28.12 kg/m?? Biochemical: Lab Results Component Value Date GLUCOSE 121 (H) 12/13/2024 CALCIUM 9.2 12/13/2024 NA 137 12/13/2024 K 3.9 12/13/2024 CO2 24 12/13/2024 CL 102 12/13/2024 BUN 15 12/13/2024 CREATININE 0.72 12/13/2024 PHYSICAL EXAMINATION: General: Healthy-appearing 49 y.o. 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 He is overall doing well today. CT neck and chest were without evidence of malignancy. He is interested in pursuing wedge resection of the lip with esophageal dilation. We will schedule him for this surgery. In the interim we are going to have him get an MBS. I will also place a PT referral for hisneck tightness. I will see him back for his surgery or sooner if any concerns or questions arise. Digital speech recognition software was used to dictate this note and, despite all efforts to proofread, some dictation errors may occur. If you have any questions, please do not hesitate to contact me. [1] Past Medical History: Diagnosis Date Blood infection hospitalized from 07/01/24 to 07/05/24, UTI, last IV antibiotic 07/15/24, PO antbiotics CINV (chemotherapy-induced nausea and vomiting) 02/18/24 Congestive heart failure (CHF) ([facility]) Diabetes ([facility]) High blood pressure Lip cancer Morbid obesity ([facility]/HCC) 01/07/2024 PONV (postoperative nausea and vomiting) Type 2 diabetes mellitus 01/07/2024 UTI (urinary tract infection) 01/07/2024 Cosigned by Adilene Ha MD at 12/14/2024 8:36 PM EDT Associated attestation - Adilene Ha MD - 12/14/2024 8:36 PM EDT I saw and evaluated the patient with the resident/fellow. I discussed the case with the resident/fellow and agree with the findings and plan as documented. He is overall healed from surgery. Still with moderate left neck tightness resultant from advancement flap closure of cervical defect followed by adjuvant radiation. I discussed I could release this but would likely need to perform a supraclavicular flap to reconstruct the resultant cutaneous defect. 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 I discussed the left lip could be elevated via wedge excision, essentially tightening the lip. Although this would inherently decrease total mouth opening. He was agreeable to performing this with the goals of elevating the left lower lip and improving lip symmetry. Will also perform esophageal dilation at the same time. AURY recurrence on clinical exam or imaging studies (performed today) Follow up post op. Adilene Ha MD, FACS Head & Neck Surgical Oncology, Transoral Robotic Surgery (TORS), Thyroid & Parathyroid Surgery and Microvascular Reconstruction Department of Otolaryngology-Head & Neck Surgery [facility] Head, Neck, & Respiratory [facility] documented in this encounter Plan of Treatment Upcoming Encounters Date Type Department Care Team (Late st Contact Info) Description 12/21/2024 10:15 AM EDT Office Visit [facility] Adult [facility]istry [address] [place] [address] Kelsey Cerda, DMD [address] [place] [address] 02/10/2025 10:00 AM EST Office Visit [facility] [address] [place] [phone] Abel Johnson MD [address] [facility] [address] [place] [address] 03/10/2025 10:00 AM EST Appointment [facility] Radiology [address] [place] [phone] 03/10/2025 1:15 PM EST Clinical Support Pav [facility] Head[facility] Neck [facility] Respiratory [address] [facility], [address]nd [place] [address] 03/10/2025 2:00 PM EST Appointment [facility] CC Radiation [address] [id number] [place] [phone] Imer Sevilla MD [address] [facility] [address] [place] [address] 03/14/2025 3:40 PM EST Office Visit [facility] Head[facility] Neck [facility] Respiratory [address] [facility], [address]nd [place] [phone] Viky Menon MD [address] [facility] [address] [place] [phone] Scheduled Orders Name Type Priority Associated Diagnoses Orde r Schedule FL Modified Barium Swallow Imaging Routine Feeding difficulties Expected: 12/13/2024 (Approximate), Expires: 06/12/2026 Scheduled Procedures Name Priority Associated Diagnoses Date/Ti me WEDGE RESECTION, TRANSVERSE, LIP, WITH PRIMARY CLOSURE Squamous cell carcinoma, lip DILATION, ESOPHAGUS Squamous cell carcinoma, lip Scheduled Referrals Name Type Priority Associated Diagnoses Order Schedule Ambulatory referral to Physical Therapy Outpatient Referral Routine Stiffness of neck Expected: 12/13/2024 (Approximate), Expires: 06/16/2026 documented as of this encounter Visit Diagnoses Diagnosis Stiffness of neck- Primary Torticollis, unspecified Feeding difficulties Feeding difficulties and mismanagement documented in this encounter Additional Health Concerns [...] documented as of this encounter Care Teams Layer Off Relationship Specialty Start Date End Date Carson Ibrahim MD [address] [facility] [address] [place] [address] PCP - General 11/20/23 Imer Sevilla MD [address] [facility] [address] [place] [phone] Consulting Physician Radiation Oncology 02/27/24 Viky Menon MD [address] [facility] [address] [facility] [address] [place] [phone] Consulting Physician Medical Oncology 04/21/24 Amelia Freeman, RN Registered Nurse Hematology and Oncology 05/13/24 documented as of this encounter
--- OUTSIDE RECORDS SUMMARY | 2024-12-13 15:40 | XMS_ITS | Encounter Summary ---
Author Organization [facility] Address [address] [place] [address] Care Team Providers Care Environmental Sampling Technician Name Role Phone Carson Ibrahim MD Primary Care Provider + [phone] Imer Sevilla MD Unavailable Viky Menon MD Unavailable [phone] Amelia Freeman RN Unavailable Unavailable Reason for Referral * Imaging (Routine) - Pending Review Specialty Diagnoses / Procedures Referred By Kameron santana Referred To Contact Radiology Diagnoses Squamous cell carcinoma, lip Procedures CT Soft Tissue Neck w IV Contrast Viky Menon MD [address] [facility] [address] [facility] [address] [place] [address] Phone: tel: fax: Referral ID Status Reason Start Date Expiration Date V isits Requested Visits Authorized [id number] Pending Review 12/10/2024 06/11/2026 1 1 Reason for Visit * Reason Comments Follow-up Encounter Details Date Type Department Care Team ([facility] st Contact Info) Description 12/13/2024 3:40 PM EDT Office Visit Pav [facility] Head, Neck & Respiratory [address] [place] [phone] Viky Menon MD [address] [facility] [address] [facility] [address] [place] [address] Squamous cell carcinoma, lip (Primary Dx); Cancer related pain; Dysphagia, oropharyngeal Social History Tobacco Use Types [...] any time in the past 12 m [facility], were you homeless or living in [...] drink first t idalia in the morning (EYE-INTERLOCKING AND SIGNAL MECHANIC) to steady your nerves or to [...] Sign Reading Time Taken Comments Blood Pressure 154/99 12/13/2024 1:27 PM EDT no symptoms. reported to rn Pulse 66 12/13/2024 1:22 PM EDT Temperature 36.3 C (97.3 F) 12/13/2024 1:22 PM EDT Respiratory Rate 16 12/13/2024 1:22 PM EDT Oxygen Saturation 100% 12/13/2024 1:2 2 PM EDT Inhaled Oxygen Concentration - - Weight 88.8 kg (195 lb 12.3 oz) 12/13/2024 1:22 PM EDT Height 177.8 cm (5' 10 ) 12/13/2024 1:2 2 PM EDT Body Mass Index 28.09 12/13/2024 1:22 PM EDT documented in this encounter Functional [...] all 12/13/2024 12:35 PM EDT Elaina Cancino Sushil * How difficult have these problems made it for you to do your work, take care of things at home, or get along with other people? Answer Date of Assessment Author Not difficult at all 12/13/2024 12:35 PM EDT Ezekiel roblero Elaina Sushil * Question Answer Date of Assessment Author 1. Wish to be (Past 1 Month) No 025 12:35 PM EDT Elaina Frye 2. Non-Specific Active Suici luis m Thoughts (Past 1 Month) No 12/13/2024 12:35 PM EDT Alexey Frye 6. Suicidal Behavior (Lifetime) No 12:35 PM EDT Elaina Frye documented as of this encounter Miscellaneous Notes * Progress Notes - Viky Menon MD - 12/13/2024 3:40 PM EDT Patient Information Patient Name: Henny Daniels Jr. Date of : 1975 REFERRING PHYSICIAN: Viky Menon MD [address] [place] [id number] Encounter Date: 12/13/2024 Verbal consent was obtained to use ambient listening technology to assist in the documentation of the encounter: yes Henny Daniels Jr. is a 49 y.o. 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 he returns for followup after treatment of head and neck cancer Subjective History of Present Illness The patient presents for leg pain, sleep issues, and dental problems. He reports persistent leg pain, which intensifies upon movement. The leg feels extremely tight, particularly at night. He was previously prescribed oxycodone for pain management but has run out of the medication. He is not currently taking gabapentin as it did not provide relief. He is considering resuming work on a part-time basis, three days a week, to gradually regain his strength. He plans totake his medication after work and before bedtime. He has been advised that he can return to work, but he must refrain from driving while on this medication unless he obtains a note from his doctor stating that the medication does not impair his driving ability. He is required to undergo a drug test before resuming work and is concerned about the presence of oxycodone in his system. He has not taken any pain medication since yesterday and is attempting to manage without it, but is unsure if he can continue this way. He is seeking advice on whether Advil, ibuprofen, or Tylenol would be more effective for daytime use, with the intention of reserving his stronger pain medication for nighttime use so he can work. He is experiencing sleep disturbances, with trazodone proving ineffective. He has tried melatonin without success and has only managed to sleep for two hours over the past two days. He has not discussed this issue with Dr. Eldridge. He has previously taken Valium and Flexeril, but these medications caused him to feel unwell. He is seeking a milder alternative that will not interfere with his driving ability. He reports issues with his dentures, which cause discomfort and tend to dislodge when he speaks. Hehas been informed that implants may be a suitable solution, but this decision will be made by his radiation doctors. He has not yet consulted with Dr. Joyner due to his medical leave. Oncology History Overview Note His oncologic history is as follows: History of early stage left lower lip cancer in 2019, resected by Dr. Meyers. In 2019, he developed a left neck mass, and underwent a thyroidectomy and neck dissection with post-operative chemotherapy given by [place] by Dr. Cruz and radiation therapy given in [place]. CT Neck and Face 12-10-23 CT face [...] nodes of head, face and neck (CMS/HCC) Problem List and Medications Reviewed and updated in this encounter by me personally Objective Performance Status 2: Ambulatory and capable of all self-care but unable to work. Up & about >50% waking hours Blood pressure (!) 154/99, pulse 66, temperature 36.3 ??C (97.3 ??F), temperature source Oral, resp. rate 16, height 1.778 m (5' 10 ), weight 88.8 kg (195 lb 12.3 oz), SpO2 100%. EXAM Physical Exam Constitutional: General: He is not in acute distress. Appearance: He is not ill-appearing. HENT: Head: Normocephalic and atraumatic. Comments: [...] no abdominal tenderness. Musculoskeletal: Cervical back: Tenderness (clavicular erythema resolved) present. Right lower leg: No edema. Left lower leg: No edema. Lymphadenopathy: Cervical: No cervical adenopathy. Neurological: Mental Status: He is alert and oriented to person, place, and time. Cranial Nerves: No cranial nerve deficit (subjective tinnitus) or dysarthria. Sensory: No sensory deficit. Psychiatric: Mood and Affect: Mood normal. Behavior: Behavior normal. LABORATORIES AND STUDIES: reviewed by me personally today to monitor for cancer related drug toxicity and treatment related intermediate toxicity CBC WBC 4.64 Hgb 12.9 PLT 209 HCT 38.3 Lab Results Component Value Date NEUTROABS 3.21 12/13/2024 BASIC METABOLIC PANEL Na 137 Cl 102 BUN 15 Gluc 121 K 3.9 Co2 24 Creat 0.72 LIVER FUNCTION TESTING Tot Prot 7.3 AST 24 Tot bili 0.9 ALT 12 Alkphos 90 Ca 9.2 Mg 2.2 Lab Results Component Value Date TSH 1.00 12/13/2024 Radiology: I independently visualized the recent imaging given the patient's symptoms and oncologic history 12-13-24 CT Chest wo Contrast 1. No evidence of metastatic disease. 2. Probable trace aspiration. 3. Improving effusion and bony erosion of the left sternoclavicular joint. Final report signed by Douglas Schofield MD on 12/13/2024 CT neck pending reading by radiology, but reviewed by me and stable from prior. 11-01-24 MRI 1. Probable infection in the L4-L5 articular facets. Superior and inferior articular facets appear irregular and probably destroyed. Inflammatory appearing soft tissue fills the L4-L5 foramen. 2. Large disc extrusion on the left at L5-S1 resulting in severe foraminal stenosis and mass-effecton the left S1 nerve root Christina Lewis M.D. Assessment/Plan Cancer management: Cancer Staging Squamous cell carcinoma, lip Staging form: Oral Cavity, AJCC 8th Edition - Pathologic stage from 01/06/2024: Stage IVB (rpTX, rpN3b, rcM0) - Signed by Viky Menon MDon 02/02/2024 - locally advanced recurrent lip cancer s/p resection [...] osteomyelitis. No evidence of active cancer. - RTC in 3M with labs/scans; RTC in 6W to see ENT with PET and/or after hospitalization 2. Pain related to neoplasm: - I have evaluated the prescription pain medications currently in use and recommended - Reports significant pain in the leg, particularly at night, exacerbated by movement. Previously taking oxycodone for pain relief but ran out of the medication. Advised to take 2 tablets of oxycodone in evening and bedtime so he will be able to work unimpaired in the am. Prescription for oxycodonewill be sent to the pharmacy. - Advised to take Advil or ibuprofen during the day for additional pain relief. A note will be provided stating that the medication will only be taken after work and at night for his employer. - If the pain persists, a referral to pain management will be considered. 3. Monitoring for the emergence of hypothyroidism - TSH is WITHIN NORMAL LIMITS at recent check - This will be periodically monitored as we continue therapy, due to the potential for worsening ofthyroid function from radiation and systemic cancer therapy. 4. Sleep issues: - Reports difficulty sleeping and that trazodone is not helping. Tried melatonin without success. Advised to discuss alternative sleep aids with Dr. Ibrahim 5. Dental issues: - Reports issues with dentures causing discomfort and dislodging when speaking. Informed that implants may be a suitable solution, but this decision will be made in consultation with radiation doctors. Viky Menon MD documented in this encounter Plan of Treatment Upcoming Encounters Date Type Department Care Team ([facility] st Contact Info) Description 12/21/2024 10:15 AM EDT Office Visit [facility] [address] [place] [address] Kelsey Cerda, DMD [address] [facility] [address] [place] [address] 02/10/2025 10:00 AM EST Office Visit [facility] [address] [place] [address] Abel Johnson MD [facility] [address] [place] [address] 03/10/2025 10:00 AM EST Appointment [facility] G Radiology [address] [place] [phone] 03/10/2025 1:15 PM EST Clinical Support Pav CC Head, Neck & Respiratory [address] [place] [address] 03/10/2025 2:00 PM EST Appointment [facility] Radiation [address] [facility]. [id number] [place] [address] Imer Sevilla MD [address] [facility] [address] [place] [address] 03/14/2025 3:40 PM EST Office Visit Pav [facility] Head, Neck & Respiratory [address] [facility], 2nd [place] [address] Viky Menon MD [address] [facility] [address] [place] [address] Scheduled Orders Name Type Priority Associated Diagnoses Orde r Schedule CT Soft Tissue Neck w IV Contrast Imaging Routine Squamous cell carcinoma, lip Expected: 03/11/2025 (Approximate), Expires: 06/09/2026 Thyroid Stimulating Hormone, Plasma Lab Routine Squamous cell carcinoma, lip Expected: 03/10/2025, Expires: 06/09/2026 CBC and Differential Lab Routine Squamous cell carcinoma, lip Expected: 03/10/2025, Expires: 06/09/2026 Comprehensive Metabolic Panel, Plasma Lab Routine Squamous cell carcinoma, lip Expected: 03/10/2025, Expires: 06/09/2026 Scheduled Procedures Name Priority Associated Diagnoses Date/Ti me WEDGE RESECTION, TRANSVERSE, LIP, WITH PRIMARY CLOSURE Squamous cell carcinoma, lip DILATION, ESOPHAGUS Squamous cell carcinoma, lip documented as of this encounter Visit Diagnoses Diagnosis Squamous cell carcinoma, lip- Primary Other malignant neoplasm of skin of lip Cancer related pain Dysphagia, oropharyngeal Dysphagia, oropharyngeal phase documented in [...] documented as of this encounter Care Teams Environmental Sampling Technician Relationship Specialty Start Date End Date Carson Ibrahim MD [facility] [address] [place] [address] PCP - General 11/20/23 Imer Sevilla MD [address] [facility] [address] [place] [address] Consulting Physician Radiation Oncology 02/27/24 Viky Menon MD 800 [facility] [address] [place] [phone] Consulting Physician Medical Oncology 04/21/24 Amelia Freeman, RN Registered Nurse Hematology and Oncology 05/13/24 documented as of this encounter
--- OUTSIDE RECORDS SUMMARY | 2024-12-15 05:15 | XMS_ITS ---
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 Factory Worker Name Role Phone Carson Ibrahim Primary Care Provider Allergies Allergen (clinical drug ingredient) Drug/Non Drug Allergy documented on EMR Reaction Allergy Type Onset Date Status Penicillin Rash Drug Allergy Active REASON FOR VISIT trouble sleeping, anxiety Medications Medication SIG (Take, Route, Frequency, Duration) Notes Start Date End Date Status Cyclobenzaprine HCl 5 MG 1 or 2 tablets as needed Orally 3 times a day 12/15/2024 Active Amitriptyline HCl 50 MG 1 tablet at bedt linette Orally Once a day; Duration: 30 days 12/15/2024 Active Carvedilol 6.25 MG 1 tablet with food O rally Twice a day Active Problems Problem Type SNOMED Code ICD Code Onset Dates Problem Status W/U Status Risk Notes Problem Primary insomnia (8476677) Primary insomnia (F51.01) Active confirmed Vital Signs Weight 191 lbs 12/15/2024 Blood pressure systolic 110 mm Hg 12/16/19 25 Blood pressure diastolic 74 mm Hg 025 Heart Rate 85 /min 12/15/2024 Height 69.5 in 12/15/2024 BMI 27.8 kg/m2 12/15/2024 Encounters Encounter Location Date Provider Diagnosis [facility] [address] KOM[place] Meyer [id number] 12/15/2024 Carson Ibrahim Primary insomnia F51.01 and Disorder of neck M53.82 Assessments Encounter Date Diagnosis (ICD Code) Assessment Notes Treatment Notes Treatment Clinical Notes Section Notes 12/15/2024 Primary insomnia (ICD-10 - F51.01) 12/15/2024 Disorder of neck (ICD-10 - M53.82) Plan Of Treatment Medication Medication Name Sig Start Date Stop Date Notes Cyclobenzaprine HCl 5 MG 1 or 2 tablets as needed Orally 3 times a day 12/15/2024 Amitriptyline HCl 50 MG 1 tablet at bedt linette Orally Once a day; Duration: 30 days 12/15/2024 Next Appt Details Follow Up: via phone to repo rt progress, Reason: Provider Name:Carson Esteban ry, 12/23/2024 09:45:00 AM, [address], [address], [place], [place], [id number], Progress Notes * NOE DANIELSOB:1975 (49 yo M)Acc No.[id number]:12/15/2024 Progress Notes Patient: PERRY JOHNSON Provider: Mila Ibrahim M.D. :1975 A ge:49 Y S ex:Male Date:12/15/2024 Address:[address] [place] [address] Subjective: * Chief Complaints: * 1 . Trouble sleeping, anxiety. * HPI: P sychology: 49 year old male presents with c/o sleep disturbances P t complains of having trouble sleeping. Pt states he stopped taking Oxycodone 3 days ago after being on it for 1 year. Pt states he does not feel good. Pt states when he lays down it feels like his throat is trying to close. c/o Anxiety. * Medical History: H ypertension, Dx: 2001, [...] stic Procedure: aiyana crow stone surgery , [facility] - UTI 11/08/2018, [facility] - Neck Surgery 10/13-. * Family [...] Twice a day , Discontinued oxyCODONE HCl 10 MG Tablet 1 tablet as needed Orally every 6 hrs , Medication List reviewed and reconciled with the patient * Allergies: P enicillin: Rash. Objective: * Vitals: W t: 191, Temp: 98.0, BP: 110/74, HR: 85, Nurse: jovanny, Ht: 69.5, BMI:27.8. * Examination: P sychology: General Appearance: N AD. G rooming : a dequate.?Eye contact : lamont ray. M ood : mindi knight. H eart: R SR. L ungs: vin lear to auscultation. Assessment: * Assessment: 1. P rimary insomnia - F51.01 (Primary) 2 . D isorder of neck - M53.82 Plan: * Treatment: 2. D isorder of neck Start Cyclobenzaprine HCl Tablet, 5 MG, 1 or 2 tablets as needed, Orally, 3 times a day, 30, Refills 1. * Follow Up: v ia phone to report progress * Images: Billing Information: * Visit Code: 15009 Office Visit, Est Pt., Level 3. * Procedure Codes: * Electronic signature of Alia Ibrahim MD on 12/16/2024 at 09:13 AM EDT Sign off status: Pending * Provider: Mila Ibrahim M.D. Date: 12/15/2024 Generated for Cristhian louis/Constanza/Dipakitting on: 12/16/2024 09:13 AM EDT History and Physical Notes * HPI (History of Present Illness) Category Sub-Category Detail Notes Category Not es Psychology sleep disturbances Pt complains of having trouble sleeping. Pt states he stopped taking Oxycodone 3 days ago after being on it for 1 year. Pt states he does not feel good. Pt states when he lays down it feels like his throat is trying to close Anxiety Examination Category Sub-Category Detail Notes Category Not es Psychology Heart: RSR Lungs: clear to auscultatio n General Appearance: NAD Grooming : adequate Eye contact : normal Mood : pleasant
--- OUTSIDE RECORDS SUMMARY | 2024-12-16 09:11 | XMS_ITS | Encounter Summary ---
Author Organization Healthcare Address [address] [place] [address] Care Team Providers Care Olericulturist Name Role Phone Carson Ibrahim MD Primary Care Provider + [phone] Imer Sevilla MD Unavailable Viky Menon MD Unavailable [phone] Amelia Freeman RN Unavailable Unavailable Reason for Visit * Reason Comments Resource Navigation Encounter Details Date Type Department Care Team (Late st Contact Info) Description 10/27/2024 Social Work Psych Oncology [address] [place] [address] Julieta Price Social History Tobacco Use Types [...] any time in the past 12 m [facility], were you homeless or [...] drink first t idalia in the morning (EYE-HEALTH SUPPORT SPECIALIST) to steady your nerves or to [...] * Progress Notes - Julieta Price - 10/27/2024 2:30 PM EDT Encounter Type: Phone Call Disease Status: Established Patient Clinic Location: [facility] Disease Type: Head & Neck Services Provided: Transportation Assistance Community Referrals: Medicaid Transportation Program Intervention Level: 3 Units (1 unit = 15 minutes): 2 Narrative: Pt called requesting assistance with transportation to scan at [facility] on 11/01 at 9:00 AM. Transportation arranged through [employer]. lubrication supervisor time 9:00. Confirmation #[id number]. Pt voiced understanding and appreciation for the assistance. No further needs identified. DROP WIRE STRINGER to remain available for any ongoing needs or support. Julieta Price, CATERER'S AIDE, DROP WIRE STRINGER [facility] Psych-Oncology Services documented in this encounter Plan of Treatment Upcoming Encounters Date Type Department Care Team (Late st Contact Info) Description 12/21/2024 10:15 AM EDT Office Visit [facility] [address] [place] [address] Kelsey Cerda, DMD [address] [place] [address] 02/10/2025 10:00 AM EST Office [facility] [address] [place] [phone] Abel Johnson MD [address] [facility] [address] [place] [address] 03/10/2025 10:00 AM EST Appointment [facility] Radiology [address] [place] [address] 03/10/2025 1:15 PM EST Clinical Support Pav CC Head, Neck & Respiratory [address] [facility], [address]nd [place] [address] 03/10/2025 2:00 PM EST Appointment [facility] Radiation [address] [facility]. [id number] [place] [phone] Imer Sevilla MD [address] [facility] [address] [place] [address] 03/14/2025 3:40 PM EST Office Visit [facility] CC Head, Neck & Respiratory [address] [facility], [address]nd [place] [address] Viky Menon MD [address] [facility] [address] [place] [address] Scheduled Procedures Name Priority Associated [...] documented as of this encounter Care Teams Olericulturist Relationship Specialty Start Date End Date Carson Ibrahim MD [address] [facility] [address] [place] [address] PCP - General 11/20/23 Imer Sevilla MD [address] [facility] [address] [place] [address] Consulting Physician Radiation Oncology 02/27/24 Viky Menon MD 800 [facility] [address] [place] [phone] Consulting Physician Medical Oncology 04/21/24 Amelia Freeman, RN Registered Nurse Hematology and Oncology 05/13/24 documented as of this encounter
--- OUTSIDE RECORDS SUMMARY | 2024-12-16 09:11 | XMS_ITS | Encounter Summary ---
Author Organization Healthcare Address [address] [place] [address] Care Team Providers Care Managed Care Liaison Name Role Phone Carson Ibrahim MD Primary Care Provider + [phone] Imer Sevilla MD Unavailable Viky Menon MD Unavailable [phone] Amelia Freeman RN Unavailable Unavailable Encounter Details Date Type Department Care Team (Late st Contact Info) Description 11/03/2024 Orders Only [facility] Vascular Interventional Radiology [address], [place] [address] [place] [phone] Yvette Escobar, RN [facility] VASCULAR INTERV RADIOL CLINIC Encounter for other preprocedural examination (Primary Dx) Social History Tobacco Use Types [...] drink first t idalia in the morning (EYE-PITTING MACHINE OPERATOR) to steady your nerves or to get rid of a hangover? 0 07/22/2024 CAGE Questionnaire Score 0 025 Utilities Answer Date Recorded In the past 12 months has th e [employer], gas, oil, or water [employer] threatened to shut off services in your [...] AM Bettie Barnes Feeling tired or having little energy Several days 11/05/2024 8:08 AM Bettie [...] some way Several days 11/05/2024 8:08 AM EDT Cristina Wayne Patient Health Questionnaire-9 Score 9 11/05/2024 8:08 AM EDT Cristina Wayne * How difficult have these problems made [...] difficult 11/05/2024 8:08 AM EDT Bettie Olivera documented as of this encounter Plan of Treatment Upcoming Encounters Date Type Department Care Team (Late st Contact Info) Description 12/21/2024 10:15 AM EDT Office Visit [place] [facility] [address] [place] [address] Kelsey Cerda, DMD [address] [facility] [address] [place] [address] 02/10/2025 10:00 AM EST Office Visit [facility] [address] [facility] [place] [address] Abel Johnson MD [address] [facility] [address] [place] [address] 03/10/2025 10:00 AM EST Appointment PAV G Radiology [address] [place] [address] 03/10/2025 1:15 PM EST Clinical Support [facility] [address] [facility], 2nd [place] [address] 03/10/2025 2:00 PM EST Appointment PAV CC Radiation [address] [facility] [place] [address] Imer Sevilla MD [address] [facility] [address] [place] [address] 03/14/2025 3:40 PM EST Office Visit [facility] Res[facility] [address] 2nd [place] [address] Viky Menon MD [address] [facility] [address] [facility] [address] [place] [address] Scheduled Procedures Name Priority Associated Diagnoses Date/Ti me WEDGE RESECTION, TRANSVERSE, LIP, WITH PRIMARY CLOSURE Squamous cell carcinoma, lip DILATION, ESOPHAGUS Squamous cell carcinoma, lip documented as of this encounter Results * (ABNORMAL) Prothrombin Time/INR (11/05/2024 8:45 AM EDT) Prothrombin Time 14.4(H) 12.0 - 14.3 sec LAB COAGULATION METHOD 11/05/2024 10:20 AM EDT [facility] INR 1.1 0.9 - 1.1 LAB COAGULATION METHOD 11/05/2024 10:20 AM EDT [facility] Blood Venous blood specimen / Unknown Venipuncture / Unknown 11/05/2024 8:45 AM EDT 11/05/2024 8:45 AM EDT Narrative [facility] - 11/05/2024 10:20 AM EDT OPTIMAL INR RANGES FOR PATIENT ON ORAL ANTICOAGULANT THERAPY Prevention of venous thromboembolism INR 2.0 to 3.0 In patients with heart disease: Atrial fibrillation INR 2.0 to 3.0 Valvular heart disease INR 2.0 to 3.0 Tissue heart valves INR 2.0 to 3.0 Mechanical prosthetic valves INR 2.5 to 3.5 Prevention of recurrent OK INR 2.5 to 3.5 us Tessa Rockwell APRN LAB BLOOD ORDERABLES Final R esult [facility] [address] [place] [address] documented in this encounter Visit Diagnoses Diagnosis Encounter for other preprocedural examination- Primary documented in this encounter Additional Health [...] documented as of this encounter Care Teams Managed Care Liaison Relationship Specialty Start Date End Date Carson Ibrahim MD [address] [facility] [address] [place] [address] PCP - General 11/20/23 Imer Sevilla MD [address] [facility] [address] [place] [address] Consulting Physician Radiation Oncology 02/27/24 Viky Menon MD [address] [facility] [address] [facility] [address] [place] [address] Consulting Physician Medical Oncology 04/21/24 Amelia Freeman, RN Registered Nurse Hematology and Oncology 05/13/24 documented as of this encounter
--- OUTSIDE RECORDS SUMMARY | 2024-12-16 09:11 | XMS_ITS | Encounter Summary ---
Author Organization Healthcare Address [address] [place] [address] Care Team Providers Care Chief Marketing Officer Name Role Phone Carson Ibrahim MD Primary Care Provider + [phone] Imer Sevilla MD Unavailable Viky Menon MD Unavailable [phone] Amelia Freeman RN Unavailable Unavailable Reason for Visit * Reason Comments Resource Navigation Encounter Details Date Type Department Care Team (Late st Contact Info) Description 10/28/2024 Social Work Psych Oncology [address] [place] [address] Julieta Price Social History Tobacco Use Types [...] drink first t idalia in the morning (EYE-COTTON CONVERTER) to steady your nerves or to get [...] * Progress Notes - Julieta Price - 10/28/2024 4:25 PM EDT Encounter Type: Phone Call Disease Status: Established Patient Clinic Location: [facility] Disease Type: Skin Services Provided: Transportation Assistance Community Referrals: Medicaid Transportation Program Intervention Level: 3 Units (1 unit = 15 minutes): 1 Narrative: Phone call received from pt requesting assistance with transportation for appts on 11/05 (pecan picker 5:45 confirmation #[id number]), 11/09, (pecan picker time 10:30 [id number]) and 11/18 (pecan picker time 7:40 confirmation #[id number]) . Transportation arranged through [employer]. Details relayed verbally to pt over the phone.Pt voiced understanding and appreciation for the assistance. No further needs identified. BEATER ROOM HELPER to remain available for any ongoing needs or support. Julieta Price, INTELLIGENCE ANALYST, BEATER ROOM HELPER [facility] documented in this encounter Plan of Treatment Upcoming Encounters Date Type Department Care Team (Late st Contact Info) Description 12/21/2024 10:15 AM EDT Office Visit [place] [facility] [address] [place] [address] Kelsey Cerda, DMD [address] [place] [address] 02/10/2025 10:00 AM EST Office Visit [facility] [address] [facility] [place] [address] Abel Johnson MD [address] [facility] [address] [place] [address] 03/10/2025 10:00 AM EST Appointment PAV G Radiology [address] [place] [address] 03/10/2025 1:15 PM EST Clinical Support Pav CC Head, Neck & Respiratory [address] [facility], 2nd [place] [address] 03/10/2025 2:00 PM EST Appointment PAV CC Radiation [address] [place] [address] Imer Sevilla MD [address] [facility] [address] [place] [address] 03/14/2025 3:40 PM EST Office Visit Pav [facility] Head[facility] Neck & Respiratory [address] [place] [address] Viky Menon MD [address] [facility] [address] [place] [address] Scheduled Procedures Name Priority Associated Diagnoses Date/Ti [...] documented as of this encounter Care Teams Chief Marketing Officer Relationship Specialty Start Date End Date Carson Ibrahim MD [address] [facility] [address] [place] [address] PCP - General 11/20/23 Imer Sevilla MD [address] [facility] [address] [place] [address] Consulting Physician Radiation Oncology 02/27/24 Viky Menon MD [address] [facility] [address] [facility] [address] [place] [address] Consulting Physician Medical Oncology 04/21/24 Amelia Freeman, RN Registered Nurse Hematology and Oncology 05/13/24 documented as of this encounter
--- OUTSIDE RECORDS SUMMARY | 2024-12-16 09:11 | XMS_ITS | Patient Health Record ---
Author Organization [facility] Address [address] [facility] [address] [facility] [address] [place] [phone] Care Team Providers Care Database Support Name Role Phone Carson Ibrahim Primary Care [...] Not Detected NotDetected Urinalysis - Inhouse Reviewed date:10/13/2024 10:22:33 PM Interpretation: Performing Lab: Notes/Report: Color/Clarity Yellow/Clear Leuk 2+ Nitrite Neg Urobili 3.2 Protein Neg pH 5.5 Blood 1+ Sp. Gr. <=1.005 Ketone Neg Bili Neg Gluc Neg CBC Venipuncture (in house) Reviewed date:07/20/2024 09:38:09 [...] 0.9 Performing Lab: Notes/Report: Test performed by [facility] [address] [place], [place] [address] [address] , [address], [place] [address] Calos Chacon MD, After School Driver CLIA: [id number] Sodium 139 135-145 mmol/L Potassium 4.5 3.5-5.3 [...] Growth Performing Lab: Notes/Report: Test performed by [facility] [address] [place], [place] [address] [address] , [address], [place] [address] Calos Chacon MD, After School Driver CLIA: [id number] Specimen Source Blood Culture, Blood See Below No Growth at 24 hours No Growth at 5 Days P-TSH reflex to FT4 Reviewed date:07/22/2024 11:07:25 AM Interpretation:Normal Performing Lab: Notes/Report: Test performed by [facility] [address] [place] [address] , [address], [place] [address] Calos Chacon MD, After School Driver CLIA: [id number] TSH reflex to FT4 1.59 0.43-5.25 mU/L Glycohemoglobin A1c (in hous e) Reviewed date:10/13/2024 10:22:21 PM Interpretation:5.4 Performing Lab: Notes/Report: 5.4 glycohemoglobin 5.4% 5 - 6.5 % Urinalysis - Inhouse Reviewed date:10/13/2024 10:22:05 PM Interpretation: Performing Lab: Notes/Report: Color/Clarity Yellow/Clear Leuk 2+ Nitrite Neg Urobili 3.2 Protein Neg pH 5.5 Blood 1+ Sp. Gr. <=1.005 Ketone Neg Bili Neg Gluc Neg P-Culture, Urine Reviewed date:10/15/2024 12:21:19 PM Interpretation:No growth Performing Lab: Notes/Report: Test performed by [facility] [address] [place] [address] , [address], [place] [address] Calos Chacon MD, After School Driver CLIA: [id number] Specimen Source Urine - Void Culture, Urine [...] 11:11:02 AM Interpretation:Negative Performing Lab: Notes/Report: Negative Glycohemoglobin A1c (in hous e) Reviewed date:10/20/2024 04:06:50 PM Interpretation:5.4 Performing Lab: Notes/Report: 5.4 glycohemoglobin 5.4 5 - 6.5 % Reason For Referral Reason Echo done at Diagnosis 1 HFrEF (heart failure with reduced ejection fraction) (I50.20) [facility] Referring Provider First Name Carson Referring Provider Last Name Patrice Referring Provider [facility] ctice Referred Provider Mildred Martin Referred Provider Specialty Cardiovascul ar Disease General Notes Eliana Najera 2024 01:16:57 PM > faxed to [facility] Scheduling, Eliana Najera 08/06/2024 03:35:45 PM [...] back pain, unspe cified (M54.50) Referral Organization [facility] Referring Provider First Name Carson Referring Provider Last Name Patrice Referring Provider [facility] ctice Referred Provider Jarvis Dasilva Referred Provider Specialty Pain Managem ent General Notes Eliana Najera 2024 11:09:01 AM > faxed to [facility] Pain Management Referral Priority Routine Medications Medication SIG (Take, Route, Frequency, Duration) Notes Start Date End Date Status Cyclobenzaprine HCl 5 MG 1 or 2 tablets as needed Orally 3 times a day 12/15/2024 Active Amitriptyline HCl 50 MG 1 tablet at bedt linette Orally Once a day; Duration: 30 days 12/15/2024 Active Carvedilol 6.25 MG 1 tablet with food O rally Twice a day Active Immunizations Vaccine Route Administration Date Status Comme nts COVID 19 Gurpreet Unknown 06/27/2020 Administered Fluzone Quad (6months&older) IM Intramuscular 01/11/2020 Administered Problems Problem Type SNOMED Code ICD Code Onset Dates Problem Status W/U Status Risk Notes Problem Essential hypertension (03022806) Essential hypertension (I10) Active confirmed Problem Morbid obesity (459684746) Morbid obesity (E66.01) Active confirmed Problem Arthropathy of lumbar facet joint (512175701) Lumbar facet arthropathy (M47.816) Active confirmed Problem Obesity due to excess calories (898796518) Other obesity due to excess calories (E66.09) Active confirmed Problem Mixed hyperlipidemia (520004854) Mixed hyperlipidemia (E78.2) Active confirmed Problem Primary insomnia (3441024) Primary insomnia (F51.01) Active confirmed Problem Chronic pain (05021399) Other chronic pain (G89.29) Active confirmed Problem Anemia (654489964) Anemia, unspecified type (D64.9) Active confirmed Problem Disorder of neck (647578391) Disorder of neck (M53.82) Active confirmed Problem Type II diabetes mellitus without complication (674893493) Type 2 diabetes mellitus without complication, without long-term current use of insulin (E11.9) Active confirmed Problem Spinal stenosis of lumbar region (96772824) Spinal stenosis of lumbar region without neurogenic claudication (M48.061) Active confirmed Problem Lumbar spinal stenosis (78706151) Lumbar foraminal stenosis (M48.061) Active confirmed Problem Spinal stenosis of lumbar region (41746622) Foraminal stenosis of lumbar region (M48.061) Active confirmed Problem Secondary malignant neoplastic disease (099335869) 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) Active confirmed Problem Systolic heart failure (932991656) HFrEF (heart failure with reduced ejection fraction) (I50.20) Active confirmed Vital Signs Heart Rate 85 /min 12/15/2024 Blood pressure diastolic 74 mm Hg 12/15/2024 Height 69.5 in 12/15/2024 Blood pressure systolic 110 mm Hg 12/15/2024 Weight 191 lbs 12/15/2024 BMI 27.8 kg/m2 12/15/2024 Encounters Encounter Location Date Provider Diagnosis [facility] [address] [place] [id number] 01/23/2024 Carson [place] 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 C79.89 [facility] [address] [facility] [address] [place], [place] [id number] 05/25/2024 Carson [place] Dysuria R30.0 ; Pyur ia R82.81 ; Heartburn R12 and Type 2 diabetes mellitus without complication, without long-term current use of insulin E11.9 [facility] [address] [facility] [address] [place] [id number] 06/23/2024 Carson [place] Acute bilateral low back pain without sciatica M54.50 and Muscle spasm of back M62.830 [facility] [address] [facility] [address] [place] [id number] 07/19/2024 Carson [place] Bacteremia R78.81 ; Methicillin resistant Staphylococcus aureus infection as the cause of diseases classified elsewhere B95.62 ; Acute UTI N39.0 ; C. difficile colitis A04.72 ; Generalized weakness R53.1 ; Anemia, unspecified type D64.9 and Right-sided low back pain without sciatica, unspecified chronicity M54.50 [facility] [address] [facility] [address] [place] [id number] 08/04/2024 Carson [place] Infection of clavicl e M86.9 ; HFrEF (heart failure with reduced ejection fraction) I50.20 and BMI 29.0-29.9,adult Z68.29 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 [address] [facility] [address] [place] [id number] 10/13/2024 Carson [place] Encounter for Depart ment 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 ernie license Z02.4 and Type 2 diabetes mellitus without complication, without long-term current use of insulin E11.9 [facility] [address] [place], [place] [id number] 10/13/2024 Carson [place] Acute UTI N39.0 and Type 2 diabetes mellitus without complication, without long-term current use of insulin E11.9 [facility] [address] [place], [place] [id number] 10/19/2024 Carson [place] Thoracic discitis M4 6.44 and Pain in thoracic spine M54.6 [facility] [address] [place] [id number] 11/02/2024 Carson [place] Other chronic pain G 89.29 ; Low back pain, unspecified M54.50 ; Abnormal MRI, lumbar spine R93.7 and BMI 27.0-27.9,adult Z68.27 [facility] [address] [place], [place] [id number] 11/30/2024 Carson [place] Low back pain, unspecified M54.50 ; Disorder of neck M53.82 and BMI 27.0-27.9,adult Z68.27 [facility] [address] [place], [place] [id number] 12/15/2024 Carson [place] Primary insomnia F51 .01 and Disorder of neck M53.82 [facility] [address] [place], [place] [id number] 01/19/2024 Carson [place] [facility] [address] [place], [place] [id number] 01/20/2024 Carson [place] [facility] [address] [place] [id number] 01/28/2024 Carson [place] [facility] [address] [place] [id number] 02/05/2024 Carson [place] [facility] [address] [place] [id number] 03/04/2024 Carson [place] [facility] [address] [place] [id number] 06/29/2024 Carson [place] [facility] [address] [place], [place] [id number] 07/22/2024 Carson [place] [facility] [address] [place], [place] [id number] 09/09/2024 Carson [place] [facility] [address] [place], [place] [id number] 10/26/2024 Carson Ibrahim Assessments Encounter Date Diagnosis (ICD Code) Assessment [...] Recent Echo from and stress test from [facility] reviewed with patient in office today. [...] with infectious disease doctor in 2 days 11/02/2024 Other chronic pain (ICD-10 - G89.29) 11/02/2024 Low back pain, unspecified (ICD-10 - M54.50) 11/30/2024 Disorder of neck (ICD-10 - M53.82) 11/30/2024 Low back pain, unspecified (ICD-10 - M54.50) Improved 12/15/2024 Primary insomnia (ICD-10 - F51.01) 12/15/2024 Disorder of neck (ICD-10 - M53.82) 11/30/2024 BMI 27.0-27.9,adult (ICD-10 - Z68.27) 11/02/2024 Abnormal MRI, lumbar spine (ICD-10 - R93.7) Patient to follow with Dr. Johnson, ID at , by phone today. He has appt. at on 11/05/24 09/01/2024 Low back pain, unspecified (ICD-10 - M54.50) 10/13/2024 Type 2 diabetes mellitus without complication, without long-term current use of insulin (ICD-10 - E11.9) 07/19/2024 Acute UTI (ICD-10 - N39.0) 08/04/2024 BMI 29.0-29.9,adult (ICD-10 - Z68.29) 05/25/2024 Heartburn (ICD-10 - R12) 05/25/2024 Type 2 diabetes mellitus without complication, without long-term current use of insulin (ICD-10 - E11.9) 07/19/2024 C. difficile colitis (ICD-10 - A04.72) 09/01/2024 Degeneration of intervertebral disc of lumbar region with discogenic back pain (ICD-10 - M51.360) 11/02/2024 BMI 27.0-27.9,adult (ICD-10 - Z68.27) 07/19/2024 Generalized weakness (ICD-10 - R53.1) 09/01/2024 [...] Treatment Next Appt Details Provider Name:Carson riley, 12/23/2024 09:45:00 AM, [address], [place], [place], [id number], Insurance Providers Payer Name Payer Address Payer Phone Subscriber Number Group Number Insured Name Patient Relationship to Insured Coverage Start Date Coverage End Date [facility] [facility] [id number] [place], [place] [id number] PERRY DANIELS Self - patient is the [...] Carcinom a 10/14/2019 Hospitalization History Reason Date(Month/Year) [facility] - Neck Surgery 10/13- [facility] ER - UTI 11/08/2018 kidney stone surgery
--- OUTSIDE RECORDS SUMMARY | 2024-12-16 09:11 | XMS_ITS | Encounter Summary ---
Author Organization Healthcare Address [address] [place] [address] Care Team Providers Care Adjuster Piano Action Name Role Phone Carson Ibrahim MD Primary Care Provider + [phone] Imer Sevilla MD Unavailable Viky Menon MD Unavailable [phone] Amelia Freeman RN Unavailable Unavailable Reason for Visit * Reason Comments Resource Navigation Encounter Details Date Type Department Care Team (Late st Contact Info) Description 10/28/2024 Social Work Psych Oncology [address] [place] [address] Julieta Price Social History Tobacco Use Types [...] any time in the past 12 m [facility], were you homeless or [...] first t idalia in the morning (EYE-AUTO HEATER MECHANIC) to steady your nerves or to [...] Description 12/21/2024 10:15 AM EDT Office Visit [place] [facility] [address] [place] [address] Kelsey Cerda, DMD [address] [facility] [address] [place] [address] 02/10/2025 10:00 AM EST Office Visit [facility] [address] [facility] [place] [address] Abel Johnson MD [address] [facility] [address] [place] [address] 03/10/2025 10:00 AM EST Appointment P[facility] G Radiology [address] [place] [address] 03/10/2025 1:15 PM EST Clinical Support Pav [facility] Respiratory [address] [facility], 2nd [place] [address] 03/10/2025 2:00 PM EST Appointment [facility] CC Radiation [address] [place] [address] Imer Sevilla MD [address] [facility] [address] [place] [address] 03/14/2025 3:40 PM EST Office Visit [facility] Res[facility] [address] [place] [address] Viky Menon MD [address] [facility] [address] [facility] [address] [place] [address] Scheduled Procedures Name Priority Associated Diagnoses Date/Ti [...] documented as of this encounter Care Teams Adjuster Piano Action Relationship Specialty Start Date End Date Carson Ibrahim MD [address] [place] [address] PCP - General 11/20/23 Imer Sevilla MD [address] [facility] [address] [place] [address] Consulting Physician Radiation Oncology 02/27/24 Viky Menon MD [address] [facility] [address] [facility] [address] [place] [address] Consulting Physician Medical Oncology 04/21/24 Amelia Freeman, RN Registered Nurse Hematology and Oncology 05/13/24 documented as of this encounter
--- OUTSIDE RECORDS SUMMARY | 2024-12-16 09:11 | XMS_ITS | Encounter Summary ---
Author Organization Healthcare Address [address] [place] [address] Care Team Providers Care Electrical Appliance Mechanic Name Role Phone Carson Ibrahim MD Primary Care Provider + [phone] Imer Sevilla MD Unavailable Viky Menon MD Unavailable [phone] Amelia Freeman RN Unavailable Unavailable Reason for Visit * Reason Comments Resource Navigation Encounter Details Date Type Department Care Team (Late st Contact Info) Description 11/05/2024 Social Work Psych Oncology [address] [place] [address] Tamar Cruz Social History Tobacco Use Types [...] any time in the past 12 m [facility], were you homeless or [...] drink first t idalia in the morning (EYE-PILOT PLANT TECHNICIAN) to steady your nerves or to get rid of a hangover? 0 07/22/2024 CAGE Questionnaire Score 0 025 Utilities Answer Date Recorded In the past 12 months has e [employer], gas, oil, or water [employer] threatened to shut off services in your [...] Questionnaire -9 Score 9 11/05/2024 8:08 AM EDT Bettie Wayne * How difficult have these problems [...] Assessment Author Somewhat difficult 11/05/2024 8:08 AM EDBettie Pretty documented as of this encounter Miscellaneous Notes * Progress Notes - Tamar Cruz - 11/05/2024 2:51 PM EDT Encounter Type: Phone Call Disease Status: Established Patient Clinic Location: [facility] Disease Type: Head & Neck Services Provided: Transportation Assistance Education Provided: Transportation Community Referrals: Medicaid Transportation Program Intervention Level: 3 Units (1 unit = 15 minutes): 2 Narrative: FINANCIAL OPERATIONS CONSULTANT contacted pt regarding transportation for upcoming appts. FINANCIAL OPERATIONS CONSULTANT introduced self and nature of thecall. Pt was pleasant and engaging. Pt disclosed that he needs assistance scheduling [facility] for upcoming appts in November. FINANCIAL OPERATIONS CONSULTANT expressed understanding and committed to arranging transport. Pt was appreciative for the assistance and denied additional needs at this time. FINANCIAL OPERATIONS CONSULTANT scheduled transportation for 11/23 (7AM lemon picker/#[id number]). FINANCIAL OPERATIONS CONSULTANT to schedule additional transport for November once 30 day scheduling window opens. FINANCIAL OPERATIONS CONSULTANT additionally checked for confirmation for 11/08 appts and transportation was unable to be scheduled for this date due to being within 72 hour window. FINANCIAL OPERATIONS CONSULTANT worked with Adult Dentistry at [facility] to reschedule appt for 11/09 at 1115AM. FINANCIAL OPERATIONS CONSULTANT updated transportation for earlier lemon picker at 9AM (#[id number]). FINANCIAL OPERATIONS CONSULTANT followed up with pt to provide him with confirmations and schedule updates. Pt was understanding and denied additional questions or needs at thistime. FINANCIAL OPERATIONS CONSULTANT encouraged pt to follow up as needed. FINANCIAL OPERATIONS CONSULTANT remains available ongoing prn. Tamar LAWS, KIMBERLY [phone] documented in this encounter Plan of Treatment Upcoming Encounters Date Type Department Care Team (Late st Contact Info) Description 12/21/2024 10:15 AM EDT Office Visit [place] [facility] [address]nd [place] [address] Kelsey Cerda, DMD [address] [facility] [address] [place] [address] 02/10/2025 10:00 AM EST Office Visit [facility] [address] [place] [address] Abel Johnson MD [address]01 [facility] [address] [place] [address] 03/10/2025 10:00 AM EST Appointment P[facility] G Radiology [address] [place] [address] 03/10/2025 1:15 PM EST Clinical Support Pav CC Head, Neck & Respiratory [address] [facility], 2nd [place] [address] 03/10/2025 2:00 PM EST Appointment P[facility] CC Radiation [address] [id number] [place] [address] Imer Sevilla MD 800 [facility] [address] [place] [address] 03/14/2025 3:40 PM EST Office Visit [facility] Head, Neck & Respiratory [address] [facility], 2nd [place] [address] Viky Menon MD [address] [facility] [address] [place] [address] Scheduled Procedures Name Priority Associated Diagnoses Date/Ti [...] documented as of this encounter Care Teams Electrical Appliance Mechanic Relationship Specialty Start Date End Date Carson Ibrahim MD [facility] [place] [address] PCP - General 11/20/23 Imer Sevilla MD 800 [facility] [address] [place] [address] Consulting Physician Radiation Oncology 02/27/24 Viky Menon MD 800 [facility] [address] [place] [address] Consulting Physician Medical Oncology 04/21/24 Amelia Freeman, RN Registered Nurse Hematology and Oncology 05/13/24 documented as of this encounter
--- OUTSIDE RECORDS SUMMARY | 2024-12-16 09:11 | XMS_ITS | Encounter Summary ---
Author Organization [facility] Address [address] [place] [address] Care Team Providers Care Wheel Blocker Name Role Phone Carson Ibrahim MD Primary Care Provider + [phone] Imer Sevilla MD Unavailable Viky Menon MD Unavailable [phone] Amelia Freeman RN Unavailable Unavailable Encounter Details Date Type Department Care Team (Latest Contact Info) Description 11/05/2024 Travel Social History Tobacco Use Types Packs/Day [...] drink first t idalia in the morning (EYE-TURNER SPLITTER MACHINE OPERATOR) to steady your nerves or to get rid of a hangover? 0 07/22/2024 CAGE Questionnaire Score 0 025 Utilities Answer Date Recorded In the past 12 months has [facility], gas, oil, or water [employer] threatened to shut off services in your [...] Description 12/21/2024 10:15 AM EDT Office Visit [place] [facility] [address] [place] [address] Kelsey Cerda, DMD [address] [facility] [address] [place] [address] 02/10/2025 10:00 AM EST Office Visit [facility] [address] [facility] [place] [address] Abel Johnson MD 3101 [facility] [address] [place] [address] 03/10/2025 10:00 AM EST Appointment PAV G Radiology [address] [place] [address] 03/10/2025 1:15 PM EST Clinical Support Pav CC Head, Neck & Respiratory 800 [facility], 2nd [place] [address] 03/10/2025 2:00 PM EST Appointment P[facility] CC Radiation [id number] [place] [address] Imer Sevilla MD 800 [facility] [address] [place] [address] 03/14/2025 3:40 PM EST Office Visit Pav CC Head, Neck & Respiratory [address] [facility], 2nd [place] [address] Viky Menon MD [address] [facility] 134 [place] [address] Scheduled Procedures Name Priority Associated Diagnoses Date/Ti [...] as of this encounter Care Teams Wheel Blocker Relationship Specialty Start Date End Date Carson Ibrahim MD 1210 [facility] [address] [place] [address] PCP - General 11/20/23 Imer Sevilla MD [address] [facility] [address] [place] [address] Consulting Physician Radiation Oncology 02/27/24 Viky Menon MD [address] [facility] 134 [place] [address] Consulting Physician Medical Oncology 04/21/24 Amelia Freeman, RN Registered Nurse Hematology and Oncology 05/13/24 documented as of this encounter
--- OUTSIDE RECORDS SUMMARY | 2024-12-16 09:11 | XMS_ITS | Encounter Summary ---
Author Organization [facility] Address [address] [place] [address] Care Team Providers Care Long Term Name Role Phone Carson Ibrahim MD Primary Care Provider + [phone] Imer Sevilla MD Unavailable Viky Menon MD Unavailable [phone] Amelia Freeman RN Unavailable Unavailable Encounter Details Date Type Department Care Team (Latest Contact Info) Description 11/01/2024 Travel Social History Tobacco Use Types Packs/Day [...] drink first t idalia in the morning (EYE-ROUTER OPERATOR) to steady your nerves or to [...] Description 12/21/2024 10:15 AM EDT Office Visit [place] [facility] [address] [place] [address] Kelsey Cerda, DMD [address] [facility] [address] [place] [address] 02/10/2025 10:00 AM EST Office Visit [facility] [address] [facility] [place] [address] Abel Johnson MD 3101 [facility] [address] [place] [address] 03/10/2025 10:00 AM EST Appointment P[facility] G Radiology [address] [place] [address] 03/10/2025 1:15 PM EST Clinical Support Pav CC Head, Neck & Respiratory [address] 2[address] [place] [address] 03/10/2025 2:00 PM EST Appointment P[facility] CC Radiation [id number] [place] [address] Imer Sevilla MD [address] [place] [address] 03/14/2025 3:40 PM EST Office Visit Pav CC Head, Neck & Respiratory [address] [place] [address] Viky Menon MD [address] Hester [facility] [address] [place] [address] Scheduled Procedures Name Priority Associated Diagnoses Date/Ti [...] documented as of this encounter Care Teams Long Term Relationship Specialty Start Date End Date Carson Ibrahim MD [address] [place] [address] PCP - General 11/20/23 Imer Sevilla MD [address] [facility] [address] [place] [address] Consulting Physician Radiation Oncology 02/27/24 Viky Menon MD [address] [facility] [address] [place] [address] Consulting Physician Medical Oncology 04/21/24 Amelia Freeman, RN Registered Nurse Hematology and Oncology 05/13/24 documented as of this encounter
--- OUTSIDE RECORDS SUMMARY | 2024-12-16 09:12 | XMS_ITS | Referral Summary ---
Author Organization [employer] ([place], [place], [place], [place]) Address [address] [place] [address] Care Team Providers Care Fixed Route Bus Operator Name Role Phone Unavailable Primary Care [...] Date Mckay rded Speak language other than Togolese at home Not on file 11/07/2023 Want [...]
--- OUTSIDE RECORDS SUMMARY | 2024-12-16 09:12 | XMS_ITS | Encounter Summary ---
Author Organization [facility] Address [address] [place] [address] Care Team Providers Care Histologist Technologist Name Role Phone Carson Ibrahim MD Primary Care Provider + [phone] Imer Sevilla MD Unavailable Viky Menon MD Unavailable [phone] Amelia Freeman RN Unavailable Unavailable Encounter Details Date Type Department Care Team (Latest Contact Info) Description 11/09/2024 Travel Social History Tobacco Use Types Packs/Day [...] any time in the past 12 m [facility], were you homeless or living in a [...] drink first t idalia in the morning (EYE-SNORKELLING INSTRUCTOR) to steady your nerves or to [...] Charmaine Reyes 6. Suicidal Behavior (Lifetime) No 1:45 PM EDT Charmaine Reyes documented as of this encounter Plan of Treatment Upcoming Encounters Date Type Department Care Team (Late st Contact Info) Description 12/21/2024 10:15 AM EDT Office Visit [place] [facility] [address]nd [place] [address] Kelsey Cerda, DMD [address] [place] [address] 02/10/2025 10:00 AM EST Office Visit [facility] [address] [place] [address] Abel Johnson MD 3101 [facility] [address] [place] [address] 03/10/2025 10:00 AM EST Appointment P[facility] G Radiology [address] [place] [address] 03/10/2025 1:15 PM EST Clinical Support Pav CC Head, Neck & Respiratory 800 [facility], 2nd [place] [address] 03/10/2025 2:00 PM EST Appointment PAV CC Radiation [address] [facility]. [id number] [place] [address] Imer Sevilla MD [address] [facility] [address] [place] [address] 03/14/2025 3:40 PM EST Office Visit Pav CC Head, Neck & Respiratory 800 [facility], 2nd [place] [address] Viky Menon MD [address] [facility] [address] [facility] 134 [place] [address] Scheduled Procedures Name Priority Associated [...] documented as of this encounter Care Teams Histologist Technologist Relationship Specialty Start Date End Date Carson Ibrahim MD 1210 [facility] [address] [place] [address] PCP - General 11/20/23 Imer Sevilla MD [address] [place], [place] [address]D [place] [address] Consulting Physician Radiation Oncology 02/27/24 Viky Menon MD [address] [place] [address] St Liz Hester [facility] [address] [place] [address] Consulting Physician Medical Oncology 04/21/24 Amelia Freeman, RN Registered Nurse Hematology and Oncology 05/13/24 documented as of this encounter
--- OUTSIDE RECORDS SUMMARY | 2024-12-16 09:12 | XMS_ITS | Encounter Summary ---
Author Organization Healthcare Address [address] [place] [address] Care Team Providers Care Coal Mill Operator Name Role Phone Carson Ibrahim MD Primary Care Provider + [phone] Imer Sevilla MD Unavailable Viky Menon MD Unavailable [phone] Amelia Freeman RN Unavailable Unavailable Encounter Details Date Type Department Care Team (Late st Contact Info) Description 11/15/2024 Results Follow-Up [facility] [address] [place] [address] Abel Johnson MD [address] [place] [address] [address] [place] [address] Social History Tobacco Use Types [...] in the past 12 m [facility], were you homeless or living in a [...] drink first t idalia in the morning (EYE-TUBE HANDLER) to steady your nerves or to get rid of a hangover? 0 07/22/2024 CAGE Questionnaire Score 0 025 Utilities Answer Date Recorded In the past 12 months has th e [employer], gas, oil, or water company threatened to [...] Description 12/21/2024 10:15 AM EDT Office Visit [place] [facility] [address] [place] [address] Kelsey Cerda, DMD [address] [place] [address] 02/10/2025 10:00 AM EST Office Visit [facility] [address] [facility] [place] [address] Abel Johnson MD 3101 [facility] [address] [place] [address] 03/10/2025 10:00 AM EST Appointment PAV G Radiology [address] [place] [address] 03/10/2025 1:15 PM EST Clinical Support Pav CC Head, Neck & Respiratory 800 [facility], 2nd [place] [address] 03/10/2025 2:00 PM EST Appointment PAV CC Radiation 800 [facility]. [id number] [place] [address] Imer Sevilla MD [address] [address] 03/14/2025 3:40 PM EST Office Visit Pav CC Head, Neck & Respiratory 800 [facility], 2nd [place] [address] Viky Menon MD 800 [facility] Liz Hester [address] [address] Scheduled Procedures Name Priority Associated Diagnoses Date/Ti [...] documented as of this encounter Care Teams Coal Mill Operator Relationship Specialty Start Date End Date Carson Ibrahim MD [facility] [place] [address] PCP - General 11/20/23 Imer Sevilla MD [address] [address] Consulting Physician Radiation Oncology 02/27/24 Viky Menon MD 800 [facility] Kacie [address] [address] Consulting Physician Medical Oncology 04/21/24 Amelia Fremean, RN Registered Nurse Hematology and Oncology 05/13/24 documented as of this encounter
--- OUTSIDE RECORDS SUMMARY | 2024-12-16 09:12 | XMS_ITS | Clinical Summary ---
Author Organization [employer] ([place], [place], [place], [place]) Address [address] [place] [address] Care Team Providers Care Vehicle Fare Collector Name Role Phone Unavailable Primary Care Provider [...] Date Mckay rded Speak language other than Hungarian at home Not on file 11/07/2023 Want [...] (1 - Tdap) 1993 Lipid Panel 2009 Pneumococcal 50+ years (1 of 1 - PCV) 02/04/2024 Shingles Vaccine (Zoster) (1 of 2) 02/04/2024 COVID-19 VACCINE (2 - 2024- season) 11/22/202408/2020 Influenza Vaccine (#1) 2024
--- OUTSIDE RECORDS SUMMARY | 2024-12-16 09:12 | XMS_ITS | Encounter Summary ---
Author Organization Healthcare Address [address] [place] [id number] Care Team Providers Care Refractory Technician Name Role Phone Carson Ibrahim MD Primary Care Provider + [phone] Imer Sevilla MD Unavailable Viky Menon MD Unavailable [phone] Amelia Freeman RN Unavailable Unavailable Encounter Details Date Type Department Care Team (Late st Contact Info) Description 11/15/2024 Refill Pav CC Head, Neck & Respiratory [address] [place] [address] Viky Menon MD 800 [facility] [address] [place] [address] Cancer related pain (Primary Dx) Social History Tobacco Use Types [...] any time in the past 12 m [facility], were you homeless or living [...] drink first t idalia in the morning (EYE-FRONT END DRUPAL DEVELOPER) to steady your nerves or to get rid of a hangover? 0 07/22/2024 CAGE Questionnaire Score 0 025 Utilities Answer Date Recorded In the past 12 months has th e [employer], gas, oil, or water company threatened to shut off services in your home? No 07/28/2024 Sex and Gender Information Value Date Recorded Sex Assigned at Male 01/06/2024 6:14 AM EDT Legal Sex Male 7:47 PM EDT Gender Identity Male 01/06/2024 6:14 AM EDT Sexual Orientation Not on file documented as of this encounter Miscellaneous Notes * Telephone Encounter - Altagracia Hogan - 11/15/2024 10:18 AM EDT Per pt call to [facility], pt needs refill of prescription. Oxycodone - pt has 2 pills left Preferred pharmacy [place] [phone], okay to leave appt information, address concerns and answers to questions in VM at this # and maintain privacy documented in this encounter Plan of Treatment Upcoming Encounters Date Type Department Care Team (Late st Contact Info) Description 12/21/2024 10:15 AM EDT Office Visit [place] [facility] [address] [place] [address] Kelsey Cerda, DMD [address] [place] [address] 02/10/2025 10:00 AM EST Office Visit [facility] [address] [place] [address] Abel Johnson MD 3101 [facility] [address] [place] [address] 03/10/2025 10:00 AM EST Appointment PAV G Radiology [address] [place] [address] 03/10/2025 1:15 PM EST Clinical Support Pav CC Head, Neck & Respiratory 800 [facility], 2nd [place] [address] 03/10/2025 2:00 PM EST Appointment P[facility] CC Radiation [address] [facility]. [id number] [place] [address] Imer Sevilla MD 800 [facility] [address] [place] [address] 03/14/2025 3:40 PM EST Office Visit Pav CC Head, Neck & Respiratory 800 [facility], 2nd [place] [address] Viky Menon MD 800 [facility] [address] [place] [address] Scheduled Procedures Name Priority Associated Diagnoses Date/Ti me WEDGE RESECTION, TRANSVERSE, LIP, WITH PRIMARY CLOSURE Squamous cell carcinoma, lip DILATION, ESOPHAGUS Squamous cell carcinoma, lip documented as of this encounter Visit Diagnoses Diagnosis Cancer related pain- Primary documented in this encounter Additional Health [...] documented as of this encounter Care Teams Refractory Technician Relationship Specialty Start Date End Date Carson Ibrahim MD [address] [address] PCP - General 11/20/23 Imer Sevilla MD 800 [facility] [address] [place] [address] Consulting Physician Radiation Oncology 02/27/24 Viky Menon MD [address] [facility] [address] [place] [address] Consulting Physician Medical Oncology 04/21/24 Amelia Freeman, RN Registered Nurse Hematology and Oncology 05/13/24 documented as of this encounter
--- OUTSIDE RECORDS SUMMARY | 2024-12-16 09:12 | XMS_ITS | Encounter Summary ---
Author Organization [facility] Address [address] [place] [id number] Care Team Providers Care Surface Room Shop Optician Name Role Phone Carson Ibrahim MD Primary Care Provider + [phone] Imer Sevilla MD Unavailable Viky Menon MD Unavailable [phone] Amelia Freeman RN Unavailable Unavailable Reason for Referral * Consultation (Routine) - Authorized Specialty Diagnoses / Procedures Referred By Kameron santana Referred To Contact Pain Medicine Diagnoses Right flank pain Viky Menon MD 800 [facility] Liz Hester [address] [address] Phone: tel: fax: Referral ID Status Reason Start Date Expiration Date Visits Requested Visits Authorized [id number] Authorized Specialty Services Required 11/15/2024 05/17/2026 1 1 Encounter Details Date Type Department Care Team (Late st Contact Info) Description 11/15/2024 Orders Only Pav CC Head, Neck & Respiratory 800 [facility], 2nd [place] [address] Viky Menon MD 800 [facility] [address] [place] [address] Right flank pain (Primary Dx) Social History Tobacco Use [...] time in the past 12 m [facility], were you homeless or living in [...] drink first t idalia in the morning (EYE-CHECK OUT CASHIER) to steady your nerves or to get rid of a hangover? 0 07/22/2024 CAGE Questionnaire Score 0 025 Utilities Answer Date Recorded In the past 12 months has th e [employer], gas, oil, or water [employer] threatened to shut off services in your [...] Description 12/21/2024 10:15 AM EDT Office Visit [place] [facility] [address] [place] [address] Kelsey Cerda, DMD [address] [place] [address] 02/10/2025 10:00 AM EST Office Visit [facility] [address] [place] [address] Abel Johnson MD 3101 [facility] 100 [place] [address] 03/10/2025 10:00 AM EST Appointment PAV G Radiology [address] [place] [address] 03/10/2025 1:15 PM EST Clinical Support Pav CC Head, Neck & Respiratory 800 [facility], 2nd [place] [address] 03/10/2025 2:00 PM EST Appointment PAV CC Radiation 800 [facility]. [address] [place] [address] Imer Sevilla MD 800 [facility] [address] [place] [address] 03/14/2025 3:40 PM EST Office Visit Pav CC Head, Neck & Respiratory 800 [facility], 2nd [place] [address] Viky Menon MD 800 [facility] Liz [address] [place] [address] Scheduled Procedures Name Priority Associated Diagnoses Date/Ti me WEDGE RESECTION, TRANSVERSE, LIP, WITH PRIMARY CLOSURE Squamous cell carcinoma, lip DILATION, ESOPHAGUS Squamous cell carcinoma, lip Scheduled Referrals Name Type Priority Associated Diagnoses Order Schedule Ambulatory referral to Pain Medicine Outpatient Referral Routine Right flank pain Expected: 11/15/2024 (Approximate), Expires: 05/19/2026 documented as of this encounter Visit Diagnoses Diagnosis Right flank pain- Primary Abdominal pain, unspecified site documented in this encounter Additional Health Concerns [...] documented as of this encounter Care Teams Surface Room Shop Optician Relationship Specialty Start Date End Date Carson Ibrahim MD 1210 [facility] [address] [place] [address] PCP - General 11/20/23 Imer Sevilla MD 800 [facility] [address] [place] [address] Consulting Physician Radiation Oncology 02/27/24 Viky Menon MD 800 [facility] [address] [place] [address] Consulting Physician Medical Oncology 04/21/24 Amelia Freeman, RN Registered Nurse Hematology and Oncology 05/13/24 documented as of this encounter
--- OUTSIDE RECORDS SUMMARY | 2024-12-16 09:12 | XMS_ITS | Encounter Summary ---
Author Organization Healthcare Address [address] [id number] Care Team Providers Care Oven Baker Name Role Phone Carson Ibrahim MD Primary Care Provider + [phone] Imer Sevilla MD Unavailable Viky Menon MD Unavailable [phone] Amelia Freeman RN Unavailable Unavailable Encounter Details Date Type Department Care Team (Late st Contact Info) Description 11/17/2024 Telephone [facility] Radiation [id number] [place] [address] Criselda Snow MD [address] [place] [address] Social History Tobacco Use Types [...] time in the past 12 m [facility], were you homeless or living [...] drink first t idalia in the morning (EYE-BUTT MAKER) to steady your nerves or to [...] Visit [facility] [address] 2nd [place] [address] Kelsey Cerda, DMD [address] [facility] [address] [place] [address] 02/10/2025 10:00 AM EST Office Visit [facility] [address] [place] [address] Abel Johnson MD 3101 [facility] [address] [place] [address] 03/10/2025 10:00 AM EST Appointment PAV G Radiology [address] [place] [address] 03/10/2025 1:15 PM EST Clinical Support [facility] Respiratory [address] 2nd [place] [address] 03/10/2025 2:00 PM EST Appointment P[facility] CC Radiation 800 [facility] [id number] [place] [address] Imer Sevilla MD [address] [address] 03/14/2025 3:40 PM EST Office Visit [facility] Res[facility] 800 [facility], 2nd [place] [address] Viky Menon MD 800 [facility] Liz Hester [address] [address] Scheduled Procedures Name Priority Associated Diagnoses Date/Ti [...] documented as of this encounter Care Teams Oven Baker Relationship Specialty Start Date End Date Carson Ibrahim MD [address] [place] [address] PCP - General 11/20/23 Imer Sevilla MD [address] [address] Consulting Physician Radiation Oncology 02/27/24 Viky Menon MD 800 [facility] Liz Hester [facility] 134 [place] [address] Consulting Physician Medical Oncology 04/21/24 Amelia Freeman, RN Registered Nurse Hematology and Oncology 05/13/24 documented as of this encounter
--- OUTSIDE RECORDS SUMMARY | 2024-12-16 09:12 | XMS_ITS | Clinical Summary ---
Author Organization [facility] Address [address] [place] [address] Care Team Providers Care Operator And Truck Driver Name Role Phone Carson Ibrahim MD Primary Care Provider + [phone] Allergies Active Allergy Reactions Criticality Noted Date [...] 11/2022 Potentially Unsafe Housing Conditions Not on benny e 12/30/2022 Family and Community Support Answer [...] TEST 2019 FIT Testing (1 year) 2019 Pneumococcal Vaccine 50+ (1 of 1 - PCV) 02/04/2024 ZOSTER VACCINE (1 of 2) 02/04/2024 INFLUENZA VACCINE 10/22/2024 Medical Devices Implanted Type Area Administrator Health Care Facility Device Identifier Shelf Expiration Date Model / Serial / Lot Stent Percuflx No Gw 4.8x26 - [id number] Implanted:Qty: 1 on 03/12/2019 by Abrahan Dykes MD at [facility] Stent Left: [employer] 11/24/2021 [id number] 0 / / [id number] Insurance [id number] Care Teams Operator And Truck Driver Relationship Specialty Start Date End Date Carson Ibrahim MD [address] [facility] [address] [place] [address] PCP - General Family Medicine 03/12/19
--- OUTSIDE RECORDS SUMMARY | 2024-12-16 09:12 | XMS_ITS | Encounter Summary ---
Author Organization [facility] Address [address] [place] [address] Care Team Providers Care Voice Engineer Name Role Phone Carson Ibrahim MD Primary Care Provider + [phone] Imer Sevilla MD Unavailable Viky Menon MD Unavailable [phone] Amelia Freeman RN Unavailable Unavailable Encounter Details Date Type Department Care Team (Latest Contact Info) Description 11/18/2024 Travel Social History Tobacco Use Types Packs/Day [...] any time in the past 12 m [facility], were you homeless or living in [...] first t idalia in the morning (EYE-CLIENT LEADER) to steady your nerves or to [...] Description 12/21/2024 10:15 AM EDT Office Visit [facility] [address] [place] [address] Kelsey Cerda, DMD [address] [facility] [address] [place] [address] 02/10/2025 10:00 AM EST Office Visit [facility] [address]01 [facility] [place] [address] Abel Johnson MD [address] [facility] [address] [place] [address] 03/10/2025 10:00 AM EST Appointment PAV G Radiology [address] [place] [address] 03/10/2025 1:15 PM EST Clinical Support [facility] Head[facility] Neck [facility] Respiratory [address] 2nd [place] [address] 03/10/2025 2:00 PM EST Appointment P[facility] CC Radiation [id number] [place] [address] Imer Sevilla MD [address] [place] [address] 03/14/2025 3:40 PM EST Office Visit [facility]ck [facility] Respiratory [address] , 2nd [place] [address] Viky Menon MD [address] [facility] 134 [place] [address] Scheduled Procedures Name Priority Associated Diagnoses Date/Ti [...] documented as of this encounter Care Teams Voice Engineer Relationship Specialty Start Date End Date Carson Ibrahim MD [address] [place] [address] PCP - General 11/20/23 Imer Sevilla MD [address] [facility] [address] [place] [address] Consulting Physician Radiation Oncology 02/27/24 Viky Menon MD [address] [facility] 134 [place] [address] Consulting Physician Medical Oncology 04/21/24 Amelia Freeman, RN Registered Nurse Hematology and Oncology 05/13/24 documented as of this encounter
--- OUTSIDE RECORDS SUMMARY | 2024-12-16 09:13 | XMS_ITS | Encounter Summary ---
Author Organization Healthcare Address [address] [id number] Care Team Providers Care Supervisor Compressed Yeast Name Role Phone Carson Ibrahim MD Primary Care Provider + [phone] Imer Sevilla MD Unavailable Viky Menon MD Unavailable [phone] Amelia Freeman RN Unavailable Unavailable Encounter Details Date Type Department Care Team (Late st Contact Info) Description 12/13/2024 Telephone [facility] Radiation [id number] [place] [address] Criselda Snow MD [address] [place] [address] Social History Tobacco Use Types [...] any time in the past 12 m [facility], were you homeless or [...] first t idalia in the morning (EYE-BUSINESS PROCESS ARCHITECT) to steady your nerves or to get [...] Description 12/21/2024 10:15 AM EDT Office Visit [facility] [address]nd [place] [address] Kelsey Cerda, DMD [address] [facility] [address] [place] [address] 02/10/2025 10:00 AM EST Office Visit [facility] [address]01 [place] [address] Abel Johnson MD 3101 [facility] [address] [place] [address] 03/10/2025 10:00 AM EST Appointment PAV G Radiology [address] [place] [address] 03/10/2025 1:15 PM EST Clinical Support Pav [facility] Head[facility] Neck & Respiratory [address] , 2nd [place] [address] 03/10/2025 2:00 PM EST Appointment P[facility] CC Radiation 800 [facility]. [id number] [place] [address] Imer Sevilla MD [address] [address] 03/14/2025 3:40 PM EST Office Visit [facility] Head[facility] Neck [facility] Respiratory 800 [facility], 2nd [place] [address] Viky Menon MD 800 [facility] Liz Hester [address] [address] Scheduled Procedures Name Priority Associated Diagnoses Date/Ti [...] as of this encounter Care Teams Supervisor Compressed Yeast Relationship Specialty Start Date End Date Carson Ibrahim MD [address] [place] [address] PCP - General 11/20/23 Imer Sevilla MD [address] [address] Consulting Physician Radiation Oncology 02/27/24 Viky Menon MD 800 [facility] Liz Hester [facility] 134 [place] [address] Consulting Physician Medical Oncology 04/21/24 Amelia Freeman, RN Registered Nurse Hematology and Oncology 05/13/24 documented as of this encounter
--- OUTSIDE RECORDS SUMMARY | 2024-12-16 09:13 | XMS_ITS | Encounter Summary ---
Author Organization [facility] Address [address] [place] [address] Care Team Providers Care Director Of Career Services Name Role Phone Carson Ibrahim MD Primary Care Provider + [phone] Imer Sevilla MD Unavailable Viky Menon MD Unavailable [phone] Amelia Freeman RN Unavailable Unavailable Encounter Details Date Type Department Care Team (Latest Contact Info) Description 11/26/2024 Travel Social History Tobacco Use Types Packs/Day [...] time in the past [address] [facility], were you homeless or living [...] drink first t idalia in the morning (EYE-ROLL TENDER) to steady your nerves or to [...] Description 12/21/2024 10:15 AM EDT [facility] [address]nd [place] [address] Kelsey Cerda, DMD [address] [facility] [address] [place] [address] 02/10/2025 10:00 AM EST Office Visit [facility] [address]01 [facility] [address] Abel Johnson MD 3101 [facility] [address] [place] [address] 03/10/2025 10:00 AM EST Appointment PAV G Radiology [address] [place] [address] 03/10/2025 1:15 PM EST Clinical Support Pav [facility] Head[facility] Neck & Respiratory [address] 2nd [place] [address] 03/10/2025 2:00 PM EST Appointment P[facility] CC Radiation [address] [id number] [place] [address] Imer Sevilla MD [address] [place] [address] 03/14/2025 3:40 PM EST Office Visit [facility] Head[facility] Neck [facility] Respiratory [address] 2nd [place] [address] Viky Menon MD [address] [facility] 134 [place] [address] Scheduled Procedures Name Priority Associated Diagnoses Date/Ti [...] of this encounter Care Teams Director Of Career Services Relationship Specialty Start Date End Date Carson Ibrahim MD [address] [place] [address] PCP - General 11/20/23 Imer Sevilla MD [address] [facility] [address] [place] [address] Consulting Physician Radiation Oncology 02/27/24 Viky Menon MD [address] [facility] 134 [place] [address] Consulting Physician Medical Oncology 04/21/24 Amelia Freeman, RN Registered Nurse Hematology and Oncology 05/13/24 documented as of this encounter
--- OUTSIDE RECORDS SUMMARY | 2024-12-16 09:13 | XMS_ITS | Encounter Summary ---
Author Organization Healthcare Address [address] [place] [address] Care Team Providers Care Restaurant Area Manager Name Role Phone Carson Ibrahim MD Primary Care Provider + [phone] Imer Sevilla MD Unavailable Viky Menon MD Unavailable [phone] Amelia Freeman RN Unavailable Unavailable Reason for Visit * Reason Comments Resource Navigation Encounter Details Date Type Department Care Team (Late st Contact Info) Description 11/23/2024 Social Work Psych Oncology 800 [place] [address] Tamar Cruz Social History Tobacco Use Types [...] in a long-term (including now)? No 01/08/2024 PHQ-9 Answer Date [...] any time in the past 12 m [facility], were you homeless or living in [...] drink first t idalia in the morning (EYE-FARM SUPERVISOR) to steady your nerves or to [...] * Progress Notes - Tamar Cruz - 11/23/2024 1:41 PM EDT Encounter Type: Phone Call Disease Status: Established Patient Clinic Location: [facility] Disease Type: Head & Neck Services Provided: Transportation Assistance Community Referrals: Medicaid Transportation Program Intervention Level: 3 Units (1 unit = 15 minutes): 2 Narrative: MEDICAL DEVICE SALES CONSULTANT contacted pt regarding transportation for upcoming November appts. Pt confirmed upcoming datesfor November appts and need for transport. MEDICAL DEVICE SALES CONSULTANT was able to scheduled transportation for 12/07 (915AM pickling machine operator/confirmation [phone]), 12/13 (545AM pickling machine operator/confirmation [id number]), and 12/21 (815AM pickling machine operator/confirmation [id number]). MEDICAL DEVICE SALES CONSULTANT provided pt with pickling machine operator times and transportation confirmation. Pt was appreciative for the assistance and denied additional questions or needs at this time. MEDICAL DEVICE SALES CONSULTANT remains available ongoing prn. Tamar LAWS, MEDICAL DEVICE SALES CONSULTANT [phone] * Progress Notes - Tamar Cruz - 11/23/2024 1:41 PM EDT Encounter Type: Phone Call Disease Status: Established Patient Clinic Location: [facility] Disease Type: Head & Neck Services Provided: Transportation Assistance Community Referrals: Medicaid Transportation Program Intervention Level: 3 Units (1 unit = 15 minutes): 2 Narrative: MEDICAL DEVICE SALES CONSULTANT received additional call from pt requesting transportation assistance for additional appt on 11/26. MEDICAL DEVICE SALES CONSULTANT [facility] 11/26 (845AM pickling machine operator/confirmation [id number]). MEDICAL DEVICE SALES CONSULTANT relayed confirmation to pt who was appreciative for the assistance. There were no additional needs at this time. MEDICAL DEVICE SALES CONSULTANT remains available ongoing prn. Tamar Cruz ETHYLBENZENE CONVERTER HELPER, MEDICAL DEVICE SALES CONSULTANT [phone] documented in this encounter Plan of Treatment Upcoming Encounters Date Type Department Care Team (Late st Contact Info) Description 12/21/2024 10:15 AM EDT Office Visit [facility] Adult Dentistry [address] [place] [address] Kelsey Cerda, DMD [address] [place] [address] 02/10/2025 10:00 AM EST Office Visit [facility] [address]01 [facility] [place] [address] Abel Johnson MD [address] [facility] [address] [place] [address] 03/10/2025 10:00 AM EST Appointment PAV G Radiology [address] [place] [address] 03/10/2025 1:15 PM EST Clinical Support [facility] Head[facility] Neck & Respiratory [address] 2nd [place] [address] 03/10/2025 2:00 PM EST Appointment PAV CC Radiation [address] [id number] [place] [address] Imer Sevilla MD [address] [place] [address] 03/14/2025 3:40 PM EST Office Visit [facility] Head[facility] Neck & Respiratory [address], 2nd [place] [address] Viky Menon MD [address] [facility] 134 [place] [address] Scheduled Procedures Name Priority Associated Diagnoses Date/Ti [...] documented as of this encounter Care Teams Restaurant Area Manager Relationship Specialty Start Date End Date Carson Ibrahim MD [address] [place] [address] PCP - General 11/20/23 Imer Sevilla MD [address] [facility] [address] [place] [address] Consulting Physician Radiation Oncology 02/27/24 Viky Menon MD [address] [facility] 134 [place] [address] Consulting Physician Medical Oncology 04/21/24 Amelia Freeman, RN Registered Nurse Hematology and Oncology 05/13/24 documented as of this encounter
--- OUTSIDE RECORDS SUMMARY | 2024-12-16 09:13 | XMS_ITS | Encounter Summary ---
Author Organization Healthcare Address [address] [id number] Care Team Providers Care Executive Communications Manager Name Role Phone Carson Ibrahim MD Primary Care Provider + [phone] Imer Sevilla MD Unavailable Viky Menon MD Unavailable [phone] Amelia Freeman RN Unavailable Unavailable Encounter Details Date Type Department Care Team (Late st Contact Info) Description 11/19/2024 Orders Only Pav [facility] Head, Neck & Respiratory [address] 2nd [place] [address] Viky Menon MD 800 [facility] [address] [place] [address] Social History Tobacco Use Types [...] any time in the past 12 m [facility], were you homeless or living in a [...] drink first t idalia in the morning (EYE-SPRAYER HAND) to steady your nerves or to get [...] Description 12/21/2024 10:15 AM EDT Office Visit [facility] Adult [facility] [address] [place] [address] Kelsey Cerda, DMD [address] [place] [address] 02/10/2025 10:00 AM EST Office Visit [facility] [address]01 [place] [address] Abel Johnson MD 3101 [facility] [address] [place] [address] 03/10/2025 10:00 AM EST Appointment PAV G Radiology [address] [place] [address] 03/10/2025 1:15 PM EST Clinical Support Pav CC Head, Neck & Respiratory 800 [facility], 2nd [place] [address] 03/10/2025 2:00 PM EST Appointment PAV CC Radiation 800 [facility] [id number] [place] [address] Imer Sevilla MD [address] [address] 03/14/2025 3:40 PM EST Office Visit [facility] Head[facility] Neck & Respiratory 800 [facility], 2nd [place] [address] Viky Menon MD [address] [facility] [address] [address] Scheduled Procedures Name Priority Associated Diagnoses Date/Ti [...] documented as of this encounter Care Teams Executive Communications Manager Relationship Specialty Start Date End Date Carson Ibrahim MD [address] [place] [address] PCP - General 11/20/23 Imer Seivlla MD [address] [address] Consulting Physician Radiation Oncology 02/27/24 Viky Menon MD [address] [facility] [address] [address] Consulting Physician Medical Oncology 04/21/24 Amelia Freeman, RN Registered Nurse Hematology and Oncology 05/13/24 documented as of this encounter
--- OUTSIDE RECORDS SUMMARY | 2024-12-16 09:13 | XMS_ITS | Encounter Summary ---
Author Organization Healthcare Address [address] [place] [id number] Care Team Providers Care Material Control Associate Name Role Phone Carson Ibrahim MD Primary Care Provider + [phone] Imer Sevilla MD Unavailable Viky Menon MD Unavailable [phone] Amelia Freeman RN Unavailable Unavailable Reason for Visit * Reason Comments Med Refill Encounter Details Date Type Department Care Team ([facility] st Contact Info) Description 12/15/2024 Refill Pav [facility] Head, Neck & Respiratory [address] 2nd [place] [address] Viky Menon MD 800 [facility] 134 [place] [address] Social History Tobacco Use Types [...] a care home (including now)? No 01/08/2024 PHQ-9 Answer [...] drink first t idalia in the morning (EYE-OPERATING TABLE ASSEMBLER) to steady your nerves or to get rid of a hangover? 0 07/22/2024 CAGE Questionnaire Score 0 025 Utilities Answer Date Recorded In the past 12 months has th e [employer], gas, oil, or water company threatened to [...] Visit [facility] [address] [place] [address] Kelsey Cerda, DMD [address] [place] [address] 02/10/2025 10:00 AM EST Office Visit [facility] [address]01 [facility] [place] [address] Abel Johnson MD [address] [facility] [address] [place] [address] 03/10/2025 10:00 AM EST Appointment PAV G Radiology [address] [place] [address] 03/10/2025 1:15 PM EST Clinical Support Pav CC Head, Neck & Respiratory 800 [facility], 2nd [place] [address] 03/10/2025 2:00 PM EST Appointment PAV CC Radiation 800 [facility]. [id number] [place] [address] Imer Sevilla MD [address] [address] 03/14/2025 3:40 PM EST Office Visit [facility] Head[facility] Neck & Respiratory 800 [facility], 2nd [place] [address] Viky Menon MD 800 [facility] Liz Hester [address] [address] Scheduled Procedures Name Priority Associated Diagnoses Date/Ti [...] documented as of this encounter Care Teams Material Control Associate Relationship Specialty Start Date End Date Carson Ibrahim MD [address] [place] [address] PCP - General 11/20/23 Imer Sevilla MD [address] [address] Consulting Physician Radiation Oncology 02/27/24 Viky Menon MD 800 [facility] K[address] [address] Consulting Physician Medical Oncology 04/21/24 Amelia Freeman, RN Registered Nurse Hematology and Oncology 05/13/24 documented as of this encounter
--- OUTSIDE RECORDS SUMMARY | 2024-12-16 09:13 | XMS_ITS | Encounter Summary ---
Author Organization [facility] Address [address] [place] [address] Care Team Providers Care Schedule Manager Name Role Phone Carson Ibrahim MD Primary Care Provider + [phone] Imer Sevilla MD Unavailable Viky Menon MD Unavailable [phone] Amelia Freeman RN Unavailable Unavailable Encounter Details Date Type Department Care Team (Latest Contact Info) Description 12/13/2024 Travel Social History Tobacco Use Types Packs/Day [...] time in the past 12 m [facility], were you homeless or living [...] drink first t idalia in the morning (EYE-CHEMICAL ETCHING PROCESSOR) to steady your nerves or to get rid of a hangover? 0 07/22/2024 CAGE Questionnaire Score 0 025 Utilities Answer Date Recorded In the past 12 months has [employer], gas, oil, or water [employer] threatened to shut off services in your [...] at all 12/13/2024 12:35 PM EDT Ezekiel Elaina roblero A * How difficult have these problems made it for you to do your work, take care of things at home, or get along with other people? Answer Date of Assessment Author Not difficult at all 12/13/2024 12:35 PM EDT Ezekiel Elaina roblero A * Question Answer Date of Assessment Author 1. Wish to be (Past 1 Month) No 025 12:35 PM EDT Elaina Frye 2. Non-Specific Active Suici luis m Thoughts (Past 1 Month) No 12/13/2024 12:35 PM EDT Alexey Frye 6. Suicidal Behavior (Lifetime) No 12:35 PM EDT Elaina Frye documented as of this encounter Plan of Treatment Upcoming Encounters Date Type Department Care Team (Late st Contact Info) Description 12/21/2024 10:15 AM EDT Office Visit [facility] [address] [place] [address] Kelsey Cerda, DMD [address] [place] [address] 02/10/2025 10:00 AM EST Office Visit [facility] [address]01 [facility] [place] [address] Abel Johnson MD 3101 [facility] [address] [place] [address] 03/10/2025 10:00 AM EST Appointment PAV G Radiology [address] [place] [address] 03/10/2025 1:15 PM EST Clinical Support [facility] Head[facility] Neck & Respiratory [address] 2nd [place] [address] 03/10/2025 2:00 PM EST Appointment PAV CC Radiation 800 [facility] [id number] [place] [address] Imer Sevilla MD [address] [address] 03/14/2025 3:40 PM EST Office Visit [facility] Head[facility] Neck [facility] Respiratory 800 [facility], 2nd [place] [address] Viky Menon MD 800 [facility] Liz Kacie [address] [address] Scheduled Procedures Name Priority Associated Diagnoses [...] documented as of this encounter Care Teams Schedule Manager Relationship Specialty Start Date End Date Carson Ibrahim MD [address] [place] [address] PCP - General 11/20/23 Imer Sevilla MD [address] [phone] Consulting Physician Radiation Oncology 02/27/24 Viky Menon MD [address] [place] [address] Liz Kacie [facility] 134 [place] [address] Consulting Physician Medical Oncology 04/21/24 Amelia Freeman, RN Registered Nurse Hematology and Oncology 05/13/24 documented as of this encounter
--- OUTSIDE RECORDS SUMMARY | 2024-12-16 09:13 | XMS_ITS | Encounter Summary ---
Author Organization Healthcare Address [address] [place] [address] Care Team Providers Care Dude Ranch Manager Name Role Phone Carson Ibrahim MD Primary Care Provider + [phone] Imer Sevilla MD Unavailable Viky Menon MD Unavailable [phone] Amelia Freeman RN Unavailable Unavailable Reason for Visit * Reason Comments Social Work/navigation Follow-up Encounter Details Date Type Department Care Team (Late st Contact Info) Description 12/14/2024 Social Work Psych Oncology [address] [place] [address] Tamar Cruz Social History Tobacco Use Types [...] any time in the past 12 m [facility], were you homeless or living [...] drink first t idalia in the morning (EYE-GLOBAL ACCOUNT DIRECTOR) to steady your nerves or to [...] * Progress Notes - Tamar Cruz - 12/14/2024 1:25 PM EDT Encounter Type: Phone Call Disease Status: Established Patient Clinic Location: [facility] Disease Type: Head & Neck Intervention Level: 1 Units (1 unit = 15 minutes): 1 Narrative: PLASTERER ROUGH attempted to follow up missed call from pt. Pt was unavailable at this time. PLASTERER ROUGH left a brief non urgent message stating name, nature of the call, and contact information for follow up if needed.PLASTERER ROUGH remains available ongoing prn. Tamar Cruz CUSTOMS AND BORDER PROTECTION OFFICER, PLASTERER ROUGH [phone] * Progress Notes - Tamar Cruz - 12/14/2024 1:25 PM EDT Encounter Type: Phone Call Disease Status: Established Patient Clinic Location: [facility] Disease Type: Head & Neck Education Provided: Financial Support/Aid Intervention Level: 2 Units (1 unit = 15 minutes): 2 Narrative: PLASTERER ROUGH received follow up call from pt inquiring of lianet holman referral. PLASTERER ROUGH informed pt that bills had been submitted and Lianet Holman rep was out of office this week and would process this request as soon as she was back. Pt expressed understanding. Pt disclosed that his visits yesterday went welland no cancer was found on his scans. PLASTERER ROUGH expressed gladness and celebrated in this with pt. Pt washappy with these results and discussed next steps for his care. Pt denied current needs at this time and was appreciative for ongoing support. PLASTERER ROUGH encouraged pt to follow up should additional needs arise. PLASTERER ROUGH remains available ongoing prn. Tamar Cruz CUSTOMS AND BORDER PROTECTION OFFICER, PLASTERER ROUGH [phone] documented in this encounter Plan of Treatment Upcoming Encounters Date Type Department Care Team (Late st Contact Info) Description 12/21/2024 10:15 AM EDT Office Visit [facility] [address] [place] [address] Kelsey Cerda, DMD [address] [facility] [address] [place] [address] 02/10/2025 10:00 AM EST Office Visit [facility] [address] [facility] [place] [address] Abel Johnson MD [address] [facility] [address] [place] [address] 03/10/2025 10:00 AM EST Appointment [facility] [address] [place] [phone] 03/10/2025 1:15 PM EST Clinical Support [facility] [address] [place] [id number] 03/10/2025 2:00 PM EST Appointment [facility] [id number] [place] [phone] Imer Sevilla MD [address] [place] [address] 03/14/2025 3:40 PM EST Office Visit [facility] [address] [place] [phone] Viky Menon MD [address] [facility] [address] [place] [address] Scheduled Procedures Name Priority Associated Diagnoses Date/Ti [...] documented as of this encounter Care Teams Dude Ranch Manager Relationship Specialty Start Date End Date Carson Ibrahim MD [address] [place] [id number] PCP - General 11/20/23 Imer Sevilla MD [address] [facility] [address] [place] [address] Consulting Physician Radiation Oncology 02/27/24 Viky Menon MD [address] [facility] [address] [place] [address] Consulting Physician Medical Oncology 04/21/24 Amelia Freeman, RN Registered Nurse Hematology and Oncology 05/13/24 documented as of this encounter
--- OUTSIDE RECORDS SUMMARY | 2024-12-16 09:13 | XMS_ITS | Clinical Summary ---
Author Organization [facility] Address [address] [place] [place] [address] Care Team Providers Care Web Graphic Designer Name Role Phone Carson Ibrahim MD Primary Care Provider [phone] Imer Sevilla MD Unavailable Viky Menon MD Unavailable [phone] Amelia Freeman RN Unavailable Unavailable Allergies Active Allergy Reactions Criticality Noted Date Comments Penicillins Rash,Swelling High 03/12/2019 A CHILD Medications traZODone (Desyrel) 100 MG tablet Take 1 tablet by mouth nightly. Active acetaminophen (Tylenol) 500 MG tablet Take 2 tablets by mouth every 6 hours as needed for pain. Active carvedilol (Coreg) 6.25 MG tablet every 12 hours. Active lidocaine (Lidoderm) 5 % patch APPLY ONE PATCH TOPICALLY TO CLEAN, DRY SKIN. LEAVE ON FOR 12 HOURS THEN REMOVE. MUST WAIT AT LEAST 12 HOURS BEFORE APPLYING PATCH(ES) AGAIN. 025 Active nitrofurantoin, macrocrystal-mono hydrate, (Macrobid) 100 MG capsule 025 Active oxyCODONE (Roxicodone) 10 MG immediate release tabletIndications :Cancer related pain Take 1 tablet by mouth every 6 hours as needed for severe pain (g89.3). Do not take while driving and or working - only take in evening and at bedtime. 120 tablet 025 Active polyethylene glycol (Miralax) 17 GM/SCOOP powder MIX 17 GRAMS OF POWDER IN 8 OUNCES OF LIQUID AND DRINK ONCE DAILY 510 g 025 Active ondansetron ODT (Zofran-ODT) 8 MG disintegrating tablet Take 1 tablet (8 mg) by mouth every 8 hours as needed for nausea or vomiting. 30 tablet 3 2024 Discontinued cyclobenzaprine (Flexeril) 5 MG tablet Take 1 tablet by mouth 3 times a day as needed for muscle spasms. 2024 Discontinued methocarbamol (Robaxin) 500 MG tablet TAKE 2 TABLETS BY MOUTH EVERY 8 HOURS NEEDED FOR MUSCLE PAIN AND SPASM 2024 Discontinued famotidine (Pepcid) 20 MG tablet Take 1 tablet by mouth at night as needed for heartburn. 2024 Discontinued Multiple Vitamin (multivitamin) tablet Take 1 tablet by mouth daily. 2024 Discontinued metoprolol succinate XL (Toprol-XL) 25 MG 24 hr tablet Take 1 tablet by mouth daily. Do not crush or chew. 90 tablet 3 2024 Discontinued diclofenac (Voltaren) 1 % topical gel Place on the skin 2 times a day. Apply as directed to the chest at the area of pain 50 g 2 2024 Discontinued metroNIDAZOLE (Flagyl) 500 MG tablet 2024 Discontinued sodium chloride 0.9 % solution 2024 Discontinued vancomycin (Vancocin) 10 g reconstituted solution 2024 Discontinued polyethylene glycol (Miralax) 17 GM/SCOOP powder Take 17 g by mouth daily as needed (constipation) . 510 g 3 2024 Discontinued fentaNYL (Duragesic) 50 MCG/HR Place 1 patch on the skin every 3rd day over 72 hours. 10 patch 2024 Additional Information Patient not taking.Reported on 11/18/2024 gabapentin (Neurontin) 600 MG tablet Take 1 tablet by mouth 3 times a day. 90 tablet 2 2024 Discontinued oxyCODONE (Roxicodone) 10 MG immediate release tabletIndications :Cancer related pain Take 1 tablet by mouth every 4 hours as needed for severe pain (g89.3). 180 tablet 2024 Discontinued(R eorder) amantadine (Symmetrel) 100 MG tablet 025 2024 Discontinued Active Problems Problem Noted Date Diagnosed Date Arthropathy of lumbar facet joint 10/20/2024 Arthropathy, unspecified 09/15/2024 Other rheumatic multiple valve diseases 08/26/19 Chronic systolic (congestive) heart failure 07/23 Pyogenic arthritis, unspecified 08/12/2024 Localized enlarged lymph nodes 08/10/2024 Abnormal cytological finding s in specimens from other organs, systems and tissues 07/26/2024 Arthritis due to other bacteria, left shoulder 0 07/26/2024 Cardiac arrhythmia, unspecified 07/26/2024 Nonrheumatic mitral (valve) insufficiency 2024 Bacteremia 07/22/2024 Enterocolitis due to Clostri dium difficile, not specified as recurrent 07/22/2024 Unspecified open wound, right lower leg, initial encounter 07/22/2024 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 07/21/2024 Other nonspecific abnormal finding of lung field 07/21/2024 Anemia 07/19/2024 Weakness 07/19/2024 Sensorineural hearing loss, bilateral 07/14/2024 Tinnitus, left ear 07/14/2024 Lumbar foraminal stenosis 07/02/2024 Atelectasis 06/30/2024 Calculus of kidney 06/29/2024 Gastrostomy malfunction 06/29/2024 Unspecified staphylococcus a s the cause of diseases classified elsewhere 06/29/2024 Torticollis 06/17/2024 Disturbances of salivary secretion 06/10/2024 Other foreign object in resp iratory tract, part unspecified in causing asphyxiation, initial encounter 06/10/2024 Dysuria 05/25/2024 Heartburn 05/25/2024 Pyuria 05/25/2024 Oral mucositis (ulcerative), unspecified 025 Insomnia, unspecified 04/15/2024 Malignant neoplasm of external lower lip 024 Secondary malignant neoplasm lymph nodes of head, 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 Skin graft (allograft) (autograft) failure 02/17 Severe obesity (BMI 35.0-39.9) with comorbidity 02/17/2024 Severe protein-calorie malnutrition 02/17/2024 Atherosclerosis of other arteries 02/16/2024 Effusion, right ankle 02/16/2024 Hypokalemia 02/16/2024 Leukocytes in urine 02/15/2024 Acute kidney injury 02/11/2024 Nephrotic syndrome 02/11/2024 Spontaneous ecchymoses 02/11/2024 Dysphagia, oropharyngeal 02/02/2024 Hyperlipidemia 02/02/2024 Right flank pain 02/02/2024 Cancer related pain 02/02/2024 Adverse effect [...] from OR TF ongoing per dietary recs FLOOR SANDER consulted GERD (gastroesophageal reflux disease) Overview (01/07/2024): [...] Viky Menon MD on 02/02/2024 Atherosclerosis of jamul ar teries of extremities with intermittent claudication, bilateral legs 12/18/2023 Localized swelling, mass and lump, neck 12/10/19 Abnormal findings on diagnos tic imaging of skull and head, not elsewhere classified 11/07/2023 Resolved Problems Problem Noted Date Diagnosed Date Resolved Date Osteomyelitis, unspecified 08/12/2024 0 12/13/2024 Acute osteomyelitis of left clavicle 07/22/2024 12/13/2024 CINV (chemotherapy-induced n ausea and vomiting) 02/18/2024 12/12/2024 Wound infection after surgery 02/17/2024 02/23/2024 Dermatitis, unspecified 02/11/202411/23 Vomiting 02/02/2024 12/12/2024 Morbid obesity 01/07/2024 01/07/2024 UTI (urinary tract infection) 01/07/2024 01/07/2024 Type 2 diabetes mellitus 01/07/2024 High blood pressure 01/01/2024 01/07/20 24 Encounters Date Type Department Care Team Description 12/15/2024 Refill [facility] [address] [facility], 2nd [place] [address] Viky Menon MD 12/14/2024 Social Work Psych Oncology [address] [place] [address] Tamar Cruz 12/13/2024 3:40 PM EDT Office Visit [facility] [address] [facility], 2nd [place] [address] Viky Menon MD Squamous cell carcinoma, lip (Primary Dx); Cancer related pain; Dysphagia, oropharyngeal 12/13/2024 2:45 PM EDT Office Visit [facility] [address] [phone] Matias Eldridge MD Stiffness of neck (Primary Dx); Feeding difficulties 12/13/2024 2:30 PM EDT Clinical Support [facility] [address] [phone] Malignant neoplasm of external lower lip; Squamous cell carcinoma, lip; Squamous cell carcinoma of neck; Secondary malignant neoplasm lymph nodes of head, face and neck (CMS/HCC) 12/13/2024 12:25 PM EDT Hospital Encounter [facility] Radiation [address] [place] [phone] Criselda Snow MD Secondary malignant neoplasm lymph nodes of head, face and neck (CMS/HCC) (Primary Dx) 12/13/2024 9:00 AM EDT Office Visit [facility] Adult Dentistry [address] [phone] Kelsey Cerda DMD Edentulism (Primary Dx) 12/13/2024 7:19 AM EDT - 12/13/2024 12:24 PM EDT Hospital Encounter [facility] Radiology [address] [place] [phone] Secondary malignant neoplasm lymph nodes of head, face and neck (CMS/HCC) Discharge Disposition: Home or Self Care 12/13/2024 Telephone [facility]iation [address] [place] [phone] Criselda Snow MD 12/13/2024 Travel 12/10/2024 Social Work Psych Oncology [address] [place] [address] Tamar Cruz 12/07/2024 11:15 AM EDT Office Visit [facility] [address] [phone] [place], Kelsey B, DMD Edentulism (Primary Dx) 12/07/2024 Travel 12/07/2024 Social Work Psych Oncology [address] [place] [phone] Tamar Cruz L 11/26/2024 10:45 AM EDT Office Visit [facility] [address] [place] [phone] Kelsey Cerda, DMD Edentulism (Primary Dx) 11/26/2024 Travel 11/23/2024 Social Work Psych Oncology [address] [place] [phone] CruzAlonTamar L 11/19/2024 Orders Only [facility] Res[facility] [address] [phone] Viky Menon MD 11/18/2024 10:00 AM EDT Office Visit [address] [phone] Emil Johnson MD Osteomyelitis of thoracic spine (CMS/HCC) (Primary Dx); MRSA bacteremia; Lumbar back pain; Squamous cell carcinoma, lip; Acute osteomyelitis of left clavicle (CMS/HCC) 11/18/2024 Travel 11/17/2024 Telephone [facility] [address] [facility]. [id number] [place] [address] Criselda Snow MD 11/15/2024 Orders Only [facility] [address] [phone] Viky Menon MD Right flank pain (Primary Dx) 11/15/2024 Refill [facility] [address] [phone] Viky Menon MD Cancer related pain (Primary Dx) 11/15/2024 Results Follow-Up [facility] [address] [place] [phone] Emil Johnson, MD 11/09/2024 12:51 PM EDT - 11/09/2024 11:59 PM EDT Hospital Encounter [facility] Interventional Radiology [address] [place] [address] Charmaine Reyes Osteomyelitis of thoracic spine ([facility]/HCC); MRSA bacteremia Discharge Disposition: Home or Self Care 11/09/2024 11:15 AM EDT Office Visit [facility] Adult [facility] [address] [place] [address] Kelsey Cerda, DMD Edentulism (Primary Dx) 11/09/2024 Travel 11/05/2024 8:00 AM EDT Office Visit [facility] Vascular Interventional Radiology 0 [facility] Room [address] [place] [phone] Tessa Rockwell, EYELET MAKER Arthritis due to other bacteria, left shoulder ([facility]/HCC) (Primary Dx) 11/05/2024 Social Work Psych Oncology [address] [place] [address] Tamar Cruz 11/05/2024 Travel 11/03/2024 Orders Only [facility] Interventional Radiology [address] [facility] Room [address] [place] [phone] Yvette Escobar, RN Encounter for other preprocedural examination (Primary Dx) 11/01/2024 8:35 AM EDT - 11/01/2024 11:59 PM EDT Hospital Encounter [facility] [address] [place] [address] Osteomyelitis of thoracic spine ([facility]/HCC); MRSA bacteremia; Lumbar back pain Discharge Disposition: Home or Self Care 11/01/2024 Travel 10/28/2024 Social Work Psych Oncology [address] [place] [address] Julieta Price 10/28/2024 Social Work Psych Oncology [address] [place] [phone] Julieta Price 10/27/2024 Social Work Psych Oncology [address] [place] [address] Julieta Price 10/22/2024 10:15 AM EDT Office Visit [facility] Adult [facility] [address] [place] [address] Kelsey Cerda, DMD Edentulism (Primary Dx) 10/22/2024 Telephone [facility] [address] [place] [phone] Nabil Gaitan, PharmD Prior-authorization/ insurance Verification 10/22/2024 Travel 10/22/2024 Telephone [facility] [address] [phone] Viky Menon MD 10/22/2024 Orders Only [facility] [address] [phone] Viky Menon MD 10/21/2024 8:30 AM EDT Office Visit [address] [phone] Emil Johnson MD Osteomyelitis of thoracic spine (CMS/HCC) (Primary Dx); MRSA bacteremia; Lumbar back pain 10/21/2024 Telephone [facility] [address] [phone] Viky Menon MD 10/21/[address] [phone] Emil Johnson MD 10/21/[address] [address] Emil Johnson MD 10/21/2024 Travel 10/19/2024 Social Work Psych Oncology [address] [place] [phone] Julieta Price 10/18/2024 2:45 PM EDT Office Visit [facility] [address] [phone] Matias Eldridge MD Osteomyelitis of spine (CMS/HCC) (Primary Dx); Squamous cell carcinoma, lip; Malignant neoplasm of external lower lip; Dysphagia, oropharyngeal 10/18/2024 Telephone [facility] [address] [place] [phone] Emil Johnson MD 10/18/2024 Travel 10/12/2024 Telephone [facility] [address] [place] [address]. [id number] [place] [address] Edith Prater, RN CT SCAN 10/12/2024 Social Work Psych Oncology [address] [place] [phone] Tamar Cruz 10/11/2024 11:04 AM EDT - 10/11/2024 11:59 PM EDT Hospital Encounter [facility] [address] [place] [address] Squamous cell carcinoma, lip; Malignant neoplasm of external lower lip; Acute osteomyelitis of left clavicle (CMS/HCC); Squamous cell carcinoma of neck; Secondary malignant neoplasm lymph nodes of head, face and neck (CMS/HCC) Discharge Disposition: Home or Self Care 10/11/2024 Travel 10/08/2024 Telephone [facility] [address] [place] [phone] Matias Eldridge MD 10/06/2024 11:45 AM EDT Office Visit [facility] [address] [phone] Matias Eldridge MD Acute osteomyelitis of left clavicle (CMS/HCC) (Primary Dx); Squamous cell carcinoma, lip; Malignant neoplasm of external lower lip; Dysphagia, oropharyngeal; Squamous cell carcinoma of neck; Secondary malignant neoplasm lymph nodes of head, face and neck (CMS/HCC) 10/06/2024 Travel 10/04/2024 Social Work Psych Oncology [address] [place] [phone] Tamar Cruz 09/30/2024 Refill [facility] [address] [facility] 2[address] Floor [place] [phone] Viky Menon MD 09/23/2024 1:45 PM EDT Evaluation [facility] [address] [place] [address] Kelsey Cerda, DMD Edentulism (Primary Dx) 09/23/2024 Travel 09/20/2024 Social Work Psych Oncology [address] [place] [address] Tamar Cruz from Last 3 Months Immunizations Immunization Administration [...] first t idalia in the morning (EYE-MANAGER OF QUALITY) to steady your nerves or to get [...] Mass Index 28.09 12/13/2024 1:22 PM EDT Plan of Treatment Upcoming Encounters Date Type Department Care Team (Late st Contact Info) Description 12/21/2024 10:15 AM EDT [facility] Visit [facility] [address] [place] [phone] Kelsey Cerda, DMD [address] [place] [address] 02/10/2025 10:00 AM EST Office Visit [facility] [address] [facility] [place] [address] Brittney Johnson MD [address] [facility] [address] [place] [address] 03/10/2025 10:00 AM EST Appointment [facility] [address] [place] [phone] 03/10/2025 1:15 PM EST Clinical Support [facility] Res[facility] [address] [facility], 2nd [place] [address] 03/10/2025 2:00 PM EST Appointment [facility] Radiation [id number] [place] [phone] Imer Sevilla MD [address] [facility] [address] [place] [address] 03/14/2025 3:40 PM EST Office Visit [facility] Res[facility] [address] [facility]nd [place] [address] Viky Menon MD [address] [facility] [address] [place] [address] Scheduled Procedures Name Priority Associated Diagnoses Date/Ti me WEDGE RESECTION, TRANSVERSE, LIP, WITH PRIMARY CLOSURE Squamous cell carcinoma, lip DILATION, ESOPHAGUS Squamous cell carcinoma, lip Health Maintenance Due Date Last Done Comments Dental Prophylaxis 1974 Dental X-Ray: Bitewings 1974 Dental X-Ray: Full Mouth 1974 [facility]-/Child/Adol SDOH Screenings 1974 Diabetes: Dental Exam 02/04/1984 [facility]-DTaP,Tdap,and Td Vaccines (1 - Tdap) 1993 [facility]-Hepatitis B Vaccines (1 of 3 - 19+ 3-dose series) 1993 [facility]-Pneumococcal Vaccine: 50+ Years (1 of 2 - PCV) 1993 [facility]-Zoster Vaccines (1 of 2) 1993 CT Colonography 2019 Colonoscopy 2019 FIT-DNA 2019 FIT 2019 FOBT 2019 Sigmoidoscopy 2019 [facility]-Colorectal Cancer Screening 2019 [id number]-10 Vaccine (2 - Gurpreet risk series) 07/25/2020 06/27/2020 [facility]-Influenza Vaccine (#1) 2024 01/11/2020 [facility]-Diabetes: Hemoglobin A1C 01/19/2025 07/22/2024, 01/07/2024 [facility]- SDOH Screenings 01/28/2025 [facility]-Adult SDOH Screenings 01/28/2025 07/28/2024 Dental Oral Exam 03/27/2025 09/23/2024 [facility]-Depression Screening 12/13/2025 12/13/2024, 11/23 [facility]-HIV Screening Completed 01/16/2024 [facility]-Hepatitis C Screening Completed 01/16/2024 [facility]-Obesity Intervention Completed 025, 12/07/2024, 11/26/2024, Additional history exists HPV Vaccines Aged Out [...] this topic Medical Devices Implanted Type Area Lens Polisher Device Identifier Shelf Expiration Date Model / Serial / Lot Model Anatomical Mandible White - [id number] Implanted:Qty: 1 on 01/06/2024 by Jyothi Vega MD at [facility]01/05/2025 [id number] / / Plate Ti Pspc Matrixmand Ang Recon 7x23h/2mm Lt - [id number] Implanted:Qty: 1 on 01/06/2024 by Jyothi Vega MD at [facility]-01/05/2025 [id number] / / Screw 2.0mm Matrixmandible St 8mm - [id number] Implanted:Qty: 3 on 01/06/2024 by Jyothi Vega MD at [facility] C4 Imaging [facility]-01/05/2025 [id number] .01 / / Screw 2.0mm Matrixmand[address] 6mm - [id number] Implanted:Qty: 2 on 01/06/2024 by Jyothi Vega MD at [facility] [place]-[id number] 01/05/2025 [id number] .01 / / Screw 2.4mm Matrixmandible St 8mm - [id number] Implanted:Qty: 2 on 01/06/2024 by Jyothi Vega MD at [facility]-[id number] 01/05/2025 [id number] .01 / / Screw 2.4mm Matrixmandible St 10mm - [id number] Implanted:Qty: 2 on 01/06/2024 by Jyothi Vega MD at [facility]-[id number] 01/05/2025 [id number] .01 / / Screw 2.4mm Matrixmand[employer] [address] 12mm - [id number] Implanted:Qty: 2 on 01/06/2024 by Jyothi Vega MD at [facility]-[id number] 01/05/2025 [id number] .01 / / Screw 2.4mm Matrixmandible St 14mm - [id number] Implanted:Qty: 2 on 01/06/2024 by Jyothi Vega MD at [facility]-[id number] 01/05/2025 [id number] .01 / / Procedures Procedure Name Priority Date/Time Associated Diagnosis Comments COMPREHENSIVE METABOLIC PANEL, PLASMA Routine 12/13/2024 1:31 PM EDT 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, 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, face and neck (CMS/HCC) CBC WITH AUTO DIFFERENTIAL Routine 12/13/2024 1:31 [...] nodes of head, face and neck (CMS/HCC) COMPLETE DENTURE -MANDIBULAR- IN PROCESS Routine 12/13/2024 9:00 AM EDT Edentulism COMPLETE DENTURE - MAXILLARY IN PROCESS Routine 12/13/2024 9:[address] CHEST W IV CONTRAST Routine 7:52 AM EDT Secondary malignant neoplasm lymph nodes of head, face and neck (CMS/HCC) CT SOFT TISSUE NECK W IV CONTRAST Routine 12/13/2024 7:52 AM EDT Secondary malignant neoplasm lymph nodes of head, face and neck (CMS/HCC) DENTAL LAB Routine 12/09/2024 2:24 PM EDT Edentulism COMPLETE DENTURE - MAXILLARY IN PROCESS Routine 12/07/2024 11:15 AM EDT Edentulism DENTAL LAB Routine 11/29/2024 3:40 PM EDT Edentulism COMPLETE DENTURE - MAXILLARY IN PROCESS Routine 11/26/2024 10:45 AM EDT Edentulism DENTAL LAB Routine 11/10/2024 9:[address] GUIDED BIOPSY MUSCLE Routine 11/10/19 4:38 PM EDT Osteomyelitis of thoracic spine (CMS/HCC) MRSA bacteremia FUNGAL CULTURE, TISSUE AND JESUS Routine 11/09/2024 4:35 PM EDT Osteomyelitis of thoracic spine (CMS/HCC) AFB CULTURE, NON RESPIRATORY SOURCE AND ACID FAST STAIN Routine 11/09/2024 4:35 PM EDT Osteomyelitis of thoracic spine (CMS/HCC) TISSUE CULTURE AND GRAM STAIN Routine 11/09/2024 4:35 PM EDT Osteomyelitis of thoracic spine (CMS/HCC) COMPLETE DENTURE - MAXILLARY IN PROCESS Routine 11/09/2024 11:15 AM EDT Edentulism PROTHROMBIN TIME(PT) / INR Routine 11/05/2024 8:45 AM EDT Encounter for other preprocedural examination COMPREHENSIVE METABOLIC PANEL, PLASMA Routine 11/05/2024 8:45 AM EDT Severe protein-calorie malnutrition (CMS/HCC) CBC WITH AUTO DIFFERENTIAL Routine 11/05/2024 8:45 AM EDT Malignant neoplasm of external lower lip MAGNESIUM, PLASMA Routine 11/05/2024 8:4 5 AM EDT Vomiting, unspecified vomiting type, unspecified whether nausea present BLOOD CULTURE (AEROBIC/ANAEROBIC SET) Routine 11/05/2024 8:45 AM EDT Bacteremia Other acute osteomyelitis, other site (CMS/HCC) MR LUMBAR SPINE W AND WO IV CONTRAST Routine 11/01/2024 9:55 AM EDT Osteomyelitis of thoracic spine (CMS/HCC) MRSA bacteremia Lumbar back pain COMPLETE DENTURE -MANDIBULAR- IN PROCESS Routine 10/22/2024 [...] PATIENT Routine 09/23/2024 1:45 PM EDT Edentulism HEMOGLOBIN A1C Add-On 07/22/2024 12:25 PM EDT HEPATITIS C ANTIBODY - ED W/REFLEX TO HCV QUANT PCR STAT 01/16/2024 1:23 AM EDT ED HIV 1/2 ANTIBODY/ANTIGEN SCREEN WITH REFLEX TO HIV I/II DIFFERENTIATION STAT 01/16/2024 1:23 AM EDT from Last 3 Months or Most Recently Relevant to Health Maintenance Results * (ABNORMAL) CBC and Differential (12/13/2024 1:31 PM EDT) Only the most recent of3 resultswithin the time period is included. WBC Count 4.64 3.70 - 10.30 10*3/uL LAB HEMATOLOGY METHOD 12/13/2024 2:14 PM EDT [facility] RBC Count 4.50(L) 4.60 - 6.10 10*6/uL LAB HEMATOLOGY METHOD 12/13/2024 2:14 PM EDT [facility] HGB 12.9(L) 13.7 - 17.5 g/dL LAB HEMATOLOGY METHOD 12/13/2024 2:14 PM EDT [facility] HCT 38.3(L) 40.0 - 51.0 % LAB HEMATOLOGY METHOD 12/13/2024 2:14 PM EDT [facility] Platelet Count 209 155 - 369 10*3/uL LAB HEMATOLOGY METHOD 12/13/2024 2:14 PM EDT [facility] MCV 85 79 - 98 fL LAB HEMATOLOGY METHOD 12/13/2024 2:14 PM EDT [facility] MCH 28.7 26.0 - 32.0 pg LAB HEMATOLOGY METHOD 12/13/2024 2:14 PM EDT [facility] MCHC 33.7 30.7 - 35.5 g/dL LAB HEMATOLOGY METHOD 12/13/2024 2:14 PM EDT [facility] RDW 16.4(H) 11.5 - 14.5 % LAB HEMATOLOGY METHOD 12/13/2024 2:14 PM EDT [facility] MPV 11.5 8.8 - 12.5 fL LAB HEMATOLOGY METHOD 12/13/2024 2:14 PM EDT [facility] nRBC 0.0 <=0.0 per 100 WBCs LAB HEMATOLOGY METHOD 12/13/2024 2:14 PM EDT [facility] Differential Type Automated LAB HEMATOLOGY METHOD 12/13/2024 2:14 PM EDT [facility] Neutrophils % 69 % LAB HEMATOLOGY METHOD 12/13/2024 2:14 PM EDT [facility] Lymphocytes % 23 % LAB HEMATOLOGY METHOD 12/13/2024 2:14 PM EDT [facility] Monocytes % 5 % LAB HEMATOLOGY METHOD 12/13/2024 2:14 PM EDT [facility] Eosinophils % 2 % LAB HEMATOLOGY METHOD 12/13/2024 2:14 PM EDT [facility] Basophils % 1 % LAB HEMATOLOGY METHOD 12/13/2024 2:14 PM EDT [facility] Immature Granulocytes % 0 % LAB HEMATOLOGY METHOD 12/13/2024 2:14 PM EDT [facility] Neutrophils Absolute 3.21 1.60 - 6.10 10*3/uL LAB HEMATOLOGY METHOD 12/13/2024 2:14 PM EDT [facility] Lymphocytes Absolute 1.07(L) 1.20 - 3.90 10*3/uL LAB HEMATOLOGY METHOD 12/13/2024 2:14 PM EDT [facility] Monocytes Absolute 0.22(L) 0.30 - 0.90 10*3/uL LAB HEMATOLOGY METHOD 12/13/2024 2:14 PM EDT [facility] Eosinophils Absolute 0.09 0.00 - 0.50 10*3/uL LAB HEMATOLOGY METHOD 12/13/2024 2:14 PM EDT [facility] Basophils Absolute 0.04 0.00 - 0.10 10*3/uL LAB HEMATOLOGY METHOD 12/13/2024 2:14 PM EDT [facility] Immature Granulocytes Absolute 0.01 0.00 - 0.06 10*3/uL LAB HEMATOLOGY METHOD 12/13/2024 2:14 PM EDT [facility] Blood Venous blood specimen / Unknown Venipuncture / Unknown 12/13/2024 1:31 PM EDT 12/13/2024 1:[address] [facility] - 12/13/2024 2:14 PM EDT Therapeutic decision making should be based on absolute values, rather than percentages. us Viky Menon MD LAB BLOOD ORDERABLES Final R esult [facility] [address] [place] [address] * Thyroid Stimulating Hormone, Plasma (12/13/2024 1:31 PM EDT) [facility] Thyroid Stimulating Hormone, Plasma 1.00 0.40 - 4.20 uIU/mL 12/13/2024 2:31 PM EDT [facility] Blood Venous blood specimen / Unknown Venipuncture / Unknown 12/13/2024 1:31 PM EDT 12/13/2024 1:43 PM EDT us Viky Menon MD LAB BLOOD ORDERABLES Final R esult Performing Organization Address [facility]/ZIP Co de Phone Number [facility] [address] [place] [address] * (ABNORMAL) Comprehensive Metabolic Panel, Plasma (12/13/2024 1:31 PM EDT) Only the most recent of3 resultswithin the time period is included. [facility] Glucose, Plasma 121(H) 74 - 99 mg/dL 12/13/2024 2:31 PM EDT [facility] BUN, Plasma 15 7 - 21 mg/dL 12/13/2024 2:31 PM EDT [facility] Creatinine, Plasma 0.72 0.70 - 1.20 mg/dL 12/13/2024 2:31 PM EDT [facility] BUN/Creatinine Ratio 21 12/13/2024 2:31 PM EDT [facility] Sodium, Plasma 137 136 - 145 mmol/L 12/13/2024 2:31 PM EDT [facility] Potassium, Plasma 3.9 3.6 - 4.9 mmol/L 12/13/2024 2:31 PM EDT [facility] Chloride, Plasma 102 97 - 107 mmol/L 12/13/2024 2:31 PM EDT [facility] CO2, Plasma 24 22 - 29 mmol/L 12/13/2024 2:31 PM EDT [facility] Anion Gap 11 6 - 16 mmol/L 12/13/2024 2:31 PM EDT [facility] Total Calcium, Plasma 9.2 8.9 - 10.2 mg/dL 12/13/2024 2:31 PM EDT [facility] Total Protein 7.3 6.3 - 7.9 g/dL 12/13/2024 2:31 PM EDT [facility] Albumin, Plasma 3.7 3.5 - 5.2 g/dL 12/13/2024 2:31 PM EDT [facility] AST, Plasma 24 10 - 50 U/L 12/13/2024 2:31 PM EDT [facility] ALT, Plasma 12 10 - 50 U/L 12/13/2024 2:31 PM EDT [facility] Alkaline Phosphatase, Plasma 90 40 - 115 U/L 12/13/2024 2:31 PM EDT [facility] Total Bilirubin, Plasma 0.9 0.2 - 1.1 mg/dL 12/13/2024 2:31 PM EDT [facility] eGFRcr 111.3 mL/min/1.7 3m*2 12/13/2024 2:31 PM EDT [facility] Comment:Reported eGFRcr in m L/min/1.73m2 is based the CKD-EPI 2020 equation that does not use a race coefficient. Blood Venous blood specimen / Unknown Venipuncture / Unknown 12/13/2024 1:31 PM EDT 12/13/2024 1:43 PM EDT us Viky Menon MD LAB BLOOD ORDERABLES Final R esult [facility] [address] [place] [address] * CT Chest w IV Contrast (12/13/2024 [...] on 12/13/2024 8:22 AM Imer Sevilla MD IM CT PROCEDURES Final Result * CT Soft [...] node size. Case finalized on 12/14/24 00:21 EST Da Blackwell MD This report has been electronically [...] error, please notify the sender immediately at [phone] and permanently delete the original report and destroy any copies or printouts. Narrative 12/14/2024 12:21 AM EDT [facility] - Phone Outpatient NAME: Henny Daniels DATE OF EXAM: 12/13/2024 Patient No: [id number] Physician: Apurva Date of : 1975 Examination: Soft tissue neck CT with contrast Symptoms/Reason For Exam (entered by technologist): [facility] head and neck Tech Notes (entered [...] of fluid identified at the hardware. The jamul remaining left mandibular ramus/angle region demonstrates no bony resorption or periosteal reaction. The jamul left parasymphyseal mandible area also demonstrates no [...] Jr DATE OF EXAM: 12/13/2024 Patient No: [id number] Physician: Apurva Date of : 1975 Examination: Soft tissue neck CT with contrast Symptoms/Reason For Exam (entered by technologist): [facility] head and neck Tech Notes (entered [...] pocket of fluididentified at the hardware. The jamul remaining left mandibular ramus/angle region demonstrates nobony resorption or periosteal reaction. The jamul left parasymphysealmandible area also demonstrates no bony [...] axialdimensions, unchanged. Enlarged left supraclavicular lymph node [id number], series 3 and 1.4 x 1.4 cm [...] in error, pleasenotify the sender immediately at [phone] and permanently delete theoriginal report and destroy any copies or printouts. Imer Sevilla MD IMG CT PROCEDURES Final Result * DENTAL LAB (12/09/2024 2:24 PM EDT) [place] 0.00 $ Comment:[facility] [place] Inv# [id number] Kelsey Cerda DMD DENTAL LAB ORDERABLES Final Result * DENTAL LAB (11/29/2024 3:40 PM EDT) [place] 100.00 $ Comment:[facility] [place] Inv# [id number] Kelsey Cerda DMD DENTAL LAB ORDERABLES Final Result * DENTAL LAB (11/10/2024 9:17 AM EDT) [place] 120.00 $ Comment:[facility] [place] Inv# [id number] Kelsey Cerda DMD DENTAL LAB ORDERABLES Final Result * CT Guided Biopsy Muscle (11/09/2024 4:38 [...] chemotherapy and XRT. Patient recently admitted at [facility] from 07/01 - 07/08 for MRSA bacteremia, [...] lumbar region. Able to ambulate independently. TECHNIQUE: Farm Management Adviser: Dionte Stone MD. Medications: IV conscious sedation [...] See procedure details for findings. COMPLICATION: None Brittney Johnson MD IMG CT PROCEDURES E dited Result - Final * Fungal Culture, Tissue and JESUS (11/09/2024 4:35 PM EDT) Culture Reading Mycological 4 Weeks No Fungal Growth at 4 Weeks 12/07/2024 8:28 AM EDT [facility] JESUS No fungal elements seen 12/07/2024 8:28 AM EDT [facility] Tissue Tissue specimen / Unknown Non-blood Collection / Unknown 11/09/2024 4:35 PM EDT 11/09/2024 5:17 PM EDT Brittney Johnson MD LAB MICROBIOLOGY - GENERAL ORDERABLES Final Result Performing Organization Address City/[facility]/ZIP Co de Phone Number [facility] [address] [place] [address] * Tissue Culture and Gram Stain (11/09/2024 4:35 PM EDT) Culture No growth at day 4 2024 6:11 AM EDT [facility] Gram Stain Result Rare Polymorphonuclear leukocytes 11/13/2024 6:11 AM EDT [facility] Gram Stain Result No organisms seen 11/13/2024 6:11 AM EDT [facility] Tissue Tissue specimen / Unknown Non-blood Collection / Unknown 11/09/2024 4:35 PM EDT 11/09/2024 5:17 PM EDT Brittney Johnson MD LAB MICROBIOLOGY - GENERAL ORDERABLES Final Result Performing Organization Address [facility] Co de Phone Number [facility] [address] [place] [address] * Blood Culture (Aerobic/Anaerobet Set) (11/05/2024 8:45 AM EDT) Culture No growth at day 5 SABINA 11/10/2024 10:01 AM EDT [facility] Blood Structure of antecubital vein / Unknown Venipuncture / Unknown 11/05/2024 8:45 AM EDT 11/05/2024 8:45 AM EDT Viky Menon MD LAB MICROBIOLOGY - GENERAL O RDERABLES Final Result [facility] [address] [place] [address] * (ABNORMAL) Prothrombin Time/INR (11/05/2024 8:45 AM EDT) Prothrombin Time 14.4(H) 12.0 - 14.3 sec LAB COAGULATION METHOD 11/05/2024 10:20 AM EDT [facility] INR 1.1 0.9 - 1.1 LAB COAGULATION METHOD 11/05/2024 10:20 AM EDT [facility] Blood Venous blood specimen / Unknown Venipuncture / Unknown 11/05/2024 8:45 AM EDT 11/05/2024 8:45 AM EDT Narrative [facility] - 11/05/2024 10:20 AM EDT OPTIMAL INR RANGES FOR PATIENT ON ORAL ANTICOAGULANT THERAPY Prevention of venous thromboembolism INR 2.0 to 3.0 In patients with heart disease: Atrial fibrillation INR 2.0 to 3.0 Valvular heart disease INR 2.0 to 3.0 Tissue heart valves INR 2.0 to 3.0 Mechanical prosthetic valves INR 2.5 to 3.5 Prevention of recurrent MT INR 2.5 to 3.5 Tessa Rockwell APRN LAB BLOOD ORDERABLES Final R esult Performing Organization Address City/[facility] [place] [address] * Magnesium, Plasma (11/05/2024 8:45 AM EDT) Magnesium, Plasma 2.2 1.9 - 2.4 mg/dL 11/05/2024 10:45 AM EDT [facility] Blood Venous blood specimen / Unknown Venipuncture / Unknown 11/05/2024 8:45 AM EDT 11/05/2024 8:45 AM EDT us Viky Menon MD LAB BLOOD ORDERABLES Final R esult Performing Organization Address City/[facility] [place] [place] [address] * MR Lumbar Spine w and wo [...] error, please notify the sender immediately at [phone] and permanently delete the original report and destroy any copies or printouts. Narrative 11/01/2024 9:42 PM EDT [facility] - Phone Outpatient NAME: Henny Daniels Jr DATE OF EXAM: 11/01/2024 Patient No: [id number] Physician: Alex^Brittney Date of : 1975 Past [...] Jr DATE OF EXAM: 11/01/2024 Patient No: [id number] Physician: Alex^Brittney Date of : 1975 Past [...] protrusion with mass-effect on the foraminal left [id number] root. No lateral recess stenosis. L4-L5: Moderate [...] in error, pleasenotify the sender immediately at [phone] and permanently delete theoriginal report and destroy any copies or printouts. us Brittney Johnson MD IMG MRI PROCEDURES Final Result * (ABNORMAL) C-reactive protein (10/21/2024 9:26 AM EDT) CRP, Plasma 36.2(H) <=8.0 mg/L 10/21/2024 1:07 PM EDT [facility] Blood Venous blood specimen / Unknown Venipuncture / Unknown 10/21/2024 9:26 AM EDT 10/21/2024 9:29 AM EDT Narrative [facility] - 10/21/2024 1:07 PM EDT This CRP test is appropriate for assessment of infection, systemic inflammation and/or tissue injury. To assess cardiovascular disease risk order high sensitivity CRP (CRPH). us Brittney Johnson MD LAB BLOOD ORDERABLE S Final Result [facility] [address] [place] [address] * MR Thoracic Spine w and wo [...] COMMUNICATION: Report sent to Dr. Salcedo via [employer]iq at 9:05 AM on October 15.. Drafted [...] T12 and with localized epidural phlegmon about [id number] level. No discrete abscess. Secondary focal kyphosis. CRITICAL RESULT: No. COMMUNICATION: Report sent to Dr. Salcedo via [employer]iq at 9:05 AM on October 15.. Drafted by Roberto Flores on 10/15/2024 8:33 AM Final report signed by Roberto Flores on 10/15/2024 9:03 AM Matias Eldridge MD IMG MRI PROCEDURES Final Resul t * Hemoglobin A1c (07/22/2024 12:25 PM EDT) Hemoglobin A1c 5.3 <5.7 % 07/22/2024 7:12 PM EDT [facility] Blood Venous blood specimen / Unknown Venipuncture / Unknown 07/22/2024 12:25 PM EDT 07/22/2024 12:27 PM EDT Narrative [facility] - 07/22/2024 7:12 PM EDT HA1C Interpretive Data: Diagnosis of Diabetes: Diabetic > or = 6.5% Pre-diabetic 5.7 to 6.4% Non-diabetic < or = 5.6% Glycemic Targets for Type I and Type II Diabetics: Non- Adults <7.0% Adults <6.0% Children and Adolescents <7.5% Source: [place] [employer]. Standards of medical care in diabetes,2017. Diabetes Care.2017:40 (suppl 1):S1-S135. Reji Daly MD LAB BLOOD ORDERABLES Final Resu lt Performing Organization Address City/[facility]/ZIP Co de Phone Number [facility] [address] [place] [address] * ED HIV 1/2 Antibody/Antigen Screen w/Reflex to HIV 1/2 Differentiation (01/16/2024 1:23 AM EDT) Pathologist [facility] HIV 1 & 2 Antibody/Antigen Screen Non Reactive Non Reactive 01/16/2024 2:23 AM EDT [facility] Comment:Screening for HIV 1 & 2 antibodies, and P24 antigen is NONREACTIVE. No confirmatory testing is required. Blood Venous blood specimen / Unknown Venipuncture / Unknown 01/16/2024 1:23 AM EDT 01/16/2024 1:42 AM EDT us Leon Bob MD LAB BLOOD ORDERABLES Final Re sult Performing Organization Address [facility] Co de Phone Number [facility] [address] [place] [address] * Hepatitis C Antibody - ED (01/16/2024 1:23 AM EDT) Pathologist [facility] Hepatitis C Antibody Negative Negative 01/16/2024 2:23 AM EDT [facility] Blood Venous blood specimen / Unknown Venipuncture / Unknown 01/16/2024 1:23 AM EDT 01/16/2024 1:42 AM EDT us Leon Bob MD LAB BLOOD ORDERABLES Final Re sult Performing Organization Address [facility] Co de Phone Number [facility] [address] [place] [address] from Last 3 Months or Most Recently Relevant to Health Maintenance Additional Health Concerns Infection Onset Date Last Indicated 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 02/19/2024 Insurance [employer] [facility] MEDICAID [facility] MEDICAID DENTAL Advance Directives * Full [...] Patient has decision-making capacity? Yes Care Teams Web Graphic Designer Relationship Specialty Start Date End Date Carson Ibrahim MD [address] [facility] [address] [place] [address] PCP - General 11/20/23 Imer Sevilla MD 800 [facility] [address] [place] [address] Consulting Physician Radiation Oncology 02/27/24 Viky Menon MD 800 [facility] [address] [place] [address] Consulting Physician Medical Oncology 04/21/24 Amelia Freeman, RN Registered Nurse Hematology and Oncology 05/13/24
--- OUTSIDE RECORDS SUMMARY | 2024-12-16 09:13 | XMS_ITS ---
Author Organization [facility] Address [address] 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 Past Treatment and Therapy Plans Infusion Treatment 1 Plan Name Start Date Discontinue Date Treatment Medications Discontinue Reason Plan Provider (ONC) Med Onc Outpatient Electrolyte Replacement Protocol 05/13/2024 11/19/2024 No medications scheduled. Other (See Comments) Viky Menon MD Oncology Treatment Plan Name Start Date Discontinue [...] Kerma 137.3 mGy 137.3 mGy 0 mGy CTDIvol 92.7 mGy 0 mGy 92.7 mGy Radiation (DLP) 1,351 mGy-cm 0 mGy-cm 1,351 mGy-cm Resolved Problems Problem Noted Date Diagnosed Date Resolved Date Osteomyelitis, unspecified 08/12/2024 0 12/13/2024 Acute osteomyelitis of left clavicle 07/22/2024 12/13/2024 CINV (chemotherapy-induced n ausea and vomiting) 02/18/2024 12/12/2024 Wound infection after surgery 02/17/2024 02/23/2024 Dermatitis, unspecified 02/11/2024 09/2 04/2024 Vomiting 02/02/2024 12/12/2024 Morbid obesity 01/07/2024 01/07/2024 UTI (urinary tract infection) 01/07/2024 01/07/2024 Type 2 diabetes mellitus 01/07/2024 High blood pressure 01/01/2024 01/07/20
--- OUTSIDE RECORDS SUMMARY | 2024-12-16 09:14 | XMS_ITS | Encounter Summary ---
Author Organization Healthcare Address [address] [place] [id number] Care Team Providers Care Automatic Equipment Technician Name Role Phone Carson Ibrahim MD Primary Care Provider + [phone] Imer Sevilla MD Unavailable Viky Menon MD Unavailable [phone] Amelia Freeman RN Unavailable Unavailable Encounter Details Date Type Department Care Team (Late st Contact Info) Description 10/22/2024 Orders Only [facility] [address] [place] [address] Viky Menon MD 800 [facility] [address] [place] [address] Social History Tobacco Use Types [...] Description 12/21/2024 10:15 AM EDT Office Visit [facility] [address] [place] [address] Kelsey Cerda, DMD [address] [place] [address] 02/10/2025 10:00 AM EST Office Visit [facility] [address] [place] [address] Abel Johnson MD [address] [facility] [address] [place] [address] 03/10/2025 10:00 AM EST Appointment [facility] [address] [place] [address] 03/10/2025 1:15 PM EST Clinical Support [facility] [address] [facility], [address]nd [place] [address] 03/10/2025 2:00 PM EST Appointment [facility] [address] [facility]. [address] [place] [address] Imer Sevilla MD [address] [address] 03/14/2025 3:40 PM EST Office Visit [facility] [address] [facility], [address] [place] [address] Viky Menon MD 800 [facility] [address] [place] [address] Scheduled Procedures Name Priority Associated Diagnoses Date/Ti [...] documented as of this encounter Care Teams Automatic Equipment Technician Relationship Specialty Start Date End Date Carson Ibrahim MD [address] [place] [address] PCP - General 11/20/23 Imer Sevilla MD [address] [address] Consulting Physician Radiation Oncology 02/27/24 Viky Menon MD 800 [facility] Liz Hester [facility] [address] [place] [address] Consulting Physician Medical Oncology 04/21/24 Amelia Freeman, RN Registered Nurse Hematology and Oncology 05/13/24 documented as of this encounter
--- OUTSIDE RECORDS SUMMARY | 2024-12-16 09:14 | XMS_ITS | Encounter Summary ---
Author Organization Healthcare Address [address] [place] [address] Care Team Providers Care Videotape Recording Engineer Name Role Phone Carson Ibrahim MD Primary Care Provider + [phone] Imer Sevilla MD Unavailable Viky Menon MD Unavailable [phone] Amelia Freeman RN Unavailable Unavailable Reason for Visit * Reason Comments Resource Navigation Encounter Details Date Type Department Care Team (Late st Contact Info) Description 10/19/2024 Social Work Psych Oncology [address] [place] [address] Julieta Price Social History Tobacco Use Types [...] drink first t idalia in the morning (EYE-DRY CHAIN WORKER) to steady your nerves or to [...] Call Disease Status: Established Patient Clinic Location: [facility] Disease Type: Head & Neck Services Provided: Clinical Navigation Intervention Level: 2 Units (1 unit = 15 minutes): 1 Narrative: BOTTOM SAW OPERATOR returned miss phone call from pt. Pt stated that pt in need of transportation to appt at ID clinic. BOTTOM SAW OPERATOR informed pt that BOTTOM SAW OPERATOR unable to arrange due to being out of 72 hour window and due to this not being at [facility]. BOTTOM SAW OPERATOR encouraged pt to reach out to ID clinic to see if they may be able to assist. Pt voiced understanding and appreciation for the assistance. No further needs identified. BOTTOM SAW OPERATOR to remain available for any ongoing needs or support. Julieta Price, MORTGAGE CLOSING CLERK, BOTTOM SAW OPERATOR [facility] Psych-Oncology Services documented in this encounter Plan of Treatment Upcoming Encounters Date Type Department Care Team (Late st Contact Info) Description 12/21/2024 10:15 AM EDT Office Visit [facility] [address] [place] [address] Kelsey Cerda, DMD [address] [place] [address] 02/10/2025 10:00 AM EST Office Visit [facility] [address] [facility] [place] [address] Abel Johnson MD [address] [facility] [address] [place] [address] 03/10/2025 10:00 AM EST Appointment [facility] [address] [place] [address] 03/10/2025 1:15 PM EST Clinical Support [facility] [address] [facility], [address]nd [place] [address] 03/10/2025 2:00 PM EST Appointment [facility] [address] [facility]. [address] [place] [address] Imer Sevilla MD 800 [facility] [address] [place] [address] 03/14/2025 3:40 PM EST Office Visit [facility] [address] [facility], [address] [place] [address] Viky Menon MD 800 [facility] [address] [place] [address] Scheduled Procedures Name Priority Associated [...] documented as of this encounter Care Teams Videotape Recording Engineer Relationship Specialty Start Date End Date Carson Ibrahim MD [address] [place] [place] [address] PCP - General 11/20/23 Imer Sveilla MD 800 [facility] [address] [place] [address] Consulting Physician Radiation Oncology 02/27/24 Viky Menon MD 800 [facility] [address] [place] [address] Consulting Physician Medical Oncology 04/21/24 Amelia Freeman, RN Registered Nurse Hematology and Oncology 05/13/24 documented as of this encounter
--- OUTSIDE RECORDS SUMMARY | 2024-12-16 09:14 | XMS_ITS | Encounter Summary ---
Author Organization Healthcare Address [address] [place] [address] Care Team Providers Care Shirt Creaser Name Role Phone Carson Ibrahim MD Primary Care Provider + [phone] Imer Sevilla MD Unavailable Viky Menon MD Unavailable +[phone] Amelia Freeman RN Unavailable Unavailable Encounter Details Date Type Department Care Team (Late st Contact Info) Description 06/30/2024 Orders Only External Location [address] [place] [address] Provider, External Social History Tobacco Use Types [...] in a chcf (including now)? No 01/08/2024 CAGE ASSESSMENT Answer [...] drink first t idalia in the morning (EYE-YARDER OPERATOR) to steady your nerves or to get rid of a hangover? 0 02/16/2024 CAGE Questionnaire Score 0 024 Utilities Answer Date Recorded In the past 12 months has th e [employer], gas, oil, or water company threatened to [...] Visit [place] [facility] [address] [place] [address] Kelsey Cerda, DMD [address] [facility] [address] [place] [address] 02/10/2025 10:00 AM EST Office Visit [facility] [address] [place] [address] Abel Johnson MD [address] [facility] [address] [place] [address] 03/10/2025 10:00 AM EST Appointment P[facility] G Radiology [address] [place] [address] 03/10/2025 1:15 PM EST Clinical Support Pav [facility] Neck & Respiratory 800 [facility], 2nd [place] [address] 03/10/2025 2:00 PM EST Appointment P[facility] CC Radiation 800 [facility]. [id number] [place] [address] Imer Sevilla MD 800 [facility] [address] [place] [address] 03/14/2025 3:40 PM EST Office Visit [facility] Neck & Respiratory 800 [facility], 2nd [place] [address] Viky Menon MD 800 [facility] Liz [facility] [address] [place] [address] Scheduled Procedures Name Priority Associated Diagnoses Date/Ti [...] Radiographic Rebecca ging 06/30/2024 4:38 PM EDT External Provider IMG XR PROCEDURES Final Result documented in this encounter Visit Diagnoses Not on filedocumented in this encounter Additional Health Concerns Infection Onset Date 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 02/19/2024 C. difficile 10/20/2024 10/20/2024 11/09/2024 1:06 PM EDT Assessment Noted Time A fall risk assessment has been complete d for the patient 06/17/2024 9:31 AM EDT A Body Mass Index follow-up plan has been documented for the patient 05/13/2024 11:53 AM EST documented as of this encounter Care Teams Shirt Creaser Relationship Specialty Start Date End Date Carson Ibrahim MD 1210 [facility] [address] [place] [address] PCP - General 11/20/23 Imer Sevilla MD [address] [facility] [address] [place] [address] Consulting Physician Radiation Oncology 02/27/24 Viky Menon MD [address]ester [facility] [address] [place] [address] Consulting Physician Medical Oncology 04/21/24 Amelia Freeman, RN Registered Nurse Hematology and Oncology 05/13/24 documented as of this encounter
--- OUTSIDE RECORDS SUMMARY | 2024-12-16 09:14 | XMS_ITS | Encounter Summary ---
Author Organization Healthcare Address [address] [place] [address] Care Team Providers Care Agency Development Manager Name Role Phone Carson Ibrahim MD Primary Care Provider [phone] Imer Sevilla MD Unavailable Viky Menon MD Unavailable [phone] Amelia Freeman RN Unavailable Unavailable Encounter Details Date Type Department Care Team (Late st Contact Info) Description 07/05/2024 Orders Only External Location [address] [place] [address] Carson Ibrahim MD 1210 [facility] [address] [place] [address] Social History Tobacco Use Types [...] in a mcfp (including now)? No 01/08/2024 CAGE ASSESSMENT Answer [...] drink first t idalia in the morning (EYE-HORSE SHOW JUDGE) to steady your nerves or to get [...] Upcoming Encounters Date Type Department Care Team ([facility] st Contact Info) Description 12/21/2024 10:15 AM EDT Office Visit [place] [facility] [address] [place] [address] Kelsey Cerda, DMD [address] [facility] [address] [place] [address] 02/10/2025 10:00 AM EST Office Visit [facility] [address] [place] [address] Abel Johnson MD 3101 [facility] [address] [place] [address] 03/10/2025 10:00 AM EST Appointment PAV G Radiology [address] [place] [address] 03/10/2025 1:15 PM EST Clinical Support Pav CC Head, Neck & Respiratory 800 [facility], 2nd [place] [address] 03/10/2025 2:00 PM EST Appointment PAV CC Radiation 800 [facility]. [id number] [place] [address] Imer Sevilla MD 800 [facility] [address] [place] [address] 03/14/2025 3:40 PM EST Office Visit Pav [facility] Head, Neck & Respiratory 800 [facility], 2nd [place] [address] Viky Menon MD 800 [facility] [address] [place] [address] Scheduled Procedures Name Priority Associated Diagnoses Date/Ti [...] documented as of this encounter Care Teams Agency Development Manager Relationship Specialty Start Date End Date Carson Ibrahim MD [facility] [place] [phone] PCP - General 11/20/23 Imer Sevilla MD 800 [facility] [address] [place] [address] Consulting Physician Radiation Oncology 02/27/24 Viky Menon MD [address] [place] [address] Consulting Physician Medical Oncology 04/21/24 Amelia Freeman, RN Registered Nurse Hematology and Oncology 05/13/24 documented as of this encounter
--- OUTSIDE RECORDS SUMMARY | 2024-12-16 09:14 | XMS_ITS | Encounter Summary ---
Author Organization [facility] Address [address] [place] [address] Care Team Providers Care Market Researcher Name Role Phone Carson Ibrahim MD Primary Care Provider + [phone] Imer Sevilla MD Unavailable Viky Menon MD Unavailable [phone] Amelia Freeman RN Unavailable Unavailable Encounter Details [...] in the past 12 m [facility], were you homeless or living [...] first t idalia in the morning (EYE-DIRECTOR OF MANUFACTURING) to steady your nerves or to get rid of a hangover? 0 07/22/2024 CAGE Questionnaire Score 0 025 Utilities Answer Date Recorded In the past 12 months has [facility] electric, gas, oil, or water [employer] threatened to shut off services in your [...] Description 12/21/2024 10:15 AM EDT Office Visit [place] [facility] [address] [place] [address] Kelsey Cerda, DMD [address] [facility] [address] [place] [address] 02/10/2025 10:00 AM EST Office Visit [facility] [address] [place] [address] Abel Johnson MD 3101 [facility] [address] [place] [address] 03/10/2025 10:00 AM EST Appointment PAV G Radiology [address] [place] [address] 03/10/2025 1:15 PM EST Clinical Support Pav CC Head, Neck & Respiratory 800 [facility], [address]nd [place] [address] 03/10/2025 2:00 PM EST Appointment P[facility] CC Radiation 800 [facility]. [id number] [place] [address] Imer Sevilla MD 800 [facility] [address] [place] [address] 03/14/2025 3:40 PM EST Office Visit Pav [facility] Head[facility] Neck & Respiratory 800 [facility], 2nd [place] [address] Viky Menon MD 800 [facility] [address] [place] [address] Scheduled Procedures Name Priority Associated Diagnoses Date/Ti [...] as of this encounter Care Teams Market Researcher Relationship Specialty Start Date End Date Carson Ibrahim MD [address] [place] [address] PCP - General 11/20/23 Imer Sevilla MD [address] [facility] [address] [place] [address] Consulting Physician Radiation Oncology 02/27/24 Viky Menon MD 800 [facility] Liz [facility] [address] [place] [address] Consulting Physician Medical Oncology 04/21/24 Amelia Freeman, RN Registered Nurse Hematology and Oncology 05/13/24 documented as of this encounter
--- OUTSIDE RECORDS SUMMARY | 2024-12-16 09:14 | XMS_ITS | Encounter Summary ---
Author Organization Healthcare Address [address] [place] [address] Care Team Providers Care Double Ending Machine Operator Name Role Phone Carson Ibrahim MD Primary Care Provider [phone] Imer Sevilla MD Unavailable Viky Menon MD Unavailable [phone] Amelia Freeman RN Unavailable Unavailable Reason for Visit * Reason Onset Date Comments Prior-authorization/insurance Verification 10/22 Encounter Details Date Type Department Care Team (Late st Contact Info) Description 10/22/2024 Telephone [facility] [address] [place] [address] Nabil Gaitan, PharmD Prior-authorization/ins urance [...] any time in the past 12 m [facility], were you homeless or living [...] t idalia in the morning (EYE-DIRECTOR OF CORPORATE SALES) to steady your nerves or to get [...] Visit [facility] [address] [place] [address] Kelsey Cerda, DMD [address] [place] [address] 02/10/2025 10:00 AM EST Office Visit [facility] [address] [facility] [place] [address] Abel Johnson MD 3101 [facility] [address] [place] [address] 03/10/2025 10:00 AM EST Appointment P[facility] G Radiology [address] [place] [address] 03/10/2025 1:15 PM EST Clinical Support Pav CC Head, Neck & Respiratory 800 [facility], 2nd [place] [address] 03/10/2025 2:00 PM EST Appointment P[facility] CC Radiation 800 [facility]. [id number] [place] [address] Imer Sevilla MD 800 [facility] [address] [place] [address] 03/14/2025 3:40 PM EST Office Visit Pav [facility] Head[facility] Neck & Respiratory 800 [facility], 2nd [place] [address] Viky Menon MD 800 [facility] [address] [place] [address] Scheduled Procedures Name Priority Associated [...] documented as of this encounter Care Teams Double Ending Machine Operator Relationship Specialty Start Date End Date Carson Ibrahim MD [address] [place] [phone] PCP - General 11/20/23 Imer Sevilla MD 800 [facility] [address] [place] [address] Consulting Physician Radiation Oncology 02/27/24 Viky Menon MD 800 [facility] [address] [place] [address] Consulting Physician Medical Oncology 04/21/24 Amelia Freeman, RN Registered Nurse Hematology and Oncology 05/13/24 documented as of this encounter
--- OUTSIDE RECORDS SUMMARY | 2024-12-16 09:14 | XMS_ITS | Encounter Summary ---
Author Organization [facility] Address [address] [place] [address] Care Team Providers Care X Ray Technician Name Role Phone Carson Ibrahim MD Primary Care Provider + [phone] Imer Sevilla MD Unavailable Viky Menon MD Unavailable [phone] Amelia Freeman RN Unavailable Unavailable Encounter Details [...] in the past 12 m [facility], were you homeless or living [...] drink first t idalia in the morning (EYE-SHIPPING ASSOCIATE) to steady your nerves or to get [...] Visit [facility] [address] [place] [address] Kelsey Cerda, DMD [address] [facility] [address] [place] [address] 02/10/2025 10:00 AM EST Office Visit [facility] 3101 [place] [address] Abel Johnson MD 3101 [facility] [address] [place] [address] 03/10/2025 10:00 AM EST Appointment PAV G Radiology [address] [place] [address] 03/10/2025 1:15 PM EST Clinical Support Pav CC Head, Neck & Respiratory [address] , 2nd [place] [address] 03/10/2025 2:00 PM EST Appointment P[facility] CC Radiation [address] [place] [address] Imer Sevilla MD [address] [place] [address] 03/14/2025 3:40 PM EST Office Visit Pav [facility] Head, Neck & Respiratory [address] , 2nd [place] [address] Viky Menon MD [address] [facility] [address] [place] [address] Scheduled Procedures Name Priority Associated Diagnoses Date/Ti [...] documented as of this encounter Care Teams X Ray Technician Relationship Specialty Start Date End Date Carson Ibrahim MD [address] [place] [address] PCP - General 11/20/23 Imer Sevilla MD [address] [facility] [address] [place] [address] Consulting Physician Radiation Oncology 02/27/24 Viky Menon MD [address] [facility] [address] [place] [address] Consulting Physician Medical Oncology 04/21/24 Amelia Freeman, RN Registered Nurse Hematology and Oncology 05/13/24 documented as of this encounter
--- OUTSIDE RECORDS SUMMARY | 2024-12-16 09:14 | XMS_ITS | Encounter Summary ---
Author Organization Healthcare Address [address] [place] [address] Care Team Providers Care Appeals Board Referee Name Role Phone Carson Ibrahim MD Primary Care Provider + [phone] Imer Sevilla MD Unavailable Viky Menon MD Unavailable [phone] Amelia Freeman RN Unavailable Unavailable Encounter Details Date Type Department Care Team (Late st Contact Info) Description 10/21/2024 Telephone [place] [id number] [place] [address] [place] [address] [place] [address] 100 [place] [address] Social History Tobacco Use Types [...] first t idalia in the morning (EYE-ROLL EDGE STITCHER HAND) to steady your nerves or to get rid of a hangover? 0 07/22/2024 CAGE Questionnaire Score 0 025 Utilities Answer Date Recorded In the past 12 months has e [employer], gas, oil, or water [employer] threatened to shut off services in your [...] things Not at all 10/21/2024 8:33 AM SHANIT Burt Whitley Feeling down, depressed, or hopeless [...] energy Not at all 10/21/2024 8:33 AM Burt Norman Poor appetite or overeating Not at all [...] Description 12/21/2024 10:15 AM EDT Office Visit [place] [facility] [address] [place] [address] Kelsey Cerda, DMD [address] [facility] [address] [place] [address] 02/10/2025 10:00 AM EST Office Visit [facility] [address] [facility] [place] [address] Abel Johnson MD 3101 [facility] [address] [place] [address] 03/10/2025 10:00 AM EST Appointment PAV G Radiology [address] [place] [address] 03/10/2025 1:15 PM EST Clinical Support Pav CC Head, Neck & Respiratory [address] , 2nd [place] [address] 03/10/2025 2:00 PM EST Appointment PAV CC Radiation [address] [id number] [place] [address] Imer Sevilla MD [address] [place] [address] 03/14/2025 3:40 PM EST Office Visit Pav CC Head, Neck & Respiratory 800 [facility], 2nd [place] [address] Viky Menon MD 800 [facility] Liz Hester [facility] 134 [place] [address] Scheduled Procedures Name Priority Associated Diagnoses Date/Ti [...] documented as of this encounter Care Teams Appeals Board Referee Relationship Specialty Start Date End Date Carson Ibrahim MD [address] [place] [address] PCP - General 11/20/23 Imer Sevilla MD 800 [facility] [address] [place] [address] Consulting Physician Radiation Oncology 02/27/24 Viky Menon MD 800 [facility] Liz Hester [facility] 134 [place] [address] Consulting Physician Medical Oncology 04/21/24 Amelia Freeman, RN Registered Nurse Hematology and Oncology 05/13/24 documented as of this encounter
--- OUTSIDE RECORDS SUMMARY | 2024-12-16 09:14 | XMS_ITS | Encounter Summary ---
Author Organization Healthcare Address [address] [place] [address] Care Team Providers Care Manager Human Resources Name Role Phone Carson Ibrahim MD Primary Care Provider + [phone] Imer Sevilla MD Unavailable Viky Menon MD Unavailable [phone] Amelia Freeman RN Unavailable Unavailable Reason for Visit * Reason Comments Social Work/navigation Follow-up Encounter Details Date Type Department Care Team (Late st Contact Info) Description 12/10/2024 Social Work Psych Oncology [address] [place] [address] Tamar Cruz Social History Tobacco Use Types [...] drink first t idalia in the morning (EYE-INVENTORY AUDITOR) to steady your nerves or to get rid of a hangover? 0 07/22/2024 CAGE Questionnaire Score 0 025 Utilities Answer Date Recorded In the past 12 months has [employer] electric, gas, oil, or water company threatened to shut off services in your home? No 07/28/2024 Sex and Gender Information Value Date Recorded Sex Assigned at Male 01/06/2024 6:14 AM EDT Legal Sex Male 7:47 PM EDT Gender Identity Male 01/06/2024 6:14 AM EDT Sexual Orientation Not on file documented as of this encounter Miscellaneous Notes * Progress Notes - Tamar Cruz - 12/10/2024 2:21 PM EDT Encounter Type: Phone Call Disease Status: Established Patient Clinic Location: [facility] [place] Disease Type: Head & Neck Intervention Level: 1 Units (1 unit = 15 minutes): 1 Narrative: CARDIOPULMONARY PHYSICAL THERAPIST attempted to follow up with missed call from pt. Pt was not available at this time. CARDIOPULMONARY PHYSICAL THERAPIST left a brief non urgent message stating name, nature of call, and contact information for follow up if needed. CARDIOPULMONARY PHYSICAL THERAPIST remains available ongoing prn. Tamar Cruz FOAM FABRICATOR, CARDIOPULMONARY PHYSICAL THERAPIST [phone] * Progress Notes - Tamar Cruz - 12/10/2024 2:21 PM EDT Encounter Type: Phone Call Disease Status: Established Patient Clinic Location: [facility] [place] Disease Type: Head & Neck Services Provided: Clinical Navigation Education Provided: Financial Support/Aid Intervention Level: 2 Units (1 unit = 15 minutes): 2 Narrative: CARDIOPULMONARY PHYSICAL THERAPIST received follow up call from pt inquiring if his transportation was still scheduled for 12/13 ade would like to continue using this service. CARDIOPULMONARY PHYSICAL THERAPIST informed pt that no rides had been cancelled and all previously scheduled rides were still confirmed. Pt was understanding. Pt additionally inquired if he could get additional assistance from [email or web address] for bills. CARDIOPULMONARY PHYSICAL THERAPIST encouraged pt to send copies of bills to be submitted with his referral. Pt also stated that he is having issues with his temporary dentures and inquired who he needed to contact. CARDIOPULMONARY PHYSICAL THERAPIST requested dental tx coordinator reach out to him and also encouraged pt to contact his dental provider. Pt expressed understanding and committed to doing so. Pt denied additional questions or needs at this time. CARDIOPULMONARY PHYSICAL THERAPIST encouraged pt to follow up should additional needs arise. CARDIOPULMONARY PHYSICAL THERAPIST remains available ongoing prn. Tamar Cruz FOAM FABRICATOR, CARDIOPULMONARY PHYSICAL THERAPIST [phone] documented in this encounter Plan of Treatment Upcoming Encounters Date Type Department Care Team (Late st Contact Info) Description 12/21/2024 10:15 AM EDT Office Visit [facility] [address] [place] [address] Kelsey Cerda, DMD [address] [facility] [address] [place] [address] 02/10/2025 10:00 AM EST Office Visit [facility] 3101 [facility] [place] [address] Abel Johnson MD [address] [facility] [address] [place] [address] 03/10/2025 10:00 AM EST Appointment PAV G Radiology [address] [place] [address] 03/10/2025 1:15 PM EST Clinical Support Pav [facility] Head[facility] Neck & Respiratory [address] , 2nd [place] [address] 03/10/2025 2:00 PM EST Appointment PAV CC Radiation [address] [id number] [place] [address] Imer Sevilla MD [address] [place] [address] 03/14/2025 3:40 PM EST Office Visit [facility] Head, Neck & Respiratory 800 [facility], 2nd [place] [address] Viky Menon MD 800 [facility] [address] [place] [address] Scheduled Procedures Name Priority Associated Diagnoses Date/Ti [...] as of this encounter Care Teams Manager Human Resources Relationship Specialty Start Date End Date Carson Ibrahim MD [address] [place] [phone] PCP - General 11/20/23 Imer Sevilla MD 800 [facility] [address] [place] [address] Consulting Physician Radiation Oncology 02/27/24 Viky Menon MD 800 [facility] [address] [place] [address] Consulting Physician Medical Oncology 04/21/24 Amelia Freeman, RN Registered Nurse Hematology and Oncology 05/13/24 documented as of this encounter
--- OUTSIDE RECORDS SUMMARY | 2024-12-16 09:14 | XMS_ITS | Encounter Summary ---
Author Organization Healthcare Address [address] [place] [address] Care Team Providers Care Credit Clerk Name Role Phone Carson Ibrahim MD Primary Care Provider + [phone] Imer Sevilla MD Unavailable Viky Menon MD Unavailable [phone] Amelia Freeman RN Unavailable Unavailable Encounter Details Date Type Department Care Team (Late st Contact Info) Description 06/29/2024 Orders Only External Location [address] [place] [address] Mara Schofield, DO [address] [place] [address] Social History Tobacco Use Types [...] in a usp (including now)? No 01/08/2024 CAGE ASSESSMENT Answer [...] drink first t idalia in the morning (EYE-PATIENT SERVICE ASSOCIATE) to steady your nerves or to [...] Upcoming Encounters Date Type Department Care Team ([facility] st Contact Info) Description 12/21/2024 10:15 AM EDT Office Visit [place] [facility] [address] [place] [address] Kelsey Cerda, DMD [address] [facility] [address] [place] [address] 02/10/2025 10:00 AM EST Office [facility] [address] [place] [address] Abel Johnson MD 3101 [facility] [address] [place] [address] 03/10/2025 10:00 AM EST Appointment PAV G Radiology [address] [place] [address] 03/10/2025 1:15 PM EST Clinical Support Pav [facility] Head, Neck & Respiratory 800 [facility], 2nd [place] [address] 03/10/2025 2:00 PM EST Appointment PAV CC Radiation 800 [facility]. [id number] [place] [address] Imer Sevilla MD 800 [facility] [address] [place] [address] 03/14/2025 3:40 PM EST Office Visit [facility] Head, Neck & Respiratory 800 [facility], 2nd [place] [address] Viky Menon MD 800 [facility] [address] [place] [address] Scheduled Procedures Name Priority Associated Diagnoses Date/Ti [...] 06/29/2024 4:30 PM EDT us Mara N Chandu DO IMG CT PROCEDURES Final Result documented in [...] as of this encounter Care Teams Credit Clerk Relationship Specialty Start Date End Date Carson Ibrahim MD [facility]0 [place] [phone] PCP - General 11/20/23 Imer Sevilla MD 800 [facility] [address] [place] [address] Consulting Physician Radiation Oncology 02/27/24 Viky Menon MD [address] [place] [address] Consulting Physician Medical Oncology 04/21/24 Amelia Freeman, RN Registered Nurse Hematology and Oncology 05/13/24 documented as of this encounter
--- OUTSIDE RECORDS SUMMARY | 2024-12-16 09:14 | XMS_ITS | Encounter Summary ---
Author Organization [facility] Address [address] [id number] Care Team Providers Care Casing Sewer Name Role Phone Carson Ibrahim MD Primary Care Provider + [phone] Imer Sevilla MD Unavailable Viky Menon MD Unavailable [phone] Amelia Freeman RN Unavailable Unavailable Encounter Details Date Type Department Care Team (Late st Contact Info) Description 10/21/2024 Telephone [facility] Ne[facility] Respiratory [address] [place] [address] Viky Menon MD 800 [facility] [address] [place] [address] Social History Tobacco Use Types [...] t idalia in the morning (EYE-DIRECTOR OF OPERATIONS HOME HEALTH) to steady your nerves or to get rid of a hangover? 0 07/22/2024 CAGE Questionnaire Score 0 025 Utilities Answer Date Recorded In the past 12 months has e [employer], gas, oil, or water company threatened [...] and optimal time of day to reach caller:[phone] Note: Please do not reply to this [...] optimal time of day to reach caller: [phone] Note: Please do not reply to this [...] Visit [facility] [address] [place] [address] Kelsey Cerda, DMD [address] [place] [address] 02/10/2025 10:00 AM EST Office Visit [facility] [address] [place] [address] Abel Johnson MD 3101 [facility] [address] [place] [address] 03/10/2025 10:00 AM EST Appointment PAV G Radiology [address] [place] [address] 03/10/2025 1:15 PM EST Clinical Support Pav CC Head, Neck & Respiratory 800 [facility], 2nd [place] [address] 03/10/2025 2:00 PM EST Appointment PAV CC Radiation 800 [facility]. [id number] [place] [address] Imer Sevilla MD 800 [facility] [address] [place] [address] 03/14/2025 3:40 PM EST Office Visit Pav [facility] Head[facility] Neck & Respiratory 800 [facility], 2nd [place] [address] Viky Menon MD 800 [facility] Liz [address] [facility] [address] [place] [address] Scheduled Procedures Name Priority Associated [...] documented as of this encounter Care Teams Casing Sewer Relationship Specialty Start Date End Date Carson Ibrahim MD 1210 [facility] [address] [place] [address] PCP - General 11/20/23 Imer Sevilla MD 800 [facility] [address] [place] [address] Consulting Physician Radiation Oncology 02/27/24 Viky Menon MD [address] [address] Consulting Physician Medical Oncology 04/21/24 Amelia Freeman, RN Registered Nurse Hematology and Oncology 05/13/24 documented as of this encounter
--- OUTSIDE RECORDS SUMMARY | 2024-12-16 09:14 | XMS_ITS | Encounter Summary ---
Author Organization [facility] Address [address] [place] [address] Care Team Providers Care Platform Material Handling Supervisor Name Role Phone Carson Ibrahim MD Primary Care Provider + [phone] Imer Sevilla MD Unavailable Viky Menon MD Unavailable [phone] Amelia Freeman RN Unavailable Unavailable Encounter Details [...] drink first t idalia in the morning (EYE-CARDIAC NURSE PRACTITIONER) to steady your nerves or to get [...] Description 12/21/2024 10:15 AM EDT Office Visit [place] [facility] [address] [place] [address] Kelsey Cerda, DMD [address] [facility] [address] [place] [address] 02/10/2025 10:00 AM EST Office Visit [facility] 3101 [facility] [place] [address] Abel Johnson MD 3101 [facility] [address] [place] [address] 03/10/2025 10:00 AM EST Appointment PAV G Radiology [address] [place] [address] 03/10/2025 1:15 PM EST Clinical Support Pav [facility] Head, Neck & Respiratory [address] , 2nd [place] [address] 03/10/2025 2:00 PM EST Appointment PAV CC Radiation [id number] [place] [address] Imer Sevilla MD [address] [place] [address] 03/14/2025 3:40 PM EST Office Visit Pav [facility] Head[facility] Neck & Respiratory [address] , 2nd [place] [address] Viky Menon MD [address] Hester [facility] [address] [place] [address] Scheduled Procedures Name Priority Associated Diagnoses Date/Ti [...] documented as of this encounter Care Teams Platform Material Handling Supervisor Relationship Specialty Start Date End Date Carson Ibrahim MD [address] [place] [address] PCP - General 11/20/23 Imer Sevilla MD [address] [facility] [address] [place] [address] Consulting Physician Radiation Oncology 02/27/24 Viky Menon MD [address] [facility] 134 [place] [address] Consulting Physician Medical Oncology 04/21/24 Amelia Freeman, RN Registered Nurse Hematology and Oncology 05/13/24 documented as of this encounter
--- OUTSIDE RECORDS SUMMARY | 2024-12-16 09:14 | XMS_ITS | Encounter Summary ---
Author Organization [facility] Address [address] [place] [address] Care Team Providers Care Metrology Manager Name Role Phone Carson Ibrahmi MD Primary Care Provider + [phone] Imer Sevilla MD Unavailable Viky Menon MD Unavailable [phone] Amelia Freeman RN Unavailable Unavailable Encounter Details Date Type Department Care Team (Late st Contact Info) Description 10/18/2024 Telephone [id number] [place] [address] [place] [address] [place] [address] 100 [place] [address] Social History Tobacco Use Types [...] drink first t idalia in the morning (EYE-BELT BUILDER) to steady your nerves or to get rid of a hangover? 0 07/22/2024 CAGE Questionnaire Score 0 025 Utilities Answer Date Recorded In the past 12 months has th e [employer], gas, oil, or water company threatened to [...] Visit [place] [facility] [address] [place] [address] Kelsey Cerda, DMD [address] [place] [address] 02/10/2025 10:00 AM EST Office Visit [facility] [address] [place] [address] Abel Johnson MD [address] [facility] [address] [place] [address] 03/10/2025 10:00 AM EST Appointment PAV G Radiology [address] [place] [address] 03/10/2025 1:15 PM EST Clinical Support Pav CC Head, Neck & Respiratory 800 [facility], 2nd [place] [address] 03/10/2025 2:00 PM EST Appointment PAV CC Radiation 800 [facility]. [id number] [place] [address] Imer Sevilla MD 800 [facility] [address] [place] [address] 03/14/2025 3:40 PM EST Office Visit Pav [facility] Head, Neck & Respiratory 800 [facility], 2nd [place] [address] Viky Menon MD [address] Liz [address]ester [address] [place] [address] Scheduled Procedures Name Priority Associated [...] documented as of this encounter Care Teams Metrology Manager Relationship Specialty Start Date End Date Carson Ibrahim MD 1210 [facility] [address] [place] [address] PCP - General 11/20/23 Imer Sevilla MD [address] [facility] [address] [place] [address] Consulting Physician Radiation Oncology 02/27/24 Viky Menon MD [address] [facility] [address] [place] [address] Consulting Physician Medical Oncology 04/21/24 Amelia Freeman, RN Registered Nurse Hematology and Oncology 05/13/24 documented as of this encounter
--- OUTSIDE RECORDS SUMMARY | 2024-12-16 09:14 | XMS_ITS | Encounter Summary ---
Author Organization [facility] Address [address] [place] [address] Care Team Providers Care Life Teacher Name Role Phone Carson Ibrahim MD Primary Care Provider + [phone] Imer Sevilla MD Unavailable Viky Menon MD Unavailable [phone] Amelia Freeman RN Unavailable Unavailable Encounter Details Date Type Department Care Team (Latest Contact Info) Description 12/07/2024 Travel Social History Tobacco Use Types Packs/Day [...] any time in the past 12 m [facility], were you homeless or living in [...] drink first t idalia in the morning (EYE-GRISTMILL OPERATOR) to steady your nerves or to [...] Description 12/21/2024 10:15 AM EDT Office Visit [place] [facility] [address] [place] [address] Kelsey Cerda, DMD [address] [facility] [address] [place] [address] 02/10/2025 10:00 AM EST Office Visit [facility] [address] [facility] [place] [address] Abel Johnson MD 3101 [facility] [address] [place] [address] 03/10/2025 10:00 AM EST Appointment PAV G Radiology [address] [place] [address] 03/10/2025 1:15 PM EST Clinical Support Pav CC Head, Neck & Respiratory [address] , 2nd [place] [address] 03/10/2025 2:00 PM EST Appointment PAV CC Radiation [id number] [place] [address] Imer Sevilla MD [address] [place] [address] 03/14/2025 3:40 PM EST Office Visit Pav [facility] Head, Neck & Respiratory [address] , 2[address] [place] [address] Viky Menon MD [address] [facility] 134 [place] [address] Scheduled Procedures Name Priority Associated Diagnoses Date/Ti [...] documented as of this encounter Care Teams Life Teacher Relationship Specialty Start Date End Date Carson Ibrahim MD [address] [place] [address] PCP - General 11/20/23 Imer Sevilla MD [address] [facility] [address] [place] [address] Consulting Physician Radiation Oncology 02/27/24 Viky Menon MD [address] [facility] 134 [place] [address] Consulting Physician Medical Oncology 04/21/24 Amelia Freeman, RN Registered Nurse Hematology and Oncology 05/13/24 documented as of this encounter
--- OUTSIDE RECORDS SUMMARY | 2024-12-16 09:14 | XMS_ITS | Encounter Summary ---
Author Organization [facility] Address [address] [place] [address] Care Team Providers Care Extractor Loader And Unloader Name Role Phone Carson Ibrahim MD Primary Care Provider + [phone] Imer Sevilla MD Unavailable Viky Menon MD Unavailable [phone] Amelia Freeman RN Unavailable Unavailable Encounter Details Date Type Department Care Team (Late st Contact Info) Description 10/21/2024 Telephone [id number] [place] [address] [place] [address] [place] [address] 100 [place] [address] Social History Tobacco Use Types [...] drink first t idalia in the morning (EYE-SANITATION TANK WASHER) to steady your nerves or to get rid of a hangover? 0 07/22/2024 CAGE Questionnaire Score 0 025 Utilities Answer Date Recorded In the past 12 months has e [employer], gas, oil, or water [employer] threatened to shut off services in your [...] Visit [place] [facility] [address]nd [place] [address] Kelsey Cerda, DMD [address] [facility] [address] [place] [address] 02/10/2025 10:00 AM EST Office Visit [facility] [address] [facility] [place] [address] Abel Johnson MD 3101 [facility] [address] [place] [address] 03/10/2025 10:00 AM EST Appointment PAV G Radiology [address] [place] [address] 03/10/2025 1:15 PM EST Clinical Support Pav CC Head, Neck & Respiratory [address] 2nd [place] [address] 03/10/2025 2:00 PM EST Appointment PAV CC Radiation [id number] [place] [address] Imer Sevilla MD [address] [place] [address] 03/14/2025 3:40 PM EST Office Visit Pav CC Head, Neck & Respiratory 800 [facility], 2nd [place] [address] Viky Menon MD 800 [facility] Liz Hester [facility] 134 [place] [address] Scheduled Procedures Name Priority Associated Diagnoses Date/Ti [...] documented as of this encounter Care Teams Extractor Loader And Unloader Relationship Specialty Start Date End Date Carson Ibrahim MD [address]10 [place] [address] PCP - General 11/20/23 Imer Sevilla MD 800 [facility] [address] [place] [address] Consulting Physician Radiation Oncology 02/27/24 Viky Menon MD 800 [facility] Liz Hester [facility] 134 [place] [address] Consulting Physician Medical Oncology 04/21/24 Amelia Freeman, RN Registered Nurse Hematology and Oncology 05/13/24 documented as of this encounter
--- OUTSIDE RECORDS SUMMARY | 2024-12-16 09:14 | XMS_ITS | Encounter Summary ---
Author Organization [facility] Address [address] [id number] Care Team Providers Care Photographic Process Screen Maker Name Role Phone Carson Ibrahim MD Primary Care Provider + [phone] Imer Sevilla MD Unavailable Viky Menon MD Unavailable [phone] Amelia Freeman RN Unavailable Unavailable Encounter Details Date Type Department Care Team (Late st Contact Info) Description 10/22/2024 Telephone Pav CC Head, Neck & Respiratory [address] [place] [address] Viky Menon MD 800 [facility] [address] [place] [address] Social History Tobacco Use Types [...] in the past [address] [facility], were you homeless or [...] drink first t idalia in the morning (EYE-PRESIDENT & CEO) to steady your nerves or to get rid of a hangover? 0 07/22/2024 CAGE Questionnaire Score 0 025 Utilities Answer Date Recorded In the past 12 months has th e [employer], gas, oil, or water [employer] threatened to shut off services in your [...] than usual. Several days 11/05/2024 8:08 AM EDT Bettie Wayne Thoughts that you would be better off or hurting yourself in some way Several days 11/05/2024 8:08 AM EDT Bettie Wayne Patient Health Questionnaire -9 Score 9 11/05/2024 8:08 AM EDT Bettie Wayne * Calculated C-SSRS Risk Score (Lifetime/Recent) Answer [...] 11/05/2024 8:08 AM EDT Bettie Olivera * Question Answer Date of Assessment Author [...] 10/22/2024 10:13 AM EDT Meds sent to [facility] pharmacy as patient is here today. PA approved. * Telephone Encounter - Fidelia Alexander - 10/22/2024 9:52 AM EDT Patient Phone Message Reason for Call:[facility] pharmacy called said that the fentaNYL need a PA and they dont have them instock and may not have them until friday Best contact number and optimal time of day to reach caller:[phone] Note: Please do not reply to this message. Follow-up communication and further actions as a result of this message need to be communicated with the patient directly, if the patient is not active onMyChart. If the patient is active on MyChart, they will receive notification of the communication/outcome via MyChart. * Telephone Encounter - Fidelia Alexander - 10/22/2024 9:22 AM EDT Patient Phone Message Reason for Call:Patient called about getting his script fill for his pain med Best contact number and optimal time of day to reach caller:[phone] Note: Please do not reply to this message. Follow-up communication and further actions as a result of this message need to be communicated with the patient directly, if the patient is not active onMyChart. If the patient is active on MyChart, they will receive notification of the communication/outcome via [employer]. documented in this encounter Plan of Treatment Upcoming Encounters Date Type Department Care Team (Late st Contact Info) Description 12/21/2024 10:15 AM EDT Office Visit [facility] Adult Dentistry [address] [place] [address] Kelsey Cerda, DMD [address] [facility] [address] [place] [address] 02/10/2025 10:00 AM EST Office Visit [facility] 3101 [facility] [place] [address] Abel Johnson MD [address]01 [facility] [address] [place] [address] 03/10/2025 10:00 AM EST Appointment PAV G Radiology [address] [place] [address] 03/10/2025 1:15 PM EST Clinical Support Pav CC Head, Neck & Respiratory 800 [facility], 2nd [place] [address] 03/10/2025 2:00 PM EST Appointment PAV CC Radiation [id number] [place] [address] Imer Sevilla MD 800 [facility] [address] [place] [address] 03/14/2025 3:40 PM EST Office Visit Pav CC Head, Neck & Respiratory 800 [facility], 2nd [place] [address] Viky Menon MD 800 [facility] Liz Hester [facility] 134 [place] [address] Scheduled Procedures Name Priority Associated Diagnoses Date/Ti [...] documented as of this encounter Care Teams Photographic Process Screen Maker Relationship Specialty Start Date End Date Carson Ibrahim MD 1210 [facility] [address] [place] [address] PCP - General 11/20/23 Imer Sevilla MD 800 [facility] [address] [place] [address] Consulting Physician Radiation Oncology 02/27/24 Viky Menon MD 800 [facility] [address] [address] Consulting Physician Medical Oncology 04/21/24 Amelia Freeman, RN Registered Nurse Hematology and Oncology 05/13/24 documented as of this encounter
--- OUTSIDE RECORDS SUMMARY | 2024-12-16 09:14 | XMS_ITS | Encounter Summary ---
Author Organization [facility] Address [address] [place] [address] Care Team Providers Care Compounding Pharmacy Technician Name Role Phone Carson Ibrahim MD Primary Care Provider + [phone] Imer Sevilla MD Unavailable Viky Menon MD Unavailable [phone] Amelia Freeman RN Unavailable Unavailable Reason for Visit * Reason Comments Social Work/navigation Follow-up Encounter Details Date Type Department Care Team (Late st Contact Info) Description 12/07/2024 Social Work Psych Oncology 800 [place] [address] Tamar Cruz Social History Tobacco Use Types [...] time in the past 12 m [facility], were you homeless or living [...] drink first t idalia in the morning (EYE-HAND EMBROIDERER) to steady your nerves or to get [...] * Progress Notes - Tamar Cruz - 12/07/2024 10:33 AM EDT Encounter Type: Phone Call Disease Status: Established Patient Clinic Location: [facility] Disease Type: Head & Neck Education Provided: Transportation Intervention Level: 2 Units (1 unit = 15 minutes): 2 Narrative: CANNONEER received call from pt stating his appt today was pushed back to a later time and inquired if his transportation could be scheduled for later time. CANNONEER informed pt that [facility] is unable to change their schedule last minute and informed pt that he would have to come at his scheduled time and wait or reschedule for later date. Pt inquired if CANNONEER could call [facility] and try to have his transportationtime changed for today. CANNONEER contacted [facility] and was informed they could not change the pts bead picker time. CANNONEER relayed this to the pt. Pt stated that he would contact his dental office to inquire of moving his appt and would follow up if additional transportation is needed. CANNONEER expressed understanding and encouraged pt to follow up as needed. CANNONEER remains available ongoing prn. Tamar Cruz SHOVEL OILER, CANNONEER [phone] * Progress Notes - Tamar Cruz - 12/07/2024 10:33 AM EDT CANNONEER received follow up call from pt stating he had arrived for his dental appt and was informed that a different jeep driver would be picking him up following his appt today. CANNONEER confirmed this and informed pt due to his later appt time a different jeep driver would be picking him up while they were in [place]. Pt stated that he did not want to use [employer] for any future transportation and that he would becancelling the remainder of his rides. Pt stated he would drive himself or have someone bring him. CANNONEER briefly discussed with pt rules and policies of using medicaid transportation and informed him that changing transportation times requires advanced notice. However, CANNONEER informed pt that his methodof transportation is his choice. Pt was not receptive to discussion of medicaid rules and policies and stated he would rather drive himself. CANNONEER expressed understanding. There were no additional needs at this time. CANNONEER encouraged pt to follow up should additional needs arise. CANNONEER remains available ongoing prn. Tamar Cruz SHOVEL OILER, CANNONEER [phone] documented in this encounter Plan of Treatment Upcoming Encounters Date Type Department Care Team (Late st Contact Info) Description 12/21/2024 10:15 AM EDT Office Visit [facility] [address] [place] [address] Kelsey Cerda, DMD [address] [place] [address] 02/10/2025 10:00 AM EST Office Visit [facility] [address] [place] [address] Abel Johnson MD 3101 [facility] [address] [place] [address] 03/10/2025 10:00 AM EST Appointment PAV G Radiology [address] [place] [address] 03/10/2025 1:15 PM EST Clinical Support Pav CC Head, Neck & Respiratory 800 [facility], 2nd [place] [address] 03/10/2025 2:00 PM EST Appointment PAV CC Radiation 800 [facility]. [id number] [place] [address] Imer Sevilla MD 800 [facility] [address] [place] [address] 03/14/2025 3:40 PM EST Office Visit [facility] Head, Neck & Respiratory 800 [facility], 2nd [place] [address] Viky Menon MD 800 [facility] 134 [place] [address] Scheduled Procedures Name Priority Associated [...] documented as of this encounter Care Teams Compounding Pharmacy Technician Relationship Specialty Start Date End Date Carson Ibrahim MD [address] [place] [address] PCP - General 11/20/23 Imer Sevilla MD [address] [address] Consulting Physician Radiation Oncology 02/27/24 Viky Menon MD 800 [facility] [address] [facility] 134 [place] [address] Consulting Physician Medical Oncology 04/21/24 Amelia Freeman RN Registered Nurse Hematology and Oncology 05/13/24 documented as of this encounter
--- NOTE | 2024-12-16 09:15 | CA_ITS ---
APPROVED REPORT EXAM: Limited 2D Echocardiogram with contrast Aircraft Inspector: Sridevi Tillman CRT Ht: 5 ft 10 in Wt: 190lbs BSA: 2.04 BP: 101/74 mmHg Indications: HFrEF 45% 08/25/24 Echo Enhancing Agent Indication: Endocardial border delineation Agent(s) / Amount(s) Used: Definity 2 cc Comments: DEFINITY ORDERED M-Mode Dimensions RVDd 2.52 cm (0.9-2.6) LA Diam 3.47 cm (1.9-4.0) LVDd 5.37 cm (3.5-5.7) LVDs 4.03 cm (3.5-5.7) IVSd 1.78 cm (0.6-1.1) PWd 0.70 cm (0.6-1.1) EF (Teich) 48.90% FS 25.00% EDV (Teich) 139.50 mL ESV (Teich) 71.30 mL Other Information Study Quality: Fair Conclusion This is a limited TTE to evaluate for LV systolic function. Limited windows were obtained. Ultrasound enhancing agent is administered. The left ventricle is normal in size. There is increased LV wall thickness. There is mild global hypokinesis present. LVEF is 45%. Ultrasound enhancing agent administration demonstrates no evidence of LV thrombus. Electronically signed by : Mildred Martin MD 12/16/2024 12:47:07
[2024-12-16] MEDS: DEFINITY US ECHO CONTRAST 2ML INJ 2 MG IV (10:13)
== END 2024-12-16 23:59 | disposition home or self-care (01) ==
LOC: RT 09:09
PROVIDERS: PCP Family Medicine; Visit Provider Internal Medicine
DX: I50.23 Acute on chronic systolic (congestive) heart failure (principal); I42.8 Other cardiomyopathies; R93.1 Abnormal findings on diagnostic imaging of heart and coronary circulation
CPT/HCPCS: 93308; Q9957